=== PATIENT | male | born 1955 | race Caucasian/White ===

== ENCOUNTER → 2017-07-14 08:04 | Outpatient (CLI) | payer MEDICAID, SELFPAY ==
[2017-07-14 09:25] LABS: ALB/GLOB Ratio 0.9 RATIO (0.9-2.4); AST(SGOT) 22 U/L (15-37); Alanine Aminotransfer ALT/SGPT 31 U/L (16-61); Albumin, Serum 3.3 g/dL (3.2-5.0); Alkaline Phosphatase 125 U/L (45-117); Anion Gap 9 (5-15); BUN 17 mg/dL (7-18); BUN/Creat Ratio 11.1 RATIO (10-20); Calcium,Total 8.9 mg/dL (8.5-10.1); Chloride 98 mmol/L (98-107); Creatinine, Serum 1.53 mg/dL (0.70-1.30); EST Glomerular Filtration Rate 49 mL/min (>60); Est Glom Filt Rate - Afr Amer 59 mL/min (>60); Globulin 3.6 g/dL (2.2-4.2); Glucose 82 mg/dL (70-110); Potassium 4.2 mmol/L (3.5-5.1); Protein, Total 6.9 g/dL (6.4-8.2); Sodium Level 136 mmol/L (136-145)
== END ==
PROVIDERS: Family Provider Family Medicine; PCP Family Medicine
DX: E89.0 Postprocedural hypothyroidism (principal)
CPT/HCPCS: 36415; 80053

== ENCOUNTER 2017-11-16 00:10 | Observation (INO) | payer MEDICAID, SELFPAY ==
[2017-11-16] VITALS (11 sets, daily range): BP systolic 93–139; BP diastolic 61–97; PULSE 54–94; RESP 14–18; TEMP 36.4–36.9; O2SAT 96–99; BMI 43.7; BMI 42.7
--- NOTE | 2017-11-16 00:45 | RAD_ITS ---
STUDY: X-RAY - LEFT TIBIA AND FIBULA REASON FOR EXAM: Male, 62 years old. Patient fell TECHNIQUE: 4 view(s) of the tibia and fibula were obtained. COMPARISON: None. FINDINGS: A nondisplaced oblique fracture involving the proximal end of the fibula and a large 23 x 4 cm oval-shaped abnormal no abnormal density within the soft tissues in the lateral and medial two thirds of the leg. This may be a hematoma RAD/Tibia & Fibula 2 Views IMPRESSION: A nondisplaced fracture of the proximal shaft of the fibula. A 23 x 4 cm hematoma in the lateral and middle two thirds of the soft tissues of the leg Electronically Signed: Willy Griffin, at 1:29 EDT Tel , Service support ,
[2017-11-16] MEDS: Diphth,Pertuss(Acell),Tet Vac 0.5 ML Vial IM (01:01)
--- NOTE | 2017-11-16 01:16 | CT_ITS ---
STUDY: CT BRAIN WITHOUT CONTRAST REASON FOR EXAM: Male, 62 years old. Altered mental status status post fall RADIATION DOSAGE (If Supplied By Facility): CTDIvol = ( 44.99 ) mGy, DLP = ( 846.73 ) mGycm TECHNIQUE: Transaxial CT imaging of the brain was performed without administration of intravenous contrast material. Individualized dose optimization techniques were used for this CT. COMPARISON: None. FINDINGS: Normal soft tissue structures. Normal calvarium. There is mild moderate cerebral atrophy with widening of the extra-axial spaces and ventricular dilatation. There is mild bilateral periventricular and subcortical white matter hypoattenuation which is symmetric in distribution. Normal basal ganglia and thalami. Normal brainstem. Normal cerebellum. There is no intracranial hemorrhage. There are no findings of an acute ischemic infarction. There is moderate mucoperiosteal thickening of the paranasal sinuses. CT/Brain/Head without Contrast IMPRESSION: 1. No evidence of an acute intracranial abnormality. 2. Mild bilateral periventricular and subcortical white matter chronic small vessel disease with age appropriate cerebral atrophy. 3. Chronic paranasal sinus disease Electronically Signed: Ashok Frye MD at 2:07 EDT Tel , Service support ,
[2017-11-16 01:40] LABS: Absolute Lymphocyte Count 1.65 X10^3/ul (0.83-4.51); Absolute Neutrophil Count 12.6 X10^3/uL (2.0-7.7); Basophil# 0.01 X10^3/uL; Basophil% 0.1 % (0-1); Hematocrit 40.6 % (40-54); Hemoglobin 13.8 g/dl (13.0-16.5); Lymphocyte # 1.65 X10^3/ul (4.0); Lymphocyte % 11.5 % (19-41); Mean Corpuscular Hgb 30.1 pg (27.0-32.0); Mean Corpuscular Volume 88.6 fL (80-94); Mean Platelet Vol. 10.5 fl (6.2-12.0); Monocyte# 0.06 X10^3/uL; Monocyte% 0.4 % (0-10); Neutrophil # 12.59 X10^3/uL (2.7-7.7); Neutrophil % 87.8 % (47-70); Platelet Count 198 K/mm3 (150-450); RBC Distribution Width SD 42.3 fl (35.1-43.9); Red Blood Count 4.58 M/mm3 (4.6-6.2); White Blood Count 14.3 K/mm3 (4.4-11.0)
[2017-11-16 01:43] LABS: International Normalized Ratio 1.1; POSITIVE COUNT NO; POSITIVE DIFFERENTIAL NO; POSITIVE MORPHOLOGY NO; Prothrombin Time (Protime)PT. 13.8 SECONDS (11.7-14.9)
[2017-11-16 01:48] LABS: Anion Gap 10 (5-15); BUN 15 mg/dL (7-18); BUN/Creat Ratio 9.8 RATIO (10-20); Calcium,Total 8.7 mg/dL (8.5-10.1); Chloride 95 mmol/L (98-107); Creatinine, Serum 1.53 mg/dL (0.70-1.30); EST Glomerular Filtration Rate 49 mL/min (>60); Est Glom Filt Rate - Afr Amer 59 mL/min (>60); Estimated Creatinine Clearance 47.81 ml/min; Glucose 122 mg/dL (74-106); Potassium 4.2 mmol/L (3.5-5.1); Sodium Level 131 mmol/L (136-145)
--- NOTE | 2017-11-16 02:43 | ED.VISSUMM ---
- ER Visit Summary Date of Service: 11/16/17 Chief Complaint: [] Left leg pain History of Present Illness: The patient is a 62 M [] reports mechanical fall with immediate left leg pain and inability to ambulate. Patient seems slightly confused and denies hitting his head. Has obvious soft tissue swelling and blistering clearly visible as I enter the room for history and physical examination. Patient reports pain with ambulation however he does not want pain medication at this time. Patient is unsure of his tetanus status. Patient lives alone. Physical Examination: [] Afebrile, vital signs stable. Morbidly obese male no acute distress. Examination of the lower extremity reveals significant hematoma with skin blistering and breakdown on the lateral aspect of the leg. There is tenderness palpation across the tibia/fibula. Pelvis stable. There is no significant knee pain. There is no significant ankle or foot pain. Patient is neurovascularly intact distally. Good distal dorsalis pedis pulse in the left lower extremity. Remainder of exam is unremarkable. Test Results: [] X-rays of the left tibia/fibula reveal proximal fibular fracture. CT of the head negative. CBC, BMP reveal a white blood cell count 14.3. Sodium of 131. Creatinine 1.53. INR 1.1. Emergency Department Course and Treatment: [] Tetanus updated. Treatment Plan: [] Admission for functional decline, wound treatment and evaluation, physical therapy consult, evaluation by orthopedic surgery. Disposition: [] Admit to observation, stable. Impression: [] Left fibula fracture Inability ambulate Left lower extremity soft tissue hematoma with skin blistering This note was generated with [employer]an dictation software. It may contain incorrect words, spelling, and punctuation that were not noted in review of the chart prior to signing ED Disposition - Plan for ED Patient: Chief Complaint: Fall Referrals: Josh Bethea MD [Primary Care Provider] -
--- NOTE | 2017-11-16 03:00 | DT_ITS ---
This patient was seen during an EMR downtime November 17, 2017 - November 24, 2017. This patient may have a combination of paper and electronic documentation or all paper documentation. All documentation is viewable within the e-chart portion of [facility] for each patient visit.
--- NOTE | 2017-11-16 03:07 | PCM.HP.STD ---
Problem List (1) Cellulitis Status: Acute (2) Fracture, fibula Status: Acute (3) HTN (hypertension) Status: Chronic History of Present Illness Date of Admission: 11/16/17 Chief Complaint: Cellulitis The patient is a 62 year old male w/ h/o lower extremity edema, HTN, and CKD III admitted for cellulitis secondary to trauma. Pt had his left leg trapped and when he was trying to walk, he tripped and fall, injuring his left leg. He had dull aching pain with ambulation. Pain was moderate to severe. Pain was constant. he also has a hematoma on his left leg. He had draining blisters in his left leg. Nothing appeared improve the pain. He went to the ED for further evaluation. Past Medical History Past Medical History (Chronic Problems): Chronic Problems HTN (hypertension) (Chronic) Allergies Tetracyclines Allergy (Verified 11/16/17 00:10) Swelling Home Medications: Ambulatory Orders Medication Instructions Recorded Alendronate Sodium 70 mg PO QWEEK 10/23/13 Amiodarone HCl [Cordarone] 200 mg PO DAILY 10/23/13 Calcium Carbonate/Vitamin D3 1 each PO DAILY 10/23/13 [Calcium 500 + D Tablet] Metoprolol Tartrate [Lopressor 50 mg PO BID 10/23/13 (Beta Jaime)] Pravastatin [Pravachol] 20 mg PO QHS 10/23/13 Spironolactone [Aldactone] 25 mg PO BID 10/23/13 Aspirin [Aspirin, Baby] 81 mg PO QHS 11/16/17 Calcium Citrate/Vitamin D3 1 each PO DAILY 11/16/17 [Citracal-Vit D3 200 mg-250 Tab] Indapamide 1.5 mg PO DAILY 11/16/17 Levothyroxine Sodium [Synthroid] 125 mcg PO DAILY 11/16/17 Lives: Alone Smoking Status: Never smoker Tobacco Use: Non-smoker Alcohol: None - *Family History Maternal History Items: No pertinent history Review of Systems Constitutional: Denies: Chills, Fever, Weight Change HEENT: Denies: Head Aches, Sinus Congestion, Sinus Drainage Cardiovascular: Denies: Chest Pain, Palpitations Respiratory: Denies: Cough, Shortness of breath at rest, Sputum production Gastrointestinal: Denies: Abdominal Pain, Nausea, Vomiting Genitourinary: Denies: Dysuria Musculoskeletal: Denies: Joint Pain, Joint Tenderness Skin: Denies: Rash, Wounds Neurological: Denies: Numbness, Tingling, Focal weakness Psychiatric: Denies: Anxiety, Depression, Homicidal Ideations, Suicidal Ideations Hematologic/ Lymphatic: Denies: Easy Bruising, Easy Bleeding VTE Information - Inpt Only VTE Present on Admission: No VTE Mechan Device Prophylaxis: None VTE Pharm Prophylaxis ordered?: No Patient Problems: Active and Suspected Problems Cellulitis (Acute) Fracture, fibula (Acute) - Physical Exam General: Alert, Oriented x3, Cooperative HEENT: Atraumatic, PERRLA, EOMI, Normocephalic Neck: Supple, No JVD, Negative Carotid Bruits Lungs: Clear to auscultation, Normal air movement Cardiovascular: Regular rate, No murmurs Abdomen: Bowel Sounds Present, Soft, Non Tender Extremities: Capillary Refill Less than 3 Seconds, Edema, - - hematoma in the lateral and middle two thirds of the softtissues of the leg Skin: No rashes, No breakdown Musculoskeletal: No Tenderness to Palpation of Joints or Extremities Neurological: Cranial nerves II-XII grossly intact Psych/Mental Status: Normal Affect, Appropriate Vital Signs Temp Pulse Resp BP Pulse Ox 98.5 F 92 17 139/97 H 98 11/16/17 00:11 11/16/17 00:11 11/16/17 00:11 11/16/17 00:11 11/16/17 00:11 Assessment/Plan All Active Problems Cellulitis (Acute) Fracture, fibula (Acute) 62 year old male w/ h/o lower extremity edema, HTN, and CKD III admitted for cellulitis secondary to trauma. 1) Cellulitis: Probably triggered by trauma. Will start cefazolin. Will get wound care. Monitor. 2) Nondisplaced fracture of the proximal shaft of the fibula: Pain controlled. Consulted ortho. Monitor. 3) Hypervolemia hyponatremia: Will start lasix. Monitor.
[2017-11-16] MEDS: 0.9% Normal Saline 1,000 ML 75 ML IV (04:49)
[2017-11-16] MEDS: Cefazolin 1 GM/50 ML BAG IV ×3 (04:49→21:00)
[2017-11-16] MEDS: Levothyroxine 125 MCG Tablet PO (04:50)
[2017-11-16 05:27] LABS: Absolute Lymphocyte Count 0.89 X10^3/ul (0.83-4.51); Absolute Neutrophil Count 11.1 X10^3/uL (2.0-7.7); Basophil# 0.01 X10^3/uL; Basophil% 0.1 % (0-1); Hematocrit 37.5 % (40-54); Hemoglobin 12.9 g/dl (13.0-16.5); Lymphocyte # 0.89 X10^3/ul (4.0); Lymphocyte % 6.8 % (19-41); Mean Corp Hgb Conc 34.4 g/gl (32-36); Mean Corpuscular Volume 90.1 fL (80-94); Mean Platelet Vol. 11.5 fl (6.2-12.0); Monocyte# 1.06 X10^3/uL; Monocyte% 8.1 % (0-10); Neutrophil # 11.14 X10^3/uL (2.7-7.7); Neutrophil % 84.7 % (47-70); Platelet Count 190 K/mm3 (150-450); RBC Distribution Width CV 12.8 % (11.6-14.6); RBC Distribution Width SD 41.7 fl (35.1-43.9); Red Blood Count 4.16 M/mm3 (4.6-6.2); White Blood Count 13.1 K/mm3 (4.4-11.0)
[2017-11-16 05:40] LABS: POSITIVE COUNT NO; POSITIVE DIFFERENTIAL NO; POSITIVE MORPHOLOGY NO
[2017-11-16 05:41] LABS: Anion Gap 9 (5-15); BUN 15 mg/dL (7-18); BUN/Creat Ratio 10.6 RATIO (10-20); Calcium,Total 8.5 mg/dL (8.5-10.1); Chloride 95 mmol/L (98-107); Creatinine, Serum 1.41 mg/dL (0.70-1.30); EST Glomerular Filtration Rate 54 mL/min (>60); Est Glom Filt Rate - Afr Amer 65 mL/min (>60); Estimated Creatinine Clearance 51.88 ml/min; Glucose 113 mg/dL (74-106); Sodium Level 133 mmol/L (136-145)
--- NOTE | 2017-11-16 10:30 | RAD_ITS ---
STUDY: X-RAY - LEFT ANKLE REASON FOR EXAM: Male, 62 years old. Pain and swelling TECHNIQUE: 4 view(s) of the ankle. COMPARISON: None. FINDINGS: The bones are demineralized. Distal tibia and fibula otherwise unremarkable. Normal medial and lateral malleoli. Normal tibiotalar articulation and ankle mortise. Normal visualized talus. Calcaneal heel spurs. The visualized subtalar, talonavicular, calcaneocuboid and tarsal articulations are normal. There is generalized soft tissue swelling and vascular calcifications suggest underlying diabetes. RAD/Ankle min 3 Views IMPRESSION: Demineralization of the osseous structures without demonstrated fracture. However, there is diffuse soft tissue swelling and induration of the soft tissues which suggests there may be an occult injury. Consider further evaluation with CT or MRI. Induration of the soft tissues suggests cellulitis or other inflammatory process. Vascular calcifications suggest underlying diabetes Calcaneal spurs Electronically Signed: Chaim Caldwell MD at 11:44 EDT , Service support ,
[2017-11-16] MEDS: Metoprolol Tartrate 50 MG Tablet PO ×2 (10:38→21:00)
[2017-11-16] MEDS: oxyCODONE 5 MG Tablet PO (10:39)
[2017-11-16] MEDS: Indapamide 2.5 MG Tablet 1.25 MG PO (10:43)
[2017-11-16] MEDS: Calcium Carb/Vitamin D 1 TABLET Tablet PO (10:43)
[2017-11-16] MEDS: Spironolactone 25 MG Tablet PO ×2 (10:43→21:00)
[2017-11-16 11:11] LABS: Bedside Glucose 79 mg/dL (70-110)
--- NOTE | 2017-11-16 11:42 | NURSING ---
Dr Kidd in the room at this time and gave this RN a verbal order to discontinue the IV fluids at this time.
--- NOTE | 2017-11-16 11:48 | PCM.CONS.GEN ---
Reason for Consult Date of Consultation: 11/16/17 Reason for Consultation: Left leg injury. Requested by Dr. Kidd History of Present Illness: The patient is a 62 year old M with history of hypertension, denies diabetes. On multiple medications presents to the emergency department last night after falling down. Patient denies any syncopal episodes. He denies any loss of consciousness or hitting his head. He states after he fell and twisted his leg he had severe pain in his left knee laterally. Pain was worse with weightbearing. He is 8 out of 10 with weightbearing 0 or 1 out of 10 while resting in bed with head elevated. He was transferred to the floor with out immobilization. He does have noted hematoma over the lateral leg where most of his pain is located. Also has associated hematoma down by the ankle both mostly laterally. Denies ankle pain during our initial encounter but reports pain during examination. Denies any numbness and tingling distally. Patient takes aspirin on a daily basis every evening. Past Medical History Past Medical History (Chronic Problems): Chronic Problems HTN (hypertension) (Chronic) Allergies Tetracyclines Allergy (Verified 11/16/17 00:10) Swelling Home Medications: Ambulatory Orders Medication Instructions Recorded Alendronate Sodium 70 mg PO QWEEK 10/23/13 Amiodarone HCl [Cordarone] 200 mg PO DAILY 10/23/13 Calcium Carbonate/Vitamin D3 1 each PO DAILY 10/23/13 [Calcium 500 + D Tablet] Metoprolol Tartrate [Lopressor 50 mg PO BID 10/23/13 (Beta Jaime)] Spironolactone [Aldactone] 25 mg PO BID 10/23/13 Aspirin [Aspirin, Baby] 81 mg PO QHS 11/16/17 Atorvastatin Calcium [Lipitor] 20 mg PO QHS 11/16/17 Calcium Citrate/Vitamin D3 1 each PO DAILY 11/16/17 [Citracal-Vit D3 200 mg-250 Tab] Indapamide 1.25 mg PO DAILY 11/16/17 Levothyroxine Sodium [Synthroid] 125 mcg PO DAILY 11/16/17 Surgical History: - - carpal tunnel release (R ) Lives: Alone Smoking Status: Never smoker Tobacco Use: Non-smoker Alcohol: None - *Family History Maternal History Items: No pertinent history Review of Systems Constitutional: Denies: Chills, Fever, Weight Change HEENT: Denies: Head Aches, Sinus Congestion, Sinus Drainage Cardiovascular: Denies: Chest Pain, Palpitations Respiratory: Denies: Cough, Shortness of breath at rest, Sputum production Gastrointestinal: Denies: Abdominal Pain, Nausea, Vomiting Genitourinary: Denies: Dysuria Musculoskeletal: Reports: - - See HPI Skin: Denies: Rash, Wounds Neurological: Denies: Numbness, Tingling, Focal weakness Psychiatric: Denies: Anxiety, Depression, Homicidal Ideations, Suicidal Ideations Hematologic/ Lymphatic: Denies: Easy Bruising, Easy Bleeding Patient Problems: Active and Suspected Problems Cellulitis (Acute) Fracture, fibula (Acute) Objective: Left tib-fib x-rays show a spiral proximal fibular fracture with minimal displacement. Left ankle fractures with stress view show well aligned ankle fracture there does not seem to be significant increase in medial clear space with stress view the ankle. No bony ankle fractures are noted. - Physical Exam General: Alert, Oriented x3, Cooperative Extremities: - - Left lower extremity: Patient has notable ecchymosis over the lateral leg. There is an area of eschar already developing proximally which is 3 cm x 3 cm. There are some superficial serous blistering. Over this hematoma mild tension on the skin. Compartments are all soft and supple. Patient demonstrates sensation intact light touch SP/DP/sural/tibial/saphenous nerve distribution. Motor is intact dorsiflexion EHL and plantar flexion. There is tenderness palpation over the medial and lateral ankle with ecchymosis over the lateral ankle. There is significant tenderness palpation over the fibular head. Vital Signs Temp Pulse Resp BP Pulse Ox 97.8 F 80 16 100/71 97 11/16/17 08:43 11/16/17 10:38 11/16/17 08:43 11/16/17 08:43 11/16/17 08:43 Oxygen Delivery Method Room Air Weight: 280 lb 13.903 oz Body Mass Index (BMI) 42.7 Intake and Output for Last 24 Hours 11/14/17 11/15/17 11/16/17 23:59 23:59 23:59 Intake Total 1265 / 1265 Output Total 275 / 275 Balance 990 / 990 Laboratory Tests Past 24 Hrs 11/16/17 11/16/17 04:55 04:55 WBC 13.1 H RBC 4.16 L Hgb 12.9 L Hct 37.5 L MCV 90.1 MCH 31.0 MCHC 34.4 RDW 12.8 RDW Differential 41.7 Plt Count 190 MPV 11.5 Immature Gran % (Auto) 0.300 Neut % (Auto) 84.7 H Lymph % (Auto) 6.8 L [place] % (Auto) 8.1 Eos % (Auto) 0.0 Baso % (Auto) 0.1 Absolute Neuts (auto) 11.1 H Absolute Lymphs (auto) 0.89 Total Counted Not Reportable Sodium 133 L Potassium 4.0 Chloride 95 L Carbon Dioxide 29.0 Anion Gap 9 BUN 15 Creatinine 1.41 H Estim Creat Clear Calc 51.88 Est GFR (MDRD) Af Amer 65 Est GFR (MDRD) Non-Af 54 L BUN/Creatinine Ratio 10.6 Glucose 113 H Calcium 8.5 POC Glucose 11/16/17 11:07 POC Glucose 79 Assessment/Plan All Active Problems Cellulitis (Acute) Fracture, fibula (Acute) 1. Left proximal fibular fracture 2. Left ankle sprain 3. Left leg hematoma with superficial blistering At this time I discussed treatment options with the patient. Based on his severe pain with weightbearing I placed the patient in the well-padded splint and recommended nonoperative treatment. Ankle radiographs do not reveal significant ankle or syndesmosis injury. Patient's was split anteriorly so that wound care can monitor the skin on a daily basis. We will consult wound care for management of the superficial blisters. I recommended the patient proceed with aggressive ice and elevation with nonweightbearing on the left lower extremity and follow-up in the office in 2 weeks for repeat radiographs. Patient should have tib-fib and ankle radiographs in the office. Patient states that he knows who is done surgery on him in the past and request follow-up with him. 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 [facility] Office:
[2017-11-16 13:01] LABS: Hemoglobin A1c 5.4 % (4.2-6.3)
--- NOTE | 2017-11-16 13:03 | PCM.PN.HOSP ---
Patient Problems: Active and Suspected Problems Cellulitis (Acute) Fracture, fibula (Acute) Subjective: Patient was seen and examined. No new complaints. Pain is fairly controlled. Seen by orthopedics, splint to be placed. History of hypercalcemia leading to osteoporosis, on bisphosphonate Objective: Physical Exam General: Alert, Oriented x3, Cooperative, obese, not pale no jaundice HEENT: Atraumatic, PERRLA, EOMI, Normocephalic Neck: Supple, No JVD, Negative Carotid Bruits Lungs: Clear to auscultation, Normal air movement Cardiovascular: Regular rate, No murmurs Abdomen: Bowel Sounds Present, Soft, Non Tender Extremities: Capillary Refill Less than 3 Seconds, Edema, - - hematoma in the lateral and middle two thirds of the soft tissues of the leg, left lower extremity is swollen than right Skin: No rashes, No breakdown Musculoskeletal: No Tenderness to Palpation of Joints or Extremities Neurological: Cranial nerves II-XII grossly intact Psych/Mental Status: Normal Affect, Appropriate Vitals/I&O's: Vital Signs Temp Pulse Resp BP Pulse Ox 97.8 F 80 16 100/71 97 11/16/17 08:43 11/16/17 10:38 11/16/17 08:43 11/16/17 08:43 11/16/17 08:43 Oxygen Delivery Method Room Air Weight: 127.4 kg Body Mass Index (BMI) 42.7 Intake and Output for Last 24 Hours 11/14/17 11/15/17 11/16/17 23:59 23:59 23:59 Intake Total 1265 / 1265 Output Total 275 / 275 Balance 990 / 990 Laboratory Results 11/16/17 04:55: WBC 13.1 H, RBC 4.16 L, Hgb 12.9 L, Hct 37.5 L, MCV 90.1, MCH 31.0, MCHC 34.4, RDW 12.8, RDW Differential 41.7, Plt Count 190, MPV 11.5, Immature Gran % (Auto) 0.300, Neut % (Auto) 84.7 H, Lymph % (Auto) 6.8 L, [place] % (Auto) 8.1, Eos % (Auto) 0.0, Baso % (Auto) 0.1, Absolute Neuts (auto) 11.1 H, Absolute Lymphs (auto) 0.89, Total Counted Not Reportable 11/16/17 04:55: Sodium 133 L, Potassium 4.0, Chloride 95 L, Carbon Dioxide 29.0, Anion Gap 9, BUN 15, Creatinine 1.41 H, Estim Creat Clear Calc 51.88, Est GFR (MDRD) Af Amer 65, Est GFR (MDRD) Non-Af 54 L, BUN/Creatinine Ratio 10.6, Glucose 113 H, Calcium 8.5 11/16/17 04:55: Hemoglobin A1c 5.4 11/16/17 11:07: POC Glucose 79 Current Medications Alendronate Sodium (Fosamax) 70 mg PO QWEEK@0600 [facility] Amiodarone HCl (Cordarone) 200 mg PO DAILY@1500 [facility] Calcium/Vitamin D (Os-Alex 500mg + D) 1 tablet PO DAILY [facility] Last Admin: 11/16/17 10:43 Dose: 1 tablet Cefazolin Sodium () 1 gm in 50 mls @ 150 mls/hr IV Q8 [facility] Last Admin: 11/16/17 04:49 Dose: 150 mls/hr Indapamide (Lozol) 1.25 mg PO DAILY [facility] Last Admin: 11/16/17 10:43 Dose: 1.25 mg Levothyroxine Sodium (Synthroid) 125 mcg PO DAILY@0600 [facility] Last Admin: 11/16/17 04:50 Dose: 125 mcg Magnesium Hydroxide (Milk Of Magnesia) 30 ml PO DAILY PRN PRN PRN Reason: Constipation Metoprolol Tartrate (Lopressor (Beta Jaime)) 50 mg PO BID [facility] Last Admin: 11/16/17 10:38 Dose: 50 mg Nutritional Formula (Lactose Free) (Ensure Enlive) 120 ml PO 4X/DAY [facility] Last Admin: 11/16/17 12:15 Dose: Not Given Oxycodone HCl (Oxyir) 5 mg PO Q4H PRN PRN PRN Reason: Moderate Pain (pain scale 4-5) Last Admin: 11/16/17 10:39 Dose: 5 mg Pravastatin Sodium (Pravachol) 20 mg PO QHS [facility] Sodium Chloride () 5 - 30 ml IV UD PRN PRN Reason: SALINE FLUSH Spironolactone (Aldactone) 25 mg PO BID [facility] Last Admin: 11/16/17 10:43 Dose: 25 mg Medical Necessity - Tobacco Use Smoking Status: Never smoker Tobacco Use: Non-smoker Assessment/Plan All Active Problems Cellulitis (Acute) Fracture, fibula (Acute) 62 year old male with hypertension, CKD III admitted for cellulitis secondary to trauma. 1. Cellulitis, skin tears secondary to trauma, underlyimg hematoma, no sepsis, present on admission, continue cefazolin for now, will get wound care involved 2. Nondisplaced fracture of the proximal shaft of the fibula, traumatic fracture, pain is controlled, orthopedics consulted, status post splint by orthopedics. 3. 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 Osteoporosis, on bisphosphonates and vitamin D 5. Hypertension, controlled, continue with home medication 6. DT prophylaxis with SCDs -and has hematoma in the left lower extremity Code Visit Inpatient E&M: 99983 Subs Hosp L2
[2017-11-16] MEDS: Amiodarone 200 MG Tablet PO (14:27)
[2017-11-16] MEDS: Alendronate Sodium 70 MG Tablet PO (14:27)
--- NOTE | 2017-11-16 17:39 | NURSING ---
patient up in the chair at this time. will apply SCD to right leg when he gets back in bed.
[2017-11-16] MEDS: 0.9% NaCl Peripheral Flush Adult/Peds IV (21:00)
[2017-11-16] MEDS: Pravastatin 20 MG Tablet PO (21:00)
--- NOTE | 2017-11-16 23:18 | CPS ---
Pt complained that BiPAP is too loud and that his mask is more comfortable at home. Pt also stated that no one was available to bring in his home unit. This [employer] DEPARTMENT MANAGER adjusted mask to get leak down to 9. These are his home settings. Patient decided not to wear BiPAP at this time stating he would not be able to sleep with the noise.
[2017-11-17 03:00] VITALS: BP 88/60; PULSE 86; RESP 16; TEMP 36.6; O2SAT 96
[2017-11-17 04:15] VITALS: BP 92/55; PULSE 83; RESP 16; TEMP 36.6; O2SAT 98
[2017-11-20 16:21] LABS: Absolute Neutrophil Count 4.3 X10^3/uL (2.0-7.7); Basophil% 0.4 % (0-1); Eosinophils% 1.6 % (0-5); Hematocrit 33.6 % (40-54); Hemoglobin 11.2 g/dl (13.0-16.5); Lymphocyte # 1.33 X10^3/ul (4.0); Lymphocyte % 19.7 % (19-41); Mean Corp Hgb Conc 33.3 g/gl (32-36); Mean Corpuscular Hgb 30.7 pg (27.0-32.0); Mean Corpuscular Volume 92.1 fL (80-94); Mean Platelet Vol. 12.6 fl (6.2-12.0); Monocyte% 14.4 % (0-10); Neutrophil # 4.31 X10^3/uL (2.7-7.7); Neutrophil % 63.9 % (47-70); POSITIVE COUNT NO; POSITIVE DIFFERENTIAL NO; POSITIVE MORPHOLOGY NO; Platelet Count 130 K/mm3 (150-450); RBC Distribution Width CV 13.1 % (11.6-14.6); RBC Distribution Width SD 42.7 fl (35.1-43.9); Red Blood Count 3.65 M/mm3 (4.6-6.2); White Blood Count 6.8 K/mm3 (4.4-11.0)
[2017-11-20 16:22] LABS: Absolute Lymphocyte Count 1.33 X10^3/ul (0.83-4.51); Basophil# 0.03 X10^3/uL; Eosinophil# 0.11 X10^3/uL; Monocyte# 0.97 X10^3/uL
--- NOTE | 2017-11-25 11:02 | PCM.DC.SUM ---
Discharge Date and Diagnosis Date of Admission: 11/16/17 Date of Discharge: 11/19/17 - Primary Discharge Diagnosis #1 proximal fibular [id number] to osteoporosis #2 left lower leg hematoma secondary to fall with trauma #3 chronic kidney disease stage III secondary to hypertension #4 hypertension #5 chronic hypoxic respiratory failure secondary to COPD #6 COPD #7 obstructive sleep apnea #8 left ankle sprain - Secondary Discharge Diagnosis Chronic Problems HTN (hypertension) (Chronic) Hospital Course and Treatment Operations: None Procedures: None Summary of Care Provided: The patient is a 62 year old M who was seen in the emergency room at [facility] after sustaining a fall at home and becoming trapped in between the wall and his commode with his leg caught in between this area. Patient was brought to the emergency room for evaluation, workup in the emergency room showed the patient have a proximal fibular fracture and hematoma of the left lower leg. Patient was admitted to [facility], he was nonweightbearing was seen by PT and OT, he was also seen by orthopedic surgery who recommended nonweightbearing on the left leg. Due to the patient's debility, it was felt beneficial for the patient to be placed in a snf facility at the time of discharge from the hospital here for further rehab. Patient agreed. On 11/19/17, patient was seen and examined and felt to be in stable condition for discharge to a local extended care facility for further longterm Medications: Medications to take at Discharge Alendronate Sodium 70 mg PO QWEEK 10/23/13 Amiodarone HCl [Cordarone] 200 mg PO DAILY 10/23/13 Calcium Carbonate/Vitamin D3 [Calcium 500 + D Tablet] 1 each PO DAILY 10/23/13 Metoprolol Tartrate [Lopressor (Beta Jaime)] 50 mg PO BID 10/23/13 Spironolactone [Aldactone] 25 mg PO BID 10/23/13 Aspirin [Aspirin, Baby] 81 mg PO QHS 11/16/17 Atorvastatin Calcium [Lipitor] 20 mg PO QHS 11/16/17 Calcium Citrate/Vitamin D3 [Citracal-Vit D3 200 mg-250 Tab] 1 each PO DAILY 11/16/17 Indapamide 1.25 mg PO DAILY 11/16/17 Levothyroxine Sodium [Synthroid] 125 mcg PO DAILY 11/16/17 Primary Care Physician: Josh Bethea MD [Primary Care Provider] - Disposition: Senior Living facility Minutes spent on discharge:: 35 Patient Condition:: Stable Medical Necessity - Tobacco Use Smoking Status: Never smoker Tobacco Use: Non-smoker Meaningful Use Info Meaningful Use Diagnoses (Choose all that apply): None applicable Code Visit OBSV E&M: 23550 Observation care discharge
--- NOTE | 2017-11-25 11:13 | DS.PCM_ITS ---
Discharge Date and Diagnosis Date of Admission: 11/16/17 Date of Discharge: 11/19/17 - Primary Discharge Diagnosis #1 proximal fibular [id number] to osteoporosis #2 left lower leg hematoma secondary to fall with trauma #3 chronic kidney disease stage III secondary to hypertension #4 hypertension #5 chronic hypoxic respiratory failure secondary to COPD #6 COPD #7 obstructive sleep apnea #8 left ankle sprain - Secondary Discharge Diagnosis Chronic Problems HTN (hypertension) (Chronic) Hospital Course and Treatment Operations: None Procedures: None Summary of Care Provided: The patient is a 62 year old M who was seen in the emergency room at [facility] after sustaining a fall at home and becoming trapped in between the wall and his commode with his leg caught in between this area. Patient was brought to the emergency room for evaluation, workup in the emergency room showed the patient have a proximal fibular fracture and hematoma of the left lower leg. Patient was admitted to [facility], he was nonweightbearing was seen by PT and OT, he was also seen by orthopedic surgery who recommended nonweightbearing on the left leg. Due to the patient's debility , it was felt beneficial for the patient to be placed in a penitentiary facility at the time of discharge from the hospital here for further rehab. Patient agreed. On 11/19/17, patient was seen and examined and felt to be in stable condition for discharge to a local extended care facility for further alf Medications: Medications to take at Discharge Alendronate Sodium 70 mg PO QWEEK 10/23/13 Amiodarone HCl [Cordarone] 200 mg PO DAILY 10/23/13 Calcium Carbonate/Vitamin D3 [Calcium 500 + D Tablet] 1 each PO DAILY 10/23/13 Metoprolol Tartrate [Lopressor (Beta Jaime)] 50 mg PO BID 10/23/13 Spironolactone [Aldactone] 25 mg PO BID 10/23/13 Aspirin [Aspirin, Baby] 81 mg PO QHS 11/16/17 Atorvastatin Calcium [Lipitor] 20 mg PO QHS 11/16/17 Calcium Citrate/Vitamin D3 [Citracal-Vit D3 200 mg-250 Tab] 1 each PO DAILY 08/31 Indapamide 1.25 mg PO DAILY 11/16/17 Levothyroxine Sodium [Synthroid] 125 mcg PO DAILY 11/16/17 Primary Care Physician: Josh Bethea MD [Primary Care Provider] - Disposition: Longterm facility Minutes spent on discharge:: 35 Patient Condition:: Stable Medical Necessity - Tobacco Use Smoking Status: Never smoker Tobacco Use: Non-smoker Meaningful Use Info Meaningful Use Diagnoses (Choose all that apply): None applicable Code Visit OBSV E&M: 34525 Observation care discharge
[2017-11-26 14:54] LABS: Anion Gap 8 (5-15); BUN 12 mg/dL (7-18); BUN/Creat Ratio 9.6 RATIO (10-20); Calcium,Total 8.3 mg/dL (8.5-10.1); Chloride 96 mmol/L (98-107); Creatinine, Serum 1.25 mg/dL (0.70-1.30); EST Glomerular Filtration Rate 62 mL/min (>60); Est Glom Filt Rate - Afr Amer 75 mL/min (>60); Estimated Creatinine Clearance 58.52 ml/min; Glucose 86 mg/dL (74-106); Sodium Level 135 mmol/L (136-145)
== END 2017-11-19 11:00 | disposition home or self-care (01) ==
LOC: ED 01:14 → PCU 03:01
PROVIDERS: Admitting Provider Internal Medicine; Emergency Provider Emergency Medicine; Family Provider Family Medicine; PCP Family Medicine; Visit Provider Internal Medicine
DX: M80.862A Other osteoporosis with current pathological fracture, left lower leg, initial encounter for fracture (principal); S80.12XA Contusion of left lower leg, initial encounter; S93.402A Sprain of unspecified ligament of left ankle, initial encounter; L03.116 Cellulitis of left lower limb; I12.9 Hypertensive chronic kidney disease with stage 1 through stage 4 chronic kidney disease, or unspecified chronic kidney disease; N18.3 Chronic kidney disease, stage 3 (moderate); J96.11 Chronic respiratory failure with hypoxia; J44.9 Chronic obstructive pulmonary disease, unspecified; G47.33 Obstructive sleep apnea (adult) (pediatric); E66.01 Morbid (severe) obesity due to excess calories; Z68.41 Body mass index [BMI] 40.0-44.9, adult; E78.5 Hyperlipidemia, unspecified; E87.70 Fluid overload, unspecified; E87.1 Hypo-osmolality and hyponatremia; Z23 Encounter for immunization; Z79.82 Long term (current) use of aspirin; Z79.899 Other long term (current) drug therapy; W18.11XA Fall from or off toilet without subsequent striking against object, initial encounter; Y93.89 Activity, other specified; Y92.002 Bathroom of unspecified non-institutional (private) residence as the place of occurrence of the external cause; Y99.8 Other external cause status
CPT/HCPCS: 29515; 36415; 70450; 73590; 73610; 80048; 82962; 83036; 85025; 85610; 90715; 94002; 96361; 96365; 96366; 96367; 97110; 97162; 97166; 97530; 97802; 99218; 99285; J7030; J7040; A4216; G0378

== ENCOUNTER → 2018-02-02 11:38 | Outpatient (CLI) | payer MEDICAID, SELFPAY ==
[2018-02-02 13:33] LABS: Prealbumin 12.9 mg/dL (20.0-40.0)
== END ==
PROVIDERS: Family Provider Family Medicine; PCP Family Medicine; Visit Provider Internal Medicine
DX: S81.802A Unspecified open wound, left lower leg, initial encounter (principal)
CPT/HCPCS: 36415; 84134

== ENCOUNTER → 2018-02-12 09:57 | Outpatient (CLI) | payer OTHER, SELFPAY ==
[2018-02-12 11:01] LABS: ALB/GLOB Ratio 0.8 RATIO (0.9-2.4); AST(SGOT) 12 U/L (15-37); Alanine Aminotransfer ALT/SGPT 13 U/L (16-61); Albumin, Serum 2.6 g/dL (3.2-5.0); Alkaline Phosphatase 104 U/L (45-117); Anion Gap 10 (5-15); BUN 6 mg/dL (7-18); BUN/Creat Ratio 4.8 RATIO (10-20); Calcium,Total 8.4 mg/dL (8.5-10.1); Chloride 101 mmol/L (98-107); Creatinine, Serum 1.25 mg/dL (0.70-1.30); EST Glomerular Filtration Rate 62 mL/min (>60); Est Glom Filt Rate - Afr Amer 75 mL/min (>60); Globulin 3.3 g/dL (2.2-4.2); Glucose 103 mg/dL (74-106); Potassium 3.9 mmol/L (3.5-5.1); Protein, Total 5.9 g/dL (6.4-8.2); Sodium Level 135 mmol/L (136-145); Thyroid Stim Hormone (TSH) 1.75 uIU/mL (0.358-3.74)
[2018-02-13 09:04] LABS: PTHIN 61.8 pg/mL (18.4-80.1)
[2018-02-13 09:07] LABS: Vitamin D,25 Hydroxy 50.8 ng/mL (29.95-100.01)
== END ==
PROVIDERS: Family Provider Family Medicine; PCP Family Medicine; Visit Provider Internal Medicine Endocrinology, Diabetes & Metabolism
DX: E89.0 Postprocedural hypothyroidism (principal); E21.1 Secondary hyperparathyroidism, not elsewhere classified; E55.9 Vitamin D deficiency, unspecified
CPT/HCPCS: 36415; 80053; 82306; 83970; 84443

== ENCOUNTER 2018-02-13 11:00 | Outpatient (RCR) | payer OTHER, SELFPAY ==
[2018-01-28 10:34] VITALS: BP 119/71; PULSE 62; RESP 16; TEMP 36.9; BMI 35.7
--- NOTE | 2018-01-28 11:40 | PCM.WC.HP ---
(1) Wound of left lower extremity Status: Acute Current Visit: Yes Code(s): S81.802A - Unspecified open wound, left lower leg, initial encounter Comment: Post debridement/hematoma evacuation. (2) Cellulitis Status: Acute Current Visit: No Code(s): L03.90 - Cellulitis, unspecified History of Present Illness Date of Service: 01/28/18 Chief Complaint: Left lower extremity wound - Delayed healing. History of Wound: Mr. Chauhan is a 62yo with PMH as stated above who presented here due to delayed healing of his left lower extremity wound. Said to have developed a large hematoma after a fall and subsequent fibular fracture. Initially managed in the hospital ( [place] ) for left lower extremity cellulitis and was discharged to a [facility]. At the [facility], he Incision and drainge of the hematoma with subsequent wound vac for 7 days. Since discontinuing the wound vac, he has applied a collagen dressing to the wound. He was recently discharged from the [facility] and plan is to get [facility] however, this has not been established. He feels well otherwise and denies chills, fever, nausea, vomitting or any change in his bowel habit. Past Medical History Past Medical History: Chronic Problems HTN (hypertension) (Chronic) Surgical History: - - carpal tunnel release (R ) Allergies/Adverse Reactions: Allergies Tetracyclines Allergy (Verified 01/28/18 11:01) Swelling Home Medications: Ambulatory Orders Medication Instructions Recorded Alendronate Sodium 70 mg PO QWEEK 10/23/13 Amiodarone HCl [Cordarone] 200 mg PO DAILY 10/23/13 Calcium Carbonate/Vitamin D3 1 each PO DAILY 10/23/13 [Calcium 500 + D Tablet] Metoprolol Tartrate [Lopressor 25 mg PO BID 10/23/13 (Beta Jaime)] Spironolactone [Aldactone] 25 mg PO BID 10/23/13 Aspirin [Aspirin, Baby] 81 mg PO QHS 11/16/17 Atorvastatin Calcium [Lipitor] 20 mg PO QHS 11/16/17 Calcium Citrate/Vitamin D3 1 each PO DAILY 11/16/17 [Citracal-Vit D3 200 mg-250 Tab] Indapamide 1.25 mg PO DAILY 11/16/17 Levothyroxine Sodium [Synthroid] 125 mcg PO DAILY 11/16/17 Omeprazole [Prilosec] 20 mg PO DAILY PRN 01/28/18 Ondansetron HCl [Zofran] 4 mg PO Q8H PRN 01/28/18 Oxycodone [Oxyir] 5 mg PO Q4H PRN PRN 01/28/18 Potassium Chloride [Klor-Con M20] 20 meq PO DAILY 01/28/18 Sennosides/Docusate Sodium [Senna 2 each PO DAILY 01/28/18 Plus Tablet] - Family History Maternal No pertinent history Smoking Status: Never smoker Review of Systems Constitutional: Denies: Anorexia, Malaise, Weakness Eyes: Denies: Pain, Redness HEENT: Denies: Difficulty Hearing, Difficulty Swallowing Cardiovascular: Denies: Chest Pain, Chest Tightness Respiratory: Denies: Cough, Hemoptysis Gastrointestinal: Denies: Abdominal Pain, Hematemesis, Vomiting Skin: Denies: Dryness, Jaundice - Physical Exam Vital Signs Temp Pulse Resp BP 98.4 F 62 16 119/71 01/28/18 10:34 01/28/18 10:34 01/28/18 10:34 01/28/18 10:34 General: Alert, Oriented x3, Cooperative, No apparent distress HEENT: Atraumatic Oral: Moist Mucosa Neck: Supple, No JVD Lungs: Clear to auscultation, Normal air movement Cardiovascular: Regular rate, Regular Rhythm Abdomen: Soft, Non Tender, Obese Extremities: No cyanosis, Edema Skin: Ulcer/ Wound Wound Measurements and Assessment WC - Nurse 1 - General Ulcer Measurement Start: 01/28/18 10:34 Freq: Status: Active Protocol: Activity Type Activity Date Activity User E-Sign Co-Sign Detail Recorded Client Recorded Date Recorded By Document 01/28/18 10:34 [facility] [id number] 01/28/18 10:54 [facility] 01/28/18 10:34 Wound Center Nurse 1 [Ulcer Assessment] 1. L LATERAL LOWER EXTREMITY -Combined with other wound No -Current Size (cm) - Length 13.2 -Current Size (cm) - Width 3.1 -Current Size (cm) - Depth 0.1 -Total Square Cm 40.92 -Photo Taken Yes -Tunneling No -Undermining/Tunneling No -Circular Undermining No -Classification - Thickness Full Thickness without Exposed Support Structure -Exudate Amt Large (67-100%) -Exudate Type Serosanguineous -Wound Margin Fibrotic Scar, Thickened Scar -Granulation Amt Large (67-100%) -Granulation Quality Red -Slough/Fibrin No -Necrosis Amt Medium (34-66%) -Necrotic Tissue Type Adherent Slough -Structure Exposed N/A -Texture (Kirstie-wound Skin Appearance) Assessed -Moisture (Kirstie-wound Skin Appearance Assessed ) -Color (Kirstie-wound Skin Appearance) Hemosiderin Staining -Temperature (Kirstie-wound Skin No Abnormality Appearance) (Pt Warm) -Tenderness on Palpation (Kirstie-wound No Skin Appearance) -Ulcer Cleansing Rinsed/ Irrigated with Saline -Foul Odor after Cleansing No -Anesthetic Used 4% Lidocaine Solution [Edema Assessment] -Lower Limb Edema Present Yes -Right Calf (cm) 40.7 -Right Ankle (cm) 24 -Left Calf (cm) 41 -Left Ankle (cm) 23.4 WC - Nurse 2 - General Ulcer CM Notes Start: 01/28/18 10:34 Freq: Status: Active Protocol: Activity Type Activity Date Activity User E-Sign Co-Sign Detail Recorded Client Recorded Date Recorded By Document 01/28/18 11:28 [id number] 01/28/18 11:38 01/28/18 11:28 Wound Center Nurse 2 [Procedure/Treatment] 1. L LATERAL LOWER EXTREMITY -Time 11:29 -Correct Patient Yes -Correct Side, Site, Position Yes -Correct Procedure Yes -Procedure Performed Yes -Type of Procedure Debridement -Clinical Debridement Subcutaneous -Post Debridement Size (cm) - Length 14.5 -Post Debridement Size (cm) - Width 5.0 -Post Debridement Size (cm) - Depth 0.1 -Total Square Cm 72.50 -Wound/Ulcer Outcome Not Healed -Ulcer Cleansing Rinsed/ Irrigated with Saline -Foul Odor after Cleansing No -Bioengineered Tissue No -Bleeding Controlled with Pressure -Treatment Response Procedure Tolerated Well [See Physician Procedure note for Specifics] Pain Scale: 0-10 Numeric [Pain] -Is Patient Pain Free? Yes Musculoskeletal: No Muscle Wasting Neurological: Cranial nerves II-XII grossly intact Psych/Mental Status: Normal Affect Debridement Note Post-Debridement Measurements/Treatment WC - Nurse 2 - General Ulcer CM Notes Start: 01/28/18 10:34 Freq: Status: Active Protocol: Activity Type Activity Date Activity User E-Sign Co-Sign Detail Recorded Client Recorded Date Recorded By Document 01/28/18 11:28 [id number] 01/28/18 11:38 01/28/18 11:28 Wound Center Nurse 2 1. L LATERAL LOWER EXTREMITY -Time 11:29 -Correct Patient Yes -Correct Side, Site, Position Yes -Correct Procedure Yes -Procedure Performed Yes -Type of Procedure Debridement -Clinical Debridement Subcutaneous -Post Debridement Size (cm) - Length 14.5 -Post Debridement Size (cm) - Width 5.0 -Post Debridement Size (cm) - Depth 0.1 -Total Square Cm 72.50 -Wound/Ulcer Outcome Not Healed -Ulcer Cleansing Rinsed/ Irrigated with Saline -Foul Odor after Cleansing No -Bioengineered Tissue No -Bleeding Controlled with Pressure -Treatment Response Procedure Tolerated Well Pain Scale: 0-10 Numeric Is Patient Pain Free? Yes Wound debrided: Left lower extremity ( lateral ) Wound Grade/Stage: Stage II Type of Debridement: Excisional debridement Anesthesia Used: 4% Lidocaine Solution Depth: Down to and including healthy tissue, in the subcutaneous layer Percentage of wound debrided: 100 Instrument Used: 7mm curette Tissue Removed: Slough and devitalized tissue Severity: Fat Layer Exposed Amount of bleeding with debridement: Mild Bleeding Controlled with: Pressure Patient tolerated procedure well Assessment/Plan Active Problems Wound of left lower extremity (Acute) Post debridement/hematoma evacuation. Assessment: Left lower extremity wound post I and D with delayed healing. Plan: Debridement done as documented above. Procedure was well-tolerated. Vascular and venous studies ordered. Prealbumin also ordered. Fibracol daily with Adaptic over top. Single layer Tubigrip for edema management. Advised to increase protein intake and also take protein supplements. Elevate lower extremity when seated in bed. He was asked to come in with his sister tomorrow for education on wound change. Arrangements also been made for home health care. All his questions were answered and he was asked to call with any further questions or concerns. Follow-up in 1 week. This note was generated with [employer] dictation software. It may contain incorrect words, spelling, and punctuation that were not noted in checking the note before signing.
--- NOTE | 2018-01-28 11:46 | HP.PCM_ITS ---
(1) Wound of left lower extremity Status: Acute Current Visit: Yes Code(s): S81.802A - Unspecified open wound , left lower leg, initial encounter Comment: Post debridement/hematoma evacuation. (2) Cellulitis Status: Acute Current Visit: No Code(s): L03.90 - Cellulitis, unspecified History of Present Illness Date of Service: 01/28/18 Chief Complaint: Left lower extremity wound - Delayed healing. History of Wound: Mr. Chauhan is a 62yo with PMH as stated above who presented here due to delayed healing of his left lower extremity wound. Said to have developed a large hematoma after a fall and subsequent fibular fracture. Initially managed in the hospital ( [place] ) for left lower extremity cellulitis and was discharged to a [facility]. At the [facility], he Incision and drainge of the hematoma with subsequent wound vac for 7 days. Since discontinuing the wound vac, he has applied a collagen dressing to the wound. He was recently discharged from the [facility] and plan is to get [facility] however, this has not been established. He feels well otherwise and denies chills, fever, nausea, vomitting or any change in his bowel habit. Past Medical History Past Medical History: Chronic Problems HTN (hypertension) (Chronic) Surgical History: - - carpal tunnel release (R ) Allergies/Adverse Reactions: Allergies Tetracyclines Allergy (Verified 01/28/18 11:01) Swelling Home Medications: Ambulatory Orders Medication Instructions Recorded Alendronate Sodium 70 mg PO QWEEK 10/23/13 Amiodarone HCl [Cordarone] 200 mg PO DAILY 10/23/13 Calcium Carbonate/Vitamin D3 1 each PO DAILY 10/23/13 [Calcium 500 + D Tablet] Metoprolol Tartrate [Lopressor 25 mg PO BID 10/23/13 (Beta Jaime)] Spironolactone [Aldactone] 25 mg PO BID 10/23/13 Aspirin [Aspirin, Baby] 81 mg PO QHS 11/16/17 Atorvastatin Calcium [Lipitor] 20 mg PO QHS 11/16/17 Calcium Citrate/Vitamin D3 1 each PO DAILY 11/16/17 [Citracal-Vit D3 200 mg-250 Tab] Indapamide 1.25 mg PO DAILY 11/16/17 Levothyroxine Sodium [Synthroid] 125 mcg PO DAILY 11/16/17 Omeprazole [Prilosec] 20 mg PO DAILY PRN 01/28/18 Ondansetron HCl [Zofran] 4 mg PO Q8H PRN 01/28/18 Oxycodone [Oxyir] 5 mg PO Q4H PRN PRN 01/28/18 Potassium Chloride [Klor-Con M20] 20 meq PO DAILY 01/28/18 Sennosides/Docusate Sodium [Senna 2 each PO DAILY 01/28/18 Plus Tablet] - Family History Maternal No pertinent history Smoking Status: Never smoker Review of Systems Constitutional: Denies: Anorexia, Malaise, Weakness Eyes: Denies: Pain, Redness HEENT: Denies: Difficulty Hearing, Difficulty Swallowing Cardiovascular: Denies: Chest Pain, Chest Tightness Respiratory: Denies: Cough, Hemoptysis Gastrointestinal: Denies: Abdominal Pain, Hematemesis, Vomiting Skin: Denies: Dryness, Jaundice - Physical Exam Vital Signs Temp Pulse Resp BP 98.4 F 62 16 119/71 01/28/18 10:34 01/28/18 10:34 01/28/18 10:34 01/28/18 10:34 General: Alert, Oriented x3, Cooperative, No apparent distress HEENT: Atraumatic Oral: Moist Mucosa Neck: Supple, No JVD Lungs: Clear to auscultation, Normal air movement Cardiovascular: Regular rate, Regular Rhythm Abdomen: Soft, Non Tender, Obese Extremities: No cyanosis, Edema Skin: Ulcer/ Wound Wound Measurements and Assessment WC - Nurse 1 - General Ulcer Measurement Start: 01/28/18 10:34 Freq: Status: Active Protocol: Activity Type Activity Date Activity User E-Sign Co-Sign Detail Recorded Client Recorded Date Recorded By Document 01/28/18 10:34 [facility] [id number] 01/28/18 10:54 [facility] 01/28/18 10:34 Wound Center Nurse 1 [Ulcer Assessment] 1. L LATERAL LOWER EXTREMITY -Combined with other wound No -Current Size (cm) - Length 13.2 -Current Size (cm) - Width 3.1 -Current Size (cm) - Depth 0.1 -Total Square Cm 40.92 -Photo Taken Yes -Tunneling No -Undermining/Tunneling No -Circular Undermining No -Classification - Thickness Full Thickness without Exposed Support Structure -Exudate Amt Large (67-100%) -Exudate Type Serosanguineous -Wound Margin Fibrotic Scar, Thickened Scar -Granulation Amt Large (67-100%) -Granulation Quality Red -Slough/Fibrin No -Necrosis Amt Medium (34-66%) -Necrotic Tissue Type Adherent Slough -Structure Exposed N/A -Texture (Kirstie-wound Skin Appearance) Assessed -Moisture (Kirstie-wound Skin Appearance Assessed ) -Color (Kirstie-wound Skin Appearance) Hemosiderin Staining -Temperature (Kirstie-wound Skin No Abnormality Appearance) (Pt Warm) -Tenderness on Palpation (Kirstie-wound No Skin Appearance) -Ulcer Cleansing Rinsed/ Irrigated with Saline -Foul Odor after Cleansing No -Anesthetic Used 4% Lidocaine Solution [Edema Assessment] -Lower Limb Edema Present Yes -Right Calf (cm) 40.7 -Right Ankle (cm) 24 -Left Calf (cm) 41 -Left Ankle (cm) 23.4 WC - Nurse 2 - General Ulcer CM Notes Start: 01/28/18 10:34 Freq: Status: Active Protocol: Activity Type Activity Date Activity User E-Sign Co-Sign Detail Recorded Client Recorded Date Recorded By Document 01/28/18 11:28 [id number] 01/28/18 11:38 01/28/18 11:28 Wound Center Nurse 2 [Procedure/Treatment] 1. L LATERAL LOWER EXTREMITY -Time 11:29 -Correct Patient Yes -Correct Side, Site, Position Yes -Correct Procedure Yes -Procedure Performed Yes -Type of Procedure Debridement -Clinical Debridement Subcutaneous -Post Debridement Size (cm) - Length 14.5 -Post Debridement Size (cm) - Width 5.0 -Post Debridement Size (cm) - Depth 0.1 -Total Square Cm 72.50 -Wound/Ulcer Outcome Not Healed -Ulcer Cleansing Rinsed/ Irrigated with Saline -Foul Odor after Cleansing No -Bioengineered Tissue No -Bleeding Controlled with Pressure -Treatment Response Procedure Tolerated Well [See Physician Procedure note for Specifics] Pain Scale: 0-10 Numeric [Pain] -Is Patient Pain Free? Yes Musculoskeletal: No Muscle Wasting Neurological: Cranial nerves II-XII grossly intact Psych/Mental Status: Normal Affect Debridement Note Post-Debridement Measurements/Treatment WC - Nurse 2 - General Ulcer CM Notes Start: 01/28/18 10:34 Freq: Status: Active Protocol: Activity Type Activity Date Activity User E-Sign Co-Sign Detail Recorded Client Recorded Date Recorded By Document 01/28/18 11:28 [id number] 01/28/18 11:38 01/28/18 11:28 Wound Center Nurse 2 1. L LATERAL LOWER EXTREMITY -Time 11:29 -Correct Patient Yes -Correct Side, Site, Position Yes -Correct Procedure Yes -Procedure Performed Yes -Type of Procedure Debridement -Clinical Debridement Subcutaneous -Post Debridement Size (cm) - Length 14.5 -Post Debridement Size (cm) - Width 5.0 -Post Debridement Size (cm) - Depth 0.1 -Total Square Cm 72.50 -Wound/Ulcer Outcome Not Healed -Ulcer Cleansing Rinsed/ Irrigated with Saline -Foul Odor after Cleansing No -Bioengineered Tissue No -Bleeding Controlled with Pressure -Treatment Response Procedure Tolerated Well Pain Scale: 0-10 Numeric Is Patient Pain Free? Yes Wound debrided: Left lower extremity ( lateral ) Wound Grade/Stage: Stage II Type of Debridement: Excisional debridement Anesthesia Used: 4% Lidocaine Solution Depth: Down to and including healthy tissue, in the subcutaneous layer Percentage of wound debrided: 100 Instrument Used: 7mm curette Tissue Removed: Slough and devitalized tissue Severity: Fat Layer Exposed Amount of bleeding with debridement: Mild Bleeding Controlled with: Pressure Patient tolerated procedure well Assessment/Plan Active Problems Wound of left lower extremity (Acute) Post debridement/hematoma evacuation. Assessment: Left lower extremity wound post I and D with delayed healing. Plan: Debridement done as documented above. Procedure was well-tolerated. Vascular and venous studies ordered. Prealbumin also ordered. Fibracol daily with Adaptic over top. Single layer Tubigrip for edema management. Advised to increase protein intake and also take protein supplements. Elevate lower extremity when seated in bed. He was asked to come in with his sister tomorrow for education on wound change. Arrangements also been made for home health care. All his questions were answered and he was asked to call with any further questions or concerns. Follow-up in 1 week. This note was generated with [employer] dictation software. It may contain incorrect words, spelling, and punctuation that were not noted in checking the note before signing.
[2018-01-29 13:47] VITALS: BP 98/55; PULSE 56; RESP 20; TEMP 36.6; BMI 35.7
[2018-02-04 12:28] VITALS: BP 118/70; PULSE 62; RESP 18; TEMP 36.2; BMI 35.7
--- NOTE | 2018-02-04 12:51 | PCM.WC.PN ---
(1) Wound of left lower extremity Status: Acute Current Visit: Yes Code(s): S81.802A - Unspecified open wound, left lower leg, initial encounter Comment: Post debridement/hematoma evacuation. (2) Cellulitis Status: Acute Current Visit: No Code(s): L03.90 - Cellulitis, unspecified Type of Wound Date of Service: 02/04/18 Chief Complaint: Left lower extremity wound - Delayed healing. History of Wound: Mr. Chauhan is a 62yo with PMH as stated above who presented here due to delayed healing of his left lower extremity wound. Said to have developed a large hematoma after a fall and subsequent fibular fracture. Initially managed in the hospital ( [place] ) for left lower extremity cellulitis and was discharged to a [facility]. At the [facility], he Incision and drainge of the hematoma with subsequent wound vac for 7 days. Since discontinuing the wound vac, he has applied a collagen dressing to the wound. He was recently discharged from the [facility] and plan is to get [facility] however, this has not been established. He feels well otherwise and denies chills, fever, nausea, vomitting or any change in his bowel habit. Progress of Wound: Stable. No new complaints at this time. - Physical Exam Vital Signs Temp Pulse Resp BP 97.1 F L 62 18 118/70 02/04/18 12:28 02/04/18 12:28 02/04/18 12:28 02/04/18 12:28 General: Alert, Oriented x3, Cooperative, No apparent distress HEENT: Atraumatic Oral: Moist Mucosa Lungs: Normal air movement Extremities: No cyanosis, Edema Skin: Ulcer/ Wound Wound Measurements and Assessment WC - Nurse 1 - General Ulcer Measurement Start: 01/28/18 10:34 Freq: Status: Active Protocol: Activity Type Activity Date Activity User E-Sign Co-Sign Detail Recorded Client Recorded Date Recorded By Document 02/04/18 12:28 RB [id number] 02/04/18 12:34 RB 02/04/18 12:28 Wound Center Nurse 1 [Ulcer Assessment] 1. L LATERAL LOWER EXTREMITY -Combined with other wound No -Current Size (cm) - Length 13.5 -Current Size (cm) - Width 4 -Current Size (cm) - Depth 0.2 -Total Square Cm 54.0 -Photo Taken No -Tunneling No -Undermining/Tunneling No -Circular Undermining No -Classification - Thickness Full Thickness without Exposed Support Structure -Exudate Amt Small (1-33%) -Exudate Type Serosanguineous -Wound Margin Thickened & Rolled Under -Granulation Amt Large (67-100%) -Granulation Quality [place] Red -Slough/Fibrin Yes -Necrosis Amt Small (1-33%) -Necrotic Tissue Type Adherent Slough -Structure Exposed N/A -Texture (Kirstie-wound Skin Appearance) Assessed -Moisture (Kirstie-wound Skin Appearance Assessed ) -Color (Kirstie-wound Skin Appearance) Assessed -Temperature (Kirstie-wound Skin No Abnormality Appearance) (Pt Warm) -Tenderness on Palpation (Kirstie-wound No Skin Appearance) -Ulcer Cleansing Rinsed/ Irrigated with Saline -Foul Odor after Cleansing No -Anesthetic Used 4% Lidocaine Solution [Edema Assessment] -Lower Limb Edema Present Yes -Left Calf (cm) 45.5 -Left Ankle (cm) 27.6 Musculoskeletal: No Muscle Wasting Neurological: Cranial nerves II-XII grossly intact Psych/Mental Status: Normal Affect Debridement Note Post-Debridement Measurements/Treatment WC - Nurse 2 - General Ulcer CM Notes Start: 01/28/18 10:34 Freq: Status: Active Protocol: Activity Type Activity Date Activity User E-Sign Co-Sign Detail Recorded Client Recorded Date Recorded By Document 01/28/18 11:28 [id number] 01/28/18 11:38 01/28/18 11:28 Wound Center Nurse 2 1. L LATERAL LOWER EXTREMITY -Time 11:29 -Correct Patient Yes -Correct Side, Site, Position Yes -Correct Procedure Yes -Procedure Performed Yes -Type of Procedure Debridement -Clinical Debridement Subcutaneous -Post Debridement Size (cm) - Length 14.5 -Post Debridement Size (cm) - Width 5.0 -Post Debridement Size (cm) - Depth 0.1 -Total Square Cm 72.50 -Wound/Ulcer Outcome Not Healed -Ulcer Cleansing Rinsed/ Irrigated with Saline -Foul Odor after Cleansing No -Bioengineered Tissue No -Bleeding Controlled with Pressure -Treatment Response Procedure Tolerated Well Pain Scale: 0-10 Numeric Is Patient Pain Free? Yes Wound debrided: Left lower extremity Wound Grade/Stage: Stage III Type of Debridement: Excisional debridement Anesthesia Used: 4% Lidocaine Solution Depth: Down to and including healthy tissue, in the subcutaneous layer Percentage of wound debrided: 100 Instrument Used: 7mm curette Tissue Removed: Slough and devitalized tissue Severity: Fat Layer Exposed Amount of bleeding with debridement: Mild Bleeding Controlled with: Pressure Patient tolerated procedure well Assessment/Plan Active Problems Wound of left lower extremity (Acute) Post debridement/hematoma evacuation. Assessment: Left lower extremity wound post I and D with delayed healing. Plan: Debridement done as documented above. Procedure was well tolerated. Continue Fibracol daily with Adaptic over top. Single layer Tubigrip for edema management for now. Low prealbumin. Premier drinks BID to TID. Yet to get home health, doing his dressing himself now. Hopefully home health tomorrow. Elevate lower extremity when seated in bed. All his questions were answered and he was asked to call with any further questions or concerns. Follow-up in 1 week. This note was generated with [employer] dictation software. It may contain incorrect words, spelling, and punctuation that were not noted in checking the note before signing.
--- NOTE | 2018-02-04 12:55 | PN.PCM_ITS ---
(1) Wound of left lower extremity Status: Acute Current Visit: Yes Code(s): S81.802A - Unspecified open wound , left lower leg, initial encounter Comment: Post debridement/hematoma evacuation. (2) Cellulitis Status: Acute Current Visit: No Code(s): L03.90 - Cellulitis, unspecified Type of Wound Date of Service: 02/04/18 Chief Complaint: Left lower extremity wound - Delayed healing. History of Wound: Mr. Chauhan is a 62yo with PMH as stated above who presented here due to delayed healing of his left lower extremity wound. Said to have developed a large hematoma after a fall and subsequent fibular fracture. Initially managed in the hospital ( [place] ) for left lower extremity cellulitis and was discharged to a [facility]. At the [facility], he Incision and drainge of the hematoma with subsequent wound vac for 7 days. Since discontinuing the wound vac, he has applied a collagen dressing to the wound. He was recently discharged from the [facility] and plan is to get [facility] however, this has not been established. He feels well otherwise and denies chills, fever, nausea, vomitting or any change in his bowel habit. Progress of Wound: Stable. No new complaints at this time. - Physical Exam Vital Signs Temp Pulse Resp BP 97.1 F L 62 18 118/70 02/04/18 12:28 02/04/18 12:28 02/04/18 12:28 02/04/18 12:28 General: Alert, Oriented x3, Cooperative, No apparent distress HEENT: Atraumatic Oral: Moist Mucosa Lungs: Normal air movement Extremities: No cyanosis, Edema Skin: Ulcer/ Wound Wound Measurements and Assessment WC - Nurse 1 - General Ulcer Measurement Start: 01/28/18 10:34 Freq: Status: Active Protocol: Activity Type Activity Date Activity User E-Sign Co-Sign Detail Recorded Client Recorded Date Recorded By Document 02/04/18 12:28 RB [id number] 02/04/18 12:34 RB 02/04/18 12:28 Wound Center Nurse 1 [Ulcer Assessment] 1. L LATERAL LOWER EXTREMITY -Combined with other wound No -Current Size (cm) - Length 13.5 -Current Size (cm) - Width 4 -Current Size (cm) - Depth 0.2 -Total Square Cm 54.0 -Photo Taken No -Tunneling No -Undermining/Tunneling No -Circular Undermining No -Classification - Thickness Full Thickness without Exposed Support Structure -Exudate Amt Small (1-33%) -Exudate Type Serosanguineous -Wound Margin Thickened & Rolled Under -Granulation Amt Large (67-100%) -Granulation Quality [place] Red -Slough/Fibrin Yes -Necrosis Amt Small (1-33%) -Necrotic Tissue Type Adherent Slough -Structure Exposed N/A -Texture (Kirstie-wound Skin Appearance) Assessed -Moisture (Kirstie-wound Skin Appearance Assessed ) -Color (Kirstie-wound Skin Appearance) Assessed -Temperature (Kirstie-wound Skin No Abnormality Appearance) (Pt Warm) -Tenderness on Palpation (Kirstie-wound No Skin Appearance) -Ulcer Cleansing Rinsed/ Irrigated with Saline -Foul Odor after Cleansing No -Anesthetic Used 4% Lidocaine Solution [Edema Assessment] -Lower Limb Edema Present Yes -Left Calf (cm) 45.5 -Left Ankle (cm) 27.6 Musculoskeletal: No Muscle Wasting Neurological: Cranial nerves II-XII grossly intact Psych/Mental Status: Normal Affect Debridement Note Post-Debridement Measurements/Treatment WC - Nurse 2 - General Ulcer CM Notes Start: 01/28/18 10:34 Freq: Status: Active Protocol: Activity Type Activity Date Activity User E-Sign Co-Sign Detail Recorded Client Recorded Date Recorded By Document 01/28/18 11:28 [id number] 01/28/18 11:38 01/28/18 11:28 Wound Center Nurse 2 1. L LATERAL LOWER EXTREMITY -Time 11:29 -Correct Patient Yes -Correct Side, Site, Position Yes -Correct Procedure Yes -Procedure Performed Yes -Type of Procedure Debridement -Clinical Debridement Subcutaneous -Post Debridement Size (cm) - Length 14.5 -Post Debridement Size (cm) - Width 5.0 -Post Debridement Size (cm) - Depth 0.1 -Total Square Cm 72.50 -Wound/Ulcer Outcome Not Healed -Ulcer Cleansing Rinsed/ Irrigated with Saline -Foul Odor after Cleansing No -Bioengineered Tissue No -Bleeding Controlled with Pressure -Treatment Response Procedure Tolerated Well Pain Scale: 0-10 Numeric Is Patient Pain Free? Yes Wound debrided: Left lower extremity Wound Grade/Stage: Stage III Type of Debridement: Excisional debridement Anesthesia Used: 4% Lidocaine Solution Depth: Down to and including healthy tissue, in the subcutaneous layer Percentage of wound debrided: 100 Instrument Used: 7mm curette Tissue Removed: Slough and devitalized tissue Severity: Fat Layer Exposed Amount of bleeding with debridement: Mild Bleeding Controlled with: Pressure Patient tolerated procedure well Assessment/Plan Active Problems Wound of left lower extremity (Acute) Post debridement/hematoma evacuation. Assessment: Left lower extremity wound post I and D with delayed healing. Plan: Debridement done as documented above. Procedure was well tolerated. Continue Fibracol daily with Adaptic over top. Single layer Tubigrip for edema management for now. Low prealbumin. Premier drinks BID to TID. Yet to get home health, doing his dressing himself now. Hopefully home health tomorrow. Elevate lower extremity when seated in bed. All his questions were answered and he was asked to call with any further questions or concerns. Follow-up in 1 week. This note was generated with [employer] dictation software. It may contain incorrect words, spelling, and punctuation that were not noted in checking the note before signing.
[2018-02-12 10:37] VITALS: BP 110/68; PULSE 68; RESP 16; TEMP 36.6; BMI 35.7
--- NOTE | 2018-02-12 11:06 | PCM.WC.PN ---
(1) Wound of left lower extremity Status: Acute Current Visit: Yes Code(s): S81.802A - Unspecified open wound, left lower leg, initial encounter Comment: Post debridement/hematoma evacuation. (2) Cellulitis Status: Acute Current Visit: No Code(s): L03.90 - Cellulitis, unspecified Type of Wound Date of Service: 02/12/18 Chief Complaint: Left lower extremity wound - Delayed healing. History of Wound: Mr. Chauhan is a 62yo with PMH as stated above who presented here due to delayed healing of his left lower extremity wound. Said to have developed a large hematoma after a fall and subsequent fibular fracture. Initially managed in the hospital ( [place] ) for left lower extremity cellulitis and was discharged to a [facility]. At the [facility], he Incision and drainge of the hematoma with subsequent wound vac for 7 days. Since discontinuing the wound vac, he has applied a collagen dressing to the wound. He was recently discharged from the [facility] and plan is to get [facility] however, this has not been established. He feels well otherwise and denies chills, fever, nausea, vomitting or any change in his bowel habit. Progress of Wound: Stable. No new complaints at this time. Compression not properly applied. - Physical Exam Vital Signs Temp Pulse Resp BP 98 F 68 16 110/68 02/12/18 10:37 02/12/18 10:37 02/12/18 10:37 02/12/18 10:37 General: Alert, Oriented x3, Cooperative, No apparent distress HEENT: Atraumatic Oral: Moist Mucosa Neck: Supple Lungs: Normal air movement Abdomen: Non Tender Extremities: No cyanosis, Edema Skin: Ulcer/ Wound Wound Measurements and Assessment WC - Nurse 1 - General Ulcer Measurement Start: 01/28/18 10:34 Freq: Status: Active Protocol: Activity Type Activity Date Activity User E-Sign Co-Sign Detail Recorded Client Recorded Date Recorded By Document 02/12/18 10:37 [facility] [id number] 02/12/18 10:49 [facility] 02/12/18 10:37 Wound Center Nurse 1 [Ulcer Assessment] 1. L LATERAL LOWER EXTREMITY -Combined with other wound No -Current Size (cm) - Length 14.3 -Current Size (cm) - Width 4.3 -Current Size (cm) - Depth 0.1 -Total Square Cm 61.49 -Photo Taken No -Epithelialization Small 1-33% -Tunneling No -Undermining/Tunneling No -Circular Undermining No -Exudate Amt Medium (34-66%) -Exudate Type Serosanguineous -Wound Margin Distinct, Outline Attached -Granulation Amt Large (67-100%) -Granulation Quality Red -Slough/Fibrin Yes -Necrosis Amt Small (1-33%) -Necrotic Tissue Type Adherent Slough -Texture (Kirstie-wound Skin Appearance) Scarring -Moisture (Kirstie-wound Skin Appearance Assessed ) -Color (Kirstie-wound Skin Appearance) Erythema -Temperature (Kirstie-wound Skin No Abnormality Appearance) (Pt Warm) -Tenderness on Palpation (Kirstie-wound No Skin Appearance) -Ulcer Cleansing Rinsed/ Irrigated with Saline -Foul Odor after Cleansing No -Anesthetic Used 4% Lidocaine Solution [Edema Assessment] -Lower Limb Edema Present Yes -Right Calf (cm) 45.5 -Right Ankle (cm) 26.9 -Left Calf (cm) 45.5 -Left Ankle (cm) 25 WC - Nurse 2 - General Ulcer CM Notes Start: 01/28/18 10:34 Freq: Status: Active Protocol: Activity Type Activity Date Activity User E-Sign Co-Sign Detail Recorded Client Recorded Date Recorded By Document 02/12/18 10:56 MW [id number] 02/12/18 11:01 MW 02/12/18 10:56 Wound Center Nurse 2 [Procedure/Treatment] 1. L LATERAL LOWER EXTREMITY -Time 10:56 -Correct Patient Yes -Correct Side, Site, Position Yes -Correct Procedure Yes -Procedure Performed Yes -Type of Procedure Debridement -Clinical Debridement Subcutaneous -Post Debridement Size (cm) - Length 13.5 -Post Debridement Size (cm) - Width 4.7 -Post Debridement Size (cm) - Depth 0.3 -Total Square Cm 63.45 -Wound/Ulcer Outcome Not Healed -Ulcer Cleansing Rinsed/ Irrigated with Saline -Foul Odor after Cleansing No -Bioengineered Tissue No -Bleeding Controlled with Pressure -Treatment Response Procedure Tolerated Well [See Physician Procedure note for Specifics] Pain Scale: 0-10 Numeric [Pain] -Is Patient Pain Free? Yes Musculoskeletal: No Muscle Wasting Neurological: Cranial nerves II-XII grossly intact Psych/Mental Status: Normal Affect Debridement Note Post-Debridement Measurements/Treatment WC - Nurse 2 - General Ulcer CM Notes Start: 01/28/18 10:34 Freq: Status: Active Protocol: Activity Type Activity Date Activity User E-Sign Co-Sign Detail Recorded Client Recorded Date Recorded By Document 01/28/18 11:28 CS [id number] 01/28/18 11:38 CS Document 02/04/18 12:48 MW [id number] 02/04/18 12:51 MW Document 02/12/18 10:56 MW [id number] 02/12/18 11:01 MW 01/28/18 02/04/18 02/12/18 11:28 12:48 10:56 Wound Center Nurse 2 1. L LATERAL LOWER EXTREMITY -Time 11:29 12:49 10:56 -Correct Patient Yes Yes Yes -Correct Side, Site, Position Yes Yes Yes -Correct Procedure Yes Yes Yes -Procedure Performed Yes Yes Yes -Type of Procedure Debridement Debridement Debridement -Clinical Debridement Subcutaneous Subcutaneous Subcutaneous -Post Debridement Size (cm) - Length 14.5 13.0 13.5 -Post Debridement Size (cm) - Width 5.0 4.5 4.7 -Post Debridement Size (cm) - Depth 0.1 0.1 0.3 -Total Square Cm 72.50 58.50 63.45 -Wound/Ulcer Outcome Not Healed Not Healed Not Healed -Ulcer Cleansing Rinsed/ Rinsed/ Rinsed/ Irrigated with Irrigated with Irrigated with Saline Saline Saline -Foul Odor after Cleansing No No No -Bioengineered Tissue No No No -Bleeding Controlled with Pressure Pressure Pressure -Treatment Response Procedure Procedure Procedure Tolerated Well Tolerated Well Tolerated Well Pain Scale: 0-10 Numeric Is Patient Pain Free? Yes Yes Yes Wound debrided: Left lower extremity Wound Grade/Stage: Stage II Type of Debridement: Excisional debridement Anesthesia Used: 4% Lidocaine Solution Depth: Down to and including healthy tissue, in the subcutaneous layer Percentage of wound debrided: 100 Instrument Used: 5mm curette Tissue Removed: Slough and devitalized tissue Severity: Fat Layer Exposed Amount of bleeding with debridement: Mild Bleeding Controlled with: Pressure Patient tolerated procedure well Assessment/Plan Active Problems Wound of left lower extremity (Acute) Post debridement/hematoma evacuation. Assessment: Left lower extremity wound post I and D with delayed healing. Plan: Debridement done as documented above. Procedure was well tolerated. Continue Fibracol daily with Adaptic over top. Been having problems with compression, will switch to surepress for now. yet to have his vascular studies done. Low prealbumin. Premier drinks BID to TID. Elevate lower extremity when seated and in bed. All his questions were answered and he was asked to call with any further questions or concerns. Follow-up in 1 week. This note was generated with [employer] software. It may contain incorrect words, spelling, and punctuation that were not noted in checking the note before signing.
--- NOTE | 2018-02-16 18:22 | LEAS ---
Arterial Study - Arterial Study Arterial Study: This is a 62-year-old male with a lower extremity chronic wound. Suspecting the presence of atherosclerotic peripheral arterial occlusive disease, the patient was brought to the noninvasive vascular laboratory at this time for the purpose of bilateral noninvasive lower extremity arterial assessment. Doppler signal assessment was used to evaluate the pulses at ankle level bilaterally. On the right, the posterior tibial pulse was triphasic. The right dorsalis pedis pulse was biphasic. The left posterior tibial pulse was monophasic. The left dorsalis pedis pulse was biphasic. Segmental limb pressures were obtained bilaterally. The right calf pressure was measured at 233 mmHg. The right ankle pressure, as determined by posterior tibial pulse, could not be determined due to the noncompressibility of the vasculature. The right ankle pressure, as determined by dorsalis pedis pulse, was measured at 182 mmHg. The right digital pressure was measured at 115 mmHg. The left calf pressure was measured at 195 mmHg. The left ankle pressure, as determined by posterior tibial pulse, was measured at 201 mmHg. The left ankle pressure, as determined by dorsalis pedis pulse, could not be determined due to the noncompressibility of the vasculature. The left digital pressure was measured at 99 mmHg. Pulse-volume recordings were obtained bilaterally and segmentally. Waveform amplitudes appeared to be satisfactory at all levels bilaterally, including low thigh, calf, ankle, and digital levels. Resting ankle-brachial indices were calculated bilaterally. The resting right ankle-brachial index was calculated to be 1.49. The resting left ankle-brachial index was calculated to be 1.65. Digital-brachial indices were calculated bilaterally. The right digital-brachial index was calculated to be 0.94. The left digital-brachial index was calculated to be 0.81. Impression: Based upon the findings of this resting noninvasive lower extremity arterial study, there is evidence of arterial calcification in the lower extremities bilaterally. Resting ankle-brachial indices are supra-normal bilaterally, consistent with arterial calcification rendering the arterial tree relatively noncompressible. However, digital-brachial indices are bilaterally normal, suggesting relatively normal arterial perfusion at digital level bilaterally. Clinical correlation is advised.
== END 2018-02-13 23:59 ==
LOC: CVS 11:00
PROVIDERS: Family Provider Family Medicine; PCP Family Medicine; Visit Provider Internal Medicine
DX: I73.9 Peripheral vascular disease, unspecified (principal); S80.12XA Contusion of left lower leg, initial encounter; W19.XXXA Unspecified fall, initial encounter; R60.0 Localized edema; Z79.899 Other long term (current) drug therapy; Z79.82 Long term (current) use of aspirin
CPT/HCPCS: 11042; 11045; 93923; 93970; 99204; 99211; 99212; G0463

== ENCOUNTER → 2018-03-02 13:33 | Outpatient (CLI) | payer OTHER, SELFPAY | PROVIDERS: Family Provider Family Medicine; PCP Family Medicine | DX: N18.3 Chronic kidney disease, stage 3 (moderate) (principal); E77.8 Other disorders of glycoprotein metabolism ==

== ENCOUNTER → 2018-03-04 13:27 | Outpatient (CLI) | payer OTHER, SELFPAY ==
[2018-03-04 14:01] LABS: 24 Hour Urine Protein 153.4 mg/24HR (<150 MG/24HR); 24HR. UA Prot. Total Volume 2475 mL; 24HR. Urine Creatinine 1.61 g/24 HR (0.90-2.10); Urine Protein (24 Hour) 6.2 mg/dL (<11.9)
== END ==
PROVIDERS: Family Provider Family Medicine; PCP Family Medicine
DX: N18.3 Chronic kidney disease, stage 3 (moderate) (principal); E77.8 Other disorders of glycoprotein metabolism
CPT/HCPCS: 81050; 82570; 84156

== ENCOUNTER 2018-03-11 09:45 | Outpatient (RCR) | payer OTHER, SELFPAY ==
[2018-02-14 01:41] VITALS: BP 110/68; PULSE 68; RESP 16; TEMP 36.6
[2018-02-19 11:35] VITALS: BP 127/67; PULSE 63; RESP 18; TEMP 36.4
--- NOTE | 2018-02-19 12:11 | PCM.WC.PN ---
(1) Wound of left lower extremity Status: Acute Current Visit: Yes Code(s): S81.802A - Unspecified open wound, left lower leg, initial encounter Comment: Post debridement/hematoma evacuation. Type of Wound Date of Service: 02/19/18 Chief Complaint: Left lower extremity wound - Delayed healing. History of Wound: Mr. Chauhan is a 62yo with PMH as stated above who presented here due to delayed healing of his left lower extremity wound. Said to have developed a large hematoma after a fall and subsequent fibular fracture. Initially managed in the hospital ( [place] ) for left lower extremity cellulitis and was discharged to a [facility]. At the [facility], he Incision and drainge of the hematoma with subsequent wound vac for 7 days. Since discontinuing the wound vac, he has applied a collagen dressing to the wound. He was recently discharged from the [facility] and plan is to get [facility] however, this has not been established. He feels well otherwise and denies chills, fever, nausea, vomitting or any change in his bowel habit. Progress of Wound: No new complaints. Improperly applied compression. - Physical Exam Vital Signs Temp Pulse Resp BP 97.5 F L 63 18 127/67 H 02/19/18 11:35 02/19/18 11:35 02/19/18 11:35 02/19/18 11:35 General: Alert, Oriented x3, Cooperative, No apparent distress HEENT: Atraumatic Oral: Moist Mucosa Neck: Supple Lungs: Normal air movement Abdomen: Non Tender, Obese Extremities: No cyanosis, Edema Skin: Ulcer/ Wound Wound Measurements and Assessment WC - Nurse 1 - General Ulcer Measurement Start: 02/19/18 11:35 Freq: Status: Active Protocol: Activity Type Activity Date Activity User E-Sign Co-Sign Detail Recorded Client Recorded Date Recorded By Document 02/19/18 11:35 [facility] [id number] 02/19/18 11:46 [facility] 02/19/18 11:35 Wound Center Nurse 1 [Ulcer Assessment] 1. L LATERAL LOWER EXTREMITY -Combined with other wound No -Current Size (cm) - Length 13.9 -Current Size (cm) - Width 4.6 -Current Size (cm) - Depth 0.2 -Total Square Cm 63.94 -Photo Taken No -Epithelialization Small 1-33% -Tunneling No -Undermining/Tunneling No -Circular Undermining No -Exudate Amt Large (67-100%) -Exudate Type Serosanguineous -Wound Margin Distinct, Outline Attached -Granulation Amt Large (67-100%) -Granulation Quality Red -Slough/Fibrin Yes -Necrosis Amt Small (1-33%) -Necrotic Tissue Type Adherent Slough -Texture (Kirstie-wound Skin Appearance) Scarring -Moisture (Kirstie-wound Skin Appearance Assessed ) -Color (Kirstie-wound Skin Appearance) Erythema -Temperature (Kirstie-wound Skin No Abnormality Appearance) (Pt Warm) -Tenderness on Palpation (Kirstie-wound No Skin Appearance) -Ulcer Cleansing Wound Cleanser -Foul Odor after Cleansing No -Anesthetic Used 4% Lidocaine Solution [Edema Assessment] -Lower Limb Edema Present Yes -Right Calf (cm) 45.5 -Right Ankle (cm) 26.8 -Left Calf (cm) 42.2 -Left Ankle (cm) 25 WC - Nurse 2 - General Ulcer CM Notes Start: 02/19/18 11:35 Freq: Status: Active Protocol: Activity Type Activity Date Activity User E-Sign Co-Sign Detail Recorded Client Recorded Date Recorded By Document 02/19/18 11:58 MW [id number] 02/19/18 12:05 MW 02/19/18 11:58 Wound Center Nurse 2 [Procedure/Treatment] 1. L LATERAL LOWER EXTREMITY -Time 11:59 -Correct Patient Yes -Correct Side, Site, Position Yes -Correct Procedure Yes -Procedure Performed Yes -Type of Procedure Debridement -Clinical Debridement Subcutaneous -Post Debridement Size (cm) - Length 13.8 -Post Debridement Size (cm) - Width 4.0 -Post Debridement Size (cm) - Depth 0.2 -Total Square Cm 55.20 -Wound/Ulcer Outcome Not Healed -Ulcer Cleansing Rinsed/ Irrigated with Saline -Foul Odor after Cleansing No -Bioengineered Tissue No -Bleeding Controlled with Pressure -Treatment Response Procedure Tolerated Well [See Physician Procedure note for Specifics] Pain Scale: 0-10 Numeric [Pain] -Is Patient Pain Free? Yes Musculoskeletal: No Muscle Wasting Neurological: Cranial nerves II-XII grossly intact Psych/Mental Status: Normal Affect Debridement Note Post-Debridement Measurements/Treatment WC - Nurse 2 - General Ulcer CM Notes Start: 02/19/18 11:35 Freq: Status: Active Protocol: Activity Type Activity Date Activity User E-Sign Co-Sign Detail Recorded Client Recorded Date Recorded By Document 02/19/18 11:58 MW [id number] 02/19/18 12:05 MW 02/19/18 11:58 Wound Center Nurse 2 1. L LATERAL LOWER EXTREMITY -Time 11:59 -Correct Patient Yes -Correct Side, Site, Position Yes -Correct Procedure Yes -Procedure Performed Yes -Type of Procedure Debridement -Clinical Debridement Subcutaneous -Post Debridement Size (cm) - Length 13.8 -Post Debridement Size (cm) - Width 4.0 -Post Debridement Size (cm) - Depth 0.2 -Total Square Cm 55.20 -Wound/Ulcer Outcome Not Healed -Ulcer Cleansing Rinsed/ Irrigated with Saline -Foul Odor after Cleansing No -Bioengineered Tissue No -Bleeding Controlled with Pressure -Treatment Response Procedure Tolerated Well Pain Scale: 0-10 Numeric Is Patient Pain Free? Yes Wound debrided: Right lower extremity wound. Wound Grade/Stage: Stage III Type of Debridement: Excisional debridement Anesthesia Used: 4% Lidocaine Solution Depth: Down to and including healthy tissue, in the subcutaneous layer Percentage of wound debrided: 100 Instrument Used: 7mm curette Tissue Removed: Slough and devitalized tissue Severity: Fat Layer Exposed Amount of bleeding with debridement: Mild Bleeding Controlled with: Pressure Patient tolerated procedure well Assessment/Plan Active Problems Wound of left lower extremity (Acute) Post debridement/hematoma evacuation. Assessment: Left lower extremity wound post I and D with delayed healing. Plan: Debridement done as documented above. Procedure was well tolerated. Continue Fibracol daily with Adaptic over top. Still having problems applying compression. Vascular studies with supra normal OLY suggestive of calcifications. Will switch to light 3M wraps. Follow up on Friday for a nurse visit. Low prealbumin. Premier drinks BID to TID. Elevate lower extremity when seated and in bed. All his questions were answered and he was asked to call with any further questions or concerns. Follow-up in 1 week. This note was generated with mediaBunkeration software. It may contain incorrect words, spelling, and punctuation that were not noted in checking the note before signing.
--- NOTE | 2018-02-19 12:16 | PN.PCM_ITS ---
(1) Wound of left lower extremity Status: Acute Current Visit: Yes Code(s): S81.802A - Unspecified open wound , left lower leg, initial encounter Comment: Post debridement/hematoma evacuation. Type of Wound Date of Service: 02/19/18 Chief Complaint: Left lower extremity wound - Delayed healing. History of Wound: Mr. Chauhan is a 62yo with PMH as stated above who presented here due to delayed healing of his left lower extremity wound. Said to have developed a large hematoma after a fall and subsequent fibular fracture. Initially managed in the hospital ( [place] ) for left lower extremity cellulitis and was discharged to a [facility]. At the [facility], he Incision and drainge of the hematoma with subsequent wound vac for 7 days. Since discontinuing the wound vac, he has applied a collagen dressing to the wound. He was recently discharged from the [facility] and plan is to get [facility] however, this has not been established. He feels well otherwise and denies chills, fever, nausea, vomitting or any change in his bowel habit. Progress of Wound: No new complaints. Improperly applied compression. - Physical Exam Vital Signs Temp Pulse Resp BP 97.5 F L 63 18 127/67 H 02/19/18 11:35 02/19/18 11:35 02/19/18 11:35 02/19/18 11:35 General: Alert, Oriented x3, Cooperative, No apparent distress HEENT: Atraumatic Oral: Moist Mucosa Neck: Supple Lungs: Normal air movement Abdomen: Non Tender, Obese Extremities: No cyanosis, Edema Skin: Ulcer/ Wound Wound Measurements and Assessment WC - Nurse 1 - General Ulcer Measurement Start: 02/19/18 11:35 Freq: Status: Active Protocol: Activity Type Activity Date Activity User E-Sign Co-Sign Detail Recorded Client Recorded Date Recorded By Document 02/19/18 11:35 [facility] [id number] 02/19/18 11:46 [facility] 02/19/18 11:35 Wound Center Nurse 1 [Ulcer Assessment] 1. L LATERAL LOWER EXTREMITY -Combined with other wound No -Current Size (cm) - Length 13.9 -Current Size (cm) - Width 4.6 -Current Size (cm) - Depth 0.2 -Total Square Cm 63.94 -Photo Taken No -Epithelialization Small 1-33% -Tunneling No -Undermining/Tunneling No -Circular Undermining No -Exudate Amt Large (67-100%) -Exudate Type Serosanguineous -Wound Margin Distinct, Outline Attached -Granulation Amt Large (67-100%) -Granulation Quality Red -Slough/Fibrin Yes -Necrosis Amt Small (1-33%) -Necrotic Tissue Type Adherent Slough -Texture (Kirstie-wound Skin Appearance) Scarring -Moisture (Kirstie-wound Skin Appearance Assessed ) -Color (Kirstie-wound Skin Appearance) Erythema -Temperature (Kirstie-wound Skin No Abnormality Appearance) (Pt Warm) -Tenderness on Palpation (Kirstie-wound No Skin Appearance) -Ulcer Cleansing Wound Cleanser -Foul Odor after Cleansing No -Anesthetic Used 4% Lidocaine Solution [Edema Assessment] -Lower Limb Edema Present Yes -Right Calf (cm) 45.5 -Right Ankle (cm) 26.8 -Left Calf (cm) 42.2 -Left Ankle (cm) 25 WC - Nurse 2 - General Ulcer CM Notes Start: 02/19/18 11:35 Freq: Status: Active Protocol: Activity Type Activity Date Activity User E-Sign Co-Sign Detail Recorded Client Recorded Date Recorded By Document 02/19/18 11:58 MW [id number] 02/19/18 12:05 MW 02/19/18 11:58 Wound Center Nurse 2 [Procedure/Treatment] 1. L LATERAL LOWER EXTREMITY -Time 11:59 -Correct Patient Yes -Correct Side, Site, Position Yes -Correct Procedure Yes -Procedure Performed Yes -Type of Procedure Debridement -Clinical Debridement Subcutaneous -Post Debridement Size (cm) - Length 13.8 -Post Debridement Size (cm) - Width 4.0 -Post Debridement Size (cm) - Depth 0.2 -Total Square Cm 55.20 -Wound/Ulcer Outcome Not Healed -Ulcer Cleansing Rinsed/ Irrigated with Saline -Foul Odor after Cleansing No -Bioengineered Tissue No -Bleeding Controlled with Pressure -Treatment Response Procedure Tolerated Well [See Physician Procedure note for Specifics] Pain Scale: 0-10 Numeric [Pain] -Is Patient Pain Free? Yes Musculoskeletal: No Muscle Wasting Neurological: Cranial nerves II-XII grossly intact Psych/Mental Status: Normal Affect Debridement Note Post-Debridement Measurements/Treatment WC - Nurse 2 - General Ulcer CM Notes Start: 02/19/18 11:35 Freq: Status: Active Protocol: Activity Type Activity Date Activity User E-Sign Co-Sign Detail Recorded Client Recorded Date Recorded By Document 02/19/18 11:58 MW [id number] 02/19/18 12:05 MW 02/19/18 11:58 Wound Center Nurse 2 1. L LATERAL LOWER EXTREMITY -Time 11:59 -Correct Patient Yes -Correct Side, Site, Position Yes -Correct Procedure Yes -Procedure Performed Yes -Type of Procedure Debridement -Clinical Debridement Subcutaneous -Post Debridement Size (cm) - Length 13.8 -Post Debridement Size (cm) - Width 4.0 -Post Debridement Size (cm) - Depth 0.2 -Total Square Cm 55.20 -Wound/Ulcer Outcome Not Healed -Ulcer Cleansing Rinsed/ Irrigated with Saline -Foul Odor after Cleansing No -Bioengineered Tissue No -Bleeding Controlled with Pressure -Treatment Response Procedure Tolerated Well Pain Scale: 0-10 Numeric Is Patient Pain Free? Yes Wound debrided: Right lower extremity wound. Wound Grade/Stage: Stage III Type of Debridement: Excisional debridement Anesthesia Used: 4% Lidocaine Solution Depth: Down to and including healthy tissue, in the subcutaneous layer Percentage of wound debrided: 100 Instrument Used: 7mm curette Tissue Removed: Slough and devitalized tissue Severity: Fat Layer Exposed Amount of bleeding with debridement: Mild Bleeding Controlled with: Pressure Patient tolerated procedure well Assessment/Plan Active Problems Wound of left lower extremity (Acute) Post debridement/hematoma evacuation. Assessment: Left lower extremity wound post I and D with delayed healing. Plan: Debridement done as documented above. Procedure was well tolerated. Continue Fibracol daily with Adaptic over top. Still having problems applying compression. Vascular studies with supra normal OLY suggestive of calcifications. Will switch to light 3M wraps. Follow up on Friday for a nurse visit. Low prealbumin. Premier drinks BID to TID. Elevate lower extremity when seated and in bed. All his questions were answered and he was asked to call with any further questions or concerns. Follow-up in 1 week. This note was generated with Fonmatch[employer] software. It may contain incorrect words, spelling, and punctuation that were not noted in checking the note before signing.
[2018-02-23 14:22] VITALS: BP 146/59; PULSE 62; RESP 16; TEMP 36.6
[2018-02-26 09:44] VITALS: BP 125/67; PULSE 59; RESP 18; TEMP 36.3
--- NOTE | 2018-02-26 10:31 | PN.PCM_ITS ---
(1) Wound of left lower extremity Status: Acute Current Visit: Yes Code(s): S81.802A - Unspecified open wound , left lower leg, initial encounter Comment: Post debridement/hematoma evacuation. Type of Wound Date of Service: 02/26/18 Chief Complaint: Left lower extremity wound - Delayed healing. History of Wound: Mr. Chauhan is a 62yo with PMH as stated above who presented here due to delayed healing of his left lower extremity wound. Said to have developed a large hematoma after a fall and subsequent fibular fracture. Initially managed in the hospital ( [place] ) for left lower extremity cellulitis and was discharged to a [facility]. At the [facility], he Incision and drainge of the hematoma with subsequent wound vac for 7 days. Since discontinuing the wound vac, he has applied a collagen dressing to the wound. He was recently discharged from the [facility] and plan is to get [facility] however, this has not been established. He feels well otherwise and denies chills, fever, nausea, vomitting or any change in his bowel habit. Progress of Wound: Stable. Tolerated compression well in the past week. - Physical Exam Vital Signs Temp Pulse Resp BP 97.3 F L 59 L 18 125/67 H 02/26/18 09:44 02/26/18 09:44 02/26/18 09:44 02/26/18 09:44 General: Alert, Oriented x3, Cooperative, No apparent distress HEENT: Atraumatic Oral: Moist Mucosa Neck: Supple Lungs: Normal air movement Abdomen: Soft, Non Tender, Obese Skin: Ulcer/ Wound Wound Measurements and Assessment WC - Nurse 1 - General Ulcer Measurement Start: 02/19/18 11:35 Freq: Status: Active Protocol: Activity Type Activity Date Activity User E-Sign Co-Sign Detail Recorded Client Recorded Date Recorded By Document 02/23/18 14:22 [facility] [id number] 02/23/18 14:24 [facility] Document 02/26/18 09:52 [id number] 02/26/18 09:57 02/23/18 02/26/18 14:22 09:52 Wound Center Nurse 1 [Ulcer Assessment] 1. L LATERAL LOWER EXTREMITY -Combined with other wound No No -Current Size (cm) - Length 13.2 -Current Size (cm) - Width 4.0 -Current Size (cm) - Depth 0.1 -Total Square Cm 52.80 -Date of Last Picture (Recall this 02/26/18 field) -Photo Taken No Yes -Epithelialization Small 1-33% None Present -Tunneling No No -Undermining/Tunneling No No -Circular Undermining No No -Classification - Thickness Full Thickness without Exposed Support Structure -Change in Wound Grade/Stage No Query Text:If change please identify the Stage/Grade in the comment (ie. S2 G3) -Exudate Amt Large (67-100%) Large (67-100%) -Exudate Type Serosanguineous Serosanguineous -Wound Margin Distinct, Distinct, Outline Outline Attached Attached -Granulation Amt Large (67-100%) Large (67-100%) -Granulation Quality Red Red -Slough/Fibrin No Yes -Necrosis Amt None Present (0 None Present (0 %) %) -Necrotic Tissue Type Adherent Slough -Structure Exposed None/Limited to Skin Breakdown -Texture (Kirstie-wound Skin Appearance) Scarring No Abnormality -Moisture (Kirstie-wound Skin Appearance Assessed No Abnormality ) Dry/Scaly -Color (Kirstie-wound Skin Appearance) Assessed No Abnormality -Temperature (Kirstie-wound Skin No Abnormality No Abnormality Appearance) (Pt Warm) (Pt Warm) -Tenderness on Palpation (Kirstie-wound No Yes Skin Appearance) -Ulcer Cleansing Wound Cleanser Rinsed/ Irrigated with Saline -Foul Odor after Cleansing No No -Anesthetic Used 4% Lidocaine Solution 5% Lidocaine Gel [Edema Assessment] -Lower Limb Edema Present Yes Yes -Right Calf (cm) 38.6 36.5 -Right Ankle (cm) 24 23.5 -Left Calf (cm) 38.5 38.7 -Left Ankle (cm) 23.5 24.0 WC - Nurse 2 - General Ulcer CM Notes Start: 02/19/18 11:35 Freq: Status: Active Protocol: Activity Type Activity Date Activity User E-Sign Co-Sign Detail Recorded Client Recorded Date Recorded By Document 02/26/18 10:26 MW [id number] 02/26/18 10:27 MW 02/26/18 10:26 Wound Center Nurse 2 [Procedure/Treatment] 1. L LATERAL LOWER EXTREMITY -Time 10:27 -Correct Patient Yes -Correct Side, Site, Position Yes -Correct Procedure Yes -Procedure Performed Yes -Type of Procedure Debridement -Clinical Debridement Subcutaneous -Post Debridement Size (cm) - Length 13.0 -Post Debridement Size (cm) - Width 4.0 -Post Debridement Size (cm) - Depth 0.1 -Total Square Cm 52.00 -Wound/Ulcer Outcome Not Healed -Ulcer Cleansing Rinsed/ Irrigated with Saline -Foul Odor after Cleansing No -Bioengineered Tissue No -Bleeding Controlled with Pressure -Treatment Response Procedure Tolerated Well [See Physician Procedure note for Specifics] Pain Scale: 0-10 Numeric [Pain] -Is Patient Pain Free? Yes Musculoskeletal: No Muscle Wasting Neurological: Cranial nerves II-XII grossly intact Psych/Mental Status: Normal Affect Debridement Note Post-Debridement Measurements/Treatment WC - Nurse 2 - General Ulcer CM Notes Start: 02/19/18 11:35 Freq: Status: Active Protocol: Activity Type Activity Date Activity User E-Sign Co-Sign Detail Recorded Client Recorded Date Recorded By Document 02/19/18 11:58 MW [id number] 02/19/18 12:05 MW Document 02/26/18 10:26 MW [id number] 02/26/18 10:27 MW 02/19/18 02/26/18 11:58 10:26 Wound Center Nurse 2 1. L LATERAL LOWER EXTREMITY -Time 11:59 10:27 -Correct Patient Yes Yes -Correct Side, Site, Position Yes Yes -Correct Procedure Yes Yes -Procedure Performed Yes Yes -Type of Procedure Debridement Debridement -Clinical Debridement Subcutaneous Subcutaneous -Post Debridement Size (cm) - Length 13.8 13.0 -Post Debridement Size (cm) - Width 4.0 4.0 -Post Debridement Size (cm) - Depth 0.2 0.1 -Total Square Cm 55.20 52.00 -Wound/Ulcer Outcome Not Healed Not Healed -Ulcer Cleansing Rinsed/ Rinsed/ Irrigated with Irrigated with Saline Saline -Foul Odor after Cleansing No No -Bioengineered Tissue No No -Bleeding Controlled with Pressure Pressure -Treatment Response Procedure Procedure Tolerated Well Tolerated Well Pain Scale: 0-10 Numeric Is Patient Pain Free? Yes Yes Wound debrided: Left lower extremity Wound Grade/Stage: Stage III Type of Debridement: Excisional debridement Anesthesia Used: 4% Lidocaine Solution Depth: Down to and including healthy tissue, in the subcutaneous layer Percentage of wound debrided: 100 Instrument Used: 7mm curette Tissue Removed: Slough and devitalized tissue Severity: Fat Layer Exposed Amount of bleeding with debridement: Mild Bleeding Controlled with: Pressure Patient tolerated procedure well Assessment/Plan Active Problems Wound of left lower extremity (Acute) Post debridement/hematoma evacuation. Assessment: Left lower extremity wound post I and D with delayed healing. Plan: Debridement done as documented above. Procedure was well tolerated. Continue Fibracol with Adaptic over top. Leave in for a week. Continue light 3M wraps. Follow up in 1 week. Low prealbumin. Premier drinks BID to TID. Elevate lower extremity when seated and in bed. All his questions were answered and he was asked to call with any further questions or concerns. Follow-up in 1 week. This note was generated with Ideapod dictation software. It may contain incorrect words, spelling, and punctuation that were not noted in checking the note before signing.
[2018-03-05 10:49] VITALS: BP 124/70; PULSE 84; RESP 16; TEMP 36.3
--- NOTE | 2018-03-05 11:33 | PN.PCM_ITS ---
(1) Wound of left lower extremity Status: Acute Current Visit: Yes Code(s): S81.802A - Unspecified open wound , left lower leg, initial encounter Comment: Post debridement/hematoma evacuation. Type of Wound Date of Service: 03/05/18 Chief Complaint: Left lower extremity wound - Delayed healing. History of Wound: Mr. Chauhan is a 62yo with PMH as stated above who presented here due to delayed healing of his left lower extremity wound. Said to have developed a large hematoma after a fall and subsequent fibular fracture. Initially managed in the hospital ( [place] ) for left lower extremity cellulitis and was discharged to a [place]. At the [place], he Incision and drainge of the hematoma with subsequent wound vac for 7 days. Since discontinuing the wound vac, he has applied a collagen dressing to the wound. He was recently discharged from the [place] and plan is to get [facility] however, this has not been established. He feels well otherwise and denies chills, fever, nausea, vomitting or any change in his bowel habit. Progress of Wound: Improving. - Physical Exam Vital Signs Temp Pulse Resp BP 97.3 F L 84 16 124/70 H 03/05/18 10:49 03/05/18 10:49 03/05/18 10:49 03/05/18 10:49 General: Alert, Oriented x3, Cooperative, No apparent distress HEENT: Atraumatic Oral: Moist Mucosa Neck: Supple Lungs: Normal air movement Abdomen: Non Tender Extremities: No cyanosis, Edema Skin: Ulcer/ Wound Wound Measurements and Assessment WC - Nurse 1 - General Ulcer Measurement Start: 02/19/18 11:35 Freq: Status: Active Protocol: Activity Type Activity Date Activity User E-Sign Co-Sign Detail Recorded Client Recorded Date Recorded By Document 03/05/18 10:49 [facility] [id number] 03/05/18 11:01 [facility] 03/05/18 10:49 Wound Center Nurse 1 [Ulcer Assessment] 1. L LATERAL LOWER EXTREMITY -Combined with other wound No -Current Size (cm) - Length 13.2 -Current Size (cm) - Width 3.7 -Current Size (cm) - Depth 0.1 -Total Square Cm 48.84 -Photo Taken No -Epithelialization Small 1-33% -Tunneling No -Undermining/Tunneling No -Circular Undermining No -Exudate Amt Large (67-100%) -Exudate Type Serosanguineous -Wound Margin Distinct, Outline Attached -Granulation Amt Large (67-100%) -Granulation Quality Red -Slough/Fibrin Yes -Necrosis Amt Small (1-33%) -Necrotic Tissue Type Adherent Slough -Texture (Kirstie-wound Skin Appearance) Scarring -Moisture (Kirstie-wound Skin Appearance Dry/Scaly ) -Color (Kirstie-wound Skin Appearance) Hemosiderin Staining -Temperature (Kirstie-wound Skin No Abnormality Appearance) (Pt Warm) -Tenderness on Palpation (Kirstie-wound No Skin Appearance) -Ulcer Cleansing Wound Cleanser -Foul Odor after Cleansing No -Anesthetic Used 4% Lidocaine Solution [Edema Assessment] -Lower Limb Edema Present Yes -Right Calf (cm) 36.5 -Right Ankle (cm) 23.3 -Left Calf (cm) 34.7 -Left Ankle (cm) 22 WC - Nurse 2 - General Ulcer CM Notes Start: 02/19/18 11:35 Freq: Status: Active Protocol: Activity Type Activity Date Activity User E-Sign Co-Sign Detail Recorded Client Recorded Date Recorded By Document 03/05/18 11:19 MW [id number] 03/05/18 11:25 MW 03/05/18 11:19 Wound Center Nurse 2 [Procedure/Treatment] 1. L LATERAL LOWER EXTREMITY -Time 11:21 -Correct Patient Yes -Correct Side, Site, Position Yes -Correct Procedure Yes -Procedure Performed Yes -Type of Procedure Debridement -Clinical Debridement Subcutaneous -Post Debridement Size (cm) - Length 13.0 -Post Debridement Size (cm) - Width 3.5 -Post Debridement Size (cm) - Depth 0.1 -Total Square Cm 45.50 -Wound/Ulcer Outcome Not Healed -Ulcer Cleansing Rinsed/ Irrigated with Saline -Foul Odor after Cleansing No -Bioengineered Tissue No -Bleeding Controlled with Pressure -Treatment Response Procedure Tolerated Well [See Physician Procedure note for Specifics] Pain Scale: 0-10 Numeric [Pain] -Is Patient Pain Free? Yes Musculoskeletal: No Muscle Wasting Neurological: Cranial nerves II-XII grossly intact Psych/Mental Status: Normal Affect Debridement Note Post-Debridement Measurements/Treatment WC - Nurse 2 - General Ulcer CM Notes Start: 02/19/18 11:35 Freq: Status: Active Protocol: Activity Type Activity Date Activity User E-Sign Co-Sign Detail Recorded Client Recorded Date Recorded By Document 02/19/18 11:58 MW [id number] 02/19/18 12:05 MW Document 02/26/18 10:26 MW [id number] 02/26/18 10:27 MW Document 03/05/18 11:19 MW [id number] 03/05/18 11:25 MW 02/19/18 02/26/18 03/05/18 11:58 10:26 11:19 Wound Center Nurse 2 1. L LATERAL LOWER EXTREMITY -Time 11:59 10:27 11:21 -Correct Patient Yes Yes Yes -Correct Side, Site, Position Yes Yes Yes -Correct Procedure Yes Yes Yes -Procedure Performed Yes Yes Yes -Type of Procedure Debridement Debridement Debridement -Clinical Debridement Subcutaneous Subcutaneous Subcutaneous -Post Debridement Size (cm) - Length 13.8 13.0 13.0 -Post Debridement Size (cm) - Width 4.0 4.0 3.5 -Post Debridement Size (cm) - Depth 0.2 0.1 0.1 -Total Square Cm 55.20 52.00 45.50 -Wound/Ulcer Outcome Not Healed Not Healed Not Healed -Ulcer Cleansing Rinsed/ Rinsed/ Rinsed/ Irrigated with Irrigated with Irrigated with Saline Saline Saline -Foul Odor after Cleansing No No No -Bioengineered Tissue No No No -Bleeding Controlled with Pressure Pressure Pressure -Treatment Response Procedure Procedure Procedure Tolerated Well Tolerated Well Tolerated Well Pain Scale: 0-10 Numeric Is Patient Pain Free? Yes Yes Yes Wound debrided: Left lower extremity Wound Grade/Stage: Stage III Type of Debridement: Excisional debridement Anesthesia Used: 4% Lidocaine Solution Depth: Down to and including healthy tissue, in the subcutaneous layer Percentage of wound debrided: 100 Instrument Used: 7mm curette Tissue Removed: Slough and devitalized tissue Severity: Fat Layer Exposed Amount of bleeding with debridement: Mild Bleeding Controlled with: Pressure Patient tolerated procedure well Assessment/Plan Active Problems Wound of left lower extremity (Acute) Post debridement/hematoma evacuation. Assessment: Left lower extremity wound post I and D with delayed healing. Plan: Improving wound. Debridement done as documented above. Procedure was well tolerated. Continue Fibracol with Adaptic over top. Leave in for a week. Continue light 3M wraps. Follow up in 1 week. Low prealbumin. Premier drinks BID to TID. Elevate lower extremity when seated and in bed. All his questions were answered and he was asked to call with any further questions or concerns. Follow-up in 1 week. This note was generated with [employer] dictation software. It may contain incorrect words, spelling, and punctuation that were not noted in checking the note before signing.
[2018-03-11 09:36] VITALS: BP 96/57; PULSE 80; RESP 18; TEMP 36.6
--- NOTE | 2018-03-11 10:10 | PCM.WC.PN ---
(1) Wound of left lower extremity Status: Acute Current Visit: Yes Code(s): S81.802A - Unspecified open wound, left lower leg, initial encounter Comment: Post debridement/hematoma evacuation. Type of Wound Chief Complaint: Left lower extremity wound - Delayed healing. History of Wound: Mr. Chauhan is a 62yo with PMH as stated above who presented here due to delayed healing of his left lower extremity wound. Said to have developed a large hematoma after a fall and subsequent fibular fracture. Initially managed in the hospital ( [place] ) for left lower extremity cellulitis and was discharged [place]. At the [place], he Incision and drainge of the hematoma with subsequent wound vac for 7 days. Since discontinuing the wound vac, he has applied a collagen dressing to the wound. He was recently discharged from the [place] and plan is to get [facility] however, this has not been established. He feels well otherwise and denies chills, fever, nausea, vomitting or any change in his bowel habit. Progress of Wound: Improving. - Physical Exam Vital Signs Temp Pulse Resp BP 97.8 F 80 18 96/57 L 03/11/18 09:36 03/11/18 09:36 03/11/18 09:36 03/11/18 09:36 General: Alert, Oriented x3, Cooperative, No apparent distress HEENT: Atraumatic Oral: Moist Mucosa Neck: Supple Lungs: Normal air movement Cardiovascular: Regular rate Abdomen: Non Tender Extremities: No cyanosis, Edema Skin: Ulcer/ Wound Wound Measurements and Assessment WC - Nurse 1 - General Ulcer Measurement Start: 02/19/18 11:35 Freq: Status: Active Protocol: Activity Type Activity Date Activity User E-Sign Co-Sign Detail Recorded Client Recorded Date Recorded By Document 03/11/18 09:36 [id number] 03/11/18 09:47 03/11/18 09:36 Wound Center Nurse 1 [Ulcer Assessment] 1. L LATERAL LOWER EXTREMITY -Combined with other wound No -Current Size (cm) - Length 12.5 -Current Size (cm) - Width 3.1 -Current Size (cm) - Depth 0.1 -Total Square Cm 38.75 -Photo Taken No -Epithelialization None Present -Tunneling No -Undermining/Tunneling No -Circular Undermining No -Exudate Amt Large (67-100%) -Exudate Type Sanguineous -Wound Margin Distinct, Outline Attached -Granulation Amt Large (67-100%) -Granulation Quality Red -Slough/Fibrin Yes -Necrosis Amt None Present (0 %) -Necrotic Tissue Type Adherent Slough -Structure Exposed None/Limited to Skin Breakdown -Texture (Kirstie-wound Skin Appearance) Assessed Scarring -Moisture (Kirstie-wound Skin Appearance No Abnormality ) Assessed -Color (Kirstie-wound Skin Appearance) No Abnormality Assessed -Temperature (Kirstie-wound Skin No Abnormality Appearance) (Pt Warm) -Tenderness on Palpation (Kirstie-wound Yes Skin Appearance) -Ulcer Cleansing Wound Cleanser -Foul Odor after Cleansing No -Anesthetic Used 4% Lidocaine Solution [Edema Assessment] -Lower Limb Edema Present Yes -Right Calf (cm) 41 -Right Ankle (cm) 25 -Left Calf (cm) 34.8 -Left Ankle (cm) 24 WC - Nurse 2 - General Ulcer CM Notes Start: 02/19/18 11:35 Freq: Status: Active Protocol: Activity Type Activity Date Activity User E-Sign Co-Sign Detail Recorded Client Recorded Date Recorded By Document 03/11/18 09:55 MW [id number] 03/11/18 09:56 MW 03/11/18 09:55 Wound Center Nurse 2 [Procedure/Treatment] 1. L LATERAL LOWER EXTREMITY -Time 09:55 -Correct Patient Yes -Correct Side, Site, Position Yes -Correct Procedure Yes -Procedure Performed Yes -Type of Procedure Debridement -Clinical Debridement Subcutaneous -Post Debridement Size (cm) - Length 12.5 -Post Debridement Size (cm) - Width 3.0 -Post Debridement Size (cm) - Depth 0.1 -Total Square Cm 37.50 -Wound/Ulcer Outcome Not Healed -Ulcer Cleansing Rinsed/ Irrigated with Saline -Foul Odor after Cleansing No -Bioengineered Tissue No -Bleeding Controlled with Pressure -Treatment Response Procedure Tolerated Well [See Physician Procedure note for Specifics] Pain Scale: 0-10 Numeric [Pain] -Is Patient Pain Free? Yes Musculoskeletal: No Muscle Wasting Neurological: Cranial nerves II-XII grossly intact Psych/Mental Status: Normal Affect Debridement Note Post-Debridement Measurements/Treatment WC - Nurse 2 - General Ulcer CM Notes Start: 02/19/18 11:35 Freq: Status: Active Protocol: Activity Type Activity Date Activity User E-Sign Co-Sign Detail Recorded Client Recorded Date Recorded By Document 02/19/18 11:58 MW [id number] 02/19/18 12:05 MW Document 02/26/18 10:26 MW [id number] 02/26/18 10:27 MW Document 03/05/18 11:19 MW [id number] 03/05/18 11:25 MW Document 03/11/18 09:55 MW [id number] 03/11/18 09:56 MW 02/19/18 02/26/18 03/05/18 11:58 10:26 11:19 Wound Center Nurse 2 1. L LATERAL LOWER EXTREMITY -Time 11:59 10:27 11:21 -Correct Patient Yes Yes Yes -Correct Side, Site, Position Yes Yes Yes -Correct Procedure Yes Yes Yes -Procedure Performed Yes Yes Yes -Type of Procedure Debridement Debridement Debridement -Clinical Debridement Subcutaneous Subcutaneous Subcutaneous -Post Debridement Size (cm) - Length 13.8 13.0 13.0 -Post Debridement Size (cm) - Width 4.0 4.0 3.5 -Post Debridement Size (cm) - Depth 0.2 0.1 0.1 -Total Square Cm 55.20 52.00 45.50 -Wound/Ulcer Outcome Not Healed Not Healed Not Healed -Ulcer Cleansing Rinsed/ Rinsed/ Rinsed/ Irrigated with Irrigated with Irrigated with Saline Saline Saline -Foul Odor after Cleansing No No No -Bioengineered Tissue No No No -Bleeding Controlled with Pressure Pressure Pressure -Treatment Response Procedure Procedure Procedure Tolerated Well Tolerated Well Tolerated Well Pain Scale: 0-10 Numeric Is Patient Pain Free? Yes Yes Yes 03/11/18 09:55 Wound Center Nurse 2 1. L LATERAL LOWER EXTREMITY -Time 09:55 -Correct Patient Yes -Correct Side, Site, Position Yes -Correct Procedure Yes -Procedure Performed Yes -Type of Procedure Debridement -Clinical Debridement Subcutaneous -Post Debridement Size (cm) - Length 12.5 -Post Debridement Size (cm) - Width 3.0 -Post Debridement Size (cm) - Depth 0.1 -Total Square Cm 37.50 -Wound/Ulcer Outcome Not Healed -Ulcer Cleansing Rinsed/ Irrigated with Saline -Foul Odor after Cleansing No -Bioengineered Tissue No -Bleeding Controlled with Pressure -Treatment Response Procedure Tolerated Well Pain Scale: 0-10 Numeric Is Patient Pain Free? Yes Wound debrided: Left lower extremity Wound Grade/Stage: Stage III Type of Debridement: Excisional debridement Anesthesia Used: 4% Lidocaine Solution Depth: Down to and including healthy tissue, in the subcutaneous layer Percentage of wound debrided: 100 Instrument Used: 7mm curette Tissue Removed: Slough and devitalized tissue Severity: Fat Layer Exposed Amount of bleeding with debridement: Mild Bleeding Controlled with: Pressure Patient tolerated procedure well Assessment/Plan Active Problems Wound of left lower extremity (Acute) Post debridement/hematoma evacuation. Assessment: Left lower extremity wound post I and D with delayed healing. Plan: Improving wound. Debridement done as documented above. Procedure was well tolerated. Continue Fibracol with Adaptic over top. Leave in for a week. Continue light 3M wraps. Follow up in 1 week. Low prealbumin. Premier drinks BID to TID. Elevate lower extremity when seated and in bed. All his questions were answered and he was asked to call with any further questions or concerns. Follow-up in 1 week. This note was generated with [employer] dictation software. It may contain incorrect words, spelling, and punctuation that were not noted in checking the note before signing.
== END 2018-03-15 23:59 ==
LOC: WC 09:45
PROVIDERS: Family Provider Family Medicine; PCP Family Medicine; Visit Provider Internal Medicine
DX: S80.12XA Contusion of left lower leg, initial encounter (principal); W19.XXXA Unspecified fall, initial encounter
CPT/HCPCS: 11042; 11045; 29581; 99213; G0463

== ENCOUNTER → 2018-03-12 10:16 | Outpatient (CLI) | payer OTHER, SELFPAY ==
--- NOTE | 2018-03-12 10:17 | RAD_ITS ---
STUDY: X-RAY - LEFT WRIST REASON FOR EXAM: Lump at the radial posterior surface. TECHNIQUE: 3 view(s) of the wrist were obtained. COMPARISON: None. FINDINGS: Normal visualized distal radius and ulna. There is joint space narrowing of the radiocarpal compartment. Normal distal radioulnar articulation. 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 Normal carpometacarpal articulation of the thumb. Normal second through fifth carpometacarpal articulations. Normal visualized metacarpal bones. There is a small ossicle adjacent to the radial styloid process. 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 Electronically Signed: Brad Mera MD at 15:42 EDT Tel , Service support ,
== END ==
PROVIDERS: Family Provider Family Medicine; PCP Family Medicine; Referring Provider Orthopaedic Surgery; Visit Provider Orthopaedic Surgery
DX: M25.532 Pain in left wrist (principal)
CPT/HCPCS: 73110

== ENCOUNTER → 2018-03-24 10:04 | Outpatient (CLI) | payer OTHER, SELFPAY ==
--- NOTE | 2018-03-24 10:06 | CT_ITS ---
STUDY: CT OF THE LEFT WRIST WITHOUT CONTRAST REASON FOR EXAM: Male, 62 years old. Left wrist pain. RADIATION DOSAGE (If Supplied By Facility): CTDIvol = ( 20.42 ) mGy, DLP = ( 455.57 ) mGycm. Individualized dose optimization techniques were used for this CT.? TECHNIQUE: Contiguous axial images of the left wrist were obtained without contrast. Coronal and sagittal reconstruction and bone and soft tissue algorithm images were provided for interpretation. COMPARISON: Radiographs of the left wrist dated March 12, 2018 FINDINGS: There is generalized osteopenia. There is moderate arthrosis of the radiocarpal articulation, the radial ulnar joint and the intercarpal articulations. There is loss of substance and fragmentation of the lunate which may be secondary to avascular necrosis. There is minimal soft tissue ossification adjacent to the radial styloid. There is mild arthrosis of the first carpometacarpal joint. CT/Extremity Upper without Contra IMPRESSION: Osteopenia with osteoarthritic changes as described. 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 Electronically Signed: Isaac Alarcon MD at 14:12 EDT , Service support ,
== END ==
PROVIDERS: Family Provider Family Medicine; PCP Family Medicine; Referring Provider Orthopaedic Surgery; Visit Provider Orthopaedic Surgery
DX: S62.12 Fracture of lunate [semilunar] (principal); Z87.81 Personal history of (healed) traumatic fracture
CPT/HCPCS: 73200

== ENCOUNTER → 2018-04-01 15:30 | Outpatient (CLI) | payer OTHER, SELFPAY ==
--- NOTE | 2018-04-01 15:35 | RAD_ITS ---
STUDY: X-RAY CHEST REASON FOR EXAM: Male, 62 years old. Shortness of breath. Preoperative evaluation. TECHNIQUE: PA and lateral views of the chest. COMPARISON: Comparison is made with prior examination May 09, 2010. FINDINGS: Mild degree of increased linear markings at the lung bases suggestive of atelectasis and/or scarring. There is blunting of the left costophrenic angle. Mild pleural thickening along the lateral wall of the left hemithorax most likely secondary to prior trauma. There is mild cardiac enlargement. Normal mediastinum and liss. Normal visualized pulmonary arteries. There is atherosclerotic tortuosity of the aortic arch and descending thoracic aorta. There is demineralization of the osseous structures. Multilevel disc space narrowing and degeneration. Normal visualized ribs, clavicles, and shoulders. There is no demonstrated abnormality of the visualized soft tissue structures of the upper abdomen. RAD/Chest PA and Lateral IMPRESSION: Mild degree of increased markings at the lung bases suggestive of vertebral linear scarring. There is blunting of the left costophrenic angle. Electronically Signed: Jose Alberto Wing MD at 10:36 EDT Tel [phone], Service support ,
== END ==
PROVIDERS: Family Provider Family Medicine; PCP Family Medicine; Referring Provider Nurse Practitioner Family; Visit Provider Nurse Practitioner Family
DX: R06.02 Shortness of breath (principal)
CPT/HCPCS: 71046

== ENCOUNTER → 2018-04-07 13:43 | Outpatient (CLI) | payer OTHER, SELFPAY ==
--- NOTE | 2018-04-07 14:29 | ECHOD_ITS ---
Reason For Study: [facility] Procedure This was a 2D Doppler, Color Flow transthoracic echocardiogram. The study was technically difficult. Due to body habitus. Exam performed in department. Left Ventricle Moderate eccentric left ventricular hypertrophy. The estimated ejection fraction is 65 %. Stage 1 diastolic dysfunction. No regional wall motion abnormalities noted. Right Ventricle Normal size and thickness. Normal systolic function. Atria The left atrium is severely enlarged. Normal right atrium. Normal atrial septum. Mitral Valve The mitral valve is structurally normal. No prolapse or stenosis seen. Mild (1+) mitral valve insufficiency. Tricuspid Valve Normal tricuspid valve. Mild (1+) tricuspid valve insufficiency. Right ventricular systolic pressure estimated to be 49 mmHg. Moderate pulmonary hypertension. Aortic Valve Trisinus/trileaflet aortic valve. Mild diffuse aortic valve thickening. Mild (1+) aortic valve insufficiency. Pulmonic Valve Normal pulmonic valve. Great Vessels Mildly dilated aortic root. Normal arch. Normal inferior vena cava. Inferior vena cava collapse with sniff. Pericardium/Pleural No pericardial effusion. MMode/2D Measurements & Calculations LVIDd: 4.5 cm IVSd: 1.9 cm LVOT diam: 2.5 cm LVIDs: 3.4 cm LVPWd: 1.3 cm LVOT area: 5.0 cm2 RVDd: 3.5 cm FS: 23.7 % Ao root diam: 4.3 cm LAV(MOD-bp): 181.4 ml LA A4 area: 42.4 cm2 LAV(MOD-bp) Indexed: 80.0 ml/m2 LAV(MOD-sp2): 175.1 ml LAV(MOD-sp4): 190.0 ml RA A4 area: 27.2 cm2 Doppler Measurements & Calculations MV E max fermin: 107.6 cm/sec MV V2 max: 120.4 cm/sec Ao V2 max: 121.5 cm/sec MV A max fermin: 20.5 cm/sec MV max P.8 mmHg Ao max P.9 mmHg MV E/A: 5.3 MV V2 mean: 46.3 cm/sec Ao V2 mean: 83.1 cm/sec MV mean P.2 mmHg Ao mean P.0 mmHg MV V2 VTI: 39.3 cm Ao V2 VTI: 27.4 cm MVA(VTI): 3.4 cm2 SAGAR(I,D): 4.9 cm2 SAGAR(V,D): 4.4 cm2 AI max fermin: 367.9 cm/sec LV V1 max: 107.3 cm/sec MR max fermin: 503.3 cm/sec AI max P.2 mmHg LV V1 max P.6 mmHg MR max P.3 mmHg AI dec slope: 103.8 cm/sec2 LV V1 mean P.4 mmHg AI P1/2t: 1038 msec LV V1 mean: 73.1 cm/sec LV V1 VTI: 26.8 cm SV(LVOT): 133.6 ml PA V2 max: 69.5 cm/sec TR max fermin: 290.4 cm/sec TR max P.7 mmHg Interpretation Summary The estimated ejection fraction is 65 %. Stage 1 diastolic dysfunction. The left atrium is severely enlarged. Mild (1+) mitral valve insufficiency. Right ventricular systolic pressure estimated to be 49 mmHg. Moderate pulmonary hypertension. Mild (1+) aortic valve insufficiency. Mildly dilated aortic root. There is no comparison study available. Ordering Physician: BOY Hancock Referring Physician: Josh Bethea Performed By: Ava Chino, CANELO, RVT
== END ==
PROVIDERS: Family Provider Family Medicine; PCP Family Medicine; Referring Provider Nurse Practitioner Family; Visit Provider Nurse Practitioner Family
DX: I42.1 Obstructive hypertrophic cardiomyopathy (principal)
CPT/HCPCS: 93306

== ENCOUNTER 2018-04-09 09:30 | Outpatient (RCR) | payer OTHER, SELFPAY ==
[2018-03-16 01:15] VITALS: BP 96/57; PULSE 80; RESP 18; TEMP 36.6
[2018-03-19 09:26] VITALS: BP 125/77; PULSE 69; RESP 18; TEMP 36.8
--- NOTE | 2018-03-19 10:07 | PCM.WC.PN ---
(1) Wound of left lower extremity Status: Chronic Current Visit: Yes Code(s): S81.802A - Unspecified open wound, left lower leg, initial encounter Comment: Post debridement/hematoma evacuation. Type of Wound Chief Complaint: Left lower extremity wound - Delayed healing. History of Wound: Mr. Chauhan is a 62yo with PMH as stated above who presented here due to delayed healing of his left lower extremity wound. Said to have developed a large hematoma after a fall and subsequent fibular fracture. Initially managed in the hospital ( [facility] ) for left lower extremity cellulitis and was [place] the [place], he Incision and drainge of the hematoma with subsequent wound vac for 7 days. Since discontinuing the wound vac, he has applied a collagen dressing to the wound. He was recently discharged from the [place] and plan is to get [facility] however, this has not been established. He feels well otherwise and denies chills, fever, nausea, vomitting or any change in his bowel habit. Progress of Wound: Improving. - Physical Exam Vital Signs Temp Pulse Resp BP 98.2 F 69 18 125/77 H 03/19/18 09:26 10 09:26 03/19/18 09:26 03/19/18 09:26 General: Alert, Oriented x3, Cooperative, No apparent distress HEENT: Atraumatic Oral: Moist Mucosa Neck: Supple Lungs: Normal air movement Abdomen: Non Tender Extremities: No cyanosis, Edema Skin: Ulcer/ Wound Wound Measurements and Assessment WC - Nurse 1 - General Ulcer Measurement Start: 03/19/18 09:26 Freq: Status: Active Protocol: Activity Type Activity Date Activity User E-Sign Co-Sign Detail Recorded Client Recorded Date Recorded By Document 03/19/18 09:26 RB [id number] 03/19/18 09:40 RB 03/19/18 09:26 Wound Center Nurse 1 [Ulcer Assessment] 1. L LATERAL LOWER EXTREMITY -Combined with other wound No -Current Size (cm) - Length 12 -Current Size (cm) - Width 2.5 -Current Size (cm) - Depth 0.1 -Total Square Cm 30.0 -Photo Taken No -Tunneling No -Undermining/Tunneling No -Circular Undermining No -Exudate Amt Medium (34-66%) -Exudate Type Serosanguineous -Wound Margin Distinct, Outline Attached -Granulation Amt Large (67-100%) -Granulation Quality Hyper- granulation Red -Slough/Fibrin Yes -Necrosis Amt Small (1-33%) -Necrotic Tissue Type Adherent Slough -Structure Exposed N/A -Texture (Kirstie-wound Skin Appearance) Assessed -Moisture (Kirstie-wound Skin Appearance Assessed ) -Color (Kirstie-wound Skin Appearance) Assessed Hemosiderin Staining -Temperature (Kirstie-wound Skin No Abnormality Appearance) (Pt Warm) -Tenderness on Palpation (Kirstie-wound No Skin Appearance) -Ulcer Cleansing Wound Cleanser -Foul Odor after Cleansing No -Anesthetic Used 4% Lidocaine Solution [Edema Assessment] -Lower Limb Edema Present Yes -Right Calf (cm) 39.5 -Right Ankle (cm) 22.6 -Left Calf (cm) 35.5 -Left Ankle (cm) 21 WC - Nurse 2 - General Ulcer CM Notes Start: 03/19/18 09:26 Freq: Status: Active Protocol: Activity Type Activity Date Activity User E-Sign Co-Sign Detail Recorded Client Recorded Date Recorded By Document 03/19/18 09:59 MW [id number] 03/19/18 10:01 MW 03/19/18 09:59 Wound Center Nurse 2 [Procedure/Treatment] 1. L LATERAL LOWER EXTREMITY -Time 09:59 -Correct Patient Yes -Correct Side, Site, Position Yes -Correct Procedure Yes -Procedure Performed Yes -Type of Procedure Debridement -Clinical Debridement Subcutaneous -Post Debridement Size (cm) - Length 11.0 -Post Debridement Size (cm) - Width 2.5 -Post Debridement Size (cm) - Depth 0.1 -Total Square Cm 27.50 -Wound/Ulcer Outcome Not Healed -Ulcer Cleansing Rinsed/ Irrigated with Saline -Foul Odor after Cleansing No -Bioengineered Tissue No -Bleeding Controlled with Pressure -Treatment Response Procedure Tolerated Well [See Physician Procedure note for Specifics] Pain Scale: 0-10 Numeric [Pain] -Is Patient Pain Free? Yes Musculoskeletal: No Muscle Wasting Neurological: Cranial nerves II-XII grossly intact Psych/Mental Status: Normal Affect Debridement Note Post-Debridement Measurements/Treatment WC - Nurse 2 - General Ulcer CM Notes Start: 03/19/18 09:26 Freq: Status: Active Protocol: Activity Type Activity Date Activity User E-Sign Co-Sign Detail Recorded Client Recorded Date Recorded By Document 10/04/18 09:59 MW [id number] 03/19/18 10:01 MW 03/19/18 09:59 Wound Center Nurse 2 1. L LATERAL LOWER EXTREMITY -Time 09:59 -Correct Patient Yes -Correct Side, Site, Position Yes -Correct Procedure Yes -Procedure Performed Yes -Type of Procedure Debridement -Clinical Debridement Subcutaneous -Post Debridement Size (cm) - Length 11.0 -Post Debridement Size (cm) - Width 2.5 -Post Debridement Size (cm) - Depth 0.1 -Total Square Cm 27.50 -Wound/Ulcer Outcome Not Healed -Ulcer Cleansing Rinsed/ Irrigated with Saline -Foul Odor after Cleansing No -Bioengineered Tissue No -Bleeding Controlled with Pressure -Treatment Response Procedure Tolerated Well Pain Scale: 0-10 Numeric Is Patient Pain Free? Yes Wound debrided: Left lower extremity Wound Grade/Stage: Stage III Type of Debridement: Excisional debridement Anesthesia Used: 4% Lidocaine Solution Depth: Down to and including healthy tissue, in the subcutaneous layer Percentage of wound debrided: 100 Instrument Used: 7mm curette Tissue Removed: Slough and devitalized tissue Severity: Fat Layer Exposed Amount of bleeding with debridement: Mild Bleeding Controlled with: Pressure Patient tolerated procedure well Assessment/Plan Active Problems Wound of left lower extremity (Chronic) Post debridement/hematoma evacuation. Assessment: Left lower extremity wound post I and D with delayed healing. Plan: Improving wound. Debridement done as documented above. Procedure was well tolerated. Continue Fibracol with Adaptic over top. Leave in for a week. Continue light 3M wraps. Follow up in 1 week. Low prealbumin. Premier drinks BID to TID. Elevate lower extremity when seated and in bed. All his questions were answered and he was asked to call with any further questions or concerns. Follow-up in 1 week. This note was generated with [employer] dictation software. It may contain incorrect words, spelling, and punctuation that were not noted in checking the note before signing.
--- NOTE | 2018-03-19 10:10 | PN.PCM_ITS ---
(1) Wound of left lower extremity Status: Chronic Current Visit: Yes Code(s): S81.802A - Unspecified open wound, left lower leg, initial encounter Comment: Post debridement/hematoma evacuation. Type of Wound Chief Complaint: Left lower extremity wound - Delayed healing. History of Wound: Mr. Chauhan is a 62yo with PMH as stated above who presented here due to delayed healing of his left lower extremity wound. Said to have developed a large hematoma after a fall and subsequent fibular fracture. Initially managed in the hospital ( [place] ) for left lower extremity cellulitis and was discharged to a AL. At the AL, he Incision and drainge of the hematoma with subsequent wound vac for 7 days. Since discontinuing the wound vac, he has applied a collagen dressing to the wound. He was recently discharged from the AL and plan is to get [facility] however, this has not been established. He feels well otherwise and denies chills, fever, nausea, vomitting or any change in his bowel habit. Progress of Wound: Improving. - Physical Exam Vital Signs Temp Pulse Resp BP 98.2 F 69 18 125/77 H 03/19/18 09:26 10 09:26 03/19/18 09:26 03/19/18 09:26 General: Alert, Oriented x3, Cooperative, No apparent distress HEENT: Atraumatic Oral: Moist Mucosa Neck: Supple Lungs: Normal air movement Abdomen: Non Tender Extremities: No cyanosis, Edema Skin: Ulcer/ Wound Wound Measurements and Assessment WC - Nurse 1 - General Ulcer Measurement Start: 03/19/18 09:26 Freq: Status: Active Protocol: Activity Type Activity Date Activity User E-Sign Co-Sign Detail Recorded Client Recorded Date Recorded By Document 03/19/18 09:26 RB [id number] 03/19/18 09:40 RB 03/19/18 09:26 Wound Center Nurse 1 [Ulcer Assessment] 1. L LATERAL LOWER EXTREMITY -Combined with other wound No -Current Size (cm) - Length 12 -Current Size (cm) - Width 2.5 -Current Size (cm) - Depth 0.1 -Total Square Cm 30.0 -Photo Taken No -Tunneling No -Undermining/Tunneling No -Circular Undermining No -Exudate Amt Medium (34-66%) -Exudate Type Serosanguineous -Wound Margin Distinct, Outline Attached -Granulation Amt Large (67-100%) -Granulation Quality Hyper- granulation Red -Slough/Fibrin Yes -Necrosis Amt Small (1-33%) -Necrotic Tissue Type Adherent Slough -Structure Exposed N/A -Texture (Kirstie-wound Skin Appearance) Assessed -Moisture (Kirstie-wound Skin Appearance Assessed ) -Color (Kirstie-wound Skin Appearance) Assessed Hemosiderin Staining -Temperature (Kirstie-wound Skin No Abnormality Appearance) (Pt Warm) -Tenderness on Palpation (Kirstie-wound No Skin Appearance) -Ulcer Cleansing Wound Cleanser -Foul Odor after Cleansing No -Anesthetic Used 4% Lidocaine Solution [Edema Assessment] -Lower Limb Edema Present Yes -Right Calf (cm) 39.5 -Right Ankle (cm) 22.6 -Left Calf (cm) 35.5 -Left Ankle (cm) 21 WC - Nurse 2 - General Ulcer CM Notes Start: 03/19/18 09:26 Freq: Status: Active Protocol: Activity Type Activity Date Activity User E-Sign Co-Sign Detail Recorded Client Recorded Date Recorded By Document 03/19/18 09:59 MW [id number] 03/19/18 10:01 MW 03/19/18 09:59 Wound Center Nurse 2 [Procedure/Treatment] 1. L LATERAL LOWER EXTREMITY -Time 09:59 -Correct Patient Yes -Correct Side, Site, Position Yes -Correct Procedure Yes -Procedure Performed Yes -Type of Procedure Debridement -Clinical Debridement Subcutaneous -Post Debridement Size (cm) - Length 11.0 -Post Debridement Size (cm) - Width 2.5 -Post Debridement Size (cm) - Depth 0.1 -Total Square Cm 27.50 -Wound/Ulcer Outcome Not Healed -Ulcer Cleansing Rinsed/ Irrigated with Saline -Foul Odor after Cleansing No -Bioengineered Tissue No -Bleeding Controlled with Pressure -Treatment Response Procedure Tolerated Well [See Physician Procedure note for Specifics] Pain Scale: 0-10 Numeric [Pain] -Is Patient Pain Free? Yes Musculoskeletal: No Muscle Wasting Neurological: Cranial nerves II-XII grossly intact Psych/Mental Status: Normal Affect Debridement Note Post-Debridement Measurements/Treatment WC - Nurse 2 - General Ulcer CM Notes Start: 03/19/18 09:26 Freq: Status: Active Protocol: Activity Type Activity Date Activity User E-Sign Co-Sign Detail Recorded Client Recorded Date Recorded By Document 10/04/18 09:59 MW [id number] 03/19/18 10:01 MW 03/19/18 09:59 Wound Center Nurse 2 1. L LATERAL LOWER EXTREMITY -Time 09:59 -Correct Patient Yes -Correct Side, Site, Position Yes -Correct Procedure Yes -Procedure Performed Yes -Type of Procedure Debridement -Clinical Debridement Subcutaneous -Post Debridement Size (cm) - Length 11.0 -Post Debridement Size (cm) - Width 2.5 -Post Debridement Size (cm) - Depth 0.1 -Total Square Cm 27.50 -Wound/Ulcer Outcome Not Healed -Ulcer Cleansing Rinsed/ Irrigated with Saline -Foul Odor after Cleansing No -Bioengineered Tissue No -Bleeding Controlled with Pressure -Treatment Response Procedure Tolerated Well Pain Scale: 0-10 Numeric Is Patient Pain Free? Yes Wound debrided: Left lower extremity Wound Grade/Stage: Stage III Type of Debridement: Excisional debridement Anesthesia Used: 4% Lidocaine Solution Depth: Down to and including healthy tissue, in the subcutaneous layer Percentage of wound debrided: 100 Instrument Used: 7mm curette Tissue Removed: Slough and devitalized tissue Severity: Fat Layer Exposed Amount of bleeding with debridement: Mild Bleeding Controlled with: Pressure Patient tolerated procedure well Assessment/Plan Active Problems Wound of left lower extremity (Chronic) Post debridement/hematoma evacuation. Assessment: Left lower extremity wound post I and D with delayed healing. Plan: Improving wound. Debridement done as documented above. Procedure was well tolerated. Continue Fibracol with Adaptic over top. Leave in for a week. Continue light 3M wraps. Follow up in 1 week. Low prealbumin. Premier drinks BID to TID. Elevate lower extremity when seated and in bed. All his questions were answered and he was asked to call with any further questions or concerns. Follow-up in 1 week. This note was generated with [employer] dictation software. It may contain incorrect words, spelling, and punctuation that were not noted in checking the note before signing.
[2018-03-26 09:21] VITALS: RESP 18; TEMP 36.6
--- NOTE | 2018-03-26 10:29 | PCM.WC.PN ---
(1) Wound of left lower extremity Status: Chronic Current Visit: Yes Code(s): S81.802A - Unspecified open wound, left lower leg, initial encounter Comment: Post debridement/hematoma evacuation. Type of Wound Chief Complaint: Left lower extremity wound - Delayed healing. History of Wound: Mr. Chauhan is a 62yo with PMH as stated above who presented here due to delayed healing of his left lower extremity wound. Said to have developed a large hematoma after a fall and subsequent fibular fracture. Initially managed in the hospital ( [place] ) for left lower extremity cellulitis and was discharged to a [facility]. At the [facility], he Incision and drainge of the hematoma with subsequent wound vac for 7 days. Since discontinuing the wound vac, he has applied a collagen dressing to the wound. He was recently discharged from the [facility] and plan is to get [facility] however, this has not been established. He feels well otherwise and denies chills, fever, nausea, vomitting or any change in his bowel habit. Progress of Wound: Improving. - Physical Exam Vital Signs Temp Pulse Resp BP 98 F 69 18 125/77 H 03/26/18 09:21 10 09:26 03/26/18 09:21 10 09:26 General: Alert, Oriented x3, Cooperative, No apparent distress HEENT: Atraumatic Oral: Moist Mucosa Neck: Supple Lungs: Normal air movement Extremities: No clubbing Skin: Ulcer/ Wound Wound Measurements and Assessment WC - Nurse 1 - General Ulcer Measurement Start: 03/19/18 09:26 Freq: Status: Active Protocol: Activity Type Activity Date Activity User E-Sign Co-Sign Detail Recorded Client Recorded Date Recorded By Document 03/26/18 09:21 [facility] [id number] 03/26/18 09:34 [facility] 03/26/18 09:21 Wound Center Nurse 1 [Ulcer Assessment] 1. L LATERAL LOWER EXTREMITY -Combined with other wound No -Current Size (cm) - Length 11.2 -Current Size (cm) - Width 2.7 -Current Size (cm) - Depth 0.1 -Total Square Cm 30.24 -Date of Last Picture (Recall this 03/26/18 field) -Photo Taken Yes -Epithelialization Small 1-33% -Tunneling No -Undermining/Tunneling No -Circular Undermining No -Exudate Amt Large (67-100%) -Exudate Type Serosanguineous -Wound Margin Distinct, Outline Attached -Granulation Amt Large (67-100%) -Granulation Quality Hyper- granulation Red -Slough/Fibrin Yes -Necrosis Amt Small (1-33%) -Necrotic Tissue Type Adherent Slough -Texture (Kirstie-wound Skin Appearance) Scarring -Moisture (Kirstie-wound Skin Appearance Dry/Scaly ) -Color (Kirstie-wound Skin Appearance) Assessed -Temperature (Kirstie-wound Skin No Abnormality Appearance) (Pt Warm) -Tenderness on Palpation (Kirstie-wound No Skin Appearance) -Ulcer Cleansing Wound Cleanser -Foul Odor after Cleansing No -Anesthetic Used 4% Lidocaine Solution [Edema Assessment] -Lower Limb Edema Present Yes -Right Calf (cm) 43 -Right Ankle (cm) 26.5 -Left Calf (cm) 35 -Left Ankle (cm) 22.1 WC - Nurse 2 - General Ulcer CM Notes Start: 03/19/18 09:26 Freq: Status: Active Protocol: Activity Type Activity Date Activity User E-Sign Co-Sign Detail Recorded Client Recorded Date Recorded By Document 03/26/18 10:13 MW [id number] 03/26/18 10:15 MW 03/26/18 10:13 Wound Center Nurse 2 [Procedure/Treatment] 1. L LATERAL LOWER EXTREMITY -Time 10:15 -Correct Patient Yes -Correct Side, Site, Position Yes -Correct Procedure Yes -Procedure Performed Yes -Type of Procedure Debridement -Clinical Debridement Subcutaneous -Post Debridement Size (cm) - Length 10.5 -Post Debridement Size (cm) - Width 2.3 -Post Debridement Size (cm) - Depth 0.1 -Total Square Cm 24.15 -Wound/Ulcer Outcome Not Healed -Ulcer Cleansing Rinsed/ Irrigated with Saline -Foul Odor after Cleansing No -Bioengineered Tissue No -Bleeding Controlled with Pressure -Treatment Response Procedure Tolerated Well [See Physician Procedure note for Specifics] Pain Scale: 0-10 Numeric [Pain] -Is Patient Pain Free? Yes Musculoskeletal: No Muscle Wasting Neurological: Cranial nerves II-XII grossly intact Psych/Mental Status: Normal Affect Debridement Note Post-Debridement Measurements/Treatment WC - Nurse 2 - General Ulcer CM Notes Start: 03/19/18 09:26 Freq: Status: Active Protocol: Activity Type Activity Date Activity User E-Sign Co-Sign Detail Recorded Client Recorded Date Recorded By Document 03/19/18 09:59 MW [id number] 03/19/18 10:01 MW Document 03/26/18 10:13 MW [id number] 03/26/18 10:15 MW 03/19/18 03/26/18 09:59 10:13 Wound Center Nurse 2 1. L LATERAL LOWER EXTREMITY -Time 09:59 10:15 -Correct Patient Yes Yes -Correct Side, Site, Position Yes Yes -Correct Procedure Yes Yes -Procedure Performed Yes Yes -Type of Procedure Debridement Debridement -Clinical Debridement Subcutaneous Subcutaneous -Post Debridement Size (cm) - Length 11.0 10.5 -Post Debridement Size (cm) - Width 2.5 2.3 -Post Debridement Size (cm) - Depth 0.1 0.1 -Total Square Cm 27.50 24.15 -Wound/Ulcer Outcome Not Healed Not Healed -Ulcer Cleansing Rinsed/ Rinsed/ Irrigated with Irrigated with Saline Saline -Foul Odor after Cleansing No No -Bioengineered Tissue No No -Bleeding Controlled with Pressure Pressure -Treatment Response Procedure Procedure Tolerated Well Tolerated Well Pain Scale: 0-10 Numeric Is Patient Pain Free? Yes Yes Wound debrided: Left lower extremity lateral Wound Grade/Stage: Stage III Type of Debridement: Excisional debridement Anesthesia Used: 4% Lidocaine Solution Depth: Down to and including healthy tissue, in the subcutaneous layer Percentage of wound debrided: 100 Instrument Used: 7mm curette Tissue Removed: Slough and devitalized tissue Severity: Fat Layer Exposed Amount of bleeding with debridement: Mild Bleeding Controlled with: Pressure Patient tolerated procedure well Assessment/Plan Active Problems Wound of left lower extremity (Chronic) Post debridement/hematoma evacuation. Assessment: Left lower extremity wound post I and D with delayed healing. Plan: Wound continues to show good improvement. Debridement done as documented above. Procedure was well tolerated. Continue Fibracol with Adaptic over top. Leave in for a week. Continue light 3M wraps. Follow up in 1 week for nurse visit to change the 3M's and Fibracol. And follow-up with me in 2 weeks. Low prealbumin. Premier drinks BID to TID. Elevate lower extremity when seated and in bed. All his questions were answered and he was asked to call with any further questions or concerns. Follow-up in 2 weeks. This note was generated with [employer] software. It may contain incorrect words, spelling, and punctuation that were not noted in checking the note before signing.
[2018-04-02 09:30] VITALS: BP 109/79; PULSE 50; RESP 16; TEMP 36.5
[2018-04-09 10:11] VITALS: BP 98/52; PULSE 42; RESP 18; TEMP 36.2
--- NOTE | 2018-04-09 11:22 | PN.PCM_ITS ---
(1) Wound of left lower extremity Status: Chronic Current Visit: Yes Code(s): S81.802A - Unspecified open wound, left lower leg, initial encounter Comment: Post debridement/hematoma evacuation. Type of Wound Chief Complaint: Left lower extremity wound - Delayed healing. History of Wound: Mr. Chauhan is a 62yo with PMH as stated above who presented here due to delayed healing of his left lower extremity wound. Said to have developed a large hematoma after a fall and subsequent fibular fracture. Initially managed in the hospital ( [facility] ) for left lower extremity cellulitis and was discharged to a [facility]. At the [facility], he Incision and drainge of the hematoma with subsequent wound vac for 7 days. Since discontinuing the wound vac, he has applied a collagen dressing to the wound. He was recently discharged from the [facility] and plan is to get [facility] however, this has not been established. He feels well otherwise and denies chills, fever, nausea, vomitting or any change in his bowel habit. Progress of Wound: Improving. - Physical Exam Vital Signs Temp Pulse Resp BP 97.1 F L 42 L 18 98/52 L 04/09/18 10:11 04/09/18 10:11 04/09/18 10:11 04/09/18 10:11 General: Alert, Oriented x3, Cooperative, No apparent distress HEENT: Atraumatic Oral: Moist Mucosa Neck: Supple Lungs: Normal air movement Abdomen: Non Tender Extremities: No cyanosis, Edema Skin: Ulcer/ Wound Wound Measurements and Assessment WC - Nurse 1 - General Ulcer Measurement Start: 03/19/18 09:26 Freq: Status: Active Protocol: Activity Type Activity Date Activity User E-Sign Co-Sign Detail Recorded Client Recorded Date Recorded By Document 04/09/18 10:11 AN [id number] 04/09/18 10:27 AN 04/09/18 10:11 Wound Center Nurse 1 [Ulcer Assessment] 1. L LATERAL LOWER EXTREMITY -Combined with other wound No -Current Size (cm) - Length 8.2 -Current Size (cm) - Width 2.0 -Current Size (cm) - Depth 0.1 -Total Square Cm 16.40 -Photo Taken No -Epithelialization Small 1-33% -Tunneling No -Undermining/Tunneling No -Classification - Thickness Full Thickness without Exposed Support Structure -Exudate Amt Medium (34-66%) -Exudate Type Serosanguineous -Wound Margin Distinct, Outline Attached -Granulation Amt Large (67-100%) -Granulation Quality Pale Red -Slough/Fibrin Yes -Necrosis Amt Small (1-33%) -Necrotic Tissue Type Adherent Slough -Structure Exposed Fat Layer Exposed -Texture (Kirstie-wound Skin Appearance) No Abnormality -Moisture (Kirstie-wound Skin Appearance No Abnormality ) -Color (Kirstie-wound Skin Appearance) No Abnormality -Temperature (Kirstie-wound Skin No Abnormality Appearance) (Pt Warm) -Tenderness on Palpation (Kirstie-wound Yes Skin Appearance) -Ulcer Cleansing Rinsed/ Irrigated with Saline -Foul Odor after Cleansing No -Anesthetic Used 4% Lidocaine Solution [Edema Assessment] -Left Calf (cm) 35 -Left Ankle (cm) 23 WC - Nurse 2 - General Ulcer CM Notes Start: 03/19/18 09:26 Freq: Status: Active Protocol: Activity Type Activity Date Activity User E-Sign Co-Sign Detail Recorded Client Recorded Date Recorded By Document 04/09/18 10:37 MW [id number] 04/09/18 10:41 MW 04/09/18 10:37 Wound Center Nurse 2 [Procedure/Treatment] 1. L LATERAL LOWER EXTREMITY -Time 10:38 -Correct Patient Yes -Correct Side, Site, Position Yes -Correct Procedure Yes -Procedure Performed Yes -Type of Procedure Debridement -Clinical Debridement Subcutaneous -Post Debridement Size (cm) - Length 7.7 -Post Debridement Size (cm) - Width 1.6 -Post Debridement Size (cm) - Depth 0.1 -Total Square Cm 12.32 -Wound/Ulcer Outcome Not Healed -Ulcer Cleansing Rinsed/ Irrigated with Saline -Foul Odor after Cleansing No -Bioengineered Tissue No -Bleeding Controlled with Pressure -Treatment Response Procedure Tolerated Well [See Physician Procedure note for Specifics] Pain Scale: 0-10 Numeric [Pain] -Is Patient Pain Free? Yes Musculoskeletal: No Muscle Wasting Neurological: Cranial nerves II-XII grossly intact Psych/Mental Status: Normal Affect Debridement Note Post-Debridement Measurements/Treatment WC - Nurse 2 - General Ulcer CM Notes Start: 03/19/18 09:26 Freq: Status: Active Protocol: Activity Type Activity Date Activity User E-Sign Co-Sign Detail Recorded Client Recorded Date Recorded By Document 03/19/18 09:59 MW [id number] 03/19/18 10:01 MW Document 10/11/18 10:13 MW [id number] 03/26/18 10:15 MW Document 04/09/18 10:37 MW [id number] 04/09/18 10:41 MW 03/19/18 03/26/18 04/09/18 09:59 10:13 10:37 Wound Center Nurse 2 1. L LATERAL LOWER EXTREMITY -Time 09:59 10:15 10:38 -Correct Patient Yes Yes Yes -Correct Side, Site, Position Yes Yes Yes -Correct Procedure Yes Yes Yes -Procedure Performed Yes Yes Yes -Type of Procedure Debridement Debridement Debridement -Clinical Debridement Subcutaneous Subcutaneous Subcutaneous -Post Debridement Size (cm) - Length 11.0 10.5 7.7 -Post Debridement Size (cm) - Width 2.5 2.3 1.6 -Post Debridement Size (cm) - Depth 0.1 0.1 0.1 -Total Square Cm 27.50 24.15 12.32 -Wound/Ulcer Outcome Not Healed Not Healed Not Healed -Ulcer Cleansing Rinsed/ Rinsed/ Rinsed/ Irrigated with Irrigated with Irrigated with Saline Saline Saline -Foul Odor after Cleansing No No No -Bioengineered Tissue No No No -Bleeding Controlled with Pressure Pressure Pressure -Treatment Response Procedure Procedure Procedure Tolerated Well Tolerated Well Tolerated Well Pain Scale: 0-10 Numeric Is Patient Pain Free? Yes Yes Yes Wound debrided: Left lower extremity Wound Grade/Stage: Stage III Type of Debridement: Excisional debridement Anesthesia Used: 4% Lidocaine Solution Depth: Down to and including healthy tissue Percentage of wound debrided: 100 Instrument Used: 7mm curette Tissue Removed: Slough and devitalized tissue Severity: Fat Layer Exposed Amount of bleeding with debridement: Mild Bleeding Controlled with: Pressure Patient tolerated procedure well Assessment/Plan Active Problems Wound of left lower extremity (Chronic) Post debridement/hematoma evacuation. Assessment: Left lower extremity wound post I and D with delayed healing. Plan: Wound continues to show good improvement. Debridement done as documented above. Procedure was well tolerated. Continue Fibracol with Adaptic over top. Leave in for a week. Continue light 3M wraps. Low prealbumin. Premier drinks BID to TID. Elevate lower extremity when seated and in bed. All his questions were answered and he was asked to call with any further questions or concerns. Follow-up in 1 week. This note was generated with Dragon dictation software. It may contain incorrect words, spelling, and punctuation that were not noted in checking the note before signing.
== END 2018-04-15 23:59 ==
LOC: WC 09:30
PROVIDERS: Family Provider Family Medicine; PCP Family Medicine; Visit Provider Internal Medicine
DX: S80.12XA Contusion of left lower leg, initial encounter (principal); W19.XXXA Unspecified fall, initial encounter
CPT/HCPCS: 11042; 11045; 29581; 99212; G0463

== ENCOUNTER 2018-05-14 09:15 | Outpatient (RCR) | payer OTHER, SELFPAY ==
[2018-04-16 01:16] VITALS: BP 98/52; PULSE 42; RESP 18; TEMP 36.2
[2018-04-16 09:59] VITALS: BP 107/60; PULSE 46; RESP 16; TEMP 36.6
--- NOTE | 2018-04-16 10:52 | PN.PCM_ITS ---
(1) Wound of left lower extremity Status: Chronic Current Visit: Yes Code(s): S81.802A - Unspecified open wound, left lower leg, initial encounter Comment: Post debridement/hematoma evacuation. Type of Wound Chief Complaint: Left lower extremity wound - Delayed healing. History of Wound: Mr. Chauhan is a 62yo with PMH as stated above who presented here due to delayed healing of his left lower extremity wound. Said to have developed a large hematoma after a fall and subsequent fibular fracture. Initially managed in the hospital ( [facility] ) for left lower extremity cellulitis and was discharged to a [facility]. At the [facility], he Incision and drainge of the hematoma with subsequent wound vac for 7 days. Since discontinuing the wound vac, he has applied a collagen dressing to the wound. He was recently discharged from the [facility] and plan is to get [facility] however, this has not been established. He feels well otherwise and denies chills, fever, nausea, vomitting or any change in his bowel habit. Progress of Wound: Improving. - Physical Exam Vital Signs Temp Pulse Resp BP 97.8 F 46 L 16 107/60 04/16/18 09:59 04/16/18 09:59 04/16/18 09:59 04/16/18 09:59 General: Alert, Oriented x3, Cooperative, No apparent distress HEENT: Atraumatic Oral: Moist Mucosa Neck: Supple Lungs: Normal air movement Abdomen: Non Tender, Obese Extremities: No cyanosis, Edema Skin: Ulcer/ Wound Wound Measurements and Assessment WC - Nurse 1 - General Ulcer Measurement Start: 04/16/18 09:58 Freq: Status: Active Protocol: Activity Type Activity Date Activity User E-Sign Co-Sign Detail Recorded Client Recorded Date Recorded By Document 04/16/18 09:59 [id number] 04/16/18 10:06 04/16/18 09:59 Wound Center Nurse 1 [Ulcer Assessment] 1. L LATERAL LOWER EXTREMITY -Combined with other wound No -Current Size (cm) - Length 7.8 -Current Size (cm) - Width 1.2 -Current Size (cm) - Depth 0.1 -Total Square Cm 9.36 -Photo Taken No -Epithelialization Small 1-33% -Tunneling No -Undermining/Tunneling No -Circular Undermining No -Exudate Amt Medium (34-66%) -Exudate Type Serous -Wound Margin Distinct, Outline Attached -Granulation Amt Large (67-100%) -Granulation Quality Red -Slough/Fibrin Yes -Necrosis Amt None Present (0 %) -Necrotic Tissue Type Adherent Slough -Structure Exposed None/Limited to Skin Breakdown -Texture (Kirstie-wound Skin Appearance) Assessed Scarring -Moisture (Kirstie-wound Skin Appearance No Abnormality ) Assessed -Color (Kirstie-wound Skin Appearance) No Abnormality Assessed -Temperature (Kirstie-wound Skin No Abnormality Appearance) (Pt Warm) -Tenderness on Palpation (Kirstie-wound Yes Skin Appearance) -Ulcer Cleansing Rinsed/ Irrigated with Saline -Foul Odor after Cleansing No -Anesthetic Used 4% Lidocaine Solution [Edema Assessment] -Lower Limb Edema Present No -Left Calf (cm) 35.5 -Left Ankle (cm) 22 WC - Nurse 2 - General Ulcer CM Notes Start: 04/16/18 09:58 Freq: Status: Active Protocol: Activity Type Activity Date Activity User E-Sign Co-Sign Detail Recorded Client Recorded Date Recorded By Document 04/16/18 10:22 MW [id number] 04/16/18 10:23 MW 04/16/18 10:22 Wound Center Nurse 2 [Procedure/Treatment] 1. L LATERAL LOWER EXTREMITY -Time 10:23 -Correct Patient Yes -Correct Side, Site, Position Yes -Correct Procedure Yes -Procedure Performed Yes -Type of Procedure Debridement -Clinical Debridement Subcutaneous -Post Debridement Size (cm) - Length 7.5 -Post Debridement Size (cm) - Width 1.5 -Post Debridement Size (cm) - Depth 0.1 -Total Square Cm 11.25 -Wound/Ulcer Outcome Not Healed -Ulcer Cleansing Rinsed/ Irrigated with Saline -Foul Odor after Cleansing No -Bioengineered Tissue No -Bleeding Controlled with Pressure -Treatment Response Procedure Tolerated Well [See Physician Procedure note for Specifics] Pain Scale: 0-10 Numeric [Pain] -Is Patient Pain Free? Yes Musculoskeletal: No Muscle Wasting Neurological: Cranial nerves II-XII grossly intact Psych/Mental Status: Normal Affect Debridement Note Post-Debridement Measurements/Treatment WC - Nurse 2 - General Ulcer CM Notes Start: 04/16/18 09:58 Freq: Status: Active Protocol: Activity Type Activity Date Activity User E-Sign Co-Sign Detail Recorded Client Recorded Date Recorded By Document 04/16/18 10:22 MW [id number] 04/16/18 10:23 MW 04/16/18 10:22 Wound Center Nurse 2 1. L LATERAL LOWER EXTREMITY -Time 10:23 -Correct Patient Yes -Correct Side, Site, Position Yes -Correct Procedure Yes -Procedure Performed Yes -Type of Procedure Debridement -Clinical Debridement Subcutaneous -Post Debridement Size (cm) - Length 7.5 -Post Debridement Size (cm) - Width 1.5 -Post Debridement Size (cm) - Depth 0.1 -Total Square Cm 11.25 -Wound/Ulcer Outcome Not Healed -Ulcer Cleansing Rinsed/ Irrigated with Saline -Foul Odor after Cleansing No -Bioengineered Tissue No -Bleeding Controlled with Pressure -Treatment Response Procedure Tolerated Well Pain Scale: 0-10 Numeric Is Patient Pain Free? Yes Wound debrided: Left lower extremity Wound Grade/Stage: Stage III Type of Debridement: Excisional debridement Anesthesia Used: 4% Lidocaine Solution Depth: Down to and including healthy tissue, in the subcutaneous layer Percentage of wound debrided: 100 Instrument Used: 7mm curette Tissue Removed: Devitalized tissue and biofilm Severity: Fat Layer Exposed Amount of bleeding with debridement: Mild Bleeding Controlled with: Pressure Patient tolerated procedure well Assessment/Plan Active Problems Wound of left lower extremity (Chronic) Post debridement/hematoma evacuation. Assessment: Left lower extremity wound post I and D with delayed healing. Plan: Wound continues to show good improvement. Debridement done as documented above. Procedure was well tolerated. Will switch to Promogran with Adaptic over top. Leave in for a week. Continue light 3M wraps. Low prealbumin. Premier drinks BID to TID. Elevate lower extremity when seated and in bed. All his questions were answered and he was asked to call with any further questions or concerns. Follow-up in 1 week. This note was generated with [employer] software. It may contain incorrect words, spelling, and punctuation that were not noted in checking the note before signing.
[2018-04-23 09:37] VITALS: BP 146/89; PULSE 51; RESP 16; TEMP 36.8
--- NOTE | 2018-04-23 11:27 | PCM.WC.PN ---
(1) Wound of left lower extremity Status: Chronic Current Visit: Yes Code(s): S81.802A - Unspecified open wound, left lower leg, initial encounter Comment: Post debridement/hematoma evacuation. Type of Wound Chief Complaint: Left lower extremity wound - Delayed healing. History of Wound: Mr. Chauhan is a 62yo with PMH as stated above who presented here due to delayed healing of his left lower extremity wound. Said to have developed a large hematoma after a fall and subsequent fibular fracture. Initially managed in the hospital ( [facility] ) for left lower extremity cellulitis and was discharged to a [facility]. At the [facility], he Incision and drainge of the hematoma with subsequent wound vac for 7 days. Since discontinuing the wound vac, he has applied a collagen dressing to the wound. He was recently discharged from the [facility] and plan is to get [facility] however, this has not been established. He feels well otherwise and denies chills, fever, nausea, vomitting or any change in his bowel habit. Progress of Wound: Improving. - Physical Exam Vital Signs Temp Pulse Resp BP 98.2 F 51 L 16 146/89 H 04/23/18 09:37 04/23/18 09:37 04/23/18 09:37 04/23/18 09:37 General: Alert, Oriented x3, Cooperative HEENT: Atraumatic Oral: Moist Mucosa Neck: Supple Lungs: Normal air movement Extremities: No cyanosis Skin: Ulcer/ Wound Wound Measurements and Assessment WC - Nurse 1 - General Ulcer Measurement Start: 04/16/18 09:58 Freq: Status: Active Protocol: Activity Type Activity Date Activity User E-Sign Co-Sign Detail Recorded Client Recorded Date Recorded By Document 04/23/18 09:37 [id number] 04/23/18 09:42 04/23/18 09:37 Wound Center Nurse 1 [Ulcer Assessment] 1. L LATERAL LOWER EXTREMITY -Combined with other wound No -Current Size (cm) - Length 7.5 -Current Size (cm) - Width 1.1 -Current Size (cm) - Depth 0.1 -Total Square Cm 8.25 -Date of Last Picture (Recall this 04/23/18 field) -Photo Taken Yes -Epithelialization Small 1-33% -Tunneling No -Undermining/Tunneling No -Circular Undermining No -Exudate Amt Medium (34-66%) -Exudate Type Serosanguineous -Wound Margin Distinct, Outline Attached -Granulation Amt Large (67-100%) -Granulation Quality [place] Red -Slough/Fibrin Yes -Necrosis Amt Small (1-33%) -Necrotic Tissue Type Adherent Slough -Texture (Kirstie-wound Skin Appearance) Assessed Scarring -Moisture (Kirstie-wound Skin Appearance Assessed ) Dry/Scaly -Color (Kirstie-wound Skin Appearance) No Abnormality Assessed -Temperature (Kirstie-wound Skin No Abnormality Appearance) (Pt Warm) -Tenderness on Palpation (Kirstie-wound No Skin Appearance) -Ulcer Cleansing Wound Cleanser -Foul Odor after Cleansing No -Anesthetic Used 4% Lidocaine Solution [Edema Assessment] -Left Calf (cm) 35.5 -Left Ankle (cm) 23.5 WC - Nurse 2 - General Ulcer CM Notes Start: 04/16/18 09:58 Freq: Status: Active Protocol: Activity Type Activity Date Activity User E-Sign Co-Sign Detail Recorded Client Recorded Date Recorded By Document 04/23/18 09:49 MW [id number] 04/23/18 09:53 MW 04/23/18 09:49 Wound Center Nurse 2 [Procedure/Treatment] 1. L LATERAL LOWER EXTREMITY -Time 09:49 -Correct Patient Yes -Correct Side, Site, Position Yes -Correct Procedure Yes -Procedure Performed Yes -Type of Procedure Debridement -Clinical Debridement Subcutaneous -Post Debridement Size (cm) - Length 7.5 -Post Debridement Size (cm) - Width 1.2 -Post Debridement Size (cm) - Depth 0.1 -Total Square Cm 9.00 -Wound/Ulcer Outcome Not Healed -Ulcer Cleansing Rinsed/ Irrigated with Saline -Foul Odor after Cleansing No -Bioengineered Tissue No -Bleeding Controlled with Pressure -Treatment Response Procedure Tolerated Well [See Physician Procedure note for Specifics] Pain Scale: 0-10 Numeric [Pain] -Is Patient Pain Free? Yes Musculoskeletal: No Muscle Wasting Neurological: Cranial nerves II-XII grossly intact Psych/Mental Status: Normal Affect Debridement Note Post-Debridement Measurements/Treatment WC - Nurse 2 - General Ulcer CM Notes Start: 04/16/18 09:58 Freq: Status: Active Protocol: Activity Type Activity Date Activity User E-Sign Co-Sign Detail Recorded Client Recorded Date Recorded By Document 04/16/18 10:22 MW [id number] 04/16/18 10:23 MW Document 04/23/18 09:49 MW [id number] 04/23/18 09:53 MW 04/16/18 04/23/18 10:22 09:49 Wound Center Nurse 2 1. L LATERAL LOWER EXTREMITY -Time 10:23 09:49 -Correct Patient Yes Yes -Correct Side, Site, Position Yes Yes -Correct Procedure Yes Yes -Procedure Performed Yes Yes -Type of Procedure Debridement Debridement -Clinical Debridement Subcutaneous Subcutaneous -Post Debridement Size (cm) - Length 7.5 7.5 -Post Debridement Size (cm) - Width 1.5 1.2 -Post Debridement Size (cm) - Depth 0.1 0.1 -Total Square Cm 11.25 9.00 -Wound/Ulcer Outcome Not Healed Not Healed -Ulcer Cleansing Rinsed/ Rinsed/ Irrigated with Irrigated with Saline Saline -Foul Odor after Cleansing No No -Bioengineered Tissue No No -Bleeding Controlled with Pressure Pressure -Treatment Response Procedure Procedure Tolerated Well Tolerated Well Pain Scale: 0-10 Numeric Is Patient Pain Free? Yes Yes Wound debrided: Left lower extremity Wound Grade/Stage: Stage III Type of Debridement: Excisional debridement Anesthesia Used: 4% Lidocaine Solution Depth: Down to and including healthy tissue, in the subcutaneous layer Percentage of wound debrided: 100 Instrument Used: 7mm curette Tissue Removed: Slough and devitalized tissue Severity: Fat Layer Exposed Amount of bleeding with debridement: Mild Bleeding Controlled with: Pressure Patient tolerated procedure well Assessment/Plan Active Problems Wound of left lower extremity (Chronic) Post debridement/hematoma evacuation. Assessment: Left lower extremity wound post I and D with delayed healing. Plan: Minimal improvement in the past week. Debridement done as documented above. Procedure was well tolerated. Continue Promogran with Adaptic over top. Leave in for a week. Continue light 3M wraps. Low prealbumin. Premier drinks BID to TID. Elevate lower extremity when seated and in bed. All his questions were answered and he was asked to call with any further questions or concerns. Follow-up in 1 week. This note was generated with [employer] software. It may contain incorrect words, spelling, and punctuation that were not noted in checking the note before signing.
[2018-04-30 09:36] VITALS: BP 126/73; PULSE 49; RESP 16; TEMP 36.3
--- NOTE | 2018-04-30 12:12 | PCM.WC.PN ---
(1) Wound of left lower extremity Status: Chronic Current Visit: Yes Code(s): S81.802A - Unspecified open wound, left lower leg, initial encounter Comment: Post debridement/hematoma evacuation. Type of Wound Chief Complaint: Left lower extremity wound - Delayed healing. History of Wound: Mr. Chauhan is a 62yo with PMH as stated above who presented here due to delayed healing of his left lower extremity wound. Said to have developed a large hematoma after a fall and subsequent fibular fracture. Initially managed in the hospital ( [place] ) for left lower extremity cellulitis and was [facility] to a [facility]. At the [place], he Incision and drainge of the hematoma with subsequent wound vac for 7 days. Since discontinuing the wound vac, he has applied a collagen dressing to the wound. He was recently discharged from the [place] and plan is to get [facility] however, this has not been established. He feels well otherwise and denies chills, fever, nausea, vomitting or any change in his bowel habit. Progress of Wound: Stable. No concerns at this time. - Physical Exam Vital Signs Temp Pulse Resp BP 97.3 F L 49 L 16 126/73 H 04/30/18 09:36 04/30/18 09:36 04/30/18 09:36 04/30/18 09:36 General: Alert, Oriented x3, Cooperative, No apparent distress HEENT: Atraumatic Oral: Moist Mucosa Neck: Supple Lungs: Normal air movement Skin: Ulcer/ Wound Wound Measurements and Assessment WC - Nurse 1 - General Ulcer Measurement Start: 04/16/18 09:58 Freq: Status: Active Protocol: Activity Type Activity Date Activity User E-Sign Co-Sign Detail Recorded Client Recorded Date Recorded By Document 04/30/18 09:36 [id number] 04/30/18 09:38 04/30/18 09:36 Wound Center Nurse 1 [Ulcer Assessment] 1. L LATERAL LOWER EXTREMITY -Combined with other wound No -Current Size (cm) - Length 7.4 -Current Size (cm) - Width 1.8 -Current Size (cm) - Depth 0.1 -Total Square Cm 13.32 -Photo Taken No -Epithelialization None Present -Tunneling No -Undermining/Tunneling No -Circular Undermining No -Exudate Amt Medium (34-66%) -Exudate Type Serosanguineous -Wound Margin Distinct, Outline Attached -Granulation Amt Medium (34-66%) -Granulation Quality Red -Slough/Fibrin Yes -Necrosis Amt None Present (0 %) -Necrotic Tissue Type Adherent Slough -Structure Exposed None/Limited to Skin Breakdown -Texture (Kirstie-wound Skin Appearance) Scarring -Moisture (Kirstie-wound Skin Appearance Assessed ) -Color (Kirstie-wound Skin Appearance) No Abnormality Assessed -Temperature (Kirstie-wound Skin No Abnormality Appearance) (Pt Warm) -Tenderness on Palpation (Kirstie-wound No Skin Appearance) -Ulcer Cleansing Wound Cleanser -Foul Odor after Cleansing No -Anesthetic Used 5% Lidocaine Gel [Edema Assessment] -Lower Limb Edema Present No -Left Calf (cm) 35.5 -Left Ankle (cm) 21.5 WC - Nurse 2 - General Ulcer CM Notes Start: 04/16/18 09:58 Freq: Status: Active Protocol: Activity Type Activity Date Activity User E-Sign Co-Sign Detail Recorded Client Recorded Date Recorded By Document 04/30/18 09:58 MW [id number] 04/30/18 10:01 MW 04/30/18 09:58 Wound Center Nurse 2 [Procedure/Treatment] 1. L LATERAL LOWER EXTREMITY -Time 09:58 -Correct Patient Yes -Correct Side, Site, Position Yes -Correct Procedure Yes -Procedure Performed Yes -Type of Procedure Debridement -Clinical Debridement Subcutaneous -Post Debridement Size (cm) - Length 7.0 -Post Debridement Size (cm) - Width 2.0 -Post Debridement Size (cm) - Depth 0.1 -Total Square Cm 14.00 -Wound/Ulcer Outcome Not Healed -Ulcer Cleansing Rinsed/ Irrigated with Saline -Foul Odor after Cleansing No -Bioengineered Tissue No -Bleeding Controlled with Pressure -Treatment Response Procedure Tolerated Well [See Physician Procedure note for Specifics] Pain Scale: 0-10 Numeric [Pain] -Is Patient Pain Free? Yes Musculoskeletal: No Muscle Wasting Neurological: Cranial nerves II-XII grossly intact Psych/Mental Status: Normal Affect Debridement Note Post-Debridement Measurements/Treatment WC - Nurse 2 - General Ulcer CM Notes Start: 04/16/18 09:58 Freq: Status: Active Protocol: Activity Type Activity Date Activity User E-Sign Co-Sign Detail Recorded Client Recorded Date Recorded By Document 04/16/18 10:22 MW [id number] 04/16/18 10:23 MW Document 04/23/18 09:49 MW [id number] 04/23/18 09:53 MW Document 04/30/18 09:58 MW [id number] 04/30/18 10:01 MW 04/16/18 04/23/18 04/30/18 10:22 09:49 09:58 Wound Center Nurse 2 1. L LATERAL LOWER EXTREMITY -Time 10:23 09:49 09:58 -Correct Patient Yes Yes Yes -Correct Side, Site, Position Yes Yes Yes -Correct Procedure Yes Yes Yes -Procedure Performed Yes Yes Yes -Type of Procedure Debridement Debridement Debridement -Clinical Debridement Subcutaneous Subcutaneous Subcutaneous -Post Debridement Size (cm) - Length 7.5 7.5 7.0 -Post Debridement Size (cm) - Width 1.5 1.2 2.0 -Post Debridement Size (cm) - Depth 0.1 0.1 0.1 -Total Square Cm 11.25 9.00 14.00 -Wound/Ulcer Outcome Not Healed Not Healed Not Healed -Ulcer Cleansing Rinsed/ Rinsed/ Rinsed/ Irrigated with Irrigated with Irrigated with Saline Saline Saline -Foul Odor after Cleansing No No No -Bioengineered Tissue No No No -Bleeding Controlled with Pressure Pressure Pressure -Treatment Response Procedure Procedure Procedure Tolerated Well Tolerated Well Tolerated Well Pain Scale: 0-10 Numeric Is Patient Pain Free? Yes Yes Yes Wound debrided: Left lower extremity Wound Grade/Stage: Stage III Type of Debridement: Excisional debridement Anesthesia Used: 4% Lidocaine Solution Depth: Down to and including healthy tissue, in the subcutaneous layer Percentage of wound debrided: 100 Instrument Used: 7mm curette Tissue Removed: Slough and devitalized tissue Severity: Fat Layer Exposed Amount of bleeding with debridement: Mild Bleeding Controlled with: Pressure Patient tolerated procedure well Assessment/Plan Active Problems Wound of left lower extremity (Chronic) Post debridement/hematoma evacuation. Assessment: Left lower extremity wound post I and D with delayed healing. Plan: No significant improvement in the past week. Wound appears to be stalling. Debridement done as documented above. Procedure was well tolerated. Continue Promogran with Adaptic over top. Leave in for a week. Continue light 3M wraps. Follow-up in 1 week for nurse visit to change wraps and dressing. If no significant improvement in 2 weeks we will consider switching to a skin substitute. Low prealbumin. Premier drinks BID to TID. Elevate lower extremity when seated and in bed. All his questions were answered and he was asked to call with any further questions or concerns. Follow-up in 2 weeks. This note was generated with [employer] dictation software. It may contain incorrect words, spelling, and punctuation that were not noted in checking the note before signing.
--- NOTE | 2018-04-30 12:15 | PN.PCM_ITS ---
(1) Wound of left lower extremity Status: Chronic Current Visit: Yes Code(s): S81.802A - Unspecified open wound, left lower leg, initial encounter Comment: Post debridement/hematoma evacuation. Type of Wound Chief Complaint: Left lower extremity wound - Delayed healing. History of Wound: Mr. Chauhan is a 62yo with PMH as stated above who presented here due to delayed healing of his left lower extremity wound. Said to have developed a large hematoma after a fall and subsequent fibular fracture. Initially managed in the hospital ( [place] ) for left lower extremity cellulitis and was discharged to a [place]. At the [place], he Incision and drainge of the hematoma with subsequent wound vac for 7 days. Since discontinuing the wound vac, he has applied a collagen dressing to the wound. He was recently discharged from the [place] and plan is to get [facility] however, this has not been established. He feels well otherwise and denies chills, fever, nausea, vomitting or any change in his bowel habit. Progress of Wound: Stable. No concerns at this time. - Physical Exam Vital Signs Temp Pulse Resp BP 97.3 F L 49 L 16 126/73 H 04/30/18 09:36 04/30/18 09:36 04/30/18 09:36 04/30/18 09:36 General: Alert, Oriented x3, Cooperative, No apparent distress HEENT: Atraumatic Oral: Moist Mucosa Neck: Supple Lungs: Normal air movement Skin: Ulcer/ Wound Wound Measurements and Assessment WC - Nurse 1 - General Ulcer Measurement Start: 04/16/18 09:58 Freq: Status: Active Protocol: Activity Type Activity Date Activity User E-Sign Co-Sign Detail Recorded Client Recorded Date Recorded By Document 04/30/18 09:36 [id number] 04/30/18 09:38 04/30/18 09:36 Wound Center Nurse 1 [Ulcer Assessment] 1. L LATERAL LOWER EXTREMITY -Combined with other wound No -Current Size (cm) - Length 7.4 -Current Size (cm) - Width 1.8 -Current Size (cm) - Depth 0.1 -Total Square Cm 13.32 -Photo Taken No -Epithelialization None Present -Tunneling No -Undermining/Tunneling No -Circular Undermining No -Exudate Amt Medium (34-66%) -Exudate Type Serosanguineous -Wound Margin Distinct, Outline Attached -Granulation Amt Medium (34-66%) -Granulation Quality Red -Slough/Fibrin Yes -Necrosis Amt None Present (0 %) -Necrotic Tissue Type Adherent Slough -Structure Exposed None/Limited to Skin Breakdown -Texture (Kirstie-wound Skin Appearance) Scarring -Moisture (Kirstie-wound Skin Appearance Assessed ) -Color (Kirstie-wound Skin Appearance) No Abnormality Assessed -Temperature (Kirstie-wound Skin No Abnormality Appearance) (Pt Warm) -Tenderness on Palpation (Kirstie-wound No Skin Appearance) -Ulcer Cleansing Wound Cleanser -Foul Odor after Cleansing No -Anesthetic Used 5% Lidocaine Gel [Edema Assessment] -Lower Limb Edema Present No -Left Calf (cm) 35.5 -Left Ankle (cm) 21.5 WC - Nurse 2 - General Ulcer CM Notes Start: 04/16/18 09:58 Freq: Status: Active Protocol: Activity Type Activity Date Activity User E-Sign Co-Sign Detail Recorded Client Recorded Date Recorded By Document 04/30/18 09:58 MW [id number] 04/30/18 10:01 MW 04/30/18 09:58 Wound Center Nurse 2 [Procedure/Treatment] 1. L LATERAL LOWER EXTREMITY -Time 09:58 -Correct Patient Yes -Correct Side, Site, Position Yes -Correct Procedure Yes -Procedure Performed Yes -Type of Procedure Debridement -Clinical Debridement Subcutaneous -Post Debridement Size (cm) - Length 7.0 -Post Debridement Size (cm) - Width 2.0 -Post Debridement Size (cm) - Depth 0.1 -Total Square Cm 14.00 -Wound/Ulcer Outcome Not Healed -Ulcer Cleansing Rinsed/ Irrigated with Saline -Foul Odor after Cleansing No -Bioengineered Tissue No -Bleeding Controlled with Pressure -Treatment Response Procedure Tolerated Well [See Physician Procedure note for Specifics] Pain Scale: 0-10 Numeric [Pain] -Is Patient Pain Free? Yes Musculoskeletal: No Muscle Wasting Neurological: Cranial nerves II-XII grossly intact Psych/Mental Status: Normal Affect Debridement Note Post-Debridement Measurements/Treatment WC - Nurse 2 - General Ulcer CM Notes Start: 04/16/18 09:58 Freq: Status: Active Protocol: Activity Type Activity Date Activity User E-Sign Co-Sign Detail Recorded Client Recorded Date Recorded By Document 04/16/18 10:22 MW [id number] 04/16/18 10:23 MW Document 04/23/18 09:49 MW [id number] 04/23/18 09:53 MW Document 04/30/18 09:58 MW [id number] 04/30/18 10:01 MW 04/16/18 04/23/18 04/30/18 10:22 09:49 09:58 Wound Center Nurse 2 1. L LATERAL LOWER EXTREMITY -Time 10:23 09:49 09:58 -Correct Patient Yes Yes Yes -Correct Side, Site, Position Yes Yes Yes -Correct Procedure Yes Yes Yes -Procedure Performed Yes Yes Yes -Type of Procedure Debridement Debridement Debridement -Clinical Debridement Subcutaneous Subcutaneous Subcutaneous -Post Debridement Size (cm) - Length 7.5 7.5 7.0 -Post Debridement Size (cm) - Width 1.5 1.2 2.0 -Post Debridement Size (cm) - Depth 0.1 0.1 0.1 -Total Square Cm 11.25 9.00 14.00 -Wound/Ulcer Outcome Not Healed Not Healed Not Healed -Ulcer Cleansing Rinsed/ Rinsed/ Rinsed/ Irrigated with Irrigated with Irrigated with Saline Saline Saline -Foul Odor after Cleansing No No No -Bioengineered Tissue No No No -Bleeding Controlled with Pressure Pressure Pressure -Treatment Response Procedure Procedure Procedure Tolerated Well Tolerated Well Tolerated Well Pain Scale: 0-10 Numeric Is Patient Pain Free? Yes Yes Yes Wound debrided: Left lower extremity Wound Grade/Stage: Stage III Type of Debridement: Excisional debridement Anesthesia Used: 4% Lidocaine Solution Depth: Down to and including healthy tissue, in the subcutaneous layer Percentage of wound debrided: 100 Instrument Used: 7mm curette Tissue Removed: Slough and devitalized tissue Severity: Fat Layer Exposed Amount of bleeding with debridement: Mild Bleeding Controlled with: Pressure Patient tolerated procedure well Assessment/Plan Active Problems Wound of left lower extremity (Chronic) Post debridement/hematoma evacuation. Assessment: Left lower extremity wound post I and D with delayed healing. Plan: No significant improvement in the past week. Wound appears to be stalling. Debridement done as documented above. Procedure was well tolerated. Continue Promogran with Adaptic over top. Leave in for a week. Continue light 3M wraps. Follow-up in 1 week for nurse visit to change wraps and dressing. If no significant improvement in 2 weeks we will consider switching to a skin substitute. Low prealbumin. Premier drinks BID to TID. Elevate lower extremity when seated and in bed. All his questions were answered and he was asked to call with any further questions or concerns. Follow-up in 2 weeks. This note was generated with [employer] dictation software. It may contain incorrect words, spelling, and punctuation that were not noted in checking the note before signing.
[2018-05-06 10:34] VITALS: BP 131/73; PULSE 60; RESP 18; TEMP 36.6
[2018-05-14 09:15] VITALS: BP 138/90; PULSE 50; RESP 16; TEMP 36.3
--- NOTE | 2018-05-14 09:37 | PN.PCM_ITS ---
(1) Wound of left lower extremity Status: Chronic Current Visit: Yes Code(s): S81.802A - Unspecified open wound, left lower leg, initial encounter Comment: Post debridement/hematoma evacuation. Type of Wound Chief Complaint: Left lower extremity wound - Delayed healing. History of Wound: Mr. Chauhan is a 62yo with PMH as stated above who presented here due to delayed healing of his left lower extremity wound. Said to have developed a large hematoma after a fall and subsequent fibular fracture. Initially managed in the hospital ( [place] ) for left lower extremity cellulitis and was discharged to a [place]. At the [place], he Incision and drainge of the hematoma with subsequent wound vac for 7 days. Since discontinuing the wound vac, he has applied a collagen dressing to the wound. He was recently discharged from the [place] and plan is to get [facility] however, this has not been established. He feels well otherwise and denies chills, fever, nausea, vomitting or any change in his bowel habit. Progress of Wound: Improving. - Physical Exam Vital Signs Temp Pulse Resp BP 97.3 F L 50 L 16 138/90 H 05/14/18 09:15 05/14/18 09:15 05/14/18 09:15 05/14/18 09:15 General: Alert, Oriented x3, Cooperative, No apparent distress HEENT: Atraumatic Oral: Moist Mucosa Neck: Supple Lungs: Normal air movement Abdomen: Non Tender Extremities: No cyanosis, Edema Skin: Ulcer/ Wound Wound Measurements and Assessment WC - Nurse 1 - General Ulcer Measurement Start: 04/16/18 09:58 Freq: Status: Active Protocol: Activity Type Activity Date Activity User E-Sign Co-Sign Detail Recorded Client Recorded Date Recorded By Document 05/14/18 09:15 [id number] 05/14/18 09:17 05/14/18 09:15 Wound Center Nurse 1 [Ulcer Assessment] 1. L LATERAL LOWER EXTREMITY -Combined with other wound No -Current Size (cm) - Length 5.1 -Current Size (cm) - Width 1.3 -Current Size (cm) - Depth 0.1 -Total Square Cm 6.63 -Date of Last Picture (Recall this 05/14/18 field) -Photo Taken Yes -Epithelialization Small 1-33% -Tunneling No -Undermining/Tunneling No -Circular Undermining No -Exudate Amt Medium (34-66%) -Exudate Type Serous -Wound Margin Distinct, Outline Attached -Granulation Amt Medium (34-66%) -Granulation Quality Red -Slough/Fibrin Yes -Necrosis Amt None Present (0 %) -Necrotic Tissue Type Adherent Slough -Structure Exposed None/Limited to Skin Breakdown -Texture (Kirstie-wound Skin Appearance) Assessed Scarring -Moisture (Kirstie-wound Skin Appearance Dry/Scaly ) -Color (Kirstie-wound Skin Appearance) No Abnormality Assessed -Temperature (Kirstie-wound Skin No Abnormality Appearance) (Pt Warm) -Tenderness on Palpation (Kirstie-wound No Skin Appearance) -Ulcer Cleansing SOAP -Foul Odor after Cleansing No -Anesthetic Used 5% Lidocaine Gel [Edema Assessment] -Lower Limb Edema Present No -Left Calf (cm) 34.5 -Left Ankle (cm) 23 WC - Nurse 2 - General Ulcer CM Notes Start: 04/16/18 09:58 Freq: Status: Active Protocol: Activity Type Activity Date Activity User E-Sign Co-Sign Detail Recorded Client Recorded Date Recorded By Document 05/14/18 09:27 MW [id number] 05/14/18 09:31 MW 05/14/18 09:27 Wound Center Nurse 2 [Procedure/Treatment] 1. L LATERAL LOWER EXTREMITY -Time 09:28 -Correct Patient Yes -Correct Side, Site, Position Yes -Correct Procedure Yes -Procedure Performed Yes -Type of Procedure Debridement -Clinical Debridement Subcutaneous -Post Debridement Size (cm) - Length 5.0 -Post Debridement Size (cm) - Width 2.0 -Post Debridement Size (cm) - Depth 0.1 -Total Square Cm 10.00 -Wound/Ulcer Outcome Not Healed -Ulcer Cleansing Rinsed/ Irrigated with Saline -Foul Odor after Cleansing No -Bioengineered Tissue No -Bleeding Controlled with Pressure -Offloading No -Treatment Response Procedure Tolerated Well [See Physician Procedure note for Specifics] Pain Scale: 0-10 Numeric [Pain] -Is Patient Pain Free? Yes Musculoskeletal: No Muscle Wasting Neurological: Cranial nerves II-XII grossly intact Psych/Mental Status: Normal Affect Debridement Note Post-Debridement Measurements/Treatment WC - Nurse 2 - General Ulcer CM Notes Start: 04/16/18 09:58 Freq: Status: Active Protocol: Activity Type Activity Date Activity User E-Sign Co-Sign Detail Recorded Client Recorded Date Recorded By Document 04/16/18 10:22 MW [id number] 04/16/18 10:23 MW Document 04/23/18 09:49 MW [id number] 04/23/18 09:53 MW Document 04/30/18 09:58 MW [id number] 04/30/18 10:01 MW Document 05/14/18 09:27 MW [id number] 05/14/18 09:31 MW 04/16/18 04/23/18 04/30/18 10:22 09:49 09:58 Wound Center Nurse 2 1. L LATERAL LOWER EXTREMITY -Time 10:23 09:49 09:58 -Correct Patient Yes Yes Yes -Correct Side, Site, Position Yes Yes Yes -Correct Procedure Yes Yes Yes -Procedure Performed Yes Yes Yes -Type of Procedure Debridement Debridement Debridement -Clinical Debridement Subcutaneous Subcutaneous Subcutaneous -Post Debridement Size (cm) - Length 7.5 7.5 7.0 -Post Debridement Size (cm) - Width 1.5 1.2 2.0 -Post Debridement Size (cm) - Depth 0.1 0.1 0.1 -Total Square Cm 11.25 9.00 14.00 -Wound/Ulcer Outcome Not Healed Not Healed Not Healed -Ulcer Cleansing Rinsed/ Rinsed/ Rinsed/ Irrigated with Irrigated with Irrigated with Saline Saline Saline -Foul Odor after Cleansing No No No -Bioengineered Tissue No No No -Bleeding Controlled with Pressure Pressure Pressure -Offloading -Treatment Response Procedure Procedure Procedure Tolerated Well Tolerated Well Tolerated Well Pain Scale: 0-10 Numeric Is Patient Pain Free? Yes Yes Yes 05/14/18 09:27 Wound Center Nurse 2 1. L LATERAL LOWER EXTREMITY -Time 09:28 -Correct Patient Yes -Correct Side, Site, Position Yes -Correct Procedure Yes -Procedure Performed Yes -Type of Procedure Debridement -Clinical Debridement Subcutaneous -Post Debridement Size (cm) - Length 5.0 -Post Debridement Size (cm) - Width 2.0 -Post Debridement Size (cm) - Depth 0.1 -Total Square Cm 10.00 -Wound/Ulcer Outcome Not Healed -Ulcer Cleansing Rinsed/ Irrigated with Saline -Foul Odor after Cleansing No -Bioengineered Tissue No -Bleeding Controlled with Pressure -Offloading No -Treatment Response Procedure Tolerated Well Pain Scale: 0-10 Numeric Is Patient Pain Free? Yes Wound debrided: Left lower extremity Wound Grade/Stage: Stage III Type of Debridement: Excisional debridement Anesthesia Used: 4% Lidocaine Solution Depth: Down to and including healthy tissue, in the subcutaneous layer Percentage of wound debrided: 100 Instrument Used: 7mm curette Tissue Removed: slough and devitalized tissue Severity: Fat Layer Exposed Amount of bleeding with debridement: Mild Bleeding Controlled with: Pressure Patient tolerated procedure well Assessment/Plan Active Problems Wound of left lower extremity (Chronic) Post debridement/hematoma evacuation. Assessment: Left lower extremity wound post I and D with delayed healing. Plan: Improving. Debridement done as documented above. Procedure was well tolerated. Continue Promogran with Adaptic over top. Leave in for a week. Continue light 3M wraps. Follow-up in 1 week for nurse visit. Low prealbumin. Premier drinks BID to TID. Elevate lower extremity when seated and in bed. All his questions were answered and he was asked to call with any further questions or concerns. Follow-up in 2 weeks with me. This note was generated with [employer] dictation software. It may contain incorrect words, spelling, and punctuation that were not noted in checking the note before signing.
== END 2018-05-15 23:59 ==
LOC: WC 09:15
PROVIDERS: Family Provider Family Medicine; PCP Family Medicine; Visit Provider Internal Medicine
DX: S80.12XA Contusion of left lower leg, initial encounter (principal); W19.XXXA Unspecified fall, initial encounter
CPT/HCPCS: 11042; 29581

== ENCOUNTER 2018-05-21 09:46 | Day surgery (SDC) | payer OTHER, SELFPAY ==
[2018-05-21 10:08] VITALS: BP 124/68; PULSE 48; RESP 16; TEMP 36.6; O2SAT 97; BMI 42.2
[2018-05-21] MEDS: Ciprofloxacin 0.3% 2.5ml Bottle 1 DRP (11:37)
--- NOTE | 2018-05-21 11:43 | DCINST_ITS ---
Discharge Diet: No Restrictions Discharge Activity: Return to Normal Activity Additional Activity Instructions:: Keep ears dry. Allergies/Adverse Reactions: Allergies Tetracyclines Allergy (Verified 05/15/18 08:32) Swelling Medications to take at Discharge Amiodarone HCl [Cordarone] 200 mg PO DAILY 10/23/13 Calcium Carbonate/Vitamin D3 [Calcium 500 + D Tablet] 1 ea PO DAILY 10/23/13 Metoprolol Tartrate [Lopressor (Beta Jaime)] 25 mg PO BID 10/23/13 Spironolactone [Aldactone] 25 mg PO BID 10/23/13 Aspirin [Aspirin, Baby] 81 mg PO QHS 11/16/17 Atorvastatin Calcium [Lipitor] 20 mg PO QHS 11/16/17 Indapamide 1.25 mg PO DAILY 11/16/17 Levothyroxine Sodium [Synthroid] 125 mcg PO DAILY 11/16/17 Potassium Chloride [Klor-Con M20] 20 meq PO UD 01/28/18 Mirtazapine [Remeron] 30 mg PO QHS 05/15/18 Primary Care Physician: Josh Bethea MD [Primary Care Provider] - Test Results: Test results from this visit will be discussed in further detail at your follow- up appointment, if applicable. Please Follow Up With: Thuan Martinez MD - [phone] When: 1-2 weeks.
[2018-05-21 11:54] VITALS: BP 122/66; BP 124/68; PULSE 49; RESP 14; TEMP 36.4; O2SAT 94
[2018-05-21 12:00] VITALS: BP 114/64; BP 124/68; PULSE 49; RESP 14; O2SAT 94
[2018-05-21 12:15] VITALS: BP 124/68; BP 136/77; PULSE 49; RESP 16; O2SAT 93
[2018-05-21 12:20] VITALS: BP 124/68; BP 132/78; PULSE 49; RESP 16; TEMP 36.8; O2SAT 97
--- NOTE | 2018-05-21 12:25 | PCM.OP.BLANK ---
Operative Report Date of Procedure: 05/21/18 Preoperative diagnosis: Right serous otitis media Postoperative diagnosis: Same with additional findings of foreign body in the middle ear space Procedure: Right myringotomy with subsequent removal of foreign body from middle ear followed by placement of tympanostomy tube Anesthesia: General per Nadine Roberts CRNA Details of procedure: The patient was transported to the operating room and placed on the OR table in the supine position. After the administration of adequate general mask anesthesia the patient was appropriately positioned and the right ear examined with the microscope. Examination revealed a dense opacified drum, partly due to previous surgical intervention. Middle ear fluid had been suspected clinically in previous office management. A myringotomy was created in the anterior inferior aspect and mucus was encountered and evacuated. Ciprofloxacin was rinsed through the middle ear and as additional suctioning was taking place it was evident that there was a blue colored object in the hypotympanum region. This floated up toward the myringotomy site and was identified as a previously placed tympanostomy tube. This was removed. Additional ciprofloxacin was rinsed through the middle ear and suctioned clear. A collar-button tube was then placed and the procedure terminated. The patient tolerated the procedure well, did not sustain any intraoperative anesthetic or surgical complication, was taken to the PACU where he was noted to be in satisfactory condition. Thuan Martinez MD
[2018-05-21 12:50] VITALS: BP 124/68
== END 2018-05-21 12:51 | disposition home or self-care (01) ==
LOC: SDC 09:47 → AC 09:48
PROVIDERS: Family Provider Family Medicine; PCP Family Medicine; Referring Provider Otolaryngology Otolaryngology/Facial Plastic Surgery; Visit Provider Otolaryngology Otolaryngology/Facial Plastic Surgery
PROC: (CPT 69436; principal; 2018-05-21 11:25)
DX: H65.21 Chronic serous otitis media, right ear (principal); H69.81 Other specified disorders of Eustachian tube, right ear; T16.9XXA Foreign body in ear, unspecified ear, initial encounter; I48.91 Unspecified atrial fibrillation; I10 Essential (primary) hypertension; G47.30 Sleep apnea, unspecified; E78.00 Pure hypercholesterolemia, unspecified; E05.00 Thyrotoxicosis with diffuse goiter without thyrotoxic crisis or storm; Z86.2 Personal history of diseases of the blood and blood-forming organs and certain disorders involving the immune mechanism; Z79.82 Long term (current) use of aspirin; Z79.899 Other long term (current) drug therapy
CPT/HCPCS: 00126; 69436; J2405

== ENCOUNTER 2018-06-12 10:00 | Outpatient (RCR) | payer OTHER, SELFPAY ==
[2018-05-16 01:06] VITALS: BP 138/90; PULSE 50; RESP 16; TEMP 36.3
[2018-05-20 09:39] VITALS: BP 147/98; PULSE 59; RESP 16; TEMP 35.7
[2018-05-28 09:26] VITALS: BP 161/91; PULSE 53; RESP 18; TEMP 37.2
--- NOTE | 2018-05-28 11:29 | PCM.WC.PN ---
(1) Wound of left lower extremity Status: Chronic Current Visit: Yes Code(s): S81.802A - Unspecified open wound, left lower leg, initial encounter Comment: Post debridement/hematoma evacuation. Type of Wound Chief Complaint: Left lower extremity wound - Delayed healing. History of Wound: Mr. Chauhan is a 62yo with PMH as stated above who presented here due to delayed healing of his left lower extremity wound. Said to have developed a large hematoma after a fall and subsequent fibular fracture. Initially managed in the hospital ( [facility] ) for left lower extremity cellulitis and was discharged to a [facility]. At the NE, he Incision and drainge of the hematoma with subsequent wound vac for 7 days. Since discontinuing the wound vac, he has applied a collagen dressing to the wound. He was recently discharged from the [facility] and plan is to get [facility] however, this has not been established. He feels well otherwise and denies chills, fever, nausea, vomitting or any change in his bowel habit. Progress of Wound: Improving. - Physical Exam Vital Signs Temp Pulse Resp BP 98.9 F 53 L 18 161/91 H 05/28/18 09:26 12 09:26 05/28/18 09:26 05/28/18 09:26 General: Alert, Oriented x3, Cooperative, No apparent distress HEENT: Atraumatic, Normocephalic Oral: Moist Mucosa Neck: Supple Lungs: Normal air movement Abdomen: Soft, Non Tender, Obese Extremities: No cyanosis, Edema Skin: Ulcer/ Wound Wound Measurements and Assessment WC - Nurse 1 - General Ulcer Measurement Start: 05/20/18 09:39 Freq: Status: Active Protocol: Activity Type Activity Date Activity User E-Sign Co-Sign Detail Recorded Client Recorded Date Recorded By Document 05/28/18 09:26 [id number] 05/28/18 09:37 RB 05/28/18 09:26 Wound Center Nurse 1 [Ulcer Assessment] 1. L LATERAL LOWER EXTREMITY -Combined with other wound No -Current Size (cm) - Length 5.3 -Current Size (cm) - Width 2 -Current Size (cm) - Depth 0.1 -Total Square Cm 10.6 -Tunneling No -Undermining/Tunneling No -Circular Undermining No -Classification - Thickness Full Thickness without Exposed Support Structure -Exudate Amt Medium (34-66%) -Exudate Type Serosanguineous -Wound Margin Distinct, Outline Attached -Granulation Amt Large (67-100%) -Granulation Quality Red -Slough/Fibrin Yes -Necrosis Amt Small (1-33%) -Necrotic Tissue Type Adherent Slough -Structure Exposed N/A -Texture (Kirstie-wound Skin Appearance) Assessed -Moisture (Kirstie-wound Skin Appearance Assessed ) -Color (Kirstie-wound Skin Appearance) Assessed -Temperature (Kirstie-wound Skin No Abnormality Appearance) (Pt Warm) -Tenderness on Palpation (Kirstie-wound No Skin Appearance) -Ulcer Cleansing Rinsed/ Irrigated with Saline -Foul Odor after Cleansing No -Anesthetic Used 5% Lidocaine Gel [Edema Assessment] -Lower Limb Edema Present Yes -Left Calf (cm) 35 -Left Ankle (cm) 22 WC - Nurse 2 - General Ulcer CM Notes Start: 05/20/18 09:39 Freq: Status: Active Protocol: Activity Type Activity Date Activity User E-Sign Co-Sign Detail Recorded Client Recorded Date Recorded By Document 05/28/18 09:49 MW [id number] 05/28/18 09:52 MW 05/28/18 09:49 Wound Center Nurse 2 [Procedure/Treatment] 1. L LATERAL LOWER EXTREMITY -Time 09:50 -Correct Patient Yes -Correct Side, Site, Position Yes -Correct Procedure Yes -Procedure Performed Yes -Type of Procedure Debridement -Clinical Debridement Subcutaneous -Post Debridement Size (cm) - Length 5.0 -Post Debridement Size (cm) - Width 1.5 -Post Debridement Size (cm) - Depth 0.1 -Total Square Cm 7.50 -Wound/Ulcer Outcome Not Healed -Ulcer Cleansing Rinsed/ Irrigated with Saline -Foul Odor after Cleansing No -Bioengineered Tissue No -Bleeding Controlled with Pressure -Offloading No -Treatment Response Procedure Tolerated Well [See Physician Procedure note for Specifics] Pain Scale: 0-10 Numeric [Pain] -Is Patient Pain Free? Yes Musculoskeletal: No Muscle Wasting Neurological: Cranial nerves II-XII grossly intact Psych/Mental Status: Normal Affect Debridement Note Post-Debridement Measurements/Treatment WC - Nurse 2 - General Ulcer CM Notes Start: 05/20/18 09:39 Freq: Status: Active Protocol: Activity Type Activity Date Activity User E-Sign Co-Sign Detail Recorded Client Recorded Date Recorded By Document 05/28/18 09:49 MW [id number] 05/28/18 09:52 MW 05/28/18 09:49 Wound Center Nurse 2 1. L LATERAL LOWER EXTREMITY -Time 09:50 -Correct Patient Yes -Correct Side, Site, Position Yes -Correct Procedure Yes -Procedure Performed Yes -Type of Procedure Debridement -Clinical Debridement Subcutaneous -Post Debridement Size (cm) - Length 5.0 -Post Debridement Size (cm) - Width 1.5 -Post Debridement Size (cm) - Depth 0.1 -Total Square Cm 7.50 -Wound/Ulcer Outcome Not Healed -Ulcer Cleansing Rinsed/ Irrigated with Saline -Foul Odor after Cleansing No -Bioengineered Tissue No -Bleeding Controlled with Pressure -Offloading No -Treatment Response Procedure Tolerated Well Pain Scale: 0-10 Numeric Is Patient Pain Free? Yes Wound debrided: Left Lower extremity Wound Grade/Stage: Stage III Type of Debridement: Excisional debridement Anesthesia Used: 4% Lidocaine Solution Depth: Down to and including healthy tissue, in the subcutaneous layer Percentage of wound debrided: 100 Instrument Used: 7mm curette Tissue Removed: Slough and devitalized tissue Severity: Fat Layer Exposed Bleeding Controlled with: Pressure Patient tolerated procedure well Assessment/Plan Active Problems Wound of left lower extremity (Chronic) Post debridement/hematoma evacuation. Assessment: Left lower extremity wound post I and D with delayed healing. Plan: Stable. Debridement done as documented above. Procedure was well tolerated. Continue Promogran with Adaptic over top. Leave in for a week. Continue light 3M wraps. Patient advised to increase his protein intake. He has not been taking this as directed. Elevate lower extremity when seated and in bed. All his questions were answered and he was asked to call with any further questions or concerns. Follow-up in 1 week. This note was generated with [employer] software. It may contain incorrect words, spelling, and punctuation that were not noted in checking the note before signing.
--- NOTE | 2018-05-28 11:32 | PN.PCM_ITS ---
(1) Wound of left lower extremity Status: Chronic Current Visit: Yes Code(s): S81.802A - Unspecified open wound, left lower leg, initial encounter Comment: Post debridement/hematoma evacuation. Type of Wound Chief Complaint: Left lower extremity wound - Delayed healing. History of Wound: Mr. Chauhan is a 62yo with PMH as stated above who presented here due to delayed healing of his left lower extremity wound. Said to have developed a large hematoma after a fall and subsequent fibular fracture. Initially managed in the hospital ( [facility] ) for left lower extremity cellulitis and was discharged to a [facility]. At the [facility], he Incision and drainge of the hematoma with subsequent wound vac for 7 days. Since discontinuing the wound vac, he has applied a collagen dressing to the wound. He was recently discharged from the [facility] and plan is to get [facility] however, this has not been established. He feels well otherwise and denies chills, fever, nausea, vomitting or any change in his bowel habit. Progress of Wound: Improving. - Physical Exam Vital Signs Temp Pulse Resp BP 98.9 F 53 L 18 161/91 H 05/28/18 09:26 12 09:26 05/28/18 09:26 05/28/18 09:26 General: Alert, Oriented x3, Cooperative, No apparent distress HEENT: Atraumatic, Normocephalic Oral: Moist Mucosa Neck: Supple Lungs: Normal air movement Abdomen: Soft, Non Tender, Obese Extremities: No cyanosis, Edema Skin: Ulcer/ Wound Wound Measurements and Assessment WC - Nurse 1 - General Ulcer Measurement Start: 05/20/18 09:39 Freq: Status: Active Protocol: Activity Type Activity Date Activity User E-Sign Co-Sign Detail Recorded Client Recorded Date Recorded By Document 05/28/18 09:26 [id number] 05/28/18 09:37 RB 05/28/18 09:26 Wound Center Nurse 1 [Ulcer Assessment] 1. L LATERAL LOWER EXTREMITY -Combined with other wound No -Current Size (cm) - Length 5.3 -Current Size (cm) - Width 2 -Current Size (cm) - Depth 0.1 -Total Square Cm 10.6 -Tunneling No -Undermining/Tunneling No -Circular Undermining No -Classification - Thickness Full Thickness without Exposed Support Structure -Exudate Amt Medium (34-66%) -Exudate Type Serosanguineous -Wound Margin Distinct, Outline Attached -Granulation Amt Large (67-100%) -Granulation Quality Red -Slough/Fibrin Yes -Necrosis Amt Small (1-33%) -Necrotic Tissue Type Adherent Slough -Structure Exposed N/A -Texture (Kirstie-wound Skin Appearance) Assessed -Moisture (Kirstie-wound Skin Appearance Assessed ) -Color (Kirstie-wound Skin Appearance) Assessed -Temperature (Kirstie-wound Skin No Abnormality Appearance) (Pt Warm) -Tenderness on Palpation (Kirstie-wound No Skin Appearance) -Ulcer Cleansing Rinsed/ Irrigated with Saline -Foul Odor after Cleansing No -Anesthetic Used 5% Lidocaine Gel [Edema Assessment] -Lower Limb Edema Present Yes -Left Calf (cm) 35 -Left Ankle (cm) 22 WC - Nurse 2 - General Ulcer CM Notes Start: 05/20/18 09:39 Freq: Status: Active Protocol: Activity Type Activity Date Activity User E-Sign Co-Sign Detail Recorded Client Recorded Date Recorded By Document 05/28/18 09:49 MW [id number] 05/28/18 09:52 MW 05/28/18 09:49 Wound Center Nurse 2 [Procedure/Treatment] 1. L LATERAL LOWER EXTREMITY -Time 09:50 -Correct Patient Yes -Correct Side, Site, Position Yes -Correct Procedure Yes -Procedure Performed Yes -Type of Procedure Debridement -Clinical Debridement Subcutaneous -Post Debridement Size (cm) - Length 5.0 -Post Debridement Size (cm) - Width 1.5 -Post Debridement Size (cm) - Depth 0.1 -Total Square Cm 7.50 -Wound/Ulcer Outcome Not Healed -Ulcer Cleansing Rinsed/ Irrigated with Saline -Foul Odor after Cleansing No -Bioengineered Tissue No -Bleeding Controlled with Pressure -Offloading No -Treatment Response Procedure Tolerated Well [See Physician Procedure note for Specifics] Pain Scale: 0-10 Numeric [Pain] -Is Patient Pain Free? Yes Musculoskeletal: No Muscle Wasting Neurological: Cranial nerves II-XII grossly intact Psych/Mental Status: Normal Affect Debridement Note Post-Debridement Measurements/Treatment WC - Nurse 2 - General Ulcer CM Notes Start: 05/20/18 09:39 Freq: Status: Active Protocol: Activity Type Activity Date Activity User E-Sign Co-Sign Detail Recorded Client Recorded Date Recorded By Document 05/28/18 09:49 MW [id number] 05/28/18 09:52 MW 05/28/18 09:49 Wound Center Nurse 2 1. L LATERAL LOWER EXTREMITY -Time 09:50 -Correct Patient Yes -Correct Side, Site, Position Yes -Correct Procedure Yes -Procedure Performed Yes -Type of Procedure Debridement -Clinical Debridement Subcutaneous -Post Debridement Size (cm) - Length 5.0 -Post Debridement Size (cm) - Width 1.5 -Post Debridement Size (cm) - Depth 0.1 -Total Square Cm 7.50 -Wound/Ulcer Outcome Not Healed -Ulcer Cleansing Rinsed/ Irrigated with Saline -Foul Odor after Cleansing No -Bioengineered Tissue No -Bleeding Controlled with Pressure -Offloading No -Treatment Response Procedure Tolerated Well Pain Scale: 0-10 Numeric Is Patient Pain Free? Yes Wound debrided: Left Lower extremity Wound Grade/Stage: Stage III Type of Debridement: Excisional debridement Anesthesia Used: 4% Lidocaine Solution Depth: Down to and including healthy tissue, in the subcutaneous layer Percentage of wound debrided: 100 Instrument Used: 7mm curette Tissue Removed: Slough and devitalized tissue Severity: Fat Layer Exposed Bleeding Controlled with: Pressure Patient tolerated procedure well Assessment/Plan Active Problems Wound of left lower extremity (Chronic) Post debridement/hematoma evacuation. Assessment: Left lower extremity wound post I and D with delayed healing. Plan: Stable. Debridement done as documented above. Procedure was well tolerated. Continue Promogran with Adaptic over top. Leave in for a week. Continue light 3M wraps. Patient advised to increase his protein intake. He has not been taking this as directed. Elevate lower extremity when seated and in bed. All his questions were answered and he was asked to call with any further questions or concerns. Follow-up in 1 week. This note was generated with [employer] software. It may contain incorrect words, spelling, and punctuation that were not noted in checking the note before signing.
[2018-06-03 10:48] VITALS: BP 142/104; PULSE 55; RESP 18; TEMP 36.4
--- NOTE | 2018-06-03 11:24 | PCM.WC.PN ---
(1) Wound of left lower extremity Status: Chronic Current Visit: Yes Code(s): S81.802A - Unspecified open wound, left lower leg, initial encounter Comment: Post debridement/hematoma evacuation. (2) PAD (peripheral artery disease) Status: Chronic Current Visit: Yes Code(s): I73.9 - Peripheral vascular disease, unspecified Type of Wound Chief Complaint: Left lower extremity wound - Delayed healing. History of Wound: Mr. Chauhan is a 62yo with PMH as stated above who presented here due to delayed healing of his left lower extremity wound. Said to have developed a large hematoma after a fall and subsequent fibular fracture. Initially managed in the hospital ( [facility] ) for left lower extremity cellulitis and was discharged to a [facility]. At the CT, he Incision and drainge of the hematoma with subsequent wound vac for 7 days. Since discontinuing the wound vac, he has applied a collagen dressing to the wound. He was recently discharged from the [place] and plan is to get [facility] however, this has not been established. He feels well otherwise and denies chills, fever, nausea, vomitting or any change in his bowel habit. Progress of Wound: He denies any complaints at this time, however the wound appears to be worsening. - Physical Exam Vital Signs Temp Pulse Resp BP 97.5 F L 55 L 18 142/104 H 06/03/18 10:48 06/03/18 10:48 06/03/18 10:48 06/03/18 10:48 General: Alert, Oriented x3, Cooperative, No apparent distress HEENT: Atraumatic Oral: Moist Mucosa Neck: Supple Lungs: Normal air movement Abdomen: Non Tender Extremities: No cyanosis, Edema Skin: Ulcer/ Wound Wound Measurements and Assessment - Nurse 1 - General Ulcer Measurement Start: 05/20/18 09:39 Freq: Status: Active Protocol: Activity Type Activity Date Activity User E-Sign Co-Sign Detail Recorded Client Recorded Date Recorded By Document 06/03/18 10:48 [id number] 06/03/18 10:49 06/03/18 10:48 Wound Center Nurse 1 [Ulcer Assessment] 1. L LATERAL LOWER EXTREMITY -Combined with other wound No -Current Size (cm) - Length 6.6 -Current Size (cm) - Width 2.1 -Current Size (cm) - Depth 0.1 -Total Square Cm 13.86 -Photo Taken No -Epithelialization Small 1-33% -Tunneling No -Undermining/Tunneling No -Circular Undermining No -Exudate Amt Medium (34-66%) -Exudate Type Serosanguineous -Wound Margin Distinct, Outline Attached -Granulation Amt Medium (34-66%) -Granulation Quality Red -Slough/Fibrin Yes -Necrosis Amt None Present (0 %) -Necrotic Tissue Type Adherent Slough -Structure Exposed None/Limited to Skin Breakdown -Texture (Kirstie-wound Skin Appearance) Scarring -Moisture (Kirstie-wound Skin Appearance Assessed ) Dry/Scaly -Color (Kirstie-wound Skin Appearance) No Abnormality Assessed -Temperature (Kirstie-wound Skin No Abnormality Appearance) (Pt Warm) -Tenderness on Palpation (Kirstie-wound No Skin Appearance) -Ulcer Cleansing Rinsed/ Irrigated with Saline -Foul Odor after Cleansing No -Anesthetic Used 5% Lidocaine Gel [Edema Assessment] -Lower Limb Edema Present No -Left Calf (cm) 36 -Left Ankle (cm) 22 WC - Nurse 2 - General Ulcer CM Notes Start: 05/20/18 09:39 Freq: Status: Active Protocol: Activity Type Activity Date Activity User E-Sign Co-Sign Detail Recorded Client Recorded Date Recorded By Document 06/03/18 11:01 MW [id number] 06/03/18 11:07 MW 06/03/18 11:01 Wound Center Nurse 2 [Procedure/Treatment] 1. L LATERAL LOWER EXTREMITY -Time 11:06 -Correct Patient Yes -Correct Side, Site, Position Yes -Correct Procedure Yes -Procedure Performed Yes -Type of Procedure Debridement -Clinical Debridement Subcutaneous -Post Debridement Size (cm) - Length 6.5 -Post Debridement Size (cm) - Width 1.5 -Post Debridement Size (cm) - Depth 0.1 -Total Square Cm 9.75 -Wound/Ulcer Outcome Not Healed -Ulcer Cleansing Rinsed/ Irrigated with Saline -Foul Odor after Cleansing No -Bioengineered Tissue No -Bleeding Controlled with Pressure -Offloading No -Treatment Response Procedure Tolerated Well [See Physician Procedure note for Specifics] Pain Scale: 0-10 Numeric [Pain] -Is Patient Pain Free? Yes Musculoskeletal: No Muscle Wasting Neurological: Cranial nerves II-XII grossly intact Psych/Mental Status: Normal Affect Debridement Note Post-Debridement Measurements/Treatment WC - Nurse 2 - General Ulcer CM Notes Start: 05/20/18 09:39 Freq: Status: Active Protocol: Activity Type Activity Date Activity User E-Sign Co-Sign Detail Recorded Client Recorded Date Recorded By Document 05/28/18 09:49 MW [id number] 05/28/18 09:52 MW Document 06/03/18 11:01 MW [id number] 06/03/18 11:07 MW 05/28/18 06/03/18 09:49 11:01 Wound Center Nurse 2 1. L LATERAL LOWER EXTREMITY -Time 09:50 11:06 -Correct Patient Yes Yes -Correct Side, Site, Position Yes Yes -Correct Procedure Yes Yes -Procedure Performed Yes Yes -Type of Procedure Debridement Debridement -Clinical Debridement Subcutaneous Subcutaneous -Post Debridement Size (cm) - Length 5.0 6.5 -Post Debridement Size (cm) - Width 1.5 1.5 -Post Debridement Size (cm) - Depth 0.1 0.1 -Total Square Cm 7.50 9.75 -Wound/Ulcer Outcome Not Healed Not Healed -Ulcer Cleansing Rinsed/ Rinsed/ Irrigated with Irrigated with Saline Saline -Foul Odor after Cleansing No No -Bioengineered Tissue No No -Bleeding Controlled with Pressure Pressure -Offloading No No -Treatment Response Procedure Procedure Tolerated Well Tolerated Well Pain Scale: 0-10 Numeric Is Patient Pain Free? Yes Yes Wound debrided: Left lower extremity Wound Grade/Stage: Stage III Type of Debridement: Excisional debridement Anesthesia Used: 4% Lidocaine Solution Depth: Down to and including healthy tissue, in the subcutaneous layer Percentage of wound debrided: 100 Instrument Used: 7mm curette Tissue Removed: Slough and devitalized tissue Severity: Fat Layer Exposed Amount of bleeding with debridement: Mild Bleeding Controlled with: Pressure Patient tolerated procedure well Assessment/Plan Active Problems Wound of left lower extremity (Chronic) Post debridement/hematoma evacuation. PAD (peripheral artery disease) (Chronic) Assessment: Left lower extremity wound post I and D with delayed healing. Peripheral arterial disease. Plan: Increased circumference of the wound with some pockets of significant slough. He denies increased tenderness or discharge. Debridement done as documented above. Procedure was well tolerated. Cultures taken. Switch to Fibracol with Adaptic over top. Change daily. Double layer Tubigrip for edema management. Increased protein intake recommended. Elevate lower extremity when seated and in bed. All his questions were answered and he was asked to call with any further questions or concerns. Follow-up in 1 week. This note was generated with [employer] dictation software. It may contain incorrect words, spelling, and punctuation that were not noted in checking the note before signing.
--- NOTE | 2018-06-03 11:27 | PN.PCM_ITS ---
(1) Wound of left lower extremity Status: Chronic Current Visit: Yes Code(s): S81.802A - Unspecified open wound, left lower leg, initial encounter Comment: Post debridement/hematoma evacuation. (2) PAD (peripheral artery disease) Status: Chronic Current Visit: Yes Code(s): I73.9 - Peripheral vascular disease, unspecified Type of Wound Chief Complaint: Left lower extremity wound - Delayed healing. History of Wound: Mr. Chauhan is a 62yo with PMH as stated above who presented here due to delayed healing of his left lower extremity wound. Said to have developed a large hematoma after a fall and subsequent fibular fracture. Initially managed in the hospital ( [place] ) for left lower extremity cellul itis and was [place] to a [facility]. At the [facility], he Incision and drainge of the hematoma with subsequent wound vac for 7 days. Since discontinuing the wound vac, he has applied a collagen dressing to the wound. He was recently discharged from the [facility] and plan is to get [facility] however, this has not been established. He feels well otherwise and denies chills, fever, nausea, vomitting or any change in his bowel habit. Progress of Wound: He denies any complaints at this time, however the wound appears to be worsening. - Physical Exam Vital Signs Temp Pulse Resp BP 97.5 F L 55 L 18 142/104 H 06/03/18 10:48 06/03/18 10:48 06/03/18 10:48 06/03/18 10:48 General: Alert, Oriented x3, Cooperative, No apparent distress HEENT: Atraumatic Oral: Moist Mucosa Neck: Supple Lungs: Normal air movement Abdomen: Non Tender Extremities: No cyanosis, Edema Skin: Ulcer/ Wound Wound Measurements and Assessment - Nurse 1 - General Ulcer Measurement Start: 05/20/18 09:39 Freq: Status: Active Protocol: Activity Type Activity Date Activity User E-Sign Co-Sign Detail Recorded Client Recorded Date Recorded By Document 06/03/18 10:48 [id number] 06/03/18 10:49 06/03/18 10:48 Wound Center Nurse 1 [Ulcer Assessment] 1. L LATERAL LOWER EXTREMITY -Combined with other wound No -Current Size (cm) - Length 6.6 -Current Size (cm) - Width 2.1 -Current Size (cm) - Depth 0.1 -Total Square Cm 13.86 -Photo Taken No -Epithelialization Small 1-33% -Tunneling No -Undermining/Tunneling No -Circular Undermining No -Exudate Amt Medium (34-66%) -Exudate Type Serosanguineous -Wound Margin Distinct, Outline Attached -Granulation Amt Medium (34-66%) -Granulation Quality Red -Slough/Fibrin Yes -Necrosis Amt None Present (0 %) -Necrotic Tissue Type Adherent Slough -Structure Exposed None/Limited to Skin Breakdown -Texture (Kirstie-wound Skin Appearance) Scarring -Moisture (Kirstie-wound Skin Appearance Assessed ) Dry/Scaly -Color (Kirstie-wound Skin Appearance) No Abnormality Assessed -Temperature (Kirstie-wound Skin No Abnormality Appearance) (Pt Warm) -Tenderness on Palpation (Kirstie-wound No Skin Appearance) -Ulcer Cleansing Rinsed/ Irrigated with Saline -Foul Odor after Cleansing No -Anesthetic Used 5% Lidocaine Gel [Edema Assessment] -Lower Limb Edema Present No -Left Calf (cm) 36 -Left Ankle (cm) 22 WC - Nurse 2 - General Ulcer CM Notes Start: 05/20/18 09:39 Freq: Status: Active Protocol: Activity Type Activity Date Activity User E-Sign Co-Sign Detail Recorded Client Recorded Date Recorded By Document 06/03/18 11:01 MW [id number] 06/03/18 11:07 MW 06/03/18 11:01 Wound Center Nurse 2 [Procedure/Treatment] 1. L LATERAL LOWER EXTREMITY -Time 11:06 -Correct Patient Yes -Correct Side, Site, Position Yes -Correct Procedure Yes -Procedure Performed Yes -Type of Procedure Debridement -Clinical Debridement Subcutaneous -Post Debridement Size (cm) - Length 6.5 -Post Debridement Size (cm) - Width 1.5 -Post Debridement Size (cm) - Depth 0.1 -Total Square Cm 9.75 -Wound/Ulcer Outcome Not Healed -Ulcer Cleansing Rinsed/ Irrigated with Saline -Foul Odor after Cleansing No -Bioengineered Tissue No -Bleeding Controlled with Pressure -Offloading No -Treatment Response Procedure Tolerated Well [See Physician Procedure note for Specifics] Pain Scale: 0-10 Numeric [Pain] -Is Patient Pain Free? Yes Musculoskeletal: No Muscle Wasting Neurological: Cranial nerves II-XII grossly intact Psych/Mental Status: Normal Affect Debridement Note Post-Debridement Measurements/Treatment WC - Nurse 2 - General Ulcer CM Notes Start: 05/20/18 09:39 Freq: Status: Active Protocol: Activity Type Activity Date Activity User E-Sign Co-Sign Detail Recorded Client Recorded Date Recorded By Document 05/28/18 09:49 MW [id number] 05/28/18 09:52 MW Document 06/03/18 11:01 MW [id number] 06/03/18 11:07 MW 05/28/18 06/03/18 09:49 11:01 Wound Center Nurse 2 1. L LATERAL LOWER EXTREMITY -Time 09:50 11:06 -Correct Patient Yes Yes -Correct Side, Site, Position Yes Yes -Correct Procedure Yes Yes -Procedure Performed Yes Yes -Type of Procedure Debridement Debridement -Clinical Debridement Subcutaneous Subcutaneous -Post Debridement Size (cm) - Length 5.0 6.5 -Post Debridement Size (cm) - Width 1.5 1.5 -Post Debridement Size (cm) - Depth 0.1 0.1 -Total Square Cm 7.50 9.75 -Wound/Ulcer Outcome Not Healed Not Healed -Ulcer Cleansing Rinsed/ Rinsed/ Irrigated with Irrigated with Saline Saline -Foul Odor after Cleansing No No -Bioengineered Tissue No No -Bleeding Controlled with Pressure Pressure -Offloading No No -Treatment Response Procedure Procedure Tolerated Well Tolerated Well Pain Scale: 0-10 Numeric Is Patient Pain Free? Yes Yes Wound debrided: Left lower extremity Wound Grade/Stage: Stage III Type of Debridement: Excisional debridement Anesthesia Used: 4% Lidocaine Solution Depth: Down to and including healthy tissue, in the subcutaneous layer Percentage of wound debrided: 100 Instrument Used: 7mm curette Tissue Removed: Slough and devitalized tissue Severity: Fat Layer Exposed Amount of bleeding with debridement: Mild Bleeding Controlled with: Pressure Patient tolerated procedure well Assessment/Plan Active Problems Wound of left lower extremity (Chronic) Post debridement/hematoma evacuation. PAD (peripheral artery disease) (Chronic) Assessment: Left lower extremity wound post I and D with delayed healing. Peripheral arterial disease. Plan: Increased circumference of the wound with some pockets of significant slough. He denies increased tenderness or discharge. Debridement done as documented above. Procedure was well tolerated. Cultures taken. Switch to Fibracol with Adaptic over top. Change daily. Double layer Tubigrip for edema management. Increased protein intake recommended. Elevate lower extremity when seated and in bed. All his questions were answered and he was asked to call with any further questions or concerns. Follow-up in 1 week. This note was generated with [employer] software. It may contain incorrect words, spelling, and punctuation that were not noted in checking the note before signing.
[2018-06-10 11:37] VITALS: BP 144/102; PULSE 84; RESP 16; TEMP 35.8
--- NOTE | 2018-06-10 12:08 | PCM.WC.PN ---
(1) Wound of left lower extremity Status: Chronic Current Visit: Yes Code(s): S81.802A - Unspecified open wound, left lower leg, initial encounter Comment: Post debridement/hematoma evacuation. (2) PAD (peripheral artery disease) Status: Chronic Current Visit: Yes Code(s): I73.9 - Peripheral vascular disease, unspecified Type of Wound Chief Complaint: Left lower extremity wound - Delayed healing. History of Wound: Mr. Chauhan is a 62yo with PMH as stated above who presented here due to delayed healing of his left lower extremity wound. Said to have developed a large hematoma after a fall and subsequent fibular fracture. Initially managed in the hospital ( [place] ) for left lower extremity cellulitis and was discharged to a [place]. At the [place], he Incision and drainge of the hematoma with subsequent wound vac for 7 days. Since discontinuing the wound vac, he has applied a collagen dressing to the wound. He was recently discharged from the [place] and plan is to get [facility] however, this has not been established. He feels well otherwise and denies chills, fever, nausea, vomitting or any change in his bowel habit. Progress of Wound: Culture grew MRSA. Cureently on Bactrim. No concerns. Worsening lower extremity swelling. - Physical Exam Vital Signs Temp Pulse Resp BP 96.4 F L 84 16 144/102 H 06/10/18 11:37 06/10/18 11:37 06/10/18 11:37 06/10/18 11:37 General: Alert, Oriented x3, Cooperative, No apparent distress HEENT: Atraumatic, Normocephalic Oral: Moist Mucosa Neck: Supple Lungs: Normal air movement Extremities: No cyanosis, Edema Skin: Ulcer/ Wound Wound Measurements and Assessment WC - Nurse 1 - General Ulcer Measurement Start: 05/20/18 09:39 Freq: Status: Active Protocol: Activity Type Activity Date Activity User E-Sign Co-Sign Detail Recorded Client Recorded Date Recorded By Document 06/10/18 11:37 [facility] [id number] 06/10/18 11:48 [facility] 06/10/18 11:37 Wound Center Nurse 1 [Ulcer Assessment] 1. L LATERAL LOWER EXTREMITY -Combined with other wound No -Current Size (cm) - Length 6.8 -Current Size (cm) - Width 2 -Current Size (cm) - Depth 0.2 -Total Square Cm 13.6 -Date of Last Picture (Recall this 06/10/18 field) -Photo Taken Yes -Epithelialization Small 1-33% -Tunneling No -Undermining/Tunneling No -Circular Undermining No -Classification - Thickness Full Thickness without Exposed Support Structure -Exudate Amt Medium (34-66%) -Exudate Type Serosanguineous -Wound Margin Distinct, Outline Attached -Granulation Amt Medium (34-66%) -Granulation Quality Red -Slough/Fibrin Yes -Necrosis Amt Medium (34-66%) -Necrotic Tissue Type Adherent Slough -Texture (Kirstie-wound Skin Appearance) Excoriation Scarring -Moisture (Kirstie-wound Skin Appearance Dry/Scaly ) -Color (Kirstie-wound Skin Appearance) Erythema Hemosiderin Staining -Temperature (Kirstie-wound Skin No Abnormality Appearance) (Pt Warm) -Tenderness on Palpation (Kirstie-wound No Skin Appearance) -Ulcer Cleansing Rinsed/ Irrigated with Saline -Foul Odor after Cleansing No -Anesthetic Used 4% Lidocaine Solution [Edema Assessment] -Lower Limb Edema Present Yes -Left Calf (cm) 43.5 -Left Ankle (cm) 23.5 WC - Nurse 2 - General Ulcer CM Notes Start: 05/20/18 09:39 Freq: Status: Active Protocol: Activity Type Activity Date Activity User E-Sign Co-Sign Detail Recorded Client Recorded Date Recorded By Document 06/10/18 11:58 SANDRITA [id number] 06/10/18 12:01 SANDRITA 06/10/18 11:58 Wound Center Nurse 2 [Procedure/Treatment] 1. L LATERAL LOWER EXTREMITY -Time 11:59 -Correct Patient Yes -Correct Side, Site, Position Yes -Correct Procedure Yes -Procedure Performed Yes -Type of Procedure Debridement -Clinical Debridement Subcutaneous -Post Debridement Size (cm) - Length 7.0 -Post Debridement Size (cm) - Width 2.3 -Post Debridement Size (cm) - Depth 0.1 -Total Square Cm 16.10 -Wound/Ulcer Outcome Not Healed -Ulcer Cleansing Rinsed/ Irrigated with Saline -Foul Odor after Cleansing No -Bioengineered Tissue No -Topical Lidocaine (%) 4 -Lidocaine (ml) 5 -Bleeding Controlled with Pressure Silver Nitrate SURGIFOAM -Offloading No -Treatment Response Procedure Tolerated Well [See Physician Procedure note for Specifics] Pain Scale: 0-10 Numeric [Pain] -Is Patient Pain Free? Yes Musculoskeletal: No Muscle Wasting Neurological: Cranial nerves II-XII grossly intact Psych/Mental Status: Normal Affect Debridement Note Post-Debridement Measurements/Treatment WC - Nurse 2 - General Ulcer CM Notes Start: 05/20/18 09:39 Freq: Status: Active Protocol: Activity Type Activity Date Activity User E-Sign Co-Sign Detail Recorded Client Recorded Date Recorded By Document 05/28/18 09:49 MW [id number] 05/28/18 09:52 MW Document 06/03/18 11:01 MW [id number] 06/03/18 11:07 MW Document 06/10/18 11:58 JS [id number] 06/10/18 12:01 JS 05/28/18 06/03/18 06/10/18 09:49 11:01 11:58 Wound Center Nurse 2 1. L LATERAL LOWER EXTREMITY -Time 09:50 11:06 11:59 -Correct Patient Yes Yes Yes -Correct Side, Site, Position Yes Yes Yes -Correct Procedure Yes Yes Yes -Procedure Performed Yes Yes Yes -Type of Procedure Debridement Debridement Debridement -Clinical Debridement Subcutaneous Subcutaneous Subcutaneous -Post Debridement Size (cm) - Length 5.0 6.5 7.0 -Post Debridement Size (cm) - Width 1.5 1.5 2.3 -Post Debridement Size (cm) - Depth 0.1 0.1 0.1 -Total Square Cm 7.50 9.75 16.10 -Wound/Ulcer Outcome Not Healed Not Healed Not Healed -Ulcer Cleansing Rinsed/ Rinsed/ Rinsed/ Irrigated with Irrigated with Irrigated with Saline Saline Saline -Foul Odor after Cleansing No No No -Bioengineered Tissue No No No -Topical Lidocaine (%) 4 -Lidocaine (ml) 5 -Bleeding Controlled with Pressure Pressure Pressure Silver Nitrate SURGIFOAM -Offloading No No No -Treatment Response Procedure Procedure Procedure Tolerated Well Tolerated Well Tolerated Well Pain Scale: 0-10 Numeric Is Patient Pain Free? Yes Yes Yes Wound debrided: Left lowrer extremity Wound Grade/Stage: Stage III Type of Debridement: Excisional debridement Anesthesia Used: 4% Lidocaine Solution Depth: Down to and including healthy tissue, in the subcutaneous layer Percentage of wound debrided: 100 Instrument Used: 7mm curette Tissue Removed: Slough and devitalized tissue Severity: Fat Layer Exposed Amount of bleeding with debridement: Mild Bleeding Controlled with: Pressure Patient tolerated procedure well Assessment/Plan Active Problems Wound of left lower extremity (Chronic) Post debridement/hematoma evacuation. PAD (peripheral artery disease) (Chronic) Assessment: Left lower extremity wound post I and D with delayed healing. Peripheral arterial disease. Plan: Increased circumference however, pockets and slough improved. Lower extremity swelling also worsened. Debridement done as documented above. Procedure was well tolerated. Continue Fibracol with Adaptic over top leave on for 3 days. 3 M wrap for edema management. Follow up on Friday for a [place] and a courtesy visit in 1 week. Increased protein intake recommended. Elevate lower extremity when seated and in bed. All his questions were answered and he was asked to call with any further questions or concerns. Follow-up with me in 2 weeks. This note was generated with [employer] dictation software. It may contain incorrect words, spelling, and punctuation that were not noted in checking the note before signing.
--- NOTE | 2018-06-10 12:12 | PN.PCM_ITS ---
(1) Wound of left lower extremity Status: Chronic Current Visit: Yes Code(s): S81.802A - Unspecified open wound, left lower leg, initial encounter Comment: Post debridement/hematoma evacuation. (2) PAD (peripheral artery disease) Status: Chronic Current Visit: Yes Code(s): I73.9 - Peripheral vascular disease, unspecified Type of Wound Chief Complaint: Left lower extremity wound - Delayed healing. History of Wound: Mr. Chauhan is a 62yo with PMH as stated above who presented here due to delayed healing of his left lower extremity wound. Said to have developed a large hematoma after a fall and subsequent fibular fracture. Initially managed in the hospital ( [place] ) for left lower extremity cellul itis and was discharged to a [place]. At the [place], he Incision and drainge of the hematoma with subsequent wound vac for 7 days. Since discontinuing the wound vac, he has applied a collagen dressing to the wound. He was recently discharged from the [place] and plan is to get [facility] however, this has not been established. He feels well otherwise and denies chills, fever, nausea, vomitting or any change in his bowel habit. Progress of Wound: Culture grew MRSA. Cureently on Bactrim. No concerns. Worsening lower extremity swelling. - Physical Exam Vital Signs Temp Pulse Resp BP 96.4 F L 84 16 144/102 H 06/10/18 11:37 06/10/18 11:37 06/10/18 11:37 06/10/18 11:37 General: Alert, Oriented x3, Cooperative, No apparent distress HEENT: Atraumatic, Normocephalic Oral: Moist Mucosa Neck: Supple Lungs: Normal air movement Extremities: No cyanosis, Edema Skin: Ulcer/ Wound Wound Measurements and Assessment WC - Nurse 1 - General Ulcer Measurement Start: 05/20/18 09:39 Freq: Status: Active Protocol: Activity Type Activity Date Activity User E-Sign Co-Sign Detail Recorded Client Recorded Date Recorded By Document 06/10/18 11:37 [facility] [id number] 06/10/18 11:48 [facility] 06/10/18 11:37 Wound Center Nurse 1 [Ulcer Assessment] 1. L LATERAL LOWER EXTREMITY -Combined with other wound No -Current Size (cm) - Length 6.8 -Current Size (cm) - Width 2 -Current Size (cm) - Depth 0.2 -Total Square Cm 13.6 -Date of Last Picture (Recall this 06/10/18 field) -Photo Taken Yes -Epithelialization Small 1-33% -Tunneling No -Undermining/Tunneling No -Circular Undermining No -Classification - Thickness Full Thickness without Exposed Support Structure -Exudate Amt Medium (34-66%) -Exudate Type Serosanguineous -Wound Margin Distinct, Outline Attached -Granulation Amt Medium (34-66%) -Granulation Quality Red -Slough/Fibrin Yes -Necrosis Amt Medium (34-66%) -Necrotic Tissue Type Adherent Slough -Texture (Kirstie-wound Skin Appearance) Excoriation Scarring -Moisture (Kirstie-wound Skin Appearance Dry/Scaly ) -Color (Kirstie-wound Skin Appearance) Erythema Hemosiderin Staining -Temperature (Kirstie-wound Skin No Abnormality Appearance) (Pt Warm) -Tenderness on Palpation (Kirstie-wound No Skin Appearance) -Ulcer Cleansing Rinsed/ Irrigated with Saline -Foul Odor after Cleansing No -Anesthetic Used 4% Lidocaine Solution [Edema Assessment] -Lower Limb Edema Present Yes -Left Calf (cm) 43.5 -Left Ankle (cm) 23.5 WC - Nurse 2 - General Ulcer CM Notes Start: 05/20/18 09:39 Freq: Status: Active Protocol: Activity Type Activity Date Activity User E-Sign Co-Sign Detail Recorded Client Recorded Date Recorded By Document 06/10/18 11:58 [email or web address] [id number] 06/10/18 12:01 SANDRITA 06/10/18 11:58 Wound Center Nurse 2 [Procedure/Treatment] 1. L LATERAL LOWER EXTREMITY -Time 11:59 -Correct Patient Yes -Correct Side, Site, Position Yes -Correct Procedure Yes -Procedure Performed Yes -Type of Procedure Debridement -Clinical Debridement Subcutaneous -Post Debridement Size (cm) - Length 7.0 -Post Debridement Size (cm) - Width 2.3 -Post Debridement Size (cm) - Depth 0.1 -Total Square Cm 16.10 -Wound/Ulcer Outcome Not Healed -Ulcer Cleansing Rinsed/ Irrigated with Saline -Foul Odor after Cleansing No -Bioengineered Tissue No -Topical Lidocaine (%) 4 -Lidocaine (ml) 5 -Bleeding Controlled with Pressure Silver Nitrate SURGIFOAM -Offloading No -Treatment Response Procedure Tolerated Well [See Physician Procedure note for Specifics] Pain Scale: 0-10 Numeric [Pain] -Is Patient Pain Free? Yes Musculoskeletal: No Muscle Wasting Neurological: Cranial nerves II-XII grossly intact Psych/Mental Status: Normal Affect Debridement Note Post-Debridement Measurements/Treatment WC - Nurse 2 - General Ulcer CM Notes Start: 05/20/18 09:39 Freq: Status: Active Protocol: Activity Type Activity Date Activity User E-Sign Co-Sign Detail Recorded Client Recorded Date Recorded By Document 05/28/18 09:49 MW [id number] 05/28/18 09:52 MW Document 06/03/18 11:01 MW [id number] 06/03/18 11:07 MW Document 06/10/18 11:58 JS [id number] 06/10/18 12:01 JS 05/28/18 06/03/18 06/10/18 09:49 11:01 11:58 Wound Center Nurse 2 1. L LATERAL LOWER EXTREMITY -Time 09:50 11:06 11:59 -Correct Patient Yes Yes Yes -Correct Side, Site, Position Yes Yes Yes -Correct Procedure Yes Yes Yes -Procedure Performed Yes Yes Yes -Type of Procedure Debridement Debridement Debridement -Clinical Debridement Subcutaneous Subcutaneous Subcutaneous -Post Debridement Size (cm) - Length 5.0 6.5 7.0 -Post Debridement Size (cm) - Width 1.5 1.5 2.3 -Post Debridement Size (cm) - Depth 0.1 0.1 0.1 -Total Square Cm 7.50 9.75 16.10 -Wound/Ulcer Outcome Not Healed Not Healed Not Healed -Ulcer Cleansing Rinsed/ Rinsed/ Rinsed/ Irrigated with Irrigated with Irrigated with Saline Saline Saline -Foul Odor after Cleansing No No No -Bioengineered Tissue No No No -Topical Lidocaine (%) 4 -Lidocaine (ml) 5 -Bleeding Controlled with Pressure Pressure Pressure Silver Nitrate SURGIFOAM -Offloading No No No -Treatment Response Procedure Procedure Procedure Tolerated Well Tolerated Well Tolerated Well Pain Scale: 0-10 Numeric Is Patient Pain Free? Yes Yes Yes Wound debrided: Left lowrer extremity Wound Grade/Stage: Stage III Type of Debridement: Excisional debridement Anesthesia Used: 4% Lidocaine Solution Depth: Down to and including healthy tissue, in the subcutaneous layer Percentage of wound debrided: 100 Instrument Used: 7mm curette Tissue Removed: Slough and devitalized tissue Severity: Fat Layer Exposed Amount of bleeding with debridement: Mild Bleeding Controlled with: Pressure Patient tolerated procedure well Assessment/Plan Active Problems Wound of left lower extremity (Chronic) Post debridement/hematoma evacuation. PAD (peripheral artery disease) (Chronic) Assessment: Left lower extremity wound post I and D with delayed healing. Peripheral arterial disease. Plan: Increased circumference however, pockets and slough improved. Lower extremity swelling also worsened. Debridement done as documented above. Procedure was well tolerated. Continue Fibracol with Adaptic over top leave on for 3 days. 3 M wrap for edema management. Follow up on Friday for a [place] and a courtesy visit in 1 week. Increased protein intake recommended. Elevate lower extremity when seated and in bed. All his questions were answered and he was asked to call with any further questions or concerns. Follow-up with me in 2 weeks. This note was generated with [employer] dictation software. It may contain incorrect words, spelling, and punctuation that were not noted in checking the note before signing.
[2018-06-12 10:11] VITALS: BP 109/78; PULSE 81; RESP 16; TEMP 36.4
== END 2018-06-15 23:59 ==
LOC: WC 10:00
PROVIDERS: Family Provider Family Medicine; PCP Family Medicine; Visit Provider Internal Medicine
DX: S80.12XA Contusion of left lower leg, initial encounter (principal); W19.XXXA Unspecified fall, initial encounter
CPT/HCPCS: 11042; 29581; 87070; 87075; 87077; 87186; 87205; 99212; 99213; G0463

== ENCOUNTER 2018-07-15 09:30 | Outpatient (RCR) | payer OTHER, SELFPAY ==
[2018-06-16 00:49] VITALS: BP 109/78; PULSE 81; RESP 16; TEMP 36.4
[2018-06-17 13:36] VITALS: BP 116/71; PULSE 93; RESP 18; TEMP 36.9; BMI 42.2
--- NOTE | 2018-06-17 16:13 | PN.PCM_ITS ---
(1) Ulcer of left lower extremity with fat layer exposed Status: Chronic Current Visit: Yes Code(s): L97.922 - Non-pressure chronic ulcer of unspecified part of left lower leg with fat layer exposed (2) Venous insufficiency Status: Chronic Current Visit: Yes Code(s): I87.2 - Venous insufficiency (chronic) (peripheral) (3) Malnutrition Status: Chronic Current Visit: Yes Code(s): E46 - Unspecified protein- calorie malnutrition (4) Delayed wound healing Status: Chronic Current Visit: Yes Code(s): T14.8XXD - Other injury of unspecified body region, subsequent encounter (5) Leg edema, left Status: Chronic Current Visit: Yes Code(s): R60.0 - Localized edema (6) PAD (peripheral artery disease) Status: Chronic Current Visit: Yes Code(s): I73.9 - Peripheral vascular disease, unspecified Type of Wound Date of Service: 06/17/18 Chief Complaint: Left lower extremity ulcer - Delayed healing. History of Wound: Mr. Chauhan is a 62 year old with PMH as stated above who presented here due to delayed healing of his left lower extremity wound. He denies chills, fever, nausea, vomitting or loss of appetite. He changes dressing as advised. He has 1 more day of Bactrim for treatment of MRSA. He denies ulcer or redness. Progress of Wound: stable - Physical Exam Vital Signs Temp Pulse Resp BP 98.4 F 93 18 116/71 06/17/18 13:36 06/17/18 13:36 06/17/18 13:36 06/17/18 13:36 General: Alert, Oriented x3, Cooperative Extremities: No cyanosis, Capillary Refill Less than 3 Seconds, No Calf Tenderness - Negative Jalen and Dykes sign bilateral, Edema, Peripheral Pulses Normal, Tenderness - Scant tenderness with ulcer manipulation and debridement left Skin: Ulcer/ Wound - No purulence, erythema, streaking, odor, infection, necrosis, deep tissue exposure. Peripheral skin is hairless and atrophic. The ulcer bed is granular and healthy in appearance today. Wound Measurements and Assessment WC - Nurse 1 - General Ulcer Measurement Start: 06/17/18 13:36 Freq: Status: Active Protocol: Activity Type Activity Date Activity User E-Sign Co-Sign Detail Recorded Client Recorded Date Recorded By Document 06/17/18 13:36 DV [id number] 06/17/18 13:49 06/17/18 13:36 Wound Center Nurse 1 [Ulcer Assessment] 1. L LATERAL LOWER EXTREMITY -Combined with other wound No -Current Size (cm) - Length 11.0 -Current Size (cm) - Width 2.0 -Current Size (cm) - Depth 0.1 -Total Square Cm 22.00 -Photo Taken No -Epithelialization Small 1-33% -Tunneling No -Undermining/Tunneling No -Circular Undermining No -Classification - Thickness Full Thickness without Exposed Support Structure -Exudate Amt Large (67-100%) -Exudate Type Serosanguineous -Wound Margin Flat & Intact -Granulation Amt Medium (34-66%) -Granulation Quality Red -Necrosis Amt Medium (34-66%) -Necrotic Tissue Type Adherent Slough -Structure Exposed None/Limited to Skin Breakdown -Texture (Kirstie-wound Skin Appearance) Assessed Scarring -Moisture (Kirstie-wound Skin Appearance Assessed ) Weeping -Color (Kirstie-wound Skin Appearance) Assessed Erythema -Temperature (Kirstie-wound Skin No Abnormality Appearance) (Pt Warm) -Tenderness on Palpation (Kirstie-wound Yes Skin Appearance) -Ulcer Cleansing Rinsed/ Irrigated with Saline -Foul Odor after Cleansing No -Anesthetic Used 4% Lidocaine Solution [Edema Assessment] -Lower Limb Edema Present No -Right Calf (cm) 38.1 -Right Ankle (cm) 23.0 -Left Calf (cm) 37.1 -Left Ankle (cm) 22.0 WC - Nurse 2 - General Ulcer CM Notes Start: 06/17/18 13:36 Freq: Status: Active Protocol: Activity Type Activity Date Activity User E-Sign Co-Sign Detail Recorded Client Recorded Date Recorded By Document 06/17/18 14:02 [id number] 06/17/18 14:05 MERY 06/17/18 14:02 Wound Center Nurse 2 [Procedure/Treatment] 1. L LATERAL LOWER EXTREMITY -Time 14:04 -Correct Patient Yes -Correct Side, Site, Position Yes -Correct Procedure Yes -Procedure Performed Yes -Type of Procedure Debridement -Clinical Debridement Subcutaneous -Post Debridement Size (cm) - Length 11.0 -Post Debridement Size (cm) - Width 2.1 -Post Debridement Size (cm) - Depth 0.1 -Total Square Cm 23.10 -Wound/Ulcer Outcome Not Healed -Ulcer Cleansing Rinsed/ Irrigated with Saline -Foul Odor after Cleansing No -Bioengineered Tissue No -Bleeding Controlled with Pressure -Offloading No -Treatment Response Procedure Tolerated Well [See Physician Procedure note for Specifics] Pain Scale: 0-10 Numeric [Pain] -Is Patient Pain Free? Yes Musculoskeletal: No Tenderness to Palpation of Joints or Extremities, Muscle Wasting, - - Compartments remain soft to palpate left lower extremity Neurological: Sensory exam intact to light touch and pain Psych/Mental Status: Normal Affect, Appropriate Debridement Note Post-Debridement Measurements/Treatment WC - Nurse 2 - General Ulcer CM Notes Start: 06/17/18 13:36 Freq: Status: Active Protocol: Activity Type Activity Date Activity User E-Sign Co-Sign Detail Recorded Client Recorded Date Recorded By Document 06/17/18 14:02 MERY [id number] 06/17/18 14:05 MERY 06/17/18 14:02 Wound Center Nurse 2 1. L LATERAL LOWER EXTREMITY -Time 14:04 -Correct Patient Yes -Correct Side, Site, Position Yes -Correct Procedure Yes -Procedure Performed Yes -Type of Procedure Debridement -Clinical Debridement Subcutaneous -Post Debridement Size (cm) - Length 11.0 -Post Debridement Size (cm) - Width 2.1 -Post Debridement Size (cm) - Depth 0.1 -Total Square Cm 23.10 -Wound/Ulcer Outcome Not Healed -Ulcer Cleansing Rinsed/ Irrigated with Saline -Foul Odor after Cleansing No -Bioengineered Tissue No -Bleeding Controlled with Pressure -Offloading No -Treatment Response Procedure Tolerated Well Pain Scale: 0-10 Numeric Is Patient Pain Free? Yes Wound debrided: leg Laterality: Left Type of Debridement: Excisional debridement Anesthesia Used: 5% Lidocaine Gel Depth: in the subcutaneous layer Percentage of wound debrided: 100 Instrument Used: #15 blade Tissue Removed: fibrous, devitalized subcutaneous, biofilm, slough Severity: Fat Layer Exposed Amount of bleeding with debridement: Mild Bleeding Controlled with: Pressure Patient tolerated procedure well Assessment/Plan Active Problems PAD (peripheral artery disease) (Chronic) Ulcer of left lower extremity with fat layer exposed (Chronic) Venous insufficiency (Chronic) Malnutrition (Chronic) Delayed wound healing (Chronic) Leg edema, left (Chronic) Assessment: Left lower extremity ulcer post I and D with delayed healing. Peripheral arterial disease. Delayed healing. Malnutrition suspected. Lower extremity with venous insufficiency. Arterial calcification Plan: I reviewed and discussed his case today. A chart review was performed. His etiology and treatment plan was discussed in detail. Subcutaneous excisional debridement was performed as noted in the clinical panel. He tolerated this well. Continue Fibracol with Adaptic over top leave on for 3 days. 3 M wrap for edema management. Increased protein intake recommended. He plans to use Premier nutritional supplementation. Elevate lower extremity when seated and in bed. I reviewed his venous reflux studies with Doppler exam which demonstrate bilateral venous incompetence. His noninvasive arterial studies also demonstrated elevated bilateral ankle-brachial indices and a left monophasic and biphasic waveform. There is calcification. I do recommend a vascular referral due to his delayed healing and he defers today. I also recommend consideration of advanced wound care product. Prior authorization for this has been initiated by Dr. Ribeiro and this is still pending. All his questions were answered and he was asked to call with any further questions or concerns. To follow-up with the wound healing center next week with Dr. Ribeiro or call sooner if there are any questions or concerns. I did answer all of his questions today.
[2018-06-19 09:54] VITALS: BP 125/83; PULSE 84; RESP 18; TEMP 36.2; BMI 42.2
[2018-06-24 09:13] VITALS: BP 118/77; PULSE 83; RESP 18; TEMP 36.4; BMI 42.2
--- NOTE | 2018-06-24 10:34 | PCM.WC.PN ---
(1) Delayed wound healing Status: Chronic Current Visit: Yes Code(s): T14.8XXD - Other injury of unspecified body region, subsequent encounter (2) Ulcer of left lower extremity with fat layer exposed Status: Chronic Current Visit: Yes Code(s): L97.922 - Non-pressure chronic ulcer of unspecified part of left lower leg with fat layer exposed (3) Venous insufficiency Status: Chronic Current Visit: Yes Code(s): I87.2 - Venous insufficiency (chronic) (peripheral) Type of Wound Chief Complaint: Left lower extremity ulcer - Delayed healing. History of Wound: Mr. Chauhan is a 62 year old with PMH as stated above who presented here due to delayed healing of his left lower extremity wound. He denies chills, fever, nausea, vomitting or loss of appetite. He changes dressing as advised. He has 1 more day of Bactrim for treatment of MRSA. He denies ulcer or redness. Progress of Wound: Improving. - Physical Exam Vital Signs Temp Pulse Resp BP 97.5 F L 83 18 118/77 06/24/18 09:13 06/24/18 09:13 06/24/18 09:13 06/24/18 09:13 General: Alert, Oriented x3, Cooperative, No apparent distress HEENT: Atraumatic, Normocephalic Oral: Moist Mucosa Neck: Supple Lungs: Normal air movement Abdomen: Non Tender Extremities: No cyanosis, Edema Skin: Ulcer/ Wound Wound Measurements and Assessment WC - Nurse 1 - General Ulcer Measurement Start: 06/17/18 13:36 Freq: Status: Active Protocol: Activity Type Activity Date Activity User E-Sign Co-Sign Detail Recorded Client Recorded Date Recorded By Document 06/24/18 09:13 [id number] 06/24/18 09:21 06/24/18 09:13 Wound Center Nurse 1 [Ulcer Assessment] 1. L LATERAL LOWER EXTREMITY -Combined with other wound No -Current Size (cm) - Length 6.6 -Current Size (cm) - Width 1.3 -Current Size (cm) - Depth 0.1 -Total Square Cm 8.58 -Date of Last Picture (Recall this 06/24/18 field) -Photo Taken Yes -Epithelialization Small 1-33% -Tunneling No -Undermining/Tunneling No -Circular Undermining No -Exudate Amt Large -Exudate Type Serosanguineous -Wound Margin Distinct, Outline Attached -Granulation Amt Large (67-100%) -Granulation Quality Red -Slough/Fibrin Yes -Necrosis Amt Medium (34-66%) -Necrotic Tissue Type Adherent Slough -Structure Exposed None/Limited to Skin Breakdown -Texture (Kirstie-wound Skin Appearance) Scarring -Moisture (Kirstie-wound Skin Appearance Dry/Scaly ) -Color (Kirstie-wound Skin Appearance) No Abnormality Assessed -Temperature (Kirstie-wound Skin No Abnormality Appearance) (Pt Warm) -Tenderness on Palpation (Kirstie-wound No Skin Appearance) -Ulcer Cleansing Rinsed/ Irrigated with Saline -Foul Odor after Cleansing No -Anesthetic Used 5% Lidocaine Gel [Edema Assessment] -Lower Limb Edema Present No -Left Calf (cm) 35.5 -Left Ankle (cm) 23 WC - Nurse 2 - General Ulcer CM Notes Start: 06/17/18 13:36 Freq: Status: Active Protocol: Activity Type Activity Date Activity User E-Sign Co-Sign Detail Recorded Client Recorded Date Recorded By Document 06/24/18 09:46 MW [id number] 06/24/18 09:54 MW 06/24/18 09:46 Wound Center Nurse 2 [Procedure/Treatment] 1. L LATERAL LOWER EXTREMITY -Time 09:47 -Correct Patient Yes -Correct Side, Site, Position Yes -Correct Procedure Yes -Procedure Performed Yes -Type of Procedure Debridement -Clinical Debridement Subcutaneous -Post Debridement Size (cm) - Length 6.5 -Post Debridement Size (cm) - Width 1.5 -Post Debridement Size (cm) - Depth 0.1 -Total Square Cm 9.75 -Wound/Ulcer Outcome Not Healed -Ulcer Cleansing Rinsed/ Irrigated with Saline -Foul Odor after Cleansing No -Bioengineered Tissue Yes -Type of bioengineered Tissue GRAFIX-Pime -Expiration Date 04/28/19 -Product Lot Number [id number] -Percent Used 100 -Other SALINE LOT # [id number] -Offloading No -Treatment Response Procedure Tolerated Well [See Physician Procedure note for Specifics] Pain Scale: 0-10 Numeric [Pain] -Is Patient Pain Free? Yes Musculoskeletal: No Muscle Wasting Neurological: Cranial nerves II-XII grossly intact Psych/Mental Status: Normal Affect Debridement Note Post-Debridement Measurements/Treatment WC - Nurse 2 - General Ulcer CM Notes Start: 06/17/18 13:36 Freq: Status: Active Protocol: Activity Type Activity Date Activity User E-Sign Co-Sign Detail Recorded Client Recorded Date Recorded By Document 06/17/18 14:02 MERY [id number] 06/17/18 14:05 Document 06/24/18 09:46 MW [id number] 06/24/18 09:54 MW 06/17/18 06/24/18 14:02 09:46 Wound Center Nurse 2 1. L LATERAL LOWER EXTREMITY -Time 14:04 09:47 -Correct Patient Yes Yes -Correct Side, Site, Position Yes Yes -Correct Procedure Yes Yes -Procedure Performed Yes Yes -Type of Procedure Debridement Debridement -Clinical Debridement Subcutaneous Subcutaneous -Post Debridement Size (cm) - Length 11.0 6.5 -Post Debridement Size (cm) - Width 2.1 1.5 -Post Debridement Size (cm) - Depth 0.1 0.1 -Total Square Cm 23.10 9.75 -Wound/Ulcer Outcome Not Healed Not Healed -Ulcer Cleansing Rinsed/ Rinsed/ Irrigated with Irrigated with Saline Saline -Foul Odor after Cleansing No No -Bioengineered Tissue No Yes -Type of bioengineered Tissue GRAFIX-Pime -Expiration Date 04/28/19 -Product Lot Number [id number] -Percent Used 100 -Bleeding Controlled with Pressure -Other SALINE LOT # [id number] -Offloading No No -Treatment Response Procedure Procedure Tolerated Well Tolerated Well Pain Scale: 0-10 Numeric Is Patient Pain Free? Yes Yes Wound debrided: Left lower extremity Wound Grade/Stage: Stage III Type of Debridement: Excisional debridement Anesthesia Used: 4% Lidocaine Solution Depth: Down to and including healthy tissue, in the subcutaneous layer Percentage of wound debrided: 100 Instrument Used: 3mm curette Tissue Removed: Slough and devitalized tissue Severity: Fat Layer Exposed Amount of bleeding with debridement: Mild Bleeding Controlled with: Pressure Patient tolerated procedure well Assessment/Plan Active Problems PAD (peripheral artery disease) (Chronic) Ulcer of left lower extremity with fat layer exposed (Chronic) Venous insufficiency (Chronic) Malnutrition (Chronic) Delayed wound healing (Chronic) Leg edema, left (Chronic) Assessment: Left lower extremity ulcer post I and D with delayed healing. Peripheral arterial disease. Delayed healing. Malnutrition suspected. Lower extremity with venous insufficiency. Arterial calcification Plan: He has completed his course of antibiotics and wound appears much turkey cleaner today. He however appears o have stalled over the last couple of week despite optimizing traditional wound care products including compression. Now approved for Grafix. Debridement done as documented above, procedure was well tolerated. Initial application of Grafix Mimedix done today using 100% of prouct. Moistened with saline and adaptic over top. Leave on for a week. Continue increased protein intake. Elevate lower extremity when sitted and in bed. Advised to call with any questions or concerns. Follow up in 1 week.
--- NOTE | 2018-06-24 10:42 | PN.PCM_ITS ---
(1) Delayed wound healing Status: Chronic Current Visit: Yes Code(s): T14.8XXD - Other injury of unspecified body region, subsequent encounter (2) Ulcer of left lower extremity with fat layer exposed Status: Chronic Current Visit: Yes Code(s): L97.922 - Non-pressure chronic ulcer of unspecified part of left lower leg with fat layer exposed (3) Venous insufficiency Status: Chronic Current Visit: Yes Code(s): I87.2 - Venous insufficiency (chronic) (peripheral) Type of Wound Chief Complaint: Left lower extremity ulcer - Delayed healing. History of Wound: Mr. Chauhan is a 62 year old with PMH as stated above who presented here due to delayed healing of his left lower extremity wound. He denies chills, fever, nausea, vomitting or loss of appetite. He changes dressing as advised. He has 1 more day of Bactrim for treatment of MRSA. He denies ulcer or redness. Progress of Wound: Improving. - Physical Exam Vital Signs Temp Pulse Resp BP 97.5 F L 83 18 118/77 06/24/18 09:13 06/24/18 09:13 06/24/18 09:13 06/24/18 09:13 General: Alert, Oriented x3, Cooperative, No apparent distress HEENT: Atraumatic, Normocephalic Oral: Moist Mucosa Neck: Supple Lungs: Normal air movement Abdomen: Non Tender Extremities: No cyanosis, Edema Skin: Ulcer/ Wound Wound Measurements and Assessment WC - Nurse 1 - General Ulcer Measurement Start: 06/17/18 13:36 Freq: Status: Active Protocol: Activity Type Activity Date Activity User E-Sign Co-Sign Detail Recorded Client Recorded Date Recorded By Document 06/24/18 09:13 [id number] 06/24/18 09:21 06/24/18 09:13 Wound Center Nurse 1 [Ulcer Assessment] 1. L LATERAL LOWER EXTREMITY -Combined with other wound No -Current Size (cm) - Length 6.6 -Current Size (cm) - Width 1.3 -Current Size (cm) - Depth 0.1 -Total Square Cm 8.58 -Date of Last Picture (Recall this 06/24/18 field) -Photo Taken Yes -Epithelialization Small 1-33% -Tunneling No -Undermining/Tunneling No -Circular Undermining No -Exudate Amt Large -Exudate Type Serosanguineous -Wound Margin Distinct, Outline Attached -Granulation Amt Large (67-100%) -Granulation Quality Red -Slough/Fibrin Yes -Necrosis Amt Medium (34-66%) -Necrotic Tissue Type Adherent Slough -Structure Exposed None/Limited to Skin Breakdown -Texture (Kirstie-wound Skin Appearance) Scarring -Moisture (Kirstie-wound Skin Appearance Dry/Scaly ) -Color (Kirstie-wound Skin Appearance) No Abnormality Assessed -Temperature (Kirstie-wound Skin No Abnormality Appearance) (Pt Warm) -Tenderness on Palpation (Kirstie-wound No Skin Appearance) -Ulcer Cleansing Rinsed/ Irrigated with Saline -Foul Odor after Cleansing No -Anesthetic Used 5% Lidocaine Gel [Edema Assessment] -Lower Limb Edema Present No -Left Calf (cm) 35.5 -Left Ankle (cm) 23 WC - Nurse 2 - General Ulcer CM Notes Start: 06/17/18 13:36 Freq: Status: Active Protocol: Activity Type Activity Date Activity User E-Sign Co-Sign Detail Recorded Client Recorded Date Recorded By Document 06/24/18 09:46 MW [id number] 06/24/18 09:54 MW 06/24/18 09:46 Wound Center Nurse 2 [Procedure/Treatment] 1. L LATERAL LOWER EXTREMITY -Time 09:47 -Correct Patient Yes -Correct Side, Site, Position Yes -Correct Procedure Yes -Procedure Performed Yes -Type of Procedure Debridement -Clinical Debridement Subcutaneous -Post Debridement Size (cm) - Length 6.5 -Post Debridement Size (cm) - Width 1.5 -Post Debridement Size (cm) - Depth 0.1 -Total Square Cm 9.75 -Wound/Ulcer Outcome Not Healed -Ulcer Cleansing Rinsed/ Irrigated with Saline -Foul Odor after Cleansing No -Bioengineered Tissue Yes -Type of bioengineered Tissue GRAFIX-Pime -Expiration Date 04/28/19 -Product Lot Number [id number] -Percent Used 100 -Other SALINE LOT # [id number] -Offloading No -Treatment Response Procedure Tolerated Well [See Physician Procedure note for Specifics] Pain Scale: 0-10 Numeric [Pain] -Is Patient Pain Free? Yes Musculoskeletal: No Muscle Wasting Neurological: Cranial nerves II-XII grossly intact Psych/Mental Status: Normal Affect Debridement Note Post-Debridement Measurements/Treatment WC - Nurse 2 - General Ulcer CM Notes Start: 06/17/18 13:36 Freq: Status: Active Protocol: Activity Type Activity Date Activity User E-Sign Co-Sign Detail Recorded Client Recorded Date Recorded By Document 06/17/18 14:02 MERY [id number] 06/17/18 14:05 Document 06/24/18 09:46 MW [id number] 06/24/18 09:54 MW 06/17/18 06/24/18 14:02 09:46 Wound Center Nurse 2 1. L LATERAL LOWER EXTREMITY -Time 14:04 09:47 -Correct Patient Yes Yes -Correct Side, Site, Position Yes Yes -Correct Procedure Yes Yes -Procedure Performed Yes Yes -Type of Procedure Debridement Debridement -Clinical Debridement Subcutaneous Subcutaneous -Post Debridement Size (cm) - Length 11.0 6.5 -Post Debridement Size (cm) - Width 2.1 1.5 -Post Debridement Size (cm) - Depth 0.1 0.1 -Total Square Cm 23.10 9.75 -Wound/Ulcer Outcome Not Healed Not Healed -Ulcer Cleansing Rinsed/ Rinsed/ Irrigated with Irrigated with Saline Saline -Foul Odor after Cleansing No No -Bioengineered Tissue No Yes -Type of bioengineered Tissue GRAFIX-Pime -Expiration Date 04/28/19 -Product Lot Number [id number] -Percent Used 100 -Bleeding Controlled with Pressure -Other SALINE LOT # [id number] -Offloading No No -Treatment Response Procedure Procedure Tolerated Well Tolerated Well Pain Scale: 0-10 Numeric Is Patient Pain Free? Yes Yes Wound debrided: Left lower extremity Wound Grade/Stage: Stage III Type of Debridement: Excisional debridement Anesthesia Used: 4% Lidocaine Solution Depth: Down to and including healthy tissue, in the subcutaneous layer Percentage of wound debrided: 100 Instrument Used: 3mm curette Tissue Removed: Slough and devitalized tissue Severity: Fat Layer Exposed Amount of bleeding with debridement: Mild Bleeding Controlled with: Pressure Patient tolerated procedure well Assessment/Plan Active Problems PAD (peripheral artery disease) (Chronic) Ulcer of left lower extremity with fat layer exposed (Chronic) Venous insufficiency (Chronic) Malnutrition (Chronic) Delayed wound healing (Chronic) Leg edema, left (Chronic) Assessment: Left lower extremity ulcer post I and D with delayed healing. Peripheral arterial disease. Delayed healing. Malnutrition suspected. Lower extremity with venous insufficiency. Arterial calcification Plan: He has completed his course of antibiotics and wound appears much hand glove cleaner today. He however appears o have stalled over the last couple of week despite optimizing traditional wound care products including compression. Now approved for Grafix. Debridement done as documented above, procedure was well tolerated. Initial application of Grafix Mimedix done today using 100% of prouct. Moistened with saline and adaptic over top. Leave on for a week. Continue increased protein intake. Elevate lower extremity when sitted and in bed. Advised to call with any questions or concerns. Follow up in 1 week.
[2018-07-01 09:32] VITALS: BP 127/81; PULSE 84; RESP 18; TEMP 36.7; BMI 42.2
--- NOTE | 2018-07-01 10:39 | PCM.WC.PN ---
(1) Delayed wound healing Status: Chronic Current Visit: Yes Code(s): T14.8XXD - Other injury of unspecified body region, subsequent encounter (2) Ulcer of left lower extremity with fat layer exposed Status: Chronic Current Visit: Yes Code(s): L97.922 - Non-pressure chronic ulcer of unspecified part of left lower leg with fat layer exposed (3) Venous insufficiency Status: Chronic Current Visit: Yes Code(s): I87.2 - Venous insufficiency (chronic) (peripheral) Type of Wound Chief Complaint: Left lower extremity ulcer - Delayed healing. History of Wound: Mr. Chauhan is a 62 year old with PMH as stated above who presented here due to delayed healing of his left lower extremity wound. He denies chills, fever, nausea, vomitting or loss of appetite. He changes dressing as advised. He has 1 more day of Bactrim for treatment of MRSA. He denies ulcer or redness. Progress of Wound: Improving. - Physical Exam Vital Signs Temp Pulse Resp BP 98.0 F 84 18 127/81 H 07/01/18 09:32 07/01/18 09:32 07/01/18 09:32 07/01/18 09:32 General: Alert, Oriented x3, Cooperative, No apparent distress HEENT: Atraumatic Oral: Moist Mucosa Neck: Supple Lungs: Normal air movement Abdomen: Non Tender Extremities: No cyanosis Skin: Ulcer/ Wound Wound Measurements and Assessment WC - Nurse 1 - General Ulcer Measurement Start: 06/17/18 13:36 Freq: Status: Active Protocol: Activity Type Activity Date Activity User E-Sign Co-Sign Detail Recorded Client Recorded Date Recorded By Document 07/01/18 09:32 [id number] 07/01/18 09:33 07/01/18 09:32 Wound Center Nurse 1 [Ulcer Assessment] 1. L LATERAL LOWER EXTREMITY -Combined with other wound No -Current Size (cm) - Length 8.1 -Current Size (cm) - Width 1.5 -Current Size (cm) - Depth 0.1 -Total Square Cm 12.15 -Photo Taken No -Epithelialization Small 1-33% -Tunneling No -Undermining/Tunneling No -Circular Undermining No -Exudate Amt Large -Exudate Type Sanguineous -Wound Margin Distinct, Outline Attached -Granulation Amt Large (67-100%) -Granulation Quality Red -Slough/Fibrin Yes -Necrosis Amt Small (1-33%) -Necrotic Tissue Type Adherent Slough -Structure Exposed None/Limited to Skin Breakdown -Texture (Kirstie-wound Skin Appearance) No Abnormality Assessed -Moisture (Kirstie-wound Skin Appearance Dry/Scaly ) -Color (Kirstie-wound Skin Appearance) No Abnormality Assessed -Temperature (Kirstie-wound Skin No Abnormality Appearance) (Pt Warm) -Tenderness on Palpation (Kirstie-wound No Skin Appearance) -Ulcer Cleansing Rinsed/ Irrigated with Saline -Foul Odor after Cleansing No -Anesthetic Used 4% Lidocaine Solution [Edema Assessment] -Lower Limb Edema Present No -Left Calf (cm) 34.5 -Left Ankle (cm) 21.8 WC - Nurse 2 - General Ulcer CM Notes Start: 06/17/18 13:36 Freq: Status: Active Protocol: Activity Type Activity Date Activity User E-Sign Co-Sign Detail Recorded Client Recorded Date Recorded By Document 07/01/18 09:45 MW [id number] 07/01/18 09:46 MW 07/01/18 09:45 Wound Center Nurse 2 [Procedure/Treatment] 1. L LATERAL LOWER EXTREMITY -Time 09:45 -Correct Patient Yes -Correct Side, Site, Position Yes -Correct Procedure Yes -Procedure Performed Yes -Type of Procedure Debridement -Clinical Debridement Subcutaneous -Post Debridement Size (cm) - Length 5.7 -Post Debridement Size (cm) - Width 1.1 -Post Debridement Size (cm) - Depth 0.1 -Total Square Cm 6.27 -Wound/Ulcer Outcome Not Healed -Ulcer Cleansing Rinsed/ Irrigated with Saline -Foul Odor after Cleansing No -Bioengineered Tissue Yes -Type of bioengineered Tissue GRAFIX-Pime -Expiration Date 05/05/19 -Product Lot Number [id number] -Percent Used 100 -Bleeding Controlled with Pressure -Other SALINE LOT # [id number] -Offloading No -Treatment Response Procedure Tolerated Well [See Physician Procedure note for Specifics] Pain Scale: 0-10 Numeric [Pain] -Is Patient Pain Free? Yes Musculoskeletal: No Muscle Wasting Neurological: Cranial nerves II-XII grossly intact Psych/Mental Status: Normal Affect Debridement Note Post-Debridement Measurements/Treatment WC - Nurse 2 - General Ulcer CM Notes Start: 06/17/18 13:36 Freq: Status: Active Protocol: Activity Type Activity Date Activity User E-Sign Co-Sign Detail Recorded Client Recorded Date Recorded By Document 06/17/18 14:02 [id number] 06/17/18 14:05 JF Document 06/24/18 09:46 MW [id number] 06/24/18 09:54 MW Document 07/01/18 09:45 MW [id number] 07/01/18 09:46 MW 06/17/18 06/24/18 07/01/18 14:02 09:46 09:45 Wound Center Nurse 2 1. L LATERAL LOWER EXTREMITY -Time 14:04 09:47 09:45 -Correct Patient Yes Yes Yes -Correct Side, Site, Position Yes Yes Yes -Correct Procedure Yes Yes Yes -Procedure Performed Yes Yes Yes -Type of Procedure Debridement Debridement Debridement -Clinical Debridement Subcutaneous Subcutaneous Subcutaneous -Post Debridement Size (cm) - Length 11.0 6.5 5.7 -Post Debridement Size (cm) - Width 2.1 1.5 1.1 -Post Debridement Size (cm) - Depth 0.1 0.1 0.1 -Total Square Cm 23.10 9.75 6.27 -Wound/Ulcer Outcome Not Healed Not Healed Not Healed -Ulcer Cleansing Rinsed/ Rinsed/ Rinsed/ Irrigated with Irrigated with Irrigated with Saline Saline Saline -Foul Odor after Cleansing No No No -Bioengineered Tissue No Yes Yes -Type of bioengineered Tissue GRAFIX-Pime GRAFIX-Pime -Expiration Date 04/28/19 05/05/19 -Product Lot Number [id number] -Percent Used 100 100 -Bleeding Controlled with Pressure Pressure -Other SALINE LOT # SALINE LOT # [id number] -Offloading No No No -Treatment Response Procedure Procedure Procedure Tolerated Well Tolerated Well Tolerated Well Pain Scale: 0-10 Numeric Is Patient Pain Free? Yes Yes Yes Wound debrided: Left lower extremity Wound Grade/Stage: Stage III Type of Debridement: Excisional debridement Anesthesia Used: 4% Lidocaine Solution Depth: Down to and including healthy tissue, in the subcutaneous layer Percentage of wound debrided: 100 Instrument Used: 3mm curette Tissue Removed: Slough and devitalized tissue Severity: Fat Layer Exposed Amount of bleeding with debridement: Mild Bleeding Controlled with: Pressure Patient tolerated procedure well Assessment/Plan Active Problems PAD (peripheral artery disease) (Chronic) Ulcer of left lower extremity with fat layer exposed (Chronic) Venous insufficiency (Chronic) Malnutrition (Chronic) Delayed wound healing (Chronic) Leg edema, left (Chronic) Assessment: Left lower extremity ulcer post I and D with delayed healing. Peripheral arterial disease. Delayed healing. Malnutrition suspected. Lower extremity with venous insufficiency. Arterial calcification Plan: Wound is improving. Debridement done as documented above, procedure was well tolerated. Second application of Grafix Mimedix done today using 100% of prouct. Moistened with saline and wound veil over top. Leave on for a week. Continue increased protein intake. Elevate lower extremity when sitted and in bed. Advised to call with any questions or concerns. Follow up in 1 week. This note was generated with [employer] software dictation software. It may contain incorrect words, spelling, and punctuation that were not noted in checking the note before signing.
[2018-07-08 09:38] VITALS: BP 134/74; PULSE 84; RESP 18; TEMP 35.5; BMI 42.2
--- NOTE | 2018-07-08 12:21 | PCM.WC.PN ---
(1) Delayed wound healing Status: Chronic Current Visit: Yes Code(s): T14.8XXD - Other injury of unspecified body region, subsequent encounter (2) Ulcer of left lower extremity with fat layer exposed Status: Chronic Current Visit: Yes Code(s): L97.922 - Non-pressure chronic ulcer of unspecified part of left lower leg with fat layer exposed (3) Venous insufficiency Status: Chronic Current Visit: Yes Code(s): I87.2 - Venous insufficiency (chronic) (peripheral) Type of Wound Chief Complaint: Left lower extremity ulcer - Delayed healing. History of Wound: Mr. Chauhan is a 62 year old with PMH as stated above who presented here due to delayed healing of his left lower extremity wound. He denies chills, fever, nausea, vomitting or loss of appetite. He changes dressing as advised. He has 1 more day of Bactrim for treatment of MRSA. He denies ulcer or redness. Progress of Wound: Stable. No concerns at this time. - Physical Exam Vital Signs Temp Pulse Resp BP 96 F L 84 18 134/74 H 07/08/18 09:38 07/08/18 09:38 07/08/18 09:38 07/08/18 09:38 General: Alert, Oriented x3, Cooperative, No apparent distress HEENT: Atraumatic, Normocephalic Oral: Moist Mucosa Neck: Supple Lungs: Normal air movement Abdomen: Non Tender, Obese Extremities: No cyanosis, Edema Skin: Ulcer/ Wound Wound Measurements and Assessment WC - Nurse 1 - General Ulcer Measurement Start: 06/17/18 13:36 Freq: Status: Active Protocol: Activity Type Activity Date Activity User E-Sign Co-Sign Detail Recorded Client Recorded Date Recorded By Document 07/08/18 09:38 [id number] 07/08/18 09:41 RB 07/08/18 09:38 Wound Center Nurse 1 [Ulcer Assessment] 1. L LATERAL LOWER EXTREMITY -Combined with other wound No -Current Size (cm) - Length 5.4 -Current Size (cm) - Width 1.5 -Current Size (cm) - Depth 0.1 -Total Square Cm 8.10 -Photo Taken No -Tunneling No -Undermining/Tunneling No -Circular Undermining No -Exudate Amt Medium -Exudate Type Serosanguineous -Wound Margin Distinct, Outline Attached -Granulation Amt Large (67-100%) -Granulation Quality [place] -Slough/Fibrin Yes -Necrosis Amt Small (1-33%) -Necrotic Tissue Type Adherent Slough -Structure Exposed N/A -Texture (Kirstie-wound Skin Appearance) Assessed -Moisture (Kirstie-wound Skin Appearance Dry/Scaly ) -Color (Kirstie-wound Skin Appearance) Assessed -Temperature (Kirstie-wound Skin No Abnormality Appearance) (Pt Warm) -Tenderness on Palpation (Kirstie-wound No Skin Appearance) -Ulcer Cleansing Wound Cleanser -Foul Odor after Cleansing No -Anesthetic Used 5% Lidocaine Gel [Edema Assessment] -Lower Limb Edema Present Yes -Left Calf (cm) 42 -Left Ankle (cm) 22.5 WC - Nurse 2 - General Ulcer CM Notes Start: 06/17/18 13:36 Freq: Status: Active Protocol: Activity Type Activity Date Activity User E-Sign Co-Sign Detail Recorded Client Recorded Date Recorded By Document 07/08/18 09:51 MW [id number] 07/08/18 09:58 MW 07/08/18 09:51 Wound Center Nurse 2 [Procedure/Treatment] 1. L LATERAL LOWER EXTREMITY -Time 09:51 -Correct Patient Yes -Correct Side, Site, Position Yes -Correct Procedure Yes -Procedure Performed Yes -Type of Procedure Debridement -Clinical Debridement Subcutaneous -Post Debridement Size (cm) - Length 5.3 -Post Debridement Size (cm) - Width 1.2 -Post Debridement Size (cm) - Depth 0.1 -Total Square Cm 6.36 -Wound/Ulcer Outcome Not Healed -Ulcer Cleansing Rinsed/ Irrigated with Saline -Foul Odor after Cleansing No -Bioengineered Tissue Yes -Type of bioengineered Tissue GRAFIX-Pime -Expiration Date 05/17/19 -Product Lot Number [id number] -Percent Used 100 -Bleeding Controlled with Pressure -Other SALINE LOT # [id number] -Offloading No -Treatment Response Procedure Tolerated Well [See Physician Procedure note for Specifics] Pain Scale: 0-10 Numeric [Pain] -Is Patient Pain Free? Yes Musculoskeletal: No Muscle Wasting Neurological: Cranial nerves II-XII grossly intact Psych/Mental Status: Normal Affect Debridement Note Post-Debridement Measurements/Treatment WC - Nurse 2 - General Ulcer CM Notes Start: 06/17/18 13:36 Freq: Status: Active Protocol: Activity Type Activity Date Activity User E-Sign Co-Sign Detail Recorded Client Recorded Date Recorded By Document 06/17/18 14:02 JF [id number] 06/17/18 14:05 JF Document 06/24/18 09:46 MW [id number] 06/24/18 09:54 MW Document 07/01/18 09:45 MW [id number] 07/01/18 09:46 MW Document 07/08/18 09:51 MW [id number] 07/08/18 09:58 MW 06/17/18 06/24/18 07/01/18 14:02 09:46 09:45 Wound Center Nurse 2 1. L LATERAL LOWER EXTREMITY -Time 14:04 09:47 09:45 -Correct Patient Yes Yes Yes -Correct Side, Site, Position Yes Yes Yes -Correct Procedure Yes Yes Yes -Procedure Performed Yes Yes Yes -Type of Procedure Debridement Debridement Debridement -Clinical Debridement Subcutaneous Subcutaneous Subcutaneous -Post Debridement Size (cm) - Length 11.0 6.5 5.7 -Post Debridement Size (cm) - Width 2.1 1.5 1.1 -Post Debridement Size (cm) - Depth 0.1 0.1 0.1 -Total Square Cm 23.10 9.75 6.27 -Wound/Ulcer Outcome Not Healed Not Healed Not Healed -Ulcer Cleansing Rinsed/ Rinsed/ Rinsed/ Irrigated with Irrigated with Irrigated with Saline Saline Saline -Foul Odor after Cleansing No No No -Bioengineered Tissue No Yes Yes -Type of bioengineered Tissue GRAFIX-Pime GRAFIX-Pime -Expiration Date 04/28/19 05/05/19 -Product Lot Number [id number] -Percent Used 100 100 -Bleeding Controlled with Pressure Pressure -Other SALINE LOT # SALINE LOT # [id number] -Offloading No No No -Treatment Response Procedure Procedure Procedure Tolerated Well Tolerated Well Tolerated Well Pain Scale: 0-10 Numeric Is Patient Pain Free? Yes Yes Yes 07/08/18 09:51 Wound Center Nurse 2 1. L LATERAL LOWER EXTREMITY -Time 09:51 -Correct Patient Yes -Correct Side, Site, Position Yes -Correct Procedure Yes -Procedure Performed Yes -Type of Procedure Debridement -Clinical Debridement Subcutaneous -Post Debridement Size (cm) - Length 5.3 -Post Debridement Size (cm) - Width 1.2 -Post Debridement Size (cm) - Depth 0.1 -Total Square Cm 6.36 -Wound/Ulcer Outcome Not Healed -Ulcer Cleansing Rinsed/ Irrigated with Saline -Foul Odor after Cleansing No -Bioengineered Tissue Yes -Type of bioengineered Tissue GRAFIX-Pime -Expiration Date 05/17/19 -Product Lot Number [id number] -Percent Used 100 -Bleeding Controlled with Pressure -Other SALINE LOT # [id number] -Offloading No -Treatment Response Procedure Tolerated Well Pain Scale: 0-10 Numeric Is Patient Pain Free? Yes Wound debrided: Left lower extremity Wound Grade/Stage: Stage III Type of Debridement: Excisional debridement Anesthesia Used: 4% Lidocaine Solution Depth: Down to and including healthy tissue, in the subcutaneous layer Percentage of wound debrided: 100 Instrument Used: 5mm curette Tissue Removed: Devitalized tissue and biofilm Severity: Fat Layer Exposed Amount of bleeding with debridement: Mild Bleeding Controlled with: Pressure Patient tolerated procedure well Assessment/Plan Active Problems PAD (peripheral artery disease) (Chronic) Ulcer of left lower extremity with fat layer exposed (Chronic) Venous insufficiency (Chronic) Malnutrition (Chronic) Delayed wound healing (Chronic) Leg edema, left (Chronic) Assessment: Left lower extremity ulcer post I and D with delayed healing. Peripheral arterial disease. Delayed healing. Malnutrition suspected. Lower extremity with venous insufficiency. Arterial calcification Plan: Stable wound. No significant change in the past week. Debridement done as documented above, procedure was well tolerated. Third application of Grafix Mimedix done today using 100% of prouct. Moistened with saline and wound veil over top. Leave on for a week. Continue increased protein intake. Elevate lower extremity when sitted and in bed. Advised to call with any questions or concerns. Follow up in 1 week. This note was generated with [employer] software. It may contain incorrect words, spelling, and punctuation that were not noted in checking the note before signing.
--- NOTE | 2018-07-08 12:24 | PN.PCM_ITS ---
(1) Delayed wound healing Status: Chronic Current Visit: Yes Code(s): T14.8XXD - Other injury of unspecified body region, subsequent encounter (2) Ulcer of left lower extremity with fat layer exposed Status: Chronic Current Visit: Yes Code(s): L97.922 - Non-pressure chronic ulcer of unspecified part of left lower leg with fat layer exposed (3) Venous insufficiency Status: Chronic Current Visit: Yes Code(s): I87.2 - Venous insufficiency (chronic) (peripheral) Type of Wound Chief Complaint: Left lower extremity ulcer - Delayed healing. History of Wound: Mr. Chauhan is a 62 year old with PMH as stated above who presented here due to delayed healing of his left lower extremity wound. He denies chills, fever, nausea, vomitting or loss of appetite. He changes dressing as advised. He has 1 more day of Bactrim for treatment of MRSA. He denies ulcer or redness. Progress of Wound: Stable. No concerns at this time. - Physical Exam Vital Signs Temp Pulse Resp BP 96 F L 84 18 134/74 H 07/08/18 09:38 07/08/18 09:38 07/08/18 09:38 07/08/18 09:38 General: Alert, Oriented x3, Cooperative, No apparent distress HEENT: Atraumatic, Normocephalic Oral: Moist Mucosa Neck: Supple Lungs: Normal air movement Abdomen: Non Tender, Obese Extremities: No cyanosis, Edema Skin: Ulcer/ Wound Wound Measurements and Assessment WC - Nurse 1 - General Ulcer Measurement Start: 06/17/18 13:36 Freq: Status: Active Protocol: Activity Type Activity Date Activity User E-Sign Co-Sign Detail Recorded Client Recorded Date Recorded By Document 07/08/18 09:38 [id number] 07/08/18 09:41 RB 07/08/18 09:38 Wound Center Nurse 1 [Ulcer Assessment] 1. L LATERAL LOWER EXTREMITY -Combined with other wound No -Current Size (cm) - Length 5.4 -Current Size (cm) - Width 1.5 -Current Size (cm) - Depth 0.1 -Total Square Cm 8.10 -Photo Taken No -Tunneling No -Undermining/Tunneling No -Circular Undermining No -Exudate Amt Medium -Exudate Type Serosanguineous -Wound Margin Distinct, Outline Attached -Granulation Amt Large (67-100%) -Granulation Quality [place] -Slough/Fibrin Yes -Necrosis Amt Small (1-33%) -Necrotic Tissue Type Adherent Slough -Structure Exposed N/A -Texture (Kirstie-wound Skin Appearance) Assessed -Moisture (Kirstie-wound Skin Appearance Dry/Scaly ) -Color (Kirstie-wound Skin Appearance) Assessed -Temperature (Kirstie-wound Skin No Abnormality Appearance) (Pt Warm) -Tenderness on Palpation (Kirstie-wound No Skin Appearance) -Ulcer Cleansing Wound Cleanser -Foul Odor after Cleansing No -Anesthetic Used 5% Lidocaine Gel [Edema Assessment] -Lower Limb Edema Present Yes -Left Calf (cm) 42 -Left Ankle (cm) 22.5 WC - Nurse 2 - General Ulcer CM Notes Start: 06/17/18 13:36 Freq: Status: Active Protocol: Activity Type Activity Date Activity User E-Sign Co-Sign Detail Recorded Client Recorded Date Recorded By Document 07/08/18 09:51 MW [id number] 07/08/18 09:58 MW 07/08/18 09:51 Wound Center Nurse 2 [Procedure/Treatment] 1. L LATERAL LOWER EXTREMITY -Time 09:51 -Correct Patient Yes -Correct Side, Site, Position Yes -Correct Procedure Yes -Procedure Performed Yes -Type of Procedure Debridement -Clinical Debridement Subcutaneous -Post Debridement Size (cm) - Length 5.3 -Post Debridement Size (cm) - Width 1.2 -Post Debridement Size (cm) - Depth 0.1 -Total Square Cm 6.36 -Wound/Ulcer Outcome Not Healed -Ulcer Cleansing Rinsed/ Irrigated with Saline -Foul Odor after Cleansing No -Bioengineered Tissue Yes -Type of bioengineered Tissue GRAFIX-Pime -Expiration Date 05/17/19 -Product Lot Number [id number] -Percent Used 100 -Bleeding Controlled with Pressure -Other SALINE LOT # [id number] -Offloading No -Treatment Response Procedure Tolerated Well [See Physician Procedure note for Specifics] Pain Scale: 0-10 Numeric [Pain] -Is Patient Pain Free? Yes Musculoskeletal: No Muscle Wasting Neurological: Cranial nerves II-XII grossly intact Psych/Mental Status: Normal Affect Debridement Note Post-Debridement Measurements/Treatment WC - Nurse 2 - General Ulcer CM Notes Start: 06/17/18 13:36 Freq: Status: Active Protocol: Activity Type Activity Date Activity User E-Sign Co-Sign Detail Recorded Client Recorded Date Recorded By Document 06/17/18 14:02 JF [id number] 06/17/18 14:05 JF Document 06/24/18 09:46 MW [id number] 06/24/18 09:54 MW Document 07/01/18 09:45 MW [id number] 07/01/18 09:46 MW Document 07/08/18 09:51 MW [id number] 07/08/18 09:58 MW 06/17/18 06/24/18 07/01/18 14:02 09:46 09:45 Wound Center Nurse 2 1. L LATERAL LOWER EXTREMITY -Time 14:04 09:47 09:45 -Correct Patient Yes Yes Yes -Correct Side, Site, Position Yes Yes Yes -Correct Procedure Yes Yes Yes -Procedure Performed Yes Yes Yes -Type of Procedure Debridement Debridement Debridement -Clinical Debridement Subcutaneous Subcutaneous Subcutaneous -Post Debridement Size (cm) - Length 11.0 6.5 5.7 -Post Debridement Size (cm) - Width 2.1 1.5 1.1 -Post Debridement Size (cm) - Depth 0.1 0.1 0.1 -Total Square Cm 23.10 9.75 6.27 -Wound/Ulcer Outcome Not Healed Not Healed Not Healed -Ulcer Cleansing Rinsed/ Rinsed/ Rinsed/ Irrigated with Irrigated with Irrigated with Saline Saline Saline -Foul Odor after Cleansing No No No -Bioengineered Tissue No Yes Yes -Type of bioengineered Tissue GRAFIX-Pime GRAFIX-Pime -Expiration Date 04/28/19 05/05/19 -Product Lot Number [id number] -Percent Used 100 100 -Bleeding Controlled with Pressure Pressure -Other SALINE LOT # SALINE LOT # [id number] -Offloading No No No -Treatment Response Procedure Procedure Procedure Tolerated Well Tolerated Well Tolerated Well Pain Scale: 0-10 Numeric Is Patient Pain Free? Yes Yes Yes 07/08/18 09:51 Wound Center Nurse 2 1. L LATERAL LOWER EXTREMITY -Time 09:51 -Correct Patient Yes -Correct Side, Site, Position Yes -Correct Procedure Yes -Procedure Performed Yes -Type of Procedure Debridement -Clinical Debridement Subcutaneous -Post Debridement Size (cm) - Length 5.3 -Post Debridement Size (cm) - Width 1.2 -Post Debridement Size (cm) - Depth 0.1 -Total Square Cm 6.36 -Wound/Ulcer Outcome Not Healed -Ulcer Cleansing Rinsed/ Irrigated with Saline -Foul Odor after Cleansing No -Bioengineered Tissue Yes -Type of bioengineered Tissue GRAFIX-Pime -Expiration Date 05/17/19 -Product Lot Number [id number] -Percent Used 100 -Bleeding Controlled with Pressure -Other SALINE LOT # [id number] -Offloading No -Treatment Response Procedure Tolerated Well Pain Scale: 0-10 Numeric Is Patient Pain Free? Yes Wound debrided: Left lower extremity Wound Grade/Stage: Stage III Type of Debridement: Excisional debridement Anesthesia Used: 4% Lidocaine Solution Depth: Down to and including healthy tissue, in the subcutaneous layer Percentage of wound debrided: 100 Instrument Used: 5mm curette Tissue Removed: Devitalized tissue and biofilm Severity: Fat Layer Exposed Amount of bleeding with debridement: Mild Bleeding Controlled with: Pressure Patient tolerated procedure well Assessment/Plan Active Problems PAD (peripheral artery disease) (Chronic) Ulcer of left lower extremity with fat layer exposed (Chronic) Venous insufficiency (Chronic) Malnutrition (Chronic) Delayed wound healing (Chronic) Leg edema, left (Chronic) Assessment: Left lower extremity ulcer post I and D with delayed healing. Peripheral arterial disease. Delayed healing. Malnutrition suspected. Lower extremity with venous insufficiency. Arterial calcification Plan: Stable wound. No significant change in the past week. Debridement done as documented above, procedure was well tolerated. Third application of Grafix Mimedix done today using 100% of prouct. Moistened with saline and wound veil over top. Leave on for a week. Continue increased protein intake. Elevate lower extremity when sitted and in bed. Advised to call with any questions or c oncerns. Follow up in 1 week. This note was generated with [employer] software. It may contain incorrect words, spelling, and punctuation that were not noted in checking the note before signing.
[2018-07-15 09:49] VITALS: BP 123/81; PULSE 89; RESP 18; TEMP 36.9; BMI 42.2
--- NOTE | 2018-07-15 11:45 | PN.PCM_ITS ---
(1) Delayed wound healing Status: Chronic Current Visit: Yes Code(s): T14.8XXD - Other injury of unspecified body region, subsequent encounter (2) Ulcer of left lower extremity with fat layer exposed Status: Chronic Current Visit: Yes Code(s): L97.922 - Non-pressure chronic ulcer of unspecified part of left lower leg with fat layer exposed (3) Venous insufficiency Status: Chronic Current Visit: Yes Code(s): I87.2 - Venous insufficiency (chronic) (peripheral) Type of Wound Chief Complaint: Left lower extremity ulcer - Delayed healing. History of Wound: Mr. Chauhan is a 62 year old with PMH as stated above who presented here due to delayed healing of his left lower extremity wound. He denies chills, fever, nausea, vomitting or loss of appetite. He changes dressing as advised. He has 1 more day of Bactrim for treatment of MRSA. He denies ulcer or redness. Progress of Wound: Stable. No concerns at this time. - Physical Exam Vital Signs Temp Pulse Resp BP 98.4 F 89 18 123/81 H 07/15/18 09:49 07/15/18 09:49 07/15/18 09:49 07/15/18 09:49 General: Alert, Oriented x3, Cooperative, No apparent distress HEENT: Atraumatic, Normocephalic Oral: Moist Mucosa Neck: Supple Lungs: Normal air movement Abdomen: Non Tender Extremities: No cyanosis, Edema Skin: Ulcer/ Wound Wound Measurements and Assessment WC - Nurse 1 - General Ulcer Measurement Start: 06/17/18 13:36 Freq: Status: Active Protocol: Activity Type Activity Date Activity User E-Sign Co-Sign Detail Recorded Client Recorded Date Recorded By Document 07/15/18 09:49 MW [id number] 07/15/18 10:01 MW 07/15/18 09:49 Wound Center Nurse 1 [Ulcer Assessment] 1. L LATERAL LOWER EXTREMITY -Combined with other wound No -Current Size (cm) - Length 5.2 -Current Size (cm) - Width 0.9 -Current Size (cm) - Depth 0.1 -Total Square Cm 4.68 -Date of Last Picture (Recall this 07/15/18 field) -Photo Taken Yes -Epithelialization Small 1-33% -Tunneling No -Undermining/Tunneling No -Circular Undermining No -Exudate Amt Small -Exudate Type Serosanguineous -Wound Margin Flat & Intact -Granulation Amt Large (67-100%) -Granulation Quality Red -Slough/Fibrin Yes -Necrosis Amt Small (1-33%) -Necrotic Tissue Type Adherent Slough -Structure Exposed N/A -Texture (Kirstie-wound Skin Appearance) No Abnormality Localized Edema Scarring -Moisture (Kirstie-wound Skin Appearance Assessed ) Dry/Scaly -Color (Kirstie-wound Skin Appearance) Assessed Rubor -Temperature (Kirstie-wound Skin No Abnormality Appearance) (Pt Warm) -Tenderness on Palpation (Kirstie-wound No Skin Appearance) -Ulcer Cleansing soap and water -Foul Odor after Cleansing No -Anesthetic Used 4% Lidocaine Solution [Edema Assessment] -Lower Limb Edema Present Yes -Left Calf (cm) 39.0 -Left Ankle (cm) 21.6 WC - Nurse 2 - General Ulcer CM Notes Start: 06/17/18 13:36 Freq: Status: Active Protocol: Activity Type Activity Date Activity User E-Sign Co-Sign Detail Recorded Client Recorded Date Recorded By Document 07/15/18 10:04 MW [id number] 07/15/18 10:15 MW 07/15/18 10:04 Wound Center Nurse 2 [Procedure/Treatment] 1. L LATERAL LOWER EXTREMITY -Time 10:05 -Correct Patient Yes -Correct Side, Site, Position Yes -Correct Procedure Yes -Procedure Performed Yes -Type of Procedure Debridement -Clinical Debridement Subcutaneous -Post Debridement Size (cm) - Length 5.0 -Post Debridement Size (cm) - Width 0.9 -Post Debridement Size (cm) - Depth 0.1 -Total Square Cm 4.50 -Wound/Ulcer Outcome Not Healed -Ulcer Cleansing Rinsed/ Irrigated with Saline -Foul Odor after Cleansing No -Bioengineered Tissue Yes -Type of bioengineered Tissue GRAFIX-Pime -Expiration Date 05/19/19 -Product Lot Number [id number] -Percent Used 100 -Saline Lot Number [id number] -Bleeding Controlled with Pressure -Offloading No -Treatment Response Procedure Tolerated Well [See Physician Procedure note for Specifics] Pain Scale: 0-10 Numeric [Pain] -Is Patient Pain Free? Yes Musculoskeletal: No Muscle Wasting Neurological: Cranial nerves II-XII grossly intact Psych/Mental Status: Normal Affect Debridement Note Post-Debridement Measurements/Treatment WC - Nurse 2 - General Ulcer CM Notes Start: 06/17/18 13:36 Freq: Status: Active Protocol: Activity Type Activity Date Activity User E-Sign Co-Sign Detail Recorded Client Recorded Date Recorded By Document 06/17/18 14:02 JF [id number] 06/17/18 14:05 JF Document 06/24/18 09:46 MW [id number] 06/24/18 09:54 MW Document 07/01/18 09:45 MW [id number] 07/01/18 09:46 MW Document 07/08/18 09:51 MW [id number] 07/08/18 09:58 MW Document 07/15/18 10:04 MW [id number] 07/15/18 10:15 MW 06/17/18 06/24/18 07/01/18 14:02 09:46 09:45 Wound Center Nurse 2 1. L LATERAL LOWER EXTREMITY -Time 14:04 09:47 09:45 -Correct Patient Yes Yes Yes -Correct Side, Site, Position Yes Yes Yes -Correct Procedure Yes Yes Yes -Procedure Performed Yes Yes Yes -Type of Procedure Debridement Debridement Debridement -Clinical Debridement Subcutaneous Subcutaneous Subcutaneous -Post Debridement Size (cm) - Length 11.0 6.5 5.7 -Post Debridement Size (cm) - Width 2.1 1.5 1.1 -Post Debridement Size (cm) - Depth 0.1 0.1 0.1 -Total Square Cm 23.10 9.75 6.27 -Wound/Ulcer Outcome Not Healed Not Healed Not Healed -Ulcer Cleansing Rinsed/ Rinsed/ Rinsed/ Irrigated with Irrigated with Irrigated with Saline Saline Saline -Foul Odor after Cleansing No No No -Bioengineered Tissue No Yes Yes -Type of bioengineered Tissue GRAFIX-Pime GRAFIX-Pime -Expiration Date 04/28/19 05/05/19 -Product Lot Number [id number] -Percent Used 100 100 -Saline Lot Number -Bleeding Controlled with Pressure Pressure -Other SALINE LOT # SALINE LOT # [id number] -Offloading No No No -Treatment Response Procedure Procedure Procedure Tolerated Well Tolerated Well Tolerated Well Pain Scale: 0-10 Numeric Is Patient Pain Free? Yes Yes Yes 07/08/18 07/15/18 09:51 10:04 Wound Center Nurse 2 1. L LATERAL LOWER EXTREMITY -Time 09:51 10:05 -Correct Patient Yes Yes -Correct Side, Site, Position Yes Yes -Correct Procedure Yes Yes -Procedure Performed Yes Yes -Type of Procedure Debridement Debridement -Clinical Debridement Subcutaneous Subcutaneous -Post Debridement Size (cm) - Length 5.3 5.0 -Post Debridement Size (cm) - Width 1.2 0.9 -Post Debridement Size (cm) - Depth 0.1 0.1 -Total Square Cm 6.36 4.50 -Wound/Ulcer Outcome Not Healed Not Healed -Ulcer Cleansing Rinsed/ Rinsed/ Irrigated with Irrigated with Saline Saline -Foul Odor after Cleansing No No -Bioengineered Tissue Yes Yes -Type of bioengineered Tissue GRAFIX-Pime GRAFIX-Pime -Expiration Date 05/17/19 05/19/19 -Product Lot Number [id number] -Percent Used 100 100 -Saline Lot Number [id number] -Bleeding Controlled with Pressure Pressure -Other SALINE LOT # [id number] -Offloading No No -Treatment Response Procedure Procedure Tolerated Well Tolerated Well Pain Scale: 0-10 Numeric Is Patient Pain Free? Yes Yes Wound debrided: Left lower extremity Wound Grade/Stage: Stage III Type of Debridement: Excisional debridement Anesthesia Used: 4% Lidocaine Solution Depth: Down to and including healthy tissue, in the subcutaneous layer Percentage of wound debrided: 100 Instrument Used: 5mm curette Tissue Removed: Devitalized tissue Severity: Fat Layer Exposed Amount of bleeding with debridement: Mild Bleeding Controlled with: Pressure Patient tolerated procedure well Assessment/Plan Active Problems PAD (peripheral artery disease) (Chronic) Ulcer of left lower extremity with fat layer exposed (Chronic) Venous insufficiency (Chronic) Malnutrition (Chronic) Delayed wound healing (Chronic) Leg edema, left (Chronic) Assessment: Left lower extremity ulcer post I and D with delayed healing. Peripheral arterial disease. Delayed healing. Malnutrition suspected. Lower extremity with venous insufficiency. Arterial calcification Plan: Slowly improving. Possibly because of underlying PAD. Debridement done as documented above, procedure was well tolerated. Fourth application of Grafix Mimedix done today using 100% of prouct. Moistened with saline and Adaptic over top. Leave on for a week. Continue increased protein intake. Elevate lower extremity when sitted and in bed. 3M wrap for edema management. Advised to call with any questions or concerns. Follow up in 1 week. This note was generated with [employer] software. It may contain incorrect words, spelling, and punctuation that were not noted in checking the note before signing.
== END 2018-07-16 23:59 ==
LOC: WC 09:30
PROVIDERS: Family Provider Family Medicine; PCP Family Medicine; Visit Provider Internal Medicine
DX: I73.9 Peripheral vascular disease, unspecified (principal); L97.822 Non-pressure chronic ulcer of other part of left lower leg with fat layer exposed; R60.0 Localized edema; I87.2 Venous insufficiency (chronic) (peripheral)
CPT/HCPCS: 11042; 11045; 15271; 29581; Q4133

== ENCOUNTER → 2018-08-05 15:49 | Outpatient (CLI) | payer OTHER, SELFPAY ==
[2018-08-05 10:24] VITALS: BMI 42.2
== END ==
PROVIDERS: Family Provider Family Medicine; PCP Family Medicine; Referring Provider Internal Medicine; Visit Provider Internal Medicine
DX: L97.929 Non-pressure chronic ulcer of unspecified part of left lower leg with unspecified severity (principal)
CPT/HCPCS: 87070; 87075; 87205

== ENCOUNTER 2018-08-12 09:30 | Outpatient (RCR) | payer OTHER, SELFPAY ==
[2018-07-17 01:09] VITALS: BP 123/81; PULSE 89; RESP 18; TEMP 36.9
[2018-07-22 09:25] VITALS: BP 148/109; PULSE 80; RESP 18; TEMP 36.2; BMI 42.2
--- NOTE | 2018-07-22 11:37 | PCM.WC.PN ---
(1) Delayed wound healing Status: Chronic Current Visit: Yes Code(s): T14.8XXD - Other injury of unspecified body region, subsequent encounter (2) PAD (peripheral artery disease) Status: Chronic Current Visit: Yes Code(s): I73.9 - Peripheral vascular disease, unspecified (3) Venous insufficiency Status: Chronic Current Visit: Yes Code(s): I87.2 - Venous insufficiency (chronic) (peripheral) (4) Wound of left lower extremity Status: Chronic Current Visit: Yes Code(s): S81.802A - Unspecified open wound, left lower leg, initial encounter Comment: Post debridement/hematoma evacuation. Type of Wound Chief Complaint: Left lower extremity ulcer - Delayed healing. History of Wound: Mr. Chauhan is a 62 year old with PMH as stated above who presented here due to delayed healing of his left lower extremity wound. He denies chills, fever, nausea, vomitting or loss of appetite. He changes dressing as advised. He has 1 more day of Bactrim for treatment of MRSA. He denies ulcer or redness. Progress of Wound: Improving. - Physical Exam Vital Signs Temp Pulse Resp BP 97.1 F L 80 18 148/109 H 07/22/18 09:25 02 09:25 07/22/18 09:25 07/22/18 09:25 General: Alert, Oriented x3, Cooperative, No apparent distress HEENT: Atraumatic, Normocephalic Oral: Moist Mucosa Neck: Supple Lungs: Normal air movement Abdomen: Non Tender, Obese Extremities: No cyanosis, Edema Skin: Ulcer/ Wound Wound Measurements and Assessment WC - Nurse 1 - General Ulcer Measurement Start: 07/22/18 09:25 Freq: Status: Active Protocol: Activity Type Activity Date Activity User E-Sign Co-Sign Detail Recorded Client Recorded Date Recorded By Document 07/22/18 09:25 AN [id number] 07/22/18 09:31 AN 07/22/18 09:25 Wound Center Nurse 1 [Ulcer Assessment] 1. L LATERAL LOWER EXTREMITY -Current Size (cm) - Length 4.3 -Current Size (cm) - Width 1.0 -Current Size (cm) - Depth 0.1 -Total Square Cm 4.30 -Photo Taken No -Epithelialization None Present -Tunneling No -Undermining/Tunneling No -Classification - Thickness Full Thickness without Exposed Support Structure -Exudate Amt Medium -Exudate Type Serosanguineous -Wound Margin Distinct, Outline Attached -Granulation Amt Large (67-100%) -Granulation Quality Red -Necrosis Amt Small (1-33%) -Necrotic Tissue Type Adherent Slough -Structure Exposed None/Limited to Skin Breakdown -Texture (Kirstie-wound Skin Appearance) Assessed Scarring -Moisture (Kirstie-wound Skin Appearance Assessed ) -Color (Kirstie-wound Skin Appearance) Assessed -Temperature (Kirstie-wound Skin No Abnormality Appearance) (Pt Warm) -Tenderness on Palpation (Kirstie-wound No Skin Appearance) -Ulcer Cleansing soap and water -Foul Odor after Cleansing No -Anesthetic Used 4% Lidocaine Solution [Edema Assessment] -Left Calf (cm) 37.5 -Left Ankle (cm) 21.5 WC - Nurse 2 - General Ulcer CM Notes Start: 07/22/18 09:25 Freq: Status: Active Protocol: Activity Type Activity Date Activity User E-Sign Co-Sign Detail Recorded Client Recorded Date Recorded By Document 07/22/18 10:34 MW [id number] 07/22/18 10:42 MW 07/22/18 10:34 Wound Center Nurse 2 [Procedure/Treatment] 1. L LATERAL LOWER EXTREMITY -Time 10:35 -Correct Patient Yes -Correct Side, Site, Position Yes -Correct Procedure Yes -Procedure Performed Yes -Type of Procedure Debridement -Clinical Debridement Subcutaneous -Post Debridement Size (cm) - Length 4.0 -Post Debridement Size (cm) - Width 0.8 -Post Debridement Size (cm) - Depth 0.1 -Total Square Cm 3.20 -Wound/Ulcer Outcome Not Healed -Ulcer Cleansing Rinsed/ Irrigated with Saline -Foul Odor after Cleansing No -Bioengineered Tissue Yes -Type of bioengineered Tissue GRAFIX-Pime -Expiration Date 05/29/19 -Product Lot Number [id number] -Percent Used 100 -Bleeding Controlled with Pressure -Other SALINE LOT# [id number] -Offloading No -Treatment Response Procedure Tolerated Well [See Physician Procedure note for Specifics] Pain Scale: 0-10 Numeric [Pain] -Is Patient Pain Free? Yes Musculoskeletal: No Muscle Wasting Neurological: Cranial nerves II-XII grossly intact Psych/Mental Status: Normal Affect Debridement Note Post-Debridement Measurements/Treatment WC - Nurse 2 - General Ulcer CM Notes Start: 07/22/18 09:25 Freq: Status: Active Protocol: Activity Type Activity Date Activity User E-Sign Co-Sign Detail Recorded Client Recorded Date Recorded By Document 07/22/18 10:34 MW [id number] 07/22/18 10:42 MW 07/22/18 10:34 Wound Center Nurse 2 1. L LATERAL LOWER EXTREMITY -Time 10:35 -Correct Patient Yes -Correct Side, Site, Position Yes -Correct Procedure Yes -Procedure Performed Yes -Type of Procedure Debridement -Clinical Debridement Subcutaneous -Post Debridement Size (cm) - Length 4.0 -Post Debridement Size (cm) - Width 0.8 -Post Debridement Size (cm) - Depth 0.1 -Total Square Cm 3.20 -Wound/Ulcer Outcome Not Healed -Ulcer Cleansing Rinsed/ Irrigated with Saline -Foul Odor after Cleansing No -Bioengineered Tissue Yes -Type of bioengineered Tissue GRAFIX-Pime -Expiration Date 05/29/19 -Product Lot Number [id number] -Percent Used 100 -Bleeding Controlled with Pressure -Other SALINE LOT# [id number] -Offloading No -Treatment Response Procedure Tolerated Well Pain Scale: 0-10 Numeric Is Patient Pain Free? Yes Wound debrided: Left lower extremity Wound Grade/Stage: Stage III Type of Debridement: Excisional debridement Anesthesia Used: 4% Lidocaine Solution Depth: Down to and including healthy tissue, in the subcutaneous layer Percentage of wound debrided: 100 Instrument Used: 3mm curette Tissue Removed: Biofilm, devitalized tissue Severity: Fat Layer Exposed Amount of bleeding with debridement: Mild Bleeding Controlled with: Pressure Patient tolerated procedure well Assessment/Plan Active Problems Wound of left lower extremity (Chronic) Post debridement/hematoma evacuation. PAD (peripheral artery disease) (Chronic) Venous insufficiency (Chronic) Delayed wound healing (Chronic) Assessment: Left lower extremity ulcer post I and D with delayed healing. Peripheral arterial disease. Delayed healing. Malnutrition suspected. Lower extremity with venous insufficiency. Arterial calcification Plan: Significant improvement in the past week. Debridement done as documented above, procedure was well tolerated. 5th application of Grafix Mimedix done today using 100% of prouct. Moistened with saline and Adaptic over top. Leave on for a week. Continue increased protein intake. Elevate lower extremity when sitted and in bed. 3M wrap for edema management. Advised to call with any questions or concerns. Follow up in 1 week. This note was generated with [employer] software. It may contain incorrect words, spelling, and punctuation that were not noted in checking the note before signing.
[2018-07-29 09:35] VITALS: BP 120/92; PULSE 84; RESP 16; TEMP 36.8; BMI 42.2
--- NOTE | 2018-07-29 10:17 | PN.PCM_ITS ---
(1) Delayed wound healing Status: Chronic Current Visit: Yes Code(s): T14.8XXD - Other injury of unspecified body region, subsequent encounter (2) PAD (peripheral artery disease) Status: Chronic Current Visit: Yes Code(s): I73.9 - Peripheral vascular disease, unspecified (3) Venous insufficiency Status: Chronic Current Visit: Yes Code(s): I87.2 - Venous insufficiency (chronic) (peripheral) (4) Wound of left lower extremity Status: Chronic Current Visit: Yes Code(s): S81.802A - Unspecified open wound, left lower leg, initial encounter Comment: Post debridement/hematoma evacuation. Type of Wound Chief Complaint: Left lower extremity ulcer - Delayed healing. History of Wound: Mr. Chauhan is a 62 year old with PMH as stated above who presented here due to delayed healing of his left lower extremity wound. He denies chills, fever, nausea, vomitting or loss of appetite. He changes dressing as advised. He has 1 more day of Bactrim for treatment of MRSA. He denies ulcer or redness. Progress of Wound: Improving. No new concerns at this time. - Physical Exam Vital Signs Temp Pulse Resp BP 98.2 F 84 16 120/92 H 07/29/18 09:35 07/29/18 09:35 07/29/18 09:35 07/29/18 09:35 General: Alert, Oriented x3, Cooperative, No apparent distress HEENT: Atraumatic, Normocephalic Oral: Moist Mucosa Neck: Supple Lungs: Normal air movement Abdomen: Non Tender, Obese Extremities: No cyanosis, Edema Skin: Ulcer/ Wound Wound Measurements and Assessment WC - Nurse 1 - General Ulcer Measurement Start: 07/22/18 09:25 Freq: Status: Active Protocol: Activity Type Activity Date Activity User E-Sign Co-Sign Detail Recorded Client Recorded Date Recorded By Document 07/29/18 09:35 [facility] [id number] 07/29/18 09:40 [facility] 07/29/18 09:35 Wound Center Nurse 1 [Ulcer Assessment] 1. L LATERAL LOWER EXTREMITY -Combined with other wound No -Current Size (cm) - Length 3.9 -Current Size (cm) - Width 0.7 -Current Size (cm) - Depth 0.1 -Total Square Cm 2.73 -Date of Last Picture (Recall this 07/29/18 field) -Photo Taken Yes -Epithelialization Small 1-33% -Tunneling No -Undermining/Tunneling No -Circular Undermining No -Exudate Amt Small -Exudate Type Serosanguineous -Wound Margin Flat & Intact -Granulation Amt Large (67-100%) -Granulation Quality Red -Slough/Fibrin Yes -Necrosis Amt Small (1-33%) -Necrotic Tissue Type Adherent Slough -Texture (Kirstie-wound Skin Appearance) Scarring -Moisture (Kirstie-wound Skin Appearance Dry/Scaly ) -Color (Kirstie-wound Skin Appearance) Assessed -Temperature (Kirstie-wound Skin No Abnormality Appearance) (Pt Warm) -Tenderness on Palpation (Kirstie-wound No Skin Appearance) -Ulcer Cleansing Wound Cleanser -Foul Odor after Cleansing No -Anesthetic Used 5% Lidocaine Gel [Edema Assessment] -Lower Limb Edema Present Yes -Left Calf (cm) 38.9 -Left Ankle (cm) 21.8 WC - Nurse 2 - General Ulcer CM Notes Start: 07/22/18 09:25 Freq: Status: Active Protocol: Activity Type Activity Date Activity User E-Sign Co-Sign Detail Recorded Client Recorded Date Recorded By Document 07/29/18 09:54 MW [id number] 07/29/18 10:02 MW 07/29/18 09:54 Wound Center Nurse 2 [Procedure/Treatment] 1. L LATERAL LOWER EXTREMITY -Time 09:55 -Correct Patient Yes -Correct Side, Site, Position Yes -Correct Procedure Yes -Procedure Performed Yes -Type of Procedure Debridement -Clinical Debridement Subcutaneous -Post Debridement Size (cm) - Length 3.7 -Post Debridement Size (cm) - Width 0.7 -Post Debridement Size (cm) - Depth 0.1 -Total Square Cm 2.59 -Wound/Ulcer Outcome Not Healed -Ulcer Cleansing Rinsed/ Irrigated with Saline -Foul Odor after Cleansing Yes -Bioengineered Tissue No -Type of bioengineered Tissue GRAFIX-Pime -Expiration Date 06/02/19 -Product Lot Number [id number] -Percent Used 100 -Saline Lot Number [id number] -Bleeding Controlled with Pressure -Offloading No -Treatment Response Procedure Tolerated Well [See Physician Procedure note for Specifics] Pain Scale: 0-10 Numeric [Pain] -Is Patient Pain Free? Yes Musculoskeletal: No Muscle Wasting Neurological: Cranial nerves II-XII grossly intact Psych/Mental Status: Normal Affect Debridement Note Post-Debridement Measurements/Treatment WC - Nurse 2 - General Ulcer CM Notes Start: 07/22/18 09:25 Freq: Status: Active Protocol: Activity Type Activity Date Activity User E-Sign Co-Sign Detail Recorded Client Recorded Date Recorded By Document 07/22/18 10:34 MW [id number] 07/22/18 10:42 MW Document 07/29/18 09:54 MW [id number] 07/29/18 10:02 MW 07/22/18 07/29/18 10:34 09:54 Wound Center Nurse 2 1. L LATERAL LOWER EXTREMITY -Time 10:35 09:55 -Correct Patient Yes Yes -Correct Side, Site, Position Yes Yes -Correct Procedure Yes Yes -Procedure Performed Yes Yes -Type of Procedure Debridement Debridement -Clinical Debridement Subcutaneous Subcutaneous -Post Debridement Size (cm) - Length 4.0 3.7 -Post Debridement Size (cm) - Width 0.8 0.7 -Post Debridement Size (cm) - Depth 0.1 0.1 -Total Square Cm 3.20 2.59 -Wound/Ulcer Outcome Not Healed Not Healed -Ulcer Cleansing Rinsed/ Rinsed/ Irrigated with Irrigated with Saline Saline -Foul Odor after Cleansing No Yes -Bioengineered Tissue Yes No -Type of bioengineered Tissue GRAFIX-Pime GRAFIX-Pime -Expiration Date 05/29/19 06/02/19 -Product Lot Number [id number] -Percent Used 100 100 -Saline Lot Number [id number] -Bleeding Controlled with Pressure Pressure -Other SALINE LOT# [id number] -Offloading No No -Treatment Response Procedure Procedure Tolerated Well Tolerated Well Pain Scale: 0-10 Numeric Is Patient Pain Free? Yes Yes Wound debrided: Left lower extremity Wound Grade/Stage: Stage III Type of Debridement: Excisional debridement Anesthesia Used: 4% Lidocaine Solution Depth: Down to and including healthy tissue, in the subcutaneous layer Percentage of wound debrided: 100 Instrument Used: 3mm curette Tissue Removed: Devitalized tissue and slough. Severity: Fat Layer Exposed Amount of bleeding with debridement: Mild Bleeding Controlled with: Pressure Patient tolerated procedure well Assessment/Plan Active Problems Wound of left lower extremity (Chronic) Post debridement/hematoma evacuation. PAD (peripheral artery disease) (Chronic) Venous insufficiency (Chronic) Delayed wound healing (Chronic) Assessment: Left lower extremity ulcer post I and D with delayed healing. Peripheral arterial disease. Delayed healing. Malnutrition suspected. Lower extremity with venous insufficiency. Arterial calcification Plan: Wound continues to improve. Debridement done as documented above, procedure was well tolerated. 6th application of Grafix Mimedix done today using 100% of prouct. Moistened with saline and Adaptic over top. Leave on for a week. Continue increased protein intake. Elevate lower extremity when sitted and in bed. 3M wrap for edema management. Advised to call with any questions or concerns. Follow up in 1 week. This note was generated with [email or web address] dictation software. It may contain incorrect words, spelling, and punctuation that were not noted in checking the note before signing.
[2018-08-05 10:24] VITALS: BP 136/92; PULSE 88; RESP 18; TEMP 37; BMI 42.2
--- NOTE | 2018-08-05 12:08 | PN.PCM_ITS ---
(1) Delayed wound healing Status: Chronic Current Visit: Yes Code(s): T14.8XXD - Other injury of unspecified body region, subsequent encounter (2) PAD (peripheral artery disease) Status: Chronic Current Visit: Yes Code(s): I73.9 - Peripheral vascular disease, unspecified (3) Venous insufficiency Status: Chronic Current Visit: Yes Code(s): I87.2 - Venous insufficiency (chronic) (peripheral) (4) Wound of left lower extremity Status: Chronic Current Visit: Yes Code(s): S81.802A - Unspecified open wound, left lower leg, initial encounter Comment: Post debridement/hematoma evacuation. Type of Wound Chief Complaint: Left lower extremity ulcer - Delayed healing. History of Wound: Mr. Chauhan is a 62 year old with PMH as stated above who presented here due to delayed healing of his left lower extremity wound. He denies chills, fever, nausea, vomitting or loss of appetite. He changes dressing as advised. He has 1 more day of Bactrim for treatment of MRSA. He denies ulcer or redness. Progress of Wound: Improving. No new concerns at this time. - Physical Exam Vital Signs Temp Pulse Resp BP 98.6 F 88 18 136/92 H 08/05/18 10:24 08/05/18 10:24 08/05/18 10:24 08/05/18 10:24 General: Alert, Oriented x3, Cooperative, No apparent distress HEENT: Atraumatic, Normocephalic Oral: Moist Mucosa Neck: Supple Lungs: Normal air movement Extremities: No cyanosis, Edema Skin: Ulcer/ Wound Wound Measurements and Assessment WC - Nurse 1 - General Ulcer Measurement Start: 07/22/18 09:25 Freq: Status: Active Protocol: Activity Type Activity Date Activity User E-Sign Co-Sign Detail Recorded Client Recorded Date Recorded By Document 08/05/18 10:24 [facility] [id number] 08/05/18 10:29 [facility] 08/05/18 10:24 Wound Center Nurse 1 [Ulcer Assessment] 1. L LATERAL LOWER EXTREMITY -Current Size (cm) - Length 3.8 -Current Size (cm) - Width 0.6 -Current Size (cm) - Depth 0.1 -Total Square Cm 2.28 -Epithelialization None Present -Tunneling No -Undermining/Tunneling No -Classification - Thickness Full Thickness without Exposed Support Structure -Exudate Amt Medium -Exudate Type Serosanguineous -Wound Margin Distinct, Outline Attached -Granulation Amt Medium (34-66%) -Granulation Quality Red -Slough/Fibrin Yes -Necrosis Amt Medium (34-66%) -Necrotic Tissue Type Adherent Slough -Structure Exposed None/Limited to Skin Breakdown -Texture (Kirstie-wound Skin Appearance) Assessed Localized Edema Scarring -Moisture (Kirstie-wound Skin Appearance Assessed ) -Color (Kirstie-wound Skin Appearance) Assessed Erythema -Temperature (Kirstie-wound Skin No Abnormality Appearance) (Pt Warm) -Tenderness on Palpation (Kirstie-wound No Skin Appearance) -Ulcer Cleansing Rinsed/ Irrigated with Saline -Foul Odor after Cleansing No -Anesthetic Used 4% Lidocaine Solution [Edema Assessment] -Left Calf (cm) 36.9 -Left Ankle (cm) 21.5 WC - Nurse 2 - General Ulcer CM Notes Start: 07/22/18 09:25 Freq: Status: Active Protocol: Activity Type Activity Date Activity User E-Sign Co-Sign Detail Recorded Client Recorded Date Recorded By Document 08/05/18 10:49 MW [id number] 08/05/18 11:01 MW 08/05/18 10:49 Wound Center Nurse 2 [Procedure/Treatment] 1. L LATERAL LOWER EXTREMITY -Time 10:55 -Correct Patient Yes -Correct Side, Site, Position Yes -Correct Procedure Yes -Procedure Performed Yes -Clinical Debridement Subcutaneous -Post Debridement Size (cm) - Length 3.4 -Post Debridement Size (cm) - Width 0.6 -Post Debridement Size (cm) - Depth 0.1 -Total Square Cm 2.04 -Wound/Ulcer Outcome Not Healed -Ulcer Cleansing Rinsed/ Irrigated with Saline -Foul Odor after Cleansing No -Bioengineered Tissue Yes -Type of bioengineered Tissue GRAFIX-Pime -Expiration Date 06/14/19 -Product Lot Number [id number] -Percent Used 100 -Saline Lot Number [id number] -Bleeding Controlled with Pressure -Offloading No -Treatment Response Procedure Tolerated Well [See Physician Procedure note for Specifics] Pain Scale: 0-10 Numeric [Pain] -Is Patient Pain Free? Yes Musculoskeletal: No Muscle Wasting Neurological: Cranial nerves II-XII grossly intact Psych/Mental Status: Normal Affect Debridement Note Post-Debridement Measurements/Treatment WC - Nurse 2 - General Ulcer CM Notes Start: 07/22/18 09:25 Freq: Status: Active Protocol: Activity Type Activity Date Activity User E-Sign Co-Sign Detail Recorded Client Recorded Date Recorded By Document 07/22/18 10:34 MW [id number] 07/22/18 10:42 MW Document 07/29/18 09:54 MW [id number] 07/29/18 10:02 MW Document 08/05/18 10:49 MW [id number] 08/05/18 11:01 MW 07/22/18 07/29/18 08/05/18 10:34 09:54 10:49 Wound Center Nurse 2 1. L LATERAL LOWER EXTREMITY -Time 10:35 09:55 10:55 -Correct Patient Yes Yes Yes -Correct Side, Site, Position Yes Yes Yes -Correct Procedure Yes Yes Yes -Procedure Performed Yes Yes Yes -Type of Procedure Debridement Debridement -Clinical Debridement Subcutaneous Subcutaneous Subcutaneous -Post Debridement Size (cm) - Length 4.0 3.7 3.4 -Post Debridement Size (cm) - Width 0.8 0.7 0.6 -Post Debridement Size (cm) - Depth 0.1 0.1 0.1 -Total Square Cm 3.20 2.59 2.04 -Wound/Ulcer Outcome Not Healed Not Healed Not Healed -Ulcer Cleansing Rinsed/ Rinsed/ Rinsed/ Irrigated with Irrigated with Irrigated with Saline Saline Saline -Foul Odor after Cleansing No Yes No -Bioengineered Tissue Yes No Yes -Type of bioengineered Tissue GRAFIX-Pime GRAFIX-Pime GRAFIX-Pime -Expiration Date 05/29/19 06/02/19 06/14/19 -Product Lot Number [id number] -Percent Used 100 100 100 -Saline Lot Number [id number] -Bleeding Controlled with Pressure Pressure Pressure -Other SALINE LOT# [id number] -Offloading No No No -Treatment Response Procedure Procedure Procedure Tolerated Well Tolerated Well Tolerated Well Pain Scale: 0-10 Numeric Is Patient Pain Free? Yes Yes Yes Wound debrided: Left lower extremity Wound Grade/Stage: Stage III Type of Debridement: Excisional debridement Anesthesia Used: 4% Lidocaine Solution Depth: Down to and including healthy tissue, in the subcutaneous layer Percentage of wound debrided: 100 Instrument Used: 3mm curette Tissue Removed: Devitalized tissue and slough Severity: Fat Layer Exposed Amount of bleeding with debridement: Mild Bleeding Controlled with: Pressure Patient tolerated procedure well Assessment/Plan Active Problems Wound of left lower extremity (Chronic) Post debridement/hematoma evacuation. PAD (peripheral artery disease) (Chronic) Venous insufficiency (Chronic) Delayed wound healing (Chronic) Assessment: Left lower extremity ulcer post I and D with delayed healing. Peripheral arterial disease. Delayed healing. Lower extremity with venous insufficiency. Arterial calcification Plan: Slowly improving. Debridement done as documented above, procedure was well tolerated. 7th application of Grafix Mimedix done today using 100% of prouct. Moistened with saline and Adaptic over top. Leave on for a week. Continue increased protein intake. Elevate lower extremity when sitted and in bed. 3M wrap for edema management. Cultures taken due to some periwound maceration/concern. Advised to call with any questions or concerns. Follow up in 1 week. This note was generated with [employer] dictation software. It may contain incorrect words, spelling, and punctuation that were not noted in checking the note before signing.
[2018-08-12 09:58] VITALS: BP 130/78; PULSE 81; RESP 18; TEMP 36.2; BMI 42.2
--- NOTE | 2018-08-12 10:51 | PCM.WC.PN ---
(1) Delayed wound healing Status: Chronic Current Visit: Yes Code(s): T14.8XXD - Other injury of unspecified body region, subsequent encounter (2) PAD (peripheral artery disease) Status: Chronic Current Visit: Yes Code(s): I73.9 - Peripheral vascular disease, unspecified (3) Venous insufficiency Status: Chronic Current Visit: Yes Code(s): I87.2 - Venous insufficiency (chronic) (peripheral) (4) Wound of left lower extremity Status: Chronic Current Visit: Yes Code(s): S81.802A - Unspecified open wound, left lower leg, initial encounter Comment: Post debridement/hematoma evacuation. Type of Wound Chief Complaint: Left lower extremity ulcer - Delayed healing. History of Wound: Mr. Chauhan is a 62 year old with PMH as stated above who presented here due to delayed healing of his left lower extremity wound. He denies chills, fever, nausea, vomitting or loss of appetite. He changes dressing as advised. He has 1 more day of Bactrim for treatment of MRSA. He denies ulcer or redness. Progress of Wound: Stable. No new concerns at this time. - Physical Exam Vital Signs Temp Pulse Resp BP 97.1 F L 81 18 130/78 H 08/12/18 09:58 08/12/18 09:58 08/12/18 09:58 08/12/18 09:58 General: Alert, Oriented x3, Cooperative, No apparent distress HEENT: Atraumatic, Normocephalic Oral: Moist Mucosa Neck: Supple Lungs: Normal air movement Abdomen: Non Tender, Obese Extremities: No cyanosis, Edema Skin: Ulcer/ Wound Wound Measurements and Assessment WC - Nurse 1 - General Ulcer Measurement Start: 07/22/18 09:25 Freq: Status: Active Protocol: Activity Type Activity Date Activity User E-Sign Co-Sign Detail Recorded Client Recorded Date Recorded By Document 08/12/18 09:58 DV [id number] 08/12/18 10:02 DV 08/12/18 09:58 Wound Center Nurse 1 [Ulcer Assessment] 1. L LATERAL LOWER EXTREMITY -Combined with other wound No -Current Size (cm) - Length 4.4 -Current Size (cm) - Width 1.0 -Current Size (cm) - Depth 0.1 -Total Square Cm 4.40 -Date of Last Picture (Recall this 08/12/18 field) -Photo Taken Yes -Epithelialization Small 1-33% -Tunneling No -Undermining/Tunneling No -Circular Undermining No -Exudate Amt Small -Exudate Type Serosanguineous -Wound Margin Flat & Intact -Granulation Amt Small (1-33%) -Granulation Quality Pale Red -Slough/Fibrin Yes -Necrosis Amt Medium (34-66%) -Necrotic Tissue Type Adherent Slough -Structure Exposed None/Limited to Skin Breakdown -Texture (Kirstie-wound Skin Appearance) Assessed Scarring -Moisture (Kirstie-wound Skin Appearance Assessed ) Weeping -Color (Kirstie-wound Skin Appearance) Assessed Erythema -Temperature (Kirstie-wound Skin No Abnormality Appearance) (Pt Warm) -Tenderness on Palpation (Kirstie-wound No Skin Appearance) -Ulcer Cleansing soap -Foul Odor after Cleansing No -Anesthetic Used 4% Lidocaine Solution [Edema Assessment] -Left Calf (cm) 39.0 -Left Ankle (cm) 27.2 WC - Nurse 2 - General Ulcer CM Notes Start: 07/22/18 09:25 Freq: Status: Active Protocol: Activity Type Activity Date Activity User E-Sign Co-Sign Detail Recorded Client Recorded Date Recorded By Document 08/12/18 10:25 MW [id number] 08/12/18 10:29 MW 08/12/18 10:25 Wound Center Nurse 2 [Procedure/Treatment] 1. L LATERAL LOWER EXTREMITY -Time 10:26 -Correct Patient Yes -Correct Side, Site, Position Yes -Correct Procedure Yes -Procedure Performed Yes -Type of Procedure Debridement -Clinical Debridement Subcutaneous -Post Debridement Size (cm) - Length 4.0 -Post Debridement Size (cm) - Width 0.5 -Post Debridement Size (cm) - Depth 0.1 -Total Square Cm 2.00 -Wound/Ulcer Outcome Not Healed -Ulcer Cleansing Rinsed/ Irrigated with Saline -Foul Odor after Cleansing No -Bioengineered Tissue No -Bleeding Controlled with Pressure -Offloading No -Treatment Response Procedure Tolerated Well [See Physician Procedure note for Specifics] Pain Scale: 0-10 Numeric [Pain] -Is Patient Pain Free? Yes Musculoskeletal: No Muscle Wasting Neurological: Cranial nerves II-XII grossly intact Psych/Mental Status: Normal Affect Debridement Note Post-Debridement Measurements/Treatment WC - Nurse 2 - General Ulcer CM Notes Start: 07/22/18 09:25 Freq: Status: Active Protocol: Activity Type Activity Date Activity User E-Sign Co-Sign Detail Recorded Client Recorded Date Recorded By Document 07/22/18 10:34 MW [id number] 07/22/18 10:42 MW Document 07/29/18 09:54 MW [id number] 07/29/18 10:02 MW Document 08/05/18 10:49 MW [id number] 08/05/18 11:01 MW Document 08/12/18 10:25 MW [id number] 08/12/18 10:29 MW 07/22/18 07/29/18 08/05/18 10:34 09:54 10:49 Wound Center Nurse 2 1. L LATERAL LOWER EXTREMITY -Time 10:35 09:55 10:55 -Correct Patient Yes Yes Yes -Correct Side, Site, Position Yes Yes Yes -Correct Procedure Yes Yes Yes -Procedure Performed Yes Yes Yes -Type of Procedure Debridement Debridement -Clinical Debridement Subcutaneous Subcutaneous Subcutaneous -Post Debridement Size (cm) - Length 4.0 3.7 3.4 -Post Debridement Size (cm) - Width 0.8 0.7 0.6 -Post Debridement Size (cm) - Depth 0.1 0.1 0.1 -Total Square Cm 3.20 2.59 2.04 -Wound/Ulcer Outcome Not Healed Not Healed Not Healed -Ulcer Cleansing Rinsed/ Rinsed/ Rinsed/ Irrigated with Irrigated with Irrigated with Saline Saline Saline -Foul Odor after Cleansing No Yes No -Bioengineered Tissue Yes No Yes -Type of bioengineered Tissue GRAFIX-Pime GRAFIX-Pime GRAFIX-Pime -Expiration Date 05/29/19 06/02/19 06/14/19 -Product Lot Number [id number] -Percent Used 100 100 100 -Saline Lot Number [id number] -Bleeding Controlled with Pressure Pressure Pressure -Other SALINE LOT# [id number] -Offloading No No No -Treatment Response Procedure Procedure Procedure Tolerated Well Tolerated Well Tolerated Well Pain Scale: 0-10 Numeric Is Patient Pain Free? Yes Yes Yes 08/12/18 10:25 Wound Center Nurse 2 1. L LATERAL LOWER EXTREMITY -Time 10:26 -Correct Patient Yes -Correct Side, Site, Position Yes -Correct Procedure Yes -Procedure Performed Yes -Type of Procedure Debridement -Clinical Debridement Subcutaneous -Post Debridement Size (cm) - Length 4.0 -Post Debridement Size (cm) - Width 0.5 -Post Debridement Size (cm) - Depth 0.1 -Total Square Cm 2.00 -Wound/Ulcer Outcome Not Healed -Ulcer Cleansing Rinsed/ Irrigated with Saline -Foul Odor after Cleansing No -Bioengineered Tissue No -Type of bioengineered Tissue -Expiration Date -Product Lot Number -Percent Used -Saline Lot Number -Bleeding Controlled with Pressure -Other -Offloading No -Treatment Response Procedure Tolerated Well Pain Scale: 0-10 Numeric Is Patient Pain Free? Yes Wound debrided: Lower extremity Wound Grade/Stage: Stage III Type of Debridement: Excisional debridement Anesthesia Used: 4% Lidocaine Solution Depth: Down to and including healthy tissue, in the subcutaneous layer Percentage of wound debrided: 100 Instrument Used: 3mm curette Tissue Removed: Slough and devitalized tissue Severity: Fat Layer Exposed Amount of bleeding with debridement: Mild Bleeding Controlled with: Pressure Patient tolerated procedure well Assessment/Plan Active Problems Wound of left lower extremity (Chronic) Post debridement/hematoma evacuation. PAD (peripheral artery disease) (Chronic) Venous insufficiency (Chronic) Delayed wound healing (Chronic) Assessment: Left lower extremity ulcer post I and D with delayed healing. Peripheral arterial disease. Delayed healing. Lower extremity with venous insufficiency. Arterial calcification Plan: Mild worsening noted this week. Debridement done as documented above, procedure was well tolerated. Grafix Mimedix not available this week. Not applied. Switch to Promogran with Adaptic over top. Change daily. Double layer Tubigrip for edema management. Continue increased protein intake. Elevate lower extremity when sitted and in bed. Cultures taken last week with no growth. Advised to call with any questions or concerns. Follow up in 1 week. This note was generated with [employer] software. It may contain incorrect words, spelling, and punctuation that were not noted in checking the note before signing.
--- NOTE | 2018-08-12 10:54 | PN.PCM_ITS ---
(1) Delayed wound healing Status: Chronic Current Visit: Yes Code(s): T14.8XXD - Other injury of unspecified body region, subsequent encounter (2) PAD (peripheral artery disease) Status: Chronic Current Visit: Yes Code(s): I73.9 - Peripheral vascular disease, unspecified (3) Venous insufficiency Status: Chronic Current Visit: Yes Code(s): I87.2 - Venous insufficiency (chronic) (peripheral) (4) Wound of left lower extremity Status: Chronic Current Visit: Yes Code(s): S81.802A - Unspecified open wound, left lower leg, initial encounter Comment: Post debridement/hematoma evacuation. Type of Wound Chief Complaint: Left lower extremity ulcer - Delayed healing. History of Wound: Mr. Chauhan is a 62 year old with PMH as stated above who presented here due to delayed healing of his left lower extremity wound. He denies chills, fever, nausea, vomitting or loss of appetite. He changes dressing as advised. He has 1 more day of Bactrim for treatment of MRSA. He denies ulcer or redness. Progress of Wound: Stable. No new concerns at this time. - Physical Exam Vital Signs Temp Pulse Resp BP 97.1 F L 81 18 130/78 H 08/12/18 09:58 08/12/18 09:58 08/12/18 09:58 08/12/18 09:58 General: Alert, Oriented x3, Cooperative, No apparent distress HEENT: Atraumatic, Normocephalic Oral: Moist Mucosa Neck: Supple Lungs: Normal air movement Abdomen: Non Tender, Obese Extremities: No cyanosis, Edema Skin: Ulcer/ Wound Wound Measurements and Assessment WC - Nurse 1 - General Ulcer Measurement Start: 07/22/18 09:25 Freq: Status: Active Protocol: Activity Type Activity Date Activity User E-Sign Co-Sign Detail Recorded Client Recorded Date Recorded By Document 08/12/18 09:58 DV [id number] 08/12/18 10:02 DV 08/12/18 09:58 Wound Center Nurse 1 [Ulcer Assessment] 1. L LATERAL LOWER EXTREMITY -Combined with other wound No -Current Size (cm) - Length 4.4 -Current Size (cm) - Width 1.0 -Current Size (cm) - Depth 0.1 -Total Square Cm 4.40 -Date of Last Picture (Recall this 08/12/18 field) -Photo Taken Yes -Epithelialization Small 1-33% -Tunneling No -Undermining/Tunneling No -Circular Undermining No -Exudate Amt Small -Exudate Type Serosanguineous -Wound Margin Flat & Intact -Granulation Amt Small (1-33%) -Granulation Quality Pale Red -Slough/Fibrin Yes -Necrosis Amt Medium (34-66%) -Necrotic Tissue Type Adherent Slough -Structure Exposed None/Limited to Skin Breakdown -Texture (Kirstie-wound Skin Appearance) Assessed Scarring -Moisture (Kirstie-wound Skin Appearance Assessed ) Weeping -Color (Kirstie-wound Skin Appearance) Assessed Erythema -Temperature (Kirstie-wound Skin No Abnormality Appearance) (Pt Warm) -Tenderness on Palpation (Kirstie-wound No Skin Appearance) -Ulcer Cleansing soap -Foul Odor after Cleansing No -Anesthetic Used 4% Lidocaine Solution [Edema Assessment] -Left Calf (cm) 39.0 -Left Ankle (cm) 27.2 WC - Nurse 2 - General Ulcer CM Notes Start: 07/22/18 09:25 Freq: Status: Active Protocol: Activity Type Activity Date Activity User E-Sign Co-Sign Detail Recorded Client Recorded Date Recorded By Document 08/12/18 10:25 MW [id number] 08/12/18 10:29 MW 08/12/18 10:25 Wound Center Nurse 2 [Procedure/Treatment] 1. L LATERAL LOWER EXTREMITY -Time 10:26 -Correct Patient Yes -Correct Side, Site, Position Yes -Correct Procedure Yes -Procedure Performed Yes -Type of Procedure Debridement -Clinical Debridement Subcutaneous -Post Debridement Size (cm) - Length 4.0 -Post Debridement Size (cm) - Width 0.5 -Post Debridement Size (cm) - Depth 0.1 -Total Square Cm 2.00 -Wound/Ulcer Outcome Not Healed -Ulcer Cleansing Rinsed/ Irrigated with Saline -Foul Odor after Cleansing No -Bioengineered Tissue No -Bleeding Controlled with Pressure -Offloading No -Treatment Response Procedure Tolerated Well [See Physician Procedure note for Specifics] Pain Scale: 0-10 Numeric [Pain] -Is Patient Pain Free? Yes Musculoskeletal: No Muscle Wasting Neurological: Cranial nerves II-XII grossly intact Psych/Mental Status: Normal Affect Debridement Note Post-Debridement Measurements/Treatment WC - Nurse 2 - General Ulcer CM Notes Start: 07/22/18 09:25 Freq: Status: Active Protocol: Activity Type Activity Date Activity User E-Sign Co-Sign Detail Recorded Client Recorded Date Recorded By Document 07/22/18 10:34 MW [id number] 07/22/18 10:42 MW Document 07/29/18 09:54 MW [id number] 07/29/18 10:02 MW Document 08/05/18 10:49 MW [id number] 08/05/18 11:01 MW Document 08/12/18 10:25 MW [id number] 08/12/18 10:29 MW 07/22/18 07/29/18 08/05/18 10:34 09:54 10:49 Wound Center Nurse 2 1. L LATERAL LOWER EXTREMITY -Time 10:35 09:55 10:55 -Correct Patient Yes Yes Yes -Correct Side, Site, Position Yes Yes Yes -Correct Procedure Yes Yes Yes -Procedure Performed Yes Yes Yes -Type of Procedure Debridement Debridement -Clinical Debridement Subcutaneous Subcutaneous Subcutaneous -Post Debridement Size (cm) - Length 4.0 3.7 3.4 -Post Debridement Size (cm) - Width 0.8 0.7 0.6 -Post Debridement Size (cm) - Depth 0.1 0.1 0.1 -Total Square Cm 3.20 2.59 2.04 -Wound/Ulcer Outcome Not Healed Not Healed Not Healed -Ulcer Cleansing Rinsed/ Rinsed/ Rinsed/ Irrigated with Irrigated with Irrigated with Saline Saline Saline -Foul Odor after Cleansing No Yes No -Bioengineered Tissue Yes No Yes -Type of bioengineered Tissue GRAFIX-Pime GRAFIX-Pime GRAFIX-Pime -Expiration Date 05/29/19 06/02/19 06/14/19 -Product Lot Number [id number] -Percent Used 100 100 100 -Saline Lot Number [id number] -Bleeding Controlled with Pressure Pressure Pressure -Other SALINE LOT# [id number] -Offloading No No No -Treatment Response Procedure Procedure Procedure Tolerated Well Tolerated Well Tolerated Well Pain Scale: 0-10 Numeric Is Patient Pain Free? Yes Yes Yes 08/12/18 10:25 Wound Center Nurse 2 1. L LATERAL LOWER EXTREMITY -Time 10:26 -Correct Patient Yes -Correct Side, Site, Position Yes -Correct Procedure Yes -Procedure Performed Yes -Type of Procedure Debridement -Clinical Debridement Subcutaneous -Post Debridement Size (cm) - Length 4.0 -Post Debridement Size (cm) - Width 0.5 -Post Debridement Size (cm) - Depth 0.1 -Total Square Cm 2.00 -Wound/Ulcer Outcome Not Healed -Ulcer Cleansing Rinsed/ Irrigated with Saline -Foul Odor after Cleansing No -Bioengineered Tissue No -Type of bioengineered Tissue -Expiration Date -Product Lot Number -Percent Used -Saline Lot Number -Bleeding Controlled with Pressure -Other -Offloading No -Treatment Response Procedure Tolerated Well Pain Scale: 0-10 Numeric Is Patient Pain Free? Yes Wound debrided: Lower extremity Wound Grade/Stage: Stage III Type of Debridement: Excisional debridement Anesthesia Used: 4% Lidocaine Solution Depth: Down to and including healthy tissue, in the subcutaneous layer Percentage of wound debrided: 100 Instrument Used: 3mm curette Tissue Removed: Slough and devitalized tissue Severity: Fat Layer Exposed Amount of bleeding with debridement: Mild Bleeding Controlled with: Pressure Patient tolerated procedure well Assessment/Plan Active Problems Wound of left lower extremity (Chronic) Post debridement/hematoma evacuation. PAD (peripheral artery disease) (Chronic) Venous insufficiency (Chronic) Delayed wound healing (Chronic) Assessment: Left lower extremity ulcer post I and D with delayed healing. Peripheral arterial disease. Delayed healing. Lower extremity with venous insufficiency. Arterial calcification Plan: Mild worsening noted this week. Debridement done as documented above, procedure was well tolerated. Grafix Mimedix not available this week. Not applied. Switch to Promogran with Adaptic over top. Change daily. Double layer Tubigrip for edema management. Continue increased protein intake. Elevate lower extremity when sitted and in bed. Cultures taken last week with no growth. Advised to call with any questions or concerns. Follow up in 1 week. This note was generated with [employer] software. It may contain incorrect words, spelling, and punctuation that were not noted in checking the note before signing.
== END 2018-08-13 23:59 ==
LOC: WC 09:30
PROVIDERS: Family Provider Family Medicine; PCP Family Medicine; Visit Provider Internal Medicine
DX: I73.9 Peripheral vascular disease, unspecified (principal); I87.2 Venous insufficiency (chronic) (peripheral); R60.0 Localized edema; L97.822 Non-pressure chronic ulcer of other part of left lower leg with fat layer exposed
CPT/HCPCS: 11042; 15271; 29581; Q4133

== ENCOUNTER → 2018-08-21 09:55 | Outpatient (CLI) | payer OTHER, SELFPAY ==
[2018-08-21 09:27] VITALS: BMI 42.2
[2018-08-21 11:33] LABS: PTHIN 63.5 pg/mL (18.4-80.1)
[2018-08-21 11:41] LABS: ALB/GLOB Ratio 0.9 RATIO (0.9-2.4); AST(SGOT) 20 U/L (15-37); Alanine Aminotransfer ALT/SGPT 27 U/L (16-61); Albumin, Serum 3.4 g/dL (3.2-5.0); Alkaline Phosphatase 121 U/L (45-117); Anion Gap 9 (5-15); BUN 11 mg/dL (7-18); BUN/Creat Ratio 8.4 RATIO (10-20); Chloride 101 mmol/L (98-107); Cholesterol 107 mg/dL (200); Creatinine, Serum 1.31 mg/dL (0.70-1.30); EST Glomerular Filtration Rate 59 mL/min (>60); Est Glom Filt Rate - Afr Amer 71 mL/min (>60); Globulin 3.8 g/dL (2.2-4.2); Glucose 88 mg/dL (74-106); High Density Lipoprotein 76 mg/dL; Potassium 4.2 mmol/L (3.5-5.1); Protein, Total 7.2 g/dL (6.4-8.2); Sodium Level 138 mmol/L (136-145); Thyroid Stim Hormone (TSH) 6.24 uIU/mL (0.358-3.74); Triglycerides 44 mg/dL; Very Low Density Lipoprotein 9 mg/dL (5-40)
== END ==
PROVIDERS: Family Provider Family Medicine; PCP Family Medicine; Referring Provider Internal Medicine Endocrinology, Diabetes & Metabolism; Visit Provider Internal Medicine Endocrinology, Diabetes & Metabolism
DX: E89.0 Postprocedural hypothyroidism (principal); E21.1 Secondary hyperparathyroidism, not elsewhere classified; E55.9 Vitamin D deficiency, unspecified; E78.2 Mixed hyperlipidemia
CPT/HCPCS: 36415; 80053; 80061; 82306; 83970; 84443

== ENCOUNTER 2018-09-09 09:30 | Outpatient (RCR) | payer OTHER, SELFPAY ==
[2018-08-14 00:56] VITALS: BP 130/78; PULSE 81; RESP 18; TEMP 36.2
[2018-08-19 09:32] VITALS: BP 151/91; PULSE 91; RESP 18; TEMP 37.1; BMI 42.2
[2018-08-21 09:27] VITALS: BP 132/65; PULSE 92; RESP 18; TEMP 37.1; BMI 42.2
[2018-08-26 10:00] VITALS: BP 128/90; PULSE 81; RESP 18; TEMP 36; BMI 42.2
--- NOTE | 2018-08-26 10:50 | PCM.WC.PN ---
(1) Delayed wound healing Status: Chronic Current Visit: Yes Code(s): T14.8XXD - Other injury of unspecified body region, subsequent encounter (2) PAD (peripheral artery disease) Status: Chronic Current Visit: Yes Code(s): I73.9 - Peripheral vascular disease, unspecified (3) Venous insufficiency Status: Chronic Current Visit: Yes Code(s): I87.2 - Venous insufficiency (chronic) (peripheral) (4) Wound of left lower extremity Status: Chronic Current Visit: Yes Code(s): S81.802A - Unspecified open wound, left lower leg, initial encounter Comment: Post debridement/hematoma evacuation. Type of Wound Chief Complaint: Left lower extremity ulcer - Delayed healing. History of Wound: Mr. Chauhan is a 62 year old with PMH as stated above who presented here due to delayed healing of his left lower extremity wound. He denies chills, fever, nausea, vomitting or loss of appetite. He changes dressing as advised. He has 1 more day of Bactrim for treatment of MRSA. He denies ulcer or redness. Progress of Wound: He has no new concerns today. Tolerated the 3M wraps. Denies increased drainage. - Physical Exam Vital Signs Temp Pulse Resp BP 96.8 F L 81 18 128/90 H 08/26/18 10:00 08/26/18 10:00 08/26/18 10:00 08/26/18 10:00 General: Alert, Oriented x3, Cooperative, No apparent distress HEENT: Atraumatic, Normocephalic Oral: Moist Mucosa Neck: Supple Lungs: Normal air movement Abdomen: Non Tender, Obese Extremities: No cyanosis, Edema Skin: Ulcer/ Wound Wound Measurements and Assessment WC - Nurse 1 - General Ulcer Measurement Start: 08/19/18 09:32 Freq: Status: Active Protocol: Activity Type Activity Date Activity User E-Sign Co-Sign Detail Recorded Client Recorded Date Recorded By Document 08/26/18 10:00 DV [id number] 08/26/18 10:11 DV 08/26/18 10:00 Wound Center Nurse 1 [Ulcer Assessment] 1. L LATERAL LOWER EXTREMITY -Combined with other wound No -Current Size (cm) - Length 9.5 -Current Size (cm) - Width 1.5 -Current Size (cm) - Depth 0.2 -Total Square Cm 14.25 -Photo Taken No -Epithelialization None Present -Tunneling No -Undermining/Tunneling No -Circular Undermining No -Classification - Thickness Full Thickness without Exposed Support Structure -Exudate Amt Large -Exudate Type Yellow/Green -Wound Margin Flat & Intact -Granulation Amt None Present (0 %) -Granulation Quality N/A -Slough/Fibrin Yes -Necrosis Amt Large (67-100%) -Necrotic Tissue Type Adherent Slough -Structure Exposed None/Limited to Skin Breakdown -Texture (Kirstie-wound Skin Appearance) Assessed -Moisture (Kirstie-wound Skin Appearance Assessed ) -Color (Kristie-wound Skin Appearance) Assessed -Temperature (Kirstie-wound Skin No Abnormality Appearance) (Pt Warm) -Tenderness on Palpation (Kirstie-wound Yes Skin Appearance) -Ulcer Cleansing soap -Foul Odor after Cleansing Yes -Anesthetic Used 5% Lidocaine Gel [Edema Assessment] -Lower Limb Edema Present Yes -Left Calf (cm) 36.6 -Left Ankle (cm) 23.0 WC - Nurse 2 - General Ulcer CM Notes Start: 08/19/18 09:32 Freq: Status: Active Protocol: Activity Type Activity Date Activity User E-Sign Co-Sign Detail Recorded Client Recorded Date Recorded By Document 08/26/18 10:19 MW [id number] 08/26/18 10:25 MW 08/26/18 10:19 Wound Center Nurse 2 [Procedure/Treatment] 1. L LATERAL LOWER EXTREMITY -Time 10:20 -Correct Patient Yes -Correct Side, Site, Position Yes -Correct Procedure Yes -Procedure Performed Yes -Type of Procedure Debridement -Clinical Debridement Subcutaneous -Post Debridement Size (cm) - Length 8.2 -Post Debridement Size (cm) - Width 1.5 -Post Debridement Size (cm) - Depth 0.1 -Total Square Cm 12.30 -Wound/Ulcer Outcome Not Healed -Ulcer Cleansing Rinsed/ Irrigated with Saline -Foul Odor after Cleansing No -Bioengineered Tissue No -Bleeding Controlled with Pressure -Offloading No -Treatment Response Procedure Tolerated Well [See Physician Procedure note for Specifics] Pain Scale: 0-10 Numeric [Pain] -Is Patient Pain Free? Yes Musculoskeletal: No Muscle Wasting Neurological: Cranial nerves II-XII grossly intact Psych/Mental Status: Normal Affect Debridement Note Post-Debridement Measurements/Treatment WC - Nurse 2 - General Ulcer CM Notes Start: 08/19/18 09:32 Freq: Status: Active Protocol: Activity Type Activity Date Activity User E-Sign Co-Sign Detail Recorded Client Recorded Date Recorded By Document 08/19/18 09:52 MW [id number] 08/19/18 10:01 MW Document 08/26/18 10:19 MW [id number] 08/26/18 10:25 MW 08/19/18 08/26/18 09:52 10:19 Wound Center Nurse 2 1. L LATERAL LOWER EXTREMITY -Time 09:53 10:20 -Correct Patient Yes Yes -Correct Side, Site, Position Yes Yes -Correct Procedure Yes Yes -Procedure Performed Yes Yes -Type of Procedure Debridement Debridement -Clinical Debridement Subcutaneous Subcutaneous -Post Debridement Size (cm) - Length 4.4 8.2 -Post Debridement Size (cm) - Width 0.7 1.5 -Post Debridement Size (cm) - Depth 0.1 0.1 -Total Square Cm 3.08 12.30 -Wound/Ulcer Outcome Not Healed Not Healed -Ulcer Cleansing Rinsed/ Rinsed/ Irrigated with Irrigated with Saline Saline -Foul Odor after Cleansing No No -Bioengineered Tissue Yes No -Type of bioengineered Tissue GRAFIX-Pime -Expiration Date 06/30/19 -Product Lot Number [id number] -Percent Used 100 -Saline Lot Number [id number] -Bleeding Controlled with Pressure Pressure -Offloading No No -Treatment Response Procedure Procedure Tolerated Well Tolerated Well Pain Scale: 0-10 Numeric Is Patient Pain Free? Yes Yes Wound debrided: Left lower extremity Wound Grade/Stage: Stage III Type of Debridement: Excisional debridement Anesthesia Used: 4% Lidocaine Solution Depth: Down to and including healthy tissue, in the subcutaneous layer Percentage of wound debrided: 100 Instrument Used: 5mm curette Tissue Removed: Slough and devitalized tissue Severity: Fat Layer Exposed Amount of bleeding with debridement: Mild Bleeding Controlled with: Pressure Patient tolerated procedure well Assessment/Plan Active Problems Wound of left lower extremity (Chronic) Post debridement/hematoma evacuation. PAD (peripheral artery disease) (Chronic) Venous insufficiency (Chronic) Delayed wound healing (Chronic) Assessment: Left lower extremity ulcer post I and D with delayed healing. Peripheral arterial disease. Delayed healing. Lower extremity with venous insufficiency. Arterial calcification Plan: Significantly worsened in the last week. Due to maceration he had a break from Grafix Mimedix 2 weeks ago. Continues to Promogran with Adaptic. Maceration improved and cultures were negative. The Grafix Mimedix was reapplied last week. Patient denies pain, increased discharge or discomfort. However wound has doubled in size. Also sloughing noted. Debridement done as documented above, procedure was well-tolerated. Cultures taken. We will go back to [facility] with [facility]. Leave in place until Friday. 3M wraps for edema management. Change on Friday. Increased protein intake again recommended. Elevate lower extremities when seated and in bed. His questions were answered and he was advised to call with any further questions or concerns. Follow-up in 1 week. Advised to call with any questions or concerns. Follow up in 1 week. This note was generated with [employer] dictation software. It may contain incorrect words, spelling, and punctuation that were not noted in checking the note before signing.
--- NOTE | 2018-08-26 10:55 | PN.PCM_ITS ---
(1) Delayed wound healing Status: Chronic Current Visit: Yes Code(s): T14.8XXD - Other injury of unspecified body region, subsequent encounter (2) PAD (peripheral artery disease) Status: Chronic Current Visit: Yes Code(s): I73.9 - Peripheral vascular disease, unspecified (3) Venous insufficiency Status: Chronic Current Visit: Yes Code(s): I87.2 - Venous insufficiency (chronic) (peripheral) (4) Wound of left lower extremity Status: Chronic Current Visit: Yes Code(s): S81.802A - Unspecified open wound, left lower leg, initial encounter Comment: Post debridement/hematoma evacuation. Type of Wound Chief Complaint: Left lower extremity ulcer - Delayed healing. History of Wound: Mr. Chauhan is a 62 year old with PMH as stated above who presented here due to delayed healing of his left lower extremity wound. He denies chills, fever, nausea, vomitting or loss of appetite. He changes dressing as advised. He has 1 more day of Bactrim for treatment of MRSA. He denies ulcer or redness. Progress of Wound: He has no new concerns today. Tolerated the 3M wraps. Denies increased drainage. - Physical Exam Vital Signs Temp Pulse Resp BP 96.8 F L 81 18 128/90 H 08/26/18 10:00 08/26/18 10:00 08/26/18 10:00 08/26/18 10:00 General: Alert, Oriented x3, Cooperative, No apparent distress HEENT: Atraumatic, Normocephalic Oral: Moist Mucosa Neck: Supple Lungs: Normal air movement Abdomen: Non Tender, Obese Extremities: No cyanosis, Edema Skin: Ulcer/ Wound Wound Measurements and Assessment WC - Nurse 1 - General Ulcer Measurement Start: 08/19/18 09:32 Freq: Status: Active Protocol: Activity Type Activity Date Activity User E-Sign Co-Sign Detail Recorded Client Recorded Date Recorded By Document 08/26/18 10:00 DV [id number] 08/26/18 10:11 DV 08/26/18 10:00 Wound Center Nurse 1 [Ulcer Assessment] 1. L LATERAL LOWER EXTREMITY -Combined with other wound No -Current Size (cm) - Length 9.5 -Current Size (cm) - Width 1.5 -Current Size (cm) - Depth 0.2 -Total Square Cm 14.25 -Photo Taken No -Epithelialization None Present -Tunneling No -Undermining/Tunneling No -Circular Undermining No -Classification - Thickness Full Thickness without Exposed Support Structure -Exudate Amt Large -Exudate Type Yellow/Green -Wound Margin Flat & Intact -Granulation Amt None Present (0 %) -Granulation Quality N/A -Slough/Fibrin Yes -Necrosis Amt Large (67-100%) -Necrotic Tissue Type Adherent Slough -Structure Exposed None/Limited to Skin Breakdown -Texture (Kirstie-wound Skin Appearance) Assessed -Moisture (Kirstie-wound Skin Appearance Assessed ) -Color (Kirstie-wound Skin Appearance) Assessed -Temperature (Kirstie-wound Skin No Abnormality Appearance) (Pt Warm) -Tenderness on Palpation (Kirstie-wound Yes Skin Appearance) -Ulcer Cleansing soap -Foul Odor after Cleansing Yes -Anesthetic Used 5% Lidocaine Gel [Edema Assessment] -Lower Limb Edema Present Yes -Left Calf (cm) 36.6 -Left Ankle (cm) 23.0 WC - Nurse 2 - General Ulcer CM Notes Start: 08/19/18 09:32 Freq: Status: Active Protocol: Activity Type Activity Date Activity User E-Sign Co-Sign Detail Recorded Client Recorded Date Recorded By Document 08/26/18 10:19 MW [id number] 08/26/18 10:25 MW 08/26/18 10:19 Wound Center Nurse 2 [Procedure/Treatment] 1. L LATERAL LOWER EXTREMITY -Time 10:20 -Correct Patient Yes -Correct Side, Site, Position Yes -Correct Procedure Yes -Procedure Performed Yes -Type of Procedure Debridement -Clinical Debridement Subcutaneous -Post Debridement Size (cm) - Length 8.2 -Post Debridement Size (cm) - Width 1.5 -Post Debridement Size (cm) - Depth 0.1 -Total Square Cm 12.30 -Wound/Ulcer Outcome Not Healed -Ulcer Cleansing Rinsed/ Irrigated with Saline -Foul Odor after Cleansing No -Bioengineered Tissue No -Bleeding Controlled with Pressure -Offloading No -Treatment Response Procedure Tolerated Well [See Physician Procedure note for Specifics] Pain Scale: 0-10 Numeric [Pain] -Is Patient Pain Free? Yes Musculoskeletal: No Muscle Wasting Neurological: Cranial nerves II-XII grossly intact Psych/Mental Status: Normal Affect Debridement Note Post-Debridement Measurements/Treatment WC - Nurse 2 - General Ulcer CM Notes Start: 08/19/18 09:32 Freq: Status: Active Protocol: Activity Type Activity Date Activity User E-Sign Co-Sign Detail Recorded Client Recorded Date Recorded By Document 08/19/18 09:52 MW [id number] 08/19/18 10:01 MW Document 08/26/18 10:19 MW [id number] 08/26/18 10:25 MW 08/19/18 08/26/18 09:52 10:19 Wound Center Nurse 2 1. L LATERAL LOWER EXTREMITY -Time 09:53 10:20 -Correct Patient Yes Yes -Correct Side, Site, Position Yes Yes -Correct Procedure Yes Yes -Procedure Performed Yes Yes -Type of Procedure Debridement Debridement -Clinical Debridement Subcutaneous Subcutaneous -Post Debridement Size (cm) - Length 4.4 8.2 -Post Debridement Size (cm) - Width 0.7 1.5 -Post Debridement Size (cm) - Depth 0.1 0.1 -Total Square Cm 3.08 12.30 -Wound/Ulcer Outcome Not Healed Not Healed -Ulcer Cleansing Rinsed/ Rinsed/ Irrigated with Irrigated with Saline Saline -Foul Odor after Cleansing No No -Bioengineered Tissue Yes No -Type of bioengineered Tissue GRAFIX-Pime -Expiration Date 06/30/19 -Product Lot Number [id number] -Percent Used 100 -Saline Lot Number [id number] -Bleeding Controlled with Pressure Pressure -Offloading No No -Treatment Response Procedure Procedure Tolerated Well Tolerated Well Pain Scale: 0-10 Numeric Is Patient Pain Free? Yes Yes Wound debrided: Left lower extremity Wound Grade/Stage: Stage III Type of Debridement: Excisional debridement Anesthesia Used: 4% Lidocaine Solution Depth: Down to and including healthy tissue, in the subcutaneous layer Percentage of wound debrided: 100 Instrument Used: 5mm curette Tissue Removed: Slough and devitalized tissue Severity: Fat Layer Exposed Amount of bleeding with debridement: Mild Bleeding Controlled with: Pressure Patient tolerated procedure well Assessment/Plan Active Problems Wound of left lower extremity (Chronic) Post debridement/hematoma evacuation. PAD (peripheral artery disease) (Chronic) Venous insufficiency (Chronic) Delayed wound healing (Chronic) Assessment: Left lower extremity ulcer post I and D with delayed healing. Peripheral arterial disease. Delayed healing. Lower extremity with venous insufficiency. Arterial calcification Plan: Significantly worsened in the last week. Due to maceration he had a break from Grafix Mimedix 2 weeks ago. Continues to Promogran with Adaptic. Maceration improved and cultures were negative. The Grafix Mimedix was reapplied last week. Patient denies pain, increased discharge or discomfort. However wound has doubled in size. Also sloughing noted. Debridement done as documented above, procedure was well-tolerated. Cultures taken. We will go back to [facility] with Ada[facility]. Leave in place until Friday. 3M wraps for edema management. Change on Friday. Increased protein intake again recommended. Elevate lower extremities when seated and in bed. His questions were answered and he was advised to call with any further questions or concerns. Follow-up in 1 week. Advised to call with any questions or concerns. Follow up in 1 week. This note was generated with [employer] dictation software. It may contain incorrect words, spelling, and punctuation that were not noted in checking the note before signing.
--- NOTE | 2018-08-26 12:27 | PCM.WC.PN ---
(1) Delayed wound healing Status: Chronic Current Visit: Yes Code(s): T14.8XXD - Other injury of unspecified body region, subsequent encounter (2) PAD (peripheral artery disease) Status: Chronic Current Visit: Yes Code(s): I73.9 - Peripheral vascular disease, unspecified (3) Venous insufficiency Status: Chronic Current Visit: Yes Code(s): I87.2 - Venous insufficiency (chronic) (peripheral) (4) Wound of left lower extremity Status: Chronic Current Visit: Yes Code(s): S81.802A - Unspecified open wound, left lower leg, initial encounter Comment: Post debridement/hematoma evacuation. Type of Wound Date of Service: 08/19/18 Chief Complaint: Left lower extremity ulcer - Delayed healing. History of Wound: Mr. Chauhan is a 62 year old with PMH as stated above who presented here due to delayed healing of his left lower extremity wound. He denies chills, fever, nausea, vomitting or loss of appetite. He changes dressing as advised. He has 1 more day of Bactrim for treatment of MRSA. He denies ulcer or redness. Progress of Wound: Maceration improved however significant lower extremity swelling. - Physical Exam Vital Signs Temp Pulse Resp BP 96.8 F L 81 18 128/90 H 08/26/18 10:00 08/26/18 10:00 08/26/18 10:00 08/26/18 10:00 General: Alert, Oriented x3, Cooperative, No apparent distress HEENT: Atraumatic, Normocephalic Oral: Moist Mucosa Neck: Supple Lungs: Normal air movement Abdomen: Non Tender Extremities: No cyanosis, Edema Skin: Ulcer/ Wound Wound Measurements and Assessment WC - Nurse 1 - General Ulcer Measurement Start: 08/19/18 09:32 Freq: Status: Active Protocol: Activity Type Activity Date Activity User E-Sign Co-Sign Detail Recorded Client Recorded Date Recorded By Document 08/26/18 10:00 DV [id number] 08/26/18 10:11 DV 08/26/18 10:00 Wound Center Nurse 1 [Ulcer Assessment] 1. L LATERAL LOWER EXTREMITY -Combined with other wound No -Current Size (cm) - Length 9.5 -Current Size (cm) - Width 1.5 -Current Size (cm) - Depth 0.2 -Total Square Cm 14.25 -Photo Taken No -Epithelialization None Present -Tunneling No -Undermining/Tunneling No -Circular Undermining No -Classification - Thickness Full Thickness without Exposed Support Structure -Exudate Amt Large -Exudate Type Yellow/Green -Wound Margin Flat & Intact -Granulation Amt None Present (0 %) -Granulation Quality N/A -Slough/Fibrin Yes -Necrosis Amt Large (67-100%) -Necrotic Tissue Type Adherent Slough -Structure Exposed None/Limited to Skin Breakdown -Texture (Kirstie-wound Skin Appearance) Assessed -Moisture (Kirstie-wound Skin Appearance Assessed ) -Color (Kirstie-wound Skin Appearance) Assessed -Temperature (Kirstie-wound Skin No Abnormality Appearance) (Pt Warm) -Tenderness on Palpation (Kirstie-wound Yes Skin Appearance) -Ulcer Cleansing soap -Foul Odor after Cleansing Yes -Anesthetic Used 5% Lidocaine Gel [Edema Assessment] -Lower Limb Edema Present Yes -Left Calf (cm) 36.6 -Left Ankle (cm) 23.0 WC - Nurse 2 - General Ulcer CM Notes Start: 08/19/18 09:32 Freq: Status: Active Protocol: Activity Type Activity Date Activity User E-Sign Co-Sign Detail Recorded Client Recorded Date Recorded By Document 08/26/18 10:19 MW [id number] 08/26/18 10:25 MW 08/26/18 10:19 Wound Center Nurse 2 [Procedure/Treatment] 1. L LATERAL LOWER EXTREMITY -Time 10:20 -Correct Patient Yes -Correct Side, Site, Position Yes -Correct Procedure Yes -Procedure Performed Yes -Type of Procedure Debridement -Clinical Debridement Subcutaneous -Post Debridement Size (cm) - Length 8.2 -Post Debridement Size (cm) - Width 1.5 -Post Debridement Size (cm) - Depth 0.1 -Total Square Cm 12.30 -Wound/Ulcer Outcome Not Healed -Ulcer Cleansing Rinsed/ Irrigated with Saline -Foul Odor after Cleansing No -Bioengineered Tissue No -Bleeding Controlled with Pressure -Offloading No -Treatment Response Procedure Tolerated Well [See Physician Procedure note for Specifics] Pain Scale: 0-10 Numeric [Pain] -Is Patient Pain Free? Yes Musculoskeletal: No Muscle Wasting Neurological: Cranial nerves II-XII grossly intact Psych/Mental Status: Normal Affect Debridement Note Post-Debridement Measurements/Treatment WC - Nurse 2 - General Ulcer CM Notes Start: 08/19/18 09:32 Freq: Status: Active Protocol: Activity Type Activity Date Activity User E-Sign Co-Sign Detail Recorded Client Recorded Date Recorded By Document 08/19/18 09:52 MW [id number] 08/19/18 10:01 MW Document 08/26/18 10:19 MW [id number] 08/26/18 10:25 MW 08/19/18 08/26/18 09:52 10:19 Wound Center Nurse 2 1. L LATERAL LOWER EXTREMITY -Time 09:53 10:20 -Correct Patient Yes Yes -Correct Side, Site, Position Yes Yes -Correct Procedure Yes Yes -Procedure Performed Yes Yes -Type of Procedure Debridement Debridement -Clinical Debridement Subcutaneous Subcutaneous -Post Debridement Size (cm) - Length 4.4 8.2 -Post Debridement Size (cm) - Width 0.7 1.5 -Post Debridement Size (cm) - Depth 0.1 0.1 -Total Square Cm 3.08 12.30 -Wound/Ulcer Outcome Not Healed Not Healed -Ulcer Cleansing Rinsed/ Rinsed/ Irrigated with Irrigated with Saline Saline -Foul Odor after Cleansing No No -Bioengineered Tissue Yes No -Type of bioengineered Tissue GRAWHITX-Pime -Expiration Date 06/30/19 -Product Lot Number [id number] -Percent Used 100 -Saline Lot Number [id number] -Bleeding Controlled with Pressure Pressure -Offloading No No -Treatment Response Procedure Procedure Tolerated Well Tolerated Well Pain Scale: 0-10 Numeric Is Patient Pain Free? Yes Yes Wound debrided: Left lower extremity Wound Grade/Stage: Stage III Type of Debridement: Excisional debridement Anesthesia Used: 4% Lidocaine Solution Depth: Down to and including healthy tissue, in the subcutaneous layer Percentage of wound debrided: 100 Instrument Used: 5mm curette Tissue Removed: Slough and devitalized tissue Severity: Fat Layer Exposed Amount of bleeding with debridement: Mild Bleeding Controlled with: Pressure Patient tolerated procedure well Assessment/Plan Active Problems Wound of left lower extremity (Chronic) Post debridement/hematoma evacuation. PAD (peripheral artery disease) (Chronic) Venous insufficiency (Chronic) Delayed wound healing (Chronic) Assessment: Left lower extremity ulcer post I and D with delayed healing. Peripheral arterial disease. Delayed healing. Lower extremity with venous insufficiency. Arterial calcification Plan: Maceration has significantly improved. However, patient presents with worsening edema. He has traditionally not done well with other forms of compression. Debridement done as documented above, procedure was well-tolerated. Due to improvement in maceration, will restart Grafix me medics and see how he does. Seventh application done using 100% of product. Covered with wound veil after moistening with saline. Leave in place for a week. 3M wraps for edema management. Follow-up on Friday to change wraps. Increased protein intake again recommended. Elevate lower extremities when seated and in bed. His questions were answered and he was advised to call with any further questions or concerns. Follow-up in 1 week. Advised to call with any questions or concerns. Follow up in 1 week. This note was generated with [employer] dictation software. It may contain incorrect words, spelling, and punctuation that were not noted in checking the note before signing.
--- NOTE | 2018-08-26 12:32 | PN.PCM_ITS ---
(1) Delayed wound healing Status: Chronic Current Visit: Yes Code(s): T14.8XXD - Other injury of unspecified body region, subsequent encounter (2) PAD (peripheral artery disease) Status: Chronic Current Visit: Yes Code(s): I73.9 - Peripheral vascular disease, unspecified (3) Venous insufficiency Status: Chronic Current Visit: Yes Code(s): I87.2 - Venous insufficiency (chronic) (peripheral) (4) Wound of left lower extremity Status: Chronic Current Visit: Yes Code(s): S81.802A - Unspecified open wound, left lower leg, initial encounter Comment: Post debridement/hematoma evacuation. Type of Wound Date of Service: 08/19/18 Chief Complaint: Left lower extremity ulcer - Delayed healing. History of Wound: Mr. Chauhan is a 62 year old with PMH as stated above who presented here due to delayed healing of his left lower extremity wound. He denies chills, fever, nausea, vomitting or loss of appetite. He changes dressing as advised. He has 1 more day of Bactrim for treatment of MRSA. He denies ulcer or redness. Progress of Wound: Maceration improved however significant lower extremity swelling. - Physical Exam Vital Signs Temp Pulse Resp BP 96.8 F L 81 18 128/90 H 08/26/18 10:00 08/26/18 10:00 08/26/18 10:00 08/26/18 10:00 General: Alert, Oriented x3, Cooperative, No apparent distress HEENT: Atraumatic, Normocephalic Oral: Moist Mucosa Neck: Supple Lungs: Normal air movement Abdomen: Non Tender Extremities: No cyanosis, Edema Skin: Ulcer/ Wound Wound Measurements and Assessment WC - Nurse 1 - General Ulcer Measurement Start: 08/19/18 09:32 Freq: Status: Active Protocol: Activity Type Activity Date Activity User E-Sign Co-Sign Detail Recorded Client Recorded Date Recorded By Document 08/26/18 10:00 DV [id number] 08/26/18 10:11 DV 08/26/18 10:00 Wound Center Nurse 1 [Ulcer Assessment] 1. L LATERAL LOWER EXTREMITY -Combined with other wound No -Current Size (cm) - Length 9.5 -Current Size (cm) - Width 1.5 -Current Size (cm) - Depth 0.2 -Total Square Cm 14.25 -Photo Taken No -Epithelialization None Present -Tunneling No -Undermining/Tunneling No -Circular Undermining No -Classification - Thickness Full Thickness without Exposed Support Structure -Exudate Amt Large -Exudate Type Yellow/Green -Wound Margin Flat & Intact -Granulation Amt None Present (0 %) -Granulation Quality N/A -Slough/Fibrin Yes -Necrosis Amt Large (67-100%) -Necrotic Tissue Type Adherent Slough -Structure Exposed None/Limited to Skin Breakdown -Texture (Kirstie-wound Skin Appearance) Assessed -Moisture (Kirstie-wound Skin Appearance Assessed ) -Color (Kirstie-wound Skin Appearance) Assessed -Temperature (Kirstie-wound Skin No Abnormality Appearance) (Pt Warm) -Tenderness on Palpation (Kirstie-wound Yes Skin Appearance) -Ulcer Cleansing soap -Foul Odor after Cleansing Yes -Anesthetic Used 5% Lidocaine Gel [Edema Assessment] -Lower Limb Edema Present Yes -Left Calf (cm) 36.6 -Left Ankle (cm) 23.0 WC - Nurse 2 - General Ulcer CM Notes Start: 08/19/18 09:32 Freq: Status: Active Protocol: Activity Type Activity Date Activity User E-Sign Co-Sign Detail Recorded Client Recorded Date Recorded By Document 08/26/18 10:19 MW [id number] 08/26/18 10:25 MW 08/26/18 10:19 Wound Center Nurse 2 [Procedure/Treatment] 1. L LATERAL LOWER EXTREMITY -Time 10:20 -Correct Patient Yes -Correct Side, Site, Position Yes -Correct Procedure Yes -Procedure Performed Yes -Type of Procedure Debridement -Clinical Debridement Subcutaneous -Post Debridement Size (cm) - Length 8.2 -Post Debridement Size (cm) - Width 1.5 -Post Debridement Size (cm) - Depth 0.1 -Total Square Cm 12.30 -Wound/Ulcer Outcome Not Healed -Ulcer Cleansing Rinsed/ Irrigated with Saline -Foul Odor after Cleansing No -Bioengineered Tissue No -Bleeding Controlled with Pressure -Offloading No -Treatment Response Procedure Tolerated Well [See Physician Procedure note for Specifics] Pain Scale: 0-10 Numeric [Pain] -Is Patient Pain Free? Yes Musculoskeletal: No Muscle Wasting Neurological: Cranial nerves II-XII grossly intact Psych/Mental Status: Normal Affect Debridement Note Post-Debridement Measurements/Treatment WC - Nurse 2 - General Ulcer CM Notes Start: 08/19/18 09:32 Freq: Status: Active Protocol: Activity Type Activity Date Activity User E-Sign Co-Sign Detail Recorded Client Recorded Date Recorded By Document 08/19/18 09:52 MW [id number] 08/19/18 10:01 MW Document 08/26/18 10:19 MW [id number] 08/26/18 10:25 MW 08/19/18 08/26/18 09:52 10:19 Wound Center Nurse 2 1. L LATERAL LOWER EXTREMITY -Time 09:53 10:20 -Correct Patient Yes Yes -Correct Side, Site, Position Yes Yes -Correct Procedure Yes Yes -Procedure Performed Yes Yes -Type of Procedure Debridement Debridement -Clinical Debridement Subcutaneous Subcutaneous -Post Debridement Size (cm) - Length 4.4 8.2 -Post Debridement Size (cm) - Width 0.7 1.5 -Post Debridement Size (cm) - Depth 0.1 0.1 -Total Square Cm 3.08 12.30 -Wound/Ulcer Outcome Not Healed Not Healed -Ulcer Cleansing Rinsed/ Rinsed/ Irrigated with Irrigated with Saline Saline -Foul Odor after Cleansing No No -Bioengineered Tissue Yes No -Type of bioengineered Tissue [id number]-Pime -Expiration Date 06/30/19 -Product Lot Number [id number] -Percent Used 100 -Saline Lot Number [id number] -Bleeding Controlled with Pressure Pressure -Offloading No No -Treatment Response Procedure Procedure Tolerated Well Tolerated Well Pain Scale: 0-10 Numeric Is Patient Pain Free? Yes Yes Wound debrided: Left lower extremity Wound Grade/Stage: Stage III Type of Debridement: Excisional debridement Anesthesia Used: 4% Lidocaine Solution Depth: Down to and including healthy tissue, in the subcutaneous layer Percentage of wound debrided: 100 Instrument Used: 5mm curette Tissue Removed: Slough and devitalized tissue Severity: Fat Layer Exposed Amount of bleeding with debridement: Mild Bleeding Controlled with: Pressure Patient tolerated procedure well Assessment/Plan Active Problems Wound of left lower extremity (Chronic) Post debridement/hematoma evacuation. PAD (peripheral artery disease) (Chronic) Venous insufficiency (Chronic) Delayed wound healing (Chronic) Assessment: Left lower extremity ulcer post I and D with delayed healing. Peripheral arterial disease. Delayed healing. Lower extremity with venous insufficiency. Arterial calcification Plan: Maceration has significantly improved. However, patient presents with worsening edema. He has traditionally not done well with other forms of compression. Debridement done as documented above, procedure was well- tolerated. Due to improvement in maceration, will restart [employer] and see how he does. Seventh application done using 100% of product. Covered with wound veil after moistening with saline. Leave in place for a week. 3M wraps for edema management. Follow-up on Friday to change wraps. Increased protein intake again recommended. Elevate lower extremities when seated and in bed. Hi s questions were answered and he was advised to call with any further questions or concerns. Follow-up in 1 week. Advised to call with any questions or concerns. Follow up in 1 week. This note was generated with [employer] dictation software. It may contain incorrect words, spelling, and punctuation that were not noted in checking the note before signing.
[2018-08-28 10:17] VITALS: BP 150/64; PULSE 98; RESP 18; TEMP 36.4; BMI 42.2
[2018-09-02 09:40] VITALS: BP 118/81; PULSE 73; RESP 18; TEMP 36.1; BMI 42.2
--- NOTE | 2018-09-02 11:53 | PCM.WC.PN ---
(1) Delayed wound healing Status: Chronic Current Visit: Yes Code(s): T14.8XXD - Other injury of unspecified body region, subsequent encounter (2) PAD (peripheral artery disease) Status: Chronic Current Visit: Yes Code(s): I73.9 - Peripheral vascular disease, unspecified (3) Venous insufficiency Status: Chronic Current Visit: Yes Code(s): I87.2 - Venous insufficiency (chronic) (peripheral) (4) Wound of left lower extremity Status: Chronic Current Visit: Yes Code(s): S81.802A - Unspecified open wound, left lower leg, initial encounter Comment: Post debridement/hematoma evacuation. Type of Wound Chief Complaint: Left lower extremity ulcer - Delayed healing. History of Wound: Mr. Chauhan is a 62 year old with PMH as stated above who presented here due to delayed healing of his left lower extremity wound. He denies chills, fever, nausea, vomitting or loss of appetite. He changes dressing as advised. He has 1 more day of Bactrim for treatment of MRSA. He denies ulcer or redness. Progress of Wound: No new concerns at this time. Started on antibiotics due to culture which grew Pseudomonas. - Physical Exam Vital Signs Temp Pulse Resp BP 96.9 F L 73 18 118/81 H 09/02/18 09:40 09/02/18 09:40 09/02/18 09:40 09/02/18 09:40 General: Alert, Oriented x3, Cooperative, No apparent distress HEENT: Atraumatic, Normocephalic Oral: Moist Mucosa Neck: Supple Lungs: Normal air movement Abdomen: Non Tender, Obese Extremities: No cyanosis Skin: Ulcer/ Wound Wound Measurements and Assessment WC - Nurse 1 - General Ulcer Measurement Start: 08/19/18 09:32 Freq: Status: Active Protocol: Activity Type Activity Date Activity User E-Sign Co-Sign Detail Recorded Client Recorded Date Recorded By Document 09/02/18 09:40 [facility] [id number] 09/02/18 09:47 [facility] 09/02/18 09:40 Wound Center Nurse 1 [Ulcer Assessment] 1. L LATERAL LOWER EXTREMITY -Combined with other wound No -Current Size (cm) - Length 8.2 -Current Size (cm) - Width 1.1 -Current Size (cm) - Depth 0.2 -Total Square Cm 9.02 -Photo Taken No -Epithelialization None Present -Tunneling No -Undermining/Tunneling No -Circular Undermining No -Exudate Amt Medium -Exudate Type Serosanguineous -Wound Margin Distinct, Outline Attached -Granulation Amt Medium (34-66%) -Granulation Quality Red -Slough/Fibrin Yes -Necrosis Amt Medium (34-66%) -Necrotic Tissue Type Adherent Slough -Texture (Kirstie-wound Skin Appearance) Scarring -Moisture (Kirstie-wound Skin Appearance Dry/Scaly ) -Color (Kirstie-wound Skin Appearance) Erythema -Temperature (Kirstie-wound Skin No Abnormality Appearance) (Pt Warm) -Tenderness on Palpation (Kirstie-wound No Skin Appearance) -Ulcer Cleansing Wound Cleanser -Foul Odor after Cleansing No -Anesthetic Used 5% Lidocaine Gel [Edema Assessment] -Lower Limb Edema Present Yes -Left Calf (cm) 36.1 -Left Ankle (cm) 23.1 WC - Nurse 2 - General Ulcer CM Notes Start: 08/19/18 09:32 Freq: Status: Active Protocol: Activity Type Activity Date Activity User E-Sign Co-Sign Detail Recorded Client Recorded Date Recorded By Document 09/02/18 10:08 MW [id number] 09/02/18 10:12 MW 09/02/18 10:08 Wound Center Nurse 2 [Procedure/Treatment] 1. L LATERAL LOWER EXTREMITY -Time 10:08 -Correct Patient Yes -Correct Side, Site, Position Yes -Correct Procedure Yes -Procedure Performed Yes -Type of Procedure Debridement -Clinical Debridement Subcutaneous -Post Debridement Size (cm) - Length 7.6 -Post Debridement Size (cm) - Width 1.1 -Post Debridement Size (cm) - Depth 0.1 -Total Square Cm 8.36 -Wound/Ulcer Outcome Not Healed -Ulcer Cleansing Rinsed/ Irrigated with Saline -Foul Odor after Cleansing No -Bioengineered Tissue No -Bleeding Controlled with Pressure -Offloading No -Treatment Response Procedure Tolerated Well [See Physician Procedure note for Specifics] Pain Scale: 0-10 Numeric [Pain] -Is Patient Pain Free? Yes Musculoskeletal: No Muscle Wasting Neurological: Cranial nerves II-XII grossly intact Psych/Mental Status: Normal Affect Debridement Note Post-Debridement Measurements/Treatment WC - Nurse 2 - General Ulcer CM Notes Start: 08/19/18 09:32 Freq: Status: Active Protocol: Activity Type Activity Date Activity User E-Sign Co-Sign Detail Recorded Client Recorded Date Recorded By Document 08/19/18 09:52 MW [id number] 08/19/18 10:01 MW Document 08/26/18 10:19 MW [id number] 08/26/18 10:25 MW Document 09/02/18 10:08 MW [id number] 09/02/18 10:12 MW 08/19/18 08/26/18 09/02/18 09:52 10:19 10:08 Wound Center Nurse 2 1. L LATERAL LOWER EXTREMITY -Time 09:53 10:20 10:08 -Correct Patient Yes Yes Yes -Correct Side, Site, Position Yes Yes Yes -Correct Procedure Yes Yes Yes -Procedure Performed Yes Yes Yes -Type of Procedure Debridement Debridement Debridement -Clinical Debridement Subcutaneous Subcutaneous Subcutaneous -Post Debridement Size (cm) - Length 4.4 8.2 7.6 -Post Debridement Size (cm) - Width 0.7 1.5 1.1 -Post Debridement Size (cm) - Depth 0.1 0.1 0.1 -Total Square Cm 3.08 12.30 8.36 -Wound/Ulcer Outcome Not Healed Not Healed Not Healed -Ulcer Cleansing Rinsed/ Rinsed/ Rinsed/ Irrigated with Irrigated with Irrigated with Saline Saline Saline -Foul Odor after Cleansing No No No -Bioengineered Tissue Yes No No -Type of bioengineered Tissue Valerie -Expiration Date 06/30/19 -Product Lot Number [id number] -Percent Used 100 -Saline Lot Number [id number] -Bleeding Controlled with Pressure Pressure Pressure -Offloading No No No -Treatment Response Procedure Procedure Procedure Tolerated Well Tolerated Well Tolerated Well Pain Scale: 0-10 Numeric Is Patient Pain Free? Yes Yes Yes Wound debrided: Left lower extremity Wound Grade/Stage: Stage III Type of Debridement: Excisional debridement Anesthesia Used: 5% Lidocaine Gel Depth: Down to and including healthy tissue, in the subcutaneous layer Percentage of wound debrided: 100 Instrument Used: 5mm curette Tissue Removed: Slough and devitalized tissue Severity: Fat Layer Exposed Amount of bleeding with debridement: Mild Bleeding Controlled with: Pressure Patient tolerated procedure well Assessment/Plan Active Problems Wound of left lower extremity (Chronic) Post debridement/hematoma evacuation. PAD (peripheral artery disease) (Chronic) Venous insufficiency (Chronic) Delayed wound healing (Chronic) Assessment: Left lower extremity ulcer post I and D with delayed healing. Peripheral arterial disease. Delayed healing. Lower extremity with venous insufficiency. Arterial calcification Plan: Wound improved. Periwound area also appears healthier. Currently on Omnicef due to culture which grew Pseudomonas. Debridement done as documented above, procedure was well-tolerated. Continue Promogran. Leave dressing in place for a week. 3M wraps for edema management. Increased protein intake again recommended. Elevate lower extremities when seated and in bed. His questions were answered and he was advised to call with any further questions or concerns. Follow-up in 1 week. This note was generated with [employer] dictation software. It may contain incorrect words, spelling, and punctuation that were not noted in checking the note before signing.
--- NOTE | 2018-09-02 11:58 | PN.PCM_ITS ---
(1) Delayed wound healing Status: Chronic Current Visit: Yes Code(s): T14.8XXD - Other injury of unspecified body region, subsequent encounter (2) PAD (peripheral artery disease) Status: Chronic Current Visit: Yes Code(s): I73.9 - Peripheral vascular disease, unspecified (3) Venous insufficiency Status: Chronic Current Visit: Yes Code(s): I87.2 - Venous insufficiency (chronic) (peripheral) (4) Wound of left lower extremity Status: Chronic Current Visit: Yes Code(s): S81.802A - Unspecified open wound, left lower leg, initial encounter Comment: Post debridement/hematoma evacuation. Type of Wound Chief Complaint: Left lower extremity ulcer - Delayed healing. History of Wound: Mr. Chahuan is a 62 year old with PMH as stated above who presented here due to delayed healing of his left lower extremity wound. He denies chills, fever, nausea, vomitting or loss of appetite. He changes dressing as advised. He has 1 more day of Bactrim for treatment of MRSA. He denies ulcer or redness. Progress of Wound: No new concerns at this time. Started on antibiotics due to culture which grew Pseudomonas. - Physical Exam Vital Signs Temp Pulse Resp BP 96.9 F L 73 18 118/81 H 09/02/18 09:40 09/02/18 09:40 09/02/18 09:40 09/02/18 09:40 General: Alert, Oriented x3, Cooperative, No apparent distress HEENT: Atraumatic, Normocephalic Oral: Moist Mucosa Neck: Supple Lungs: Normal air movement Abdomen: Non Tender, Obese Extremities: No cyanosis Skin: Ulcer/ Wound Wound Measurements and Assessment WC - Nurse 1 - General Ulcer Measurement Start: 08/19/18 09:32 Freq: Status: Active Protocol: Activity Type Activity Date Activity User E-Sign Co-Sign Detail Recorded Client Recorded Date Recorded By Document 09/02/18 09:40 [facility] [id number] 09/02/18 09:47 [facility] 09/02/18 09:40 Wound Center Nurse 1 [Ulcer Assessment] 1. L LATERAL LOWER EXTREMITY -Combined with other wound No -Current Size (cm) - Length 8.2 -Current Size (cm) - Width 1.1 -Current Size (cm) - Depth 0.2 -Total Square Cm 9.02 -Photo Taken No -Epithelialization None Present -Tunneling No -Undermining/Tunneling No -Circular Undermining No -Exudate Amt Medium -Exudate Type Serosanguineous -Wound Margin Distinct, Outline Attached -Granulation Amt Medium (34-66%) -Granulation Quality Red -Slough/Fibrin Yes -Necrosis Amt Medium (34-66%) -Necrotic Tissue Type Adherent Slough -Texture (Kirstie-wound Skin Appearance) Scarring -Moisture (Kirstie-wound Skin Appearance Dry/Scaly ) -Color (Kirstie-wound Skin Appearance) Erythema -Temperature (Kirstie-wound Skin No Abnormality Appearance) (Pt Warm) -Tenderness on Palpation (Kirstie-wound No Skin Appearance) -Ulcer Cleansing Wound Cleanser -Foul Odor after Cleansing No -Anesthetic Used 5% Lidocaine Gel [Edema Assessment] -Lower Limb Edema Present Yes -Left Calf (cm) 36.1 -Left Ankle (cm) 23.1 WC - Nurse 2 - General Ulcer CM Notes Start: 08/19/18 09:32 Freq: Status: Active Protocol: Activity Type Activity Date Activity User E-Sign Co-Sign Detail Recorded Client Recorded Date Recorded By Document 09/02/18 10:08 MW [id number] 09/02/18 10:12 MW 09/02/18 10:08 Wound Center Nurse 2 [Procedure/Treatment] 1. L LATERAL LOWER EXTREMITY -Time 10:08 -Correct Patient Yes -Correct Side, Site, Position Yes -Correct Procedure Yes -Procedure Performed Yes -Type of Procedure Debridement -Clinical Debridement Subcutaneous -Post Debridement Size (cm) - Length 7.6 -Post Debridement Size (cm) - Width 1.1 -Post Debridement Size (cm) - Depth 0.1 -Total Square Cm 8.36 -Wound/Ulcer Outcome Not Healed -Ulcer Cleansing Rinsed/ Irrigated with Saline -Foul Odor after Cleansing No -Bioengineered Tissue No -Bleeding Controlled with Pressure -Offloading No -Treatment Response Procedure Tolerated Well [See Physician Procedure note for Specifics] Pain Scale: 0-10 Numeric [Pain] -Is Patient Pain Free? Yes Musculoskeletal: No Muscle Wasting Neurological: Cranial nerves II-XII grossly intact Psych/Mental Status: Normal Affect Debridement Note Post-Debridement Measurements/Treatment WC - Nurse 2 - General Ulcer CM Notes Start: 08/19/18 09:32 Freq: Status: Active Protocol: Activity Type Activity Date Activity User E-Sign Co-Sign Detail Recorded Client Recorded Date Recorded By Document 08/19/18 09:52 MW [id number] 08/19/18 10:01 MW Document 08/26/18 10:19 MW [id number] 08/26/18 10:25 MW Document 09/02/18 10:08 MW [id number] 09/02/18 10:12 MW 08/19/18 08/26/18 09/02/18 09:52 10:19 10:08 Wound Center Nurse 2 1. L LATERAL LOWER EXTREMITY -Time 09:53 10:20 10:08 -Correct Patient Yes Yes Yes -Correct Side, Site, Position Yes Yes Yes -Correct Procedure Yes Yes Yes -Procedure Performed Yes Yes Yes -Type of Procedure Debridement Debridement Debridement -Clinical Debridement Subcutaneous Subcutaneous Subcutaneous -Post Debridement Size (cm) - Length 4.4 8.2 7.6 -Post Debridement Size (cm) - Width 0.7 1.5 1.1 -Post Debridement Size (cm) - Depth 0.1 0.1 0.1 -Total Square Cm 3.08 12.30 8.36 -Wound/Ulcer Outcome Not Healed Not Healed Not Healed -Ulcer Cleansing Rinsed/ Rinsed/ Rinsed/ Irrigated with Irrigated with Irrigated with Saline Saline Saline -Foul Odor after Cleansing No No No -Bioengineered Tissue Yes No No -Type of bioengineered Tissue Valerie -Expiration Date 06/30/19 -Product Lot Number [id number] -Percent Used 100 -Saline Lot Number [id number] -Bleeding Controlled with Pressure Pressure Pressure -Offloading No No No -Treatment Response Procedure Procedure Procedure Tolerated Well Tolerated Well Tolerated Well Pain Scale: 0-10 Numeric Is Patient Pain Free? Yes Yes Yes Wound debrided: Left lower extremity Wound Grade/Stage: Stage III Type of Debridement: Excisional debridement Anesthesia Used: 5% Lidocaine Gel Depth: Down to and including healthy tissue, in the subcutaneous layer Percentage of wound debrided: 100 Instrument Used: 5mm curette Tissue Removed: Slough and devitalized tissue Severity: Fat Layer Exposed Amount of bleeding with debridement: Mild Bleeding Controlled with: Pressure Patient tolerated procedure well Assessment/Plan Active Problems Wound of left lower extremity (Chronic) Post debridement/hematoma evacuation. PAD (peripheral artery disease) (Chronic) Venous insufficiency (Chronic) Delayed wound healing (Chronic) Assessment: Left lower extremity ulcer post I and D with delayed healing. Peripheral arterial disease. Delayed healing. Lower extremity with venous insufficiency. Arterial calcification Plan: Wound improved. Periwound area also appears healthier. Currently on Omnicef due to culture which grew Pseudomonas. Debridement done as documented above, procedure was well-tolerated. Continue Promogran. Leave dressing in place for a week. 3M wraps for edema management. Increased protein intake again recommended. Elevate lower extremities when seated and in bed. His questions were answered and he was advised to call with any further questions or concerns. Follow-up in 1 week. This note was generated with [employer] dictation software. It may contain incorrect words, spelling, and punctuation that were not noted in checking the note before signing.
[2018-09-09 09:39] VITALS: BP 113/75; PULSE 78; RESP 16; TEMP 36.1; BMI 42.2
--- NOTE | 2018-09-09 10:22 | PCM.WC.PN ---
(1) Delayed wound healing Status: Chronic Current Visit: Yes Code(s): T14.8XXD - Other injury of unspecified body region, subsequent encounter (2) PAD (peripheral artery disease) Status: Chronic Current Visit: Yes Code(s): I73.9 - Peripheral vascular disease, unspecified (3) Venous insufficiency Status: Chronic Current Visit: Yes Code(s): I87.2 - Venous insufficiency (chronic) (peripheral) (4) Wound of left lower extremity Status: Chronic Current Visit: Yes Code(s): S81.802A - Unspecified open wound, left lower leg, initial encounter Comment: Post debridement/hematoma evacuation. Type of Wound Chief Complaint: Left lower extremity ulcer - Delayed healing. History of Wound: Mr. Chauhan is a 62 year old with PMH as stated above who presented here due to delayed healing of his left lower extremity wound. He denies chills, fever, nausea, vomitting or loss of appetite. He changes dressing as advised. He has 1 more day of Bactrim for treatment of MRSA. He denies ulcer or redness. Progress of Wound: Foul smell noted from the wound per Nurse 1. Appears to have worsened as well. He denies any new concerns. - Physical Exam Vital Signs Temp Pulse Resp BP 97 F L 78 16 113/75 09/09/18 09:39 09/09/18 09:39 09/09/18 09:39 09/09/18 09:39 General: Alert, Oriented x3, Cooperative, No apparent distress HEENT: Atraumatic, Normocephalic Oral: Moist Mucosa Neck: Supple Lungs: Normal air movement Abdomen: Non Tender Extremities: No cyanosis Skin: Ulcer/ Wound Wound Measurements and Assessment WC - Nurse 1 - General Ulcer Measurement Start: 08/19/18 09:32 Freq: Status: Active Protocol: Activity Type Activity Date Activity User E-Sign Co-Sign Detail Recorded Client Recorded Date Recorded By Document 09/09/18 09:39 [facility] [id number] 09/09/18 09:47 [facility] 09/09/18 09:39 Wound Center Nurse 1 [Ulcer Assessment] 1. L LATERAL LOWER EXTREMITY -Combined with other wound No -Current Size (cm) - Length 8 -Current Size (cm) - Width 1.4 -Current Size (cm) - Depth 0.2 -Total Square Cm 11.2 -Date of Last Picture (Recall this 09/09/18 field) -Photo Taken Yes -Epithelialization None Present -Tunneling No -Undermining/Tunneling No -Circular Undermining No -Classification - Thickness Full Thickness without Exposed Support Structure -Exudate Amt Medium -Exudate Type Serosanguineous -Wound Margin Distinct, Outline Attached -Granulation Amt Medium (34-66%) -Granulation Quality Red -Slough/Fibrin Yes -Necrosis Amt Medium (34-66%) -Necrotic Tissue Type Adherent Slough -Texture (Kirstie-wound Skin Appearance) Assessed Scarring -Moisture (Kirstie-wound Skin Appearance Assessed ) Dry/Scaly -Color (Kirstie-wound Skin Appearance) Assessed Erythema -Temperature (Kirstie-wound Skin No Abnormality Appearance) (Pt Warm) -Tenderness on Palpation (Kirstie-wound No Skin Appearance) -Ulcer Cleansing Wound Cleanser -Foul Odor after Cleansing No -Anesthetic Used 4% Lidocaine Solution [Edema Assessment] -Lower Limb Edema Present Yes -Left Calf (cm) 36 -Left Ankle (cm) 22 WC - Nurse 2 - General Ulcer CM Notes Start: 08/19/18 09:32 Freq: Status: Active Protocol: Activity Type Activity Date Activity User E-Sign Co-Sign Detail Recorded Client Recorded Date Recorded By Document 09/09/18 10:07 MW [id number] 09/09/18 10:11 MW 09/09/18 10:07 Wound Center Nurse 2 [Procedure/Treatment] 1. L LATERAL LOWER EXTREMITY -Time 10:07 -Correct Patient Yes -Correct Side, Site, Position Yes -Correct Procedure Yes -Procedure Performed Yes -Type of Procedure Debridement -Clinical Debridement Subcutaneous -Post Debridement Size (cm) - Length 8.0 -Post Debridement Size (cm) - Width 1.2 -Post Debridement Size (cm) - Depth 0.1 -Total Square Cm 9.60 -Wound/Ulcer Outcome Not Healed -Ulcer Cleansing Rinsed/ Irrigated with Saline -Foul Odor after Cleansing No -Bioengineered Tissue No -Bleeding Controlled with Pressure -Offloading No -Treatment Response Procedure Tolerated Well [See Physician Procedure note for Specifics] Pain Scale: 0-10 Numeric [Pain] -Is Patient Pain Free? Yes Musculoskeletal: No Muscle Wasting Neurological: Cranial nerves II-XII grossly intact Psych/Mental Status: Normal Affect Debridement Note Post-Debridement Measurements/Treatment WC - Nurse 2 - General Ulcer CM Notes Start: 08/19/18 09:32 Freq: Status: Active Protocol: Activity Type Activity Date Activity User E-Sign Co-Sign Detail Recorded Client Recorded Date Recorded By Document 08/19/18 09:52 MW [id number] 08/19/18 10:01 MW Document 08/26/18 10:19 MW [id number] 08/26/18 10:25 MW Document 09/02/18 10:08 MW [id number] 09/02/18 10:12 MW Document 09/09/18 10:07 MW [id number] 09/09/18 10:11 MW 08/19/18 08/26/18 09/02/18 09:52 10:19 10:08 Wound Center Nurse 2 1. L LATERAL LOWER EXTREMITY -Time 09:53 10:20 10:08 -Correct Patient Yes Yes Yes -Correct Side, Site, Position Yes Yes Yes -Correct Procedure Yes Yes Yes -Procedure Performed Yes Yes Yes -Type of Procedure Debridement Debridement Debridement -Clinical Debridement Subcutaneous Subcutaneous Subcutaneous -Post Debridement Size (cm) - Length 4.4 8.2 7.6 -Post Debridement Size (cm) - Width 0.7 1.5 1.1 -Post Debridement Size (cm) - Depth 0.1 0.1 0.1 -Total Square Cm 3.08 12.30 8.36 -Wound/Ulcer Outcome Not Healed Not Healed Not Healed -Ulcer Cleansing Rinsed/ Rinsed/ Rinsed/ Irrigated with Irrigated with Irrigated with Saline Saline Saline -Foul Odor after Cleansing No No No -Bioengineered Tissue Yes No No -Type of bioengineered Tissue Valerie -Expiration Date 06/30/19 -Product Lot Number [id number] -Percent Used 100 -Saline Lot Number [id number] -Bleeding Controlled with Pressure Pressure Pressure -Offloading No No No -Treatment Response Procedure Procedure Procedure Tolerated Well Tolerated Well Tolerated Well Pain Scale: 0-10 Numeric Is Patient Pain Free? Yes Yes Yes 09/09/18 10:07 Wound Center Nurse 2 1. L LATERAL LOWER EXTREMITY -Time 10:07 -Correct Patient Yes -Correct Side, Site, Position Yes -Correct Procedure Yes -Procedure Performed Yes -Type of Procedure Debridement -Clinical Debridement Subcutaneous -Post Debridement Size (cm) - Length 8.0 -Post Debridement Size (cm) - Width 1.2 -Post Debridement Size (cm) - Depth 0.1 -Total Square Cm 9.60 -Wound/Ulcer Outcome Not Healed -Ulcer Cleansing Rinsed/ Irrigated with Saline -Foul Odor after Cleansing No -Bioengineered Tissue No -Type of bioengineered Tissue -Expiration Date -Product Lot Number -Percent Used -Saline Lot Number -Bleeding Controlled with Pressure -Offloading No -Treatment Response Procedure Tolerated Well Pain Scale: 0-10 Numeric Is Patient Pain Free? Yes Wound debrided: Left lower extremity Wound Grade/Stage: Stage III Type of Debridement: Excisional debridement Anesthesia Used: 4% Lidocaine Solution Depth: Down to and including healthy tissue, in the subcutaneous layer Percentage of wound debrided: 100 Instrument Used: 5mm curette Tissue Removed: Slough and devitalized tissue Severity: Fat Layer Exposed Amount of bleeding with debridement: Mild Bleeding Controlled with: Pressure Patient tolerated procedure well Assessment/Plan Active Problems Wound of left lower extremity (Chronic) Post debridement/hematoma evacuation. PAD (peripheral artery disease) (Chronic) Venous insufficiency (Chronic) Delayed wound healing (Chronic) Assessment: Left lower extremity ulcer post I and D with delayed healing. Peripheral arterial disease. Delayed healing. Lower extremity with venous insufficiency. Arterial calcification Plan: Foul smell per Nurse 1 and some worsening in the wound ciurcumference noted today. Currently on Omnicef due to culture which grew Pseudomonas. However most susceptible antibiotics with drug/drug interaction / IV route. Debridement done as documented above, procedure was well-tolerated. Will switch to daily wet to dry dressing with 0.25% Acetic acid. Circaid for edema management. Increased protein intake again recommended. Elevate lower extremities when seated and in bed. Not open to following up with Vascular surgery. Scheduled to follow up with his drum plater net month and will consider going on Xarelto. His questions were answered and he was advised to call with any further questions or concerns. Follow-up in 1 week. This note was generated with [employer] dictation software. It may contain incorrect words, spelling, and punctuation that were not noted in checking the note before signing.
--- NOTE | 2018-09-09 10:28 | PN.PCM_ITS ---
(1) Delayed wound healing Status: Chronic Current Visit: Yes Code(s): T14.8XXD - Other injury of unspecified body region, subsequent encounter (2) PAD (peripheral artery disease) Status: Chronic Current Visit: Yes Code(s): I73.9 - Peripheral vascular disease, unspecified (3) Venous insufficiency Status: Chronic Current Visit: Yes Code(s): I87.2 - Venous insufficiency (chronic) (peripheral) (4) Wound of left lower extremity Status: Chronic Current Visit: Yes Code(s): S81.802A - Unspecified open wound, left lower leg, initial encounter Comment: Post debridement/hematoma evacuation. Type of Wound Chief Complaint: Left lower extremity ulcer - Delayed healing. History of Wound: Mr. Chauhan is a 62 year old with PMH as stated above who presented here due to delayed healing of his left lower extremity wound. He denies chills, fever, nausea, vomitting or loss of appetite. He changes dressing as advised. He has 1 more day of Bactrim for treatment of MRSA. He denies ulcer or redness. Progress of Wound: Foul smell noted from the wound per Nurse 1. Appears to have worsened as well. He denies any new concerns. - Physical Exam Vital Signs Temp Pulse Resp BP 97 F L 78 16 113/75 09/09/18 09:39 09/09/18 09:39 09/09/18 09:39 09/09/18 09:39 General: Alert, Oriented x3, Cooperative, No apparent distress HEENT: Atraumatic, Normocephalic Oral: Moist Mucosa Neck: Supple Lungs: Normal air movement Abdomen: Non Tender Extremities: No cyanosis Skin: Ulcer/ Wound Wound Measurements and Assessment WC - Nurse 1 - General Ulcer Measurement Start: 08/19/18 09:32 Freq: Status: Active Protocol: Activity Type Activity Date Activity User E-Sign Co-Sign Detail Recorded Client Recorded Date Recorded By Document 09/09/18 09:39 [facility] [id number] 09/09/18 09:47 [facility] 09/09/18 09:39 Wound Center Nurse 1 [Ulcer Assessment] 1. L LATERAL LOWER EXTREMITY -Combined with other wound No -Current Size (cm) - Length 8 -Current Size (cm) - Width 1.4 -Current Size (cm) - Depth 0.2 -Total Square Cm 11.2 -Date of Last Picture (Recall this 09/09/18 field) -Photo Taken Yes -Epithelialization None Present -Tunneling No -Undermining/Tunneling No -Circular Undermining No -Classification - Thickness Full Thickness without Exposed Support Structure -Exudate Amt Medium -Exudate Type Serosanguineous -Wound Margin Distinct, Outline Attached -Granulation Amt Medium (34-66%) -Granulation Quality Red -Slough/Fibrin Yes -Necrosis Amt Medium (34-66%) -Necrotic Tissue Type Adherent Slough -Texture (Kirstie-wound Skin Appearance) Assessed Scarring -Moisture (Kirstie-wound Skin Appearance Assessed ) Dry/Scaly -Color (Kirstie-wound Skin Appearance) Assessed Erythema -Temperature (Kirstie-wound Skin No Abnormality Appearance) (Pt Warm) -Tenderness on Palpation (Kirstie-wound No Skin Appearance) -Ulcer Cleansing Wound Cleanser -Foul Odor after Cleansing No -Anesthetic Used 4% Lidocaine Solution [Edema Assessment] -Lower Limb Edema Present Yes -Left Calf (cm) 36 -Left Ankle (cm) 22 WC - Nurse 2 - General Ulcer CM Notes Start: 08/19/18 09:32 Freq: Status: Active Protocol: Activity Type Activity Date Activity User E-Sign Co-Sign Detail Recorded Client Recorded Date Recorded By Document 09/09/18 10:07 MW [id number] 09/09/18 10:11 MW 09/09/18 10:07 Wound Center Nurse 2 [Procedure/Treatment] 1. L LATERAL LOWER EXTREMITY -Time 10:07 -Correct Patient Yes -Correct Side, Site, Position Yes -Correct Procedure Yes -Procedure Performed Yes -Type of Procedure Debridement -Clinical Debridement Subcutaneous -Post Debridement Size (cm) - Length 8.0 -Post Debridement Size (cm) - Width 1.2 -Post Debridement Size (cm) - Depth 0.1 -Total Square Cm 9.60 -Wound/Ulcer Outcome Not Healed -Ulcer Cleansing Rinsed/ Irrigated with Saline -Foul Odor after Cleansing No -Bioengineered Tissue No -Bleeding Controlled with Pressure -Offloading No -Treatment Response Procedure Tolerated Well [See Physician Procedure note for Specifics] Pain Scale: 0-10 Numeric [Pain] -Is Patient Pain Free? Yes Musculoskeletal: No Muscle Wasting Neurological: Cranial nerves II-XII grossly intact Psych/Mental Status: Normal Affect Debridement Note Post-Debridement Measurements/Treatment WC - Nurse 2 - General Ulcer CM Notes Start: 08/19/18 09:32 Freq: Status: Active Protocol: Activity Type Activity Date Activity User E-Sign Co-Sign Detail Recorded Client Recorded Date Recorded By Document 08/19/18 09:52 MW [id number] 08/19/18 10:01 MW Document 08/26/18 10:19 MW [id number] 08/26/18 10:25 MW Document 09/02/18 10:08 MW [id number] 09/02/18 10:12 MW Document 09/09/18 10:07 MW [id number] 09/09/18 10:11 MW 08/19/18 08/26/18 09/02/18 09:52 10:19 10:08 Wound Center Nurse 2 1. L LATERAL LOWER EXTREMITY -Time 09:53 10:20 10:08 -Correct Patient Yes Yes Yes -Correct Side, Site, Position Yes Yes Yes -Correct Procedure Yes Yes Yes -Procedure Performed Yes Yes Yes -Type of Procedure Debridement Debridement Debridement -Clinical Debridement Subcutaneous Subcutaneous Subcutaneous -Post Debridement Size (cm) - Length 4.4 8.2 7.6 -Post Debridement Size (cm) - Width 0.7 1.5 1.1 -Post Debridement Size (cm) - Depth 0.1 0.1 0.1 -Total Square Cm 3.08 12.30 8.36 -Wound/Ulcer Outcome Not Healed Not Healed Not Healed -Ulcer Cleansing Rinsed/ Rinsed/ Rinsed/ Irrigated with Irrigated with Irrigated with Saline Saline Saline -Foul Odor after Cleansing No No No -Bioengineered Tissue Yes No No -Type of bioengineered Tissue Valerie -Expiration Date 06/30/19 -Product Lot Number [id number] -Percent Used 100 -Saline Lot Number [id number] -Bleeding Controlled with Pressure Pressure Pressure -Offloading No No No -Treatment Response Procedure Procedure Procedure Tolerated Well Tolerated Well Tolerated Well Pain Scale: 0-10 Numeric Is Patient Pain Free? Yes Yes Yes 09/09/18 10:07 Wound Center Nurse 2 1. L LATERAL LOWER EXTREMITY -Time 10:07 -Correct Patient Yes -Correct Side, Site, Position Yes -Correct Procedure Yes -Procedure Performed Yes -Type of Procedure Debridement -Clinical Debridement Subcutaneous -Post Debridement Size (cm) - Length 8.0 -Post Debridement Size (cm) - Width 1.2 -Post Debridement Size (cm) - Depth 0.1 -Total Square Cm 9.60 -Wound/Ulcer Outcome Not Healed -Ulcer Cleansing Rinsed/ Irrigated with Saline -Foul Odor after Cleansing No -Bioengineered Tissue No -Type of bioengineered Tissue -Expiration Date -Product Lot Number -Percent Used -Saline Lot Number -Bleeding Controlled with Pressure -Offloading No -Treatment Response Procedure Tolerated Well Pain Scale: 0-10 Numeric Is Patient Pain Free? Yes Wound debrided: Left lower extremity Wound Grade/Stage: Stage III Type of Debridement: Excisional debridement Anesthesia Used: 4% Lidocaine Solution Depth: Down to and including healthy tissue, in the subcutaneous layer Percentage of wound debrided: 100 Instrument Used: 5mm curette Tissue Removed: Slough and devitalized tissue Severity: Fat Layer Exposed Amount of bleeding with debridement: Mild Bleeding Controlled with: Pressure Patient tolerated procedure well Assessment/Plan Active Problems Wound of left lower extremity (Chronic) Post debridement/hematoma evacuation. PAD (peripheral artery disease) (Chronic) Venous insufficiency (Chronic) Delayed wound healing (Chronic) Assessment: Left lower extremity ulcer post I and D with delayed healing. Peripheral arterial disease. Delayed healing. Lower extremity with venous insufficiency. Arterial calcification Plan: Foul smell per Nurse 1 and some worsening in the wound ciurcumference noted today. Currently on Omnicef due to culture which grew Pseudomonas. However most susceptible antibiotics with drug/drug interaction / IV route. Debridement done as documented above, procedure was well-tolerated. Will switch to daily wet to dry dressing with 0.25% Acetic acid. Circaid for edema management. Increased protein intake again recommended. Elevate lower extremities when seated and in bed. Not open to following up with Vascular surgery. Scheduled to follow up with his web development consultant net month and will consider going on Xarelto. His questions were answered and he was advised to call with any further questions or concerns. Follow-up in 1 week. This note was generated with [employer] dictation software. It may contain incorrect words, spelling, and punctuation that were not noted in checking the note before signing.
== END 2018-09-13 23:59 ==
LOC: WC 09:30
PROVIDERS: Family Provider Family Medicine; PCP Family Medicine; Visit Provider Internal Medicine
DX: I73.9 Peripheral vascular disease, unspecified (principal); I87.2 Venous insufficiency (chronic) (peripheral); L97.822 Non-pressure chronic ulcer of other part of left lower leg with fat layer exposed; M79.89 Other specified soft tissue disorders
CPT/HCPCS: 11042; 15271; 29581; 87070; 87075; 87077; 87186; 87205; 99212; Q4133; G0463

== ENCOUNTER 2018-10-07 09:30 | Outpatient (RCR) | payer OTHER, SELFPAY ==
[2018-09-14 00:50] VITALS: BP 113/75; PULSE 78; RESP 16; TEMP 36.1
[2018-09-16 09:27] VITALS: BP 127/83; PULSE 86; RESP 18; TEMP 36.4; BMI 42.2
--- NOTE | 2018-09-16 12:46 | PCM.WC.PN ---
(1) Delayed wound healing Status: Chronic Current Visit: Yes Code(s): T14.8XXD - Other injury of unspecified body region, subsequent encounter (2) PAD (peripheral artery disease) Status: Chronic Current Visit: Yes Code(s): I73.9 - Peripheral vascular disease, unspecified (3) Venous insufficiency Status: Chronic Current Visit: Yes Code(s): I87.2 - Venous insufficiency (chronic) (peripheral) Type of Wound Chief Complaint: Left lower extremity ulcer - Delayed healing. History of Wound: Mr. Chauhan is a 62 year old with PMH as stated above who presented here due to delayed healing of his left lower extremity wound. He denies chills, fever, nausea, vomitting or loss of appetite. He changes dressing as advised. He has 1 more day of Bactrim for treatment of MRSA. He denies ulcer or redness. Progress of Wound: Wound appears stable cleaner today. No significant drainage. Periwound skin breakdown. - Physical Exam Vital Signs Temp Pulse Resp BP 97.5 F L 86 18 127/83 H 09/16/18 09:27 09/16/18 09:27 09/16/18 09:27 09/16/18 09:27 General: Alert, Oriented x3, Cooperative, No apparent distress HEENT: Atraumatic, Normocephalic Oral: Moist Mucosa Neck: Supple Lungs: Normal air movement Abdomen: Non Tender, Obese Extremities: No cyanosis, Edema Skin: Ulcer/ Wound Wound Measurements and Assessment WC - Nurse 1 - General Ulcer Measurement Start: 09/16/18 09:27 Freq: Status: Active Protocol: Activity Type Activity Date Activity User E-Sign Co-Sign Detail Recorded Client Recorded Date Recorded By Document 09/16/18 09:27 [facility] [id number] 09/16/18 09:35 [facility] 09/16/18 09:27 Wound Center Nurse 1 [Ulcer Assessment] 1. L LATERAL LOWER EXTREMITY -Combined with other wound No -Current Size (cm) - Length 8.4 -Current Size (cm) - Width 3.6 -Current Size (cm) - Depth 0.3 -Total Square Cm 30.24 -Date of Last Picture (Recall this 09/16/18 field) -Photo Taken Yes -Epithelialization None Present -Tunneling No -Undermining/Tunneling No -Circular Undermining No -Classification - Thickness Full Thickness without Exposed Support Structure -Exudate Amt Small -Exudate Type Serosanguineous -Wound Margin Distinct, Outline Attached -Granulation Amt Large (67-100%) -Granulation Quality Red -Slough/Fibrin Yes -Necrosis Amt Small (1-33%) -Necrotic Tissue Type Adherent Slough -Texture (Kirstie-wound Skin Appearance) Assessed Scarring -Moisture (Kirstie-wound Skin Appearance Assessed ) Dry/Scaly -Color (Kirstie-wound Skin Appearance) Assessed Erythema -Temperature (Kirstie-wound Skin No Abnormality Appearance) (Pt Warm) -Tenderness on Palpation (Kirstie-wound No Skin Appearance) -Ulcer Cleansing Rinsed/ Irrigated with Saline -Foul Odor after Cleansing No -Anesthetic Used 4% Lidocaine Solution [Edema Assessment] -Lower Limb Edema Present Yes -Left Calf (cm) 38.7 -Left Ankle (cm) 24.1 WC - Nurse 2 - General Ulcer CM Notes Start: 09/16/18 09:27 Freq: Status: Active Protocol: Activity Type Activity Date Activity User E-Sign Co-Sign Detail Recorded Client Recorded Date Recorded By Document 09/16/18 10:08 MW [id number] 09/16/18 10:15 MW 09/16/18 10:08 Wound Center Nurse 2 [Procedure/Treatment] 1. L LATERAL LOWER EXTREMITY -Time 10:09 -Correct Patient Yes -Correct Side, Site, Position Yes -Correct Procedure Yes -Procedure Performed Yes -Type of Procedure Debridement -Clinical Debridement Subcutaneous -Post Debridement Size (cm) - Length 8.3 -Post Debridement Size (cm) - Width 1.6 -Post Debridement Size (cm) - Depth 0.2 -Total Square Cm 13.28 -Wound/Ulcer Outcome Not Healed -Ulcer Cleansing Rinsed/ Irrigated with Saline -Foul Odor after Cleansing No -Bioengineered Tissue No [See Physician Procedure note for Specifics] Musculoskeletal: No Muscle Wasting Neurological: Cranial nerves II-XII grossly intact Psych/Mental Status: Normal Affect Debridement Note Post-Debridement Measurements/Treatment WC - Nurse 2 - General Ulcer CM Notes Start: 09/16/18 09:27 Freq: Status: Active Protocol: Activity Type Activity Date Activity User E-Sign Co-Sign Detail Recorded Client Recorded Date Recorded By Document 09/16/18 10:08 MW [id number] 09/16/18 10:15 MW 04/03/19 10:08 Wound Center Nurse 2 1. L LATERAL LOWER EXTREMITY -Time 10:09 -Correct Patient Yes -Correct Side, Site, Position Yes -Correct Procedure Yes -Procedure Performed Yes -Type of Procedure Debridement -Clinical Debridement Subcutaneous -Post Debridement Size (cm) - Length 8.3 -Post Debridement Size (cm) - Width 1.6 -Post Debridement Size (cm) - Depth 0.2 -Total Square Cm 13.28 -Wound/Ulcer Outcome Not Healed -Ulcer Cleansing Rinsed/ Irrigated with Saline -Foul Odor after Cleansing No -Bioengineered Tissue No Wound debrided: Left lower extremity Wound Grade/Stage: Stage III Type of Debridement: Excisional debridement Anesthesia Used: 4% Lidocaine Solution Depth: Down to and including healthy tissue, in the subcutaneous layer Percentage of wound debrided: 100 Instrument Used: 5mm curette Tissue Removed: Slough and devitalized tissue Severity: Fat Layer Exposed Amount of bleeding with debridement: Mild Bleeding Controlled with: Pressure Patient tolerated procedure well Assessment/Plan Active Problems PAD (peripheral artery disease) (Chronic) Venous insufficiency (Chronic) Delayed wound healing (Chronic) Assessment: Left lower extremity ulcer post I and D with delayed healing. Peripheral arterial disease. Delayed healing. Lower extremity with venous insufficiency. Arterial calcification Plan: Wound bed appears clean. No drainage or foul smell appreciated. Some surrounding skin breakdown. Aberrantly has been significantly wetting the gauze. Debridement done as documented above, procedure was well-tolerated. Continue daily wet to dry dressing with 0.25% Acetic acid. He however was advised to down pain and not soak the gauze. Apply damp gauze to wound surface only. Circaid for edema management. Increased protein intake again recommended. Elevate lower extremities when seated and in bed. Not open to following up with Vascular surgery. Scheduled to follow up with his metaphysicist next month and will consider going on Xarelto. His questions were answered and he was advised to call with any further questions or concerns. Follow-up in 1 week. This note was generated with [employer] software. It may contain incorrect words, spelling, and punctuation that were not noted in checking the note before signing.
--- NOTE | 2018-09-16 12:49 | PN.PCM_ITS ---
(1) Delayed wound healing Status: Chronic Current Visit: Yes Code(s): T14.8XXD - Other injury of unspecified body region, subsequent encounter (2) PAD (peripheral artery disease) Status: Chronic Current Visit: Yes Code(s): I73.9 - Peripheral vascular disease, unspecified (3) Venous insufficiency Status: Chronic Current Visit: Yes Code(s): I87.2 - Venous insufficiency (chronic) (peripheral) Type of Wound Chief Complaint: Left lower extremity ulcer - Delayed healing. History of Wound: Mr. Chauhan is a 62 year old with PMH as stated above who presented here due to delayed healing of his left lower extremity wound. He denies chills, fever, nausea, vomitting or loss of appetite. He changes dressing as advised. He has 1 more day of Bactrim for treatment of MRSA. He denies ulcer or redness. 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 No significant drainage. Periwound skin breakdown. - Physical Exam Vital Signs Temp Pulse Resp BP 97.5 F L 86 18 127/83 H 09/16/18 09:27 09/16/18 09:27 09/16/18 09:27 09/16/18 09:27 General: Alert, Oriented x3, Cooperative, No apparent distress HEENT: Atraumatic, Normocephalic Oral: Moist Mucosa Neck: Supple Lungs: Normal air movement Abdomen: Non Tender, Obese Extremities: No cyanosis, Edema Skin: Ulcer/ Wound Wound Measurements and Assessment WC - Nurse 1 - General Ulcer Measurement Start: 09/16/18 09:27 Freq: Status: Active Protocol: Activity Type Activity Date Activity User E-Sign Co-Sign Detail Recorded Client Recorded Date Recorded By Document 09/16/18 09:27 [facility] [id number] 09/16/18 09:35 [facility] 09/16/18 09:27 Wound Center Nurse 1 [Ulcer Assessment] 1. L LATERAL LOWER EXTREMITY -Combined with other wound No -Current Size (cm) - Length 8.4 -Current Size (cm) - Width 3.6 -Current Size (cm) - Depth 0.3 -Total Square Cm 30.24 -Date of Last Picture (Recall this 09/16/18 field) -Photo Taken Yes -Epithelialization None Present -Tunneling No -Undermining/Tunneling No -Circular Undermining No -Classification - Thickness Full Thickness without Exposed Support Structure -Exudate Amt Small -Exudate Type Serosanguineous -Wound Margin Distinct, Outline Attached -Granulation Amt Large (67-100%) -Granulation Quality Red -Slough/Fibrin Yes -Necrosis Amt Small (1-33%) -Necrotic Tissue Type Adherent Slough -Texture (Kirstie-wound Skin Appearance) Assessed Scarring -Moisture (Kirstie-wound Skin Appearance Assessed ) Dry/Scaly -Color (Kirstie-wound Skin Appearance) Assessed Erythema -Temperature (Kirstie-wound Skin No Abnormality Appearance) (Pt Warm) -Tenderness on Palpation (Kirstie-wound No Skin Appearance) -Ulcer Cleansing Rinsed/ Irrigated with Saline -Foul Odor after Cleansing No -Anesthetic Used 4% Lidocaine Solution [Edema Assessment] -Lower Limb Edema Present Yes -Left Calf (cm) 38.7 -Left Ankle (cm) 24.1 WC - Nurse 2 - General Ulcer CM Notes Start: 09/16/18 09:27 Freq: Status: Active Protocol: Activity Type Activity Date Activity User E-Sign Co-Sign Detail Recorded Client Recorded Date Recorded By Document 09/16/18 10:08 MW [id number] 09/16/18 10:15 MW 09/16/18 10:08 Wound Center Nurse 2 [Procedure/Treatment] 1. L LATERAL LOWER EXTREMITY -Time 10:09 -Correct Patient Yes -Correct Side, Site, Position Yes -Correct Procedure Yes -Procedure Performed Yes -Type of Procedure Debridement -Clinical Debridement Subcutaneous -Post Debridement Size (cm) - Length 8.3 -Post Debridement Size (cm) - Width 1.6 -Post Debridement Size (cm) - Depth 0.2 -Total Square Cm 13.28 -Wound/Ulcer Outcome Not Healed -Ulcer Cleansing Rinsed/ Irrigated with Saline -Foul Odor after Cleansing No -Bioengineered Tissue No [See Physician Procedure note for Specifics] Musculoskeletal: No Muscle Wasting Neurological: Cranial nerves II-XII grossly intact Psych/Mental Status: Normal Affect Debridement Note Post-Debridement Measurements/Treatment WC - Nurse 2 - General Ulcer CM Notes Start: 09/16/18 09:27 Freq: Status: Active Protocol: Activity Type Activity Date Activity User E-Sign Co-Sign Detail Recorded Client Recorded Date Recorded By Document 09/16/18 10:08 MW [id number] 09/16/18 10:15 MW 04/03/19 10:08 Wound Center Nurse 2 1. L LATERAL LOWER EXTREMITY -Time 10:09 -Correct Patient Yes -Correct Side, Site, Position Yes -Correct Procedure Yes -Procedure Performed Yes -Type of Procedure Debridement -Clinical Debridement Subcutaneous -Post Debridement Size (cm) - Length 8.3 -Post Debridement Size (cm) - Width 1.6 -Post Debridement Size (cm) - Depth 0.2 -Total Square Cm 13.28 -Wound/Ulcer Outcome Not Healed -Ulcer Cleansing Rinsed/ Irrigated with Saline -Foul Odor after Cleansing No -Bioengineered Tissue No Wound debrided: Left lower extremity Wound Grade/Stage: Stage III Type of Debridement: Excisional debridement Anesthesia Used: 4% Lidocaine Solution Depth: Down to and including healthy tissue, in the subcutaneous layer Percentage of wound debrided: 100 Instrument Used: 5mm curette Tissue Removed: Slough and devitalized tissue Severity: Fat Layer Exposed Amount of bleeding with debridement: Mild Bleeding Controlled with: Pressure Patient tolerated procedure well Assessment/Plan Active Problems PAD (peripheral artery disease) (Chronic) Venous insufficiency (Chronic) Delayed wound healing (Chronic) Assessment: Left lower extremity ulcer post I and D with delayed healing. Peripheral arterial disease. Delayed healing. Lower extremity with venous insufficiency. Arterial calcification Plan: Wound bed appears clean. No drainage or foul smell appreciated. Some surrounding skin breakdown. Aberrantly has been significantly wetting the gauze. Debridement done as documented above, procedure was well-tolerated. Continue daily wet to dry dressing with 0.25% Acetic acid. He however was advised to down pain and not soak the gauze. Apply damp gauze to wound surface only. Circaid for edema management. Increased protein intake again recommended. Elevate lower extremities when seated and in bed. Not open to following up with Vascular surgery. 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 His questions were answered and he was advised to call with any further questions or concerns. Follow-up in 1 week. This note was generated with [employer] software. It may contain incorrect words, spelling, and punctuation that were not noted in checking the note before signing.
[2018-09-23 09:32] VITALS: BP 118/85; PULSE 79; RESP 16; TEMP 36; BMI 42.2
--- NOTE | 2018-09-23 10:07 | PCM.WC.PN ---
(1) Delayed wound healing Status: Chronic Current Visit: Yes Code(s): T14.8XXD - Other injury of unspecified body region, subsequent encounter (2) PAD (peripheral artery disease) Status: Chronic Current Visit: Yes Code(s): I73.9 - Peripheral vascular disease, unspecified (3) Venous insufficiency Status: Chronic Current Visit: Yes Code(s): I87.2 - Venous insufficiency (chronic) (peripheral) Type of Wound Chief Complaint: Left lower extremity ulcer - Delayed healing. History of Wound: Mr. Chauhan is a 62 year old with PMH as stated above who presented here due to delayed healing of his left lower extremity wound. He denies chills, fever, nausea, vomitting or loss of appetite. He changes dressing as advised. He has 1 more day of Bactrim for treatment of MRSA. He denies ulcer or redness. Progress of Wound: No new concerns. Has used acetic acid over the last 2 - 3 weks due to concerns with Pseudomonasa infection. Was also on Omnicef. He denies any new concerns at this time. - Physical Exam Vital Signs Temp Pulse Resp BP 96.8 F L 79 16 118/85 H 09/23/18 09:32 09/23/18 09:32 09/23/18 09:32 09/23/18 09:32 General: Alert, Oriented x3, Cooperative, No apparent distress HEENT: Atraumatic, Normocephalic Oral: Moist Mucosa Neck: Supple Lungs: Normal air movement Abdomen: Non Tender, Obese Extremities: No cyanosis, Edema Skin: Ulcer/ Wound Wound Measurements and Assessment WC - Nurse 1 - General Ulcer Measurement Start: 09/16/18 09:27 Freq: Status: Active Protocol: Activity Type Activity Date Activity User E-Sign Co-Sign Detail Recorded Client Recorded Date Recorded By Document 09/23/18 09:32 [facility] [id number] 09/23/18 09:36 [facility] 09/23/18 09:32 Wound Center Nurse 1 [Ulcer Assessment] 1. L LATERAL LOWER EXTREMITY -Combined with other wound No -Current Size (cm) - Length 8.5 -Current Size (cm) - Width 3.9 -Current Size (cm) - Depth 0.1 -Total Square Cm 33.15 -Date of Last Picture (Recall this 09/23/18 field) -Photo Taken Yes -Epithelialization None Present -Tunneling No -Undermining/Tunneling No -Circular Undermining No -Exudate Amt Medium -Exudate Type Serosanguineous -Wound Margin Distinct, Outline Attached -Granulation Amt Large (67-100%) -Granulation Quality Red -Slough/Fibrin Yes -Necrosis Amt Small (1-33%) -Necrotic Tissue Type Adherent Slough -Texture (Kirstie-wound Skin Appearance) Assessed Scarring -Moisture (Kirstie-wound Skin Appearance Assessed ) Dry/Scaly -Color (Kirstie-wound Skin Appearance) Assessed -Temperature (Kirstie-wound Skin No Abnormality Appearance) (Pt Warm) -Tenderness on Palpation (Kirstie-wound No Skin Appearance) -Ulcer Cleansing Rinsed/ Irrigated with Saline -Foul Odor after Cleansing No -Anesthetic Used 4% Lidocaine Solution [Edema Assessment] -Lower Limb Edema Present Yes -Left Calf (cm) 38 -Left Ankle (cm) 23 WC - Nurse 2 - General Ulcer CM Notes Start: 09/16/18 09:27 Freq: Status: Active Protocol: Activity Type Activity Date Activity User E-Sign Co-Sign Detail Recorded Client Recorded Date Recorded By Document 09/23/18 09:42 MW [id number] 09/23/18 09:44 MW 09/23/18 09:42 Wound Center Nurse 2 [Procedure/Treatment] 1. L LATERAL LOWER EXTREMITY -Time 09:43 -Correct Patient Yes -Correct Side, Site, Position Yes -Correct Procedure Yes -Procedure Performed Yes -Type of Procedure Debridement -Clinical Debridement Subcutaneous -Post Debridement Size (cm) - Length 8.5 -Post Debridement Size (cm) - Width 3.8 -Post Debridement Size (cm) - Depth 0.2 -Total Square Cm 32.30 -Wound/Ulcer Outcome Not Healed -Ulcer Cleansing Rinsed/ Irrigated with Saline -Foul Odor after Cleansing No -Bioengineered Tissue No -Bleeding Controlled with Pressure -Offloading No -Treatment Response Procedure Tolerated Well [See Physician Procedure note for Specifics] Pain Scale: 0-10 Numeric [Pain] -Is Patient Pain Free? Yes Musculoskeletal: No Muscle Wasting Neurological: Cranial nerves II-XII grossly intact Psych/Mental Status: Normal Affect Debridement Note Post-Debridement Measurements/Treatment WC - Nurse 2 - General Ulcer CM Notes Start: 09/16/18 09:27 Freq: Status: Active Protocol: Activity Type Activity Date Activity User E-Sign Co-Sign Detail Recorded Client Recorded Date Recorded By Document 09/16/18 10:08 MW [id number] 09/16/18 10:15 MW Document 09/23/18 09:42 MW [id number] 09/23/18 09:44 MW 09/16/18 09/23/18 10:08 09:42 Wound Center Nurse 2 1. L LATERAL LOWER EXTREMITY -Time 10:09 09:43 -Correct Patient Yes Yes -Correct Side, Site, Position Yes Yes -Correct Procedure Yes Yes -Procedure Performed Yes Yes -Type of Procedure Debridement Debridement -Clinical Debridement Subcutaneous Subcutaneous -Post Debridement Size (cm) - Length 8.3 8.5 -Post Debridement Size (cm) - Width 1.6 3.8 -Post Debridement Size (cm) - Depth 0.2 0.2 -Total Square Cm 13.28 32.30 -Wound/Ulcer Outcome Not Healed Not Healed -Ulcer Cleansing Rinsed/ Rinsed/ Irrigated with Irrigated with Saline Saline -Foul Odor after Cleansing No No -Bioengineered Tissue No No -Bleeding Controlled with Pressure -Offloading No -Treatment Response Procedure Tolerated Well Pain Scale: 0-10 Numeric Is Patient Pain Free? Yes Wound debrided: Left Lower extremity Wound Grade/Stage: Stage III Type of Debridement: Excisional debridement Anesthesia Used: 4% Lidocaine Solution Depth: Down to and including healthy tissue, in the subcutaneous layer Percentage of wound debrided: 100 Instrument Used: 5mm curette Tissue Removed: Slough and devitalized tissue Severity: Fat Layer Exposed Amount of bleeding with debridement: Mild Bleeding Controlled with: Pressure Patient tolerated procedure well Assessment/Plan Active Problems PAD (peripheral artery disease) (Chronic) Venous insufficiency (Chronic) Delayed wound healing (Chronic) Assessment: Left lower extremity ulcer post I and D with delayed healing. Peripheral arterial disease. Delayed healing. Lower extremity with venous insufficiency. Arterial calcification Plan: Very good granulation tissue and wound looks much healthier. Increased circumference due to skin break down noted last week. Debridement done as documented above, procedure was well tolerated. I beleive it would be okay to switch to pomogran at this time with adaptic over top. 3M wrap for edema management. Follow up on Friday for a nurse visit. Will however try out on Epiifx now as he has a better wound base at this time. Initially did really well on Grafix prime but ? developed a reaction to the product after 6 applications. Subsequently became infected with pseudomonas which further caused worsening of his wound. Increased protein intake again recommended. Elevate lower extremities when seated and in bed. Not open to following up with Vascular surgery. 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 His questions were answered and he was advised to call with any further questions or concerns. Follow-up in 1 week with me. This note was generated with [employer] dictation software. It may contain incorrect words, spelling, and punctuation that were not noted in checking the note before signing.
--- NOTE | 2018-09-23 10:11 | PN.PCM_ITS ---
(1) Delayed wound healing Status: Chronic Current Visit: Yes Code(s): T14.8XXD - Other injury of unspecified body region, subsequent encounter (2) PAD (peripheral artery disease) Status: Chronic Current Visit: Yes Code(s): I73.9 - Peripheral vascular disease, unspecified (3) Venous insufficiency Status: Chronic Current Visit: Yes Code(s): I87.2 - Venous insufficiency (chronic) (peripheral) Type of Wound Chief Complaint: Left lower extremity ulcer - Delayed healing. History of Wound: Mr. Chauhan is a 62 year old with PMH as stated above who presented here due to delayed healing of his left lower extremity wound. He denies chills, fever, nausea, vomitting or loss of appetite. He changes dressing as advised. He has 1 more day of Bactrim for treatment of MRSA. He denies ulcer or redness. Progress of Wound: No new concerns. Has used acetic acid over the last 2 - 3 weks due to concerns with Pseudomonasa infection. Was also on Omnicef. He denies any new concerns at this time. - Physical Exam Vital Signs Temp Pulse Resp BP 96.8 F L 79 16 118/85 H 09/23/18 09:32 09/23/18 09:32 09/23/18 09:32 09/23/18 09:32 General: Alert, Oriented x3, Cooperative, No apparent distress HEENT: Atraumatic, Normocephalic Oral: Moist Mucosa Neck: Supple Lungs: Normal air movement Abdomen: Non Tender, Obese Extremities: No cyanosis, Edema Skin: Ulcer/ Wound Wound Measurements and Assessment WC - Nurse 1 - General Ulcer Measurement Start: 09/16/18 09:27 Freq: Status: Active Protocol: Activity Type Activity Date Activity User E-Sign Co-Sign Detail Recorded Client Recorded Date Recorded By Document 09/23/18 09:32 [facility] [id number] 09/23/18 09:36 [facility] 09/23/18 09:32 Wound Center Nurse 1 [Ulcer Assessment] 1. L LATERAL LOWER EXTREMITY -Combined with other wound No -Current Size (cm) - Length 8.5 -Current Size (cm) - Width 3.9 -Current Size (cm) - Depth 0.1 -Total Square Cm 33.15 -Date of Last Picture (Recall this 09/23/18 field) -Photo Taken Yes -Epithelialization None Present -Tunneling No -Undermining/Tunneling No -Circular Undermining No -Exudate Amt Medium -Exudate Type Serosanguineous -Wound Margin Distinct, Outline Attached -Granulation Amt Large (67-100%) -Granulation Quality Red -Slough/Fibrin Yes -Necrosis Amt Small (1-33%) -Necrotic Tissue Type Adherent Slough -Texture (Kirstie-wound Skin Appearance) Assessed Scarring -Moisture (Kirstie-wound Skin Appearance Assessed ) Dry/Scaly -Color (Kirstie-wound Skin Appearance) Assessed -Temperature (Kirstie-wound Skin No Abnormality Appearance) (Pt Warm) -Tenderness on Palpation (Kirstie-wound No Skin Appearance) -Ulcer Cleansing Rinsed/ Irrigated with Saline -Foul Odor after Cleansing No -Anesthetic Used 4% Lidocaine Solution [Edema Assessment] -Lower Limb Edema Present Yes -Left Calf (cm) 38 -Left Ankle (cm) 23 WC - Nurse 2 - General Ulcer CM Notes Start: 09/16/18 09:27 Freq: Status: Active Protocol: Activity Type Activity Date Activity User E-Sign Co-Sign Detail Recorded Client Recorded Date Recorded By Document 09/23/18 09:42 MW [id number] 09/23/18 09:44 MW 09/23/18 09:42 Wound Center Nurse 2 [Procedure/Treatment] 1. L LATERAL LOWER EXTREMITY -Time 09:43 -Correct Patient Yes -Correct Side, Site, Position Yes -Correct Procedure Yes -Procedure Performed Yes -Type of Procedure Debridement -Clinical Debridement Subcutaneous -Post Debridement Size (cm) - Length 8.5 -Post Debridement Size (cm) - Width 3.8 -Post Debridement Size (cm) - Depth 0.2 -Total Square Cm 32.30 -Wound/Ulcer Outcome Not Healed -Ulcer Cleansing Rinsed/ Irrigated with Saline -Foul Odor after Cleansing No -Bioengineered Tissue No -Bleeding Controlled with Pressure -Offloading No -Treatment Response Procedure Tolerated Well [See Physician Procedure note for Specifics] Pain Scale: 0-10 Numeric [Pain] -Is Patient Pain Free? Yes Musculoskeletal: No Muscle Wasting Neurological: Cranial nerves II-XII grossly intact Psych/Mental Status: Normal Affect Debridement Note Post-Debridement Measurements/Treatment WC - Nurse 2 - General Ulcer CM Notes Start: 09/16/18 09:27 Freq: Status: Active Protocol: Activity Type Activity Date Activity User E-Sign Co-Sign Detail Recorded Client Recorded Date Recorded By Document 09/16/18 10:08 MW [id number] 09/16/18 10:15 MW Document 09/23/18 09:42 MW [id number] 09/23/18 09:44 MW 09/16/18 09/23/18 10:08 09:42 Wound Center Nurse 2 1. L LATERAL LOWER EXTREMITY -Time 10:09 09:43 -Correct Patient Yes Yes -Correct Side, Site, Position Yes Yes -Correct Procedure Yes Yes -Procedure Performed Yes Yes -Type of Procedure Debridement Debridement -Clinical Debridement Subcutaneous Subcutaneous -Post Debridement Size (cm) - Length 8.3 8.5 -Post Debridement Size (cm) - Width 1.6 3.8 -Post Debridement Size (cm) - Depth 0.2 0.2 -Total Square Cm 13.28 32.30 -Wound/Ulcer Outcome Not Healed Not Healed -Ulcer Cleansing Rinsed/ Rinsed/ Irrigated with Irrigated with Saline Saline -Foul Odor after Cleansing No No -Bioengineered Tissue No No -Bleeding Controlled with Pressure -Offloading No -Treatment Response Procedure Tolerated Well Pain Scale: 0-10 Numeric Is Patient Pain Free? Yes Wound debrided: Left Lower extremity Wound Grade/Stage: Stage III Type of Debridement: Excisional debridement Anesthesia Used: 4% Lidocaine Solution Depth: Down to and including healthy tissue, in the subcutaneous layer Percentage of wound debrided: 100 Instrument Used: 5mm curette Tissue Removed: Slough and devitalized tissue Severity: Fat Layer Exposed Amount of bleeding with debridement: Mild Bleeding Controlled with: Pressure Patient tolerated procedure well Assessment/Plan Active Problems PAD (peripheral artery disease) (Chronic) Venous insufficiency (Chronic) Delayed wound healing (Chronic) Assessment: Left lower extremity ulcer post I and D with delayed healing. Peripheral arterial disease. Delayed healing. Lower extremity with venous insufficiency. Arterial calcification Plan: Very good granulation tissue and wound looks much healthier. Increased circumference due to skin break down noted last week. Debridement done as documented above, procedure was well tolerated. I beleive it would be okay to switch to pomogran at this time with adaptic over top. 3M wrap for edema management. Follow up on Friday for a nurse visit. Will however try out on Epiifx now as he has a better wound base at this time. Initially did really well on Grafix prime but ? developed a reaction to the product after 6 applications. Subsequently became infected with pseudomonas which further caused worsening of his wound. Increased protein intake again recommended. Elevate lower extremities when seated and in bed. Not open to following up with Vascular surgery. 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 His questions were answered and he was advised to call with any further questions or concerns. Follow-up in 1 week with me. This note was generated with [employer] dictation software. It may contain incorrect words, spelling, and punctuation that were not noted in checking the note before signing.
[2018-09-25 09:43] VITALS: BP 127/78; PULSE 75; RESP 18; TEMP 35.5; BMI 42.2
[2018-09-30 09:29] VITALS: BP 116/72; PULSE 81; RESP 18; TEMP 36.5; BMI 42.2
--- NOTE | 2018-09-30 09:56 | PCM.WC.PN ---
(1) Delayed wound healing Status: Chronic Current Visit: Yes Code(s): T14.8XXD - Other injury of unspecified body region, subsequent encounter (2) PAD (peripheral artery disease) Status: Chronic Current Visit: Yes Code(s): I73.9 - Peripheral vascular disease, unspecified (3) Venous insufficiency Status: Chronic Current Visit: Yes Code(s): I87.2 - Venous insufficiency (chronic) (peripheral) Type of Wound Chief Complaint: Left lower extremity ulcer - Delayed healing. History of Wound: Mr. Chauhan is a 62 year old with PMH as stated above who presented here due to delayed healing of his left lower extremity wound. He denies chills, fever, nausea, vomitting or loss of appetite. He changes dressing as advised. He has 1 more day of Bactrim for treatment of MRSA. He denies ulcer or redness. Progress of Wound: Stable. No new concerns at this time. - Physical Exam Vital Signs Temp Pulse Resp BP 97.7 F L 81 18 116/72 09/30/18 09:29 09/30/18 09:29 09/30/18 09:29 09/30/18 09:29 General: Alert, Oriented x3, Cooperative, No apparent distress HEENT: Atraumatic, Normocephalic Oral: Moist Mucosa Neck: Supple Lungs: Normal air movement Abdomen: Non Tender, Obese Extremities: No cyanosis, Edema Skin: Ulcer/ Wound Wound Measurements and Assessment WC - Nurse 1 - General Ulcer Measurement Start: 09/16/18 09:27 Freq: Status: Active Protocol: Activity Type Activity Date Activity User E-Sign Co-Sign Detail Recorded Client Recorded Date Recorded By Document 09/30/18 09:29 [facility] [id number] 09/30/18 09:33 [facility] 09/30/18 09:29 Wound Center Nurse 1 [Ulcer Assessment] 1. L LATERAL LOWER EXTREMITY -Combined with other wound No -Current Size (cm) - Length 8.4 -Current Size (cm) - Width 3.5 -Current Size (cm) - Depth 0.1 -Total Square Cm 29.40 -Photo Taken No -Epithelialization None Present -Tunneling No -Undermining/Tunneling No -Circular Undermining No -Classification - Thickness Full Thickness without Exposed Support Structure -Exudate Amt Medium -Exudate Type Serosanguineous -Wound Margin Distinct, Outline Attached -Granulation Amt Small (1-33%) -Granulation Quality Red -Slough/Fibrin Yes -Necrosis Amt Large (67-100%) -Necrotic Tissue Type Adherent Slough -Texture (Kirstie-wound Skin Appearance) Assessed Scarring -Moisture (Kirstie-wound Skin Appearance Assessed ) Dry/Scaly -Color (Kirstie-wound Skin Appearance) Assessed Erythema -Temperature (Kirstie-wound Skin No Abnormality Appearance) (Pt Warm) -Tenderness on Palpation (Kirstie-wound No Skin Appearance) -Ulcer Cleansing Wound Cleanser -Foul Odor after Cleansing No -Anesthetic Used 4% Lidocaine Solution [Edema Assessment] -Lower Limb Edema Present Yes -Left Calf (cm) 36.2 -Left Ankle (cm) 23 WC - Nurse 2 - General Ulcer CM Notes Start: 09/16/18 09:27 Freq: Status: Active Protocol: Activity Type Activity Date Activity User E-Sign Co-Sign Detail Recorded Client Recorded Date Recorded By Document 09/30/18 09:53 MW [id number] 09/30/18 09:55 MW 09/30/18 09:53 Wound Center Nurse 2 [Procedure/Treatment] 1. L LATERAL LOWER EXTREMITY -Time 09:53 -Correct Patient Yes -Correct Side, Site, Position Yes -Correct Procedure Yes -Procedure Performed Yes -Type of Procedure Debridement -Clinical Debridement Subcutaneous -Post Debridement Size (cm) - Length 8.5 -Post Debridement Size (cm) - Width 3.5 -Post Debridement Size (cm) - Depth 0.2 -Total Square Cm 29.75 -Wound/Ulcer Outcome Not Healed -Ulcer Cleansing Rinsed/ Irrigated with Saline -Foul Odor after Cleansing No -Bioengineered Tissue Yes -Type of bioengineered Tissue EPIFIX -Expiration Date 01/14/23 -Product Lot Number [id number] -Percent Used 100 -Saline Lot Number [id number] -Bleeding Controlled with Pressure -Offloading No -Treatment Response Procedure Tolerated Well [See Physician Procedure note for Specifics] Pain Scale: 0-10 Numeric [Pain] -Is Patient Pain Free? Yes Musculoskeletal: No Muscle Wasting Neurological: Cranial nerves II-XII grossly intact Psych/Mental Status: Normal Affect Debridement Note Post-Debridement Measurements/Treatment WC - Nurse 2 - General Ulcer CM Notes Start: 09/16/18 09:27 Freq: Status: Active Protocol: Activity Type Activity Date Activity User E-Sign Co-Sign Detail Recorded Client Recorded Date Recorded By Document 09/16/18 10:08 MW [id number] 09/16/18 10:15 MW Document 09/23/18 09:42 MW [id number] 09/23/18 09:44 MW Document 09/30/18 09:53 MW [id number] 09/30/18 09:55 MW 09/16/18 09/23/18 09/30/18 10:08 09:42 09:53 Wound Center Nurse 2 1. L LATERAL LOWER EXTREMITY -Time 10:09 09:43 09:53 -Correct Patient Yes Yes Yes -Correct Side, Site, Position Yes Yes Yes -Correct Procedure Yes Yes Yes -Procedure Performed Yes Yes Yes -Type of Procedure Debridement Debridement Debridement -Clinical Debridement Subcutaneous Subcutaneous Subcutaneous -Post Debridement Size (cm) - Length 8.3 8.5 8.5 -Post Debridement Size (cm) - Width 1.6 3.8 3.5 -Post Debridement Size (cm) - Depth 0.2 0.2 0.2 -Total Square Cm 13.28 32.30 29.75 -Wound/Ulcer Outcome Not Healed Not Healed Not Healed -Ulcer Cleansing Rinsed/ Rinsed/ Rinsed/ Irrigated with Irrigated with Irrigated with Saline Saline Saline -Foul Odor after Cleansing No No No -Bioengineered Tissue No No Yes -Type of bioengineered Tissue EPIFIX -Expiration Date 01/14/23 -Product Lot Number [id number] -Percent Used 100 -Saline Lot Number [id number] -Bleeding Controlled with Pressure Pressure -Offloading No No -Treatment Response Procedure Procedure Tolerated Well Tolerated Well Pain Scale: 0-10 Numeric Is Patient Pain Free? Yes Yes Wound debrided: Left lower extremity Wound Grade/Stage: Stage III Type of Debridement: Excisional debridement Anesthesia Used: 4% Lidocaine Solution Depth: Down to and including healthy tissue, in the subcutaneous layer Percentage of wound debrided: 100 Instrument Used: 5mm curette Tissue Removed: Slough and devitalized tissue Severity: Fat Layer Exposed Amount of bleeding with debridement: Mild Bleeding Controlled with: Pressure Patient tolerated procedure well Assessment/Plan Active Problems PAD (peripheral artery disease) (Chronic) Venous insufficiency (Chronic) Delayed wound healing (Chronic) Assessment: Left lower extremity ulcer post I and D with delayed healing. Peripheral arterial disease. Delayed healing. Lower extremity with venous insufficiency. Arterial calcification Plan: Stable wound. No new concerns at this time. Now approved for Epifix. Debridement done as documented above, procedure was well tolerated. Initial application of Epifix done using 100% of product. Adaptic and guaze over top. Leave in place x 1 week. Will definitely continue to require advanced wound care products such as Epifix. Initilally did well with traditional wound care product however plateaued after a while. Switched to Grafix and again did well however seemed to have developed a ? reaction and subsequent infection necessitating need to revert to acetic acid solution and then Pomogran. 3M wraps for edema management. Elevate lower extremities when seated and in bed. Not open to following up with Vascular surgery. Scheduled to follow up with his marine equipment research engineer next month and will consider going on Xarelto. Optimize nutrition. Continue protein supplements. His questions were answered and he was advised to call with any further questions or concerns. Follow-up in 1 week with me. This note was generated with [employer] dictation software. It may contain incorrect words, spelling, and punctuation that were not noted in checking the note before signing.
--- NOTE | 2018-09-30 10:05 | PN.PCM_ITS ---
(1) Delayed wound healing Status: Chronic Current Visit: Yes Code(s): T14.8XXD - Other injury of unspecified body region, subsequent encounter (2) PAD (peripheral artery disease) Status: Chronic Current Visit: Yes Code(s): I73.9 - Peripheral vascular disease, unspecified (3) Venous insufficiency Status: Chronic Current Visit: Yes Code(s): I87.2 - Venous insufficiency (chronic) (peripheral) Type of Wound Chief Complaint: Left lower extremity ulcer - Delayed healing. History of Wound: Mr. Chauhan is a 62 year old with PMH as stated above who presented here due to delayed healing of his left lower extremity wound. He denies chills, fever, nausea, vomitting or loss of appetite. He changes dressing as advised. He has 1 more day of Bactrim for treatment of MRSA. He denies ulcer or redness. Progress of Wound: Stable. No new concerns at this time. - Physical Exam Vital Signs Temp Pulse Resp BP 97.7 F L 81 18 116/72 09/30/18 09:29 09/30/18 09:29 09/30/18 09:29 09/30/18 09:29 General: Alert, Oriented x3, Cooperative, No apparent distress HEENT: Atraumatic, Normocephalic Oral: Moist Mucosa Neck: Supple Lungs: Normal air movement Abdomen: Non Tender, Obese Extremities: No cyanosis, Edema Skin: Ulcer/ Wound Wound Measurements and Assessment WC - Nurse 1 - General Ulcer Measurement Start: 09/16/18 09:27 Freq: Status: Active Protocol: Activity Type Activity Date Activity User E-Sign Co-Sign Detail Recorded Client Recorded Date Recorded By Document 09/30/18 09:29 [facility] [id number] 09/30/18 09:33 [facility] 09/30/18 09:29 Wound Center Nurse 1 [Ulcer Assessment] 1. L LATERAL LOWER EXTREMITY -Combined with other wound No -Current Size (cm) - Length 8.4 -Current Size (cm) - Width 3.5 -Current Size (cm) - Depth 0.1 -Total Square Cm 29.40 -Photo Taken No -Epithelialization None Present -Tunneling No -Undermining/Tunneling No -Circular Undermining No -Classification - Thickness Full Thickness without Exposed Support Structure -Exudate Amt Medium -Exudate Type Serosanguineous -Wound Margin Distinct, Outline Attached -Granulation Amt Small (1-33%) -Granulation Quality Red -Slough/Fibrin Yes -Necrosis Amt Large (67-100%) -Necrotic Tissue Type Adherent Slough -Texture (Kirstie-wound Skin Appearance) Assessed Scarring -Moisture (Kirstie-wound Skin Appearance Assessed ) Dry/Scaly -Color (Kirstie-wound Skin Appearance) Assessed Erythema -Temperature (Kirstie-wound Skin No Abnormality Appearance) (Pt Warm) -Tenderness on Palpation (Kirstie-wound No Skin Appearance) -Ulcer Cleansing Wound Cleanser -Foul Odor after Cleansing No -Anesthetic Used 4% Lidocaine Solution [Edema Assessment] -Lower Limb Edema Present Yes -Left Calf (cm) 36.2 -Left Ankle (cm) 23 WC - Nurse 2 - General Ulcer CM Notes Start: 09/16/18 09:27 Freq: Status: Active Protocol: Activity Type Activity Date Activity User E-Sign Co-Sign Detail Recorded Client Recorded Date Recorded By Document 09/30/18 09:53 MW [id number] 09/30/18 09:55 MW 09/30/18 09:53 Wound Center Nurse 2 [Procedure/Treatment] 1. L LATERAL LOWER EXTREMITY -Time 09:53 -Correct Patient Yes -Correct Side, Site, Position Yes -Correct Procedure Yes -Procedure Performed Yes -Type of Procedure Debridement -Clinical Debridement Subcutaneous -Post Debridement Size (cm) - Length 8.5 -Post Debridement Size (cm) - Width 3.5 -Post Debridement Size (cm) - Depth 0.2 -Total Square Cm 29.75 -Wound/Ulcer Outcome Not Healed -Ulcer Cleansing Rinsed/ Irrigated with Saline -Foul Odor after Cleansing No -Bioengineered Tissue Yes -Type of bioengineered Tissue EPIFIX -Expiration Date 01/14/23 -Product Lot Number [id number] -Percent Used 100 -Saline Lot Number [id number] -Bleeding Controlled with Pressure -Offloading No -Treatment Response Procedure Tolerated Well [See Physician Procedure note for Specifics] Pain Scale: 0-10 Numeric [Pain] -Is Patient Pain Free? Yes Musculoskeletal: No Muscle Wasting Neurological: Cranial nerves II-XII grossly intact Psych/Mental Status: Normal Affect Debridement Note Post-Debridement Measurements/Treatment WC - Nurse 2 - General Ulcer CM Notes Start: 09/16/18 09:27 Freq: Status: Active Protocol: Activity Type Activity Date Activity User E-Sign Co-Sign Detail Recorded Client Recorded Date Recorded By Document 09/16/18 10:08 MW [id number] 09/16/18 10:15 MW Document 09/23/18 09:42 MW [id number] 09/23/18 09:44 MW Document 09/30/18 09:53 MW [id number] 09/30/18 09:55 MW 09/16/18 09/23/18 09/30/18 10:08 09:42 09:53 Wound Center Nurse 2 1. L LATERAL LOWER EXTREMITY -Time 10:09 09:43 09:53 -Correct Patient Yes Yes Yes -Correct Side, Site, Position Yes Yes Yes -Correct Procedure Yes Yes Yes -Procedure Performed Yes Yes Yes -Type of Procedure Debridement Debridement Debridement -Clinical Debridement Subcutaneous Subcutaneous Subcutaneous -Post Debridement Size (cm) - Length 8.3 8.5 8.5 -Post Debridement Size (cm) - Width 1.6 3.8 3.5 -Post Debridement Size (cm) - Depth 0.2 0.2 0.2 -Total Square Cm 13.28 32.30 29.75 -Wound/Ulcer Outcome Not Healed Not Healed Not Healed -Ulcer Cleansing Rinsed/ Rinsed/ Rinsed/ Irrigated with Irrigated with Irrigated with Saline Saline Saline -Foul Odor after Cleansing No No No -Bioengineered Tissue No No Yes -Type of bioengineered Tissue EPIFIX -Expiration Date 01/14/23 -Product Lot Number [id number] -Percent Used 100 -Saline Lot Number [id number] -Bleeding Controlled with Pressure Pressure -Offloading No No -Treatment Response Procedure Procedure Tolerated Well Tolerated Well Pain Scale: 0-10 Numeric Is Patient Pain Free? Yes Yes Wound debrided: Left lower extremity Wound Grade/Stage: Stage III Type of Debridement: Excisional debridement Anesthesia Used: 4% Lidocaine Solution Depth: Down to and including healthy tissue, in the subcutaneous layer Percentage of wound debrided: 100 Instrument Used: 5mm curette Tissue Removed: Slough and devitalized tissue Severity: Fat Layer Exposed Amount of bleeding with debridement: Mild Bleeding Controlled with: Pressure Patient tolerated procedure well Assessment/Plan Active Problems PAD (peripheral artery disease) (Chronic) Venous insufficiency (Chronic) Delayed wound healing (Chronic) Assessment: Left lower extremity ulcer post I and D with delayed healing. Peripheral arterial disease. Delayed healing. Lower extremity with venous insufficiency. Arterial calcification Plan: Stable wound. No new concerns at this time. Now approved for Epifix. Debridement done as documented above, procedure was well tolerated. Initial application of Epifix done using 100% of product. Adaptic and guaze over top. Leave in place x 1 week. Will definitely continue to require advanced wound care products such as Epifix. Initilally did well with traditional wound care product however plateaued after a while. Switched to Grafix and again did well however seemed to have developed a ? reaction and subsequent infection necessitating need to revert to acetic acid solution and then Pomogran. 3M wraps for edema management. Elevate lower extremities when seated and in bed. Not open to following up with Vascular surgery. Scheduled to follow up with his cushion cover inspector next month and will consider going on Xarelto. Optimize nutrition. Continue protein supplements. His questions were answered and he was advised to call with any further questions or concerns. Follow-up in 1 week with me. This note was generated with [employer] dictation software. It may contain incorrect words, spelling, and punctuation that were not noted in checking the note before signing.
[2018-10-07 09:56] VITALS: BP 140/75; PULSE 110; RESP 18; TEMP 36.6; BMI 42.2
--- NOTE | 2018-10-07 11:06 | PN.PCM_ITS ---
(1) Delayed wound healing Status: Chronic Current Visit: Yes Code(s): T14.8XXD - Other injury of unspecified body region, subsequent encounter (2) PAD (peripheral artery disease) Status: Chronic Current Visit: Yes Code(s): I73.9 - Peripheral vascular disease, unspecified (3) Venous insufficiency Status: Chronic Current Visit: Yes Code(s): I87.2 - Venous insufficiency (chronic) (peripheral) Type of Wound Chief Complaint: Left lower extremity ulcer - Delayed healing. History of Wound: Mr. Chauhan is a 62 year old with PMH as stated above who presented here due to delayed healing of his left lower extremity wound. He denies chills, fever, nausea, vomitting or loss of appetite. He changes dressing as advised. He has 1 more day of Bactrim for treatment of MRSA. He denies ulcer or redness. Progress of Wound: Stable. No new concerns at this time. Has had 1 application of epifix. - Physical Exam Vital Signs Temp Pulse Resp BP 97.8 F 110 H 18 140/75 H 10/07/18 09:56 10/07/18 09:56 10/07/18 09:56 10/07/18 09:56 General: Alert, Oriented x3, Cooperative, No apparent distress HEENT: Atraumatic, Normocephalic Oral: Moist Mucosa Neck: Supple Lungs: Normal air movement Extremities: No cyanosis Skin: Ulcer/ Wound Wound Measurements and Assessment WC - Nurse 1 - General Ulcer Measurement Start: 09/16/18 09:27 Freq: Status: Active Protocol: Activity Type Activity Date Activity User E-Sign Co-Sign Detail Recorded Client Recorded Date Recorded By Document 10/07/18 09:56 MW [id number] 10/07/18 09:58 MW 10/07/18 09:56 Wound Center Nurse 1 [Ulcer Assessment] 1. L LATERAL LOWER EXTREMITY -Combined with other wound No -Current Size (cm) - Length 8.0 -Current Size (cm) - Width 3.0 -Current Size (cm) - Depth 0.1 -Total Square Cm 24.00 -Photo Taken No -Tunneling No -Undermining/Tunneling No -Circular Undermining No -Exudate Amt Medium -Exudate Type Yellow/Green -Wound Margin Flat & Intact -Granulation Amt Medium (34-66%) -Granulation Quality [place] -Slough/Fibrin Yes -Necrosis Amt Small (1-33%) -Necrotic Tissue Type Adherent Slough -Structure Exposed N/A -Texture (Kirstie-wound Skin Appearance) Assessed Localized Edema Scarring -Moisture (Kirstie-wound Skin Appearance Assessed ) Dry/Scaly -Color (Kirstie-wound Skin Appearance) Assessed -Temperature (Kirstie-wound Skin No Abnormality Appearance) (Pt Warm) -Tenderness on Palpation (Kirstie-wound No Skin Appearance) -Ulcer Cleansing soap and water -Foul Odor after Cleansing No -Anesthetic Used 4% Lidocaine Solution [Edema Assessment] -Lower Limb Edema Present Yes -Left Calf (cm) 38.0 -Left Ankle (cm) 23.9 WC - Nurse 2 - General Ulcer CM Notes Start: 09/16/18 09:27 Freq: Status: Active Protocol: Activity Type Activity Date Activity User E-Sign Co-Sign Detail Recorded Client Recorded Date Recorded By Document 10/07/18 10:03 MW [id number] 10/07/18 10:16 MW 10/07/18 10:03 Wound Center Nurse 2 [Procedure/Treatment] 1. L LATERAL LOWER EXTREMITY -Time 10:06 -Correct Patient Yes -Correct Side, Site, Position Yes -Correct Procedure Yes -Procedure Performed Yes -Type of Procedure Debridement -Clinical Debridement Subcutaneous -Post Debridement Size (cm) - Length 8.0 -Post Debridement Size (cm) - Width 3.0 -Post Debridement Size (cm) - Depth 0.1 -Total Square Cm 24.00 -Wound/Ulcer Outcome Not Healed -Ulcer Cleansing Rinsed/ Irrigated with Saline -Foul Odor after Cleansing No -Bioengineered Tissue Yes -Type of bioengineered Tissue EPIFIX -Expiration Date 01/14/23 -Product Lot Number [id number] -Percent Used 100 -Saline Lot Number [id number] -Bleeding Controlled with Pressure -Offloading No -Treatment Response Procedure Tolerated Well [See Physician Procedure note for Specifics] Pain Scale: 0-10 Numeric [Pain] -Is Patient Pain Free? Yes Musculoskeletal: No Muscle Wasting Neurological: Cranial nerves II-XII grossly intact Psych/Mental Status: Normal Affect Debridement Note Post-Debridement Measurements/Treatment WC - Nurse 2 - General Ulcer CM Notes Start: 09/16/18 09:27 Freq: Status: Active Protocol: Activity Type Activity Date Activity User E-Sign Co-Sign Detail Recorded Client Recorded Date Recorded By Document 09/16/18 10:08 MW [id number] 09/16/18 10:15 MW Document 09/23/18 09:42 MW [id number] 09/23/18 09:44 MW Document 09/30/18 09:53 MW [id number] 09/30/18 09:55 MW Document 10/07/18 10:03 MW [id number] 10/07/18 10:16 MW 09/16/18 09/23/18 09/30/18 10:08 09:42 09:53 Wound Center Nurse 2 1. L LATERAL LOWER EXTREMITY -Time 10:09 09:43 09:53 -Correct Patient Yes Yes Yes -Correct Side, Site, Position Yes Yes Yes -Correct Procedure Yes Yes Yes -Procedure Performed Yes Yes Yes -Type of Procedure Debridement Debridement Debridement -Clinical Debridement Subcutaneous Subcutaneous Subcutaneous -Post Debridement Size (cm) - Length 8.3 8.5 8.5 -Post Debridement Size (cm) - Width 1.6 3.8 3.5 -Post Debridement Size (cm) - Depth 0.2 0.2 0.2 -Total Square Cm 13.28 32.30 29.75 -Wound/Ulcer Outcome Not Healed Not Healed Not Healed -Ulcer Cleansing Rinsed/ Rinsed/ Rinsed/ Irrigated with Irrigated with Irrigated with Saline Saline Saline -Foul Odor after Cleansing No No No -Bioengineered Tissue No No Yes -Type of bioengineered Tissue EPIFIX -Expiration Date 01/14/23 -Product Lot Number [id number] -Percent Used 100 -Saline Lot Number [id number] -Bleeding Controlled with Pressure Pressure -Offloading No No -Treatment Response Procedure Procedure Tolerated Well Tolerated Well Pain Scale: 0-10 Numeric Is Patient Pain Free? Yes Yes 10/07/18 10:03 Wound Center Nurse 2 1. L LATERAL LOWER EXTREMITY -Time 10:06 -Correct Patient Yes -Correct Side, Site, Position Yes -Correct Procedure Yes -Procedure Performed Yes -Type of Procedure Debridement -Clinical Debridement Subcutaneous -Post Debridement Size (cm) - Length 8.0 -Post Debridement Size (cm) - Width 3.0 -Post Debridement Size (cm) - Depth 0.1 -Total Square Cm 24.00 -Wound/Ulcer Outcome Not Healed -Ulcer Cleansing Rinsed/ Irrigated with Saline -Foul Odor after Cleansing No -Bioengineered Tissue Yes -Type of bioengineered Tissue EPIFIX -Expiration Date 01/14/23 -Product Lot Number [id number] -Percent Used 100 -Saline Lot Number [id number] -Bleeding Controlled with Pressure -Offloading No -Treatment Response Procedure Tolerated Well Pain Scale: 0-10 Numeric Is Patient Pain Free? Yes Wound debrided: Left lower extremity Wound Grade/Stage: Stage III Type of Debridement: Excisional debridement Anesthesia Used: 4% Lidocaine Solution Depth: Down to and including healthy tissue, in the subcutaneous layer Percentage of wound debrided: 100 Instrument Used: 5mm curette Tissue Removed: Slough and devitalized tissue Severity: Fat Layer Exposed Amount of bleeding with debridement: Mild Bleeding Controlled with: Pressure Patient tolerated procedure well Assessment/Plan Active Problems PAD (peripheral artery disease) (Chronic) Venous insufficiency (Chronic) Delayed wound healing (Chronic) Assessment: Left lower extremity ulcer post I and D with delayed healing. Perip heral arterial disease. Delayed healing. Lower extremity with venous insufficiency. Arterial calcification Plan: Improving. No new concerns at this time. Debridement done as documented above, procedure was well tolerated. 2nd application of Epifix done using 100% of product. Adaptic and guaze over top. Leave in place x 1 week. Will definitely continue to require advanced wound care products such as Epifix. Initilally did well with traditional wound care product however plateaued after a while. Switched to Grafix and again did well however seemed to have developed a ? reaction and subsequent infection necessitating need to revert to acetic acid solution and then Pomogran. 3M wraps for edema management. Elevate lower extremities when seated and in bed. Not open to following up with Vascular surgery. Scheduled to follow up with his clinical molecular geneticist next month and will consider going on Xarelto. Optimize nutrition. Continue protein supplements. His questions were answered and he was advised to call with any further questions or concerns. Follow-up in 1 week with me. This note was generated with [email or web address] software. It may contain incorrect words, spelling, and punctuation that were not noted in checking the note before signing.
== END 2018-10-13 23:59 ==
LOC: WC 09:30
PROVIDERS: Family Provider Family Medicine; PCP Family Medicine; Visit Provider Internal Medicine
DX: I73.9 Peripheral vascular disease, unspecified (principal); I87.2 Venous insufficiency (chronic) (peripheral); Z86.14 Personal history of Methicillin resistant Staphylococcus aureus infection; L97.822 Non-pressure chronic ulcer of other part of left lower leg with fat layer exposed
CPT/HCPCS: 11042; 11045; 15271; 29581; 99213; Q4186; G0463

== ENCOUNTER 2018-11-13 11:30 | Outpatient (RCR) | payer OTHER, SELFPAY ==
[2018-10-14 00:59] VITALS: BP 140/75; PULSE 110; RESP 18; TEMP 36.6
[2018-10-14 09:32] VITALS: BP 133/93; PULSE 88; RESP 18; TEMP 36.1; BMI 42.2
--- NOTE | 2018-10-14 10:08 | PCM.WC.PN ---
(1) Delayed wound healing Status: Chronic Current Visit: Yes Code(s): T14.8XXD - Other injury of unspecified body region, subsequent encounter (2) PAD (peripheral artery disease) Status: Chronic Current Visit: Yes Code(s): I73.9 - Peripheral vascular disease, unspecified (3) Venous insufficiency Status: Chronic Current Visit: Yes Code(s): I87.2 - Venous insufficiency (chronic) (peripheral) (4) Wound of left lower extremity Status: Chronic Current Visit: Yes Code(s): S81.802A - Unspecified open wound, left lower leg, initial encounter Comment: Post debridement/hematoma evacuation. Type of Wound Chief Complaint: Left lower extremity ulcer - Delayed healing. History of Wound: Mr. Chauhan is a 62 year old with PMH as stated above who presented here due to delayed healing of his left lower extremity wound. He denies chills, fever, nausea, vomitting or loss of appetite. He changes dressing as advised. He has 1 more day of Bactrim for treatment of MRSA. He denies ulcer or redness. Progress of Wound: Stable. No new concerns at this time. Has had 2 applications of epifix. - Physical Exam Vital Signs Temp Pulse Resp BP 97.0 F L 88 18 133/93 H 10/14/18 09:32 10/14/18 09:32 10/14/18 09:32 10/14/18 09:32 General: Alert, Oriented x3, Cooperative HEENT: Atraumatic, Normocephalic Oral: Moist Mucosa Neck: Supple Lungs: Normal air movement Extremities: No cyanosis, Edema Skin: Ulcer/ Wound Wound Measurements and Assessment WC - Nurse 1 - General Ulcer Measurement Start: 10/14/18 09:32 Freq: Status: Active Protocol: Activity Type Activity Date Activity User E-Sign Co-Sign Detail Recorded Client Recorded Date Recorded By Document 10/14/18 09:32 RB [id number] 10/14/18 09:38 RB 10/14/18 09:32 Wound Center Nurse 1 [Ulcer Assessment] 1. L LATERAL LOWER EXTREMITY -Combined with other wound No -Current Size (cm) - Length 8.1 -Current Size (cm) - Width 2.8 -Current Size (cm) - Depth 0.1 -Total Square Cm 22.68 -Photo Taken No -Epithelialization Small 1-33% -Tunneling No -Undermining/Tunneling No -Circular Undermining No -Exudate Amt Medium -Exudate Type Serous -Wound Margin Flat & Intact -Granulation Amt Medium (34-66%) -Granulation Quality Pale Red -Slough/Fibrin Yes -Necrosis Amt Medium (34-66%) -Necrotic Tissue Type Adherent Slough -Structure Exposed None/Limited to Skin Breakdown -Texture (Kirstie-wound Skin Appearance) No Abnormality Assessed Scarring -Moisture (Kirstie-wound Skin Appearance Assessed ) Dry/Scaly -Color (Kirstie-wound Skin Appearance) No Abnormality Assessed -Temperature (Kirstie-wound Skin No Abnormality Appearance) (Pt Warm) -Ulcer Cleansing SOAP -Anesthetic Used 5% Lidocaine Gel [Edema Assessment] -Lower Limb Edema Present No -Left Calf (cm) 37.3 -Left Ankle (cm) 27.5 WC - Nurse 2 - General Ulcer CM Notes Start: 10/14/18 09:32 Freq: Status: Active Protocol: Activity Type Activity Date Activity User E-Sign Co-Sign Detail Recorded Client Recorded Date Recorded By Document 10/14/18 09:42 MW [id number] 10/14/18 09:55 MW 10/14/18 09:42 Wound Center Nurse 2 [Procedure/Treatment] 1. L LATERAL LOWER EXTREMITY -Time 09:42 -Correct Patient Yes -Correct Side, Site, Position Yes -Correct Procedure Yes -Procedure Performed Yes -Type of Procedure Debridement -Clinical Debridement Subcutaneous -Post Debridement Size (cm) - Length 7.7 -Post Debridement Size (cm) - Width 2.3 -Post Debridement Size (cm) - Depth 0.1 -Total Square Cm 17.71 -Wound/Ulcer Outcome Not Healed -Ulcer Cleansing Rinsed/ Irrigated with Saline -Foul Odor after Cleansing No -Bioengineered Tissue Yes -Type of bioengineered Tissue EPIFIX -Expiration Date 02/14/23 -Product Lot Number [id number] -Percent Used 100 -Saline Lot Number [id number] -Bleeding Controlled with Pressure -Offloading No -Treatment Response Procedure Tolerated Well [See Physician Procedure note for Specifics] Pain Scale: 0-10 Numeric [Pain] -Is Patient Pain Free? Yes Musculoskeletal: No Muscle Wasting Neurological: Cranial nerves II-XII grossly intact Psych/Mental Status: Normal Affect Debridement Note Post-Debridement Measurements/Treatment WC - Nurse 2 - General Ulcer CM Notes Start: 10/14/18 09:32 Freq: Status: Active Protocol: Activity Type Activity Date Activity User E-Sign Co-Sign Detail Recorded Client Recorded Date Recorded By Document 10/14/18 09:42 MW [id number] 10/14/18 09:55 MW 10/14/18 09:42 Wound Center Nurse 2 1. L LATERAL LOWER EXTREMITY -Time 09:42 -Correct Patient Yes -Correct Side, Site, Position Yes -Correct Procedure Yes -Procedure Performed Yes -Type of Procedure Debridement -Clinical Debridement Subcutaneous -Post Debridement Size (cm) - Length 7.7 -Post Debridement Size (cm) - Width 2.3 -Post Debridement Size (cm) - Depth 0.1 -Total Square Cm 17.71 -Wound/Ulcer Outcome Not Healed -Ulcer Cleansing Rinsed/ Irrigated with Saline -Foul Odor after Cleansing No -Bioengineered Tissue Yes -Type of bioengineered Tissue EPIFIX -Expiration Date 02/14/23 -Product Lot Number [id number] -Percent Used 100 -Saline Lot Number [id number] -Bleeding Controlled with Pressure -Offloading No -Treatment Response Procedure Tolerated Well Pain Scale: 0-10 Numeric Is Patient Pain Free? Yes Wound debrided: Left lower extremity Wound Grade/Stage: Stage III Type of Debridement: Excisional debridement Anesthesia Used: 4% Lidocaine Solution Depth: Down to and including healthy tissue, in the subcutaneous layer Percentage of wound debrided: 100 Instrument Used: 7mm curette Tissue Removed: Slough and devitalized tissue Severity: Fat Layer Exposed Amount of bleeding with debridement: Mild Bleeding Controlled with: Pressure Patient tolerated procedure well Assessment/Plan Active Problems Wound of left lower extremity (Chronic) Post debridement/hematoma evacuation. PAD (peripheral artery disease) (Chronic) Venous insufficiency (Chronic) Delayed wound healing (Chronic) Assessment: Left lower extremity ulcer post I and D with delayed healing. Peripheral arterial disease. Delayed healing. Lower extremity with venous insufficiency. Arterial calcification Plan: Improving. No new concerns at this time. Debridement done as documented above, procedure was well tolerated. 3rd application of Epifix done using 100% of product. Adaptic and guaze over top. Leave in place x 1 week. Will definitely continue to require advanced wound care products such as Epifix. Initilally did well with traditional wound care product however plateaued after a while. Switched to Grafix and again did well however seemed to have developed a ? reaction and subsequent infection necessitating need to revert to acetic acid solution and then Pomogran. 3M wraps for edema management. Elevate lower extremities when seated and in bed. Not open to following up with Vascular surgery. 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 Optimize nutrition. Continue protein supplements. His questions were answered and he was advised to call with any further questions or concerns. Follow-up in 1 week with me. This note was generated with [employer] dictation software. It may contain incorrect words, spelling, and punctuation that were not noted in checking the note before signing.
--- NOTE | 2018-10-14 10:11 | PN.PCM_ITS ---
(1) Delayed wound healing Status: Chronic Current Visit: Yes Code(s): T14.8XXD - Other injury of unspecified body region, subsequent encounter (2) PAD (peripheral artery disease) Status: Chronic Current Visit: Yes Code(s): I73.9 - Peripheral vascular disease, unspecified (3) Venous insufficiency Status: Chronic Current Visit: Yes Code(s): I87.2 - Venous insufficiency (chronic) (peripheral) (4) Wound of left lower extremity Status: Chronic Current Visit: Yes Code(s): S81.802A - Unspecified open wound, left lower leg, initial encounter Comment: Post debridement/hematoma evacuation. Type of Wound Chief Complaint: Left lower extremity ulcer - Delayed healing. History of Wound: Mr. Chauhan is a 62 year old with PMH as stated above who presented here due to delayed healing of his left lower extremity wound. He denies chills, fever, nausea, vomitting or loss of appetite. He changes dressing as advised. He has 1 more day of Bactrim for treatment of MRSA. He denies ulcer or redness. Progress of Wound: Stable. No new concerns at this time. Has had 2 applications of epifix. - Physical Exam Vital Signs Temp Pulse Resp BP 97.0 F L 88 18 133/93 H 10/14/18 09:32 10/14/18 09:32 10/14/18 09:32 10/14/18 09:32 General: Alert, Oriented x3, Cooperative HEENT: Atraumatic, Normocephalic Oral: Moist Mucosa Neck: Supple Lungs: Normal air movement Extremities: No cyanosis, Edema Skin: Ulcer/ Wound Wound Measurements and Assessment WC - Nurse 1 - General Ulcer Measurement Start: 10/14/18 09:32 Freq: Status: Active Protocol: Activity Type Activity Date Activity User E-Sign Co-Sign Detail Recorded Client Recorded Date Recorded By Document 10/14/18 09:32 RB [id number] 10/14/18 09:38 RB 10/14/18 09:32 Wound Center Nurse 1 [Ulcer Assessment] 1. L LATERAL LOWER EXTREMITY -Combined with other wound No -Current Size (cm) - Length 8.1 -Current Size (cm) - Width 2.8 -Current Size (cm) - Depth 0.1 -Total Square Cm 22.68 -Photo Taken No -Epithelialization Small 1-33% -Tunneling No -Undermining/Tunneling No -Circular Undermining No -Exudate Amt Medium -Exudate Type Serous -Wound Margin Flat & Intact -Granulation Amt Medium (34-66%) -Granulation Quality Pale Red -Slough/Fibrin Yes -Necrosis Amt Medium (34-66%) -Necrotic Tissue Type Adherent Slough -Structure Exposed None/Limited to Skin Breakdown -Texture (Kirstie-wound Skin Appearance) No Abnormality Assessed Scarring -Moisture (Kirstie-wound Skin Appearance Assessed ) Dry/Scaly -Color (Kirstie-wound Skin Appearance) No Abnormality Assessed -Temperature (Kirstie-wound Skin No Abnormality Appearance) (Pt Warm) -Ulcer Cleansing SOAP -Anesthetic Used 5% Lidocaine Gel [Edema Assessment] -Lower Limb Edema Present No -Left Calf (cm) 37.3 -Left Ankle (cm) 27.5 WC - Nurse 2 - General Ulcer CM Notes Start: 10/14/18 09:32 Freq: Status: Active Protocol: Activity Type Activity Date Activity User E-Sign Co-Sign Detail Recorded Client Recorded Date Recorded By Document 10/14/18 09:42 MW [id number] 10/14/18 09:55 MW 10/14/18 09:42 Wound Center Nurse 2 [Procedure/Treatment] 1. L LATERAL LOWER EXTREMITY -Time 09:42 -Correct Patient Yes -Correct Side, Site, Position Yes -Correct Procedure Yes -Procedure Performed Yes -Type of Procedure Debridement -Clinical Debridement Subcutaneous -Post Debridement Size (cm) - Length 7.7 -Post Debridement Size (cm) - Width 2.3 -Post Debridement Size (cm) - Depth 0.1 -Total Square Cm 17.71 -Wound/Ulcer Outcome Not Healed -Ulcer Cleansing Rinsed/ Irrigated with Saline -Foul Odor after Cleansing No -Bioengineered Tissue Yes -Type of bioengineered Tissue EPIFIX -Expiration Date 02/14/23 -Product Lot Number [id number] -Percent Used 100 -Saline Lot Number [id number] -Bleeding Controlled with Pressure -Offloading No -Treatment Response Procedure Tolerated Well [See Physician Procedure note for Specifics] Pain Scale: 0-10 Numeric [Pain] -Is Patient Pain Free? Yes Musculoskeletal: No Muscle Wasting Neurological: Cranial nerves II-XII grossly intact Psych/Mental Status: Normal Affect Debridement Note Post-Debridement Measurements/Treatment WC - Nurse 2 - General Ulcer CM Notes Start: 10/14/18 09:32 Freq: Status: Active Protocol: Activity Type Activity Date Activity User E-Sign Co-Sign Detail Recorded Client Recorded Date Recorded By Document 10/14/18 09:42 MW [id number] 10/14/18 09:55 MW 10/14/18 09:42 Wound Center Nurse 2 1. L LATERAL LOWER EXTREMITY -Time 09:42 -Correct Patient Yes -Correct Side, Site, Position Yes -Correct Procedure Yes -Procedure Performed Yes -Type of Procedure Debridement -Clinical Debridement Subcutaneous -Post Debridement Size (cm) - Length 7.7 -Post Debridement Size (cm) - Width 2.3 -Post Debridement Size (cm) - Depth 0.1 -Total Square Cm 17.71 -Wound/Ulcer Outcome Not Healed -Ulcer Cleansing Rinsed/ Irrigated with Saline -Foul Odor after Cleansing No -Bioengineered Tissue Yes -Type of bioengineered Tissue EPIFIX -Expiration Date 02/14/23 -Product Lot Number [id number] -Percent Used 100 -Saline Lot Number [id number] -Bleeding Controlled with Pressure -Offloading No -Treatment Response Procedure Tolerated Well Pain Scale: 0-10 Numeric Is Patient Pain Free? Yes Wound debrided: Left lower extremity Wound Grade/Stage: Stage III Type of Debridement: Excisional debridement Anesthesia Used: 4% Lidocaine Solution Depth: Down to and including healthy tissue, in the subcutaneous layer Percentage of wound debrided: 100 Instrument Used: 7mm curette Tissue Removed: Slough and devitalized tissue Severity: Fat Layer Exposed Amount of bleeding with debridement: Mild Bleeding Controlled with: Pressure Patient tolerated procedure well Assessment/Plan Active Problems Wound of left lower extremity (Chronic) Post debridement/hematoma evacuation. PAD (peripheral artery disease) (Chronic) Venous insufficiency (Chronic) Delayed wound healing (Chronic) Assessment: Left lower extremity ulcer post I and D with delayed healing. Peripheral arterial disease. Delayed healing. Lower extremity with venous insufficiency. Arterial calcification Plan: Improving. No new concerns at this time. Debridement done as documented above, procedure was well tolerated. 3rd application of Epifix done using 100% of product. Adaptic and guaze over top. Leave in place x 1 week. Will definitely continue to require advanced wound care products such as Epifix. Initilally did well with traditional wound care product however plateaued after a while. Switched to Grafix and again did well however seemed to have developed a ? reaction and subsequent infection necessitating need to revert to acetic acid solution and then Pomogran. 3M wraps for edema management. Elevate lower extremities when seated and in bed. Not open to following up with Vascular surgery. Scheduled to follow up with his four h [employer] agent next month and will consider going on Xarelto. Optimize nutrition. Continue protein supplements. His questions were answered and he was advised to call with any further questions or concerns. Follow-up in 1 week with me. This note was generated with [employer] dictation software. It may contain incorrect words, spelling, and punctuation that were not noted in checking the note before signing.
[2018-10-21 10:11] VITALS: BP 118/81; PULSE 79; RESP 18; TEMP 36.1; BMI 42.2
--- NOTE | 2018-10-21 11:04 | PCM.WC.PN ---
(1) Delayed wound healing Status: Chronic Current Visit: Yes Code(s): T14.8XXD - Other injury of unspecified body region, subsequent encounter (2) PAD (peripheral artery disease) Status: Chronic Current Visit: Yes Code(s): I73.9 - Peripheral vascular disease, unspecified (3) Venous insufficiency Status: Chronic Current Visit: Yes Code(s): I87.2 - Venous insufficiency (chronic) (peripheral) (4) Wound of left lower extremity Status: Chronic Current Visit: Yes Code(s): S81.802A - Unspecified open wound, left lower leg, initial encounter Comment: Post debridement/hematoma evacuation. Type of Wound Chief Complaint: Left lower extremity ulcer - Delayed healing. History of Wound: Mr. Chauhan is a 62 year old with PMH as stated above who presented here due to delayed healing of his left lower extremity wound. He denies chills, fever, nausea, vomitting or loss of appetite. He changes dressing as advised. He has 1 more day of Bactrim for treatment of MRSA. He denies ulcer or redness. Progress of Wound: 3 applications of Epifix so far. New areas of periwound masceration. wound circumference however improving. Has had 3 applications of Epifix so far. - Physical Exam Vital Signs Temp Pulse Resp BP 97 F L 79 18 118/81 H 10/21/18 10:11 10/21/18 10:11 10/21/18 10:11 10/21/18 10:11 General: Alert, Oriented x3, Cooperative, No apparent distress HEENT: Atraumatic, Normocephalic Oral: Moist Mucosa Neck: Supple Lungs: Normal air movement Abdomen: Non Tender, Obese Extremities: No cyanosis, Edema Skin: Ulcer/ Wound Wound Measurements and Assessment WC - Nurse 1 - General Ulcer Measurement Start: 10/14/18 09:32 Freq: Status: Active Protocol: Activity Type Activity Date Activity User E-Sign Co-Sign Detail Recorded Client Recorded Date Recorded By Document 10/21/18 10:11 [id number] [id number] 10/21/18 10:13 RB 10/21/18 10:11 Wound Center Nurse 1 [Ulcer Assessment] 1. L LATERAL LOWER EXTREMITY -Combined with other wound No -Current Size (cm) - Length 7.5 -Current Size (cm) - Width 2.5 -Current Size (cm) - Depth 0.1 -Total Square Cm 18.75 -Tunneling No -Undermining/Tunneling No -Circular Undermining No -Exudate Amt Medium -Exudate Type Serosanguineous -Wound Margin Distinct, Outline Attached -Granulation Amt Large (67-100%) -Granulation Quality Red -Slough/Fibrin Yes -Necrosis Amt Medium (34-66%) -Necrotic Tissue Type Adherent Slough -Structure Exposed N/A -Texture (Kirstie-wound Skin Appearance) Excoriation -Moisture (Kirstie-wound Skin Appearance Maceration ) -Color (Kirstie-wound Skin Appearance) Assessed -Temperature (Kirstie-wound Skin No Abnormality Appearance) (Pt Warm) -Tenderness on Palpation (Kirstie-wound No Skin Appearance) -Ulcer Cleansing Wound Cleanser -Foul Odor after Cleansing No -Anesthetic Used 4% Lidocaine Solution [Edema Assessment] -Lower Limb Edema Present Yes -Left Calf (cm) 36.5 -Left Ankle (cm) 23 WC - Nurse 2 - General Ulcer CM Notes Start: 10/14/18 09:32 Freq: Status: Active Protocol: Activity Type Activity Date Activity User E-Sign Co-Sign Detail Recorded Client Recorded Date Recorded By Document 10/21/18 10:43 MW [id number] 10/21/18 10:56 MW 10/21/18 10:43 Wound Center Nurse 2 [Procedure/Treatment] 1. L LATERAL LOWER EXTREMITY -Time 10:44 -Correct Patient Yes -Correct Side, Site, Position Yes -Correct Procedure Yes -Procedure Performed Yes -Type of Procedure Debridement -Clinical Debridement Subcutaneous -Post Debridement Size (cm) - Length 7.0 -Post Debridement Size (cm) - Width 2.0 -Post Debridement Size (cm) - Depth 0.1 -Total Square Cm 14.00 -Wound/Ulcer Outcome Not Healed -Ulcer Cleansing Rinsed/ Irrigated with Saline -Foul Odor after Cleansing No -Bioengineered Tissue Yes -Type of bioengineered Tissue EPIFIX -Expiration Date 02/14/23 -Product Lot Number [id number] -Percent Used 100 -Saline Lot Number [id number] -Bleeding Controlled with Pressure -Offloading No -Treatment Response Procedure Tolerated Well [See Physician Procedure note for Specifics] Pain Scale: 0-10 Numeric [Pain] -Is Patient Pain Free? Yes Musculoskeletal: No Muscle Wasting Neurological: Cranial nerves II-XII grossly intact Psych/Mental Status: Normal Affect Debridement Note Post-Debridement Measurements/Treatment WC - Nurse 2 - General Ulcer CM Notes Start: 10/14/18 09:32 Freq: Status: Active Protocol: Activity Type Activity Date Activity User E-Sign Co-Sign Detail Recorded Client Recorded Date Recorded By Document 10/14/18 09:42 MW [id number] 10/14/18 09:55 MW Document 10/21/18 10:43 MW [id number] 10/21/18 10:56 MW 10/14/18 10/21/18 09:42 10:43 Wound Center Nurse 2 1. L LATERAL LOWER EXTREMITY -Time 09:42 10:44 -Correct Patient Yes Yes -Correct Side, Site, Position Yes Yes -Correct Procedure Yes Yes -Procedure Performed Yes Yes -Type of Procedure Debridement Debridement -Clinical Debridement Subcutaneous Subcutaneous -Post Debridement Size (cm) - Length 7.7 7.0 -Post Debridement Size (cm) - Width 2.3 2.0 -Post Debridement Size (cm) - Depth 0.1 0.1 -Total Square Cm 17.71 14.00 -Wound/Ulcer Outcome Not Healed Not Healed -Ulcer Cleansing Rinsed/ Rinsed/ Irrigated with Irrigated with Saline Saline -Foul Odor after Cleansing No No -Bioengineered Tissue Yes Yes -Type of bioengineered Tissue EPIFIX EPIFIX -Expiration Date 02/14/23 02/14/23 -Product Lot Number [id number] -Percent Used 100 100 -Saline Lot Number [id number] -Bleeding Controlled with Pressure Pressure -Offloading No No -Treatment Response Procedure Procedure Tolerated Well Tolerated Well Pain Scale: 0-10 Numeric Is Patient Pain Free? Yes Yes Wound debrided: Left lower extremity Wound Grade/Stage: Stage III Type of Debridement: Excisional debridement Anesthesia Used: 4% Lidocaine Solution Depth: Down to and including healthy tissue, in the subcutaneous layer Percentage of wound debrided: 100 Instrument Used: 7mm curette Tissue Removed: Slough and devitalized tissue Severity: Fat Layer Exposed Amount of bleeding with debridement: Mild Bleeding Controlled with: Pressure Patient tolerated procedure well Assessment/Plan Active Problems Wound of left lower extremity (Chronic) Post debridement/hematoma evacuation. PAD (peripheral artery disease) (Chronic) Venous insufficiency (Chronic) Delayed wound healing (Chronic) Assessment: Left lower extremity ulcer post I and D with delayed healing. Peripheral arterial disease. Delayed healing. Lower extremity with venous insufficiency. Arterial calcification Plan: Improving however, has periwound masceration. Debridement done as documented above, procedure was well tolerated. 4th application of Epifix done using 100% of product. Wound veil and guaze over top. Leave in place x 1 week. Follow up on friday for a nurse visit to monitor drainage.Will definitely continue to require advanced wound care products such as Epifix. Initilally did well with traditional wound care product however plateaued after a while. Switched to Grafix and again did well however seemed to have developed a ? reaction and subsequent infection necessitating need to revert to acetic acid solution and then Pomogran. Circaid for edema management. Elevate lower extremities when seated and in bed. Not open to following up with Vascular surgery. On Xarelto for Afib. His questions were answered and he was advised to call with any further questions or concerns. Follow-up in 1 week with me. This note was generated with [employer] dictation software. It may contain incorrect words, spelling, and punctuation that were not noted in checking the note before signing.
--- NOTE | 2018-10-21 11:10 | PN.PCM_ITS ---
(1) Delayed wound healing Status: Chronic Current Visit: Yes Code(s): T14.8XXD - Other injury of unspecified body region, subsequent encounter (2) PAD (peripheral artery disease) Status: Chronic Current Visit: Yes Code(s): I73.9 - Peripheral vascular disease, unspecified (3) Venous insufficiency Status: Chronic Current Visit: Yes Code(s): I87.2 - Venous insufficiency (chronic) (peripheral) (4) Wound of left lower extremity Status: Chronic Current Visit: Yes Code(s): S81.802A - Unspecified open wound, left lower leg, initial encounter Comment: Post debridement/hematoma evacuation. Type of Wound Chief Complaint: Left lower extremity ulcer - Delayed healing. History of Wound: Mr. Chauhan is a 62 year old with PMH as stated above who presented here due to delayed healing of his left lower extremity wound. He denies chills, fever, nausea, vomitting or loss of appetite. He changes dressing as advised. He has 1 more day of Bactrim for treatment of MRSA. He denies ulcer or redness. Progress of Wound: 3 applications of Epifix so far. New areas of periwound masceration. wound circumference however improving. Has had 3 applications of Epifix so far. - Physical Exam Vital Signs Temp Pulse Resp BP 97 F L 79 18 118/81 H 10/21/18 10:11 10/21/18 10:11 10/21/18 10:11 10/21/18 10:11 General: Alert, Oriented x3, Cooperative, No apparent distress HEENT: Atraumatic, Normocephalic Oral: Moist Mucosa Neck: Supple Lungs: Normal air movement Abdomen: Non Tender, Obese Extremities: No cyanosis, Edema Skin: Ulcer/ Wound Wound Measurements and Assessment WC - Nurse 1 - General Ulcer Measurement Start: 10/14/18 09:32 Freq: Status: Active Protocol: Activity Type Activity Date Activity User E-Sign Co-Sign Detail Recorded Client Recorded Date Recorded By Document 10/21/18 10:11 [id number] [id number] 10/21/18 10:13 RB 10/21/18 10:11 Wound Center Nurse 1 [Ulcer Assessment] 1. L LATERAL LOWER EXTREMITY -Combined with other wound No -Current Size (cm) - Length 7.5 -Current Size (cm) - Width 2.5 -Current Size (cm) - Depth 0.1 -Total Square Cm 18.75 -Tunneling No -Undermining/Tunneling No -Circular Undermining No -Exudate Amt Medium -Exudate Type Serosanguineous -Wound Margin Distinct, Outline Attached -Granulation Amt Large (67-100%) -Granulation Quality Red -Slough/Fibrin Yes -Necrosis Amt Medium (34-66%) -Necrotic Tissue Type Adherent Slough -Structure Exposed N/A -Texture (Kirstie-wound Skin Appearance) Excoriation -Moisture (Kirstie-wound Skin Appearance Maceration ) -Color (Kirstie-wound Skin Appearance) Assessed -Temperature (Kirstie-wound Skin No Abnormality Appearance) (Pt Warm) -Tenderness on Palpation (Kirstie-wound No Skin Appearance) -Ulcer Cleansing Wound Cleanser -Foul Odor after Cleansing No -Anesthetic Used 4% Lidocaine Solution [Edema Assessment] -Lower Limb Edema Present Yes -Left Calf (cm) 36.5 -Left Ankle (cm) 23 WC - Nurse 2 - General Ulcer CM Notes Start: 10/14/18 09:32 Freq: Status: Active Protocol: Activity Type Activity Date Activity User E-Sign Co-Sign Detail Recorded Client Recorded Date Recorded By Document 10/21/18 10:43 MW [id number] 10/21/18 10:56 MW 10/21/18 10:43 Wound Center Nurse 2 [Procedure/Treatment] 1. L LATERAL LOWER EXTREMITY -Time 10:44 -Correct Patient Yes -Correct Side, Site, Position Yes -Correct Procedure Yes -Procedure Performed Yes -Type of Procedure Debridement -Clinical Debridement Subcutaneous -Post Debridement Size (cm) - Length 7.0 -Post Debridement Size (cm) - Width 2.0 -Post Debridement Size (cm) - Depth 0.1 -Total Square Cm 14.00 -Wound/Ulcer Outcome Not Healed -Ulcer Cleansing Rinsed/ Irrigated with Saline -Foul Odor after Cleansing No -Bioengineered Tissue Yes -Type of bioengineered Tissue EPIFIX -Expiration Date 02/14/23 -Product Lot Number [id number] -Percent Used 100 -Saline Lot Number [id number] -Bleeding Controlled with Pressure -Offloading No -Treatment Response Procedure Tolerated Well [See Physician Procedure note for Specifics] Pain Scale: 0-10 Numeric [Pain] -Is Patient Pain Free? Yes Musculoskeletal: No Muscle Wasting Neurological: Cranial nerves II-XII grossly intact Psych/Mental Status: Normal Affect Debridement Note Post-Debridement Measurements/Treatment WC - Nurse 2 - General Ulcer CM Notes Start: 10/14/18 09:32 Freq: Status: Active Protocol: Activity Type Activity Date Activity User E-Sign Co-Sign Detail Recorded Client Recorded Date Recorded By Document 10/14/18 09:42 MW [id number] 10/14/18 09:55 MW Document 10/21/18 10:43 MW [id number] 10/21/18 10:56 MW 10/14/18 10/21/18 09:42 10:43 Wound Center Nurse 2 1. L LATERAL LOWER EXTREMITY -Time 09:42 10:44 -Correct Patient Yes Yes -Correct Side, Site, Position Yes Yes -Correct Procedure Yes Yes -Procedure Performed Yes Yes -Type of Procedure Debridement Debridement -Clinical Debridement Subcutaneous Subcutaneous -Post Debridement Size (cm) - Length 7.7 7.0 -Post Debridement Size (cm) - Width 2.3 2.0 -Post Debridement Size (cm) - Depth 0.1 0.1 -Total Square Cm 17.71 14.00 -Wound/Ulcer Outcome Not Healed Not Healed -Ulcer Cleansing Rinsed/ Rinsed/ Irrigated with Irrigated with Saline Saline -Foul Odor after Cleansing No No -Bioengineered Tissue Yes Yes -Type of bioengineered Tissue EPIFIX EPIFIX -Expiration Date 02/14/23 02/14/23 -Product Lot Number [id number] -Percent Used 100 100 -Saline Lot Number [id number] -Bleeding Controlled with Pressure Pressure -Offloading No No -Treatment Response Procedure Procedure Tolerated Well Tolerated Well Pain Scale: 0-10 Numeric Is Patient Pain Free? Yes Yes Wound debrided: Left lower extremity Wound Grade/Stage: Stage III Type of Debridement: Excisional debridement Anesthesia Used: 4% Lidocaine Solution Depth: Down to and including healthy tissue, in the subcutaneous layer Percentage of wound debrided: 100 Instrument Used: 7mm curette Tissue Removed: Slough and devitalized tissue Severity: Fat Layer Exposed Amount of bleeding with debridement: Mild Bleeding Controlled with: Pressure Patient tolerated procedure well Assessment/Plan Active Problems Wound of left lower extremity (Chronic) Post debridement/hematoma evacuation. PAD (peripheral artery disease) (Chronic) Venous insufficiency (Chronic) Delayed wound healing (Chronic) Assessment: Left lower extremity ulcer post I and D with delayed healing. Peripheral arterial disease. Delayed healing. Lower extremity with venous insufficiency. Arterial calcification Plan: Improving however, has periwound masceration. Debridement done as documented above, procedure was well tolerated. 4th application of Epifix done using 100% of product. Wound veil and guaze over top. Leave in place x 1 week. Follow up on friday for a nurse visit to monitor drainage.Will definitely co ntinue to require advanced wound care products such as Epifix. Initilally did well with traditional wound care product however plateaued after a while. Switched to Grafix and again did well however seemed to have developed a ? reaction and subsequent infection necessitating need to revert to acetic acid solution and then Pomogran. Circaid for edema management. Elevate lower extremities when seated and in bed. Not open to following up with Vascular surgery. On Xarelto for Afib. His questions were answered and he was advised to call with any further questions or concerns. Follow-up in 1 week with me. This note was generated with [employer] dictation software. It may contain incorrect words, spelling, and punctuation that were not noted in checking the note before signing.
[2018-10-23 10:30] VITALS: BP 114/79; PULSE 85; RESP 18; TEMP 36.6; BMI 42.2
[2018-10-28 09:45] VITALS: BP 125/65; PULSE 76; RESP 18; TEMP 36.5; BMI 42.2
--- NOTE | 2018-10-28 11:00 | PCM.WC.PN ---
(1) Delayed wound healing Status: Chronic Current Visit: Yes Code(s): T14.8XXD - Other injury of unspecified body region, subsequent encounter (2) PAD (peripheral artery disease) Status: Chronic Current Visit: Yes Code(s): I73.9 - Peripheral vascular disease, unspecified (3) Venous insufficiency Status: Chronic Current Visit: Yes Code(s): I87.2 - Venous insufficiency (chronic) (peripheral) (4) Wound of left lower extremity Status: Chronic Current Visit: Yes Code(s): S81.802A - Unspecified open wound, left lower leg, initial encounter Comment: Post debridement/hematoma evacuation. Type of Wound Chief Complaint: Left lower extremity ulcer - Delayed healing. History of Wound: Mr. Chauhan is a 62 year old with PMH as stated above who presented here due to delayed healing of his left lower extremity wound. He denies chills, fever, nausea, vomitting or loss of appetite. He changes dressing as advised. He has 1 more day of Bactrim for treatment of MRSA. He denies ulcer or redness. Progress of Wound: 4 applications of Epifix so far. Perwound masceration has significantly improved. No new concerns at this time. - Physical Exam Vital Signs Temp Pulse Resp BP 97.7 F L 76 18 125/65 H 10/28/18 09:45 10/28/18 09:45 10/28/18 09:45 10/28/18 09:45 General: Alert, Oriented x3, Cooperative, No apparent distress HEENT: Atraumatic, Normocephalic Oral: Moist Mucosa Neck: Supple Lungs: Normal air movement Abdomen: Non Tender, Obese Extremities: No cyanosis Skin: Ulcer/ Wound Wound Measurements and Assessment WC - Nurse 1 - General Ulcer Measurement Start: 10/14/18 09:32 Freq: Status: Active Protocol: Activity Type Activity Date Activity User E-Sign Co-Sign Detail Recorded Client Recorded Date Recorded By Document 10/28/18 09:45 RB [id number] 10/28/18 09:52 RB 10/28/18 09:45 Wound Center Nurse 1 [Ulcer Assessment] 1. L LATERAL LOWER EXTREMITY -Combined with other wound No -Current Size (cm) - Length 7.3 -Current Size (cm) - Width 2 -Current Size (cm) - Depth 0.2 -Total Square Cm 14.6 -Tunneling No -Undermining/Tunneling No -Circular Undermining No -Exudate Amt Small -Exudate Type Serosanguineous -Wound Margin Distinct, Outline Attached -Granulation Amt Large (67-100%) -Granulation Quality [place] Red -Slough/Fibrin Yes -Necrosis Amt Small (1-33%) -Necrotic Tissue Type Adherent Slough -Structure Exposed N/A -Texture (Kirstie-wound Skin Appearance) Assessed -Moisture (Kirstie-wound Skin Appearance Dry/Scaly ) -Color (Kirstie-wound Skin Appearance) Assessed -Temperature (Kirstie-wound Skin No Abnormality Appearance) (Pt Warm) -Tenderness on Palpation (Kirstie-wound No Skin Appearance) -Ulcer Cleansing Wound Cleanser -Foul Odor after Cleansing No -Anesthetic Used 4% Lidocaine Solution [Edema Assessment] -Lower Limb Edema Present Yes -Left Calf (cm) 37 -Left Ankle (cm) 22 WC - Nurse 2 - General Ulcer CM Notes Start: 10/14/18 09:32 Freq: Status: Active Protocol: Activity Type Activity Date Activity User E-Sign Co-Sign Detail Recorded Client Recorded Date Recorded By Document 10/28/18 10:22 MW [id number] 10/28/18 10:26 MW 10/28/18 10:22 Wound Center Nurse 2 [Procedure/Treatment] 1. L LATERAL LOWER EXTREMITY -Time 10:23 -Correct Patient Yes -Correct Side, Site, Position Yes -Correct Procedure Yes -Procedure Performed Yes -Type of Procedure Debridement -Clinical Debridement Subcutaneous -Post Debridement Size (cm) - Length 7.0 -Post Debridement Size (cm) - Width 2.0 -Post Debridement Size (cm) - Depth 0.1 -Total Square Cm 14.00 -Wound/Ulcer Outcome Not Healed -Ulcer Cleansing Rinsed/ Irrigated with Saline -Foul Odor after Cleansing No -Bioengineered Tissue Yes -Type of bioengineered Tissue EPIFIX -Expiration Date 03/16/23 -Product Lot Number [id number] -Percent Used 100 -Saline Lot Number [id number] -Bleeding Controlled with Pressure -Offloading No -Treatment Response Procedure Tolerated Well [See Physician Procedure note for Specifics] Pain Scale: 0-10 Numeric [Pain] -Is Patient Pain Free? Yes Musculoskeletal: No Muscle Wasting Neurological: Cranial nerves II-XII grossly intact Psych/Mental Status: Normal Affect Debridement Note Post-Debridement Measurements/Treatment WC - Nurse 2 - General Ulcer CM Notes Start: 10/14/18 09:32 Freq: Status: Active Protocol: Activity Type Activity Date Activity User E-Sign Co-Sign Detail Recorded Client Recorded Date Recorded By Document 10/14/18 09:42 MW [id number] 10/14/18 09:55 MW Document 10/21/18 10:43 MW [id number] 10/21/18 10:56 MW Document 10/28/18 10:22 MW [id number] 10/28/18 10:26 MW 10/14/18 10/21/18 10/28/18 09:42 10:43 10:22 Wound Center Nurse 2 1. L LATERAL LOWER EXTREMITY -Time 09:42 10:44 10:23 -Correct Patient Yes Yes Yes -Correct Side, Site, Position Yes Yes Yes -Correct Procedure Yes Yes Yes -Procedure Performed Yes Yes Yes -Type of Procedure Debridement Debridement Debridement -Clinical Debridement Subcutaneous Subcutaneous Subcutaneous -Post Debridement Size (cm) - Length 7.7 7.0 7.0 -Post Debridement Size (cm) - Width 2.3 2.0 2.0 -Post Debridement Size (cm) - Depth 0.1 0.1 0.1 -Total Square Cm 17.71 14.00 14.00 -Wound/Ulcer Outcome Not Healed Not Healed Not Healed -Ulcer Cleansing Rinsed/ Rinsed/ Rinsed/ Irrigated with Irrigated with Irrigated with Saline Saline Saline -Foul Odor after Cleansing No No No -Bioengineered Tissue Yes Yes Yes -Type of bioengineered Tissue EPIFIX EPIFIX EPIFIX -Expiration Date 02/14/23 02/14/23 03/16/23 -Product Lot Number [id number] -Percent Used 100 100 100 -Saline Lot Number [id number] -Bleeding Controlled with Pressure Pressure Pressure -Offloading No No No -Treatment Response Procedure Procedure Procedure Tolerated Well Tolerated Well Tolerated Well Pain Scale: 0-10 Numeric Is Patient Pain Free? Yes Yes Yes Wound debrided: Left lower extremity Wound Grade/Stage: Stage III Type of Debridement: Excisional debridement Anesthesia Used: 4% Lidocaine Solution Depth: Down to and including healthy tissue, in the subcutaneous layer Percentage of wound debrided: 100 Instrument Used: 5mm curette Tissue Removed: Slough and devitalized tissue Severity: Fat Layer Exposed Amount of bleeding with debridement: Mild Bleeding Controlled with: Pressure Patient tolerated procedure well Assessment/Plan Active Problems Wound of left lower extremity (Chronic) Post debridement/hematoma evacuation. PAD (peripheral artery disease) (Chronic) Venous insufficiency (Chronic) Delayed wound healing (Chronic) Assessment: Left lower extremity ulcer post I and D with delayed healing. Peripheral arterial disease. Delayed healing. Lower extremity with venous insufficiency. Arterial calcification Plan: Perwound masceration with significant improvement. Debridement done as documented above, procedure was well tolerated. 5th application of Epifix done using 100% of product. Wound veil and guaze over top. Leave in place x 1 week. Follow up on friday for a nurse visit to monitor drainage.Will definitely continue to require advanced wound care products such as Epifix. Initilally did well with traditional wound care product however plateaued after a while. Switched to Grafix and again did well however seemed to have developed a ? reaction and subsequent infection necessitating need to revert to acetic acid solution and then Pomogran. Circaid for edema management. Elevate lower extremities when seated and in bed. Not open to following up with Vascular surgery. On Xarelto for Afib. His questions were answered and he was advised to call with any further questions or concerns. Follow-up in 1 week with me. This note was generated with [employer] software. It may contain incorrect words, spelling, and punctuation that were not noted in checking the note before signing.
--- NOTE | 2018-10-28 11:03 | PN.PCM_ITS ---
(1) Delayed wound healing Status: Chronic Current Visit: Yes Code(s): T14.8XXD - Other injury of unspecified body region, subsequent encounter (2) PAD (peripheral artery disease) Status: Chronic Current Visit: Yes Code(s): I73.9 - Peripheral vascular disease, unspecified (3) Venous insufficiency Status: Chronic Current Visit: Yes Code(s): I87.2 - Venous insufficiency (chronic) (peripheral) (4) Wound of left lower extremity Status: Chronic Current Visit: Yes Code(s): S81.802A - Unspecified open wound, left lower leg, initial encounter Comment: Post debridement/hematoma evacuation. Type of Wound Chief Complaint: Left lower extremity ulcer - Delayed healing. History of Wound: Mr. Chauhan is a 62 year old with PMH as stated above who presented here due to delayed healing of his left lower extremity wound. He denies chills, fever, nausea, vomitting or loss of appetite. He changes dressing as advised. He has 1 more day of Bactrim for treatment of MRSA. He denies ulcer or redness. Progress of Wound: 4 applications of Epifix so far. Perwound masceration has significantly improved. No new concerns at this time. - Physical Exam Vital Signs Temp Pulse Resp BP 97.7 F L 76 18 125/65 H 10/28/18 09:45 10/28/18 09:45 10/28/18 09:45 10/28/18 09:45 General: Alert, Oriented x3, Cooperative, No apparent distress HEENT: Atraumatic, Normocephalic Oral: Moist Mucosa Neck: Supple Lungs: Normal air movement Abdomen: Non Tender, Obese Extremities: No cyanosis Skin: Ulcer/ Wound Wound Measurements and Assessment WC - Nurse 1 - General Ulcer Measurement Start: 10/14/18 09:32 Freq: Status: Active Protocol: Activity Type Activity Date Activity User E-Sign Co-Sign Detail Recorded Client Recorded Date Recorded By Document 10/28/18 09:45 RB [id number] 10/28/18 09:52 RB 10/28/18 09:45 Wound Center Nurse 1 [Ulcer Assessment] 1. L LATERAL LOWER EXTREMITY -Combined with other wound No -Current Size (cm) - Length 7.3 -Current Size (cm) - Width 2 -Current Size (cm) - Depth 0.2 -Total Square Cm 14.6 -Tunneling No -Undermining/Tunneling No -Circular Undermining No -Exudate Amt Small -Exudate Type Serosanguineous -Wound Margin Distinct, Outline Attached -Granulation Amt Large (67-100%) -Granulation Quality [place] Red -Slough/Fibrin Yes -Necrosis Amt Small (1-33%) -Necrotic Tissue Type Adherent Slough -Structure Exposed N/A -Texture (Kirstie-wound Skin Appearance) Assessed -Moisture (Kirstie-wound Skin Appearance Dry/Scaly ) -Color (Kirstie-wound Skin Appearance) Assessed -Temperature (Kirstie-wound Skin No Abnormality Appearance) (Pt Warm) -Tenderness on Palpation (Kirstie-wound No Skin Appearance) -Ulcer Cleansing Wound Cleanser -Foul Odor after Cleansing No -Anesthetic Used 4% Lidocaine Solution [Edema Assessment] -Lower Limb Edema Present Yes -Left Calf (cm) 37 -Left Ankle (cm) 22 WC - Nurse 2 - General Ulcer CM Notes Start: 10/14/18 09:32 Freq: Status: Active Protocol: Activity Type Activity Date Activity User E-Sign Co-Sign Detail Recorded Client Recorded Date Recorded By Document 10/28/18 10:22 MW [id number] 10/28/18 10:26 MW 10/28/18 10:22 Wound Center Nurse 2 [Procedure/Treatment] 1. L LATERAL LOWER EXTREMITY -Time 10:23 -Correct Patient Yes -Correct Side, Site, Position Yes -Correct Procedure Yes -Procedure Performed Yes -Type of Procedure Debridement -Clinical Debridement Subcutaneous -Post Debridement Size (cm) - Length 7.0 -Post Debridement Size (cm) - Width 2.0 -Post Debridement Size (cm) - Depth 0.1 -Total Square Cm 14.00 -Wound/Ulcer Outcome Not Healed -Ulcer Cleansing Rinsed/ Irrigated with Saline -Foul Odor after Cleansing No -Bioengineered Tissue Yes -Type of bioengineered Tissue EPIFIX -Expiration Date 03/16/23 -Product Lot Number [id number] -Percent Used 100 -Saline Lot Number [id number] -Bleeding Controlled with Pressure -Offloading No -Treatment Response Procedure Tolerated Well [See Physician Procedure note for Specifics] Pain Scale: 0-10 Numeric [Pain] -Is Patient Pain Free? Yes Musculoskeletal: No Muscle Wasting Neurological: Cranial nerves II-XII grossly intact Psych/Mental Status: Normal Affect Debridement Note Post-Debridement Measurements/Treatment WC - Nurse 2 - General Ulcer CM Notes Start: 10/14/18 09:32 Freq: Status: Active Protocol: Activity Type Activity Date Activity User E-Sign Co-Sign Detail Recorded Client Recorded Date Recorded By Document 10/14/18 09:42 MW [id number] 10/14/18 09:55 MW Document 10/21/18 10:43 MW [id number] 10/21/18 10:56 MW Document 10/28/18 10:22 MW [id number] 10/28/18 10:26 MW 10/14/18 10/21/18 10/28/18 09:42 10:43 10:22 Wound Center Nurse 2 1. L LATERAL LOWER EXTREMITY -Time 09:42 10:44 10:23 -Correct Patient Yes Yes Yes -Correct Side, Site, Position Yes Yes Yes -Correct Procedure Yes Yes Yes -Procedure Performed Yes Yes Yes -Type of Procedure Debridement Debridement Debridement -Clinical Debridement Subcutaneous Subcutaneous Subcutaneous -Post Debridement Size (cm) - Length 7.7 7.0 7.0 -Post Debridement Size (cm) - Width 2.3 2.0 2.0 -Post Debridement Size (cm) - Depth 0.1 0.1 0.1 -Total Square Cm 17.71 14.00 14.00 -Wound/Ulcer Outcome Not Healed Not Healed Not Healed -Ulcer Cleansing Rinsed/ Rinsed/ Rinsed/ Irrigated with Irrigated with Irrigated with Saline Saline Saline -Foul Odor after Cleansing No No No -Bioengineered Tissue Yes Yes Yes -Type of bioengineered Tissue EPIFIX EPIFIX EPIFIX -Expiration Date 02/14/23 02/14/23 03/16/23 -Product Lot Number [id number] -Percent Used 100 100 100 -Saline Lot Number [id number] -Bleeding Controlled with Pressure Pressure Pressure -Offloading No No No -Treatment Response Procedure Procedure Procedure Tolerated Well Tolerated Well Tolerated Well Pain Scale: 0-10 Numeric Is Patient Pain Free? Yes Yes Yes Wound debrided: Left lower extremity Wound Grade/Stage: Stage III Type of Debridement: Excisional debridement Anesthesia Used: 4% Lidocaine Solution Depth: Down to and including healthy tissue, in the subcutaneous layer Percentage of wound debrided: 100 Instrument Used: 5mm curette Tissue Removed: Slough and devitalized tissue Severity: Fat Layer Exposed Amount of bleeding with debridement: Mild Bleeding Controlled with: Pressure Patient tolerated procedure well Assessment/Plan Active Problems Wound of left lower extremity (Chronic) Post debridement/hematoma evacuation. PAD (peripheral artery disease) (Chronic) Venous insufficiency (Chronic) Delayed wound healing (Chronic) Assessment: Left lower extremity ulcer post I and D with delayed healing. Peripheral arterial disease. Delayed healing. Lower extremity with venous insufficiency. Arterial calcification Plan: Perwound masceration with significant improvement. Debridement done as documented above, procedure was well tolerated. 5th application of Epifix done using 100% of product. Wound veil and guaze over top. Leave in place x 1 week. Follow up on friday for a nurse visit to monitor drainage.Will definitely continue to require advanced wound care products such as Epifix. Initilally did well with traditional wound care product however plateaued after a while. Switched to Grafix and again did well however seemed to have developed a ? reaction and subsequent infection necessitating need to revert to acetic acid solution and then Pomogran. Circaid for edema management. Elevate lower extremities when seated and in bed. Not open to following up with Vascular surgery. On Xarelto for Afib. His questions were answered and he was advised to call with any further questions or concerns. Follow-up in 1 week with me. This note was generated with [employer] software. It may contain incorrect words, spelling, and punctuation that were not noted in checking the note before signing.
[2018-10-30 09:13] VITALS: BP 120/76; PULSE 85; RESP 20; TEMP 36.1; BMI 42.2
[2018-11-04 09:30] VITALS: BP 127/91; PULSE 82; RESP 18; TEMP 36.2; BMI 42.2
--- NOTE | 2018-11-04 17:22 | PN.PCM_ITS ---
(1) Delayed wound healing Status: Chronic Current Visit: Yes Code(s): T14.8XXD - Other injury of unspecified body region, subsequent encounter (2) PAD (peripheral artery disease) Status: Chronic Current Visit: Yes Code(s): I73.9 - Peripheral vascular disease, unspecified (3) Venous insufficiency Status: Chronic Current Visit: Yes Code(s): I87.2 - Venous insufficiency (chronic) (peripheral) (4) Wound of left lower extremity Status: Chronic Current Visit: Yes Code(s): S81.802A - Unspecified open wound, left lower leg, initial encounter Comment: Post debridement/hematoma evacuation. Type of Wound Chief Complaint: Left lower extremity ulcer - Delayed healing. History of Wound: Mr. Chauhan is a 62 year old with PMH as stated above who presented here due to delayed healing of his left lower extremity wound. He denies chills, fever, nausea, vomitting or loss of appetite. He changes dressing as advised. He has 1 more day of Bactrim for treatment of MRSA. He denies ulcer or redness. Progress of Wound: 5 applications of Epifix so far. No new concerns at this time. - Physical Exam Vital Signs Temp Pulse Resp BP 97.2 F L 82 18 127/91 H 11/04/18 09:30 11/04/18 09:30 11/04/18 09:30 11/04/18 09:30 General: Alert, Oriented x3, Cooperative, No apparent distress HEENT: Atraumatic, Normocephalic Oral: Moist Mucosa Neck: Supple Lungs: Normal air movement Abdomen: Non Tender, Obese Extremities: No cyanosis, Edema Skin: Ulcer/ Wound Wound Measurements and Assessment WC - Nurse 1 - General Ulcer Measurement Start: 10/14/18 09:32 Freq: Status: Active Protocol: Activity Type Activity Date Activity User E-Sign Co-Sign Detail Recorded Client Recorded Date Recorded By Document 11/04/18 09:30 DL [id number] 11/04/18 09:45 DL 11/04/18 09:30 Wound Center Nurse 1 [Ulcer Assessment] 1. L LATERAL LOWER EXTREMITY -Current Size (cm) - Length 6.5 -Current Size (cm) - Width 1.8 -Current Size (cm) - Depth 0.2 -Total Square Cm 11.70 -Photo Taken Yes -Epithelialization Small 1-33% -Exudate Amt Small -Exudate Type Serosanguineous -Wound Margin Thickened -Granulation Amt Medium (34-66%) -Granulation Quality [place] -Necrosis Amt Medium (34-66%) -Necrotic Tissue Type Adherent Slough -Structure Exposed N/A -Texture (Kirstie-wound Skin Appearance) Excoriation Scarring -Moisture (Kirstie-wound Skin Appearance Dry/Scaly ) -Color (Kirstie-wound Skin Appearance) Hemosiderin Staining -Temperature (Kirstie-wound Skin No Abnormality Appearance) (Pt Warm) -Tenderness on Palpation (Kirstie-wound No Skin Appearance) -Ulcer Cleansing Wound Cleanser -Foul Odor after Cleansing No -Anesthetic Used 4% Lidocaine Solution [Edema Assessment] -Left Calf (cm) 41.5 -Left Ankle (cm) 21.4 WC - Nurse 2 - General Ulcer CM Notes Start: 10/14/18 09:32 Freq: Status: Active Protocol: Activity Type Activity Date Activity User E-Sign Co-Sign Detail Recorded Client Recorded Date Recorded By Document 11/04/18 09:55 MW [id number] 11/04/18 10:04 MW 11/04/18 09:55 Wound Center Nurse 2 [Procedure/Treatment] 1. L LATERAL LOWER EXTREMITY -Time 09:56 -Correct Patient Yes -Correct Side, Site, Position Yes -Correct Procedure Yes -Procedure Performed Yes -Type of Procedure Debridement -Clinical Debridement Subcutaneous -Post Debridement Size (cm) - Length 6.5 -Post Debridement Size (cm) - Width 1.7 -Post Debridement Size (cm) - Depth 0.1 -Total Square Cm 11.05 -Wound/Ulcer Outcome Not Healed -Ulcer Cleansing Rinsed/ Irrigated with Saline -Foul Odor after Cleansing No -Bioengineered Tissue Yes -Type of bioengineered Tissue EPIFIX -Expiration Date 03/16/23 -Product Lot Number [id number] -Percent Used 100 -Saline Lot Number [id number] -Bleeding Controlled with Pressure -Offloading No -Treatment Response Procedure Tolerated Well [See Physician Procedure note for Specifics] Pain Scale: 0-10 Numeric [Pain] -Is Patient Pain Free? Yes Musculoskeletal: No Muscle Wasting Neurological: Cranial nerves II-XII grossly intact Psych/Mental Status: Normal Affect Debridement Note Post-Debridement Measurements/Treatment WC - Nurse 2 - General Ulcer CM Notes Start: 10/14/18 09:32 Freq: Status: Active Protocol: Activity Type Activity Date Activity User E-Sign Co-Sign Detail Recorded Client Recorded Date Recorded By Document 10/14/18 09:42 MW [id number] 10/14/18 09:55 MW Document 10/21/18 10:43 MW [id number] 10/21/18 10:56 MW Document 10/28/18 10:22 MW [id number] 10/28/18 10:26 MW Document 11/04/18 09:55 MW [id number] 11/04/18 10:04 MW 10/14/18 10/21/18 10/28/18 09:42 10:43 10:22 Wound Center Nurse 2 1. L LATERAL LOWER EXTREMITY -Time 09:42 10:44 10:23 -Correct Patient Yes Yes Yes -Correct Side, Site, Position Yes Yes Yes -Correct Procedure Yes Yes Yes -Procedure Performed Yes Yes Yes -Type of Procedure Debridement Debridement Debridement -Clinical Debridement Subcutaneous Subcutaneous Subcutaneous -Post Debridement Size (cm) - Length 7.7 7.0 7.0 -Post Debridement Size (cm) - Width 2.3 2.0 2.0 -Post Debridement Size (cm) - Depth 0.1 0.1 0.1 -Total Square Cm 17.71 14.00 14.00 -Wound/Ulcer Outcome Not Healed Not Healed Not Healed -Ulcer Cleansing Rinsed/ Rinsed/ Rinsed/ Irrigated with Irrigated with Irrigated with Saline Saline Saline -Foul Odor after Cleansing No No No -Bioengineered Tissue Yes Yes Yes -Type of bioengineered Tissue EPIFIX EPIFIX EPIFIX -Expiration Date 02/14/23 02/14/23 03/16/23 -Product Lot Number [id number] -Percent Used 100 100 100 -Saline Lot Number [id number] -Bleeding Controlled with Pressure Pressure Pressure -Offloading No No No -Treatment Response Procedure Procedure Procedure Tolerated Well Tolerated Well Tolerated Well Pain Scale: 0-10 Numeric Is Patient Pain Free? Yes Yes Yes 11/04/18 09:55 Wound Center Nurse 2 1. L LATERAL LOWER EXTREMITY -Time 09:56 -Correct Patient Yes -Correct Side, Site, Position Yes -Correct Procedure Yes -Procedure Performed Yes -Type of Procedure Debridement -Clinical Debridement Subcutaneous -Post Debridement Size (cm) - Length 6.5 -Post Debridement Size (cm) - Width 1.7 -Post Debridement Size (cm) - Depth 0.1 -Total Square Cm 11.05 -Wound/Ulcer Outcome Not Healed -Ulcer Cleansing Rinsed/ Irrigated with Saline -Foul Odor after Cleansing No -Bioengineered Tissue Yes -Type of bioengineered Tissue EPIFIX -Expiration Date 03/16/23 -Product Lot Number [id number] -Percent Used 100 -Saline Lot Number [id number] -Bleeding Controlled with Pressure -Offloading No -Treatment Response Procedure Tolerated Well Pain Scale: 0-10 Numeric Is Patient Pain Free? Yes Wound debrided: Left lower extremity Wound Grade/Stage: Stage III Type of Debridement: Excisional debridement Anesthesia Used: 4% Lidocaine Solution Depth: Down to and including healthy tissue, in the subcutaneous layer Percentage of wound debrided: 100 Instrument Used: 5mm curette Tissue Removed: Slough and devitalized tissue Severity: Fat Layer Exposed Amount of bleeding with debridement: Mild Bleeding Controlled with: Pressure Patient tolerated procedure well Assessment/Plan Active Problems Wound of left lower extremity (Chronic) Post debridement/hematoma evacuation. PAD (peripheral artery disease) (Chronic) Venous insufficiency (Chronic) Delayed wound healing (Chronic) Assessment: Left lower extremity ulcer post I and D with delayed healing. Peripheral arterial disease. Delayed healing. Lower extremity with venous insufficiency. Arterial calcification Plan: Improving. No new concerns at this time. Debridement done as documented above, procedure was well tolerated. 6th application of Epifix done using 100% of product. Wound veil and guaze over top. Leave in place x 1 week. Follow up on friday for a nurse visit to monitor drainage.Will definitely continue to require advanced wound care products such as Epifix. Initilally did well with traditional wound care product however plateaued after a while. Switched to Grafix and again did well however seemed to have developed a ? reaction and subsequent infection necessitating need to revert to acetic acid solution and then Pomogran. Circaid for edema management. Elevate lower extremities when seated and in bed. Not open to following up with Vascular surgery. On Xarelto for Afib. His questions were answered and he was advised to call with any further questions or concerns. Follow-up in 1 week with me. This note was generated with [employer] software. It may contain incorrect words, spelling, and punctuation that were not noted in checking the note before signing.
[2018-11-06 11:09] VITALS: BP 128/76; PULSE 83; RESP 16; TEMP 35.9; BMI 42.2
[2018-11-11 10:04] VITALS: BP 130/77; PULSE 73; RESP 18; TEMP 35.7; BMI 42.2
--- NOTE | 2018-11-11 10:46 | PCM.WC.PN ---
(1) Delayed wound healing Status: Chronic Current Visit: Yes Code(s): T14.8XXD - Other injury of unspecified body region, subsequent encounter (2) PAD (peripheral artery disease) Status: Chronic Current Visit: Yes Code(s): I73.9 - Peripheral vascular disease, unspecified (3) Venous insufficiency Status: Chronic Current Visit: Yes Code(s): I87.2 - Venous insufficiency (chronic) (peripheral) (4) Wound of left lower extremity Status: Chronic Current Visit: Yes Code(s): S81.802A - Unspecified open wound, left lower leg, initial encounter Comment: Post debridement/hematoma evacuation. Type of Wound Chief Complaint: Left lower extremity ulcer - Delayed healing. History of Wound: Mr. Chauhan is a 62 year old with PMH as stated above who presented here due to delayed healing of his left lower extremity wound. He denies chills, fever, nausea, vomitting or loss of appetite. He changes dressing as advised. He has 1 more day of Bactrim for treatment of MRSA. He denies ulcer or redness. Progress of Wound: 6 applications of Epifix so far. Presents today with worsening lower extremity swelling. He states that he used his compression as recommended and also elevated his lower extremities. - Physical Exam Vital Signs Temp Pulse Resp BP 96.2 F L 73 18 130/77 H 11/11/18 10:04 11/11/18 10:04 11/11/18 10:04 11/11/18 10:04 General: Alert, Oriented x3, Cooperative, No apparent distress HEENT: Atraumatic, Normocephalic Oral: Moist Mucosa Neck: Supple Lungs: Normal air movement Abdomen: Obese Extremities: Edema Skin: Ulcer/ Wound Wound Measurements and Assessment WC - Nurse 1 - General Ulcer Measurement Start: 10/14/18 09:32 Freq: Status: Active Protocol: Activity Type Activity Date Activity User E-Sign Co-Sign Detail Recorded Client Recorded Date Recorded By Document 11/11/18 10:04 AMRIT [id number] 11/11/18 10:06 AMRIT 11/11/18 10:04 Wound Center Nurse 1 [Ulcer Assessment] 1. L LATERAL LOWER EXTREMITY -Combined with other wound No -Current Size (cm) - Length 7 -Current Size (cm) - Width 1.8 -Current Size (cm) - Depth 0.1 -Total Square Cm 12.6 -Tunneling No -Undermining/Tunneling No -Circular Undermining No -Exudate Amt Medium -Exudate Type Serosanguineous -Wound Margin Distinct, Outline Attached -Granulation Amt Large (67-100%) -Granulation Quality [place] Red -Slough/Fibrin Yes -Necrosis Amt Small (1-33%) -Necrotic Tissue Type Adherent Slough -Structure Exposed N/A -Texture (Kirstie-wound Skin Appearance) Assessed -Moisture (Kirstie-wound Skin Appearance Assessed ) -Color (Kirstie-wound Skin Appearance) Hemosiderin Staining -Temperature (Kirstie-wound Skin No Abnormality Appearance) (Pt Warm) -Tenderness on Palpation (Kirstie-wound No Skin Appearance) -Ulcer Cleansing Wound Cleanser -Foul Odor after Cleansing No -Anesthetic Used 4% Lidocaine Solution [Edema Assessment] -Lower Limb Edema Present Yes -Left Calf (cm) 39 -Left Ankle (cm) 24.5 WC - Nurse 2 - General Ulcer CM Notes Start: 10/14/18 09:32 Freq: Status: Active Protocol: Activity Type Activity Date Activity User E-Sign Co-Sign Detail Recorded Client Recorded Date Recorded By Document 11/11/18 10:24 MW [id number] 11/11/18 10:28 MW 11/11/18 10:24 Wound Center Nurse 2 [Procedure/Treatment] 1. L LATERAL LOWER EXTREMITY -Time 10:26 -Correct Patient Yes -Correct Side, Site, Position Yes -Correct Procedure Yes -Procedure Performed Yes -Type of Procedure Debridement -Clinical Debridement Subcutaneous -Post Debridement Size (cm) - Length 7.0 -Post Debridement Size (cm) - Width 2.0 -Post Debridement Size (cm) - Depth 0.1 -Total Square Cm 14.00 -Wound/Ulcer Outcome Not Healed -Ulcer Cleansing Rinsed/ Irrigated with Saline -Foul Odor after Cleansing No -Bioengineered Tissue Yes -Type of bioengineered Tissue EPIFIX -Expiration Date 03/16/23 -Product Lot Number [id number] -Percent Used 100 -Saline Lot Number [id number] -Bleeding Controlled with Pressure -Offloading No -Treatment Response Procedure Tolerated Well [See Physician Procedure note for Specifics] Pain Scale: 0-10 Numeric [Pain] -Is Patient Pain Free? Yes Musculoskeletal: No Muscle Wasting Neurological: Cranial nerves II-XII grossly intact Psych/Mental Status: Normal Affect Debridement Note Post-Debridement Measurements/Treatment WC - Nurse 2 - General Ulcer CM Notes Start: 10/14/18 09:32 Freq: Status: Active Protocol: Activity Type Activity Date Activity User E-Sign Co-Sign Detail Recorded Client Recorded Date Recorded By Document 10/14/18 09:42 MW [id number] 10/14/18 09:55 MW Document 10/21/18 10:43 MW [id number] 10/21/18 10:56 MW Document 10/28/18 10:22 MW [id number] 10/28/18 10:26 MW Document 11/04/18 09:55 MW [id number] 11/04/18 10:04 MW Document 11/11/18 10:24 MW [id number] 11/11/18 10:28 MW 10/14/18 10/21/18 10/28/18 09:42 10:43 10:22 Wound Center Nurse 2 1. L LATERAL LOWER EXTREMITY -Time 09:42 10:44 10:23 -Correct Patient Yes Yes Yes -Correct Side, Site, Position Yes Yes Yes -Correct Procedure Yes Yes Yes -Procedure Performed Yes Yes Yes -Type of Procedure Debridement Debridement Debridement -Clinical Debridement Subcutaneous Subcutaneous Subcutaneous -Post Debridement Size (cm) - Length 7.7 7.0 7.0 -Post Debridement Size (cm) - Width 2.3 2.0 2.0 -Post Debridement Size (cm) - Depth 0.1 0.1 0.1 -Total Square Cm 17.71 14.00 14.00 -Wound/Ulcer Outcome Not Healed Not Healed Not Healed -Ulcer Cleansing Rinsed/ Rinsed/ Rinsed/ Irrigated with Irrigated with Irrigated with Saline Saline Saline -Foul Odor after Cleansing No No No -Bioengineered Tissue Yes Yes Yes -Type of bioengineered Tissue EPIFIX EPIFIX EPIFIX -Expiration Date 02/14/23 02/14/23 03/16/23 -Product Lot Number [id number] -Percent Used 100 100 100 -Saline Lot Number [id number] -Bleeding Controlled with Pressure Pressure Pressure -Offloading No No No -Treatment Response Procedure Procedure Procedure Tolerated Well Tolerated Well Tolerated Well Pain Scale: 0-10 Numeric Is Patient Pain Free? Yes Yes Yes 11/04/18 11/11/18 09:55 10:24 Wound Center Nurse 2 1. L LATERAL LOWER EXTREMITY -Time 09:56 10:26 -Correct Patient Yes Yes -Correct Side, Site, Position Yes Yes -Correct Procedure Yes Yes -Procedure Performed Yes Yes -Type of Procedure Debridement Debridement -Clinical Debridement Subcutaneous Subcutaneous -Post Debridement Size (cm) - Length 6.5 7.0 -Post Debridement Size (cm) - Width 1.7 2.0 -Post Debridement Size (cm) - Depth 0.1 0.1 -Total Square Cm 11.05 14.00 -Wound/Ulcer Outcome Not Healed Not Healed -Ulcer Cleansing Rinsed/ Rinsed/ Irrigated with Irrigated with Saline Saline -Foul Odor after Cleansing No No -Bioengineered Tissue Yes Yes -Type of bioengineered Tissue EPIFIX EPIFIX -Expiration Date 03/16/23 03/16/23 -Product Lot Number [id number] -Percent Used 100 100 -Saline Lot Number [id number] -Bleeding Controlled with Pressure Pressure -Offloading No No -Treatment Response Procedure Procedure Tolerated Well Tolerated Well Pain Scale: 0-10 Numeric Is Patient Pain Free? Yes Yes Wound debrided: Left lower extremity Wound Grade/Stage: Stage III Type of Debridement: Excisional debridement Anesthesia Used: 4% Lidocaine Solution Depth: Down to and including healthy tissue, in the subcutaneous layer Percentage of wound debrided: 100 Instrument Used: 5mm curette Tissue Removed: Slough and devitalized tissue Severity: Fat Layer Exposed Amount of bleeding with debridement: Mild Bleeding Controlled with: Pressure Patient tolerated procedure well Assessment/Plan Active Problems Wound of left lower extremity (Chronic) Post debridement/hematoma evacuation. PAD (peripheral artery disease) (Chronic) Venous insufficiency (Chronic) Delayed wound healing (Chronic) Assessment: Left lower extremity ulcer post I and D with delayed healing. Peripheral arterial disease. Delayed healing. Lower extremity with venous insufficiency. Arterial calcification Plan: Worsening wound circumference noted. Likely due to worsening lower extremity edema. Debridement done as documented above, procedure was well tolerated. 7th application of Epifix done using 100% of product. Wound veil and guaze over top. Leave in place x 1 week. Will switch to 3M wrap for edema management due to worsening edema. Cultures also taken. Follow up on friday for a nurse visit to monitor drainage.Will definitely continue to require advanced wound care products such as Epifix. Initilally did well with traditional wound care product however plateaued after a while. Switched to Grafix and again did well however seemed to have developed a ? reaction and subsequent infection necessitating need to revert to acetic acid solution and then Pomogran. Strongly advised to Elevate lower extremities when seated and in bed. Not open to following up with Vascular surgery. On Xarelto for Afib. His questions were answered and he was advised to call with any further questions or concerns. Follow-up in 1 week with me. This note was generated with [employer] dictation software. It may contain incorrect words, spelling, and punctuation that were not noted in checking the note before signing.
--- NOTE | 2018-11-11 10:51 | PN.PCM_ITS ---
(1) Delayed wound healing Status: Chronic Current Visit: Yes Code(s): T14.8XXD - Other injury of unspecified body region, subsequent encounter (2) PAD (peripheral artery disease) Status: Chronic Current Visit: Yes Code(s): I73.9 - Peripheral vascular disease, unspecified (3) Venous insufficiency Status: Chronic Current Visit: Yes Code(s): I87.2 - Venous insufficiency (chronic) (peripheral) (4) Wound of left lower extremity Status: Chronic Current Visit: Yes Code(s): S81.802A - Unspecified open wound, left lower leg, initial encounter Comment: Post debridement/hematoma evacuation. Type of Wound Chief Complaint: Left lower extremity ulcer - Delayed healing. History of Wound: Mr. Chauhan is a 62 year old with PMH as stated above who presented here due to delayed healing of his left lower extremity wound. He denies chills, fever, nausea, vomitting or loss of appetite. He changes dressing as advised. He has 1 more day of Bactrim for treatment of MRSA. He denies ulcer or redness. Progress of Wound: 6 applications of Epifix so far. Presents today with worsening lower extremity swelling. He states that he used his compression as recommended and also elevated his lower extremities. - Physical Exam Vital Signs Temp Pulse Resp BP 96.2 F L 73 18 130/77 H 11/11/18 10:04 11/11/18 10:04 11/11/18 10:04 11/11/18 10:04 General: Alert, Oriented x3, Cooperative, No apparent distress HEENT: Atraumatic, Normocephalic Oral: Moist Mucosa Neck: Supple Lungs: Normal air movement Abdomen: Obese Extremities: Edema Skin: Ulcer/ Wound Wound Measurements and Assessment WC - Nurse 1 - General Ulcer Measurement Start: 10/14/18 09:32 Freq: Status: Active Protocol: Activity Type Activity Date Activity User E-Sign Co-Sign Detail Recorded Client Recorded Date Recorded By Document 11/11/18 10:04 AMRIT [id number] 11/11/18 10:06 AMRIT 11/11/18 10:04 Wound Center Nurse 1 [Ulcer Assessment] 1. L LATERAL LOWER EXTREMITY -Combined with other wound No -Current Size (cm) - Length 7 -Current Size (cm) - Width 1.8 -Current Size (cm) - Depth 0.1 -Total Square Cm 12.6 -Tunneling No -Undermining/Tunneling No -Circular Undermining No -Exudate Amt Medium -Exudate Type Serosanguineous -Wound Margin Distinct, Outline Attached -Granulation Amt Large (67-100%) -Granulation Quality [place] Red -Slough/Fibrin Yes -Necrosis Amt Small (1-33%) -Necrotic Tissue Type Adherent Slough -Structure Exposed N/A -Texture (Kirstie-wound Skin Appearance) Assessed -Moisture (Kirstie-wound Skin Appearance Assessed ) -Color (Kirstie-wound Skin Appearance) Hemosiderin Staining -Temperature (Kirtsie-wound Skin No Abnormality Appearance) (Pt Warm) -Tenderness on Palpation (Kirstie-wound No Skin Appearance) -Ulcer Cleansing Wound Cleanser -Foul Odor after Cleansing No -Anesthetic Used 4% Lidocaine Solution [Edema Assessment] -Lower Limb Edema Present Yes -Left Calf (cm) 39 -Left Ankle (cm) 24.5 WC - Nurse 2 - General Ulcer CM Notes Start: 10/14/18 09:32 Freq: Status: Active Protocol: Activity Type Activity Date Activity User E-Sign Co-Sign Detail Recorded Client Recorded Date Recorded By Document 11/11/18 10:24 MW [id number] 11/11/18 10:28 MW 11/11/18 10:24 Wound Center Nurse 2 [Procedure/Treatment] 1. L LATERAL LOWER EXTREMITY -Time 10:26 -Correct Patient Yes -Correct Side, Site, Position Yes -Correct Procedure Yes -Procedure Performed Yes -Type of Procedure Debridement -Clinical Debridement Subcutaneous -Post Debridement Size (cm) - Length 7.0 -Post Debridement Size (cm) - Width 2.0 -Post Debridement Size (cm) - Depth 0.1 -Total Square Cm 14.00 -Wound/Ulcer Outcome Not Healed -Ulcer Cleansing Rinsed/ Irrigated with Saline -Foul Odor after Cleansing No -Bioengineered Tissue Yes -Type of bioengineered Tissue EPIFIX -Expiration Date 03/16/23 -Product Lot Number [id number] -Percent Used 100 -Saline Lot Number [id number] -Bleeding Controlled with Pressure -Offloading No -Treatment Response Procedure Tolerated Well [See Physician Procedure note for Specifics] Pain Scale: 0-10 Numeric [Pain] -Is Patient Pain Free? Yes Musculoskeletal: No Muscle Wasting Neurological: Cranial nerves II-XII grossly intact Psych/Mental Status: Normal Affect Debridement Note Post-Debridement Measurements/Treatment WC - Nurse 2 - General Ulcer CM Notes Start: 10/14/18 09:32 Freq: Status: Active Protocol: Activity Type Activity Date Activity User E-Sign Co-Sign Detail Recorded Client Recorded Date Recorded By Document 10/14/18 09:42 MW [id number] 10/14/18 09:55 MW Document 10/21/18 10:43 MW [id number] 10/21/18 10:56 MW Document 10/28/18 10:22 MW [id number] 10/28/18 10:26 MW Document 11/04/18 09:55 MW [id number] 11/04/18 10:04 MW Document 11/11/18 10:24 MW [id number] 11/11/18 10:28 MW 10/14/18 10/21/18 10/28/18 09:42 10:43 10:22 Wound Center Nurse 2 1. L LATERAL LOWER EXTREMITY -Time 09:42 10:44 10:23 -Correct Patient Yes Yes Yes -Correct Side, Site, Position Yes Yes Yes -Correct Procedure Yes Yes Yes -Procedure Performed Yes Yes Yes -Type of Procedure Debridement Debridement Debridement -Clinical Debridement Subcutaneous Subcutaneous Subcutaneous -Post Debridement Size (cm) - Length 7.7 7.0 7.0 -Post Debridement Size (cm) - Width 2.3 2.0 2.0 -Post Debridement Size (cm) - Depth 0.1 0.1 0.1 -Total Square Cm 17.71 14.00 14.00 -Wound/Ulcer Outcome Not Healed Not Healed Not Healed -Ulcer Cleansing Rinsed/ Rinsed/ Rinsed/ Irrigated with Irrigated with Irrigated with Saline Saline Saline -Foul Odor after Cleansing No No No -Bioengineered Tissue Yes Yes Yes -Type of bioengineered Tissue EPIFIX EPIFIX EPIFIX -Expiration Date 02/14/23 02/14/23 03/16/23 -Product Lot Number [id number] -Percent Used 100 100 100 -Saline Lot Number [id number] -Bleeding Controlled with Pressure Pressure Pressure -Offloading No No No -Treatment Response Procedure Procedure Procedure Tolerated Well Tolerated Well Tolerated Well Pain Scale: 0-10 Numeric Is Patient Pain Free? Yes Yes Yes 11/04/18 11/11/18 09:55 10:24 Wound Center Nurse 2 1. L LATERAL LOWER EXTREMITY -Time 09:56 10:26 -Correct Patient Yes Yes -Correct Side, Site, Position Yes Yes -Correct Procedure Yes Yes -Procedure Performed Yes Yes -Type of Procedure Debridement Debridement -Clinical Debridement Subcutaneous Subcutaneous -Post Debridement Size (cm) - Length 6.5 7.0 -Post Debridement Size (cm) - Width 1.7 2.0 -Post Debridement Size (cm) - Depth 0.1 0.1 -Total Square Cm 11.05 14.00 -Wound/Ulcer Outcome Not Healed Not Healed -Ulcer Cleansing Rinsed/ Rinsed/ Irrigated with Irrigated with Saline Saline -Foul Odor after Cleansing No No -Bioengineered Tissue Yes Yes -Type of bioengineered Tissue EPIFIX EPIFIX -Expiration Date 03/16/23 03/16/23 -Product Lot Number [id number] -Percent Used 100 100 -Saline Lot Number [id number] -Bleeding Controlled with Pressure Pressure -Offloading No No -Treatment Response Procedure Procedure Tolerated Well Tolerated Well Pain Scale: 0-10 Numeric Is Patient Pain Free? Yes Yes Wound debrided: Left lower extremity Wound Grade/Stage: Stage III Type of Debridement: Excisional debridement Anesthesia Used: 4% Lidocaine Solution Depth: Down to and including healthy tissue, in the subcutaneous layer Percentage of wound debrided: 100 Instrument Used: 5mm curette Tissue Removed: Slough and devitalized tissue Severity: Fat Layer Exposed Amount of bleeding with debridement: Mild Bleeding Controlled with: Pressure Patient tolerated procedure well Assessment/Plan Active Problems Wound of left lower extremity (Chronic) Post debridement/hematoma evacuation. PAD (peripheral artery disease) (Chronic) Venous insufficiency (Chronic) Delayed wound healing (Chronic) Assessment: Left lower extremity ulcer post I and D with delayed healing. Peripheral arterial disease. Delayed healing. Lower extremity with venous insufficiency. Arterial calcification Plan: Worsening wound circumference noted. Likely due to worsening lower extremity edema. Debridement done as documented above, procedure was well to lerated. 7th application of Epifix done using 100% of product. Wound veil and guaze over top. Leave in place x 1 week. Will switch to 3M wrap for edema management due to worsening edema. Cultures also taken. Follow up on friday for a nurse visit to monitor drainage.Will definitely continue to require advanced wound care products such as Epifix. Initilally did well with traditional wound care product however plateaued after a while. Switched to Grafix and again did well however seemed to have developed a ? reaction and subsequent infection necessitating need to revert to acetic acid solution and then Pomogran. Strongly advised to Elevate lower extremities when seated and in bed. Not open to following up with Vascular surgery. On Xarelto for Afib. His questions were answered and he was advised to call with any further questions or concerns. Follow-up in 1 week with me. This note was generated with [employer] dictation software. It may contain incorrect words, spelling, and punctuation that were not noted in checking the note before signing.
[2018-11-13 11:37] VITALS: BP 125/80; PULSE 83; RESP 16; TEMP 36.6; BMI 42.2
== END 2018-11-13 23:59 ==
LOC: WC 11:30
PROVIDERS: Family Provider Family Medicine; PCP Family Medicine; Visit Provider Internal Medicine
DX: I73.9 Peripheral vascular disease, unspecified (principal); I87.2 Venous insufficiency (chronic) (peripheral); Z86.14 Personal history of Methicillin resistant Staphylococcus aureus infection; L97.822 Non-pressure chronic ulcer of other part of left lower leg with fat layer exposed; I48.91 Unspecified atrial fibrillation; Z79.01 Long term (current) use of anticoagulants; S80.12XS Contusion of left lower leg, sequela; X58.XXXS Exposure to other specified factors, sequela
CPT/HCPCS: 15271; 29581; 87070; 87075; 87077; 87186; 87205; 99212; Q4186; G0463

== ENCOUNTER 2018-12-11 11:00 | Outpatient (RCR) | payer OTHER, SELFPAY ==
[2018-11-14 00:45] VITALS: BP 125/80; PULSE 83; RESP 16; TEMP 36.6
[2018-11-18 09:31] VITALS: BP 149/79; PULSE 50; RESP 18; TEMP 35.9; BMI 42.2
--- NOTE | 2018-11-18 11:07 | PCM.WC.PN ---
(1) Ulcer of left lower extremity with fat layer exposed Status: Chronic Current Visit: Yes Code(s): L97.922 - Non-pressure chronic ulcer of unspecified part of left lower leg with fat layer exposed (2) PAD (peripheral artery disease) Status: Chronic Current Visit: Yes Code(s): I73.9 - Peripheral vascular disease, unspecified (3) Venous insufficiency Status: Chronic Current Visit: Yes Code(s): I87.2 - Venous insufficiency (chronic) (peripheral) (4) Delayed wound healing Status: Chronic Current Visit: Yes Code(s): T14.8XXD - Other injury of unspecified body region, subsequent encounter Type of Wound Chief Complaint: Left lower extremity ulcer - Delayed healing. History of Wound: Mr. Chauhan is a 62 year old with PMH as stated above who presented here due to delayed healing of his left lower extremity wound. He denies chills, fever, nausea, vomitting or loss of appetite. He changes dressing as advised. He has 1 more day of Bactrim for treatment of MRSA. He denies ulcer or redness. Progress of Wound: 7 applications of Epifix so far. Currently on antibiotics per culture and sensitivity - Physical Exam Vital Signs Temp Pulse Resp BP 96.6 F L 50 L 18 149/79 H 11/18/18 09:31 11/18/18 09:31 11/18/18 09:31 11/18/18 09:31 General: Alert, Oriented x3, Cooperative, No apparent distress HEENT: Atraumatic, Normocephalic Oral: Moist Mucosa Neck: Supple Lungs: Normal air movement Abdomen: Non Tender, Obese Extremities: No cyanosis, Edema Skin: Ulcer/ Wound Wound Measurements and Assessment WC - Nurse 1 - General Ulcer Measurement Start: 11/18/18 09:31 Freq: Status: Active Protocol: Activity Type Activity Date Activity User E-Sign Co-Sign Detail Recorded Client Recorded Date Recorded By Document 11/18/18 09:31 DL [id number] 11/18/18 09:37 DL 11/18/18 09:31 Wound Center Nurse 1 [Ulcer Assessment] 1. L LATERAL LOWER EXTREMITY -Current Size (cm) - Length 6 -Current Size (cm) - Width 1.8 -Current Size (cm) - Depth 0.2 -Total Square Cm 10.8 -Photo Taken No -Exudate Amt Small -Exudate Type Serosanguineous -Wound Margin Distinct, Outline Attached -Granulation Amt Large (67-100%) -Granulation Quality [place] Red -Necrosis Amt Small (1-33%) -Necrotic Tissue Type Adherent Slough -Structure Exposed N/A -Texture (Kirstie-wound Skin Appearance) Scarring -Moisture (Kirstie-wound Skin Appearance Dry/Scaly ) -Color (Kirstie-wound Skin Appearance) Hemosiderin Staining -Temperature (Kirstie-wound Skin No Abnormality Appearance) (Pt Warm) -Tenderness on Palpation (Kirstie-wound No Skin Appearance) -Ulcer Cleansing Wound Cleanser -Foul Odor after Cleansing No -Anesthetic Used 4% Lidocaine Solution [Edema Assessment] -Left Calf (cm) 35.3 -Left Ankle (cm) 22 WC - Nurse 2 - General Ulcer CM Notes Start: 11/18/18 09:31 Freq: Status: Active Protocol: Activity Type Activity Date Activity User E-Sign Co-Sign Detail Recorded Client Recorded Date Recorded By Document 11/18/18 10:13 MW [id number] 11/18/18 10:19 MW 11/18/18 10:13 Wound Center Nurse 2 [Procedure/Treatment] 1. L LATERAL LOWER EXTREMITY -Time 10:13 -Correct Patient Yes -Correct Side, Site, Position Yes -Correct Procedure Yes -Procedure Performed Yes -Type of Procedure Debridement -Clinical Debridement Subcutaneous -Post Debridement Size (cm) - Length 6.3 -Post Debridement Size (cm) - Width 1.7 -Post Debridement Size (cm) - Depth 0.1 -Total Square Cm 10.71 -Wound/Ulcer Outcome Not Healed -Ulcer Cleansing Rinsed/ Irrigated with Saline -Foul Odor after Cleansing No -Bioengineered Tissue Yes -Type of bioengineered Tissue EPIFIX -Expiration Date 03/16/23 -Product Lot Number [id number] -Percent Used 100 -Saline Lot Number [id number] -Bleeding Controlled with Pressure -Offloading No -Treatment Response Procedure Tolerated Well [See Physician Procedure note for Specifics] Pain Scale: 0-10 Numeric [Pain] -Is Patient Pain Free? Yes Musculoskeletal: No Muscle Wasting Neurological: Cranial nerves II-XII grossly intact Psych/Mental Status: Normal Affect Debridement Note Post-Debridement Measurements/Treatment WC - Nurse 2 - General Ulcer CM Notes Start: 11/18/18 09:31 Freq: Status: Active Protocol: Activity Type Activity Date Activity User E-Sign Co-Sign Detail Recorded Client Recorded Date Recorded By Document 11/18/18 10:13 MW [id number] 11/18/18 10:19 MW 11/18/18 10:13 Wound Center Nurse 2 1. L LATERAL LOWER EXTREMITY -Time 10:13 -Correct Patient Yes -Correct Side, Site, Position Yes -Correct Procedure Yes -Procedure Performed Yes -Type of Procedure Debridement -Clinical Debridement Subcutaneous -Post Debridement Size (cm) - Length 6.3 -Post Debridement Size (cm) - Width 1.7 -Post Debridement Size (cm) - Depth 0.1 -Total Square Cm 10.71 -Wound/Ulcer Outcome Not Healed -Ulcer Cleansing Rinsed/ Irrigated with Saline -Foul Odor after Cleansing No -Bioengineered Tissue Yes -Type of bioengineered Tissue EPIFIX -Expiration Date 03/16/23 -Product Lot Number [id number] -Percent Used 100 -Saline Lot Number [id number] -Bleeding Controlled with Pressure -Offloading No -Treatment Response Procedure Tolerated Well Pain Scale: 0-10 Numeric Is Patient Pain Free? Yes Wound debrided: Left lower extremity Wound Grade/Stage: Stage III Type of Debridement: Excisional debridement Depth: Down to and including healthy tissue, in the subcutaneous layer Percentage of wound debrided: 100 Instrument Used: 5mm curette Tissue Removed: slough and devitalized tissue Severity: Fat Layer Exposed Amount of bleeding with debridement: Mild Bleeding Controlled with: Pressure Patient tolerated procedure well Assessment/Plan Active Problems PAD (peripheral artery disease) (Chronic) Ulcer of left lower extremity with fat layer exposed (Chronic) Venous insufficiency (Chronic) Delayed wound healing (Chronic) Assessment: Left lower extremity ulcer post I and D with delayed healing. Peripheral arterial disease. Delayed healing. Lower extremity with venous insufficiency. Arterial calcification Plan: Improvement noted today. Currently on Ominicef. Debridement done as documented above, procedure was well tolerated. 8th application of Epifix done using 100% of product. Wound veil and guaze over top. Leave in place x 1 week. Continue 3M wrap for edema managemen. Follow up on friday for a nurse visit to monitor drainage.Will definitely continue to require advanced wound care products such as Epifix. Initilally did well with traditional wound care product however plateaued after a while. Switched to Grafix and again did well however seemed to have developed a ? reaction and subsequent infection necessitating need to revert to acetic acid solution and then Pomogran. Strongly advised to Elevate lower extremities when seated and in bed. Not open to following up with Vascular surgery. On Xarelto for Afib. His questions were answered and he was advised to call with any further questions or concerns. Follow-up in [address] Willson. This note was generated with [employer] dictation software. It may contain incorrect words, spelling, and punctuation that were not noted in checking the note before signing.
--- NOTE | 2018-11-18 11:12 | PN.PCM_ITS ---
(1) Ulcer of left lower extremity with fat layer exposed Status: Chronic Current Visit: Yes Code(s): L97.922 - Non-pressure chronic ulcer of unspecified part of left lower leg with fat layer exposed (2) PAD (peripheral artery disease) Status: Chronic Current Visit: Yes Code(s): I73.9 - Peripheral vascular disease, unspecified (3) Venous insufficiency Status: Chronic Current Visit: Yes Code(s): I87.2 - Venous insufficiency (chronic) (peripheral) (4) Delayed wound healing Status: Chronic Current Visit: Yes Code(s): T14.8XXD - Other injury of unspecified body region, subsequent encounter Type of Wound Chief Complaint: Left lower extremity ulcer - Delayed healing. History of Wound: Mr. Chauhan is a 62 year old with PMH as stated above who presented here due to delayed healing of his left lower extremity wound. He denies chills, fever, nausea, vomitting or loss of appetite. He changes dressing as advised. He has 1 more day of Bactrim for treatment of MRSA. He denies ulcer or redness. Progress of Wound: 7 applications of Epifix so far. Currently on antibiotics per culture and sensitivity - Physical Exam Vital Signs Temp Pulse Resp BP 96.6 F L 50 L 18 149/79 H 11/18/18 09:31 11/18/18 09:31 11/18/18 09:31 11/18/18 09:31 General: Alert, Oriented x3, Cooperative, No apparent distress HEENT: Atraumatic, Normocephalic Oral: Moist Mucosa Neck: Supple Lungs: Normal air movement Abdomen: Non Tender, Obese Extremities: No cyanosis, Edema Skin: Ulcer/ Wound Wound Measurements and Assessment WC - Nurse 1 - General Ulcer Measurement Start: 11/18/18 09:31 Freq: Status: Active Protocol: Activity Type Activity Date Activity User E-Sign Co-Sign Detail Recorded Client Recorded Date Recorded By Document 11/18/18 09:31 DL [id number] 11/18/18 09:37 DL 11/18/18 09:31 Wound Center Nurse 1 [Ulcer Assessment] 1. L LATERAL LOWER EXTREMITY -Current Size (cm) - Length 6 -Current Size (cm) - Width 1.8 -Current Size (cm) - Depth 0.2 -Total Square Cm 10.8 -Photo Taken No -Exudate Amt Small -Exudate Type Serosanguineous -Wound Margin Distinct, Outline Attached -Granulation Amt Large (67-100%) -Granulation Quality [place] Red -Necrosis Amt Small (1-33%) -Necrotic Tissue Type Adherent Slough -Structure Exposed N/A -Texture (Kirstie-wound Skin Appearance) Scarring -Moisture (Kirstie-wound Skin Appearance Dry/Scaly ) -Color (Kirstie-wound Skin Appearance) Hemosiderin Staining -Temperature (Kirstie-wound Skin No Abnormality Appearance) (Pt Warm) -Tenderness on Palpation (Kirstie-wound No Skin Appearance) -Ulcer Cleansing Wound Cleanser -Foul Odor after Cleansing No -Anesthetic Used 4% Lidocaine Solution [Edema Assessment] -Left Calf (cm) 35.3 -Left Ankle (cm) 22 WC - Nurse 2 - General Ulcer CM Notes Start: 11/18/18 09:31 Freq: Status: Active Protocol: Activity Type Activity Date Activity User E-Sign Co-Sign Detail Recorded Client Recorded Date Recorded By Document 11/18/18 10:13 MW [id number] 11/18/18 10:19 MW 11/18/18 10:13 Wound Center Nurse 2 [Procedure/Treatment] 1. L LATERAL LOWER EXTREMITY -Time 10:13 -Correct Patient Yes -Correct Side, Site, Position Yes -Correct Procedure Yes -Procedure Performed Yes -Type of Procedure Debridement -Clinical Debridement Subcutaneous -Post Debridement Size (cm) - Length 6.3 -Post Debridement Size (cm) - Width 1.7 -Post Debridement Size (cm) - Depth 0.1 -Total Square Cm 10.71 -Wound/Ulcer Outcome Not Healed -Ulcer Cleansing Rinsed/ Irrigated with Saline -Foul Odor after Cleansing No -Bioengineered Tissue Yes -Type of bioengineered Tissue EPIFIX -Expiration Date 03/16/23 -Product Lot Number [id number] -Percent Used 100 -Saline Lot Number [id number] -Bleeding Controlled with Pressure -Offloading No -Treatment Response Procedure Tolerated Well [See Physician Procedure note for Specifics] Pain Scale: 0-10 Numeric [Pain] -Is Patient Pain Free? Yes Musculoskeletal: No Muscle Wasting Neurological: Cranial nerves II-XII grossly intact Psych/Mental Status: Normal Affect Debridement Note Post-Debridement Measurements/Treatment WC - Nurse 2 - General Ulcer CM Notes Start: 11/18/18 09:31 Freq: Status: Active Protocol: Activity Type Activity Date Activity User E-Sign Co-Sign Detail Recorded Client Recorded Date Recorded By Document 11/18/18 10:13 MW [id number] 11/18/18 10:19 MW 11/18/18 10:13 Wound Center Nurse 2 1. L LATERAL LOWER EXTREMITY -Time 10:13 -Correct Patient Yes -Correct Side, Site, Position Yes -Correct Procedure Yes -Procedure Performed Yes -Type of Procedure Debridement -Clinical Debridement Subcutaneous -Post Debridement Size (cm) - Length 6.3 -Post Debridement Size (cm) - Width 1.7 -Post Debridement Size (cm) - Depth 0.1 -Total Square Cm 10.71 -Wound/Ulcer Outcome Not Healed -Ulcer Cleansing Rinsed/ Irrigated with Saline -Foul Odor after Cleansing No -Bioengineered Tissue Yes -Type of bioengineered Tissue EPIFIX -Expiration Date 03/16/23 -Product Lot Number [id number] -Percent Used 100 -Saline Lot Number [id number] -Bleeding Controlled with Pressure -Offloading No -Treatment Response Procedure Tolerated Well Pain Scale: 0-10 Numeric Is Patient Pain Free? Yes Wound debrided: Left lower extremity Wound Grade/Stage: Stage III Type of Debridement: Excisional debridement Depth: Down to and including healthy tissue, in the subcutaneous layer Percentage of wound debrided: 100 Instrument Used: 5mm curette Tissue Removed: slough and devitalized tissue Severity: Fat Layer Exposed Amount of bleeding with debridement: Mild Bleeding Controlled with: Pressure Patient tolerated procedure well Assessment/Plan Active Problems PAD (peripheral artery disease) (Chronic) Ulcer of left lower extremity with fat layer exposed (Chronic) Venous insufficiency (Chronic) Delayed wound healing (Chronic) Assessment: Left lower extremity ulcer post I and D with delayed healing. Peripheral arterial disease. Delayed healing. Lower extremity with venous insufficiency. Arterial calcification Plan: Improvement noted today. Currently on Ominicef. Debridement done as documented above, procedure was well tolerated. 8th application of Epifix done using 100% of product. Wound veil and guaze over top. Leave in place x 1 week. Continue 3M wrap for edema managemen. Follow up on friday for a nurse visit to monitor drainage.Will definitely continue to require advanced wound care products such as Epifix. Initilally did well with traditional wound care product however plateaued after a while. Switched to Grafix and again did well however seemed to have developed a ? reaction and subsequent infection necessitating need to revert to acetic acid solution and then Pomogran. Strongly advised to Elevate lower extremities when seated and in bed. Not open to following up with Vascular surgery. On Xarelto for Afib. His questions were answered and he was advised to call with any further questions or concerns. Follow-up in [address] Willson. This note was generated with [employer] dictation software. It may contain incorrect words, spelling, and punctuation that were not noted in checking the note before signing.
[2018-11-20 11:02] VITALS: BP 136/86; PULSE 89; RESP 18; TEMP 36.9; BMI 42.2
[2018-11-25 13:23] VITALS: BP 130/98; PULSE 81; RESP 18; TEMP 36.7; BMI 42.2
[2018-11-27 11:08] VITALS: BP 132/83; PULSE 85; RESP 16; TEMP 36.8; BMI 42.2
--- NOTE | 2018-11-27 18:40 | PCM.WC.HP ---
(1) HTN (hypertension) Status: Chronic Current Visit: Yes Qualifiers: Hypertension type: essential hypertension Qualified Code(s): I10 - Essential (primary) hypertension Code(s): I10 - Essential (primary) hypertension (2) PAD (peripheral artery disease) Status: Chronic Current Visit: Yes Code(s): I73.9 - Peripheral vascular disease, unspecified (3) Ulcer of left lower extremity with fat layer exposed Status: Chronic Current Visit: Yes Code(s): L97.922 - Non-pressure chronic ulcer of unspecified part of left lower leg with fat layer exposed (4) Venous insufficiency Status: Chronic Current Visit: Yes Code(s): I87.2 - Venous insufficiency (chronic) (peripheral) (5) Malnutrition Status: Chronic Current Visit: Yes Qualifiers: Malnutrition type: protein-calorie malnutrition Protein-calorie malnutrition severity: moderate Qualified Code(s): E44.0 - Moderate protein-calorie malnutrition Code(s): E46 - Unspecified protein-calorie malnutrition History of Present Illness Date of Service: 11/27/18 Chief Complaint: Left lower extremity ulcer - Delayed healing. History of Wound: Mr. Chauhan is a 62 year old with PMH as stated below who presented to the wound center due to delayed healing of his left lower extremity ulcer which occurred after he developed a large hematoma after a fall and subsequent fibular fracture. He underwent incision and drainge of the hematoma with subsequent wound vac treatment for 7 days after surgery. After discontinuing the wound vac, he had applied a collagen dressing to the wound. He has been seeing Dr. Ribeiro and has been undergoing application of Epifix to heal his ulcer. He has been taking cefdinir to treat positive wound culture of pseudomonas and has approx. 5 days left but continues to have erythema and drainage. He denies chills, fever, nausea, vomitting or loss of appetite. Past Medical History Past Medical History: Chronic Problems HTN (hypertension) (Chronic) Wound of left lower extremity (Chronic) Post debridement/hematoma evacuation. PAD (peripheral artery disease) (Chronic) Ulcer of left lower extremity with fat layer exposed (Chronic) Venous insufficiency (Chronic) Malnutrition (Chronic) Delayed wound healing (Chronic) Leg edema, left (Chronic) Surgical History: - - carpal tunnel release (R ) Allergies/Adverse Reactions: Allergies Tetracyclines Allergy (Verified 05/15/18 08:32) Swelling Home Medications: Ambulatory Orders Medication Instructions Recorded Amiodarone HCl [Cordarone] 200 mg PO DAILY 10/23/13 Calcium Carbonate/Vitamin D3 1 ea PO DAILY 10/23/13 [Calcium 500 + D Tablet] Metoprolol Tartrate [Lopressor 25 mg PO BID 10/23/13 (Beta Jaime)] Spironolactone [Aldactone] 25 mg PO BID 10/23/13 Aspirin [Aspirin, Baby] 81 mg PO QHS 11/16/17 Atorvastatin Calcium [Lipitor] 20 mg PO QHS 11/16/17 Indapamide 1.25 mg PO DAILY 11/16/17 Levothyroxine Sodium [Synthroid] 125 mcg PO DAILY 11/16/17 Potassium Chloride [Klor-Con M20] 20 meq PO UD 01/28/18 Mirtazapine [Remeron] 30 mg PO QHS 05/15/18 - Family History Maternal No pertinent history Smoking Status: Never smoker Tobacco Use: Non-smoker Alcohol: None Drugs: None Review of Systems Constitutional: Denies: Chills, Fever, Weight Change Eyes: Denies: Pain, Vision Change HEENT: Denies: Difficulty Hearing, Difficulty Swallowing, Sinus Congestion Cardiovascular: Denies: Chest Pain, Palpitations Respiratory: Denies: Cough, Shortness of Breath Gastrointestinal: Denies: Diarrhea, Nausea, Vomiting Genitourinary: Denies: Dysuria, Hematuria Skin: Reports: Wounds Endocrine: Denies: Heat/ Cold Intolerance, Polydipsia, Polyuria Hematologic/ Lymphatic: Denies: Easy Bruising, Easy Bleeding - Physical Exam Vital Signs Temp Pulse Resp BP 98.2 F 85 16 132/83 H 11/27/18 11:08 11/27/18 11:08 11/27/18 11:08 11/27/18 11:08 General: Alert, Oriented x3, Cooperative, No apparent distress HEENT: Atraumatic, Normocephalic Oral: Moist Mucosa Neck: Supple Lungs: Clear to auscultation Cardiovascular: Regular rate, Regular Rhythm Abdomen: Soft, Non Tender, Obese Extremities: Edema Skin: Ulcer/ Wound Wound Measurements and Assessment WC - Nurse 1 - General Ulcer Measurement Start: 11/18/18 09:31 Freq: Status: Active Protocol: Activity Type Activity Date Activity User E-Sign Co-Sign Detail Recorded Client Recorded Date Recorded By Document 11/25/18 13:23 RAUL [id number] 11/25/18 13:27 AN Document 11/27/18 11:08 [id number] 11/27/18 11:20 11/25/18 11/27/18 13:23 11:08 [Ulcer Assessment] 1. L LATERAL LOWER EXTREMITY -Combined with other wound No -Current Size (cm) - Length 5.7 -Current Size (cm) - Width 1.6 -Current Size (cm) - Depth 0.2 -Total Square Cm 9.12 -Photo Taken No -Epithelialization None Present -Tunneling No -Undermining/Tunneling No -Circular Undermining No -Exudate Amt Medium -Exudate Type Serosanguineous -Wound Margin Distinct, Outline Attached -Granulation Amt Medium (34-66%) -Granulation Quality Red -Slough/Fibrin Yes -Necrosis Amt None Present (0 %) -Structure Exposed None/Limited to Skin Breakdown -Texture (Kirstie-wound Skin Appearance) Excoriation -Moisture (Kirstie-wound Skin Appearance Weeping ) -Color (Kirstie-wound Skin Appearance) Erythema -Temperature (Kirstie-wound Skin No Abnormality Appearance) (Pt Warm) -Tenderness on Palpation (Kirstie-wound No Skin Appearance) -Foul Odor after Cleansing No -Anesthetic Used 5% Lidocaine Gel Wound Center Nurse 1 [Edema Assessment] -Lower Limb Edema Present Yes -Left Calf (cm) 36.5 37.5 -Left Ankle (cm) 22.6 23.8 WC - Nurse 2 - General Ulcer CM Notes Start: 11/18/18 09:31 Freq: Status: Active Protocol: Activity Type Activity Date Activity User E-Sign Co-Sign Detail Recorded Client Recorded Date Recorded By Document 11/27/18 12:03 CARLOS [id number] 11/27/18 12:11 CARLOS 11/27/18 12:03 Wound Center Nurse 2 [Procedure/Treatment] 1. L LATERAL LOWER EXTREMITY -Time 12:03 -Correct Patient Yes -Correct Side, Site, Position Yes -Correct Procedure Yes -Procedure Performed Yes -Type of Procedure Debridement -Clinical Debridement Subcutaneous -Post Debridement Size (cm) - Length 6.5 -Post Debridement Size (cm) - Width 1.8 -Post Debridement Size (cm) - Depth 0.2 -Total Square Cm 11.70 -Wound/Ulcer Outcome Not Healed -Ulcer Cleansing Rinsed/ Irrigated with Saline -Foul Odor after Cleansing No -Bioengineered Tissue Yes -Type of bioengineered Tissue EPIFIX -Expiration Date 03/16/23 -Product Lot Number [id number] -Percent Used 100 -Saline Lot Number [id number] -Topical Lidocaine (%) 5 -Bleeding Controlled with Pressure -Offloading No -Treatment Response Procedure Tolerated Well [See Physician Procedure note for Specifics] Pain Scale: 0-10 Numeric [Pain] -Is Patient Pain Free? Yes Psych/Mental Status: Normal Affect, Appropriate Debridement Note Post-Debridement Measurements/Treatment WC - Nurse 2 - General Ulcer CM Notes Start: 11/18/18 09:31 Freq: Status: Active Protocol: Activity Type Activity Date Activity User E-Sign Co-Sign Detail Recorded Client Recorded Date Recorded By Document 11/18/18 10:13 MW [id number] 11/18/18 10:19 MW Document 11/27/18 12:03 DV [id number] 11/27/18 12:11 DV 11/18/18 11/27/18 10:13 12:03 Wound Center Nurse 2 1. L LATERAL LOWER EXTREMITY -Time 10:13 12:03 -Correct Patient Yes Yes -Correct Side, Site, Position Yes Yes -Correct Procedure Yes Yes -Procedure Performed Yes Yes -Type of Procedure Debridement Debridement -Clinical Debridement Subcutaneous Subcutaneous -Post Debridement Size (cm) - Length 6.3 6.5 -Post Debridement Size (cm) - Width 1.7 1.8 -Post Debridement Size (cm) - Depth 0.1 0.2 -Total Square Cm 10.71 11.70 -Wound/Ulcer Outcome Not Healed Not Healed -Ulcer Cleansing Rinsed/ Rinsed/ Irrigated with Irrigated with Saline Saline -Foul Odor after Cleansing No No -Bioengineered Tissue Yes Yes -Type of bioengineered Tissue EPIFIX EPIFIX -Expiration Date 03/16/23 03/16/23 -Product Lot Number [id number] -Percent Used 100 100 -Saline Lot Number [id number] -Topical Lidocaine (%) 5 -Bleeding Controlled with Pressure Pressure -Offloading No No -Treatment Response Procedure Procedure Tolerated Well Tolerated Well Pain Scale: 0-10 Numeric Is Patient Pain Free? Yes Yes Wound debrided: left lateral LE Laterality: Left Type of Debridement: Excisional debridement Anesthesia Used: 4% Lidocaine Solution, 5% Lidocaine Gel Depth: Down to and including healthy tissue, in the subcutaneous layer Percentage of wound debrided: 100 Instrument Used: 5mm curette Tissue Removed: yellow slough, devitalized tissue Severity: Fat Layer Exposed Amount of bleeding with debridement: Mild Bleeding Controlled with: Compression and gauze Patient tolerated procedure well Assessment/Plan Active Problems HTN (hypertension) (Chronic) PAD (peripheral artery disease) (Chronic) Ulcer of left lower extremity with fat layer exposed (Chronic) Venous insufficiency (Chronic) Malnutrition (Chronic) Delayed wound healing (Chronic) Assessment: Left lower extremity ulcer post I and D with delayed healing. Peripheral arterial disease. Delayed healing. Lower extremity with venous insufficiency. Arterial calcification Plan: Ramón's ulcer was evaluated and debrided today. Minimal improvement noted today. Currently on Ominicef for positive wound culture. Will discontinue this and try ciprofloxacin to see if he has improvement. Subcutaneous debridement done as documented above, procedure was well tolerated. 9th application of Epifix done using 100% of product per display decorator guidelines. Wound veil and steri-strips used to secure. He was advised to leave this in place x 1 week and not to get it wet. Will continue 3M wrap for edema management. He will definitely continue to require advanced wound care product application such as Epifix. He was previously using Grafix and again did well however seemed to have developed a ? reaction and subsequent infection necessitating need to revert to acetic acid solution and then Promogran. Encouraged to elevate lower extremities when seated and in bed. He refuses referral with Vascular surgery. On Xarelto for Afib. His questions were answered and he was advised to call with any further questions or concerns. Follow-up in 1 week. This note was generated with [email or web address] software. It may contain incorrect words, spelling, and punctuation that were not noted in checking the note before signing.
--- NOTE | 2018-11-27 18:44 | HP.PCM_ITS ---
(1) HTN (hypertension) Status: Chronic Current Visit: Yes Qualifiers: Hypertension type: essential hypertension Qualified Code(s): I10 - Essential (primary) hypertension Code(s): I10 - Essential (primary) hypertension (2) PAD (peripheral artery disease) Status: Chronic Current Visit: Yes Code(s): I73.9 - Peripheral vascular disease, unspecified (3) Ulcer of left lower extremity with fat layer exposed Status: Chronic Current Visit: Yes Code(s): L97.922 - Non-pressure chronic ulcer of unspecified part of left lower leg with fat layer exposed (4) Venous insufficiency Status: Chronic Current Visit: Yes Code(s): I87.2 - Venous insufficiency (chronic) (peripheral) (5) Malnutrition Status: Chronic Current Visit: Yes Qualifiers: Malnutrition type: protein-calorie malnutrition Protein-calorie malnutrition severity: moderate Qualified Code(s): E44.0 - Moderate protein- calorie malnutrition Code(s): E46 - Unspecified protein-calorie malnutrition History of Present Illness Date of Service: 11/27/18 Chief Complaint: Left lower extremity ulcer - Delayed healing. History of Wound: Mr. Chauhan is a 62 year old with PMH as stated below who presented to the wound center due to delayed healing of his left lower extremity ulcer which occurred after he developed a large hematoma after a fall and subsequent fibular fracture. He underwent incision and drainge of the hematoma with subsequent wound vac treatment for 7 days after surgery. After discontinuing the wound vac, he had applied a collagen dressing to the wound. He has been seeing Dr. Ribeiro and has been undergoing application of Epifix to heal his ulcer. He has been taking cefdinir to treat positive wound culture of pseudomonas and has approx. 5 days left but continues to have erythema and drainage. He denies chills, fever, nausea, vomitting or loss of appetite. Past Medical History Past Medical History: Chronic Problems HTN (hypertension) (Chronic) Wound of left lower extremity (Chronic) Post debridement/hematoma evacuation. PAD (peripheral artery disease) (Chronic) Ulcer of left lower extremity with fat layer exposed (Chronic) Venous insufficiency (Chronic) Malnutrition (Chronic) Delayed wound healing (Chronic) Leg edema, left (Chronic) Surgical History: - - carpal tunnel release (R ) Allergies/Adverse Reactions: Allergies Tetracyclines Allergy (Verified 05/15/18 08:32) Swelling Home Medications: Ambulatory Orders Medication Instructions Recorded Amiodarone HCl [Cordarone] 200 mg PO DAILY 10/23/13 Calcium Carbonate/Vitamin D3 1 ea PO DAILY 10/23/13 [Calcium 500 + D Tablet] Metoprolol Tartrate [Lopressor 25 mg PO BID 10/23/13 (Beta Jaime)] Spironolactone [Aldactone] 25 mg PO BID 10/23/13 Aspirin [Aspirin, Baby] 81 mg PO QHS 11/16/17 Atorvastatin Calcium [Lipitor] 20 mg PO QHS 11/16/17 Indapamide 1.25 mg PO DAILY 11/16/17 Levothyroxine Sodium [Synthroid] 125 mcg PO DAILY 11/16/17 Potassium Chloride [Klor-Con M20] 20 meq PO UD 01/28/18 Mirtazapine [Remeron] 30 mg PO QHS 05/15/18 - Family History Maternal No pertinent history Smoking Status: Never smoker Tobacco Use: Non-smoker Alcohol: None Drugs: None Review of Systems Constitutional: Denies: Chills, Fever, Weight Change Eyes: Denies: Pain, Vision Change HEENT: Denies: Difficulty Hearing, Difficulty Swallowing, Sinus Congestion Cardiovascular: Denies: Chest Pain, Palpitations Respiratory: Denies: Cough, Shortness of Breath Gastrointestinal: Denies: Diarrhea, Nausea, Vomiting Genitourinary: Denies: Dysuria, Hematuria Skin: Reports: Wounds Endocrine: Denies: Heat/ Cold Intolerance, Polydipsia, Polyuria Hematologic/ Lymphatic: Denies: Easy Bruising, Easy Bleeding - Physical Exam Vital Signs Temp Pulse Resp BP 98.2 F 85 16 132/83 H 11/27/18 11:08 11/27/18 11:08 11/27/18 11:08 11/27/18 11:08 General: Alert, Oriented x3, Cooperative, No apparent distress HEENT: Atraumatic, Normocephalic Oral: Moist Mucosa Neck: Supple Lungs: Clear to auscultation Cardiovascular: Regular rate, Regular Rhythm Abdomen: Soft, Non Tender, Obese Extremities: Edema Skin: Ulcer/ Wound Wound Measurements and Assessment WC - Nurse 1 - General Ulcer Measurement Start: 11/18/18 09:31 Freq: Status: Active Protocol: Activity Type Activity Date Activity User E-Sign Co-Sign Detail Recorded Client Recorded Date Recorded By Document 11/25/18 13:23 RAUL [id number] 11/25/18 13:27 AN Document 11/27/18 11:08 [id number] 11/27/18 11:20 11/25/18 11/27/18 13:23 11:08 [Ulcer Assessment] 1. L LATERAL LOWER EXTREMITY -Combined with other wound No -Current Size (cm) - Length 5.7 -Current Size (cm) - Width 1.6 -Current Size (cm) - Depth 0.2 -Total Square Cm 9.12 -Photo Taken No -Epithelialization None Present -Tunneling No -Undermining/Tunneling No -Circular Undermining No -Exudate Amt Medium -Exudate Type Serosanguineous -Wound Margin Distinct, Outline Attached -Granulation Amt Medium (34-66%) -Granulation Quality Red -Slough/Fibrin Yes -Necrosis Amt None Present (0 %) -Structure Exposed None/Limited to Skin Breakdown -Texture (Kirstie-wound Skin Appearance) Excoriation -Moisture (Kirstie-wound Skin Appearance Weeping ) -Color (Kirstie-wound Skin Appearance) Erythema -Temperature (Kirstie-wound Skin No Abnormality Appearance) (Pt Warm) -Tenderness on Palpation (Kirstie-wound No Skin Appearance) -Foul Odor after Cleansing No -Anesthetic Used 5% Lidocaine Gel Wound Center Nurse 1 [Edema Assessment] -Lower Limb Edema Present Yes -Left Calf (cm) 36.5 37.5 -Left Ankle (cm) 22.6 23.8 WC - Nurse 2 - General Ulcer CM Notes Start: 11/18/18 09:31 Freq: Status: Active Protocol: Activity Type Activity Date Activity User E-Sign Co-Sign Detail Recorded Client Recorded Date Recorded By Document 11/27/18 12:03 CARLOS [id number] 11/27/18 12:11 CARLOS 11/27/18 12:03 Wound Center Nurse 2 [Procedure/Treatment] 1. L LATERAL LOWER EXTREMITY -Time 12:03 -Correct Patient Yes -Correct Side, Site, Position Yes -Correct Procedure Yes -Procedure Performed Yes -Type of Procedure Debridement -Clinical Debridement Subcutaneous -Post Debridement Size (cm) - Length 6.5 -Post Debridement Size (cm) - Width 1.8 -Post Debridement Size (cm) - Depth 0.2 -Total Square Cm 11.70 -Wound/Ulcer Outcome Not Healed -Ulcer Cleansing Rinsed/ Irrigated with Saline -Foul Odor after Cleansing No -Bioengineered Tissue Yes -Type of bioengineered Tissue EPIFIX -Expiration Date 03/16/23 -Product Lot Number [id number] -Percent Used 100 -Saline Lot Number [id number] -Topical Lidocaine (%) 5 -Bleeding Controlled with Pressure -Offloading No -Treatment Response Procedure Tolerated Well [See Physician Procedure note for Specifics] Pain Scale: 0-10 Numeric [Pain] -Is Patient Pain Free? Yes Psych/Mental Status: Normal Affect, Appropriate Debridement Note Post-Debridement Measurements/Treatment WC - Nurse 2 - General Ulcer CM Notes Start: 11/18/18 09:31 Freq: Status: Active Protocol: Activity Type Activity Date Activity User E-Sign Co-Sign Detail Recorded Client Recorded Date Recorded By Document 11/18/18 10:13 MW [id number] 11/18/18 10:19 MW Document 11/27/18 12:03 DV [id number] 11/27/18 12:11 DV 11/18/18 11/27/18 10:13 12:03 Wound Center Nurse 2 1. L LATERAL LOWER EXTREMITY -Time 10:13 12:03 -Correct Patient Yes Yes -Correct Side, Site, Position Yes Yes -Correct Procedure Yes Yes -Procedure Performed Yes Yes -Type of Procedure Debridement Debridement -Clinical Debridement Subcutaneous Subcutaneous -Post Debridement Size (cm) - Length 6.3 6.5 -Post Debridement Size (cm) - Width 1.7 1.8 -Post Debridement Size (cm) - Depth 0.1 0.2 -Total Square Cm 10.71 11.70 -Wound/Ulcer Outcome Not Healed Not Healed -Ulcer Cleansing Rinsed/ Rinsed/ Irrigated with Irrigated with Saline Saline -Foul Odor after Cleansing No No -Bioengineered Tissue Yes Yes -Type of bioengineered Tissue EPIFIX EPIFIX -Expiration Date 03/16/23 03/16/23 -Product Lot Number [id number] -Percent Used 100 100 -Saline Lot Number [id number] -Topical Lidocaine (%) 5 -Bleeding Controlled with Pressure Pressure -Offloading No No -Treatment Response Procedure Procedure Tolerated Well Tolerated Well Pain Scale: 0-10 Numeric Is Patient Pain Free? Yes Yes Wound debrided: left lateral LE Laterality: Left Type of Debridement: Excisional debridement Anesthesia Used: 4% Lidocaine Solution, 5% Lidocaine Gel Depth: Down to and including healthy tissue, in the subcutaneous layer Percentage of wound debrided: 100 Instrument Used: 5mm curette Tissue Removed: yellow slough, devitalized tissue Severity: Fat Layer Exposed Amount of bleeding with debridement: Mild Bleeding Controlled with: Compression and gauze Patient tolerated procedure well Assessment/Plan Active Problems HTN (hypertension) (Chronic) PAD (peripheral artery disease) (Chronic) Ulcer of left lower extremity with fat layer exposed (Chronic) Venous insufficiency (Chronic) Malnutrition (Chronic) Delayed wound healing (Chronic) Assessment: Left lower extremity ulcer post I and D with delayed healing. Peripheral arterial disease. Delayed healing. Lower extremity with venous insufficiency. Arterial calcification Plan: Ramón's ulcer was evaluated and debrided today. Minimal improvement noted today. Currently on Ominicef for positive wound culture. Will discontinue this and try ciprofloxacin to see if he has improvement. Subcutaneous debridement done as documented above, procedure was well tolerated. 9th application of Epifix done using 100% of product per clinical application manager guidelines. Wound veil and steri-strips used to secure. He was advised to leave this in place x 1 week and not to get it wet. Will continue 3M wrap for edema management. He will definitely continue to require advanced wound care product application such as Epifix. He was previously using Grafix and again did well however seemed to have developed a ? reaction and subsequent infection necessitating need to revert to acetic acid solution and then Promogran. Encouraged to elevate lower extremities when seated and in bed. He refuses referral with Vascular surgery. On Xarelto for Afib. His questions were answered and he was advised to call with any further questions or concerns. Follow-up in 1 week. This note was generated with [employer] software. It may contain incorrect words, spelling, and punctuation that were not noted in checking the note before signing.
[2018-12-01 15:15] VITALS: BP 113/79; PULSE 85; RESP 18; TEMP 37.2; BMI 42.2
[2018-12-04 08:43] VITALS: BP 136/89; PULSE 81; RESP 18; TEMP 36.4; BMI 42.2
--- NOTE | 2018-12-04 12:05 | PCM.WC.PN ---
(1) HTN (hypertension) Status: Chronic Current Visit: Yes Qualifiers: Hypertension type: essential hypertension Qualified Code(s): I10 - Essential (primary) hypertension Code(s): I10 - Essential (primary) hypertension (2) PAD (peripheral artery disease) Status: Chronic Current Visit: Yes Code(s): I73.9 - Peripheral vascular disease, unspecified (3) Ulcer of left lower extremity with fat layer exposed Status: Chronic Current Visit: Yes Code(s): L97.922 - Non-pressure chronic ulcer of unspecified part of left lower leg with fat layer exposed (4) Venous insufficiency Status: Chronic Current Visit: Yes Code(s): I87.2 - Venous insufficiency (chronic) (peripheral) (5) Malnutrition Status: Chronic Current Visit: Yes Qualifiers: Malnutrition type: protein-calorie malnutrition Protein-calorie malnutrition severity: moderate Qualified Code(s): E44.0 - Moderate protein-calorie malnutrition Code(s): E46 - Unspecified protein-calorie malnutrition Type of Wound Date of Service: 12/04/18 Chief Complaint: Left lower extremity ulcer - Delayed healing. History of Wound: Mr. Chauhan is a 62 year old with PMH as stated below who presented to the wound center due to delayed healing of his left lower extremity ulcer which occurred after he developed a large hematoma after a fall and subsequent fibular fracture. He underwent incision and drainge of the hematoma with subsequent wound vac treatment for 7 days after surgery. After discontinuing the wound vac, he had applied a collagen dressing to the wound. He denies chills, fever, nausea, vomitting or loss of appetite. Progress of Wound: Ramón is here today for follow up of nonhealing venous ulcer. He was given ciprofloxacin for treatment of positive wound cultures and has been tolerating and had improvement in his drainage. He tolerated Epifix #9 last week. He has had improvement in the size of his ulcer. Denies fever, chills, increased drainage or pain. - Physical Exam Vital Signs Temp Pulse Resp BP 97.5 F L 81 18 136/89 H 12/04/18 08:43 12/04/18 08:43 12/04/18 08:43 12/04/18 08:43 General: Alert, Oriented x3, Cooperative, No apparent distress HEENT: Atraumatic, Normocephalic Abdomen: Obese Skin: Ulcer/ Wound Wound Measurements and Assessment WC - Nurse 1 - General Ulcer Measurement Start: 11/18/18 09:31 Freq: Status: Active Protocol: Activity Type Activity Date Activity User E-Sign Co-Sign Detail Recorded Client Recorded Date Recorded By Document 12/04/18 08:43 RB [id number] 12/04/18 08:45 RB 12/04/18 08:43 Wound Center Nurse 1 [Ulcer Assessment] 1. L LATERAL LOWER EXTREMITY -Combined with other wound No -Current Size (cm) - Length 5.3 -Current Size (cm) - Width 1.4 -Current Size (cm) - Depth 0.1 -Total Square Cm 7.42 -Tunneling No -Undermining/Tunneling No -Circular Undermining No -Exudate Amt Small -Exudate Type Serosanguineous -Wound Margin Distinct, Outline Attached -Granulation Amt Medium (34-66%) -Granulation Quality [place],Red -Slough/Fibrin Yes -Necrosis Amt Small (1-33%) -Necrotic Tissue Type Adherent Slough -Structure Exposed N/A -Texture (Kirstie-wound Skin Appearance) Assessed, Scarring -Moisture (Kirstie-wound Skin Appearance Assessed ) -Color (Kirstie-wound Skin Appearance) Hemosiderin Staining -Temperature (Kirstie-wound Skin No Abnormality Appearance) (Pt Warm) -Tenderness on Palpation (Kirstie-wound No Skin Appearance) -Ulcer Cleansing Wound Cleanser -Foul Odor after Cleansing No -Anesthetic Used 5% Lidocaine Gel [Edema Assessment] -Lower Limb Edema Present Yes -Left Calf (cm) 35.7 -Left Ankle (cm) 23 WC - Nurse 2 - General Ulcer CM Notes Start: 11/18/18 09:31 Freq: Status: Active Protocol: Activity Type Activity Date Activity User E-Sign Co-Sign Detail Recorded Client Recorded Date Recorded By Document 12/04/18 09:02 AN [id number] 12/04/18 09:10 AN 12/04/18 09:02 Wound Center Nurse 2 [Procedure/Treatment] 1. L LATERAL LOWER EXTREMITY -Time 09:06 -Correct Patient Yes -Correct Side, Site, Position Yes -Correct Procedure Yes -Procedure Performed Yes -Type of Procedure Debridement -Clinical Debridement Subcutaneous -Post Debridement Size (cm) - Length 5.6 -Post Debridement Size (cm) - Width 1.5 -Post Debridement Size (cm) - Depth 0.2 -Total Square Cm 8.40 -Wound/Ulcer Outcome Not Healed -Ulcer Cleansing Rinsed/ Irrigated with Saline -Foul Odor after Cleansing No -Bioengineered Tissue Yes -Type of bioengineered Tissue EPIFIX -Expiration Date 03/16/23 -Product Lot Number [id number] -Percent Used 100 -Saline Lot Number [id number] -Bleeding Controlled with Pressure -Offloading No -Treatment Response Procedure Tolerated Well [See Physician Procedure note for Specifics] Pain Scale: 0-10 Numeric [Pain] -Is Patient Pain Free? Yes Psych/Mental Status: Normal Affect, Appropriate Debridement Note Post-Debridement Measurements/Treatment WC - Nurse 2 - General Ulcer CM Notes Start: 11/18/18 09:31 Freq: Status: Active Protocol: Activity Type Activity Date Activity User E-Sign Co-Sign Detail Recorded Client Recorded Date Recorded By Document 11/18/18 10:13 MW [id number] 11/18/18 10:19 MW Document 11/27/18 12:03 DV [id number] 11/27/18 12:11 DV Document 12/04/18 09:02 AN [id number] 12/04/18 09:10 AN 11/18/18 11/27/18 12/04/18 10:13 12:03 09:02 Wound Center Nurse 2 1. L LATERAL LOWER EXTREMITY -Time 10:13 12:03 09:06 -Correct Patient Yes Yes Yes -Correct Side, Site, Position Yes Yes Yes -Correct Procedure Yes Yes Yes -Procedure Performed Yes Yes Yes -Type of Procedure Debridement Debridement Debridement -Clinical Debridement Subcutaneous Subcutaneous Subcutaneous -Post Debridement Size (cm) - Length 6.3 6.5 5.6 -Post Debridement Size (cm) - Width 1.7 1.8 1.5 -Post Debridement Size (cm) - Depth 0.1 0.2 0.2 -Total Square Cm 10.71 11.70 8.40 -Wound/Ulcer Outcome Not Healed Not Healed Not Healed -Ulcer Cleansing Rinsed/ Rinsed/ Rinsed/ Irrigated with Irrigated with Irrigated with Saline Saline Saline -Foul Odor after Cleansing No No No -Bioengineered Tissue Yes Yes Yes -Type of bioengineered Tissue EPIFIX EPIFIX EPIFIX -Expiration Date 03/16/23 03/16/23 03/16/23 -Product Lot Number [id number] -Percent Used 100 100 100 -Saline Lot Number [id number] -Topical Lidocaine (%) 5 -Bleeding Controlled with Pressure Pressure Pressure -Offloading No No No -Treatment Response Procedure Procedure Procedure Tolerated Well Tolerated Well Tolerated Well Pain Scale: 0-10 Numeric Is Patient Pain Free? Yes Yes Yes Wound debrided: left lateral LE Laterality: Left Type of Debridement: Excisional debridement Anesthesia Used: 4% Lidocaine Solution, 5% Lidocaine Gel Depth: Down to and including healthy tissue, in the subcutaneous layer Percentage of wound debrided: 100 Instrument Used: 5mm curette Tissue Removed: yellow slough, devitalized tissue Severity: Fat Layer Exposed Amount of bleeding with debridement: Mild Bleeding Controlled with: Compression and gauze Patient tolerated procedure well Assessment/Plan Active Problems HTN (hypertension) (Chronic) PAD (peripheral artery disease) (Chronic) Ulcer of left lower extremity with fat layer exposed (Chronic) Venous insufficiency (Chronic) Malnutrition (Chronic) Delayed wound healing (Chronic) Assessment: Left lower extremity ulcer post I and D with delayed healing. Peripheral arterial disease. Delayed healing. Lower extremity with venous insufficiency. Arterial calcification Plan: Ramón's ulcer was evaluated and debrided today. Will complete ciprofloxacin. Subcutaneous debridement done as documented above, procedure was well tolerated. 10th application of Epifix done using 100% of product per hi teacher guidelines. Wound veil and steri-strips used to secure. He was advised to leave this in place x 1 week and not to get it wet. Will continue 3M wrap for edema management. He will definitely continue to require advanced wound care product application such as Epifix. He was previously using Grafix and again did well however seemed to have developed a ? reaction and subsequent infection necessitating need to revert to acetic acid solution and then Promogran. Encouraged to elevate lower extremities when seated and in bed. He refuses referral with Vascular surgery. On Xarelto for Afib. His questions were answered and he was advised to call with any further questions or concerns. Follow-up in 1 week. This note was generated with [employer] dictation software. It may contain incorrect words, spelling, and punctuation that were not noted in checking the note before signing.
[2018-12-09 10:11] VITALS: BP 127/87; PULSE 83; RESP 18; TEMP 36.6; BMI 42.2
--- NOTE | 2018-12-09 11:20 | EKG12_ITS ---
Test Reason : A-FIB Blood Pressure : / mmHG Vent. Rate : 078 BPM Atrial Rate : 075 BPM P-R Int : 000 ms QRS Dur : 130 ms QT Int : 440 ms P-R-T Axes : 000 024 070 degrees QTc Int : 501 ms Atrial fibrillation Non-specific intra-ventricular conduction block Nonspecific T wave abnormality , probably digitalis effect Abnormal ECG Confirmed by KIMBERLY KANG ([id number]), news copy editor SO MENEZES ([id number]) on 12/15/2018 11:51:07 AM Referred By: Isabelle Ribeiro Confirmed By:KIMBERLY KANG
[2018-12-09 12:25] LABS: ALB/GLOB Ratio 0.8 RATIO (0.9-2.4); AST(SGOT) 28 U/L (15-37); Alanine Aminotransfer ALT/SGPT 32 U/L (16-61); Albumin, Serum 3.3 g/dL (3.2-5.0); Alkaline Phosphatase 145 U/L (45-117); Anion Gap 5 (5-15); BUN 7 mg/dL (7-18); BUN/Creat Ratio 5.6 RATIO (10-20); Calcium,Total 8.8 mg/dL (8.5-10.1); Chloride 95 mmol/L (98-107); Creatinine, Serum 1.26 mg/dL (0.70-1.30); EST Glomerular Filtration Rate 61 mL/min (>60); Est Glom Filt Rate - Afr Amer 74 mL/min (>60); Globulin 3.9 g/dL (2.2-4.2); Glucose 91 mg/dL (74-106); Potassium 3.3 mmol/L (3.5-5.1); Protein, Total 7.2 g/dL (6.4-8.2); Sodium Level 130 mmol/L (136-145)
--- NOTE | 2018-12-09 20:03 | PCM.WC.PN ---
(1) Ulcer of left lower extremity with fat layer exposed Status: Chronic Current Visit: Yes Code(s): L97.922 - Non-pressure chronic ulcer of unspecified part of left lower leg with fat layer exposed (2) PAD (peripheral artery disease) Status: Chronic Current Visit: Yes Code(s): I73.9 - Peripheral vascular disease, unspecified (3) Venous insufficiency Status: Chronic Current Visit: Yes Code(s): I87.2 - Venous insufficiency (chronic) (peripheral) (4) Delayed wound healing Status: Chronic Current Visit: Yes Code(s): T14.8XXD - Other injury of unspecified body region, subsequent encounter Type of Wound Date of Service: 12/09/18 Chief Complaint: Left lower extremity ulcer - Delayed healing. History of Wound: Mr. Chauhan is a 62 year old with PMH as stated below who presented to the wound center due to delayed healing of his left lower extremity ulcer which occurred after he developed a large hematoma after a fall and subsequent fibular fracture. He underwent incision and drainge of the hematoma with subsequent wound vac treatment for 7 days after surgery. After discontinuing the wound vac, he had applied a collagen dressing to the wound. He denies chills, fever, nausea, vomitting or loss of appetite. Progress of Wound: No new concerns at this time. Has had 10 applications of epic so far. Also completed 10-day course of ciprofloxacin today. Also currently on amiodarone. Denies palpitations, chest pain or worsening shortness of breath. - Physical Exam Vital Signs Temp Pulse Resp BP 97.8 F 83 18 127/87 H 12/09/18 10:11 12/09/18 10:11 12/09/18 10:11 12/09/18 10:11 General: Alert, Oriented x3, Cooperative, No apparent distress HEENT: Atraumatic, Normocephalic Oral: Moist Mucosa Neck: Supple Lungs: Normal air movement Abdomen: Non Tender, Obese Extremities: No cyanosis Skin: Ulcer/ Wound Wound Measurements and Assessment WC - Nurse 1 - General Ulcer Measurement Start: 11/18/18 09:31 Freq: Status: Active Protocol: Activity Type Activity Date Activity User E-Sign Co-Sign Detail Recorded Client Recorded Date Recorded By Document 12/09/18 10:11 [facility] [id number] 12/09/18 10:19 [facility] 12/09/18 10:11 Wound Center Nurse 1 [Ulcer Assessment] 1. L LATERAL LOWER EXTREMITY -Combined with other wound No -Current Size (cm) - Length 4.7 -Current Size (cm) - Width 1.1 -Current Size (cm) - Depth 0.2 -Total Square Cm 5.17 -Photo Taken No -Epithelialization Small 1-33% -Tunneling No -Undermining/Tunneling No -Circular Undermining No -Wound Margin Distinct, Outline Attached -Granulation Amt Large (67-100%) -Granulation Quality Red -Slough/Fibrin Yes -Necrosis Amt Small (1-33%) -Necrotic Tissue Type Adherent Slough -Texture (Kirstie-wound Skin Appearance) Assessed, Scarring -Moisture (Kirstie-wound Skin Appearance Assessed,Dry/ ) Scaly -Color (Kirstie-wound Skin Appearance) Assessed, Erythema -Temperature (Kirstie-wound Skin No Abnormality Appearance) (Pt Warm) -Tenderness on Palpation (Kirstie-wound No Skin Appearance) -Ulcer Cleansing SOAP AND WATER -Foul Odor after Cleansing No -Anesthetic Used 4% Lidocaine Solution [Edema Assessment] -Lower Limb Edema Present Yes -Left Calf (cm) 35.5 -Left Ankle (cm) 22.6 WC - Nurse 2 - General Ulcer CM Notes Start: 11/18/18 09:31 Freq: Status: Active Protocol: Activity Type Activity Date Activity User E-Sign Co-Sign Detail Recorded Client Recorded Date Recorded By Document 12/09/18 10:31 MW [id number] 12/09/18 10:40 MW 12/09/18 10:31 Wound Center Nurse 2 [Procedure/Treatment] 1. L LATERAL LOWER EXTREMITY -Time 10:31 -Correct Patient Yes -Correct Side, Site, Position Yes -Correct Procedure Yes -Procedure Performed Yes -Type of Procedure Debridement -Clinical Debridement Subcutaneous -Post Debridement Size (cm) - Length 5.0 -Post Debridement Size (cm) - Width 1.0 -Post Debridement Size (cm) - Depth 0.1 -Total Square Cm 5.00 -Wound/Ulcer Outcome Not Healed -Ulcer Cleansing Rinsed/ Irrigated with Saline -Foul Odor after Cleansing No -Bioengineered Tissue Yes -Type of bioengineered Tissue EPIFIX -Expiration Date 03/16/23 -Product Lot Number [id number] -Percent Used 100 -Saline Lot Number [id number] -Bleeding Controlled with Pressure -Offloading No -Treatment Response Procedure Tolerated Well [See Physician Procedure note for Specifics] Pain Scale: 0-10 Numeric [Pain] -Is Patient Pain Free? Yes Musculoskeletal: No Muscle Wasting Neurological: Cranial nerves II-XII grossly intact Psych/Mental Status: Normal Affect Debridement Note Post-Debridement Measurements/Treatment WC - Nurse 2 - General Ulcer CM Notes Start: 11/18/18 09:31 Freq: Status: Active Protocol: Activity Type Activity Date Activity User E-Sign Co-Sign Detail Recorded Client Recorded Date Recorded By Document 11/18/18 10:13 MW [id number] 11/18/18 10:19 MW Document 11/27/18 12:03 DV [id number] 11/27/18 12:11 DV Document 12/04/18 09:02 AN [id number] 12/04/18 09:10 AN Document 12/09/18 10:31 MW [id number] 12/09/18 10:40 MW 11/18/18 11/27/18 12/04/18 10:13 12:03 09:02 Wound Center Nurse 2 1. L LATERAL LOWER EXTREMITY -Time 10:13 12:03 09:06 -Correct Patient Yes Yes Yes -Correct Side, Site, Position Yes Yes Yes -Correct Procedure Yes Yes Yes -Procedure Performed Yes Yes Yes -Type of Procedure Debridement Debridement Debridement -Clinical Debridement Subcutaneous Subcutaneous Subcutaneous -Post Debridement Size (cm) - Length 6.3 6.5 5.6 -Post Debridement Size (cm) - Width 1.7 1.8 1.5 -Post Debridement Size (cm) - Depth 0.1 0.2 0.2 -Total Square Cm 10.71 11.70 8.40 -Wound/Ulcer Outcome Not Healed Not Healed Not Healed -Ulcer Cleansing Rinsed/ Rinsed/ Rinsed/ Irrigated with Irrigated with Irrigated with Saline Saline Saline -Foul Odor after Cleansing No No No -Bioengineered Tissue Yes Yes Yes -Type of bioengineered Tissue EPIFIX EPIFIX EPIFIX -Expiration Date 03/16/23 03/16/23 03/16/23 -Product Lot Number [id number] -Percent Used 100 100 100 -Saline Lot Number [id number] -Topical Lidocaine (%) 5 -Bleeding Controlled with Pressure Pressure Pressure -Offloading No No No -Treatment Response Procedure Procedure Procedure Tolerated Well Tolerated Well Tolerated Well Pain Scale: 0-10 Numeric Is Patient Pain Free? Yes Yes Yes 12/09/18 10:31 Wound Center Nurse 2 1. L LATERAL LOWER EXTREMITY -Time 10:31 -Correct Patient Yes -Correct Side, Site, Position Yes -Correct Procedure Yes -Procedure Performed Yes -Type of Procedure Debridement -Clinical Debridement Subcutaneous -Post Debridement Size (cm) - Length 5.0 -Post Debridement Size (cm) - Width 1.0 -Post Debridement Size (cm) - Depth 0.1 -Total Square Cm 5.00 -Wound/Ulcer Outcome Not Healed -Ulcer Cleansing Rinsed/ Irrigated with Saline -Foul Odor after Cleansing No -Bioengineered Tissue Yes -Type of bioengineered Tissue EPIFIX -Expiration Date 03/16/23 -Product Lot Number [id number] -Percent Used 100 -Saline Lot Number [id number] -Topical Lidocaine (%) -Bleeding Controlled with Pressure -Offloading No -Treatment Response Procedure Tolerated Well Pain Scale: 0-10 Numeric Is Patient Pain Free? Yes Wound debrided: Left lower extremity Wound Grade/Stage: Stage III Type of Debridement: Excisional debridement Anesthesia Used: 4% Lidocaine Solution Depth: Down to and including healthy tissue, in the subcutaneous layer Percentage of wound debrided: 100 Instrument Used: 5mm curette Tissue Removed: Slough and devitalized tissue Severity: Fat Layer Exposed Amount of bleeding with debridement: Mild Bleeding Controlled with: Pressure Patient tolerated procedure well Assessment/Plan Active Problems HTN (hypertension) (Chronic) PAD (peripheral artery disease) (Chronic) Ulcer of left lower extremity with fat layer exposed (Chronic) Venous insufficiency (Chronic) Malnutrition (Chronic) Delayed wound healing (Chronic) Assessment: Left lower extremity ulcer post I and D with delayed healing. Peripheral arterial disease. Delayed healing. Lower extremity with venous insufficiency. Arterial calcification Plan: No new concerns at this time. Left lower extremity wound is improving. Completed a 10-day course of ciprofloxacin. Patient is also currently on amiodarone with risk for increased QT prolongation however, he denies palpitation, chest pain or worsening shortness of breath. Last EKG done was prior to ciprofloxacin administration. 11th application of Epifix done using 100% of product per carpenter inspector guidelines. Wound veil and steri-strips used to secure. He was advised to leave this in place x 1 week and not to get it wet. Will continue 3M wrap for edema management. He will definitely continue to require advanced wound care product application such as Epifix. He was previously using Grafix and again did well however seemed to have developed a ? reaction and subsequent infection necessitating need to revert to acetic acid solution and then Promogran. Encouraged to elevate lower extremities when seated and in bed. He refuses referral with Vascular surgery. On Xarelto for Afib. EKG and CMP ordered to monitor QT intervals and liver function respectively due to ciprofloxacin/amiodarone combo. Patient was informed of possible risk. His questions were answered and he was advised to call with any further questions or concerns. Follow-up in 1 week. This note was generated with [employer] dictation software. It may contain incorrect words, spelling, and punctuation that were not noted in checking the note before signing.
[2018-12-11 11:45] VITALS: BP 93/69; PULSE 91; RESP 18; TEMP 36.2; BMI 42.2
== END 2018-12-13 23:59 ==
LOC: WC 11:00
PROVIDERS: Family Provider Family Medicine; PCP Family Medicine; Referring Provider Internal Medicine; Visit Provider Internal Medicine
DX: I73.9 Peripheral vascular disease, unspecified (principal); I87.2 Venous insufficiency (chronic) (peripheral); L97.822 Non-pressure chronic ulcer of other part of left lower leg with fat layer exposed; Z86.14 Personal history of Methicillin resistant Staphylococcus aureus infection; I48.91 Unspecified atrial fibrillation; Z79.01 Long term (current) use of anticoagulants
CPT/HCPCS: 11042; 15271; 29581; 36415; 80053; 93005; 99212; Q4186; G0463

== ENCOUNTER → 2018-12-14 | Outpatient (CLI) | payer OTHER, SELFPAY ==
[2018-12-11 11:45] VITALS: BMI 42.2
[2018-12-14 09:10] LABS: ALB/GLOB Ratio 0.9 RATIO (0.9-2.4); AST(SGOT) 21 U/L (15-37); Alanine Aminotransfer ALT/SGPT 26 U/L (16-61); Albumin, Serum 3.3 g/dL (3.2-5.0); Alkaline Phosphatase 136 U/L (45-117); Anion Gap 6 (5-15); BUN 9 mg/dL (7-18); BUN/Creat Ratio 6.8 RATIO (10-20); Calcium,Total 8.9 mg/dL (8.5-10.1); Chloride 100 mmol/L (98-107); Creatinine, Serum 1.32 mg/dL (0.70-1.30); EST Glomerular Filtration Rate 58 mL/min (>60); Est Glom Filt Rate - Afr Amer 70 mL/min (>60); Globulin 3.7 g/dL (2.2-4.2); Glucose 85 mg/dL (74-106); Potassium 3.8 mmol/L (3.5-5.1); Sodium Level 134 mmol/L (136-145); Thyroid Stim Hormone (TSH) 1.18 uIU/mL (0.358-3.74)
== END | disposition home or self-care (01) ==
LOC: LAB 08:00
PROVIDERS: Family Provider Family Medicine; PCP Family Medicine; Referring Provider Internal Medicine Endocrinology, Diabetes & Metabolism; Visit Provider Internal Medicine Endocrinology, Diabetes & Metabolism
DX: E89.0 Postprocedural hypothyroidism (principal)
CPT/HCPCS: 36415; 80053; 84443

== ENCOUNTER 2019-01-11 13:15 | Outpatient (RCR) | payer OTHER, SELFPAY ==
[2018-12-14 00:31] VITALS: BP 93/69; PULSE 91; RESP 18; TEMP 36.2
[2018-12-16 09:14] VITALS: BP 151/91; PULSE 90; RESP 16; TEMP 36.2; BMI 42.2
--- NOTE | 2018-12-16 10:18 | PN.PCM_ITS ---
(1) Ulcer of left lower extremity with fat layer exposed Status: Chronic Current Visit: Yes Code(s): L97.922 - Non-pressure chronic ulcer of unspecified part of left lower leg with fat layer exposed (2) Venous insufficiency Status: Chronic Current Visit: Yes Code(s): I87.2 - Venous insufficiency (chronic) (peripheral) (3) PAD (peripheral artery disease) Status: Chronic Current Visit: Yes Code(s): I73.9 - Peripheral vascular disease, unspecified Type of Wound Date of Service: 12/16/18 Chief Complaint: Left lower extremity ulcer - Delayed healing. History of Wound: Mr. Chauhan is a 62 year old with PMH as stated below who presented to the wound center due to delayed healing of his left lower extremity ulcer which occurred after he developed a large hematoma after a fall and subsequent fibular fracture. He underwent incision and drainge of the hematoma with subsequent wound vac treatment for 7 days after surgery. After discontinuing the wound vac, he had applied a collagen dressing to the wound. He denies chills, fever, nausea, vomitting or loss of appetite. Progress of Wound: No new concerns at this time. Has had 11 applications of epic so far. - Physical Exam Vital Signs Temp Pulse Resp BP 97.1 F L 90 16 151/91 H 12/16/18 09:14 12/16/18 09:14 12/16/18 09:14 12/16/18 09:14 General: Alert, Oriented x3, Cooperative, No apparent distress HEENT: Atraumatic, Normocephalic Oral: Moist Mucosa Neck: Supple Abdomen: Obese Extremities: No cyanosis, Edema Skin: Ulcer/ Wound Wound Measurements and Assessment WC - Nurse 1 - General Ulcer Measurement Start: 12/16/18 09:14 Freq: Status: Active Protocol: Activity Type Activity Date Activity User E-Sign Co-Sign Detail Recorded Client Recorded Date Recorded By Document 12/16/18 09:14 [facility] [id number] 12/16/18 09:22 [facility] 12/16/18 09:14 Wound Center Nurse 1 [Ulcer Assessment] 1. L LATERAL LOWER EXTREMITY -Combined with other wound No -Current Size (cm) - Length 4.4 -Current Size (cm) - Width 0.9 -Current Size (cm) - Depth 0.1 -Total Square Cm 3.96 -Photo Taken No -Epithelialization Small 1-33% -Tunneling No -Undermining/Tunneling No -Circular Undermining No -Classification - Thickness Full Thickness without Exposed Support Structure -Exudate Amt Medium -Exudate Type Serosanguineous -Wound Margin Flat & Intact -Granulation Amt Medium (34-66%) -Granulation Quality Red -Slough/Fibrin Yes -Necrosis Amt Medium (34-66%) -Necrotic Tissue Type Adherent Slough -Structure Exposed None/Limited to Skin Breakdown -Texture (Kirstie-wound Skin Appearance) Assessed, Scarring -Moisture (Kirstie-wound Skin Appearance No Abnormality, ) Assessed -Color (Kirstie-wound Skin Appearance) Assessed, Erythema, Hemosiderin Staining -Temperature (Kirstie-wound Skin No Abnormality Appearance) (Pt Warm) -Tenderness on Palpation (Kirstie-wound No Skin Appearance) -Foul Odor after Cleansing No -Anesthetic Used 4% Lidocaine Solution [Edema Assessment] -Lower Limb Edema Present Yes -Left Calf (cm) 35.6 -Left Ankle (cm) 22.9 WC - Nurse 2 - General Ulcer CM Notes Start: 12/16/18 09:14 Freq: Status: Active Protocol: Activity Type Activity Date Activity User E-Sign Co-Sign Detail Recorded Client Recorded Date Recorded By Document 12/16/18 09:43 MW [id number] 12/16/18 09:51 MW 12/16/18 09:43 Wound Center Nurse 2 [Procedure/Treatment] 1. L LATERAL LOWER EXTREMITY -Time 09:47 -Correct Patient Yes -Correct Side, Site, Position Yes -Correct Procedure Yes -Procedure Performed Yes -Type of Procedure Debridement -Clinical Debridement Subcutaneous -Post Debridement Size (cm) - Length 4.5 -Post Debridement Size (cm) - Width 0.9 -Post Debridement Size (cm) - Depth 0.1 -Total Square Cm 4.05 -Wound/Ulcer Outcome Not Healed -Ulcer Cleansing Rinsed/ Irrigated with Saline -Foul Odor after Cleansing No -Bioengineered Tissue No -Type of bioengineered Tissue EPIFIX -Expiration Date 03/16/23 -Product Lot Number [id number] -Percent Used 100 -Saline Lot Number [id number] -Bleeding Controlled with Pressure -Offloading No -Treatment Response Procedure Tolerated Well [See Physician Procedure note for Specifics] Pain Scale: 0-10 Numeric [Pain] -Is Patient Pain Free? Yes Musculoskeletal: No Muscle Wasting Neurological: Cranial nerves II-XII grossly intact Psych/Mental Status: Normal Affect Debridement Note Post-Debridement Measurements/Treatment WC - Nurse 2 - General Ulcer CM Notes Start: 12/16/18 09:14 Freq: Status: Active Protocol: Activity Type Activity Date Activity User E-Sign Co-Sign Detail Recorded Client Recorded Date Recorded By Document 12/16/18 09:43 MW [id number] 12/16/18 09:51 MW 12/16/18 09:43 Wound Center Nurse 2 1. L LATERAL LOWER EXTREMITY -Time 09:47 -Correct Patient Yes -Correct Side, Site, Position Yes -Correct Procedure Yes -Procedure Performed Yes -Type of Procedure Debridement -Clinical Debridement Subcutaneous -Post Debridement Size (cm) - Length 4.5 -Post Debridement Size (cm) - Width 0.9 -Post Debridement Size (cm) - Depth 0.1 -Total Square Cm 4.05 -Wound/Ulcer Outcome Not Healed -Ulcer Cleansing Rinsed/ Irrigated with Saline -Foul Odor after Cleansing No -Bioengineered Tissue No -Type of bioengineered Tissue EPIFIX -Expiration Date 03/16/23 -Product Lot Number [id number] -Percent Used 100 -Saline Lot Number [id number] -Bleeding Controlled with Pressure -Offloading No -Treatment Response Procedure Tolerated Well Pain Scale: 0-10 Numeric Is Patient Pain Free? Yes Wound debrided: Left lower extremity Wound Grade/Stage: Stage III Type of Debridement: Excisional debridement Anesthesia Used: 4% Lidocaine Solution Depth: Down to and including healthy tissue, in the subcutaneous layer Percentage of wound debrided: 100 Instrument Used: 5mm curette Tissue Removed: slough and devitalized Severity: Fat Layer Exposed Amount of bleeding with debridement: Mild Bleeding Controlled with: Pressure Patient tolerated procedure well Assessment/Plan Active Problems PAD (peripheral artery disease) (Chronic) Ulcer of left lower extremity with fat layer exposed (Chronic) Venous insufficiency (Chronic) Assessment: Left lower extremity ulcer post I and D with delayed healing. Peripheral arterial disease. Delayed healing. Lower extremity with venous insufficiency. Arterial calcification Plan: No new concerns at this time. Left lower extremity wound/ulcer is improving. 12th application of Epifix done using 100% of product. Wound veil and steri-strips used to secure. He was advised to leave this in place for 1 week and not to get it wet. Hydrofera blue over top to help with drainage. Will continue 3M wrap for edema management. He will definitely continue to require advanced wound care product application such as Epifix. He was previously using Grafix and again did well however seemed to have developed a ? reaction and subsequent infection necessitating need to revert to acetic acid solution and then Promogran. Encouraged to elevate lower extremities when seated and in bed. He refuses referral to Vascular surgery. On Xarelto for Afib. His questions were answered and he was advised to call with any further questions or concerns. Follow-up in 1 week. This note was generated with [employer] dictation software. It may contain incorrect words, spelling, and punctuation that were not noted in checking the note before signing.
[2018-12-18 11:36] VITALS: BP 123/80; PULSE 90; RESP 18; TEMP 36.4; BMI 42.2
--- NOTE | 2018-12-24 11:56 | PCM.WC.PN ---
(1) Ulcer of left lower extremity with fat layer exposed Status: Chronic Current Visit: Yes Code(s): L97.922 - Non-pressure chronic ulcer of unspecified part of left lower leg with fat layer exposed (2) Venous insufficiency Status: Chronic Current Visit: Yes Code(s): I87.2 - Venous insufficiency (chronic) (peripheral) (3) PAD (peripheral artery disease) Status: Chronic Current Visit: Yes Code(s): I73.9 - Peripheral vascular disease, unspecified Type of Wound Date of Service: 12/24/18 Chief Complaint: Left lower extremity ulcer - Delayed healing. History of Wound: Mr. Chauhan is a 62 year old with PMH as stated below who presented to the wound center due to delayed healing of his left lower extremity ulcer which occurred after he developed a large hematoma after a fall and subsequent fibular fracture. He underwent incision and drainge of the hematoma with subsequent wound vac treatment for 7 days after surgery. After discontinuing the wound vac, he had applied a collagen dressing to the wound. He denies chills, fever, nausea, vomitting or loss of appetite. Progress of Wound: No new concerns at this time. Has had 12 applications of epic so far. - Physical Exam Vital Signs Temp Pulse Resp BP 97.5 F L 90 18 123/80 H 12/18/18 11:36 12/18/18 11:36 12/18/18 11:36 12/18/18 11:36 General: Alert, Oriented x3, Cooperative, No apparent distress HEENT: Atraumatic, Normocephalic Oral: Moist Mucosa Neck: Supple Lungs: Normal air movement Abdomen: Obese Extremities: No cyanosis Skin: Ulcer/ Wound Wound Measurements and Assessment WC - Nurse 2 - General Ulcer CM Notes Start: 12/16/18 09:14 Freq: Status: Active Protocol: Activity Type Activity Date Activity User E-Sign Co-Sign Detail Recorded Client Recorded Date Recorded By Document 12/24/18 10:09 MW [id number] 12/24/18 10:20 MW 12/24/18 10:09 Wound Center Nurse 2 [Procedure/Treatment] 1. L LATERAL LOWER EXTREMITY -Time 10:10 -Correct Patient Yes -Correct Side, Site, Position Yes -Correct Procedure Yes -Procedure Performed Yes -Type of Procedure Debridement -Clinical Debridement Subcutaneous -Post Debridement Size (cm) - Length 4.5 -Post Debridement Size (cm) - Width 0.8 -Post Debridement Size (cm) - Depth 0.1 -Total Square Cm 3.60 -Wound/Ulcer Outcome Not Healed -Ulcer Cleansing Rinsed/ Irrigated with Saline -Foul Odor after Cleansing No -Bioengineered Tissue Yes -Type of bioengineered Tissue EPIFIX -Expiration Date 03/16/23 -Product Lot Number [id number] -Percent Used 100 -Saline Lot Number [id number] -Bleeding Controlled with Pressure -Offloading No -Treatment Response Procedure Tolerated Well [See Physician Procedure note for Specifics] Pain Scale: 0-10 Numeric [Pain] -Is Patient Pain Free? Yes Musculoskeletal: No Muscle Wasting Psych/Mental Status: Normal Affect Debridement Note Post-Debridement Measurements/Treatment WC - Nurse 2 - General Ulcer CM Notes Start: 12/16/18 09:14 Freq: Status: Active Protocol: Activity Type Activity Date Activity User E-Sign Co-Sign Detail Recorded Client Recorded Date Recorded By Document 12/16/18 09:43 MW [id number] 12/16/18 09:51 MW Document 12/24/18 10:09 MW [id number] 12/24/18 10:20 MW 12/16/18 12/24/18 09:43 10:09 Wound Center Nurse 2 1. L LATERAL LOWER EXTREMITY -Time 09:47 10:10 -Correct Patient Yes Yes -Correct Side, Site, Position Yes Yes -Correct Procedure Yes Yes -Procedure Performed Yes Yes -Type of Procedure Debridement Debridement -Clinical Debridement Subcutaneous Subcutaneous -Post Debridement Size (cm) - Length 4.5 4.5 -Post Debridement Size (cm) - Width 0.9 0.8 -Post Debridement Size (cm) - Depth 0.1 0.1 -Total Square Cm 4.05 3.60 -Wound/Ulcer Outcome Not Healed Not Healed -Ulcer Cleansing Rinsed/ Rinsed/ Irrigated with Irrigated with Saline Saline -Foul Odor after Cleansing No No -Bioengineered Tissue No Yes -Type of bioengineered Tissue EPIFIX EPIFIX -Expiration Date 03/16/23 03/16/23 -Product Lot Number [id number] -Percent Used 100 100 -Saline Lot Number [id number] -Bleeding Controlled with Pressure Pressure -Offloading No No -Treatment Response Procedure Procedure Tolerated Well Tolerated Well Pain Scale: 0-10 Numeric Is Patient Pain Free? Yes Yes Wound debrided: Left lower extremity Wound Grade/Stage: Stage III Type of Debridement: Excisional debridement Anesthesia Used: 4% Lidocaine Solution Depth: Down to and including healthy tissue, in the subcutaneous layer Percentage of wound debrided: 100 Instrument Used: 5mm curette Tissue Removed: SLough and devitalized tissue Severity: Fat Layer Exposed Amount of bleeding with debridement: Mild Bleeding Controlled with: Pressure Patient tolerated procedure well Assessment/Plan Active Problems PAD (peripheral artery disease) (Chronic) Ulcer of left lower extremity with fat layer exposed (Chronic) Venous insufficiency (Chronic) Assessment: Left lower extremity ulcer post I and D with delayed healing. Peripheral arterial disease. Delayed healing. Lower extremity with venous insufficiency. Arterial calcification Plan: No new concerns at this time. Left lower extremity wound/ulcer is improving. 13th application of Epifix done using 100% of product. Adaptic and steri-strips used to secure. He was advised to leave this in place for 1 week and not to get it wet. Hydrofera blue over top to help with drainage. Will continue 3M wrap for edema management. He will definitely continue to require advanced wound care product application such as Epifix. He was previously using Grafix and again did well however seemed to have developed a ? reaction and subsequent infection necessitating need to revert to acetic acid solution and then Promogran. Encouraged to elevate lower extremities when seated and in bed. He refuses referral to Vascular surgery. On Xarelto for Afib. His questions were answered and he was advised to call with any further questions or concerns. Follow-up in 1 week. This note was generated with [employer] dictation software. It may contain incorrect words, spelling, and punctuation that were not noted in checking the note before signing.
[2018-12-28 12:57] VITALS: BP 109/53; PULSE 87; RESP 18; TEMP 36.4; BMI 42.2
[2018-12-31 09:49] VITALS: BP 96/67; PULSE 83; RESP 16; TEMP 36.4; BMI 42.2
--- NOTE | 2018-12-31 10:29 | PN.PCM_ITS ---
(1) Ulcer of left lower extremity with fat layer exposed Status: Chronic Current Visit: Yes Code(s): L97.922 - Non-pressure chronic ulcer of unspecified part of left lower leg with fat layer exposed (2) Venous insufficiency Status: Chronic Current Visit: Yes Code(s): I87.2 - Venous insufficiency (chronic) (peripheral) (3) PAD (peripheral artery disease) Status: Chronic Current Visit: Yes Code(s): I73.9 - Peripheral vascular disease, unspecified Type of Wound Date of Service: 12/31/18 Chief Complaint: Left lower extremity ulcer - Delayed healing. History of Wound: Mr. Chauhan is a 62 year old with PMH as stated below who presented to the wound center due to delayed healing of his left lower extremity ulcer which occurred after he developed a large hematoma after a fall and subsequent fibular fracture. He underwent incision and drainge of the hematoma with subsequent wound vac treatment for 7 days after surgery. After discontinuing the wound vac, he had applied a collagen dressing to the wound. He denies chills, fever, nausea, vomitting or loss of appetite. Progress of Wound: No new concerns at this time. Has had 13 applications of epifix so far. - Physical Exam Vital Signs Temp Pulse Resp BP 97.5 F L 83 16 96/67 12/31/18 09:49 12/31/18 09:49 12/31/18 09:49 12/31/18 09:49 General: Alert, Oriented x3, Cooperative, No apparent distress HEENT: Atraumatic, Normocephalic Oral: Moist Mucosa Neck: Supple Lungs: Normal air movement Abdomen: Non Tender, Obese Extremities: No cyanosis, Edema Skin: Ulcer/ Wound Wound Measurements and Assessment WC - Nurse 1 - General Ulcer Measurement Start: 12/16/18 09:14 Freq: Status: Active Protocol: Activity Type Activity Date Activity User E-Sign Co-Sign Detail Recorded Client Recorded Date Recorded By Document 12/28/18 12:57 DL [id number] 12/28/18 13:01 DL Document 12/31/18 09:49 CS [id number] 12/31/18 10:00 CS 12/28/18 12/31/18 12:57 09:49 Wound Center Nurse 1 [Ulcer Assessment] 1. L LATERAL LOWER EXTREMITY -Combined with other wound No -Current Size (cm) - Length 3.6 -Current Size (cm) - Width 1.0 -Current Size (cm) - Depth 0.1 -Total Square Cm 3.60 -Photo Taken No -Epithelialization Small 1-33% -Tunneling No -Undermining/Tunneling No -Circular Undermining No -Exudate Amt Small -Exudate Type Serosanguineous -Wound Margin Distinct, Outline Attached -Granulation Quality [place],Red -Slough/Fibrin Yes -Necrosis Amt Medium (34-66%) -Necrotic Tissue Type Adherent Slough -Structure Exposed None/Limited to Skin Breakdown -Texture (Kirstie-wound Skin Appearance) No Abnormality No Abnormality, Assessed -Moisture (Kirstie-wound Skin Appearance No Abnormality Maceration ) -Color (Kirstie-wound Skin Appearance) No Abnormality No Abnormality, Assessed -Temperature (Kirstie-wound Skin No Abnormality Appearance) (Pt Warm) -Tenderness on Palpation (Kirstie-wound No No Skin Appearance) -Ulcer Cleansing Rinsed/ Irrigated with Saline -Foul Odor after Cleansing No No -Anesthetic Used 4% Lidocaine Solution [Edema Assessment] -Lower Limb Edema Present Yes -Left Calf (cm) 42 -Left Ankle (cm) 21.5 WC - Nurse 2 - General Ulcer CM Notes Start: 12/16/18 09:14 Freq: Status: Active Protocol: Activity Type Activity Date Activity User E-Sign Co-Sign Detail Recorded Client Recorded Date Recorded By Document 12/31/18 10:11 MW [id number] 12/31/18 10:20 MW 12/31/18 10:11 Wound Center Nurse 2 [Procedure/Treatment] 1. L LATERAL LOWER EXTREMITY -Time 10:11 -Correct Patient Yes -Correct Side, Site, Position Yes -Correct Procedure Yes -Procedure Performed Yes -Type of Procedure Debridement -Clinical Debridement Subcutaneous -Post Debridement Size (cm) - Length 3.6 -Post Debridement Size (cm) - Width 0.8 -Post Debridement Size (cm) - Depth 0.1 -Total Square Cm 2.88 -Wound/Ulcer Outcome Not Healed -Ulcer Cleansing Rinsed/ Irrigated with Saline -Foul Odor after Cleansing No -Bioengineered Tissue Yes -Type of bioengineered Tissue EPIFIX -Expiration Date 03/16/23 -Product Lot Number [id number] -Percent Used 100 -Saline Lot Number [id number] -Bleeding Controlled with Pressure -Offloading No -Treatment Response Procedure Tolerated Well [See Physician Procedure note for Specifics] Pain Scale: 0-10 Numeric [Pain] -Is Patient Pain Free? Yes Musculoskeletal: No Muscle Wasting Neurological: Cranial nerves II-XII grossly intact Psych/Mental Status: Normal Affect Debridement Note Post-Debridement Measurements/Treatment WC - Nurse 2 - General Ulcer CM Notes Start: 12/16/18 09:14 Freq: Status: Active Protocol: Activity Type Activity Date Activity User E-Sign Co-Sign Detail Recorded Client Recorded Date Recorded By Document 12/16/18 09:43 MW [id number] 12/16/18 09:51 MW Document 12/24/18 10:09 MW [id number] 12/24/18 10:20 MW Document 12/31/18 10:11 MW [id number] 12/31/18 10:20 MW 12/16/18 12/24/18 12/31/18 09:43 10:09 10:11 Wound Center Nurse 2 1. L LATERAL LOWER EXTREMITY -Time 09:47 10:10 10:11 -Correct Patient Yes Yes Yes -Correct Side, Site, Position Yes Yes Yes -Correct Procedure Yes Yes Yes -Procedure Performed Yes Yes Yes -Type of Procedure Debridement Debridement Debridement -Clinical Debridement Subcutaneous Subcutaneous Subcutaneous -Post Debridement Size (cm) - Length 4.5 4.5 3.6 -Post Debridement Size (cm) - Width 0.9 0.8 0.8 -Post Debridement Size (cm) - Depth 0.1 0.1 0.1 -Total Square Cm 4.05 3.60 2.88 -Wound/Ulcer Outcome Not Healed Not Healed Not Healed -Ulcer Cleansing Rinsed/ Rinsed/ Rinsed/ Irrigated with Irrigated with Irrigated with Saline Saline Saline -Foul Odor after Cleansing No No No -Bioengineered Tissue No Yes Yes -Type of bioengineered Tissue EPIFIX EPIFIX EPIFIX -Expiration Date 03/16/23 03/16/23 03/16/23 -Product Lot Number [id number] -Percent Used 100 100 100 -Saline Lot Number [id number] -Bleeding Controlled with Pressure Pressure Pressure -Offloading No No No -Treatment Response Procedure Procedure Procedure Tolerated Well Tolerated Well Tolerated Well Pain Scale: 0-10 Numeric Is Patient Pain Free? Yes Yes Yes Wound debrided: Left lower extremity Wound Grade/Stage: Stage III Type of Debridement: Excisional debridement Anesthesia Used: 4% Lidocaine Solution Depth: Down to and including healthy tissue, in the subcutaneous layer Percentage of wound debrided: 100 Instrument Used: 3mm curette Tissue Removed: Slough and devitalized tissue Severity: Fat Layer Exposed Amount of bleeding with debridement: Mild Bleeding Controlled with: Pressure Patient tolerated procedure well Assessment/Plan Active Problems PAD (peripheral artery disease) (Chronic) Ulcer of left lower extremity with fat layer exposed (Chronic) Venous insufficiency (Chronic) Assessment: Left lower extremity ulcer post I and D with delayed healing. Peripheral arterial disease. Delayed healing. Lower extremity with venous insufficiency. Arterial calcification Plan: No new concerns at this time. Left lower extremity wound/ulcer is improving. 14th application of Epifix done using 100% of product. wound veil and steri-strips used to secure. He was advised to leave this in place for 1 week and not to get it wet. Hydrofera blue over top to help with drainage. Will continue 3M wrap for edema management. He will definitely continue to require advanced wound care product application such as Epifix. He was previously using Grafix and again did well however seemed to have developed a ? reaction and subsequent infection necessitating need to revert to acetic acid solution and then Promogran. Encouraged to elevate lower extremities when seated and in bed. He refuses referral to Vascular surgery. On Xarelto for Afib. His questions were answered and he was advised to call with any further questions or concerns. Follow-up in 1 week with me and on Friday for a nurse visit to change outer dressing. This note was generated with [employer] dictation software. It may contain incorrect words, spelling, and punctuation that were not noted in checking the note before signing.
[2019-01-04 12:39] VITALS: BP 135/72; PULSE 70; RESP 18; TEMP 37; BMI 42.2
[2019-01-07 10:13] VITALS: BP 130/76; PULSE 83; RESP 18; TEMP 36.2; BMI 42.2
--- NOTE | 2019-01-07 10:46 | PCM.WC.PN ---
(1) Ulcer of left lower extremity with fat layer exposed Status: Chronic Current Visit: Yes Code(s): L97.922 - Non-pressure chronic ulcer of unspecified part of left lower leg with fat layer exposed (2) Venous insufficiency Status: Chronic Current Visit: Yes Code(s): I87.2 - Venous insufficiency (chronic) (peripheral) (3) PAD (peripheral artery disease) Status: Chronic Current Visit: Yes Code(s): I73.9 - Peripheral vascular disease, unspecified Type of Wound Date of Service: 01/07/19 Chief Complaint: Left lower extremity ulcer - Delayed healing. History of Wound: Mr. Chauhan is a 62 year old with PMH as stated below who presented to the wound center due to delayed healing of his left lower extremity ulcer which occurred after he developed a large hematoma after a fall and subsequent fibular fracture. He underwent incision and drainge of the hematoma with subsequent wound vac treatment for 7 days after surgery. After discontinuing the wound vac, he had applied a collagen dressing to the wound. He denies chills, fever, nausea, vomitting or loss of appetite. Progress of Wound: No new concerns at this time. Has had 14 applications of epifix so far. - Physical Exam Vital Signs Temp Pulse Resp BP 97.1 F L 83 18 130/76 H 01/07/19 10:13 01/07/19 10:13 01/07/19 10:13 01/07/19 10:13 General: Alert, Oriented x3, Cooperative, No apparent distress HEENT: Atraumatic, Normocephalic Oral: Moist Mucosa Neck: Supple Lungs: Normal air movement Abdomen: Obese Extremities: No cyanosis Skin: Ulcer/ Wound Wound Measurements and Assessment WC - Nurse 1 - General Ulcer Measurement Start: 12/16/18 09:14 Freq: Status: Active Protocol: Activity Type Activity Date Activity User E-Sign Co-Sign Detail Recorded Client Recorded Date Recorded By Document 01/07/19 10:13 DV [id number] 01/07/19 10:24 DV 01/07/19 10:13 Wound Center Nurse 1 [Ulcer Assessment] 1. L LATERAL LOWER EXTREMITY -Combined with other wound No -Current Size (cm) - Length 3.5 -Current Size (cm) - Width 1.0 -Current Size (cm) - Depth 0.1 -Total Square Cm 3.50 -Photo Taken No -Epithelialization None Present -Tunneling No -Undermining/Tunneling No -Circular Undermining No -Classification - Thickness Full Thickness without Exposed Support Structure -Exudate Amt Large -Exudate Type Serosanguineous -Wound Margin Indistinct, Non -Visible -Granulation Amt None Present (0 %) -Granulation Quality N/A -Slough/Fibrin Yes -Necrosis Amt Large (67-100%) -Necrotic Tissue Type Adherent Slough -Structure Exposed None/Limited to Skin Breakdown -Texture (Kirstie-wound Skin Appearance) Assessed, Localized Edema ,Scarring,Rash -Moisture (Kirstie-wound Skin Appearance Assessed, ) Maceration, Weeping -Color (Kirstie-wound Skin Appearance) Assessed, Hemosiderin Staining, Mottled -Temperature (Kirstie-wound Skin No Abnormality Appearance) (Pt Warm) -Tenderness on Palpation (Kirstie-wound No Skin Appearance) -Foul Odor after Cleansing No -Anesthetic Used 5% Lidocaine Gel WC - Nurse 2 - General Ulcer CM Notes Start: 12/16/18 09:14 Freq: Status: Active Protocol: Activity Type Activity Date Activity User E-Sign Co-Sign Detail Recorded Client Recorded Date Recorded By Document 01/07/19 10:36 MW [id number] 01/07/19 10:44 MW 01/07/19 10:36 Wound Center Nurse 2 [Procedure/Treatment] -Time 10:37 -Correct Patient Yes -Correct Side, Site, Position Yes -Correct Procedure Yes -Procedure Performed Yes -Type of Procedure Debridement -Clinical Debridement Subcutaneous -Post Debridement Size (cm) - Length 3.5 -Post Debridement Size (cm) - Width 0.8 -Post Debridement Size (cm) - Depth 0.1 -Total Square Cm 2.80 -Wound/Ulcer Outcome Not Healed -Ulcer Cleansing Rinsed/ Irrigated with Saline -Foul Odor after Cleansing No -Bioengineered Tissue Yes -Type of bioengineered Tissue EPIFIX -Expiration Date 04/16/23 -Product Lot Number [id number] -Percent Used 100 -Saline Lot Number [id number] -Bleeding Controlled with Pressure -Offloading No -Treatment Response Procedure Tolerated Well [See Physician Procedure note for Specifics] Pain Scale: 0-10 Numeric [Pain] -Is Patient Pain Free? Yes Musculoskeletal: No Muscle Wasting Neurological: Cranial nerves II-XII grossly intact Psych/Mental Status: Normal Affect Debridement Note Post-Debridement Measurements/Treatment WC - Nurse 2 - General Ulcer CM Notes Start: 12/16/18 09:14 Freq: Status: Active Protocol: Activity Type Activity Date Activity User E-Sign Co-Sign Detail Recorded Client Recorded Date Recorded By Document 12/16/18 09:43 MW [id number] 12/16/18 09:51 MW Document 12/24/18 10:09 MW [id number] 12/24/18 10:20 MW Document 12/31/18 10:11 MW [id number] 12/31/18 10:20 MW Document 01/07/19 10:36 MW [id number] 01/07/19 10:44 MW 12/16/18 12/24/18 12/31/18 09:43 10:09 10:11 Wound Center Nurse 2 1. L LATERAL LOWER EXTREMITY -Time 09:47 10:10 10:11 -Correct Patient Yes Yes Yes -Correct Side, Site, Position Yes Yes Yes -Correct Procedure Yes Yes Yes -Procedure Performed Yes Yes Yes -Type of Procedure Debridement Debridement Debridement -Clinical Debridement Subcutaneous Subcutaneous Subcutaneous -Post Debridement Size (cm) - Length 4.5 4.5 3.6 -Post Debridement Size (cm) - Width 0.9 0.8 0.8 -Post Debridement Size (cm) - Depth 0.1 0.1 0.1 -Total Square Cm 4.05 3.60 2.88 -Wound/Ulcer Outcome Not Healed Not Healed Not Healed -Ulcer Cleansing Rinsed/ Rinsed/ Rinsed/ Irrigated with Irrigated with Irrigated with Saline Saline Saline -Foul Odor after Cleansing No No No -Bioengineered Tissue No Yes Yes -Type of bioengineered Tissue EPIFIX EPIFIX EPIFIX -Expiration Date 03/16/23 03/16/23 03/16/23 -Product Lot Number [id number] -Percent Used 100 100 100 -Saline Lot Number [id number] -Bleeding Controlled with Pressure Pressure Pressure -Offloading No No No -Treatment Response Procedure Procedure Procedure Tolerated Well Tolerated Well Tolerated Well Pain Scale: 0-10 Numeric Is Patient Pain Free? Yes Yes Yes 01/07/19 10:36 Wound Center Nurse 2 1. L LATERAL LOWER EXTREMITY -Time 10:37 -Correct Patient Yes -Correct Side, Site, Position Yes -Correct Procedure Yes -Procedure Performed Yes -Type of Procedure Debridement -Clinical Debridement Subcutaneous -Post Debridement Size (cm) - Length 3.5 -Post Debridement Size (cm) - Width 0.8 -Post Debridement Size (cm) - Depth 0.1 -Total Square Cm 2.80 -Wound/Ulcer Outcome Not Healed -Ulcer Cleansing Rinsed/ Irrigated with Saline -Foul Odor after Cleansing No -Bioengineered Tissue Yes -Type of bioengineered Tissue EPIFIX -Expiration Date 04/16/23 -Product Lot Number [id number] -Percent Used 100 -Saline Lot Number [id number] -Bleeding Controlled with Pressure -Offloading No -Treatment Response Procedure Tolerated Well Pain Scale: 0-10 Numeric Is Patient Pain Free? Yes Wound debrided: Left Lower extremity Wound Grade/Stage: Stage III Type of Debridement: Excisional debridement Anesthesia Used: 4% Lidocaine Solution Depth: Down to and including healthy tissue, in the subcutaneous layer Percentage of wound debrided: 100 Instrument Used: 3mm curette Tissue Removed: Slough and devitalized tissue Severity: Fat Layer Exposed Amount of bleeding with debridement: Mild Bleeding Controlled with: Pressure Patient tolerated procedure well Assessment/Plan Active Problems PAD (peripheral artery disease) (Chronic) Ulcer of left lower extremity with fat layer exposed (Chronic) Venous insufficiency (Chronic) Assessment: Left lower extremity ulcer post I and D with delayed healing. Peripheral arterial disease. Delayed healing. Lower extremity with venous insufficiency. Arterial calcification Plan: No new concerns at this time. No significnat chaneg in the past week. 15th application of Epifix done using 100% of product. wound veil and steri-strips used to secure. He was advised to leave this in place for 1 week and not to get it wet. Hydrofera blue over top to help with drainage. Will continue 3M wrap for edema management. He will definitely continue to require advanced wound care product application such as Epifix. He was previously using Grafix and again did well however seemed to have developed a ? reaction and subsequent infection necessitating need to revert to acetic acid solution and then Promogran. Encouraged to elevate lower extremities when seated and in bed. He refuses referral to Vascular surgery. On Xarelto for Afib. His questions were answered and he was advised to call with any further questions or concerns. Follow-up in 1 week with me and on Friday for a nurse visit to change outer dressing. This note was generated with [employer] dictation software. It may contain incorrect words, spelling, and punctuation that were not noted in checking the note before signing.
[2019-01-11 13:52] VITALS: BP 118/82; PULSE 84; RESP 18; TEMP 36.9; BMI 42.2
== END 2019-01-13 23:59 ==
LOC: WC 13:15
PROVIDERS: Family Provider Family Medicine; PCP Family Medicine; Referring Provider Internal Medicine; Visit Provider Internal Medicine
DX: I73.9 Peripheral vascular disease, unspecified (principal); I87.2 Venous insufficiency (chronic) (peripheral); L97.822 Non-pressure chronic ulcer of other part of left lower leg with fat layer exposed; I48.91 Unspecified atrial fibrillation; Z79.01 Long term (current) use of anticoagulants
CPT/HCPCS: 11042; 15271; 15274; 15275; 29581; 99211; 99212; Q4186; G0463

== ENCOUNTER 2019-02-11 10:15 | Outpatient (RCR) | payer OTHER, SELFPAY ==
[2019-01-14 00:36] VITALS: BP 118/82; PULSE 84; RESP 18; TEMP 36.9
[2019-01-14 09:41] VITALS: BP 137/91; PULSE 85; RESP 16; TEMP 37; BMI 42.2
--- NOTE | 2019-01-14 10:40 | PN.PCM_ITS ---
(1) PAD (peripheral artery disease) Status: Chronic Current Visit: Yes Code(s): I73.9 - Peripheral vascular disease, unspecified (2) Ulcer of left lower extremity with fat layer exposed Status: Chronic Current Visit: Yes Code(s): L97.922 - Non-pressure chronic ulcer of unspecified part of left lower leg with fat layer exposed (3) Venous insufficiency Status: Chronic Current Visit: Yes Code(s): I87.2 - Venous insufficiency (chronic) (peripheral) Type of Wound Date of Service: 01/14/19 Chief Complaint: Left lower extremity ulcer - Delayed healing. History of Wound: Mr. Chauhan is a 62 year old with PMH as stated below who presented to the wound center due to delayed healing of his left lower extremity ulcer which occurred after he developed a large hematoma after a fall and subsequent fibular fracture. He underwent incision and drainge of the hematoma with subsequent wound vac treatment for 7 days after surgery. After discontinuing the wound vac, he had applied a collagen dressing to the wound. He denies chills, fever, nausea, vomitting or loss of appetite. Progress of Wound: No new concerns at this time. Has had 15 applications of epifix so far. - Physical Exam Vital Signs Temp Pulse Resp BP 98.6 F 85 16 137/91 H 01/14/19 09:41 01/14/19 09:41 01/14/19 09:41 01/14/19 09:41 General: Alert, Oriented x3, Cooperative, No apparent distress HEENT: Atraumatic, Normocephalic Oral: Moist Mucosa Neck: Supple Lungs: Normal air movement Extremities: No cyanosis, Edema Skin: Ulcer/ Wound Wound Measurements and Assessment WC - Nurse 1 - General Ulcer Measurement Start: 01/14/19 09:40 Freq: Status: Active Protocol: Activity Type Activity Date Activity User E-Sign Co-Sign Detail Recorded Client Recorded Date Recorded By Document 01/14/19 09:41 [id number] 01/14/19 10:00 01/14/19 09:41 Wound Center Nurse 1 [Ulcer Assessment] 1. L LATERAL LOWER EXTREMITY -Combined with other wound No -Photo Taken No -Epithelialization Small 1-33% -Tunneling No -Undermining/Tunneling No -Circular Undermining No -Exudate Amt Small -Exudate Type Serosanguineous -Wound Margin Distinct, Outline Attached -Granulation Amt Medium (34-66%) -Granulation Quality Red -Slough/Fibrin Yes -Necrosis Amt Small (1-33%) -Necrotic Tissue Type Adherent Slough -Structure Exposed None/Limited to Skin Breakdown -Texture (Kirstie-wound Skin Appearance) Assessed, Localized Edema -Moisture (Kirstie-wound Skin Appearance Assessed, ) Maceration -Color (Kirstie-wound Skin Appearance) Assessed, Erythema -Temperature (Kirstie-wound Skin No Abnormality Appearance) (Pt Warm) -Tenderness on Palpation (Kirstie-wound No Skin Appearance) -Foul Odor after Cleansing No -Anesthetic Used 5% Lidocaine Gel [Edema Assessment] -Lower Limb Edema Present Yes -Left Calf (cm) 35.5 -Left Ankle (cm) 22 WC - Nurse 2 - General Ulcer CM Notes Start: 01/14/19 09:40 Freq: Status: Active Protocol: Activity Type Activity Date Activity User E-Sign Co-Sign Detail Recorded Client Recorded Date Recorded By Document 01/14/19 10:24 MW [id number] 01/14/19 10:27 MW 01/14/19 10:24 Wound Center Nurse 2 [Procedure/Treatment] 1. L LATERAL LOWER EXTREMITY -Time 10:25 -Correct Patient Yes -Correct Side, Site, Position Yes -Correct Procedure Yes -Procedure Performed Yes -Type of Procedure Debridement -Clinical Debridement Subcutaneous -Post Debridement Size (cm) - Length 3.0 -Post Debridement Size (cm) - Width 0.7 -Post Debridement Size (cm) - Depth 0.1 -Total Square Cm 2.10 -Wound/Ulcer Outcome Not Healed -Ulcer Cleansing Rinsed/ Irrigated with Saline -Foul Odor after Cleansing No -Bioengineered Tissue Yes -Type of bioengineered Tissue EPIFIX -Expiration Date 05/16/23 -Product Lot Number [id number] -Percent Used 100 -Saline Lot Number [id number] -Bleeding Controlled with Pressure -Offloading No -Treatment Response Procedure Tolerated Well [See Physician Procedure note for Specifics] Pain Scale: 0-10 Numeric [Pain] -Is Patient Pain Free? Yes Neurological: Cranial nerves II-XII grossly intact Psych/Mental Status: Normal Affect Debridement Note Post-Debridement Measurements/Treatment WC - Nurse 2 - General Ulcer CM Notes Start: 01/14/19 09:40 Freq: Status: Active Protocol: Activity Type Activity Date Activity User E-Sign Co-Sign Detail Recorded Client Recorded Date Recorded By Document 01/14/19 10:24 MW [id number] 01/14/19 10:27 MW 01/14/19 10:24 Wound Center Nurse 2 1. L LATERAL LOWER EXTREMITY -Time 10:25 -Correct Patient Yes -Correct Side, Site, Position Yes -Correct Procedure Yes -Procedure Performed Yes -Type of Procedure Debridement -Clinical Debridement Subcutaneous -Post Debridement Size (cm) - Length 3.0 -Post Debridement Size (cm) - Width 0.7 -Post Debridement Size (cm) - Depth 0.1 -Total Square Cm 2.10 -Wound/Ulcer Outcome Not Healed -Ulcer Cleansing Rinsed/ Irrigated with Saline -Foul Odor after Cleansing No -Bioengineered Tissue Yes -Type of bioengineered Tissue EPIFIX -Expiration Date 05/16/23 -Product Lot Number [id number] -Percent Used 100 -Saline Lot Number [id number] -Bleeding Controlled with Pressure -Offloading No -Treatment Response Procedure Tolerated Well Pain Scale: 0-10 Numeric Is Patient Pain Free? Yes Wound debrided: Left Leg Wound Grade/Stage: Stage III Type of Debridement: Excisional debridement Anesthesia Used: 4% Lidocaine Solution Depth: Down to and including healthy tissue, in the subcutaneous layer Percentage of wound debrided: 100 Instrument Used: 3mm curette Tissue Removed: Slough and devitalized tissue Severity: Fat Layer Exposed Amount of bleeding with debridement: Mild Bleeding Controlled with: Pressure Patient tolerated procedure well Assessment/Plan Active Problems PAD (peripheral artery disease) (Chronic) Ulcer of left lower extremity with fat layer exposed (Chronic) Venous insufficiency (Chronic) Assessment: Left lower extremity ulcer post I and D with delayed healing. Peripheral arterial disease. Delayed healing. Lower extremity with venous insufficiency. Arterial calcification Plan: Improving. No new concerns at this time. 15th application of Epifix done using 100% of product. Wound veil and steri-strips used to secure. He was advised to leave this in place for 1 week and not to get it wet. Hydrofera blue over top to help with drainage. Will continue 3M wrap for edema management. He will definitely continue to require advanced wound care product application such as Epifix. He was previously using Grafix and again did well however seemed to have developed a ? reaction and subsequent infection necessitating need to revert to acetic acid solution and then Promogran. Encouraged to elevate lower extremities when seated and in bed. He refuses referral to Vascular surgery. On Xarelto for Afib. His questions were answered and he was advised to call with any further questions or concerns. Follow-up in 1 week with me and on Friday for a nurse visit to change outer dressing. This note was generated with [employer] dictation software. It may contain incorrect words, spelling, and punctuation that were not noted in checking the note before signing.
[2019-01-18 14:42] VITALS: BP 93/67; PULSE 84; RESP 18; TEMP 36.6; BMI 42.2
[2019-01-21 12:08] VITALS: BP 123/64; PULSE 67; RESP 18; TEMP 36.6; BMI 42.2
--- NOTE | 2019-01-21 12:45 | PN.PCM_ITS ---
(1) PAD (peripheral artery disease) Status: Chronic Current Visit: Yes Code(s): I73.9 - Peripheral vascular disease, unspecified (2) Ulcer of left lower extremity with fat layer exposed Status: Chronic Current Visit: Yes Code(s): L97.922 - Non-pressure chronic ulcer of unspecified part of left lower leg with fat layer exposed (3) Venous insufficiency Status: Chronic Current Visit: Yes Code(s): I87.2 - Venous insufficiency (chronic) (peripheral) Type of Wound Date of Service: 01/21/19 Chief Complaint: Left lower extremity ulcer - Delayed healing. History of Wound: Mr. Chauhan is a 62 year old with PMH as stated below who presented to the wound center due to delayed healing of his left lower extremity ulcer which occurred after he developed a large hematoma after a fall and subsequent fibular fracture. He underwent incision and drainge of the hematoma with subsequent wound vac treatment for 7 days after surgery. After discontinuing the wound vac, he had applied a collagen dressing to the wound. He denies chills, fever, nausea, vomitting or loss of appetite. Progress of Wound: No new concerns at this time. Has had 16 applications of epifix so far. - Physical Exam Vital Signs Temp Pulse Resp BP 97.8 F 67 18 123/64 H 01/21/19 12:08 01/21/19 12:08 01/21/19 12:08 01/21/19 12:08 General: Alert, Oriented x3, Cooperative, No apparent distress HEENT: Atraumatic, Normocephalic Oral: Moist Mucosa Neck: Supple Lungs: Normal air movement Abdomen: Non Tender, Obese Extremities: No cyanosis, Edema Skin: Ulcer/ Wound Wound Measurements and Assessment WC - Nurse 1 - General Ulcer Measurement Start: 01/14/19 09:40 Freq: Status: Active Protocol: Activity Type Activity Date Activity User E-Sign Co-Sign Detail Recorded Client Recorded Date Recorded By Document 01/18/19 14:42 MW [id number] 01/18/19 14:46 MW Document 01/21/19 12:08 RB [id number] 01/21/19 12:10 RB 01/18/19 01/21/19 14:42 12:08 Wound Center Nurse 1 [Ulcer Assessment] 1. L LATERAL LOWER EXTREMITY -Combined with other wound No -Current Size (cm) - Length 3.7 -Current Size (cm) - Width 1 -Current Size (cm) - Depth 0.2 -Total Square Cm 3.7 -Tunneling No -Undermining/Tunneling No -Circular Undermining No -Exudate Amt None Present -Wound Margin Distinct, Outline Attached -Granulation Amt Medium (34-66%) -Granulation Quality [place] -Slough/Fibrin Yes -Necrosis Amt Medium (34-66%) -Necrotic Tissue Type Adherent Slough -Structure Exposed N/A -Texture (Kirstie-wound Skin Appearance) Assessed, Assessed, Localized Edema Scarring -Moisture (Kirstie-wound Skin Appearance Assessed,Dry/ Assessed ) Scaly -Color (Kirstie-wound Skin Appearance) No Abnormality, Assessed Assessed -Temperature (Kirstie-wound Skin No Abnormality Appearance) (Pt Warm) -Tenderness on Palpation (Kirstie-wound No Skin Appearance) -Ulcer Cleansing soap and water Wound Cleanser -Foul Odor after Cleansing No No -Anesthetic Used 5% Lidocaine Gel [Edema Assessment] -Lower Limb Edema Present Yes Yes -Left Calf (cm) 35.0 38.3 -Left Ankle (cm) 22.5 22.5 Musculoskeletal: No Muscle Wasting Neurological: Cranial nerves II-XII grossly intact Psych/Mental Status: Normal Affect Debridement Note Post-Debridement Measurements/Treatment WC - Nurse 2 - General Ulcer CM Notes Start: 01/14/19 09:40 Freq: Status: Active Protocol: Activity Type Activity Date Activity User E-Sign Co-Sign Detail Recorded Client Recorded Date Recorded By Document 01/14/19 10:24 MW [id number] 01/14/19 10:27 MW 01/14/19 10:24 Wound Center Nurse 2 1. L LATERAL LOWER EXTREMITY -Time 10:25 -Correct Patient Yes -Correct Side, Site, Position Yes -Correct Procedure Yes -Procedure Performed Yes -Type of Procedure Debridement -Clinical Debridement Subcutaneous -Post Debridement Size (cm) - Length 3.0 -Post Debridement Size (cm) - Width 0.7 -Post Debridement Size (cm) - Depth 0.1 -Total Square Cm 2.10 -Wound/Ulcer Outcome Not Healed -Ulcer Cleansing Rinsed/ Irrigated with Saline -Foul Odor after Cleansing No -Bioengineered Tissue Yes -Type of bioengineered Tissue EPIFIX -Expiration Date 05/16/23 -Product Lot Number [id number] -Percent Used 100 -Saline Lot Number [id number] -Bleeding Controlled with Pressure -Offloading No -Treatment Response Procedure Tolerated Well Pain Scale: 0-10 Numeric Is Patient Pain Free? Yes Wound debrided: Left lower extremity Wound Grade/Stage: Stage III Type of Debridement: Excisional debridement Anesthesia Used: 4% Lidocaine Solution Depth: Down to and including healthy tissue, in the subcutaneous layer Percentage of wound debrided: 100 Instrument Used: 3mm curette Tissue Removed: Slough and devitalized tissue Severity: Fat Layer Exposed Amount of bleeding with debridement: Mild Bleeding Controlled with: Pressure Patient tolerated procedure well Assessment/Plan Active Problems PAD (peripheral artery disease) (Chronic) Ulcer of left lower extremity with fat layer exposed (Chronic) Venous insufficiency (Chronic) Assessment: Left lower extremity ulcer post I and D with delayed healing. Peripheral arterial disease. Delayed healing. Lower extremity with venous insufficiency. Arterial calcification Plan: Stable.No new concerns at this time. 16th application of Epifix done using 100% of product. Wound veil and steri-strips used to secure. He was advised to leave this in place for 1 week and not to get it wet. Hydrofera blue over top to help with drainage. Will continue 3M wrap for edema management. He will definitely continue to require advanced wound care product application such as Epifix. He was previously using Grafix and again did well however seemed to have developed a ? reaction and subsequent infection necessitating need to revert to acetic acid solution and then Promogran. Encouraged to elevate lower extremities when seated and in bed. He refuses referral to Vascular surgery[facility] His questions were answered and he was advised to call with any further questions or concerns. Follow-up in 1 week with me and on Friday for a nurse visit to change outer dressing. This note was generated with [employer] dictation software. It may contain incorrect words, spelling, and punctuation that were not noted in checking the note before signing.
[2019-01-25 14:12] VITALS: BP 128/79; PULSE 87; RESP 18; TEMP 36.7; BMI 42.2
[2019-01-27 09:45] VITALS: BP 147/79; PULSE 93; RESP 20; TEMP 36.2; BMI 42.2
--- NOTE | 2019-01-27 10:26 | PN.PCM_ITS ---
(1) PAD (peripheral artery disease) Status: Chronic Current Visit: Yes Code(s): I73.9 - Peripheral vascular disease, unspecified (2) Ulcer of left lower extremity with fat layer exposed Status: Chronic Current Visit: Yes Code(s): L97.922 - Non-pressure chronic ulcer of unspecified part of left lower leg with fat layer exposed (3) Venous insufficiency Status: Chronic Current Visit: Yes Code(s): I87.2 - Venous insufficiency (chronic) (peripheral) Type of Wound Date of Service: 01/27/19 Chief Complaint: Left lower extremity ulcer - Delayed healing. History of Wound: Mr. Chauhan is a 62 year old with PMH as stated below who presented to the wound center due to delayed healing of his left lower extremity ulcer which occurred after he developed a large hematoma after a fall and subsequent fibular fracture. He underwent incision and drainge of the hematoma with subsequent wound vac treatment for 7 days after surgery. After discontinuing the wound vac, he had applied a collagen dressing to the wound. He denies chills, fever, nausea, vomitting or loss of appetite. Progress of Wound: No new concerns at this time. Has had 17 applications of epifix so far. - Physical Exam Vital Signs Temp Pulse Resp BP 97.1 F L 93 20 H 147/79 H 01/27/19 09:45 01/27/19 09:45 01/27/19 09:45 01/27/19 09:45 General: Alert, Oriented x3, Cooperative, No apparent distress HEENT: Atraumatic, Normocephalic Oral: Moist Mucosa Neck: Supple Abdomen: Non Tender, Obese Extremities: No cyanosis Skin: Ulcer/ Wound Wound Measurements and Assessment WC - Nurse 1 - General Ulcer Measurement Start: 01/14/19 09:40 Freq: Status: Active Protocol: Activity Type Activity Date Activity User E-Sign Co-Sign Detail Recorded Client Recorded Date Recorded By Document 01/27/19 09:45 DL [id number] 01/27/19 09:47 DL 01/27/19 09:45 Wound Center Nurse 1 [Ulcer Assessment] 1. L LATERAL LOWER EXTREMITY -Current Size (cm) - Length 3.5 -Current Size (cm) - Width 1.2 -Current Size (cm) - Depth 0.2 -Total Square Cm 4.20 -Photo Taken No -Exudate Amt Small -Exudate Type Serosanguineous -Wound Margin Distinct, Outline Attached -Granulation Amt Large (67-100%) -Granulation Quality Pale,[place] -Necrosis Amt Small (1-33%) -Necrotic Tissue Type Adherent Slough -Structure Exposed N/A -Texture (Kirstie-wound Skin Appearance) Scarring -Moisture (Kirstie-wound Skin Appearance Dry/Scaly ) -Color (Kirstie-wound Skin Appearance) Rubor -Temperature (Kirstie-wound Skin No Abnormality Appearance) (Pt Warm) -Tenderness on Palpation (Kirstie-wound No Skin Appearance) -Ulcer Cleansing Wound Cleanser -Foul Odor after Cleansing No -Anesthetic Used 5% Lidocaine Gel [Edema Assessment] -Left Calf (cm) 36.9 -Left Ankle (cm) 22.4 WC - Nurse 2 - General Ulcer CM Notes Start: 01/14/19 09:40 Freq: Status: Active Protocol: Activity Type Activity Date Activity User E-Sign Co-Sign Detail Recorded Client Recorded Date Recorded By Document 01/27/19 10:13 [id number] 01/27/19 10:15 MERY 01/27/19 10:13 Wound Center Nurse 2 [Procedure/Treatment] 1. L LATERAL LOWER EXTREMITY -Time 10:13 -Correct Patient Yes -Correct Side, Site, Position Yes -Correct Procedure Yes -Procedure Performed Yes -Type of Procedure Debridement -Clinical Debridement Subcutaneous -Post Debridement Size (cm) - Length 2.7 -Post Debridement Size (cm) - Width 0.5 -Post Debridement Size (cm) - Depth 0.1 -Total Square Cm 1.35 -Wound/Ulcer Outcome Not Healed -Ulcer Cleansing Rinsed/ Irrigated with Saline -Foul Odor after Cleansing No -Bioengineered Tissue Yes -Type of bioengineered Tissue EPIFIX -Expiration Date 06/16/23 -Product Lot Number [id number] -Percent Used 100 -Saline Lot Number [id number] -Bleeding Controlled with Pressure -Offloading No -Treatment Response Procedure Tolerated Well [See Physician Procedure note for Specifics] Pain Scale: 0-10 Numeric [Pain] -Is Patient Pain Free? Yes Musculoskeletal: No Muscle Wasting Neurological: Cranial nerves II-XII grossly intact Psych/Mental Status: Normal Affect Debridement Note Post-Debridement Measurements/Treatment WC - Nurse 2 - General Ulcer CM Notes Start: 08/01/19 09:40 Freq: Status: Active Protocol: Activity Type Activity Date Activity User E-Sign Co-Sign Detail Recorded Client Recorded Date Recorded By Document 01/14/19 10:24 MW [id number] 01/14/19 10:27 MW Document 01/21/19 12:36 MW [id number] 01/21/19 12:46 MW Document 01/27/19 10:13 [id number] 01/27/19 10:15 01/14/19 01/21/19 01/27/19 10:24 12:36 10:13 Wound Center Nurse 2 1. L LATERAL LOWER EXTREMITY -Time 10:25 12:37 10:13 -Correct Patient Yes Yes Yes -Correct Side, Site, Position Yes Yes Yes -Correct Procedure Yes Yes Yes -Procedure Performed Yes Yes Yes -Type of Procedure Debridement Debridement Debridement -Clinical Debridement Subcutaneous Subcutaneous Subcutaneous -Post Debridement Size (cm) - Length 3.0 3.0 2.7 -Post Debridement Size (cm) - Width 0.7 0.7 0.5 -Post Debridement Size (cm) - Depth 0.1 0.1 0.1 -Total Square Cm 2.10 2.10 1.35 -Wound/Ulcer Outcome Not Healed Not Healed Not Healed -Ulcer Cleansing Rinsed/ Rinsed/ Rinsed/ Irrigated with Irrigated with Irrigated with Saline Saline Saline -Foul Odor after Cleansing No No No -Bioengineered Tissue Yes Yes Yes -Type of bioengineered Tissue EPIFIX EPIFIX EPIFIX -Expiration Date 05/16/23 05/16/23 06/16/23 -Product Lot Number [id number] -Percent Used 100 100 100 -Saline Lot Number [id number] -Bleeding Controlled with Pressure Pressure Pressure -Offloading No No No -Treatment Response Procedure Procedure Procedure Tolerated Well Tolerated Well Tolerated Well Pain Scale: 0-10 Numeric Is Patient Pain Free? Yes Yes Yes Wound debrided: Left lower extremity Wound Grade/Stage: Stage III Type of Debridement: Excisional debridement Anesthesia Used: 4% Lidocaine Solution Depth: Down to and including healthy tissue, in the subcutaneous layer Percentage of wound debrided: 100 Instrument Used: 3mm curette Tissue Removed: Slough and devitalized tissue Severity: Fat Layer Exposed Amount of bleeding with debridement: Mild Bleeding Controlled with: Pressure Patient tolerated procedure well Assessment/Plan Active Problems PAD (peripheral artery disease) (Chronic) Ulcer of left lower extremity with fat layer exposed (Chronic) Venous insufficiency (Chronic) Assessment: Left lower extremity ulcer post I and D with delayed healing. Peripheral arterial disease. Delayed healing. Lower extremity with venous insufficiency. Arterial calcification Plan: Improving.No new concerns at this time. 18th application of Epifix done using 100% of product. Wound veil and steri-strips used to secure. He was advised to leave this in place for 1 week and not to get it wet. Hydrofera blue over top to help with drainage. Will continue 3M wrap for edema management. He will definitely continue to require advanced wound care product application such as Epifix. He was previously using Grafix and again did well however seemed to have developed a ? reaction and subsequent infection necessitating need to revert to acetic acid solution and then Promogran. Encouraged to elevate lower extremities when seated and in bed. He refuses referral to Vascular surgery. On Xarelto for Afib. His questions were answered and he was advised to call with any further questions or concerns. Follow-up in 1 week with me and on Friday for a nurse visit to change outer dressing. This note was generated with [employer] dictation software. It may contain incorrect words, spelling, and punctuation that were not noted in checking the note before signing.
[2019-02-01 14:26] VITALS: BP 123/84; PULSE 85; RESP 16; TEMP 36.3; BMI 42.2
[2019-02-04 10:15] VITALS: BP 110/74; PULSE 87; RESP 16; TEMP 36.2; BMI 42.2
--- NOTE | 2019-02-04 11:33 | PN.PCM_ITS ---
(1) PAD (peripheral artery disease) Status: Chronic Current Visit: Yes Code(s): I73.9 - Peripheral vascular disease, unspecified (2) Ulcer of left lower extremity with fat layer exposed Status: Chronic Current Visit: Yes Code(s): L97.922 - Non-pressure chronic ulcer of unspecified part of left lower leg with fat layer exposed (3) Venous insufficiency Status: Chronic Current Visit: Yes Code(s): I87.2 - Venous insufficiency (chronic) (peripheral) Type of Wound Date of Service: 02/04/19 Chief Complaint: Left lower extremity ulcer - Delayed healing. History of Wound: Mr. Chauhan is a 62 year old with PMH as stated below who presented to the wound center due to delayed healing of his left lower extremity ulcer which occurred after he developed a large hematoma after a fall and subsequent fibular fracture. He underwent incision and drainge of the hematoma with subsequent wound vac treatment for 7 days after surgery. After discontinuing the wound vac, he had applied a collagen dressing to the wound. He denies chills, fever, nausea, vomitting or loss of appetite. Progress of Wound: No new concerns at this time. Has had 18 applications of epifix so far. - Physical Exam Vital Signs Temp Pulse Resp BP 97.1 F L 87 16 110/74 02/04/19 10:15 02/04/19 10:15 02/04/19 10:15 02/04/19 10:15 General: Alert, Oriented x3, Cooperative, No apparent distress HEENT: Atraumatic, Normocephalic Oral: Moist Mucosa Neck: Supple Lungs: Normal air movement Abdomen: Non Tender, Obese Extremities: No cyanosis, Edema Skin: Ulcer/ Wound Wound Measurements and Assessment WC - Nurse 1 - General Ulcer Measurement Start: 01/14/19 09:40 Freq: Status: Active Protocol: Activity Type Activity Date Activity User E-Sign Co-Sign Detail Recorded Client Recorded Date Recorded By Document 02/01/19 14:26 MW [id number] 02/01/19 14:28 MW Document 02/04/19 10:15 MW [id number] 02/04/19 10:21 MW 02/01/19 02/04/19 14:26 10:15 Wound Center Nurse 1 [Ulcer Assessment] 1. L LATERAL LOWER EXTREMITY -Combined with other wound No -Current Size (cm) - Length 2.5 -Current Size (cm) - Width 0.5 -Current Size (cm) - Depth 0.1 -Total Square Cm 1.25 -Photo Taken No -Epithelialization Medium 34-66% -Tunneling No -Undermining/Tunneling No -Circular Undermining No -Exudate Amt Small -Exudate Type Serosanguineous -Wound Margin Flat & Intact -Granulation Amt Medium (34-66%) -Granulation Quality High [place] -Slough/Fibrin Yes -Necrosis Amt Small (1-33%) -Necrotic Tissue Type Adherent Slough -Structure Exposed N/A -Texture (Kirstie-wound Skin Appearance) Assessed, Assessed, Localized Edema Localized Edema ,Scarring -Moisture (Kirstie-wound Skin Appearance Assessed,Dry/ Assessed,Dry/ ) Scaly Scaly -Color (Kirstie-wound Skin Appearance) No Abnormality, No Abnormality, Assessed Assessed -Temperature (Kirstie-wound Skin No Abnormality No Abnormality Appearance) (Pt Warm) (Pt Warm) -Tenderness on Palpation (Kirstie-wound No Skin Appearance) -Ulcer Cleansing soap and water soap and water -Foul Odor after Cleansing No No -Anesthetic Used 5% Lidocaine Gel [Edema Assessment] -Lower Limb Edema Present Yes -Left Calf (cm) 38.5 -Left Ankle (cm) 22.5 WC - Nurse 2 - General Ulcer CM Notes Start: 01/14/19 09:40 Freq: Status: Active Protocol: Activity Type Activity Date Activity User E-Sign Co-Sign Detail Recorded Client Recorded Date Recorded By Document 02/04/19 10:47 MW [id number] 02/04/19 10:56 MW 02/04/19 10:47 Wound Center Nurse 2 [Procedure/Treatment] 1. L LATERAL LOWER EXTREMITY -Time 10:48 -Correct Patient Yes -Correct Side, Site, Position Yes -Correct Procedure Yes -Procedure Performed Yes -Type of Procedure Debridement -Clinical Debridement Subcutaneous -Post Debridement Size (cm) - Length 2.8 -Post Debridement Size (cm) - Width 0.6 -Post Debridement Size (cm) - Depth 0.1 -Total Square Cm 1.68 -Wound/Ulcer Outcome Not Healed -Ulcer Cleansing Rinsed/ Irrigated with Saline -Foul Odor after Cleansing No -Bioengineered Tissue No -Type of bioengineered Tissue EPIFIX -Expiration Date 06/16/23 -Product Lot Number [id number] -Percent Used 100 -Saline Lot Number [id number] -Bleeding Controlled with Pressure -Offloading No -Treatment Response Procedure Tolerated Well [See Physician Procedure note for Specifics] Pain Scale: 0-10 Numeric [Pain] -Is Patient Pain Free? Yes Musculoskeletal: No Muscle Wasting Neurological: Cranial nerves II-XII grossly intact Psych/Mental Status: Normal Affect Debridement Note Post-Debridement Measurements/Treatment WC - Nurse 2 - General Ulcer CM Notes Start: 01/14/19 09:40 Freq: Status: Active Protocol: Activity Type Activity Date Activity User E-Sign Co-Sign Detail Recorded Client Recorded Date Recorded By Document 01/14/19 10:24 MW [id number] 01/14/19 10:27 MW Document 01/21/19 12:36 MW [id number] 01/21/19 12:46 MW Document 01/27/19 10:13 JF [id number] 01/27/19 10:15 JF Document 02/04/19 10:47 MW [id number] 02/04/19 10:56 MW 01/14/19 01/21/19 01/27/19 10:24 12:36 10:13 Wound Center Nurse 2 1. L LATERAL LOWER EXTREMITY -Time 10:25 12:37 10:13 -Correct Patient Yes Yes Yes -Correct Side, Site, Position Yes Yes Yes -Correct Procedure Yes Yes Yes -Procedure Performed Yes Yes Yes -Type of Procedure Debridement Debridement Debridement -Clinical Debridement Subcutaneous Subcutaneous Subcutaneous -Post Debridement Size (cm) - Length 3.0 3.0 2.7 -Post Debridement Size (cm) - Width 0.7 0.7 0.5 -Post Debridement Size (cm) - Depth 0.1 0.1 0.1 -Total Square Cm 2.10 2.10 1.35 -Wound/Ulcer Outcome Not Healed Not Healed Not Healed -Ulcer Cleansing Rinsed/ Rinsed/ Rinsed/ Irrigated with Irrigated with Irrigated with Saline Saline Saline -Foul Odor after Cleansing No No No -Bioengineered Tissue Yes Yes Yes -Type of bioengineered Tissue EPIFIX EPIFIX EPIFIX -Expiration Date 05/16/23 05/16/23 06/16/23 -Product Lot Number [id number] -Percent Used 100 100 100 -Saline Lot Number [id number] -Bleeding Controlled with Pressure Pressure Pressure -Offloading No No No -Treatment Response Procedure Procedure Procedure Tolerated Well Tolerated Well Tolerated Well Pain Scale: 0-10 Numeric Is Patient Pain Free? Yes Yes Yes 02/04/19 10:47 Wound Center Nurse 2 1. L LATERAL LOWER EXTREMITY -Time 10:48 -Correct Patient Yes -Correct Side, Site, Position Yes -Correct Procedure Yes -Procedure Performed Yes -Type of Procedure Debridement -Clinical Debridement Subcutaneous -Post Debridement Size (cm) - Length 2.8 -Post Debridement Size (cm) - Width 0.6 -Post Debridement Size (cm) - Depth 0.1 -Total Square Cm 1.68 -Wound/Ulcer Outcome Not Healed -Ulcer Cleansing Rinsed/ Irrigated with Saline -Foul Odor after Cleansing No -Bioengineered Tissue No -Type of bioengineered Tissue EPIFIX -Expiration Date 06/16/23 -Product Lot Number [id number] -Percent Used 100 -Saline Lot Number [id number] -Bleeding Controlled with Pressure -Offloading No -Treatment Response Procedure Tolerated Well Pain Scale: 0-10 Numeric Is Patient Pain Free? Yes Wound debrided: Left lower extremity Wound Grade/Stage: Stage III Type of Debridement: Excisional debridement Anesthesia Used: 4% Lidocaine Solution Depth: Down to and including healthy tissue, in the subcutaneous layer Percentage of wound debrided: 100 Instrument Used: 3mm curette Tissue Removed: Slough and devitalized tissue Severity: Fat Layer Exposed Amount of bleeding with debridement: Mild Bleeding Controlled with: Pressure Patient tolerated procedure well Assessment/Plan Active Problems PAD (peripheral artery disease) (Chronic) Ulcer of left lower extremity with fat layer exposed (Chronic) Venous insufficiency (Chronic) Assessment: Left lower extremity ulcer post I and D with delayed healing. Peripheral arterial disease. Delayed healing. Lower extremity with venous insufficiency. Arterial calcification Plan: Stable. No new concerns at this time. application of Epifix done using 100% of product. Wound veil and steri-strips used to secure. He was advised to leave this in place for 1 week and not to get it wet. Hydrofera blue over top to help with drainage. Will continue 3M wrap for edema management. He will definitely continue to require advanced wound care product application such as Epifix. He was previously using Grafix and again did well however seemed to have developed a ? reaction and subsequent infection necessitating need to revert to acetic acid solution and then Promogran. Encouraged to elevate lower extremities when seated and in bed. He refuses referral to Vascular surgery. On Xarelto for Afib. His questions were answered and he was advised to call with any further questions or concerns. Follow-up in 1 week. This note was generated with [employer] dictation software. It may contain incorrect words, spelling, and punctuation that were not noted in checking the note before signing.
[2019-02-11 10:15] VITALS: BP 117/84; PULSE 83; RESP 18; TEMP 36.6; BMI 42.2
--- NOTE | 2019-02-11 11:29 | PN.PCM_ITS ---
(1) PAD (peripheral artery disease) Status: Chronic Current Visit: Yes Code(s): I73.9 - Peripheral vascular disease, unspecified (2) Ulcer of left lower extremity with fat layer exposed Status: Chronic Current Visit: Yes Code(s): L97.922 - Non-pressure chronic ulcer of unspecified part of left lower leg with fat layer exposed (3) Venous insufficiency Status: Chronic Current Visit: Yes Code(s): I87.2 - Venous insufficiency (chronic) (peripheral) Type of Wound Date of Service: 02/11/19 Chief Complaint: Left lower extremity ulcer - Delayed healing. History of Wound: Mr. Chauhan is a 62 year old with PMH as stated below who presented to the wound center due to delayed healing of his left lower extremity ulcer which occurred after he developed a large hematoma after a fall and subsequent fibular fracture. He underwent incision and drainge of the hematoma with subsequent wound vac treatment for 7 days after surgery. After discontinuing the wound vac, he had applied a collagen dressing to the wound. He denies chills, fever, nausea, vomitting or loss of appetite. Progress of Wound: No new concerns at this time. Has had 19 applications of epifix so far. - Physical Exam Vital Signs Temp Pulse Resp BP 98 F 83 18 117/84 H 02/11/19 10:15 02/11/19 10:15 02/11/19 10:15 02/11/19 10:15 General: Alert, Oriented x3, Cooperative, No apparent distress HEENT: Atraumatic, Normocephalic Oral: Moist Mucosa Neck: Supple Lungs: Normal air movement Abdomen: Non Tender, Obese Extremities: No cyanosis, Edema Skin: Ulcer/ Wound Wound Measurements and Assessment WC - Nurse 1 - General Ulcer Measurement Start: 01/14/19 09:40 Freq: Status: Active Protocol: Activity Type Activity Date Activity User E-Sign Co-Sign Detail Recorded Client Recorded Date Recorded By Document 02/11/19 10:15 DL [id number] 02/11/19 10:25 DL 02/11/19 10:15 Wound Center Nurse 1 [Ulcer Assessment] 1. L LATERAL LOWER EXTREMITY -Current Size (cm) - Length 2.7 -Current Size (cm) - Width 0.7 -Current Size (cm) - Depth 0.2 -Total Square Cm 1.89 -Photo Taken No -Exudate Amt Small -Exudate Type Serosanguineous -Wound Margin Distinct, Outline Attached -Granulation Amt Large (67-100%) -Granulation Quality Pale,Patriot -Necrosis Amt Small (1-33%) -Necrotic Tissue Type Adherent Slough -Structure Exposed N/A -Texture (Kirstie-wound Skin Appearance) Scarring -Moisture (Kirstie-wound Skin Appearance Dry/Scaly ) -Color (Kirstie-wound Skin Appearance) No Abnormality -Temperature (Kirstie-wound Skin No Abnormality Appearance) (Pt Warm) -Tenderness on Palpation (Kirstie-wound No Skin Appearance) -Ulcer Cleansing Wound Cleanser -Foul Odor after Cleansing No -Anesthetic Used 5% Lidocaine Gel [Edema Assessment] -Point of Measurement (cm from the 41 distal point) -Point of measurement (cm from the 22.1 medial instep) WC - Nurse 2 - General Ulcer CM Notes Start: 01/14/19 09:40 Freq: Status: Active Protocol: Activity Type Activity Date Activity User E-Sign Co-Sign Detail Recorded Client Recorded Date Recorded By Document 02/11/19 11:01 MW [id number] 02/11/19 11:03 MW 02/11/19 11:01 Wound Center Nurse 2 [Procedure/Treatment] 1. L LATERAL LOWER EXTREMITY -Time 11:02 -Correct Patient Yes -Correct Side, Site, Position Yes -Correct Procedure Yes -Procedure Performed Yes -Type of Procedure Debridement -Clinical Debridement Subcutaneous -Post Debridement Size (cm) - Length 2.6 -Post Debridement Size (cm) - Width 0.6 -Post Debridement Size (cm) - Depth 0.1 -Total Square Cm 1.56 -Wound/Ulcer Outcome Not Healed -Ulcer Cleansing Rinsed/ Irrigated with Saline -Foul Odor after Cleansing No -Bioengineered Tissue Yes -Type of bioengineered Tissue EPIFIX -Expiration Date 05/16/23 -Product Lot Number [id number] -Percent Used 100 -Saline Lot Number [id number] -Bleeding Controlled with Pressure -Offloading No -Treatment Response Procedure Tolerated Well [See Physician Procedure note for Specifics] Pain Scale: 0-10 Numeric [Pain] -Is Patient Pain Free? Yes Musculoskeletal: No Muscle Wasting Neurological: Cranial nerves II-XII grossly intact Psych/Mental Status: Normal Affect Debridement Note Post-Debridement Measurements/Treatment WC - Nurse 2 - General Ulcer CM Notes Start: 01/14/19 09:40 Freq: Status: Active Protocol: Activity Type Activity Date Activity User E-Sign Co-Sign Detail Recorded Client Recorded Date Recorded By Document 01/14/19 10:24 MW [id number] 01/14/19 10:27 MW Document 01/21/19 12:36 MW [id number] 01/21/19 12:46 MW Document 01/27/19 10:13 JF [id number] 01/27/19 10:15 JF Document 02/04/19 10:47 MW [id number] 02/04/19 10:56 MW Document 02/11/19 11:01 MW [id number] 02/11/19 11:03 MW 01/14/19 01/21/19 01/27/19 10:24 12:36 10:13 Wound Center Nurse 2 1. L LATERAL LOWER EXTREMITY -Time 10:25 12:37 10:13 -Correct Patient Yes Yes Yes -Correct Side, Site, Position Yes Yes Yes -Correct Procedure Yes Yes Yes -Procedure Performed Yes Yes Yes -Type of Procedure Debridement Debridement Debridement -Clinical Debridement Subcutaneous Subcutaneous Subcutaneous -Post Debridement Size (cm) - Length 3.0 3.0 2.7 -Post Debridement Size (cm) - Width 0.7 0.7 0.5 -Post Debridement Size (cm) - Depth 0.1 0.1 0.1 -Total Square Cm 2.10 2.10 1.35 -Wound/Ulcer Outcome Not Healed Not Healed Not Healed -Ulcer Cleansing Rinsed/ Rinsed/ Rinsed/ Irrigated with Irrigated with Irrigated with Saline Saline Saline -Foul Odor after Cleansing No No No -Bioengineered Tissue Yes Yes Yes -Type of bioengineered Tissue EPIFIX EPIFIX EPIFIX -Expiration Date 05/16/23 05/16/23 06/16/23 -Product Lot Number [id number] -Percent Used 100 100 100 -Saline Lot Number [id number] -Bleeding Controlled with Pressure Pressure Pressure -Offloading No No No -Treatment Response Procedure Procedure Procedure Tolerated Well Tolerated Well Tolerated Well Pain Scale: 0-10 Numeric Is Patient Pain Free? Yes Yes Yes 02/04/19 02/11/19 10:47 11:01 Wound Center Nurse 2 1. L LATERAL LOWER EXTREMITY -Time 10:48 11:02 -Correct Patient Yes Yes -Correct Side, Site, Position Yes Yes -Correct Procedure Yes Yes -Procedure Performed Yes Yes -Type of Procedure Debridement Debridement -Clinical Debridement Subcutaneous Subcutaneous -Post Debridement Size (cm) - Length 2.8 2.6 -Post Debridement Size (cm) - Width 0.6 0.6 -Post Debridement Size (cm) - Depth 0.1 0.1 -Total Square Cm 1.68 1.56 -Wound/Ulcer Outcome Not Healed Not Healed -Ulcer Cleansing Rinsed/ Rinsed/ Irrigated with Irrigated with Saline Saline -Foul Odor after Cleansing No No -Bioengineered Tissue No Yes -Type of bioengineered Tissue EPIFIX EPIFIX -Expiration Date 06/16/23 05/16/23 -Product Lot Number [id number] -Percent Used 100 100 -Saline Lot Number [id number] -Bleeding Controlled with Pressure Pressure -Offloading No No -Treatment Response Procedure Procedure Tolerated Well Tolerated Well Pain Scale: 0-10 Numeric Is Patient Pain Free? Yes Yes Wound debrided: Left lower extremity Wound Grade/Stage: Stage III Type of Debridement: Excisional debridement Anesthesia Used: 4% Lidocaine Solution Depth: Down to and including healthy tissue, in the subcutaneous layer Percentage of wound debrided: 100 Instrument Used: 3mm curette Tissue Removed: Slough and devitalized tissue Severity: Fat Layer Exposed Amount of bleeding with debridement: Mild Bleeding Controlled with: Pressure Patient tolerated procedure well Assessment/Plan Active Problems PAD (peripheral artery disease) (Chronic) Ulcer of left lower extremity with fat layer exposed (Chronic) Venous insufficiency (Chronic) Assessment: Left lower extremity ulcer post I and D with delayed healing. Peripheral arterial disease. Delayed healing. Lower extremity with venous insufficiency. Arterial calcification Plan: No significnat change in 3 weeks. No increased drainage, pain or erythema. 20th application of Epifix done using 100% of product. Wound veil and steri- strips used to secure. He was advised to leave this in place for 1 week and not to get it wet. Hydrofera blue over top to help with drainage. Will continue 3M wrap for edema management. He will definitely continue to require advanced wound care product application such as Epifix. He was previously using Grafix and again did well however seemed to have developed a ? reaction and subsequent infection necessitating need to revert to acetic acid solution and then Promogran. Has 2 more applications of Epifix and if ulcer is not healed, will continue with pomoigran with hydrofera blue until healed. Encouraged to elevate lower extremities when seated and in bed. He refuses referral to Vascular surgery. On Xarelto for Afib. His questions were answered and he was advised to call with any further questions or concerns. Follow-up in 1 week. This note was generated with [employer] dictation software. It may contain incorrect words, spelling, and punctuation that were not noted in checking the note before signing.
== END 2019-02-13 23:59 ==
LOC: WC 10:15
PROVIDERS: Family Provider Family Medicine; PCP Family Medicine; Referring Provider Internal Medicine; Visit Provider Internal Medicine
DX: I73.9 Peripheral vascular disease, unspecified (principal); I87.2 Venous insufficiency (chronic) (peripheral); L97.822 Non-pressure chronic ulcer of other part of left lower leg with fat layer exposed; Z79.01 Long term (current) use of anticoagulants; I48.91 Unspecified atrial fibrillation
CPT/HCPCS: 15271; 29581; 99212; 99213; Q4186; G0463

== ENCOUNTER 2019-03-15 13:00 | Outpatient (RCR) | payer OTHER, SELFPAY ==
[2019-02-14 00:31] VITALS: BP 117/84; PULSE 83; RESP 18; TEMP 36.6
[2019-02-18 10:24] VITALS: BP 119/79; PULSE 86; RESP 18; TEMP 36.2; BMI 42.2
--- NOTE | 2019-02-18 12:15 | PN.PCM_ITS ---
(1) Ulcer of left lower extremity with fat layer exposed Status: Chronic Current Visit: Yes Code(s): L97.922 - Non-pressure chronic ulcer of unspecified part of left lower leg with fat layer exposed (2) PAD (peripheral artery disease) Status: Chronic Current Visit: Yes Code(s): I73.9 - Peripheral vascular disease, unspecified (3) Venous insufficiency Status: Chronic Current Visit: Yes Code(s): I87.2 - Venous insufficiency (chronic) (peripheral) Type of Wound Date of Service: 02/18/19 Chief Complaint: Left lower extremity ulcer - Delayed healing. History of Wound: Mr. Chauhan is a 62 year old with PMH as stated below who presented to the wound center due to delayed healing of his left lower extremity ulcer which occurred after he developed a large hematoma after a fall and subsequent fibular fracture. He underwent incision and drainge of the hematoma with subsequent wound vac treatment for 7 days after surgery. After discontinuing the wound vac, he had applied a collagen dressing to the wound. He denies chills, fever, nausea, vomitting or loss of appetite. Progress of Wound: No new concerns at this time. Has had 20 applications of epifix so far. - Physical Exam Vital Signs Temp Pulse Resp BP 97.1 F L 86 18 119/79 02/18/19 10:24 02/18/19 10:24 02/18/19 10:24 02/18/19 10:24 General: Alert, Oriented x3, Cooperative, No apparent distress HEENT: Atraumatic, Normocephalic Oral: Moist Mucosa Neck: Supple Lungs: Normal air movement Extremities: No cyanosis, Edema Skin: Ulcer/ Wound Wound Measurements and Assessment WC - Nurse 1 - General Ulcer Measurement Start: 02/18/19 10:23 Freq: Status: Active Protocol: Activity Type Activity Date Activity User E-Sign Co-Sign Detail Recorded Client Recorded Date Recorded By Document 02/18/19 10:24 RB [id number] 02/18/19 10:26 RB 02/18/19 10:24 Wound Center Nurse 1 [Ulcer Assessment] 1. L LATERAL LOWER EXTREMITY -Combined with other wound No -Current Size (cm) - Length 3 -Current Size (cm) - Width 0.8 -Current Size (cm) - Depth 0.2 -Total Square Cm 2.4 -Tunneling No -Undermining/Tunneling No -Circular Undermining No -Exudate Amt Small -Exudate Type Serosanguineous -Wound Margin Flat & Intact -Granulation Amt Medium (34-66%) -Granulation Quality Faxon,Red -Slough/Fibrin Yes -Necrosis Amt Small (1-33%) -Necrotic Tissue Type Adherent Slough -Structure Exposed N/A -Texture (Kirstie-wound Skin Appearance) Scarring -Moisture (Kirstie-wound Skin Appearance Assessed ) -Color (Kirstie-wound Skin Appearance) Assessed -Temperature (Kirstie-wound Skin No Abnormality Appearance) (Pt Warm) -Tenderness on Palpation (Kirstie-wound No Skin Appearance) -Ulcer Cleansing Wound Cleanser -Foul Odor after Cleansing No -Anesthetic Used 5% Lidocaine Gel [Edema Assessment] -Lower Limb Edema Present Yes -Left Calf (cm) 41 -Left Ankle (cm) 23 WC - Nurse 2 - General Ulcer CM Notes Start: 02/18/19 10:23 Freq: Status: Active Protocol: Activity Type Activity Date Activity User E-Sign Co-Sign Detail Recorded Client Recorded Date Recorded By Document 02/18/19 10:53 MW [id number] 02/18/19 10:58 MW 02/18/19 10:53 Wound Center Nurse 2 [Procedure/Treatment] 1. L LATERAL LOWER EXTREMITY -Time 10:55 -Correct Patient Yes -Correct Side, Site, Position Yes -Correct Procedure Yes -Procedure Performed Yes -Type of Procedure Debridement -Clinical Debridement Subcutaneous -Post Debridement Size (cm) - Length 2.0 -Post Debridement Size (cm) - Width 0.5 -Post Debridement Size (cm) - Depth 0.1 -Total Square Cm 1.00 -Wound/Ulcer Outcome Not Healed -Ulcer Cleansing Rinsed/ Irrigated with Saline -Foul Odor after Cleansing No -Bioengineered Tissue Yes -Type of bioengineered Tissue EPIFIX -Expiration Date 06/16/23 -Product Lot Number [id number] -Percent Used 100 -Saline Lot Number [id number] -Bleeding Controlled with Pressure -Offloading No -Treatment Response Procedure Tolerated Well [See Physician Procedure note for Specifics] Pain Scale: 0-10 Numeric [Pain] -Is Patient Pain Free? Yes Musculoskeletal: No Muscle Wasting Neurological: Cranial nerves II-XII grossly intact Psych/Mental Status: Normal Affect Debridement Note Post-Debridement Measurements/Treatment WC - Nurse 2 - General Ulcer CM Notes Start: 02/18/19 10:23 Freq: Status: Active Protocol: Activity Type Activity Date Activity User E-Sign Co-Sign Detail Recorded Client Recorded Date Recorded By Document 02/18/19 10:53 MW [id number] 02/18/19 10:58 MW 02/18/19 10:53 Wound Center Nurse 2 1. L LATERAL LOWER EXTREMITY -Time 10:55 -Correct Patient Yes -Correct Side, Site, Position Yes -Correct Procedure Yes -Procedure Performed Yes -Type of Procedure Debridement -Clinical Debridement Subcutaneous -Post Debridement Size (cm) - Length 2.0 -Post Debridement Size (cm) - Width 0.5 -Post Debridement Size (cm) - Depth 0.1 -Total Square Cm 1.00 -Wound/Ulcer Outcome Not Healed -Ulcer Cleansing Rinsed/ Irrigated with Saline -Foul Odor after Cleansing No -Bioengineered Tissue Yes -Type of bioengineered Tissue EPIFIX -Expiration Date 06/16/23 -Product Lot Number [id number] -Percent Used 100 -Saline Lot Number [id number] -Bleeding Controlled with Pressure -Offloading No -Treatment Response Procedure Tolerated Well Pain Scale: 0-10 Numeric Is Patient Pain Free? Yes Wound debrided: Left Lower Extremity Wound Grade/Stage: Stage III Type of Debridement: Excisional debridement Anesthesia Used: 4% Lidocaine Solution Depth: Down to and including healthy tissue, in the subcutaneous layer Percentage of wound debrided: 100 Instrument Used: 3mm curette Tissue Removed: Slough and devitalized tissue Severity: Fat Layer Exposed Amount of bleeding with debridement: Mild Bleeding Controlled with: Pressure Patient tolerated procedure well Assessment/Plan Active Problems PAD (peripheral artery disease) (Chronic) Ulcer of left lower extremity with fat layer exposed (Chronic) Venous insufficiency (Chronic) Assessment: Left lower extremity ulcer post I and D with delayed healing. Peripheral arterial disease. Delayed healing. Lower extremity with venous insufficiency. Arterial calcification Plan: Improving. Debridement done as docuemented above. Procedure was well tolerated. 21st application of Epifix done using 100% of product. Wound veil and steri-strips used to secure. He was advised to leave this in place for 1 week and not to get it wet. Hydrofera blue over top to help with drainage. Will continue 3M wrap for edema management. He will definitely continue to require advanced wound care product application such as Epifix. He was previously using Grafix and again did well however seemed to have developed a ? reaction and subsequent infection necessitating need to revert to acetic acid solution and then Promogran. Has 2 more applications of Epifix and if ulcer is not healed, will continue with pomoigran with hydrofera blue until healed. Encouraged to elevate lower extremities when seated and in bed. He refuses referral to Vascular surgery. On Xarelto for Afib. His questions were answered and he was advised to call with any further questions or concerns. Follow-up in 1 week. This note was generated with [employer] dictation software. It may contain incorrect words, spelling, and punctuation that were not noted in checking the note before signing.
[2019-02-25 10:41] VITALS: BP 121/66; PULSE 76; RESP 16; TEMP 36; BMI 42.2
--- NOTE | 2019-02-25 11:14 | PCM.WC.PN ---
(1) Ulcer of left lower extremity with fat layer exposed Status: Chronic Current Visit: Yes Code(s): L97.922 - Non-pressure chronic ulcer of unspecified part of left lower leg with fat layer exposed (2) PAD (peripheral artery disease) Status: Chronic Current Visit: Yes Code(s): I73.9 - Peripheral vascular disease, unspecified (3) Venous insufficiency Status: Chronic Current Visit: Yes Code(s): I87.2 - Venous insufficiency (chronic) (peripheral) Type of Wound Date of Service: 02/25/19 Chief Complaint: Left lower extremity ulcer - Delayed healing. History of Wound: Mr. hCauhan is a 62 year old with PMH as stated below who presented to the wound center due to delayed healing of his left lower extremity ulcer which occurred after he developed a large hematoma after a fall and subsequent fibular fracture. He underwent incision and drainge of the hematoma with subsequent wound vac treatment for 7 days after surgery. After discontinuing the wound vac, he had applied a collagen dressing to the wound. He denies chills, fever, nausea, vomitting or loss of appetite. Progress of Wound: No new concerns at this time. Has had 21 applications of epifix so far. Improving ulcer. - Physical Exam Vital Signs Temp Pulse Resp BP 96.8 F L 76 16 121/66 H 02/25/19 10:41 02/25/19 10:41 02/25/19 10:41 02/25/19 10:41 General: Alert, Oriented x3, Cooperative, No apparent distress HEENT: Atraumatic, Normocephalic Oral: Moist Mucosa Neck: Supple Lungs: Normal air movement Extremities: No cyanosis, Edema Skin: Ulcer/ Wound Wound Measurements and Assessment WC - Nurse 1 - General Ulcer Measurement Start: 02/18/19 10:23 Freq: Status: Active Protocol: Activity Type Activity Date Activity User E-Sign Co-Sign Detail Recorded Client Recorded Date Recorded By Document 02/25/19 10:41 [facility] [id number] 02/25/19 10:51 [facility] 02/25/19 10:41 Wound Center Nurse 1 [Ulcer Assessment] 1. L LATERAL LOWER EXTREMITY -Combined with other wound No -Current Size (cm) - Length 1.9 -Current Size (cm) - Width 0.6 -Current Size (cm) - Depth 0.2 -Total Square Cm 1.14 -Date of Last Picture (Recall this 02/25/19 field) -Photo Taken Yes -Epithelialization Small 1-33% -Tunneling No -Undermining/Tunneling No -Circular Undermining No -Exudate Amt Medium -Exudate Type Serosanguineous -Wound Margin Distinct, Outline Attached -Granulation Amt Medium (34-66%) -Granulation Quality Red -Slough/Fibrin Yes -Necrosis Amt Small (1-33%) -Necrotic Tissue Type Adherent Slough -Texture (Kirstie-wound Skin Appearance) Assessed, Scarring -Moisture (Kirstie-wound Skin Appearance Assessed,Dry/ ) Scaly -Color (Kirstie-wound Skin Appearance) Assessed, Erythema -Temperature (Kirstie-wound Skin No Abnormality Appearance) (Pt Warm) -Tenderness on Palpation (Kirstie-wound No Skin Appearance) -Ulcer Cleansing SOAP AND WATER -Foul Odor after Cleansing No -Anesthetic Used 5% Lidocaine Gel [Edema Assessment] -Lower Limb Edema Present Yes -Left Calf (cm) 37.1 -Left Ankle (cm) 22.3 WC - Nurse 2 - General Ulcer CM Notes Start: 02/18/19 10:23 Freq: Status: Active Protocol: Activity Type Activity Date Activity User E-Sign Co-Sign Detail Recorded Client Recorded Date Recorded By Document 02/25/19 11:02 MW [id number] 02/25/19 11:11 MW 02/25/19 11:02 Wound Center Nurse 2 [Procedure/Treatment] 1. L LATERAL LOWER EXTREMITY -Time 11:08 -Correct Patient Yes -Correct Side, Site, Position Yes -Correct Procedure Yes -Procedure Performed Yes -Type of Procedure Debridement -Clinical Debridement Subcutaneous -Post Debridement Size (cm) - Length 1.7 -Post Debridement Size (cm) - Width 0.4 -Post Debridement Size (cm) - Depth 0.1 -Total Square Cm 0.68 -Wound/Ulcer Outcome Not Healed -Ulcer Cleansing Rinsed/ Irrigated with Saline -Foul Odor after Cleansing No -Bioengineered Tissue Yes -Type of bioengineered Tissue EPIFIX -Expiration Date 05/16/23 -Product Lot Number [id number] -Percent Used 100 -Saline Lot Number [id number] -Bleeding Controlled with Pressure -Offloading No -Treatment Response Procedure Tolerated Well [See Physician Procedure note for Specifics] Pain Scale: 0-10 Numeric [Pain] -Is Patient Pain Free? Yes Musculoskeletal: No Muscle Wasting Neurological: Cranial nerves II-XII grossly intact Psych/Mental Status: Normal Affect Debridement Note Post-Debridement Measurements/Treatment WC - Nurse 2 - General Ulcer CM Notes Start: 02/18/19 10:23 Freq: Status: Active Protocol: Activity Type Activity Date Activity User E-Sign Co-Sign Detail Recorded Client Recorded Date Recorded By Document 02/18/19 10:53 MW [id number] 02/18/19 10:58 MW Document 02/25/19 11:02 MW [id number] 02/25/19 11:11 MW 02/18/19 02/25/19 10:53 11:02 Wound Center Nurse 2 1. L LATERAL LOWER EXTREMITY -Time 10:55 11:08 -Correct Patient Yes Yes -Correct Side, Site, Position Yes Yes -Correct Procedure Yes Yes -Procedure Performed Yes Yes -Type of Procedure Debridement Debridement -Clinical Debridement Subcutaneous Subcutaneous -Post Debridement Size (cm) - Length 2.0 1.7 -Post Debridement Size (cm) - Width 0.5 0.4 -Post Debridement Size (cm) - Depth 0.1 0.1 -Total Square Cm 1.00 0.68 -Wound/Ulcer Outcome Not Healed Not Healed -Ulcer Cleansing Rinsed/ Rinsed/ Irrigated with Irrigated with Saline Saline -Foul Odor after Cleansing No No -Bioengineered Tissue Yes Yes -Type of bioengineered Tissue EPIFIX EPIFIX -Expiration Date 06/16/23 05/16/23 -Product Lot Number [id number] -Percent Used 100 100 -Saline Lot Number [id number] -Bleeding Controlled with Pressure Pressure -Offloading No No -Treatment Response Procedure Procedure Tolerated Well Tolerated Well Pain Scale: 0-10 Numeric Is Patient Pain Free? Yes Yes Wound debrided: Left Leg Wound Grade/Stage: Stage III Type of Debridement: Excisional debridement Anesthesia Used: 4% Lidocaine Solution Depth: Down to and including healthy tissue, in the subcutaneous layer Percentage of wound debrided: 100 Instrument Used: 3mm curette Tissue Removed: Slough and devitalized tissue Severity: Fat Layer Exposed Amount of bleeding with debridement: Mild Bleeding Controlled with: Pressure Patient tolerated procedure well Assessment/Plan Active Problems PAD (peripheral artery disease) (Chronic) Ulcer of left lower extremity with fat layer exposed (Chronic) Venous insufficiency (Chronic) Assessment: Left lower extremity ulcer post I and D with delayed healing. Peripheral arterial disease. Delayed healing. Lower extremity with venous insufficiency. Arterial calcification Plan: Improving. Debridement done as docuemented above. Procedure was well tolerated. Final application of Epifix done using 100% of product. Wound veil and steri-strips used to secure. He was advised to leave this in place for 1 week and not to get it wet. Hydrofera blue over top to help with drainage. Will continue 3M wrap for edema management. Follow-up in 1 week. If not totally healed, will start Pomogran and hydrofera blue. His questions were answered and he was advised to call with any questions or concerns. This note was generated with [employer] dictation software. It may contain incorrect words, spelling, and punctuation that were not noted in checking the note before signing.
[2019-03-04 09:59] VITALS: BP 124/77; PULSE 86; RESP 16; TEMP 36.6; BMI 42.2
--- NOTE | 2019-03-04 10:27 | PN.PCM_ITS ---
(1) Ulcer of left lower extremity with fat layer exposed Status: Chronic Current Visit: Yes Code(s): L97.922 - Non-pressure chronic ulcer of unspecified part of left lower leg with fat layer exposed (2) PAD (peripheral artery disease) Status: Chronic Current Visit: Yes Code(s): I73.9 - Peripheral vascular disease, unspecified (3) Venous insufficiency Status: Chronic Current Visit: Yes Code(s): I87.2 - Venous insufficiency (chronic) (peripheral) Type of Wound Date of Service: 03/04/19 Chief Complaint: Left lower extremity ulcer - Delayed healing. History of Wound: Mr. Chauhan is a 62 year old with PMH as stated below who presented to the wound center due to delayed healing of his left lower extremity ulcer which occurred after he developed a large hematoma after a fall and subsequent fibular fracture. He underwent incision and drainge of the hematoma with subsequent wound vac treatment for 7 days after surgery. After discontinuing the wound vac, he had applied a collagen dressing to the wound. He denies chills, fever, nausea, vomitting or loss of appetite. Progress of Wound: Improving ulcer. Has completed alocated epifix. No new cocnerns at this time. - Physical Exam Vital Signs Temp Pulse Resp BP 98 F 86 16 124/77 H 03/04/19 09:59 03/04/19 09:59 03/04/19 09:59 03/04/19 09:59 General: Alert, Oriented x3, Cooperative, No apparent distress HEENT: Atraumatic, Normocephalic Oral: Moist Mucosa Neck: Supple Lungs: Normal air movement Extremities: No cyanosis, Edema Skin: Ulcer/ Wound Wound Measurements and Assessment WC - Nurse 1 - General Ulcer Measurement Start: 02/18/19 10:23 Freq: Status: Active Protocol: Activity Type Activity Date Activity User E-Sign Co-Sign Detail Recorded Client Recorded Date Recorded By Document 03/04/19 09:59 [facility] [id number] 03/04/19 10:05 [facility] 03/04/19 09:59 Wound Center Nurse 1 [Ulcer Assessment] 1. L LATERAL LOWER EXTREMITY -Combined with other wound No -Current Size (cm) - Length 2.9 -Current Size (cm) - Width 0.8 -Current Size (cm) - Depth 0.1 -Total Square Cm 2.32 -Photo Taken No -Epithelialization None Present -Tunneling No -Undermining/Tunneling No -Circular Undermining No -Wound Margin Flat & Intact -Granulation Amt None Present (0 %) -Slough/Fibrin Yes -Necrosis Amt Large (67-100%) -Necrotic Tissue Type Adherent Slough -Texture (Kirstie-wound Skin Appearance) Assessed, Scarring -Moisture (Kirstie-wound Skin Appearance No Abnormality, ) Dry/Scaly -Color (Kirstie-wound Skin Appearance) Assessed -Temperature (Kirstie-wound Skin No Abnormality Appearance) (Pt Warm) -Tenderness on Palpation (Kirstie-wound No Skin Appearance) -Ulcer Cleansing SOAP AND WATER -Foul Odor after Cleansing No -Anesthetic Used 5% Lidocaine Gel [Edema Assessment] -Lower Limb Edema Present Yes -Left Calf (cm) 36.1 -Left Ankle (cm) 22.5 WC - Nurse 2 - General Ulcer CM Notes Start: 02/18/19 10:23 Freq: Status: Active Protocol: Activity Type Activity Date Activity User E-Sign Co-Sign Detail Recorded Client Recorded Date Recorded By Document 03/04/19 10:15 MW [id number] 03/04/19 10:17 MW 03/04/19 10:15 Wound Center Nurse 2 [Procedure/Treatment] 1. L LATERAL LOWER EXTREMITY -Time 10:17 -Correct Patient Yes -Correct Side, Site, Position Yes -Correct Procedure Yes -Procedure Performed Yes -Type of Procedure Debridement -Clinical Debridement Subcutaneous -Post Debridement Size (cm) - Length 1.5 -Post Debridement Size (cm) - Width 0.3 -Post Debridement Size (cm) - Depth 0.1 -Total Square Cm 0.45 -Wound/Ulcer Outcome Not Healed -Ulcer Cleansing Rinsed/ Irrigated with Saline -Foul Odor after Cleansing No -Bioengineered Tissue No -Bleeding Controlled with Pressure -Offloading No -Treatment Response Procedure Tolerated Well [See Physician Procedure note for Specifics] Pain Scale: 0-10 Numeric [Pain] -Is Patient Pain Free? Yes Musculoskeletal: No Muscle Wasting Neurological: Cranial nerves II-XII grossly intact Psych/Mental Status: Normal Affect Debridement Note Post-Debridement Measurements/Treatment WC - Nurse 2 - General Ulcer CM Notes Start: 02/18/19 10:23 Freq: Status: Active Protocol: Activity Type Activity Date Activity User E-Sign Co-Sign Detail Recorded Client Recorded Date Recorded By Document 02/18/19 10:53 MW [id number] 02/18/19 10:58 MW Document 02/25/19 11:02 MW [id number] 02/25/19 11:11 MW Document 03/04/19 10:15 MW [id number] 03/04/19 10:17 MW 02/18/19 02/25/19 03/04/19 10:53 11:02 10:15 Wound Center Nurse 2 1. L LATERAL LOWER EXTREMITY -Time 10:55 11:08 10:17 -Correct Patient Yes Yes Yes -Correct Side, Site, Position Yes Yes Yes -Correct Procedure Yes Yes Yes -Procedure Performed Yes Yes Yes -Type of Procedure Debridement Debridement Debridement -Clinical Debridement Subcutaneous Subcutaneous Subcutaneous -Post Debridement Size (cm) - Length 2.0 1.7 1.5 -Post Debridement Size (cm) - Width 0.5 0.4 0.3 -Post Debridement Size (cm) - Depth 0.1 0.1 0.1 -Total Square Cm 1.00 0.68 0.45 -Wound/Ulcer Outcome Not Healed Not Healed Not Healed -Ulcer Cleansing Rinsed/ Rinsed/ Rinsed/ Irrigated with Irrigated with Irrigated with Saline Saline Saline -Foul Odor after Cleansing No No No -Bioengineered Tissue Yes Yes No -Type of bioengineered Tissue EPIFIX EPIFIX -Expiration Date 06/16/23 05/16/23 -Product Lot Number [id number] -Percent Used 100 100 -Saline Lot Number [id number] -Bleeding Controlled with Pressure Pressure Pressure -Offloading No No No -Treatment Response Procedure Procedure Procedure Tolerated Well Tolerated Well Tolerated Well Pain Scale: 0-10 Numeric Is Patient Pain Free? Yes Yes Yes Wound debrided: Left Leg Wound Grade/Stage: Stage III Type of Debridement: Excisional debridement Anesthesia Used: 4% Lidocaine Solution Depth: Down to and including healthy tissue, in the subcutaneous layer Percentage of wound debrided: 100 Instrument Used: 3mm curette Tissue Removed: Slough and devitalized tissue Severity: Fat Layer Exposed Amount of bleeding with debridement: Mild Bleeding Controlled with: Pressure Patient tolerated procedure well Assessment/Plan Active Problems PAD (peripheral artery disease) (Chronic) Ulcer of left lower extremity with fat layer exposed (Chronic) Venous insufficiency (Chronic) Assessment: Left lower extremity ulcer post I and D with delayed healing. Peripheral arterial disease. Delayed healing. Lower extremity with venous insufficiency. Arterial calcification Plan: Improving. Debridement done as docuemented above. Procedure was well tolerated. Switch to Pomogram with hydrofera blue over top. Follow up on Friday for a nurse visit. Will continue 3M wrap for edema management. His questions were answered and he was advised to call with any questions or concerns. Follow up with me in 1 week. This note was generated with [employer] dictation software. It may contain incorrect words, spelling, and punctuation that were not noted in checking the note before signing.
[2019-03-08 15:26] VITALS: BP 124/86; PULSE 99; RESP 18; TEMP 36.7; BMI 42.2
[2019-03-11 09:41] VITALS: BP 116/89; PULSE 89; RESP 18; TEMP 36.3; BMI 42.2
--- NOTE | 2019-03-11 10:20 | PCM.WC.PN ---
(1) Ulcer of left lower extremity with fat layer exposed Status: Chronic Current Visit: Yes Code(s): L97.922 - Non-pressure chronic ulcer of unspecified part of left lower leg with fat layer exposed (2) PAD (peripheral artery disease) Status: Chronic Current Visit: Yes Code(s): I73.9 - Peripheral vascular disease, unspecified (3) Venous insufficiency Status: Chronic Current Visit: Yes Code(s): I87.2 - Venous insufficiency (chronic) (peripheral) Type of Wound Date of Service: 03/11/19 Chief Complaint: Left lower extremity ulcer - Delayed healing. History of Wound: Mr. Chauhan is a 62 year old with PMH as stated below who presented to the wound center due to delayed healing of his left lower extremity ulcer which occurred after he developed a large hematoma after a fall and subsequent fibular fracture. He underwent incision and drainge of the hematoma with subsequent wound vac treatment for 7 days after surgery. After discontinuing the wound vac, he had applied a collagen dressing to the wound. He denies chills, fever, nausea, vomitting or loss of appetite. Progress of Wound: He denies any cocnerns at this time. Some skin breakdown noted today. - Physical Exam Vital Signs Temp Pulse Resp BP 97.3 F L 89 18 116/89 H 03/11/19 09:41 03/11/19 09:41 03/11/19 09:41 03/11/19 09:41 General: Alert, Oriented x3, Cooperative, No apparent distress HEENT: Atraumatic, Normocephalic Oral: Moist Mucosa Neck: Supple Lungs: Normal air movement Extremities: No cyanosis Skin: Ulcer/ Wound Wound Measurements and Assessment WC - Nurse 1 - General Ulcer Measurement Start: 02/18/19 10:23 Freq: Status: Active Protocol: Activity Type Activity Date Activity User E-Sign Co-Sign Detail Recorded Client Recorded Date Recorded By Document 03/08/19 15:26 [id number] 03/08/19 15:31 Document 03/11/19 09:41 [id number] 03/11/19 09:42 CS 03/08/19 03/11/19 15:26 09:41 Wound Center Nurse 1 [Ulcer Assessment] 1. L LATERAL LOWER EXTREMITY -Combined with other wound No No -Current Size (cm) - Length 1.7 -Current Size (cm) - Width 0.2 -Current Size (cm) - Depth 0.1 -Total Square Cm 0.34 -Photo Taken No No -Epithelialization Medium 34-66% Small 1-33% -Tunneling No -Undermining/Tunneling No No -Circular Undermining No No -Classification - Thickness Partial Thickness -Exudate Amt Small Small -Exudate Type Purulent Serous -Wound Margin Distinct, Distinct, Outline Outline Attached Attached -Granulation Amt Medium (34-66%) Medium (34-66%) -Granulation Quality Pale Red -Slough/Fibrin Yes -Necrosis Amt Small (1-33%) None Present (0 %) -Necrotic Tissue Type Adherent Slough Adherent Slough -Structure Exposed None/Limited to None/Limited to Skin Breakdown Skin Breakdown -Texture (Kirstie-wound Skin Appearance) Assessed,Rash Assessed, Scarring -Moisture (Kirstie-wound Skin Appearance Assessed,Dry/ Dry/Scaly ) Scaly -Color (Kirstie-wound Skin Appearance) Assessed, No Abnormality Erythema -Temperature (Kirstie-wound Skin No Abnormality No Abnormality Appearance) (Pt Warm) (Pt Warm) -Tenderness on Palpation (Kirstie-wound No No Skin Appearance) -Ulcer Cleansing soap 7 water Rinsed/ Irrigated with Saline -Foul Odor after Cleansing No No -Anesthetic Used 4% Lidocaine Solution [Edema Assessment] -Lower Limb Edema Present Yes No -Left Calf (cm) 35 -Left Ankle (cm) 21.5 WC - Nurse 2 - General Ulcer CM Notes Start: 02/18/19 10:23 Freq: Status: Active Protocol: Activity Type Activity Date Activity User E-Sign Co-Sign Detail Recorded Client Recorded Date Recorded By Document 03/11/19 10:13 MW [id number] 03/11/19 10:17 MW 03/11/19 10:13 Wound Center Nurse 2 [Procedure/Treatment] 1. L LATERAL LOWER EXTREMITY -Time 10:13 -Correct Patient Yes -Correct Side, Site, Position Yes -Correct Procedure Yes -Procedure Performed Yes -Post Debridement Size (cm) - Length 1.5 -Post Debridement Size (cm) - Width 0.2 -Post Debridement Size (cm) - Depth 0.1 -Total Square Cm 0.30 -Wound/Ulcer Outcome Not Healed -Ulcer Cleansing Rinsed/ Irrigated with Saline -Foul Odor after Cleansing No -Bioengineered Tissue No -Bleeding Controlled with Pressure -Offloading No -Treatment Response Procedure Tolerated Well [See Physician Procedure note for Specifics] Pain Scale: 0-10 Numeric [Pain] -Is Patient Pain Free? Yes Musculoskeletal: No Muscle Wasting Neurological: Cranial nerves II-XII grossly intact Psych/Mental Status: Normal Affect Debridement Note Post-Debridement Measurements/Treatment WC - Nurse 2 - General Ulcer CM Notes Start: 02/18/19 10:23 Freq: Status: Active Protocol: Activity Type Activity Date Activity User E-Sign Co-Sign Detail Recorded Client Recorded Date Recorded By Document 02/18/19 10:53 MW [id number] 02/18/19 10:58 MW Document 02/25/19 11:02 MW [id number] 02/25/19 11:11 MW Document 03/04/19 10:15 MW [id number] 03/04/19 10:17 MW Document 03/11/19 10:13 MW [id number] 03/11/19 10:17 MW 02/18/19 02/25/19 03/04/19 10:53 11:02 10:15 Wound Center Nurse 2 1. L LATERAL LOWER EXTREMITY -Time 10:55 11:08 10:17 -Correct Patient Yes Yes Yes -Correct Side, Site, Position Yes Yes Yes -Correct Procedure Yes Yes Yes -Procedure Performed Yes Yes Yes -Type of Procedure Debridement Debridement Debridement -Clinical Debridement Subcutaneous Subcutaneous Subcutaneous -Post Debridement Size (cm) - Length 2.0 1.7 1.5 -Post Debridement Size (cm) - Width 0.5 0.4 0.3 -Post Debridement Size (cm) - Depth 0.1 0.1 0.1 -Total Square Cm 1.00 0.68 0.45 -Wound/Ulcer Outcome Not Healed Not Healed Not Healed -Ulcer Cleansing Rinsed/ Rinsed/ Rinsed/ Irrigated with Irrigated with Irrigated with Saline Saline Saline -Foul Odor after Cleansing No No No -Bioengineered Tissue Yes Yes No -Type of bioengineered Tissue EPIFIX EPIFIX -Expiration Date 06/16/23 05/16/23 -Product Lot Number [id number] -Percent Used 100 100 -Saline Lot Number [id number] -Bleeding Controlled with Pressure Pressure Pressure -Offloading No No No -Treatment Response Procedure Procedure Procedure Tolerated Well Tolerated Well Tolerated Well Pain Scale: 0-10 Numeric Is Patient Pain Free? Yes Yes Yes 03/11/19 10:13 Wound Center Nurse 2 1. L LATERAL LOWER EXTREMITY -Time 10:13 -Correct Patient Yes -Correct Side, Site, Position Yes -Correct Procedure Yes -Procedure Performed Yes -Type of Procedure -Clinical Debridement -Post Debridement Size (cm) - Length 1.5 -Post Debridement Size (cm) - Width 0.2 -Post Debridement Size (cm) - Depth 0.1 -Total Square Cm 0.30 -Wound/Ulcer Outcome Not Healed -Ulcer Cleansing Rinsed/ Irrigated with Saline -Foul Odor after Cleansing No -Bioengineered Tissue No -Type of bioengineered Tissue -Expiration Date -Product Lot Number -Percent Used -Saline Lot Number -Bleeding Controlled with Pressure -Offloading No -Treatment Response Procedure Tolerated Well Pain Scale: 0-10 Numeric Is Patient Pain Free? Yes Wound debrided: Left Leg Type of Debridement: Excisional debridement Anesthesia Used: 4% Lidocaine Solution Depth: Down to and including healthy tissue, in the subcutaneous layer Percentage of wound debrided: 100 Instrument Used: - - 1mm Tissue Removed: Slough and devitalized tissue Severity: Fat Layer Exposed Amount of bleeding with debridement: Mild Bleeding Controlled with: Pressure Patient tolerated procedure well Assessment/Plan Active Problems PAD (peripheral artery disease) (Chronic) Ulcer of left lower extremity with fat layer exposed (Chronic) Venous insufficiency (Chronic) Assessment: Left lower extremity ulcer post I and D with delayed healing. Peripheral arterial disease. Delayed healing. Lower extremity with venous insufficiency. Arterial calcification Plan: Stable. Debridement done as docuemented above. Procedure was well tolerated. Continue Pomogram with hydrofera blue over top. Follow up on Friday for a nurse visit. Will continue 3M wrap for edema management. His questions were answered and he was advised to call with any questions or concerns. Follow up with me in 1 week. This note was generated with [employer] [employer]) dictation software. It may contain incorrect words, spelling, and punctuation that were not noted in checking the note before signing.
[2019-03-15 13:24] VITALS: BP 118/64; PULSE 92; RESP 16; TEMP 36.4; BMI 42.2
== END 2019-03-15 23:59 ==
LOC: WC 13:00
PROVIDERS: Family Provider Family Medicine; PCP Family Medicine; Referring Provider Internal Medicine; Visit Provider Internal Medicine
DX: I73.9 Peripheral vascular disease, unspecified (principal); I87.2 Venous insufficiency (chronic) (peripheral); L97.822 Non-pressure chronic ulcer of other part of left lower leg with fat layer exposed; Z79.01 Long term (current) use of anticoagulants; I48.2 Chronic atrial fibrillation
CPT/HCPCS: 11042; 15271; 29581; 99212; Q4186; G0463

== ENCOUNTER 2019-03-25 10:15 | Outpatient (RCR) | payer OTHER, SELFPAY ==
[2019-03-16 00:34] VITALS: BP 118/64; PULSE 92; RESP 16; TEMP 36.4
[2019-03-18 11:45] VITALS: BP 111/83; PULSE 97; RESP 16; TEMP 36.1; BMI 42.2
--- NOTE | 2019-03-18 13:08 | PN.PCM_ITS ---
(1) Ulcer of left lower extremity with fat layer exposed Status: Chronic Current Visit: Yes Code(s): L97.922 - Non-pressure chronic ulcer of unspecified part of left lower leg with fat layer exposed (2) PAD (peripheral artery disease) Status: Chronic Current Visit: Yes Code(s): I73.9 - Peripheral vascular disease, unspecified (3) Venous insufficiency Status: Chronic Current Visit: Yes Code(s): I87.2 - Venous insufficiency (chronic) (peripheral) Type of Wound Date of Service: 03/18/19 Chief Complaint: Left lower extremity ulcer - Delayed healing. History of Wound: Mr. Chauhan is a 62 year old with PMH as stated below who presented to the wound center due to delayed healing of his left lower extremity ulcer which occurred after he developed a large hematoma after a fall and subsequent fibular fracture. He underwent incision and drainge of the hematoma with subsequent wound vac treatment for 7 days after surgery. After discontinuing the wound vac, he had applied a collagen dressing to the wound. He denies chills, fever, nausea, vomitting or loss of appetite. Progress of Wound: Improving. No new concerns at this time. - Physical Exam Vital Signs Temp Pulse Resp BP 96.9 F L 97 16 111/83 H 03/18/19 11:45 03/18/19 11:45 03/18/19 11:45 03/18/19 11:45 General: Alert, Oriented x3, Cooperative, No apparent distress HEENT: Atraumatic, Normocephalic Oral: Moist Mucosa Neck: Supple Lungs: Normal air movement Extremities: No cyanosis, Edema Skin: Ulcer/ Wound Wound Measurements and Assessment WC - Nurse 1 - General Ulcer Measurement Start: 03/18/19 11:45 Freq: Status: Active Protocol: Activity Type Activity Date Activity User E-Sign Co-Sign Detail Recorded Client Recorded Date Recorded By Document 03/18/19 11:45 [facility] [id number] 03/18/19 11:51 [facility] 03/18/19 11:45 Wound Center Nurse 1 [Ulcer Assessment] 1. L LATERAL LOWER EXTREMITY -Combined with other wound No -Current Size (cm) - Length 0.1 -Current Size (cm) - Width 0.1 -Current Size (cm) - Depth 0.1 -Total Square Cm 0.01 -Epithelialization Large 67-100% -Tunneling No -Undermining/Tunneling No -Circular Undermining No -Exudate Amt Small -Exudate Type Serous -Wound Margin Flat & Intact -Granulation Amt Small (1-33%) -Granulation Quality [place] -Slough/Fibrin Yes -Necrosis Amt Small (1-33%) -Necrotic Tissue Type Adherent Slough -Texture (Kirstie-wound Skin Appearance) Assessed, Scarring -Moisture (Kirstie-wound Skin Appearance Assessed,Dry/ ) Scaly -Color (Kirstie-wound Skin Appearance) Assessed, Hemosiderin Staining -Temperature (Kirstie-wound Skin No Abnormality Appearance) (Pt Warm) -Tenderness on Palpation (Kirstie-wound No Skin Appearance) -Ulcer Cleansing soap and water -Foul Odor after Cleansing No -Anesthetic Used 5% Lidocaine Gel [Edema Assessment] -Lower Limb Edema Present Yes -Left Calf (cm) 36 -Left Ankle (cm) 22.3 WC - Nurse 2 - General Ulcer CM Notes Start: 03/18/19 11:45 Freq: Status: Active Protocol: Activity Type Activity Date Activity User E-Sign Co-Sign Detail Recorded Client Recorded Date Recorded By Document 03/18/19 12:00 MW [id number] 03/18/19 12:04 MW 03/18/19 12:00 Wound Center Nurse 2 [Procedure/Treatment] 1. L LATERAL LOWER EXTREMITY -Time 12:00 -Correct Patient Yes -Correct Side, Site, Position Yes -Correct Procedure Yes -Procedure Performed Yes -Type of Procedure Debridement -Clinical Debridement Subcutaneous -Post Debridement Size (cm) - Length 0.3 -Post Debridement Size (cm) - Width 0.1 -Post Debridement Size (cm) - Depth 0.1 -Total Square Cm 0.03 -Wound/Ulcer Outcome Not Healed -Ulcer Cleansing Rinsed/ Irrigated with Saline -Foul Odor after Cleansing No -Bioengineered Tissue No -Bleeding Controlled with Pressure -Offloading No -Treatment Response Procedure Tolerated Well [See Physician Procedure note for Specifics] Pain Scale: 0-10 Numeric [Pain] -Is Patient Pain Free? Yes Musculoskeletal: No Muscle Wasting Neurological: Cranial nerves II-XII grossly intact Psych/Mental Status: Normal Affect Debridement Note Post-Debridement Measurements/Treatment WC - Nurse 2 - General Ulcer CM Notes Start: 03/18/19 11:45 Freq: Status: Active Protocol: Activity Type Activity Date Activity User E-Sign Co-Sign Detail Recorded Client Recorded Date Recorded By Document 03/18/19 12:00 MW [id number] 03/18/19 12:04 MW 03/18/19 12:00 Wound Center Nurse 2 1. L LATERAL LOWER EXTREMITY -Time 12:00 -Correct Patient Yes -Correct Side, Site, Position Yes -Correct Procedure Yes -Procedure Performed Yes -Type of Procedure Debridement -Clinical Debridement Subcutaneous -Post Debridement Size (cm) - Length 0.3 -Post Debridement Size (cm) - Width 0.1 -Post Debridement Size (cm) - Depth 0.1 -Total Square Cm 0.03 -Wound/Ulcer Outcome Not Healed -Ulcer Cleansing Rinsed/ Irrigated with Saline -Foul Odor after Cleansing No -Bioengineered Tissue No -Bleeding Controlled with Pressure -Offloading No -Treatment Response Procedure Tolerated Well Pain Scale: 0-10 Numeric Is Patient Pain Free? Yes Wound debrided: Left Leg Type of Debridement: Excisional debridement Anesthesia Used: 4% Lidocaine Solution Depth: Down to and including healthy tissue, in the subcutaneous layer Percentage of wound debrided: 100 Instrument Used: - Tissue Removed: Slough and devitalized tissue Severity: Fat Layer Exposed Amount of bleeding with debridement: Mild Bleeding Controlled with: Pressure Patient tolerated procedure well Assessment/Plan Active Problems PAD (peripheral artery disease) (Chronic) Ulcer of left lower extremity with fat layer exposed (Chronic) Venous insufficiency (Chronic) Assessment: Left lower extremity ulcer post I and D with delayed healing. Peripheral arterial disease. Delayed healing. Lower extremity with venous insufficiency. Arterial calcification Plan: Improving. Debridement done as docuemented above. Procedure was well tolerated. Continue Pomogram with hydrofera blue over top. Follow up on Friday for a nurse visit. Will continue 3M wrap for edema management. His questions were answered and he was advised to call with any questions or concerns. Follow up with me in 1 week. This note was generated with [employer] dictation software. It may contain incorrect words, spelling, and punctuation that were not noted in checking the note before signing.
[2019-03-22 14:45] VITALS: BP 112/73; PULSE 88; RESP 16; BMI 42.2
[2019-03-25 10:20] VITALS: BP 121/74; PULSE 81; RESP 18; TEMP 35.5; BMI 42.2
--- NOTE | 2019-03-25 10:56 | PN.PCM_ITS ---
(1) Ulcer of left lower extremity with fat layer exposed Status: Chronic Current Visit: Yes Code(s): L97.922 - Non-pressure chronic ulcer of unspecified part of left lower leg with fat layer exposed (2) PAD (peripheral artery disease) Status: Chronic Current Visit: Yes Code(s): I73.9 - Peripheral vascular disease, unspecified (3) Venous insufficiency Status: Chronic Current Visit: Yes Code(s): I87.2 - Venous insufficiency (chronic) (peripheral) Type of Wound Date of Service: 03/25/19 Chief Complaint: Left lower extremity ulcer - Delayed healing. History of Wound: Mr. Chauhan is a 62 year old with PMH as stated below who presented to the wound center due to delayed healing of his left lower extremity ulcer which occurred after he developed a large hematoma after a fall and subsequent fibular fracture. He underwent incision and drainge of the hematoma with subsequent wound vac treatment for 7 days after surgery. After discontinuing the wound vac, he had applied a collagen dressing to the wound. He denies chills, fever, nausea, vomitting or loss of appetite. Progress of Wound: Healed. No new concerns at this time. - Physical Exam Vital Signs Temp Pulse Resp BP 96 F L 81 18 121/74 H 03/25/19 10:20 03/25/19 10:20 03/25/19 10:20 03/25/19 10:20 General: Alert, Oriented x3, Cooperative, No apparent distress HEENT: Atraumatic, Normocephalic Oral: Moist Mucosa Neck: Supple Lungs: Normal air movement Abdomen: Non Tender, Obese Extremities: No cyanosis, Edema Wound Measurements and Assessment WC - Nurse 1 - General Ulcer Measurement Start: 03/18/19 11:45 Freq: Status: Active Protocol: Activity Type Activity Date Activity User E-Sign Co-Sign Detail Recorded Client Recorded Date Recorded By Document 03/22/19 14:45 BMF [id number] 03/22/19 14:46 BMF Document 03/25/19 10:20 DL [id number] 03/25/19 10:23 DL 03/22/19 03/25/19 14:45 10:20 [Ulcer Assessment] 1. L LATERAL LOWER EXTREMITY -Current Size (cm) - Length 0.1 -Current Size (cm) - Width 0.1 -Current Size (cm) - Depth 0.1 -Total Square Cm 0.01 -Photo Taken No -Exudate Amt None Present -Wound Margin Flat & Intact -Granulation Amt Large (67-100%) -Granulation Quality [place] -Necrosis Amt Small (1-33%) -Necrotic Tissue Type Adherent Slough -Structure Exposed N/A -Texture (Kirstie-wound Skin Appearance) Scarring -Moisture (Kirstie-wound Skin Appearance No Abnormality ) -Color (Kirstie-wound Skin Appearance) No Abnormality, Rubor -Temperature (Kirstie-wound Skin No Abnormality Appearance) (Pt Warm) -Tenderness on Palpation (Kirstie-wound No Skin Appearance) -Ulcer Cleansing Wound Cleanser -Foul Odor after Cleansing No -Anesthetic Used 5% Lidocaine Gel Wound Center Nurse 1 [Edema Assessment] -Lower Limb Edema Present Yes -Left Calf (cm) 35 34.5 -Left Ankle (cm) 22.3 21.8 WC - Nurse 2 - General Ulcer CM Notes Start: 03/18/19 11:45 Freq: Status: Active Protocol: Activity Type Activity Date Activity User E-Sign Co-Sign Detail Recorded Client Recorded Date Recorded By Document 03/25/19 10:44 MW [id number] 03/25/19 10:49 MW 03/25/19 10:44 Wound Center Nurse 2 [Procedure/Treatment] 1. L LATERAL LOWER EXTREMITY -Time 10:44 -Correct Patient Yes -Correct Side, Site, Position Yes -Correct Procedure Yes -Procedure Performed No -Clinical Debridement Selective -Post Debridement Size (cm) - Length 0 -Post Debridement Size (cm) - Width 0 -Post Debridement Size (cm) - Depth 0 -Total Square Cm 0 -Wound/Ulcer Outcome Healed- Epithelialized [See Physician Procedure note for Specifics] Pain Scale: 0-10 Numeric [Pain] -Is Patient Pain Free? Yes Musculoskeletal: No Muscle Wasting Neurological: Cranial nerves II-XII grossly intact Psych/Mental Status: Normal Affect Debridement Note Post-Debridement Measurements/Treatment - Nurse 2 - General Ulcer CM Notes Start: 03/18/19 11:45 Freq: Status: Active Protocol: Activity Type Activity Date Activity User E-Sign Co-Sign Detail Recorded Client Recorded Date Recorded By Document 03/18/19 12:00 MW [id number] 03/18/19 12:04 MW Document 03/25/19 10:44 MW [id number] 03/25/19 10:49 MW 03/18/19 03/25/19 12:00 10:44 Wound Center Nurse 2 1. L LATERAL LOWER EXTREMITY -Time 12:00 10:44 -Correct Patient Yes Yes -Correct Side, Site, Position Yes Yes -Correct Procedure Yes Yes -Procedure Performed Yes No -Type of Procedure Debridement -Clinical Debridement Subcutaneous Selective -Post Debridement Size (cm) - Length 0.3 0 -Post Debridement Size (cm) - Width 0.1 0 -Post Debridement Size (cm) - Depth 0.1 0 -Total Square Cm 0.03 0 -Wound/Ulcer Outcome Not Healed Healed- Epithelialized -Ulcer Cleansing Rinsed/ Irrigated with Saline -Foul Odor after Cleansing No -Bioengineered Tissue No -Bleeding Controlled with Pressure -Offloading No -Treatment Response Procedure Tolerated Well Pain Scale: 0-10 Numeric Is Patient Pain Free? Yes Yes No debridement was completed today Assessment/Plan Active Problems PAD (peripheral artery disease) (Chronic) Ulcer of left lower extremity with fat layer exposed (Chronic) Venous insufficiency (Chronic) Assessment: Left lower extremity ulcer post I and D with delayed healing. Peripheral arterial disease. Delayed healing. Lower extremity with venous insufficiency. Arterial calcification Plan: Healed. No debridement completed today. Adaptic over top x 2 weeks. Strongly encouraged to use his compression stockings, elevate his lower extremities and exercise as tolerated. Follow up with PCP. His questions were answered and he was advised to call with any questions or concerns. Discharged from the wound clinic. This note was generated with [employer] software. It may contain incorrect words, spelling, and punctuation that were not noted in checking the note before signing.
[2019-03-25 10:59] VITALS: BMI 42.2
== END 2019-04-15 23:59 ==
LOC: WC 10:15
PROVIDERS: Family Provider Family Medicine; PCP Family Medicine; Referring Provider Internal Medicine; Visit Provider Internal Medicine
DX: I73.9 Peripheral vascular disease, unspecified (principal); I87.2 Venous insufficiency (chronic) (peripheral); I48.20 Chronic atrial fibrillation, unspecified; Z79.01 Long term (current) use of anticoagulants; L97.822 Non-pressure chronic ulcer of other part of left lower leg with fat layer exposed
CPT/HCPCS: 11042; 29581; 99212; 99213; G0463

== ENCOUNTER → 2019-08-02 08:02 | Outpatient (CLI) | payer MEDICARE, SELFPAY ==
[2019-08-02 09:30] LABS: PTHIN 121.5 pg/mL (18.4-80.1)
[2019-08-02 09:31] LABS: ALB/GLOB Ratio 0.9 RATIO (0.9-2.4); AST(SGOT) 25 U/L (15-37); Alanine Aminotransfer ALT/SGPT 26 U/L (16-61); Albumin, Serum 3.4 g/dL (3.2-5.0); Alkaline Phosphatase 117 U/L (45-117); Anion Gap 8 (5-15); BUN 10 mg/dL (7-18); BUN/Creat Ratio 7.4 RATIO (10-20); Calcium,Total 8.8 mg/dL (8.5-10.1); Chloride 98 mmol/L (98-107); Cholesterol 106 mg/dL (200); Creatinine, Serum 1.35 mg/dL (0.70-1.30); EST Glomerular Filtration Rate 56 mL/min (>60); Est Glom Filt Rate - Afr Amer 68 mL/min (>60); Globulin 3.9 g/dL (2.2-4.2); Glucose 91 mg/dL (74-106); High Density Lipoprotein 68 mg/dL; Potassium 3.4 mmol/L (3.5-5.1); Protein, Total 7.3 g/dL (6.4-8.2); Sodium Level 137 mmol/L (136-145); Thyroid Stim Hormone (TSH) 2.29 uIU/mL (0.358-3.74); Triglycerides 55 mg/dL; Very Low Density Lipoprotein 11 mg/dL (5-40); Vitamin D,25 Hydroxy 67.8 ng/mL (29.95-100.01)
== END ==
PROVIDERS: PCP Family Medicine; Referring Provider Internal Medicine Endocrinology, Diabetes & Metabolism; Visit Provider Internal Medicine Endocrinology, Diabetes & Metabolism
DX: E89.0 Postprocedural hypothyroidism (principal); E78.2 Mixed hyperlipidemia; E21.1 Secondary hyperparathyroidism, not elsewhere classified; E55.9 Vitamin D deficiency, unspecified
CPT/HCPCS: 36415; 80053; 80061; 82306; 83970; 84443

== ENCOUNTER → 2019-08-06 07:38 | Outpatient (CLI) | payer MEDICARE, SELFPAY ==
[2019-08-06 08:49] LABS: Anion Gap 4 (5-15); BUN 9 mg/dL (7-18); BUN/Creat Ratio 6.5 RATIO (10-20); Calcium,Total 9.5 mg/dL (8.5-10.1); Chloride 99 mmol/L (98-107); Creatinine, Serum 1.39 mg/dL (0.70-1.30); EST Glomerular Filtration Rate 55 mL/min (>60); Est Glom Filt Rate - Afr Amer 66 mL/min (>60); Glucose 84 mg/dL (74-106); Magnesium 1.8 mg/dL (1.6-2.6); Potassium 3.9 mmol/L (3.5-5.1); Sodium Level 135 mmol/L (136-145)
== END ==
LOC: LAB.FUTURE 07:39 → LAB 13:48
PROVIDERS: PCP Family Medicine; Referring Provider Internal Medicine Endocrinology, Diabetes & Metabolism; Visit Provider Internal Medicine Endocrinology, Diabetes & Metabolism
DX: E89.0 Postprocedural hypothyroidism (principal); E83.42 Hypomagnesemia
CPT/HCPCS: 36415; 80048; 83735

== ENCOUNTER → 2019-11-15 07:29 | Outpatient (CLI) | payer MEDICARE, SELFPAY ==
[2019-11-15 09:09] LABS: ALB/GLOB Ratio 0.8 RATIO (0.9-2.4); AST(SGOT) 22 U/L (15-37); Alanine Aminotransfer ALT/SGPT 26 U/L (16-61); Albumin, Serum 3.3 g/dL (3.2-5.0); Alkaline Phosphatase 135 U/L (45-117); Anion Gap 10 (5-15); BUN 8 mg/dL (7-18); BUN/Creat Ratio 6.2 RATIO (10-20); Calcium,Total 9.2 mg/dL (8.5-10.1); Chloride 95 mmol/L (98-107); Cholesterol 94 mg/dL (200); EST Glomerular Filtration Rate 59 mL/min (>60); Est Glom Filt Rate - Afr Amer 71 mL/min (>60); Glucose 89 mg/dL (74-106); High Density Lipoprotein 59 mg/dL; Potassium 3.4 mmol/L (3.5-5.1); Protein, Total 7.3 g/dL (6.4-8.2); Sodium Level 133 mmol/L (136-145); Triglycerides 63 mg/dL; Very Low Density Lipoprotein 13 mg/dL (5-40)
[2019-11-15 11:07] LABS: PTHIN 114.9 pg/mL (18.4-80.1)
== END ==
PROVIDERS: PCP Family Medicine; Referring Provider Internal Medicine Endocrinology, Diabetes & Metabolism; Visit Provider Internal Medicine Endocrinology, Diabetes & Metabolism
DX: E89.0 Postprocedural hypothyroidism (principal); E78.2 Mixed hyperlipidemia; E21.1 Secondary hyperparathyroidism, not elsewhere classified
CPT/HCPCS: 36415; 80053; 80061; 83735; 83970

== ENCOUNTER → 2019-11-19 07:54 | Outpatient (CLI) | payer MEDICARE, SELFPAY ==
[2019-11-19 09:43] LABS: Anion Gap 9 (5-15); BUN 8 mg/dL (7-18); BUN/Creat Ratio 6.2 RATIO (10-20); Calcium,Total 9.1 mg/dL (8.5-10.1); Chloride 95 mmol/L (98-107); Creatinine, Serum 1.29 mg/dL (0.70-1.30); EST Glomerular Filtration Rate 59 mL/min (>60); Est Glom Filt Rate - Afr Amer 72 mL/min (>60); Glucose 79 mg/dL (74-106); Magnesium 2.2 mg/dL (1.6-2.6); Potassium 3.8 mmol/L (3.5-5.1); Sodium Level 133 mmol/L (136-145)
== END ==
PROVIDERS: PCP Family Medicine; Referring Provider Internal Medicine Endocrinology, Diabetes & Metabolism; Visit Provider Internal Medicine Endocrinology, Diabetes & Metabolism
DX: E89.0 Postprocedural hypothyroidism (principal); E83.42 Hypomagnesemia
CPT/HCPCS: 36415; 80048; 83735

== ENCOUNTER → 2019-12-28 07:34 | Outpatient (CLI) | payer MEDICARE, SELFPAY ==
[2019-12-28 08:34] LABS: ALB/GLOB Ratio 0.8 RATIO (0.9-2.4); AST(SGOT) 24 U/L (15-37); Alanine Aminotransfer ALT/SGPT 20 U/L (16-61); Albumin, Serum 3.2 g/dL (3.2-5.0); Alkaline Phosphatase 134 U/L (45-117); Anion Gap 7 (5-15); BUN 9 mg/dL (7-18); Calcium,Total 9.1 mg/dL (8.5-10.1); Chloride 98 mmol/L (98-107); Creatinine, Serum 1.29 mg/dL (0.70-1.30); EST Glomerular Filtration Rate 59 mL/min (>60); Est Glom Filt Rate - Afr Amer 72 mL/min (>60); Globulin 4.1 g/dL (2.2-4.2); Glucose 90 mg/dL (74-106); Magnesium 2.1 mg/dL (1.6-2.6); Potassium 3.8 mmol/L (3.5-5.1); Protein, Total 7.3 g/dL (6.4-8.2); Sodium Level 134 mmol/L (136-145); Thyroid Stim Hormone (TSH) 0.19 uIU/mL (0.358-3.74)
[2019-12-28 09:04] LABS: PTHIN 69.3 pg/mL (18.4-80.1); Vitamin D,25 Hydroxy 86.5 ng/mL
[2019-12-30 14:08] LABS: Alkaline Phosphatase, Serum 126 IU/L (39-117); Bone Fraction 11 % (12-68); Liver Fraction 89 % (13-88)
[2019-12-31 01:06] LABS: Intestinal Fraction 0 % (0-18)
== END ==
PROVIDERS: PCP Family Medicine
DX: E89.0 Postprocedural hypothyroidism (principal); E21.1 Secondary hyperparathyroidism, not elsewhere classified; E55.9 Vitamin D deficiency, unspecified; M85.89 Other specified disorders of bone density and structure, multiple sites
CPT/HCPCS: 36415; 80053; 82306; 83735; 83970; 84075; 84080; 84443

== ENCOUNTER → 2020-01-08 10:11 | Outpatient (CLI) | payer MEDICARE, SELFPAY ==
--- NOTE | 2020-01-08 10:12 | US_ITS ---
HISTORY: abn labs EXAMINATION: US gallbladder and right upper quadrant abdomen TECHNIQUE: Marcum scale and color doppler imaging was performed of the gallbladder and right upper quadrant abdomen COMPARISON: None FINDINGS: The gallbladder is adequately distended and shows no internal echoes, wall thickening, or pericholecystic edema. The common bile duct measures 0.5 cm in diameter which is normal. No intrahepatic biliary dilatation. Visualized portions of the liver are unremarkable. Incomplete visualization of the pancreas which is echogenic compatible with fatty change. The right kidney is visualized and is normal in size measuring 11.7 cm in length. The right kidney shows several small central echogenic foci suspicious for stones or possibly vascular calcifications. No hydronephrosis. No free fluid. US/Abdomen Limited IMPRESSION: 1. Normal gallbladder ultrasound. No biliary dilatation or acute disease identified. 2. The right kidney shows several small echogenic foci suspicious for small stones or vascular calcifications. No hydronephrosis. 3. Probable fatty atrophy of the pancreas. at 0811 Reported and signed by: Mars Arevalo MD Electronically Signed: Mars Arevalo, at 8:09 EDT Tel , Service support ,
== END ==
PROVIDERS: PCP Family Medicine; Referring Provider Internal Medicine Endocrinology, Diabetes & Metabolism; Visit Provider Internal Medicine Endocrinology, Diabetes & Metabolism
DX: R74.8 Abnormal levels of other serum enzymes (principal)
CPT/HCPCS: 76705

== ENCOUNTER → 2020-02-28 07:49 | Outpatient (CLI) | payer MEDICARE, SELFPAY ==
[2020-02-28 09:13] LABS: ALB/GLOB Ratio 0.8 RATIO (0.9-2.4); AST(SGOT) 22 U/L (15-37); Alanine Aminotransfer ALT/SGPT 24 U/L (16-61); Albumin, Serum 3.3 g/dL (3.2-5.0); Alkaline Phosphatase 124 U/L (45-117); Anion Gap 6 (5-15); BUN 11 mg/dL (7-18); BUN/Creat Ratio 7.7 RATIO (10-20); Calcium,Total 8.9 mg/dL (8.5-10.1); Chloride 101 mmol/L (98-107); Creatinine, Serum 1.42 mg/dL (0.70-1.30); EST Glomerular Filtration Rate 53 mL/min (>60); Est Glom Filt Rate - Afr Amer 64 mL/min (>60); Globulin 3.9 g/dL (2.2-4.2); Glucose 82 mg/dL (74-106); Potassium 3.7 mmol/L (3.5-5.1); Protein, Total 7.2 g/dL (6.4-8.2); Sodium Level 136 mmol/L (136-145); Thyroid Stim Hormone (TSH) 0.62 uIU/mL (0.358-3.74)
== END ==
PROVIDERS: PCP Family Medicine; Referring Provider Internal Medicine Endocrinology, Diabetes & Metabolism; Visit Provider Internal Medicine Endocrinology, Diabetes & Metabolism
DX: E89.0 Postprocedural hypothyroidism (principal); N20.0 Calculus of kidney
CPT/HCPCS: 36415; 80053; 84443

== ENCOUNTER → 2020-03-01 11:12 | Outpatient (CLI) | payer MEDICARE, SELFPAY | PROVIDERS: PCP Family Medicine | DX: N20.0 Calculus of kidney (principal); E89.0 Postprocedural hypothyroidism | CPT/HCPCS: 81050 ==

== ENCOUNTER → 2020-07-18 08:40 | Outpatient (CLI) | payer MEDICARE, SELFPAY ==
[2020-07-18 10:06] LABS: ALB/GLOB Ratio 0.9 RATIO (0.9-2.4); AST(SGOT) 18 U/L (15-37); Alanine Aminotransfer ALT/SGPT 19 U/L (16-61); Albumin, Serum 3.4 g/dL (3.2-5.0); Alkaline Phosphatase 139 U/L (45-117); Anion Gap 4 (5-15); BUN 10 mg/dL (7-18); BUN/Creat Ratio 6.8 RATIO (10-20); Calcium,Total 9.3 mg/dL (8.5-10.1); Chloride 101 mmol/L (98-107); Creatinine, Serum 1.47 mg/dL (0.70-1.30); EST Glomerular Filtration Rate 51 mL/min (>60); Est Glom Filt Rate - Afr Amer 62 mL/min (>60); Globulin 3.8 g/dL (2.2-4.2); Glucose 88 mg/dL (74-106); Potassium 3.8 mmol/L (3.5-5.1); Protein, Total 7.2 g/dL (6.4-8.2); Sodium Level 135 mmol/L (136-145); Thyroid Stim Hormone (TSH) 0.21 uIU/mL (0.358-3.74)
== END ==
PROVIDERS: PCP Family Medicine; Referring Provider Internal Medicine Endocrinology, Diabetes & Metabolism; Visit Provider Internal Medicine Endocrinology, Diabetes & Metabolism
DX: E89.0 Postprocedural hypothyroidism (principal)
CPT/HCPCS: 36415; 80053; 84443

== ENCOUNTER → 2020-11-08 08:23 | Outpatient (CLI) | payer MEDICARE, SELFPAY ==
[2020-11-08 09:53] LABS: PTHIN 83.8 pg/mL (18.4-80.1)
[2020-11-08 10:13] LABS: ALB/GLOB Ratio 0.8 RATIO (0.9-2.4); AST(SGOT) 21 U/L (15-37); Alanine Aminotransfer ALT/SGPT 21 U/L (16-61); Albumin, Serum 3.2 g/dL (3.2-5.0); Alkaline Phosphatase 102 U/L (45-117); Anion Gap 7 (5-15); BUN 12 mg/dL (7-18); BUN/Creat Ratio 9.8 RATIO (10-20); Chloride 98 mmol/L (98-107); Creatinine, Serum 1.23 mg/dL (0.70-1.30); EST Glomerular Filtration Rate 63 mL/min (>60); Est Glom Filt Rate - Afr Amer 76 mL/min (>60); Globulin 3.8 g/dL (2.2-4.2); Glucose 95 mg/dL (74-106); Magnesium 1.6 mg/dL (1.6-2.6); Potassium 3.6 mmol/L (3.5-5.1); Sodium Level 136 mmol/L (136-145)
[2020-11-09 12:36] LABS: Vitamin D,25 Hydroxy 76.2 ng/mL
== END ==
PROVIDERS: PCP Family Medicine; Visit Provider Internal Medicine Endocrinology, Diabetes & Metabolism
DX: E21.1 Secondary hyperparathyroidism, not elsewhere classified (principal); E89.0 Postprocedural hypothyroidism; E55.9 Vitamin D deficiency, unspecified
CPT/HCPCS: 36415; 80053; 82306; 83735; 83970; 84443

== ENCOUNTER → 2021-02-14 11:06 | Outpatient (CLI) | payer MEDICARE, SELFPAY ==
[2021-02-14 12:03] LABS: Thyroid Stim Hormone (TSH) 0.36 uIU/mL (0.358-3.74)
== END ==
PROVIDERS: PCP Family Medicine; Referring Provider Internal Medicine Endocrinology, Diabetes & Metabolism; Visit Provider Internal Medicine Endocrinology, Diabetes & Metabolism
DX: E89.0 Postprocedural hypothyroidism (principal)
CPT/HCPCS: 36415; 84443

== ENCOUNTER 2021-02-20 13:00 | Outpatient (RCR) | payer MEDICARE, SELFPAY ==
--- NOTE | 2020-12-25 13:59 | HP.PTEVAL_ITS ---
Patient's Visit Information YASMINE THOMAS is a 65 year old M referred to Physical Therapy by Dr. Josh Bethea MD with a diagnosis of weakness of B hips (needs help with walking, general deconditioning). Date of Evaluation: 12/25/20 Physical Therapist: KAMALA Cuello - Visit Plan Frequency: 2x /Week Duration: 2 Months Plan: 2X/ week for 6-8 weeks for LE Strength, progressive walking with good form and stride, endurance, sit to stand transfers, functional activities with HEP. HEP: bridges - Subjective Pt reports that he has severe weakness in his hips and legs and trouble walking. He just got body weakness from laying around the house. He lives in a one story home and not steps into the house. He has one step into the kitchen and he grabs a hold of the door. He is a furniture/wall walker and this has gotten worse and worse. He has a walker and only uses it in the evenings when he is severe. He uses a cane during the day. He reports that he does not struggle to get out of the chair at home. He lays at home in bed a lot and watches TV. He still drives. He gets his own groceries and makes it inside with his cane and uses the shopping cart as a walker. He has fallen at least once at home in the last 6 months and was able to get up on his own and pulled himself up onto the chair but it was hard for him to get up. He rates his balance as 2/10 (really bad) without a cane. He can stand still without a cane. He reports that he is getting sporatic sharp buttock pain when he walks short distances. Tylenol does not help him. - Objective Pt was pushed back to the dept in a wheelchair due to weakness. Gait: Walks 70 feet with a front wheeled walker with flexed trunk and good step length. He was a little SOB. Pt struggles to do a heel slide B. LE MMT: R hip flex 4/5 and L hip flex 4-/5, R knee ext 4/5 and L 4/5, B knee flex 4+/5, L hip abd 3-/5, and R hip abd 3-/5, Bridge 1/2 normal ROM X 10. SLR... pt struggles to do B. Pt is able to roll I on the mat table and go from sit to supine and vice versa Lynsey. Sit to stand: uses hands to get out of a chair. Pt transfers from the wheelchair to the mat table using his UE's and flexed trunk to furniture walk to the mat table. - Goals Goal 1:: I HEP Goal Time Frame: 6-8 Weeks Goal 2:: Increase B LE strength by 1/2 muscle grade( at the time of the eval: LE MMT: R hip flex 4/5 and L hip flex 4-/5, R knee ext 4/5 and L 4/5, B knee flex 4+/5, L hip abd 3-/5, and R hip abd 3-/5, Bridge 1/2 normal ROM X 10) Goal Time Frame: 6-8 Weeks Goal 3:: Be able to walk 200 feet with a rolling walker or least restrictice device with good stride length and upright posture with SBA Goal Time Frame: 6-8 Weeks Goal 4:: Be able to sit to stand X 10 without struggling and using 1 UE to stand Goal Time Frame: 6-8 Weeks Goal 5:: Be able to transfer from a chair to a mat table without having to furniture walk Goal Time Frame: 6-8 Weeks - Rehabilitation Potential Rehabilitation Potential: Good - Anticipated Interventions Patient/Client Instruction: Educate patient on: Condition, Plan of Care For the Purpose of:: To improve muscle performance and motor function, To improve ability to perform ADL's, To increase tolerance to activity/condition/position, To improve performance and independence with ADL's, To improve ability of physical actions for home/community/work/leisure, To improve gait and locomotor functions, To improve endurance, To improve balance, To improve safety with gait, To improve safety Therapeutic Exercise to Include: Strength training, Endurance training, Balance training, Postural training, Gait and locomotor training, Neuromotor development, Active ROM, Dynamic Lumbar Stabilization For the Purpose of:: To improve nutrient delivery to tissue, To improve muscle performance and motor function, To improve ability to perform ADL's, To increase tolerance to activity/condition/position, To improve performance and independence with ADL's, To improve ability of physical actions for h ome/community/work/leisure, To improve gait and locomotor functions, To improve health of tissue, To increase flexibility/ROM, To improve endurance, To improve balance, To improve safety with gait Functional Training to Include: Gait training For the Purpose of:: To improve gait and locomotor functions, To improve safety with gait Thank you for the opportunity to evaluate your patient. For Medicare and Medicare HMO plans, please review the plan of care and approve it. It will need to be FAXED BACK to us at [phone] for Medicare purposes. For Medicare only, by signing this I certify the plan of care. Please let me know if there are questions or concerns regarding this plan of care. Physician Signature:___ Date:
--- NOTE | 2021-01-22 13:24 | HP.PTREVAL ---
Dr. Josh Bethea MD, It has been my pleasure to treat YASMINE THOMAS over the last 9 visits for weakness of B hips (needs help with walking, general deconditioning). Please see the progress note below for an update on the physical therapy plan of care! Subjective: Pt has been able to use his cane more than his walker. He has to use a walker in the evenings. Pt reports that his SOB is ok. Pt still needs an AD to walk. He is doing minimal HEP. He is doing the bridgine and leg kicks at home. Pt is RTD on the Objective/Function: LE MMT: R hip flex 4/5 and L hip flex 4/5, R knee ext 4/5 and L 4/5, B knee flex 4+/5, L hip abd 3-/5, and R hip abd 3-/5, Bridge 3/4 normal ROM X 10). Gait: pt still likes to walk with slouched posture and he still attempts to grab furniture when transfering instead of standing straight up and turning body to square up to the chair. Plan Plan: Add yoon steps for functional carry-over to stepping into shower. May add some core/ back strengthening to help with posture with the walker or shopping cart. Continue 2X/ week for another 4 weeks for LE Strength, progressive walking with good form and stride, endurance, sit to stand transfers, functional activities with HEP. HEP: bridges Balance/Gait/Functional tests - Balance/Special Test Scores Lower Extremity Functional Score: 62 Goals Goal 1:: I HEP Goal Time Frame: 6-8 Weeks Goal Progress: Progressing Goal 2:: Increase B LE strength by 1/2 muscle grade( at the time of the eval: LE MMT: R hip flex 4/5 and L hip flex 4-/5, R knee ext 4/5 and L 4/5, B knee flex 4+/5, L hip abd 3-/5, and R hip abd 3-/5, Bridge 1/2 normal ROM X 10) Goal Time Frame: 6-8 Weeks Goal 3:: Be able to walk 200 feet with a rolling walker or least restrictice device with good stride length and upright posture with SBA Goal Time Frame: 6-8 Weeks Goal Progress: Progressing Goal 4:: Be able to sit to stand X 10 without struggling and using 1 UE to stand Goal Time Frame: 6-8 Weeks Goal Progress: Progressing Goal 5:: Be able to transfer from a chair to a mat table without having to furniture walk Goal Time Frame: 6-8 Weeks Goal Progress: Progressing Anticipated Interventions Patient/Client Instruction: Educate patient on: Condition, Plan of Care For the Purpose of:: To improve muscle performance and motor function, To improve ability to perform ADL's, To increase tolerance to activity/condition/position, To improve performance and independence with ADL's, To improve ability of physical actions for home/community/work/leisure, To improve gait and locomotor functions, To improve endurance, To improve balance, To improve safety with gait, To improve safety Therapeutic Exercise to Include: Strength training, Endurance training, Balance training, Postural training, Gait and locomotor training, Neuromotor development, Active ROM, Dynamic Lumbar Stabilization For the Purpose of:: To improve nutrient delivery to tissue, To improve muscle performance and motor function, To improve ability to perform ADL's, To increase tolerance to activity/condition/position, To improve performance and independence with ADL's, To improve ability of physical actions for home/community/work/leisure, To improve gait and locomotor functions, To improve health of tissue, To increase flexibility/ROM, To improve endurance, To improve balance, To improve safety with gait Functional Training to Include: Gait training For the Purpose of:: To improve gait and locomotor functions, To improve safety with gait Please do not hesitate to contact me at [phone] by phone or if you have questions or concerns regarding this new plan of care! Sincerely, Arlen Choi MPT
--- NOTE | 2021-02-20 13:33 | HP.PTDCSUM ---
It has been my pleasure to treat YASMINE THOMAS referred by Dr. Josh Bethea MD, with the diagnosis of weakness of B hips (needs help with walking, general deconditioning) for a total of 17 visit(s). Discharge Date: 02/20/21 Please see the following information for a summary of their discharge status. Subjective: Pt reports that he is still on the walker and has not had much improvement. Encouraged pt to continue with his HEP and talk with his Dr. The patient reports that he does not do exercises at home but he does know how to do bridges and leg kicks if he had too. Pt reports that he uses the cane when he goes to the store to get to the shopping cart. He feels that he can walk a little better with the walker now. He feels that his legs are about the same as far as strength goes. nicolas MCGARRY's Pain Intensity (Out of 10): 0 % Improvement: 20 Objective/Function: Small gains have been seen as outlined below: But feels he has made only minor improvement. LE MMT: R hip flex 4/5 and L hip flex 4-/5, R knee ext 4/5 and L 4/5, B knee flex 4+/5, L hip abd 3+/5, and R hip abd 3+/5, Bridge 1/2 normal ROM X 10). Pt still needs the walker to walk and has to lean on the walker to walk. His SOB is better. Sit to stand: Pt still needs B UE to get out of a chair and he does not stand up on first attempt everytime. Goal 1:: I HEP Goal Progress: Progressing Goal 2:: Increase B LE strength by 1/2 muscle grade( at the time of the eval: LE MMT: R hip flex 4/5 and L hip flex 4-/5, R knee ext 4/5 and L 4/5, B knee flex 4+/5, L hip abd 3-/5, and R hip abd 3-/5, Bridge 1/2 normal ROM X 10) Goal Progress: Progressing Goal 3:: Be able to walk 200 feet with a rolling walker or least restrictice device with good stride length and upright posture with SBA Goal Progress: Progressing Goal 4:: Be able to sit to stand X 10 without struggling and using 1 UE to stand Goal Progress: Progressing Goal 5:: Be able to transfer from a chair to a mat table without having to furniture walk Goal Progress: Progressing Plan: DC PT to HEP (if pt wants to do it) as he is stating no additional improvement. Discharge Comments: DC PT If there are questions or concerns regarding this patient's physical therapy, please feel free to call me at [phone]. Thank you for the referral of this patient. Sincerely, Arlen Choi, MPT Balance/Gait/Functional tests - Balance/Special Test Scores Lower Extremity Functional Score: 56
== END 2021-02-20 15:49 | disposition home or self-care (01) ==
LOC: PT 13:00
PROVIDERS: PCP Family Medicine; Referring Provider Family Medicine; Visit Provider Family Medicine
DX: R29.898 Other symptoms and signs involving the musculoskeletal system (principal)
CPT/HCPCS: 97110; 97162; 97530

== ENCOUNTER → 2021-04-04 07:53 | Outpatient (CLI) | payer MEDICARE, SELFPAY ==
[2021-04-04 10:16] LABS: ALB/GLOB Ratio 0.8 RATIO (0.9-2.4); AST(SGOT) 14 U/L (15-37); Alanine Aminotransfer ALT/SGPT 12 U/L (16-61); Alkaline Phosphatase 106 U/L (45-117); Anion Gap 7 (5-15); BUN 10 mg/dL (7-18); BUN/Creat Ratio 9.3 RATIO (10-20); Calcium,Total 9.2 mg/dL (8.5-10.1); Chloride 97 mmol/L (98-107); Creatinine, Serum 1.08 mg/dL (0.70-1.30); EST Glomerular Filtration Rate 73 mL/min (>60); Est Glom Filt Rate - Afr Amer 88 mL/min (>60); Glucose 77 mg/dL (74-106); Potassium 3.2 mmol/L (3.5-5.1); Sodium Level 134 mmol/L (136-145); Thyroid Stim Hormone (TSH) 0.53 uIU/mL (0.358-3.74)
[2021-04-04 12:10] LABS: PTHIN 42.1 pg/mL (18.4-80.1)
== END ==
PROVIDERS: PCP Family Medicine; Referring Provider Internal Medicine Endocrinology, Diabetes & Metabolism; Visit Provider Internal Medicine Endocrinology, Diabetes & Metabolism
DX: E89.0 Postprocedural hypothyroidism (principal); E21.1 Secondary hyperparathyroidism, not elsewhere classified
CPT/HCPCS: 36415; 80053; 83970; 84443

== ENCOUNTER → 2021-04-09 07:25 | Outpatient (CLI) | payer MEDICARE, SELFPAY ==
[2021-04-09 09:16] LABS: Anion Gap 8 (5-15); BUN 10 mg/dL (7-18); BUN/Creat Ratio 9.3 RATIO (10-20); Calcium,Total 9.2 mg/dL (8.5-10.1); Chloride 96 mmol/L (98-107); Creatinine, Serum 1.07 mg/dL (0.70-1.30); EST Glomerular Filtration Rate 73 mL/min (>60); Est Glom Filt Rate - Afr Amer 89 mL/min (>60); Glucose 84 mg/dL (74-106); Magnesium 1.9 mg/dL (1.6-2.6); Potassium 3.6 mmol/L (3.5-5.1); Sodium Level 134 mmol/L (136-145)
== END ==
PROVIDERS: PCP Family Medicine; Referring Provider Internal Medicine Endocrinology, Diabetes & Metabolism; Visit Provider Internal Medicine Endocrinology, Diabetes & Metabolism
DX: E21.1 Secondary hyperparathyroidism, not elsewhere classified (principal)
CPT/HCPCS: 36415; 80048; 83735

== ENCOUNTER 2021-07-25 07:17 | Outpatient (CLI) | payer MEDICARE, SELFPAY ==
[2021-07-25 08:40] LABS: ALB/GLOB Ratio 0.8 RATIO (0.9-2.4); AST(SGOT) 21 U/L (15-37); Alanine Aminotransfer ALT/SGPT 25 U/L (16-61); Albumin, Serum 3.3 g/dL (3.2-5.0); Alkaline Phosphatase 134 U/L (45-117); Anion Gap 8 (5-15); BUN 15 mg/dL (7-18); Calcium,Total 9.7 mg/dL (8.5-10.1); Chloride 99 mmol/L (98-107); EST Glomerular Filtration Rate 79 mL/min (>60); Est Glom Filt Rate - Afr Amer 96 mL/min (>60); Glucose 91 mg/dL (74-106); Potassium 3.4 mmol/L (3.5-5.1); Protein, Total 7.3 g/dL (6.4-8.2); Sodium Level 135 mmol/L (136-145); Thyroid Stim Hormone (TSH) 0.72 uIU/mL (0.358-3.74)
[2021-07-25 10:02] LABS: Vitamin D,25 Hydroxy 116.7 ng/mL
[2021-07-25 10:03] LABS: PTHIN 32.5 pg/mL (18.4-80.1)
== END 2021-07-25 23:59 | disposition home or self-care (01) ==
LOC: LAB 07:21
PROVIDERS: PCP Family Medicine; Referring Provider Internal Medicine Endocrinology, Diabetes & Metabolism; Visit Provider Internal Medicine Endocrinology, Diabetes & Metabolism
DX: E89.0 Postprocedural hypothyroidism (principal); E21.1 Secondary hyperparathyroidism, not elsewhere classified; E55.9 Vitamin D deficiency, unspecified
CPT/HCPCS: 36415; 80053; 82306; 83970; 84443

== ENCOUNTER → 2021-10-15 | Outpatient (CLI) | payer MEDICARE, SELFPAY ==
--- NOTE | 2021-10-15 15:45 | CT_ITS ---
STUDY: CT ABDOMEN AND PELVIS WITHOUT CONTRAST REASON FOR EXAM: Male, 66 years old. CALCULUS OF KIDNEY. Hematuria. RADIATION DOSAGE (If Supplied By Facility): CTDIvol = ( 19.51 ) mGy, DLP = ( 1018.82 ) mGycm TECHNIQUE: Transaxial images were obtained from the dome of the diaphragm to the symphysis pubis without oral contrast, and without intravenous contrast. Sagittal and coronal images were reconstructed. Individualized dose optimization techniques were used for this CT. COMPARISON: None. FINDINGS: Mild degree of increasing markings at the lung bases suggestive of bibasilar linear atelectasis and/or scarring. Mild degree of coronary artery calcification. Normal liver. Normal gallbladder and extrahepatic biliary system. Normal spleen. Normal pancreas. Normal bilateral adrenal glands. 2 mm calculus in the upper pole calyx of the right kidney. 2.5 mm calculus is seen in the mid pole calyx of the right kidney. There is a 3.4 cm x 2.4 cm cyst in the anterior medial aspect of the upper pole of the left kidney. There is evidence of a 1.2 cm hyperdense cyst in the peripheral lateral aspect of the upper pole of the left kidney. Normal visualized stomach. Normal small intestine. There are multiple colonic diverticula consistent with diverticulosis. The appendix is visualized and appears normal. There is scattered atherosclerotic calcification of the abdominal aorta, without a demonstrated aneurysm. Normal inferior vena cava. Normal retroperitoneum. There is a 4.2 mm calculus at the base of the bladder on the right side. This most likely is secondary to a recently passed calculus. The urinary bladder is empty and thus limiting its evaluation. There is a small umbilical hernia containing fat. Marked degree of joint space narrowing and osteoarthritis of both hip joints. Disc space narrowing and disc degeneration at the L4-L5 level. CT/Abdomen/Pelvis without Cont IMPRESSION: Left renal cysts. Nonobstructive right intrarenal calculi. 4.2 mm calculus is seen at the base of the bladder on the right side suggestive of a recently passed calculus. Electronically Signed: Jose Alberto Wing MD at 9:30 EDT ,
== END | disposition home or self-care (01) ==
LOC: CT 15:41
PROVIDERS: PCP Family Medicine; Visit Provider Urology
DX: N20.0 Calculus of kidney (principal)
CPT/HCPCS: 74176

== ENCOUNTER → 2021-11-15 | Outpatient (CLI) | payer MEDICARE, SELFPAY ==
[2021-11-15 09:54] LABS: Vitamin D,25 Hydroxy 96.4 ng/mL
[2021-11-15 10:08] LABS: ALB/GLOB Ratio 0.9 RATIO (0.9-2.4); AST(SGOT) 15 U/L (15-37); Alanine Aminotransfer ALT/SGPT 15 U/L (16-61); Albumin, Serum 3.1 g/dL (3.2-5.0); Alkaline Phosphatase 101 U/L (45-117); Anion Gap 7 (5-15); BUN 11 mg/dL (7-18); BUN/Creat Ratio 11.4 RATIO (10-20); Chloride 99 mmol/L (98-107); Creatinine, Serum 0.96 mg/dL (0.70-1.30); EST Glomerular Filtration Rate 83 mL/min (>60); Est Glom Filt Rate - Afr Amer 100 mL/min (>60); Globulin 3.6 g/dL (2.2-4.2); Glucose 92 mg/dL (74-106); Potassium 3.6 mmol/L (3.5-5.1); Protein, Total 6.7 g/dL (6.4-8.2); Sodium Level 134 mmol/L (136-145); Thyroid Stim Hormone (TSH) 1.42 uIU/mL (0.358-3.74)
== END | disposition home or self-care (01) ==
LOC: LAB 07:53
PROVIDERS: PCP Family Medicine; Referring Provider Internal Medicine Endocrinology, Diabetes & Metabolism; Visit Provider Internal Medicine Endocrinology, Diabetes & Metabolism
DX: E89.0 Postprocedural hypothyroidism (principal); E55.9 Vitamin D deficiency, unspecified
CPT/HCPCS: 36415; 80053; 82306; 84443

== ENCOUNTER 2022-05-06 12:11 | Outpatient (CLI) | payer MEDICARE, SELFPAY ==
--- NOTE | 2022-05-06 14:04 | NEURO_ITS ---
NCS and/or EMG Patient Report Ordering Doctor: Jay Wahl DATE OF SERVICE: 05/06/22 Indication: Two years of progressive lower extremity weakness and gait instability. Findings: Nerve conduction studies were performed in the left lower extremity. Examination of the right lower extremity was requested, but declined by the patient. The left peroneal motor study recording the extensor digitorum brevis showed a normal amplitude, normal distal latency and normal conduction velocity. No conduction block or focal slowing was present across the fibular neck. The left tibial motor study recording the abductor hallucis brevis showed a normal amplitude, normal distal latency and normal conduction velocity. The left sural sensory response was absent. The left superficial peroneal sensory response was absent. The left medial plantar sensory response was absent. The left radial sensory response recording over the extensor snuff box was obtained for comparison purposes and showed a normal amplitude, latency and conduction velocity. Limited needle EMG of the left lower extremity muscles was performed due to the patient being on therapeutic anticoagulation. No denervation was present in any muscle. The extensor hallucis longus revealed motor units that were slightly long duration and polyphasic. The other sampled muscles demonstrated normal motor unit morphology, activation, and recruitment patterns. Impression: This is an abnormal study. There is electrophysiologic evidence of consistent with a generalized, axonal, sensorimotor, peripheral neuropathy. Jimmy Orellana D.O. Multi Select Codes Neurology Neurology Interp Codes: 22515-52 [facility] [place] done w/nerv tst sarabia (interp) and [id number] [facility] tst 5-6 studies (interp)
== END 2022-05-06 23:59 | disposition home or self-care (01) ==
LOC: PSN 12:12
PROVIDERS: PCP Student in an Organized Health Care Education/Training Program; Referring Provider Student in an Organized Health Care Education/Training Program; Visit Provider Student in an Organized Health Care Education/Training Program
DX: R29.898 Other symptoms and signs involving the musculoskeletal system (principal); M51.36 Other intervertebral disc degeneration, lumbar region; M47.816 Spondylosis without myelopathy or radiculopathy, lumbar region; M79.606 Pain in leg, unspecified
CPT/HCPCS: 95885; 95909

== ENCOUNTER → 2022-07-09 | Outpatient (CLI) | payer MEDICARE, SELFPAY ==
[2022-07-09 09:55] LABS: ALB/GLOB Ratio 0.9 RATIO (0.9-2.4); AST(SGOT) 19 U/L (15-37); Alanine Aminotransfer ALT/SGPT 26 U/L (16-61); Albumin, Serum 3.5 g/dL (3.2-5.0); Alkaline Phosphatase 126 U/L (45-117); Anion Gap 10 (5-15); BUN 14 mg/dL (7-18); CPK Total, Creatine Kinase 53 U/L (39-308); Calcium,Total 10.1 mg/dL (8.5-10.1); Chloride 98 mmol/L (98-107); Creatinine, Serum 1.17 mg/dL (0.70-1.30); EST Glomerular Filtration Rate 66 mL/min (>60); Est Glom Filt Rate - Afr Amer 80 mL/min (>60); Glucose 94 mg/dL (74-106); Potassium 3.6 mmol/L (3.5-5.1); Protein, Total 7.5 g/dL (6.4-8.2); Sodium Level 136 mmol/L (136-145); Thyroid Stim Hormone (TSH) 0.84 uIU/mL (0.358-3.74)
== END | disposition home or self-care (01) ==
PROVIDERS: PCP Student in an Organized Health Care Education/Training Program; Referring Provider Internal Medicine Endocrinology, Diabetes & Metabolism; Visit Provider Internal Medicine Endocrinology, Diabetes & Metabolism
DX: E89.0 Postprocedural hypothyroidism (principal); E55.9 Vitamin D deficiency, unspecified; M85.89 Other specified disorders of bone density and structure, multiple sites
CPT/HCPCS: 36415; 80053; 82306; 82550; 84443

== ENCOUNTER 2022-08-13 07:28 | Outpatient (CLI) | payer MEDICARE, SELFPAY ==
[2022-08-13 08:33] LABS: Hemoglobin A1c 5.1 % (3.8-5.6)
[2022-08-13 08:36] LABS: CPK Total, Creatine Kinase 54 U/L (39-308); T4 Free Direct 2.11 ng/dL (0.76-1.46); Thyroid Stim Hormone (TSH) 0.26 uIU/mL (0.358-3.74); Vitamin B12 374 pg/mL (211-911)
[2022-08-15 00:06] LABS: Immunoglobulin A 169 mg/dL (61-437); Immunoglobulin G 1462 mg/dL (603-1613); Immunoglobulin M 84 mg/dL (20-172); PROEL- A/G Ratio 1.2 (0.7-1.7); PROEL- Albumin 3.5 g/dL (2.9-4.4); PROEL- Alpha-1 Globulin 0.3 g/dL (0.0-0.4); PROEL- Alpha-2 Globulin 0.6 g/dL (0.4-1.0); PROEL- Beta Globulin 0.8 g/dL (0.7-1.3); PROEL- Gamma Globulin 1.3 g/dL (0.4-1.8); PROEL- TOTAL PROTEIN 6.5 g/dL (6.0-8.5)
[2022-08-15 16:09] LABS: RNP Ab 0.2 AI (0.0-0.9); Smith Ab <0.2 AI (0.0-0.9)
[2022-08-15 18:40] LABS: Methylmalonic Acid Bld 1290 nmol/L (0-378)
[2022-08-15 18:55] LABS: Copper, Serum or Plasma 125 ug/dL (69-132); Immunofixation Result, Serum Comment: (.)
== END 2022-08-13 23:59 | disposition home or self-care (01) ==
LOC: LAB 07:29
PROVIDERS: PCP Student in an Organized Health Care Education/Training Program; Referring Provider Psychiatry & Neurology Neurology; Visit Provider Psychiatry & Neurology Neurology
DX: R26.9 Unspecified abnormalities of gait and mobility (principal); E89.0 Postprocedural hypothyroidism
CPT/HCPCS: 36415; 82525; 82550; 82607; 82746; 82784; 83036; 83921; 84165; 84439; 84443; 86235; 86334

== ENCOUNTER → 2022-11-07 | Outpatient (CLI) | payer MEDICARE, SELFPAY ==
--- NOTE | 2022-11-07 09:25 | NM_ITS ---
CLINICAL: 67-year-old male with history of first lumbar vertebral radiographic abnormality. WHOLE BODY 99m Tc MDP RADIONUCLIDE BONE SCINTIGRAPHY COMPARISON: None available FINDINGS: Following the intravenous administration of 26.7 mCi of 99m Tc MDP, whole body bone images reveal: 1. Increased radiopharmaceutical concentration is defined in the bilateral ribs to include the right posterior first and ninth, left posterior lateral 11th, left posterior fourth ribs, the proximal sternum, the left coracoid process. 2 . Enhanced uptake is noted in the glenohumeral compartment of the left shoulder, and visualized right wrist, the patellofemoral compartments of both knees, diffusely apparent in the bilateral hip articulations. 3. The remaining skeletal structures are scintigraphically unremarkable with normal-appearing renal images and urinary bladder activity identified. NM/Bone Scan Whole Body IMPRESSION: 1. The increase in radiopharmaceutical defined in the bilateral ribs, the coracoid process on the left may be further investigated with plain film radiography. 2. Degenerative arthritis is defined in the left shoulder, the visualized right wrist, the patellofemoral compartment of both knees, the right and left shoulder articulations. 3. Large articulation synovitis appears evident in the right-left hip articulations as defined above. 4. Meticulous attention paid to the lumbar spine demonstrates no definitive scintigraphic abnormalities on the present examination. Electronically Signed: Ruy Verduzco, at 23:15 EDT ,
== END | disposition home or self-care (01) ==
LOC: NM 09:21
PROVIDERS: PCP Student in an Organized Health Care Education/Training Program; Referring Provider Internal Medicine Hematology & Oncology; Visit Provider Internal Medicine Hematology & Oncology
DX: M89.9 Disorder of bone, unspecified (principal)
CPT/HCPCS: 78306; A9503

== ENCOUNTER → 2022-11-12 | Outpatient (CLI) | payer MEDICARE, SELFPAY ==
--- NOTE | 2022-11-12 15:55 | RAD_ITS ---
INDICATION: Follow-up abnormal bone scan EXAMINATION/TECHNIQUE: X-RAY - XR Ribs Bilateral 3 Views COMPARISON: Whole-body bone scan 11/07/2022 FINDINGS: SOFT TISSUES: No soft tissue swelling or gas. BONES: No displaced fracture. No sclerotic or destructive changes observed. Degenerative changes of the bilateral shoulders. VISUALIZED LUNGS: Clear. No pneumothorax. RAD/Ribs Roman Min 4V w/PA Chest IMPRESSION: No acute or destructive rib abnormality to correlate with the bone scan findings. Degenerative changes of the bilateral shoulders. Electronically Signed: Kade Ashby MD at 17:44 EDT ,
--- NOTE | 2022-11-12 15:55 | RAD_ITS ---
EXAM: XR STERNUM, 2 OR MORE VIEWS CLINICAL INDICATION: F/U bone scan. TECHNIQUE: Lateral and oblique views of the sternum. COMPARISON: No relevant prior studies available. FINDINGS: BONES/JOINTS: No acute fracture. No subluxation. No sclerotic or destructive changes observed. SOFT TISSUES: Unremarkable. No soft tissue swelling or gas. No radiopaque foreign body. RAD/Sternum min 2 Views IMPRESSION: Negative sternum. Electronically Signed: Randall Bonilla MD at 3:15 EDT ,
--- NOTE | 2022-11-12 16:26 | RAD_ITS ---
EXAM: XR CHEST, 2 VIEWS CLINICAL INDICATION: F/U bone scan. Abnormal uptake in the ribs. TECHNIQUE: Frontal and lateral views of the chest. COMPARISON: 04/01/2018. FINDINGS: LUNGS AND PLEURAL SPACES: Scarring left lung base unchanged. No pneumothorax. No effusion. HEART: Unremarkable. Cardiac silhouette not enlarged. MEDIASTINUM: Central airways and mediastinal contour are unremarkable. BONES/JOINTS: Unremarkable. SOFT TISSUES: Unremarkable. RAD/Chest PA and Lateral IMPRESSION: 1. Scarring left lung base unchanged. 2. No acute cardiopulmonary abnormality. 3. No rib lesions identified. Electronically Signed: Randall Bonilla MD at 2:45 EDT ,
== END | disposition home or self-care (01) ==
LOC: RAD 15:53
PROVIDERS: PCP Student in an Organized Health Care Education/Training Program; Referring Provider Internal Medicine Hematology & Oncology; Visit Provider Internal Medicine Hematology & Oncology
DX: M89.9 Disorder of bone, unspecified (principal)
CPT/HCPCS: 71046; 71111; 71120

== ENCOUNTER → 2023-01-22 | Outpatient (CLI) | payer MEDICARE, SELFPAY ==
[2023-01-22 12:58] LABS: Hematocrit 38.2 % (40-54); Hemoglobin 12.5 g/dL (13.0-16.5); Mean Corp Hgb Conc 32.7 g/dL (32-36); Mean Corpuscular Hgb 31.2 pg (27.0-32.0); Mean Corpuscular Volume 95.3 fL (80-94); Mean Platelet Vol. 11.1 fl (6.2-12.0); Platelet Count 169 K/mm3 (150-450); RBC Distribution Width CV 12.8 % (11.6-14.6); RBC Distribution Width SD 44.7 fl (35.1-43.9); Red Blood Count 4.01 M/mm3 (4.6-6.2)
[2023-01-22 13:18] LABS: Vitamin D,25 Hydroxy 84.9 ng/mL
[2023-01-22 13:19] LABS: Vitamin B12 > 2000 pg/mL (211-911)
[2023-01-22 13:24] LABS: ALB/GLOB Ratio 0.9 RATIO (0.9-2.4); AST(SGOT) 15 U/L (15-37); Alanine Aminotransfer ALT/SGPT 15 U/L (16-61); Albumin, Serum 3.4 g/dL (3.2-5.0); Alkaline Phosphatase 138 U/L (45-117); Anion Gap 7 (5-15); BUN 14 mg/dL (7-18); BUN/Creat Ratio 11.6 RATIO (10-20); Calcium,Total 9.1 mg/dL (8.5-10.1); Chloride 103 mmol/L (98-107); Cholesterol 105 mg/dL (200); Creatinine, Serum 1.21 mg/dL (0.70-1.30); EST Glomerular Filtration Rate 63 mL/min (>60); Est Glom Filt Rate - Afr Amer 77 mL/min (>60); Globulin 3.7 g/dL (2.2-4.2); Glucose 85 mg/dL (74-106); High Density Lipoprotein 63 mg/dL; Magnesium 1.8 mg/dL (1.6-2.6); Potassium 3.4 mmol/L (3.5-5.1); Protein, Total 7.1 g/dL (6.4-8.2); Sodium Level 138 mmol/L (136-145); Thyroid Stim Hormone (TSH) 0.49 uIU/mL (0.358-3.74); Triglycerides 43 mg/dL; Very Low Density Lipoprotein 9 mg/dL (5-40)
== END | disposition home or self-care (01) ==
LOC: PAVLAB 12:20
PROVIDERS: Internal Medicine Endocrinology, Diabetes & Metabolism; PCP Student in an Organized Health Care Education/Training Program; Referring Provider Physician Assistant; Visit Provider Physician Assistant
DX: E89.0 Postprocedural hypothyroidism (principal); E78.2 Mixed hyperlipidemia; E55.9 Vitamin D deficiency, unspecified
CPT/HCPCS: 36415; 80053; 80061; 82306; 82607; 83735; 84443; 85027

== ENCOUNTER → 2023-02-11 | Outpatient (CLI) | payer MEDICARE, SELFPAY ==
--- NOTE | 2023-02-11 13:39 | MRI_ITS ---
EXAM: MR LUMBAR SPINE WITHOUT AND WITH INTRAVENOUS CONTRAST CLINICAL INDICATION: F/U LESION L1 [facility] TECHNIQUE: Multiplanar and multisequence MR images of the lumbar spine without and with intravenous contrast. CONTRAST: IV 20 ml CLARISCAN COMPARISON: MR Lumbar Spine dated 08/08/2022 FINDINGS: VERTEBRAE: Fat-containing lesions within the L1, L2 and L3 vertebral bodies and and left L1 facet again noted suggestive of hemangiomata, unchanged from prior MR study. Vertebral body heights are preserved. Normal vertebral bodies and posterior elements. Normal alignment. No spondylolisthesis. There is preservation of the normal lumbar lordosis. SPINAL CORD: Normal. Normal position and signal intensity of the conus medullaris. SOFT TISSUES: 2.5 cm left renal cyst again noted. DISCS/SPINAL CANAL/NEURAL FORAMINA: L1-L2: Normal. Normal disc height and morphology. Normal spinal canal and lateral recesses. Normal neuroforamina. L2-L3: Mild disc space narrowing mild disc bulging and posterior ligamentous hypertrophy results in no significant spinal or neural foraminal stenosis. L3-L4: No significant disc space narrowing. No disc protrusion. Mild ligamentous hypertrophy and facet arthropathy with mild impression on the thecal sac and mild to moderate narrowing of the right neural foramen. L4-L5: Mild disc space narrowing mild central disc protrusion, ligamentous hypertrophy and facet arthropathy results in mild compression of the thecal sac and moderate right and mild left neural foraminal narrowing. Incidentally noted is a posterior synovial cyst arising from the left facet. L5-S1: Mild disc space narrowing mild disc protrusion and moderate facet arthropathy results in moderate narrowing of the neural foramina. No significant compression of the thecal sac. Synovial cyst arising from the left L5-S1 facet extends into the foramen. MRI/Spine Lumbar W/WO Contrast IMPRESSION: Multilevel disc degeneration facet arthropathy without significant spinal stenosis. Multilevel neural foraminal stenoses as described. Stable vertebral body hemangiomata. No abnormal contrast enhancement. Electronically Signed: Sea Neal MD at 20:14 EDT ,
== END | disposition home or self-care (01) ==
LOC: MRI 13:24
PROVIDERS: PCP Student in an Organized Health Care Education/Training Program; Referring Provider Internal Medicine Hematology & Oncology; Visit Provider Internal Medicine Hematology & Oncology
DX: M89.9 Disorder of bone, unspecified (principal)
CPT/HCPCS: 72158; A9575

== ENCOUNTER → 2023-04-04 | Outpatient (CLI) | payer MEDICARE, SELFPAY ==
--- NOTE | 2023-04-04 13:37 | CT_ITS ---
INDICATION: Hemoptysis EXAMINATION: CT CHEST WITHOUT CONTRAST - CT Chest W/O Contrast Injection TECHNIQUE: Helically acquired images were obtained of the chest. A radiation dose optimization technique was used for this scan. IV Contrast dosage and agent: None. RADIATION DOSAGE (If Supplied By Facility): CTDIvol = ( 11.09 ) mGy, DLP = ( 374.75 ) mGycm COMPARISON: No relevant prior comparison study available FINDINGS: LUNGS, PLEURA AND LARGE AIRWAYS: Mild stranding in the left lower lung likely due to scarring. Mild bullous changes in the right lower lung. No focal consolidation is seen. No evidence of pulmonary nodules. No pleural effusion or thickening. No pneumothorax. THYROID: 9 mm calcified right lobe thyroid nodule. HEART AND PERICARDIUM: Mild cardiomegaly. No pericardial effusion. CORONARY ARTERIES: Coronary artery calcification are seen. VESSELS: Thoracic aorta is not dilated. MEDIASTINUM AND JOHNNIE: No mediastinal or hilar adenopathy. Esophagus is unremarkable. No hiatal hernia. UPPER ABDOMEN: No acute pathology. BONES: No suspicious lytic or blastic abnormality. Degenerative changes of the spine. CT/Chest without Contrast IMPRESSION: 1. Mild emphysematous and chronic changes in the lower lungs. 2. No mass, adenopathy or acute pulmonary infiltrate. 3. Mild cardiomegaly. Electronically Signed: Collins Woodall MD at 15:14 EDT ,
== END | disposition home or self-care (01) ==
LOC: CT 13:36
PROVIDERS: PCP Student in an Organized Health Care Education/Training Program; Referring Provider Internal Medicine Pulmonary Disease; Visit Provider Internal Medicine Pulmonary Disease
DX: R04.2 Hemoptysis (principal); J44.9 Chronic obstructive pulmonary disease, unspecified
CPT/HCPCS: 71250

== ENCOUNTER → 2023-06-05 | Outpatient (CLI) | payer MEDICARE, SELFPAY ==
[2023-06-05 08:01] LABS: Absolute Lymphocyte Count 1.36 X10^3/uL (0.83-4.51); Absolute Neutrophil Count 3.9 X10^3/uL (2.0-7.7); Basophil# 0.06 X10^3/uL; Eosinophil# 0.19 X10^3/uL; Hematocrit 37.3 % (40-54); Hemoglobin 11.8 g/dL (13.0-16.5); Lymphocyte # 1.36 X10^3/ul (0.83-4.51); Lymphocyte % 21.7 % (19-41); Mean Corp Hgb Conc 31.6 g/dL (32-36); Mean Corpuscular Hgb 31.1 pg (27.0-32.0); Mean Corpuscular Volume 98.2 fL (80-94); Mean Platelet Vol. 11.3 fl (6.2-12.0); Monocyte# 0.72 X10^3/uL; Monocyte% 11.5 % (0-10); NRBC Flagged by Analyzer 0 % (0-5); Neutrophil % 62.3 % (47-70); Platelet Count 153 K/mm3 (150-450); RBC Distribution Width CV 14.4 % (11.6-14.6); RBC Distribution Width SD 51.8 fl (35.1-43.9); White Blood Count 6.3 K/mm3 (4.4-11.0)
[2023-06-05 08:35] LABS: AST(SGOT) 13 U/L (15-37); Alanine Aminotransfer ALT/SGPT 14 U/L (16-61); Albumin, Serum 3.1 g/dL (3.2-5.0); Alkaline Phosphatase 89 U/L (45-117); Anion Gap 8 (5-15); BUN 11 mg/dL (7-18); BUN/Creat Ratio 11.2 RATIO (10-20); Calcium,Total 9.6 mg/dL (8.5-10.1); Chloride 104 mmol/L (98-107); Creatinine, Serum 0.98 mg/dL (0.70-1.30); EST Glomerular Filtration Rate 81 mL/min (>60); Est Glom Filt Rate - Afr Amer 98 mL/min (>60); Globulin 3.2 g/dL (2.2-4.2); Glucose 84 mg/dL (74-106); Protein, Total 6.3 g/dL (6.4-8.2); Sodium Level 140 mmol/L (136-145)
== END | disposition home or self-care (01) ==
PROVIDERS: PCP Student in an Organized Health Care Education/Training Program; Visit Provider Internal Medicine Endocrinology, Diabetes & Metabolism
DX: E89.0 Postprocedural hypothyroidism (principal); E21.1 Secondary hyperparathyroidism, not elsewhere classified; R74.8 Abnormal levels of other serum enzymes
CPT/HCPCS: 36415; 80053; 85025

== ENCOUNTER 2023-06-18 17:17 | Emergency (ER) | payer MEDICARE, SELFPAY ==
[2023-06-18 17:18] VITALS: BP 104/65; PULSE 105; RESP 18; TEMP 36.4; O2SAT 98
--- OUTSIDE RECORDS SUMMARY | 2023-06-18 18:01 | XMS RPT_ITS | CCD ---
Author Name Unknown Address [address] [place] [address] Organization [facility] Care Team Providers Care Regulatory Technician Name Role Phone ANNELIESE QUIÑONES Unavailable [facility] Unavailable Unavailable KIRT BETHEA Unavailable Unavailable ANNELIESE QUIÑONES JR Unavailable Unav ailable Gabriele Bethea Primary Care Provider [phone] GABRIELE BETHEA MD Primary Care Physician ([phone] ) RUSTAM ISRAEL, DR BONILLA Primary Care Physician ([phone]) MEDINA THOMPSON MD Attending Unavailable RUSTAM ISRAEL, DR BONILLA Primary Care Unavailable RUSTAM ISRAEL, DR BONILLA Attending Unavailable RUSTAM ISRAEL, DR BONILLA Primary Care Unavailable RUSTAM ISRAEL, DR BONILLA Attending Unavailable RUSTAM ISRAEL, DR BONILLA Primary Care Unavailable Allergies Allergy Classification Reported Allergen(s) Allergy Type Date of Onset Reaction(s) Facility (9 sources) Tetracycline; Translations: [TETRACYCLINE] Drug Allergy 10-20-2008 [facility] Repository Medications Current Medications Medication Drug Class(es) Dates Sig (Normalized) Sig (Original) Albuterol (1 source) beta2-Adrenergic Agonist Start: 02-14-2022 End: 08-13-2022 Ventolin HFA MDI (90 mcg/inh) inhalation aerosol 2 puff(s), Inhalation, q4h, PRN Shortness of breath or wheezing, use with spacer chamber. PHARMACY PLEASE DISPENSE SPACER. Okay to substitute alternative brand if needed for insurance., # 1 EA, 5 Refill(s), Pharmacy: [facility]/pharmacy #[id number], 170.2, cm, .. Start Date: 02/14/22 Stop Date: 08/13/22 Status: Ordered Anoro Ellipta 62.5 mcg-25 mcg/inh inhalation powder (1 source) Start: 02-14-2022 End: 08-13-2022 take 1 dose by inhalation once daily Anoro Ellipta 62.5 mcg-25 mcg/inh inhalation powder Dose = 1 puff(s), Inhalation, qDay, # 1 EA, 5 Refill(s), Pharmacy: [facility]/pharmacy #[id number], 170.2, cm, 02/14/22 13:23:00 EDT, Height Start Date: 02/14/22 Stop Date: 08/13/22 Status: Ordered atorvastatin 20 mg oral tablet (3 sources) HMG-CoA Reductase Inhibitor Start: 07-28-2019 atorvastatin 20 mg oral tablet Dose : 20 mg = 1 tab(s), Oral, qDay, # 90 tab(s), 0 Refill(s) Start Date: 07/28/19 Status: Ordered calcitriol 0.05866 mg oral capsule (6 sources) Vitamin D3 Analog Start: 09-25-2015 calcitriol 0.25 mcg oral capsule Dose : 0.25 mcg = 1 cap(s), Oral, Daily Start Date: 09/25/15 Status: Ordered calcium gluconate 650 mg oral tablet (6 sources) Start: 09-17-2019 calcium gluconate 650 mg oral tablet Dose : 650 mg = 1 tab(s), Oral, Daily, # 100 tab(s), 0 Refill(s) Start Date: 09/17/19 Status: Ordered 24 hr dilTIAZem hydrochloride 120 mg extended release oral capsule (6 sources) Calcium Channel Jaime Start: 05-04-2021 Cardizem CD 120 mg/24 hours oral capsule, extended release Dose : 120 mg = 1 cap(s), Oral, qDay, # 30 cap(s), 11 Refill(s), Pharmacy: [facility]/pharmacy #[id number], 172.7, cm, 05/04/21 10:36:00 EST, Height, kg, 05/04/21 10:36:00 EST, Dosing Weight Start Date: 05/04/21 Status: Ordered Completed/Discontinued Medications Medication Drug Class(es) Dates Sig (Normalized) Sig (Original) alendronic acid 70 mg oral tablet (1 source) Bisphosphonate Start: 10-20-2008 alendronate sodium(FOSAMAX 70 MG TAB) Indications: Thrombocytopenia, unspecified (HCC) Take once per week in the morning with a full glass of water, on an empty stomach, and do not take anything else by mouth or lie down for the next 30 minutes. 0 10/20/2008 Active Problems Active Problems Problem Classification Problem Date Documented Date Episodic/Chronic Calculus of urinary tract (3 sources) History of calculus of kidney 01-08-2022 Episodic Cardiac dysrhythmias (6 sources) Permanent atrial fibrillation 09-17-2019 Chronic Chronic obstructive pulmonary disease and bronchiectasis (1 source) Chronic obstructive lung disease 02-14-2022 Chronic Coagulation and hemorrhagic disorders (1 source) Idiopathic thrombocytopenic purpura; Translations: [ITP (idiopathic thrombocytopenic purpura)] Onset: 10-04-2009 10-04-2009 Chronic Congestive heart failure; nonhypertensive (5 sources) Heart failure with normal ejection fraction 05-04-2021 Chronic Deficiency and other anemia (2 sources) Nutritional anemia, unspecified; Translations: [Nutritional anemia, unspecified] Onset: 04-25-2023 Episodic Disorders of lipid metabolism (6 sources) Mixed hyperlipidemia 09-17-2019 Chronic Essential hypertension (6 sources) Essential hypertension 09-17-2019 Chronic Heart valve disorders (6 sources) Non-rheumatic mitral regurgitation 09-17-2019 Chronic Nonspecific chest pain (6 sources) Chest pain 03-28-2021 Episodic Nutritional deficiencies (2 sources) Deficiency of other specified B group vitamins; Translations: [Deficiency of other specified B group vitamins] Onset: 04-25-2023 Episodic Osteoarthritis (6 sources) Primary osteoarthritis, left wrist; Translations: [Arthritis] Onset: 04-28-2018 02-02-2021 Chronic Other bone disease and musculoskeletal deformities (1 source) 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[place]], left hand; Translations: [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[place]), left hand] Onset: 04-28-2018 Chronic Other bone disease and musculoskeletal deformities (1 source) Osteochondritis of the carpal lunate; Translations: [[place]'s disease, left] Onset: 04-28-2018 04-28-2018 Chronic Other circulatory disease (2 sources) Wheeze - rhonchi 01-08-2022 Episodic Other circulatory disease (2 sources) Hypotension, unspecified; Translations: [Hypotension, unspecified] Onset: 04-25-2023 Episodic Other connective tissue disease (3 sources) Muscle weakness of limb 01-08-2022 Episodic Other connective tissue disease (3 sources) Pain in lower limb 01-08-2022 Episodic Other lower respiratory disease (2 sources) Air trapping 01-09-2022 Episodic Other lower respiratory disease (1 source) Restrictive lung disease 02-14-2022 Episodic Other non-traumatic joint disorders (1 source) Arthritis of hip 02-14-2022 Chronic Other non-traumatic joint disorders (1 source) Arthritis of left wrist; Translations: [Arthritis of left wrist] Onset: 04-28-2018 04-28-2018 Other nutritional; endocrine; and metabolic disorders (6 sources) Morbid obesity 09-17-2019 Chronic Other nutritional; endocrine; and metabolic disorders (2 sources) Other disorders of bilirubin metabolism; Translations: [Other disorders of bilirubin metabolism] Onset: 04-25-2023 Chronic Other nutritional; endocrine; and metabolic disorders (6 sources) H/O: endocrine disorder 09-27-2020 Episodic Kirstie-; endo-; and myocarditis; cardiomyopathy (except that caused by tuberculosis or sexually transmitted disease) (6 sources) Idiopathic hypertrophic subaortic stenosis 09-17-2019 Chronic Pleurisy; pneumothorax; pulmonary collapse (2 sources) Pleural effusion 01-09-2022 Episodic Residual codes; unclassified (6 sources) Obstructive sleep apnea syndrome 09-17-2019 Chronic Residual codes; unclassified (6 sources) Edema 07-22-2019 Episodic Residual codes; unclassified (6 sources) Edema of lower extremity 07-28-2019 Episodic Rheumatoid arthritis and related disease (1 source) Arthropathy of lumbar facet joint 02-14-2022 Chronic Spondylosis; intervertebral disc disorders; other back problems (1 source) Degeneration of lumbar intervertebral disc 02-14-2022 Chronic Thyroid disorders (6 sources) Hypothyroidism 07-22-2019 Chronic Unclassified (1 source) Unknown / UNK(Unknown) Onset: 04-28-2018 Past or Other Problems Problem Classification Problem Date Documented Date Episodic/Chronic Deficiency and other anemia (1 source) Iron deficiency anemia; Translations: [FREEMAN (iron deficiency anemia)] Onset: 11-15-2010 11-15-2010 Episodic Other screening for suspected conditions (not mental disorders or infectious disease) (1 source) Platelet count below reference range; Translations: [Thrombocytopenia, unspecified] Onset: 10-20-2008 10-20-2008 Episodic Unclassified (1 source) 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[place]), left hand Onset: 04-28-2018 Results Test Name Value Interpretation Reference Range Facil ity Encounters Encounter Date Encounter Type Care Provider Facility Start: 04-25-2023 End: 04-30-[address] CHAD EASTON DO Facility:[facility] Start: 11-04-2022 End: 11-05-[address] CHAD EASTON DO Facility:[facility] Start: 08-08-2022 End: 08-09-2022 ambulatory MEDINA THOMPSON MD Facility:[facility] Start: 02-25-2022 End: 02-25-[address] HAILEY GUERRERO MD [facility] Start: 02-05-2022 End: 02-05-2022 Patient encounter procedure HARPREET JOHNSON ASSEMBLER PRODUCTION LINE-BUZZ[employer] OPERATOR HELPER [facility] Start: 01-08-2022 End: 01-08-[address] CHAD EASTON DO [facility] Start: 08-09-2021 End: 08-13-2021 Outreach Lab GABRIELE BETHEA MD [facility] Start: 06-27-2021 End: 06-27-[address] HAILEY GUERRERO MD [facility] Start: 04-12-2021 End: 04-12-2021 Patient encounter procedure MCKENZIE IRVING ASSEMBLER PRODUCTION LINE-BUZZSAW OPERATOR HELPER [facility] Start: 04-28-2018 End: 04-28-2018 Patient encounter procedure ANNELIESE QUIÑONES Facility:[facility] Start: 10-21-2008 End: 10-21-2008 Patient encounter procedure Byron Ramey Work Phone: [facility] Start: 10-21-2008 Results Only Byron Hoffman Sandra merino Work Phone: [facility] Procedures Date Procedure Procedure Detail Performing Clinician Start: 04-12-[address] HAILEY GUERRERO MD Start: 03-21-[address] CANDIS GUERRERO MD Plan of Treatment Date Care Activity Detail Author Start: 02-15-2020 Influenza vaccination INFLUENZA (#1) [facility] Start: 2019 ADVANCE DIRECTIVE DISCUSSION ADVANCE DIRECTIVE DISCUSSION [facility] Start: 2019 PNEUMOVAX AGE 65 AND OVER WITH 5YR LOOKBACK (#1) PNEUMOVAX AGE 65 AND OVER WITH 5YR LOOKBACK (#1) [facility] Start: 12-22-2011 DIABETES SCREEN DIABETES SCREEN [facility] Start: 2009 PROSTATE CANCER SCRE ENING DISCUSSION PROSTATE CANCER SCREENING DISCUSSION [facility] Start: 2004 SHINGRIX VACCINE (1 of 2) PAREKH GRIX VACCINE (1 of 2) [facility] Start: 2004 Tuberculosis screening COLOREC GREGORY CANCER SCREENING,SEE MODIFIER [facility] Start: 1989 LIPID SCREEN LIPID SCREEN [facility] Start: 1973 Urine microalbumin profile DTAP,TDAP ,TD (1 - Tdap) [facility] Immunizations Immunization Date Immunization Notes Care Provider [facility] 05-08-2021 influenza, high dose seasonal, preservative-free; Translations: [Fluad Quadrivalent PF ] DR HAILEY GUERRERO MD [facility] 12-07-2020 SARS-CoV-2 (COVID-19 ) [id number] vaccine GABRIELE BETHEA MD [facility] Payers Date Payer Category Payer Private Health Insurance [id number] 1955 Unknown [id number] 1955 Unknown [id number] 1955 Unknown [id number] 1955 Unknown [id number] Unknown [id number] Social History Date Type Detail Facility Start: 10-20-2008 End: 07-22-2019 Tobacco smoking status NHIS Never smoker [facility] Start: 10-20-2008 Alcohol intake Not Asked [facility] Sex Assigned At Not on file [facility] Sex Assigned At Male [facility] Clinical Notes 01-08-2022 LaboratoryLaboratoryLaboratoryLaboratoryLaboratoryLaboratory Note Date & Type Note Facility 01-08-2022 Note ORIGINAL EXAMINATION: TWO XRAY VIEWS OF THE CHEST01/08/2022 3:28 pm COMPARISON: 08/13/2019 HISTORY: ORDERING SYSTEM PROVIDED HISTORY: Reason for Exam: Abnormal breath sounds FINDINGS: The heart is borderline in size.The left diaphragm is elevated. There is probably discoid atelectasis in the right lung base. Trace pleural effusions or pleural thickening noted bilaterally. Background of hyperinflation noted. No aggressive osseous lesions identified.Degenerative changes seen in the spine. IMPRESSION: Asymmetric elevation of the left diaphragm. There is trace pleural fluid or pleural thickening bilaterally. Suspect a background of COPD Interpreted by: Denny Dyer MD Preliminary Report By: Denny Dyer MD Electronically signed By Denny Dyer MD Dictated Date: 01/08/2022 10:06:27 PM Prelim Date: 01/08/2022 10:07:46 PM Sign Date: 01/08/2022 10:07:46 PM Ordering Provider: CHAD EASTON [facility] 01-08-2022 Note ORIGINAL EXAMINATION: TWO XRAY VIEWS OF THE CHEST01/08/2022 3:28 pm COMPARISON: 08/13/2019 HISTORY: ORDERING SYSTEM PROVIDED HISTORY: Reason for Exam: Abnormal breath sounds FINDINGS: The heart is borderline in size.The left diaphragm is elevated. There is probably discoid atelectasis in the right lung base. Trace pleural effusions or pleural thickening noted bilaterally. Background of hyperinflation noted. No aggressive osseous lesions identified.Degenerative changes seen in the spine. IMPRESSION: Asymmetric elevation of the left diaphragm. There is trace pleural fluid or pleural thickening bilaterally. Suspect a background of COPD Interpreted by: Denny Dyer MD Preliminary Report By: Denny Dyer MD Electronically signed By Denny Dyer MD Dictated Date: 01/08/2022 10:06:27 PM Prelim Date: 01/08/2022 10:07:46 PM Sign Date: 01/08/2022 10:07:46 PM Ordering Provider: CHAD EASTON [facility] Evaluation + Plan note Future Appointments Appointment Date:05/03/2021 01:15:00 PM Scheduled Provider:GABRIELE BETHEA MD Location:[facility] Appointment Type:PC OV Appointment Date:05/04/2021 10:15:00 AM Scheduled Provider: Location:[facility] Appointment Type:CV OV Future Scheduled TestsComplete Blood Count 11/27/20Complete Metabolic Panel 11/27/20 [facility] Evaluation + Plan note Future Appointments Appointment Date:08/03/2021 02:00:00 PM Scheduled Provider:GABRIELE BETHEA MD Location:[facility] Appointment Type:PC OV Appointment Date:08/10/2021 10:00:00 AM Scheduled Provider: Location:[facility] Appointment Type:CV OV Future Scheduled TestsComplete Blood Count 11/27/20Complete Metabolic Panel 11/27/20 [facility] Evaluation + Plan note Future Appointments Appointment Date:11/08/2021 03:00:00 PM Scheduled Provider:GABRIELE BETHEA MD Location:[facility] Appointment Type:PC OV Future Scheduled TestsUrinalysis 08/09/21N-Terminal proBNP 02/07/22Complete Blood Count 11/27/20Complete Metabolic Panel 11/27/20 [facility] Evaluation + Plan note Future Appointments Appointment Date:02/13/2022 01:00:00 PM Scheduled Provider: Location:[facility] Appointment Type:CV OV Appointment Date:02/14/2022 01:30:00 PM Scheduled Provider:CHAD EASTON DO Location:[facility] Appointment Type:PC OV Follow Up Future Scheduled TestsUrinalysis 2N-Terminal proBNP 02/07/22 [facility] Evaluation + Plan note Future Appointments Appointment Date:02/14/2022 01:30:00 PM Scheduled Provider:CHAD EASTON DO Location:[facility] Appointment Type:PC OV Follow Up Appointment Date:02/25/2022 02:00:00 PM Scheduled Provider: Location:[facility] Appointment Type:CV Procedure - AOH Echo Appointment Date:03/15/2022 11:30:00 AM Scheduled Provider: Location:[facility] Appointment Type:CV OV Future Scheduled TestsUrinalysis 08/09/21N-Terminal proBNP 02/07/22 [facility] Evaluation + Plan note Future Appointments Appointment Date:03/15/2022 11:30:00 AM Scheduled Provider: Location:[facility] Appointment Type:CV OV Appointment Date:03/21/2022 02:00:00 PM Scheduled Provider:CHAD EASTON DO Location:[facility] Appointment Type:PC OV Follow Up Future Scheduled TestsUrinalysis 08/09/21N-Terminal proBNP 02/07/22 [facility] Hospital course Narrative No data available for this section [facility] Hospital Discharge instructions No data available for this section [facility] Progress note No data available for this section [facility] Summary Purpose Family History No Family History Records FoundNo Family History Records FoundNo Family History Records Found Advance Directives No Advanced Directives Records FoundNo Advanced Directives Records FoundNo Advanced Directives Records Found Additional Source Comments (unrecognized sect ion and content) No Status Records FoundNo Status Records FoundNo Status Records Found INFORMATION SOURCE (unrecogn ized section and content) DATE CREATED AUTHOR AUTHOR'S ORGANMAURICE ATION 05/24/2018 [facility] DATE CREATED AUTHOR AUTHOR'S ORGANMAURICE ATION 05/05/2023 [facility] ([place] Source Comments (unrecognize d section and content) In the event this informatio n is protected by the Federal Confidentiality of Alcohol and Drug Abuse Patient Records regulations: The Federal rules restrict any use of the information to criminally investigate or prosecute any alcohol or drug abuse patient.[facility] Care Team (unrecognized sect ion and content) Care Team Personnel Name: GABRIELE BETHEA MD Position: P4 Physician - Primary Care Med Service: Active Provider Member Role: Primary Care Physician Address: Address: [address] [place] [address] Care Team Related Persons Name: SACHA COLUNGA Care Team Personnel Name: CHAD EASTON DO Position: P4 Physician - Primary Care Member Role: Primary Care Physician Address: Address: [address] [place] [address] Care Team Related Persons Name: SACHA COLUNGA Care Team Personnel Name: CHAD EASTON DO Position: P4 Physician - Primary Care Med Service: Active Provider Member Role: Primary Care Physician Address: Address: [address] [place] [address] Care Team Related Persons Name: SACHA COLUNGA FOR RECORDS PERTAINING TO PATIENTS WHO ARE OR HAVE BEEN ENROLLED IN A CHEMICAL DEPENDENCY/SUBSTANCEABUSE PROGRAM, SOME INFORMATION MAY BE OMITTED. This clinical summary was aggregated from multiple sources. Caution should be exercised in using it in the provision of clinical care. This summary normalizes information from multiple sources, and as a consequence, information in this document may materially change the coding, format and clinical context of patient data. In addition, data may be omitted in some cases. CLINICAL DECISIONS SHOULD BE BASED ON THE PRIMARY CLINICAL RECORDS. [facility] [facility]. provides no warranty or guarantee of the accuracy or completeness of information in this document.
--- NOTE | 2023-06-18 18:18 | ED.VIS.LOWEX ---
HPI History of Present Illness Chief Complaint: Wound Check Detail of Chief Complaint: Bleeding from biopsy site right popliteal fossa Informant: patient Occured/Mechanism Comment: Biopsy site right popliteal fossa yesterday Onset/Context/Timing Context: Gradual Onset Timing: Continuous Location: Right popliteal fossa Current Severity: Mild Maximum Severity: Mild Worsened by: Patient on anticoagulant Xarelto Associated Symptoms Associated Symptoms: Negative for Parasthesia, Weakness or Loss of Funtion Narrative Narrative: Patient is a 59-year-old man. Patient had biopsy by his doctor yesterday. States it was a large fleshy tumor. He contacted his physician. She he was instructed to go to the nearest emergency room because he was bleeding. He denies orthostatic symptoms. He has no complaint of paresthesia, anesthesia or motor weakness. He denies pain. He denies fever or chills. Tetanus Immunization: 5-10 years Prior similar symptoms: No PFSH PFSH Medical History (HFpEF) heart failure with preserved ejection fraction Arthritis of left hip Bone lesion Bone lesion COPD (chronic obstructive pulmonary disease) Edema Hyperinflation of lungs Hyperlipidemia Hyperparathyroidism Hypothyroidism Idiopathic hypertrophic subaortic stenosis Lesion of lumbar spine Lumbar degenerative disc disease Lumbar facet arthropathy Lumbar radiculopathy Nephrolithiasis Nonrheumatic mitral valve regurgitation Observed sleep apnea Peripheral neuropathy Permanent atrial fibrillation Pleural effusion Restrictive lung disease Home Medications spironolactone 25 mg tablet 25 mg PO BID diuretic 10/23/13 [History Last Taken 11/15/17] atorvastatin 20 mg tablet 20 mg PO QHS cholesterol 11/16/17 [History Last Taken 11/15/17] levothyroxine 125 mcg tablet 125 mcg PO DAILY thyroid 11/16/17 [History Last Taken 05/21/18 09:30 125 MCG] albuterol sulfate 90 mcg/actuation aerosol inhaler 2 puff inhalation Q4H PRN 10/24/22 [History Last Taken Unknown] calcitriol 0.25 mcg capsule 0.25 mcg PO DAILY 10/24/22 [History Last Taken Unknown] calcium gluconate 60 mg calcium (650 mg) tablet 60 mg PO DAILY 10/24/22 [History Last Taken Unknown] cyanocobalamin (vitamin B-12) 1,000 mcg tablet 1,000 mcg PO DAILY 10/24/22 [History Last Taken Unknown] indapamide 1.25 mg tablet 1.25 mg PO QAM 10/24/22 [History Last Taken Unknown] lidocaine HCl 4 % topical cream (Aspercreme (lidocaine HCl)) 1 applic topical TID PRN 10/24/22 [History Last Taken Unknown] magnesium oxide 400 mg (241.3 mg magnesium) tablet 400 mg PO DAILY 10/24/22 [History Last Taken Unknown] metoprolol tartrate 100 mg tablet 100 mg PO BID 10/24/22 [History Last Taken Unknown] potassium chloride 10 mEq tablet,extended release 10 meq PO DAILY 10/24/22 [History Last Taken Unknown] rivaroxaban 20 mg tablet (Xarelto) mg PO DAILY 10/24/22 [History Last Taken Unknown] umeclidinium 62.5 mcg-vilanterol 25 mcg/actuation powdr for inhalation (Anoro Ellipta) 1 inh inhalation DAILY 10/24/22 [History Last Taken Unknown] zolpidem 10 mg tablet (Ambien) 10 mg PO QHS PRN 10/24/22 [History Last Taken Unknown] ibandronate 150 mg tablet 150 mg PO QMONTH 11/12/22 [History Last Taken Unknown] Allergy/AdvReac Type Severity Reaction Status Date / Time Tetracyclines Allergy Swelling Verified 06/18/23 17:18 Family History Father Myocardial infarction Surgical History History of transesophageal echocardiography (JAMEE) Hx of cardiovascular stress test Hx of echocardiogram Hx of tonsillectomy Social History current occupational status: retired Smoking Status: Never smoker alcohol intake: never substance use type: does not use caffeine: Yes Type: carbonated beverages ROS ROS ED Constitutional Constitutional ED: Denies chills, fever(s), subjective, sweats or weight loss Musculoskeletal Musculoskeletal: Denies arthralgias, back pain or myalgias Integumentary Reports other Details: Wound right popliteal fossa Endocrine Endocrinology: Denies polydipsia, polyphagia or polyuria Hematologic/Lymphatic Hematologic/Lymphatic: Reports easy bleeding and easy bruising EXAM Physical Exam Const Vital Signs: 01/03/24 17:18 Temperature 97.6 F L Temperature Source Temporal Pulse Rate 105 H Respiratory Rate 18 Blood Pressure 104/65 Blood Pressure Mean 78 Pulse Ox 98 Oxygen Delivery Method Room Air Positive well nourished, well developed and obese General Appearance ED: well developed and NAD Nutritional Appearance: obese HEENT HEENT Narrative: HEENT is grossly normal. Eyes Eyes Narrative: Conjunctive is pink. Resp normal respiratory effort Cardio regular rate, S1 normal heart sound, S2 normal heart sound and no murmurs GI non-tender, non-distended and no masses Extremity Extremity Narrative: Patient has an area of 3 x 8 mm size that is oozing blood. This is the biopsy site. There is no evidence infection i.e. erythema, warmth, induration or lymphangitis. There is no popliteal lymphadenopathy. There is no purulent drainage. General Extremety ED: Negative for weight-bearing difficulty General Extremity: Negative for weight-bearing difficulty Neuro oriented x3, CN's II-XII intact bilaterally and moves all extremities Skin Skin Narrative: Open wound, biopsy site, right popliteal fossa. Biopsy was performed yesterday. MDM MDM MDM Narrative Medical decision making narrative: Postop/biopsy site bleeding due to anticoagulant, Xarelto Discharge Plan Triage Chief Complaint: Wound Check ED Provider: Michael Christy Dx/Rx/DC Orders Clinical Impression: Postoperative hemorrhage from incision, Leg edema, left, HTN (hypertension), PAD (peripheral artery disease), Venous insufficiency, Anticoagulant long-term use Instructions: ED Post Op Wound Check, Bleeding Prescriptions: No Action albuterol sulfate 90 mcg/actuation HFA aerosol inhaler 2 puff inhalation Q4H PRN calcitriol 0.25 mcg capsule 0.25 mcg PO DAILY calcium gluconate 60 mg calcium (650 mg) tablet 60 mg PO DAILY cyanocobalamin (vitamin B-12) 1,000 mcg tablet 1,000 mcg PO DAILY indapamide 1.25 mg tablet 1.25 mg PO QAM lidocaine HCl [Aspercreme (lidocaine HCl)] 4 % cream 1 applic topical TID PRN magnesium oxide 400 mg (241.3 mg magnesium) tablet 400 mg PO DAILY metoprolol tartrate 100 mg tablet 100 mg PO BID potassium chloride 10 mEq tablet extended release 10 meq PO DAILY Xarelto 20 mg tablet PO DAILY Patient Comments: TAKE 1 TABLET BY MOUTH EVERY DAY EVENING MEAL Anoro Ellipta 62.5-25 mcg/actuation blister with device 1 inh inhalation DAILY zolpidem [Ambien] 10 mg tablet 10 mg PO QHS PRN ibandronate 150 mg tablet 150 mg PO QMONTH spironolactone 25 MG tablet 25 mg PO BID levothyroxine 125 MCG tablet 125 mcg PO DAILY atorvastatin 20 tablet 20 mg PO QHS Patient Comments: Primary Care Provider: Jay Wahl Referrals: Jay Wahl DO [Primary Care Provider] - 1-2 Days if not improving Activity Restrictions/Additional Instructions: Do not remove dressing for 24 hours. Disposition Disposition: Home, Self Care
== END 2023-06-18 18:38 | disposition home or self-care (01) ==
PROVIDERS: Emergency Provider Emergency Medicine; PCP Student in an Organized Health Care Education/Training Program; Visit Provider Emergency Medicine
DX: L76.22 Postprocedural hemorrhage of skin and subcutaneous tissue following other procedure (principal); J44.9 Chronic obstructive pulmonary disease, unspecified; I11.0 Hypertensive heart disease with heart failure; I50.9 Heart failure, unspecified; I73.9 Peripheral vascular disease, unspecified; I87.2 Venous insufficiency (chronic) (peripheral); Z79.01 Long term (current) use of anticoagulants; R60.0 Localized edema; E78.5 Hyperlipidemia, unspecified; E03.9 Hypothyroidism, unspecified
CPT/HCPCS: 99282

== ENCOUNTER 2023-06-26 12:57 | Inpatient (IN) | payer MEDICARE, SELFPAY ==
[2023-06-26 12:58] VITALS: BP 132/106; PULSE 98; RESP 16; TEMP 36.3; O2SAT 96
[2023-06-26 14:23] LABS: Absolute Lymphocyte Count 0.67 X10^3/uL (0.83-4.51); Absolute Neutrophil Count 9.4 X10^3/uL (2.0-7.7); Basophil# 0.01 X10^3/uL; Basophil% 0.1 % (0-1); Eosinophil# 0.01 X10^3/uL; Eosinophils% 0.1 % (0-5); Hematocrit 37.4 % (40-54); Hemoglobin 12.2 g/dL (13.0-16.5); Lymphocyte # 0.67 X10^3/ul (0.83-4.51); Mean Corp Hgb Conc 32.6 g/dL (32-36); Mean Corpuscular Hgb 30.4 pg (27.0-32.0); Mean Corpuscular Volume 93.3 fL (80-94); Mean Platelet Vol. 11.6 fl (6.2-12.0); Monocyte# 0.99 X10^3/uL; Monocyte% 8.9 % (0-10); NRBC Flagged by Analyzer 0 % (0-5); Neutrophil # 9.36 X10^3/uL (2.7-7.7); Neutrophil % 84.3 % (47-70); Platelet Count 207 K/mm3 (150-450); RBC Distribution Width CV 13.9 % (11.6-14.6); Red Blood Count 4.01 M/mm3 (4.6-6.2); White Blood Count 11.1 K/mm3 (4.4-11.0)
--- NOTE | 2023-06-26 14:34 | RAD_ITS ---
STUDY: X-RAY LEFT FOOT, LEFT GREAT TOE REASON FOR EXAM: Male, 67 years old. Reported osteomyelitis left great toe TECHNIQUE: 3 view(s) of the toe were obtained. COMPARISON: None. FINDINGS: Normal visualized metatarsus. Normal metatarsophalangeal (M.T.P) joint. Normal interphalangeal joints. Erosive changes are seen in the distal portion of the distal phalanx of the great toe suggestive of osteomyelitis. Soft tissue swelling. RAD/Toe(s) Min 2 Views IMPRESSION: Erosive changes are seen in the distal portion of the distal pharynx of the great toe suggestive of osteomyelitis. Soft tissue swelling. Electronically Signed: Jose Alberto Wing MD at 15:01 EST ,
[2023-06-26 14:35] VITALS: BP 122/69; PULSE 99; RESP 18; TEMP 37.1; O2SAT 96; BMI 33.2
[2023-06-26 14:35] LABS: Anion Gap 7 (5-15); BUN 16 mg/dL (7-18); BUN/Creat Ratio 11.5 RATIO (10-20); Calcium,Total 9.5 mg/dL (8.5-10.1); Chloride 100 mmol/L (98-107); Creatinine, Serum 1.39 mg/dL (0.70-1.30); EST Glomerular Filtration Rate 54 mL/min (>60); Est Glom Filt Rate - Afr Amer 65 mL/min (>60); Glucose 94 mg/dL (74-106); Potassium 3.9 mmol/L (3.5-5.1); Sodium Level 136 mmol/L (136-145)
--- NOTE | 2023-06-26 14:36 | ED.VIS.LOWEX ---
HPI History of Present Illness Chief Complaint: Wound Detail of Chief Complaint: Because of wound left great toe and osteomyelitis of great toe Informant: patient Occured/Mechanism Comment: Patient had x-rays yesterday at outside facility that were reportedly revealed osteomyelitis. Patient does not know which bones. Onset/Context/Timing Onset: - (Unknown) Context: - (Unknown) Quality of Pain: - (Pain left great toe) Location: Left great toe Current Severity: Mild Maximum Severity: Moderate Worsened by: Palpation Relieved by: Nothing Associated Symptoms Associated Symptoms: Positive for - (Bilateral lymphedema on loop diuretic and potassium sparing diuretic); Negative for Parasthesia, Weakness or Loss of Funtion Narrative Narrative: Patient is a 67-year-old male with history of hypothyroidism, hyper tension, lymphedema and is on long-term anticoagulant. Uncertain why he is on the terminal carman anticoagulant. Tetanus Immunization: Unknown Prior similar symptoms: No Recent Illness/Hospitalization: Yes [facility] Medical History (Updated 06/26/23 @ 18:[address] Randall Lorenzo, DPAlfredo) (HFpEF) heart failure with preserved ejection fraction Arthritis of left hip Asthma Atrial fibrillation BiPAP (biphasic positive airway pressure) dependence Bone lesion Chronic anemia Chronic pain CKD (chronic kidney disease), stage II COPD (chronic obstructive pulmonary disease) Hyperlipidemia Hyperparathyroidism Hypothyroidism Idiopathic hypertrophic subaortic stenosis Lesion of lumbar spine Lumbar degenerative disc disease Lumbar facet arthropathy Lumbar radiculopathy Nephrolithiasis Nonrheumatic mitral valve regurgitation Observed sleep apnea Peripheral neuropathy Permanent atrial fibrillation Restrictive lung disease Sleep apnea Home Medications spironolactone 25 mg tablet 25 mg PO BID diuretic 10/23/13 [History Last Taken 11/15/17] levothyroxine 125 mcg tablet 125 mcg PO DAILY thyroid 11/16/17 [History Last Taken 05/21/18 09:30 125 MCG] albuterol sulfate 90 mcg/actuation aerosol inhaler 2 puff inhalation Q4H PRN shortness of breath or wheezing 10/24/22 [History Last Taken Unknown] calcitriol 0.25 mcg capsule 0.25 mcg PO DAILY 10/24/22 [History Last Taken Unknown] calcium gluconate 60 mg calcium (650 mg) tablet 60 mg PO DAILY 10/24/22 [History Last Taken Unknown] cyanocobalamin (vitamin B-12) 1,000 mcg tablet 1,000 mcg PO DAILY 10/24/22 [History Last Taken Unknown] lidocaine HCl 4 % topical cream (Aspercreme (lidocaine HCl)) 1 applic topical TID PRN pain 10/24/22 [History Last Taken Unknown] magnesium oxide 400 mg (241.3 mg magnesium) tablet 400 mg PO DAILY 10/24/22 [History Last Taken Unknown] metoprolol tartrate 100 mg tablet 50 mg PO BID 10/24/22 [History Last Taken Unknown] potassium chloride 10 mEq tablet,extended release 20 meq PO DAILY 10/24/22 [History Last Taken Unknown] rivaroxaban 20 mg tablet (Xarelto) 20 mg PO DAILY 10/24/22 [History Last Taken Unknown] ibandronate 150 mg tablet 150 mg PO QMONTH 11/12/22 [History Last Taken Unknown] diltiazem HCl 120 mg capsule,extended release 24 hr 120 mg PO DAILY 06/26/23 [History Last Taken Unknown] trazodone 100 mg tablet 100 mg PO QHS 06/26/23 [History Last Taken Unknown] Allergy/AdvReac Type Severity Reaction Status Date / Time Tetracyclines Allergy Swelling Verified 06/26/23 12:59 Family History (Updated 06/26/23 @ 16:[address] Crystal Emerson MD) Father Myocardial infarction CAD (coronary artery disease) Heart disease Hypertension Mother Hypertension Diabetes Surgical History History of lung surgery History of surgery on lower extremity History of transesophageal echocardiography (JAMEE) Hx of cardiovascular stress test Hx of echocardiogram Hx of tonsillectomy Social History (Updated 06/26/23 @ 16:[address] Crystal Emerson MD) household members: none current occupational status: retired Smoking Status: Never smoker alcohol intake: never substance use type: does not use caffeine: Yes Type: carbonated beverages ROS ROS ED Constitutional Constitutional ED: Denies chills, fever(s), subjective, sweats or weight loss Eyes Eyes: Denies blurry vision, change in vision or diplopia ENT ENT ED: Denies ear pain, rhinorrhea or sore throat Cardiovascular Cardiovascular: Denies chest pain, orthopnea, palpitations, paroxysmal nocturnal dyspnea or racing heartbeat Respiratory/Chest Respiratory/Chest: Denies cough, dyspnea, dyspnea on exertion, orthopnea or paroxysmal nocturnal dyspnea Gastrointestinal Gastrointestinal: Denies abdominal pain, nausea or vomiting Genitourinary Genitourinary ED: Denies dysuria, hematuria or urinary frequency Musculoskeletal Musculoskeletal: Denies arthralgias, back pain, myalgias or neck pain Integumentary Reports rash Neurologic Neurologic: Reports weakness Hematologic/Lymphatic Hematologic/Lymphatic: Reports easy bruising EXAM Physical Exam Const Vital Signs: 06/26/23 12:58 06/26/23 14:35 Temperature 97.4 F L 98.7 F Temperature Source Temporal Oral Pulse Rate 98 99 Respiratory Rate 16 18 Blood Pressure 132/106 H 122/69 H Blood Pressure Mean 114 86 Pulse Ox 96 96 Oxygen Delivery Method Room Air Room Air Positive well nourished, well developed, obese and unkempt General Appearance ED: unkempt and well developed Nutritional Appearance: obese HEENT HEENT Narrative: Head is atraumatic and normocephalic. Ears normal. Nares patent. Posterior pharynx is normal. Eyes PERRL Eyes Narrative: Extraocular muscles are intact. Sclera is anicteric. Conjunctive is inked. Neck full ROM and supple Chest Wall inspection of chest normal and palpation of chest normal Resp normal respiratory effort, no retractions and clear to auscultation bilaterally Cardio regular rate, regular rhythm, S1 normal heart sound, S2 normal heart sound and no murmurs GI non-tender, non-distended and no masses Auscultation: hypoactive bowel sounds Palpation: soft Extremity Negative for normal to inspection Extremity Narrative: Has bilateral lymphedema greater left. There is dermatologic changes consistent with venous stasis dermatitis. Patient has 2 abrasions. There is no evidence infection of the abrasions of the distal left leg. Patient does have stigmata of peripheral arterial disease with absent hair on his toes. DP pulse is diminished. Capillary refill is 2 to 3 seconds. He does have slight thickening of his toenails. Patient has dried blood on all of his toes. He states the blood is from a lesion on his left great toe. There is slight erythema of the left great toe. There is no induration or warmth. There is no lymphangitis. There is no popliteal or inguinal lymphadenopathy. General Extremety ED: Yes edema General Extremity: edema Neuro oriented x3 and CN's II-XII intact bilaterally Psych mental status grossly normal Appearance: unkempt Skin No no wounds Skin Narrative: And has multiple bruises. He is on Xarelto. Rashes: no rashes Sepsis Attestation Date exam was performed: 06/26/23 Time exam was performed: 14:30 Possible Source of Sepsis: Bone/joint Sepsis Organ Dysfunction Criteria Present: Lactic Acid > 2 mmol/L Fluid Resuscitation Reason for lesser fluid bolus:: Other (Since patient is not hypotensive and lactate is not greater than 4 fluid bolus is not indicated.) MDM MDM MDM Narrative Medical decision making narrative: Since there is concern for osteomyelitis imaging was repeated since access is not available for review and interpretation has not been released. Will obtain CBC, basic metabolic panel as well as CRP and sed rate. Patient has seen Dr. Kevin Junior, talent development specialist. He has been paged. Lab Data Attestation: I reviewed the patient's lab results. Lab results narrative: Count is slightly elevated with shift. There is no bandemia. Basic metabolic panel is remarked for an elevated creatinine of 1.39 with an estimated GFR of 54. Lactate is elevated 2.2. Since lactate is elevated we will get blood cultures prior to administration of antibiotics. Since patient is not diabetic he was treated with Unasyn and vancomycin. Labs: Laboratory Results - last 24 hr 06/26/23 14:00 WBC 11.1 H RBC 4.01 L Hgb 12.2 L Hct 37.4 L MCV 93.3 MCH 30.4 MCHC 32.6 RDW Std Deviation 48.0 H RDW Coeff of Loretta 13.9 Plt Count 207 MPV 11.6 Immature Gran % (Auto) 0.600 Neut % (Auto) 84.3 H Lymph % (Auto) 6.0 L Hancock % (Auto) 8.9 Eos % (Auto) 0.1 Baso % (Auto) 0.1 Absolute Neuts (auto) 9.4 H Absolute Lymphs (auto) 0.67 L Nucleated RBC % 0 ESR 6 Sodium 136 Potassium 3.9 Chloride 100 Carbon Dioxide 29.0 Anion Gap 7 BUN 16 Creatinine 1.39 H Est GFR (MDRD) Af Amer 65 Est GFR (MDRD) Non-Af 54 L BUN/Creatinine Ratio 11.5 Glucose 94 Lactic Acid 2.2 H* Calcium 9.5 C-React Prot Ext Range < 2.90 Radiography Chest X-Ray - ED: Read by ED Physician (X-ray of the left great toe reveals evidence of osteomyelitis with destruction of the distal aspect of the distal phalanx of the left great toe. This is seen best on the oblique view. Independent reviewed interpreted by me at 1451) Diagnostic Testing: Clinical Impression(s) from Imaging Studies Toe X-Ray 06/26/23 14:34 IMPRESSION: Erosive changes are seen in the distal portion of the distal pharynx of the great toe suggestive of osteomyelitis. Soft tissue swelling. Electronically Signed: Jose Alberto Wing MD at 15:01 EST , Management Discussion w/another healthcare provider: Hospitalist and Dry Wall Nailer (Podiatry) Discharge Plan Dx/Rx/DC Orders Clinical Impression: Creatinine elevation, Osteomyelitis of great toe of left foot, PAD (peripheral artery disease), Acidosis, lactic, Anticoagulant long-term use, Venous insufficiency, Anemia in chronic illness, Leukocytosis Disposition Disposition: Acute Care Hospital [facility] Discharge Date/Time: 06/26/23 16:31
[2023-06-26 14:53] LABS: Lactic Acid 2.2 mmol/L (0.4-1.9)
[2023-06-26 15:15] LABS: Erythrocyte Sedimentation Rate 6 mm/hr (0-20)
--- NOTE | 2023-06-26 15:18 | HP.PCM.HOS_ITS ---
HPI - General General Date of Admission: 06/26/23 Date of Service: 06/26/23 Chief Complaint: L great toe wound. HPI Narrative The patient is a 67 y/o M w/ PMHx: HFpEF, COPD, HTN, HLD, Chronic AF, Restrictive lung disease, OPAL, Chronic peripheral neuropathy, Hypothyroidism, CKD stage [] who presents to the [facility] ED on 06/26/23 with history of ongoing left great toe wound with plain films at outside facility revealing osteomyelitis the day prior with chronic bilateral lymphedema complicating her presentation with referral to ED given concerning findings on film. Workup in the ED included T 98.7, heart rate 99, BP 122/69, respiratory rate 18, 96% on room air, CBC with a BC 11.1, hemoglobin 12.2, platelet 207 with left shift and lymphopenia, BMP with BUN/creatinine 16/1.39, lactic acid 2.2, CRP and ESR pending upon requested evaluation of patient, plain film of left foot with noted erosive changes are seen in the distal portion of the distal pharynx of the great toe suggestive of osteomyelitis, soft tissue swelling. [facility] Medical History (HFpEF) heart failure with preserved ejection fraction Arthritis of left hip Bone lesion Bone lesion COPD (chronic obstructive pulmonary disease) Edema Hyperinflation of lungs Hyperlipidemia Hyperparathyroidism Hypothyroidism Idiopathic hypertrophic subaortic stenosis Lesion of lumbar spine Lumbar degenerative disc disease Lumbar facet arthropathy Lumbar radiculopathy Nephrolithiasis Nonrheumatic mitral valve regurgitation Observed sleep apnea Peripheral neuropathy Permanent atrial fibrillation Pleural effusion Restrictive lung disease Home Medications spironolactone 25 mg tablet 25 mg PO BID diuretic 10/23/13 [History Last Taken 11/15/17] levothyroxine 125 mcg tablet 125 mcg PO DAILY thyroid 11/16/17 [History Last Taken 05/21/18 09:30 125 MCG] albuterol sulfate 90 mcg/actuation aerosol inhaler 2 puff inhalation Q4H PRN s hortness of breath or wheezing 10/24/22 [History Last Taken Unknown] calcitriol 0.25 mcg capsule 0.25 mcg PO DAILY 10/24/22 [History Last Taken Unknown] calcium gluconate 60 mg calcium (650 mg) tablet 60 mg PO DAILY 10/24/22 [History Last Taken Unknown] cyanocobalamin (vitamin B-12) 1,000 mcg tablet 1,000 mcg PO DAILY 10/24/22 [History Last Taken Unknown] lidocaine HCl 4 % topical cream (Aspercreme (lidocaine HCl)) 1 applic topical TID PRN pain 10/24/22 [History Last Taken Unknown] magnesium oxide 400 mg (241.3 mg magnesium) tablet 400 mg PO DAILY 10/24/22 [History Last Taken Unknown] metoprolol tartrate 100 mg tablet 50 mg PO BID 10/24/22 [History Last Taken Unknown] potassium chloride 10 mEq tablet,extended release 20 meq PO DAILY 10/24/22 [History Last Taken Unknown] rivaroxaban 20 mg tablet (Xarelto) 20 mg PO DAILY 10/24/22 [History Last Taken Unknown] ibandronate 150 mg tablet 150 mg PO QMONTH 11/12/22 [History Last Taken Unknown] diltiazem HCl 120 mg capsule,extended release 24 hr 120 mg PO DAILY 06/26/23 [History Last Taken Unknown] trazodone 100 mg tablet 100 mg PO QHS 06/26/23 [History Last Taken Unknown] Allergy/AdvReac Type Severity Reaction Status Date / Time Tetracyclines Allergy Swelling Verified 06/26/23 12:59 Family History Father Myocardial infarction Surgical History History of transesophageal echocardiography (JAMEE) Hx of cardiovascular stress test Hx of echocardiogram Hx of tonsillectomy Social History current occupational status: retired Smoking Status: Never smoker alcohol intake: never substance use type: does not use caffeine: Yes Type: carbonated beverages Vital Signs Vital Signs Vital Signs: 06/26/23 12:58 06/26/23 14:35 Temperature 97.4 F L 98.7 F Temperature Source Temporal Oral Pulse Rate 98 99 Respiratory Rate 16 18 Blood Pressure 132/106 H 122/69 H Blood Pressure Mean 114 86 Pulse Ox 96 96 Oxygen Delivery Method Room Air Room Air Weight Weight: 218 lb 4.122 oz Body Mass Index (BMI) 33.2 Results Lab / Micro Data 06/26/23 14:00 06/26/23 14:00 Labs: Laboratory Results - last 24 hr 06/26/23 14:00: WBC 11.1 H, RBC 4.01 L, Hgb 12.2 L, Hct 37.4 L, MCV 93.3, MCH 30.4, MCHC 32.6, RDW Std Deviation 48.0 H, RDW Coeff of Loretta 13.9, Plt Count 207, MPV 11.6, Immature Gran % (Auto) 0.600, Neut % (Auto) 84.3 H, Lymph % (Auto) 6.0 L, Karnes % (Auto) 8.9, Eos % (Auto) 0.1, Baso % (Auto) 0.1, Absolute Neuts (auto) 9.4 H, Absolute Lymphs (auto) 0.67 L, Nucleated RBC % 0, ESR 6, Sodium 136, Potassium 3.9, Chloride 100, Carbon Dioxide 29.0, Anion Gap 7, BUN 16, Creatinine 1.39 H, Est GFR (MDRD) Af Amer 65, Est GFR (MDRD) Non-Af 54 L, BUN/Creatinine Ratio 11.5, Glucose 94, Lactic Acid 2.2 H*, Calcium 9.5 Imagaing Radiology Impression Toe X-Ray 06/26/23 14:34 IMPRESSION: Erosive changes are seen in the distal portion of the distal pharynx of the great toe suggestive of osteomyelitis. Soft tissue swelling. Electronically Signed: Jose Alberto Wing MD at 15:01 EST ,
--- NOTE | 2023-06-26 15:18 | PCM.HP.STD ---
HPI - General General Date of Admission: 06/26/23 Date of Service: 06/26/23 Chief Complaint: L great toe wound. HPI Narrative The patient is a 67 y/o M w/ PMHx: BL LE Chronic lymphedema, Chronic anemia, Obesity, Hypothyroidism, HFpEF, COPD, HTN, HLD, Chronic AF, Restrictive lung disease, OPAL, Chronic peripheral neuropathy, Hypothyroidism, CKD stage II per GFR trending who presents to the [facility] ED on 06/26/23 with history of ongoing left great toe wound with PCP evaluation with plain film obtained per his physician at the [facility] with evidence of osteomyelitis with referral to the ED given concerns. Patient does have chronic bilateral lymphedema and states this is unchanged. He denies any specific pain to the left great toe but notes when he walks he has bilateral hip pain secondary to severe osteoarthritis. Workup in the ED included T 98.7, heart rate 99, BP 122/69, respiratory rate 18, 96% on room air, CBC with a BC 11.1, hemoglobin 12.2, platelet 207 with left shift and lymphopenia, BMP with BUN/creatinine 16/1.39, lactic acid 2.2, CRP and ESR pending upon requested evaluation of patient, plain film of left foot with noted erosive changes are seen in the distal portion of the distal pharynx of the great toe suggestive of osteomyelitis, soft tissue swelling. In the ED patient ministered IV Unasyn and IV vancomycin. ED discussed case with podiatry Dr. Lorenzo. [facility] Medical History (Updated 06/26/23 @ 16:[address] Crystal Emerson MD) (HFpEF) heart failure with preserved ejection fraction Arthritis of left hip Bone lesion Chronic anemia CKD (chronic kidney disease), stage II COPD (chronic obstructive pulmonary disease) Hyperlipidemia Hyperparathyroidism Hypothyroidism Idiopathic hypertrophic subaortic stenosis Lesion of lumbar spine Lumbar degenerative disc disease Lumbar facet arthropathy Lumbar radiculopathy Nephrolithiasis Nonrheumatic mitral valve regurgitation Observed sleep apnea Peripheral neuropathy Permanent atrial fibrillation Restrictive lung disease Home Medications spironolactone 25 mg tablet 25 mg PO BID diuretic 10/23/13 [History Last Taken 11/15/17] levothyroxine 125 mcg tablet 125 mcg PO DAILY thyroid 11/16/17 [History Last Taken 05/21/18 09:30 125 MCG] albuterol sulfate 90 mcg/actuation aerosol inhaler 2 puff inhalation Q4H PRN shortness of breath or wheezing 10/24/22 [History Last Taken Unknown] calcitriol 0.25 mcg capsule 0.25 mcg PO DAILY 10/24/22 [History Last Taken Unknown] calcium gluconate 60 mg calcium (650 mg) tablet 60 mg PO DAILY 10/24/22 [History Last Taken Unknown] cyanocobalamin (vitamin B-12) 1,000 mcg tablet 1,000 mcg PO DAILY 10/24/22 [History Last Taken Unknown] lidocaine HCl 4 % topical cream (Aspercreme (lidocaine HCl)) 1 applic topical TID PRN pain 10/24/22 [History Last Taken Unknown] magnesium oxide 400 mg (241.3 mg magnesium) tablet 400 mg PO DAILY 10/24/22 [History Last Taken Unknown] metoprolol tartrate 100 mg tablet 50 mg PO BID 10/24/22 [History Last Taken Unknown] potassium chloride 10 mEq tablet,extended release 20 meq PO DAILY 10/24/22 [History Last Taken Unknown] rivaroxaban 20 mg tablet (Xarelto) 20 mg PO DAILY 10/24/22 [History Last Taken Unknown] ibandronate 150 mg tablet 150 mg PO QMONTH 11/12/22 [History Last Taken Unknown] diltiazem HCl 120 mg capsule,extended release 24 hr 120 mg PO DAILY 06/26/23 [History Last Taken Unknown] trazodone 100 mg tablet 100 mg PO QHS 06/26/23 [History Last Taken Unknown] Allergy/AdvReac Type Severity Reaction Status Date / Time Tetracyclines Allergy Swelling Verified 06/26/23 12:59 Family History (Updated 06/26/23 @ 16:[address] Crystal Emerson MD) Father Myocardial infarction CAD (coronary artery disease) Heart disease Hypertension Mother Hypertension Diabetes Surgical History (Updated 06/26/23 @ 16:[address] Crystal Emerson MD) History of lung surgery History of surgery on lower extremity History of transesophageal echocardiography (JAMEE) Hx of cardiovascular stress test Hx of echocardiogram Hx of tonsillectomy Social History (Updated 06/26/23 @ 16:[address] Crystal Emerson MD) household members: none current occupational status: retired Smoking Status: Never smoker alcohol intake: never substance use type: does not use caffeine: Yes Type: carbonated beverages ROS ROS Narrative Admission Review of Systems: CONSTITUTIONAL: No weight loss, fever, chills, + weakness or fatigue. HEENT: Eyes: No visual loss, blurred vision, double vision or yellow sclerae. Ears, Nose, Throat: No hearing loss, sneezing, congestion, runny nose or sore throat. SKIN: No rash or itching, lesions, wounds except + for very staged ecchymoses, abrasions and recent left great toe distal tip wound. CARDIOVASCULAR: No chest pain, chest pressure or chest discomfort, palpitations, edema, orthopnea, syncopal events. RESPIRATORY: No shortness of breath, cough or sputum, wheezing, hemoptysis. GASTROINTESTINAL: No anorexia, nausea, vomiting or diarrhea, abdominal pain, melena, BRBPR. GENITOURINARY: No dysuria, frequency, urgency or retention. NEUROLOGICAL: No headache, dizziness, syncope, paralysis, ataxia, numbness or tingling in the extremities, focal weakness, change in bowel or bladder control, seizure. MUSCULOSKELETAL: + muscle, back pain, joint pain or stiffness. HEMATOLOGIC: + Anemia, easy bleeding/bruising. LYMPHATICS: No enlarged nodes. No history of splenectomy. PSYCHIATRIC: No history of depression or anxiety. ENDOCRINOLOGIC: No reports of sweating, cold or heat intolerance. No polyuria or polydipsia. ALLERGIES: No history of asthma, hives, eczema or rhinitis. Vital Signs Vital Signs Vital Signs: 06/26/23 12:58 06/26/23 14:35 Temperature 97.4 F L 98.7 F Temperature Source Temporal Oral Pulse Rate 98 99 Respiratory Rate 16 18 Blood Pressure 132/106 H 122/69 H Blood Pressure Mean 114 86 Pulse Ox 96 96 Oxygen Delivery Method Room Air Room Air Weight Weight: 218 lb 4.122 oz Body Mass Index (BMI) 33.2 Physical Exam Narrative Physical Examination: General: Awake, alert, oriented x 3 and cooperative, seated upright in the ED bed, denies any pain in his toe, notes pain primarily with walking in his hips secondary to severe arthritis. Skin: Normal color, normal turgor, no icterus, no cyanosis except for very staged ecchymoses, bilateral lower extremity venous stasis skin changes, distal left toe small wounds but no drainage and no marked erythema. HEENT: AT/NC, EOMI, PERRLA, MMM, no carotid bruits or JVD noted. Lungs: Mildly diminished, greater bases, appropriate effort, no rales, ronchi or wheezing. Heart: Irregular; no gallop, rub audible. Abdomen: Soft, obese, NTTP, ND, mildly hyperactive BS, no appreciated HSM. Extremities: No cyanosis, no clubbing, significant pedal to proximal lower extremity chronic lymphedema, see skin. Neurological: Patient awake, alert, oriented as noted, cognitive function intact; pupils equally reactive to light and accommodation, cranial nerves grossly normal, moving all 4 extremities, no focal deficits, strength moderately to severely globally decreased primarily secondary to underlying comorbidities. Psychiatric: Affect appears normal, no acute evidence of depressive or anxiety feelings. Results Lab / Micro Data 06/26/23 14:00 06/26/23 14:00 Labs: Laboratory Results - last 24 hr 06/26/23 14:00: WBC 11.1 H, RBC 4.01 L, Hgb 12.2 L, Hct 37.4 L, MCV 93.3, MCH 30.4, MCHC 32.6, RDW Std Deviation 48.0 H, RDW Coeff of Loretta 13.9, Plt Count 207, MPV 11.6, Immature Gran % (Auto) 0.600, Neut % (Auto) 84.3 H, Lymph % (Auto) 6.0 L, [place] % (Auto) 8.9, Eos % (Auto) 0.1, Baso % (Auto) 0.1, Absolute Neuts (auto) 9.4 H, Absolute Lymphs (auto) 0.67 L, Nucleated RBC % 0, ESR 6, Sodium 136, Potassium 3.9, Chloride 100, Carbon Dioxide 29.0, Anion Gap 7, BUN 16, Creatinine 1.39 H, Est GFR (MDRD) Af Amer 65, Est GFR (MDRD) Non-Af 54 L, BUN/Creatinine Ratio 11.5, Glucose 94, Lactic Acid 2.2 H*, Calcium 9.5 Imagaing Radiology Impression Toe X-Ray 06/26/23 14:34 IMPRESSION: Erosive changes are seen in the distal portion of the distal pharynx of the great toe suggestive of osteomyelitis. Soft tissue swelling. Electronically Signed: Jose Alberto Wing MD at 15:01 EST , Assessment & Plan Assessment/Plan (1) Osteomyelitis of great toe of left foot: PLAN: Plan The patient is a 67 y/o M w/ PMHx: BL LE Chronic lymphedema, Chronic anemia, Obesity, Hypothyroidism, HFpEF, COPD, HTN, HLD, Chronic AF, Restrictive lung disease, OPAL, Chronic peripheral neuropathy, Hypothyroidism, CKD stage II per GFR trending who presents to the [facility] ED on 06/26/23 with history of ongoing left great toe wound with PCP evaluation with plain film obtained per his physician at the [facility] with evidence of osteomyelitis with referral to the ED given concerns. #1. Left great toe wound with acute osteomyelitis: Will admit to [facility], maintain on IV vancomycin and Zosyn, given no discharge and a dry wound will not pursue cultures at this time but likely podiatry will send pathology once debridement is performed, ESR and CRP pending upon requested evaluation of patient, plan repeat CBC in AM, continue affected extremity elevation above heart when seated and in bed, OLY/PVRs requested, n.p.o. status after midnight in case of operative intervention needs. #2. PAD: Reported history, per report no history of any peripheral angioplasty or stenting, holding Xarelto temporarily as noted with resumption immediately once able, requesting OLY/PVR as noted, adding low-dose statin, continue hypertensive regimen. #3. Chronic Kidney Disease Stage II primarily per GFR trending however GFR mildly reduced today but previously primarily 60-80 range: Admission BUN/Cr 16/1.39, baseline renal function 0.9-1.2, repeat BMP in AM. #4. Chronic AF: We will continue to home with all end of regimen, holding home Xarelto with last dose the evening prior. #5. Chronic COPD/restrictive lung disease: From current list not on any chronic regimen, PRN albuterol, HOB, IS parameters. #6. Chronic peripheral neuropathy: Likely plays a significant role in patient's injury as noted above, not on any chronic regimen but if necessary could consider adding low-dose gabapentin. #7. HFpEF: Most recent echocardiogram noted 04/07/2018 with EF 65%, stage I diastolic dysfunction, severely enlarged LA, mild MVI, RVSP 49 mmHg with moderate pulmonary hypertension, mild ATIF, mildly dilated aortic root. Given history will only judiciously hydrate as needed. Temporarily holding patient home Xarelto as noted, continue metoprolol, spironolactone, not on ENRIQUE inhibitor/ARB, not on statin therapy. #8. Hypertension: Continue home regimen including diltiazem, spironolactone, metoprolol, PRN hydralazine. #9. Hyperlipidemia: Not on regimen, adding low-dose statin given presentation history, encourage continued outpatient follow-up. #10. Hypothyroidism: We will continue patient home levothyroxine regimen. #11. Chronic normocytic anemia: Admission hemoglobin 12.2, MCV 93.3, baseline hemoglobin 11-12, stable, continue to trend. #12. Obesity: Weight loss and lifestyle changes encouraged. #13. OPAL: CPAP nightly. #14. DVT prophylaxis: Will temporally hold patient home Xarelto regimen with last dose 06/25/2023 per podiatry request for possible operative needs. Resume once amenable. #15. CODE status: Patient HCPOA and living will are not in place but he notes his sister Mei would be his decision-maker if he was unable. Discussed CODE status at length including difference between FULL code, DNR-CCA and DNR-CC status. Following discussions about the differences in these status, requested Full Code status. Advanced Care Planning Face to Face Time: 16 minutes. Charges/Coding Visit Charges Inpatient E&M: 54157 Init Hosp L3 Procedures Hospitalists Procedures: 58682 Advncd Care Plan 30 Min
[2023-06-26] MEDS: Ampicillin/Sulbactam 3 GM in 0.9% Normal Saline (100mL MB+) 100 ML IV (15:33)
--- NOTE | 2023-06-26 15:34 | NURSING ---
MED SURG WHITE OSTEOMYELITIS LEFT GREAT TOE
[2023-06-26 15:51] LABS: CRP < 2.90 mg/L (0.0-3.0)
[2023-06-26] MEDS: Vancomycin HCl 2,000 MG in 0.9% Normal Saline (500mL Bag) 500 ML 250 MG IV (16:20)
[2023-06-26 16:30] VITALS: BP 96/66; PULSE 103; RESP 17; TEMP 37.1; O2SAT 99
--- OUTSIDE RECORDS SUMMARY | 2023-06-26 16:36 | XMS RPT_ITS | CCD ---
Author Name Unknown Address [address] [place] [address] Organization [facility] Care Team Providers Care Chuck Wagon Driver Name Role Phone ANNELIESE QUIÑONES Unavailable [facility] Unavailable Unavailable KIRT BETHEA Unavailable Unavailable ANNELIESE QUIÑONES JR Unavailable Unav ailable Gabriele Bethea Primary Care Provider [phone] MARCY MOCTEZUMA, GABRIELE Jiménez Primary Care Physician [phone] RUSTAM ISRAEL, DR BONILLA Primary Care Physician [phone] RUSTAM ISRAEL, DR BONILLA Primary Care Unavailable ROMAR DO, DR BONILLA Attending Unavailable ROMAR DO, DR BONILLA Attending Unavailable ROMAR DO, DR BONILLA Primary Care Unavailable ROMAR DO, DR BONILLA Attending Unavailable ROMAR DO, DR BONILLA Primary Care Unavailable ROMAR DO, DR BONILLA Attending Unavailable ROMAR DO, DR BONILLA Primary Care Unavailable ROMAR DO, DR BONILLA Primary Care Unavailable MEDINA THOMPSON MD Attending Unavailable Allergies Allergy Classification Reported Allergen(s) Allergy Type Date of Onset Reaction(s) Facility (11 sources) Tetracycline; Translations: [TETRACYCLINE] Drug Allergy 10-20-2008 [facility] Repository Medications Current Medications Medication Drug Class(es) Dates Sig (Normalized) Sig (Original) acetaminophen 325 mg / HYDROcodone bitartrate 5 mg oral tablet (2 sources) Opioid Agonist Start: 06-17-2023 take 1 tablet by mouth every six hours as needed for pain acetaminophen-hydr ocodone 325 mg-5 mg oral tablet Dose = 1 tab(s), Oral, q6h, PRN for pain, # 12 tab(s), 0 Refill(s), 95.2 Start Date: 06/17/23 Status: Ordered Anoro Ellipta 62.5 mcg-25 mcg/inh inhalation powder (1 source) Start: 02-14-2022 End: 08-13-2022 take 1 dose by inhalation once daily Anoro Ellipta 62.5 mcg-25 mcg/inh inhalation powder Dose = 1 puff(s), Inhalation, qDay, # 1 EA, 5 Refill(s), Pharmacy: [facility]/pharmacy #[id number], 170.2, cm, 02/14/22 13:23:00 EDT, Height Start Date: 02/14/22 Stop Date: 08/13/22 Status: Ordered atorvastatin 20 mg oral tablet (3 sources) HMG-CoA Reductase Inhibitor Start: 07-28-2019 atorvastatin 20 mg oral tablet Dose : 20 mg = 1 tab(s), Oral, qDay, # 90 tab(s), 0 Refill(s) Start Date: 07/28/19 Status: Ordered calcitriol 0.58826 mg oral capsule (8 sources) Vitamin D3 Analog Start: 09-25-2015 calcitriol 0.25 mcg oral capsule Dose : 0.25 mcg = 1 cap(s), Oral, Daily Start Date: 09/25/15 Status: Ordered calcium gluconate 650 mg oral tablet (8 sources) Start: 09-17-2019 calcium gluconate 650 mg oral tablet Dose : 650 mg = 1 tab(s), Oral, Daily, # 100 tab(s), 0 Refill(s) Start Date: 09/17/19 Status: Ordered 24 hr dilTIAZem hydrochloride 120 mg extended release oral capsule (8 sources) Calcium Channel Jaime Start: 12-23-2022 Cardizem CD 120 mg/24 hours oral capsule, extended release Dose : 120 mg = 1 cap(s), Oral, qDay, # 30 cap(s), 5 Refill(s), Pharmacy: [facility], 170.2, cm, 12/23/22 13:00:00 EDT, Height Start Date: 12/23/22 Status: Ordered Completed/Discontinued Medications Medication Drug Class(es) Dates Sig (Normalized) Sig (Original) Albuterol (3 sources) beta2-Adrenergic Agonist Start: 10-17-2022 End: 04-15-2023 take 2 puff(s) by inhalation every four hours as needed for wheezing Ventolin HFA MDI (90 mcg/inh) inhalation aerosol 2 puff(s), Inhalation, q4h, PRN Shortness of breath or wheezing, use with spacer chamber. Okay to substitute alternative brand if needed for insurance., # 1 EA, 5 Refill(s), Pharmacy: [facility], 170.2, cm, 10/17/22 14:33:00 EDT, Height, kg, 10/17/22 14:33:00 EDT, Dosing Weight Start Date: 10/17/22 Stop Date: 04/15/23 Status: Ordered Problems Active Problems Problem Classification Problem Date Documented Date Episodic/Chronic Calculus of urinary tract (5 sources) History of calculus of kidney 01-08-2022 Episodic Cardiac dysrhythmias (8 sources) Permanent atrial fibrillation 09-17-2019 Chronic Chronic obstructive pulmonary disease and bronchiectasis (3 sources) Chronic obstructive lung disease 02-14-2022 Chronic Coagulation and hemorrhagic disorders (1 source) Idiopathic thrombocytopenic purpura; Translations: [ITP (idiopathic thrombocytopenic purpura)] Onset: 0 10-04-2009 Chronic Congestive heart failure; nonhypertensive (9 sources) Heart failure with normal ejection fraction; Translations: [Unspecified diastolic (congestive) heart failure] Onset: 4 05-04-2021 Chronic Deficiency and other anemia (2 sources) Anemia 01-16-2023 Episodic Deficiency and other anemia (4 sources) Nutritional anemia 11-11-2022 Episodic Deficiency and other anemia (2 sources) Folate deficiency anemia, unspecified; Translations: [Folate deficiency anemia, unspecified] Onset: 4 Episodic Deficiency and other anemia (2 sources) Nutritional anemia, unspecified; Translations: [Nutritional anemia, unspecified] Onset: 3 Episodic Disorders of lipid metabolism (8 sources) Mixed hyperlipidemia 09-17-2019 Chronic E Codes: Fall (2 sources) Fall in home 07-03-2022 Essential hypertension (8 sources) Essential hypertension 09-17-2019 Chronic Heart valve disorders (8 sources) Non-rheumatic mitral regurgitation 09-17-2019 Chronic Neoplasms of unspecified nature or uncertain behavior (2 sources) Neoplasm of uncertain behavior of skin; Translations: [Neoplasm of uncertain behavior of skin] Onset: 4 Episodic Nonspecific chest pain (8 sources) Chest pain 03-28-2021 Episodic Nutritional deficiencies (6 sources) Cobalamin deficiency; Translations: [Folic acid deficiency] Onset: 3 10-21-2022 Episodic Osteoarthritis (6 sources) Primary osteoarthritis, left wrist; Translations: [Arthritis] Onset: 8 02-02-2021 Chronic Other acquired deformities (2 sources) Lesion of lumbar spine 10-17-2022 Episodic Other and unspecified benign neoplasm (2 sources) Melanocytic nevi, unspecified; Translations: [Melanocytic nevi, unspecified] Onset: 4 Episodic Other bone disease and musculoskeletal deformities (1 source) 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[place]], left hand; Translations: [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[place]), left hand] Onset: 8 Chronic Other bone disease and musculoskeletal deformities (1 source) Osteochondritis of the carpal lunate; Translations: [[place]'s disease, left] Onset: 8 04-28-2018 Chronic Other circulatory disease (2 sources) Wheeze - rhonchi 01-08-2022 Episodic Other circulatory disease (2 sources) Low blood pressure 04-18-2023 Episodic Other circulatory disease (2 sources) Hypotension, unspecified; Translations: [Hypotension, unspecified] Onset: 3 Episodic Other connective tissue disease (5 sources) Muscle weakness of limb 01-08-2022 Episodic Other connective tissue disease (5 sources) Pain in lower limb 01-08-2022 Episodic Other lower respiratory disease (4 sources) Air trapping 01-09-2022 Episodic Other lower respiratory disease (3 sources) Restrictive lung disease 02-14-2022 Episodic Other lower respiratory disease (2 sources) Hemoptysis 01-16-2023 Episodic Other nervous system disorders (2 sources) Peripheral nerve disease 05-21-2022 Chronic Other non-traumatic joint disorders (3 sources) Arthritis of hip 02-14-2022 Chronic Other non-traumatic joint disorders (2 sources) Shoulder pain 03-25-2022 Episodic Other non-traumatic joint disorders (1 source) Arthritis of left wrist; Translations: [Arthritis of left wrist] Onset: 8 04-28-2018 Other nutritional; endocrine; and metabolic disorders (8 sources) Morbid obesity 09-17-2019 Chronic Other nutritional; endocrine; and metabolic disorders (2 sources) Hyperbilirubinemia 04-21-2023 Chronic Other nutritional; endocrine; and metabolic disorders (2 sources) Other disorders of bilirubin metabolism; Translations: [Other disorders of bilirubin metabolism] Onset: 3 Chronic Other nutritional; endocrine; and metabolic disorders (8 sources) H/O: endocrine disorder 09-27-2020 Episodic Other screening for suspected conditions (not mental disorders or infectious disease) (5 sources) Platelet count below reference range; Translations: [Suspected malignant pigmented skin lesion] Onset: 9 10-20-2008 Episodic Kirstie-; endo-; and myocarditis; cardiomyopathy (except that caused by tuberculosis or sexually transmitted disease) (8 sources) Idiopathic hypertrophic subaortic stenosis 09-17-2019 Chronic Pleurisy; pneumothorax; pulmonary collapse (6 sources) Pleural effusion; Translations: [Bilateral pleural effusion] 01-09-2022 Episodic Residual codes; unclassified (8 sources) Obstructive sleep apnea syndrome 09-17-2019 Chronic Residual codes; unclassified (8 sources) Edema 07-22-2019 Episodic Residual codes; unclassified (8 sources) Edema of lower extremity 07-28-2019 Episodic Residual codes; unclassified (2 sources) Peripheral edema 06-19-2023 Episodic Residual codes; unclassified (2 sources) Edema, unspecified; Translations: [Edema, unspecified] Onset: 4 Episodic Rheumatoid arthritis and related disease (3 sources) Arthropathy of lumbar facet joint 02-14-2022 Chronic Spondylosis; intervertebral disc disorders; other back problems (3 sources) Degeneration of lumbar intervertebral disc 02-14-2022 Chronic Thyroid disorders (10 sources) Hypothyroidism; Translations: [Thyroid nodule] 07-22-2019 Chronic Unclassified (1 source) Unknown / UNK(Unknown) Onset: 8 Past or Other Problems Problem Classification Problem Date Documented Date Episodic/Chronic Deficiency and other anemia (1 source) Iron deficiency anemia; Translations: [FREEMAN (iron deficiency anemia)] Onset: 11-15-2010 11-15-2010 Episodic Unclassified (1 source) 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[place]), left hand Onset: 04-28-2018 Results Test Name Value Interpretation Reference Range Facil ity Encounters Encounter Date Encounter Type Care Provider Facility Start: 06-19-2023 End: 06-24-[address] CHAD EASTON DO Facility:B Start: 06-19-2023 End: 06-23-[address] CHAD EASTON DO [facility] Start: 06-17-2023 End: 06-22-[address] CHAD EASTON DO Facility:[facility] Start: 06-17-2023 End: 06-21-[address] CHAD EASTON DO [facility] Start: 04-25-2023 End: 04-30-[address] CHAD EASTON DO Facility:[facility] Start: 11-04-2022 End: 11-05-[address] CHAD EASTON DO Facility:[facility] Start: 08-08-2022 End: 08-09-[address] CHAD EASTON DO Facility:[facility] Start: 02-25-2022 End: 02-25-[address] HAILEY GUERRERO MD [facility] Start: 02-05-2022 End: 02-05-2022 Patient encounter procedure HARPREET GUTIERREZ [facility] Start: 01-08-2022 End: 01-08-[address] CHAD EASTON DO [facility] Start: 08-09-2021 End: 08-13-2021 Outreach Lab GABRIELE BETHEA MD 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 Start: 04-28-2018 End: 04-28-2018 Patient encounter procedure ANNELIESE QUIÑONES Facility:[facility] Start: 10-21-2008 End: 10-21-2008 Patient encounter procedure Byron Ramey Work Phone: [facility] Start: 10-21-2008 Results Only Byron Hoffman Sandra merino Work Phone: [facility] Procedures Date Procedure Procedure Detail Performing Clinician Start: 02-25-[address] YANIRA EASTON DO Plan of Treatment Date Care Activity Detail Author Start: 02-15-2020 Influenza vaccination INFLUENZA (#1) [facility] Start: 2019 ADVANCE DIRECTIVE DISCUSSION ADVANCE DIRECTIVE DISCUSSION [facility] Start: 2019 PNEUMOVAX AGE 65 AND OVER WITH 5YR LOOKBACK (#1) PNEUMOVAX AGE 65 AND OVER WITH 5YR LOOKBACK (#1) [facility] Start: 12-22-2011 DIABETES SCREEN DIABETES SCREEN [facility] Start: 2009 PROSTATE CANCER SCRE ENING DISCUSSION PROSTATE CANCER SCREENING DISCUSSION [facility] Start: 2004 SHINGRIX VACCINE (1 of 2) PAREKH GRIX VACCINE (1 of 2) [facility] Start: 2004 Tuberculosis screening COLOREC GREGORY CANCER SCREENING,SEE MODIFIER [facility] Start: 1989 LIPID SCREEN LIPID SCREEN [facility] Start: 1973 Urine microalbumin profile DTAP,TDAP ,TD (1 - Tdap) [facility] Immunizations Immunization Date Immunization Notes Care Provider Fa pedrito 04-18-2023 influenza, high dose seasonal, preservative-free; Translations: [Fluad Quadrivalent PF ] DR CHAD EASTON DO [facility] 07-03-2022 Pneumococcal conjuga te PCV20, polysaccharide [id number] conjugate, adjuvant, PF; Translations: [Prevnar 20] DR CHAD EASTON DO [facility] 03-21-2022 SARSCoV2 mRNA(rpypygdkphc28g+)biv al vac; Translations: [Pfizer-BioNTech COVID-19 (12y+) Bivalent Booster Vaccine PF] DR CHAD EASTON DO [facility] 03-21-2022 influenza, high dose seasonal, preservative-free DR CHAD EASTON DO [facility] 05-08-2021 influenza, high dose seasonal, preservative-free; Translations: [Fluad Quadrivalent PF ] DR HAILEY GUERRERO MD [facility] 12-07-2020 SARS-CoV-2 (COVID-19 ) mRNA-1273 vaccine GABRIELE BETHEA MD [facility] Payers Date Payer Category Payer Private Health Insurance [id number] 1955 Unknown [id number] [id number] 1955 Unknown [id number] [id number] 1955 Unknown [id number] [id number] [id number] 1954 Unknown [id number] 2.16.8 [id number] 1954 Unknown [id number] 2.16.8 [id number] 1955 Unknown [id number] [id number] Unknown [id number] Social History Date Type Detail Facility Start: 10-20-2008 End: 07-22-2019 Tobacco smoking status AZIS Never smoker [facility] Start: 10-20-2008 Alcohol intake Not Asked [facility] Sex Assigned At Not on file [facility] Sex Assigned At Male [facility] Clinical Notes 01-08-2022 LaboratoryLaboratoryLaboratoryLaboratoryLaboratoryLaboratoryLaboratoryRadiology Note Date & Type Note Facility 01-08-2022 [...] 01/08/2022 10:07:46 PM Ordering Provider: CHAD EASTON [facility] 01-08-2022 Note ORIGINAL EXAMINATION: TWO XRAY [...] 01/08/2022 10:07:46 PM Ordering Provider: CHAD EASTON [facility] Evaluation + Plan note Future Appointments Appointment Date:05/03/2021 01:15:00 PM Scheduled Provider:GABRIELE BETHEA MD Location:[facility] Appointment Type:PC OV Appointment Date:05/04/2021 10:15:00 AM Scheduled Provider: Location:[facility] Appointment Type:CV OV Future Scheduled TestsComplete Blood Count 11/27/20Complete Metabolic Panel 11/27/[address] [facility] Evaluation + Plan note Future Appointments Appointment Date:08/03/2021 02:00:00 PM Scheduled Provider:GABRIELE BETHEA MD Location:[facility] Appointment Type:PC OV Appointment Date:08/10/2021 10:00:00 AM Scheduled Provider: Location:[facility] Appointment Type:CV OV Future Scheduled TestsComplete Blood Count 11/27/20Complete Metabolic Panel 11/27/[address] [facility] Evaluation + Plan note Future Appointments Appointment Date:11/08/2021 03:00:00 PM Scheduled Provider:GABRIELE BETHEA MD Location:[facility] Appointment Type:PC OV Future Scheduled TestsUrinalysis 08/09/21N-Terminal proBNP 02/07/22Complete Blood Count 11/27/20Complete Metabolic Panel 11/27/[address] [facility] Evaluation + Plan note Future Appointments Appointment Date:02/13/2022 01:00:00 PM Scheduled Provider: Location:[facility] Appointment Type:CV OV Appointment Date:02/14/2022 01:30:00 PM Scheduled Provider:CHAD EASTON DO Location:[facility] Appointment Type:PC OV Follow Up Future Scheduled TestsUrinalysis 08/09/21N-Terminal proBNP 02/07/[address] [facility] Evaluation + Plan note Future Appointments Appointment Date:02/14/2022 01:30:00 PM Scheduled Provider:CHAD EASTON DO Location:[facility] Appointment Type:PC OV Follow Up Appointment Date:02/25/2022 02:00:00 PM Scheduled Provider: Location:[facility] Appointment Type:CV Procedure - AOH Echo Appointment Date:03/15/2022 11:30:00 AM Scheduled Provider: [facility] Appointment Type:CV OV Future Scheduled TestsUrinalysis 08/09/21N-Terminal proBNP 02/07/[address] [facility] Evaluation + Plan note Future Appointments Appointment Date:03/15/2022 11:30:00 AM Scheduled Provider: Location:[facility] Appointment Type:CV OV Appointment Date:03/21/2022 02:00:00 PM Scheduled Provider:CHAD EASTON DO Location:[facility] Appointment Type:PC OV Follow Up Future Scheduled TestsUrinalysis 08/09/21N-Terminal proBNP 02/07/[address] [facility] Evaluation + Plan note Future Appointments Appointment Date:06/25/2023 01:00:00 PM Scheduled Provider:CHAD EASTON DO Location:[facility] Appointment Type:PC OV Appointment Date:07/08/2023 02:00:00 PM Scheduled Provider:CHAD EASTON DO Location:[facility] Appointment Type:PC Wellness Medicare Appointment Date:08/25/2023 01:00:00 PM Scheduled Provider:MCKENZIE IRVING Location:[facility] Appointment Type:CV OV Future Scheduled TestsComplete Blood Count 06/19/23US Thyroid 06/19/[address] [facility] Hospital course Narrative No data available for this section [facility] Hospital Discharge instructions No data available for this section [facility] Progress note No data available for this section [facility] Summary Purpose Family History No Family History Records FoundNo Family History Records Found No data available for this section No data available for this section No Family History Records Found Advance Directives No Advanced Directives Records FoundNo Advanced Directives Records FoundNo Advanced Directives Records Found Additional Source Comments (unrecognized sect ion and content) No Status Records FoundNo Status Records FoundNo Status Records Found INFORMATION SOURCE (unrecogn ized section and content) DATE CREATED AUTHOR AUTHOR'S ORGANIZ ATION 05/24/2018 [facility] DATE CREATED AUTHOR AUTHOR'S ORGANIZ ATION 06/24/2023 [facility] ([place]) Source Comments (unrecognize d section and content) In the event this informatio n is protected by the Federal Confidentiality of Alcohol and Drug Abuse Patient Records regulations: The Federal rules restrict any use of the information to criminally investigate or prosecute any alcohol or drug abuse patient.[facility] Care Team (unrecognized sect ion and content) Care Team Personnel Name: GABRIELE BETHEA MD Position: P4 Physician - Primary Care Med Service: Active Provider Member Role: Primary Care Physician Address: Address: [address] [place] [address] Care Team Related Persons Name: SACHA COLUNGA Care Team Personnel Name: CHAD EASTON DO Position: P4 Physician - Primary Care Member Role: Primary Care Physician Address: Address: [address] [place] [address] Care Team Related Persons Name: SACHA COLUNGA Care Team Personnel Name: CHAD EASTON DO Position: P4 Physician - Primary Care Med Service: Active Provider Member Role: Primary Care Physician Address: Address: [address] [place] [address] Care Team Related Persons Name: SACHA COLUNGA Patient Care team informatio n (unrecognized section and content) Care Team Personnel Name: CHAD EASTON DO Position: P4 Physician - Primary Care Member Role: Primary Care Physician Address: Address: [address] [place] [address] Care Team Related Persons Name: SACHA COLUNGA Care Team Personnel Name: RUSTAM CHADOG ISRAEL Position: P4 Physician - Primary Care Member Role: Primary Care Physician Address: Address: [address] [place] [address] Care Team Related Persons Name: SACHA COLUNGA [...] BE BASED ON THE PRIMARY CLINICAL RECORDS. [facility] [employer] provides no warranty or guarantee of the accuracy or completeness of information in this document.
--- NOTE | 2023-06-26 16:50 | ART_ITS ---
Reason For Study: Osteo Lt Great Toe Procedure A bilateral lower extremity continuous wave Doppler with analog waveform analysis and ankle brachial indexes. Left Segmental Pressures Left posterior tibial artery = >254mmHg. Left dorsalis pedis artery = >254mmHg. Left digit = 81 mmHg. Right Segmental Pressures Right brachial= 94mmHg. Right posterior tibial artery = >254mmHg. Right dorsalis pedis artery = >254mmHg. Right digit = 82 mmHg. Indices The right ankle brachial index by the posterior tibial artery is NC. The right ankle brachial index by the dorsalis pedis is NC. The right digital-brachial index is 0.87. The left ankle brachial index by the posterior tibial artery is NC. The left ankle brachial index by the dorsalis pedis is NC. The left digital-brachial index is 0.86. VL/Ankle Brachial Index Interpretation Summary Right OLY not able to be obtained due to non-compressible vessels. TBI and Dopp ler/PVR waveforms of the right leg normal at rest. Left OLY not able to be obtained due to non-compressible vessels. TBI and Doppl er/PVR waveforms of the left leg normal at rest. Ordering Physician: Crystal Emerson Referring Physician: Jay Wahl Performed By: Mally Olvera RDCS/RVT
[2023-06-26 17:04] VITALS: BP 102/59; PULSE 104; RESP 16; TEMP 36.6; O2SAT 94; BMI 32.6
--- NOTE | 2023-06-26 17:57 | PCM.RX.CS ---
Consult Antibiotic Management Pharmacy has been consulted to manage selected antibiotic: Vancomycin Type of Intervention Type of Consult: New start Suspected Infection Suspected Infection: Osteomyelitis Prior Doses of Antibiotics Prior Doses of Antibiotics Received/Current Regimen: Vancomycin 2000 mg IV given 06/26 @ 1620 Labs Labs: Sodium 136 mmol/L (136-145) 06/26/23 14:00 Potassium 3.9 mmol/L (3.5-5.1) 06/26/23 14:00 Chloride 100 mmol/L (98-107) 06/26/23 14:00 Carbon Dioxide 29.0 mmol/L (21.0-32.0) 06/26/23 14:00 Anion Gap 7 (5-15) 06/26/23 14:00 BUN 16 mg/dL (7-18) 06/26/23 14:00 Creatinine 1.39 mg/dL (0.70-1.30) H 06/26/23 14:00 Est GFR (MDRD) Af Amer 65 mL/min (>60) 06/26/23 14:00 Est GFR (MDRD) Non-Af 54 mL/min (>60) L 06/26/23 14:00 BUN/Creatinine Ratio 11.5 RATIO (10-20) 06/26/23 14:00 Glucose 94 mg/dL (74-106) 06/26/23 14:00 Dosing Weight Weight used for dosin.5 kg Estimated Creatinine Clearance Estimated Creatinine Clearance: ~57 Goal Trough Goal Trough: 15-20 mcg/mL Pharmacy Plan for Drug Dosing Pharmacy Plan for Drug Dosing: Vancomycin 2000 mg IV x1 followed by 1000 mg Q12H based on weight and renal function Pharmacy Service will continue to monitor and adjust dosing as required. Follow-Up Labs Follow-Up Labs: Trough: Vancomycin Date/Time Labs Ordered Labs to be done on [date and time ordered]: 06/28/23 @ [id number]
[2023-06-26 18:11] LABS: Reflex Lactate? Y
--- NOTE | 2023-06-26 18:13 | PCM.CONS.GEN ---
Assessment & Plan Assessment/Plan (1) IGTN (ingrowing toe nail): (2) Cellulitis of left toe: (3) Chronic pain of toe of left foot: (4) PAD (peripheral artery disease): (5) Venous insufficiency: (6) Anticoagulant long-term use: (7) HTN (hypertension): QUALIFIERS: Hypertension type: essential hypertension Qualified Code(s): I10 - Essential (primary) hypertension PLAN: Plan Patient seen and evaluated I examined the left hallux which does demonstrate nail spicule present with localized rubor without purulent drainage. Labial tissue of the lateral border of the left hallux nail does overgrow causing embedding of nail spicule with pain to palpation at the distal lateral border. WBC. 11.1, ESR 6, CRP < 2.90. Currently on IV Unasyn and vancomycin Radiographs reviewed demonstrating some erosive changes of the distal phalanx of the left hallux suggestive of osteomyelitis. I have independently reviewed these radiographic images and do feel these are erosive changes however highly suspect of pressure changes secondary to hammertoe type deformity of the left hallux. Given review of diagnostic data, radiographic imaging, and physical exam findings, I do not feel patient has acute osteomyelitis of the distal phalanx. No dressings applied to digit at this time. I discussed all options with the patient this evening consisting of slant back procedure to remove offending nail border vs temporary nail avulsion of the lateral border vs matrixectomy on the lateral border of the left hallux nail. Discussed with patient that I will return with a nail nipper to remove the offending nail border tomorrow. And we will continue to monitor. Patient is in agreement with this plan. Given history of peripheral vascular disease will obtain LEAS for further evaluation of healing potential in preparation for matrixectomy of the lateral border of the left hallux. Medicine team currently following for medical management, they are appreciated. At this time plan is to remove the offending border of the ingrown toenail and would recommend patient receive matrixectomy of the offending nail border in outpatient setting. Podiatry will continue to follow. Randall Lorenzo Jr. D.P.M. [facility] [phone] HPI Consult Data Date of Consult: 06/26/23 HPI Narrative Reason for Consultation: Cellulitis left hallux HPI Narrative: YASMINE THOMAS, is a 67 M with PMHx of chronic peripheral neuropathy, CKD stage II, COPD, HTN, HLD, HFpEF, hypothyroidism, bilateral lower extremity chronic lymphedema, chronic anemia, obesity, and PVD. He presents to [facility] on 04/16/2024 with complaint of left hallux pain and redness about the nail and distal hallux. He reports seeing PCP for left great toe wound and had radiographs obtained by physician at [facility] demonstrating evidence of osteomyelitis and was referred to the ED. He states that he did see Dr. Junior a few weeks ago for a nail debridement and now has some pain to the lateral aspect of the hallux nail border with an irregular skin fold and localized redness of the distal hallux. He denies any specific pain at rest to the left hallux however does note that if pressed upon or walking in shoe gear toe does get sore. Workup in ED was performed with plain film radiograph demonstrating erosive bone changes of the distal portion of the left hallux suggestive of osteomyelitis with some soft tissue swelling. WBC 11.1, ESR 6, CRP < 2.90, BP 122/69, respiratory rate 18, O2 sat 96% on room air. He was empirically started on Unasyn and vancomycin. He was consulted to podiatry for further evaluation and workup for suspected osteomyelitis. [facility] Medical History (Updated 06/26/23 @ 18:[address] Randall Lorenzo DPM) (HFpEF) heart failure with preserved ejection fraction Arthritis of left hip Asthma Atrial fibrillation BiPAP (biphasic positive airway pressure) dependence Bone lesion Chronic anemia Chronic pain CKD (chronic kidney disease), stage II COPD (chronic obstructive pulmonary disease) Hyperlipidemia Hyperparathyroidism Hypothyroidism Idiopathic hypertrophic subaortic stenosis Lesion of lumbar spine Lumbar degenerative disc disease Lumbar facet arthropathy Lumbar radiculopathy Nephrolithiasis Nonrheumatic mitral valve regurgitation Observed sleep apnea Peripheral neuropathy Permanent atrial fibrillation Restrictive lung disease Sleep apnea Home Medications spironolactone 25 mg tablet 25 mg PO BID diuretic 10/23/13 [History Last Taken 11/15/17] levothyroxine 125 mcg tablet 125 mcg PO DAILY thyroid 11/16/17 [History Last Taken 05/21/18 09:30 125 MCG] albuterol sulfate 90 mcg/actuation aerosol inhaler 2 puff inhalation Q4H PRN shortness of breath or wheezing 10/24/22 [History Last Taken Unknown] calcitriol 0.25 mcg capsule 0.25 mcg PO DAILY 10/24/22 [History Last Taken Unknown] calcium gluconate 60 mg calcium (650 mg) tablet 60 mg PO DAILY 10/24/22 [History Last Taken Unknown] cyanocobalamin (vitamin B-12) 1,000 mcg tablet 1,000 mcg PO DAILY 10/24/22 [History Last Taken Unknown] lidocaine HCl 4 % topical cream (Aspercreme (lidocaine HCl)) 1 applic topical TID PRN pain 10/24/22 [History Last Taken Unknown] magnesium oxide 400 mg (241.3 mg magnesium) tablet 400 mg PO DAILY 10/24/22 [History Last Taken Unknown] metoprolol tartrate 100 mg tablet 50 mg PO BID 10/24/22 [History Last Taken Unknown] potassium chloride 10 mEq tablet,extended release 20 meq PO DAILY 10/24/22 [History Last Taken Unknown] rivaroxaban 20 mg tablet (Xarelto) 20 mg PO DAILY 10/24/22 [History Last Taken Unknown] ibandronate 150 mg tablet 150 mg PO QMONTH 11/12/22 [History Last Taken Unknown] diltiazem HCl 120 mg capsule,extended release 24 hr 120 mg PO DAILY 06/26/23 [History Last Taken Unknown] trazodone 100 mg tablet 100 mg PO QHS 06/26/23 [History Last Taken Unknown] Allergy/AdvReac Type Severity Reaction Status Date / Time Tetracyclines Allergy Swelling Verified 06/26/23 12:59 Family History (Updated 06/26/23 @ 16:[address] Crystal Emerson MD) Father Myocardial infarction CAD (coronary artery disease) Heart disease Hypertension Mother Hypertension Diabetes Surgical History History of lung surgery History of surgery on lower extremity History of transesophageal echocardiography (JAMEE) Hx of cardiovascular stress test Hx of echocardiogram Hx of tonsillectomy Social History (Updated 06/26/23 @ 16:[address] Crystal Emerson MD) household members: none current occupational status: retired Smoking Status: Never smoker alcohol intake: never substance use type: does not use caffeine: Yes Type: carbonated beverages ROS Constitutional Constitutional: Denies body ache(s), chills, fatigue or fever(s) Eyes Eyes: Denies diplopia, eye pain or loss of vision ENT HEENT: Denies dysphagia, nasal congestion, nasal discharge or sore throat Cardiovascular Cardiovascular: Denies chest pain, cold extremities or palpitations Respiratory/Chest Respiratory/Chest: Denies chest congestion, cough, dyspnea or wheezing Gastrointestinal Gastrointestinal: Denies abdominal pain, constipation, diarrhea, nausea or vomiting Genitourinary Genitourinary: Denies dysuria, hematuria, urinary frequency, urinary hesitancy, urinary incontinence or urinary urgency Musculoskeletal Musculoskeletal: Denies joint pain, joint stiffness or joint swelling Integumentary Integumentary: Denies jaundice, lesions, pruritus or rash Neurologic Neurologic: Denies dizziness, numbness or seizures Psychiatric Psychiatric: Denies anxiety or depression Endocrine Endocrinology: Denies cold intolerance, heat intolerance, polydipsia or polyuria Hematologic/Lymphatic Hematologic/Lymphatic: Reports anemia, easy bleeding and easy bruising Allergic/Immunologic Allergic/Immunologic: Denies rhinitis, hives, urticaria or wheezing Physical Exam Const alert, oriented x3 and no apparent distress General Appearance: cooperative HEENT normocephalic Eyes Eyes Narrative: Wears glasses General Eye: normal appearance of both eyes Neck General: normal visual inspection Lymph Lymphatic: no lymphadenopathy noted and no lymphedema noted Resp normal respiratory effort Cardio regular rate and regular rhythm Extremity normal capillary refill, no joint enlargement, no calf tenderness and no pedal edema Extremity Narrative: DP and PT pulses palpable bilateral. CFT less than 3 seconds to digits bilateral. Bilateral proximal lower extremity and pedal edema noted. Dermatological: There is localized rubor about the distal left hallux without increased temperature versus surrounding digits. There is various points of resolving ecchymosis to the distal hallux with skin peeling. Left hallux nail is thickened and incurvated with lateral border nail spicule present with pain to palpation of site. There is a skin fold covering the nail spicule consistent with ingrown toenail. No purulent drainage, no malodor, no palpable fluctuance/bogginess noted, no visible abscess formation, no lymphangitic streaking. Musculoskeletal: Muscle strength 5 of 5 age-appropriate. There is decreased range of motion of of the ankle joint with the knee extended without pain or crepitus. Full, smooth, pain-free range of motion of the subtalar joint, midtarsal joint, and first metatarsophalangeal joint. There is some pain to palpation at the distal lateral border of the left hallux at the site of ingrown toenail. Skin no rashes or lesions noted, skin turgor normal and no jaundice Neuro moves all extremities Lab / Micro Data 06/26/23 14:00 06/26/23 14:00 Labs: Laboratory Results - last 24 hr 06/26/23 14:00: WBC 11.1 H, RBC 4.01 L, Hgb 12.2 L, Hct 37.4 L, MCV 93.3, MCH 30.4, MCHC 32.6, RDW Std Deviation 48.0 H, RDW Coeff of Loretta 13.9, Plt Count 207, MPV 11.6, Immature Gran % (Auto) 0.600, Neut % (Auto) 84.3 H, Lymph % (Auto) 6.0 L, [place] % (Auto) 8.9, Eos % (Auto) 0.1, Baso % (Auto) 0.1, Absolute Neuts (auto) 9.4 H, Absolute Lymphs (auto) 0.67 L, Nucleated RBC % 0, ESR 6, Sodium 136, Potassium 3.9, Chloride 100, Carbon Dioxide 29.0, Anion Gap 7, BUN 16, Creatinine 1.39 H, Est GFR (MDRD) Af Amer 65, Est GFR (MDRD) Non-Af 54 L, BUN/Creatinine Ratio 11.5, Glucose 94, Lactic Acid 2.2 H*, Calcium 9.5, C-React Prot Ext Range < 2.90 Imagaing Radiology Impression Toe X-Ray 06/26/23 14:34 IMPRESSION: Erosive changes are seen in the distal portion of the distal pharynx of the great toe suggestive of osteomyelitis. Soft tissue swelling. Electronically Signed: Jose Alberto Wing MD at 15:01 EST ,
[2023-06-26 19:10] LABS: Lactic Acid 1.1 mmol/L (0.4-1.9)
--- NOTE | 2023-06-26 21:17 | CPS ---
Pt refused PAP therapy for the night.
[2023-06-26 21:30] VITALS: BP 98/60; PULSE 72; RESP 18; TEMP 36.6; O2SAT 96
[2023-06-26] MEDS: Spironolactone 25 MG Tablet PO (22:03)
[2023-06-26] MEDS: traZODone 100 MG Tablet PO (22:03)
[2023-06-26 22:05] VITALS: PULSE 97
[2023-06-26] MEDS: Metoprolol Tartrate 50 MG Tablet PO (22:05)
[2023-06-26] MEDS: Atorvastatin Calcium 20 MG Tablet PO (22:07)
[2023-06-26] MEDS: Piperacil/Tazobactam 3.375 GM in 0.9% Normal Saline (50mL MB+) 50 ML IV (22:11)
[2023-06-27] MEDS: Vancomycin IV 1,000 MG/200 ML BAG 200 MG IV ×2 (04:29→17:40)
[2023-06-27 04:30] VITALS: BP 94/70; PULSE 100; RESP 16; TEMP 36.8; O2SAT 97
[2023-06-27 05:18] LABS: Absolute Lymphocyte Count 0.92 X10^3/uL (0.83-4.51); Basophil# 0.01 X10^3/uL; Basophil% 0.1 % (0-1); Eosinophil# 0.01 X10^3/uL; Eosinophils% 0.1 % (0-5); Hematocrit 32.1 % (40-54); Hemoglobin 10.3 g/dL (13.0-16.5); Lymphocyte # 0.92 X10^3/ul (0.83-4.51); Lymphocyte % 13.7 % (19-41); Mean Corp Hgb Conc 32.1 g/dL (32-36); Mean Corpuscular Hgb 30.4 pg (27.0-32.0); Mean Corpuscular Volume 94.7 fL (80-94); Mean Platelet Vol. 12.2 fl (6.2-12.0); Monocyte# 0.76 X10^3/uL; Monocyte% 11.3 % (0-10); NRBC Flagged by Analyzer 0 % (0-5); Neutrophil # 4.97 X10^3/uL (2.7-7.7); Neutrophil % 74.4 % (47-70); Platelet Count 158 K/mm3 (150-450); RBC Distribution Width CV 14.1 % (11.6-14.6); Red Blood Count 3.39 M/mm3 (4.6-6.2); White Blood Count 6.7 K/mm3 (4.4-11.0)
[2023-06-27 05:43] LABS: ALB/GLOB Ratio 1.1 RATIO (0.9-2.4); AST(SGOT) 17 U/L (15-37); Alanine Aminotransfer ALT/SGPT 15 U/L (16-61); Albumin, Serum 2.9 g/dL (3.2-5.0); Alkaline Phosphatase 61 U/L (45-117); Anion Gap 6 (5-15); BUN 12 mg/dL (7-18); BUN/Creat Ratio 10.7 RATIO (10-20); Calcium,Total 8.3 mg/dL (8.5-10.1); Chloride 104 mmol/L (98-107); Cholesterol 92 mg/dL (200); Creatinine, Serum 1.12 mg/dL (0.70-1.30); EST Glomerular Filtration Rate 69 mL/min (>60); Est Glom Filt Rate - Afr Amer 84 mL/min (>60); Estimated Creatinine Clearance 71.47 ml/min; Globulin 2.7 g/dL (2.2-4.2); Glucose 82 mg/dL (74-106); High Density Lipoprotein 52 mg/dL; Potassium 3.9 mmol/L (3.5-5.1); Protein, Total 5.6 g/dL (6.4-8.2); Sodium Level 138 mmol/L (136-145); Triglycerides 28 mg/dL; Very Low Density Lipoprotein 6 mg/dL (5-40)
[2023-06-27] MEDS: Levothyroxine 125 MCG Tablet PO (05:47)
[2023-06-27] MEDS: Piperacil/Tazobactam 3.375 GM in 0.9% Normal Saline (50mL MB+) 50 ML IV ×3 (05:47→22:48)
[2023-06-27 06:00] VITALS: BMI 32.9
[2023-06-27 09:07] LABS: Hemoglobin A1c 4.6 % (3.8-5.6)
[2023-06-27 09:52] VITALS: BP 99/68; PULSE 70; RESP 16; TEMP 36.7; O2SAT 95
[2023-06-27 09:57] VITALS: PULSE 70
[2023-06-27] MEDS: Magnesium Chloride 64 MG Delay Rel.Tablet 128 MG PO (09:57)
[2023-06-27] MEDS: Metoprolol Tartrate 50 MG Tablet PO ×2 (09:57→20:19)
[2023-06-27] MEDS: Potassium Chloride Oral Tablet 20 MEQ PO (09:57)
[2023-06-27] MEDS: Calcitriol 0.25 MCG Capsule PO (09:59)
--- NOTE | 2023-06-27 10:31 | PN.HOSP_ITS ---
Reason for Visit Reason for Visit: Diagnoses Other chronic pain (06/26/23) Essential (primary) hypertension (06/26/23) Peripheral vascular disease, unspecified (06/26/23) Venous insufficiency (chronic) (peripheral) (06/26/23) Cellulitis of left toe (06/26/23) Ingrowing nail (06/26/23) Pain in left toe(s) (06/26/23) Osteomyelitis, unspecified (06/26/23) detention (current) use of anticoagulants (06/26/23) Objective Data Objective Data Vital Signs: Vital Signs Temp Pulse Resp BP Pulse Ox O2 Del Method O2 Flow Rate 98.1 F 70 16 99/68 95 Room Air 2 06/27/23 09:52 06/27/23 09:57 06/27/23 09:52 06/27/23 09:52 06/27/23 09:52 06/27/23 09:52 06/27/23 09:52 Oxygen Flow Rate (L/min) 2 Oxygen Delivery Method Room Air Weight: 217 lb 5 oz Body Mass Index (BMI) 32.9 Intake & Output: Intake and Output for Last 24 Hours 06/25/23 06/26/23 06/27/23 23:59 23:59 23:59 Intake Total 652 / 652 300 / 300 Balance 652 / 652 300 / 300 Lab / Micro Data 06/27/23 04:05 06/27/23 04:05 Labs: Laboratory Results - last 24 hr 06/26/23 14:00: WBC 11.1 H, RBC 4.01 L, Hgb 12.2 L, Hct 37.4 L, MCV 93.3, MCH 30.4, MCHC 32.6, RDW Std Deviation 48.0 H, RDW Coeff of Loretta 13.9, Plt Count 207, MPV 11.6, Immature Gran % (Auto) 0.600, Neut % (Auto) 84.3 H, Lymph % (Auto) 6.0 L, Williams % (Auto) 8.9, Eos % (Auto) 0.1, Baso % (Auto) 0.1, Absolute Neuts (auto) 9.4 H, Absolute Lymphs (auto) 0.67 L, Nucleated RBC % 0, ESR 6, Sodium 136, Potassium 3.9, Chloride 100, Carbon Dioxide 29.0, Anion Gap 7, BUN 16, Creatinine 1.39 H, Est GFR (MDRD) Af Amer 65, Est GFR (MDRD) Non-Af 54 L, BUN/Creatinine Ratio 11.5, Glucose 94, Lactic Acid 2.2 H*, Calcium 9.5, C-React Prot Ext Range < 2.90 06/26/23 18:32: Lactic Acid 1.1 06/27/23 04:05: WBC 6.7, RBC 3.39 L, Hgb 10.3 L, Hct 32.1 L, MCV 94.7 H, MCH 30.4, MCHC 32.1, RDW Std Deviation 49.0 H, RDW Coeff of Loretta 14.1, Plt Count 158, MPV 12.2 H, Immature Gran % (Auto) 0.400, Neut % (Auto) 74.4 H, Lymph % (Auto) 13.7 L, Williams % (Auto) 11.3 H, Eos % (Auto) 0.1, Baso % (Auto) 0.1, Absolute Neuts (auto) 5.0, Absolute Lymphs (auto) 0.92, Nucleated RBC % 0, Sodium 138, Potassium 3.9, Chloride 104, Carbon Dioxide 28.0, Anion Gap 6, BUN 12, Creatinine 1.12, Estim Creat Clear Calc 71.47, Est GFR (MDRD) Af Amer 84, Est GFR (MDRD) Non-Af 69, BUN/Creatinine Ratio 10.7, Glucose 82, Hemoglobin A1c 4.6, Calcium 8.3 L, Total Bilirubin 0.70, AST 17, ALT 15 L, Alkaline Phosphatase 61, Total Protein 5.6 L, Albumin 2.9 L, Globulin 2.7, Albumin/Globulin Ratio 1.1, Triglycerides 28, Cholesterol 92, LDL Cholesterol 34, VLDL Cholesterol 6, HDL Cholesterol 52 Radiography Diagnostic Testing: Radiology Impression Toe X-Ray 06/26/23 14:34 IMPRESSION: Erosive changes are seen in the distal portion of the distal pharynx of the great toe suggestive of osteomyelitis. Soft tissue swelling. Physical Exam Narrative Seen and examined. Patient has left great toe osteomyelitis. Complain of mild pain. No open ulcer but chronic pain and cellulitis. Ingrowing toenail. Physical exam: General: Alert, Oriented x3, Cooperative, obesity grade 3 BMI 33.0 kg/m? HEENT: Atraumatic, PERRLA, EOMI, Normocephalic Oral: No Gingival or Mucosal Lesions/ Ulcerations Neck: Supple, No JVD, Negative Carotid Bruits Lungs: Air entry diminished in bilateral lung bases. No crepitation/rhonchi Cardiovascular: Regular rate, Regular Rhythm, Normal S1, Normal S2, No murmurs Abdomen: Bowel Sounds Present, Soft, Non Tender, Non-Distended : No renal angle tenderness. No suprapubic tenderness. Extremities: No edema, Capillary Refill Less than 3 Seconds Skin: No rashes, No breakdown Musculoskeletal: Mild tenderness present over left great toe. Ingrown toenail of left hallux. Tenderness present over left toenail but no open ulcer. Neurological: Cranial nerves II-XII grossly intact, DTR 2+/4. Bilateral peripheral neuropathy bilateral feet. Position sense and gross sensation to touch and temperature absent in toes and feet Psych/Mental Status: Normal Affect, Appropriate. Assessment & Plan Assessment/Plan (1) Osteomyelitis of great toe of left foot: PLAN: Plan The patient is a 67 y/o M came to ED for left great toe wound and he states there is osteomyelitis. Patient had x-ray day before ED visit in outside facility was not reported osteomyelitis. Patient also had bilateral lymphedema, on diuretics. Chronic peripheral neuropathy. #1. Left great toe wound with acute osteomyelitis: Patient is admitted on MedSurg floor. Labs reviewed. X-ray done in ED is shows bony erosive changes, suggestive of osteomyelitis of distal portion of left great toe. Soft tissue swelling. Rocael wrap bandage and leg elevation. ESR and CRP normal. Lactic acid is mildly elevated. Patient's did not had fever or other criteria for SIRS or qSOFA score and does not qualify for sepsis. Sepsis ruled out. Vascular study, OLY pending. On IV antibiotics. Rubbing Bed Operator is consulted.On IV vancomycin and Zosyn. A1c 4.6. Diabetes or prediabetes ruled out #2. PAD: Reported history, per report no history of any peripheral angioplasty or stenting, holding Xarelto temporarily as noted with resumption immediately once able, requesting OLY/PVR as noted, adding low-dose statin, continue hyperte nsive regimen. #3. Chronic Kidney Disease Stage II primarily per GFR trending however GFR mildly reduced today but previously primarily 60-80 range: Admission BUN/Cr 16/1.39, baseline renal function 0.9-1.2, repeat BUN and creatinine normal 05/16.12. #4. Chronic AF: We will continue to home with all end of regimen, holding home Xarelto with last dose the evening prior. #5. Chronic COPD/restrictive lung disease: From current list not on any chronic regimen, PRN albuterol, HOB, IS parameters. #6. Chronic peripheral neuropathy: Likely plays a significant role in patient's injury as noted above, not on any chronic regimen but if necessary could consider adding low-dose gabapentin. #7. HFpEF: Most recent echocardiogram noted 04/07/2018 with EF 65%, stage I diastolic dysfunction, severely enlarged LA, mild MVI, RVSP 49 mmHg with moderate pulmonary hypertension, mild ATIF, mildly dilated aortic root. Given history will only judiciously hydrate as needed. Temporarily holding patient home Xarelto as noted, continue metoprolol, spironolactone, not on ROCAEL inhibitor/ARB, not on statin therapy. #8. Hypertension: Continue home regimen including diltiazem, spironolactone, metoprolol, PRN hydralazine. #9. History of dyslipidemia : Fasting profile shows LDL in normal range HDL normal. #10. Hypothyroidism: continue patient home levothyroxine regimen. #11. Chronic normocytic anemia: Admission hemoglobin 12.2, MCV 93.3, baseline hemoglobin 11-12, stable, continue to trend. #12. Obesity: Weight loss and lifestyle changes encouraged. #13. OPAL: CPAP nightly. #14. DVT prophylaxis: Will temporally hold patient home Xarelto regimen with last dose 06/25/2023 per podiatry request for possible operative needs. Resume once amenable. #15. CODE status: Patient HCPOA and living will are not in place but he notes his sister Mei would be his decision-maker if he was unable. Discussed CODE status at length including difference between FULL code, DNR-CCA and DNR-CC stat us. Following discussions about the differences in these status, requested Full Code status. Advanced Care Planning Face to Face Time: 16 minutes. 06/26/23 14:00: WBC 11.1 H, RBC 4.01 L, Hgb 12.2 L, Hct 37.4 L, MCV 93.3, MCH 30.4, MCHC 32.6, RDW Std Deviation 48.0 H, RDW Coeff of Loretta 13.9, Plt Count 207, MPV 11.6, Immature Gran % (Auto) 0.600, Neut % (Auto) 84.3 H, Lymph % (Auto) 6.0 L, Williams % (Auto) 8.9, Eos % (Auto) 0.1, Baso % (Auto) 0.1, Absolute Neuts (auto) 9.4 H, Absolute Lymphs (auto) 0.67 L, Nucleated RBC % 0, ESR 6, Sodium 136, Potassium 3.9, Chloride 100, Carbon Dioxide 29.0, Anion Gap 7, BUN 16, Creatinine 1.39 H, Est GFR (MDRD) Af Amer 65, Est GFR (MDRD) Non-Af 54 L, BUN/Creatinine Ratio 11.5, Glucose 94, Lactic Acid 2.2 H*, Calcium 9.5, C-React Prot Ext Range < 2.90 06/26/23 18:32: Lactic Acid 1.1 06/27/23 04:05: WBC 6.7, RBC 3.39 L, Hgb 10.3 L, Hct 32.1 L, MCV 94.7 H, MCH 30.4, MCHC 32.1, RDW Std Deviation 49.0 H, RDW Coeff of Loretta 14.1, Plt Count 158, MPV 12.2 H, Immature Gran % (Auto) 0.400, Neut % (Auto) 74.4 H, Lymph % (Auto) 13.7 L, Williams % (Auto) 11.3 H, Eos % (Auto) 0.1, Baso % (Auto) 0.1, Absolute Neuts (auto) 5.0, Absolute Lymphs (auto) 0.92, Nucleated RBC % 0, Sodium 138, Potassium 3.9, Chloride 104, Carbon Dioxide 28.0, Anion Gap 6, BUN 12, Creatinine 1.12, Estim Creat Clear Calc 71.47, Est GFR (MDRD) Af Amer 84, Est GFR (MDRD) Non-Af 69, BUN/Creatinine Ratio 10.7, Glucose 82, Hemoglobin A1c 4.6, Calcium 8.3 L, Total Bilirubin 0.70, AST 17, ALT 15 L, Alkaline Phosphatase 61, Total Protein 5.6 L, Albumin 2.9 L, Globulin 2.7, Albumin/Globulin Ratio 1.1, Triglycerides 28, Cholesterol 92, LDL Cholesterol 34, VLDL Cholesterol 6, HDL Cholesterol 52 Charges/Coding Visit Charges Inpatient E&M: 43992 Subs Hosp L2
--- NOTE | 2023-06-27 13:15 | CASEMGMT ---
SHAI PRIETO Assessment Face to Face with patient for initial transition planning/care coordination assessment. SHAI PRIETO introduced self and role at [facility], pt voices understanding. Pt is A&Ox4 and is resting comfortably in the chair and is calm. Care providers, pharmacy, and demographics verified. Admitting dx: Lt Great Toe Osteomyelitis LACE Strata: 3 PCP: [facility] Specialists: Pt states he sees a compliance officer at [facility] in [place]. Pt also states he sees A Neurologist (Marcell Thompson) at the same facility. Pt also sees Dr. Junior. Pt also sees Dr. Dalton Clarke (Endocrinology). Pt sees Dr. Maxwell for his eyes. Dr. Arevalo (ENT) Preferred Pharmacy: [facility] Insurance: SHARLENE VENEGAS Prescription Benefit: Yes LNOK: Mira Mcmahon (Sister) Living Arrangements: Pt lives alone in a condo with one step to enter. Pt states that he has no issues using the step and feels safe at home alone. ADLs/IADLs: States independent with ADLs and IADLs. Transportation: Pt drives. Pt sister will drive pt home after DC. DME: Shower chair. Toilet Grab bars. Wheeled walker since 2020. HHC/SNF: Denies HHC. Pt states he was atr [facility] for 2 months for PT after a leg fracture. Pt states this was around 6 years ago. Pt also states that he was going to outpt therapy through [facility] for 2 months for strengthening in 2020. Pt denies outpt therapy needs at this time. Pt?s goal: DC Home alone Plan: DC home alone via his sister with no additional home going needs at this time. Christian Miller RN, CM
--- NOTE | 2023-06-27 13:17 | CON.PCM.ID_ITS ---
Assessment & Plan Assessment/Plan (1) IGTN (ingrowing toe nail): (2) Cellulitis of left toe: PLAN: Toenail removed this AM by Dr. Lorenzo. ESR and CRP normal. Low suspicion for actual osteo. Ok for home with 5 days augmentin. Will follow as needed, thank you HPI Consult Data Date of Consult: 06/27/23 HPI Narrative Reason for Consultation: osteo HPI Narrative: YASMINE THOMAS, is a 67 M with h/o PAD, htn, presented with 1-2 months of L 1st toe mild soreness, redness. No fever, no drainage, no recent abx. Follows with Dr. Junior. Came to ED. Pain worse with walking. Xray with ? osteo, admitted on vanc/zosyn. Podiatry removed ingrown toenail this AM. Full ROS performed and neg except as noted above. [facility] Medical History (HFpEF) heart failure with preserved ejection fraction Arthritis of left hip Asthma Atrial fibrillation BiPAP (biphasic positive airway pressure) dependence Bone lesion Chronic anemia Chronic pain CKD (chronic kidney disease), stage II COPD (chronic obstructive pulmonary disease) Hyperlipidemia Hyperparathyroidism Hypothyroidism Idiopathic hypertrophic subaortic stenosis Lesion of lumbar spine Lumbar degenerative disc disease Lumbar facet arthropathy Lumbar radiculopathy Nephrolithiasis Nonrheumatic mitral valve regurgitation Observed sleep apnea Peripheral neuropathy Permanent atrial fibrillation Restrictive lung disease Sleep apnea Home Medications spironolactone 25 mg tablet 25 mg PO BID diuretic 10/23/13 [History Last Taken 11/15/17] levothyroxine 125 mcg tablet 125 mcg PO DAILY thyroid 11/16/17 [History Last Taken 05/21/18 09:30 125 MCG] albuterol sulfate 90 mcg/actuation aerosol inhaler 2 puff inhalation Q4H PRN shortness of breath or wheezing 10/24/22 [History Last Taken Unknown] calcitriol 0.25 mcg capsule 0.25 mcg PO DAILY 10/24/22 [History Last Taken Unknown] calcium gluconate 60 mg calcium (650 mg) tablet 60 mg PO DAILY 10/24/22 [History Last Taken Unknown] cyanocobalamin (vitamin B-12) 1,000 mcg tablet 1,000 mcg PO DAILY 10/24/22 [History Last Taken Unknown] lidocaine HCl 4 % topical cream (Aspercreme (lidocaine HCl)) 1 applic topical TID PRN pain 10/24/22 [History Last Taken Unknown] magnesium oxide 400 mg (241.3 mg magnesium) tablet 400 mg PO DAILY 10/24/22 [History Last Taken Unknown] metoprolol tartrate 100 mg tablet 50 mg PO BID 10/24/22 [History Last Taken Unknown] potassium chloride 10 mEq tablet,extended release 20 meq PO DAILY 10/24/22 [History Last Taken Unknown] rivaroxaban 20 mg tablet (Xarelto) 20 mg PO DAILY 10/24/22 [History Last Taken Unknown] ibandronate 150 mg tablet 150 mg PO QMONTH 11/12/22 [History Last Taken Unknown] diltiazem HCl 120 mg capsule,extended release 24 hr 120 mg PO DAILY 06/26/23 [H istory Last Taken Unknown] trazodone 100 mg tablet 100 mg PO QHS 06/26/23 [History Last Taken Unknown] amoxicillin 875 mg-potassium clavulanate 125 mg tablet 1 tab PO BID #10 tabs 06/27/23 [Rx Last Taken Unknown] Allergy/AdvReac Type Severity Reaction Status Date / Time Tetracyclines Allergy Swelling Verified 06/26/23 12:59 Family History (Updated 06/26/23 @ 16:[address] Crystal Emerson MD) Father Myocardial infarction CAD (coronary artery disease) Heart disease Hypertension Mother Hypertension Diabetes Surgical History History of lung surgery History of surgery on lower extremity History of transesophageal echocardiography (JAMEE) Hx of cardiovascular stress test Hx of echocardiogram Hx of tonsillectomy Social History (Updated 06/26/23 @ 16:[address] Crystal Emerson MD) household members: none current occupational status: retired Smoking Status: Never smoker alcohol intake: never substance use type: does not use caffeine: Yes Type: carbonated beverages Physical Exam Const alert, oriented x3 and no apparent distress General Appearance: cooperative HEENT normocephalic and head/scalp atraumatic Eyes PERRL and EOMs intact bilaterally Neck supple and No nodes Resp normal air movement and clear to auscultation bilaterally Cardio regular rate and regular rhythm GI soft to palpation, non-tender and non-distended Extremity General Extremity: edema Skin Skin Narrative: L 1st toe with mild swelling, redness. Neuro CN's II-XII intact bilaterally Lab / Micro Data Attestation: I reviewed the patient's lab results. 06/27/23 04:05 06/27/23 04:05 Labs: Laboratory Results - last 24 hr 06/26/23 14:00: WBC 11.1 H, RBC 4.01 L, Hgb 12.2 L, Hct 37.4 L, MCV 93.3, MCH 30.4, MCHC 32.6, RDW Std Deviation 48.0 H, RDW Coeff of Loretta 13.9, Plt Count 207, MPV 11.6, Immature Gran % (Auto) 0.600, Neut % (Auto) 84.3 H, Lymph % (Auto) 6.0 L, Stoddard % (Auto) 8.9, Eos % (Auto) 0.1, Baso % (Auto) 0.1, Absolute Neuts (auto) 9.4 H, Absolute Lymphs (auto) 0.67 L, Nucleated RBC % 0, ESR 6, Sodium 136, Potassium 3.9, Chloride 100, Carbon Dioxide 29.0, Anion Gap 7, BUN 16, Creatinine 1.39 H, Est GFR (MDRD) Af Amer 65, Est GFR (MDRD) Non-Af 54 L, BUN/Creatinine Ratio 11.5, Glucose 94, Lactic Acid 2.2 H*, Calcium 9.5, C-React Prot Ext Range < 2.90 06/26/23 18:32: Lactic Acid 1.1 06/27/23 04:05: WBC 6.7, RBC 3.39 L, Hgb 10.3 L, Hct 32.1 L, MCV 94.7 H, MCH 30.4, MCHC 32.1, RDW Std Deviation 49.0 H, RDW Coeff of Loretta 14.1, Plt Count 158, MPV 12.2 H, Immature Gran % (Auto) 0.400, Neut % (Auto) 74.4 H, Lymph % (Auto) 1 3.7 L, Stoddard % (Auto) 11.3 H, Eos % (Auto) 0.1, Baso % (Auto) 0.1, Absolute Neuts (auto) 5.0, Absolute Lymphs (auto) 0.92, Nucleated RBC % 0, Sodium 138, Potassium 3.9, Chloride 104, Carbon Dioxide 28.0, Anion Gap 6, BUN 12, Creatinine 1.12, Estim Creat Clear Calc 71.47, Est GFR (MDRD) Af Amer 84, Est GFR (MDRD) Non-Af 69, BUN/Creatinine Ratio 10.7, Glucose 82, Hemoglobin A1c 4.6, Calcium 8.3 L, Total Bilirubin 0.70, AST 17, ALT 15 L, Alkaline Phosphatase 61, Total Protein 5.6 L, Albumin 2.9 L, Globulin 2.7, Albumin/Globulin Ratio 1.1, Triglycerides 28, Cholesterol 92, LDL Cholesterol 34, VLDL Cholesterol 6, HDL Cholesterol 52 Imagaing Radiology Impression Toe X-Ray 06/26/23 14:34 IMPRESSION: Erosive changes are seen in the distal portion of the distal pharynx of the great toe suggestive of osteomyelitis. Soft tissue swelling. Electronically Signed: Jose Alberto Wing MD at 15:01 EST ,
[2023-06-27 14:21] VITALS: BP 93/47; PULSE 117; RESP 15; TEMP 36.6; O2SAT 98
--- NOTE | 2023-06-27 14:23 | PCM.PROGNOTE ---
Subjective Subjective Patient seen early this afternoon resting bedside in chair with feet elevated. Denies pain to the feet. States only has pain if toe is pressed on in the corner of his ingrown. He denies constitutional symptoms. Denies further complaints. Objective Data Objective Data Vital Signs: Vital Signs Temp Pulse Resp BP Pulse Ox O2 Del Method O2 Flow Rate 98.1 F 70 16 99/68 95 Room Air 2 06/27/23 09:52 06/27/23 09:57 06/27/23 09:52 06/27/23 09:52 06/27/23 09:52 06/27/23 10:00 06/27/23 09:52 Oxygen Flow Rate (L/min) 2 Oxygen Delivery Method Room Air Weight: 98.571 kg Body Mass Index (BMI) 32.9 Intake & Output: Intake and Output for Last 24 Hours 06/25/23 06/26/23 06/27/23 23:59 23:59 23:59 Intake Total 652 / 652 300 / 300 Balance 652 / 652 300 / 300 Lab / Micro Data 06/27/23 04:05 06/27/23 04:05 Labs: Laboratory Results - last 24 hr 06/26/23 14:00: WBC 11.1 H, RBC 4.01 L, Hgb 12.2 L, Hct 37.4 L, MCV 93.3, MCH 30.4, MCHC 32.6, RDW Std Deviation 48.0 H, RDW Coeff of Loretta 13.9, Plt Count 207, MPV 11.6, Immature Gran % (Auto) 0.600, Neut % (Auto) 84.3 H, Lymph % (Auto) 6.0 L, Mathews % (Auto) 8.9, Eos % (Auto) 0.1, Baso % (Auto) 0.1, Absolute Neuts (auto) 9.4 H, Absolute Lymphs (auto) 0.67 L, Nucleated RBC % 0, ESR 6, Sodium 136, Potassium 3.9, Chloride 100, Carbon Dioxide 29.0, Anion Gap 7, BUN 16, Creatinine 1.39 H, Est GFR (MDRD) Af Amer 65, Est GFR (MDRD) Non-Af 54 L, BUN/Creatinine Ratio 11.5, Glucose 94, Lactic Acid 2.2 H*, Calcium 9.5, C-React Prot Ext Range < 2.90 06/26/23 18:32: Lactic Acid 1.1 06/27/23 04:05: WBC 6.7, RBC 3.39 L, Hgb 10.3 L, Hct 32.1 L, MCV 94.7 H, MCH 30.4, MCHC 32.1, RDW Std Deviation 49.0 H, RDW Coeff of Loretta 14.1, Plt Count 158, MPV 12.2 H, Immature Gran % (Auto) 0.400, Neut % (Auto) 74.4 H, Lymph % (Auto) 13.7 L, Mathews % (Auto) 11.3 H, Eos % (Auto) 0.1, Baso % (Auto) 0.1, Absolute Neuts (auto) 5.0, Absolute Lymphs (auto) 0.92, Nucleated RBC % 0, Sodium 138, Potassium 3.9, Chloride 104, Carbon Dioxide 28.0, Anion Gap 6, BUN 12, Creatinine 1.12, Estim Creat Clear Calc 71.47, Est GFR (MDRD) Af Amer 84, Est GFR (MDRD) Non-Af 69, BUN/Creatinine Ratio 10.7, Glucose 82, Hemoglobin A1c 4.6, Calcium 8.3 L, Total Bilirubin 0.70, AST 17, ALT 15 L, Alkaline Phosphatase 61, Total Protein 5.6 L, Albumin 2.9 L, Globulin 2.7, Albumin/Globulin Ratio 1.1, Triglycerides 28, Cholesterol 92, LDL Cholesterol 34, VLDL Cholesterol 6, HDL Cholesterol 52 Radiography Diagnostic Testing: Radiology Impression Toe X-Ray 06/26/23 14:34 IMPRESSION: Erosive changes are seen in the distal portion of the distal pharynx of the great toe suggestive of osteomyelitis. Soft tissue swelling. Electronically Signed: Jose Alberto Wing MD at 15:01 EST , Physical Exam Const alert, oriented x3 and no apparent distress General Appearance: cooperative HEENT normocephalic Eyes Eyes Narrative: Wears glasses General Eye: normal appearance of both eyes Neck General: normal visual inspection Lymph Lymphatic: no lymphadenopathy noted and no lymphedema noted Resp normal respiratory effort Cardio regular rate and regular rhythm Extremity normal capillary refill, no joint enlargement, no calf tenderness and no pedal edema Extremity Narrative: DP and PT pulses palpable bilateral. CFT less than 3 seconds to digits bilateral. Bilateral proximal lower extremity and pedal edema noted. Dermatological: There is localized rubor about the distal left hallux without increased temperature versus surrounding digits, this is improving on antibiotics. There is various points of resolving ecchymosis to the distal hallux with skin peeling. Left hallux nail is thickened and incurvated with lateral border nail spicule present with pain to palpation of site. There is a skin fold covering the nail spicule consistent with ingrown toenail. No purulent drainage, no malodor, no palpable fluctuance/bogginess noted, no visible abscess formation, no lymphangitic streaking. Musculoskeletal: Muscle strength 5 of 5 age-appropriate. There is decreased range of motion of of the ankle joint with the knee extended without pain or crepitus. Full, smooth, pain-free range of motion of the subtalar joint, midtarsal joint, and first metatarsophalangeal joint. There is some pain to palpation at the distal lateral border of the left hallux at the site of ingrown toenail. Skin no rashes or lesions noted, skin turgor normal and no jaundice Neuro moves all extremities Assessment & Plan Assessment/Plan (1) IGTN (ingrowing toe nail): (2) Cellulitis of left toe: (3) Chronic pain of toe of left foot: (4) PAD (peripheral artery disease): (5) Venous insufficiency: (6) Anticoagulant long-term use: (7) HTN (hypertension): QUALIFIERS: Hypertension type: essential hypertension Qualified Code(s): I10 - Essential (primary) hypertension PLAN: Plan Patient seen and evaluated I examined the left hallux which does demonstrate nail spicule present with localized rubor without purulent drainage. Labial tissue of the lateral border of the left hallux nail does overgrow causing embedding of nail spicule with pain to palpation at the distal lateral border. WBC. currently 6.4, decreased from 11.1, ESR 6, CRP < 2.90. Currently on IV Unasyn and vancomycin Radiographs reviewed demonstrating some erosive changes of the distal phalanx of the left hallux suggestive of osteomyelitis. I have independently reviewed these radiographic images and do feel these are erosive changes however highly suspect of pressure changes secondary to hammertoe type deformity of the left hallux. Given review of diagnostic data, radiographic imaging, and physical exam findings, I do not feel patient has acute osteomyelitis of the distal phalanx. No dressings applied to digit at this time. I discussed all options with the patient this evening consisting of slant back procedure to remove offending nail border vs temporary nail avulsion of the lateral border vs matrixectomy on the lateral border of the left hallux nail. Patient elects to undergo slant back avulsion of the offending nail border at this time. States that he will consider matrixectomy as outpatient in office setting. Following verbal permission a slant back nail avulsion of the lateral border of the left hallux nail was performed without use of local anesthetic to patient tolerance. Offending border was removed with presence of nail spicule which was embedded in the distal aspect of the labial tissue along the nail groove secondary to severe incurvation of nail. Following removal of the offending nail border patient did have immediate relief of pain. Site was inspected with no evidence of remaining spicules present. There is no evidence of ulceration or other wounds along the labial tissue or nail groove or at the distal portion of the left hallux. Dry sterile dressing was applied to the digit. Given history of peripheral vascular disease will obtain LEAS for further evaluation of healing potential in preparation for matrixectomy of the lateral border of the left hallux. Medicine team currently following for medical management, they are appreciated. Offending nail border of the ingrown toenail has been removed and patient will continue to follow with Dr. Junior in office to undergo matrixectomy of the offending nail border of the left hallux to discourage recidivism of his chronic ingrown toenail secondary to severe incurvation of the nail. At this time patient is stable with offending nail border removed and may be discharged home. He will be placed on 5-day oral Augmentin per ID recommendation and will follow-up in office with Dr. Junior. Podiatry to sign off Randall Lorenzo Jr. D.P.M. [facility] [phone]
[2023-06-27 20:02] VITALS: BP 139/117; PULSE 117; RESP 18; TEMP 36.7; O2SAT 98
[2023-06-27 20:19] VITALS: PULSE 117
[2023-06-27] MEDS: Atorvastatin Calcium 20 MG Tablet PO (20:19)
[2023-06-27] MEDS: Spironolactone 25 MG Tablet PO (20:19)
[2023-06-27] MEDS: traZODone 100 MG Tablet PO (22:48)
[2023-06-28 04:22] VITALS: BP 94/78; PULSE 83; RESP 18; TEMP 36.4; O2SAT 97
[2023-06-28 04:58] LABS: Absolute Lymphocyte Count 1.03 X10^3/uL (0.83-4.51); Basophil# 0.03 X10^3/uL; Basophil% 0.5 % (0-1); Eosinophil# 0.07 X10^3/uL; Eosinophils% 1.2 % (0-5); Hematocrit 34.7 % (40-54); Lymphocyte # 1.03 X10^3/ul (0.83-4.51); Lymphocyte % 17.4 % (19-41); Mean Corp Hgb Conc 31.7 g/dL (32-36); Mean Corpuscular Hgb 30.7 pg (27.0-32.0); Mean Corpuscular Volume 96.9 fL (80-94); Mean Platelet Vol. 11.3 fl (6.2-12.0); Monocyte# 0.75 X10^3/uL; Monocyte% 12.7 % (0-10); NRBC Flagged by Analyzer 0 % (0-5); Neutrophil % 67.5 % (47-70); Platelet Count 159 K/mm3 (150-450); RBC Distribution Width SD 50.3 fl (35.1-43.9); Red Blood Count 3.58 M/mm3 (4.6-6.2); White Blood Count 5.9 K/mm3 (4.4-11.0)
[2023-06-28 05:11] LABS: Anion Gap 2 (5-15); BUN 7 mg/dL (7-18); BUN/Creat Ratio 6.4 RATIO (10-20); Calcium,Total 8.5 mg/dL (8.5-10.1); Chloride 109 mmol/L (98-107); Creatinine, Serum 1.09 mg/dL (0.70-1.30); EST Glomerular Filtration Rate 71 mL/min (>60); Est Glom Filt Rate - Afr Amer 86 mL/min (>60); Estimated Creatinine Clearance 73.82 ml/min; Glucose 91 mg/dL (74-106); Potassium 4.3 mmol/L (3.5-5.1); Sodium Level 141 mmol/L (136-145)
[2023-06-28 05:14] LABS: Vancomycin, Trough Level 18.8 ug/mL (5.0-15.0)
--- NOTE | 2023-06-28 05:26 | PCM.RX.CS ---
Consult Antibiotic Management Pharmacy has been consulted to manage selected antibiotic: Vancomycin Type of Intervention Type of Consult: Follow-up Labs Labs: Sodium 141 mmol/L (136-145) 06/28/23 04:42 Potassium 4.3 mmol/L (3.5-5.1) 06/28/23 04:42 Chloride 109 mmol/L (98-107) H 06/28/23 04:42 Carbon Dioxide 30.0 mmol/L (21.0-32.0) 06/28/23 04:42 Anion Gap 2 (5-15) L 06/28/23 04:42 BUN 7 mg/dL (7-18) 06/28/23 04:42 Creatinine 1.09 mg/dL (0.70-1.30) 06/28/23 04:42 Est GFR (MDRD) Af Amer 86 mL/min (>60) 06/28/23 04:42 Est GFR (MDRD) Non-Af 71 mL/min (>60) 06/28/23 04:42 BUN/Creatinine Ratio 6.4 RATIO (10-20) L 06/28/23 04:42 Glucose 91 mg/dL (74-106) 06/28/23 04:42 Vancomycin Trough 18.8 ug/mL (5.0-15.0) H 06/28/23 04:42 Goal Trough Goal Trough: 15-20 mcg/mL Pharmacy Plan for Drug Dosing Pharmacy Plan for Drug Dosing: Pharmacy Service will continue to monitor and adjust dosing as required. TROUGH 18.8 @ 11 HOURS. NO CHANGES, FOLLOW UP TROUGH IN 2 DAYS Follow-Up Labs Follow-Up Labs: Trough: Vancomycin Date/Time Labs Ordered Labs to be done on [date and time ordered]: 06/30 @ 8437
[2023-06-28] MEDS: Vancomycin IV 1,000 MG/200 ML BAG 200 MG IV (05:34)
[2023-06-28 06:00] VITALS: BMI 32.8
[2023-06-28] MEDS: Levothyroxine 125 MCG Tablet PO (06:43)
[2023-06-28] MEDS: Piperacil/Tazobactam 3.375 GM in 0.9% Normal Saline (50mL MB+) 50 ML IV ×2 (06:43→13:19)
[2023-06-28 07:47] VITALS: O2SAT 91
[2023-06-28 08:04] VITALS: BP 125/91; PULSE 87; RESP 17; TEMP 36.8; O2SAT 97
[2023-06-28 09:27] VITALS: BP 125/91; PULSE 87
[2023-06-28] MEDS: Spironolactone 25 MG Tablet PO (09:27)
[2023-06-28] MEDS: Metoprolol Tartrate 50 MG Tablet PO (09:27)
[2023-06-28] MEDS: dilTIAZem CD 120 MG Capsule PO (09:27)
[2023-06-28] MEDS: Potassium Chloride Oral Tablet 20 MEQ PO (09:27)
[2023-06-28] MEDS: Calcitriol 0.25 MCG Capsule PO (09:28)
[2023-06-28] MEDS: Magnesium Chloride 64 MG Delay Rel.Tablet 128 MG PO (09:28)
--- NOTE | 2023-06-28 11:14 | DCINST_ITS ---
Discharge Instructions Diet Discharge Diet: 2000 mg Sodium Diet Activity Discharge Activity: Return to Normal Activity Weight Bearing Status: Weight bearing as tolerated Dressing / Incision Call your doctor if you observe: Fever of 101 or Higher, Coldness, Increased Pain, Numbness or Tingling, Change in Color, Inability to urinate, Inability to have a bowel movement, Shortness of breath, Dizziness, Fainting spells, Swelling in the ankles, Chest pain, Prolonged hiccupping, Increased palpitations (irregular heartbeat) and Calf discomfort Follow Up Care When: IN 2 WEEKS Test Results: Test results from this visit will be discussed in further detail at your follow- up appointment, if applicable. Discharge Plan Admission Admit Date/Time: 06/26/23 15:19 Primary Reason for Your Visit: Left ingrown toenail with subcutis infecti on/localized cellulitis Attending Provider: Behzad Glez Primary Care Provider: Jay Wahl Consulting Providers: Radnall Lorenzo; Crystal Emerson; Hunter Mcdermott Discharge Orders/Prescriptions Prescriptions: New amoxicillin-pot clavulanate 875-125 mg tablet 1 tab PO BID Qty: 10 0RF atorvastatin 20 mg Tablet 20 mg PO QHS 30 Days Qty: 30 2RF sennosides-docusate sodium [Stool Softener-Stimulant Laxat] 8.6-50 mg Tablet 2 tab PO BID PRN PRN (Reason: Constipation) Qty: 0 0RF Continued albuterol sulfate 90 mcg/actuation HFA aerosol inhaler 2 puff inhalation Q4H PRN (Reason: shortness of breath or wheezing) calcitriol 0.25 mcg capsule 0.25 mcg PO DAILY calcium gluconate 60 mg calcium (650 mg) tablet 60 mg PO DAILY cyanocobalamin (vitamin B-12) 1,000 mcg tablet 1,000 mcg PO DAILY lidocaine HCl [Aspercreme (lidocaine HCl)] 4 % cream 1 applic topical TID PRN (Reason: pain) magnesium oxide 400 mg (241.3 mg magnesium) tablet 400 mg PO DAILY metoprolol tartrate 100 mg tablet 50 mg PO BID potassium chloride 10 mEq tablet extended release 20 meq PO DAILY Xarelto 20 mg tablet 20 mg PO DAILY Patient Comments: TAKE 1 TABLET BY MOUTH EVERY DAY EVENING MEAL ibandronate 150 mg tablet 150 mg PO QMONTH spironolactone 25 MG tablet 25 mg PO BID levothyroxine 125 MCG tablet 125 mcg PO DAILY trazodone 100 mg tablet 100 mg PO QHS Patient Comments: TAKE 1 TO 2 TABLETS BY MOUTH AT BEDTIME diltiazem HCl 120 mg capsule,extended release 24hr 120 mg PO DAILY Patient Comments: TAKE ONE CAPSULE BY MOUTH ONCE DAILY Referrals / Follow Up: Jay Wahl DO [Primary Care Provider] - Randall Lorenzo DPM [Med Staff - Active Staff] - Within 2 Weeks Disposition Disposition (needs filled in before D/C Order can be placed): Home, Self Care
[2023-06-28 14:00] VITALS: BP 91/53; PULSE 94; RESP 16; TEMP 36.6; O2SAT 94
--- NOTE | 2023-06-28 16:06 | PCM.PN.HOSP ---
Reason for Visit Reason for Visit: Diagnoses Other chronic pain (06/26/23) Essential (primary) hypertension (06/26/23) Peripheral vascular disease, unspecified (06/26/23) Venous insufficiency (chronic) (peripheral) (06/26/23) Cellulitis of left toe (06/26/23) Ingrowing nail (06/26/23) Pain in left toe(s) (06/26/23) Osteomyelitis, unspecified (06/26/23) [facility] (current) use of anticoagulants (06/26/23) Objective Data Objective Data Vital Signs: Vital Signs Temp Pulse Resp BP Pulse Ox O2 Del Method O2 Flow Rate 97.9 F 94 16 91/53 L 94 Room Air 2 06/28/23 14:00 06/28/23 14:00 06/28/23 14:00 06/28/23 14:00 06/28/23 14:00 06/28/23 14:00 06/27/23 09:52 Oxygen Flow Rate (L/min) 2 Oxygen Delivery Method Room Air Weight: 216 lb 7.903 oz Body Mass Index (BMI) 32.8 Intake & Output: Intake and Output for Last 24 Hours 06/26/23 06/27/23 06/28/23 23:59 23:59 23:59 Intake Total 652 / 652 550 / 550 300 / 300 Balance 652 / 652 550 / 550 300 / 300 Lab / Micro Data 06/28/23 04:42 06/28/23 04:42 Labs: Laboratory Results - last 24 hr 06/28/23 04:42: WBC 5.9, RBC 3.58 L, Hgb 11.0 L, Hct 34.7 L, MCV 96.9 H, MCH 30.7, MCHC 31.7 L, RDW Std Deviation 50.3 H, RDW Coeff of Loretta 14.0, Plt Count 159, MPV 11.3, Immature Gran % (Auto) 0.700, Neut % (Auto) 67.5, Lymph % (Auto) 17.4 L, Whitley % (Auto) 12.7 H, Eos % (Auto) 1.2, Baso % (Auto) 0.5, Absolute Neuts (auto) 4.0, Absolute Lymphs (auto) 1.03, Nucleated RBC % 0 Sodium 141, Potassium 4.3, Chloride 109 H, Carbon Dioxide 30.0, Anion Gap 2 L, BUN 7, Creatinine 1.09, Estim Creat Clear Calc 73.82, Est GFR (MDRD) Af Amer 86, Est GFR (MDRD) Non-Af 71, BUN/Creatinine Ratio 6.4 L, Glucose 91, Calcium 8.5, Vancomycin Trough 18.8 H Micro: Microbiology 06/26/23 15:24 Blood Culture (Wb) - Anticubital Left Blood Culture - Preliminary No growth in 48 hours. Physical Exam Narrative Seen and examined. Patient is doing fine. No fever. Patient has left great toe osteomyelitis. Complain of mild pain. No open ulcer but chronic pain and cellulitis. Ingrowing toenail. Physical exam: General: Alert, Oriented x3, Cooperative, obesity grade 3 BMI 33.0 kg/m? HEENT: Atraumatic, PERRLA, EOMI, Normocephalic Oral: No Gingival or Mucosal Lesions/ Ulcerations Neck: Supple, No JVD, Negative Carotid Bruits Lungs: Air entry diminished in bilateral lung bases. No crepitation/rhonchi Cardiovascular: Regular rate, Regular Rhythm, Normal S1, Normal S2, No murmurs Abdomen: Bowel Sounds Present, Soft, Non Tender, Non-Distended : No renal angle tenderness. No suprapubic tenderness. Extremities: No edema, Capillary Refill Less than 3 Seconds Skin: No rashes, No breakdown Musculoskeletal: Mild tenderness present over left great toe. Ingrown toenail of left hallux. Tenderness present over left toenail but no open ulcer. Neurological: Cranial nerves II-XII grossly intact, DTR 2+/4. Bilateral peripheral neuropathy bilateral feet. Position sense and gross sensation to touch and temperature absent in toes and feet Psych/Mental Status: Normal Affect, Appropriate. Assessment & Plan Assessment/Plan (1) Osteomyelitis of great toe of left foot: PLAN: Plan The patient is a 67 y/o M came to ED for left great toe wound and he states there is osteomyelitis. Patient had x-ray day before ED visit in outside facility was not reported osteomyelitis. Patient also had bilateral lymphedema, on diuretics. Chronic peripheral neuropathy. #1. Left great toe wound with acute osteomyelitis: Patient is admitted on MedSur floor. Labs reviewed. X-ray done in ED is shows bony erosive changes, suggestive of osteomyelitis of distal portion of left great toe. Soft tissue swelling. Rocael wrap bandage and leg elevation. ESR and CRP normal. Lactic acid is mildly elevated. Patient's did not had fever or other criteria for SIRS or qSOFA score and does not qualify for sepsis. Sepsis ruled out. Vascular study, OLY pending. On IV antibiotics. Matrix Inspector is consulted.On IV vancomycin and Zosyn. A1c 4.6. Diabetes or prediabetes ruled out 07/15 Blood cultures are negative. Patient evaluated by ID.Low suspicion for actual osteomyelitis. ID recommended discharge home on Augmentin for 5 days. See #2. PAD: Reported history, per report no history of any peripheral angioplasty or stenting, holding Xarelto temporarily as noted with resumption immediately once able, requesting OLY/PVR as noted, adding low-dose statin, continue hypertensive regimen. #3. Chronic Kidney Disease Stage II primarily per GFR trending however GFR mildly reduced today but previously primarily 60-80 range: Admission BUN/Cr 16/1.39, baseline renal function 0.9-1.2, repeat BUN and creatinine normal /.12. #4. Chronic AF: We will continue to home with all end of regimen, holding home Xarelto with last dose the evening prior. #5. Chronic COPD/restrictive lung disease: From current list not on any chronic regimen, PRN albuterol, HOB, IS parameters. #6. Chronic peripheral neuropathy: Likely plays a significant role in patient's injury as noted above, not on any chronic regimen but if necessary could consider adding low-dose gabapentin. #7. HFpEF: Most recent echocardiogram noted 04/07/2018 with EF 65%, stage I diastolic dysfunction, severely enlarged LA, mild MVI, RVSP 49 mmHg with moderate pulmonary hypertension, mild ATIF, mildly dilated aortic root. Given history will only judiciously hydrate as needed. Temporarily holding patient home Xarelto as noted, continue metoprolol, spironolactone, not on ROCAEL inhibitor/ARB, not on statin therapy. #8. Hypertension: Continue home regimen including diltiazem, spironolactone, metoprolol, PRN hydralazine. #9. History of dyslipidemia : Fasting profile shows LDL in normal range HDL normal. #10. Hypothyroidism: continue patient home levothyroxine regimen. #11. Chronic normocytic anemia: Admission hemoglobin 12.2, MCV 93.3, baseline hemoglobin 11-12, stable, continue to trend. #12. Obesity: Weight loss and lifestyle changes encouraged. #13. OPAL: CPAP nightly. #14. DVT prophylaxis: Will temporally hold patient home Xarelto regimen with last dose 06/25/2023 per podiatry request for possible operative needs. Resume once amenable. #15. CODE status: Patient HCPOA and living will are not in place but he notes his sister Mei would be his decision-maker if he was unable. Discussed CODE status at length including difference between FULL code, DNR-CCA and DNR-CC status. Following discussions about the differences in these status, requested Full Code status. 06/26/23 14:00: WBC 11.1 H, RBC 4.01 L, Hgb 12.2 L, Hct 37.4 L, MCV 93.3, MCH 30.4, MCHC 32.6, RDW Std Deviation 48.0 H, RDW Coeff of Loretta 13.9, Plt Count 207, MPV 11.6, Immature Gran % (Auto) 0.600, Neut % (Auto) 84.3 H, Lymph % (Auto) 6.0 L, Whitley % (Auto) 8.9, Eos % (Auto) 0.1, Baso % (Auto) 0.1, Absolute Neuts (auto) 9.4 H, Absolute Lymphs (auto) 0.67 L, Nucleated RBC % 0, ESR 6, Sodium 136, Potassium 3.9, Chloride 100, Carbon Dioxide 29.0, Anion Gap 7, BUN 16, Creatinine 1.39 H, Est GFR (MDRD) Af Amer 65, Est GFR (MDRD) Non-Af 54 L, BUN/Creatinine Ratio 11.5, Glucose 94, Lactic Acid 2.2 H*, Calcium 9.5, C-React Prot Ext Range < 2.90 06/26/23 18:32: Lactic Acid 1.1 06/27/23 04:05: WBC 6.7, RBC 3.39 L, Hgb 10.3 L, Hct 32.1 L, MCV 94.7 H, MCH 30.4, MCHC 32.1, RDW Std Deviation 49.0 H, RDW Coeff of Loretta 14.1, Plt Count 158, MPV 12.2 H, Immature Gran % (Auto) 0.400, Neut % (Auto) 74.4 H, Lymph % (Auto) 13.7 L, Whitley % (Auto) 11.3 H, Eos % (Auto) 0.1, Baso % (Auto) 0.1, Absolute Neuts (auto) 5.0, Absolute Lymphs (auto) 0.92, Nucleated RBC % 0, Sodium 138, Potassium 3.9, Chloride 104, Carbon Dioxide 28.0, Anion Gap 6, BUN 12, Creatinine 1.12, Estim Creat Clear Calc 71.47, Est GFR (MDRD) Af Amer 84, Est GFR (MDRD) Non-Af 69, BUN/Creatinine Ratio 10.7, Glucose 82, Hemoglobin A1c 4.6, Calcium 8.3 L, Total Bilirubin 0.70, AST 17, ALT 15 L, Alkaline Phosphatase 61, Total Protein 5.6 L, Albumin 2.9 L, Globulin 2.7, Albumin/Globulin Ratio 1.1, Triglycerides 28, Cholesterol 92, LDL Cholesterol 34, VLDL Cholesterol 6, HDL Cholesterol 52
--- NOTE | 2023-06-28 16:18 | PCM.DC.SUM ---
Providers Date of Admission: 06/26/23 Date of Discharge: 06/28/23 Primary Care Physician: Dr. Jay Wahl, Consultations 06/26/23 16:50 Consult: Infectious Disease Routine Consulting Provider: Hunter Mcdermott Reason for Consult: Diabetic foot wound EMERGENT Consult: No Notified: Yes Date Notified: 06/26/23 Time Notified: 16:25 Method of Notification: Text Consult: Podiatry Routine Consulting Provider: Randall Lorenzo Reason for Consult: L great toe wound, osteo EMERGENT Consult: No Notified: Yes Date Notified: 06/26/23 Time Notified: 16:22 Method of Notification: ED Physician Initiated Reason For Visit: L GREAT TOE OSTEOMYELITIS Diagnosis Discharge Diagnosis (1) Osteomyelitis of great toe of left foot: Status: Acute Code(s): M86.9 - Osteomyelitis, unspecified Plan The patient is a 67 y/o M came to ED for left great toe wound and he states there is osteomyelitis. Patient had x-ray day before ED visit in outside facility was not reported osteomyelitis. Patient also had bilateral lymphedema, on diuretics. Chronic peripheral neuropathy. #1. Left great toe wound with acute osteomyelitis: Patient is admitted on MedSurg floor. Labs reviewed. X-ray done in ED is shows bony erosive changes, suggestive of osteomyelitis of distal portion of left great toe. Soft tissue swelling. Rocael wrap bandage and leg elevation. ESR and CRP normal. Lactic acid is mildly elevated. Patient's did not had fever or other criteria for SIRS or qSOFA score and does not qualify for sepsis. Sepsis ruled out. Vascular study, OLY pending. On IV antibiotics. Picking Machine Operator is consulted.On IV vancomycin and Zosyn. A1c 4.6. Diabetes or prediabetes ruled out 06/28 Blood cultures are negative. Patient evaluated by ID.Low suspicion for actual osteomyelitis. ID recommended discharge home on Augmentin for 5 days. Prescription given by ID. #2. PAD: Reported history, per report no history of any peripheral angioplasty or stenting, continue Xarelto. Prescription given for atorvastatin 20 mg daily. Maintain blood pressure. #3. Chronic Kidney Disease Stage II primarily per GFR trending however GFR mildly reduced today but previously primarily 60-80 range: Admission BUN/Cr 16/1.39, baseline renal function 0.9-1.2, repeat BUN and creatinine normal 12/1.12. #4. Chronic AF: We will continue to home with all end of regimen, holding home Xarelto with last dose the evening prior. #5. Chronic COPD/restrictive lung disease: From current list not on any chronic regimen, PRN albuterol, HOB, IS parameters. #6. Chronic peripheral neuropathy: Likely plays a significant role in patient's injury as noted above, not on any chronic regimen but if necessary could consider adding low-dose gabapentin. #7. HFpEF: Most recent echocardiogram noted 04/07/2018 with EF 65%, stage I diastolic dysfunction, severely enlarged LA, mild MVI, RVSP 49 mmHg with moderate pulmonary hypertension, mild ATIF, mildly dilated aortic root. Given history will only judiciously hydrate as needed. Temporarily holding patient home Xarelto as noted, continue metoprolol, spironolactone, not on ROCAEL inhibitor/ARB, not on statin therapy. #8. Hypertension: Continue home regimen including diltiazem, spironolactone, metoprolol, PRN hydralazine. #9. History of dyslipidemia : Fasting profile shows LDL in normal range HDL normal. #10. Hypothyroidism: continue patient home levothyroxine regimen. #11. Chronic normocytic anemia: Admission hemoglobin 12.2, MCV 93.3, baseline hemoglobin 11-12, stable, continue to trend. #12. Obesity: Weight loss and lifestyle changes encouraged. #13. OPAL: CPAP nightly. #14. DVT prophylaxis: Will temporally hold patient home Xarelto regimen with last dose 06/25/2023 per podiatry request for possible operative needs. Resume once amenable. #15. CODE status: Patient HCPOA and living will are not in place but he notes his sister Mei would be his decision-maker if he was unable. Discussed CODE status at length including difference between FULL code, DNR-CCA and DNR-CC status. Following discussions about the differences in these status, requested Full Code status. Discharge medication reconciliation done. Discharge follow-up instructions completed. Discharge process discussed with the patient and all questions were answered to patient's satisfaction. Follow with PCP in 1 to 2 weeks Total time spent, exact 35 minutes on discharge meds reconciliation, examination, coordination of care with nurses and ancillary staff, review of imaging and blood test and discussion with the patient on follow-up instructions. 06/26/23 14:00: WBC 11.1 H, RBC 4.01 L, Hgb 12.2 L, Hct 37.4 L, MCV 93.3, MCH 30.4, MCHC 32.6, RDW Std Deviation 48.0 H, RDW Coeff of Loretta 13.9, Plt Count 207, MPV 11.6, Immature Gran % (Auto) 0.600, Neut % (Auto) 84.3 H, Lymph % (Auto) 6.0 L, [place] % (Auto) 8.9, Eos % (Auto) 0.1, Baso % (Auto) 0.1, Absolute Neuts (auto) 9.4 H, Absolute Lymphs (auto) 0.67 L, Nucleated RBC % 0, ESR 6, Sodium 136, Potassium 3.9, Chloride 100, Carbon Dioxide 29.0, Anion Gap 7, BUN 16, Creatinine 1.39 H, Est GFR (MDRD) Af Amer 65, Est GFR (MDRD) Non-Af 54 L, BUN/Creatinine Ratio 11.5, Glucose 94, Lactic Acid 2.2 H*, Calcium 9.5, C-React Prot Ext Range < 2.90 06/26/23 18:32: Lactic Acid 1.1 06/27/23 04:05: WBC 6.7, RBC 3.39 L, Hgb 10.3 L, Hct 32.1 L, MCV 94.7 H, MCH 30.4, MCHC 32.1, RDW Std Deviation 49.0 H, RDW Coeff of Loretta 14.1, Plt Count 158, MPV 12.2 H, Immature Gran % (Auto) 0.400, Neut % (Auto) 74.4 H, Lymph % (Auto) 13.7 L, [place] % (Auto) 11.3 H, Eos % (Auto) 0.1, Baso % (Auto) 0.1, Absolute Neuts (auto) 5.0, Absolute Lymphs (auto) 0.92, Nucleated RBC % 0, Sodium 138, Potassium 3.9, Chloride 104, Carbon Dioxide 28.0, Anion Gap 6, BUN 12, Creatinine 1.12, Estim Creat Clear Calc 71.47, Est GFR (MDRD) Af Amer 84, Est GFR (MDRD) Non-Af 69, BUN/Creatinine Ratio 10.7, Glucose 82, Hemoglobin A1c 4.6, Calcium 8.3 L, Total Bilirubin 0.70, AST 17, ALT 15 L, Alkaline Phosphatase 61, Total Protein 5.6 L, Albumin 2.9 L, Globulin 2.7, Albumin/Globulin Ratio 1.1, Triglycerides 28, Cholesterol 92, LDL Cholesterol 34, VLDL Cholesterol 6, HDL Cholesterol 52 Medications at Discharge Home Medications spironolactone 25 mg tablet 25 mg PO BID diuretic 10/23/13 levothyroxine 125 mcg tablet 125 mcg PO DAILY thyroid 11/16/17 albuterol sulfate 90 mcg/actuation aerosol inhaler 2 puff inhalation Q4H PRN shortness of breath or wheezing 10/24/22 calcitriol 0.25 mcg capsule 0.25 mcg PO DAILY 10/24/22 calcium gluconate 60 mg calcium (650 mg) tablet 60 mg PO DAILY 10/24/22 cyanocobalamin (vitamin B-12) 1,000 mcg tablet 1,000 mcg PO DAILY 10/24/22 lidocaine HCl 4 % topical cream (Aspercreme (lidocaine HCl)) 1 applic topical TID PRN pain 10/24/22 magnesium oxide 400 mg (241.3 mg magnesium) tablet 400 mg PO DAILY 10/24/22 metoprolol tartrate 100 mg tablet 50 mg PO BID 10/24/22 potassium chloride 10 mEq tablet,extended release 20 meq PO DAILY 10/24/22 rivaroxaban 20 mg tablet (Xarelto) 20 mg PO DAILY 10/24/22 ibandronate 150 mg tablet 150 mg PO QMONTH 11/12/22 diltiazem HCl 120 mg capsule,extended release 24 hr 120 mg PO DAILY 06/26/23 trazodone 100 mg tablet 100 mg PO QHS 06/26/23 amoxicillin 875 mg-potassium clavulanate 125 mg tablet 1 tab PO BID #10 tabs 06/27/23 atorvastatin 20 mg tablet 20 mg PO QHS 30 days #30 tabs 06/28/23 sennosides 8.6 mg-docusate sodium 50 mg tablet (Stool Softener-Stimulant Laxative) 2 tab PO BID PRN PRN Constipation #0 tabs 06/28/23 Physical Exam Narrative Seen and examined. Patient is doing fine. No fever. No open ulcer but chronic pain and cellulitis. Ingrowing toenail/Localized cellulitis. Clinically low suspicion for osteomyelitis. Physical exam: General: Alert, Oriented x3, Cooperative, obesity grade 3 BMI 33.0 kg/m? HEENT: Atraumatic, PERRLA, EOMI, Normocephalic Oral: No Gingival or Mucosal Lesions/ Ulcerations Neck: Supple, No JVD, Negative Carotid Bruits Lungs: Air entry diminished in bilateral lung bases. No crepitation/rhonchi Cardiovascular: Regular rate, Regular Rhythm, Normal S1, Normal S2, No murmurs Abdomen: Bowel Sounds Present, Soft, Non Tender, Non-Distended : No renal angle tenderness. No suprapubic tenderness. Extremities: No edema, Capillary Refill Less than 3 Seconds Skin: Mild redness under the left great toenail, localized cellulitis. Improving. Musculoskeletal: Mild tenderness present over left great toe. Ingrown toenail of left hallux. Tenderness present over left toenail but no open ulcer. Neurological: Cranial nerves II-XII grossly intact, DTR 2+/4. Bilateral peripheral neuropathy bilateral feet. Position sense and gross sensation to touch and temperature absent in toes and feet Psych/Mental Status: Normal Affect, Appropriate. Weight / BMI Weight Weight: 216 lb 7.903 oz Body Mass Index (BMI) 32.8 ABG / Lab / Microbiology Data 06/28/23 04:42 06/28/23 04:42 Laboratory: Laboratory Results - last 24 hr 06/28/23 04:42: WBC 5.9, RBC 3.58 L, Hgb 11.0 L, Hct 34.7 L, MCV 96.9 H, MCH 30.7, MCHC 31.7 L, RDW Std Deviation 50.3 H, RDW Coeff of Loretta 14.0, Plt Count 159, MPV 11.3, Immature Gran % (Auto) 0.700, Neut % (Auto) 67.5, Lymph % (Auto) 17.4 L, [place] % (Auto) 12.7 H, Eos % (Auto) 1.2, Baso % (Auto) 0.5, Absolute Neuts (auto) 4.0, Absolute Lymphs (auto) 1.03, Nucleated RBC % 0, Sodium 141, Potassium 4.3, Chloride 109 H, Carbon Dioxide 30.0, Anion Gap 2 L, BUN 7, Creatinine 1.09, Estim Creat Clear Calc 73.82, Est GFR (MDRD) Af Amer 86, Est GFR (MDRD) Non-Af 71, BUN/Creatinine Ratio 6.4 L, Glucose 91, Calcium 8.5, Vancomycin Trough 18.8 H Microbiology: Microbiology 06/26/23 15:24 Blood Culture (Wb) - Anticubital Left Blood Culture - Preliminary No growth in 48 hours. D/C Instructions Discharge Diet: 2000 mg Sodium Diet Weight Bearing Status: Weight bearing as tolerated Call your doctor if you observe: Fever of 101 or Higher, Coldness, Increased Pain, Numbness or Tingling, Change in Color, Inability to urinate, Inability to have a bowel movement, Shortness of breath, Dizziness, Fainting spells, Swelling in the ankles, Chest pain, Prolonged hiccupping, Increased palpitations (irregular heartbeat) and Calf discomfort When: IN 2 WEEKS Meaningful Use Info Meaningful Use Diagnoses (Choose all that apply): None applicable Discharge Plan Admission Admit Date/Time: 06/26/23 15:19 Primary Reason for Your Visit: Left ingrown toenail with subcutis infection/localized cellulitis Attending Provider: Behzad Glez Primary Care Provider: Jay Wahl Consulting Providers: Randall Lorenzo; Crystal Emerson; Hunter Mcdermott Discharge Orders/Prescriptions Prescriptions: New amoxicillin-pot clavulanate 875-125 mg tablet 1 tab PO BID Qty: 10 0RF atorvastatin 20 mg Tablet 20 mg PO QHS 30 Days Qty: 30 2RF sennosides-docusate sodium [Stool Softener-Stimulant Laxat] 8.6-50 mg Tablet 2 tab PO BID PRN PRN (Reason: Constipation) Qty: 0 0RF Continued albuterol sulfate 90 mcg/actuation HFA aerosol inhaler 2 puff inhalation Q4H PRN (Reason: shortness of breath or wheezing) calcitriol 0.25 mcg capsule 0.25 mcg PO DAILY calcium gluconate 60 mg calcium (650 mg) tablet 60 mg PO DAILY cyanocobalamin (vitamin B-12) 1,000 mcg tablet 1,000 mcg PO DAILY lidocaine HCl [Aspercreme (lidocaine HCl)] 4 % cream 1 applic topical TID PRN (Reason: pain) magnesium oxide 400 mg (241.3 mg magnesium) tablet 400 mg PO DAILY metoprolol tartrate 100 mg tablet 50 mg PO BID potassium chloride 10 mEq tablet extended release 20 meq PO DAILY Xarelto 20 mg tablet 20 mg PO DAILY Patient Comments: TAKE 1 TABLET BY MOUTH EVERY DAY EVENING MEAL ibandronate 150 mg tablet 150 mg PO QMONTH spironolactone 25 MG tablet 25 mg PO BID levothyroxine 125 MCG tablet 125 mcg PO DAILY trazodone 100 mg tablet 100 mg PO QHS Patient Comments: TAKE 1 TO 2 TABLETS BY MOUTH AT BEDTIME diltiazem HCl 120 mg capsule,extended release 24hr 120 mg PO DAILY Patient Comments: TAKE ONE CAPSULE BY MOUTH ONCE DAILY Referrals / Follow Up: Jay Wahl DO [Primary Care Provider] - Randall Lorenzo DPM [Med Staff - Active Staff] - Within 2 Weeks Disposition Disposition (needs filled in before D/C Order can be placed): Home, Self Care Charges/Coding Visit Charges Inpatient E&M: 27125 Disch Hosp >30min
[2023-06-28 16:34] VITALS: BP 93/56; PULSE 65; RESP 18; TEMP 36.9; O2SAT 96
[2023-06-28] MEDS: Amox/Clavulanate 875 MG Tablet PO (17:56)
== END 2023-06-28 18:00 | disposition home or self-care (01) | DRG 603 ==
LOC: ED 15:32 → MS3 16:21
PROVIDERS: Admitting Provider Family Medicine; Emergency Provider Emergency Medicine; PCP Student in an Organized Health Care Education/Training Program; Visit Provider Internal Medicine
DX: L03.032 Cellulitis of left toe (principal); E87.20 Acidosis, unspecified; I48.20 Chronic atrial fibrillation, unspecified; I13.0 Hypertensive heart and chronic kidney disease with heart failure and stage 1 through stage 4 chronic kidney disease, or unspecified chronic kidney disease; I50.32 Chronic diastolic (congestive) heart failure; D63.8 Anemia in other chronic diseases classified elsewhere; E03.9 Hypothyroidism, unspecified; G62.9 Polyneuropathy, unspecified; I73.9 Peripheral vascular disease, unspecified; J44.9 Chronic obstructive pulmonary disease, unspecified; L60.0 Ingrowing nail; N18.2 Chronic kidney disease, stage 2 (mild); I89.0 Lymphedema, not elsewhere classified; I87.2 Venous insufficiency (chronic) (peripheral); G47.33 Obstructive sleep apnea (adult) (pediatric); E78.5 Hyperlipidemia, unspecified; M20.42 Other hammer toe(s) (acquired), left foot; S91.102A Unspecified open wound of left great toe without damage to nail, initial encounter; Z79.01 Long term (current) use of anticoagulants; G89.29 Other chronic pain
CPT/HCPCS: 36415; 73660; 80048; 80053; 80061; 80202; 83036; 83605; 85025; 85652; 86140; 87040; 93922; 94668; 97110; 97116; 97162; 97166; 97535; 97802; 99252; 99284; J7040; J7050; A4216; G0463; J0295

== ENCOUNTER 2023-08-05 13:05 | Day surgery (SDC) | payer MEDICARE, SELFPAY ==
[2023-08-05] VITALS (10 sets, daily range): BP systolic 96–128; BP diastolic 69–99; PULSE 93–120; RESP 12–20; TEMP 36.2–36.6; O2SAT 97–100; BMI 31.9
[2023-08-05] MEDS: Lactated Ringers 1,000 ML 15 ML IV (13:41)
--- NOTE | 2023-08-05 14:03 | HP.PCM_ITS ---
HPI - General General Date of Admission: 08/05/23 Date of Service: 08/05/23 HPI Narrative YASMINE THOMAS, is a 68 M who presentsToday for screening colonoscopy. He had a colonoscopy proximately 14 years ago and that was normal. He has a past medical history of hypertension.He also has a history of anemia chronic disease and past history of osteomyelitis. He is not having any problems at this time. He denies any chest pain or shortness of breath. All other 16 review of systems are negative except as per past mentioned HPI. [facility] Medical History (Updated 07/30/23 @ 13:48 by Kendal Da Silva) (HFpEF) heart failure with preserved ejection fraction Anemia Arthritis Arthritis of left hip Asthma Atrial fibrillation BiPAP (biphasic positive airway pressure) dependence Bone lesion Cancer Cardiology follow-up encounter Chronic anemia Chronic cough Chronic pain Chronic pain of toe of left foot CKD (chronic kidney disease), stage II COPD (chronic obstructive pulmonary disease) High cholesterol History of atrial fibrillation History of edema History of stress test Hx of colonic polyps Hyperlipidemia Hyperparathyroidism Hypothyroidism Idiopathic hypertrophic subaortic stenosis Lesion of lumbar spine Low iron Lumbar degenerative disc disease Lumbar facet arthropathy Lumbar radiculopathy MRSA infection Nephrolithiasis Non-smoker Nonrheumatic mitral valve regurgitation Observed sleep apnea Peripheral neuropathy Permanent atrial fibrillation Restrictive lung disease Sleep apnea Thyroid disease Walker as ambulation aid Wears glasses Home Medications spironolactone 25 mg tablet 25 mg PO BID diuretic 10/23/13 [History Last Taken 11/15/17] levothyroxine 125 mcg tablet 125 mcg PO DAILY thyroid 11/16/17 [History Last Taken 05/21/18 09:30 125 MCG] albuterol sulfate 90 mcg/actuation aerosol inhaler 2 puff inhalation Q4H PRN shortness of breath or wheezing 10/24/22 [History Last Taken Unknown] calcitriol 0.25 mcg capsule 0.25 mcg PO DAILY 10/24/22 [History Last Taken Unknown] calcium gluconate 60 mg calcium (650 mg) tablet 60 mg PO DAILY 10/24/22 [History Last Taken Unknown] cyanocobalamin (vitamin B-12) 1,000 mcg tablet 1,000 mcg PO DAILY 10/24/22 [History Last Taken Unknown] magnesium oxide 400 mg (241.3 mg magnesium) tablet 400 mg PO DAILY 10/24/22 [History Last Taken Unknown] metoprolol tartrate 100 mg tablet 50 mg PO BID 10/24/22 [History Last Taken 08/05/23] potassium chloride 10 mEq tablet,extended release 20 meq PO DAILY 10/24/22 [History Last Taken Unknown] rivaroxaban 20 mg tablet (Xarelto) 20 mg PO DAILY 10/24/22 [History Last Taken 08/01/23] ibandronate 150 mg tablet 150 mg PO QMONTH 11/12/22 [History Last Taken Unknown] diltiazem HCl 120 mg capsule,extended release 24 hr 120 mg PO DAILY 06/26/23 [History Last Taken Unknown] trazodone 100 mg tablet 100 mg PO QHS 06/26/23 [History Last Taken Unknown] atorvastatin 20 mg tablet 20 mg PO QHS 30 days #30 tabs 06/28/23 [Rx Last Taken Unknown] sennosides 8.6 mg-docusate sodium 50 mg tablet (Stool Softener-Stimulant Laxative) 2 tab PO BID PRN PRN Constipation #0 tabs 06/28/23 [Rx Last Taken Unknown] fluticasone fur. 200 mcg-umeclid 62.5 mcg-vilant 25 mcg inhalat.powder (Trelegy Ellipta) 1 inh inhalation DAILY 07/10/23 [History Last Taken Unknown] torsemide 20 mg tablet 20 mg PO BID 07/30/23 [History Last Taken Unknown] Allergy/AdvReac Type Severity Reaction Status Date / Time Tetracyclines Allergy Swelling Verified 08/05/23 13:35 Family History Father Myocardial infarction CAD (coronary artery disease) Heart disease Hypertension Mother Hypertension Diabetes Surgical History (Updated 07/30/23 @ 13:48 by Kendal Da Silva) History of cardiac catheterization History of lung surgery History of surgery on lower extremity History of transesophageal echocardiography (JAMEE) Hx of cardiovascular stress test Hx of colonoscopy Hx of echocardiogram Hx of tonsillectomy Social History household members: none current occupational status: retired Smoking Status: Never smoker alcohol intake: never substance use type: does not use caffeine: Yes Type: carbonated beverages ROS Constitutional Constitutional: Denies body ache(s), chills, fatigue or fever(s) Eyes Eyes: Denies diplopia, eye pain or loss of vision ENT HEENT: Denies dysphagia, nasal congestion, nasal discharge or sore throat Cardiovascular Cardiovascular: Denies chest pain, cold extremities or palpitations Respiratory/Chest Respiratory/Chest: Denies chest congestion, cough, dyspnea or wheezing Gastrointestinal Gastrointestinal: Denies abdominal pain, constipation, diarrhea, nausea or vomiting Genitourinary Genitourinary: Denies dysuria, hematuria, urinary frequency, urinary hesitancy, urinary incontinence or urinary urgency Musculoskeletal Musculoskeletal: Denies joint pain, joint stiffness or joint swelling Integumentary Integumentary: Denies jaundice, lesions, pruritus or rash Neurologic Neurologic: Denies dizziness, numbness or seizures Psychiatric Psychiatric: Denies anxiety or depression Endocrine Endocrinology: Denies cold intolerance, heat intolerance, polydipsia or polyuria Hematologic/Lymphatic Hematologic/Lymphatic: Reports anemia, easy bleeding and easy bruising Allergic/Immunologic Allergic/Immunologic: Denies rhinitis, hives, urticaria or wheezing Vital Signs Vital Signs Vital Signs: 08/05/23 13:36 08/05/23 13:36 Temperature 97.1 F L Temperature Source Temporal Pulse Rate 93 Respiratory Rate 16 Respiratory Pattern Normal Blood Pressure 107/76 Blood Pressure Mean 86 Blood Pressure Source Monitor Blood Pressure Position Semi-Fowlers Blood Pressure Location Right Arm Pulse Ox 98 Oxygen Delivery Method Room Air Weight Weight: 210 lb Body Mass Index (BMI) 31.9 Physical Exam Const alert, oriented x3, no apparent distress, healthy appearing and well nourished General Appearance: cooperative, comfortable, well kempt and well developed Orientation / Consciousness: awake and oriented to person HEENT Head and Scalp: normocephalic and atraumatic Face and Sinus: normal facial exam Mouth: oral and palatal mucosa normal Eyes General Eye: normal appearance of both eyes Neck full ROM Lymph Lymphatic: no lymphadenopathy noted Chest inspection of chest normal Resp normal respiratory effort and no use of accessory muscles Cardio regular rate and regular rhythm GI normal to inspection, nondistended, normoactive bowel sounds, soft to palpation, non-tender, non-distended and no masses Auscultation: normoactive bowel sounds Palpation: soft Percussion: normal to percussion Rectal Exam: visual inspection normal and normal sphincter tone no CVA tenderness Back/Spine no CVA tenderness and normal ROM Extremity normal to inspection Peripheral Pulses: Yes pulses 2+ throughout Skin no rashes or lesions noted General Skin Exam: no breakdown, elasticity normal and turgor normal Neuro oriented x3 Motor Exam: strength 5/5 throughout Psych mental status grossly normal Appearance: grossly normal Attitude: calm Activity / Motor Behavior: appropriate eye contact Speech: normal speech Thought Process: normal thought process Thought Content: normal thought content Attention / Concentration: attention grossly intact Memory / Cognition: memory grossly intact Insight: insight good Judgement: judgement good Assessment & Plan Assessment/Plan (1) Encounter for screening for malignant neoplasm of colon: PLAN: He was explained alternatives, benefits, risk including not withstanding bleeding, infection, sepsis, perforation, need for emergent surgery and . He will have an ASA of 3.
--- NOTE | 2023-08-05 14:15 | COLBX_PTH ---
PATHOLOGY RESULTS PATIENT: YASMINE THOMAS LOC: EN U#:[id number] AGE/SX: 68/M ROOM: RE08/05/[address]: Dr. Rashad Bronson DO : 1955 BED: DIS: 08/05/2023 SPEC #: [id number] RECD: 08/06/23 08:02 STATUS: CHA MARCO #: [id number] FEDERICO: 08/05/23 14:[address]: Rashad Bronson DEPT: SURGICAL PATHOLOGY RECD BY: Haritha Barlow ENTERED: 08/06/23 08:03 SP TYPE: COLON BX OTHR DR: Dr. Jay Wahl DO Tissues: Ascending colon Procedures: Surgery Specimen Level IV HEADER OPERATION: Colonoscopy - open access with biopsy PRE-OP DIAGNOSIS: Screening TISSUE SUBMITTED: Ascending colon polyp MICROSCOPIC DIAGNOSIS Ascending colon polyp, biopsy: Fragments of tubular adenoma. AM:freida 08/07/2023 MICROSCOPIC DESCRIPTION Slides are reviewed. GROSS DESCRIPTION Received in fixative is one container labeled with the patient's name and designated ascending colon polyp. The specimen consists of two irregular fragments of light kumar soft tissue that in aggregate measure 0.6 x 0.3 x 0.1 cm. The specimen is totally submitted in one cassette. / SJ:rg 08/06/2023 TC:5 CPT: 83423
--- NOTE | 2023-08-05 14:30 | OP.CCLET_ITS ---
08/05/2023 Jay Wahl Do Re : Colonoscopy procedure for Ramón Chauhan Dear Maryuri This procedure was performed on Saturday, August 05, 2023. My impressions and recommendations are as follows: Impressions : - One 5 mm polyp in the ascending colon, removed with a cold snare. Resected and retrieved. - Diverticulosis in the recto-sigmoid colon and in the sigmoid colon. - The examination was otherwise normal on direct and retroflexion views. Recommendations : - Discharge patient to home. - Resume previous diet. - Continue present medications. - Await pathology results. - Repeat colonoscopy in 5 years for surveillance. My findings are described in the full procedure note, which is enclosed. If I can be of further assistance, please feel free to contact me at . Sincerely, Rashad Bronson, 08/05/2023 2:29:28 PM This report has been signed electronically.
--- NOTE | 2023-08-05 14:30 | OP.COLON_ITS ---
Patient Name: Ramón Chauhan Procedure Date: 08/05/2023 1:55 PM Date of : 1955 Age: 68 Procedure: Colonoscopy Indications: Screening for colorectal malignant neoplasm Providers: Rashad Bronson DO Referring MD: Jay Wahl Do Medicines: Monitored Anesthesia Care Patient Profile: This is a 68 year old male. Refer to note in patient chart for documentation of history and physical. Last Colonoscopy: more than 10 years ago. Complications: No immediate complications. Procedure: Pre-Anesthesia Assessment: - Prior to the procedure, a History and Physical was performed, and patient medications and allergies were reviewed. The risks and benefits of the procedure and the sedation options and risks were discussed with the patient. All questions were answered and informed consent was obtained. Patient identification and proposed procedure were verified by the physician. Mental Status Examination: normal. CV Examination: normal. Prophylactic Antibiotics: The patient does not require prophylactic antibiotics. Prior Anticoagulants: The patient has taken no anticoagulant or antiplatelet agents. After reviewing the risks and benefits, the patient was deemed in satisfactory condition to undergo the procedure. The anesthesia plan was to use monitored anesthesia care (MAC). Immediately prior to administration of medications, the patient was re-assessed for adequacy to receive sedatives. The heart rate, respiratory rate, oxygen saturations, blood pressure, adequacy of pulmonary ventilation, and response to care were monitored throughout the procedure. The physical status of the patient was re-assessed after the procedure. After I obtained informed consent, the scope was passed under direct vision. Throughout the procedure, the patient's blood pressure, pulse, and oxygen saturations were monitored continuously. The Colonoscope was introduced through the anus and advanced to the cecum, identified by appendiceal orifice and ileocecal valve. The colonoscopy was performed without difficulty. The patient tolerated the procedure well. The quality of the bowel preparation was adequate. The ileocecal valve, appendiceal orifice, and rectum were photographed. Scope In: 2:10:21 PM Scope Withdrawal Time 0 hours 12 minutes 25 seconds Scope Out: 2:26:53 PM Total Procedure Duration Time 0 hours 16 minutes 32 seconds Findings: The perianal and digital rectal examinations were normal. A 5 mm polyp was found in the ascending colon. The polyp was sessile. The polyp was removed with a cold snare. Resection and retrieval were complete. Verification of patient identification for the specimen was done. Estimated blood loss was minimal. A few small-mouthed diverticula were found in the recto-sigmoid colon and sigmoid colon. The exam was otherwise without abnormality on direct and retroflexion views. Impression: - One 5 mm polyp in the ascending colon, removed with a cold snare. Resected and retrieved. - Diverticulosis in the recto-sigmoid colon and in the sigmoid colon. - The examination was otherwise normal on direct and retroflexion views. Recommendation: - Discharge patient to home. - Resume previous diet. - Continue present medications. - Await pathology results. - Repeat colonoscopy in 5 years for surveillance. Procedure Code(s): --- Professional --- 59905, Colonoscopy, flexible; with removal of tumor(s), polyp(s), or other lesion(s) by snare technique CPT copyright 2021 [employer]. All rights reserved. The codes documented in this report are preliminary and upon auditing coder review may be revised to meet current compliance requirements. Rashad Bronson DO 08/05/2023 2:29:28 PM This report has been signed electronically. Number of Addenda: 0 Note Initiated On: 08/05/2023 1:55 PM
[2023-08-05] MEDS: ESMOLOL 100 MG/10 ML IV ×2 (15:02→15:15)
--- OUTSIDE RECORDS SUMMARY | 2023-08-05 17:42 | XMS RPT_ITS | CCD ---
Author Name Unknown Address [address] [place] [address] Organization [facility] Care Team Providers Care Obstetrics Gynecology Physician Name Role Phone ANNELIESE QUIÑONES Unavailable IMCA Unavailable Unavailable KIRT BETHEA Unavailable Unavailable ANNELIESE QUIÑONES JR Unavailable Unav ailable Gabriele Bethea Primary Care Provider [phone] GABRIELE BETHEA MD Primary Care Physician [phone] ROMAR DO, DR BONILLA Primary Care Physician [phone] ROMAR DO, DR BONILLA Primary Care Unavailable [...] Care Unavailable MEDINA THOMPSON MD Attending Unavailable ROMAR DO, DR BONILLA Primary Care Unavailable ROMAR DO, DR BONILLA Attending Unavailable Allergies Allergy Classification Reported Allergen(s) Allergy Type Date of Onset Reaction(s) Facility (14 sources) Tetracycline; Translations: [TETRACYCLINE] Drug Allergy 10-20-2008 Swelling [facility] Repository Medications Current Medications Medication Drug Class(es) Dates Sig (Normalized) Sig (Original) acetaminophen 325 mg / HYDROcodone bitartrate 5 mg oral tablet (5 sources) Opioid Agonist Start: 06-17-2023 take 1 tablet by mouth every six hours as needed for pain acetaminophen-hydr ocodone 325 mg-5 mg oral tablet Dose = 1 tab(s), Oral, q6h, PRN for pain, # 12 tab(s), 0 Refill(s), 95.2 Start Date: 06/17/23 Status: Ordered amoxicillin 875 mg / clavulanate 125 mg oral tablet (2 sources) Penicillin-class Antibacterial Start: 07-03-2023 End: 07-17-2023 take 1 tablet by mouth every twelve hours at mealtime amoxicillin-clavul anate 875 mg-125 mg oral tablet 1 tab(s), Oral, q12h, with food or milk, X 14 day(s), # 28 tab(s), 0 Refill(s), 07/17/23 12:39:00 PM EST, Pharmacy: [facility]/pharmacy #[id number], 170.2, cm, 07/03/23 11:23:00 EST, Height, 99.7, kg, 07/03/23 11:23:00 EST, Dosing Weight Start Date: 07/03/23 Stop Date: 07/17/23 Status: Ordered Anoro Ellipta 62.5 mcg-25 mcg/inh inhalation powder (1 source) Start: 02-14-2022 End: 08-13-2022 take 1 dose by inhalation once daily Anoro Ellipta 62.5 mcg-25 mcg/inh inhalation powder Dose = 1 puff(s), Inhalation, qDay, # 1 EA, 5 Refill(s), Pharmacy: [facility]/pharmacy #[id number], 170.2, cm, 02/14/22 13:23:00 EDT, Height Start Date: 02/14/22 Stop Date: 08/13/22 Status: Ordered atorvastatin 20 mg oral tablet (5 sources) HMG-CoA Reductase Inhibitor Start: 07-03-2023 take 1 tablet by mouth once daily atorvastatin 20 mg oral tablet TAKE 1 TABLET BY MOUTH EVERY DAY FOR BEDTIME Start Date: 07/03/23 Status: Ordered Completed/Discontinued Medications Medication Drug Class(es) Dates Sig (Normalized) Sig (Original) Albuterol (6 sources) beta2-Adrenergic Agonist Start: 10-17-2022 End: 04-15-2023 take 2 puff(s) by inhalation every four hours as needed for wheezing Ventolin HFA MDI (90 mcg/inh) inhalation aerosol 2 puff(s), Inhalation, q4h, PRN Shortness of breath or wheezing, use with spacer chamber. Okay to substitute alternative brand if needed for insurance., # 1 EA, 5 Refill(s), Pharmacy: [facility], 170.2, cm, 10/17/22 14:33:00 EDT, Height, kg, 10/17/22 14:33:00 EDT, Dosing Weight Start Date: 10/17/22 Stop Date: 04/15/23 Status: Ordered Problems Active Problems Problem Classification Problem Date Documented Date Episodic/Chronic Calculus of urinary tract (8 sources) History of calculus of kidney 01-08-2022 Episodic Cardiac dysrhythmias (11 sources) Permanent atrial fibrillation 09-17-2019 Chronic Chronic obstructive pulmonary disease and bronchiectasis (6 sources) Chronic obstructive lung disease 02-14-2022 Chronic Coagulation and hemorrhagic disorders (1 source) Idiopathic thrombocytopenic purpura; Translations: [ITP (idiopathic thrombocytopenic purpura)] Onset: 0 10-04-2009 Chronic Congestive heart failure; nonhypertensive (12 sources) Heart failure with normal ejection fraction; Translations: [Unspecified diastolic (congestive) heart failure] Onset: 4 05-04-2021 Chronic Deficiency and other anemia (3 sources) Anemia 01-16-2023 Episodic Deficiency and other anemia (10 sources) Nutritional anemia 11-11-2022 Episodic Deficiency and other anemia (2 sources) Folate deficiency anemia, unspecified; Translations: [Folate deficiency anemia, unspecified] Onset: 4 Episodic Deficiency and other anemia (2 sources) Nutritional anemia, unspecified; Translations: [Nutritional anemia, unspecified] Onset: 3 Episodic Disorders of lipid metabolism (11 sources) Mixed hyperlipidemia 09-17-2019 Chronic E Codes: Fall (5 sources) Fall in home 07-03-2022 Essential hypertension (11 sources) Essential hypertension 09-17-2019 Chronic Heart valve disorders (11 sources) Non-rheumatic mitral regurgitation 09-17-2019 Chronic Neoplasms of unspecified nature or uncertain behavior (2 sources) Neoplasm of uncertain behavior of skin; Translations: [Neoplasm of uncertain behavior of skin] Onset: 4 Episodic Nonspecific chest pain (11 sources) Chest pain 03-28-2021 Episodic Nutritional deficiencies (12 sources) Cobalamin deficiency; Translations: [Folic acid deficiency] Onset: 4 10-21-2022 Episodic Osteoarthritis (6 sources) Primary osteoarthritis, left wrist; Translations: [Arthritis] Onset: 8 02-02-2021 Chronic Other acquired deformities (5 sources) Lesion of lumbar spine 10-17-2022 Episodic Other aftercare (2 sources) Long-term current use of anticoagulant 06-29-2023 Episodic Other and unspecified benign neoplasm (2 sources) Dysplastic nevus of trunk 06-30-2023 Episodic Other and unspecified benign neoplasm (2 [...] - rhonchi 01-08-2022 Episodic Other circulatory disease (5 sources) Low blood pressure 04-18-2023 Episodic Other circulatory disease (2 sources) Hypotension, unspecified; Translations: [Hypotension, unspecified] Onset: 3 Episodic Other connective tissue disease (8 sources) Muscle weakness of limb 01-08-2022 Episodic Other connective tissue disease (8 sources) Pain in lower limb 01-08-2022 Episodic Other lower respiratory disease (7 sources) Air trapping 01-09-2022 Episodic Other lower respiratory disease (6 sources) Restrictive lung disease 02-14-2022 Episodic Other lower respiratory disease (5 sources) Hemoptysis 01-16-2023 Episodic Other nervous system disorders (5 sources) Peripheral nerve disease 05-21-2022 Chronic Other non-traumatic joint disorders (6 sources) Arthritis of hip 02-14-2022 Chronic Other non-traumatic joint disorders (5 sources) Shoulder pain 03-25-2022 Episodic Other non-traumatic joint disorders (1 source) Arthritis of left wrist; Translations: [Arthritis of left wrist] Onset: 8 04-28-2018 Other nutritional; endocrine; and metabolic disorders (11 sources) Morbid obesity 09-17-2019 Chronic Other nutritional; endocrine; and metabolic disorders (5 sources) Hyperbilirubinemia 04-21-2023 Chronic Other nutritional; endocrine; and metabolic disorders (2 sources) Other disorders of bilirubin metabolism; Translations: [Other disorders of bilirubin metabolism] Onset: 3 Chronic Other nutritional; endocrine; and metabolic disorders (11 sources) H/O: endocrine disorder 09-27-2020 Episodic Other screening for suspected conditions (not mental disorders or infectious disease) (8 sources) Platelet count below reference range; Translations: [Suspected malignant pigmented skin lesion] Onset: 9 10-20-2008 Episodic Kirstie-; endo-; and myocarditis; cardiomyopathy (except that caused by tuberculosis or sexually transmitted disease) (11 sources) Idiopathic hypertrophic subaortic stenosis 09-17-2019 Chronic Pleurisy; pneumothorax; pulmonary collapse (12 sources) Pleural effusion; Translations: [Bilateral pleural effusion] 01-09-2022 Episodic Residual codes; unclassified (11 sources) Obstructive sleep apnea syndrome 09-17-2019 Chronic Residual codes; unclassified (11 sources) Edema 07-22-2019 Episodic Residual codes; unclassified (11 sources) Edema of lower extremity 07-28-2019 Episodic Residual codes; unclassified (5 sources) Peripheral edema 06-19-2023 Episodic Residual codes; unclassified (2 sources) Edema, unspecified; Translations: [Edema, unspecified] Onset: 4 Episodic Rheumatoid arthritis and related disease (6 sources) Arthropathy of lumbar facet joint 02-14-2022 Chronic Skin and subcutaneous tissue infections (2 sources) Local infection of the skin and subcutaneous tissue, unspecified; Translations: [Local infection of the skin and subcutaneous tissue, unspecified] Onset: 4 Episodic Spondylosis; intervertebral disc disorders; other back problems (6 sources) Degeneration of lumbar intervertebral disc 02-14-2022 Chronic Thyroid disorders (16 sources) Hypothyroidism; Translations: [Thyroid nodule] 07-22-2019 Chronic [...] Date Encounter Type Care Provider Facility Start: 07-10-2023 End: 07-11-[address] CHAD EASTON DO Facility:[facility] Start: 07-10-2023 End: 07-10-[address] CHAD EASTON DO [facility] Start: 07-03-2023 End: 07-08-[address] CHAD EASTON DO Facility:[facility] Start: 07-03-2023 End: 07-07-[address] CHAD AESTON DO [facility] Start: 06-25-2023 End: 06-26-[address] CHAD EASTON DO Facility:[facility] Start: 06-25-2023 End: 06-25-[address] CHAD EASTON DO [facility] Start: 06-19-2023 End: 06-24-[address] CHAD EASTON DO Facility:[facility] Start: 06-19-2023 End: 06-23-[address] CHAD EASTON DO [facility] Start: 06-17-2023 End: 06-22-[address] CHAD EASTON DO Facility:[facility] Start: 06-17-2023 End: 06-21-[address] CHAD EASTON DO [facility] Start: 04-25-2023 End: 04-30-[address] CHAD EASTON DO Facility:[facility] Start: 11-04-2022 End: 11-05-[address] CHAD EASTON DO Facility:[facility] Start: 08-08-2022 End: 08-09-[address] CHAD EASTON DO Facility:[facility] Start: 02-25-2022 End: 02-25-[address] HAILEY GUERRERO MD [facility] Start: 02-05-2022 End: 02-05-2022 Patient encounter procedure HARPREET BOSSERS LUGGAGE ATTENDANT-FORESTRY EXTENSION SPECIALIST [facility] Start: 01-08-2022 End: 01-08-[address] CHAD EASTON DO [facility] Start: 08-09-2021 End: 08-13-2021 Outreach Lab GABRIELE BETHEA MD [facility] Start: 06-27-2021 End: 06-27-[address] HAILEY GUERRERO MD [facility] Start: 04-12-2021 End: 04-12-2021 Patient encounter procedure MCKENZIE IRVING LUGGAGE ATTENDANT-FORESTRY EXTENSION SPECIALIST [facility] Start: 04-28-2018 End: 04-28-2018 Patient encounter procedure ANNELIESE QUIÑONES Facility:[facility] Start: 10-21-2008 End: 10-21-2008 Patient encounter procedure Byron Ramey Work Phone: [facility] Start: 10-21-2008 Results Only Byron merino Work Phone: [facility] Procedures Date Procedure Procedure Detail Performing Clinician Start: 02-25-[address] YANIRA EASTON DO Plan of Treatment Date Care Activity Detail Author Start: 02-15-2020 Influenza vaccination INFLUENZA (#1) [facility] Start: 2019 ADVANCE DIRECTIVE DISCUSSION ADVANCE DIRECTIVE DISCUSSION [facility] Start: 2019 PNEUMOVAX AGE 65 AND OVER WITH 5YR LOOKBACK (#1) PNEUMOVAX AGE 65 AND OVER WITH 5YR LOOKBACK (#1) [facility] Start: 12-22-2011 DIABETES SCREEN DIABETES SCREEN [facility] Start: 2009 PROSTATE CANCER SCRE ENING DISCUSSION PROSTATE CANCER SCREENING DISCUSSION [facility] Start: 2004 SHINGRIX VACCINE (1 of 2) PAREKH GRIX VACCINE (1 of 2) [facility] Start: 2004 Tuberculosis screening COLOREC GREGORY CANCER SCREENING,SEE MODIFIER [facility] Start: 1989 LIPID SCREEN LIPID SCREEN [facility] Start: 1973 Urine microalbumin profile DTAP,TDAP ,TD (1 - Tdap) [facility] Immunizations Immunization Date Immunization Notes Care Provider [facility] 04-18-2023 influenza, high dose seasonal, preservative-free; Translations: [Fluad Quadrivalent PF ] DR CHAD EASTON DO [facility] 07-03-2022 Pneumococcal conjuga te PCV20, polysaccharide [id number] conjugate, adjuvant, PF; Translations: [Prevnar 20] DR CHAD EASTON DO [facility] 03-21-2022 SARSCoV2 mRNA(uxxojejnplx42l+)biv al vac; Translations: [[employer] COVID-19 (12y+) Bivalent Booster Vaccine PF] DR CHAD EASTON DO [facility] 03-21-2022 influenza, high dose seasonal, preservative-free DR CHAD EASTON DO [facility] 05-08-2021 influenza, high dose seasonal, preservative-free; Translations: [Fluad Quadrivalent PF ] DR HAILEY GUERRERO MD [facility] 12-07-2020 SARS-CoV-2 (COVID-19 ) [id number] vaccine GABRIELE BETHEA MD [facility] Payers Date Payer Category Payer Private Health Insurance [id number] 1955 Unknown [id number] 2.16.8 [id number] 1955 Unknown [id number] 2.16.8 [id number] 1954 Unknown [id number] 2.16.8 [id number] 1954 Unknown [id number] 2.16.8 [id number] 1954 Unknown [id number] 2.16.8 [id number] 1954 Unknown [id number] 2.16.8 [id number] 1954 Unknown [id number] 2.16.8 [id number] 1954 Unknown [id number] 2.16.8 [id number] 1955 Unknown [id number] 2.16.8 [id number] Unknown [id number] Social History Date Type Detail Facility Start: 10-20-2008 End: 07-22-2019 Tobacco smoking status MAIS Never smoker [facility] Start: 10-20-2008 Alcohol intake Not Asked [facility] Sex Assigned At Not on file [facility] Sex Assigned At Male [facility] Clinical Notes 01-08-2022 to 07-05-2023 LaboratoryLaboratoryLaboratoryLaboratoryLaboratoryLaboratoryLaboratoryRadiologyL aboratoryRadiologyLaboratoryRadiologyLaboratory Note Date & Type Note Facility 07-05-2023 Note . MICRO - Microbiology PROCEDURE: Culture Wound Aerobic with Gram Stain [*1] SOURCE: Abscess BODY SITE: Toe COLLECTED DATE/TIME: 07/03/2023 12:27 EST RECEIVED DATE/TIME: 07/03/2023 21:13 EST START DATE/TIME: 07/03/2023 21:14 EST FREE TEXT SOURCE: FINAL REPORTS Final Report [] Verified Date/Time/Personnel: 07/05/2023 08:56 EST Rare normal skin cricket present. Sensitivity testing not indicated. PRELIMINARY REPORTS Preliminary Report [] Verified Date/Time/Personnel: 07/04/2023 12:02 EST No growth to date STAINS GS [] Verified Date/Time/Personnel: 07/03/2023 21:43 EST 1+ Gram Positive Cocci Rare Gram Positive Rods Performing Locations *1: This test was performed at: [address], [facility] , [facility] ([place]) 01-08-2022 Note ORIGINAL EXAMINATION: TWO XRAY VIEWS [...] 01/08/2022 10:07:46 PM Ordering Provider: CHAD EASTON [facility] 01-08-2022 Note ORIGINAL EXAMINATION: TWO XRAY [...] 01/08/2022 10:07:46 PM Ordering Provider: CHAD EASTON [facility] Evaluation + Plan note Future Appointments Appointment Date:05/03/2021 01:15:00 PM Scheduled Provider:GABRIELE BETHEA MD Location:[facility] Appointment Type:PC OV Appointment Date:05/04/2021 10:15:00 AM Scheduled Provider: Location:[facility] Appointment Type:CV OV Future Scheduled TestsComplete Blood Count 11/27/20Complete Metabolic Panel 11/27/20 [facility] Evaluation + Plan note Future Appointments Appointment Date:08/03/2021 02:00:00 PM Scheduled Provider:GABRIELE BETHEA MD Location:[facility] Appointment Type:PC OV Appointment Date:08/10/2021 10:00:00 AM Scheduled Provider: Location:[facility] Appointment Type:CV OV Future Scheduled TestsComplete Blood Count 11/27/20Complete Metabolic Panel 11/27/20 [facility] Evaluation + Plan note Future Appointments Appointment Date:11/08/2021 03:00:00 PM Scheduled Provider:GABRIELE BETHEA MD Location:[facility] Appointment Type:PC OV Future Scheduled TestsUrinalysis 08/09/21N-Terminal proBNP 02/07/22Complete Blood Count 11/27/20Complete Metabolic Panel 11/27/20 [facility] Evaluation + Plan note Future Appointments Appointment Date:02/13/2022 01:00:00 PM Scheduled Provider: [facility] App[facility] Type:CV OV Appointment Date:02/14/2022 01:30:00 PM Scheduled Provider:CHAD EASTON DO Location:[facility] Appointment Type:PC OV Follow Up Future Scheduled TestsUrinalysis 08/09/21N-Terminal proBNP 02/07/22 [facility] Evaluation + Plan note Future Appointments Appointment Date:02/14/2022 01:30:00 PM Scheduled Provider:CHAD EASTON DO Location:[facility] Appointment Type:PC OV Follow Up Appointment Date:02/25/2022 02:00:00 PM Scheduled Provider: Location:[facility] Appointment Type:CV Procedure - AOH Echo Appointment Date:03/15/2022 11:30:00 AM Scheduled Provider: Location:[facility] Appointment Type:CV OV Future Scheduled TestsUrinalysis 08/09/21N-Terminal proBNP 02/07/22 [facility] Evaluation + Plan note Future Appointments Appointment Date:03/15/2022 11:30:00 AM Scheduled Provider: [facility] App[facility] Type:CV OV Appointment Date:03/21/2022 02:00:00 PM Scheduled Provider:CHAD EASTON DO Location:[facility] Appointment Type:PC OV Follow Up Future Scheduled TestsUrinalysis 08/09/21N-Terminal proBNP 02/07/22 [facility] Evaluation + Plan note Future Appointments Appointment Date:06/25/2023 01:00:00 PM Scheduled Provider:CHAD EASTON DO Location:[facility] Appointment Type:PC OV Appointment Date:07/08/2023 02:00:00 PM Scheduled Provider:CHAD EASTON DO Location:[facility] Appointment Type:PC Wellness Medicare Appointment Date:08/25/2023 01:00:00 PM Scheduled Provider:MCKENZIE IRVING Location:[facility] Appointment Type:CV OV Future Scheduled TestsComplete Blood Count 06/19/23US Thyroid 06/19/23 [facility] Evaluation + Plan note Future Appointments Appointment Date:06/27/2023 01:15:00 PM Scheduled Provider: Location:[facility] Appointment Type:PC Nurse Appointment Date:07/08/2023 02:00:00 PM Scheduled Provider:CHAD EASTON DO Location:[facility] Appointment Type: Wellness Medicare Appointment Date:08/25/2023 01:00:00 PM Scheduled Provider:MCKENZIE IRVING Location:[facility] Appointment Type:CV OV Future Scheduled TestsComplete Blood Count 06/19/23US Thyroid 06/19/23 [facility] Evaluation + Plan note Future Appointments Appointment Date:07/09/2023 03:30:00 PM Scheduled Provider:ELHAM MORALES Location:[facility] Appointment Type: OV Hospital Follow-Up Appointment Date:07/10/2023 01:00:00 PM Scheduled Provider: Location:[facility] Appointment Type:US Thyroid Appointment Date:07/23/2023 11:30:00 AM Scheduled Provider:CHAD EASTON DO Location:[facility] Appointment Type:PC Wellness Medicare Appointment Date:08/25/2023 01:00:00 PM Scheduled Provider:MCKENZIE IRVING Location:[facility] Appointment Type:CV OV Future Scheduled TestsBasic Metabolic Panel 06/30/23Clostridium difficile toxin A and B (PCR) (AO) 07/03/23Complete Blood Count 06/30/23US Thyroid 07/10/23 [facility] Evaluation + Plan note Future Appointments Appointment Date:2023 01:30:00 PM Scheduled Provider:MCKENZIE IRVING Location:[facility] Appointment Type:CV OV Appointment Date:07/23/2023 11:30:00 AM Scheduled Provider:CHAD EASTON DO Location:[facility] Appointment Type:PC Wellness Medicare Future Scheduled TestsBasic Metabolic Panel 06/30/23Clostridium difficile toxin A and B (PCR) (AO) 07/03/23Complete Blood Count 06/30/23 [facility] Hospital course Narrative No data available for this section [facility] Hospital Discharge instructions No data available for this section [facility] Progress note No data available for this section [facility] Summary Purpose Family History No Family [...] CREATED AUTHOR AUTHOR'S ORGANIZ ATION 05/24/2018 [facility] DATE CREATED AUTHOR AUTHOR'S ORGANIZ ATION 07/12/2023 [facility] ([place]) Source Comments (unrecognize d section and content) In the event this informatio n is protected by the Federal Confidentiality of Alcohol and Drug Abuse Patient Records regulations: The Federal rules restrict any use of the information to criminally investigate or prosecute any alcohol or drug abuse patient.[facility] Care Team (unrecognized sect ion and content) Care Team Personnel Name: GABRIELE BETHEA MD Position: P4 Physician - Primary Care Med Service: Active Provider Member Role: Primary Care Physician Address: Address: [address] [place] [address]- Care Team Related Persons Name: CRISTINE SACHA Care Team Personnel Name: CHAD EASTON DO Position: P4 Physician - Primary Care Member Role: Primary Care Physician Address: Address: [address] [place] [address]- Care Team Related Persons Name: SHELLY COLUNGARICIA Care Team Personnel Name: CHAD EASTON DO Position: P4 Physician - Primary Care Med Service: Active Provider Member Role: Primary Care Physician Address: Address: [address] [place] [address] Care Team Related Persons Name: ANGELAMIRSACHA Patient Care team informatio n (unrecognized section and content) Care Team Personnel Name: CHAD EASTON DO Position: P4 Physician - Primary Care Member Role: Primary Care Physician Address: Address: [address] [place] [address]- Care Team Related Persons Name: CRISTINE SACHA Care Team Personnel Name: CHAD EASTON DO Position: P4 Physician - Primary Care Member Role: Primary Care Physician Address: Address: [address] [place] [address]- Care Team Related Persons Name: CRISTINE SACHA Care Team Personnel Name: CHAD EASTON DO Position: P4 Physician - Primary Care Member Role: Primary Care Physician Address: Address: [address] [place] [address]- Care Team Related Persons Name: NISSAVINAY SACHA Care Team Personnel Name: CHAD EASTON DO Position: P4 Physician - Primary Care Member Role: Primary Care Physician Address: Address: [address] [place] [address] Care Team Related Persons Name: CRISTINE SACHA Care Team Personnel Name: CHAD EASTON DO Position: P4 Physician - Primary Care Member Role: Primary Care Physician Address: Address: [address] [place] [address]- Care Team Related Persons Name: SACHA COLUNGA [...] BE BASED ON THE PRIMARY CLINICAL RECORDS. [facility]. provides no warranty or guarantee of the accuracy or completeness of information in this document.
== END 2023-08-05 16:42 | disposition home or self-care (01) ==
LOC: EN 13:09 → AC 13:13
PROVIDERS: PCP Student in an Organized Health Care Education/Training Program; Referring Provider Student in an Organized Health Care Education/Training Program; Visit Provider Internal Medicine Gastroenterology
PROC: 0DJD8ZZ Inspection of Lower Intestinal Tract, Via Natural or Artificial Opening Endoscopic (ICD-10-PCS; CPT 45378; principal; 2023-08-05 14:10)
DX: Z12.11 Encounter for screening for malignant neoplasm of colon (principal); J44.9 Chronic obstructive pulmonary disease, unspecified; I13.0 Hypertensive heart and chronic kidney disease with heart failure and stage 1 through stage 4 chronic kidney disease, or unspecified chronic kidney disease; I50.30 Unspecified diastolic (congestive) heart failure; I48.21 Permanent atrial fibrillation; E78.00 Pure hypercholesterolemia, unspecified; Z79.51 Long term (current) use of inhaled steroids; K63.5 Polyp of colon; Z79.01 Long term (current) use of anticoagulants; N18.2 Chronic kidney disease, stage 2 (mild); K57.30 Diverticulosis of large intestine without perforation or abscess without bleeding; Z79.899 Other long term (current) drug therapy; E03.9 Hypothyroidism, unspecified
CPT/HCPCS: 45385; 88305; J7120; J2405

== ENCOUNTER → 2023-08-19 | Outpatient (CLI) | payer MEDICARE, SELFPAY ==
--- NOTE | 2023-08-19 15:37 | MRI_ITS ---
STUDY: MRI LEFT FOREFOOT WITHOUT CONTRAST REASON FOR EXAM: Male, 68 years old. GREAT TOE OSTEOMYELITIS TECHNIQUE: Standardized fat and water weighted pulse sequences were obtained in all 3 orthogonal planes. COMPARISON: Left foot radiographs dated 06/26/2023. FINDINGS: There is increased STIR marrow signal in the tuft of the distal phalanx of the great toe (sagittal STIR series 4 images 17-18), concerning for early developing osteomyelitis. Normal bone marrow of the remainder of the phalanges, metatarsals, and visualized distal tarsal row, without fracture, periostitis, erosions or reactive bone edema. There is a bipartite tibial hallux sesamoid. Normal joint spaces, without effusions. There are no extraarticular fluid collections. Normal visualized Lisfranc joints and normal Lisfranc ligament. Normal intermetatarsal spaces without intermetatarsal (Kemp) neuroma or bursitis. Normal visualized extensor digitorum longus, extensor hallucis longus, flexor digitorum brevis and flexor hallucis longus tendons. Normal visualized plantar fascia without fasciitis, fibromatosis or tear. Intact intrinsic muscles of the foot. There is moderate to severe subcutaneous soft tissue edema along the dorsum of the foot. There is no discrete fluid collection or drainable abscess. MRI/Lower Ext/No Jt/w/o IMPRESSION: Increased STIR marrow signal in the tuft of the distal phalanx of the great toe, concerning for early developing osteomyelitis. Moderate to severe subcutaneous soft tissue edema along the dorsum of the foot. Electronically Signed: Darius Browning MD at 9:08 EST ,
== END | disposition home or self-care (01) ==
LOC: MRI 15:29
PROVIDERS: PCP Student in an Organized Health Care Education/Training Program; Referring Provider Podiatrist; Visit Provider Podiatrist
DX: M86.9 Osteomyelitis, unspecified (principal)
CPT/HCPCS: 73718

== ENCOUNTER → 2023-09-04 | Outpatient (CLI) | payer MEDICARE, SELFPAY ==
[2023-09-04 11:10] LABS: CRP < 2.90 mg/L (0.0-3.0)
[2023-09-04 11:11] LABS: Erythrocyte Sedimentation Rate 5 mm/hr (0-20)
[2023-09-04 11:14] LABS: Absolute Lymphocyte Count 1.36 X10^3/uL (0.83-4.51); Absolute Neutrophil Count 4.2 X10^3/uL (2.0-7.7); Basophil# 0.07 X10^3/uL; Basophil% 1.1 % (0-1); Eosinophil# 0.12 X10^3/uL; Eosinophils% 1.8 % (0-5); Hematocrit 39.1 % (40-54); Hemoglobin 12.3 g/dL (13.0-16.5); Lymphocyte # 1.36 X10^3/ul (0.83-4.51); Lymphocyte % 20.5 % (19-41); Mean Corp Hgb Conc 31.5 g/dL (32-36); Mean Corpuscular Hgb 29.3 pg (27.0-32.0); Mean Corpuscular Volume 93.1 fL (80-94); Mean Platelet Vol. 12.1 fl (6.2-12.0); Monocyte# 0.87 X10^3/uL; Monocyte% 13.1 % (0-10); NRBC Flagged by Analyzer 0 % (0-5); Neutrophil # 4.18 X10^3/uL (2.7-7.7); Platelet Count 156 K/mm3 (150-450); RBC Distribution Width CV 13.1 % (11.6-14.6); RBC Distribution Width SD 44.6 fl (35.1-43.9); White Blood Count 6.6 K/mm3 (4.4-11.0)
[2023-09-06 11:56] LABS: AST(SGOT) 27 U/L (15-37); Alanine Aminotransfer ALT/SGPT 19 U/L (16-61); Albumin, Serum 3.4 g/dL (3.2-5.0); Alkaline Phosphatase 105 U/L (45-117); Anion Gap 7 (5-15); BUN 13 mg/dL (7-18); BUN/Creat Ratio 11.1 RATIO (10-20); Calcium,Total 9.4 mg/dL (8.5-10.1); Chloride 102 mmol/L (98-107); Creatinine, Serum 1.17 mg/dL (0.70-1.30); EST Glomerular Filtration Rate 66 mL/min (>60); Est Glom Filt Rate - Afr Amer 80 mL/min (>60); Globulin 3.4 g/dL (2.2-4.2); Glucose 86 mg/dL (74-106); Potassium 4.1 mmol/L (3.5-5.1); Protein, Total 6.8 g/dL (6.4-8.2); Sodium Level 138 mmol/L (136-145)
== END | disposition home or self-care (01) ==
LOC: PAVLAB 10:05
PROVIDERS: PCP Student in an Organized Health Care Education/Training Program; Referring Provider Podiatrist; Visit Provider Podiatrist
DX: M86.372 Chronic multifocal osteomyelitis, left ankle and foot (principal)
CPT/HCPCS: 36415; 80053; 85025; 85652; 86140

== ENCOUNTER → 2023-11-25 | Outpatient (CLI) | payer MEDICARE, SELFPAY ==
[2023-11-25 12:23] LABS: PTHIN 52.4 pg/mL (18.4-80.1)
[2023-11-25 12:27] LABS: Vitamin D,25 Hydroxy 86.3 ng/mL
[2023-11-25 12:34] LABS: ALB/GLOB Ratio 0.9 RATIO (0.9-2.4); AST(SGOT) 17 U/L (15-37); Alanine Aminotransfer ALT/SGPT 15 U/L (16-61); Albumin, Serum 3.4 g/dL (3.2-5.0); Alkaline Phosphatase 99 U/L (45-117); Anion Gap 5 (5-15); BUN 13 mg/dL (7-18); Calcium,Total 9.6 mg/dL (8.5-10.1); Chloride 99 mmol/L (98-107); Cholesterol 99 mg/dL (200); Creatinine, Serum 1.08 mg/dL (0.70-1.30); EST Glomerular Filtration Rate 72 mL/min (>60); Est Glom Filt Rate - Afr Amer 87 mL/min (>60); Globulin 3.6 g/dL (2.2-4.2); Glucose 90 mg/dL (74-106); High Density Lipoprotein 55 mg/dL; Magnesium 1.9 mg/dL (1.6-2.6); Potassium 3.6 mmol/L (3.5-5.1); Sodium Level 134 mmol/L (136-145); Thyroid Stim Hormone (TSH) 0.46 uIU/mL (0.358-3.74); Triglycerides 43 mg/dL; Very Low Density Lipoprotein 9 mg/dL (5-40)
== END | disposition home or self-care (01) ==
LOC: PAVLAB 11:19
PROVIDERS: PCP Student in an Organized Health Care Education/Training Program; Referring Provider Internal Medicine Endocrinology, Diabetes & Metabolism; Visit Provider Internal Medicine Endocrinology, Diabetes & Metabolism
DX: E89.0 Postprocedural hypothyroidism (principal); E78.2 Mixed hyperlipidemia; E55.9 Vitamin D deficiency, unspecified; E21.1 Secondary hyperparathyroidism, not elsewhere classified
CPT/HCPCS: 36415; 80053; 80061; 82306; 83735; 83970; 84443

== ENCOUNTER → 2024-06-02 | Outpatient (CLI) | payer MEDICARE, SELFPAY ==
[2024-06-02 15:24] LABS: Amphetamine Urine VISTA NEGATIVE (<1000 ng/mL); Barbiturate Urine VISTA NEGATIVE (< 200 ng/mL); Benzodiazepine Urine VISTA NEGATIVE (< 200 ng/mL); Cocaine Urine VISTA NEGATIVE (< 300 ng/mL); Ecstacy Urine VISTA POSITIVE (< 500 ng/mL); Methadone Urine VISTA NEGATIVE (< 300 ng/mL); PCP Urine VISTA NEGATIVE (< 25 ng/mL); THC Urine VISTA NEGATIVE (< 50 ng/mL); Vista UDS pH Range 7
== END | disposition home or self-care (01) ==
LOC: LAB 14:26
PROVIDERS: PCP Student in an Organized Health Care Education/Training Program; Referring Provider Anesthesiology Pain Medicine; Visit Provider Anesthesiology Pain Medicine
DX: F11.20 Opioid dependence, uncomplicated (principal)
CPT/HCPCS: 80307

== ENCOUNTER → 2024-06-04 | Outpatient (CLI) | payer MEDICARE, SELFPAY ==
[2024-06-04 12:02] LABS: AST(SGOT) 13 U/L (15-37); Alanine Aminotransfer ALT/SGPT 9 U/L (16-61); Albumin, Serum 3.1 g/dL (3.2-5.0); Alkaline Phosphatase 86 U/L (45-117); Anion Gap 7 (5-15); BUN 13 mg/dL (7-18); BUN/Creat Ratio 17.4 RATIO (10-20); Calcium,Total 9.2 mg/dL (8.5-10.1); Chloride 107 mmol/L (98-107); Creatinine, Serum 0.75 mg/dL (0.70-1.30); EST Glomerular Filtration Rate 110 mL/min (>60); Est Glom Filt Rate - Afr Amer 133 mL/min (>60); Globulin 3.1 g/dL (2.2-4.2); Glucose 79 mg/dL (74-106); Magnesium 1.8 mg/dL (1.6-2.6); Potassium 3.9 mmol/L (3.5-5.1); Protein, Total 6.2 g/dL (6.4-8.2); Sodium Level 137 mmol/L (136-145)
== END | disposition home or self-care (01) ==
LOC: LAB 10:58
PROVIDERS: PCP Student in an Organized Health Care Education/Training Program; Referring Provider Internal Medicine Endocrinology, Diabetes & Metabolism; Visit Provider Internal Medicine Endocrinology, Diabetes & Metabolism
DX: E89.0 Postprocedural hypothyroidism (principal); E21.1 Secondary hyperparathyroidism, not elsewhere classified
CPT/HCPCS: 36415; 80053; 83735; 84443

== ENCOUNTER → 2024-08-17 | Outpatient (CLI) | payer MEDICARE, SELFPAY ==
--- NOTE | 2024-08-17 12:37 | MRI_ITS ---
PROCEDURE: MRI ABD WITH AND W/O CONTRAST REASON FOR EXAM: Liver hemangioma, rule out HCC TECHNIQUE: Multiplanar, multisequence MRI of the upper abdomen without and with intravenous gadolinium-based contrast. CONTRAST: 19 mL Clariscan COMPARISON: 01/08/2020. FINDINGS: Variable overall mild motion limitation. Note that some abdominal viscera are partially imaged on some sequences as the exam was optimized for assessment of the liver. Lung bases: Cardiomegaly. Liver: Normal signal characteristics. Mildly lobulated contours without overt serosal nodularity. 1.5 cm lesion in the subcapsular aspect of segment VII demonstrates enhancement pattern typical for hemangioma, similar in size to 10/15/2021 (series 5 image 8). T2 bright nonenhancing 1.9 cm lesion in the subcapsular aspect of segment demonstrates no definite enhancement on the early arterial and early portal venous phases, but demonstrates possible subtle motion degraded peripheral discontinuous nodular enhancement on more delayed portal venous imaging although assessment is limited on(series 5, image 14). This may have increased in size slightly from 1.5 cm on 10/15/2021. Serpiginous T1 dark foci in the subcapsular aspect of segment IVB demonstrates flow voids with enhancement similar to vasculature and appears to connect a prominent branch of the middle hepatic vein with a prominent branch of the left portal vein, consistent with an intrahepatic vascular shunt, 1.8 cm maximally in the axial plane (series 5 image 14). This was probably present previously. Few other punctate T2 bright foci present, difficult to characterize definitively due to tiny size but likely to reflect cysts or hemangiomas. Biliary: Unremarkable. Pancreas: Unremarkable. Spleen: Unremarkable. Adrenals: Unremarkable. Kidneys: Scattered simple and presumed hemorrhagic/proteinaceous cysts, evaluation of intrinsically T1 bright presumed hemorrhagic/proteinaceous cysts is limited in the absence of subtraction imaging to confirm lack of true enhancement on postcontrast imaging. A complex T1 isointense cystic lesion of the upper pole of the right kidney is largely nonenhancing measuring 1.4 x 1.6 cm but demonstrates a thin enhancing internal septation as well as a possible 5-6 mm mural nodule. Note that the kidneys are incompletely imaged on some sequences including postcontrast imaging as the exam was optimized for evaluation of the liver as above. Peritoneum / Retroperitoneum: Unremarkable.. Lymph Nodes: Unremarkable. Major Vessels: As above. Otherwise unremarkable. Bones: 1.0 cm T2 bright enhancing lesion within the L1 vertebral body the left aspect of the, included only on some sequences, probably corresponding to a likely hemangioma on previous CT. Mild lumbar levoscoliosis. Severe degenerative changes of the hips with paralabral cysts and likely right hip joint effusion, minimally and not well evaluated. MRI/MRI Abd WITH and W/O Contrast IMPRESSION: 1. No definite suspicious hepatic lesion identified. 1.5 cm definite and 1.9 c m probable hemangiomas are present, the latter perhaps minimally enlarged from 10/15/2021, further suggesting a benign/indolen t etiology although evaluation is mildly motion limited. 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 This can occur in the setting of her cirrhosis or may be congenital or posttraumatic/postprocedural. Given cardiomegaly, this could conceivably be hemodynamically significant. 2. Indeterminate 1.6 cm somewhat complex cystic right upper pole renal lesion w hich is best considered Bosniak III. Recommend urology consultation, and at a minimum, follow-up renal protocol CT/MRI in 3-6 months for more optimal evaluation and to evaluate short interval stability. The above probable hemangioma can also be evaluated for interval change at that time. 3. Additional description as above. Reading Location: [facility]
== END | disposition home or self-care (01) ==
PROVIDERS: PCP Student in an Organized Health Care Education/Training Program; Referring Provider Internal Medicine; Visit Provider Internal Medicine
DX: E80.6 Other disorders of bilirubin metabolism (principal); D18.03 Hemangioma of intra-abdominal structures
CPT/HCPCS: 74183; A9575; A4216

== ENCOUNTER → 2024-11-30 | Outpatient (CLI) | payer MEDICARE, SELFPAY ==
[2024-11-30 15:20] LABS: ALB/GLOB Ratio 1.3 RATIO (0.9-2.4); AST(SGOT) 21 U/L (<=37); Alanine Aminotransfer ALT/SGPT 12 U/L (<=46); Albumin, Serum 3.8 g/dL (3.4-4.8); Alkaline Phosphatase 96 U/L (40-129); Anion Gap 11 (5-15); BUN 13 mg/dL (4-19); BUN/Creat Ratio 11.5 RATIO (10-20); Calcium,Total 9.6 mg/dL (7.6-11.0); Chloride 96 mmol/L (98-108); EST Glomerular Filtration Rate 72 (>60); Globulin 2.9 g/dL (2.2-4.2); Glucose 87 mg/dL (70-99); Magnesium 2.1 mg/dL (1.5-2.2); Potassium 3.1 mmol/L (3.3-5.1); Protein, Total 6.7 g/dL (5.9-8.4); Sodium Level 140 mmol/L (133-145); Total Bilirubin 1.05 mg/dL (0.00-1.30); Vitamin D,25 Hydroxy 38.2 ng/mL (30-100)
== END | disposition home or self-care (01) ==
LOC: LAB 07:48
PROVIDERS: PCP Student in an Organized Health Care Education/Training Program; Referring Provider Internal Medicine Endocrinology, Diabetes & Metabolism; Visit Provider Internal Medicine Endocrinology, Diabetes & Metabolism
DX: E89.0 Postprocedural hypothyroidism (principal); E55.9 Vitamin D deficiency, unspecified; E83.42 Hypomagnesemia
CPT/HCPCS: 36415; 80053; 82306; 83735; 83970; 84443

== ENCOUNTER → 2024-12-30 | Outpatient (CLI) | payer MEDICARE, SELFPAY ==
[2024-12-30] VITALS (16 sets, daily range): BP systolic 91–128; BP diastolic 45–80; PULSE 75–89; RESP 8–20; TEMP 36.2; O2SAT 87–100; BMI 27.3
--- NOTE | 2024-12-30 08:58 | CT_ITS ---
EXAM: CT-guided biopsy of a right lower lobe nodule adjacent to the right lobe of the liver. CLINICAL HISTORY: Nodular density in the right lower lobe adjacent to the dome of the right lobe of the liver. COMPARISON: Prior CT scan dated November 15, 2024. TECHNIQUE: The patient was in the slightly right anterior oblique position. The procedure as well as the benefits and possible complications including infection, bleeding and pneumothorax were explained to the patient and the patient's . Informed consent was obtained. Conscious sedation was performed. 2 mg of Versed and 50 mcg of fentanyl intravenously. Conscious sedation was started at 10:24 a.m. and terminated at 10:50 a.m.. The patient was independently monitored by the department nurse. The overlying skin was prepped and draped in the usual sterile fashion. Following local anesthetic application, a 20 gauge biopsy needle was placed into the nodule. 6 core biopsies were obtained. The pathologist deemed the specimen adequate. Dose report: CTDI L volume: 19.5 mGy. DLP: 458.94. FINDINGS: Successful CT-guided core biopsies of the right lower lobe nodule adjacent to the right lobe of the liver. The patient tolerated the procedure well. CT/Biopsy/Inj or Needle Placement IMPRESSION: Successful CT-guided core biopsies of the right lower lobe pulmonary nodule adj acent of the right lobe of the liver. The patient tolerated the procedure well. No immediate complication is noted. Reading Location: [place] [address]
[2024-12-30 09:11] LABS: Hematocrit 37.4 % (40-54); Hemoglobin 12.4 g/dL (13.0-16.5); Immature Granulocytes Count 0.010 X10^3/uL (0.0-0.0); Mean Corp Hgb Conc 33.2 g/dL (32-36); Mean Corpuscular Volume 93.0 fL (80-94); Mean Platelet Vol. 10.9 fl (6.2-12.0); NRBC Flagged by Analyzer 0 % (0-5); Platelet Count 136 K/mm3 (150-450); RBC Distribution Width CV 13.5 % (11.6-14.6); RBC Distribution Width SD 46.1 fl (35.1-43.9); Red Blood Count 4.02 M/mm3 (4.6-6.2); White Blood Count 4.2 K/mm3 (4.4-11.0)
[2024-12-30 09:23] LABS: Prothrombin Time (Protime)PT. 15.6 SECONDS (11.7-14.9)
[2024-12-30 09:24] LABS: Partial Thromboplast Time 32.0 Seconds (24.1-36.2)
[2024-12-30] MEDS: Midazolam 2 MG/2 ML Syringe IV (10:24)
[2024-12-30] MEDS: 0.9% Normal Saline (250mL Bag) 250 ML 15 ML IV (10:24)
[2024-12-30] MEDS: fentaNYL 100 MCG/2 ML Ampul IV (10:29)
--- NOTE | 2024-12-30 10:30 | ASPIGT_PTH ---
PATIENT: YASMINE THOMAS LOC: [place] U#:[id number] AGE/SX: 69/M ROOM: RE12/30/[address]: Dr. Sukhjinder Pinto MD : [id number] BED: DIS: 12/30/2024 SPEC #: [id number] RECD: 12/30/24 11:32 STATUS: CHA RELourdes #: [id number] FEDER[place]: 12/30/24 10:[address]: Sukhjinder Pinto DEPT: SURGICAL PATHOLOGY RECD BY: Janice Odom ENTERED: 12/30/24 11:32 SP TYPE: ASP RAD OTHR DR: Dr. Jay Wahl DO Tissues: Liver, NOS Procedures: FNA Specimen Adequacy Special Stain Group II Surgery Specimen Level IV Imprint (control) HEADER OPERATION: CT Guided Liver/Lung Mass PRE-OP DIAGNOSIS: Right Liver/Lung Mass TISSUE SUBMITTED: Right Liver Lung Mass Biopsy Cores x6 MICROSCOPIC DIAGNOSIS A. Liver/Lung, right, mass, CT-guided core biopsy: - Two cores of fibrous tissue with mild acute inflammation, abundant old blood pigment, and hemorrhagic necrosis. - Multiple cores of blood clot. - No evidence of neoplasia is seen in these sections (deeper sections examined). COMMENT The specimen is evaluated at the time of CT by Dr. White. (passes/cores 1 & 2 in formalin container prior to evaluation). Immediate Evaluation = #3 - Blood, Debris #4 - Blood, Debris #5 - Adequate #6 - Adequate MICROSCOPIC DESCRIPTION Slides are reviewed. GROSS DESCRIPTION A. Received in formalin labeled with the patient's name and date of . Designated as liver/lung BX is a 0.5 x 0.3 x <0.1 cm aggregate of red-brown threadlike tissue cores. Entirely submitted in 2 cassettes. IL 12/30/2024 CPT: 10476,29189
[2024-12-30] MEDS: Lidocaine 2% (20 ml mdv) 20 ML Vial INFILT (10:40)
--- NOTE | 2024-12-30 10:55 | RAD_ITS ---
EXAM: AP inspiration expiration views. CLINICAL HISTORY: Status post biopsy of a right lower lobe lesion. COMPARISON: Prior study dated November 15, 2024. TECHNIQUE: AP inspiration expiration views were obtained. FINDINGS: No evidence of pneumothorax on the immediate post right lung biopsy radiographs. RAD/Chest Insp/Exp 2 View IMPRESSION: No pneumothorax on the immediate post right lung biopsy radiographs. The patient is asymptomatic. Reading Location: [facility]
--- NOTE | 2024-12-30 12:15 | RAD_ITS ---
EXAM: AP inspiration expiration views. CLINICAL HISTORY: Status post right lung biopsy. COMPARISON: Prior study done earlier in the day. TECHNIQUE: AP inspiration expiration views were obtained 2 hours following the right lung biopsy. FINDINGS: No evidence of pneumothorax. The patient is asymptomatic. RAD/Chest Insp/Exp 2 View IMPRESSION: No evidence of pneumothorax on the 2 hour post right lung biopsy radiographs. Reading Location: [place] [address]
== END | disposition home or self-care (01) ==
LOC: CT 08:46
PROVIDERS: Radiology Diagnostic Radiology; PCP Student in an Organized Health Care Education/Training Program; Referring Provider Internal Medicine Hematology & Oncology; Visit Provider Internal Medicine Hematology & Oncology
DX: Z01.818 Encounter for other preprocedural examination (principal); R91.8 Other nonspecific abnormal finding of lung field; R16.0 Hepatomegaly, not elsewhere classified
CPT/HCPCS: 32408; 47000; 36415; 71046; 77012; 85025; 85610; 85730; 88172; 88305; 88313; 99156

== ENCOUNTER → 2025-02-15 | Outpatient (CLI) | payer MEDICARE, SELFPAY ==
[2025-02-15 16:07] LABS: PSA,Total - Annual Screen 0.26 ng/mL (0.02-4.00)
== END | disposition home or self-care (01) ==
LOC: LAB 15:07
PROVIDERS: PCP Student in an Organized Health Care Education/Training Program; Referring Provider Urology; Visit Provider Urology
DX: Z12.5 Encounter for screening for malignant neoplasm of prostate (principal)
CPT/HCPCS: 36415; 84153; G0103

== ENCOUNTER → 2025-04-18 | Outpatient (CLI) | payer MEDICARE, SELFPAY ==
--- NOTE | 2025-04-18 12:18 | CT_ITS ---
PROCEDURE: CHEST WITH CONTRAST 04/18/2025 REASON FOR EXAM: ARROYO CT 11/15/24 RLL LESION F/U, IV CONTRAST TECHNIQUE: Procedure Code: CTCHW Modality: CT Procedure: CHEST WITH CONTRAST Coronal and Sagittal reconstruction series were provided. CONTRAST: VOLUME: mL One or more dose reduction techniques were used (e.g., Automated exposure control, adjustment of the mA and/or kV according to patient size, use of iterative reconstruction technique). RADIATION DOSE SUMMARY: CTDlvol: 35.36 mGy DLP: 602.83 mGycm COMPARISON: 11/15/2024 FINDINGS: A previously noted well-defined soft tissue mass in the right lung base is decreased significantly in size since the previous study. On today's examination that measures 2.5 x 1.8 cm, on the previous study it measured approximately 4.9 by 3.4 cm. Chronic interstitial changes noted elsewhere in both lung todd with nonspecific pleural thickening but there is no organized infiltrate, or effusion, no new suspicious noncalcified mass or nodule. The soft tissue windows show a normal-appearing thyroid gland. No suspicious axillary, mediastinal or perihilar adenopathy. The thoracic aorta tapers normally. There are calcified coronary vessels. Limited cuts through the upper abdomen do not show a suspicious abnormality, there is fatty infiltration of the liver and simple renal cysts are noted. There is however a isodense to left kidney exophytic mass off the upper pole of the left kidney which is incompletely defined measuring 2 point 2 cm. Consider dedicated renal ultrasound or further evaluation of the abdomen and pelvis with CT. Bony structures show degenerative change CT/Chest WITH Contrast IMPRESSION: Coronary artery calcification (CAC) is is present A previously noted soft tissue mass along the right lung base has decreased sig nificantly in size since the previous study, on the previous study measured 4.9 x 3.4 cm, on today's examination and measures 2 .5 x 1.8 cm. Chronic interstitial changes in both lung todd with nonspecific pleural thick ening in both hemithoraces, no organized infiltrate or effusion Fatty liver Incompletely evaluated isodense to left kidney exophytic mass off the upper dariela e of the left kidney. Consider dedicated ultrasound or CT or MRI for further evaluation Reading Location: [address]
[2025-04-18 12:55] LABS: Hematocrit 39.1 % (40-54); Hemoglobin 12.7 g/dL (13.0-16.5); Immature Granulocytes Count 0.030 X10^3/uL (0.0-0.0); Mean Corp Hgb Conc 32.5 g/dL (32-36); Mean Corpuscular Volume 94.9 fL (80-94); Mean Platelet Vol. 11.4 fl (6.2-12.0); NRBC Flagged by Analyzer 0 % (0-5); Platelet Count 120 K/mm3 (150-450); RBC Distribution Width CV 14.1 % (11.6-14.6); RBC Distribution Width SD 49.1 fl (35.1-43.9); Red Blood Count 4.12 M/mm3 (4.6-6.2); White Blood Count 6.6 K/mm3 (4.4-11.0)
== END | disposition home or self-care (01) ==
PROVIDERS: PCP Student in an Organized Health Care Education/Training Program; Referring Provider Internal Medicine Hematology & Oncology; Visit Provider Internal Medicine Hematology & Oncology
DX: R91.8 Other nonspecific abnormal finding of lung field (principal); D63.8 Anemia in other chronic diseases classified elsewhere
CPT/HCPCS: 36415; 71260; 85025; Q9967

== ENCOUNTER → 2025-06-03 | Outpatient (CLI) | payer MEDICARE, SELFPAY ==
--- OUTSIDE RECORDS SUMMARY | 2025-06-03 10:57 | XMS RPT_ITS | CCD ---
Author Organization [facility] Care Team Providers Care Garageman Name Role Phone STEVE QUIÑONES Unavailable IMCA Unavailable Unavailable KIRT VIDAL Unavailable Unavailable STEVE QUIÑONES JR Unavailable Unav ailable Gabriele Vidal Primary Care Provider [phone] GABRIELE VIDAL MD Primary Care Physician [phone] DR JAY EASTON DO Primary Care Physician [phone] Dr. Jay Easton Primary Care Provider [phone] Dr. Jay Easton Referring Provider Dr. Jay Easton Other Provider Dr. Be Orellana Attending Provider Dr. Jay Easton Primary Care Provider [phone] Joan Laureano Attending Provider Unavailabl e Dr. Jay Easton Referring Provider Dr. Sukhjinder Pinto Attending Provider Dr. Jay Easton Primary Care Provider [phone] Dr. Jay Easton Referring Provider [phone] Sukhjinder Pinto Attending Provider Dr. Jay Easton Primary Care Provider [phone] Jay Easton Referring Provider [phone] Sukhjinder Pinto Attending Provider Dr. Jay Easton Primary Care Provider [phone] Michael Christy Emergency Provider Dr. Crystal Emerson Admit Provider Dr. Crystal Emerson Other Provider Dr. Erick Lorenzo Other Provider Dr. Behzad Glez Attending Provider Dr. Behzad Glez Other Provider Dr. Sera Mcdermott Other Provider [phone] Dr. Jay Easton Primary Care Provider [phone] Dr. Elsa Nelson Attending Provider [phone] Crystal Emerson Referring Provider Melva Serrano Attending Provider Unavailable Dr. Jay Easton Referring Provider Friend, Dr. Solorzano Attending Provider [phone] Friend, Dr. Solorzano Other Provider [phone] Dr. Jay Easton Primary Care Provider [phone] Dr. Elsa Nelson Attending Provider [phone] Crystal Emerson Referring Provider Dr. Michael Christy Emergency Provider Dr. Crystal Emerson Admit Provider Dr. Crystal Emerson Other Provider Dr. Erick Lorenzo Other Provider Dr. Behzad Glez Attending Provider Dr. Behzad Glez Other Provider Dr. Sera Mcdermott Other Provider [phone] Melva Serrano Attending Provider Unavailable Dr. Jay Easton Referring Provider Friend, Dr. Solorzano Attending Provider [phone] Friend, Dr. Solorzano Other Provider [phone] SRIDEVI GUTIERREZ, KASSANDRA Attending JAY Manjarrez Primary Care Unavailable JAY EASTON Primary Care Unavailable JAY EASTON Attending Unavailable JAY EASTON Attending Unavailable ROMJAY FINLEY Primary Care Unavailable MCKENZIE SAMSON Attending Unavailab le ROMAR, JAY Primary Care Unavailable ROMAR, JAY Attending Unavailable ROMAR, JAY Primary Care Unavailable SRIDEVI RESIDENTIAL SALES REP-RIVET CATCHER, KASSANDRA Attending Unavai lable ROMAR, JAY Primary Care Unavailable ROMAR, JAY Attending Unavailable ROMAR, JAY Primary Care Unavailable ROMAR, JAY Attending Unavailable ROMAR, JAY Primary Care Unavailable ROMAR, JAY Attending Unavailable ROMAR, JAY Primary Care Unavailable ROMAR, JAY Attending Unavailable ROMAR, JAY Primary Care Unavailable ROMAR, JAY Attending Unavailable ROMAR, JAY Primary Care Unavailable ROMAR, JAY Attending Unavailable ROMAR, JAY Primary Care Unavailable ROMAR, JAY Attending Unavailable ROMAR, JAY Primary Care Unavailable Romar , Dr. Thompson Primary Care Provider [phone] Elyssa MOCTEZUMA, Dr. Wharton Attending Provider Elyssa MOCTEZUMA, Dr. Wharton Referring Provider Tricia ISRAEL, Dr. Hoffman Attending Provider Tricia ISRAEL, Dr. Hoffman Referring Provider Rustam ISRAEL, Dr. Thompson Referring Provider [phone] Newton MOCTEZUMA, Dr. Wen Attending Provider Newton MOCTEZUMA, Dr. Wen Referring Provider Tricia ISRAEL, Dr. Hoffman Other Provider RUSTAM ISRAEL, DR THOMPSON Primary Care Unavailable HARVEY RESIDENTIAL SALES REP-RIVET CATCHER, EDWIN Lynn Attending Reza Easton DO, Dr. Thompson Primary Care Provider [phone] Newton MOCTEZUMA, Dr. Wen Attending Provider Tricia ISRAEL, Dr. Hoffman Attending Provider Tricia ISRAEL, Dr. Hoffman Referring Provider Rustam ISRAEL, Dr. Thompson Referring Provider [phone] Millie MOCTEZUMA, Dr. Slaughter Attending Provider Rustam ISRAEL, Dr. Thompson Primary Care Provider [phone] Millie MOCTEZUMA, Dr. Slaughter Referring Provider Newton MOCTEZUMA, Dr. Wen Attending Provider Rustam ISRAEL, Dr. Thompson Primary Care Physician Wietelorena ISRAEL, Dr. Hoffman Attending Physician Millie MOCTEZUMA, Dr. Slaughter Attending Physician Newton MOCTEZUMA, Dr. Wen Attending Physician Mellisa MOCTEZUMA, Dr. Sami Kruger Attending Physician Mellisa MOCTEZUMA, Dr. Sami Kruger Referring Provider [phone] ROMAR DO, DR THOMPSON Primary Care Unavailable ROMAR DO, DR THOMPSON Attending Unavailable ROMAR DO, DR THOMPSON Primary Care Unavailable ROMAR DO, DR THOMPSON Attending Unavailable ROMAR DO, DR THOMPSON Primary Care Unavailable CESAR MOCTEZUMA, DR HAILEY Taylor Attending Unavailable ROMAR DO, DR THOMPSON Primary Care Unavailable ROMAR DO, DR THOMPSON Attending Unavailable CESAR MOCTEZUMA, DR HAILEY Taylor Attending Unavailable ROMAR DO, DR THOMPSON Primary Care Unavailable ROMAR DO, DR THOMPSON Attending Unavailable ROMAR DO, DR THOMPSON Primary Care Unavailable ROMAR DO, DR THOMPSON Attending Unavailable ROMAR DO, DR THOMPSON Primary Care Unavailable ROMAR DO, DR THOMPSON Attending Unavailable ROMAR DO, DR THOMPSON Primary Care Unavailable CRYSTAL WALDRON PA-C Attending Unavaila ble ROMAR DO, DR THOMPSON Primary Care Unavailable ROMAR DO, DR THOMPSON Primary Care Unavailable WIETECHA DO, DALTON Pham Attending Unavailable ROMAR DO, DR THOMPSON Primary Care Unavailable ROMAR DO, DR THOMPSON Attending Unavailable ROMAR DO, DR THOMPSON Primary Care Unavailable ROMAR DO, DR THOMPSON Attending Unavailable ROMAR DO, DR THOMPSON Primary Care Unavailable CESAR MOCTEZUMA, DR HAILEY Taylor Attending Unavailable ROMAR DO, DR THOMPSON Attending Unavailable ROMAR DO, DR THOMPSON Primary Care Unavailable ROMAR DO, DR THOMPSON Attending Unavailable ROMAR DO, DR THOMPSON Primary Care Unavailable Jay Easton Primary Care Unavailable MellisaSami Referring Unavailable Mellisa, Sami Kruger Attending Unavailable Jay Easton Primary Care Unavailable Dalton Clarke Attending Unavailable Jay Easton Primary Care Unavailable Sukhjinder Pinto Referring Unavailable Sukhjinder Pinto Attending Unavailable Romar, Jay Primary Care Unavailable Basali, Ayman Referring Unavailable Basali, Ayman Attending Unavailable Romar, Jay Primary Care Unavailable Romar, Jay Referring Unavailable Isckarus, Mansour Attending Unavailable Romar, Jay Primary Care Unavailable Romar, Jay Referring Unavailable Isckarus, Mansour Attending Unavailable Romar, Jay Referring Unavailable Newton, Behzad Attending Unavailable Romar, Jay Primary Care Unavailable Wietecha, Dalton Referring Unavailable Wietecha, Dalton Attending Unavailable Romar, Jay Primary Care Unavailable Romar, Jay Primary Care Unavailable Newton, Behzad Referring Unavailable Newton, Behzad Attending Unavailable Wietecha, Dalton Consulting Unavailable Romar, Jay Primary Care Unavailable Romar, Jay Referring Unavailable Isckarus, Mansour Attending Unavailable Romar, Jay Primary Care Unavailable Romar, Jay Referring Unavailable Newton, Behzad Attending Unavailable Romar, Jay Primary Care Unavailable Isckarus, Mansour Referring Unavailable Isckarus, Mansour Attending Unavailable Romar, Jay Primary Care Unavailable Isckarus, Mansour Referring Unavailable Isckarus, Mansour Attending Unavailable Romar, Jay Primary Care Unavailable Wietecha, Dalton Referring Unavailable Wietecha, Dalton Attending Unavailable Allergies Allergy Classification Reported Allergen(s) Allergy Type Date of Onset Reaction(s) Facility (20 sources) Tetracycline; Translations: [TETRACYCLINE] Drug Allergy 9 [facility] Repository (18 sources) Tetracyclines Allergy to substance [address] [facility] (1 source) Tetracyclines Drug allergy (disorder) 5 [facility] Repository Medications Current Medications Medication Drug Class(es) Dates Sig (Normalized) Sig (Original) Tylenol (19 sources) Start: 04-15-2024 Tylenol Oral, PRN as needed for pain, 0 Refill(s) Start Date: 04/15/24 Status: Ordered Medication Dispense Status: Completed Total Allowed Fills: 1 Fills Dispensed: 0 Start: 04-15-2024 Tylenol Oral, PRN as needed for pain, 0 Refill(s) Start Date: 04/15/24 Status: Ordered Repeat number: 1 Start: 04-15-2024 Tylenol Oral, PRN as needed for pain, 0 Refill(s) Start Date: 04/15/24 Status: Ordered Start: 11-20-2023 take 2 capsules by m outh every six hours as needed for pain Start: 11-12-2023 acetaminophen 500 mg oral tablet Dose : 1,000 mg = 2 tab(s), Oral, TID, PRN pain or fever, 0 Refill(s) Start Date: 11/12/23 Status: Ordered acetaminophen 325 mg / HYDRO codone bitartrate 5 mg oral tablet (20 sources) Opioid Agonist Start: 11-20-2023 Start: 06-17-2023 take 1 tablet by taya th every six hours as needed for pain acetaminophen-hydrocodone 325 mg-5 mg or al tablet Dose = 1 tab(s), Oral, q6h, PRN for pain, # 12 tab(s), 0 Refill(s), 95.2 Start Date: 06/17/23 Status: Ordered Medication Dispense Status: Completed Quantity: 12.0 Unit: tab(s) Total Allowed Fills: 1 Fills Dispensed: 0 amoxicillin 875 mg / clavulanate 125 mg oral tablet (3 sources) Penicillin-class Antibacterial Start: 07-03-2023 End: 07-17-2023 take 1 tablet by mouth every twelve hours at mealtime amoxicillin-clavulanate 875 mg-125 mg oral tablet 1 tab(s), Oral, q12h, with food or milk, X 14 day(s), # 28 tab(s), 0 Refill(s), 07/17/23 12:39:00 PM EST, Pharmacy: [facility]/pharmacy #[id number], 170.2, cm, 07/03/23 11:23:00 EST, Height, 99.7, kg, 07/03/23 11:23:00 EST, Dosing Weight Start Date: 07/03/23 Stop Date: 07/17/23 Status: Ordered Start: 06-27-2023 take 1 tablet by taya th twice daily Amoxicillin-Pot Clavulanate Active 1 TABLET PO TWICE A DAY June 27, 2023 12:00am Anoro Ellipta 62.5 mcg-25 mcg/inh inhalation powder (1 source) Start: 02-14-2022 End: 08-13-2022 take 1 dose by inhalation once daily Anoro Ellipta 62.5 mcg-25 mcg/inh inhalation powder Dose = 1 puff(s), Inhalation, qDay, # 1 EA, 5 Refill(s), Pharmacy: [facility]/pharmacy #[id number], 170.2, cm, 02/14/22 13:23:00 EDT, Height Start Date: 02/14/22 Stop Date: 08/13/22 Status: Ordered calcitriol 0.92029 mg oral capsule (20 sources) Vitamin D3 Analog Start: 10-24-2022 take 1 capsule by mouth once daily Start: 09-25-2015 calcitriol 0.2 5 mcg oral capsule Dose : 0.25 mcg = 1 cap(s), Oral, Daily Start Date: 09/25/15 Status: Ordered Medication Dispense Status: Completed Total Allowed Fills: 1 Fills Dispensed: 0 calcium gluconate 650 mg ora l tablet (20 sources) Start: 10-24-2022 take 1 tablet by taya th once daily Start: 09-17-2019 calcium glucon ate 650 mg oral tablet Dose : 650 mg = 1 tab(s), Oral, Daily, # 100 tab(s), 0 Refill(s) Start Date: 09/17/19 Status: Ordered Medication Dispense Status: Completed Quantity: 100.0 Unit: tab(s) Total Allowed Fills: 1 Fills Dispensed: 0 carvedilol 6.25 mg oral tablet (3 sources) alpha-Adrenergic Jaime, beta-Adrenergic Jaime Start: 04-11-2025 carvedilol 6.25 mg oral tablet Dose : 6.25 mg = 1 tab(s), Oral, BID, # 180 tab(s), 3 Refill(s), Pharmacy: [facility], 172.7, cm, 04/11/25 13:35:00 EDT, Height, kg, 04/11/25 13:35:00 EDT, Dosing Weight Start Date: 04/11/25 Status: Ordered Medication Dispense Status: Completed Quantity: 180.0 Unit: tab(s) Total Allowed Fills: 4 Fills Dispensed: 0 Start: 02-25-2025 carvedilol 3.1 25 mg oral tablet Dose : 3.125 mg = 1 tab(s), Oral, BID, # 60 tab(s), 1 Refill(s), Pharmacy: [facility], 172.7, cm, 02/24/25 13:54:00 EDT, Height, kg, 02/24/25 13:54:00 EDT, Dosing Weight Start Date: 02/25/25 Status: Ordered Medication Dispense Status: Completed Quantity: 60.0 Unit: tab(s) Total Allowed Fills: 2 Fills Dispensed: 0 clobetasol propionate 0.0005 mg/mg topical ointment (7 sources) Corticosteroid Start: 05-11-2024 clobetasol 0.0 5% topical ointment 0 Refill(s), 89.5 Start Date: 05/11/24 Status: Ordered Medication Dispense Status: Completed Total Allowed Fills: 1 Fills Dispensed: 0 DME MISCellaneous (3 sources) Start: 09-01-2024 DME MISCellane ous See Instructions, Bilateral knee high compression hose medium 15-20, Dx: R60.9, # 1 EA, 0 Refill(s), Peripheral edema, 83.8 Start Date: 09/01/24 Status: Ordered Quantity: 1.0 Unit: EA Repeat number: 1 Indications: Edema, unspecified; Start: 02-14-2022 DME MISCellane ous See Instructions, spacer chamber, Dx: J44.9, # 1 EA, 0 Refill(s), Pharmacy: [facility]/pharmacy #[id number], 170.2, cm, 02/14/22 13:23:00 EDT, Height, 102 Start Date: 02/14/22 Status: Ordered empagliflozin 10 mg oral tablet (9 sources) Sodium-Glucose Cotransporter 2 Inhibitor Start: 04-11-2025 Jardiance 10 mg oral tablet Dose : 10 mg = 1 tab(s), Oral, qAM, # 90 tab(s), 3 Refill(s), Pharmacy: [facility], 172.7, cm, 04/11/25 13:35:00 EDT, Height, kg, 04/11/25 13:35:00 EDT, Dosing Weight Start Date: 04/11/25 Status: Ordered Medication Dispense Status: Completed Quantity: 90.0 Unit: tab(s) Total Allowed Fills: 4 Fills Dispensed: 0 Start: 12-13-2024 Jardiance 10 m g oral tablet Dose : 10 mg = 1 tab(s), Oral, qAM, # 90 tab(s), 0 Refill(s), Pharmacy: [facility], 172.7, cm, 12/01/24 14:55:00 EDT, Height, kg, 12/01/24 14:55:00 EDT, Dosing Weight Start Date: 01/19/25 Status: Ordered Medication Dispense Status: Completed Quantity: 90.0 Unit: tab(s) Total Allowed Fills: 1 Fills Dispensed: 0 famotidine 20 mg oral tablet (1 source) Histamine-2 Receptor Antagonist Start: 06-10-2024 End: 12-07-2024 famotidine 20 mg oral tablet Dose : 20 mg = 1 tab(s), Oral, BID, PRN Reflux, avoid eating and drinking for 10 minutes after each dose, # 180 tab(s), 1 Refill(s), Pharmacy: [facility], 172.1, cm, 06/10/24 13:23:00 EST, Height, kg, 06/10/24 13:23:00 EST, Dosing Weight Start Date: 06/10/24 Stop Date: 12/07/24 Status: Ordered Quantity: 180.0 Unit: tab(s) Repeat number: 2 FeroSul 325 mg (65 mg elemental iron) oral tablet (6 sources) Start: 02-24-2025 End: 08-23-2025 FeroSul 325 mg (65 mg elemental iron) oral tablet Dose : 325 mg = 1 tab(s), Oral, Mon/Fri/Fri, may take with food to minimize abdominal discomfort, # 39 tab(s), 1 Refill(s), Pharmacy: [facility], 172.7, cm, 02/24/25 13:54:00 EDT, Height, kg, 02/24/25 13:54:00 EDT, Dosing Weight Start Date: 02/24/25 Stop Date: 08/23/25 Status: Ordered Medication Dispense Status: Completed Quantity: 39.0 Unit: tab(s) Total Allowed Fills: 2 Fills Dispensed: 0 Start: 12-01-2024 End: 03-01-2025 FeroSul 325 mg (65 mg elemen juan iron) oral tablet Dose : 325 mg = 1 tab(s), Oral, Mon/Fri/Fri, may take with food to minimize abdominal discomfort, # 39 tab(s), 0 Refill(s), Pharmacy: [facility], 172.7, cm, 12/01/24 14:55:00 EDT, Height, kg, 12/01/24 14:55:00 EDT, Dosing Weight Start Date: 12/01/24 Stop Date: 03/01/25 Status: Ordered Medication Dispense Status: Completed Quantity: 39.0 Unit: tab(s) Total Allowed Fills: 1 Fills Dispensed: 0 Start: 09-09-2024 End: 12-08-2024 FeroSul 325 mg (65 mg elemen juan iron) oral tablet Dose : 325 mg = 1 tab(s), Oral, Mon/Fri/Fri, may take with food to minimize abdominal discomfort, # 39 tab(s), 0 Refill(s), Pharmacy: [facility], 172, cm, 09/01/24 13:32:00 EDT, Height, kg, 09/01/24 13:32:00 EDT, Dosing Weight Start Date: 09/09/24 Stop Date: 12/08/24 Status: Ordered Quantity: 39.0 Unit: tab(s) Repeat number: 1 ferrous sulfate 325 mg oral tablet (11 sources) Start: 12-30-2024 Start: 06-24-2024 End: 09-22-2024 ferrous sulfate 325 mg (65 m g elemental iron) oral tablet Dose : 325 mg = 1 tab(s), Oral, Mon/Fri/Fri, may take with food to minimize abdominal discomfort, # 39 tab(s), 0 Refill(s), Pharmacy: [facility], 172.1, cm, 06/10/24 13:23:00 EST, Height, kg, 06/10/24 13:23:00 EST, Dosing Weight Start Date: 06/24/24 Stop Date: 09/22/24 Status: Ordered Quantity: 39.0 Unit: tab(s) Repeat number: 1 Start: 02-10-2024 End: 05-10-2024 ferrous sulfate 325 mg (65 m g elemental iron) oral tablet Dose : 325 mg = 1 tab(s), Oral, Mon/Fri/Fri, may take with food to minimize abdominal discomfort, # 39 tab(s), 0 Refill(s), Pharmacy: [facility], 170.2, cm, 02/10/24 13:36:00 EDT, Height, kg, 02/10/24 13:17:00 EDT, Dosing Weight Start Date: 02/10/24 Stop Date: 05/10/24 Status: Ordered Swooxyqduca-Dntwxzsdm-Nqdkqx er (10 sources) Start: 07-10-2023 Start: 07-10-2023 Fluticasone-Um eclidin-Vilanter (Trelegy Ellipta) 200-62.5-25 mcg blister with device Active 1 NMA INHALATION DAILY July 10, 2023 1:00am Start: 07-10-2023 Fluticasone-Um eclidin-Vilanter (Trelegy Ellipta) 200-62.5-25 mcg blister with device Active 1 INH INHALATION DAILY July 10, 2023 1:00am Start: 07-10-2023 Fluticasone-Um eclidin-Vilanter (Trelegy Ellipta) 200-62.5-25 mcg blister with device Active 1 INH INHALATION DAILY July 10, 2023 12:00am ibandronic acid 150 mg oral tablet (20 sources) Bisphosphonate Start: 10-17-2022 ibandronate 15 0 mg oral tablet Dose : 150 mg = 1 tab(s), Oral, qmonth, # 1 tab(s), 0 Refill(s) Start Date: 10/17/22 Status: Ordered Medication Dispense Status: Completed Quantity: 1.0 Unit: tab(s) Total Allowed Fills: 1 Fills Dispensed: 0 Icy Hot Advanced Pain Relief (8 sources) Start: 05-04-2024 apply 1 dose topically three times daily as needed for pain Icy Hot Advanced Pain Relief Topical, TID, PRN pain, 0 Refill(s) Start Date: 05/04/24 Status: Ordered Medication Dispense Status: Completed Total Allowed Fills: 1 Fills Dispensed: 0 Start: 05-04-2024 Icy Hot Advanc ed Pain Relief Topical, TID, PRN pain, 0 Refill(s) Start Date: 05/04/24 Status: Ordered Repeat number: 1 Start: 05-04-2024 Icy Hot Advanc ed Pain Relief Topical, TID, PRN pain, 0 Refill(s) Start Date: 05/04/24 Status: Ordered levothyroxine sodium 0.112 mg oral tablet (20 sources) l-Thyroxine Start: 09-09-2024 levothyroxine 112 mcg (0.112 mg) oral tablet Dose : 112 mcg = 1 tab(s), Oral, qDay, # 90 tab(s), 0 Refill(s) Start Date: 09/09/24 Status: Ordered Medication Dispense Status: Completed Quantity: 90.0 Unit: tab(s) Total Allowed Fills: 1 Fills Dispensed: 0 Start: 12-11-2023 Start: 09-27-2020 levothyroxine 125 mcg (0.125 mg) oral tablet Dose : 125 mcg = 1 tab(s), Oral, qDay, # 90 tab(s), 0 Refill(s) Start Date: 09/27/20 Status: Ordered Quantity: 90.0 Unit: tab(s) Repeat number: 1 Start: 11-16-2017 End: 12-11-2023 take 1 tablet by mouth once daily Levothyroxine 125 MCG tablet Discontinued 125 ug PO DAILY November 16, 2017 12:00am December 11, 2023 2:03pm thyroid lidocaine hydrochloride 40 mg/ml topical cream (9 sources) Antiarrhythmic, Amide Local Anesthetic Start: 10-24-2022 Lidocaine Hcl (Aspercreme (Lidocaine Hcl)) 4 % cream Active 1 APPLIC TOPICAL THREE TIMES A DAY October 23, 2022 11:00pm Start: 01-08-2022 End: 01-22-2022 lidocaine 4% topical cream A pply 1 soto, Topical, TID, PRN as needed for pain, Apply thin layer to affected area as needed, not to exceed 3 applications in 24 hours, # 30 gram(s), 1 Refill(s), Pharmacy: [facility] #[id number], Cream, 170.2, cm, 01/08/22 13:51:00 EDT, Height, 106 Start Date: 01/08/22 Stop Date: 01/22/22 Status: Ordered magnesium oxide 400 mg oral tablet (20 sources) Start: 09-27-2020 End: 05-25-2025 magnesium oxide 400 mg oral tablet Dose : 400 mg = 1 tab(s), Oral, qDay, # 90 tab(s), 0 Refill(s), Pharmacy: [facility], 172.7, cm, 02/24/25 13:54:00 EDT, Height, kg, 02/24/25 13:54:00 EDT, Dosing Weight Start Date: 02/24/25 Stop Date: 05/25/25 Status: Ordered Medication Dispense Status: Completed Quantity: 90.0 Unit: tab(s) Total Allowed Fills: 1 Fills Dispensed: 0 metoprolol tartrate 50 mg oral tablet (20 sources) beta-Adrenergic Jaime Start: 09-02-2024 take 1 tablet by mouth twice daily Start: 03-23-2024 metoprolol tar trate 50 mg oral tablet Dose : 50 mg = 1 tab(s), Oral, BID, # 60 tab(s), 3 Refill(s) Start Date: 03/23/24 Status: Ordered Quantity: 60.0 Unit: tab(s) Repeat number: 4 Start: 01-26-2024 Metoprolol Tar trate 75 mg oral tablet Dose : 75 mg = 1 tab(s), Oral, BID, # 180 tab(s), 1 Refill(s), Pharmacy: [facility], 170.2, cm, 11/12/23 13:25:00 EDT, Height, kg, 11/12/23 13:25:00 EDT, Dosing Weight Start Date: 01/26/24 Status: Ordered Start: 12-11-2023 End: 12-30-2024 Metoprolol Tartrate 100 mg t ablet Discontinued 75 mg PO TWICE A DAY December 11, 2023 2:03pm December 30, 2024 9:48am Start: 08-25-2023 Metoprolol Tar trate 75 mg oral tablet Dose : 75 mg = 1 tab(s), Oral, BID, # 180 tab(s), 1 Refill(s), Pharmacy: [facility], 170.2, cm, 08/25/23 13:01:00 EDT, Height, kg, 08/25/23 13:01:00 EDT, Dosing Weight Start Date: 08/25/23 Status: Ordered Start: 08-12-2023 Metoprolol Tar trate 50 mg oral tablet Dose : 50 mg = 1 tab(s), Oral, BID, # 180 tab(s), 2 Refill(s), Pharmacy: [facility], 170.2, cm, 07/21/23 13:25:00 EST, Height, kg, 07/21/23 13:25:00 EST, Dosing Weight Start Date: 08/12/23 Status: Ordered Start: 11-25-2022 Metoprolol Tar trate 50 mg oral tablet Dose : 50 mg = 1 tab(s), Oral, BID, # 180 tab(s), 2 Refill(s), Pharmacy: [facility], 170.2, cm, 11/25/22 13:01:00 EDT, Height Start Date: 11/25/22 Status: Ordered Start: 10-24-2022 End: 12-11-2023 Metoprolol Tartrate 100 mg t ablet Discontinued 50 mg PO TWICE A DAY October 24, 2022 12:00am December 11, 2023 2:03pm Start: 10-24-2022 take 50 mg by mouth twice daily Metoprolol Tartrate Active 50 MG PO TWICE A DAY October 24, 2022 12:00am Start: 10-24-2022 take 100 mg by mouth twice daily Metoprolol Tartrate Active 100 MG PO TWICE A DAY October 23, 2022 11:00pm Start: 05-04-2021 Metoprolol Tar trate 100 mg oral tablet Dose : 100 mg = 1 tab(s), Oral, BID, # 180 tab(s), 3 Refill(s), Pharmacy: [facility] #[id number], 172.7, cm, 05/04/21 10:36:00 EST, Height, kg, 05/04/21 10:36:00 EST, Dosing Weight Start Date: 05/04/21 Status: Ordered Start: 09-27-2020 Metoprolol Tar trate 100 mg oral tablet Dose : 100 mg = 1 tab(s), Oral, BID, # 180 tab(s), 3 Refill(s), Pharmacy: [facility], 172.7, cm, 09/27/20 11:58:00 EDT, Height, kg, 09/27/20 11:58:00 EDT, Dosing Weight Start Date: 09/27/20 Status: Ordered Start: 10-23-2013 End: 10-24-2022 Metoprolol Tartrate 50 MG ta blet Discontinued 25 mg PO TWICE A DAY October 23, 2013 12:00am October 24, 2022 11:22am bp Start: 10-23-2013 End: 10-24-2022 take 25 mg by mouth twice daily Metoprolol Tartrate Discontinued 25 MG PO TWICE A DAY October 23, 2013 12:00am October 24, 2022 11:22am [facility] Medication (8 sources) Start: 05-04-2024 [facility] Refresh Optical Solution TID PRN Dry Eyes, 0 Refill(s), 89.5 Start Date: 05/04/24 Status: Ordered Medication Dispense Status: Completed Total Allowed Fills: 1 Fills Dispensed: 0 Start: 05-04-2024 [facility] Medicatio n Refresh Optical Solution TID PRN Dry Eyes, 0 Refill(s), 89.5 Start Date: 05/04/24 Status: Ordered Repeat number: 1 Start: 05-04-2024 [facility] Medicatio n Refresh Optical Solution TID PRN Dry Eyes, 0 Refill(s), 89.5 Start Date: 05/04/24 Status: Ordered nystatin 400853 unt/ml oral suspension (1 source) Polyene Antifungal Start: 08-14-2023 End: 08-24-2023 take 1 dose by mouth four times daily nystatin 100,000 units/mL oral suspension Dose : 600,000 unit(s) = 6 mL, Oral, QID, swish in mouth and retain in mouth as long as possible before swallowing, X 10 day(s), # 240 mL, 0 Refill(s), 08/24/23 3:13:00 PM EDT, Pharmacy: [facility], 170.2, cm, 08/14/23 13:50:00 EST, Height, kg, 08/14/23 13:50:00 EST, Dosing Weight Start Date: 08/14/23 Stop Date: 08/24/23 Status: Ordered omeprazole 40 mg delayed release oral capsule (4 sources) Proton Pump Inhibitor Start: 03-31-2024 End: 06-29-2024 omeprazole 40 mg oral delayed release capsule Dose : 40 mg = 1 cap(s), Oral, qDayAC, # 90 cap(s), 0 Refill(s), Pharmacy: [facility], 172.7, cm, 03/31/24 14:11:00 EDT, Height, kg, 03/31/24 13:52:00 EDT, Dosing Weight Start Date: 03/31/24 Stop Date: 06/29/24 Status: Ordered polyethylene glycol 3350 96118 mg powder for oral solution (8 sources) Osmotic Laxative Start: 05-04-2024 MiraLax oral powder for reconstitution gram(s) =, Oral, qDay, Per packet directions PRN constipation, 0 Refill(s) Start Date: 05/04/24 Status: Ordered Medication Dispense Status: Completed Total Allowed Fills: 1 Fills Dispensed: 0 Probiotic (4 sources) Start: 05-04-2024 Probiotic 0 Refill(s) Start Date: 05/04/24 Status: Ordered Repeat number: 1 Start: 05-04-2024 Probiotic 0 Re fill(s) Start Date: 05/04/24 Status: Ordered spironolactone 25 mg oral tablet (20 sources) Aldosterone Antagonist Start: 10-23-2013 spironolactone 25 mg oral tablet Dose : 12.5 mg = 0.5 tab(s), Oral, BID, # 180 tab(s), 3 Refill(s), Pharmacy: [facility], 172, cm, 09/01/24 13:32:00 EDT, Height, kg, 09/01/24 13:32:00 EDT, Dosing Weight Start Date: 09/02/24 Status: Ordered Medication Dispense Status: Completed Quantity: 180.0 Unit: tab(s) Total Allowed Fills: 4 Fills Dispensed: 0 sulfamethoxazole 800 mg / trimethoprim 160 mg oral tablet (6 sources) Dihydrofolate Reductase Inhibitor Antibacterial, Sulfonamide Antimicrobial Start: 08-06-2023 End: 08-20-2023 take 1 tablet by mouth every twelve hours Bactrim DS 800 mg-160 mg oral tablet Dose = 1 tab(s), Oral, q12h, X 14 day(s), # 28 tab(s), 0 Refill(s), Pharmacy: [facility] [id number], 170.2, cm, 07/21/23 13:25:00 EST, Height, 101.3, kg, 07/21/23 13:25:00 EST, Dosing Weight Start Date: 08/06/23 Stop Date: 08/20/23 Status: Ordered Start: 06-17-2023 End: 06-27-2023 take 1 tablet by mouth every twelve hours sulfamethoxazole-trimethoprim 800 mg-160 mg oral tablet Dose = 1 tab(s), Oral, q12h, drink plenty of fluids, X 10 day(s), # 20 tab(s), 0 Refill(s), Pharmacy: [facility], 170.2, cm, 06/17/23 13:04:00 EST, Height, 104, kg, 06/17/23 13:04:00 EST, Dosing Weight Start Date: 06/17/23 Stop Date: 06/27/23 Status: Ordered torsemide 20 mg oral tablet (20 sources) Loop Diuretic Start: 04-19-2025 torsemide 20 m g oral tablet Dose : 20 mg = 1 tab(s), Oral, qDay, # 90 tab(s), 1 Refill(s), Pharmacy: [facility], 172.7, cm, 04/11/25 13:35:00 EDT, Height, kg, 04/11/25 13:35:00 EDT, Dosing Weight Start Date: 04/19/25 Status: Ordered Medication Dispense Status: Completed Quantity: 90.0 Unit: tab(s) Total Allowed Fills: 2 Fills Dispensed: 0 Start: 12-11-2023 torsemide 20 m g oral tablet Dose : 20 mg = 1 tab(s), Oral, qDay, # 30 tab(s), 0 Refill(s), Pharmacy: [facility], 172, cm, 09/01/24 13:32:00 EDT, Height, kg, 09/01/24 13:32:00 EDT, Dosing Weight Start Date: 09/08/24 Status: Ordered Medication Dispense Status: Completed Quantity: 30.0 Unit: tab(s) Total Allowed Fills: 1 Fills Dispensed: 0 Start: 2023 End: 12-11-2023 take 1 tablet by mouth twice daily Torsemide 20 mg tablet Discontinued 20 mg PO TWICE A DAY July 30, 2023 1:00am December 11, 2023 2:03pm Start: 06-19-2023 torsemide 20 m g oral tablet Dose : 20 mg = 1 tab(s), Oral, Daily, # 30 tab(s), 0 Refill(s), Pharmacy: [facility], 170.2, cm, 06/19/23 13:31:00 EST, Height, kg, 06/19/23 13:31:00 EST, Dosing Weight Start Date: 06/19/23 Status: Ordered traZODone hydrochloride 100 mg oral tablet (20 sources) Serotonin Reuptake Inhibitor Start: 01-16-2023 take 1-2 tablets by mouth at bedtime traZODone 100 mg oral tablet TAKE 1 TO 2 TABLETS BY MOUTH AT BEDTIME Start Date: 01/16/23 Status: Ordered Medication Dispense Status: Completed Total Allowed Fills: 1 Fills Dispensed: 0 tumeric (4 sources) Start: 12-30-2024 Start: 12-30-2024 tumeric Active December 30, 2024 12:00am vitamin b12 0.25 mg oral tablet (20 sources) Vitamin B12 Start: 08-18-2023 cyanocobalamin 250 mcg oral tablet Dose : 250 mcg = 1 tab(s), Oral, Daily, # 90 tab(s), 3 Refill(s), Pharmacy: [facility], 170.2, cm, 08/14/23 13:50:00 EST, Height, kg, 08/14/23 13:50:00 EST, Dosing Weight Start Date: 08/18/23 Status: Ordered Start: 07-29-2023 End: 01-25-2024 cyanocobalamin 500 mcg subli ngual tablet Dose : 500 mcg = 1 tab(s), Sublingual, qDay, dissolve under the tongue, # 90 tab(s), 1 Refill(s), Pharmacy: [facility], 170.2, cm, 07/21/23 13:25:00 EST, Height, kg, 07/21/23 13:25:00 EST, Dosing Weight Start Date: 07/29/23 Stop Date: 01/25/24 Status: Ordered Start: 04-28-2023 End: 07-27-2023 cyanocobalamin 500 mcg subli ngual tablet Dose : 500 mcg = 1 tab(s), Sublingual, qDay, dissolve under the tongue, # 90 tab(s), 0 Refill(s), Pharmacy: [facility], 170.2, cm, 04/18/23 14:38:00 EDT, Height, kg, 04/18/23 14:27:00 EDT, Dosing Weight Start Date: 04/28/23 Stop Date: 07/27/23 Status: Ordered Start: 10-24-2022 End: 01-17-2025 take 1 tablet by mouth once daily Cyanocobalamin (Vitamin B-12) 1,000 mcg tablet Discontinued 1000 ug PO DAILY October 24, 2022 12:00am January 17, 2025 11:45am On Hold: Order Completed Vitamin C 1000 mg oral table t (8 sources) Start: 05-04-2024 Vitamin C 1000 mg oral tablet Dose : 1,000 mg = 1 tab(s), Oral, qDay, 0 Refill(s) Start Date: 05/04/24 Status: Ordered Medication Dispense Status: Completed Total Allowed Fills: 1 Fills Dispensed: 0 Start: 05-04-2024 Vitamin C 1000 mg oral tablet Dose : 1,000 mg = 1 tab(s), Oral, qDay, 0 Refill(s) Start Date: 05/04/24 Status: Ordered Repeat number: 1 Start: 05-04-2024 Vitamin C 1000 mg oral tablet Dose : 1,000 mg = 1 tab(s), Oral, qDay, 0 Refill(s) Start Date: 05/04/24 Status: Ordered Completed/Discontinued Medications Medication Drug Class(es) Dates Sig (Normalized) Sig (Original) Albuterol (20 sources) beta2-Adrenergic Agonist Start: 09-23-2024 End: 03-22-2025 take 2 puff(s) by inhalation every four hours as needed for wheezing Ventolin HFA MDI (90 mcg/inh) inhalation aerosol 2 puff(s), Inhalation, q4h, PRN Shortness of breath or wheezing, use with spacer chamber. Okay to substitute alternative brand if needed for insurance., # 1 EA, 5 Refill(s), Pharmacy: [facility], 172, cm, 09/01/24 13:32:00 EDT, Height, kg, 09/01/24 13:32:00 EDT, Dosing Weight Start Date: 09/23/24 Stop Date: 03/22/25 Status: Ordered Medication Dispense Status: Completed Quantity: 1.0 Unit: EA Total Allowed Fills: 6 Fills Dispensed: 0 Start: 09-23-2024 End: 03-22-2025 take 2 puff(s) by inhalation every four hours as needed for wheezing Ventolin HFA MDI (90 mcg/inh) inhalation aerosol 2 puff(s), Inhalation, q4h, PRN Shortness of breath or wheezing, use with spacer chamber. Okay to substitute alternative brand if needed for insurance., # 1 EA, 5 Refill(s), Pharmacy: [facility], 172, cm, 09/01/24 13:32:00 EDT, Height, kg, 09/01/24 13:32:00 EDT, Dosing Weight Start Date: 09/23/24 Stop Date: 03/22/25 Status: Ordered Quantity: 1.0 Unit: EA Repeat number: 6 Start: 01-29-2024 End: 07-27-2024 take 2 puff(s) by inhalation every four hours as needed for wheezing Ventolin HFA MDI (90 mcg/inh) inhalation aerosol 2 puff(s), Inhalation, q4h, PRN Shortness of breath or wheezing, use with spacer chamber. Okay to substitute alternative brand if needed for insurance., # 1 EA, 5 Refill(s), Pharmacy: [facility], 170.2, cm, 11/12/23 13:25:00 EDT, Height, kg, 11/12/23 13:25:00 EDT, Dosing Weight Start Date: 01/29/24 Stop Date: 07/27/24 Status: Ordered Quantity: 1.0 Unit: EA Repeat number: 6 Start: 01-29-2024 End: 07-27-2024 take 2 puff(s) by inhalation every four hours as needed for wheezing Ventolin HFA MDI (90 mcg/inh) inhalation aerosol 2 puff(s), Inhalation, q4h, PRN Shortness of breath or wheezing, use with spacer chamber. Okay to substitute alternative brand if needed for insurance., # 1 EA, 5 Refill(s), Pharmacy: [facility], 170.2, cm, 11/12/23 13:25:00 EDT, Height, kg, 11/12/23 13:25:00 EDT, Dosing Weight Start Date: 01/29/24 Stop Date: 07/27/24 Status: Ordered Start: 10-24-2022 Start: 10-24-2022 take 1 puff(s) by in halation every four hours Albuterol Sulfate Active 2 PUFF INHALATION Q4H October 24, 2022 12:00am Start: 10-17-2022 End: 04-15-2023 take 2 puff(s) by inhalation every four hours as needed for wheezing Ventolin HFA MDI (90 mcg/inh) inhalation aerosol 2 puff(s), Inhalation, q4h, PRN Shortness of breath or wheezing, use with spacer chamber. Okay to substitute alternative brand if needed for insurance., # 1 EA, 5 Refill(s), Pharmacy: [facility], 170.2, cm, 10/17/22 14:33:00 EDT, Height, kg, 10/17/22 14:33:00 EDT, Dosing Weight Start Date: 10/17/22 Stop Date: 04/15/23 Status: Ordered Start: 02-14-2022 End: 08-13-2022 Ventolin HFA MDI (90 mcg/inh ) inhalation aerosol 2 puff(s), Inhalation, q4h, PRN Shortness of breath or wheezing, use with spacer chamber. PHARMACY PLEASE DISPENSE SPACER. Okay to substitute alternative brand if needed for insurance., # 1 EA, 5 Refill(s), Pharmacy: [facility] [id number], 170.2, cm, ... Start Date: 02/14/22 Stop Date: 08/13/22 Status: Ordered alendronic acid 70 mg oral tablet (1 source) Bisphosphonate Start: 10-20-2008 alendronate sodium(FOSAMAX 70 MG TAB) Indications: Thrombocytopenia, unspecified (HCC) Take once per week in the morning with a full glass of water, on an empty stomach, and do not take anything else by mouth or lie down for the next 30 minutes. 0 10/20/2008 Active Comment on above: Take once per week i n the morning with a full glass of water, on an empty stomach, and do not take anything else by mouth or lie down for the next 30 minutes. amiodarone hydrochloride 200 mg oral tablet (18 sources) Antiarrhythmic Start: 10-23-2013 End: 10-24-2022 take 1 tablet by mouth once daily Amiodarone 200 MG tablet Discontinued 200 mg PO DAILY October 23, 2013 12:00am October 24, 2022 11:37am afib aspirin 81 mg chewable tablet (18 sources) Platelet Aggregation Inhibitor, Nonsteroidal Anti-inflammatory Drug Start: 11-16-2017 End: 10-24-2022 take 1 tablet by mouth at bedtime Aspirin 81 MG tablet,chewable Discontinued 81 mg PO AT BEDTIME November 16, 2017 12:00am October 24, 2022 11:36am heart [facility] atorvastatin 20 mg oral tablet (20 sources) HMG-CoA Reductase Inhibitor Start: 06-28-2023 End: 12-11-2023 take 1 tablet by mouth at bedtime Atorvastatin 20 mg Tablet Discontinued 20 mg PO AT BEDTIME 30 30 June 28, 2023 1:00am December 11, 2023 2:02pm Start: 11-16-2017 End: 06-26-2023 take 1 tablet by mouth at bedtime Atorvastatin 20 tablet Discontinued 20 mg PO AT BEDTIME November 16, 2017 12:00am June 26, 2023 3:38pm cholesterol Brompheniramine (1 source) Start: 10-20-2008 brompheniramin e maleate(LODRANE 24 EXTENDED RELEASE 12 MG 24 HR CAP) Indications: Thrombocytopenia, unspecified (HCC) as necessary 0 10/20/2008 Active Comment on above: as necessary Calcium (1 source) Phosphate Binder, Calcium Start: 10-20-2008 CALCIUM 500 MG TAB Indications: Thrombocytopenia, unspecified (HCC) 600mg each day 0 10/20/2008 Active Comment on above: 600mg each day calcium carbonate 1250 mg / cholecalciferol 0.01 mg oral tablet (18 sources) Vitamin D Start: 10-23-2013 End: 10-24-2022 Calcium Carbonate-Vitamin D3 1 EACH tablet Discontinued 1 NMA PO DAILY October 23, 2013 12:00am October 24, 2022 11:36am vitamin Start: 10-23-2013 End: 10-24-2022 Calcium Carbonate-Vitamin D3 Discontinued 1 EACH PO DAILY October 23, 2013 12:00am October 24, 2022 11:36am cefdinir 300 mg oral capsule (20 sources) Cephalosporin Antibacterial Start: 11-13-2018 End: 11-23-2018 take 1 capsule by mouth twice daily Cefdinir 300 mg capsule Discontinued 300 mg PO TWICE A DAY 20 10 0 November 13, 2018 12:00am November 22, 2018 12:00am November 23, 2018 12:08am Start: 08-28-2018 End: 09-02-2018 take 1 capsule by mouth every twelve hours Cefdinir 300 mg capsule Discontinued 300 mg PO Q12H 20 5 0 August 28, 2018 12:00am September 01, 2018 12:00am September 02, 2018 12:08am diclofenac sodium 0.01 mg/mg topical gel (20 sources) Nonsteroidal Anti-inflammatory Drug Start: 01-18-2025 End: 03-19-2025 apply 2 doses topically four times daily as needed for pain diclofenac 1% topical gel 2 = gram(s), Topical, QID, PRN Pain, apply 2 g to affected area up to 4 times daily. not to exceed 16 grams/day, # 100 gram(s), 1 Refill(s), Pharmacy: [facility], Gel, 172.7, cm, 12/01/24 14:55:00 EDT, Height, 81.3, kg, 12/01/24 14:55:00 EDT, Dosing Weight Start Date: 01/18/25 Stop Date: 03/19/25 Status: Ordered Medication Dispense Status: Completed Quantity: 100.0 Unit: g Total Allowed Fills: 2 Fills Dispensed: 0 Start: 04-22-2024 End: 06-21-2024 diclofenac 1% topical gel 2 = gram(s), Topical, QID, PRN Pain, apply 2 g to affected area up to 4 times daily. not to exceed 16 grams/day, # 100 gram(s), 1 Refill(s), Pharmacy: [facility], Gel, 172.7, cm, 03/31/24 14:11:00 EDT, Height, 89.5, kg, 03/31/24 13:52:00 EDT, Dosing Weight Start Date: 04/22/24 Stop Date: 06/21/24 Status: Ordered Quantity: 100.0 Unit: g Repeat number: 2 Start: 11-20-2023 Start: 11-12-2023 End: 01-11-2024 diclofenac 1% topical gel 2 = gram(s), Topical, QID, PRN Pain, apply 2 g to affected area up to 4 times daily. not to exceed 16 grams/day, # 100 gram(s), 1 Refill(s), Pharmacy: [facility], Gel, 170.2, cm, 11/12/23 13:25:00 EDT, Height, 94.63, kg, 11/12/23 13:25:00 EDT, Dosing Weight Start Date: 11/12/23 Stop Date: 01/11/24 Status: Ordered 24 hr dilTIAZem hydrochloride 120 mg extended release oral capsule (20 sources) Calcium Channel Jaime Start: 12-23-2022 End: 11-20-2023 take 1 capsule by mouth once daily Diltiazem Hcl 120 mg capsule,extended release 24hr Discontinued 120 mg PO DAILY June 26, 2023 1:00am November 20, 2023 4:44pm Start: 05-04-2021 Cardizem CD 12 0 mg/24 hours oral capsule, extended release Dose : 120 mg = 1 cap(s), Oral, qDay, # 30 cap(s), 11 Refill(s), Pharmacy: [facility] [place] #[id number], 172.7, cm, 05/04/21 10:36:00 EST, Height, kg, 05/04/21 10:36:00 EST, Dosing Weight Start Date: 05/04/21 Status: Ordered Start: 05-04-2021 Cardizem CD 12 0 mg/24 hours oral capsule, extended release Dose : 120 mg = 1 cap(s), Oral, qDay, # 30 cap(s), 11 Refill(s), Pharmacy: [facility] [place]/[facility]acy #[id number], 172.7, cm, 05/04/21 10:36:00 EST, Height, kg, 05/04/21 10:36:00 EST, Dosing Weight Start Date: 05/04/21 Status: Ordered Start: 03-28-2021 Cardizem CD 12 0 mg/24 hours oral capsule, extended release Dose : 120 mg = 1 cap(s), Oral, qDay, # 30 cap(s), 3 Refill(s), Pharmacy: [facility] [place]acy #[id number], 170.2, cm, 03/28/21 10:28:00 EDT, Height, kg, 03/28/21 10:28:00 EDT, Dosing Weight Start Date: 03/28/21 Status: Ordered docusate sodium 50 mg / sennosides, prison 8.6 mg oral tablet (11 sources) Start: 06-28-2023 End: 12-30-2024 Sennosides-Docusate Sodium (Stool Softener-Stimulant Laxat) 8.6-50 mg Tablet Discontinued 2 {tbl} PO TWICE DAILY NEEDED as needed for Constipation 0 0 June 28, 2023 1:00am December 30, 2024 9:53am fluticasone propionate 0.05 mg/actuat metered dose nasal spray (1 source) Corticosteroid Start: 10-20-2008 FLUTICASONE 50 MCG/ACTUATION NASAL SPRAY, SUSP Take two(2) puffs twice daily via spacer then rinse and gargle mouth with water. 0 10/20/2008 Active Comment on above: Take two(2) puffs tw ice daily via spacer then rinse and gargle mouth with water. fluticasone furoate 0.1 MG/ACTUAT / umeclidinium 0.0625 MG/ACTUAT / vilanterol 0.025 MG/ACTUAT Dry Powder Inhaler (20 sources) Anticholinergic, Corticosteroid, beta2-Adrenergic Agonist Start: 09-23-2024 End: 03-22-2025 take 1 dose by mouth once daily fluticasone/umeclidinium /vilanterol 100 mcg-62.5 mcg-25 mcg/inh inhalation powder Dose = 1 puff(s), Inhalation, qDay, at the same time every day. Following administration, rinse mouth with water after use (do not swallow)., # 1 EA, 5 Refill(s), Pharmacy: [facility], 172, cm, 09/01/24 13:32:00 EDT, Height, kg, 09/01/24 13:32:00 EDT, Dosing Weight Start Date: 09/23/24 Stop Date: 03/22/25 Status: Ordered Medication Dispense Status: Completed Quantity: 1.0 Unit: EA Total Allowed Fills: 6 Fills Dispensed: 0 Start: 09-23-2024 End: 03-22-2025 take 1 dose by mouth once daily fluticasone/umeclidinium/vilanterol 100 mcg-62.5 mcg-25 mcg/inh inhalation powder Dose = 1 puff(s), Inhalation, qDay, at the same time every day. Following administration, rinse mouth with water after use (do not swallow)., # 1 EA, 5 Refill(s), Pharmacy: [facility], 172, cm, 09/01/24 13:32:00 EDT, Height, kg, 09/01/24 13:32:00 EDT, Dosing Weight Start Date: 09/23/24 Stop Date: 03/22/25 Status: Ordered Quantity: 1.0 Unit: EA Repeat number: 6 Start: 03-31-2024 End: 06-29-2024 take 1 dose by mouth once daily fluticasone/umeclidinium/vilanterol 100 mcg-62.5 mcg-25 mcg/inh inhalation powder Dose = 1 puff(s), Inhalation, qDay, at the same time every day. Following administration, rinse mouth with water after use (do not swallow)., # 30 EA, 2 Refill(s), Pharmacy: [facility], 172.7, cm, 03/31/24 14:11:00 EDT, Height, kg, 03/31/24 13:52:00 EDT, Dosing Weight Start Date: 03/31/24 Stop Date: 06/29/24 Status: Ordered Quantity: 30.0 Unit: EA Repeat number: 3 Start: 03-31-2024 End: 06-29-2024 take 1 dose by mouth once daily fluticasone/umeclidinium/vilanterol 100 mcg-62.5 mcg-25 mcg/inh inhalation powder Dose = 1 puff(s), Inhalation, qDay, at the same time every day. Following administration, rinse mouth with water after use (do not swallow)., # 30 EA, 2 Refill(s), Pharmacy: [facility], 172.7, cm, 03/31/24 14:11:00 EDT, Height, kg, 03/31/24 13:52:00 EDT, Dosing Weight Start Date: 03/31/24 Stop Date: 06/29/24 Status: Ordered Start: 01-23-2024 End: 04-22-2024 take 1 dose by mouth once daily fluticasone/umeclidinium/vilanterol 100 mcg-62.5 mcg-25 mcg/inh inhalation powder Dose = 1 puff(s), Inhalation, qDay, at the same time every day. Following administration, rinse mouth with water after use (do not swallow)., # 30 EA, 2 Refill(s), Pharmacy: [facility], 170.2, cm, 11/12/23 13:25:00 EDT, Height, kg, 11/12/23 13:25:00 EDT, Dosing Weight Start Date: 01/23/24 Stop Date: 04/22/24 Status: Ordered Start: 06-06-2023 End: 12-03-2023 take 1 dose by mouth once daily fluticasone/umeclidinium/vilanterol 100 mcg-62.5 mcg-25 mcg/inh inhalation powder Dose = 1 puff(s), Inhalation, qDay, at the same time every day. Following administration, rinse mouth with water after use (do not swallow)., # 30 EA, 5 Refill(s), Pharmacy: [facility], 170.2, cm, 04/18/23 14:38:00 EDT, Height, kg, 04/18/23 14:27:00 EDT, Dosing Weight Start Date: 06/06/23 Stop Date: 12/03/23 Status: Ordered folic acid 1 mg oral tablet (9 sources) Start: 04-28-2023 End: 10-25-2023 folic acid 1 mg oral tablet Dose : 1 mg = 1 tab(s), Oral, qDay, # 90 tab(s), 1 Refill(s), Pharmacy: [facility], 170.2, cm, 04/18/23 14:38:00 EDT, Height, kg, 04/18/23 14:27:00 EDT, Dosing Weight Start Date: 04/28/23 Stop Date: 10/25/23 Status: Ordered indapamide 1.25 mg oral tablet (20 sources) Thiazide-like Diuretic Start: 11-16-2017 End: 06-26-2023 take 1 tablet by mouth once daily in the morning Indapamide 1.25 mg tablet Discontinued 1.25 mg PO EVERY MORNING October 24, 2022 12:00am June 26, 2023 3:40pm Lactobacillus acidophilus (5 sources) Start: 07-01-2023 End: 07-31-2023 take 1 tablet by mouth once daily lactobacillus acidophilus oral tablet Dose = 1 tab(s), Oral, qDay, # 30 tab(s), 0 Refill(s), Pharmacy: [facility] [place]acy #[id number], 170.2, cm, 06/25/23 13:43:00 EST, Height, kg, 06/25/23 13:02:00 EST, Dosing Weight Start Date: 07/01/23 Stop Date: 07/31/23 Status: Ordered mirtazapine 30 mg oral tablet (18 sources) Start: 05-15-2018 End: 10-24-2022 take 1 tablet by mouth at bedtime Mirtazapine 30 MG tablet Discontinued 30 mg PO AT BEDTIME May 15, 2018 1:00am October 24, 2022 11:36am microencapsulated potassium chloride 15 meq extended release oral tablet (20 sources) Start: 01-18-2025 End: 02-17-2025 potassium chloride 15 mEq oral tablet, extended release Dose : 15 mEq = 1 tab(s), Oral, BID, do not crush or chew. with a full glass of water, # 60 tab(s), 0 Refill(s), Pharmacy: [facility], 172.7, cm, 12/01/24 14:55:00 EDT, Height, kg, 12/01/24 14:55:00 EDT, Dosing Weight Start Date: 01/18/25 Stop Date: 02/17/25 Status: Ordered Medication Dispense Status: Completed Quantity: 60.0 Unit: tab(s) Total Allowed Fills: 1 Fills Dispensed: 0 Start: 02-04-2023 potassium chlo ride 20 mEq oral tablet, extended release Dose : 20 mEq = 1 tab(s), Oral, qDay, Take with food, # 30 tab(s), 0 Refill(s) Start Date: 02/04/23 Status: Ordered Quantity: 30.0 Unit: tab(s) Repeat number: 1 Start: 10-24-2022 take 2 tablets by mo uth once daily Start: 10-24-2022 take 20 mEq by mouth once rosas y Potassium Chloride Active 20 MEQ PO DAILY October 24, 2022 12:00am Start: 10-24-2022 take 10 mEq by mouth once rosas y Potassium Chloride Active 10 MEQ PO DAILY October 23, 2022 11:00pm Start: 09-17-2019 take 1 capsule by [facility] once daily potassium chloride 10 mEq oral capsule, extended release TAKE 1 CAPSULE BY MOUTH EVERY DAY Start Date: 09/17/19 Status: Ordered Start: 09-17-2019 take 1 capsule by mo [facility] once daily potassium chloride 10 mEq oral capsule, extended release TAKE 1 CAPSULE BY MOUTH EVERY DAY Start Date: 09/17/19 Status: Ordered Start: 01-28-2018 End: 10-24-2022 Potassium Chloride 20 MEQ ta blet,ER particles/crystals Discontinued 20 meq PO DIRECTED January 28, 2018 12:00am October 24, 2022 11:34am rivaroxaban 20 mg oral tablet (20 sources) Factor Xa Inhibitor Start: 10-24-2022 End: 03-13-2025 take 1 tablet by mouth once daily Xarelto 20 mg oral tablet 1 tab(s), Oral, qDay, # 90 tab(s), 3 Refill(s), Pharmacy: [facility], 170.2, cm, 02/10/24 13:36:00 EDT, Height, 90.4, kg, 02/10/24 13:17:00 EDT, Dosing Weight Start Date: 03/18/24 Stop Date: 03/13/25 Status: Ordered Medication Dispense Status: Completed Quantity: 90.0 Unit: tab(s) Total Allowed Fills: 4 Fills Dispensed: 0 Start: 07-04-2021 End: 06-29-2022 take 1 tablet by mouth once daily Xarelto 20 mg oral tablet 1 tab(s), Oral, qDay, # 90 tab(s), 3 Refill(s), Pharmacy: [facility] [id number], 172.7, cm, 08/10/21 9:56:00 EST, Height, 109.7, kg, 08/10/21 9:56:00 EST, Dosing Weight Start Date: 10/15/21 Status: Ordered Start: 12-13-2020 Xarelto 20 mg oral tablet Dose : 20 mg = 1 tab(s), Oral, Daily, # 30 tab(s), 11 Refill(s), Pharmacy: [facility] [id number], 172.7, cm, 12/11/20 13:57:00 EDT, Height, 120.4, kg, 12/11/20 13:57:00 EDT, Dosing Weight Start Date: 12/13/20 Status: Ordered 7 actuat umeclidinium 0.0625 mg/actuat / vilanterol 0.025 mg/actuat dry powder inhaler (16 sources) Anticholinergic, beta2-Adrenergic Agonist Start: 10-24-2022 End: 06-26-2023 Umeclidinium-Vilanterol (Anoro Ellipta) 62.5-25 mcg/actuation blister with device Discontinued 1 NMA INHALATION DAILY October 24, 2022 12:00am June 26, 2023 3:41pm Start: 10-24-2022 End: 06-26-2023 Umeclidinium-Vilanterol (Ano ro Ellipta) 62.5-25 mcg/actuation blister with device Discontinued 1 INH INHALATION DAILY October 24, 2022 12:00am June 26, 2023 3:41pm zolpidem tartrate 10 mg oral tablet (20 sources) gamma-Aminobutyric Acid-ergic Agonist Start: 10-24-2022 End: 06-26-2023 take 1 tablet by mouth at bedtime as needed Zolpidem (Ambien) 10 mg tablet Discontinued 10 mg PO AT BEDTIME as needed October 24, 2022 12:00am June 26, 2023 3:41pm Start: 04-07-2020 Ambien 10 mg o ral tablet Dose : 10 mg = 1 tab(s), Oral, qHS, PRN as needed for sleep, 0 Refill(s), 130.5 Start Date: 04/07/20 Status: Ordered Problems Active Problems Problem Classification Problem Date Documented Da te Episodic/Chronic Administrative/social admission (13 sources) Food insecurity 02-10-2024 Episodic Calculus of urinary tract (20 sources) History of calculus of kidney 01-08-2022 Episodic Cardiac dysrhythmias (20 sources) Permanent atrial fibrillation; Translations: [Atrial fibrillation] 09-17-2019 Chronic Chronic obstructive pulmonary disease and bronchiectasis (20 sources) Chronic obstructive lung disease 02-14-2022 Chronic Chronic ulcer of skin (18 sources) Ulcer of lower extremity; Translations: [Non-pressure chronic ulcer of unspecified part of left lower leg with fat layer exposed] 03-18-2019 Chronic Coagulation and hemorrhagic disorders (8 sources) Idiopathic thrombocytopenic purpura; Translations: [Thrombocytopenic disorder] Onset: 0 10-04-2009 Chronic Complications of surgical procedures or medical care (2 sources) Postprocedural hypothyroidism; Translations: [Postprocedural hypothyroidism] Onset: Chronic Complications of surgical procedures or medical care (12 sources) Postoperative hemorrhage; Translations: [Postoperative hemorrhage from incision] 06-26-2023 Episodic Congestive heart failure; nonhypertensive (20 sources) Heart failure with normal ejection fraction; Translations: [Unspecified diastolic (congestive) heart failure] Onset: 4 05-04-2021 Chronic Deficiency and other anemia (19 sources) Anemia of chronic disease; Translations: [Anemia in other chronic diseases classified elsewhere] 06-26-2023 Chronic Deficiency and other anemia (7 sources) Anemia in other chronic diseases classified elsewhere; Translations: [Anemia of other chronic disease] Onset: 5 06-26-2023 Chronic Deficiency and other anemia (14 sources) Iron deficiency anemia; Translations: [FREEMAN (iron deficiency anemia)] Onset: 1 11-15-2010 Episodic Deficiency and other anemia (18 sources) Anemia 01-16-2023 Episodic Deficiency and other anemia (20 sources) Nutritional anemia 11-11-2022 Episodic Deficiency and other anemia (2 sources) Iron deficiency anemia, unspecified; Translations: [Iron deficiency anemia, unspecified] Onset: Episodic Diseases of white blood cells (17 sources) Leukocytosis; Translations: [Elevated white blood cell count, unspecified] 06-26-2023 Chronic Disorders of lipid metabolism (20 sources) Mixed hyperlipidemia 09-17-2019 Chronic E Codes: Fall (20 sources) Fall in home 07-03-2022 Esophageal disorders (11 sources) Gastroesophageal reflux disease 03-31-2024 Chronic Essential hypertension (20 sources) Essential hypertension; Translations: [Hypertensive disorder] Onset: 4 09-17-2019 Chronic Fluid and electrolyte disorders (20 sources) Lactic acidosis; Translations: [Lactic acidosis] Onset: 4 06-26-2023 Episodic Fracture of lower limb (18 sources) Fracture of fibula; Translations: [Unspecified fracture of shaft of unspecified fibula, initial encounter for closed fracture] 11-27-2018 Episodic Heart valve disorders (20 sources) Non-rheumatic mitral regurgitation 09-17-2019 Chronic Hepatitis (3 sources) Nonalcoholic steatohepatitis 02-28-2025 Chronic Infective arthritis and osteomyelitis (except that caused by tuberculosis or sexually transmitted disease) (17 sources) Osteomyelitis of forefoot; Translations: [Osteomyelitis, unspecified] 06-26-2023 Chronic Malaise and fatigue (9 sources) Asthenia 04-13-2024 Episodic Mycoses (14 sources) Candidiasis of mouth 08-18-2023 Episodic Nonspecific chest pain (20 sources) Chest pain 03-28-2021 Episodic Nutritional deficiencies (19 sources) Undernutrition; Translations: [Unspecified protein-calorie malnutrition] Onset: 5 12-16-2018 Chronic Nutritional deficiencies (20 sources) Cobalamin deficiency; Translations: [Folic acid deficiency] Onset: 3 10-21-2022 Episodic Open wounds of extremities (18 sources) Disorder of lower extremity; Translations: [Unspecified open wound, left lower leg, initial encounter] 11-27-2018 Episodic Comment on above: Post debridement/hem atoma evacuation. 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; Translations: [Long-term (current) use of anticoagulants] 06-26-2023 Episodic Other and unspecified benign neoplasm (19 sources) Dysplastic nevus of trunk 06-30-2023 Episodic Other and unspecified benign neoplasm (17 sources) Hemangioma of liver; Translations: [Hemangioma of intra-abdominal structures] 06-10-2024 Episodic Other bone disease and musculoskeletal deformities (1 source) 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[place]], left hand; Translations: [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kien[place]ock), left hand] Onset: 8 Chronic Other bone disease and musculoskeletal deformities (1 source) Osteochondritis of the carpal lunate; Translations: [[place]ock's disease, left] Onset: 8 04-28-2018 Chronic Other bone disease and musculoskeletal deformities (20 sources) Disorder of bone, unspecified; Translations: [Bone lesion] 10-28-2022 Episodic Other circulatory disease (2 sources) Wheeze - rhonchi 01-08-2022 Episodic Other circulatory disease (20 sources) Low blood pressure 04-18-2023 Episodic Other connective tissue disease (20 sources) Muscle weakness of limb 01-08-2022 Episodic Other connective tissue disease (20 sources) Pain in lower limb 01-08-2022 Episodic Other connective tissue disease (11 sources) Chronic pain of left foot; Translations: [Pain in left toe(s)] 06-26-2023 Episodic Other connective tissue disease (1 source) Pain in left toe(s); Translations: [Pain in limb] 06-28-2023 Episodic Other connective tissue disease (2 sources) Pain in leg, unspecified; Translations: [Pain in leg, unspecified] Onset: Episodic Other connective tissue disease (1 source) Musculoskeletal test abnormal; Translations: [Other symptoms and signs involving the musculoskeletal system] Episodic Other diseases of veins and lymphatics (18 sources) Vascular insufficiency; Translations: [Venous insufficiency (chronic) (peripheral)] 03-18-2019 Episodic Other diseases of veins and lymphatics (5 sources) Venous insufficiency (chronic) (peripheral); Translations: [Venous (peripheral) insufficiency, unspecified] 06-26-2023 Episodic Other endocrine disorders (1 source) Secondary hyperparathyroidism, not elsewhere classified; Translations: [Secondary hyperparathyroidism, not elsewhere classified] Onset: Chronic Other gastrointestinal disorders (7 sources) Adrenal mass 06-10-2024 Episodic Other injuries and conditions due to external causes (18 sources) Delayed healing of wound; Translations: [Other injury of unspecified body region, subsequent encounter] 12-16-2018 Episodic Other liver diseases (11 sources) Steatosis of liver 03-29-2024 Chronic Other liver diseases (12 sources) Cirrhosis of liver; Translations: [Unspecified cirrhosis of liver] 07-12-2024 Chronic Other liver diseases (1 source) Unspecified cirrhosis of liver; Translations: [Unspecified cirrhosis of liver] Onset: 5 Chronic Other liver diseases (8 sources) Liver mass 04-26-2024 Episodic Other lower respiratory disease (20 sources) Air trapping 01-09-2022 Episodic Other lower respiratory disease (20 sources) Restrictive lung disease 02-14-2022 Episodic Other lower respiratory disease (20 sources) Hemoptysis 01-16-2023 Episodic Other lower respiratory disease (13 sources) Other nonspecific abnormal finding of lung field; Translations: [Mass of lower lobe of right lung] Onset: 5 12-13-2024 Episodic Other lower respiratory disease (4 sources) Lung mass 12-05-2024 Episodic Other nervous system disorders (20 sources) Peripheral nerve disease 05-21-2022 Chronic Other nervous system disorders (1 source) Chronic pain; Translations: [Other chronic pain] Chronic Other nervous system disorders (1 source) Walking disability; Translations: [Difficulty in walking, not elsewhere classified] Chronic Other non-traumatic joint disorders (20 sources) Arthritis of hip 02-14-2022 Chronic Other non-traumatic joint disorders (20 sources) Shoulder pain 03-25-2022 Episodic Other non-traumatic joint disorders (1 source) Arthritis of left wrist; Translations: [Arthritis of left wrist] Onset: 8 04-28-2018 Other nutritional; endocrine; and metabolic disorders (20 sources) Morbid obesity 09-17-2019 Chronic Other nutritional; endocrine; and metabolic disorders (20 sources) Hyperbilirubinemia; Translations: [Other disorders of bilirubin metabolism] 04-21-2023 Chronic Other nutritional; endocrine; and metabolic disorders (5 sources) Other disorders of bilirubin metabolism; Translations: [Other disorders of bilirubin metabolism] Onset: 4 Chronic Other nutritional; endocrine; and metabolic disorders (7 sources) Hypomagnesemia; Translations: [Hypomagnesemia] Onset: 5 10-19-2024 Chronic Other nutritional; endocrine; and metabolic disorders (2 sources) Hypomagnesemia; Translations: [Hypomagnesemia] Onset: 5 Chronic Other nutritional; endocrine; and metabolic disorders (20 sources) H/O: endocrine disorder 09-27-2020 Episodic Other nutritional; endocrine; and metabolic disorders (14 sources) Decrease in appetite 08-18-2023 Episodic Other nutritional; endocrine; and metabolic disorders (13 sources) Unexplained weight loss 02-10-2024 Episodic Other nutritional; endocrine; and metabolic disorders (2 sources) Abnormal weight loss; Translations: [Abnormal weight loss] Onset: 4 Episodic Other nutritional; endocrine; and metabolic disorders (6 sources) Overweight in adulthood with body mass index of 25 or more but less than 30 09-23-2024 Episodic Other screening for suspected conditions (not mental disorders or infectious disease) (20 sources) Platelet count below reference range; Translations: [Suspected malignant pigmented skin lesion] Onset: 9 10-20-2008 Episodic Other skin disorders (11 sources) Ingrowing toenail; Translations: [Ingrowing nail] 06-26-2023 Episodic Other skin disorders (4 sources) Ingrowing nail; Translations: [Ingrowing nail] 06-28-2023 Episodic Kirstie-; endo-; and myocarditis; cardiomyopathy (except that caused by tuberculosis or sexually transmitted disease) (20 sources) Idiopathic hypertrophic subaortic stenosis 09-17-2019 Chronic Peripheral and visceral atherosclerosis (20 sources) Peripheral vascular disease, unspecified; Translations: [Peripheral arterial disease] 03-18-2019 Chronic Pleurisy; pneumothorax; pulmonary collapse (20 sources) Pleural effusion; Translations: [Bilateral pleural effusion] 01-09-2022 Episodic Residual codes; unclassified (20 sources) Obstructive sleep apnea syndrome 09-17-2019 Chronic Residual codes; unclassified (13 sources) Edema 07-22-2019 Episodic Residual codes; unclassified (20 sources) Edema of lower extremity 07-28-2019 Episodic Residual codes; unclassified (18 sources) Edema of left lower limb; Translations: [Localized edema] 11-27-2018 Episodic Residual codes; unclassified (20 sources) Peripheral edema 06-19-2023 Episodic Residual codes; unclassified (2 sources) Edema, unspecified; Translations: [Edema, unspecified] Onset: 4 Episodic Residual codes; unclassified (7 sources) Creatinine level - finding 06-26-2023 Episodic Residual codes; unclassified (3 sources) Localized edema; Translations: [Localized edema] Onset: 5 Episodic Rheumatoid arthritis and related disease (20 sources) Arthropathy of lumbar facet joint 02-14-2022 Chronic Skin and subcutaneous tissue infections (20 sources) Cellulitis; Translations: [Cellulitis, unspecified] Onset: 4 11-27-2018 Episodic Spondylosis; intervertebral disc disorders; other back problems (20 sources) Degeneration of lumbar intervertebral disc 02-14-2022 Chronic Spondylosis; intervertebral disc disorders; other back problems (20 sources) Lumbago with sciatica; Translations: [Radicular syndrome of lower limbs] 11-12-2023 Episodic Substance-related disorders (1 source) Opioid dependence, uncomplicated; Translations: [Opioid dependence, uncomplicated] Onset: 5 Chronic Thyroid disorders (20 sources) Hypothyroidism; Translations: [Thyroid nodule] 07-22-2019 Chronic Unclassified (1 source) Unknown / UNK(Unknown) Onset: 8 Unclassified (6 sources) Creatinine level - finding; Translations: [High creatinine] 07-06-2023 Unclassified (15 sources) For resuscitation 08-14-2023 Past or Other Problems Problem Classification Problem Date Documented Date Episodic/Chronic Deficiency and other anemia (2 sources) Folate deficiency anemia, unspecified; Translations: [Folate deficiency anemia, unspecified] Onset: 06-19-2023 Episodic Deficiency and other anemia (2 sources) Nutritional anemia, unspecified; Translations: [Nutritional anemia, unspecified] Onset: 04-25-2023 Episodic Deficiency and other anemia (2 sources) Anemia, unspecified; Translations: [Anemia, unspecified] Onset: 10-19-2024 Episodic Neoplasms of unspecified nature or uncertain behavior (2 sources) Neoplasm of uncertain behavior of skin; Translations: [Neoplasm of uncertain behavior of skin] Onset: 06-17-2023 Episodic Other and unspecified benign neoplasm (2 sources) Melanocytic nevi, unspecified; Translations: [Melanocytic nevi, unspecified] Onset: 06-17-2023 Episodic Other circulatory disease (2 sources) Hypotension, unspecified; Translations: [Hypotension, unspecified] Onset: 04-25-2023 Episodic Unclassified (1 source) 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 [address] OFFICE VISIT Date of Service: 04/26/25956 MR#: [id number] Acct: [id number] Name: RAMÓN THOMAS Rep #: [id number] : 1955 From: Sukhjinder Pinto MD Age/Sex: 69/M [place] [facility] [place]: Signed HPI Subjective Date of Service 04/26/25 Chief Complaint Right lung lesion and anemia History of Present Illness 69-year-old male with multiple chronic medical problems including chronic back pain with sciatica, history of osteomyelitis of the left big toe treated with several months of antibiotics in early 2023, history of folic acid and B12 deficiencies, chronic atrial fibrillation, COPD, history of cardiac failure, history of hyperparathyroidism, history of nephrolithiasis, dyslipidemia, hypotension, hypothyroidism, obesity, valvular heart disease, obstructive sleep apnea, degenerative joint disease. There is also a history of an abnormal MRI appearance of L1 that was followed up with serial MRI imaging concluded to be a benign stable lesion most likely hemangioma. Patient referred in consultation in November 2023 for a normocytic anemia that did not respond to supplementation with folic acid and B12. The patient reports occasional minor rectal bleeding attributed to hemorrhoids when constipated, he had a screening colonoscopy in July 2023 showing diverticular disease, a benign polyp was removed. He was referred back in consultation November 2024 for the incidental finding of right lower lobe pleural-based lung mass when he had an MRI of the abdomen and the mass was visualized prompting a CT of the chest. The patient is a never smoker. November 15, 2024 CT chest ([facility]): Soft tissue and attenuation mass in the right lower thorax appears to be pleural-based. No thoracic lymphadenopathy. December 30, 2024 liver/Lung, right, mass, CT-guided core biopsy: - Two cores of fibrous tissue with mild acute inflammation, abundant old blood pigment, and hemorrhagic necrosis. - Multiple cores of blood clot. - No evidence of neoplasia is seen in these sections (deeper sections examined). April 18, [address]: IMPRESSION: Coronary artery calcification (CAC) is is present A previously noted soft tissue mass along the right lung base has decreased significantly in size since the previous study, on the previous study measured 4.9 x 3.4 cm, on today's examination and measures 2.5 x 1.8 cm. Chronic interstitial changes in both lung todd with nonspecific pleural thickening in both hemithoraces, no organized infiltrate or effusion Fatty liver Incompletely evaluated isodense to left kidney exophytic mass off the upper pole of the left kidney. [facility] Medical History Thrombocytopenia Wears glasses MRSA infection Cancer Thyroid disease Walker as ambulation aid Arthritis Low iron Anemia High cholesterol Chronic cough Non-smoker History of stress test History of atrial fibrillation Cardiology follow-up encounter History of edema Hx of colonic polyps Chronic pain of toe of left foot Chronic pain BiPAP (biphasic positive airway pressure) dependence Sleep apnea Asthma Atrial fibrillation Chronic anemia CKD (chronic kidney disease), stage II Bone lesion Lumbar radiculopathy Restrictive lung disease Permanent atrial fibrillation Peripheral neuropathy Observed sleep apnea Nonrheumatic mitral valve regurgitation Lumbar facet arthropathy Lumbar degenerative disc disease Idiopathic hypertrophic subaortic stenosis Hypothyroidism Hyperlipidemia Nephrolithiasis Hyperparathyroidism Arthritis of left hip (HFpEF) heart failure with preserved ejection fraction COPD (chronic obstructive pulmonary disease) Lesion of lumbar spine Surgical History History of cardiac catheterization Hx of colonoscopy History of lung surgery History of surgery on lower extremity Hx of tonsillectomy History of transesophageal echocardiography (JAMEE) Hx of cardiovascular stress test Hx of echocardiogram Family History Father Myocardial infarction CAD (coronary artery disease) Heart disease Hypertension Mother Hypertension Diabetes Social History household members: none current occupational status: retired Smoking Status: Never smoker alcohol intake: never substance use type: does not use caffeine: Yes Type: carbonated beverages ROS Constitutional Constitutional: Reports systems reviewed and no addt'l complaints, except as documented; Denies fever(s) or weight loss Cardiovascular Cardiovascular: Denies chest pain Respiratory/Chest Respiratory/Chest: D (more content not included)... Normal [facility] .Auto Diffon 04-20-2025 Basophil, Absolute 0.1 10 3/mcL Normal 0.0-0.3 [facility] Comment on above: Performed By: #### A DIFF, ANEU, CBC #### [address] [address] Basophils/100 WBC (Bld) 1.1 % Normal 0.0-2.5 [facility] Comment on above: Performed By: #### A DIFF, ANEU, CBC #### [address] [address] Eosinophil, Absolute 0.2 10 3/mcL Normal 0.0-0.7 [facility] Comment on above: Performed By: #### A DIFF, ANEU, CBC #### [address] [address] Eosinophils/100 WBC (Bld) 3.7 % Normal 0.0-6.0 [facility] Comment on above: Performed By: #### A DIFF, ANEU, CBC #### [address] [address] Lymphocyte, Absolute 0.9 10 3/mcL Normal 0.9-4.3 [facility] Comment on above: Performed By: #### A DIFF, ANEU, CBC #### [address] [address] Lymphocytes/100 WBC (Bld) 16.9 % Low 20.0-40.0 [facility] Comment on above: Performed By: #### A DIFF, ANEU, CBC #### [address] [address] Monocyte, Absolute 0.5 10 3/mcL Normal 0.1-1.4 [facility] Comment on above: Performed By: #### A DIFF, ANEU, CBC #### [address] [address] Monocytes/100 WBC (Bld) 9.9 % Normal 2.0-13.0 [facility] Comment on above: Performed By: #### A DIFF, ANEU, CBC #### [address] [address] Neutrophils/100 WBC (Bld) 68.4 % Normal 50.0-75.0 [facility] Comment on above: Performed By: #### A DIFF, ANEU, CBC #### [address] [address] .GFRon 04-20-2025 Estimated Glomerular Filtration Rate 63 ml/min/1.73sqm Normal [facility] Comment on above: Result Comment: Stages of Chronic Kidney Disease (CKD) Stage Description eGFR(ml/min/1.73 sq.m.) CKD 1 Normal kidney function or >=90 normal kindney function with possible kidney damage (ex. Proteinuria) CKD 2 Kidney damage with mild loss 60-89 of kidney function CKD 3a Mild to moderate loss of kidney 45-59 function CKD 3b Moderate to severe loss of 30-44 of kindey function CKD 4 Severe loss of kidney function 15-29 CKD 5 Kidney failure <15 Note: (go live 2024) the eGFR calculation was updated to the 2020 CKD-EPI creatinine equation without a race factor to calculate the eGFR results. Performed By: #### A DIFF, ANEU, CBC #### [address] [address] .NEUABSon 04-20-2025 Neutrophil, Absolute 3.7 10 3/mcL Normal 2.3-8.1 [facility] Comment on above: Performed By: #### A DIFF, ANEU, CBC #### [address] [address] BMPon 04-20-2025 BUN/Creatinine Ratio 13 ratio Normal 7-27 [facility] Comment on above: Performed By: #### A DIFF, ANEU, CBC #### [address] [address] Calcium [Mass/Vol] 9.1 mg/dL Normal 8.4-10.2 [facility] Comment on above: Performed By: #### A DIFF, ANEU, CBC #### [address] [place], [place] [address] Chloride [Moles/Vol] 103 mmol/L Normal 98-107 [facility] Comment on above: Performed By: #### A DIFF, ANEU, CBC #### [address] [address] CO2 [Moles/Vol] 31 mmol/L Normal 23-31 [facility] Comment on above: Performed By: #### A DIFF, ANEU, CBC #### [address] [address] Creatinine [Mass/Vol] 1.23 mg/dL High 0.67-1.17 [facility] Comment on above: Performed By: #### A DIFF, ANEU, CBC #### [address] [address] Electrolyte Balance 6.0 mEq/L Normal 4.0-15.[address] [facility] Comment on above: Performed By: #### A DIFF, ANEU, CBC #### [address] [address] Glucose [Mass/Vol] 81 mg/dL Low 83-110 [facility] Comment on above: Performed By: #### A DIFF, ANEU, CBC #### [address] [address] Potassium [Moles/Vol] 3.8 mmol/L Normal 3.5-5.1 [facility] Comment on above: Performed By: #### A DIFF, ANEU, CBC #### [address] [address] Sodium [Moles/Vol] 140 mmol/L Normal 136-145 [facility] Comment on above: Performed By: #### A DIFF, ANEU, CBC #### [address] [address] Urea nitrogen [Mass/Vol] 16 mg/dL Normal 7-18 [facility] Comment on above: Performed By: #### A DIFF, ANEU, CBC #### [address] [address] CBCon 04-20-2025 Erythrocyte distribution width (RBC) [Ratio] 15.0 % Normal 11.5-15.5 [facility] Comment on above: Performed By: #### A DIFF, ANEU, CBC #### [address] [address] Hematocrit (Bld) [Volume fraction] 38.1 % Low 40.0-52.0 [facility] Comment on above: Performed By: #### A DIFF, ANEU, CBC #### [address] [address] Hgb 12.7 G/dL Low 13.0-17.5 [facility] Comment on above: Performed By: #### A DIFF, ANEU, CBC #### [address] [address] MCH (RBC) [Entitic mass] 31.2 pg Normal 27.0-33.0 [facility] Comment on above: Performed By: #### A DIFF, ANEU, CBC #### [address] [address] MCHC 33.4 G/dL Normal 32.0-36.0 [facility] Comment on above: Performed By: #### A DIFF, ANEU, CBC #### [address] [address] MCV (RBC) [Entitic vol] 93.2 fL Normal 81.0-100.0 [facility] Comment on above: Performed By: #### A DIFF, ANEU, CBC #### [address] [address] Platelet 109 10 3/mcL Low 150-450 [facility] Comment on above: Performed By: #### A DIFF, ANEU, CBC #### [address] [address] Platelet mean volume (Bld) [Entitic vol] 9.9 fL Normal 6.4-10.5 [facility] Comment on above: Performed By: #### A DIFF, ANEU, CBC #### [address] [address] RBC 4.09 10 6/mcL Low 4.50-6.00 [facility] Comment on above: Performed By: #### A DIFF, ANEU, CBC #### [address] [address] [place], [place] [address] WBC 5.4 10 3/mcL Normal 4.5-10.8 [facility] Comment on above: Performed By: #### A DIFF, ANEU, CBC #### [address] [place], [place] [address] LABORATORYOrdered By: SYSTEM SYSTEM on 04-20-2025 Basophils (Bld) [#/Vol] 0.1 103/mcL Normal 0.0 - 0.3 10^3/mcL AO Workflow SS Basophils/100 WBC (Bld) 1.1 % Normal 0.0 - 2.5 % AO Workflow SS Calcium [Mass/Vol] 9.1 mg/dL Normal 8.4 - 10. 2 mg/dL AO ADM SS Chloride [Moles/Vol] 103 mmol/L Normal 98 - 10 7 mmol/L AO ADM SS CO2 [Moles/Vol] 31 mmol/L Normal 23 - 31 mmol/L AO ADM SS Creatinine [Mass/Vol] 1.23 mg/dL High 0.67 - 1.17 mg/dL AO ADM SS Electrolyte Balance 6.0 mEq/L Normal 4.0 - 15 .0 mEq/L AO ADM SS Eosinophil, Absolute 0.2 103/mcL Normal 0.0 - 0 .7 10^3/mcL AO Workflow SS Eosinophils/100 WBC (Bld) 3.7 % Normal 0. 0 - 6.0 % AO Workflow SS Erythrocyte distribution width (RBC) [Ratio] 15.0 % Normal 11.5 - 15.5 % AO Workflow SS GLOMERULAR FILTRATION RATE/1.73 SQ M.PREDICTED:ARVRAT:PT:SER/P LAS/BLD:QN:CREATININE-BASED FORMULA (CKD-EPI 2020) 63 ml/min/1.73sqm Invalid Interpretation Code AO Chemistry S Comment on above: Interpretive Data: Stages of Chronic Kidney Disease (CKD) Stage Description eGFR(ml/min/1.73 sq.m.) CKD 1 Normal kidney function or >=90 normal kindney function with possible kidney damage (ex. Proteinuria) CKD 2 Kidney damage with mild loss 60-89 of kidney function CKD 3a Mild to moderate loss of kidney 45-59 function CKD 3b Moderate to severe loss of 30-44 of kindey function CKD 4 Severe loss of kidney function 15-29 CKD 5 Kidney failure <15 Note: (go live 2024) the eGFR calculation was updated to the 2020 CKD-EPI creatinine equation without a race factor to calculate the eGFR results. Glucose [Mass/Vol] 81 mg/dL Low 83 - 110 mg/dL AO ADM SS Hematocrit (Bld) [Volume fraction] 38.1 % Low 40.0 - 52.0 % AO Workflow SS Hemoglobin (Bld) [Mass/Vol] 12.7 G/dL Low 13.0 - 17.5 G/dL AO Workflow SS Lymphocytes (Bld) [#/Vol] 0.9 103/mcL Normal 0. 9 - 4.3 10^3/mcL AO Workflow SS Lymphocytes/100 WBC (Bld) 16.9 % Low 20 .0 - 40.0 % AO Workflow SS MCH (RBC) [Entitic mass] 31.2 pg Normal 27. 0 - 33.0 pg AO Workflow SS MCHC 33.4 G/dL Normal 32.0 - 36.0 G/dL AO Workflow SS MCV (RBC) [Entitic vol] 93.2 fL Normal 81.0 - 100.0 fL AO Workflow SS Monocytes (Bld) [#/Vol] 0.5 103/mcL Normal 0.1 - 1.4 10^3/mcL AO Workflow SS Monocytes/100 WBC (Bld) 9.9 % Normal 2.0 - 13.0 % AO Workflow SS Natriuretic peptide.B prohormone N-Terminal [Mass/Vol] 1418 pg/mL High 0 - 125 pg/mL AO ADM SS Comment on above: Interpretive Data: N T-proBNP results of less than 300 pg/mL effectively rules out acute congestive heart failure with 99% negative predictive value. Neutrophils (Bld) [#/Vol] 3.7 103/mcL Normal 2. 3 - 8.1 10^3/mcL AO Workflow SS Neutrophils/100 WBC (Bld) 68.4 % Normal 50 .0 - 75.0 % AO Workflow SS Platelet mean volume (Bld) [Entitic vol] 9.9 fL Normal 6.4 - 10.5 fL AO Workflow SS Platelets (Bld) [#/Vol] 109 103/mcL Low 150 - 450 10^3/mcL AO Workflow SS Potassium [Moles/Vol] 3.8 mmol/L Normal 3.5 - 5.1 mmol/L AO ADM SS RBC (Bld) [#/Vol] 4.09 106/mcL Low 4.50 - 6.00 10^6/mcL AO Workflow SS Sodium [Moles/Vol] 140 mmol/L Normal 136 - 145 mmol/L AO ADM SS Urea nitrogen [Mass/Vol] 16 mg/dL Normal 7 - 18 mg/dL AO ADM SS Urea nitrogen/Creatinine [Mass ratio] 13 ratio Normal 7 - 27 ratio AO ADM SS WBC (Bld) [#/Vol] 5.4 103/mcL Normal 4.5 - 10.8 10^3/mcL AO Workflow SS PBNPon 04-20-2025 Natriuretic peptide B (Bld) [Mass/Vol] 1418 pg/mL High 0-125 [facility] Comment on above: Result Comment: NT-p roBNP results of less than 300 pg/mL effectively rules out acute congestive heart failure with 99% negative predictive value. Performed By: #### A DIFF, ANEU, CBC #### [facility] [address], [place] [address] CBC W/Diff, Automatedon Absolute Lymph 1.28 X10 3/uL Normal 0.83-4.51 [facility] Comment on above: Order Comment: PT ON LY WANTED ISCKARUS LABS, DID NOT DRAW EXTRA DO TO PT NOT WANTING MORE TUBES DRAWN Performed By: #### L 100.0100 #### [facility] [address] [place], [place], [id number] (473) Absolute Neut 4.3 X10 3/uL Normal 2.0-7.7 [facility] Comment on above: Order Comment: PT ON LY WANTED ISCKARUS LABS, DID NOT DRAW EXTRA DO TO PT NOT WANTING MORE TUBES DRAWN Performed By: #### L 100.0100 #### [facility] [address] [place], [address] Basophils/100 WBC (Bld) 0.9 % Normal 0-1 [facility] Comment on above: Order Comment: PT ON LY WANTED ISCKARUS LABS, DID NOT DRAW EXTRA DO TO PT NOT WANTING MORE TUBES DRAWN Performed By: #### L 100.0100 #### [facility] [address] [place], [address] Eosinophils/100 WBC (Bld) 3.9 % Normal 0-5 [facility] Comment on above: Order Comment: PT ON LY WANTED ISCKARUS LABS, DID NOT DRAW EXTRA DO TO PT NOT WANTING MORE TUBES DRAWN Performed By: #### L 100.0100 #### [facility] [address] [place], [address] Erythrocyte distribution width (RBC) [Ratio] 14.1 % Normal 11.6-14.6 [facility] Comment on above: Order Comment: PT ON LY WANTED ISCKARUS LABS, DID NOT DRAW EXTRA DO TO PT NOT WANTING MORE TUBES DRAWN Performed By: #### L 100.0100 #### [facility] [address] [place], [address] Hematocrit (Bld) [Volume fraction] 39.1 % Low 40-54 [facility] Comment on above: Order Comment: PT ON LY WANTED ISCKARUS LABS, DID NOT DRAW EXTRA DO TO PT NOT WANTING MORE TUBES DRAWN Performed By: #### L 100.0100 #### [facility] [address] [place], [address] Hemoglobin (Bld) [Mass/Vol] 12.7 g/dL Low 13.0-16. 5 [facility] Comment on above: Order Comment: PT ON LY WANTED ISCKARUS LABS, DID NOT DRAW EXTRA DO TO PT NOT WANTING MORE TUBES DRAWN Performed By: #### L 100.0100 #### [facility] [address] [place], [address] IG% 0.500 Normal 0.0-0.9 [facility] Comment on above: Order Comment: PT ON LY WANTED ISCKARUS LABS, DID NOT DRAW EXTRA DO TO PT NOT WANTING MORE TUBES DRAWN Result Comment: IG% - Immature Granulocytes (promyelocytes, myelocytes and metamyelocytes) > 1% indicates that a LEFT SHIFT is Present. Performed By: #### L 100.0100 #### [facility] [address] [place], [address] Lymphocytes/100 WBC (Bld) 19.3 % Normal 19-41 [facility] Comment on above: Order Comment: PT ON LY WANTED ISCKARUS LABS, DID NOT DRAW EXTRA DO TO PT NOT WANTING MORE TUBES DRAWN Performed By: #### L 100.0100 #### [facility] [address] [place], [address] MCH (RBC) [Entitic mass] 30.8 pg Normal 27.0-32.0 [facility] Comment on above: Order Comment: PT ON LY WANTED ISCKARUS LABS, DID NOT DRAW EXTRA DO TO PT NOT WANTING MORE TUBES DRAWN Performed By: #### L 100.0100 #### [facility] [address] [place], [address] MCHC (RBC) [Mass/Vol] 32.5 g/dL Normal 32-36 [facility] Comment on above: Order Comment: PT ON LY WANTED ISCKARUS LABS, DID NOT DRAW EXTRA DO TO PT NOT WANTING MORE TUBES DRAWN Performed By: #### L 100.0100 #### [facility] [address] [place], [address] MCV (RBC) [Entitic vol] 94.9 fL High 80-94 [facility] Comment on above: Order Comment: PT ON LY WANTED ISCKARUS LABS, DID NOT DRAW EXTRA DO TO PT NOT WANTING MORE TUBES DRAWN Performed By: #### L 100.0100 #### [facility] [address] [place], [address] Monocytes/100 WBC (Bld) 10.6 % High 0-10 [facility] Comment on above: Order Comment: PT ON LY WANTED ISCKARUS LABS, DID NOT DRAW EXTRA DO TO PT NOT WANTING MORE TUBES DRAWN Performed By: #### L 100.0100 #### [facility] [address] [place], [address] Neutrophils/100 WBC (Bld) 64.8 % Normal 47-70 [facility] Comment on above: Order Comment: PT ON LY WANTED ISCKARUS LABS, DID NOT DRAW EXTRA DO TO PT NOT WANTING MORE TUBES DRAWN Performed By: #### L 100.0100 #### [facility] [address] [place], [address] Nucleated RBC (Bld) [#/Vol] 0 10*3/uL Normal 0-5 [facility] Comment on above: Order Comment: PT ON LY WANTED ISCKARUS LABS, DID NOT DRAW EXTRA DO TO PT NOT WANTING MORE TUBES DRAWN Performed By: #### L 100.0100 #### [facility] [address] [place], [address] Platelet mean volume (Bld) [Entitic vol] 11.4 fL Normal 6.2-12.0 [facility] Comment on above: Order Comment: PT ON LY WANTED ISCKARUS LABS, DID NOT DRAW EXTRA DO TO PT NOT WANTING MORE TUBES DRAWN Performed By: #### L 100.0100 #### [facility] [address] [place], [address] Platelets (Bld) [#/Vol] 120 10*3/uL Low 150-450 [facility] Comment on above: Order Comment: PT ON LY WANTED ISCKARUS LABS, DID NOT DRAW EXTRA DO TO PT NOT WANTING MORE TUBES DRAWN Performed By: #### L 100.0100 #### [facility] [address] [place], [address] RBC (Bld) [#/Vol] 4.12 10*6/uL Low 4.6-6.2 [facility] Comment on above: Order Comment: PT ON LY WANTED ISCKARUS LABS, DID NOT DRAW EXTRA DO TO PT NOT WANTING MORE TUBES DRAWN Performed By: #### L 100.0100 #### [facility] [address] [place], [address] RDW SD 49.1 fl High 35.1-43.9 [facility] Comment on above: Order Comment: PT ON LY WANTED ISCKARUS LABS, DID NOT DRAW EXTRA DO TO PT NOT WANTING MORE TUBES DRAWN Performed By: #### L 100.0100 #### [facility] [address] [place], [address] WBC (Bld) [#/Vol] 6.6 10*3/uL Normal 4.4-11.0 [facility] Comment on above: Order Comment: PT ON LY WANTED ISCKARUS LABS, DID NOT DRAW EXTRA DO TO PT NOT WANTING MORE TUBES DRAWN Performed By: #### L 100.0100 #### [facility] [address] [place], [address] Chest WITH Contraston 2024 Chest WITH Contrast [facility] Imaging Services [address] [place] [address] Chest WITH Contrast MR#: [id number] Acct: [id number] Name: RAMÓN THOMAS Rep #: [id number] : 1955 M 69 From: Chaim Caldwell MD PCP: Dr. Jay Easton, DO Status: REG CLI Study: Chest WITH Contrast Date of Exam: 04/18/25 Exam# [id number] Ordering Dr: Sukhjinder Pinto MD PROCEDURE: CHEST WITH CONTRAST 04/18/2025 REASON FOR EXAM: JUST[facility] CT 11/15/24 RLL LESION F/U, IV CONTRAST TECHNIQUE: Procedure Code: CTCHW Modality: CT Procedure: CHEST WITH CONTRAST Coronal and Sagittal reconstruction series were provided. CONTRAST: VOLUME: mL One or more dose reduction techniques were used (e.g., Automated exposure control, adjustment of the mA and/or kV according to patient size, use of iterative reconstruction technique). RADIATION DOSE SUMMARY: CTDlvol: 35.36 mGy DLP: 602.83 mGycm COMPARISON: 11/15/2024 FINDINGS: A previously noted well-defined soft tissue mass in the right lung base is decreased significantly in size since the previous study. On today's examination that measures 2.5 x 1.8 cm, on the previous study it measured approximately 4.9 by 3.4 cm. Chronic interstitial changes noted elsewhere in both lung todd with nonspecific pleural thickening but there is no organized infiltrate, or effusion, no new suspicious noncalcified mass or nodule. The soft tissue windows show a normal-appearing thyroid gland. No suspicious axillary, mediastinal or perihilar adenopathy. The thoracic aorta tapers normally. There are calcified coronary vessels. Limited cuts through the upper abdomen do not show a suspicious abnormality, there is fatty infiltration of the liver and simple renal cysts are noted. There is however a isodense to left kidney exophytic mass off the upper pole of the left kidney which is incompletely defined measuring 2 point 2 cm. Consider dedicated renal ultrasound or further evaluation of the abdomen and pelvis with CT. Bony structures show degenerative change CT/Chest WITH Contrast IMPRESSION: Coronary artery calcification (CAC) is is present A previously noted soft tissue mass along the right lung base has decreased significantly in size since the previous study, on the previous study measured 4.9 x 3.4 cm, on today's examination and measures 2.5 x 1.8 cm. Chronic interstitial changes in both lung todd with nonspecific pleural thickening in both hemithoraces, no organized infiltrate or effusion Fatty liver Incompletely evaluated isodense to left kidney exophytic mass off the upper pole of the left kidney. Consider dedicated ultrasound or CT or MRI for further evaluation Reading Location: [address] CC: Dr. Jay Easton DO; Dr. Sukhjinder Pinto MD Rn Physician Office: Signed Normal [facility] PSA,Total - Annual Screenon 02-15-2025 PSA,TOT SCREEN 0.26 ng/mL Normal 0.02-4.00 [facility] Comment on above: Order Comment: JUST WANTING MELLISA ORDER Result Comment: This test was performed using the [employer] tPSA method. Measured values of a patient??sample can vary depending on the testing procedure used. PSA values determined on patient samples by different testing procedures cannot be used interchangeably. If there is a change in PSA assays while monitoring therapy, sequential testing should be performed to confirm baseline values. Performed By: #### L 501.9910 #### [facility] [place], [address] Melquiades 01-25-2025 Potassium [Moles/Vol] 3.9 mmol/L Normal 3.5-5.[address] [facility] Comment on above: Performed By: #### A DIFF, ANEU, CBC #### [facility] [address], [place] [address] LABORATORYOrdered By: SYSTEM SYSTEM on 01-25-2025 Potassium [Moles/Vol] 3.9 mmol/L Normal 3.5 - 5.1 mmol/L AO ADM SS Gastroenterology Visit Repor ton 01-18-2025 Gastroenterology Visit Report [facility] [address] [place] [address] OFFICE VISIT Date of Service: 01/18/25 MR#: [id number] Acct: [id number] Name: RAMÓN THOMAS Rep #: [id number] : 1955 Provider: Dr. Behzad baker MD Age/Sex: 69/M [place] [facility] [place]: Signed Intake Vital Signs 07/12/24 13:44 01/17/25 11:41 01/18/25 10:47 Height 5 ft 8 in 5 ft 8 in 5 ft 8 in Weight: 191 lb 195 lb BMI 29.0 29.6 BP 110/75 112/75 Blood Pressure Location Rt brachial Rt brachial Position Sitting Sitting Respiration 14 Pulse 80 75 Pulse Source Monitor Temp 97.6 F L Pulse Oximetry (%) 97 98 Oxygen Delivery Method room air room air Intake Visit Reasons: POST MRI Chief Complaint: Right lung lesion and anemia Allergies Tetracyclines Allergy (Verified 01/17/25 11:44) Swelling Have you fallen in the past year?: No PFSH Medical History Thrombocytopenia Wears glasses MRSA infection Cancer Thyroid disease Walker as ambulation aid Arthritis Low iron Anemia High cholesterol Chronic cough Non-smoker History of stress test History of atrial fibrillation Cardiology follow-up encounter History of edema Hx of colonic polyps Chronic pain of toe of left foot Chronic pain BiPAP (biphasic positive airway pressure) dependence Sleep apnea Asthma Atrial fibrillation Chronic anemia CKD (chronic kidney disease), stage II Bone lesion Lumbar radiculopathy Restrictive lung disease Permanent atrial fibrillation Peripheral neuropathy Observed sleep apnea Nonrheumatic mitral valve regurgitation Lumbar facet arthropathy Lumbar degenerative disc disease Idiopathic hypertrophic subaortic stenosis Hypothyroidism Hyperlipidemia Nephrolithiasis Hyperparathyroidism Arthritis of left hip (HFpEF) heart failure with preserved ejection fraction COPD (chronic obstructive pulmonary disease) Lesion of lumbar spine Surgical History History of cardiac catheterization Hx of colonoscopy History of lung surgery History of surgery on lower extremity Hx of tonsillectomy History of transesophageal echocardiography (JAMEE) Hx of cardiovascular stress test Hx of echocardiogram Family History Father Myocardial infarction CAD (coronary artery disease) Heart disease Hypertension Mother Hypertension Diabetes Social History household members: none current occupational status: retired Smoking Status: Never smoker alcohol intake: never substance use type: does not use caffeine: Yes Type: carbonated beverages HPI HPI Chief Complaint: Right lung lesion and anemia Details: RAMÓN THOMAS, is a 69 M who presents to the office today for follow up. OV 04.09.- referred for hyperbilirubinemia. Denies abdominal pain, jaundice, recent upper or lower GI bleed, nausea or vomiting, itching or confusion/ US elastography 11.02.06 at [facility] Results scanned in OV 07.12.25- Patient well since last visit. States his PCP ordered elastography in April that was concerning for liver mass. Follow up MRI showed multiple hemangiomas. Is not currently having any GI concerns. Denies abdominal pain, nausea, vomiting, dizziness, confusion. Will have occasional constipation but otherwise BMs are normal. OV 8..25- Previously saw Oncology regarding right lower lobe pleural based lung mass seen on MRI. Underwent CT guided bx 12/30. CT-guided biopsy showed no evidence of malignancy but rather reported inflammation fibrosis or old pigment or hemorrhagic necrosis. Sometimes he has black stool which he attributes to iron supplement Denies abdominal pain, dizziness, weakness or confusion. Reports lower leg edema. 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 Does not have any GI concerns. ROS Const Constitutional: No fatigue, fever(s) or weight change Eyes Eyes: No blurry vision or change in vision ENT ENT: No difficulty swallowing Resp Respiratory: No shortness of breath or wheezing Cardio Cardiology: Positive for leg pain with exertion Gastro GI: No abdominal pain, belching, bloating, change in bowel habits, change in stool character, coffee ground emesis, constipation, cramping, diarrhea, heartburn, difficulty swallowing, feeling full early, excessive flatus, incontinent of stools, Vomiting blood/hematemesis, Blood in stool, loose stools, Black,tarry stools, nausea/dyspepsia, pain with swallowing, vomiting or other Genitourinary Male: No difficulty urinating or burning urination Musc Musculoskeletal: Positive for abnormal gait, joint pain, joint swelling, stiffnes (more content not included)... Normal [facility] Absolute lymphocyte countOrd ered By: [facility] Millie on 01-17-2025 Lymphocytes Auto (Unsp spec) [#/Vol] 1.41 10*3/uL 0.83-4.51 [facility] Absolute neutrophil countOrd ered By: [facility] 01-17-2025 Neutrophils (Bld) [#/Vol] 4.4 10*3/uL 2.0-7.7 [facility] Automated lymphocyte count a s percentage of total leukocytesOrdered By: [facility] Pinto on 01-17-2025 Lymphocytes/100 WBC Auto (Unsp spec) 21.1 % 19-41 [facility] Basophil percentageOrdered B y: Sukhjinder Pinto on 01-17-2025 Basophils/100 WBC (Bld) 1.2 % High 0-1 [facility] CBC W/Diff, Automatedon Absolute Lymph 1.41 X10 3/uL Normal 0.83-4.51 [facility] Comment on above: Performed By: #### L 100.0100, L300.4310, L300.3900 #### [facility] [address] [place], [address] Absolute Neut 4.4 X10 3/uL Normal 2.0-7.7 [facility] Comment on above: Performed By: #### L 100.0100, L300.4310, L300.3900 #### [facility] [address] [place], [address] Basophils/100 WBC (Bld) 1.2 % High 0-1 [facility] Comment on above: Performed By: #### L 100.0100, L300.4310, L300.3900 #### [facility] [address] [place], [address] Eosinophils/100 WBC (Bld) 1.5 % Normal 0-5 [facility] Comment on above: Performed By: #### L 100.0100, L300.4310, L300.3900 #### [facility] [address] [place], [address] Erythrocyte distribution width (RBC) [Ratio] 13.6 % Normal 11.6-14.6 [facility] Comment on above: Performed By: #### L 100.0100, L300.4310, L300.3900 #### [facility] [address] [place], [address] Hematocrit (Bld) [Volume fraction] 40.8 % Normal 40-54 [facility] Comment on above: Performed By: #### L 100.0100, L300.4310, L300.3900 #### [facility] [address] [place], [address] Hemoglobin (Bld) [Mass/Vol] 13.4 g/dL Normal 13.0-16. 5 [facility] Comment on above: Performed By: #### L 100.0100, L300.4310, L300.3900 #### [facility] [address] [place], [address] IG% 0.400 Normal 0.0-0.9 [facility] Comment on above: Result Comment: IG% - Immature Granulocytes (promyelocytes, myelocytes and metamyelocytes) > 1% indicates that a LEFT SHIFT is Present. Performed By: #### L 100.0100, L300.4310, L300.3900 #### [facility] [address] [place], [address] Lymphocytes/100 WBC (Bld) 21.1 % Normal 19-41 [facility] Comment on above: Performed By: #### L 100.0100, L300.4310, L300.3900 #### [facility] [address] [place], [address] MCH (RBC) [Entitic mass] 30.8 pg Normal 27.0-32.0 [facility] Comment on above: Performed By: #### L 100.0100, L300.4310, L300.3900 #### [facility] [address] [place], [address] MCHC (RBC) [Mass/Vol] 32.8 g/dL Normal 32-36 [facility] Comment on above: Performed By: #### L 100.0100, L300.4310, L300.3900 #### [facility] [address] [place], [address] MCV (RBC) [Entitic vol] 93.8 fL Normal 80-94 [facility] Comment on above: Performed By: #### L 100.0100, L300.4310, L300.3900 #### [facility] [address] [place], [address] Monocytes/100 WBC (Bld) 9.9 % Normal 0-10 [facility] Comment on above: Performed By: #### L 100.0100, L300.4310, L300.3900 #### [facility] [address] [place], [address] Neutrophils/100 WBC (Bld) 65.9 % Normal 47-70 [facility] Comment on above: Performed By: #### L 100.0100, L300.4310, L300.3900 #### [facility] [address] [place], [address] Nucleated RBC (Bld) [#/Vol] 0 10*3/uL Normal 0-5 [facility] Comment on above: Performed By: #### L 100.0100, L300.4310, L300.3900 #### [facility] [address] [place], [address] Platelet mean volume (Bld) [Entitic vol] 11.1 fL Normal 6.2-12.0 [facility] Comment on above: Performed By: #### L 100.0100, L300.4310, L300.3900 #### [facility] [address] [place], [address] Platelets (Bld) [#/Vol] 108 10*3/uL Low 150-450 [facility] Comment on above: Performed By: #### L 100.0100, L300.4310, L300.3900 #### [facility] [address] [place], [address] RBC (Bld) [#/Vol] 4.35 10*6/uL Low 4.6-6.2 [facility] Comment on above: Performed By: #### L 100.0100, L300.4310, L300.3900 #### [facility] [address] [place], [address] RDW SD 46.5 fl High 35.1-43.9 [facility] Comment on above: Performed By: #### L 100.0100, L300.4310, L300.3900 #### [facility] [address] [place], [address] WBC (Bld) [#/Vol] 6.7 10*3/uL Normal 4.4-11.0 [facility] Comment on above: Performed By: #### L 100.0100, L300.4310, L300.3900 #### [facility] [address] [place], [place], [address] Eosinophil percentageOrdered By: Mary Katenettie Pinto on 01-17-2025 Eosinophils/100 WBC (Bld) 1.5 % 0-5 [facility] Erythrocyte distribution wid th ratioOrdered By: [facility] Millie on 01-17-2025 Erythrocyte distribution width (RBC) [Ratio] 13.6 % 11.6-14.6 [facility] Erythrocyte distribution wid th standard deviationOrdered By: [facility] Pinto on 01-17-2025 Erythrocyte distribution width (RBC) [Ratio] 46.5 fl High 35.1-43.9 [facility] Ferritinon 01-17-2025 Ferritin [Mass/Vol] 63 ng/mL Normal 37-417 [facility] Comment on above: Performed By: #### L 100.0100, L300.4310, L300.3900 #### [facility] [address] [facility] [place], [place], [id number] Hematocrit Auto (Bld) [Volum e fraction]Ordered By: [facility] Pinto on 01-17-2025 Hematocrit (Bld) [Volume fraction] 40.8 % 40-54 [facility] Hemoglobin measurementOrdere d By: Mary Katenettie Pinto on 01-17-2025 Hemoglobin (Bld) [Mass/Vol] 13.4 g/dL 13.0-16. 5 [facility] Immature granulocytes/100 WB C Auto (Bld)Ordered By: Sukhjinder Pinto on 01-17-2025 Immature granulocytes/100 WBC (Bld) 0.400 % 0.0-0.9 [facility] Comment on above: IG% - Immature Granu locytes (promyelocytes, myelocytes and metamyelocytes) > 1% indicates that a LEFT SHIFT is Present. Immature platelet percentage Ordered By: [facility] Pinto on 01-17-2025 Platelets reticulated/100 platelets Auto (Bld) 3.2 % 1.0-7.9 [facility] Comment on above: Low PLT + Low IPF finn ggest a bone marrow production disorderLow PLT + high IPF suggests peripheral destruction(e.g.ITP, TTP, HIT, DIC, autoimmune) or bone marrow recoveryTrending of serial IPF measurements is recommended when evaluating for bone marrow responesValue above normal range indicates an increase in RBC cellular response from bone marrow. Iron measurement (mass/mass) Ordered By: Sukhjinder Pinto on 01-17-2025 Iron (Unsp spec) [Mass/Mass] 85 ug/dL 65-175 [facility] Iron+Iron Binding Capacityon 01-17-2025 Iron [Mass/Vol] 85 ug/dL Normal 65-175 [facility] Comment on above: Performed By: #### L 100.0100, L300.4310, L300.3900 #### [facility] [address] [place], [address] IRON SATURATION 29.0 Normal 9-55 [facility] Comment on above: Performed By: #### L 100.0100, L300.4310, L300.3900 #### [facility] [address] [place], [address] TIBC 291 ug/dL Normal 250-450 [facility] Comment on above: Performed By: #### L 100.0100, L300.4310, L300.3900 #### [facility] [address] [place], [address] UIBC 206 ug/dL Low 228-428 [facility] Comment on above: Performed By: #### L 100.0100, L300.4310, L300.3900 #### [facility] [address] [place], [address] MCV (mean corpuscular volume ) determinationOrdered By: Sukhjinder Pinto on 01-17-2025 MCV (RBC) [Entitic vol] 93.8 fL 80-94 [facility] Mean corpuscular hemoglobin (MCH) determinationOrdered By: Sukhjinder Pinto on 01-17-2025 MCH (RBC) [Entitic mass] 30.8 pg 27.0-32.0 [facility] Mean corpuscular hemoglobin concentration (MCHC) determinationOrdered By: Sukhjinder Pinto on 01-17-2025 MCHC (RBC) [Mass/Vol] 32.8 g/dL 32-36 [facility] Mean platelet volume determi nationOrdered By: Sukhjinder Pinto on 01-17-2025 Platelet mean volume (Bld) [Entitic vol] 11.1 fL 6.2-12.0 [facility] Monocyte percentageOrdered B y: Sukhjinder Pinto on 01-17-2025 Monocytes/100 WBC (Bld) 9.9 % 0-10 [facility] Neutrophil percentageOrdered By: Sukhjinder Pinto on 01-17-2025 Neutrophils/100 WBC (Bld) 65.9 % 47-70 [facility] No Panel InformationOrdered By: Sukhjinder Pinto on 01-17-2025 Unsaturated Iron Binding Capacity 206 ug/dL Low 228-428 [facility] Nucleated red blood cell per centageOrdered By: Sukhjinder Pinto on 01-17-2025 Nucleated RBC/100 WBC (Bld) [Ratio] 0 % 0-5 [facility] Oncology Visit Reporton Oncology Visit Report [facility] [address] [place] [address] OFFICE VISIT Date of Service: 01/17/25 1141 MR#: [id number] Acct: [id number] Name: RAMÓN THOMAS Rep #: [id number] : 1955 From: Sukhjinder Pinto MD Age/Sex: 69/M Location[place] [facility] [place] Status: Signed HPI Subjective Date of Service 01/17/25 Chief Complaint Right lung lesion and anemia History of Present Illness 69-year-old male with multiple chronic medical problems including chronic back pain with sciatica, history of osteomyelitis of the left big toe treated with several months of antibiotics in early 2023, history of folic acid and B12 deficiencies, chronic atrial fibrillation, COPD, history of cardiac failure, history of hyperparathyroidism, history of nephrolithiasis, dyslipidemia, hypotension, hypothyroidism, obesity, valvular heart disease, obstructive sleep apnea, degenerative joint disease. There is also a history of an abnormal MRI appearance of L1 that was followed up with serial MRI imaging concluded to be a benign stable lesion most likely hemangioma. Patient referred in consultation in November 2023 for a normocytic anemia that did not respond to supplementation with folic acid and B12. The patient reports occasional minor rectal bleeding attributed to hemorrhoids when constipated, he had a screening colonoscopy in July 2023 showing diverticular disease, a benign polyp was removed. He was referred back in consultation November 2024 for the incidental finding of right lower lobe pleural-based lung mass when he had an MRI of the abdomen and the mass was visualized prompting a fourth CT of the chest. The patient is a never smoker. November 15, 2024 CT chest ([facility]): Soft tissue and attenuation mass in the right lower thorax appears to be pleural-based. No thoracic lymphadenopathy. December 30, 2024 liver/Lung, right, mass, CT-guided core biopsy: - Two cores of fibrous tissue with mild acute inflammation, abundant old blood pigment, and hemorrhagic necrosis. - Multiple cores of blood clot. - No evidence of neoplasia is seen in these sections (deeper sections examined). [facility] Medical History (Updated 01/17/25 @ 12:[address] Sukhjinder Pinto MD) Thrombocytopenia Wears glasses MRSA infection Cancer Thyroid disease Walker as ambulation aid Arthritis Low iron Anemia High cholesterol Chronic cough Non-smoker History of stress test History of atrial fibrillation Cardiology follow-up encounter History of edema Hx of colonic polyps Chronic pain of toe of left foot Chronic pain BiPAP (biphasic positive airway pressure) dependence Sleep apnea Asthma Atrial fibrillation Chronic anemia CKD (chronic kidney disease), stage II Bone lesion Lumbar radiculopathy Restrictive lung disease Permanent atrial fibrillation Peripheral neuropathy Observed sleep apnea Nonrheumatic mitral valve regurgitation Lumbar facet arthropathy Lumbar degenerative disc disease Idiopathic hypertrophic subaortic stenosis Hypothyroidism Hyperlipidemia Nephrolithiasis Hyperparathyroidism Arthritis of left hip (HFpEF) heart failure with preserved ejection fraction COPD (chronic obstructive pulmonary disease) Lesion of lumbar spine Surgical History History of cardiac catheterization Hx of colonoscopy History of lung surgery History of surgery on lower extremity Hx of tonsillectomy History of transesophageal echocardiography (JAMEE) Hx of cardiovascular stress test Hx of echocardiogram Family History Father Myocardial infarction CAD (coronary artery disease) Heart disease Hypertension Mother Hypertension Diabetes Social History household members: none current occupational status: retired Smoking Status: Never smoker alcohol intake: never substance use type: does not use caffeine: Yes Type: carbonated beverages ROS ROS Narrative Seizure 138 2024 Intake Vital Signs 07/12/24 13:44 12/13/24 14:49 01/17/25 11:41 Height 5 ft 8 in 5 ft 8 in 5 ft 8 in Weight: 86.636 kg BMI 29.0 BP 110/75 Blood Pressure Location Rt brachial Position Sitting Respiration 14 Pulse 80 Pulse Source Monitor Temp 97.6 F L Temperature Source Temporal Artery Pulse Oximetry (%) 97 Oxygen Delivery Method room air Intake 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 Normal [facility] Platelet countOrdered By: Sandra Pinto on 01-17-2025 Platelets (Bld) [#/Vol] 108 10*3/uL Low 150-450 [facility] RBC Auto (Bld) [#/Vol]Ordere d By: Sukhjinder Pinto on 01-17-2025 RBC (Bld) [#/Vol] 4.35 10*6/uL Low 4.6-6.2 [facility] Retic Panelon 01-17-2025 IM RET FRACTION 4.80 Normal 3.00-15.90 [facility] Comment on above: Performed By: #### L 100.0100, L300.4310, L300.3900 #### [facility] [address] [place], [address] IPF 3.2 Normal 1.0-7.9 [facility] Comment on above: Result Comment: Low PLT + Low IPF suggest a bone marrow production disorder Low PLT + high IPF suggests peripheral destruction (e.g.ITP, TTP, HIT, DIC, autoimmune) or bone marrow recovery Trending of serial IPF measurements is recommended when evaluating for bone marrow respones Value above normal range indicates an increase in RBC cellular response from bone marrow. Performed By: #### L 100.0100, L300.4310, L300.3900 #### [facility] [address] [place], [address] RET-HE 35.1 pg High 30-35 [facility] Comment on above: Performed By: #### L 100.0100, L300.4310, L300.3900 #### [facility] [address] [place], [address] Retic Count 1.09 Normal 0.5-1.5 [facility] Comment on above: Performed By: #### L 100.0100, L300.4310, L300.3900 #### [facility] [address] [place], [address] Reticulocyte hemoglobin equi valent (RET-He) measurementOrdered By: Sukhjinder Pinto on 01-17-2025 Hemoglobin (Reticulocytes) [Entitic mass] 35.1 pg High 30-35 [facility] Reticulocytes Auto (Bld) [#/ Vol]Ordered By: Sukhjinder Pinto on 01-17-2025 Reticulocytes/100 RBC (Bld) 1.09 % 0.5-1.5 [facility] Serum or plasma ferritin airam surement (mass/volume)Ordered By: Sukhjinder Pinto on 01-17-2025 Ferritin [Mass/Vol] 63 ng/mL 37-417 [facility] Serum or plasma iron saturat ion measurement (mass fraction)Ordered By: Sukhjinder Pinto on 01-17-2025 Iron saturation [Mass fraction] 29.0 % 9-55 [facility] Vitamin B12on 01-17-2025 Cobalamin (Vitamin B12) [Mass/Vol] 588 pg/mL Normal 180-914 [facility] Comment on above: Performed By: #### L 100.0100, L300.4310, L300.3900 #### [facility] [address] [place], [address] Vitamin B12 ser/plasOrdered By: Sukhjinder Pinto on 01-17-2025 Cobalamin (Vitamin B12) [Mass/Vol] 588 pg/mL 180-914 [facility] White blood cell (WBC) count Ordered By: Sukhjinder Pinto on 01-17-2025 WBC (Bld) [#/Vol] 6.7 10*3/uL 4.4-11.0 [facility] Surgical pathology reportOrd ered By: Cindy White on 01-03-2025 Surgical pathology study [facility] Absolute lymphocyte countOrd ered By: Jose Alberto Wing on 12-30-2024 Lymphocytes Auto (Unsp spec) [#/Vol] 1.12 10*3/uL 0.83-4.51 [facility] Absolute neutrophil countOrd ered By: Jose Alberto Wing on 12-30-2024 Neutrophils (Bld) [#/Vol] 2.5 10*3/uL 2.0-7.7 [facility] Activated partial thrombopla stin time (aPTT) in platelet poor plasma by coagulation aOrdered By: Jose Alberto Wing on 12-30-2024 aPTT Coag (PPP) [Time] 32.0 s 24.1-36.2 [facility] Automated lymphocyte count a s percentage of total leukocytesOrdered By: Jose Alberto Wing on 12-30-2024 Lymphocytes/100 WBC Auto (Unsp spec) 26.7 % 19-41 [facility] Basophil percentageOrdered B y: Jose Alberto Wing on 12-30-2024 Basophils/100 WBC (Bld) 1.2 % High 0-1 [facility] Biopsy/Inj or Needle Placeme nton 12-30-2024 Biopsy/Inj or Needle Placement [facility] Imaging Services [address] [place], [place] [address] Biopsy/Inj or Needle Placement MR#: [id number] Acct: [id number] Name: RAMÓN THOMAS Rep #: [id number] : 1955 M 69 From: Jose Alberto araiza MD PCP: Dr. Jay Easton, DO Status: REG CLI Study: Biopsy/Inj or Needle Placement Date of Exam: 0 12/30/24 Exam# [id number] Ordering Dr: Sukhjinder Pinto MD EXAM: CT-guided biopsy of a right lower lobe nodule adjacent to the right lobe of the liver. CLINICAL HISTORY: Nodular density in the right lower lobe adjacent to the dome of the right lobe of the liver. COMPARISON: Prior CT scan dated November 15, 2024. TECHNIQUE: The patient was in the slightly right anterior oblique position. The procedure as well as the benefits and possible complications including infection, bleeding and pneumothorax were explained to the patient and the patient's . Informed consent was obtained. Conscious sedation was performed. 2 mg of Versed and 50 mcg of fentanyl intravenously. Conscious sedation was started at 10:24 a.m. and terminated at 10:50 a.m.. The patient was independently monitored by the department nurse. The overlying skin was prepped and draped in the usual sterile fashion. Following local anesthetic application, a 20 gauge biopsy needle was placed into the nodule. 6 core biopsies were obtained. The pathologist deemed the specimen adequate. Dose report: CTDI L volume: 19.5 mGy. DLP: 458.94. FINDINGS: Successful CT-guided core biopsies of the right lower lobe nodule adjacent to the right lobe of the liver. The patient tolerated the procedure well. CT/Biopsy/Inj or Needle Placement IMPRESSION: Successful CT-guided core biopsies of the right lower lobe pulmonary nodule adjacent of the right lobe of the liver. The patient tolerated the procedure well. No immediate complication is noted. Reading Location: [place] [address] CC: Dr. Jay Easton DO; Dr. Sukhjinder Pinto MD Rn Physician Office: Signed Normal [facility] CBC W/Diff, Automatedon 12-14 Absolute Lymph 1.12 X10 3/uL Normal 0.83-4.51 [facility] Comment on above: Performed By: #### L 100.0100, L300.4310, L300.3900 #### [facility] [address] [place], [address] Absolute Neut 2.5 X10 3/uL Normal 2.0-7.7 [facility] Comment on above: Performed By: #### L 100.0100, L300.4310, L300.3900 #### [facility] [address] [place], [address] Basophils/100 WBC (Bld) 1.2 % High 0-1 [facility] Comment on above: Performed By: #### L 100.0100, L300.4310, L300.3900 #### [facility] [address] [place], [address] Eosinophils/100 WBC (Bld) 1.7 % Normal 0-5 [facility] Comment on above: Performed By: #### L 100.0100, L300.4310, L300.3900 #### [facility] [address] [place], [address] Erythrocyte distribution width (RBC) [Ratio] 13.5 % Normal 11.6-14.6 [facility] Comment on above: Performed By: #### L 100.0100, L300.4310, L300.3900 #### [facility] [address] [place], [address] Hematocrit (Bld) [Volume fraction] 37.4 % Low 40-54 [facility] Comment on above: Performed By: #### L 100.0100, L300.4310, L300.3900 #### [facility] [address] [place], [address] Hemoglobin (Bld) [Mass/Vol] 12.4 g/dL Low 13.0-16. 5 [facility] Comment on above: Performed By: #### L 100.0100, L300.4310, L300.3900 #### [facility] [address] [place], [address] IG% 0.200 Normal 0.0-0.9 [facility] Comment on above: Result Comment: IG% - Immature Granulocytes (promyelocytes, myelocytes and metamyelocytes) > 1% indicates that a LEFT SHIFT is Present. Performed By: #### L 100.0100, L300.4310, L300.3900 #### [facility] [address] [place], [address] Lymphocytes/100 WBC (Bld) 26.7 % Normal 19-41 [facility] Comment on above: Performed By: #### L 100.0100, L300.4310, L300.3900 #### [facility] [address] [place], [address] MCH (RBC) [Entitic mass] 30.8 pg Normal 27.0-32.0 [facility] Comment on above: Performed By: #### L 100.0100, L300.4310, L300.3900 #### [facility] [address] [place], [address] MCHC (RBC) [Mass/Vol] 33.2 g/dL Normal 32-36 [facility] Comment on above: Performed By: #### L 100.0100, L300.4310, L300.3900 #### [facility] [address] [place], [address] MCV (RBC) [Entitic vol] 93.0 fL Normal 80-94 [facility] Comment on above: Performed By: #### L 100.0100, L300.4310, L300.3900 #### [facility] [address] [place], [address] Monocytes/100 WBC (Bld) 11.2 % High 0-10 [facility] Comment on above: Performed By: #### L 100.0100, L300.4310, L300.3900 #### [facility] [address] [place], [address] Neutrophils/100 WBC (Bld) 59.0 % Normal 47-70 [facility] Comment on above: Performed By: #### L 100.0100, L300.4310, L300.3900 #### [facility] [address] [place], [address] Nucleated RBC (Bld) [#/Vol] 0 10*3/uL Normal 0-5 [facility] Comment on above: Performed By: #### L 100.0100, L300.4310, L300.3900 #### [facility] [address] [place], [address] Platelet mean volume (Bld) [Entitic vol] 10.9 fL Normal 6.2-12.0 [facility] Comment on above: Performed By: #### L 100.0100, L300.4310, L300.3900 #### [facility] [address] [place], [address] Platelets (Bld) [#/Vol] 136 10*3/uL Low 150-450 [facility] Comment on above: Performed By: #### L 100.0100, L300.4310, L300.3900 #### [facility] [address] [place], [address] RBC (Bld) [#/Vol] 4.02 10*6/uL Low 4.6-6.2 [facility] Comment on above: Performed By: #### L 100.0100, L300.4310, L300.3900 #### [facility] [address] [place], [address] RDW SD 46.1 fl High 35.1-43.9 [facility] Comment on above: Performed By: #### L 100.0100, L300.4310, L300.3900 #### [facility] [address] [place], [address] WBC (Bld) [#/Vol] 4.2 10*3/uL Low 4.4-11.0 [facility] Comment on above: Performed By: #### L 100.0100, L300.4310, L300.3900 #### [facility] [address] [place], [address] Chest Insp/Exp 2 Viewon 12-14 Chest Insp/Exp 2 View [facility] Imaging Services [address] [place] [address] Chest Insp/Exp 2 View MR#: [id number] Acct: [id number] Name: RAMÓN THOMAS Sandi Rep #: [id number] : 1955 M 69 From: Jose Alberto araiza MD PCP: Dr. Jay Easton DO Status: REG CLI Study: Chest Insp/Exp 2 View Date of Exam: 12/30/24 Exam# [id number] Ordering Dr: Jose Alberto Wing EXAM: AP inspiration expiration views. CLINICAL HISTORY: Status post right lung biopsy. COMPARISON: Prior study done earlier in the day. TECHNIQUE: AP inspiration expiration views were obtained 2 hours following the right lung biopsy. FINDINGS: No evidence of pneumothorax. The patient is asymptomatic. RAD/Chest Insp/Exp 2 View IMPRESSION: No evidence of pneumothorax on the 2 hour post right lung biopsy radiographs. Reading Location: [facility] CC: Dr. Jose Alberto Wing MD; Dr. Jay Easton DO Rn Physician Office: Signed Normal [facility] Chest Insp/Exp 2 View [facility] Imaging [facility] [address] [place] [address] Chest Insp/Exp 2 View MR#: [id number] Acct: [id number] Name: RAMÓN THOMAS Rep #: [id number] : 1955 M 69 From: Jose Alberto araiza MD PCP: Dr. Jay Easton DO Status: REG CLI Study: Chest Insp/Exp 2 View Date of Exam: 12/30/24 Exam# [id number] Ordering Dr: Jose Alberto Wing EXAM: AP inspiration expiration views. CLINICAL HISTORY: Status post biopsy of a right lower lobe lesion. COMPARISON: Prior study dated November 15, 2024. TECHNIQUE: AP inspiration expiration views were obtained. FINDINGS: No evidence of pneumothorax on the immediate post right lung biopsy radiographs. RAD/Chest Insp/Exp 2 View IMPRESSION: No pneumothorax on the immediate post right lung biopsy radiographs. The patient is asymptomatic. Reading Location: [place] [address] CC: Dr. Jose Alberto Wing MD; Dr. Jay Easton DO Rn Physician Office: Signed Normal [facility] Eosinophil percentageOrdered By: Jose Alberto Wing on 12-30-2024 Eosinophils/100 WBC (Bld) 1.7 % 0-5 [facility] Erythrocyte distribution wid th ratioOrdered By: Jose Alberto Wing on 12-30-2024 Erythrocyte distribution width (RBC) [Ratio] 13.5 % 11.6-14.6 [facility] Erythrocyte distribution wid th standard deviationOrdered By: Jose Alberto Wing on 12-30-2024 Erythrocyte distribution width (RBC) [Ratio] 46.1 fl High 35.1-43.9 [facility] Hematocrit Auto (Bld) [Volum e fraction]Ordered By: Jose Alberto Wing on 12-30-2024 Hematocrit (Bld) [Volume fraction] 37.4 % Low 40-54 [facility] Hemoglobin measurementOrdere d By: Jose Alberto Wing on 12-30-2024 Hemoglobin (Bld) [Mass/Vol] 12.4 g/dL Low 13.0-16. 5 [facility] Immature granulocytes/100 WB C Auto (Bld)Ordered By: Jose Alberto Wing on 12-30-2024 Immature granulocytes/100 WBC (Bld) 0.200 % 0.0-0.9 [facility] Comment on above: IG% - Immature Granu locytes (promyelocytes, myelocytes and metamyelocytes) > 1% indicates that a LEFT SHIFT is Present. International normalized rat io (INR) calculationOrdered By: Jose Alberto Wing on 12-30-2024 INR Coag (Bld) [Relative time] 1.2 {INR} [facility] MCV (mean corpuscular volume ) determinationOrdered By: Jose Alberto Wing on 12-30-2024 MCV (RBC) [Entitic vol] 93.0 fL 80-94 [facility] Mean corpuscular hemoglobin (MCH) determinationOrdered By: Jose Albertofredy Wing on 12-30-2024 MCH (RBC) [Entitic mass] 30.8 pg 27.0-32.0 [facility] Mean corpuscular hemoglobin concentration (MCHC) determinationOrdered By: Jose Albertofredy Wing on 12-30-2024 MCHC (RBC) [Mass/Vol] 33.2 g/dL 32-36 [facility] Mean platelet volume determi nationOrdered By: Jose Alberto Wing on 12-30-2024 Platelet mean volume (Bld) [Entitic vol] 10.9 fL 6.2-12.0 [facility] Monocyte percentageOrdered B y: Jose Alberto Wing on 12-30-2024 Monocytes/100 WBC (Bld) 11.2 % High 0-10 [facility] Neutrophil percentageOrdered By: Jose Albertofredy Wing on 12-30-2024 Neutrophils/100 WBC (Bld) 59.0 % 47-70 [facility] Nucleated red blood cell per centageOrdered By: Jose Albertofredy Wing on 12-30-2024 Nucleated RBC/100 WBC (Bld) [Ratio] 0 % 0-5 [facility] Partial Thromboplast Timeon 12-30-2024 aPTT Coag (Bld) [Time] 32.0 s Normal 24.1-36.2 [facility] Comment on above: Performed By: #### L 100.0100, L300.4310, L300.3900 #### [facility] [address] [place], [place], [id number] Platelet countOrdered By: Joesph Wing on 12-30-2024 Platelets (Bld) [#/Vol] 136 10*3/uL Low 150-450 [facility] Prothrombin Time w/INRon INR Coag (PPP) [Relative time] 1.2 {INR} Normal [facility] Comment on above: Performed By: #### L 100.0100, L300.4310, L300.3900 #### [facility] [address] [place], [place], [address] PT Coag (PPP) [Time] 15.6 s High 11.7-14.[address] [facility] Comment on above: Performed By: #### L 100.0100, L300.4310, L300.3900 #### [facility] [address] [place], [place], [address] Prothrombin timeOrdered By: Jose Alberto Wing on 12-30-2024 PT Coag (PPP) [Time] 15.6 s High 11.7-14.[address] [facility] RBC Auto (Bld) [#/Vol]Ordere d By: Jose Alberto Wing on 12-30-2024 RBC (Bld) [#/Vol] 4.02 10*6/uL Low 4.6-6.2 [facility] Special Stain Group IIon Special Stain Group II ----- ---- Patient Age/Sex Location Account Attending Physician ---- MARTHARAMÓN L 69/M CT [id number] Dr. Sukhjinder Pinto MD ---- Specimen: [id number] Received: 12/30/24 Status: CHA Reyes Num: [id number] Spec Type: ASP RAD Subm Dr: Dr. Sukhjinder Pinto MD HEADER OPERATION: CT Guided Liver/Lung Mass PRE-OP DIAGNOSIS: Right Liver/Lung Mass TISSUE SUBMITTED: Right Liver Lung Mass Biopsy Cores x6 ---- MICROSCOPIC DIAGNOSIS A. Liver/Lung, right, mass, CT-guided core biopsy: - Two cores of fibrous tissue with mild acute inflammation, abundant old blood pigment, and hemorrhagic necrosis. - Multiple cores of blood clot. - No evidence of neoplasia is seen in these sections (deeper sections examined). COMMENT The specimen is evaluated at the time of CT by Dr. White. (passes/cores 1 2 in formalin container prior to evaluation). Immediate Evaluation = #3 - Blood, Debris #4 - Blood, Debris #5 - Adequate #6 - Adequate MICROSCOPIC DESCRIPTION Slides are reviewed. GROSS DESCRIPTION A. Received in formalin labeled with the patient's name and date of . Designated as liver/lung BX is a 0.5 x 0.3 x <0.1 cm aggregate of red-brown threadlike tissue cores. Entirely submitted in 2 cassettes. [place] 12/30/2024 CPT: 75013,99149 ---- Patient Age/Sex Location Account Attending Physician ---- RAMÓN THOMAS 69/M CT [id number] Dr. Sukhjinder Pinto MD ---- Signed (signature on file) Dr. Cindy White MD 01/03/25 1054 ---- Normal [facility] Comment on above: Performed By: #### L 100.0100, L300.4310, L300.3900 #### [facility] [address] [place], [address] White blood cell (WBC) count Ordered By: Jose Alberto Wing on 12-30-2024 WBC (Bld) [#/Vol] 4.2 10*3/uL Low 4.4-11.0 [facility] Oncology Visit Reporton 11-16 Oncology Visit Report [facility] [address] [place] [address] OFFICE VISIT Date of Service: 12/13/24 1438 MR#: [id number] Acct: [id number] Name: RAMÓN THOMAS Rep #: [id number] : 1955 From: Sukhjinder Pinto MD Age/Sex: 69/M Location[facility] Status: Signed HPI Subjective Date of Service 12/13/24 Chief Complaint Anemia History of Present Illness 69-year-old male with multiple chronic medical problems including chronic back pain with sciatica, history of osteomyelitis of the left big toe treated with several months of antibiotics in early 2023, history of folic acid and B12 deficiencies, chronic atrial fibrillation, COPD, history of cardiac failure, history of hyperparathyroidism, history of nephrolithiasis, dyslipidemia, hypotension, hypothyroidism, obesity, valvular heart disease, obstructive sleep apnea, degenerative joint disease. There is also a history of an abnormal MRI appearance of L1 that was followed up with serial MRI imaging concluded to be a benign stable lesion most likely hemangioma. Patient referred in consultation in November 2023 for a normocytic anemia that did not respond to supplementation with folic acid and B12. The patient reports occasional minor rectal bleeding attributed to hemorrhoids when constipated, he had a screening colonoscopy in July 2023 showing diverticular disease, a benign polyp was removed. He was referred back in consultation November 2024 for the incidental finding of right lower lobe pleural-based lung mass when he had an MRI of the abdomen and the mass was visualized prompting a fourth CT of the chest. The patient is a never smoker. November 15, 2024 CT chest ([facility]): Soft tissue and attenuation mass in the right lower thorax appears to be pleural-based. No thoracic lymphadenopathy. [facility] Medical History Wears glasses MRSA infection Cancer Thyroid disease Walker as ambulation aid Arthritis Low iron Anemia High cholesterol Chronic cough Non-smoker History of stress test History of atrial fibrillation Cardiology follow-up encounter History of edema Hx of colonic polyps Chronic pain of toe of left foot Chronic pain BiPAP (biphasic positive airway pressure) dependence Sleep apnea Asthma Atrial fibrillation Chronic anemia CKD (chronic kidney disease), stage II Bone lesion Lumbar radiculopathy Restrictive lung disease Permanent atrial fibrillation Peripheral neuropathy Observed sleep apnea Nonrheumatic mitral valve regurgitation Lumbar facet arthropathy Lumbar degenerative disc disease Idiopathic hypertrophic subaortic stenosis Hypothyroidism Hyperlipidemia Nephrolithiasis Hyperparathyroidism Arthritis of left hip (HFpEF) heart failure with preserved ejection fraction COPD (chronic obstructive pulmonary disease) Lesion of lumbar spine Surgical History History of cardiac catheterization Hx of colonoscopy History of lung surgery History of surgery on lower extremity Hx of tonsillectomy History of transesophageal echocardiography (JAMEE) Hx of cardiovascular stress test Hx of echocardiogram Family History Father Myocardial infarction CAD (coronary artery disease) Heart disease Hypertension Mother Hypertension Diabetes Social History household members: none current occupational status: retired Smoking Status: Never smoker alcohol intake: never substance use type: does not use caffeine: Yes Type: carbonated beverages ROS Constitutional Constitutional: Denies anorexia, fever(s), night sweats or weight loss Eyes Eyes: Reports systems reviewed and no addt'l complaints, except as documented ENT HEENT: Reports systems reviewed and no addt'l complaints, except as documented; Denies mouth lesions Cardiovascular Cardiovascular: Reports systems reviewed and no addt'l complaints, except as documented and edema; Denies chest pain Respiratory/Chest Respiratory/Chest: Reports systems reviewed and no addt'l complaints, except as documented; Denies cough, dyspnea or hemoptysis Gastrointestinal Gastrointestinal: Reports systems reviewed and no addt'l complaints, except as documented and hemorrhoids; Denies change in bowel habits or hematochezia Genitourinary Genitourinary: Reports systems reviewed and no addt'l complaints, except as documented; Denies hematuria Musculoskeletal Musculoskeletal: Reports systems reviewed and no addt'l complaints, except as documented, back pain, difficulty walking and other Details: Chronic back pain with sciatica Integumentary Integumentary: Reports systems reviewed and no addt'l complaints, except as documented; Denies bleedi (more content not included)... Normal [facility] Anion gap in Serum or Plasma Ordered By: Dalton Clarke on 11-30-2024 Anion gap [Moles/Vol] 11 mmol/L 5-15 [facility] BUN/creatinine ratioOrdered By: Dalton Clarke on 11-30-2024 Urea nitrogen/Creatinine [Mass ratio] 11.5 mg/mg 10-20 [facility] Bilirubin, totalOrdered By: Dalton Clarke on 11-30-2024 Bilirubin [Mass/Vol] 1.05 mg/dL 0.00-1.[address] [facility] Carbon dioxide, total [Moles /volume] in Central venous bloodOrdered By: Dalton Clarke on 11-30-2024 CO2 [Moles/Vol] 33.0 mmol/L High 21.0-32.0 [facility] Chloride assayOrdered By: Ovidio Clarke on 11-30-2024 Chloride [Moles/Vol] 96 mmol/L Low 98-[address] [facility] Comprehensive Metabolic Prof ilon 11-30-2024 Albumin [Mass/Vol] 3.8 g/dL Normal 3.4-4.8 [facility] Comment on above: Order Comment: PT KE PT QUESTIONING MY ABILITY TO PERFORM VEINIPUNCTURE, I ASSURED THE PT I HAVE BEEN DOING THIS A LONG TIME AND AM VERY CAPABLE OF PREFORMING COLLECTION. PT KEPT MAKING COMMENTS, I STUCK PT 1X IN LEFT AC PER REQUEST OF PT AND TOOK HIM BACK OUT FOR A VOULENTEER TO WHEEL TO THE MAIN ENTRANCE-SWRIGHT Performed By: #### L 501.5200, L506.1008, L501.9579, L500.4050 #### [facility] [address] [place], [address] Albumin/Globulin [Mass ratio] 1.3 {ratio} Normal 0.9-2.4 [facility] Comment on above: Order Comment: PT KE PT QUESTIONING MY ABILITY TO PERFORM VEINIPUNCTURE, I ASSURED THE PT I HAVE BEEN DOING THIS A LONG TIME AND AM VERY CAPABLE OF PREFORMING COLLECTION. PT KEPT MAKING COMMENTS, I STUCK PT 1X IN LEFT AC PER REQUEST OF PT AND TOOK HIM BACK OUT FOR A VOULENTEER TO WHEEL TO THE MAIN ENTRANCE-SWRIGHT Performed By: #### L 501.5200, L506.1001, [id number], [id number] #### [facility] [address] [place], [address] ALK PHOS 96 U/L Normal 40-129 [facility] Comment on above: Order Comment: PT KE PT QUESTIONING MY ABILITY TO PERFORM VEINIPUNCTURE, I ASSURED THE PT I HAVE BEEN DOING THIS A LONG TIME AND AM VERY CAPABLE OF PREFORMING COLLECTION. PT KEPT MAKING COMMENTS, I STUCK PT 1X IN LEFT AC PER REQUEST OF PT AND TOOK HIM BACK OUT FOR A VOULENTEER TO WHEEL TO THE MAIN ENTRANCE-SWRIGHT Performed By: #### L [id number], L506.1001, [id number], L500.4050 #### [facility] [address] [place], [address] ALT [Catalytic activity/Vol] 12 U/L Normal <=46 [facility] Comment on above: Order Comment: PT KE PT QUESTIONING MY ABILITY TO PERFORM VEINIPUNCTURE, I ASSURED THE PT I HAVE BEEN DOING THIS A LONG TIME AND AM VERY CAPABLE OF PREFORMING COLLECTION. PT KEPT MAKING COMMENTS, I STUCK PT 1X IN LEFT AC PER REQUEST OF PT AND TOOK HIM BACK OUT FOR A VOULENTEER TO WHEEL TO THE MAIN ENTRANCE-SWRIGHT Performed By: #### L 501.5200, L506.1001, [id number], [id number] #### [facility] [address] [place], [address] AST [Catalytic activity/Vol] 21 U/L Normal <=37 [facility] Comment on above: Order Comment: PT KE PT QUESTIONING MY ABILITY TO PERFORM VEINIPUNCTURE, I ASSURED THE PT I HAVE BEEN DOING THIS A LONG TIME AND AM VERY CAPABLE OF PREFORMING COLLECTION. PT KEPT MAKING COMMENTS, I STUCK PT 1X IN LEFT AC PER REQUEST OF PT AND TOOK HIM BACK OUT FOR A VOULENTEER TO WHEEL TO THE MAIN ENTRANCE-SWRIGHT Performed By: #### L 501.5200, L506.1001, [id number], [id number] #### [facility] [address] [place], [address] Bilirubin [Mass/Vol] 1.05 mg/dL Normal 0.00-1.[address] [facility] Comment on above: Order Comment: PT KE PT QUESTIONING MY ABILITY TO PERFORM VEINIPUNCTURE, I ASSURED THE PT I HAVE BEEN DOING THIS A LONG TIME AND AM VERY CAPABLE OF PREFORMING COLLECTION. PT KEPT MAKING COMMENTS, I STUCK PT 1X IN LEFT AC PER REQUEST OF PT AND TOOK HIM BACK OUT FOR A VOULENTEER TO WHEEL TO THE MAIN ENTRANCE-SWRIGHT Performed By: #### L [id number], L506.1001, [id number], [id number] #### [facility] [address] [place], [address] BUN/CRE 11.5 RATIO Normal 10-20 [facility] Comment on above: Order Comment: PT KE PT QUESTIONING MY ABILITY TO PERFORM VEINIPUNCTURE, I ASSURED THE PT I HAVE BEEN DOING THIS A LONG TIME AND AM VERY CAPABLE OF PREFORMING COLLECTION. PT KEPT MAKING COMMENTS, I STUCK PT 1X IN LEFT AC PER REQUEST OF PT AND TOOK HIM BACK OUT FOR A VOULENTEER TO WHEEL TO THE [facility] ENTR[facility] Performed By: #### L [id number], L506.1001, [id number], [id number] #### [facility] [address] [place], [address] Calcium [Mass/Vol] 9.6 mg/dL Normal 7.6-11.0 [facility] Comment on above: Order Comment: PT KE PT QUESTIONING MY ABILITY TO PERFORM VEINIPUNCTURE, I ASSURED THE PT I HAVE BEEN DOING THIS A LONG TIME AND AM VERY CAPABLE OF PREFORMING COLLECTION. PT KEPT MAKING COMMENTS, I STUCK PT 1X IN LEFT AC PER REQUEST OF PT AND TOOK HIM BACK OUT FOR A VOULENTEER TO WHEEL TO THE MAIN ENTRANCE-SWRIGHT Performed By: #### L 501.5200, L506.1001, [id number], [id number] #### [facility] [address] [place], [address] Chloride [Moles/Vol] 96 mmol/L Low 98-[address] [facility] Comment on above: Order Comment: PT KE PT QUESTIONING MY ABILITY TO PERFORM VEINIPUNCTURE, I ASSURED THE PT I HAVE BEEN DOING THIS A LONG TIME AND AM VERY CAPABLE OF PREFORMING COLLECTION. PT KEPT MAKING COMMENTS, I STUCK PT 1X IN LEFT AC PER REQUEST OF PT AND TOOK HIM BACK OUT FOR A VOULENTEER TO WHEEL TO THE [facility] ENTR[facility] Performed By: #### L 501.5200, L506.1001, [id number], [id number] #### [facility] [address] [place], [address] CO2 [Moles/Vol] 33.0 mmol/L High 21.0-32.0 [facility] Comment on above: Order Comment: PT KE PT QUESTIONING MY ABILITY TO PERFORM VEINIPUNCTURE, I ASSURED THE PT I HAVE BEEN DOING THIS A LONG TIME AND AM VERY CAPABLE OF PREFORMING COLLECTION. PT KEPT MAKING COMMENTS, I STUCK PT 1X IN LEFT AC PER REQUEST OF PT AND TOOK HIM BACK OUT FOR A VOULENTEER TO WHEEL TO THE MAIN ENTRANCE[facility] Performed By: #### L 501.5200, L506.1001, [id number], [id number] #### [facility] [address] [place], [address] Creatinine [Mass/Vol] 1.10 mg/dL Normal 0.70-1.20 [facility] Comment on above: Order Comment: PT KE PT QUESTIONING MY ABILITY TO PERFORM VEINIPUNCTURE, I ASSURED THE PT I HAVE BEEN DOING THIS A LONG TIME AND AM VERY CAPABLE OF PREFORMING COLLECTION. PT KEPT MAKING COMMENTS, I STUCK PT 1X IN LEFT AC PER REQUEST OF PT AND TOOK HIM BACK OUT FOR A VOULENTEER TO WHEEL TO THE MAIN ENTRANCE-SWRIGHT Performed By: #### L 501.5200, L506.1001, [id number], [id number] #### [facility] [address] [place], [address] GAP 11 Normal 5-15 [facility] Comment on above: Order Comment: PT KE PT QUESTIONING MY ABILITY TO PERFORM VEINIPUNCTURE, I ASSURED THE PT I HAVE BEEN DOING THIS A LONG TIME AND AM VERY CAPABLE OF PREFORMING COLLECTION. PT KEPT MAKING COMMENTS, I STUCK PT 1X IN LEFT AC PER REQUEST OF PT AND TOOK HIM BACK OUT FOR A VOULENTEER TO WHEEL TO THE [facility] ENTRANCE[facility] Performed By: #### L [id number], L506.1001, [id number], L500.4050 #### [facility] [address] [place], [place], [address] GFR/1.73 sq M.predicted among non-blacks MDRD (S/P/Bld) [Vol rate/Area] 72 mL/min/{1.73_m2} Normal >60 [facility] Comment on above: Order Comment: PT KE PT QUESTIONING MY ABILITY TO PERFORM VEINIPUNCTURE, I ASSURED THE PT I HAVE BEEN DOING THIS A LONG TIME AND AM VERY CAPABLE OF PREFORMING COLLECTION. PT KEPT MAKING COMMENTS, I STUCK PT 1X IN LEFT AC PER REQUEST OF PT AND TOOK HIM BACK OUT FOR A VOULENTEER TO WHEEL TO THE MAIN ENTRANCE-[facility] Result Comment: mL/m in/1.73m2 CKD-EPI Creatinine Equation (2020) Performed By: #### L 501.5200, L506.1001, L501.9520, L500.4050 #### [facility] [address] [place], [address] Globulin (S) [Mass/Vol] 2.9 g/dL Normal 2.2-4.2 [facility] Comment on above: Order Comment: PT KE PT QUESTIONING MY ABILITY TO PERFORM VEINIPUNCTURE, I ASSURED THE PT I HAVE BEEN DOING THIS A LONG TIME AND AM VERY CAPABLE OF PREFORMING COLLECTION. PT KEPT MAKING COMMENTS, I STUCK PT 1X IN LEFT AC PER REQUEST OF PT AND TOOK HIM BACK OUT FOR A VOULENTEER TO WHEEL TO THE MAIN ENTRANCE-SWRIGHT Performed By: #### L 501.5200, L506.1001, L501.9520, L500.4050 #### [facility] [address] [place], [address] Glucose [Mass/Vol] 87 mg/dL Normal 70-99 [facility] Comment on above: Order Comment: PT KE PT QUESTIONING MY ABILITY TO PERFORM VEINIPUNCTURE, I ASSURED THE PT I HAVE BEEN DOING THIS A LONG TIME AND AM VERY CAPABLE OF PREFORMING COLLECTION. PT KEPT MAKING COMMENTS, I STUCK PT 1X IN LEFT AC PER REQUEST OF PT AND TOOK HIM BACK OUT FOR A VOULENTEER TO WHEEL TO THE [facility] ENTRANCE[facility] Performed By: #### L 501.5200, L506.1001, L501.9520, L500.4050 #### [facility] [address] [place], [address] Potassium [Moles/Vol] 3.1 mmol/L Low 3.3-5.1 [facility] Comment on above: Order Comment: PT KE PT QUESTIONING MY ABILITY TO PERFORM VEINIPUNCTURE, I ASSURED THE PT I HAVE BEEN DOING THIS A LONG TIME AND AM VERY CAPABLE OF PREFORMING COLLECTION. PT KEPT MAKING COMMENTS, I STUCK PT 1X IN LEFT AC PER REQUEST OF PT AND TOOK HIM BACK OUT FOR A VOULENTEER TO WHEEL TO THE MAIN ENTRANCE-SWRIGHT Performed By: #### L 501.5200, L506.1001, L501.9520, L500.4050 #### [facility] [address] [place], [address] Sodium [Moles/Vol] 140 mmol/L Normal 133-145 [facility] Comment on above: Order Comment: PT KE PT QUESTIONING MY ABILITY TO PERFORM VEINIPUNCTURE, I ASSURED THE PT I HAVE BEEN DOING THIS A LONG TIME AND AM VERY CAPABLE OF PREFORMING COLLECTION. PT KEPT MAKING COMMENTS, I STUCK PT 1X IN LEFT AC PER REQUEST OF PT AND TOOK HIM BACK OUT FOR A VOULENTEER TO WHEEL TO THE MAIN ENTRANCE-SWRIGHT Performed By: #### L 501.5200, L506.1001, L501.9520, L500.4050 #### [facility] [address] [place], [address] T PROT 6.7 g/dL Normal 5.9-8.4 [facility] Comment on above: Order Comment: PT KE PT QUESTIONING MY ABILITY TO PERFORM VEINIPUNCTURE, I ASSURED THE PT I HAVE BEEN DOING THIS A LONG TIME AND AM VERY CAPABLE OF PREFORMING COLLECTION. PT KEPT MAKING COMMENTS, I STUCK PT 1X IN LEFT AC PER REQUEST OF PT AND TOOK HIM BACK OUT FOR A VOULENTEER TO WHEEL TO THE MAIN ENTRANCE-SWRIGHT Performed By: #### L 501.5200, L506.1001, L501.9520, L500.4050 #### [facility] [address] [place], [address] Urea nitrogen [Mass/Vol] 13 mg/dL Normal 4-19 [facility] Comment on above: Order Comment: PT KE PT QUESTIONING MY ABILITY TO PERFORM VEINIPUNCTURE, I ASSURED THE PT I HAVE BEEN DOING THIS A LONG TIME AND AM VERY CAPABLE OF PREFORMING COLLECTION. PT KEPT MAKING COMMENTS, I STUCK PT 1X IN LEFT AC PER REQUEST OF PT AND TOOK HIM BACK OUT FOR A VOULENTEER TO WHEEL TO THE MAIN ENTRANCE-SWRIGHT Performed By: #### L 501.5200, L506.1001, L501.9520, L500.4050 #### [facility] [address] [place], [address] Glomerular filtration rate ( GFR) estimation/1.73 sq m using serum, plasma, or whole bOrdered By: Dalton Clarke on 11-30-2024 GFR/1.73 sq M.predicted among non-blacks MDRD (S/P/Bld) [Vol rate/Area] 72 mL/min/{1.73_m2} >60 [facility] Comment on above: mL/min/1.73m2 CKD-EP I Creatinine Equation (2020) Laboratory - Chemistry and C hemistry - challengeOrdered By: Dalton Clarke on 11-30-2024 AST [Catalytic activity/Vol] 21 U/L <38 [facility] Magnesiumon 11-30-2024 Magnesium [Mass/Vol] 2.1 mg/dL Normal 1.5-2.[address] [facility] Comment on above: Order Comment: PT KE PT QUESTIONING MY ABILITY TO PERFORM VEINIPUNCTURE, I ASSURED THE PT I HAVE BEEN DOING THIS A LONG TIME AND AM VERY CAPABLE OF PREFORMING COLLECTION. PT KEPT MAKING COMMENTS, I STUCK PT 1X IN LEFT AC PER REQUEST OF PT AND TOOK HIM BACK OUT FOR A VOULENTEER TO WHEEL TO THE MAIN ENTRANCE-SWRIGHT Performed By: #### L 501.5200, L506.1001, L501.9520, L500.4050 #### [facility] [address] [place], [address] Magnesium measurement (mass/ volume)Ordered By: Dalton Clarke on 11-30-2024 Magnesium (Unsp spec) [Mass/Vol] 2.1 mg/dL 1.5-2.2 [facility] Potassium measurement (mass/ volume)Ordered By: Dalton Clarke on 11-30-2024 Potassium (Unsp spec) [Mass/Vol] 3.1 mmol/L Low 3.3-5.1 [facility] Serum creatinine measurement (mass/volume)Ordered By: Dalton Clarke on 11-30-2024 Creatinine [Mass/Vol] 1.10 mg/dL 0.70-1.20 [facility] Serum globulin measurementOr dered By: Dalton Clarke on 11-30-2024 Globulin (S) [Mass/Vol] 2.9 g/dL 2.2-4.2 [facility] Serum glucose measurement (m ass/volume)Ordered By: Dalton Clarke on 11-30-2024 Glucose [Mass/Vol] 87 mg/dL 70-99 [facility] Serum or plasma alanine bland otransferase (ALT) measurementOrdered By: Dalton Clarke on 11-30-2024 ALT [Catalytic activity/Vol] 12 U/L <47 [facility] Serum or plasma albumin gilma urement (mass/volume)Ordered By: Dalton Clarke on 11-30-2024 Albumin [Mass/Vol] 3.8 g/dL 3.4-4.8 [facility] Serum or plasma albumin/glob ulin mass ratioOrdered By: Dalton Clarke on 11-30-2024 Albumin/Globulin [Mass ratio] 1.3 {ratio} 0.9-2.4 [facility] Serum or plasma alkaline misha sphatase measurementOrdered By: Daltonrenetta Clarke on 11-30-2024 ALP [Catalytic activity/Vol] 96 U/L 40-129 [facility] Serum or plasma calcium gilma urement (mass/volume)Ordered By: Dalton Clarke on 11-30-2024 Calcium [Mass/Vol] 9.6 mg/dL 7.6-11.0 [facility] Serum or plasma urea nitroge n measurement (mass/volume)Ordered By: Dalton Clarke on 11-30-2024 Urea nitrogen [Mass/Vol] 13 mg/dL 4-19 [facility] Sodium levelOrdered By: Deo Clarke on 11-30-2024 Sodium [Moles/Vol] 140 mmol/L 133-145 [facility] TSH DL <= 0.005 mIU/L QnOrde red By: Dalton Clarke on 11-30-2024 TSH Qn 1.350 uIU/mL 0.300-4.20 0 [facility] Thyroid Stim Hormone (TSH)on 11-30-2024 TSH 1.350 uIU/mL Normal 0.300-4.20 0 [facility] Comment on above: Order Comment: PT KE PT QUESTIONING MY ABILITY TO PERFORM VEINIPUNCTURE, I ASSURED THE PT I HAVE BEEN DOING THIS A LONG TIME AND AM VERY CAPABLE OF PREFORMING COLLECTION. PT KEPT MAKING COMMENTS, I STUCK PT 1X IN LEFT AC PER REQUEST OF PT AND TOOK HIM BACK OUT FOR A VOULENTEER TO WHEEL TO THE MAIN ENTRANCE-SWRIGHT Performed By: #### L 501.5200, L506.1001, L501.9520, L500.7960 #### [facility] [address] [place], [place], [address] Total proteinOrdered By: Devonte Clarke on 11-30-2024 Protein [Mass/Vol] 6.7 g/dL 5.9-8.4 [facility] Vitamin D,25 Hydroxyon 11-30 Vitamin D 25-OH 38.2 ng/mL Normal 30-100 [facility] Comment on above: Order Comment: PT KE PT QUESTIONING MY ABILITY TO PERFORM VEINIPUNCTURE, I ASSURED THE PT I HAVE BEEN DOING THIS A LONG TIME AND AM VERY CAPABLE OF PREFORMING COLLECTION. PT KEPT MAKING COMMENTS, I STUCK PT 1X IN LEFT AC PER REQUEST OF PT AND TOOK HIM BACK OUT FOR A VOULENTEER TO WHEEL TO THE MAIN ENTRANCE-SWRIGHT Result Comment: Diana min D Status Deficiency: <20 ng/mL (50nmol/L) Insufficiency: 20-30 ng/mL (50-75 nmol/L) Sufficiency: 30-100 ng/mL (75-250 nmol/L) Toxicity: >100 ng/mL (>250 nmol/L) Performed By: #### L 501.5200, L506.1001, L501.9520, L500.4050 #### [facility] [address] [place], [place], [address] CT THORAX W/ CONTRASTon 06-0 CT THORAX W/ CONTRAST ORIGINAL EXAMINATION: CT CHEST WITH CONTRAST 11/15/2024 2:48 pm HISTORY: ORDERING SYSTEM PROVIDED HISTORY: Reason for Exam: right lower lobe mass seen on MRI liver pt denies any chest complaints,f/u abn mri TECHNIQUE Multiple-row detector helical CT examination of the thorax with IV contrast. Axial, sagittal, and coronal reconstructed images. This exam was performed according to the departmental dose-optimization program which includes automated exposure control, adjustment of the mA and/or kV according to patient size and/or use of iterative reconstruction technique. COMPARISON None FINDINGS The heart is normal in size. Moderate coronary artery calcifications seen. No pericardial effusion. The great vessels are normal in caliber. No lymphadenopathy identified. A soft tissue mass is seen along the right major fissure near the level of the diaphragm, measuring at least 4.3 cm in the long axis. The lesion is smoothly marginated. There is no pneumothorax or pleural fluid. No endotracheal or endobronchial lesions seen. No aggressive osseous lesions identified. Multilevel degenerative changes identified in the spine. Chronic left rib deformities. A cyst projecting off of the anteromedial right kidney is 24 Hounsfield units, previously evaluated with. There is a complex hyperattenuating lesion projecting off the posterior and lateral left kidney measuring 98 Hounsfield units likely a hemorrhagic cyst correlate with prior high. IMPRESSION Soft tissue attenuation mass in the lower right thorax appears to be pleural based. This lesion has a broad differential diagnosis including a fibrous tumor pleura. Other neoplasms associated with the pleura or the adjacent right lower lobe could appear similar. Consider tissue sampling or PET-CT for further evaluation No thoracic lymphadenopathy Atherosclerosis with coronary artery calcifications. Cardiomegaly The findings were sent to the Radiology Results Communication Center at 2:02 pm on 11/17/2024 to be communicated to a licensed caregiver. Interpreted by: Denny Dyer MD Preliminary Report By: Denny Dyer MD Electronically signed By Denny Dyer MD Dictated Date: 11/17/2024 1:54:28 PM Prelim Date: 11/17/2024 2:04:55 PM Sign Date: 11/17/2024 2:04:55 PM Ordering Provider: EDWIN Richardson [facility] LIVER 11-01-2024 MRI LIVER ORIGINAL EXAMINATION: MRI OF THE ABDOMEN LIMITED WITH CONTRAST, 11/01/2024 11:32 am TECHNIQUE: Multiplanar multisequence MRI of the abdomen limited was performed with the administration of intravenous contrast. COMPARISON: 05/10/2024 HISTORY: ORDERING SYSTEM PROVIDED HISTORY: Reason for Exam: liver mass ?hemangioma, rule out malignancy, fatty liver FINDINGS: The liver demonstrates prominent dropout of signal on chemical shift imaging compatible with hepatic steatosis. There is mild nodularity of the hepatic capsule suggesting cirrhosis. The spleen is normal in size. A few scattered hepatic lesions within the posterior right hepatic lobe appears stable demonstrating peripheral nodular enhancement with incomplete fill-in and are favored to represent hemangiomas. Stable anterior left hepatic lobe serpiginous enhancing abnormality with connection to the medial ranch of the left portal vein and middle hepatic vein. There may be an additional similar lesion seen at the inferior aspect of the right hepatic lobe (10:48), similar to prior. Subcentimeter scattered cysts are also noted. No new suspicious hepatic lesion is identified. The portal vein, splenic vein, and SMV appears patent. Stable right 0.9 cm adrenal adenoma. Bilateral renal cysts including a few hemorrhagic/proteinace ous cyst appears similar to prior. Additional stable left 3.2 cm left renal cyst with layering hypointensity similar to prior. Elevation of left hemidiaphragm. Cardiomegaly noted. Small right pleural effusion. There is a new diffusion restricting heterogeneous T2 hyperintense 5.3 cm right lower lobe masslike intensity (1:17). No additional contributory abnormality. IMPRESSION: Cirrhotic liver with mild underlying hepatic steatosis. Stable benign-appearing hepatic lesions including left hepatic lobe intrahepatic portal to hepatic venous shunts. No suspicious hepatic lesion. New 5.3 cm right lower lobe mass highly suspicious for neoplasm. Small right pleural effusion. Further evaluation with dedicated CT chest with IV contrast is recommended. I have personally reviewed the images of this examination and agree with the resident's findings and interpretations. Interpreted by: Erick Pride MD Preliminary Report By: Loli Rico Electronically signed By Erick Pride MD Dictated Date: 11/01/2024 1:14:32 PM Prelim Date: 11/01/2024 1:51:01 PM Sign Date: 11/01/2024 1:51:01 PM Ordering Provider: JAY Richardson [facility] .Auto Diffon 10-19-2024 Basophil, Absolute 0.0 10 3/mcL Normal 0.0-0.3 [facility] Comment on above: Performed By: #### A DIFF, ANEU, CBC #### [address] [address] Basophils/100 WBC (Bld) 0.2 % Normal 0.0-2.5 [facility] Comment on above: Performed By: #### A DIFF, ANEU, CBC #### [address] [address] Eosinophil, Absolute 0.0 10 3/mcL Normal 0.0-0.7 [facility] Comment on above: Performed By: #### A DIFF, ANEU, CBC #### [address] [place] [address] Eosinophils/100 WBC (Bld) 0.0 % Normal 0.0-6.0 [facility] Comment on above: Performed By: #### A DIFF, ANEU, CBC #### [address] [address] Lymphocyte, Absolute 0.8 10 3/mcL Low 0.9-4.3 [facility] Comment on above: Performed By: #### A DIFF, ANEU, CBC #### [address] [address] Lymphocytes/100 WBC (Bld) 10.7 % Low 20.0-40.0 [facility] Comment on above: Performed By: #### A DIFF, ANEU, CBC #### [address] [address] Monocyte, Absolute 0.8 10 3/mcL Normal 0.1-1.4 [facility] Comment on above: Performed By: #### A DIFF, ANEU, CBC #### [address] [address] Monocytes/100 WBC (Bld) 11.2 % Normal 2.0-13.0 [facility] Comment on above: Performed By: #### A DIFF, ANEU, CBC #### [address] [address] Neutrophils/100 WBC (Bld) 77.9 % High 50.0-75.0 [facility] Comment on above: Performed By: #### A DIFF, ANEU, CBC #### [address] [address] .GFRon 10-19-2024 Estimated Glomerular Filtration Rate 89 ml/min/1.73sqm Normal [facility] Comment on above: Result Comment: Stages of Chronic Kidney Disease (CKD) Stage Description eGFR(ml/min/1.73 sq.m.) CKD 1 Normal kidney function or >=90 normal kindney function with possible kidney damage (ex. Proteinuria) CKD 2 Kidney damage with mild loss 60-89 of kidney function CKD 3a Mild to moderate loss of kidney 45-59 function CKD 3b Moderate to severe loss of 30-44 of kindey function CKD 4 Severe loss of kidney function 15-29 CKD 5 Kidney failure <15 Note: (go live 2024) the eGFR calculation was updated to the 2020 CKD-EPI creatinine equation without a race factor to calculate the eGFR results. Performed By: #### A DIFF, ANEU, CBC #### [place] [id number] .NEUABSon 10-19-2024 Neutrophil, Absolute 5.9 10 3/mcL Normal 2.3-8.1 [facility] Comment on above: Performed By: #### A DIFF, ANEU, CBC #### [place] [address] CBCon 10-19-2024 Erythrocyte distribution width (RBC) [Ratio] 14.9 % Normal 11.5-15.5 [facility] Comment on above: Performed By: #### A DIFF, ANEU, CBC #### [place] [address] Hematocrit (Bld) [Volume fraction] 38.3 % Low 40.0-52.0 [facility] Comment on above: Performed By: #### A DIFF, ANEU, CBC #### [place] [address] Hgb 12.7 G/dL Low 13.0-17.5 [facility] Comment on above: Performed By: #### A DIFF, ANEU, CBC #### [place] [address] MCH (RBC) [Entitic mass] 31.2 pg Normal 27.0-33.0 [facility] Comment on above: Performed By: #### A DIFF, ANEU, CBC #### [place] [address] MCHC 33.2 G/dL Normal 32.0-36.0 [facility] Comment on above: Performed By: #### A DIFF, ANEU, CBC #### [place] [address] MCV (RBC) [Entitic vol] 94.1 fL Normal 81.0-100.0 [facility] Comment on above: Performed By: #### A DIFF, ANEU, CBC #### [address] [address] Platelet 102 10 3/mcL Low 150-450 [facility] Comment on above: Performed By: #### A DIFF, ANEU, CBC #### [address] [address] Platelet mean volume (Bld) [Entitic vol] 11.1 fL High 6.4-10.5 [facility] Comment on above: Performed By: #### A DIFF, ANEU, CBC #### [address] [address] RBC 4.07 10 6/mcL Low 4.50-6.00 [facility] Comment on above: Performed By: #### A DIFF, ANEU, CBC #### [address] [address] WBC 7.6 10 3/mcL Normal 4.5-10.8 [facility] Comment on above: Performed By: #### A DIFF, ANEU, CBC #### [address] [address] CMPon 10-19-2024 Albumin Level 3.3 G/dL Low 3.4-4.8 [facility] Comment on above: Performed By: #### A DIFF, ANEU, CBC #### [address] [address] Albumin/Globulin [Mass ratio] 1.0 {ratio} Low 1.1-2.5 [facility] Comment on above: Performed By: #### A DIFF, ANEU, CBC #### [address] [address] ALP [Catalytic activity/Vol] 88 U/L Normal 40-135 [facility] Comment on above: Performed By: #### A DIFF, ANEU, CBC #### [address] [address] ALT [Catalytic activity/Vol] 18 U/L Normal 16-63 [facility] Comment on above: Performed By: #### A DIFF, ANEU, CBC #### [address] [address] AST [Catalytic activity/Vol] 17 U/L Normal 10-40 [facility] Comment on above: Performed By: #### A DIFF, ANEU, CBC #### [address] [address] Bili Total 1.6 mg/dL High 0.2-1.0 [facility] Comment on above: Result Comment: Use of this assay is not recommended for patients undergoing treatment with eltrombopag due to the potential for falsely elevated results. Performed By: #### A DIFF, ANEU, CBC #### [address] [address] BUN/Creatinine Ratio 16 ratio Normal 7-27 [facility] Comment on above: Performed By: #### A DIFF, ANEU, CBC #### [address] [address] Calcium [Mass/Vol] 9.9 mg/dL Normal 8.4-10.2 [facility] Comment on above: Performed By: #### A DIFF, ANEU, CBC #### [address] [address] Chloride [Moles/Vol] 105 mmol/L Normal 98-107 [facility] Comment on above: Performed By: #### A DIFF, ANEU, CBC #### [address] [address] CO2 [Moles/Vol] 33 mmol/L High 23-31 [facility] Comment on above: Performed By: #### A DIFF, ANEU, CBC #### [address] [address] Creatinine [Mass/Vol] 0.92 mg/dL Normal 0.67-1.17 [facility] Comment on above: Performed By: #### A DIFF, ANEU, CBC #### [address] [address] Electrolyte Balance 4.0 mEq/L Normal 4.0-15.[address] [facility] Comment on above: Performed By: #### A DIFF, ANEU, CBC #### [address] [address] Globulin 3.4 G/dL Normal 2.7-4.4 [facility] Comment on above: Performed By: #### A DIFF, ANEU, CBC #### [address] [address] Glucose [Mass/Vol] 85 mg/dL Normal 83-110 [facility] Comment on above: Performed By: #### A DIFF, ANEU, CBC #### [address] [address] Potassium [Moles/Vol] 4.2 mmol/L Normal 3.5-5.1 [facility] Comment on above: Performed By: #### A DIFF, ANEU, CBC #### [address] [address] Sodium [Moles/Vol] 142 mmol/L Normal 136-145 [facility] Comment on above: Performed By: #### A DIFF, ANEU, CBC #### [address] [address] Total Protein 6.7 G/dL Normal 6.4-8.2 [facility] Comment on above: Performed By: #### A DIFF, ANEU, CBC #### [address] [address] Urea nitrogen [Mass/Vol] 15 mg/dL Normal 7-18 [facility] Comment on above: Performed By: #### A DIFF, ANEU, CBC #### [address] [address] LABORATORYOrdered By: SYSTEM SYSTEM on 10-19-2024 Albumin BCP dye [Mass/Vol] 3.3 G/dL Low 3 .4 - 4.8 G/dL AO ADM SS Albumin/Globulin [Mass ratio] 1.0 {ratio} Low 1.1 - 2.5 ratio AO ADM SS ALP [Catalytic activity/Vol] 88 U/L Normal 40 - 135 U/L AO ADM SS ALT With P-5'-P [Catalytic activity/Vol] 18 U/L Normal 16 - 63 U/L AO ADM SS AST With P-5'-P [Catalytic activity/Vol] 17 U/L Normal 10 - 40 U/L AO ADM SS Basophils (Bld) [#/Vol] 0.0 103/mcL Normal 0.0 - 0.3 10^3/mcL AO Workflow SS Basophils/100 WBC (Bld) 0.2 % Normal 0.0 - 2.5 % AO Workflow SS Bilirubin [Mass/Vol] 1.6 mg/dL High 0.2 - 1 .0 mg/dL AO ADM SS Comment on above: Interpretive Data: U se of this assay is not recommended for patients undergoing treatment with eltrombopag due to the potential for falsely elevated results. Calcium [Mass/Vol] 9.9 mg/dL Normal 8.4 - 10. 2 mg/dL AO ADM SS Chloride [Moles/Vol] 105 mmol/L Normal 98 - 10 7 mmol/L AO ADM SS CO2 [Moles/Vol] 33 mmol/L High 23 - 31 mmol/L AO ADM SS Creatinine [Mass/Vol] 0.92 mg/dL Normal 0.67 - 1.17 mg/dL AO ADM SS Electrolyte Balance 4.0 mEq/L Normal 4.0 - 15 .0 mEq/L AO ADM SS Eosinophil, Absolute 0.0 103/mcL Normal 0.0 - 0 .7 10^3/mcL AO Workflow SS Eosinophils/100 WBC (Bld) 0.0 % Normal 0. 0 - 6.0 % AO Workflow SS Erythrocyte distribution width (RBC) [Ratio] 14.9 % Normal 11.5 - 15.5 % AO Workflow SS Estimated Glomerular Filtration Rate 89 ml/min/1.73sqm Invalid Interpretation Code [facility] Comment on above: Interpretive Data: Stages of Chronic Kidney Disease (CKD) Stage Description eGFR(ml/min/1.73 sq.m.) CKD 1 Normal kidney function or >=90 normal kindney function with possible kidney damage (ex. Proteinuria) CKD 2 Kidney damage with mild loss 60-89 of kidney function CKD 3a Mild to moderate loss of kidney 45-59 function CKD 3b Moderate to severe loss of 30-44 of kindey function CKD 4 Severe loss of kidney function 15-29 CKD 5 Kidney failure <15 Note: (go live 2024) the eGFR calculation was updated to the 2020 CKD-EPI creatinine equation without a race factor to calculate the eGFR results. Globulin 3.4 G/dL Normal 2.7 - 4.4 G/dL AO ADM SS Glucose [Mass/Vol] 85 mg/dL Normal 83 - 110 mg/dL AO ADM SS Hematocrit (Bld) [Volume fraction] 38.3 % Low 40.0 - 52.0 % AO Workflow SS Hemoglobin (Bld) [Mass/Vol] 12.7 G/dL Low 13.0 - 17.5 G/dL AO Workflow SS Lymphocytes (Bld) [#/Vol] 0.8 103/mcL Low 0. 9 - 4.3 10^3/mcL AO Workflow SS Lymphocytes/100 WBC (Bld) 10.7 % Low 20 .0 - 40.0 % AO Workflow SS Magnesium [Mass/Vol] 2.0 mg/dL Normal 1.8 - 2 .4 mg/dL AO ADM SS MCH (RBC) [Entitic mass] 31.2 pg Normal 27. 0 - 33.0 pg AO Workflow SS MCHC 33.2 G/dL Normal 32.0 - 36.0 G/dL AO Workflow SS MCV (RBC) [Entitic vol] 94.1 fL Normal 81.0 - 100.0 fL AO Workflow SS Monocytes (Bld) [#/Vol] 0.8 103/mcL Normal 0.1 - 1.4 10^3/mcL AO Workflow SS Monocytes/100 WBC (Bld) 11.2 % Normal 2.0 - 13.0 % AO Workflow SS Natriuretic peptide.B prohormone N-Terminal [Mass/Vol] 2674 pg/mL High 0 - 125 pg/mL AO ADM SS Comment on above: Interpretive Data: N T-proBNP results of less than 300 pg/mL effectively rules out acute congestive heart failure with 99% negative predictive value. Neutrophils (Bld) [#/Vol] 5.9 103/mcL Normal 2. 3 - 8.1 10^3/mcL AO Workflow SS Neutrophils/100 WBC (Bld) 77.9 % High 50 .0 - 75.0 % AO Workflow SS Platelet mean volume (Bld) [Entitic vol] 11.1 fL High 6.4 - 10.5 fL AO Workflow SS Platelets (Bld) [#/Vol] 102 103/mcL Low 150 - 450 10^3/mcL AO Workflow SS Potassium [Moles/Vol] 4.2 mmol/L Normal 3.5 - 5.1 mmol/L AO ADM SS Protein [Mass/Vol] 6.7 G/dL Normal 6.4 - 8.2 G/dL AO ADM SS RBC (Bld) [#/Vol] 4.07 106/mcL Low 4.50 - 6.00 10^6/mcL AO Workflow SS Sodium [Moles/Vol] 142 mmol/L Normal 136 - 145 mmol/L AO ADM SS Urea nitrogen [Mass/Vol] 15 mg/dL Normal 7 - 18 mg/dL AO ADM SS Urea nitrogen/Creatinine [Mass ratio] 16 ratio Normal 7 - 27 ratio AO ADM SS WBC (Bld) [#/Vol] 7.6 103/mcL Normal 4.5 - 10.8 10^3/mcL AO Workflow SS MGon 10-19-2024 Magnesium [Mass/Vol] 2.0 mg/dL Normal 1.8-2.4 [facility] Comment on above: Performed By: #### A DIFF, ANEU, CBC #### [address] [address] PBNPon 10-19-2024 Natriuretic peptide B (Bld) [Mass/Vol] 2674 pg/mL High 0-125 [facility] Comment on above: Result Comment: NT-p roBNP results of less than 300 pg/mL effectively rules out acute congestive heart failure with 99% negative predictive value. Performed By: #### A DIFF, ANEU, CBC #### [address] [address] HCVon 09-02-2024 Hep C Ab Non-Reactive Normal Non-Reacti ve [facility] Comment on above: Performed By: #### A DIFF, ANEU, CBC #### [address] [address] Hep C Ab Int Normal [facility] Comment on above: Result Comment: Nonr eactive: Samples with a value < 0.80 are considered nonreactive (negative) for antibodies to HCV. A negative test result does not exclude the possibility of exposure to or infection with HCV. HCV antibodies may be undetectable in some stages of the infection and in some clinical conditions. See Interp Performed By: #### A DIFF, ANEU, CBC #### [address] [address] .Auto Diffon 09-01-2024 Basophil, Absolute 0.1 10 3/mcL Normal 0.0-0.2 [facility] Comment on above: Performed By: #### A DIFF, ANEU, CBC #### [address] [address] Basophils/100 WBC (Bld) 0.9 % Normal 0.0-2.5 [facility] Comment on above: Performed By: #### A DIFF, ANEU, CBC #### [address] [address] Eosinophil, Absolute 0.0 10 3/mcL Normal 0.0-0.7 [facility] Comment on above: Performed By: #### A DIFF, ANEU, CBC #### [address] [address] Eosinophils/100 WBC (Bld) 0.2 % Normal 0.0-7.0 [facility] Comment on above: Performed By: #### A DIFF, ANEU, CBC #### [address] [address] Lymphocyte, Absolute 1.0 10 3/mcL Normal 0.9-4.3 [facility] Comment on above: Performed By: #### A DIFF, ANEU, CBC #### [address] [address] Lymphocytes/100 WBC (Bld) 14.0 % Low 20.0-40.0 [facility] Comment on above: Performed By: #### A DIFF, ANEU, CBC #### [address] [address] Monocyte, Absolute 0.6 10 3/mcL Normal 0.1-1.4 [facility] Comment on above: Performed By: #### A DIFF, ANEU, CBC #### [address] [address] Monocytes/100 WBC (Bld) 9.4 % Normal 2.0-13.0 [facility] Comment on above: Performed By: #### A DIFF, ANEU, CBC #### [place] [address] [place], [place] [address] Neutrophils/100 WBC (Bld) 75.5 % High 50.0-75.0 [facility] Comment on above: Performed By: #### A DIFF, ANEU, CBC #### [address] [address] .GFRon 09-01-2024 Estimated Glomerular Filtration Rate 81 ml/min/1.73sqm Normal [facility] Comment on above: Result Comment: Stages of Chronic Kidney Disease (CKD) Stage Description eGFR(ml/min/1.73 sq.m.) CKD 1 Normal kidney function or >=90 normal kindney function with possible kidney damage (ex. Proteinuria) CKD 2 Kidney damage with mild loss 60-89 of kidney function CKD 3a Mild to moderate loss of kidney 45-59 function CKD 3b Moderate to severe loss of 30-44 of kindey function CKD 4 Severe loss of kidney function 15-29 CKD 5 Kidney failure <15 Note: (go live 2024) the eGFR calculation was updated to the 2020 CKD-EPI creatinine equation without a race factor to calculate the eGFR results. Performed By: #### H CV1 #### [place] [address] #### MG, CMP, PSA, GFR, ADIFF, PBNP, CBC, LIPID, ANEU #### [place] [address] [place], [place] [address] .NEUABSon 09-01-2024 Neutrophil, Absolute 5.1 10 3/mcL Normal 2.3-8.1 [facility] Comment on above: Performed By: #### A DIFF, ANEU, CBC #### [place] [address] [place], [place] [address] CBCon 09-01-2024 Erythrocyte distribution width (RBC) [Ratio] 14.6 % Normal 11.5-15.5 [facility] Comment on above: Performed By: #### A DIFF, ANEU, CBC #### [address] [address] Hematocrit (Bld) [Volume fraction] 36.9 % Low 40.0-52.0 [facility] Comment on above: Performed By: #### A DIFF, ANEU, CBC #### [address] [address] Hgb 12.4 G/dL Low 13.0-17.5 [facility] Comment on above: Performed By: #### A DIFF, ANEU, CBC #### [address] [address] MCH (RBC) [Entitic mass] 31.2 pg Normal 27.0-33.0 [facility] Comment on above: Performed By: #### A DIFF, ANEU, CBC #### [place] [address] MCHC 33.7 G/dL Normal 32.0-36.0 [facility] Comment on above: Performed By: #### A DIFF, ANEU, CBC #### [address] [address] MCV (RBC) [Entitic vol] 92.5 fL Normal 81.0-100.0 [facility] Comment on above: Performed By: #### A DIFF, ANEU, CBC #### [address] [address] Platelet 114 10 3/mcL Low 150-450 [facility] Comment on above: Performed By: #### A DIFF, ANEU, CBC #### [address] [address] Platelet mean volume (Bld) [Entitic vol] 10.7 fL High 6.4-10.5 [facility] Comment on above: Performed By: #### A DIFF, ANEU, CBC #### [address] [address] RBC 3.99 10 6/mcL Low 4.50-6.00 [facility] Comment on above: Performed By: #### A DIFF, ANEU, CBC #### [address] [address] WBC 6.8 10 3/mcL Normal 4.5-10.8 [facility] Comment on above: Performed By: #### A DIFF, ANEU, CBC #### [address] [address] CMPon 09-01-2024 Albumin Level 3.5 G/dL Normal 3.4-4.8 [facility] Comment on above: Performed By: #### H CV1 #### [place] [address] #### MG, CMP, PSA, GFR, ADIFF, PBNP, CBC, LIPID, ANEU #### [address] [address] Albumin/Globulin [Mass ratio] 1.1 {ratio} Normal 1.1-2.5 [facility] Comment on above: Performed By: #### H CV1 #### [place] [address] #### MG, CMP, PSA, GFR, ADIFF, PBNP, CBC, LIPID, ANEU #### [address] [address] ALP [Catalytic activity/Vol] 98 U/L Normal 40-135 [facility] Comment on above: Performed By: #### H CV1 #### [place] [address] #### MG, CMP, PSA, GFR, ADIFF, PBNP, CBC, LIPID, ANEU #### [address] [address] ALT [Catalytic activity/Vol] 11 U/L Low 16-63 [facility] Comment on above: Performed By: #### H CV1 #### [place] [address] #### MG, CMP, PSA, GFR, ADIFF, PBNP, CBC, LIPID, ANEU #### [address] [address] AST [Catalytic activity/Vol] 16 U/L Normal 10-40 [facility] Comment on above: Performed By: #### H CV1 #### [place] [address] #### MG, CMP, PSA, GFR, ADIFF, PBNP, CBC, LIPID, ANEU #### [address] [address] Bili Total 2.0 mg/dL High 0.2-1.0 [facility] Comment on above: Result Comment: Use of this assay is not recommended for patients undergoing treatment with eltrombopag due to the potential for falsely elevated results. Performed By: #### H CV1 #### [place] [address] #### MG, CMP, PSA, GFR, ADIFF, PBNP, CBC, LIPID, ANEU #### [address] [address] BUN/Creatinine Ratio 15 ratio Normal 7-27 [facility] Comment on above: Performed By: #### H CV1 #### [place] [address] #### MG, CMP, PSA, GFR, ADIFF, PBNP, CBC, LIPID, ANEU #### [address] [address] Calcium [Mass/Vol] 9.2 mg/dL Normal 8.4-10.2 [facility] Comment on above: Performed By: #### H CV1 #### [place] [address] #### MG, CMP, PSA, GFR, ADIFF, PBNP, CBC, LIPID, ANEU #### [address] [address] Chloride [Moles/Vol] 105 mmol/L Normal 98-107 [facility] Comment on above: Performed By: #### H CV1 #### [place] [address] #### MG, CMP, PSA, GFR, ADIFF, PBNP, CBC, LIPID, ANEU #### [address] [address] CO2 [Moles/Vol] 29 mmol/L Normal 23-31 [facility] Comment on above: Performed By: #### H CV1 #### [place] [address] #### MG, CMP, PSA, GFR, ADIFF, PBNP, CBC, LIPID, ANEU #### [address] [address] Creatinine [Mass/Vol] 1.00 mg/dL Normal 0.70-1.30 [facility] Comment on above: Result Comment: Test ing performed on Siemens Dimension EXL analyzer using a modified kinetic Daniel technique. Performed By: #### H CV1 #### [place] [address] #### MG, CMP, PSA, GFR, ADIFF, PBNP, CBC, LIPID, ANEU #### [address] [address] Electrolyte Balance 8.0 mEq/L Normal 4.0-15.[address] [facility] Comment on above: Performed By: #### H CV1 #### [place] [address] #### MG, CMP, PSA, GFR, ADIFF, PBNP, CBC, LIPID, ANEU #### [address] [address] Globulin 3.1 G/dL Normal 1.5-3.8 [facility] Comment on above: Performed By: #### H CV1 #### [place] [address] #### MG, CMP, PSA, GFR, ADIFF, PBNP, CBC, LIPID, ANEU #### [address] [address] Glucose [Mass/Vol] 83 mg/dL Normal 83-110 [facility] Comment on above: Performed By: #### H CV1 #### [place] [address] #### MG, CMP, PSA, GFR, ADIFF, PBNP, CBC, LIPID, ANEU #### [address] [address] Potassium [Moles/Vol] 4.0 mmol/L Normal 3.5-5.1 [facility] Comment on above: Performed By: #### H CV1 #### [place] [address] #### MG, CMP, PSA, GFR, ADIFF, PBNP, CBC, LIPID, ANEU #### [address] [address] Sodium [Moles/Vol] 142 mmol/L Normal 136-145 [facility] Comment on above: Performed By: #### H CV1 #### [place] [address] #### MG, CMP, PSA, GFR, ADIFF, PBNP, CBC, LIPID, ANEU #### [address] [address] Total Protein 6.6 G/dL Normal 6.4-8.2 [facility] Comment on above: Performed By: #### H CV1 #### [place] [address] #### MG, CMP, PSA, GFR, ADIFF, PBNP, CBC, LIPID, ANEU #### [address] [address] Urea nitrogen [Mass/Vol] 15 mg/dL Normal 7-18 [facility] Comment on above: Performed By: #### H CV1 #### [place] [address] #### MG, CMP, PSA, GFR, ADIFF, PBNP, CBC, LIPID, ANEU #### [address] [address] LIPIDon 09-01-2024 Cholesterol [Mass/Vol] 107 mg/dL Normal 0-200 [facility] Comment on above: Result Comment: Chol esterol Reference Interval: Less than 200 Desirable 200-239 Borderline high risk 240 and above High risk Performed By: #### A DIFF, ANEU, CBC #### [address] [address] Cholesterol in HDL [Mass/Vol] 62 mg/dL High 40-60 [facility] Comment on above: Performed By: #### A DIFF, ANEU, CBC #### [address] [address] Cholesterol in LDL [Mass/Vol] 40 mg/dL Normal 0-130 [facility] Comment on above: Performed By: #### A DIFF, ANEU, CBC #### [address] [address] Triglyceride [Mass/Vol] 26 mg/dL Normal 0-150 [facility] Comment on above: Result Comment: Trig lyceride Reference Interval: Less than 150 Normal 150-199 Borderline high risk 200-499 High risk 500 or higher Very high risk Performed By: #### A DIFF, ANEU, CBC #### [address] [address] MGon 09-01-2024 Magnesium [Mass/Vol] 1.6 mg/dL Low 1.8-2.4 [facility] Comment on above: Performed By: #### H CV1 #### [place] [address] #### MG, CMP, PSA, GFR, ADIFF, PBNP, CBC, LIPID, ANEU #### [address] [address] PBNPon 09-01-2024 Natriuretic peptide B (Bld) [Mass/Vol] 2378 pg/mL High 0-125 [facility] Comment on above: Result Comment: NT-p roBNP results of less than 300 pg/mL effectively rules out acute congestive heart failure with 99% negative predictive value. Performed By: #### H CV1 #### [place] [address] #### MG, CMP, PSA, GFR, ADIFF, PBNP, CBC, LIPID, ANEU #### [address] [address] PSAon 09-01-2024 Prostate Specific Antigen 0.31 ng/mL Normal 0.00-4.00 [facility] Comment on above: Performed By: #### A DIFF, ANEU, CBC #### [facility] [address] [place], [place] [address] Magnetic resonance imaging r eportOrdered By: Von Nñuez on 08-18-2024 Study report [facility] Imaging Services [address] [place] [address] MRI Abd WITH and W/O Contrast MR#: [id number] Acct: [id number] Name: RAMÓN THOMAS Rep #: [id number] : 1955 M 69 From: Anjana Nuñez MD PCP: Dr. Jay Easton, DO Status: REG CLI Study:MRI Abd WITH and W/O Contrast Date of E xam: 08/17/24 Exam# [id number] Ordering Dr: Unique Glez MD PROCEDURE: MRI ABD WITH AND W/O CONTRAST REASON FOR EXAM: Liver hemangioma, rule out HCC TECHNIQUE: Multiplanar, multisequence MRI of the upper abdomen without and with intravenousgadolinium- based contrast. CONTRAST: 19 mL Clariscan COMPARISON: 01/08/2020. FINDINGS: Variable overall mild motion limitation. Note that some abdominal viscera are partially imaged on some sequences as the exam was optimized for assessment of the liver. Lung bases: Cardiomegaly. Liver: Normal signal characteristics. Mildly lobulated contours without overt serosal nodularity. 1.5 cm lesion in the subcapsular aspect of segment VII demonstrates enhancement pattern typical for hemangioma, similar in size to 10/15/2021 (series 5 image 8). T2 bright nonenhancing 1.9 cm lesion in the subcapsular aspect of segment demonstrates no definite enhancement on the early arterial and early portal venous phases, but demonstrates possible subtle motion degraded peripheral discontinuous nodular enhancement on more delayed portal venous imaging although assessment islimited on(series 5, image 14). This may have increased in size slightly from 1.5 cm on 10/15/2021. Serpiginous T1 dark foci in the subcapsular aspect of segment IVB demonstrates flow voids with enhancement similar to vasculature and appears to connect a prominent branch of the middle hepatic vein with a prominent branch of the left portal vein, consistent with an intrahepatic vascular shunt, 1.8 cm maximally in the axial plane (series 5 image 14). This was probably present previously. Few other punctate T2 bright foci present, difficult to characterize definitively due to tiny size but likely to reflect cysts or hemangiomas. Biliary: Unremarkable. Pancreas: Unremarkable. Spleen: Unremarkable. Adrenals: Unremarkable. Kidneys: Scattered simple and presumed hemorrhagic/proteinace ous cysts, evaluation of intrinsically T1 bright presumed hemorrhagic/proteinace ous cysts is limited in the absence of subtraction imagingto confirm lack of true enhancement on postcontrast imaging. A complex T1 isointense cystic lesion of the upper pole of the right kidney is largely nonenhancing measuring 1.4 x 1.6 cm but demonstrates a thin enhancing internal septation as well as a possible 5-6 mm mural nodule. Note that the kidneys are incompletely imaged on some sequences including postcontrast imaging as the exam was optimized for evaluation of the liver as above. Peritoneum / Retroperitoneum: Unremarkable.. Lymph Nodes: Unremarkable. Major Vessels: As above. Otherwise unremarkable. Bones: 1.0 cm T2 bright enhancing lesion within the L1 vertebral body the left aspect of the, included only on some sequences, probably corresponding to a likely hemangioma on previous CT. Mild lumbar levoscoliosis. Severe degenerative changes of the hips with paralabral cysts and likely right hip joint effusion, minimally and not well evaluated. MRI/MRI Abd WITH and W/O Contrast IMPRESSION: 1. No definite suspicious hepatic lesion identified. 1.5 cm definite and 1.9 cmprobable hemangiomas are present, the latter perhaps minimally enlarged from 10/15/2021, further suggesting a benign/indolentetiolog y although evaluation is mildly motion limited. 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 This can occur in the setting of her cirrhosis or may be congenital or posttraumatic/postproc edural. Given cardiomegaly, this could conceivably be hemodynamically significant. 2. Indeterminate 1.6 cm somewhat complex cystic right upper pole renal lesion which is best considered Bosniak III. Recommend urology consultation, and at a minimum, follow-up renal protocol CT/MRI in 3-6 months for more optimal evaluation and to evaluate short interval stability. The above probable hemangioma can also be evaluated for interval change at that time. 3. Additional description as above. Reading Location: [id number] CC: Dr. Jay Easton DO; Dr. Behzad Glez MD ~ Rn Physician Office: Signed [facility] MRI Abd WITH and W/O Contras ton 08-17-2024 MRI Abd WITH and W/O Contrast [facility] Imaging Services [address] [place] [address] MRI Abd WITH and W/O Contrast MR#: [id number] Acct: [id number] Name: RAMÓN THOMAS Rep #: [id number] : 1955 M 69 From: [place]ez MD PCP: Dr. Jay Easton DO Status: REG CLI Study: MRI Abd WITH and W/O Contrast Date of Exam: Exam# [id number] Ordering Dr: Behzad Glez MD PROCEDURE: MRI ABD WITH AND W/O CONTRAST REASON FOR EXAM: Liver hemangioma, rule out HCC TECHNIQUE: Multiplanar, multisequence MRI of the upper abdomen without and with intravenous gadolinium-based contrast. CONTRAST: 19 mL Clariscan COMPARISON: 01/08/2020. FINDINGS: Variable overall mild motion limitation. Note that some abdominal viscera are partially imaged on some sequences as the exam was optimized for assessment of the liver. Lung bases: Cardiomegaly. Liver: Normal signal characteristics. Mildly lobulated contours without overt serosal nodularity. 1.5 cm lesion in the subcapsular aspect of segment VII demonstrates enhancement pattern typical for hemangioma, similar in size to 10/15/2021 (series 5 image 8). T2 bright nonenhancing 1.9 cm lesion in the subcapsular aspect of segment demonstrates no definite enhancement on the early arterial and early portal venous phases, but demonstrates possible subtle motion degraded peripheral discontinuous nodular enhancement on more delayed portal venous imaging although assessment is limited on(series 5, image 14). This may have increased in size slightly from 1.5 cm on 10/15/2021. Serpiginous T1 dark foci in the subcapsular aspect of segment IVB demonstrates flow voids with enhancement similar to vasculature and appears to connect a prominent branch of the middle hepatic vein with a prominent branch of the left portal vein, consistent with an intrahepatic vascular shunt, 1.8 cm maximally in the axial plane (series 5 image 14). This was probably present previously. Few other punctate T2 bright foci present, difficult to characterize definitively due to tiny size but likely to reflect cysts or hemangiomas. Biliary: Unremarkable. Pancreas: Unremarkable. Spleen: Unremarkable. Adrenals: Unremarkable. Kidneys: Scattered simple and presumed hemorrhagic/proteinace ous cysts, evaluation of intrinsically T1 bright presumed hemorrhagic/proteinace ous cysts is limited in the absence of subtraction imaging to confirm lack of true enhancement on postcontrast imaging. A complex T1 isointense cystic lesion of the upper pole of the right kidney is largely nonenhancing measuring 1.4 x 1.6 cm but demonstrates a thin enhancing internal septation as well as a possible 5- 6 mm mural nodule. Note that the kidneys are incompletely imaged on some sequences including postcontrast imaging as the exam was optimized for evaluation of the liver as above. Peritoneum / Retroperitoneum: Unremarkable.. Lymph Nodes: Unremarkable. Major Vessels: As above. Otherwise unremarkable. Bones: 1.0 cm T2 bright enhancing lesion within the L1 vertebral body the left aspect of the, included only on some sequences, probably corresponding to a likely hemangioma on previous CT. Mild lumbar levoscoliosis. Severe degenerative changes of the hips with paralabral cysts and likely right hip joint effusion, minimally and not well evaluated. MRI/MRI Abd WITH and W/O Contrast IMPRESSION: 1. No definite suspicious hepatic lesion identified. 1.5 cm definite and 1.9 cm probable hemangiomas are present, the latter perhaps minimally enlarged from 10/15/2021, further suggesting a benign/indolent etiology although evaluation is mildly motion limited. 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 This can occur in the setting of her cirrhosis or may be congenital or posttraumatic/postproc edural. Given cardiomegaly, this could conceivably be hemodynamically significant. 2. Indeterminate 1.6 cm somewhat complex cystic right upper pole renal lesion which is best considered Bosniak III. Recommend urology consultation, and at a minimum, follow-up renal protocol CT/MRI in 3-6 months for more optimal evaluation and to evaluate short interval stability. The above probable hemangioma can also be evaluated for interval change at that time. 3. Additional description as above. Reading Location: [id number] CC: Dr. Jay Easton DO; Dr. Behzad Glez MD Rn Physician Office: Signed Normal [facility] RENINon 07-16-2024 Renin Activity 0.304 ng/mL/hr Normal 0.167-5.38 0 [facility] Comment on above: Result Comment: This test was developed and its performance characteristics determined by [employer]. It has not been cleared or approved by the Food and Drug Administration. Performed At: [facility] [id number] Sherman Aguirre MD Ph:[phone] Performed By: #### A RODRIGUEZ FELIPE, CBC #### [address] [address] ALDOSon 07-15-2024 Aldosterone. 7.2 ng/dL Normal 0.0-30.0 [facility] Comment on above: Result Comment: This test was developed and its performance characteristics determined by [facility]. It has not been cleared or approved by the Food and Drug Administration. Performed At: [facility] [id number] Sherman Aguirre MD Ph:[phone] Performed By: #### A DESTINEE ANEU, CBC #### [address] [address] Gastroenterology Visit Repor ton 07-12-2024 Gastroenterology Visit Report [facility] [address] [place] [address] OFFICE VISIT Date of Service: 07/12/24 MR#: [id number] Acct: [id number] Name: THOMASRAMÓN Sandi Rep #: [id number] : 1955 Provider: Dr. Behzad baker MD Age/Sex: 68/M Location: [facility] Status: Signed Intake Vital Signs 12/25/23 15:25 07/12/24 13:44 Height 5 ft 8 in 5 ft 8 in Weight: 195 lb BMI 29.6 BP 96/64 Blood Pressure Location Rt brachial Position Sitting Pulse 49 L Pulse Oximetry (%) 92 Oxygen Delivery Method room air Intake Visit Reasons: 3 M FU Allergies Tetracyclines Allergy (Verified 07/12/24 13:36) Swelling Medications ???Medication ???Instructions ???Recorded ???Confirmed ???Type spironolactone 25 mg tablet 25 mg PO BID diuretic 10/23/13 07/12/24 History albuterol sulfate 90 mcg/actuation 2 puff inhalation Q4H PRN 10/24/22 07/12/24 History aerosol inhaler shortness of breath or wheezing calcitriol 0.25 mcg capsule 0.25 mcg PO DAILY 10/24/22 07/12/24 History calcium gluconate 60 mg calcium 60 mg PO DAILY 10/24/22 07/12/24 History (650 mg) tablet cyanocobalamin (vitamin B-12) 1,000 mcg PO DAILY 10/24/22 07/12/24 History 1,000 mcg tablet magnesium oxide 400 mg (241.3 mg 400 mg PO DAILY 10/24/22 07/12/24 History magnesium) tablet potassium chloride 10 mEq 20 meq PO DAILY 10/24/22 07/12/24 History tablet,extended release rivaroxaban 20 mg tablet (Xarelto) 20 mg PO DAILY 10/24/22 07/12/24 History ibandronate 150 mg tablet 150 mg PO QMONTH 11/12/22 07/12/24 History trazodone 100 mg tablet 100 mg PO QHS 06/26/23 07/12/24 History sennosides 8.6 mg-docusate sodium 2 tab PO BID PRN PRN Constipation 06/28/23 07/12/24 Rx 50 mg tablet (Stool #0 tabs Softener-Stimulant Laxative) fluticasone fur. 200 mcg-umeclid 1 inh inhalation DAILY 07/10/23 07/12/24 History 62.5 mcg-vilant 25 mcg inhalat.powder (Trelegy Ellipta) acetaminophen 500 mg capsule 1,000 mg PO Q6H PRN 11/20/23 07/12/24 History diclofenac sodium 1 % topical gel 2 g topical ONCE 11/20/23 07/12/24 History (Arthritis Pain (diclofenac)) hydrocodone-acetaminop hen 5-325mg 1 tab PO QHS PRN 11/20/23 07/12/24 History 5mg-325mg levothyroxine 125 mcg tablet 112 mcg PO DAILY thyroid 12/11/23 07/12/24 History metoprolol tartrate 100 mg tablet 75 mg PO BID 12/11/23 07/12/24 History torsemide 20 mg tablet 20 mg PO DAILY 12/11/23 07/12/24 History Have you fallen in the past year?: No PFSH Medical History Wears glasses MRSA infection Cancer Thyroid disease Walker as ambulation aid Arthritis Low iron Anemia High cholesterol Chronic cough Non-smoker History of stress test History of atrial fibrillation Cardiology follow-up encounter History of edema Hx of colonic polyps Chronic pain of toe of left foot Chronic pain BiPAP (biphasic positive airway pressure) dependence Sleep apnea Asthma Atrial fibrillation Chronic anemia CKD (chronic kidney disease), stage II Bone lesion Lumbar radiculopathy Restrictive lung disease Permanent atrial fibrillation Peripheral neuropathy Observed sleep apnea Nonrheumatic mitral valve regurgitation Lumbar facet arthropathy Lumbar degenerative disc disease Idiopathic hypertrophic subaortic stenosis Hypothyroidism Hyperlipidemia Nephrolithiasis Hyperparathyroidism Arthritis of left hip (HFpEF) heart failure with preserved ejection fraction COPD (chronic obstructive pulmonary disease) Lesion of lumbar spine Surgical History History of cardiac catheterization Hx of colonoscopy History of lung surgery History of surgery on lower extremity Hx of tonsillectomy History of transesophageal echocardiography (JAMEE) Hx of cardiovascular stress test Hx of echocardiogram Family History Father Myocardial infarction CAD (coronary artery disease) Heart disease Hypertension Mother Hypertension Diabetes Social History household members: none current occupational status: retired Smoking Status: Never smoker alcohol intake: never substance use type: does not use caffeine: Yes Type: carbonated beverages HPI HPI Details: RAMÓN THOMAS, is a 68 M who presents to the office today for follow up. OV 04.09.24- referred for hyperbilirubinemia. Denies abdominal pain, jaundice, recent upper or lower GI bleed, nausea or vomiting, itching or confusion. OV 07.12.24- Patient well since last visit. States his PCP ordered elastography in April that was concerning for liver mass. Follow up MRI showed multiple hemangiomas. Is not currently having any GI (more content not included)... Normal [facility] .GFRon 07-09-2024 GFR 104 ml/min/1.73sqm Normal [facility] Comment on above: Result Comment: GFR Population mean for , Non- Americans Ages 20-29 = 116 mL/min/1.73 sq.m. Ages 30-39 = 107 mL/min/1.73 sq.m. Ages 40-49 = 99 mL/min/1.73 sq.m. Ages 50-59 = 93 mL/min/1.73 sq.m. Ages 60-69 = 85 mL/min/1.73 sq.m. Ages 70+ = 75 mL/min/1.73 sq.m. Chronic Kidney Disease: Less than 60 mL/min/1.73 square meters End Stage Renal Disease: Less than 15 mL/min/1.73 square meters Performed By: #### C MP, VIDH, MG, GFR, TSH ####[facility] [place] [id number]#### PTH ####[place] [address] GFR Non- 86 ml/min/1.73sqm [facility] Comment on above: Result Comment: GFR Population mean for , Non- Americans Ages 20-29 = 116 mL/min/1.73 sq.m. Ages 30-39 = 107 mL/min/1.73 sq.m. Ages 40-49 = 99 mL/min/1.73 sq.m. Ages 50-59 = 93 mL/min/1.73 sq.m. Ages 60-69 = 85 mL/min/1.73 sq.m. Ages 70+ = 75 mL/min/1.73 sq.m. Chronic Kidney Disease: Less than 60 mL/min/1.73 square meters End Stage Renal Disease: Less than 15 mL/min/1.73 square meters Performed By: #### C MP, VIDH, MG, GFR, TSH ####[place] [address] [place], [place] [address]#### PTH ####[address] [address] CMPon 07-09-2024 ALT [Catalytic activity/Vol] 11 U/L Low 16-63 [facility] Comment on above: Performed By: #### C MP, VIDH, MG, GFR, TSH ####[place] [address]#### PTH ####[place] [address] Albumin Level 3.3 G/dL Low 3.4-4.8 [facility] Comment on above: Performed By: #### C MP, VIDH, MG, GFR, TSH ####[place] [address]#### PTH ####[place] [address] Albumin/Globulin [Mass ratio] 1.1 {ratio} Normal 1.1-2.5 [facility] Comment on above: Performed By: #### C MP, VIDH, MG, GFR, TSH ####[place] [address]#### PTH ####[place] [address] ALP [Catalytic activity/Vol] 95 U/L Normal 40-135 [facility] Comment on above: Performed By: #### C MP, VIDH, MG, GFR, TSH ####[place] [address]#### PTH ####[place] [address] AST [Catalytic activity/Vol] 19 U/L Normal 10-40 [facility] Comment on above: Performed By: #### C MP, VIDH, MG, GFR, TSH ####[place] [address]#### PTH ####[place] [address] Bili Total 1.6 mg/dL High 0.2-1.0 [facility] Comment on above: Result Comment: Use of this assay is not recommended for patients undergoing treatment with eltrombopag due to the potential for falsely elevated results. Performed By: #### C MP, VIDH, MG, GFR, TSH ####[place] [address]#### PTH ####[place] [address] BUN/Creatinine Ratio 22 ratio Normal 7-27 [facility] Comment on above: Performed By: #### C MP, VIDH, MG, GFR, TSH ####[place] [address]#### PTH ####[place] [address] Calcium [Mass/Vol] 9.0 mg/dL Normal 8.4-10.2 [facility] Comment on above: Performed By: #### C MP, VIDH, MG, GFR, TSH ####[place] [address]#### PTH ####[place] [address] Chloride [Moles/Vol] 102 mmol/L Normal 98-107 [facility] Comment on above: Performed By: #### C MP, VIDH, MG, GFR, TSH ####[place] [address]#### PTH ####[place] [address] CO2 [Moles/Vol] 27 mmol/L Normal 23-31 [facility] Comment on above: Performed By: #### C MP, VIDH, MG, GFR, TSH ####[place] [address]#### PTH ####[place] [address] Creatinine [Mass/Vol] 0.88 mg/dL Normal 0.70-1.30 [facility] Comment on above: Result Comment: Test ing performed on Siemens Dimension EXL analyzer using a modified kinetic Daniel technique. Performed By: #### C MP, VIDH, MG, GFR, TSH ####[place] [address]#### PTH ####[place] [address] Electrolyte Balance 6.0 mEq/L Normal 4.0-15.[address] [facility] Comment on above: Performed By: #### C MP, VIDH, MG, GFR, TSH ####[place] [address]#### PTH ####[place] [address] Globulin 2.9 G/dL Normal [facility] Comment on above: Performed By: #### C MP, VIDH, MG, GFR, TSH ####[place] [address]#### PTH ####[place] [address] Glucose [Mass/Vol] 80 mg/dL Low 83-110 [facility] Comment on above: Performed By: #### C MP, VIDH, MG, GFR, TSH ####[place] [address]#### PTH ####[place] [address] Potassium [Moles/Vol] 3.8 mmol/L Normal 3.5-5.1 [facility] Comment on above: Performed By: #### C MP, VIDH, MG, GFR, TSH ####[place] [address]#### PTH ####[place] [address] Sodium [Moles/Vol] 135 mmol/L Low 136-145 [facility] Comment on above: Performed By: #### C MP, VIDH, MG, GFR, TSH ####[place] [address]#### PTH ####[place] [id number] Total Protein 6.2 G/dL Low 6.4-8.2 [facility] Comment on above: Performed By: #### C MP, VIDH, MG, GFR, TSH ####[place] [address]#### PTH ####[place] [address] Urea nitrogen [Mass/Vol] 19 mg/dL High 7-18 [facility] Comment on above: Performed By: #### C MP, VIDH, MG, GFR, TSH ####[place] [address]#### PTH ####[place] [address] DHEASon 07-09-2024 DHEA-SO4 21.98 mcg/dL Low 34.50-568. 90 [facility] Comment on above: Result Comment: No te - New Reference Range in effect 20 Performed By: #### A DIFF, ANEU, CBC #### [place] [address] MGon 07-09-2024 Magnesium [Mass/Vol] 1.7 mg/dL Low 1.8-2.4 [facility] Comment on above: Performed By: #### C MP, VIDH, MG, GFR, TSH ####[place] [address]#### PTH ####[place] [address] PTHon 07-09-2024 PTH, Intact 52.0 pg/mL Normal 18.5-88.0 [facility] Comment on above: Performed By: #### C MP, VIDH, MG, GFR, TSH ####[place] [address]#### PTH ####[place] [address] TSHon 07-09-2024 TSH Qn 2.53 m[IU]/L Normal 0.36-3.74 [facility] Comment on above: Performed By: #### C MP, VIDH, MG, GFR, TSH ####[place] [address] [place], [place] [address]#### PTH ####[address] [address] VIDHon 07-09-2024 Vit. D 25-Hydroxy 35.0 ng/mL Normal [facility] Comment on above: Result Comment: Inte rpretive Values Based on Total 25(OH) Vitamin D: Deficient <20 ng/mL Insufficient 20 - <30 ng/mL Sufficient 30-100 ng/mL Performed By: #### C MP, VIDH, MG, GFR, TSH ####[place] [address] [place], [place] [address]#### PTH ####[address] [address] Miscellaneous Lab Procedureo n 06-08-2024 MISC LAB TEST Normal [facility] Comment on above: Order Comment: [id number] Result Comment: [id number] 6+OXYCODONE-BUND (ng/mL) DRUG RESULT SCREEN CUTOFF ____ Amphetamines,Urine Negative ng/mL 1000 Amphetamine test includes Amphetamine and Methamphetamine. Barbiturates Negative ng/mL 200 Benzodiazepines Negative ng/mL 200 Cannabinoid Negative ng/mL 20 Cocaine (Metab) Negative ng/mL 300 Opiates Negative ng/mL 300 Opiates test includes Codeine, Morphine, Hydromorphone, Hydrocodone. Oxycodone/Oxymorphone,Urine Negative ng/mL 300 Test includes Oxycodone and Oxymorphone. TESTING PERFORMED AT [facility]. ORIGINAL REPORT ON FILE IN LAB CONTAINS ADDITIONAL TEST SITE INFORMATION. Performed By: #### L 100.0100, L300.4310, L300.3900 #### [facility] [address] [place], [address] Albumin to globulin ratioOrd ered By: Dalton Clarke on 06-04-2024 Albumin/Globulin [Mass ratio] 1.0 {ratio} Normal 0.9-2.4 [facility] Comment on above: Performed By: #### L 100.0100, L300.4310, L300.3900 #### [facility] [address] [place], [address] Bilirubin, totalOrdered By: Dalton Clarke on 06-04-2024 Bilirubin [Mass/Vol] 1.70 mg/dL High 0.20-1.[address] [facility] Comment on above: For patients on eltr ombopag therapy, use of Dimension [place] TBIL is not recommended. Result Comment: For patients on eltrombopag therapy, use of Dimension [place] TBIL is not recommended. Performed By: #### L 100.0100, L300.4310, L300.3900 #### [facility] [address] [place], [place], [address] Blood urea nitrogen (BUN)/cr eatinine ratioOrdered By: Dalton Clarke on 06-04-2024 Urea nitrogen/Creatinine [Mass ratio] 17.4 mg/mg 04-04 [facility] Carbon dioxide measurementOr dered By: Dalton Clarke on 06-04-2024 CO2 [Moles/Vol] 23.0 mmol/L Normal 21.0-32.0 [facility] Comment on above: Performed By: #### L 100.0100, L300.4310, L300.3900 #### [facility] [address] [place], [address] Chloride measurementOrdered By: Dalton Clarke on 06-04-2024 Chloride [Moles/Vol] 107 mmol/L Normal 98-[address] [facility] Comment on above: Performed By: #### L 100.0100, L300.4310, L300.3900 #### [facility] [address] [place], [address] Comprehensive Metabolic Prof sneha 06-04-2024 ALK P 86 U/L Normal 45-117 [facility] Comment on above: Performed By: #### L 100.0100, L300.4310, L300.3900 #### [facility] [address] [place], [address] BUN/CRE 17.4 RATIO Normal 10-20 [facility] Comment on above: Performed By: #### L 100.0100, L300.4310, L300.3900 #### [facility] [address] [place], [address] CA,Total 9.2 mg/dL Normal 8.5-10.1 [facility] Comment on above: Performed By: #### L 100.0100, L300.4310, L300.3900 #### [facility] [address] [place], [address] EST GFR - AA 133 mL/min Normal >60 [facility] Comment on above: Result Comment: Afri can [place] GFR Calc Performed By: #### L 100.0100, L300.4310, L300.3900 #### [facility] [address] [place], [address] GAP 7 Normal 5-15 [facility] Comment on above: Performed By: #### L 100.0100, L300.4310, L300.3900 #### [facility] [address] [place], [address] GFR/1.73 sq M.predicted among non-blacks MDRD (S/P/Bld) [Vol rate/Area] 110 mL/min/{1.73_m2} Normal >60 [facility] Comment on above: Result Comment: Non- GFR Calc Performed By: #### L 100.0100, L300.4310, L300.3900 #### [facility] [address] [place], [address] T PROT 6.2 g/dL Low 6.4-8.2 [facility] Comment on above: Performed By: #### L 100.0100, L300.4310, L300.3900 #### [facility] [address] [place], [address] Comprehensive Metabolic Prof ilOrdered By: Dalton Clarke on 06-04-2024 AST [Catalytic activity/Vol] 13 U/L Low 15-37 [facility] Comment on above: Performed By: #### L 100.0100, L300.4310, L300.3900 #### [facility] [address] [place], [address] Estimated glomerular filtrat ion rate (GFR) AmericanOrdered By: Dalton Clarke on 06-04-2024 Estimated GFR (MDRD) Amer 133 mL/min >60 [facility] Comment on above: GFR Calc Glomerular filtration rate ( GFR) estimationOrdered By: Dalton Clarke on 06-04-2024 Estimated GFR (MDRD) Non-Af Amer 110 mL/min >60 [facility] Comment on above: Non- GFR Calc Glucose measurementOrdered B y: Dalton Clarke on 06-04-2024 Glucose [Mass/Vol] 79 mg/dL Normal 74-106 [facility] Comment on above: Performed By: #### L 100.0100, L300.4310, L300.3900 #### [facility] [address] [place], [address] Magnesium measurementOrdered By: Dalton Clarke on 06-04-2024 Magnesium [Mass/Vol] 1.8 mg/dL Normal 1.6-2.[address] [facility] Comment on above: Performed By: #### L 100.0100, L300.4310, L300.3900 #### [facility] [address] [place], [address] Potassium measurementOrdered By: Dalton Clarke on 06-04-2024 Potassium [Moles/Vol] 3.9 mmol/L Normal 3.5-5.1 [facility] Comment on above: Performed By: #### L 100.0100, L300.4310, L300.3900 #### [facility] [address] [place], [address] Serum anion gap measurementO rdered By: Dalton Clarke on 06-04-2024 Anion gap [Moles/Vol] 7 mmol/L 5-15 [facility] Serum globulin measurementOr dered By: Dalton Clarke on 06-04-2024 Globulin (S) [Mass/Vol] 3.1 g/dL Normal 2.2-4.2 [facility] Comment on above: Performed By: #### L 100.0100, L300.4310, L300.3900 #### [facility] [address] [place], [address] Serum or plasma alanine bland otransferase (ALT) measurementOrdered By: Dalton Clarke on 06-04-2024 ALT [Catalytic activity/Vol] 9 U/L Low 16-61 [facility] Comment on above: Performed By: #### L 100.0100, L300.4310, L300.3900 #### [facility] [address] [place], [address] Serum or plasma albumin gilma urement (mass/volume)Ordered By: Dalton Clarke on 06-04-2024 Albumin [Mass/Vol] 3.1 g/dL Low 3.2-5.0 [facility] Comment on above: Performed By: #### L 100.0100, L300.4310, L300.3900 #### [facility] [address] [place], [address] Serum or plasma alkaline misha sphatase measurementOrdered By: Dalton Clarke on 06-04-2024 ALP [Catalytic activity/Vol] 86 U/L 45-117 [facility] Serum or plasma calcium gilma urement (mass/volume)Ordered By: Dalton Clarke on 06-04-2024 Calcium [Mass/Vol] 9.2 mg/dL 8.5-10.1 [facility] Serum or plasma creatinine m easurement (mass/volume)Ordered By: Dalton Clarke on 06-04-2024 Creatinine [Mass/Vol] 0.75 mg/dL Normal 0.70-1.30 [facility] Comment on above: The validity of the calculated GFR & GFRAA in patients over 70 years has not been determined. Clinical correlation is essential. Result Comment: The validity of the calculated GFR GFRAA in patients over 70 years has not been determined. Clinical correlation is essential. Performed By: #### L 100.0100, L300.4310, L300.3900 #### [facility] [address] [place], [address] Serum or plasma urea nitroge n measurement (mass/volume)Ordered By: Dalton Clarke on 06-04-2024 Urea nitrogen [Mass/Vol] 13 mg/dL Normal 7-18 [facility] Comment on above: Performed By: #### L 100.0100, L300.4310, L300.3900 #### [facility] [address] [place], [address] Sodium levelOrdered By: Deo Clarke on 06-04-2024 Sodium [Moles/Vol] 137 mmol/L Normal 136-145 [facility] Comment on above: Performed By: #### L 100.0100, L300.4310, L300.3900 #### [facility] [address] [place], [address] TSH QnOrdered By: Dalton donald on 06-04-2024 Thyroid Stimulating Hormone (TSH) 3.560 uIU/mL 0.358-3.74 0 [facility] Thyroid Stim Hormone (TSH)on 06-04-2024 TSH 3.560 uIU/mL Normal 0.358-3.74 0 [facility] Comment on above: Performed By: #### L 100.0100, L300.4310, L300.3900 #### [facility] [place] [address], [address] Total proteinOrdered By: Devonte Clarke on 06-04-2024 Protein [Mass/Vol] 6.2 g/dL Low 6.4-8.2 [facility] Methadone, urineOrdered By: Akiko Bergeron on 06-02-2024 Urine Methadone Screen Negative < 300 ng/mL [facility] Miscellaneous procedureOrder ed By: Akiko Bergeron on 06-02-2024 Miscellaneous Test See comment [facility] Comment on above: [id number] 6+OXYCODONE-B UND (ng/mL) DRUG RESULT SCREEN CUTOFF____ Amphetamines,Urine Negative ng/mL 1000 Amphetamine test includes Amphetamine and Methamphetamine.Barbiturates Negative ng/mL 200Benzodiazepines Negative ng/mL 200Cannabinoid Negative ng/mL 20Cocaine (Metab) Negative ng/mL 300Opiates Negative ng/mL 300 Opiates test includes Codeine, Morphine, Hydromorphone, Hydrocodone. Oxycodone/Oxymorphone,Urine Negative ng/mL 300 Test includes Oxycodone and Oxymorphone. TESTING PERFORMED AT [facility]. ORIGINAL REPORT ON FILE IN LAB CONTAINS ADDITIONAL TEST SITE INFORMATION. No Panel InformationOrdered By: Akiko Bergeron on 06-02-2024 Urine Drug Screen Comment [facility] Comment on above: CONFIRMATORY TESTING FOR ALL POSITIVE URINE DRUG SCREENRESULTS WILL ONLY BE SENT OUT UPON PHYSICIAN ORDER. [facility]IST[facility] Urine Drug Screen methods provide only preliminaryanalytical test results. A more specific alternate chemicalmethod must be used in order to obtain a confirmedanalytical result. Gas chromatography/mass spectrometery(GC/MS) is the preferred confirmatory method. Clinicalconsideration and professional judgement should be appliedto any drug of abuse test result, particularly whenpreliminary positive results are used. URINE TCA TESTING MUST BE ORDERED SEPARATELY. USE TESTMNEMONIC: [facility]CA Quantitative urine opiates m easurementOrdered By: Akiko Bergeron on 06-02-2024 Opiates Ql (U) Positive High < 300 ng/mL [facility] Urine Drug Screen (VISTA)on 06-02-2024 AMPHETAMINES Negative Normal <1000 ng/mL [facility] Comment on above: Order Comment: run l [id number] Performed By: #### L 100.0100, L300.4310, L300.3900 #### [facility] [address] [place], [address] BARBITIURATES Negative Normal < 200 ng/mL [facility] Comment on above: Order Comment: run l [id number] Performed By: #### L 100.0100, L300.4310, L300.3900 #### [facility] [address] [place], [address] BENZODIAZIPINE Negative Normal < 200 ng/mL [facility] Comment on above: Order Comment: run l [id number] Performed By: #### L 100.0100, L300.4310, L300.3900 #### [facility] [address] [place], [address] COCAINE Negative Normal < 300 ng/mL [facility] Comment on above: Order Comment: run l [id number] Performed By: #### L 100.0100, L300.4310, L300.3900 #### [facility] [address] [place], [address] ECSTACY Positive Abnormal < 500 ng/mL [facility] Comment on above: Order Comment: run l [id number] Performed By: #### L 100.0100, L300.4310, L300.3900 #### [facility] [address] [place], [address] METHADONE Negative Normal < 300 ng/mL [facility] Comment on above: Order Comment: run l [id number] Performed By: #### L 100.0100, L300.4310, L300.3900 #### [facility] [address] [place], [address] OPIATES Positive Abnormal < 300 ng/mL [facility] Comment on above: Order Comment: run l [id number] Performed By: #### L 100.0100, L300.4310, L300.3900 #### [facility] [address] [place], [address] PCP Negative Normal < 25 ng/mL [facility] Comment on above: Order Comment: run l [id number] Performed By: #### L 100.0100, L300.4310, L300.3900 #### [facility] [address] [place], [address] THC Negative Normal < 50 ng/mL [facility] Comment on above: Order Comment: run l [id number] Performed By: #### L 100.0100, L300.4310, L300.3900 #### [facility] [address] [place], [address] VISTA UDS PH 7 Normal [facility] Comment on above: Order Comment: run l [id number] Performed By: #### L 100.0100, L300.4310, L300.3900 #### [facility] [place] [address], [address] Urine amphetamine measuremen tOrdered By: Akiko Bergeron on 06-02-2024 Amphetamines Ql (U) Negative <1000 ng/mL [facility] Urine barbiturates measureme ntOrdered By: Akiko Bergeron on 06-02-2024 Urine Barbiturates Screen Negative < 200 ng/mL [facility] Urine benzodiazepine levelOr dered By: Akiko Bergeron on 06-02-2024 Benzodiazepines Ql (U) Negative < 200 ng/mL [facility] Urine cocaine levelOrdered B y: Akiko Bergeron on 06-02-2024 Cocaine Ql (U) Negative < 300 ng/mL [facility] Urine [id number] abinol (THC) measurementOrdered By: Akiko Bergeron on 06-02-2024 Cannabinoids Screen Ql (U) Negative < 50 ng/m L [facility] Urine methylenedioxymethamph etamine (MDMA) measurementOrdered By: Akiko Bergeron on 06-02-2024 MDMA (Ecstasy) Screen Positive High < 500 ng/mL [facility] Urine phencyclidine (PCP) de tectionOrdered By: Akiko Bergeron on 06-02-2024 Phencyclidine Ql (U) Negative < 25 ng/mL [facility] MRI LIVERon 05-11-2024 MRI LIVER ORIGINAL EXAMINATION: MRI LIVER WITH AND WITHOUT IV CONTRAST CLINICAL STATEMENT: Liver mass on elastography, rule out malignancy, fatty liver TECHNIQUE: Multiplanar multisequence MRI of the abdomen limited was performed with and without administration of intravenous contrast. COMPARISON: 02/23/2024, 04/23/2024, and 08/08/2022 HISTORY: Reason for exam: Liver mass on elastography, rule out malignancy, fatty liver FINDINGS: Motion artifact obscures some evaluation. Chemical shift imaging demonstrates no significant signal change. The liver demonstrates a dysmorphic appearance. There is a 1.1 cm T1 hypointense/T2 hyperintense segment 7 hepatic lesion which demonstrates progressive nodular enhancement with near complete fill-in on delayed images. There is an additional 1.8 cm lesion within segment 6 of the right hepatic lobe demonstrating similar characteristics. Within the lateral right hepatic lobe, there is a poorly evaluated T1 hypointense lesion which is suspected to demonstrate enhancement best appreciated on portal venous sequence. There appears to be a portal vein and hepatic vein extending into the lesion. 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 An additional lesion within the anterior liver on series 10 of image 35 is only appreciated on portal venous sequence appears to represent a small cyst. The gallbladder is present, no filling defects are evident. No biliary ductal dilation is demonstrated. The spleen, pancreas, and left adrenal gland demonstrate no suspicious lesion. 0.9 cm right adrenal gland nodule appears to demonstrate signal loss on out of phase images consistent with a fatty adenoma. The kidneys enhance symmetrically. There is no hydronephrosis. Bilateral renal cysts including a small hemorrhagic/proteinace ous cyst on the left. There is an additional 3.2 cm left layering milk of calcium cyst. No pathologically enlarged lymph nodes are demonstrated. There is no focal dilation of the abdominal aorta. The proximal portal veins, hepatic veins, SMV and splenic vein are patent. Mild cardiomegaly. There are stable nodular enhancing L1 and L3 vertebral body lesions. IMPRESSION: Motion degraded exam. Dysmorphic liver. There are a few hepatic lesions which appear to represent atypical hemangiomas within the right hepatic lobe. An additional anterior right hepatic lobe lesion possibly represents a small hemangioma versus vascular malformation as seen on prior ultrasound. Consider 6-12 month MRI liver protocol follow-up to document stability. Stable nodular enhancing L1 and L3 vertebral body lesions favoring hemangiomas. I have personally reviewed the images of this examination and agree with the resident's findings and interpretations. Interpreted by: Edward Tate MD Preliminary Report By: Loli Rico Electronically signed By Edward Tate MD Dictated Date: 05/11/2024 8:08:53 AM Prelim Date: 05/11/2024 4:19:53 PM Sign Date: 05/11/2024 4:19:53 PM Ordering Provider: JAY Richardson [facility] US ELASTOGRAPHY LIVER W/ABD LTDon 04-23-2024 US ELASTOGRAPHY LIVER W/ABD LTD ORIGINAL EXAMINATION: LIVER ELASTOGRAPHY [id number]/8/2024 1:27 pm RUQ Limited ultrasound abdomen and Hepatic elastography COMPARISON: 02/23/2024 HISTORY: ORDERING SYSTEM PROVIDED HISTORY: Reason for Exam: moderate fatty liver, rule out cirrhosis, All images are recorded and archived. FINDINGS: There is hyperechogenicity of the liver are with a macronodular contour. The liver is normal in size.. A 2.0 x 1.9 x 2.0 cm hyperechoic lesion is seen within the right hepatic lobe. This is not seen on the prior exam. In the setting of no known malignancy, this may represent hepatic hemangioma. There is no intra or extrahepatic bile duct dilatation. The common duct is not well visualized on this exam, and is therefore likely not dilated. The gallbladder is normally distended without calculus, wall thickening or tenderness. The gallbladder wall measures 1.6 mm. The visualized pancreas is normal in size. It is hyperechogenic, likely indicative fatty infiltration. No ascites is seen in the Torres's pouch. The right kidney shows no pelvocaliectasis. The right kidney measures 12.3 x 4.7 x 5.3. There is a 1.2 x 1.1 x 1.0 cm simple renal cyst within the lower pole. There is a 0.6 x 0.6 x 0.5 cm echogenic focus near the midpole which may represent a nonshadowing calculi versus a milk of calcium cyst. The visualized aorta appears normal. There is IVC prominence. Elastography of the liver was performed in the right lobe. Median velocity: 1.87 m/s IQR/median ratio: 9.5% (Value less than or equal to 15% should be seen to ensure exam adequacy.) IMPRESSION: Macronodular contour and fatty infiltration of the liver. There is a roughly 2 cm hyperechoic lesion seen within the right hepatic lobe, which is not appreciated on prior exams. If warranted clinically, further advanced imaging could be considered Liver elastography indicates moderate to severe risk of clinically significant liver fibrosis. Shear Wave Liver Elastography-liver fibrosis staging Median Velocity: Recommendation: 1.35-1.66 m/s (5.48 kPa - 8.29 kPa) Normal to mild risk of clinically significant liver fibrosis : METAVIR Stage F1 1.66-1.77 m/s (8.29 kPa - 9.40 kPa) Ebiz-ki-gkrdhbfu risk of clinically significant liver fibrosis. (METAVIR Stage F2) 1.77-1.99 m/s (9.40 kPa - 11.9 kPa) Moderate to severe risk of clinically significant liver fibrosis (METAVIR Stage F3) > 1.99 m/s (> 11.9 kPa) Advanced Fibrosis and/or Cirrhosis: (METAVIR Stage F4) I have personally reviewed the images of this examination and agree with the resident's findings and interpretation. Interpreted by: Denny Purdy DO Preliminary Report By: Romina Pichardo Electronically signed By Denny Purdy DO Dictated Date: 04/23/2024 1:37:02 PM Prelim Date: 04/23/2024 2:03:48 PM Sign Date: 04/23/2024 2:03:48 PM Ordering Provider: JAY Richardson [facility] .Auto Diffon 02-10-2024 Basophil, Absolute 0.1 10 3/mcL Normal 0.0-0.2 [facility] ([place]) Comment on above: Performed By: #### C MP, LIP, ANEU, GFR, CBC, ADIFF, PBNP, TSHR, BILAI ####[facility] [place], [place] [address] Basophils/100 WBC (Bld) 0.8 % Normal 0.0-2.5 A [facility] ([place]) Comment on above: Performed By: #### C MP, LIP, ANEU, GFR, CBC, ADIFF, PBNP, TSHR, BILAI ####[facility] [place], [place] [address] Eosinophil, Absolute 0.0 10 3/mcL Normal 0.0-0.4 [facility] ([place]) Comment on above: Performed By: #### C MP, LIP, ANEU, GFR, CBC, ADIFF, PBNP, TSHR, BILAI ####[facility] [address] [place], [place] [address] Eosinophils/100 WBC (Bld) 0.5 % Normal 0.0-7.0 [facility] ([place]) Comment on above: Performed By: #### C MP, LIP, ANEU, GFR, CBC, ADIFF, PBNP, TSHR, BILAI ####[facility] [address] [place], [place] [address] Lymphocyte, Absolute 1.0 10 3/mcL Normal 0.8-3.9 [facility] ([place]) Comment on above: Performed By: #### C MP, LIP, ANEU, GFR, CBC, ADIFF, PBNP, TSHR, BILAI ####[facility] [address] [place], [place] [address] Lymphocytes/100 WBC (Bld) 14.5 % Normal 10.0-50.0 [facility] ([place]) Comment on above: Performed By: #### C MP, LIP, ANEU, GFR, CBC, ADIFF, PBNP, TSHR, BILAI ####[facility] [address] [place], [place] [address] Monocyte, Absolute 0.6 10 3/mcL Normal 0.2-1.0 [facility] ([place]) Comment on above: Performed By: #### C MP, LIP, ANEU, GFR, CBC, ADIFF, PBNP, TSHR, BILAI ####[facility] [address] [place], [place] [address] Monocytes/100 WBC (Bld) 9.1 % Normal 1.7-13.0 A [facility] ([place]) Comment on above: Performed By: #### C MP, LIP, ANEU, GFR, CBC, ADIFF, PBNP, TSHR, BILAI ####[facility] [address] [place], [place] [address] Neutrophils/100 WBC (Bld) 75.1 % Normal 37.0-80.0 [facility] ([place]) Comment on above: Performed By: #### C MP, LIP, ANEU, GFR, CBC, ADIFF, PBNP, TSHR, BILAI ####[facility] [address] [place], [place] [address] .GFRon 02-10-2024 GFR 91 ml/min/1.73sqm Normal [facility] ([place]) Comment on above: Result Comment: GFR Population mean for , Non- Americans Ages 20-29 = 116 mL/min/1.73 sq.m. Ages 30-39 = 107 mL/min/1.73 sq.m. Ages 40-49 = 99 mL/min/1.73 sq.m. Ages 50-59 = 93 mL/min/1.73 sq.m. Ages 60-69 = 85 mL/min/1.73 sq.m. Ages 70+ = 75 mL/min/1.73 sq.m. Chronic Kidney Disease: Less than 60 mL/min/1.73 square meters End Stage Renal Disease: Less than 15 mL/min/1.73 square meters Performed By: #### C MP, LIP, ANEU, GFR, CBC, ADIFF, PBNP, TSHR, BILAI ####[facility] [place], [place] [address] GFR Non- 75 ml/min/1.73sqm Normal [facility] ([place]) Comment on above: Result Comment: GFR Population mean for , Non- Americans Ages 20-29 = 116 mL/min/1.73 sq.m. Ages 30-39 = 107 mL/min/1.73 sq.m. Ages 40-49 = 99 mL/min/1.73 sq.m. Ages 50-59 = 93 mL/min/1.73 sq.m. Ages 60-69 = 85 mL/min/1.73 sq.m. Ages 70+ = 75 mL/min/1.73 sq.m. Chronic Kidney Disease: Less than 60 mL/min/1.73 square meters End Stage Renal Disease: Less than 15 mL/min/1.73 square meters Performed By: #### C MP, LIP, ANEU, GFR, CBC, ADIFF, PBNP, TSHR, BILAI ####[facility] [place], [place] [address] .NEUABSon 02-10-2024 Neutrophil, Absolute 5.2 10 3/mcL Normal 2.9-6.2 [facility] ([place]) Comment on above: Performed By: #### C MP, LIP, ANEU, GFR, CBC, ADIFF, PBNP, TSHR, BILAI ####[facility] [place], [place] [address] BILAIon 02-10-2024 Bili Indirect 1.1 mg/dL Normal [facility] ([place]) Comment on above: Performed By: #### C MP, LIP, ANEU, GFR, CBC, ADIFF, PBNP, TSHR, BILAI ####[facility] [address] [place], [place] [address] Bili Direct 0.4 mg/dL High 0.0-0.2 [facility] ([place]) Comment on above: Result Comment: Use of this assay is not recommended for patients undergoing treatment with eltrombopag due to the potential for falsely elevated results. Performed By: #### C MP, LIP, ANEU, GFR, CBC, ADIFF, PBNP, TSHR, BILAI ####[facility] [address] [place], [place] [address] CBCon 02-10-2024 Erythrocyte distribution width (RBC) [Ratio] 14.2 % Normal 11.5-14.5 [facility] ([place]) Comment on above: Performed By: #### C MP, LIP, ANEU, GFR, CBC, ADIFF, PBNP, TSHR, BILAI ####[facility] [address] [place], [place] [address] Hematocrit (Bld) [Volume fraction] 36.6 % Low 42.0-52.0 [facility] ([place]) Comment on above: Performed By: #### C MP, LIP, ANEU, GFR, CBC, ADIFF, PBNP, TSHR, BILAI ####[facility] [address] [place], [place] [address] Hgb 12.3 G/dL Low 14.0-18.0 [facility] ([place]) Comment on above: Performed By: #### C MP, LIP, ANEU, GFR, CBC, ADIFF, PBNP, TSHR, BILAI ####[facility] [address] [place], [place] [address] MCH (RBC) [Entitic mass] 31.5 pg High 27.0-31.2 [facility] ([place]) Comment on above: Performed By: #### C MP, LIP, ANEU, GFR, CBC, ADIFF, PBNP, TSHR, BILAI ####[facility] [address] [place], [place] [address] MCHC 33.7 G/dL Normal 31.8-35.4 [facility] ([place]) Comment on above: Performed By: #### C MP, LIP, ANEU, GFR, CBC, ADIFF, PBNP, TSHR, BILAI ####[facility] [address] [place], [place] [address] MCV (RBC) [Entitic vol] 93.3 fL Normal 80.0-94.0 A [facility] ([place]) Comment on above: Performed By: #### C MP, LIP, ANEU, GFR, CBC, ADIFF, PBNP, TSHR, BILAI ####[facility] [address] [place], [place] [address] Platelet 148 10 3/mcL Normal 130-400 [facility] ([place]) Comment on above: Performed By: #### C MP, LIP, ANEU, GFR, CBC, ADIFF, PBNP, TSHR, BILAI ####[facility] [address] [place], [place] [address] Platelet mean volume (Bld) [Entitic vol] 9.8 fL Normal 7.4-10.4 [facility] ([place]) Comment on above: Performed By: #### C MP, LIP, ANEU, GFR, CBC, ADIFF, PBNP, TSHR, BILAI ####[facility] [address] [place], [place] [address] RBC 3.92 10 6/mcL Low 4.04-6.13 [facility] ([place]) Comment on above: Performed By: #### C MP, LIP, ANEU, GFR, CBC, ADIFF, PBNP, TSHR, BILAI ####[facility] [address] [place], [place] [address] WBC 7.0 10 3/mcL Normal 4.6-10.8 [facility] ([place]) Comment on above: Performed By: #### C MP, LIP, ANEU, GFR, CBC, ADIFF, PBNP, TSHR, BILAI ####[facility] [address] [place], [place] [address] CMPon 02-10-2024 Albumin Level 3.3 G/dL Low 3.4-4.8 [facility] ([place]) Comment on above: Performed By: #### C MP, LIP, ANEU, GFR, CBC, ADIFF, PBNP, TSHR, BILAI ####[facility] [place], [place] [address] Albumin/Globulin [Mass ratio] 1.2 {ratio} Normal 1.1-2.5 [facility] ([place]) Comment on above: Performed By: #### C MP, LIP, ANEU, GFR, CBC, ADIFF, PBNP, TSHR, BILAI ####[facility] [place], [place] [address] ALP [Catalytic activity/Vol] 90 U/L Normal 40-135 [facility] ([place]) Comment on above: Performed By: #### C MP, LIP, ANEU, GFR, CBC, ADIFF, PBNP, TSHR, BILAI ####[facility] [address] [place], [place] [address] ALT [Catalytic activity/Vol] 16 U/L Normal 16-63 [facility] ([place]) Comment on above: Performed By: #### C MP, LIP, ANEU, GFR, CBC, ADIFF, PBNP, TSHR, BILAI ####[facility] [address] [place], [place] [address] AST [Catalytic activity/Vol] 14 U/L Normal 10-40 [facility] ([place]) Comment on above: Performed By: #### C MP, LIP, ANEU, GFR, CBC, ADIFF, PBNP, TSHR, BILAI ####[facility] [address] [place], [place] [address] Bili Total 1.5 mg/dL High 0.2-1.0 [facility] ([place]) Comment on above: Result Comment: Use of this assay is not recommended for patients undergoing treatment with eltrombopag due to the potential for falsely elevated results. Performed By: #### C MP, LIP, ANEU, GFR, CBC, ADIFF, PBNP, TSHR, BILAI ####[facility] [address] [place], [place] [address] BUN/Creatinine Ratio 16 ratio Normal 7-27 [facility] ([place]) Comment on above: Performed By: #### C MP, LIP, ANEU, GFR, CBC, ADIFF, PBNP, TSHR, BILAI ####[facility] [address] [place], [place] [address] Calcium [Mass/Vol] 9.1 mg/dL Normal 8.4-10.2 [facility] ([place]) Comment on above: Performed By: #### C MP, LIP, ANEU, GFR, CBC, ADIFF, PBNP, TSHR, BILAI ####[facility] [address] [place], [place] [address] Chloride [Moles/Vol] 103 mmol/L Normal 98-107 [facility] ([place]) Comment on above: Performed By: #### C MP, LIP, ANEU, GFR, CBC, ADIFF, PBNP, TSHR, BILAI ####[facility] [address] [place] [id number] CO2 [Moles/Vol] 26 mmol/L Normal 23-31 [facility] ([place]) Comment on above: Performed By: #### C MP, LIP, ANEU, GFR, CBC, ADIFF, PBNP, TSHR, BILAI ####[facility] [address] [place], [place] [address] Creatinine [Mass/Vol] 0.99 mg/dL Normal 0.70-1.30 [facility] ([place]) Comment on above: Performed By: #### C MP, LIP, ANEU, GFR, CBC, ADIFF, PBNP, TSHR, BILAI ####[facility] [address] [place], [place] [address] Electrolyte Balance 9.0 mEq/L Normal 4.0-15.0 [facility] ([place]) Comment on above: Performed By: #### C MP, LIP, ANEU, GFR, CBC, ADIFF, PBNP, TSHR, BILAI ####[facility] [address] [place], [place] [address] Globulin 2.8 G/dL Normal [facility] ([place]) Comment on above: Performed By: #### C MP, LIP, ANEU, GFR, CBC, ADIFF, PBNP, TSHR, BILAI ####[facility] [address] [place], [place] [address] Glucose [Mass/Vol] 75 mg/dL Low 80-115 [facility] ([place]) Comment on above: Performed By: #### C MP, LIP, ANEU, GFR, CBC, ADIFF, PBNP, TSHR, BILAI ####[address] [place], [place] [address] Potassium [Moles/Vol] 4.3 mmol/L Normal 3.5-5.1 [facility] ([place]) Comment on above: Performed By: #### C MP, LIP, ANEU, GFR, CBC, ADIFF, PBNP, TSHR, BILAI ####[facility] [address] [place], [place] [address] Sodium [Moles/Vol] 138 mmol/L Normal 136-145 [facility] ([place]) Comment on above: Performed By: #### C MP, LIP, ANEU, GFR, CBC, ADIFF, PBNP, TSHR, BILAI ####[facility] [address] [place], [place] [address] Total Protein 6.1 G/dL Low 6.4-8.2 [facility] ([place]) Comment on above: Performed By: #### C MP, LIP, ANEU, GFR, CBC, ADIFF, PBNP, TSHR, BILAI ####[address] [place], [place] [address] Urea nitrogen [Mass/Vol] 16 mg/dL Normal 7-18 [facility] ([place]) Comment on above: Performed By: #### C MP, LIP, ANEU, GFR, CBC, ADIFF, PBNP, TSHR, BILAI ####[id number] [place], [place] [address] LABORATORYOrdered By: SYSTEM SYSTEM on 02-10-2024 Albumin BCP dye [Mass/Vol] 3.3 G/dL Low 3 .4 - 4.8 G/dL AO ADM SS Albumin/Globulin [Mass ratio] 1.2 {ratio} Normal 1.1 - 2.5 ratio AO ADM SS ALP [Catalytic activity/Vol] 90 U/L Normal 40 - 135 U/L AO ADM SS ALT With P-5'-P [Catalytic activity/Vol] 16 U/L Normal 16 - 63 U/L AO ADM SS AST With P-5'-P [Catalytic activity/Vol] 14 U/L Normal 10 - 40 U/L AO ADM SS Basophil, Absolute 0.1 103/mcL Normal 0.0 - 0.2 10^3/mcL AO Workflow SS Basophils/100 WBC (Bld) 0.8 % Normal 0.0 - 2.5 % AO Workflow SS Bilirubin.direct [Mass/Vol] 0.4 mg/dL High 0.0 - 0.2 mg/dL AO ADM SS Comment on above: Interpretive Data: U se of this assay is not recommended for patients undergoing treatment with eltrombopag due to the potential for falsely elevated results. Bilirubin.direct [Mass/Vol] 1.1 mg/dL Inva lid Interpretation Code AO Chemistry S Calcium [Mass/Vol] 9.1 mg/dL Normal 8.4 - 10. 2 mg/dL AO ADM SS Chloride [Moles/Vol] 103 mmol/L Normal 98 - 10 7 mmol/L AO ADM SS CO2 [Moles/Vol] 26 mmol/L Normal 23 - 31 mmol/L AO ADM SS Creatinine [Mass/Vol] 0.99 mg/dL Normal 0.70 - 1.30 mg/dL AO ADM SS Electrolyte Balance 9.0 mEq/L Normal 4.0 - 15 .0 mEq/L AO ADM SS Eosinophil, Absolute 0.0 103/mcL Normal 0.0 - 0 .4 10^3/mcL AO Workflow SS Eosinophils/100 WBC (Bld) 0.5 % Normal 0. 0 - 7.0 % AO Workflow SS Erythrocyte distribution width (RBC) [Ratio] 14.2 % Normal 11.5 - 14.5 % AO Workflow SS GFR/1.73 sq M.predicted among blacks MDRD (S/P/Bld) [Vol rate/Area] 91 ml/min/1.73sqm Invalid Interpretation Code AO Chemistry S Comment on above: Interpretive Data: GFR Population mean for , Non- Americans Ages 20-29 = 116 mL/min/1.73 sq.m. Ages 30-39 = 107 mL/min/1.73 sq.m. Ages 40-49 = 99 mL/min/1.73 sq.m. Ages 50-59 = 93 mL/min/1.73 sq.m. Ages 60-69 = 85 mL/min/1.73 sq.m. Ages 70+ = 75 mL/min/1.73 sq.m. Chronic Kidney Disease: Less than 60 mL/min/1.73 square meters End Stage Renal Disease: Less than 15 mL/min/1.73 square meters GFR/1.73 sq M.predicted among non-blacks MDRD (S/P/Bld) [Vol rate/Area] 75 ml/min/1.73sqm Invalid Interpretation Code AO Chemistry S Comment on above: Interpretive Data: GFR Population mean for , Non- Americans Ages 20-29 = 116 mL/min/1.73 sq.m. Ages 30-39 = 107 mL/min/1.73 sq.m. Ages 40-49 = 99 mL/min/1.73 sq.m. Ages 50-59 = 93 mL/min/1.73 sq.m. Ages 60-69 = 85 mL/min/1.73 sq.m. Ages 70+ = 75 mL/min/1.73 sq.m. Chronic Kidney Disease: Less than 60 mL/min/1.73 square meters End Stage Renal Disease: Less than 15 mL/min/1.73 square meters Globulin 2.8 G/dL Invalid Interpretation Code AO ADM SS Glucose [Mass/Vol] 75 mg/dL Low 80 - 115 mg/dL AO ADM SS Hematocrit (Bld) [Volume fraction] 36.6 % Low 42.0 - 52.0 % AO Workflow SS Hemoglobin (Bld) [Mass/Vol] 12.3 G/dL Low 14.0 - 18.0 G/dL AO Workflow SS Lipase [Catalytic activity/Vol] 19 U/L Normal 16 - 77 U/L AO ADM SS Lymphocyte, Absolute 1.0 103/mcL Normal 0.8 - 3 .9 10^3/mcL AO Workflow SS Lymphocytes/100 WBC (Bld) 14.5 % Normal 10 .0 - 50.0 % AO Workflow SS MCH (RBC) [Entitic mass] 31.5 pg High 27. 0 - 31.2 pg AO Workflow SS MCHC 33.7 G/dL Normal 31.8 - 35.4 G/dL AO Workflow SS MCV (RBC) [Entitic vol] 93.3 fL Normal 80.0 - 94.0 fL AO Workflow SS Monocyte, Absolute 0.6 103/mcL Normal 0.2 - 1.0 10^3/mcL AO Workflow SS Monocytes/100 WBC (Bld) 9.1 % Normal 1.7 - 13.0 % AO Workflow SS Natriuretic peptide.B prohormone N-Terminal [Mass/Vol] 1116 pg/mL High 0 - 125 pg/mL AO ADM SS Comment on above: Interpretive Data: N T-proBNP results of less than 300 pg/mL effectively rules out acute congestive heart failure with 99% negative predictive value. Neutrophil, Absolute 5.2 103/mcL Normal 2.9 - 6 .2 10^3/mcL AO Workflow SS Neutrophils/100 WBC (Bld) 75.1 % Normal 37 .0 - 80.0 % AO Workflow SS Platelet mean volume (Bld) [Entitic vol] 9.8 fL Normal 7.4 - 10.4 fL AO Workflow SS Platelets (Bld) [#/Vol] 148 103/mcL Normal 130 - 400 10^3/mcL AO Workflow SS Potassium [Moles/Vol] 4.3 mmol/L Normal 3.5 - 5.1 mmol/L AO ADM SS Protein [Mass/Vol] 6.1 G/dL Low 6.4 - 8.2 G/dL AO ADM SS RBC (Bld) [#/Vol] 3.92 106/mcL Low 4.04 - 6.13 10^6/mcL AO Workflow SS Sodium [Moles/Vol] 138 mmol/L Normal 136 - 145 mmol/L AO ADM SS TSH Qn 1.04 m[IU]/L Normal 0.36 - 3.74 mcIU/mL AO ADM SS Urea nitrogen [Mass/Vol] 16 mg/dL Normal 7 - 18 mg/dL AO ADM SS Urea nitrogen/Creatinine [Mass ratio] 16 ratio Normal 7 - 27 ratio AO ADM SS WBC (Bld) [#/Vol] 7.0 103/mcL Normal 4.6 - 10.8 10^3/mcL AO Workflow SS LIPon 02-10-2024 Lipase Level 19 U/L Normal 16-77 [facility] ([place]) Comment on above: Performed By: #### C MP, LIP, ANEU, GFR, CBC, ADIFF, PBNP, TSHR, BILAI ####[facility] [place] [id number] Laboratory - Chemistry and C hemistry - challengeOrdered By: SYSTEM SYSTEM on 02-10-2024 Bilirubin [Mass/Vol] 1.5 mg/dL High 0.2 - 1 .0 mg/dL AO ADM SS Comment on above: Interpretive Data: U se of this assay is not recommended for patients undergoing treatment with eltrombopag due to the potential for falsely elevated results. PBNPon 02-10-2024 Natriuretic peptide B (Bld) [Mass/Vol] 1116 pg/mL High 0-125 [facility] ([place]) Comment on above: Result Comment: NT-p roBNP results of less than 300 pg/mL effectively rules out acute congestive heart failure with 99% negative predictive value. Performed By: #### C MP, LIP, ANEU, GFR, CBC, ADIFF, PBNP, TSHR, BILAI ####[id number] [place], [place] [address] TSHRon 02-10-2024 TSH Qn 1.04 m[IU]/L Normal 0.36-3.74 [facility] ([place]) Comment on above: Performed By: #### C MP, LIP, ANEU, GFR, CBC, ADIFF, PBNP, TSHR, BILAI ####[id number] [place], [place] [address] Alanine aminotransferase (AL T) assayOrdered By: Sukhjinder Pinto on 12-11-2023 ALT [Catalytic activity/Vol] 15 U/L Low 16-61 [facility] Albumin Elph [Mass/Vol]Order ed By: Sukhjinder Pinto on 12-11-2023 Albumin [Mass/Vol] 3.4 g/dL 2.9-4.4 [facility] Albumin to globulin ratioOrd ered By: Sukhjinder Pinto on 12-11-2023 Albumin/Globulin [Mass ratio] 0.9 {ratio} 0.9-2.4 [facility] Alkaline phosphataseOrdered By: Sukhjinder iPnto on 12-11-2023 ALP [Catalytic activity/Vol] 83 U/L 45-117 [facility] Bilirubin, totalOrdered By: Sukhjinder Pinto on 12-11-2023 Bilirubin [Mass/Vol] 1.40 mg/dL High 0.20-1.[address] [facility] Comment on above: For patients on eltr ombopag therapy, use of Dimension Evangeline TBIL is not recommended. Blood urea nitrogen (BUN)/cr eatinine ratioOrdered By: Sukhjinder Pinto on 12-11-2023 Urea nitrogen/Creatinine [Mass ratio] 17.9 mg/mg 10-20 [facility] Carbon dioxide measurementOr dered By: Sukhjinder Pinto on 12-11-2023 CO2 [Moles/Vol] 30.0 mmol/L 21.0-32.0 [facility] Chloride measurementOrdered By: Sukhjinder Pinto on 12-11-2023 Chloride [Moles/Vol] 102 mmol/L 98-[address] [facility] Glomerular filtration rate ( GFR) estimationOrdered By: Sukhjinder Pinto on 12-11-2023 GFR/1.73 sq M.predicted among non-blacks MDRD (S/P/Bld) [Vol rate/Area] 84 mL/min/{1.73_m2} >60 [facility] Comment on above: Non- GFR Calc Glucose measurementOrdered B y: Sukhjinder Pinto on 12-11-2023 Glucose [Mass/Vol] 80 mg/dL 74-106 [facility] Interpretation of serum or p lasma protein pattern by immunofixation (narrative resultOrdered By: Sukhjinder Pinto on 12-11-2023 Protein Fractions Immunofixation Jeff [Interp] Not Observed g/dL Not Observed [facility] Iron measurement (mass/mass) Ordered By: Sukhjinder Pinto on 12-11-2023 Iron (Unsp spec) [Mass/Mass] 55 ug/dL Low 65-175 [facility] Laboratory - Chemistry and C hemistry - challengeOrdered By: Sukhjinder Pinto on 12-11-2023 AST [Catalytic activity/Vol] 14 U/L Low 15-37 [facility] No Panel InformationOrdered By: Sukhjinder Pinto on 12-11-2023 Addendum Document Comment . [facility] Comment on above: Protein electrophore sis scan will follow via computer,mail, or chicken buyer delivery.Performed at: [address] [id number] Director: Yaya Irving PhD, Phone: [phone] Potassium measurementOrdered By: Sukhjinder Pinto on 12-11-2023 Potassium [Moles/Vol] 3.3 mmol/L Low 3.5-5.1 [facility] Serum albumin measurementOrd ered By: Sukhjinder Pinto on 12-11-2023 Albumin [Mass/Vol] 3.2 g/dL 3.2-5.0 [facility] Serum anion gap measurementO rdered By: Sukhjinder Pinto on 12-11-2023 Anion gap [Moles/Vol] 5 mmol/L 5-15 [facility] Serum globulin measurement ( mass/volume)Ordered By: Sukhjinder Pinto on 12-11-2023 Globulin (S) [Mass/Vol] 2.8 g/dL 2.2-3.9 [facility] Serum or plasma IgA measurem ent (mass/volume)Ordered By: Sukhjinder Pinto on 12-11-2023 IgA [Mass/Vol] 160 mg/dL 61-437 [facility] Serum or plasma IgG measurem ent (mass/volume)Ordered By: Sukhjinder Pinto on 12-11-2023 IgG [Mass/Vol] 1193 mg/dL 603-1613 [facility] Serum or plasma alpha 1 glob ulin measurement by electrophoresis (mass/volume)Ordered By: Sukhjinder Pinto on 12-11-2023 Alpha 1 globulin Elph [Mass/Vol] 0.2 g/dL 0.0-0.4 [facility] Alpha 1 globulin Elph [Mass/Vol] 0.6 g/dL 0.4-1.0 [facility] Serum or plasma beta globuli n measurement by electrophoresis (mass/volume)Ordered By: Sukhjinder Pinto on 12-11-2023 Beta globulin Elph [Mass/Vol] 0.8 g/dL 0.7-1.3 [facility] Serum or plasma calcium gilma urement (mass/volume)Ordered By: Sukhjinder Pinto on 12-11-2023 Calcium [Mass/Vol] 9.2 mg/dL 8.5-10.1 [facility] Serum or plasma creatinine m easurement (mass/volume)Ordered By: Sukhjinder Pinto on 12-11-2023 Creatinine [Mass/Vol] 0.95 mg/dL 0.70-1.30 [facility] Comment on above: The validity of the calculated GFR & GFRAA in patients over 70 years has not been determined. Clinical correlation is essential. Serum or plasma gamma globul in measurement by electrophoresis (mass/volume)Ordered By: Sukhjinder Pinto on 12-11-2023 Gamma globulin Elph [Mass/Vol] 1.1 g/dL 0.4-1.8 [facility] Serum or plasma immunoelectr ophoresis interpretation (nominal result)Ordered By: Sukhjinder Pinto on 12-11-2023 Interpretation IEP [Interp] Comment: . [facility] Comment on above: Presence of monoclon al protein is unclear at this time. Suggestrepeat in 3 to 6 months if clinically indicated. Serum or plasma iron saturat ion measurement (mass fraction)Ordered By: Sukhjinder Pinto on 12-11-2023 Iron saturation [Mass fraction] 16.2 % 15.0-55.0 [facility] Serum or plasma protein gilma urement (mass/volume)Ordered By: Sukhjinder Pinto on 12-11-2023 Protein [Mass/Vol] 6.2 g/dL 6.0-8.5 [facility] Serum or plasma urea nitroge n measurement (mass/volume)Ordered By: Sukhjinder Pinto on 12-11-2023 Urea nitrogen [Mass/Vol] 17 mg/dL 7-18 [facility] Sodium levelOrdered By: Mary Kate Pinto on 12-11-2023 Sodium [Moles/Vol] 137 mmol/L 136-145 [facility] Total proteinOrdered By: Gray Pinto on 12-11-2023 Protein [Mass/Vol] 6.6 g/dL 6.4-8.2 [facility] LABORATORYOrdered By: Ioana Burrows on 11-12-2023 Albumin DL <= 20 mg/L (U) [Mass/Vol] 1599 mcg/dL Invalid Interpretation Code AO ADM SS Albumin/Creatinine DL <= 20 mg/L (U) [Mass ratio] 8 mcg/mg Normal 0 - 30 mcg/mg AO ADM SS Creatinine (U) [Mass/Vol] 203.9 mg/dL Normal 39 .0 - 259.0 mg/dL AO ADM SS MALBRon 11-12-2023 U Creatinine 203.9 mg/dL Normal 39.0-259.0 [facility] ([place]) Comment on above: Performed By: #### M ALBR ####[id number] [place], [place] [address] U Microalb 1599 mcg/dL Normal [facility] ([place]) Comment on above: Performed By: #### M ALBR ####[address] [place], [place] [address] U Ratio Alb/Cre 8 mcg/mg Normal 0-30 [facility] ([place]) Comment on above: Performed By: #### M ALBR ####[address] [place], [place] [address] Absolute lymphocyte countOrd ered By: Kevin Junior on 09-04-2023 Lymphocytes Auto (Unsp spec) [#/Vol] 1.36 10*3/uL 0.83-4.51 [facility] Automated lymphocyte count a s percentage of total leukocytesOrdered By: Kevin Junior on 09-04-2023 Lymphocytes/100 WBC Auto (Unsp spec) 20.5 % 19-41 [facility] Basophil percentageOrdered B y: Kevin Junior on 09-04-2023 Basophils/100 WBC (Bld) 1.1 % 0-1 [facility] Bilirubin [Mass/Vol] 0.90 mg/dL 0.20-1.[address] [facility] Comment on above: For patients on eltr ombopag therapy, use of Dimension Evangeline TBIL is not recommended. Chloride [Moles/Vol] 102 mmol/L 98-[address] [facility] Eosinophils/100 WBC (Bld) 1.8 % 0-5 [facility] Glucose [Mass/Vol] 86 mg/dL 74-106 [facility] Hemoglobin (Bld) [Mass/Vol] 12.3 g/dL 13.0-16. 5 [facility] Monocytes/100 WBC (Bld) 13.1 % 0-10 [facility] Neutrophils (Bld) [#/Vol] 4.2 10*3/uL 2.0-7.7 [facility] Neutrophils/100 WBC (Bld) 63.0 % 47-70 [facility] Potassium [Moles/Vol] 4.1 mmol/L 3.5-5.1 [facility] Protein [Mass/Vol] 6.8 g/dL 6.4-8.2 [facility] Sodium [Moles/Vol] 138 mmol/L 136-145 [facility] WBC (Bld) [#/Vol] 6.6 10*3/uL 4.4-11.0 [facility] Determination of erythrocyte mean corpuscular volume (MCV)Ordered By: Kevin Junior on 09-04-2023 MCV (RBC) [Entitic vol] 93.1 fL 80-94 [facility] Erythrocyte distribution wid th ratioOrdered By: Kevin Junior on 09-04-2023 Erythrocyte distribution width (RBC) [Ratio] 13.1 % 11.6-14.6 [facility] Erythrocyte distribution wid th standard deviationOrdered By: Keivn Junior on 09-04-2023 Erythrocyte distribution width (RBC) [Entitic vol] 44.6 fL 35.1-43.9 [facility] Erythrocyte sedimentation ra teOrdered By: Kevin Junior on 09-04-2023 ESR (Bld) [Velocity] 5 mm/h 0-[address] [facility] Hematocrit Auto (Bld) [Volum e fraction]Ordered By: Kevin Junior on 09-04-2023 Hematocrit (Bld) [Volume fraction] 39.1 % 40-54 [facility] Immature granulocytes/100 WB C Auto (Bld)Ordered By: Kevin Junior on 09-04-2023 Immature granulocytes/100 WBC (Bld) 0.500 % 0.0-0.9 [facility] Comment on above: IG% - Immature Granu locytes (promyelocytes, myelocytes and metamyelocytes) > 1% indicates that a LEFT SHIFT is Present. Laboratory - Chemistry and C hemistry - challengeOrdered By: Kevin Junior on 09-04-2023 Albumin/Globulin [Mass ratio] 1.0 {ratio} 0.9-2.4 [facility] ALP [Catalytic activity/Vol] 105 U/L 45-117 [facility] ALT [Catalytic activity/Vol] 19 U/L 16-61 [facility] CO2 [Moles/Vol] 29.0 mmol/L 21.0-32.0 [facility] Globulin (S) [Mass/Vol] 3.4 g/dL 2.2-4.2 [facility] Urea nitrogen/Creatinine [Mass ratio] 11.1 mg/mg 10-20 [facility] Laboratory - Hematology and Cell countsOrdered By: Kevin Junior on 09-04-2023 MCH (RBC) [Entitic mass] 29.3 pg 27.0-32.0 [facility] MCHC (RBC) [Mass/Vol] 31.5 g/dL 32-36 [facility] Nucleated RBC/100 WBC (Bld) [Ratio] 0 % 0-5 [facility] Platelet mean volume (Bld) [Entitic vol] 12.1 fL 6.2-12.0 [facility] Platelets (Bld) [#/Vol] 156 10*3/uL 150-450 [facility] No Panel InformationOrdered By: Kevin Junior on 09-04-2023 C-Reactive Protein Extended Range < 2.90 mg/L 0.0-3.0 [facility] Comment on above: C-Reactive Protein ( CRP) provides useful information for thediagnosis, therapy and monitoring of inflammatory processesand associated diseases. For the evaluation of Relative Riskfor Cardiovascular Disease, a High Sensitivity CRP (HSCRP)should be ordered. Estimated GFR (MDRD) Amer 80 mL/min >60 [facility] Comment on above: GFR Calc Estimated GFR (MDRD) Non-Af Amer 66 mL/min >60 [facility] Comment on above: Non- GFR Calc RBC Auto (Bld) [#/Vol]Ordere d By: Kevin Junior on 09-04-2023 RBC (Bld) [#/Vol] 4.20 10*6/uL 4.6-6.2 [facility] Serum or plasma calcium gilma urement (mass/volume)Ordered By: Kevin Junior on 09-04-2023 Calcium [Mass/Vol] 9.4 mg/dL 8.5-10.1 [facility] Serum or plasma creatinine m easurement (mass/volume)Ordered By: Kevin Junior on 09-04-2023 Creatinine [Mass/Vol] 1.17 mg/dL 0.70-1.30 [facility] Comment on above: The validity of the calculated GFR & GFRAA in patients over 70 years has not been determined. Clinical correlation is essential. Serum or plasma urea nitroge n measurement (mass/volume)Ordered By: Kevin Junior on 09-04-2023 Urea nitrogen [Mass/Vol] 13 mg/dL 7-18 [facility] Thin prep Papanicolaou smear with manual screeningOrdered By: Kevin Junior on 09-04-2023 Thin prep Papanicolaou smear with manual screening 3.4 g/dL 3.2-5.[address] [facility] Thin prep Papanicolaou smear with manual screening 27 U/L 15-[address] [facility] Thin prep Papanicolaou smear with manual screening 7 5-[address] [facility] PSAon 08-15-2023 Prostate Specific Antigen 0.44 ng/mL Normal 0.00-4.00 [facility] ([place]) Comment on above: Performed By: #### C MP, PSA, PBNP, GFR, CBC, ADIFF, ANEU ####[place] [address]#### B12 ####[address] [address] .Auto Diffon 08-14-2023 Basophil, Absolute 0.1 10 3/mcL Normal 0.0-0.2 [facility] ([place]) Comment on above: Performed By: #### C MP, PSA, PBNP, GFR, CBC, ADIFF, ANEU ####[place] [address]#### B12 ####[address] [address] Basophils/100 WBC (Bld) 0.7 % Normal 0.0-2.5 [facility] ([place]) Comment on above: Performed By: #### C MP, PSA, PBNP, GFR, CBC, ADIFF, ANEU ####[place] [id number]#### B12 ####[address] [address] Eosinophil, Absolute 0.1 10 3/mcL Normal 0.0-0.4 [facility] ([place]) Comment on above: Performed By: #### C MP, PSA, PBNP, GFR, CBC, ADIFF, ANEU ####[place] [address]#### B12 ####[address] [address] Eosinophils/100 WBC (Bld) 0.7 % Normal 0.0-7.0 [facility] ([place]) Comment on above: Performed By: #### C MP, PSA, PBNP, GFR, CBC, ADIFF, ANEU ####[place] [address]#### B12 ####[address] [address] Lymphocyte, Absolute 1.2 10 3/mcL Normal 0.8-3.9 [facility] ([place]) Comment on above: Performed By: #### C MP, PSA, PBNP, GFR, CBC, ADIFF, ANEU ####[place] [address]#### B12 ####[address] [address] Lymphocytes/100 WBC (Bld) 13.7 % Normal 10.0-50.0 [facility] ([place]) Comment on above: Performed By: #### C MP, PSA, PBNP, GFR, CBC, ADIFF, ANEU ####[place] [address]#### B12 ####[address] [address] Monocyte, Absolute 0.8 10 3/mcL Normal 0.2-1.0 [facility] ([place]) Comment on above: Performed By: #### C MP, PSA, PBNP, GFR, CBC, ADIFF, ANEU ####[place] [address]#### B12 ####[address] [address] Monocytes/100 WBC (Bld) 9.3 % Normal 1.7-13.0 A [facility] ([place]) Comment on above: Performed By: #### C MP, PSA, PBNP, GFR, CBC, ADIFF, ANEU ####[place] [id number]#### B12 ####[address] [address] Neutrophils/100 WBC (Bld) 75.6 % Normal 37.0-80.0 [facility] ([place]) Comment on above: Performed By: #### C MP, PSA, PBNP, GFR, CBC, ADIFF, ANEU ####[place] [address]#### B12 ####[address] [address] .GFRon 08-14-2023 GFR 49 ml/min/1.73sqm Normal [facility] ([place]) Comment on above: Result Comment: GFR Population mean for , Non- Americans Ages 20-29 = 116 mL/min/1.73 sq.m. Ages 30-39 = 107 mL/min/1.73 sq.m. Ages 40-49 = 99 mL/min/1.73 sq.m. Ages 50-59 = 93 mL/min/1.73 sq.m. Ages 60-69 = 85 mL/min/1.73 sq.m. Ages 70+ = 75 mL/min/1.73 sq.m. Chronic Kidney Disease: Less than 60 mL/min/1.73 square meters End Stage Renal Disease: Less than 15 mL/min/1.73 square meters Performed By: #### C MP, PSA, PBNP, GFR, CBC, ADIFF, ANEU ####[place] [id number] [place] [id number]#### B12 ####[address] [address] GFR Non- 40 ml/min/1.73sqm Normal [facility] ([place]) Comment on above: Result Comment: GFR Population mean for , Non- Americans Ages 20-29 = 116 mL/min/1.73 sq.m. Ages 30-39 = 107 mL/min/1.73 sq.m. Ages 40-49 = 99 mL/min/1.73 sq.m. Ages 50-59 = 93 mL/min/1.73 sq.m. Ages 60-69 = 85 mL/min/1.73 sq.m. Ages 70+ = 75 mL/min/1.73 sq.m. Chronic Kidney Disease: Less than 60 mL/min/1.73 square meters End Stage Renal Disease: Less than 15 mL/min/1.73 square meters Performed By: #### C MP, PSA, PBNP, GFR, CBC, ADIFF, ANEU ####[place] [address]#### B12 ####[place] [address] .NEUABSon 08-14-2023 Neutrophil, Absolute 6.5 10 3/mcL High 2.9-6.2 [facility] ([place]) Comment on above: Performed By: #### C MP, PSA, PBNP, GFR, CBC, ADIFF, ANEU ####[place] [address]#### B12 ####[place] [address] B12on 08-14-2023 Cobalamin (Vitamin B12) [Mass/Vol] 1746 pg/mL High 211-911 [facility] ([place]) Comment on above: Performed By: #### C MP, PSA, PBNP, GFR, CBC, ADIFF, ANEU ####[place] [address]#### B12 ####[place] [address] CBCon 08-14-2023 Erythrocyte distribution width (RBC) [Ratio] 13.7 % Normal 11.5-14.5 [facility] ([place]) Comment on above: Performed By: #### C MP, PSA, PBNP, GFR, CBC, ADIFF, ANEU ####[place] [address]#### B12 ####[place] [address] Hematocrit (Bld) [Volume fraction] 36.9 % Low 42.0-52.0 [facility] ([place]) Comment on above: Performed By: #### C MP, PSA, PBNP, GFR, CBC, ADIFF, ANEU ####[place] [address]#### B12 ####[place] [address] Hgb 12.5 G/dL Low 14.0-18.0 [facility] ([place]) Comment on above: Performed By: #### C MP, PSA, PBNP, GFR, CBC, ADIFF, ANEU ####[place] [address]#### B12 ####[place] [address] MCH (RBC) [Entitic mass] 30.6 pg Normal 27.0-31.2 [facility] ([place]) Comment on above: Performed By: #### C MP, PSA, PBNP, GFR, CBC, ADIFF, ANEU ####[place] [address]#### B12 ####[place] [address] MCHC 33.8 G/dL Normal 31.8-35.4 [facility] ([place]) Comment on above: Performed By: #### C MP, PSA, PBNP, GFR, CBC, ADIFF, ANEU ####[place] [address]#### B12 ####[place] [address] MCV (RBC) [Entitic vol] 90.6 fL Normal 80.0-94.0 A [facility] ([place]) Comment on above: Performed By: #### C MP, PSA, PBNP, GFR, CBC, ADIFF, ANEU ####[place] [address]#### B12 ####[place] [address] Platelet 163 10 3/mcL Normal 130-400 [facility] ([place]) Comment on above: Performed By: #### C MP, PSA, PBNP, GFR, CBC, ADIFF, ANEU ####[place] [address]#### B12 ####[place] [address] Platelet mean volume (Bld) [Entitic vol] 10.7 fL High 7.4-10.4 [facility] ([place]) Comment on above: Performed By: #### C MP, PSA, PBNP, GFR, CBC, ADIFF, ANEU ####[place] [address]#### B12 ####[place] [address] RBC 4.07 10 6/mcL Normal 4.04-6.13 [facility] ([place]) Comment on above: Performed By: #### C MP, PSA, PBNP, GFR, CBC, ADIFF, ANEU ####[place] [address]#### B12 ####[place] [address] WBC 8.6 10 3/mcL Normal 4.6-10.8 [facility] ([place]) Comment on above: Performed By: #### C MP, PSA, PBNP, GFR, CBC, ADIFF, ANEU ####[place] [address]#### B12 ####[place] [address] CMPon 08-14-2023 Albumin Level 3.4 G/dL Normal 3.4-4.8 [facility] ([place]) Comment on above: Performed By: #### C MP, PSA, PBNP, GFR, CBC, ADIFF, ANEU ####[place] [address]#### B12 ####[address] [address] Albumin/Globulin [Mass ratio] 1.0 {ratio} Low 1.1-2.5 [facility] ([place]) Comment on above: Performed By: #### C MP, PSA, PBNP, GFR, CBC, ADIFF, ANEU ####[place] [address]#### B12 ####[place] [address] ALP [Catalytic activity/Vol] 119 U/L Normal 40-135 [facility] ([place]) Comment on above: Performed By: #### C MP, PSA, PBNP, GFR, CBC, ADIFF, ANEU ####[place] [address]#### B12 ####[place] [address] ALT [Catalytic activity/Vol] 14 U/L Low 16-63 [facility] ([place]) Comment on above: Performed By: #### C MP, PSA, PBNP, GFR, CBC, ADIFF, ANEU ####[place] [address]#### B12 ####[place] [address] AST [Catalytic activity/Vol] 17 U/L Normal 10-40 [facility] ([place]) Comment on above: Performed By: #### C MP, PSA, PBNP, GFR, CBC, ADIFF, ANEU ####[place] [address]#### B12 ####[place] [address] Bili Total 0.7 mg/dL Normal 0.2-1.0 [facility] ([place]) Comment on above: Result Comment: Use of this assay is not recommended for patients undergoing treatment with eltrombopag due to the potential for falsely elevated results. Performed By: #### C MP, PSA, PBNP, GFR, CBC, ADIFF, ANEU ####[address] [address]#### B12 ####[address] [address] BUN/Creatinine Ratio 11 ratio Normal 7-27 [facility] ([place]) Comment on above: Performed By: #### C MP, PSA, PBNP, GFR, CBC, ADIFF, ANEU ####[place] [address]#### B12 ####[address] [address] Calcium [Mass/Vol] 9.5 mg/dL Normal 8.4-10.2 [facility] ([place]) Comment on above: Performed By: #### C MP, PSA, PBNP, GFR, CBC, ADIFF, ANEU ####[place] [address]#### B12 ####[address] [address] Chloride [Moles/Vol] 100 mmol/L Normal 98-107 [facility] ([place]) Comment on above: Performed By: #### C MP, PSA, PBNP, GFR, CBC, ADIFF, ANEU ####[place] [address]#### B12 ####[address] [address] CO2 [Moles/Vol] 27 mmol/L Normal 23-31 [facility] ([place]) Comment on above: Performed By: #### C MP, PSA, PBNP, GFR, CBC, ADIFF, ANEU ####[place] [address]#### B12 ####[address] [address] Creatinine [Mass/Vol] 1.69 mg/dL High 0.70-1.30 [facility] ([place]) Comment on above: Performed By: #### C MP, PSA, PBNP, GFR, CBC, ADIFF, ANEU ####[place] [address]#### B12 ####[address] [address] Electrolyte Balance 13.0 mEq/L Normal 4.0-15.0 [facility] ([place]) Comment on above: Performed By: #### C MP, PSA, PBNP, GFR, CBC, ADIFF, ANEU ####[place] [id number] [place] [address]#### B12 ####[place] [address] Globulin 3.3 G/dL Normal [facility] ([place]) Comment on above: Performed By: #### C MP, PSA, PBNP, GFR, CBC, ADIFF, ANEU ####[place] [address]#### B12 ####[place] [address] Glucose [Mass/Vol] 74 mg/dL Low 80-115 [facility] ([place]) Comment on above: Performed By: #### C MP, PSA, PBNP, GFR, CBC, ADIFF, ANEU ####[place] [address]#### B12 ####[place] [address] Potassium [Moles/Vol] 4.1 mmol/L Normal 3.5-5.1 [facility] ([place]) Comment on above: Performed By: #### C MP, PSA, PBNP, GFR, CBC, ADIFF, ANEU ####[place] [address]#### B12 ####[address] [address] Sodium [Moles/Vol] 140 mmol/L Normal 136-145 [facility] ([place]) Comment on above: Performed By: #### C MP, PSA, PBNP, GFR, CBC, ADIFF, ANEU ####[place] [address]#### B12 ####[address] [address] Total Protein 6.7 G/dL Normal 6.4-8.2 [facility] ([place]) Comment on above: Performed By: #### C MP, PSA, PBNP, GFR, CBC, ADIFF, ANEU ####[address] [place], [place] [address]#### B12 ####[place] [address] Urea nitrogen [Mass/Vol] 19 mg/dL High 7-18 [facility] ([place]) Comment on above: Performed By: #### C MP, PSA, PBNP, GFR, CBC, ADIFF, ANEU ####[address] [place] [address]#### B12 ####[place] [address] LABORATORYOrdered By: SYSTEM SYSTEM on 08-14-2023 Albumin BCP dye [Mass/Vol] 3.4 G/dL Normal 3 .4 - 4.8 G/dL AO ADM SS Albumin/Globulin [Mass ratio] 1.0 {ratio} Low 1.1 - 2.5 ratio AO ADM SS ALP [Catalytic activity/Vol] 119 U/L Normal 40 - 135 U/L AO ADM SS ALT With P-5'-P [Catalytic activity/Vol] 14 U/L Low 16 - 63 U/L AO ADM SS AST With P-5'-P [Catalytic activity/Vol] 17 U/L Normal 10 - 40 U/L AO ADM SS Basophil, Absolute 0.1 103/mcL Normal 0.0 - 0.2 10^3/mcL AO Workflow SS Basophils/100 WBC (Bld) 0.7 % Normal 0.0 - 2.5 % AO Workflow SS Bilirubin [Mass/Vol] 0.7 mg/dL Normal 0.2 - 1 .0 mg/dL AO ADM SS Comment on above: Interpretive Data: U se of this assay is not recommended for patients undergoing treatment with eltrombopag due to the potential for falsely elevated results. Calcium [Mass/Vol] 9.5 mg/dL Normal 8.4 - 10. 2 mg/dL AO ADM SS Chloride [Moles/Vol] 100 mmol/L Normal 98 - 10 7 mmol/L AO ADM SS CO2 [Moles/Vol] 27 mmol/L Normal 23 - 31 mmol/L AO ADM SS Cobalamin (Vitamin B12) [Mass/Vol] 1746 pg/mL High 211 - 911 pg/mL AH ADM SS Creatinine [Mass/Vol] 1.69 mg/dL High 0.70 - 1.30 mg/dL AO ADM SS Electrolyte Balance 13.0 mEq/L Normal 4.0 - 15 .0 mEq/L AO ADM SS Eosinophil, Absolute 0.1 103/mcL Normal 0.0 - 0 .4 10^3/mcL AO Workflow SS Eosinophils/100 WBC (Bld) 0.7 % Normal 0. 0 - 7.0 % AO Workflow SS Erythrocyte distribution width (RBC) [Ratio] 13.7 % Normal 11.5 - 14.5 % AO Workflow SS GFR/1.73 sq M.predicted among blacks MDRD (S/P/Bld) [Vol rate/Area] 49 ml/min/1.73sqm Invalid Interpretation Code AO Chemistry S Comment on above: Interpretive Data: GFR Population mean for , Non- Americans Ages 20-29 = 116 mL/min/1.73 sq.m. Ages 30-39 = 107 mL/min/1.73 sq.m. Ages 40-49 = 99 mL/min/1.73 sq.m. Ages 50-59 = 93 mL/min/1.73 sq.m. Ages 60-69 = 85 mL/min/1.73 sq.m. Ages 70+ = 75 mL/min/1.73 sq.m. Chronic Kidney Disease: Less than 60 mL/min/1.73 square meters End Stage Renal Disease: Less than 15 mL/min/1.73 square meters GFR/1.73 sq M.predicted among non-blacks MDRD (S/P/Bld) [Vol rate/Area] 40 ml/min/1.73sqm Invalid Interpretation Code AO Chemistry S Comment on above: Interpretive Data: GFR Population mean for , Non- Americans Ages 20-29 = 116 mL/min/1.73 sq.m. Ages 30-39 = 107 mL/min/1.73 sq.m. Ages 40-49 = 99 mL/min/1.73 sq.m. Ages 50-59 = 93 mL/min/1.73 sq.m. Ages 60-69 = 85 mL/min/1.73 sq.m. Ages 70+ = 75 mL/min/1.73 sq.m. Chronic Kidney Disease: Less than 60 mL/min/1.73 square meters End Stage Renal Disease: Less than 15 mL/min/1.73 square meters Globulin 3.3 G/dL Invalid Interpretation Code AO ADM SS Glucose [Mass/Vol] 74 mg/dL Low 80 - 115 mg/dL AO ADM SS Hematocrit (Bld) [Volume fraction] 36.9 % Low 42.0 - 52.0 % AO Workflow SS Hemoglobin (Bld) [Mass/Vol] 12.5 G/dL Low 14.0 - 18.0 G/dL AO Workflow SS Lymphocyte, Absolute 1.2 103/mcL Normal 0.8 - 3 .9 10^3/mcL AO Workflow SS Lymphocytes/100 WBC (Bld) 13.7 % Normal 10 .0 - 50.0 % AO Workflow SS MCH (RBC) [Entitic mass] 30.6 pg Normal 27. 0 - 31.2 pg AO Workflow SS MCHC 33.8 G/dL Normal 31.8 - 35.4 G/dL AO Workflow SS MCV (RBC) [Entitic vol] 90.6 fL Normal 80.0 - 94.0 fL AO Workflow SS Monocyte, Absolute 0.8 103/mcL Normal 0.2 - 1.0 10^3/mcL AO Workflow SS Monocytes/100 WBC (Bld) 9.3 % Normal 1.7 - 13.0 % AO Workflow SS Natriuretic peptide.B prohormone N-Terminal [Mass/Vol] 944 pg/mL High 0 - 125 pg/mL AO ADM SS Comment on above: Interpretive Data: N T-proBNP results of less than 300 pg/mL effectively rules out acute congestive heart failure with 99% negative predictive value. Neutrophil, Absolute 6.5 103/mcL High 2.9 - 6 .2 10^3/mcL AO Workflow SS Neutrophils/100 WBC (Bld) 75.6 % Normal 37 .0 - 80.0 % AO Workflow SS Platelet mean volume (Bld) [Entitic vol] 10.7 fL High 7.4 - 10.4 fL AO Workflow SS Platelets (Bld) [#/Vol] 163 103/mcL Normal 130 - 400 10^3/mcL AO Workflow SS Potassium [Moles/Vol] 4.1 mmol/L Normal 3.5 - 5.1 mmol/L AO ADM SS Protein [Mass/Vol] 6.7 G/dL Normal 6.4 - 8.2 G/dL AO ADM SS RBC (Bld) [#/Vol] 4.07 106/mcL Normal 4.04 - 6.13 10^6/mcL AO Workflow SS Sodium [Moles/Vol] 140 mmol/L Normal 136 - 145 mmol/L AO ADM SS Urea nitrogen [Mass/Vol] 19 mg/dL High 7 - 18 mg/dL AO ADM SS Urea nitrogen/Creatinine [Mass ratio] 11 ratio Normal 7 - 27 ratio AO ADM SS WBC (Bld) [#/Vol] 8.6 103/mcL Normal 4.6 - 10.8 10^3/mcL AO Workflow SS PBNPon 08-14-2023 Natriuretic peptide B (Bld) [Mass/Vol] 944 pg/mL High 0-125 [facility] ([place]) Comment on above: Result Comment: NT-p roBNP results of less than 300 pg/mL effectively rules out acute congestive heart failure with 99% negative predictive value. Performed By: #### C MP, PSA, PBNP, GFR, CBC, ADIFF, ANEU ####[facility] [place], [place] [address]#### B12 ####[place] [address] XR FOOT MINIMUM 3 VIEWS LEFT on 08-06-2023 XR FOOT MINIMUM 3 VIEWS LEFT ORIGINAL EXAMINATION: THREE XRAY VIEWS OF THE LEFT FOOT 08/06/2023 4:48 pm COMPARISON: Radiograph of the left foot June 25, 2023 HISTORY: ORDERING SYSTEM PROVIDED HISTORY: Reason for Exam: cellulitis of left great toe 2-3 months, rule out osteomyelitits FINDINGS: Suboptimal evaluation due to diffuse osteopenia. Compared to prior exam, on the lateral view of the distal tuft of the big toe appears to be thinner. Soft tissue swelling. Plantar calcaneal spurring peripheral artery calcifications. IMPRESSION: Suboptimal exam due to diffuse osteopenia. Compared to prior exam, on the lateral view of the distal tuft of the big toe appears to be thinner, could be projectional although given reported history could reflect sequelae of osteomyelitis. Interpreted by: Jakob Mcgraw Preliminary Report By: Jakob Mcgraw Electronically signed By Jakob Mcgraw Dictated Date: 08/06/2023 5:09:47 PM Prelim Date: 08/06/2023 5:14:09 PM Sign Date: 08/06/2023 5:14:09 PM Ordering Provider: KASSANDRA LAUREANO [facility] ([place]) US THYROIDon 07-15-2023 US THYROID ORIGINAL EXAMINATION: ULTRASOUND OF THE THYROID WITH COLOR DOPPLER FLOW EVALUATION07/10/2023 1:37 pm Ultrasound Thyroid COMPARISON: None HISTORY: ORDERING SYSTEM PROVIDED HISTORY: Reason for Exam: Per tech sheet: Patient did not have an upper CT although patient told physician regarding nodule since age 30s. History of I-131 treatment 35-40 years ago, on Synthroid since. FINDINGS: No thyroid tissue is identified. There is a 1.2 x 1.0 x 1.3 cm hypoechoic circumscribed lesion with smooth margins at the inferior margin of the right thyroid area. No other abnormal lesions are identified within the region of the thyroid area. IMPRESSION: No thyroid tissue identified. Indeterminate 1.3 cm hypoechoic lesion at the inferior margin of the right thyroid area, CT scan is recommended to further evaluate, this could relate to a lymph node, mass or residual thyroid. I have personally reviewed the images of this examination and agree with the resident's findings and interpretations. Interpreted by: Erick Lr MD Preliminary Report By: Loli Rico Electronically signed By Erick Lr MD Dictated Date: 07/15/2023 10:07:44 AM Prelim Date: 07/15/2023 10:34:30 AM Sign Date: 07/15/2023 10:34:30 AM Ordering Provider: JAY EASTON [facility] ([place]) No Panel Informationon 07-03 Culture Wound Aerobe Rare normal skin fl ora present. Sensitivity testing not indicated. [facility] Work Phone: GS 1+ Gram Positive Fozia ci Rare Gram Positive Rods [facility] Work Phone: Supplemental Reporton 2023 Supplemental Report . Pathology Reports Accession: Collected Date/Time: Received Date/Time: Pathologist: [id number] 06/17/2023 14:52 EST 06/19/2023 08:37 RAMA FLORES MD Supplemental Report SUPPLEMENTAL: Specimen B: Slides reviewed. The atypical melanocytic lesion is 0.3 millimeter away from the nearest circumferential margin, as measured on the HMB45 immunostain. Electronically Signed by Pathology Report verified by [facility] RAMA KIRBY Sign out Date: 06/30/2023 12:08 Performing Lab: [facility], [address] [place] [address] Pathology Dept Final Surgical Pathology Report DIAGNOSIS: A. SKIN, RIGHT POSTERIOR UPPER LEG, EXCISION: - FIBROEPITHELIAL POLYP B. 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 The atypical melanocytes at the dermoepidermal junction are strongly positive for HMB45, show a moderately elevated Ki-67 proliferation index, and show focal loss of p16. PRAME is focally positive. SOX10 highlights a few intraepidermal atypical melanocytes, raising the possibility of melanoma in situ. The lesion is very close to the excision edges. Conservative reexcision to ensure complete removal of this lesion is recommended. Intradepartmental consultation: Dr. Macias, who concurs. CLINICAL INFORMATION: SUSPICIOUS PIGMENTED SKIN LESION, SHAVING OF STALK Procedure: SUSPICIOUS PIGMENTED SKIN LESION, SHAVING OF STALK Preoperative diagnosis: SUSPICIOUS PIGMENTED SKIN LESION Postoperative diagnosis: SUSPICIOUS PIGMENTED SKIN LESION SPECIMEN: A RIGHT POSTERIOR UPPER LEG B MID BACK GROSS DESCRIPTION: A. Received in formalin, labeled with the patients name, Case # [id number], and back of right knee is a white lobulated portion of skin measuring 5.5 x 4.4 x 3.2 cm. The excision margin is inked black. RS -2 B. Received in formalin and undesignated on the container is a kumar fragment of skin measuring 0.2 x 0.1 by less than 0.1 cm. Possible excision margin inked black. TS -1 Dictated by SERA BOX MICROSCOPIC DESCRIPTION: The microscopic examination is performed, except in the case of Gross Only. Pathology Reports Accession: Collected Date/Time: Received Date/Time: Pathologist: [id number] 06/17/2023 14:52 EST 06/19/2023 08:37 RAMA FLORES MD Electronically Signed by Pathology Report verified by [facility] RAMA KIRBY Sign out Date: 06/26/2023 09:06 Performing Lab: [facility], [facility] [address] [place] [address] Pathology Dept Disclaimer If ancillary studies were utilized, the following Laboratory Developed Test (LDT) disclaimer will apply: Under CLIA requirements, [facility] is qualified to perform high complexity testing. For all ancillary stains, positive and negative controls stain appropriately. Performance characteristics of immunohistochemical and chromogenic in-situ hybridization tests have been determined by [facility]. These tests are used for clinical purposes, They should not be regarded as investigational or for research. Normal [facility] ([place]) Absolute lymphocyte countOrd ered By: Behzad Glez on 06-28-2023 Lymphocytes Auto (Unsp spec) [#/Vol] 1.03 10*3/uL 0.83-4.51 [facility] Basophil percentageOrdered B y: Behzad Glez on 06-28-2023 Basophils/100 WBC (Bld) 0.5 % 0-1 [facility] Chloride [Moles/Vol] 109 mmol/L 98-107 [facility] Eosinophils/100 WBC (Bld) 1.2 % 0-5 [facility] Glucose [Mass/Vol] 91 mg/dL 74-106 [facility] Neutrophils (Bld) [#/Vol] 4.0 10*3/uL 2.0-7.7 [facility] Neutrophils/100 WBC (Bld) 67.5 % 47-70 [facility] Potassium [Moles/Vol] 4.3 mmol/L 3.5-5.1 [facility] Sodium [Moles/Vol] 141 mmol/L 136-145 [facility] WBC (Bld) [#/Vol] 5.9 10*3/uL 4.4-11.0 [facility] Blood erythrocytes count (nu mber/volume)Ordered By: Behzad Glez on 06-28-2023 RBC (Bld) [#/Vol] 3.58 10*6/uL 4.6-6.2 [facility] Blood hemoglobin measurement (mass/volume)Ordered By: Behzad Glez on 06-28-2023 Hemoglobin (Bld) [Mass/Vol] 11.0 g/dL 13.0-16. 5 [facility] Blood lymphocytes/100 leukoc ytesOrdered By: Behzad Glez on 06-28-2023 Lymphocytes/100 WBC (Bld) 17.4 % 19-41 [facility] Blood monocytes/100 leukocyt esOrdered By: Behzad Glez on 06-28-2023 Monocytes/100 WBC (Bld) 12.7 % 0-10 [facility] Blood platelet mean volumeOr dered By: Behzad Glez on 06-28-2023 Platelet mean volume (Bld) [Entitic vol] 11.3 fL 6.2-12.0 [facility] Determination of erythrocyte mean corpuscular volume (MCV)Ordered By: Behzad Glez on 06-28-2023 MCV (RBC) [Entitic vol] 96.9 fL 80-94 [facility] Hematocrit Auto (Bld) [Volum e fraction]Ordered By: Behzad Glez on 06-28-2023 Hematocrit (Bld) [Volume fraction] 34.7 % 40-54 [facility] Laboratory - Chemistry and C hemistry - challengeOrdered By: Behzad Glez on 06-28-2023 CO2 [Moles/Vol] 30.0 mmol/L 21.0-32.0 [facility] Urea nitrogen/Creatinine [Mass ratio] 6.4 mg/mg 10-20 [facility] Laboratory - Hematology and Cell countsOrdered By: Behzad Glez on 06-28-2023 Erythrocyte distribution width (RBC) [Entitic vol] 50.3 fL 35.1-43.9 [facility] Erythrocyte distribution width (RBC) [Ratio] 14.0 % 11.6-14.6 [facility] Immature granulocytes/100 WBC (Bld) 0.700 % 0.0-0.9 [facility] Comment on above: IG% - Immature Granu locytes (promyelocytes, myelocytes and metamyelocytes) > 1% indicates that a LEFT SHIFT is Present. MCH (RBC) [Entitic mass] 30.7 pg 27.0-32.0 [facility] Nucleated RBC/100 WBC (Bld) [Ratio] 0 % 0-5 [facility] Auto (RBC) [Mass/Vol]Or dered By: Behzad Glez on 06-28-2023 MCHC (RBC) [Mass/Vol] 31.7 g/dL 32-36 [facility] No Panel InformationOrdered By: Behzad Glez on 06-28-2023 Estimated Creatinine Clearance Calc 73.82 ml/min [facility] Estimated GFR (MDRD) Amer 86 mL/min >60 [facility] Comment on above: GFR Calc Estimated GFR (MDRD) Non-Af Amer 71 mL/min >60 [facility] Comment on above: Non- GFR Calc Platelets bldOrdered By: Maryellen Glez on 06-28-2023 Platelets (Bld) [#/Vol] 159 10*3/uL 150-450 [facility] Serum or plasma calcium gilma urement (mass/volume)Ordered By: Behzad Glez on 06-28-2023 Calcium [Mass/Vol] 8.5 mg/dL 8.5-10.1 [facility] Serum or plasma creatinine m easurement (mass/volume)Ordered By: Behzad Glez on 06-28-2023 Creatinine [Mass/Vol] 1.09 mg/dL 0.70-1.30 [facility] Comment on above: The validity of the calculated GFR & GFRAA in patients over 70 years has not been determined. Clinical correlation is essential. Serum or plasma trough vanco mycin levelOrdered By: Crystal Emerson on 06-28-2023 Vancomycin trough [Mass/Vol] 18.8 ug/mL 5.0-15.0 [facility] Comment on above: VANCOMYCIN STANDARED DRUG THERAPY TROUGH LEVEL: 5.0 - 15.0 mg/L VANCOMYCIN HIGH INTENSITY THERAPY TROUGH LEVEL: 15.0 - 20.0 mg/L High Intensity therapy recommended for serious lifethreatening infections include:- Tnnzyktdap-Eqfcadtemozd-Adrwpusnk (Ventilator/Healtcare Associated)-Sepsis PLEASE CONTACT PHARMACY SERVICES (#[id number]) FOR INTERPRETATIONOF RESULTS. Serum or plasma urea nitroge n measurement (mass/volume)Ordered By: Behzad Glez on 06-28-2023 Urea nitrogen [Mass/Vol] 7 mg/dL 7-18 [facility] Thin prep Papanicolaou smear with manual screeningOrdered By: Behzad Glez on 06-28-2023 Thin prep Papanicolaou smear with manual screening 2 5-[address] [facility] Basophil percentageOrdered B y: Crystal Emerson on 06-27-2023 Bilirubin [Mass/Vol] 0.70 mg/dL 0.20-1.[address] [facility] Comment on above: For patients on eltr ombopag therapy, use of Dimension Evangeline TBIL is not recommended. Cholesterol [Mass/Vol] 92 mg/dL <200 [facility] Comment on above: <200 mg/dL Desirable 200-240 mg/dL Borderline >240 mg/dL High Risk Protein [Mass/Vol] 5.6 g/dL 6.4-8.2 [facility] Triglyceride [Mass/Vol] 28 mg/dL <199 [facility] Comment on above: The drugs N-Acetylcy steine and Metamizole may falsely depress this assay.Serum Triglycerides Reference Interval Normal <150 mg/dL Borderline high 150 - 199 mg/dL High 200 - 499 mg/dL Very High > or = 500 mg/dL Laboratory - Chemistry and C hemistry - challengeOrdered By: Crystal Emerson on 06-27-2023 ALP [Catalytic activity/Vol] 61 U/L 45-117 [facility] ALT [Catalytic activity/Vol] 15 U/L 16-61 [facility] Globulin (S) [Mass/Vol] 2.7 g/dL 2.2-4.2 [facility] Serum or plasma albumin gilma urement (mass/volume)Ordered By: Crystal Emerson on 06-27-2023 Albumin [Mass/Vol] 2.9 g/dL 3.2-5.0 [facility] Serum or plasma albumin/glob ulin mass ratioOrdered By: Crystal Emerson on 06-27-2023 Albumin/Globulin [Mass ratio] 1.1 {ratio} 0.9-2.4 [facility] Serum or plasma cholesterol in HDL measurement (mass/volume)Ordered By: Crystal Emerson on 06-27-2023 Cholesterol in HDL [Mass/Vol] 52 mg/dL >40 [facility] Comment on above: The drugs N-Acetylcy steine and Metamizole may falsely depress this assay. Reference Range HDL <40 mg/dL Low HDL Cholesterol HDL >or= 60 mg/dL High HDL Cholesterol Serum or plasma cholesterol in VLDL measurement (mass/volume)Ordered By: Crystal Emerson on 06-27-2023 Cholesterol in VLDL [Mass/Vol] 6 mg/dL 5-40 [facility] Serum or plasma low density lipoprotein (LDL) cholesterol measurement (mass/volume)Ordered By: Crystal Emerson on 06-27-2023 Cholesterol in LDL [Mass/Vol] 34 mg/dL 0-130 [facility] Thin prep Papanicolaou smear with manual screeningOrdered By: Crystal Emerson on 06-27-2023 Thin prep Papanicolaou smear with manual screening 17 U/L 15-[address] [facility] Whole blood hemoglobin A1c/t otal hemoglobin ratio (mass fraction)Ordered By: Crystal Emerson on 06-27-2023 HbA1c (Bld) [Mass fraction] 4.6 % 3.8-5.6 [facility] Comment on above: Normal < 5.7 % Predi abetic 5.7 - 6.4 % Diabetic >or= 6.5 % Please note range changes. Absolute lymphocyte countOrd ered By: ED PROVIDER on 06-26-2023 Lymphocytes Auto (Unsp spec) [#/Vol] 0.67 10*3/uL 0.83-4.51 [facility] Basophil percentageOrdered B y: Michael Christy on 06-26-2023 Lactate [Moles/Vol] 1.1 mmol/L 0.4-2.0 [facility] Lactate [Moles/Vol] 2.2 mmol/L 0.4-2.0 [facility] Comment on above: Critical Result(s) C alled at: 14:52:53 06/26/2023 by: Felipe Prescott. Rolando Bonilla RN (ER). Results read back by same. Basophil percentageOrdered B y: ED PROVIDER on 06-26-2023 Basophils/100 WBC (Bld) 0.1 % 0-1 [facility] Chloride [Moles/Vol] 100 mmol/L 98-[address] [facility] Eosinophils/100 WBC (Bld) 0.1 % 0-5 [facility] Glucose [Mass/Vol] 94 mg/dL 74-106 [facility] Neutrophils (Bld) [#/Vol] 9.4 10*3/uL 2.0-7.7 [facility] Neutrophils/100 WBC (Bld) 84.3 % 47-70 [facility] Potassium [Moles/Vol] 3.9 mmol/L 3.5-5.1 [facility] Sodium [Moles/Vol] 136 mmol/L 136-145 [facility] WBC (Bld) [#/Vol] 11.1 10*3/uL 4.4-11.0 [facility] Blood erythrocytes count (nu mber/volume)Ordered By: ED PROVIDER on 06-26-2023 RBC (Bld) [#/Vol] 4.01 10*6/uL 4.6-6.2 [facility] Blood hemoglobin measurement (mass/volume)Ordered By: ED PROVIDER on 06-26-2023 Hemoglobin (Bld) [Mass/Vol] 12.2 g/dL 13.0-16. 5 [facility] Blood lymphocytes/100 leukoc ytesOrdered By: ED PROVIDER on 06-26-2023 Lymphocytes/100 WBC (Bld) 6.0 % 19-41 [facility] Blood monocytes/100 leukocyt esOrdered By: ED PROVIDER on 06-26-2023 Monocytes/100 WBC (Bld) 8.9 % 0-10 [facility] Blood platelet mean volumeOr dered By: ED PROVIDER on 06-26-2023 Platelet mean volume (Bld) [Entitic vol] 11.6 fL 6.2-12.0 [facility] Determination of erythrocyte mean corpuscular volume (MCV)Ordered By: ED PROVIDER on 06-26-2023 MCV (RBC) [Entitic vol] 93.3 fL 80-94 [facility] Erythrocyte sedimentation ra teOrdered By: Michael Christy on 06-26-2023 ESR (Bld) [Velocity] 6 mm/h 0-[address] [facility] Final Surgical Pathology Rep mraitza 06-26-2023 Final Surgical Pathology Report . Pathology Reports Accession: Collected Date/Time: Received Date/Time: Pathologist: [id number] 06/17/2023 14:52 EST 06/19/2023 08:37 EST RAMA KIRBY MD Final Surgical Pathology Report DIAGNOSIS: A. SKIN, RIGHT POSTERIOR UPPER LEG, EXCISION: - FIBROEPITHELIAL POLYP B. 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 The atypical melanocytes at the dermoepidermal junction are strongly positive for HMB45, show a moderately elevated Ki-67 proliferation index, and show focal loss of p16. PRAME is focally positive. SOX10 highlights a few intraepidermal atypical melanocytes, raising the possibility of melanoma in situ. The lesion is very close to the excision edges. Conservative reexcision to ensure complete removal of this lesion is recommended. Intradepartmental consultation: Dr. Macias, who concurs. CLINICAL INFORMATION: SUSPICIOUS PIGMENTED SKIN LESION, SHAVING OF STALK Procedure: SUSPICIOUS PIGMENTED SKIN LESION, SHAVING OF STALK Preoperative diagnosis: SUSPICIOUS PIGMENTED SKIN LESION Postoperative diagnosis: SUSPICIOUS PIGMENTED SKIN LESION SPECIMEN: A RIGHT POSTERIOR UPPER LEG B MID BACK GROSS DESCRIPTION: A. Received in formalin, labeled with the patients name, Case # [id number], and back of right knee is a white lobulated portion of skin measuring 5.5 x 4.4 x 3.2 cm. The excision margin is inked black. RS -2 B. Received in formalin and undesignated on the container is a kumar fragment of skin measuring 0.2 x 0.1 by less than 0.1 cm. Possible excision margin inked black. TS -1 Dictated by SERA BOX MICROSCOPIC DESCRIPTION: The microscopic examination is performed, except in the case of Gross Only. Electronically Signed by Pathology Report verified by [facility] RAMA KIRBY Sign out Date: 06/26/2023 09:06 Performing Lab: [facility], [address] [place] [address] Pathology Dept Disclaimer If ancillary studies were utilized, the following Laboratory Developed Test (LDT) disclaimer will apply: Under CLIA requirements, [facility] is qualified to perform high complexity testing. For all ancillary stains, positive and negative controls stain appropriately. Performance characteristics of immunohistochemical and chromogenic in-situ Pathology Reports Accession: Collected Date/Time: Received Date/Time: Pathologist: [id number] 06/17/2023 14:52 EST 06/19/2023 08:37 RAMA FLORES MD Disclaimer hybridization tests have been determined by [facility]. These tests are used for clinical purposes, They should not be regarded as investigational or for research. Normal [facility] ([place]) Hematocrit Auto (Bld) [Volum e fraction]Ordered By: ED PROVIDER on 06-26-2023 Hematocrit (Bld) [Volume fraction] 37.4 % 40-54 [facility] - Chemistry and C hemistry - challengeOrdered By: ED PROVIDER on 06-26-2023 CO2 [Moles/Vol] 29.0 mmol/L 21.0-32.0 [facility] Urea nitrogen/Creatinine [Mass ratio] 11.5 mg/mg 10-20 [facility] - Hematology and Cell countsOrdered By: ED PROVIDER on 06-26-2023 Erythrocyte distribution width (RBC) [Entitic vol] 48.0 fL 35.1-43.9 [facility] Erythrocyte distribution width (RBC) [Ratio] 13.9 % 11.6-14.6 [facility] Immature granulocytes/100 WBC (Bld) 0.600 % 0.0-0.9 [facility] Comment on above: IG% - Immature Granu locytes (promyelocytes, myelocytes and metamyelocytes) > 1% indicates that a LEFT SHIFT is Present. MCH (RBC) [Entitic mass] 30.4 pg 27.0-32.0 [facility] Nucleated RBC/100 WBC (Bld) [Ratio] 0 % 0-5 [facility] - Microbiology an d Antimicrobial susceptibilityOrdered By: Michael Christy on 06-26-2023 Bacteria identified Cx Nom (Bld) No growth in 5 days. [facility] Bacteria identified Cx Nom (Bld) No growth in 5 days. [facility] MCHC Auto (RBC) [Mass/Vol]Or dered By: ED PROVIDER on 06-26-2023 MCHC (RBC) [Mass/Vol] 32.6 g/dL 32-36 [facility] No Panel InformationOrdered By: ED PROVIDER on 06-26-2023 Estimated GFR (MDRD) Amer 65 mL/min >60 [facility] Comment on above: GFR Calc Estimated GFR (MDRD) Non-Af Amer 54 mL/min >60 [facility] Comment on above: Non- GFR Calc Platelets bldOrdered By: ED PROVIDER on 06-26-2023 Platelets (Bld) [#/Vol] 207 10*3/uL 150-450 [facility] Serum or plasma C reactive p rotein measurement (mass/volume)Ordered By: Michael Christy on 06-26-2023 CRP [Mass/Vol] mg/L 0.0-3.0 [facility] Comment on above: C-Reactive Protein ( CRP) provides useful information for thediagnosis, therapy and monitoring of inflammatory processesand associated diseases. For the evaluation of Relative Riskfor Cardiovascular Disease, a High Sensitivity CRP (HSCRP)should be ordered. Serum or plasma calcium gilma urement (mass/volume)Ordered By: ED PROVIDER on 06-26-2023 Calcium [Mass/Vol] 9.5 mg/dL 8.5-10.1 [facility] Serum or plasma creatinine m easurement (mass/volume)Ordered By: ED PROVIDER on 06-26-2023 Creatinine [Mass/Vol] 1.39 mg/dL 0.70-1.30 [facility] Comment on above: The validity of the calculated GFR & GFRAA in patients over 70 years has not been determined. Clinical correlation is essential. Serum or plasma urea nitroge n measurement (mass/volume)Ordered By: ED PROVIDER on 06-26-2023 Urea nitrogen [Mass/Vol] 16 mg/dL 7-18 [facility] Thin prep Papanicolaou smear with manual screeningOrdered By: ED PROVIDER on 06-26-2023 Thin prep Papanicolaou smear with manual screening 7 5-[address] [facility] XR FOOT MINIMUM 3 VIEWS LEFT on 06-26-2023 XR FOOT MINIMUM 3 VIEWS LEFT ORIGINAL EXAMINATION: THREE XRAY VIEWS OF THE LEFT FOOT 06/26/2023 8:30 am COMPARISON: None. HISTORY: ORDERING SYSTEM PROVIDED HISTORY: Reason for Exam: left great toe wound, rule out osteomyelitis FINDINGS: There is is decreased radiographic bone mineral density. No visualized acute fracture or dislocation. Small calcaneal enthesophyte. Vascular calcifications are seen. There is moderate soft tissue swelling is seen of the forefoot. There is a soft tissue hypodensity seen of the distal tip of the great toe indicative of reported great toe wound. The distal tip of the tuft demonstrates decreased definition concerning for osteomyelitis. IMPRESSION: - Findings concerning for osteomyelitis of the distal tip of the great toe. Consider three-phase bone scan or MRI with IV contrast for further evaluation as clinically indicated. - Moderate soft tissue swelling of the forefoot. - Decreased radiographic bone mineral density. Interpreted by: Edward Tate MD Preliminary Report By: Edward Tate MD Electronically signed By Edward Tate MD Dictated Date: 06/26/2023 8:36:54 AM Prelim Date: 06/26/2023 8:39:18 AM Sign Date: 06/26/2023 8:39:18 AM Ordering Provider: JAY Richardson [facility] ([place]) .Auto Diffon 06-19-2023 Basophil, Absolute 0.0 10 3/mcL Normal 0.0-0.2 [facility] ([place]) Comment on above: Performed By: #### B 12, FOL #### [place] [address] #### LIPID, ADIFF, GFR, PBNP, BMP, ANEU, CBC #### [address] [address] Basophils/100 WBC (Bld) 0.6 % Normal 0.0-2.5 A [facility] ([place]) Comment on above: Performed By: #### B 12, FOL #### [place] [address] #### LIPID, ADIFF, GFR, PBNP, BMP, ANEU, CBC #### [address] [address] Eosinophil, Absolute 0.1 10 3/mcL Normal 0.0-0.4 [facility] ([place]) Comment on above: Performed By: #### B 12, FOL #### [place] [address] #### LIPID, ADIFF, GFR, PBNP, BMP, ANEU, CBC #### [address] [address] Eosinophils/100 WBC (Bld) 1.3 % Normal 0.0-7.0 [facility] ([place]) Comment on above: Performed By: #### B 12, FOL #### [place] [address] #### LIPID, ADIFF, GFR, PBNP, BMP, ANEU, CBC #### [address] [address] Lymphocyte, Absolute 0.6 10 3/mcL Low 0.8-3.9 [facility] ([place]) Comment on above: Performed By: #### B 12, FOL #### [place] [address] #### LIPID, ADIFF, GFR, PBNP, BMP, ANEU, CBC #### [address] [address] Lymphocytes/100 WBC (Bld) 7.6 % Low 10.0-50.0 [facility] ([place]) Comment on above: Performed By: #### B 12, FOL #### [place] [address] #### LIPID, ADIFF, GFR, PBNP, BMP, ANEU, CBC #### [address] [address] Monocyte, Absolute 0.8 10 3/mcL Normal 0.2-1.0 [facility] ([place]) Comment on above: Performed By: #### B 12, FOL #### [place] [address] #### LIPID, ADIFF, GFR, PBNP, BMP, ANEU, CBC #### [address] [address] Monocytes/100 WBC (Bld) 9.8 % Normal 1.7-13.0 A [facility] ([place]) Comment on above: Performed By: #### B 12, FOL #### [place] [address] #### LIPID, ADIFF, GFR, PBNP, BMP, ANEU, CBC #### [address] [address] Neutrophils/100 WBC (Bld) 80.7 % High 37.0-80.0 [facility] ([place]) Comment on above: Performed By: #### B 12, FOL #### [address] [address] #### LIPID, ADIFF, GFR, PBNP, BMP, ANEU, CBC #### [address] [address] .GFRon 06-19-2023 GFR Non- 71 ml/min/1.73sqm Normal [facility] ([place]) Comment on above: Result Comment: GFR Population mean for , Non- Americans Ages 20-29 = 116 mL/min/1.73 sq.m. Ages 30-39 = 107 mL/min/1.73 sq.m. Ages 40-49 = 99 mL/min/1.73 sq.m. Ages 50-59 = 93 mL/min/1.73 sq.m. Ages 60-69 = 85 mL/min/1.73 sq.m. Ages 70+ = 75 mL/min/1.73 sq.m. Chronic Kidney Disease: Less than 60 mL/min/1.73 square meters End Stage Renal Disease: Less than 15 mL/min/1.73 square meters Performed By: #### B 12, FOL #### [address] [address] #### LIPID, ADIFF, GFR, PBNP, BMP, ANEU, CBC #### [address] [address] GFR 86 ml/min/1.73sqm Normal [facility] ([place]) Comment on above: Result Comment: GFR Population mean for , Non- Americans Ages 20-29 = 116 mL/min/1.73 sq.m. Ages 30-39 = 107 mL/min/1.73 sq.m. Ages 40-49 = 99 mL/min/1.73 sq.m. Ages 50-59 = 93 mL/min/1.73 sq.m. Ages 60-69 = 85 mL/min/1.73 sq.m. Ages 70+ = 75 mL/min/1.73 sq.m. Chronic Kidney Disease: Less than 60 mL/min/1.73 square meters End Stage Renal Disease: Less than 15 mL/min/1.73 square meters Performed By: #### B 12, FOL #### [place] [address] #### LIPID, ADIFF, GFR, PBNP, BMP, ANEU, CBC #### [address] [address] .NEUABSon 06-19-2023 Neutrophil, Absolute 6.5 10 3/mcL High 2.9-6.2 [facility] ([place]) Comment on above: Performed By: #### B 12, FOL #### [place] [address] #### LIPID, ADIFF, GFR, PBNP, BMP, ANEU, CBC #### [address] [address] B12on 06-19-2023 Cobalamin (Vitamin B12) [Mass/Vol] 1369 pg/mL High 211-911 [facility] ([place]) Comment on above: Performed By: #### Christian 12, FOL ####[place] [address]#### LIPID, ADIFF, GFR, PBNP, BMP, ANEU, CBC ####[address] [address] BMPon 06-19-2023 BUN/Creatinine Ratio 10 ratio Normal 7-27 [facility] ([place]) Comment on above: Performed By: #### B 12, FOL #### [place] [address] #### LIPID, ADIFF, GFR, PBNP, BMP, ANEU, CBC #### [address] [address] Calcium [Mass/Vol] 8.7 mg/dL Normal 8.4-10.2 [facility] ([place]) Comment on above: Performed By: #### B 12, FOL #### [place] [address] #### LIPID, ADIFF, GFR, PBNP, BMP, ANEU, CBC #### [address] [address] Chloride [Moles/Vol] 103 mmol/L Normal 98-107 [facility] ([place]) Comment on above: Performed By: #### B 12, FOL #### [place] [address] #### LIPID, ADIFF, GFR, PBNP, BMP, ANEU, CBC #### [address] [address] CO2 [Moles/Vol] 26 mmol/L Normal 23-31 [facility] ([place]) Comment on above: Performed By: #### B 12, FOL #### [place] [address] #### LIPID, ADIFF, GFR, PBNP, BMP, ANEU, CBC #### [address] [address] Creatinine [Mass/Vol] 1.04 mg/dL Normal 0.70-1.30 [facility] ([place]) Comment on above: Performed By: #### B 12, FOL #### [place] [address] #### LIPID, ADIFF, GFR, PBNP, BMP, ANEU, CBC #### [address] [address] Electrolyte Balance 10.0 mEq/L Normal 4.0-15.0 [facility] ([place]) Comment on above: Performed By: #### B 12, FOL #### [place] [address] #### LIPID, ADIFF, GFR, PBNP, BMP, ANEU, CBC #### [address] [address] Glucose [Mass/Vol] 86 mg/dL Normal 80-115 [facility] ([place]) Comment on above: Performed By: #### B 12, FOL #### [place] [address] #### LIPID, ADIFF, GFR, PBNP, BMP, ANEU, CBC #### [address] [address] Potassium [Moles/Vol] 4.1 mmol/L Normal 3.5-5.1 [facility] ([place]) Comment on above: Performed By: #### B 12, FOL #### [place] [address] #### LIPID, ADIFF, GFR, PBNP, BMP, ANEU, CBC #### [address] [address] Sodium [Moles/Vol] 139 mmol/L Normal 136-145 [facility] ([place]) Comment on above: Performed By: #### B 12, FOL #### [place] [address] #### LIPID, ADIFF, GFR, PBNP, BMP, ANEU, CBC #### [address] [address] Urea nitrogen [Mass/Vol] 10 mg/dL Normal 7-18 [facility] ([place]) Comment on above: Performed By: #### B 12, FOL #### [place] [address] #### LIPID, ADIFF, GFR, PBNP, BMP, ANEU, CBC #### [address] [address] CBCon 06-19-2023 Erythrocyte distribution width (RBC) [Ratio] 14.9 % High 11.5-14.5 [facility] ([place]) Comment on above: Performed By: #### B 12, FOL #### [place] [address] #### LIPID, ADIFF, GFR, PBNP, BMP, ANEU, CBC #### [address] [address] Hematocrit (Bld) [Volume fraction] 35.0 % Low 42.0-52.0 [facility] ([place]) Comment on above: Performed By: #### B 12, FOL #### [place] [address] #### LIPID, ADIFF, GFR, PBNP, BMP, ANEU, CBC #### [address] [address] Hgb 11.8 G/dL Low 14.0-18.0 [facility] ([place]) Comment on above: Performed By: #### B 12, FOL #### [place] [address] #### LIPID, ADIFF, GFR, PBNP, BMP, ANEU, CBC #### [address] [address] MCH (RBC) [Entitic mass] 31.6 pg High 27.0-31.2 [facility] ([place]) Comment on above: Performed By: #### B 12, FOL #### [place] [address] #### LIPID, ADIFF, GFR, PBNP, BMP, ANEU, CBC #### [place] [address] MCHC 33.7 G/dL Normal 31.8-35.4 [facility] ([place]) Comment on above: Performed By: #### Christian 12, FOL #### [place] [address] #### LIPID, ADIFF, GFR, PBNP, BMP, ANEU, CBC #### [place] [address] MCV (RBC) [Entitic vol] 93.7 fL Normal 80.0-94.0 A [facility] ([place]) Comment on above: Performed By: #### Christian 12, FOL #### [place] [address] #### LIPID, ADIFF, GFR, PBNP, BMP, ANEU, CBC #### [place] [address] Platelet 145 10 3/mcL Normal 130-400 [facility] ([place]) Comment on above: Performed By: #### B 12, FOL #### [place] [address] #### LIPID, ADIFF, GFR, PBNP, BMP, ANEU, CBC #### [facility] [place] [address] [place], [place] [address] Platelet mean volume (Bld) [Entitic vol] 9.6 fL Normal 7.4-10.4 [facility] ([place]) Comment on above: Performed By: #### B 12, FOL #### [place] [address] #### LIPID, ADIFF, GFR, PBNP, BMP, ANEU, CBC #### [place] [address] RBC 3.73 10 6/mcL Low 4.04-6.13 [facility] ([place]) Comment on above: Performed By: #### Christian 12, FOL #### [place] [address] #### LIPID, ADIFF, GFR, PBNP, BMP, ANEU, CBC #### [place] [address] WBC 8.0 10 3/mcL Normal 4.6-10.8 [facility] ([place]) Comment on above: Performed By: #### Christian 12, FOL #### [place] [address] #### LIPID, ADIFF, GFR, PBNP, BMP, ANEU, CBC #### [place] [address] FOLon 06-19-2023 Folate 21.01 ng/mL Normal 5.38-24.00 [facility] ([place]) Comment on above: Performed By: #### Christian 12, FOL ####[place] [address]#### LIPID, ADIFF, GFR, PBNP, BMP, ANEU, CBC ####[place] [address] LABORATORYOrdered By: SYSTEM SYSTEM on 06-19-2023 Basophil, Absolute 0.0 103/mcL Normal 0.0 - 0.2 10^3/mcL AO Workflow SS Basophils/100 WBC (Bld) 0.6 % Normal 0.0 - 2.5 % AO Workflow SS Calcium [Mass/Vol] 8.7 mg/dL Normal 8.4 - 10. 2 mg/dL AO ADM SS Chloride [Moles/Vol] 103 mmol/L Normal 98 - 10 7 mmol/L AO ADM SS CO2 [Moles/Vol] 26 mmol/L Normal 23 - 31 mmol/L AO ADM SS Cobalamin (Vitamin B12) [Mass/Vol] 1369 pg/mL High 211 - 911 pg/mL ADM SS Creatinine [Mass/Vol] 1.04 mg/dL Normal 0.70 - 1.30 mg/dL AO ADM SS Electrolyte Balance 10.0 mEq/L Normal 4.0 - 15 .0 mEq/L AO ADM SS Eosinophil, Absolute 0.1 103/mcL Normal 0.0 - 0 .4 10^3/mcL AO Workflow SS Eosinophils/100 WBC (Bld) 1.3 % Normal 0. 0 - 7.0 % AO Workflow SS Erythrocyte distribution width (RBC) [Ratio] 14.9 % High 11.5 - 14.5 % AO Workflow SS Folate [Mass/Vol] 21.01 ng/mL Normal 5.38 - 24.00 ng/mL ADM SS GFR/1.73 sq M.predicted among blacks MDRD (S/P/Bld) [Vol rate/Area] 86 ml/min/1.73sqm Invalid Interpretation Code AO Chemistry S Comment on above: Interpretive Data: GFR Population mean for , Non- Americans Ages 20-29 = 116 mL/min/1.73 sq.m. Ages 30-39 = 107 mL/min/1.73 sq.m. Ages 40-49 = 99 mL/min/1.73 sq.m. Ages 50-59 = 93 mL/min/1.73 sq.m. Ages 60-69 = 85 mL/min/1.73 sq.m. Ages 70+ = 75 mL/min/1.73 sq.m. Chronic Kidney Disease: Less than 60 mL/min/1.73 square meters End Stage Renal Disease: Less than 15 mL/min/1.73 square meters GFR/1.73 sq M.predicted among non-blacks MDRD (S/P/Bld) [Vol rate/Area] 71 ml/min/1.73sqm Invalid Interpretation Code AO Chemistry S Comment on above: Interpretive Data: GFR Population mean for , Non- Americans Ages 20-29 = 116 mL/min/1.73 sq.m. Ages 30-39 = 107 mL/min/1.73 sq.m. Ages 40-49 = 99 mL/min/1.73 sq.m. Ages 50-59 = 93 mL/min/1.73 sq.m. Ages 60-69 = 85 mL/min/1.73 sq.m. Ages 70+ = 75 mL/min/1.73 sq.m. Chronic Kidney Disease: Less than 60 mL/min/1.73 square meters End Stage Renal Disease: Less than 15 mL/min/1.73 square meters Glucose [Mass/Vol] 86 mg/dL Normal 80 - 115 mg/dL AO ADM SS Hematocrit (Bld) [Volume fraction] 35.0 % Low 42.0 - 52.0 % AO Workflow SS Hemoglobin (Bld) [Mass/Vol] 11.8 G/dL Low 14.0 - 18.0 G/dL AO Workflow SS Lymphocyte, Absolute 0.6 103/mcL Low 0.8 - 3 .9 10^3/mcL AO Workflow SS Lymphocytes/100 WBC (Bld) 7.6 % Low 10 .0 - 50.0 % AO Workflow SS MCH (RBC) [Entitic mass] 31.6 pg High 27. 0 - 31.2 pg AO Workflow SS MCHC 33.7 G/dL Normal 31.8 - 35.4 G/dL AO Workflow SS MCV (RBC) [Entitic vol] 93.7 fL Normal 80.0 - 94.0 fL AO Workflow SS Monocyte, Absolute 0.8 103/mcL Normal 0.2 - 1.0 10^3/mcL AO Workflow SS Monocytes/100 WBC (Bld) 9.8 % Normal 1.7 - 13.0 % AO Workflow SS Natriuretic peptide.B prohormone N-Terminal [Mass/Vol] 843 pg/mL High 0 - 125 pg/mL AO ADM SS Comment on above: Interpretive Data: N T-proBNP results of less than 300 pg/mL effectively rules out acute congestive heart failure with 99% negative predictive value. Neutrophil, Absolute 6.5 103/mcL High 2.9 - 6 .2 10^3/mcL AO Workflow SS Neutrophils/100 WBC (Bld) 80.7 % High 37 .0 - 80.0 % AO Workflow SS Platelet mean volume (Bld) [Entitic vol] 9.6 fL Normal 7.4 - 10.4 fL AO Workflow SS Platelets (Bld) [#/Vol] 145 103/mcL Normal 130 - 400 10^3/mcL AO Workflow SS Potassium [Moles/Vol] 4.1 mmol/L Normal 3.5 - 5.1 mmol/L AO ADM SS RBC (Bld) [#/Vol] 3.73 106/mcL Low 4.04 - 6.13 10^6/mcL AO Workflow SS Sodium [Moles/Vol] 139 mmol/L Normal 136 - 145 mmol/L AO ADM SS Urea nitrogen [Mass/Vol] 10 mg/dL Normal 7 - 18 mg/dL AO ADM SS Urea nitrogen/Creatinine [Mass ratio] 10 ratio Normal 7 - 27 ratio AO ADM SS WBC (Bld) [#/Vol] 8.0 103/mcL Normal 4.6 - 10.8 10^3/mcL AO Workflow SS LABORATORYOrdered By: Elvira Hernandez on 06-19-2023 Cholesterol [Mass/Vol] 106 mg/dL Normal 0 - 2 00 mg/dL AO ADM SS Comment on above: Interpretive Data: C holesterol Reference Interval: Less than 200 Desirable 200-239 Borderline high risk 240 and above High risk Cholesterol in HDL [Mass/Vol] 61 mg/dL High 40 - 60 mg/dL AO ADM SS Cholesterol in LDL [Mass/Vol] 41 mg/dL Normal 0 - 130 mg/dL AO ADM SS Triglyceride [Mass/Vol] 22 mg/dL Normal 0 - 150 mg/dL AO ADM SS Comment on above: Interpretive Data: T riglyceride Reference Interval: Less than 150 Normal 150-199 Borderline high risk 200-499 High risk 500 or higher Very high risk LIPIDon 06-19-2023 Cholesterol [Mass/Vol] 106 mg/dL Normal 0-200 [facility] ([place]) Comment on above: Result Comment: Chol esterol Reference Interval: Less than 200 Desirable 200-239 Borderline high risk 240 and above High risk Performed By: #### Christian Santiago, CASSANDRA #### [address] [address] #### LIPID, ADIFF, GFR, PBNP, BMP, ANEU, CBC #### [place] [address] [place], [place] [address] Cholesterol in HDL [Mass/Vol] 61 mg/dL High 40-60 [facility] ([place]) Comment on above: Performed By: #### B 12, FOL #### [place] [address] #### LIPID, ADIFF, GFR, PBNP, BMP, ANEU, CBC #### [address] [address] Cholesterol in LDL [Mass/Vol] 41 mg/dL Normal 0-130 [facility] ([place]) Comment on above: Performed By: #### B 12, FOL #### [place] [address] #### LIPID, ADIFF, GFR, PBNP, BMP, ANEU, CBC #### [address] [address] Triglyceride [Mass/Vol] 22 mg/dL Normal 0-150 A [facility] ([place]) Comment on above: Result Comment: Trig lyceride Reference Interval: Less than 150 Normal 150-199 Borderline high risk 200-499 High risk 500 or higher Very high risk Performed By: #### B 12, FOL #### [place] [address] #### LIPID, ADIFF, GFR, PBNP, BMP, ANEU, CBC #### [address] [address] PBNPon 06-19-2023 Natriuretic peptide B (Bld) [Mass/Vol] 843 pg/mL High 0-125 [facility] ([place]) Comment on above: Result Comment: NT-p roBNP results of less than 300 pg/mL effectively rules out acute congestive heart failure with 99% negative predictive value. Performed By: #### B 12, FOL #### [place] [address] #### LIPID, ADIFF, GFR, PBNP, BMP, ANEU, CBC #### [address] [address] Absolute lymphocyte countOrd ered By: Dalton Clarke on 06-05-2023 Lymphocytes Auto (Unsp spec) [#/Vol] 1.36 10*3/uL 0.83-4.51 [facility] Basophil percentageOrdered B y: Dalton Clarke on 06-05-2023 Basophils/100 WBC (Bld) 1.0 % 0-1 [facility] Bilirubin [Mass/Vol] 0.90 mg/dL 0.20-1.[address] [facility] Comment on above: For patients on eltr ombopag therapy, use of Dimension Evangeline TBIL is not recommended. Chloride [Moles/Vol] 104 mmol/L 98-[address] [facility] Eosinophils/100 WBC (Bld) 3.0 % 0-5 [facility] Glucose [Mass/Vol] 84 mg/dL 74-106 [facility] Neutrophils (Bld) [#/Vol] 3.9 10*3/uL 2.0-7.7 [facility] Neutrophils/100 WBC (Bld) 62.3 % 47-70 [facility] Potassium [Moles/Vol] 4.0 mmol/L 3.5-5.1 [facility] Protein [Mass/Vol] 6.3 g/dL 6.4-8.2 [facility] Sodium [Moles/Vol] 140 mmol/L 136-145 [facility] WBC (Bld) [#/Vol] 6.3 10*3/uL 4.4-11.0 [facility] Blood erythrocytes count (nu mber/volume)Ordered By: Dalton Clarke on 06-05-2023 RBC (Bld) [#/Vol] 3.80 10*6/uL 4.6-6.2 [facility] Blood hemoglobin measurement (mass/volume)Ordered By: Dalton Clarke on 06-05-2023 Hemoglobin (Bld) [Mass/Vol] 11.8 g/dL 13.0-16. 5 [facility] Blood lymphocytes/100 leukoc ytesOrdered By: Dalton Clarke on 06-05-2023 Lymphocytes/100 WBC (Bld) 21.7 % 19-41 [facility] Blood monocytes/100 leukocyt esOrdered By: Dalton Clarke on 06-05-2023 Monocytes/100 WBC (Bld) 11.5 % 0-10 [facility] Blood platelet mean volumeOr dered By: Dalton Clarke on 06-05-2023 Platelet mean volume (Bld) [Entitic vol] 11.3 fL 6.2-12.0 [facility] Determination of erythrocyte mean corpuscular volume (MCV)Ordered By: Dalton Clarke on 06-05-2023 MCV (RBC) [Entitic vol] 98.2 fL 80-94 [facility] Hematocrit Auto (Bld) [Volum e fraction]Ordered By: Dalton Clarke on 06-05-2023 Hematocrit (Bld) [Volume fraction] 37.3 % 40-54 [facility] - Chemistry and C hemistry - challengeOrdered By: Dalton Clarke on 06-05-2023 ALP [Catalytic activity/Vol] 89 U/L 45-117 [facility] ALT [Catalytic activity/Vol] 14 U/L 16-61 [facility] CO2 [Moles/Vol] 28.0 mmol/L 21.0-32.0 [facility] Globulin (S) [Mass/Vol] 3.2 g/dL 2.2-4.2 [facility] Urea nitrogen/Creatinine [Mass ratio] 11.2 mg/mg 10-20 [facility] - Hematology and Cell countsOrdered By: Daltonrenetta Clarke on 06-05-2023 Erythrocyte distribution width (RBC) [Entitic vol] 51.8 fL 35.1-43.9 [facility] Erythrocyte distribution width (RBC) [Ratio] 14.4 % 11.6-14.6 [facility] Immature granulocytes/100 WBC (Bld) 0.500 % 0.0-0.9 [facility] Comment on above: IG% - Immature Granu locytes (promyelocytes, myelocytes and metamyelocytes) > 1% indicates that a LEFT SHIFT is Present. MCH (RBC) [Entitic mass] 31.1 pg 27.0-32.0 [facility] Nucleated RBC/100 WBC (Bld) [Ratio] 0 % 0-5 [facility] MCHC Auto (RBC) [Mass/Vol]Or dered By: Dalton Clarke on 06-05-2023 MCHC (RBC) [Mass/Vol] 31.6 g/dL 32-36 [facility] No Panel InformationOrdered By: Dalton Clarke on 06-05-2023 Estimated GFR (MDRD) Amer 98 mL/min >60 [facility] Comment on above: GFR Calc Estimated GFR (MDRD) Non-Af Amer 81 mL/min >60 [facility] Comment on above: Non- GFR Calc Platelets bldOrdered By: Devonte Clarke on 06-05-2023 Platelets (Bld) [#/Vol] 153 10*3/uL 150-450 [facility] Serum or plasma albumin gilma urement (mass/volume)Ordered By: Dalton Clarke on 06-05-2023 Albumin [Mass/Vol] 3.1 g/dL 3.2-5.0 [facility] Serum or plasma albumin/glob ulin mass ratioOrdered By: Dalton Clarke on 06-05-2023 Albumin/Globulin [Mass ratio] 1.0 {ratio} 0.9-2.4 [facility] Serum or plasma calcium gilma urement (mass/volume)Ordered By: Dalton Clarke on 06-05-2023 Calcium [Mass/Vol] 9.6 mg/dL 8.5-10.1 [facility] Serum or plasma creatinine m easurement (mass/volume)Ordered By: Dalton Clarke on 06-05-2023 Creatinine [Mass/Vol] 0.98 mg/dL 0.70-1.30 [facility] Comment on above: The validity of the calculated GFR & GFRAA in patients over 70 years has not been determined. Clinical correlation is essential. Serum or plasma urea nitroge n measurement (mass/volume)Ordered By: Dalton Clarke on 06-05-2023 Urea nitrogen [Mass/Vol] 11 mg/dL 7-18 [facility] Thin prep Papanicolaou smear with manual screeningOrdered By: Dalton Clarke on 06-05-2023 Thin prep Papanicolaou smear with manual screening 13 U/L 15-[address] [facility] Thin prep Papanicolaou smear with manual screening 8 5-[address] [facility] B12on 04-25-2023 Cobalamin (Vitamin B12) [Mass/Vol] 1991 pg/mL High 211-911 [facility] ([place]) Comment on above: Performed By: #### B 12, FOL #### [place] [address] #### LIPID, ADIFF, GFR, PBNP, BMP, ANEU, CBC #### [address] [address] BILAIon 04-25-2023 Bili Indirect 0.8 mg/dL Normal [facility] ([place]) Comment on above: Performed By: #### B 12, FOL #### [place] [address] #### LIPID, ADIFF, GFR, PBNP, BMP, ANEU, CBC #### [address] [address] Bili Direct 0.3 mg/dL High 0.0-0.2 [facility] ([place]) Comment on above: Result Comment: Use of this assay is not recommended for patients undergoing treatment with eltrombopag due to the potential for falsely elevated results. Performed By: #### B 12, FOL #### [place] [address] #### LIPID, ADIFF, GFR, PBNP, BMP, ANEU, CBC #### [address] [address] Bili Total 1.1 mg/dL High 0.2-1.0 [facility] ([place] Comment on above: Result Comment: Use of this assay is not recommended for patients undergoing treatment with eltrombopag due to the potential for falsely elevated results. Performed By: #### B 12, FOL #### [place] [address] #### LIPID, ADIFF, GFR, PBNP, BMP, ANEU, CBC #### [address] [address] Luis Miguel 04-25-2023 Ferritin [Mass/Vol] 64.0 ng/mL Normal 26.0-388.0 [facility] ([place]) Comment on above: Performed By: #### B 12, FOL #### [place] [address] #### LIPID, ADIFF, GFR, PBNP, BMP, ANEU, CBC #### [address] [address] FESon 04-25-2023 Iron [Mass/Vol] 67 ug/dL Normal 65-175 [facility] ([place]) Comment on above: Performed By: #### B 12, FOL #### [place] [address] #### LIPID, ADIFF, GFR, PBNP, BMP, ANEU, CBC #### [place] [id number] Iron Sat 21 % Normal [facility] ([place]) Comment on above: Performed By: #### B 12, FOL #### [place] [address] #### LIPID, ADIFF, GFR, PBNP, BMP, ANEU, CBC #### [place] [address] TIBC 323 mcg/dL Normal 250-450 [facility] ([place]) Comment on above: Performed By: #### B 12, FOL #### [place] [address] #### LIPID, ADIFF, GFR, PBNP, BMP, ANEU, CBC #### [place] [id number] FOL 04-25-2023 Folate 4.64 ng/mL Low 5.38-24.00 [facility] ([place]) Comment on above: Performed By: #### B 12, FOL #### [place] [address] #### LIPID, ADIFF, GFR, PBNP, BMP, ANEU, CBC #### [place] [id number] Basophil percentageOrdered B y: Dalton Clarke on 01-22-2023 Bilirubin [Mass/Vol] 1.10 mg/dL 0.20-1.[address] [facility] Comment on above: For patients on eltr ombopag therapy, use of Dimension Evangeline TBIL is not recommended. Chloride [Moles/Vol] 103 mmol/L 98-[address] [facility] Cholesterol [Mass/Vol] 105 mg/dL <200 [facility] Comment on above: <200 mg/dL Desirable 200-240 mg/dL Borderline >240 mg/dL High Risk Glucose [Mass/Vol] 85 mg/dL 74-106 [facility] Potassium [Moles/Vol] 3.4 mmol/L 3.5-5.1 [facility] Protein [Mass/Vol] 7.1 g/dL 6.4-8.2 [facility] Sodium [Moles/Vol] 138 mmol/L 136-145 [facility] Triglyceride [Mass/Vol] 43 mg/dL <199 [facility] Comment on above: The drugs N-Acetylcy steine and Metamizole may falsely depress this assay.Serum Triglycerides Reference Interval Normal <150 mg/dL Borderline high 150 - 199 mg/dL High 200 - 499 mg/dL Very High > or = 500 mg/dL Basophil percentageOrdered B y: Jay Easton on 01-22-2023 WBC (Bld) [#/Vol] 8.0 10*3/uL 4.4-11.0 [facility] Blood erythrocytes count (nu mber/volume)Ordered By: Jay Easton on 01-22-2023 RBC (Bld) [#/Vol] 4.01 10*6/uL 4.6-6.2 [facility] Blood hemoglobin measurement (mass/volume)Ordered By: Jay Easton on 01-22-2023 Hemoglobin (Bld) [Mass/Vol] 12.5 g/dL 13.0-16. 5 [facility] Blood platelet mean volumeOr dered By: Jay Easton on 01-22-2023 Platelet mean volume (Bld) [Entitic vol] 11.1 fL 6.2-12.0 [facility] Determination of erythrocyte mean corpuscular volume (MCV)Ordered By: Jay Easton on 01-22-2023 MCV (RBC) [Entitic vol] 95.3 fL 80-94 [facility] Hematocrit Auto (Bld) [Volum e fraction]Ordered By: Jay Easton on 01-22-2023 Hematocrit (Bld) [Volume fraction] 38.2 % 40-54 [facility] Laboratory - Chemistry and C hemistry - challengeOrdered By: Dalton Clarke on 01-22-2023 ALP [Catalytic activity/Vol] 138 U/L 45-117 [facility] ALT [Catalytic activity/Vol] 15 U/L 16-61 [facility] CO2 [Moles/Vol] 28.0 mmol/L 21.0-32.0 [facility] Globulin (S) [Mass/Vol] 3.7 g/dL 2.2-4.2 [facility] Magnesium [Mass/Vol] 1.8 mg/dL 1.6-2.[address] [facility] Urea nitrogen/Creatinine [Mass ratio] 11.6 mg/mg 10-20 [facility] Laboratory - Hematology and Cell countsOrdered By: Jay Easton on 01-22-2023 Erythrocyte distribution width (RBC) [Entitic vol] 44.7 fL 35.1-43.9 [facility] Erythrocyte distribution width (RBC) [Ratio] 12.8 % 11.6-14.6 [facility] MCH (RBC) [Entitic mass] 31.2 pg 27.0-32.0 [facility] MCHC Auto (RBC) [Mass/Vol]Or dered By: Jay Easton on 01-22-2023 MCHC (RBC) [Mass/Vol] 32.7 g/dL 32-36 [facility] No Panel InformationOrdered By: Dalton Clarke on 01-22-2023 Estimated GFR (MDRD) Amer 77 mL/min >60 [facility] Comment on above: GFR Calc Estimated GFR (MDRD) Non-Af Amer 63 mL/min >60 [facility] Comment on above: Non- GFR Calc Thyroid Stimulating Hormone (TSH) 0.49 uIU/mL 0.358-3.74 [facility] Vitamin D 25-Hydroxy 84.9 ng/mL [facility] Comment on above: Vitamin D 25(OH) Sta tus Range Deficiency <20 ng/mL (50nmol/L) Insufficiency 20 - 30 ng/mL (50 - 75 nmol/L) Sufficiency 30 - 100 ng/mL (75 - 250 nmol/L) Toxicity >100 ng/mL (>250 nmol/L) No Panel InformationOrdered By: Jay Easton on 01-22-2023 Vitamin B12 Level > 2000 pg/mL 211-911 [facility] Platelets bldOrdered By: Yanira Easton on 01-22-2023 Platelets (Bld) [#/Vol] 169 10*3/uL 150-450 [facility] Serum or plasma albumin gilma urement (mass/volume)Ordered By: Dalton Clarke on 01-22-2023 Albumin [Mass/Vol] 3.4 g/dL 3.2-5.0 [facility] Serum or plasma albumin/glob ulin mass ratioOrdered By: Dalton Clarke on 01-22-2023 Albumin/Globulin [Mass ratio] 0.9 {ratio} 0.9-2.4 [facility] Serum or plasma calcium gilma urement (mass/volume)Ordered By: Dalton Clarke on 01-22-2023 Calcium [Mass/Vol] 9.1 mg/dL 8.5-10.1 [facility] Serum or plasma cholesterol in HDL measurement (mass/volume)Ordered By: Dalton Clarke on 01-22-2023 Cholesterol in HDL [Mass/Vol] 63 mg/dL >40 [facility] Comment on above: The drugs N-Acetylcy steine and Metamizole may falsely depress this assay. Reference Range HDL <40 mg/dL Low HDL Cholesterol HDL >or= 60 mg/dL High HDL Cholesterol Serum or plasma cholesterol in VLDL measurement (mass/volume)Ordered By: Dalton Clarke on 01-22-2023 Cholesterol in VLDL [Mass/Vol] 9 mg/dL 5-40 [facility] Serum or plasma creatinine m easurement (mass/volume)Ordered By: Dalton Clarke on 01-22-2023 Creatinine [Mass/Vol] 1.21 mg/dL 0.70-1.30 [facility] Comment on above: The validity of the calculated GFR & GFRAA in patients over 70 years has not been determined. Clinical correlation is essential. Serum or plasma low density lipoprotein (LDL) cholesterol measurement (mass/volume)Ordered By: Dalton Clarke on 01-22-2023 Cholesterol in LDL [Mass/Vol] 33 mg/dL 0-130 [facility] Serum or plasma urea nitroge n measurement (mass/volume)Ordered By: Dalton Clarke on 01-22-2023 Urea nitrogen [Mass/Vol] 14 mg/dL 7-18 [facility] Thin prep Papanicolaou smear with manual screeningOrdered By: Dalton Clarke on 01-22-2023 Thin prep Papanicolaou smear with manual screening 15 U/L 15-[address] [facility] Thin prep Papanicolaou smear with manual screening 7 5-[address] [facility] No Panel InformationOrdered By: Dr. Pinto on 10-28-2022 Prostate Specific Antigen Screen 0.18 ng/mL 0.00-4.00 [facility] Comment on above: This test was perfor med using the TPSA assay method for [employer] chemistry system. Values obtained with differentassay methods cannot be used interchangably.When changing PSA assays in the course of monitoring apatient, additional sequential testing should be carriedout to confirm baseline values. Laboratory - Chemistry and C hemistry - challengeOrdered By: Dr. Thompson on 08-13-2022 Albumin [Mass/Vol] 3.5 g/dL 2.9-4.4 [facility] CK [Catalytic activity/Vol] 54 U/L 39-308 [facility] Cobalamin (Vitamin B12) [Mass/Vol] 374 pg/mL 211-911 [facility] Free T4 [Mass/Vol] 2.11 ng/dL 0.76-1.46 [facility] No Panel InformationOrdered By: Dr. Thompson on 08-13-2022 Addendum Document Comment . [facility] Comment on above: The SPE pattern appe ars unremarkable. Evidence ofmonoclonal protein is not apparent. Xlhcf-6-Pqrwpdlbr 0.3 g/dL 0.0-0.4 [facility] Oqlln-1-Gmxgfbgge 0.6 g/dL 0.4-1.0 [facility] Gamma Globulins 1.3 g/dL 0.4-1.8 [facility] TILE FINISHER Antibody 0.2 AI 0.0-0.9 [facility] Serum Immunofixation Comment: . [facility] Comment on above: Presence of monoclon al protein is unclear at this time. Suggestrepeat in 3 to 6 months if clinically indicated. Thyroid Stimulating Hormone (TSH) 0.26 uIU/mL 0.358-3.74 [facility] Protein Fractions Elph [Inte rp]Ordered By: Dr. Thompson on 08-13-2022 Protein Fractions [Interp] Comment . [facility] Comment on above: Protein electrophore sis scan will follow via computer,mail, or chicken buyer delivery. Serum Schmidt extractable nucl ear antibody detectionOrdered By: Dr. Thompson on 08-13-2022 Schmidt extractable nuclear Ab Ql (S) <0.2 AI 0.0-0.9 [facility] Serum albumin to globulin ra gardenia by protein electrophoresisOrdered By: Dr. Thompson on 08-13-2022 Albumin/Globulin Elph [Mass ratio] 1.2 0.7-1.7 [facility] Serum globulin measurement ( mass/volume)Ordered By: Dr. Thompson on 08-13-2022 Globulin (S) [Mass/Vol] 3.0 g/dL 2.2-3.9 [facility] Serum or plasma IgA measurem ent (mass/volume)Ordered By: Dr. Thompson on 08-13-2022 IgA [Mass/Vol] 169 mg/dL 61-437 [facility] Serum or plasma IgG measurem ent (mass/volume)Ordered By: Dr. Thompson on 08-13-2022 IgG [Mass/Vol] 1462 mg/dL 603-1613 [facility] Serum or plasma IgM measurem ent (mass/volume)Ordered By: Dr. Thompson on 08-13-2022 IgM [Mass/Vol] 84 mg/dL 20-172 [facility] Serum or plasma beta globuli n measurement by electrophoresis (mass/volume)Ordered By: Dr. Thompson on 08-13-2022 Beta globulin Elph [Mass/Vol] 0.8 g/dL 0.7-1.3 [facility] Serum or plasma folate measu rement (mass/volume)Ordered By: Dr. Thompson on 08-13-2022 Folate [Mass/Vol] 5.70 ng/mL 3.1-55.4 [facility] Serum or plasma methylmalona te measurement (moles/volume)Ordered By: Dr. Thompson on 08-13-2022 Methylmalonate [Moles/Vol] 1290 nmol/L 0-378 [facility] Comment on above: Performed at: [address] [id number] Director: Yaya Irving PhD, Phone: [phone] at: [email or web address] [id number] Director: Timothy Whitaker MD, Phone: [phone] Thin prep Papanicolaou smear with manual screeningOrdered By: Dr. Thompson on 08-13-2022 Thin prep Papanicolaou smear with manual screening See comment [facility] Comment on above: Result: Not Observed Thin prep Papanicolaou smear with manual screening 125 ug/dL 69-[address] [facility] Comment on above: Detection Limit = 5P erformed at: [facility] [id number] Director: Yaya Irving PhD, Phone: [phone] at: [email or web address] [id number] Director: Timothy Whitaker MD, Phone: [phone] Total protein bloodOrdered B y: Dr. Thompson on 08-13-2022 Protein [Mass/Vol] 6.5 g/dL 6.0-8.5 [facility] Whole blood hemoglobin A1c/t otal hemoglobin ratio (mass fraction)Ordered By: Dr. Thompson on 08-13-2022 HbA1c (Bld) [Mass fraction] 5.1 % 3.8-5.6 [facility] Comment on above: Normal < 5.7 % Predi abetic 5.7 - 6.4 % Diabetic >or= 6.5 % Please note range changes. Basophil percentageOrdered B y: Dr. Clarke on 07-09-2022 Bilirubin [Mass/Vol] 1.10 mg/dL 0.20-1.[address] [facility] Comment on above: For patients on eltr ombopag therapy, use of Dimension Evangeline TBIL is not recommended. Chloride [Moles/Vol] 98 mmol/L 98-[address] [facility] Glucose [Mass/Vol] 94 mg/dL 74-106 [facility] Potassium [Moles/Vol] 3.6 mmol/L 3.5-5.1 [facility] Protein [Mass/Vol] 7.5 g/dL 6.4-8.2 [facility] Sodium [Moles/Vol] 136 mmol/L 136-145 [facility] Laboratory - Chemistry and C hemistry - challengeOrdered By: Dr. Clarke on 07-09-2022 ALP [Catalytic activity/Vol] 126 U/L 45-117 [facility] ALT [Catalytic activity/Vol] 26 U/L 16-61 [facility] CK [Catalytic activity/Vol] 53 U/L 39-308 [facility] CO2 [Moles/Vol] 28.0 mmol/L 21.0-32.0 [facility] Globulin (S) [Mass/Vol] 4.0 g/dL 2.2-4.2 [facility] Urea nitrogen/Creatinine [Mass ratio] 12.0 mg/mg 10-20 [facility] No Panel InformationOrdered By: Dr. Clarke on 07-09-2022 Estimated GFR (MDRD) Amer 80 mL/min >60 [facility] Comment on above: GFR Calc Estimated GFR (MDRD) Non-Af Amer 66 mL/min >60 [facility] Comment on above: Non- GFR Calc Thyroid Stimulating Hormone (TSH) 0.84 uIU/mL 0.358-3.74 [facility] Vitamin D 25-Hydroxy 80.0 ng/mL [facility] Comment on above: Vitamin D 25(OH) Sta tus Range Deficiency <20 ng/mL (50nmol/L) Insufficiency 20 - 30 ng/mL (50 - 75 nmol/L) Sufficiency 30 - 100 ng/mL (75 - 250 nmol/L) Toxicity >100 ng/mL (>250 nmol/L) Serum or plasma albumin gilma urement (mass/volume)Ordered By: Dr. Clarke on 07-09-2022 Albumin [Mass/Vol] 3.5 g/dL 3.2-5.0 [facility] Serum or plasma albumin/glob ulin mass ratioOrdered By: Dr. Clarke on 07-09-2022 Albumin/Globulin [Mass ratio] 0.9 {ratio} 0.9-2.4 [facility] Serum or plasma calcium gilma urement (mass/volume)Ordered By: Dr. Clarke on 07-09-2022 Calcium [Mass/Vol] 10.1 mg/dL 8.5-10.1 [facility] Serum or plasma creatinine m easurement (mass/volume)Ordered By: Dr. Clarke on 07-09-2022 Creatinine [Mass/Vol] 1.17 mg/dL 0.70-1.30 [facility] Comment on above: The validity of the calculated GFR & GFRAA in patients over 70 years has not been determined. Clinical correlation is essential. Serum or plasma urea nitroge n measurement (mass/volume)Ordered By: Dr. Clarke on 07-09-2022 Urea nitrogen [Mass/Vol] 14 mg/dL 7-18 [facility] Thin prep Papanicolaou smear with manual screeningOrdered By: Dr. Clarke on 07-09-2022 Thin prep Papanicolaou smear with manual screening 19 U/L 15-[address] [facility] Thin prep Papanicolaou smear with manual screening 10 5-[address] [facility] No Panel Informationon 08-10 Culture Urine <10,000 cfu/ml. No Significant growth. Sensitivity not indicated. [facility] Work Phone: LABORATORYOrdered By: Chelo Hernandez on 06-27-2021 Basophil, Absolute 0.10 103/mcL Invalid Interpretation Code 0.00 - 0.19 10^3/mcL AO Auto Heme SS Basophils/100 WBC (Bld) 0.8 % Invalid Interpretation Code 0.0 - 2.5 % AO Auto Heme SS Eosinophil, Absolute 0.10 103/mcL Invalid Interpretation Code 0.00 - 0.40 10^3/mcL AO Auto Heme SS Eosinophils/100 WBC (Bld) 0.8 % Invali d Interpretation Code 0.0 - 7.0 % AO Auto Heme SS Erythrocyte distribution width (RBC) [Ratio] 14.0 % Invalid Interpretation Code 11.5 - 14.5 % AO Auto Heme SS Hematocrit (Bld) [Volume fraction] 43.7 % Invalid Interpretation Code 42.0 - 52.0 % AO Auto Heme SS Hemoglobin (Bld) [Mass/Vol] 15.0 G/dL Inva lid Interpretation Code 14.0 - 18.0 G/dL AO Auto Heme SS Lymphocyte, Absolute 1.40 103/mcL Invalid Interpretation Code 0.77 - 3.85 10^3/mcL AO Auto Heme SS Lymphocytes/100 WBC (Bld) 16.2 % Invali d Interpretation Code 10.0 - 50.0 % AO Auto Heme SS MCH (RBC) [Entitic mass] 32.4 pg Invalid Interpretation Code 27.0 - 31.2 pg AO Auto Heme SS MCHC (RBC) [Mass/Vol] 34.2 G/dL Invalid Interpretation Code 31.8 - 35.4 G/dL AO Auto Heme SS MCV (RBC) [Entitic vol] 94.6 fL Invalid Interpretation Code 80.0 - 94.0 fL AO Auto Heme SS Monocyte, Absolute 1.00 103/mcL Invalid Interpretation Code 0.15 - 1.00 10^3/mcL AO Auto Heme SS Monocytes/100 WBC (Bld) 11.5 % Invalid Interpretation Code 1.7 - 13.0 % AO Auto Heme SS Neutrophil, Absolute 6.10 103/mcL Invalid Interpretation Code 2.85 - 6.16 10^3/mcL AO Auto Heme SS Neutrophils/100 WBC (Bld) 70.7 % Invali d Interpretation Code 37.0 - 80.0 % AO Auto Heme SS Platelet mean volume (Bld) [Entitic vol] 9.3 fL Invalid Interpretation Code 7.4 - 10.4 fL AO Auto Heme SS Platelets (Bld) [#/Vol] 231 103/mcL Invalid Interpretation Code 130 - 400 10^3/mcL AO Auto Heme SS RBC (Bld) [#/Vol] 4.62 106/mcL Invalid Interpretation Code 4.04 - 6.13 10^6/mcL AO Auto Heme SS WBC (Bld) [#/Vol] 8.70 103/mcL Invalid Interpretation Code 4.60 - 10.80 10^3/mcL AO Auto Heme SS LABORATORYOrdered By: Elvira Hernandez on 06-27-2021 Natriuretic peptide.B prohormone N-Terminal [Mass/Vol] 1886 pg/mL Invalid Interpretation Code 0 - 125 pg/mL AO ADM SS CNOVon 04-28-2018 CNOV Office Visit ([id number]) RAMÓN THOMAS ([id number]) 1955 MDate Time Provider [id number]/13/18 10:30 AM STEVE QUIÑONES [id number] During your visit today, we recorded the following information about you: Respiration Weight Height 16/minute 115.7 kg 1.727 [employer] 04/28/2018 10:39 AM SignedREVIEW OF SYSTEMS:GENERAL:PAIN: Pain left wristCARDIOVASCULAR: Negative for chest pain, leg swelling and palpations.MSK: Negative for joint pain, swelling, back pain, muscle pain.SKIN: Negative for lesions, rash, itching, metal sensitivityNEURO: Negative for seizure, trauma, numbness/tingling of extremities.ENDOCRINE: Negative for Diabetes Type 1 and Type 2HEMATOLOGY: blood thinnerAnjulltano Quiñones MD 04/28/2018 10:39 AM [id number]/2018Name:Tejas Lynn MarthaDate of :1955History of Chief Complaint: Ramón is seeing me as a new patient today. Hecomplains of pain of the left wrist only when lifting/ use. This has been goingon for years. Patient is retired. Only has pain when lifting items, otherwiseno pain. Was told that he has a dislocated wrist. Has wrist cock up splint andwears when it is convenient. No numbness or tingling.PAST MEDICAL HISTORYDiagnosis Date- A-fib (HCC)- High cholesterol- Hx of heart disorder- Hypertension- HypothyroidPAST SURGICAL HISTORYProcedure Laterality Date- PAST SURGICAL HISTORY OF Bilateral CTR- PAST SURGICAL HISTORY OF chest- PAST SURGICAL HISTORY OF Right ulnar nerve- TONSILLECTOMY AND ADENOIDECTOMY HXSocial History Marital status: Single Spouse name: Years of education: Number of children:Occupational HistoryOccupation Employer CommentnoneSocial History Main Topics Smoking status: Never Smoker Smokeless tobacco: Never Used Alcohol use: NoALLERGIESAllergen Reactions- Tetracycline SwellingCurrent Outpatient Prescriptions:Levothyr oxine 137 mcg ORAL Cap Take one(1) tablet daily. Disp: Rfl: 0pravastatin 20 mg ORAL tablet Take one(1) tablet daily. Disp: Rfl: 0furosemide (LASIX) 80 mg ORAL tablet Take one(1) tablet daily. Disp: Rfl: 0metoprolol tartrate 50 mg ORAL tablet Take one(1) tablet two(2) times daily.Disp: Rfl: 0amiodarone 200 mg ORAL tablet Take one(1) tablet daily. Disp: Rfl: 0Cholecalciferol, Vitamin D3, 50,000 unit ORAL Cap one tab weekly Disp: Rfl: 0spironolactone (ALDACTONE) 25 mg ORAL tablet Take one(1) tablet daily. Disp:Rfl: 0COMPOUNDED PRESCRIPTION Pt uses CPAP at night Disp: Rfl: 0CALCIUM 500 MG TAB 600mg each day Disp: Rfl: 0brompheniramine maleate(LODRANE 24 EXTENDED RELEASE 12 MG 24 HR CAP) asnecessary Disp: Rfl: 0FLUTICASONE 50 MCG/ACTUATION NASAL SPRAY, SUSP Take two(2) puffs twice dailyvia spacer then rinse and gargle mouth with water. Disp: Rfl: 0warfarin (COUMADIN) 2.5 mg ORAL tablet Take as directed. Disp: Rfl: 0METFORMIN 500 MG TAB Take one(1) tablet daily. Disp: Rfl: 0alendronate sodium(FOSAMAX 70 MG TAB) Take once per week in the morning with afull glass of water, on an empty stomach, and do not take anything else bymouth or lie down for the next 30 minutes. Disp: Rfl: 0No current facility-administered medications for this visit.VITALSResp 16 Ht 172.7 cm (5' 8) Wt 115.7 kg (255 lb) BMI 38.77 kg/m?PHYSICAL EXAMINATION:General: he is a well developed, well nourished malePsyche: he is alert and oriented and cooperative to our examinationSkin: Skin condition is healthy without rashes or erythema.Cadiovascular : Palpable radial pulse with brisk cap refill distallyNeck: Supple with no JVDLymph: There is no palpable epitrochlearPulmonary: he has non labored breathing. There is no evidence of cyanosis.There is no clubbing of his fingernails. he has no pursed lips.Neuro: he is alert and oriented x3. There are no focal neurologic deficits. Seesensation exam below.Head: Normocephalic and atraumaticMusculoskele juan: There is no swelling or ecchymosis. There are no skinlacerations or abrasions. There are no Heberden's or Mauro's nodes. Thereis no boutonniere or swan-neck deformity of the fingers. There is no ulnardrift of the fingers. There is no intrinsic muscular atrophy. There is anegative shoulder sign over the thumb CMC joint. There is no dorsalsubluxation of the ulnar head. No real swelling. There is positive Watsonmaneuver. Minimal tenderness over redial carpal joint dorsally. DRUJ is stable.Sensation is intact. 30 degrees of wrist extension and 80 degrees of wristflexion. Makes a full composite fist with no issues.Imaging: PA lateral and oblique films of the left wrist shows collapse of thelunate consistent with Kienbock's disease. Significant arthrosis at the radiallunate joint and radial scaphoid.Assessment:1. Kienbock's disease, left2. Arthritis of left wristPlan:I have a hard time recommending something to correct the very mild symptomsthat the patient is experiencing. I have explained that this is major surgeryand that it would require a fusion of the wrist. I have explained that if hedecides to have it done now or in the future, that this is the only option torepair this. If symptoms worsen, call the office and we can proceed withsurgery if he wishes. Return to see me as needed. Continue using wrist brace.All of the patients questions have been answered to his satisfaction.--------- Scri be Attestation Statement:Scribe Statement: I, Ruddy Rivera, am scribing for, and in the presence ofMarisol Chaves: Ruddy Rivera Clinician Attestation Statement: The information in this document, created bythe medical staff director for me, accurately reflects the services I personallyperformed and the decisions made by me. I have reviewed and approved thisdocument for accuracy.Steve Quiñones, KYLERlelawrence note: This note has been produced using speech recognition software andmay contain errors related to that system including grammar, punctuation,spelling, gender and words and phrases that may be inappropriate.Referrin g Provider: SELF [200]Allergies As of Date: 04/28/2018 Noted Allergy ReactionTETRACYCLINE 10/20/2008 7 - SwellingDate Reviewed: 04/28/2018Reviewed by: Steve Quiñones Jr. - Fully AssessedReason for Visit: New Patient [172] Cmt: Left wristPrimary Visit Diagnosis:Kienbock's disease, left [M92.212] Other Visit Diagnosis:Arthritis of left wrist [M19.032]Prescriptions as of 04/28/2018 Sig: * LEVOTHYROXINE 137 MCG CAPSULE Take one(1) tablet daily. * PRAVASTATIN 20 MG TABLET Take one(1) tablet daily. * FUROSEMIDE 80 MG TABLET Take one(1) tablet daily. * METOPROLOL TARTRATE 50 MG TAB* Take one(1) tablet two(2) ana luisa* * AMIODARONE 200 MG TABLET Take one(1) tablet daily. * CHOLECALCIFEROL (VITAMIN D3) * one tab weekly * SPIRONOLACTONE 25 MG TABLET Take one(1) tablet daily. * COMPOUNDED PRESCRIPTION Pt uses CPAP at night * CALCIUM 500 MG TABLET 600mg each day * LODRANE ER 12 MG CAPSULE,EXTE* as necessary * FLUTICASONE 50 MCG/ACTUATION * Take two(2) puffs twice daily* * WARFARIN 2.5 MG TABLET Take as directed. * METFORMIN 500 MG TABLET Take one(1) tablet daily. 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 PROGRESSon 04-28-2018 Protein mass conc HNO ID: [id number]: Steve Quiñones Jr.Service: (none)Author Type: PhysicianType: Progress NotesFiled: 04/28/2018 10:39 AMNote Text:04/28/2018Name:Ra sofia Lynn TurnerDate of :1955History of Chief Complaint: Ramón is seeing me as a new patient today. Hecomplains of pain of the left wrist only when lifting/ use. This has beengoing on for years. Patient is retired. Only has pain when lifting items,otherwise no pain. Was told that he has a dislocated wrist. Has wrist cockup splint and wears when it is convenient. No numbness or tingling.PAST MEDICAL HISTORYDiagnosis Date- A-fib (HCC)- High cholesterol- Hx of heart disorder- Hypertension- HypothyroidPAST SURGICAL HISTORYProcedure Laterality Date- PAST SURGICAL HISTORY OF Bilateral CTR- PAST SURGICAL HISTORY OF chest- PAST SURGICAL HISTORY OF Right ulnar nerve- TONSILLECTOMY AND ADENOIDECTOMY HXSocial History Marital status: Single Spouse name: Years of education: Number of children:Occupational HistoryOccupation Employer CommentnoneSocial History Main Topics Smoking status: Never Smoker Smokeless tobacco: Never Used Alcohol use: NoALLERGIESAllergen Reactions- Tetracycline SwellingCurrent Outpatient Prescriptions:Levothyr oxine 137 mcg ORAL Cap Take one(1) tablet daily. Disp: Rfl: 0pravastatin 20 mg ORAL tablet Take one(1) tablet daily. Disp: Rfl: 0furosemide (LASIX) 80 mg ORAL tablet Take one(1) tablet daily. Disp: Rfl:0metoprolol tartrate 50 mg ORAL tablet Take one(1) tablet two(2) timesdaily. Disp: Rfl: 0amiodarone 200 mg ORAL tablet Take one(1) tablet daily. Disp: Rfl: 0Cholecalciferol, Vitamin D3, 50,000 unit ORAL Cap one tab weekly Disp:Rfl: 0spironolactone (ALDACTONE) 25 mg ORAL tablet Take one(1) tablet daily.Disp: Rfl: 0COMPOUNDED PRESCRIPTION Pt uses CPAP at night Disp: Rfl: 0CALCIUM 500 MG TAB 600mg each day Disp: Rfl: 0brompheniramine maleate(LODRANE 24 EXTENDED RELEASE 12 MG 24 HR CAP) asnecessary Disp: Rfl: 0FLUTICASONE 50 MCG/ACTUATION NASAL SPRAY, SUSP Take two(2) puffs twicedaily via spacer then rinse and gargle mouth with water. Disp: Rfl: 0warfarin (COUMADIN) 2.5 mg ORAL tablet Take as directed. Disp: Rfl: 0METFORMIN 500 MG TAB Take one(1) tablet daily. Disp: Rfl: 0alendronate sodium(FOSAMAX 70 MG TAB) Take once per week in the morningwith a full glass of water, on an empty stomach, and do not take anythingelse by mouth or lie down for the next 30 minutes. Disp: Rfl: 0No current facility-administered medications for this visit.VITALSResp 16 Ht 172.7 cm (5' 8) Wt 115.7 kg (255 lb) BMI 38.77 kg/m?PHYSICAL EXAMINATION:General: he is a well developed, well nourished malePsyche: he is alert and oriented and cooperative to our examinationSkin: Skin condition is healthy without rashes or erythema.Cadiovascular : Palpable radial pulse with brisk cap refill distallyNeck: Supple with no JVDLymph: There is no palpable epitrochlearPulmonary: he has non labored breathing. There is no evidence ofcyanosis. There is no clubbing of his fingernails. he has no pursed lips.Neuro: he is alert and oriented x3. There are no focal neurologicdeficits. See sensation exam below.Head: Normocephalic and atraumaticMusculoskele juan: There is no swelling or ecchymosis. There are no skinlacerations or abrasions. There are no Heberden's or Mauro's nodes.There is no boutonniere or swan-neck deformity of the fingers. There isno ulnar drift of the fingers. There is no intrinsic muscular atrophy.There is a negative shoulder sign over the thumb CMC joint. There is nodorsal subluxation of the ulnar head. No real swelling. There is positiveWatson maneuver. Minimal tenderness over redial carpal joint dorsally.DRUJ is stable. Sensation is intact. 30 degrees of wrist extension and 80degrees of wrist flexion. Makes a full composite fist with no issues.Imaging: PA lateral and oblique films of the left wrist shows collapse ofthe lunate consistent with Kienbock's disease. Significant arthrosis atthe radial lunate joint and radial scaphoid.Assessment:1. Kienbock's disease, left2. Arthritis of left wristPlan:I have a hard time recommending something to correct the very mildsymptoms that the patient is experiencing. I have explained that this ismajor surgery and that it would require a fusion of the wrist. I haveexplained that if he decides to have it done now or in the future, thatthis is the only option to repair this. If symptoms worsen, call theoffice and we can proceed with surgery if he wishes. Return to see me asneeded. Continue using wrist brace.All of the patients questions have been answered to his satisfaction.--------- Scri be Attestation Statement:Scribe Statement: I, Ruddy Rivera, am scribing for, and in the presence ofMarisol Chaves: Ruddy Rivera Clinician Attestation Statement: The information in this document, createdby the medical staff director for me, accurately reflects the services Ipersonally performed and the decisions made by me. I have reviewed andapproved this document for accuracy.Smith Chaves note: This note has been produced using speech recognition softwareand may contain errors related to that system including grammar,punctuation, spelling, gender and words and phrases that may beinappropriate. Normal [facility] Protein mass conc HNO ID: [id number]: Sushma Saldana TECHService: (none)Author Type: (none)Type: Progress NotesFiled: 04/28/2018 10:39 AMNote Text:REVIEW OF SYSTEMS:GENERAL:PAIN: Pain left wristCARDIOVASCULAR: Negative for chest pain, leg swelling and palpations.MSK: Negative for joint pain, swelling, back pain, muscle pain.SKIN: Negative for lesions, rash, itching, metal sensitivityNEURO: Negative for seizure, trauma, numbness/tingling of extremities.ENDOCRINE: Negative for Diabetes Type 1 and Type 2HEMATOLOGY: blood thinner Normal [facility] Otheron 10-25-2008 CONVERTED CLINICAL HISTORY OPERATIVE PRO CEDURE:: Bone marrow bx CLINICAL INFORMATION: 53 YOM with a given history of pancytopenia. CBC (10/21/08): WBC 3.5 (73.2% neutrophils, 18.1% lymphocytes, 4.2% monocytes, 2.8% eosinophils, and 1.7% basophils), RBC 3.76, hemoglobin 10.7, hematocrit 32.6, MCV 86.7, MCH 28.5, MCHC 32.8, RDW 16.7, and platelet count 5000. [facility] CONVERTED ELECTRONIC SIGNATURE ELSA BAUTISTA M.D., PATHOLOGIST (Electronic signature on file) Final Signed Out: 10/25/2008 14:09 [facility] CONVERTED FINAL DIAGNOSIS DIAGNOSIS: BONE MARROW, CORE BIOPSY AND ASPIRATE - MILDLY HYPERCELLULAR MARROW WITH MILD MATURATIONAL ABNORMALITIES. MYELODYSPLASIA CANNOT BE ENTIRELY EXCLUDED. STORAGE IRON ABSENT. SEE BELOW. SPECIMEN: BONE MARROW BIOPSY [facility] CONVERTED GROSS DESCRIPTION GROSS DESCRI PTION: Not applicable [facility] CONVERTED MICROSCOPIC DESCRIPTION MICROSCOPIC DESCRIPTION: The aspirate smears contain abundant trilineage hematopoiesis present for evaluation. Full maturation is identified in all cell lines. There are very mild and focal maturational abnormalities seen in all of the cell lines; however, the features are not felt to be diagnostic of definite myelodysplasia. Megakaryocytes are mildly increased. There is no evidence of atypical or malignant infiltrates identified. An iron-stained aspirate smear reveals no evidence of storage iron or increased ringed sideroblasts. The decalcified core biopsy is mildly hypercellular at approximately 75%. There is trilineage hematopoiesis present with a decreased myeloid to erythroid ratio due to predominantly to increased erythroid elements. Megakaryocytes are increased in number and do show focal clustering. A reticulin stain reveals no evidence of fibrosis. An iron stain reveals no evidence of storage iron present. A PAS stain is reviewed. In order to further evaluate this marrow, aspirate material was submitted for immunophenotyping by flow cytometry. Briefly, these results reveal unremarkable bone marrow elements with no abnormal myeloid maturation identified immunophenotypically. The overall features of the marrow suggest the possibility of an early or mild myelodysplasia. Aspirate material has been submitted for cytogenetic studies which will be useful in further clarifying this issue. These results will be reported separately. EDS/gpl [facility] CONVERTED ORDERING PROVIDER Ordering Pro vider: MEGHAN RMAEY [facility] Vital Signs Date Time Vital Sign Value Performing Clinician Faci michael 01-18-2025 10:47-0400 Body height 172.[address] Jay Easton DO Work Phone: [facility] 01-18-2025 10:47-0400 Body mass index (BMI) [Ratio] 29.6 kg/m2 Dr. Jay Easton DO Work Phone: [facility] 01-18-2025 10:47-0400 Body weight 88.[address] Jay Easton DO Work Phone: [facility] 01-18-2025 10:47-0400 Diastolic blood pressure 75 mm[Hg] Dr. Jay Easton DO Work Phone: [facility] 01-18-2025 10:47-0400 Heart rate 75 /min Dr. Jay Easton DO Work Phone: [facility] 01-18-2025 10:47-0400 SaO2% (BldA) [Mass fraction] 98 % Dr. Jay Easton DO Work Phone: [facility] 01-18-2025 10:47-0400 Systolic blood pressure 112 mm[Hg] Dr. Jay Easton DO Work Phone: [facility] 01-17-2025 11:41-0400 Body height 172.[address] Jay Easton DO Work Phone: [facility] 01-17-2025 11:41-0400 Body mass index (BMI) [Ratio] 29 kg/m2 Dr. Jay Easton DO Work Phone: [facility] 01-17-2025 11:41-0400 Body temperature 97.6 [degF] Dr. Jay Easton DO Work Phone: [facility] 01-17-2025 11:41-0400 Body weight 86.[address] Jay Easton DO Work Phone: [facility] 01-17-2025 11:41-0400 Diastolic blood pressure 75 mm[Hg] Dr. Jay Easton DO Work Phone: [facility] 01-17-2025 11:41-0400 Heart rate 80 /min Dr. Jay Easton DO Work Phone: [facility] 01-17-2025 11:41-0400 Respiratory rate 14 /min Dr. Jay Easton DO Work Phone: [facility] 01-17-2025 11:41-0400 SaO2% (BldA) [Mass fraction] 97 % Dr. Jay Easton DO Work Phone: [facility] 01-17-2025 11:41-0400 Systolic blood pressure 110 mm[Hg] Dr. Jay Easton DO Work Phone: [facility] 12-30-2024 13:04-0400 Diastolic blood pressure 75 mm[Hg] Dr. Jay Easton DO Work Phone: [facility] 12-30-2024 13:04-0400 Heart rate 81 /min Dr. Jay Easton DO Work Phone: [facility] 12-30-2024 13:04-0400 Respiratory rate 12 /min Dr. Jay Easton DO Work Phone: [facility] 12-30-2024 13:04-0400 SaO2% (BldA) [Mass fraction] 99 % Dr. Jay Easton DO Work Phone: [facility] 12-30-2024 13:04-0400 Systolic blood pressure 107 mm[Hg] Dr. Jay Easton DO Work Phone: [facility] 12-30-2024 11:03-0400 Inhaled oxygen flow rate 2 L/min Dr. Jay Easton DO Work Phone: [facility] 12-30-2024 09:57-0400 Body height 172.[address] Jay Easton DO Work Phone: [facility] 12-30-2024 09:57-0400 Body mass index (BMI) [Ratio] 27.3 kg/m2 Dr. Jay Easton DO Work Phone: [facility] 12-30-2024 09:57-0400 Body temperature 97.2 [degF] Dr. Jay Easton DO Work Phone: [facility] 12-30-2024 09:57-0400 Body weight 81.[address] Jay Easton DO Work Phone: [facility] 12-13-2024 14:49-0400 Body height 172.[address] Jay Easton DO Work Phone: [facility] 12-13-2024 14:49-0400 Body mass index (BMI) [Ratio] 28.8 kg/m2 Dr. Jay Easton DO Work Phone: [facility] 12-13-2024 14:49-0400 Body temperature 97.5 [degF] Dr. Jay Easton DO Work Phone: [facility] 12-13-2024 14:49-0400 Body weight 85.[address] Jay Easton DO Work Phone: [facility] 12-13-2024 14:49-0400 Diastolic blood pressure 78 mm[Hg] Dr. Jay Easton DO Work Phone: [facility] 12-13-2024 14:49-0400 Heart rate 84 /min Dr. Jay Easton DO Work Phone: [facility] 12-13-2024 14:49-0400 Respiratory rate 16 /min Dr. Jay Easton DO Work Phone: [facility] 12-13-2024 14:49-0400 SaO2% (BldA) [Mass fraction] 97 % Dr. Jay Easton DO Work Phone: [facility] 12-13-2024 14:49-0400 Systolic blood pressure 96 mm[Hg] Dr. Jay Easton DO Work Phone: [facility] 07-12-2024 13:44-0500 Body height 172.[address] Jay Easton DO Work Phone: [facility] 07-12-2024 13:44-0500 Body mass index (BMI) [Ratio] 29.6 kg/m2 Dr. Jay Easton DO Work Phone: [facility] 07-12-2024 13:44-0500 Body weight 88.[address] Jay Easton DO Work Phone: [facility] 07-12-2024 13:44-0500 Diastolic blood pressure 64 mm[Hg] Dr. Jay Easton DO Work Phone: [facility] 07-12-2024 13:44-0500 Heart rate 49 /min Dr. Jay Easton DO Work Phone: [facility] 07-12-2024 13:44-0500 SaO2% (BldA) [Mass fraction] 92 % Dr. Jay Easton DO Work Phone: [facility] 07-12-2024 13:44-0500 Systolic blood pressure 96 mm[Hg] Dr. Jay Easton DO Work Phone: [facility] 08-05-2023 16:02-0500 Body temperature 97.4 [degF] Dr. Jay Easton Work Phone: [facility] 08-05-2023 16:02-0500 Diastolic blood pressure 72 mm[Hg] Dr. Jay Easton Work Phone: [facility] 08-05-2023 16:02-0500 Heart rate 95 /min Dr. Jay Easton Work Phone: [facility] 08-05-2023 16:02-0500 Respiratory rate 18 /min Dr. Jay Easton Work Phone: [facility] 08-05-2023 16:02-0500 SaO2% (BldA) [Mass fraction] 97 % Dr. Jay Easton Work Phone: [facility] 08-05-2023 16:02-0500 Systolic blood pressure 109 mm[Hg] Dr. Jay Easton Work Phone: [facility] 08-05-2023 13:36-0500 Body height 172.[address] Jay Easton Work Phone: [facility] 08-05-2023 13:36-0500 Body mass index (BMI) [Ratio] 31.9 kg/m2 Dr. Jay Easton Work Phone: [facility] 08-05-2023 13:36-0500 Body weight 95.[address] Jay Easton Work Phone: [facility] 07-10-2023 09:34-0500 Body mass index (BMI) [Ratio] 33.4 kg/m2 Dr. Jay Easton Work Phone: [facility] 07-10-2023 09:34-0500 Body weight 99.[address] Jay Easton Work Phone: [facility] 06-28-2023 16:34-0500 Body temperature 98.5 [degF] Dr. Jay Easton Work Phone: [facility] 06-28-2023 16:34-0500 Diastolic blood pressure 56 mm[Hg] Dr. Jay Easton Work Phone: [facility] 06-28-2023 16:34-0500 Heart rate 65 /min Dr. Jay Easton Work Phone: [facility] 06-28-2023 16:34-0500 Respiratory rate 18 /min Dr. Jay Easton Work Phone: [facility] 06-28-2023 16:34-0500 SaO2% (BldA) [Mass fraction] 96 % Dr. Jay Easton Work Phone: [facility] 06-28-2023 16:34-0500 Systolic blood pressure 93 mm[Hg] Dr. Jay Easton Work Phone: [facility] 06-28-2023 06:00-0500 Body mass index (BMI) [Ratio] 32.8 kg/m2 Dr. Jay Easton Work Phone: [facility] 06-28-2023 06:00-0500 Body weight 98.[address] Jay Easton Work Phone: [facility] 06-27-2023 14:04-0500 Body height 172.[address] Jay Easton Work Phone: [facility] 06-27-2023 09:52-0500 Inhaled oxygen flow rate 2 L/min Dr. Jay Easton Work Phone: [facility] 06-26-2023 16:30-0500 Body temperature 98.8 [degF] [facility] 06-26-2023 16:30-0500 Diastolic blood pressure 66 mm[Hg] [facility] 06-26-2023 16:30-0500 Heart rate 103 /min [facility] 06-26-2023 16:30-0500 Respiratory rate 17 /min [facility] 06-26-2023 16:30-0500 SaO2% (BldA) [Mass fraction] 99 % [facility] 06-26-2023 16:30-0500 Systolic blood pressure 96 mm[Hg] [facility] 06-26-2023 14:35-0500 Body mass index (BMI) [Ratio] 33.2 kg/m2 [facility] 06-26-2023 14:35-0500 Body weight 99 kg [facility] 06-26-2023 12:58-0500 Body height 172.72 cm [facility] 06-18-2023 17:18-0500 Body temperature 97.6 [degF] [facility] 06-18-2023 17:18-0500 Diastolic blood pressure 65 mm[Hg] [facility] 06-18-2023 17:18-0500 Heart rate 105 /min [facility] 06-18-2023 17:18-0500 Respiratory rate 18 /min [facility] 06-18-2023 17:18-0500 SaO2% (BldA) [Mass fraction] 98 % [facility] 06-18-2023 17:18-0500 Systolic blood pressure 104 mm[Hg] [facility] 02-18-2023 13:28-0400 Body height 175.[address] Jay Easton Work Phone: [facility] 02-18-2023 13:28-0400 Body mass index (BMI) [Ratio] 32.1 kg/m2 Dr. Jay Easton Work Phone: [facility] 02-18-2023 13:28-0400 Body temperature 98.9 [degF] Dr. Jay Easton Work Phone: [facility] 02-18-2023 13:28-0400 Body weight 98.[address] Jay Easton Work Phone: [facility] 02-18-2023 13:28-0400 Diastolic blood pressure 61 mm[Hg] Dr. Jay Easton Work Phone: [facility] 02-18-2023 13:28-0400 Heart rate 86 /min Dr. Jay Easton Work Phone: [facility] 02-18-2023 13:28-0400 Respiratory rate 18 /min Dr. Jay Easton Work Phone: [facility] 02-18-2023 13:28-0400 SaO2% (BldA) [Mass fraction] 95 % Dr. Jay Easton Work Phone: [facility] 02-18-2023 13:28-0400 Systolic blood pressure 97 mm[Hg] Dr. Jay Easton Work Phone: [facility] 11-12-2022 15:01-0400 Body height 175.[address] Jay Easton Work Phone: [facility] 11-12-2022 15:00-0400 Body mass index (BMI) [Ratio] 34 kg/m2 Dr. Jay Easton Work Phone: [facility] 11-12-2022 15:00-0400 Body temperature 98.4 [degF] Dr. Jay Easton Work Phone: [facility] 11-12-2022 15:00-0400 Body weight 104.[address] Jay Easton Work Phone: [facility] 11-12-2022 15:00-0400 Diastolic blood pressure 42 mm[Hg] Dr. Jay Easton Work Phone: [facility] 11-12-2022 15:00-0400 Heart rate 71 /min Dr. Jay Easton Work Phone: [facility] 11-12-2022 15:00-0400 Respiratory rate 16 /min Dr. Jay Easton Work Phone: [facility] 11-12-2022 15:00-0400 SaO2% (BldA) [Mass fraction] 95 % Dr. Jay Easton Work Phone: [facility] 11-12-2022 15:00-0400 Systolic blood pressure 78 mm[Hg] Dr. Jay Easton Work Phone: [facility] 10-28-2022 14:59-0400 Body mass index (BMI) [Ratio] 33 kg/m2 Dr. Jay Easton Work Phone: [facility] 10-28-2022 14:59-0400 Body temperature 98.2 [degF] Dr. Jay Easton Work Phone: [facility] 10-28-2022 14:59-0400 Body weight 101.[address] Jay Easton Work Phone: [facility] 10-28-2022 14:59-0400 Diastolic blood pressure 64 mm[Hg] Dr. Jay Easton Work Phone: [facility] 10-28-2022 14:59-0400 Heart rate 72 /min Dr. Jay Easton Work Phone: [facility] 10-28-2022 14:59-0400 Respiratory rate 16 /min Dr. Jay Easton Work Phone: [facility] 10-28-2022 14:59-0400 SaO2% (BldA) [Mass fraction] 98 % Dr. Jay Easton Work Phone: [facility] 10-28-2022 14:59-0400 Systolic blood pressure 111 mm[Hg] Dr. Jay Easton Work Phone: [facility] Encounters Encounter Date Encounter Type Care Provider Facility Start: 04-26-2025 End: 04-26-2025 ambulatory Jay Easton [place]: 04-20-2025 End: 04-20-[address] JAY EASTON DO Facility[facility] Start: 04-20-2025 End: 04-20-[address] HAILEY GUERRERO MD [facility] Start: 04-18-2025 ambulatory Jay Easton Facility:[facility] Start: 04-12-[address] JAY EASTON DO [facility] ty:A Start: 04-12-2025 End: 04-12-[address] JAY EASTON DO [facility] Start: 04-12-2025 End: 04-12-[address] JAY EASTON DO [facility] Start: 03-28-2025 End: 03-28-[address] HAILEY GUERRERO MD [facility] Start: 03-28-2025 End: 03-28-[address] HAILEY GUERRERO MD [facility] Start: 03-13-[address] JAY Carroll ty:[facility] Start: 02-15-2025 End: 02-15-[address] Jay Easton DO Work Phone: -Laboratory Start: 02-15-2025 End: 02-15-[address] Sami Beckwith MD -Laboratory Work Phone: Start: 02-15-2025 End: 02-15-2025 ambulatory Jay Easton Facility:[facility] Start: 01-25-2025 End: 01-29-[address] JAY EASTON DO Facility:[facility] Start: 01-25-2025 End: 01-29-[address] JAY EASTON DO [facility] Start: 01-18-2025 End: 01-18-[address] Behzad Glez MD -[facility] Work Phone: Start: 01-18-2025 End: 01-18-[address] Jay Eatson DO Work Phone: [facility] Start: 01-17-[address] Horacio Pinto MD -[facility] Start: 01-17-2025 End: 01-17-[address] Sukhjinder Pinto MD -[facility] Work Phone: Start: 01-17-2025 End: 01-17-[address] Jay Easton DO Work Phone: -[facility] Start: 01-05-2025 Encounter for other preprocedural examination Sukhjinder Pinto [facility] Start: 12-30-2024 End: 12-30-[address] Jay Easton DO Work Phone: -[facility] Start: 12-30-2024 End: 12-30-[address] Sukhjinder Pinto MD -[facility] Work Phone: Start: 12-30-2024 End: 12-30-2024 ambulatory Jay Easton Facility:[facility] Start: 12-13-2024 End: 12-13-[address] Sukhjinder Pinto MD -[facility] Work Phone: Start: 12-13-2024 End: 12-13-[address] Jay Easton DO Work Phone: -[facility] Start: 12-06-2024 ambulatory Jay Easton Facility:[facility] Start: 11-30-2024 End: 11-30-[address] Jay Easton DO Work Phone: [facility] Work Phone: Start: 11-30-2024 End: 11-30-2024 Patient encounter procedure Dr. Dalton Clarke DO -Laboratory Work Phone: Start: 11-30-2024 End: 11-30-2024 ambulatory Jay Easton Facility:[facility] Start: 11-15-2024 End: 11-15-[address] JAY EASTON DO Facility:[facility] Start: 11-01-2024 End: 11-01-[address] JAY EASTON DO [facility] Start: 11-01-2024 End: 11-01-[address] JAY EASTON DO [facility] Start: 10-19-2024 End: 10-23-[address] JAY EASTON DO Facility[facility] Start: 10-19-2024 End: 10-23-[address] JAY EASTON DO [facility] Start: 09-01-2024 End: 09-01-[address] JAY EASTON DO [facility] Start: 08-17-2024 End: 10-13-[address] Jay Easton DO Work Phone: [facility] Work Phone: Start: 08-17-2024 End: 08-17-[address] Behzad Glez MD -[facility] Work Phone: Start: 08-17-2024 End: 08-17-2024 ambulatory Jay Easton Facility:[facility] Start: 07-12-2024 End: 07-12-[address] Behzad Glez MD -[facility] Work Phone: Start: 07-12-2024 End: 07-12-2024 ambulatory Jay Easton [facility] Start: 07-09-2024 End: 07-09-2024 ambulatory CRYSTAL WALDRON PA-C Facility:[facility] Start: 06-04-2024 End: 06-04-[address] Dalton Clarke DO -Laboratory Work Phone: Start: 06-04-2024 End: 06-04-2024 ambulatory Dalton Clarke Facility:[facility] Start: 06-02-2024 End: 06-02-[address] Akiko Bergeron MD -Laboratory Work Phone: Start: 06-02-2024 End: 06-02-2024 ambulatory Jay Easton Facility:[facility] Start: 05-10-2024 End: 05-10-[address] JAY EASTON DO Facility[facility] [place] Start: 05-10-2024 End: 05-10-[address] JAY EASTON DO [facility] Start: 04-23-2024 End: 04-23-[address] JAY EASTON DO Facility[facility] [place] Start: 04-23-2024 End: 04-23-[address] JAY EASTON DO [facility] Start: 04-15-2024 End: 05-25-[address] JAY EASTON DO Facility:[facility] Start: 04-12-2024 End: 07-08-[address] JAY EASTON DO [facility] Start: 04-02-2024 End: 04-02-[address] JAY EASTON DO [facility] Start: 03-31-2024 End: 03-31-[address] JAY EASTON DO [facility] Start: 02-23-2024 End: 02-23-[address] JAY EASTON DO [facility] Start: 02-18-2024 ambulatory JAY EASTON Facility:[facility] Start: 02-10-2024 End: 02-14-2024 ambulatory JAY EASTON Facility:[facility] Start: 02-10-2024 End: 02-14-[address] JAY EASTON DO [facility] Start: 11-12-2023 End: 11-16-2023 ambulatory JAY EASTON Facility:[facility] Start: 11-12-2023 End: 11-16-[address] JAY EASTON DO [facility] Start: 09-04-2023 End: 09-04-[address] Jay Easton Work Phone: [facility] Work Phone: Start: 09-04-2023 End: 09-04-[address] Jay Easton Work Phone: [facility] Start: 08-19-2023 End: 08-19-[address] Jay Easton Work Phone: [facility] Work Phone: Start: 08-19-2023 End: 08-19-[address] Jay Easton Work Phone: [facility] Work Phone: Start: 08-14-2023 End: 08-14-2023 ambulatory JAY EASTON Facility:[facility] Start: 08-14-2023 End: 08-14-[address] JAY EASTON DO [facility] Start: 08-13-2023 End: 08-13-2023 ambulatory MCKENZIE IRVING RESIDENTIAL SALES REP[employer]IVET C[employer]ER Facility:[facility] Start: 08-13-2023 End: 08-13-2023 Patient encounter procedure MCKENZIE IRVING RESIDENTIAL SALES REP-RIVET CATCHER [facility] Start: 08-06-2023 End: 08-06-2023 ambulatory KASSANDRA SRIDEVI RESIDENTIAL SALES REP-RIVET C[employer]ER Facility:[facility] Start: 08-06-2023 End: 08-06-2023 Patient encounter procedure KASSANDRA SRIDEVI RESIDENTIAL SALES REP-RIVET CATCHER [facility] Start: 08-06-2023 ambulatory KASSANDRA HOSTETLE R RESIDENTIAL SALES REP-RIVET CATCHER Facility:[facility] Start: 08-05-2023 Non-patient / Non-visit Dr. Keke Easton Work Phone: [facility] Start: 08-05-2023 End: 08-05-2023 Admission to same day surgery center Dr. Jay Easton Work Phone: [facility] Work Phone: Start: 08-05-2023 End: 08-05-[address] Jay Easton Work Phone: [facility] Work Phone: Start: 07-10-2023 End: 07-10-2023 ambulatory JAY EASTON Facility:[facility] Start: 07-10-2023 End: 07-10-[address] JAY EASTON DO [facility] Start: 07-10-2023 Non-patient / Non-visit Dr. Keke Easton Work Phone: [facility] Work Phone: Start: 07-03-2023 End: 07-07-2023 ambulatory JAY EASTON Facility:[facility] Start: 07-03-2023 End: 07-07-[address] JAY EASTON DO [facility] Start: 06-28-2023 Non-patient / Non-visit Dr. Keke Easton Work Phone: [facility] Work Phone: Start: 06-27-2023 Non-patient / Non-visit Dr. Keke Easton Work Phone: [facility] Work Phone: Start: 06-27-2023 Non-patient / Non-visit Dr. Keke Easton Work Phone: [facility] Start: 06-26-2023 End: 06-28-2023 Evaluation and management of inpatient [facility] Work Phone: Start: 06-25-2023 End: 06-25-2023 ambulatory JAY EASTON Facility:[facility] Start: 06-25-2023 End: 06-25-[address] JAY EASTON DO [facility] Start: 06-19-2023 End: 06-23-2023 ambulatory JAY EASTON Facility:[facility] Start: 06-19-2023 End: 06-23-[address] JAY EASTON DO [facility] Start: 06-18-2023 End: 06-18-2023 Emergency department patient visit [facility] Work Phone: Start: 06-17-2023 End: 06-21-2023 ambulatory JAY EASTON Facility:[facility] Start: 06-17-2023 End: 06-21-[address] JAY EASTON DO [facility] Start: 06-05-2023 End: 06-05-[address] Jay Easton Work Phone: [facility] Work Phone: Start: 06-05-2023 End: 06-05-[address] Jay Easton Work Phone: [facility] Work Phone: Start: 04-25-2023 End: 04-29-2023 ambulatory JAY EASTON Facility:[facility] Start: 04-04-2023 End: 04-04-[address] Jay Easton Work Phone: [facility] Work Phone: Start: 04-04-2023 End: 04-04-[address] Jay Easton Work Phone: [facility] Work Phone: Start: 02-18-2023 End: 02-18-[address] Jay Easton Work Phone: [facility] Work Phone: Start: 02-11-2023 End: 02-11-[address] Jay Easton Work Phone: [facility] Work Phone: Start: 02-11-2023 End: 02-11-[address] [facility] Work Phone: Start: 01-22-2023 End: 01-22-[address] Jay Easton Work Phone: [facility] Start: 11-12-2022 End: 11-12-[address] Jay Easton Work Phone: [facility], [facility] Start: 11-12-2022 End: 11-12-[address] Jay Easton Work Phone: [facility] Start: 11-07-2022 End: 11-07-[address] Jay Easton Work Phone: [facility] Work Phone: Start: 11-07-2022 End: 11-07-[address] [facility] East[facility] Start: 10-28-[address] Jay Easton Work Phone: [facility] Start: 10-28-2022 End: 10-28-[address] Jay Easton Work Phone: [facility] Start: 10-24-2022 Non-patient / Non-visit Dr. Keke Easton Work Phone: [facility] Start: 08-13-2022 End: 08-13-[address] Jay Easton Work Phone: [facility] Work Phone: Start: 08-13-2022 End: 08-13-[address] Jay Easton Work Phone: [facility] Start: 07-09-2022 End: 07-09-[address] Jay Easton Work Phone: [facility] Work Phone: Start: 07-09-2022 End: 07-09-[address] Jay Easton Work Phone: [facility] Start: 05-06-2022 Non-patient / Non-visit Dr. Keke Easton Work Phone: [facility] Start: 05-06-2022 End: 05-06-[address] Jay Easton Work Phone: [facility]/Neurology Start: 02-25-2022 End: 02-25-[address] HAILEY GUERRERO MD [facility] Start: 02-05-2022 End: 02-05-2022 Patient encounter procedure HARPREET JOHNSON RESIDENTIAL SALES REP-RIVET CATCHER [facility] Start: 01-08-2022 End: 01-08-[address]AY EASTON DO [facility] Start: 08-09-2021 End: 08-13-2021 Outreach Lab GABRIELE VIDAL MD [facility] Start: 06-27-2021 End: 06-27-[address] HAILEY GUERRERO MD [facility] Start: 04-12-2021 End: 04-12-2021 Patient encounter procedure MCKENZIE IRVING RESIDENTIAL SALES REP-[employer]IVET [employer]ER [facility] Start: 04-28-2018 End: 04-28-2018 Patient encounter procedure STEVE QUIÑONES Facility:[facility] Start: 10-21-2008 End: 10-21-2008 Patient encounter procedure Meghan Ramey Work Phone: [facility] Start: 10-21-2008 Results Only Meghan Ramey Work Phone: [facility] Procedures Date Procedure Procedure Detail Performing Clinician Start: 02-15-2025 Prostate specific an tigen measurement Dr. Jay Easton DO Work Phone: Comment on above: This test was perfor med using the [employer] tPSA method. Measured values of a patient sample can vary depending on the testing procedure used. PSA values determined on patient samples by different testing procedures cannot be used interchangeably. If there is a change in PSA assays while monitoring therapy, sequential testing should be performed to confirm baseline values. Start: 01-17-[address] e fraction Dr. Jay Easton DO Work Phone: Start: 01-17-2025 Total iron binding c apacity measurement Dr. Jay Easton DO Work Phone: Start: 12-30-2024 Plain chest X-ray Dr. Jessy Eatson DO Work Phone: Start: 12-30-2024 Plain chest X-ray Dr. Jessy Easton DO Work Phone: Start: 12-30-2024 Biopsy/Inj or Needle Placement Dr. Jay Easton DO Work Phone: Start: 11-30-2024 Vitamin D, 25-hydrox y measurement Dr. Jay Easton DO Work Phone: Comment on above: Vitamin D StatusDefi ciency: <20 ng/mL (50nmol/L)Insufficiency: 20-30 ng/mL (50-75 nmol/L)Sufficiency: 30-100 ng/mL (75-250 nmol/L)Toxicity: >100 ng/mL (>250 nmol/L) Start: 08-17-2024 MRI of abdomen with contrast Dr. Jay Easton DO Work Phone: Start: 12-11-2023 Albumin/Globulin ratio Dr. Jay Easton DO Work Phone: Start: 12-11-[address] Jay Easton DO Work Phone: Start: 12-11-[address] Jay Easton DO Work Phone: Start: 12-11-2023 Measurement of renal function Dr. Jay Easton DO Work Phone: Comment on above: GFR Calc Start: 12-11-2023 Total iron binding c apacity measurement Dr. Jay Easton DO Work Phone: Start: 08-19-2023 MRI of lower extremity Dr. Jay Easton Work Phone: Start: 08-05-[address] Jay leung Work Phone: Start: 06-26-2023 Plain X-ray of toe Start: 06-26-2023 Bacteria identified in Blood by Culture Dr. Jay Easton Work Phone: Start: 04-04-2023 CT of chest without contrast Dr. Jay Easton Work Phone: Start: 02-11-2023 MRI of lumbar spine with contrast Dr. Jay Easton Work Phone: Start: 11-12-2022 Plain chest X-ray Dr. Jessy Easton Work Phone: Start: 11-12-[address] Jay Easton Work Phone: Start: 11-12-2022 X-ray of chest posteroanterior view Dr. Jay Easton Work Phone: Start: 11-07-2022 Radionuclide whole b amira bone study Dr. Jay Easton Work Phone: Start: 02-25-[address] YANIRA EASTON DO Comment on above: Summary: 1. Left ventricle: The cavity size is normal. Wall thickness is increased. Systolic function is normal. The estimated ejection fraction is 60-65%. Wall motion is normal; there are no regional wall motion abnormalities. 2. Ventricular septum: Thickness is increased. The outflow septum has a sigmoid appearance. 3. Aortic valve: There is mild to moderate regurgitation. 4. Mitral valve: Systolic bowing without prolapse. There is moderate regurgitation. 5. Left atrium: The atrium is massively dilated. 6. Right ventricle: The RV systolic pressure by Doppler is 41 mm Hg. 7. Right atrium: The atrium is moderately to severely dilated. Recommendations: MR visually appears moderate. Quantification sugests severe (RV 57 ml; EROA 0.5 cm2). COuld be an overestimate but in setting of massive LA dilation, patient may benefit from further evaluation fo MR with JAMEE if clinically relevant. Start: 04-12-2021 Cardi[address]res s testing DR HAILEY GUERRERO MD Start: 03-21-[address] CANDIS GUERRERO MD Comment on above: EF 60-65% Start: 09-07-2020 Echocardiography PILY IRVING RESIDENTIAL SALES REP[employer]IV[employer] CATCHER Comment on above: EF 65%, moderate-sev ere MR Start: 09-08-2019 Transesophageal echocardiography MCKENZIE MARIA FERNANDA RESIDENTIAL SALES REP-RIVET CATCHER Start: 08-18-2019 Echocardiography PILY IRVING RESIDENTIAL SALES REP-[employer]IVET CATCHER Comment on above: EF 55-60% Start: 10-21-2008 CONVERTED BONE MARROW F vale Ramey Work Phone: Tonsillectomy MCKENZIE Berg PRN-RIVET CATCHER Plan of Treatment Date Care Activity Detail Author Start: 01-17-2025 [facility] Start: 12-30-2024 Biopsy liver needle percutaneous NEEDLE BIOPSY OF LIVER PERQ [facility] Start: 12-30-2024 CORE NDL BX LNG/MED PERQ CORE NDL BX LNG/MED PERQ [facility] Start: 12-30-2024 Following clinical pathway protocol [facility] Start: 12-30-2024 Catheterization of vein [facility] Start: 12-30-2024 Oxygen therapy [facility] Start: 12-30-2024 Patient discharge [facility] Start: 12-30-2024 Vital signs measurements [facility] Start: 08-05-2023 Colsc flx w/rmvl of tumor polyp lesion snare tq COLONOSCOPY W/LESION REMOVAL [facility] Start: 08-05-2023 Patient discharge [facility] Start: 06-28-2023 Patient discharge [facility] Start: 06-26-2023 End: 06-26-2023 Following clinical pathway protocol [facility] Start: 06-26-2023 Assessment of risk of venous thromboembolism [facility] Start: 06-26-2023 Consultation [facility] Start: 06-26-2023 Continuous positive airway pressure ventilation treatment [facility] Start: 06-26-2023 Elevation of affected extremity [facility] Start: 06-26-2023 Fall prevention [facility] Start: 06-26-2023 Inhalation therapy procedure [facility] Start: 06-26-2023 Insertion of catheter into peripheral vein [facility] Start: 06-26-2023 Introduction of urinary catheter [facility] Start: 06-26-2023 Measuring intake and output [facility] Start: 06-26-2023 Notification of physician [facility] Start: 06-26-2023 Oxygen therapy [facility] Start: 06-26-2023 Providing care according to standard [facility] Start: 06-26-2023 Provision of activity privileges [facility] Start: 06-26-2023 Referral to occupational therapist [facility] Start: 06-26-2023 Referral to diagnostic sales specialist [facility] Start: 06-26-2023 Referral to service [facility] Start: 06-26-2023 Wound care [facility] Start: 06-26-2023 [facility] Start: 06-26-2023 Verification routine [facility] Start: 06-26-2023 Hospital admission, emergency, from emergency room, medical nature [facility] Start: 06-26-2023 Admission procedure [facility] Start: 06-26-2023 [facility] Start: 06-26-2023 Bacteria identified in Blood by Culture Blood Culture [facility] Start: 06-26-2023 End: 06-26-2023 Blood culture [facility] Start: 06-26-2023 Patient referral to dietitian [facility] Start: 06-18-2023 [facility] Start: 02-15-2020 Influenza vaccination INFLUENZA (#1) [facility] Start: 2019 ADVANCE DIRECTIVE DISCUSSION ADVANCE DIRECTIVE DISCUSSION [facility] Start: 2019 PNEUMOVAX AGE 65 AND OVER WITH 5YR LOOKBACK (#1) PNEUMOVAX AGE 65 AND OVER WITH 5YR LOOKBACK (#1) [facility] Start: 12-22-2011 DIABETES SCREEN DIABETES SCREEN [facility] Start: 2009 PROSTATE CANCER SCREENING DISCUSSION PROSTATE CANCER SCREENING DISCUSSION [facility] Start: 2004 SHINGRIX VACCINE (1 of 2) SHINGRIX VACCINE (1 of 2) [facility] Start: 2004 Tuberculosis screening COLORECTAL CANCER SCREENING,SEE MODIFIER [facility] Start: 1989 LIPID SCREEN LIPID SCREEN [facility] Start: 1973 Urine microalbumin profile DTAP,TDAP,TD (1 - Tdap) [facility] Acute hepatitis 1999 panel - Serum [facility] CBC W Auto Different ial panel - Blood [facility] CBC W Auto Different ial panel - Blood [facility] Colonoscopy [facility] Comprehensive metabo lic 1999 panel - Serum or Plasma [facility] lic 1999 panel - Serum or Plasma [facility] CT Chest W contrast IV [facility] Hepatitis B virus finn rface IgG Ab [Presence] in Serum [facility] Iron [Mass/mass] in Unspecified specimen [facility] Iron saturation [Mas s Fraction] in Serum or Plasma [facility] Lipid 1996 panel - S major or Plasma [facility] Magnesium measurement [facility] MR Lumbar spine WO a nd W contrast IV [facility] Patient Education [facility] Work Phone: Patient referral [facility] Work Phone: Procedure [facility] Prothrombin time [facility] Prothrombin time [facility] Serum inorganic phos phate measurement [facility] Total iron binding c apacity measurement [facility] Immunizations Immunization Date Immunization Notes Care Provider Fa cility 03-10-2025 influenza, high dose seasonal, preservative-free; Translations: [Fluzone High-Dose PF Prefilled Syringe ] DR HAILEY GUERRERO MD [facility] 03-31-2024 influenza, high dose seasonal, preservative-free; Translations: [Fluad PF Prefilled Syringe ] DR JAY EASTON DO [facility] 04-18-2023 influenza, high dose seasonal, preservative-free; Translations: [Fluad Quadrivalent PF ] DR JAY EASTON DO [facility] 07-03-2022 Pneumococcal conjuga te PCV20, polysaccharide [id number] conjugate, adjuvant, PF; Translations: [Prevnar 20] DR JAY EASTON DO [facility] 03-21-2022 SARSCoV2 mRNA([id number]+)biv al vac; Translations: [[employer]Pub[employer]BioNTech COVID-19 (12y+) Bivalent Booster Vaccine PF] DR JAY EASTON DO [facility] 03-21-2022 influenza, high dose seasonal, preservative-free DR JAY EASTON DO [facility] 05-08-2021 influenza, high dose seasonal, preservative-free; Translations: [Fluad Quadrivalent PF ] DR HAILEY GUERRERO MD [facility] 12-07-2020 SARS-CoV-2 (COVID-19 ) mRNA-1273 vaccine GABRIELE VIDAL MD [facility] Comment on above: Result Comment: 2021: [id number] 11-09-2020 SARS-CoV-2 (COVID-19 ) mRNA-1273 vaccine GABRIELE VIDAL MD [facility] Comment on above: Result Comment: 2021: [id number] 03-10-2020 influenza virus vacc ine, unspecified formulation GABRIELE VIDAL MD [facility] 03-02-2019 influenza virus vacc ine, unspecified formulation GABRIELE VIDAL MD [facility] 03-09-2018 influenza virus vacc ine, unspecified formulation GABRIELE VIDAL MD [facility] 11-16-2017 tetanus toxoid, redu marci diphtheria toxoid, and acellular pertussis vaccine, adsorbed GABRIELE VIDAL MD [facility] 03-25-2017 influenza virus vacc ine, unspecified formulation GABRIELE VIDAL MD [facility] 04-16-2016 influenza virus vacc ine, unspecified formulation GABRIELE VIDAL MD [facility] 03-17-2015 influenza virus vacc ine, unspecified formulation GABRIELE VIDAL MD [facility] 10-19-2013 zoster vaccine, live DR JAY EASTON DO [facility] 11-17-2008 pneumococcal polysaccharide vaccine, [address] JAY EASTON DO [facility] Payers Date Payer Category Payer Private Health Insurance [id number] 2023 Medicare [id number] 2022 Self-pay [id number] 2022 Unknown [id number] 1954 Unknown [id number] 2.16.8 40.1.778417.3.579.2.278 1954 Unknown [id number] 2.16.8 40.1.125797.3.579.2.627 1954 Unknown [id number] 2.16.8 40.1.194735.3.579.2.627 1954 Unknown [id number] 2.16.8 40.1.229336.3.579.2.627 1954 Unknown [id number] 2.16.8 40.1.510631.3.579.2.627 1954 Unknown [id number] 2.16.8 40.1.450142.3.579.2.627 1954 Unknown [id number] 2.16.8 40.1.184656.3.579.2.627 1954 Unknown [id number] 2.16.8 40.1.799804.3.579.2.627 1954 Unknown [id number] 2.16.8 40.1.799146.3.579.2.627 1954 Unknown [id number] 2.16.8 40.1.154443.3.579.2.627 1954 Unknown [id number] 2.16.8 40.1.974595.3.579.2.627 1954 Unknown [id number] 2.16.8 40.1.495020.3.579.2.7 1954 Unknown [id number] 2.16.8 40.1.313914.3.579.2. 1954 Unknown [id number] 2.16.8 40.1.420243.3.579.2. 1954 Unknown [id number] 2.16.8 40.1.734701.3.579.2. 1954 Unknown [id number] 2.16. 840.1.717833.3.579.2. 1954 Unknown [id number] 2.16. 840.1.289630.3.579.2. 1954 Unknown [id number] 2.16. 840.1.819879.3.579.2. 1954 Unknown [id number] 2.16. 840.1.149636.3.579.2. 1954 Unknown [id number] 2.16. 840.1.292480.3.579.2. 1954 Unknown [id number] 2.16.8 40.1.423595.3.579.2. 1954 Unknown [id number] 2.16.8 40.1.036747.3.579.2. 1954 Unknown [id number] 2.16.8 40.1.424598.3.579.2. 1954 Unknown [id number] 2.16.8 40.1.277609.3.579.2. 1954 Unknown [id number] 2.16.8 40.1.155066.3.579.2. 1954 Unknown [id number] 2.16.8 40.1.209179.3.579.2. 1954 Unknown [id number] 2.16.8 40.1.398084.3.579.2.627 Unknown [id number] Unknown [id number] Unknown [id number] 2.16.8 40.1.663069.3.579.2.462 Unknown [id number] 2.16.8 40.1.092957.3.579.2.462 Unknown [id number] 2.16.8 40.1.193892.3.579.2.462 Unknown [id number] 2.16.8 40.1.429818.3.579.2.462 Unknown [id number] 2.16.8 40.1.200878.3.579.2.462 Unknown [id number] 2.16.8 40.1.906777.3.579.2.462 Unknown [id number] 2.16.8 40.1.875866.3.579.2.462 Unknown [id number] 2.16.8 40.1.575984.3.579.2.462 Unknown [id number] 2.16.8 40.1.315994.3.579.2.462 Unknown [id number] 2.16.8 40.1.000727.3.579.2.462 Unknown [id number] 2.16.8 40.1.678215.3.579.2.462 Unknown [id number] 2.16.8 40.1.626680.3.579.2.462 Unknown [id number] 2.16.8 40.1.487644.3.579.2.462 Unknown [id number] 2.16.8 40.1.214545.3.579.2.462 Social History Date Type Detail Facility Start: 10-20-2008 End: 04-07-2025 Tobacco smoking status [facility] Never smoker [facility] Start: 10-20-2008 Alcohol intake Not Asked Billy Freeman Sex Assigned At Not on file [facility] Start: 1955 Sex Assigned At Male A [facility] Start: 11-27-2018 End: 07-30-2023 Tobacco smoking status NHIS Unknown if ever smoked [facility] Start: 11-27-2018 None [facility] Start: 04-16-2019 Non-smoker [facility] Start: 11-16-2017 Alone [facility] Sexual O[facility] Start: 05-11-2019 End: 08-30-2024 Sex Male (finding) [facility] Sex Male [facility] Medical Equipment Procedure Code Equipment Code Equipment Origin al Text Equipment Identifier Dates TUBE, EAR COLLAR REI FDA Start: 05-21-2018 TUBE, EAR PARASOL.[email or web address] FDA Start: 05-21-2018 TUBE, EAR COLLAR REI FDA Start: 05-21-2018 TUBE, EAR PARASOL.[email or web address] FDA Start: 05-21-2018 TUBE, EAR COLLAR REI FDA Start: 05-21-2018 TUBE, EAR PARASOL.[email or web address] FDA Start: 05-21-2018 TUBE, EAR COLLAR REI FDA Start: 05-21-2018 TUBE, EAR PARASOL.[email or web address] FDA Start: 05-21-2018 TUBE, EAR COLLAR REI FDA Start: 05-21-2018 TUBE, EAR PARASOL.[email or web address] FDA Start: 05-21-2018 TUBE, EAR COLLAR REI FDA Start: 05-21-2018 TUBE, EAR PARASOL.[email or web address] FDA Start: 05-21-2018 TUBE, EAR COLLAR REI FDA Start: 05-21-2018 TUBE, EAR [email or web address] FDA Start: 05-21-2018 TUBE, EAR COLLAR REI FDA Start: 05-21-2018 TUBE, EAR [email or web address] FDA Start: 05-21-2018 TUBE, EAR COLLAR REI FDA Start: 05-21-2018 TUBE, EAR [email or web address] FDA Start: 05-21-2018 TUBE, EAR COLLAR REI FDA Start: 05-21-2018 TUBE, EAR PARASOL.[email or web address] FDA Start: 05-21-2018 TUBE, EAR COLLAR REI FDA Start: 05-21-2018 TUBE, EAR [email or web address] FDA Start: 05-21-2018 TUBE, EAR COLLAR REI FDA Start: 05-21-2018 TUBE, EAR [email or web address] FDA Start: 05-21-2018 TUBE, EAR COLLAR REI FDA Start: 05-21-2018 TUBE, EAR [email or web address] FDA Start: 05-21-2018 TUBE, EAR COLLAR REI FDA Start: 05-21-2018 TUBE, EAR [email or web address] FDA Start: 05-21-2018 TUBE, EAR COLLAR REI FDA Start: 05-21-2018 TUBE, EAR [email or web address] FDA Start: 05-21-2018 TUBE, EAR COLLAR REI FDA Start: 05-21-2018 TUBE, EAR [email or web address] FDA Start: 05-21-2018 TUBE, EAR COLLAR REI FDA Start: 05-21-2018 TUBE, EAR [email or web address] FDA Start: 05-21-2018 TUBE, EAR COLLAR REI FDA Start: 05-21-2018 TUBE, EAR [email or web address] FDA Start: 05-21-2018 Goals Date Patient Goal Desired Activity /State Functional Status Date Assessment Result Facility 12-30-2024 Functional status Activity Abili ty Standby Assist [facility] Work Phone: 04-12-2024 Functional Status Objective: Observation: Flexed trunk posture mod/severse Cardiovascular screen: BP:100/60, O2 at: 99% HR: 83 bpm Sensation: Grossly intact and symmetrical light touch. Reflexes: Quads R: 1+ L: 1+ Achilles R: 1+ L: 1+ Gait: flexed posture extreme leans heavily on walker. Requires wheelchair for in clinic ambulation. Flexibility: Hips grossly limited in ROM most notably flexion, ER and IR 5m walk test: 46 sec 0.11 m/sec Car transfers: requires min assist for leg placement into his vehicle and wheelchair to follow to allow him to get close to his car. Special Tests: Slump: - [facility] 06-28-2023 Functional status Ambulates [facility] Work Phone: Mental Status Date Assessment Result Facility 12-30-2024 Cognitive function Voice/Name [facility] Work Phone: 08-05-2023 Cognitive function Level Of Consciousness Drowsy [facility] Work Phone: 06-28-2023 Cognitive function Voice/Name [facility] Work Phone: Clinical Notes 03-17-2020 to 03-28-2025 Note Date & Type Note Facility 03-28-2025 Note Exam Date Time Procedure Performing Provider Status 03/28/25 3:29 PM Echocardiogram, Adult - CV RODNEY BLUM MD; Auth (Verified) [facility]08-04-2025 Progress [facility] [address] [place] [address] OFFICE VISIT Date of Service: 01/17/25 1141 MR#: [id number] Acct: [id number] Name: RAMÓN THOMAS Rep #: [id number] : 1955 From: Sukhjinder sandoval MD Age/Sex: 69/M Location[place] [facility] Status: Signed HPI Subjective Date of Service 01/17/25 Chief Complaint Right lung lesion and anemia History of Present Illness 69-year-old male with multiple chronic medical problems including chronic back pain with sciatica, history of osteomyelitis of the left big toe treated with several months of antibiotics in early 2023, history of folic acid and B12 deficiencies, chronic atrial fibrillation, COPD, history of cardiacfailure, history of hyperparathyroidism, history of nephrolithiasis, dyslipidemia, hypotension, hypothyroidism, obesity, valvular heart disease, obstructive sleep apnea, degenerative joint disease. There is also a history of an abnormal MRI appearance of L1 that was followed upwith serial MRI imaging concluded to be a benign stable lesion most likely hemangioma. Patient referred in consultation in November 2023 for a normocytic anemia that did not respond to supplementation with folic acid and B12. The patient reports occasional minor rectal bleeding attributed to hemorrhoids when constipated, hehad a screening colonoscopy in July 2023 showing diverticular disease, a benign polyp was removed. He was referred back in consultation November 2024 for the incidental finding of right lower lobe pleural-based lung mass when he had an MRI of the abdomen and the mass was visualized prompting a fourth CT of the chest. The patient is a never smoker. November 15, 2024 CT chest ([facility]): Soft tissue and attenuation mass in the right lower thorax appears to be pleural-based. No thoracic lymphadenopathy. December 30, 2024 liver/Lung, right, mass, CT-guided core biopsy: - Two cores of fibrous tissue with mild acute inflammation, abundant old blood pigment, and hemorrhagic necrosis. - Multiple cores of blood clot. - No evidence of neoplasia is seen in these sections (deeper sections examined). [facility] Medical History (Updated 01/17/25 @ 12:[address] Sukhjinder Pinto MD) Thrombocytopenia Wears glasses MRSA infection Cancer Thyroid disease Walker as ambulation aid Arthritis Low iron Anemia High cholesterol Chronic cough Non-smoker History of stress test History of atrial fibrillation Cardiology follow-up encounter History of edema Hx of colonic polyps Chronic pain of toe of left foot Chronic pain BiPAP (biphasic positive airway pressure) dependence Sleep apnea Asthma Atrial fibrillation Chronic anemia CKD (chronic kidney disease), stage II Bone lesion Lumbar radiculopathy Restrictive lung disease Permanent atrial fibrillation Peripheral neuropathy Observed sleep apnea Nonrheumatic mitral valve regurgitation Lumbar facet arthropathy Lumbar degenerative disc disease Idiopathic hypertrophic subaortic stenosis Hypothyroidism Hyperlipidemia Nephrolithiasis Hyperparathyroidism Arthritis of left hip (HFpEF) heart failure with preserved ejection fraction COPD (chronic obstructive pulmonary disease) Lesion of lumbar spine Surgical History History of cardiac catheterization Hx of colonoscopy History of lung surgery History of surgery on lower extremity Hx of tonsillectomy History of transesophageal echocardiography (JAMEE) Hx of cardiovascular stress test Hx of echocardiogram Family History Father Myocardial infarction CAD (coronary artery disease) Heart disease Hypertension Mother Hypertension Diabetes Social History household members: none current occupational status: retired Smoking Status: Never smoker alcohol intake: never substance use type: does not use caffeine: Yes Type: carbonated beverages ROS ROS Narrative Seizure 138 2024 Intake Vital Signs 07/12/24 13:44 12/13/24 14:49 01/17/25 11:41 Height 5 ft 8 in 5 ft 8 in 5 ft 8 in Weight: 86.636 kg BMI 29.0 BP 110/75 Blood Pressure Location Rt brachial Position Sitting Respiration 14 Pulse 80 Pulse Source Monitor Temp 97.6 F L Temperature Source Temporal Artery Pulse Oximetry (%) 97 Oxygen Delivery Method room air Intake Orchid Superintendent Required: No Accompanied by: Sister Is patient in pain?: No Allergies Tetracyclines Allergy (Verified 01/17/25 11:44) Swelling Medications ?Medication ?Instructions ?Recorded ?Confirmed ?Type spironolactone 25 mg tablet 25 mg PO BID diuretic 10/14 014 01/17/25 History albuterol sulfate 90 mcg/actuation 2 puff inhalation Q 4H PRN 10/24/22 01/17/25 History aerosol inhaler shortness of breath or wheez ing calcitriol 0.25 mcg capsule 0.25 mcg PO DAILY 10/24/22 01/17/25 History calcium gluconate 60 mg calcium 60 mg PO DAILY 3 01/17/25 History (650 mg) tablet magnesium oxide 400 mg (241.3 mg 400 mg PO DAILY 10/2401/17/25 History magnesium) tablet potassium chloride 10 mEq 20 meq PO DAILY 10/24/2210/08 History tablet,extended release rivaroxaban 20 mg tablet (Xarelto) 20 mg PO DAILY 10/1401/17/25 History ibandronate 150 mg tablet 150 mg PO QMONTH 11/12/22 History trazodone 100 mg tablet 100 mg PO QHS 06/26/2301/17 History fluticasone fur. 200 mcg-umeclid 1 inh inhalation ROSAS Y 07/10/23 01/17/25 History 62.5 mcg-vilant 25 mcg inhalat.powder (Trelegy Ellipta) acetaminophen 500 mg capsule 1,000 mg PO Q6H PRN pain 11/20/23 01/17/25 History diclofenac sodium 1 % topical gel 2 g topical ONCE 12/0701/17/25 History (Arthritis Pain (diclofenac)) hydrocodone-acetaminophen 5-325mg 1 tab PO QHS PRN kandi n 11/20/23 01/17/25 History 5mg-325mg levothyroxine 125 mcg tablet 112 mcg PO DAILY thyroid 12/11/23 01/17/25 History torsemide 20 mg tablet 20 mg PO DAILY 12/11/2310/08 History empagliflozin 10 mg tablet 10 mg PO QAM 12/13/2401/17 History (Jardiance) ferrous sulfate 325 mg (65 mg 325 mg PO 12/30/2401/17 History iron) tablet (FeroSul) metoprolol tartrate 50 mg tablet 50 mg PO BID 12/30/24 01/17/25 History tumeric 12/30/24 01/17/25 History Have you fallen in the past year?: No Central Venous Access Central Venous Access: No Laboratory Tests 01/22/23 06/26/23 06/27/23 12:41 14:00 04:05 Hgb 12.5 L 12.2 L 10.3 L Plt Count Iron Saturation Ferritin 06/28/23 09/04/23 12/11/23 04:42 10:40 14:40 Hgb 11.0 L 12.3 L 12.3 L Plt Count 164 Iron Saturation 16.2 Ferritin 26 12/30/24 01/17/25 08:51 10:47 Hgb 12.4 L 13.4 Plt Count 136 L 108 L Iron Saturation Ferritin Exam Physical Exam Narrative ECOG 2, seen in a wheelchair Const alert, oriented x3 and no apparent distress General Appearance: cooperative and comfortable Coding Level of Care Code Off vis,est,level 3 Exam Problem Focused Diagnoses Right lower lobe lung mass R91.8 Anemia in chronic illness D63.8 Thrombocytopenia D69.6 Assessment and Plan Assessment and Plan (1) Right lower lobe lung mass: Status: Acute (2) Anemia in chronic illness: Status: Chronic (3) Thrombocytopenia: Status: Chronic Plan 69-year-old male seen on consultation for anemia in November 2023 and the incidentalfinding of a right lower lobe lung/pleural-based mass on MRI then chest CT November 2024. A CT-guided biopsy showed no evidence of malignancy but rather reported acute inflammation, fibrosis, old blood pigment and hemorrhagic necrosis. The patient has multiple chronic medical problems on a long list of medicationswith a chronic mild normocytic anemia with a baseline hemoglobin around 12 g perDL most likely anemia of chronic diseaseand polypharmacy. He was started on anoral supplement of B12 and folic acid in 2022 with no notable improvement in hisanemia. His levels of B12 show no residual deficiency. He had worsening of his anemia at the beginning of 2023 when he was diagnosed and treated for osteomyelitis of the left big toe. This anemia has resolved since. Has a mild thrombocytopenia no further workup indicated. Chronic comorbid conditions:chronic back pain with sciatica, history of osteomyelitis of the left big toe treated with several months of antibiotics in early 2023, history of folic acid and B12 deficiencies, chronic atrial fibrillation, COPD, history of cardiac failure, history of hyperparathyroidism, history of nephrolithiasis, dyslipidemia, hypotension, hypothyroidism, obesity, valvular heart disease, obstructive sleep apnea, degenerative joint disease. Plan: 1-watchful for the right lower lobe lung lesion with serial CT over the course of 2 years and rebiopsy if there is progressive changes. 2.Anemia, improved with treatment of chronic infections and inflammation. No further recommendations. Patient was seen with family. Sukhjinder Pinto MD Public Works Inspector, [facility] Divisions of Medical Oncology & Hematology Department of Internal Medicine [place] [id number] This note was generated using a voice recognition system software. Although itwas reviewed by the author prior to finalization, it may still contain incorrectwords, spelling, and punctuation that were not noted when reviewing prior to saving. If a clinically significant typo or inaccurately typed phrase is noted, please notify the author. Clinical Quality Measures Falls Risk Screening/Assistive Devices Have you fallen in the past year?: No 01/17/25 1203 sanchez [email or web address]> Date _ Sukhjinder Pinto MD Cosigner Signature: Date (if applicable) CC: ~ [facility]08-04-2025 Progress note Author Sukhjinder Pinto [facility] Note Date/Time January 17, 2025 12: 03pm [place] [address] OFFICE VISIT Date of Service: 01/17/25 1141 MR#: [id number] Acct: [id number] Name: RAMÓN THOMAS Sandi Rep #: [id number] : 1955 From: Sukhjinder sandoval MD Age/Sex: 69/M Location[place] [facility] [place] Status: Signed HPI Subjective Date of Service 01/17/25 Chief Complaint Right lung lesion and anemia History of Present Illness 69-year-old male with multiple chronic medical problems including chronic back pain with sciatica, history of osteomyelitis of the left big toe treated with several months of antibiotics in early 2023, history of folic acid and B12 deficiencies, chronic atrial fibrillation, COPD, history of cardiac failure, history of hyperparathyroidism, history of nephrolithiasis, dyslipidemia, hypotension, hypothyroidism, obesity, valvular heart disease, obstructive sleep apnea, degenerative joint disease. There is also a history of an abnormal MRI appearance of L1 that was followed upwith serial MRI imaging concluded to be a benign stable lesion most likely hemangioma. Patient referred in consultation in November 2023 for a normocytic anemia that did not respond to supplementation with folic acid and B12. The patient reports occasional minor rectal bleeding attributed to hemorrhoids when constipated, he had a screening colonoscopy in July 2023 showing diverticular disease, a benign polyp was removed. He was referred back in consultation November 2024 for the incidental finding of right lower lobe pleural-based lung mass when he had an MRI of the abdomen and the mass was visualized prompting a fourth CT of the chest. The patient is a never smoker. November 15, 2024 CT chest ([facility]): Soft tissue and attenuation mass in the right lower thorax appears to be pleural-based. No thoracic lymphadenopathy. December 30, 2024 liver/Lung, right, mass, CT-guided core biopsy: - Two cores of fibrous tissue with mild acute inflammation, abundant old blood pigment, and hemorrhagic necrosis. - Multiple cores of blood clot. - No evidence of neoplasia is seen in these sections (deeper sections examined). [facility] Medical History (Updated 01/17/25 @ 12:[address] Sukhjinder Pinto MD) Thrombocytopenia Wears glasses MRSA infection Cancer Thyroid disease Walker as ambulation aid Arthritis Low iron Anemia High cholesterol Chronic cough Non-smoker History of stress test History of atrial fibrillation Cardiology follow-up encounter History of edema Hx of colonic polyps Chronic pain of toe of left foot Chronic pain BiPAP (biphasic positive airway pressure) dependence Sleep apnea Asthma Atrial fibrillation Chronic anemia CKD (chronic kidney disease), stage II Bone lesion Lumbar radiculopathy Restrictive lung disease Permanent atrial fibrillation Peripheral neuropathy Observed sleep apnea Nonrheumatic mitral valve regurgitation Lumbar facet arthropathy Lumbar degenerative disc disease Idiopathic hypertrophic subaortic stenosis Hypothyroidism Hyperlipidemia Nephrolithiasis Hyperparathyroidism Arthritis of left hip (HFpEF) heart failure with preserved ejection fraction COPD (chronic obstructive pulmonary disease) Lesion of lumbar spine Surgical History History of cardiac catheterization Hx of colonoscopy History of lung surgery History of surgery on lower extremity Hx of tonsillectomy History of transesophageal echocardiography (JAMEE) Hx of cardiovascular stress test Hx of echocardiogram Family History Father Myocardial infarction CAD (coronary artery disease) Heart disease Hypertension Mother Hypertension Diabetes Social History household members: none current occupational status: retired Smoking Status: Never smoker alcohol intake: never substance use type: does not use caffeine: Yes Type: carbonated beverages ROS ROS Narrative Seizure 138 2024 Intake Vital Signs 07/12/24 13:44 12/13/24 14:49 01/17/25 11:41 Height 5 ft 8 in 5 ft 8 in 5 ft 8 in Weight: 86.636 kg BMI 29.0 BP 110/75 Blood Pressure Location Rt brachial Position Sitting Respiration 14 Pulse 80 Pulse Source Monitor Temp 97.6 F L Temperature Source Temporal Artery Pulse Oximetry (%) 97 Oxygen Delivery Method room air Intake Orchid Superintendent Required: No Accompanied by: Sister Is patient in pain?: No Allergies Tetracyclines Allergy (Verified 01/17/25 11:44) Swelling Medications ?Medication ?Instructions ?Recorded ?Confirmed ?Type spironolactone 25 mg tablet 25 mg PO BID diuretic 10/14 001/17/25 History albuterol sulfate 90 mcg/actuation 2 puff inhalation Q 4H PRN 10/24/22 01/17/25 History aerosol inhaler shortness of breath or wheez ing calcitriol 0.25 mcg capsule 0.25 mcg PO DAILY 10/24/22 01/17/25 History calcium gluconate 60 mg calcium 60 mg PO DAILY 3 01/17/25 History (650 mg) tablet magnesium oxide 400 mg (241.3 mg 400 mg PO DAILY 10/2401/17/25 History magnesium) tablet potassium chloride 10 mEq 20 meq PO DAILY 10/24/2210/08 History tablet,extended release rivaroxaban 20 mg tablet (Xarelto) 20 mg PO DAILY 10/1401/17/25 History ibandronate 150 mg tablet 150 mg PO QMONTH 11/12/22 History trazodone 100 mg tablet 100 mg PO QHS 06/26/2301/17 History fluticasone fur. 200 mcg-umeclid 1 inh inhalation ROSAS Y 07/10/23 01/17/25 History 62.5 mcg-vilant 25 mcg inhalat.powder (Trelegy Ellipta) acetaminophen 500 mg capsule 1,000 mg PO Q6H PRN pain 11/20/23 01/17/25 History diclofenac sodium 1 % topical gel 2 g topical ONCE 12/0701/17/25 History (Arthritis Pain (diclofenac)) hydrocodone-acetaminophen 5-325mg 1 tab PO QHS PRN kandi n 11/20/23 01/17/25 History 5mg-325mg levothyroxine 125 mcg tablet 112 mcg PO DAILY thyroid 12/11/23 01/17/25 History torsemide 20 mg tablet 20 mg PO DAILY 12/11/2310/08 History empagliflozin 10 mg tablet 10 mg PO QAM 12/13/2401/17 History (Jardiance) ferrous sulfate 325 mg (65 mg 325 mg PO 12/30/2401/17 History iron) tablet (FeroSul) metoprolol tartrate 50 mg tablet 50 mg PO BID 12/30/24 01/17/25 History tumeric 12/30/24 01/17/25 History Have you fallen in the past year?: No Central Venous Access Central Venous Access: No Laboratory Tests 01/22/23 06/26/23 06/27/23 12:41 14:00 04:05 Hgb 12.5 L 12.2 L 10.3 L Plt Count Iron Saturation Ferritin 06/28/23 09/04/23 12/11/23 04:42 10:40 14:40 Hgb 11.0 L 12.3 L 12.3 L Plt Count 164 Iron Saturation 16.2 Ferritin 26 12/30/24 01/17/25 08:51 10:47 Hgb 12.4 L 13.4 Plt Count 136 L 108 L Iron Saturation Ferritin Exam Physical Exam Narrative ECOG 2, seen in a wheelchair Const alert, oriented x3 and no apparent distress General Appearance: cooperative and comfortable Coding Level of Care Code Off vis,est,level 3 Exam Problem Focused Diagnoses Right lower lobe lung mass R91.8 Anemia in chronic illness D63.8 Thrombocytopenia D69.6 Assessment and Plan Assessment and Plan (1) Right lower lobe lung mass: Status: Acute (2) Anemia in chronic illness: Status: Chronic (3) Thrombocytopenia: Status: Chronic Plan 69-year-old male seen on consultation for anemia in November 2023 and the incidentalfinding of a right lower lobe lung/pleural-based mass on MRI then chest CT November [address]24. A CT-guided biopsy showed no evidence of malignancy but rather reported acute inflammation, fibrosis, old blood pigment and hemorrhagic necrosis. The patient has multiple chronic medical problems on a long list of medicationswith a chronic mild normocytic anemia with a baseline hemoglobin around 12 g perDL most likely anemia of chronic disease and polypharmacy. He was started on anoral supplement of B12 and folic acid in 2022 with no notable improvement in hisanemia. His levels of B12 show no residual deficiency. He had worsening of his anemia at the beginning of 2023 when he was diagnosed and treated for osteomyelitis of the left big toe. This anemia has resolved since. Has a mild thrombocytopenia no further workup indicated. Chronic comorbid conditions:chronic back pain with sciatica, history of osteomyelitis of the left big toe treated with several months of antibiotics in early 2023, history of folic acid and B12 deficiencies, chronic atrial fibrillation, COPD, history of cardiac failure, history of hyperparathyroidism, history of nephrolithiasis, dyslipidemia, hypotension, hypothyroidism, obesity, valvular heart disease, obstructive sleep apnea, degenerative joint disease. Plan: 1-watchful for the right lower lobe lung lesion with serial CT over the course of 2 years and rebiopsy if there is progressive changes. 2.Anemia, improved with treatment of chronic infections and inflammation. No further recommendations. Patient was seen with family. Sukhjinder Pinto MD Public Works Inspector, [facility] Divisions of Medical Oncology & Hematology Department of Internal Medicine [facility] [place] [phone] This note was generated using a voice recognition system software. Although itwas reviewed by the author prior to finalization, it may still contain incorrectwords, spelling, and punctuation that were not noted when reviewing prior to saving. If a clinically significant typo or inaccurately typed phrase is noted, please notify the author. Clinical Quality Measures Falls Risk Screening/Assistive Devices Have you fallen in the past year?: No 01/17/25 1203 <Electronically signed by Sukhjinder bradford MD> Date _ Sukhjinder Pinto MD Cosigner Signature: Date (if applicable) CC: ~ [facility] Work Phone: [phone] Radiology Diagnostic study note [facility] Imaging Services [address] [place] [address] Chest Insp/Exp 2 View MR#: [id number] Acct: [id number] Name: RAMÓN THOMAS Rep #: [id number] : 1955 M 69 From: Jayjay Wing MD PCP: Dr. Jay Easton DO Status: REG CLI Study:Chest Insp/Exp 2 View Date of Exam: 12/30/24 Exam# [id number] Ordering Dr: Jose Alberto Landeros i, MD EXAM: AP inspiration expiration views. CLINICAL HISTORY: Status post right lung biopsy. COMPARISON: Prior study done earlier in the day. TECHNIQUE: AP inspiration expiration views were obtained 2 hours following the right lung biopsy. FINDINGS: No evidence of pneumothorax. The patient is asymptomatic. RAD/Chest Insp/Exp 2 View IMPRESSION: No evidence of pneumothorax on the 2 hour post right lung biopsy radiographs. Reading Location: [place] [address] CC: Dr. Jose Alberto Wing MD; Dr. Jay Easton DO ~ Rn Physician Office: Signed [facility]07-17-2025 Radiology Diagnostic study note [facility] Imaging Services [address] [place] [address] Biopsy/Inj or Needle Placement MR#: [id number] Acct: [id number] Name: RAMÓN THOMAS Rep #: [id number] : 1955 M 69 From: Jayjay Wing MD PCP: Dr. Jay Easton DO Status: REG CLI Study:Biopsy/Inj or Needle Placement Date of Exam: 12/30/24 Exam# [id number] Ordering Dr: Sukhjinder Pinto MD EXAM: CT-guided biopsy of a right lower lobe nodule adjacent to the right lobe of the liver. CLINICAL HISTORY: Nodular density in the right lower lobe adjacent to the dome of the right lobe of the liver. COMPARISON: Prior CT scan dated November 15, 2024. TECHNIQUE: The patient was in the slightly right anterior oblique position. The procedure as well as the benefits and possible complications including infection, bleeding and pneumothorax were explained to the patient and the patient's . Informed consent was obtained. Conscious sedation was performed. 2 mg of Versed and 50 mcg of fentanyl intravenously. Conscious sedation was started at 10:24 a.m. and terminated at 10:50 a.m.. The patient was independently monitored by the department nurse. The overlying skin was prepped and draped in the usual sterile fashion. Following local anesthetic application, a 20 gauge biopsy needle was placed into the nodule. 6 core biopsies were obtained. The pathologist deemed thespecimen adequate. Dose report: CTDI L volume: 19.5 mGy. DLP: 458.94. FINDINGS: Successful CT-guided core biopsies of the right lower lobe nodule adjacent to the right lobe of theliver. The patient tolerated the procedure well. CT/Biopsy/Inj or Needle Placement IMPRESSION: Successful CT-guided core biopsies of the right lower lobe pulmonary nodule adjacent of the right lobe of the liver. The patient tolerated the procedure well. No immediate complication is noted. Reading Location: [place] [address] CC: Dr. Jay Easton DO; Dr. Sukhjinder Pinto MD ~ Rn Physician Office: Signed [facility]07-17-2025 Radiology Diagnostic study note [facility] Imaging Services [address] [place] [address] Chest Insp/Exp 2 View MR#: [id number] Acct: [id number] Name: RAMÓN THOMAS Rep #: [id number] : 1955 M 69 From: Jayjay Wing MD PCP: Dr. Jay Easton DO Status: REG CLI Study:Chest Insp/Exp 2 View Date of Exam: 12/30/24 Exam# [id number] Ordering Dr: Jose Alberto Landeros i, MD EXAM: AP inspiration expiration views. CLINICAL HISTORY: Status post biopsy of a right lower lobe lesion. COMPARISON: Prior study dated November 15, 2024. TECHNIQUE: AP inspiration expiration views were obtained. FINDINGS: No evidence of pneumothorax on the immediate post right lung biopsy radiographs. RAD/Chest Insp/Exp 2 View IMPRESSION: No pneumothorax on the immediate post right lung biopsy radiographs. The patient is asymptomatic. Reading Location: [facility]--1 CC: Dr. Jose Alberto Wing MD; Dr. Jay Easton DO ~ Rn Physician Office: Signed [facility]06-30-2025 Evaluation note* Diagnosis Onset Date Resolution Status Admit Date Right lower lobe lung mass acute December 13, 2024 2:20pm Anemia in chronic illness chronic December 13, 2024 2:20pm [facility] Work Phone: 1(596) 829-539606-30-2025 Evaluation note* Diagnosis Onset Date Resolution Status Admit Date Right lower lobe lung mass acute December 13, 2024 2:20pm Anemia in chronic illness chronic December 13, 2024 2:20pm Right lower lobe lung mass acute January 17, 2025 10:42am Anemia in chronic illness chronic January 17, 2025 10:42am Thrombocytopenia chronic January 172024 10:42am [facility] Work Phone: 1([phone]) 840-876806-30-2025 Evaluation note* Diagnosis Onset Date Resolution Status Admit Date Right lower lobe lung mass acute December 13, 2024 2:20pm Anemia in chronic illness chronic December 13, 2024 2:20pm Right lower lobe lung mass acute January 17, 2025 10:42am Anemia in chronic illness chronic January 17, 2025 10:42am Thrombocytopenia chronic January 172024 10:42am Cirrhosis acute January 18 10:38am Hemangioma of liver chronic Augus t 2024 10:38am [facility] Work Phone: 1(355) 390-308205-19-2025 Note* Exam Date Time Procedure Performing Provider Status 11/01/24 11:30 AM MRI Liver SHAWNERICK Lazaro MD; Auth (Verified) [id number] ORIGINAL EXAMINATION: MRI OF THE ABDOMEN LIMITED WITH CONTRAST, 11/01/2024 11:32 am TECHNIQUE: Multiplanar multisequence MRI of the abdomen limited was performed with the administration of intravenous contrast. COMPARISON: 05/10/2024 HISTORY: ORDERING SYSTEM PROVIDED HISTORY: Reason for Exam: liver mass ?hemangioma, rule out malignancy, fatty liver FINDINGS: The liver demonstrates prominent dropout of signal on chemical shift imaging compatible with hepatic steatosis. There is mild nodularity of the hepatic capsule suggesting cirrhosis. The spleen is normal in size. A few scattered hepatic lesions within the posterior right hepatic lobe appears stable demonstrating peripheral nodular enhancement with incomplete fill-in and are favored to represent hemangiomas. Stable anterior left hepatic lobe serpiginous enhancing abnormality with connection to the medial ranch of the left portal vein and middle hepatic vein. There may be an additional similar lesion seen at the inferior aspect of the right hepatic lobe (10:48), similar to prior. Subcentimeter scattered cysts are also noted. No new suspicious hepatic lesion is identified. The portal vein, splenic vein, and SMV appears patent. Stable right 0.9 cm adrenal adenoma. Bilateral renal cysts including a few hemorrhagic/proteinaceous cyst appears similar to prior. Additional stable left 3.2 cm left renal cyst with layering hypointensity similar to prior. Elevation of left hemidiaphragm. Cardiomegaly noted. Small right pleural effusion. There is a new diffusion restricting heterogeneous T2 hyperintense 5.3 cm right lower lobe masslike intensity (1:17). No additional contributory abnormality. IMPRESSION: Cirrhotic liver with mild underlying hepatic steatosis. Stable benign-appearing hepatic lesions including left hepatic lobe intrahepatic portal to hepatic venous shunts. No suspicious hepatic lesion. New 5.3 cm right lower lobe mass highly suspicious for neoplasm. Small right pleural effusion. Further evaluation with dedicated CT chest with IV contrast is recommended. I have personally reviewed the images of this examination and agree with the resident's findings and interpretations. Interpreted by: Erick Pride MD Preliminary Report By: Loli Rico Electronically signed By Erick Pride MD Dictated Date: 11/01/2024 1:14:32 PM Prelim Date: 11/01/2024 1:51:01 PM Sign Date: 11/01/2024 1:51:01 PM Ordering Provider: JAY [facility]01-27-2025 Evaluation note* Diagnosis Onset Date Resolution Status Admit Date Hemangioma of liver chronic Janua ry 2024 1:20pm Hyperbilirubinemia chronic Januar y 2024 1:20pm [facility] Work Phone: 1([phone]) 299-414911-08-2024 Note ORIGINAL EXAMINATION: LIVER ELASTOGRAPHY UFIFJRKAFF12/8/2024 1:27 pm RUQ Limited ultrasound abdomen and Hepatic elastography COMPARISON: 02/23/2024 HISTORY: ORDERING SYSTEM PROVIDED HISTORY: Reason for Exam: moderate fatty liver, rule out cirrhosis, All images are recorded and archived. FINDINGS: There is hyperechogenicity of the liver are with a macronodular contour. The liver is normal in size.. A 2.0 x 1.9 x 2.0 cm hyperechoic lesion is seen within the right hepatic lobe. This is not seen on the prior exam. In the setting of no known malignancy, this may represent hepatic hemangioma. There is no intra or extrahepatic bile duct dilatation. The common duct is not well visualized on this exam, and is therefore likely not dilated. The gallbladder is normally distended without calculus, wall thickening or tenderness. The gallbladder wall measures 1.6 mm. The visualized pancreas is normal in size. It is hyperechogenic, likely indicative fatty infiltration. No ascites is seen in the Torres's pouch. The right kidney shows no pelvocaliectasis. The right kidney measures 12.3 x 4.7 x 5.3. There is a 1.2 x 1.1 x 1.0 cm simple renal cyst within the lower pole. There is a 0.6 x 0.6 x 0.5 cm echogenic focus near the midpole which may represent a nonshadowing calculi versus a milk of calcium cyst. The visualized aorta appears normal. There is IVC prominence. Elastography of the liver was performed in the right lobe. Median velocity: 1.87 m/s IQR/median ratio: 9.5% (Value less than or equal to 15% should be seen to ensure exam adequacy.) IMPRESSION: Macronodular contour and fatty infiltration of the liver. There is a roughly 2 cm hyperechoic lesion seen within the right hepatic lobe, which is not appreciated on prior exams. If warranted clinically, further advanced imaging could be considered Liver elastography indicates moderate to severe risk of clinically significant liver fibrosis. Shear Wave Liver Elastography-liver fibrosis staging Median Velocity: Recommendation: 1.35-1.66 m/s (5.48 kPa - 8.29 kPa) Normal to mild risk of clinically significant liver fibrosis : METAVIR Stage F1 1.66-1.77 m/s (8.29 kPa - 9.40 kPa) Ceaw-ec-vduhaoir risk of clinically significant liver fibrosis. (METAVIR Stage F2) 1.77-1.99 m/s (9.40 kPa - 11.9 kPa) Moderate to severe risk of clinically significant liver fibrosis (METAVIR Stage F3) > 1.99 m/s (> 11.9 kPa) Advanced Fibrosis and/or Cirrhosis: (METAVIR Stage F4) I have personally reviewed the images of this examination and agree with the resident's findings and interpretation. Interpreted by: Denny Purdy DO Preliminary Report By: Romina Pichardo Electronically signed By Denny Purdy DO Dictated Date: 04/23/2024 1:37:02 PM Prelim Date: 04/23/2024 2:03:48 PM Sign Date: 04/23/2024 2:03:48 PM Ordering Provider: [facility]02-25-2024 Note. MICRO - Microbiology PROCEDURE: Culture Wound Aerobic with Gram Stain [*1] SOURCE: Drainage BODY SITE: Toe COLLECTED DATE/TIME: 08/06/2023 10:18 EST RECEIVED DATE/TIME: 08/07/2023 15:55 EST START DATE/TIME: 08/07/2023 15:55 EST FREE TEXT SOURCE: FINAL REPORTS Final Report [] Verified Date/Time/Personnel: 08/10/2023 12:05 EST Moderate normal skin cricket present. Sensitivity testing not indicated. PRELIMINARY REPORTS Preliminary Report [] Verified Date/Time/Personnel: 08/09/2023 10:49 EST Moderate normal skin cricket present. Sensitivity testing not indicated. Final report to follow. Preliminary Report [] Verified Date/Time/Personnel: 08/08/2023 12:48 EST Culture results pending. STAINS GS [] Verified Date/Time/Personnel: 08/07/2023 16:17 EST 2+ Gram Positive Rods Rare Gram Positive Cocci Performing Locations *1: This test was performed at: [facility], [address] [place] [address], [facility] , [facility] ([place])08-06-2023 Note ORIGINAL EXAMINATION: THREE XRAY VIEWS OF THE LEFT FOOT 08/06/2023 4:48 pm COMPARISON: Radiograph of the left foot June 25, 2023 HISTORY: ORDERING SYSTEM PROVIDED HISTORY: Reason for Exam: cellulitis of left great toe 2-3 months, rule out osteomyelitits FINDINGS: Suboptimal evaluation due to diffuse osteopenia. Compared to prior exam, on the lateral view of the distal tuft of the big toe appears to be thinner. Soft tissue swelling. Plantar calcaneal spurring peripheral artery calcifications. IMPRESSION: Suboptimal exam due to diffuse osteopenia. Compared to prior exam, on the lateral view of the distal tuft of the big toe appears to be thinner, could be projectional although given reported history could reflect sequelae of osteomyelitis. Interpreted by: Jakob Mcgraw Preliminary Report By: Jakob Mcgraw Electronically signed By Jakob Mcgraw Dictated Date: 08/06/2023 5:09:47 PM Prelim Date: 08/06/2023 5:14:09 PM Sign Date: 08/06/2023 5:14:09 PM Ordering Provider: [facility]02-20-2024 History and physical note Author Rashad Friend [facility] August 05, 2023 2:06pm Note Date/Time August 05, 2023 2:06pm [facility] Medical Records Department [address] [place] [address] History & Physical Exam 08/05/23 1403 MR#: [id number] Acct: [id number] Name: RAMÓN THOMAS Rep #:[id number] : 1955 68 From: Rashad Friend DO PCP: Dr. Jay Easton, DO Status:REG [facility] Location: [place] [address] HPI - General General Date of Admission: 08/05/23 Date of Service: 08/05/23 HPI Narrative RAMÓN THOMAS, is a 68 M who presentsToday for screening colonoscopy. He had a colonoscopy proximately 14 years ago and that was normal. He has a past medicalhistory of hypertension.He also has a history of anemia chronic disease and pasthistory of osteomyelitis. He is not having any problems at this time. He denies any chest pain or shortness of breath. All other 16 review of systems are negative except as per past mentioned HPI. [facility] Medical History (Updated 07/30/23 @ 13:48 by Kendal Da Silva) (HFpEF) heart failure with preserved ejection fraction Anemia Arthritis Arthritis of left hip Asthma Atrial fibrillation BiPAP (biphasic positive airway pressure) dependence Bone lesion Cancer Cardiology follow-up encounter Chronic anemia Chronic cough Chronic pain Chronic pain of toe of left foot CKD (chronic kidney disease), stage II COPD (chronic obstructive pulmonary disease) High cholesterol History of atrial fibrillation History of edema History of stress test Hx of colonic polyps Hyperlipidemia Hyperparathyroidism Hypothyroidism Idiopathic hypertrophic subaortic stenosis Lesion of lumbar spine Low iron Lumbar degenerative disc disease Lumbar facet arthropathy Lumbar radiculopathy MRSA infection Nephrolithiasis Non-smoker Nonrheumatic mitral valve regurgitation Observed sleep apnea Peripheral neuropathy Permanent atrial fibrillation Restrictive lung disease Sleep apnea Thyroid disease Walker as ambulation aid Wears glasses Home Medications spironolactone 25 mg tablet 25 mg PO BID diuretic 10/23/13 [History Last Taken 11/15/17] levothyroxine 125 mcg tablet 125 mcg PO DAILY thyroid 11/16/17 [History Last Taken 05/21/18 09:30 125 MCG] albuterol sulfate 90 mcg/actuation aerosol inhaler 2 puff inhalation Q4H PRN shortness of breath or wheezing 10/24/22 [History Last Taken Unknown] calcitriol 0.25 mcg capsule 0.25 mcg PO DAILY 10/24/22 [History Last Taken Unknown] calcium gluconate 60 mg calcium (650 mg) tablet 60 mg PO DAILY 10/24/22 [History Last Taken Unknown] cyanocobalamin (vitamin B-12) 1,000 mcg tablet 1,000 mcg PO DAILY 10/24/22 [History Last Taken Unknown] magnesium oxide 400 mg (241.3 mg magnesium) tablet 400 mg PO DAILY 10/24/22 [History Last Taken Unknown] metoprolol tartrate 100 mg tablet 50 mg PO BID 10/24/22 [History Last Taken 08/05/23] potassium chloride 10 mEq tablet,extended release 20 meq PO DAILY 10/24/22 [History Last Taken Unknown] rivaroxaban 20 mg tablet (Xarelto) 20 mg PO DAILY 10/24/22 [History Last Taken 08/01/23] ibandronate 150 mg tablet 150 mg PO QMONTH 11/12/22 [History Last Taken Unknown] diltiazem HCl 120 mg capsule,extended release 24 hr 120 mg PO DAILY 06/26/23 [History Last Taken Unknown] trazodone 100 mg tablet 100 mg PO QHS 06/26/23 [History Last Taken Unknown] atorvastatin 20 mg tablet 20 mg PO QHS 30 days #30 tabs 06/28/23 [Rx Last Taken Unknown] sennosides 8.6 mg-docusate sodium 50 mg tablet (Stool Softener-Stimulant Laxative) 2 tab PO BID PRN PRN Constipation #0 tabs 06/28/23 [Rx Last Taken Unknown] fluticasone fur. 200 mcg-umeclid 62.5 mcg-vilant 25 mcg inhalat.powder (Trelegy Ellipta) 1 inh inhalation DAILY 07/10/23 [History Last Taken Unknown] torsemide 20 mg tablet 20 mg PO BID 07/30/23 [History Last Taken Unknown] Allergy/AdvReac Type Severity Reaction Status Date / Time Tetracyclines Allergy Swelling Verified 08/05/23 13:35 Family History Father Myocardial infarction CAD (coronary artery disease) Heart disease Hypertension Mother Hypertension Diabetes Surgical History (Updated 07/30/23 @ 13:48 by Kendal Da Silva) History of cardiac catheterization History of lung surgery History of surgery on lower extremity History of transesophageal echocardiography (JAMEE) Hx of cardiovascular stress test Hx of colonoscopy Hx of echocardiogram Hx of tonsillectomy Social History household members: none current occupational status: retired Smoking Status: Never smoker alcohol intake: never substance use type: does not use caffeine: Yes Type: carbonated beverages ROS Constitutional Constitutional: Denies body ache(s), chills, fatigue or fever(s) Eyes Eyes: Denies diplopia, eye pain or loss of vision ENT HEENT: Denies dysphagia, nasal congestion, nasal discharge or sore throat Cardiovascular Cardiovascular: Denies chest pain, cold extremities or palpitations Respiratory/Chest Respiratory/Chest: Denies chest congestion, cough, dyspnea or wheezing Gastrointestinal Gastrointestinal: Denies abdominal pain, constipation, diarrhea, nausea or vomiting Genitourinary Genitourinary: Denies dysuria, hematuria, urinary frequency, urinary hesitancy, urinary incontinence or urinary urgency Musculoskeletal Musculoskeletal: Denies joint pain, joint stiffness or joint swelling Integumentary Integumentary: Denies jaundice, lesions, pruritus or rash Neurologic Neurologic: Denies dizziness, numbness or seizures Psychiatric Psychiatric: Denies anxiety or depression Endocrine Endocrinology: Denies cold intolerance, heat intolerance, polydipsia or polyuria Hematologic/Lymphatic Hematologic/Lymphatic: Reports anemia, easy bleeding and easy bruising Allergic/Immunologic Allergic/Immunologic: Denies rhinitis, hives, urticaria or wheezing Vital Signs Vital Signs Vital Signs: 08/05/23 13:36 08/05/23 13:36 Temperature 97.1 F L Temperature Source Temporal Pulse Rate 93 Respiratory Rate 16 Respiratory Pattern Normal Blood Pressure 107/76 Blood Pressure Mean 86 Blood Pressure Source Monitor Blood Pressure Position Semi-Fowlers Blood Pressure Location Right Arm Pulse Ox 98 Oxygen Delivery Method Room Air Weight Weight: 210 lb Body Mass Index (BMI) 31.9 Physical Exam Const alert, oriented x3, no apparent distress, healthy appearing and well nourished General Appearance: cooperative, comfortable, well kempt and well developed Orientation / Consciousness: awake and oriented to person HEENT Head and Scalp: normocephalic and atraumatic Face and Sinus: normal facial exam Mouth: oral and palatal mucosa normal Eyes General Eye: normal appearance of both eyes Neck full ROM Lymph Lymphatic: no lymphadenopathy noted Chest inspection of chest normal Resp normal respiratory effort and no use of accessory muscles Cardio regular rate and regular rhythm GI normal to inspection, nondistended, normoactive bowel sounds, soft to palpation,non-tender, non-distended and no masses Auscultation: normoactive bowel sounds Palpation: soft Percussion: normal to percussion Rectal Exam: visual inspection normal and normal sphincter tone no CVA tenderness Back/Spine no CVA tenderness and normal ROM Extremity normal to inspection Peripheral Pulses: Yes pulses 2+ throughout Skin no rashes or lesions noted General Skin Exam: no breakdown, elasticity normal and turgor normal Neuro oriented x3 Motor Exam: strength 5/5 throughout Psych mental status grossly normal Appearance: grossly normal Attitude: calm Activity / Motor Behavior: appropriate eye contact Speech: normal speech Thought Process: normal thought process Thought Content: normal thought content Attention / Concentration: attention grossly intact Memory / Cognition: memory grossly intact Insight: insight good Judgement: judgement good Assessment & Plan Assessment/Plan (1) Encounter for screening for malignant neoplasm of colon: PLAN: He was explained alternatives, benefits, risk including not withstanding bleeding, infection, sepsis, perforation, need for emergent surgery and . He will have an ASA of 3. 08/05/23 1406 <Electronically signed by Rashad Bronson DO> Cosigner Signature (if applicable): CC: Dr. Jay Easton DO; Rashad Bronson DO~ Signed [facility] Work Phone: 1(203) 764-799202-20-2024 Procedure [facility] 08-05-2023 Procedure [facility]01-20-2024 Note. MICRO - Microbiology PROCEDURE: Culture Wound Aerobic [...] Locations *1: This test was performed at: [facility], [address] [place], [place] [address] ([place])06-28-2023 Discharge summary Author Behzad Glez [facility] June 28, 2023 4:20pm Note Date/Time June 28, 2023 4 :20pm [facility] Medical Records Department [address] [place] [address] Discharge Summary 06/28/23 1618 MR#: [id number] Acct: [id number] Name: RAMÓN THOMAS Rep #:[id number] : 1955 67 From: Behzad Baker PCP: Dr. Jay Easton DO Status:[facility] Date of Admission: 06/26/23 Date of Discharge: 06/28/23 Primary Care Physician: Dr. Jay Easton DO Consultations 06/26/23 16:50 Consult: Infectious Disease Routine Consulting Provider: Sera Mcdermott Reason for Consult: Diabetic foot wound EMERGENT Consult: No MD Notified: Yes Date Notified: 06/26/23 Time Notified: 16:25 Method of Notification: Text Consult: Podiatry Routine Consulting Provider: Erick Lorenzo Reason for Consult: L great toe wound, osteo EMERGENT Consult: No MD Notified: Yes Date Notified: 06/26/23 Time Notified: 16:22 Method of Notification: ED Physician Initiated Reason For Visit: L GREAT TOE OSTEOMYELITIS Diagnosis Discharge Diagnosis (1) Osteomyelitis of great toe of left foot: Status: Acute Code(s): M86.9 - Osteomyelitis, unspecified Plan The patient is a 67 y/o M came to ED for left great toe wound and he states there is osteomyelitis. Patient had x-ray day before ED visit in outside facility was not reported osteomyelitis. Patient also had bilateral lymphedema,on diuretics. Chronic peripheral neuropathy. #1. Left great toe wound with acute osteomyelitis: Patient is admitted on MedSurg floor. Labs reviewed. X-ray done in ED is shows bony erosive changes, suggestive of osteomyelitis of distal portion of left great toe. Soft tissue swelling. Enrique wrap bandage and leg elevation. ESR and CRP normal. Lactic acid is mildlyelevated. Patient's did not had fever or other criteria for SIRS or qSOFA scoreand does not qualify for sepsis. Sepsis ruled out. Vascular study, OLY pending. On IV antibiotics. [employer] is consulted.On IV vancomycin and Zosyn. A1c 4.6. Diabetes or prediabetes ruled out 06/28 Blood cultures are negative. Patient evaluated by ID.Low suspicion for actual osteomyelitis. ID recommended discharge home on Augmentin for 5 days. Prescription given by ID. #2. PAD: Reported history, per report no history of any peripheral angioplasty or stenting, continue Xarelto. Prescription given for atorvastatin 20 mg daily. Maintain blood pressure. #3. Chronic Kidney Disease Stage II primarily per GFR trending however GFR mildly reduced today but previously primarily 60-80 range: Admission BUN/Cr 16/1.39, baseline renal function 0.9-1.2, repeat BUN and creatinine normal . #4. Chronic AF: We will continue to home with all end of regimen, holding home Xarelto with last dose the evening prior. #5. Chronic COPD/restrictive lung disease: From current list not on any chronicregimen, PRN albuterol, HOB, IS parameters. #6. Chronic peripheral neuropathy: Likely plays a significant role in patient'sinjury as noted above, not on any chronic regimen but if necessary could consider adding low-dose gabapentin. #7. HFpEF: Most recent echocardiogram noted 04/07/2018 with EF 65%, stage I diastolic dysfunction, severely enlarged LA, mild MVI, RVSP 49 mmHg with moderate pulmonary hypertension, mild ATIF, mildly dilated aortic root. Given history will only judiciously hydrate as needed. Temporarily holding patient home Xarelto as noted, continue metoprolol, spironolactone, not on ENRIQUE inhibitor/ARB, not on statin therapy. #8. Hypertension: Continue home regimen including diltiazem, spironolactone, metoprolol, PRN hydralazine. #9. History of dyslipidemia : Fasting profile shows LDL in normal range HDL normal. #10. Hypothyroidism: continue patient home levothyroxine regimen. #11. Chronic normocytic anemia: Admission hemoglobin 12.2, MCV 93.3, baseline hemoglobin 11-12, stable, continue to trend. #12. Obesity: Weight loss and lifestyle changes encouraged. #13. OPAL: CPAP nightly. #14. DVT prophylaxis: Will temporally hold patient home Xarelto regimen with last dose 06/25/2023 per podiatry request for possible operative needs. Resume once amenable. #15. CODE status: Patient HCPOA and living will are not in place but he notes his sister Sacha would be his decision-maker if he was unable. Discussed CODEstatus at length including difference between FULL code, DNR-CCA and DNR-CC status. Following discussions about the differences in these status, requested Full Code status. Discharge medication reconciliation done. Discharge follow-up instructions completed. Discharge process discussed with the patient and all questions were answered to patient's satisfaction. Follow with PCP in 1 to 2 weeks Total time spent, exact 35 minutes on discharge meds reconciliation, examination, coordination of care with nurses and ancillary staff, review of imaging and blood test and discussion with the patient on follow-up instructions. 06/26/23 14:00: WBC 11.1 H, RBC 4.01 L, Hgb 12.2 L, Hct 37.4 L, MCV 93.3, MCH 30.4, MCHC 32.6, RDW Std Deviation 48.0 H, RDW Coeff of Loretta 13.9, Plt Count 207,MPV 11.6, Immature Gran % (Auto) 0.600, Neut % (Auto) 84.3 H, Lymph % (Auto) 6.0L, Blount % (Auto) 8.9, Eos % (Auto) 0.1, Baso % (Auto) 0.1, Absolute Neuts (auto)9.4 H, Absolute Lymphs (auto) 0.67 L, Nucleated RBC % 0, ESR 6, Sodium 136, Potassium 3.9, Chloride 100, Carbon Dioxide 29.0, Anion Gap 7, BUN 16, Creatinine 1.39 H, Est GFR (MDRD) Af Amer 65, Est GFR (MDRD) Non-Af 54 L, BUN/Creatinine Ratio 11.5, Glucose 94, Lactic Acid 2.2 H*, Calcium 9.5, C-React Prot Ext Range < 2.90 06/26/23 18:32: Lactic Acid 1.1 06/27/23 04:05: WBC 6.7, RBC 3.39 L, Hgb 10.3 L, Hct 32.1 L, MCV 94.7 H, MCH 30.4, MCHC 32.1, RDW Std Deviation 49.0 H, RDW Coeff of Loretta 14.1, Plt Count 158,MPV 12.2 H, Immature Gran % (Auto) 0.400, Neut % (Auto) 74.4 H, Lymph % (Auto) 13.7 L, Blount % (Auto) 11.3 H, Eos % (Auto) 0.1, Baso % (Auto) 0.1, Absolute Neuts (auto) 5.0, Absolute Lymphs (auto) 0.92, Nucleated RBC % 0, Sodium 138, Potassium 3.9, Chloride 104, Carbon Dioxide 28.0, Anion Gap 6, BUN 12, Creatinine 1.12, Estim Creat Clear Calc 71.47, Est GFR (MDRD) Af Amer 84, Est GFR (MDRD) Non-Af 69, BUN/Creatinine Ratio 10.7, Glucose 82, Hemoglobin A1c 4.6, Calcium 8.3 L, Total Bilirubin 0.70, AST 17, ALT 15 L, Alkaline [place]45, Total Protein 5.6 L, Albumin 2.9 L, Globulin 2.7, Albumin/Globulin Ratio 1.1, Triglycerides 28, Cholesterol 92, LDL Cholesterol 34, VLDL Cholesterol 6, HDL Cholesterol 52 Medications at Discharge Home Medications spironolactone 25 mg tablet 25 mg PO BID diuretic 10/23/13 levothyroxine 125 mcg tablet 125 mcg PO DAILY thyroid 11/16/17 albuterol sulfate 90 mcg/actuation aerosol inhaler 2 puff inhalation Q4H PRN shortness of breath or wheezing 10/24/22 calcitriol 0.25 mcg capsule 0.25 mcg PO DAILY 10/24/22 calcium gluconate 60 mg calcium (650 mg) tablet 60 mg PO DAILY 10/24/22 cyanocobalamin (vitamin B-12) 1,000 mcg tablet 1,000 mcg PO DAILY 10/24/22 lidocaine HCl 4 % topical cream (Aspercreme (lidocaine HCl)) 1 applic topical TID PRN pain 10/24/22 magnesium oxide 400 mg (241.3 mg magnesium) tablet 400 mg PO DAILY 10/24/22 metoprolol tartrate 100 mg tablet 50 mg PO BID 10/24/22 potassium chloride 10 mEq tablet,extended release 20 meq PO DAILY 10/24/22 rivaroxaban 20 mg tablet (Xarelto) 20 mg PO DAILY 10/24/22 ibandronate 150 mg tablet 150 mg PO QMONTH 11/12/22 diltiazem HCl 120 mg capsule,extended release 24 hr 120 mg PO DAILY 06/26/23 trazodone 100 mg tablet 100 mg PO QHS 06/26/23 amoxicillin 875 mg-potassium clavulanate 125 mg tablet 1 tab PO BID #10 tabs 06/27/23 atorvastatin 20 mg tablet 20 mg PO QHS 30 days #30 tabs 06/28/23 sennosides 8.6 mg-docusate sodium 50 mg tablet (Stool Softener-Stimulant Laxative) 2 tab PO BID PRN PRN Constipation #0 tabs 06/28/23 Physical Exam Narrative Seen and examined. Patient is doing fine. No fever. No open ulcer but chronic pain and cellulitis. Ingrowing toenail/Localized cellulitis. Clinically low suspicion for osteomyelitis. Physical exam: General: Alert, Oriented x3, Cooperative, obesity grade 3 BMI 33.0 kg/m? HEENT: Atraumatic, PERRLA, EOMI, Normocephalic Oral: No Gingival or Mucosal Lesions/ Ulcerations Neck: Supple, No JVD, Negative Carotid Bruits Lungs: Air entry diminished in bilateral lung bases. No crepitation/rhonchi Cardiovascular: Regular rate, Regular Rhythm, Normal S1, Normal S2, No murmurs Abdomen: Bowel Sounds Present, Soft, Non Tender, Non-Distended : No renal angle tenderness. No suprapubic tenderness. Extremities: No edema, Capillary Refill Less than 3 Seconds Skin: Mild redness under the left great toenail, localized cellulitis. Improving. Musculoskeletal: Mild tenderness present over left great toe. Ingrown toenail of left hallux. Tenderness present over left toenail but no open ulcer. Neurological: Cranial nerves II-XII grossly intact, DTR 2+/4. Bilateral peripheral neuropathy bilateral feet. Position sense and gross sensation to touch and temperature absent in toes and feet Psych/Mental Status: Normal Affect, Appropriate. Weight / BMI Weight Weight: 216 lb 7.903 oz Body Mass Index (BMI) 32.8 ABG / Lab / Microbiology Data 06/28/23 04:42 06/28/23 04:42 Laboratory: Laboratory Results - last 24 hr 06/28/23 04:42: WBC 5.9, RBC 3.58 L, Hgb 11.0 L, Hct 34.7 L, MCV 96.9 H, MCH 30.7, MCHC 31.7 L, RDW Std Deviation 50.3 H, RDW Coeff of Loretta 14.0, Plt Count 159, MPV 11.3, Immature Gran % (Auto) 0.700, Neut % (Auto) 67.5, Lymph % (Auto) 17.4 L, Blount % (Auto) 12.7 H, Eos % (Auto) 1.2, Baso % (Auto) 0.5, Absolute Neuts (auto) 4.0, Absolute Lymphs (auto) 1.03, Nucleated RBC % 0, Sodium 141, Potassium 4.3, Chloride 109 H, Carbon Dioxide 30.0, Anion Gap 2 L, BUN 7, Creatinine 1.09, Estim Creat Clear Calc 73.82, Est GFR (MDRD) Af Amer 86, Est GFR (MDRD) Non-Af 71, BUN/Creatinine Ratio 6.4 L, Glucose 91, Calcium 8.5, Vancomycin Trough 18.8 H Microbiology: Microbiology 06/26/23 15:24 Blood Culture (Wb) - Anticubital Left Blood Culture - Preliminary No growth in 48 hours. D/C Instructions Discharge Diet: 2000 mg Sodium Diet Weight Bearing Status: Weight bearing as tolerated Call your doctor if you observe: Fever of 101 or Higher, Coldness, Increased Pain, Numbness or Tingling, Change in Color, Inability to urinate, Inability to have a bowel movement, Shortness of breath, Dizziness, Fainting spells, Swellingin the ankles, Chest pain, Prolonged hiccupping, Increased palpitations (irregular heartbeat) and Calf discomfort When: IN 2 WEEKS Meaningful Use Info Meaningful Use Diagnoses (Choose all that apply): None applicable Discharge Plan Admission Admit Date/Time: 06/26/23 15:19 Primary Reason for Your Visit: Left ingrown toenail with subcutis infection/localized cellulitis Attending Provider: Behzad Glez Primary Care Provider: Jay Easton Consulting Providers: Erick Lorenzo; Crystal Emerson; Sera Mcdermott Discharge Orders/Prescriptions Prescriptions: New amoxicillin-pot clavulanate 875-125 mg tablet 1 tab PO BID Qty: 10 0RF atorvastatin 20 mg Tablet 20 mg PO QHS 30 Days Qty: 30 2RF sennosides-docusate sodium [Stool Softener-Stimulant Laxat] 8.6-50 mg Tablet 2 tab PO BID PRN PRN (Reason: Constipation) Qty: 0 0RF Continued albuterol sulfate 90 mcg/actuation HFA aerosol inhaler 2 puff inhalation Q4H PRN (Reason: shortness of breath or wheezing) calcitriol 0.25 mcg capsule 0.25 mcg PO DAILY calcium gluconate 60 mg calcium (650 mg) tablet 60 mg PO DAILY cyanocobalamin (vitamin B-12) 1,000 mcg tablet 1,000 mcg PO DAILY lidocaine HCl [Aspercreme (lidocaine HCl)] 4 % cream 1 applic topical TID PRN (Reason: pain) magnesium oxide 400 mg (241.3 mg magnesium) tablet 400 mg PO DAILY metoprolol tartrate 100 mg tablet 50 mg PO BID potassium chloride 10 mEq tablet extended release 20 meq PO DAILY Xarelto 20 mg tablet 20 mg PO DAILY Patient Comments: TAKE 1 TABLET BY MOUTH EVERY DAY EVENING MEAL ibandronate 150 mg tablet 150 mg PO QMONTH spironolactone 25 MG tablet 25 mg PO BID levothyroxine 125 MCG tablet 125 mcg PO DAILY trazodone 100 mg tablet 100 mg PO QHS Patient Comments: TAKE 1 TO 2 TABLETS BY MOUTH AT BEDTIME diltiazem HCl 120 mg capsule,extended release 24hr 120 mg PO DAILY Patient Comments: TAKE ONE CAPSULE BY MOUTH ONCE DAILY Referrals / Follow Up: Jay Easton DO [Primary Care Provider] - Erick Lorenzo DPM [Med Staff - Active Staff] - Within 2 Weeks Disposition Disposition (needs filled in before D/C Order can be placed): Home, Self Care Charges/Coding Visit Charges Inpatient E&M: 78265 Disch Hosp >30min 06/28/23 1620 <Electronically signed by Behzad Glez MD> Cosigner Signature (if applicable): CC: Dr. Jay Easton DO; Dr. Behzad Glez MD~ Signed [facility] Work Phone: 1(103) 327-905701-13-2024 Discharge summary Author Behzad Glez [facility] June 28, 2023 4:18pm Note Date/Time June 28, 2023 4 :15pm [facility] Medical Records Department [facility] [place] [address] [place] [address] Instructions for Home/Discharge Instructions 06/28/23 1114 MR#: [id number] Acct: [id number] Name: RAMÓN THOMAS Rep #:[id number] : 1955 67 From: Behzad Baker PCP: Dr. Jay Easton, DO Status:ADM IN Discharge Instructions Diet Discharge Diet: 2000 mg Sodium Diet Activity Discharge Activity: Return to Normal Activity Weight Bearing Status: Weight bearing as tolerated Dressing / Incision Call your doctor if you observe: Fever of 101 or Higher, Coldness, Increased Pain, Numbness or Tingling, Change in Color, Inability to urinate, Inability to have a bowel movement, Shortness of breath, Dizziness, Fainting spells, Swellingin the ankles, Chest pain, Prolonged hiccupping, Increased palpitations (irregular heartbeat) and Calf discomfort Follow Up Care When: IN 2 WEEKS Test Results: Test results from this visit will be discussed in further detail at your follow- up appointment, if applicable. Discharge Plan Admission Admit Date/Time: 06/26/23 15:19 Primary Reason for Your Visit: Left ingrown toenail with subcutis infection/localized cellulitis Attending Provider: Behzad Glez Primary Care Provider: Jay Easton Consulting Providers: Erick Lorenzo; Crystal Emerson; Sera Mcdermott Discharge Orders/Prescriptions Prescriptions: New amoxicillin-pot clavulanate 875-125 mg tablet 1 tab PO BID Qty: 10 0RF atorvastatin 20 mg Tablet 20 mg PO QHS 30 Days Qty: 30 2RF sennosides-docusate sodium [Stool Softener-Stimulant Laxat] 8.6-50 mg Tablet 2 tab PO BID PRN PRN (Reason: Constipation) Qty: 0 0RF Continued albuterol sulfate 90 mcg/actuation HFA aerosol inhaler 2 puff inhalation Q4H PRN (Reason: shortness of breath or wheezing) calcitriol 0.25 mcg capsule 0.25 mcg PO DAILY calcium gluconate 60 mg calcium (650 mg) tablet 60 mg PO DAILY cyanocobalamin (vitamin B-12) 1,000 mcg tablet 1,000 mcg PO DAILY lidocaine HCl [Aspercreme (lidocaine HCl)] 4 % cream 1 applic topical TID PRN (Reason: pain) magnesium oxide 400 mg (241.3 mg magnesium) tablet 400 mg PO DAILY metoprolol tartrate 100 mg tablet 50 mg PO BID potassium chloride 10 mEq tablet extended release 20 meq PO DAILY Xarelto 20 mg tablet 20 mg PO DAILY Patient Comments: TAKE 1 TABLET BY MOUTH EVERY DAY EVENING MEAL ibandronate 150 mg tablet 150 mg PO QMONTH spironolactone 25 MG tablet 25 mg PO BID levothyroxine 125 MCG tablet 125 mcg PO DAILY trazodone 100 mg tablet 100 mg PO QHS Patient Comments: TAKE 1 TO 2 TABLETS BY MOUTH AT BEDTIME diltiazem HCl 120 mg capsule,extended release 24hr 120 mg PO DAILY Patient Comments: TAKE ONE CAPSULE BY MOUTH ONCE DAILY Referrals / Follow Up: Jay Easton DO [Primary Care Provider] - Erick Lorenzo DPM [Med Staff - Active Staff] - Within 2 Weeks Disposition Disposition (needs filled in before D/C Order can be placed): Home, Self Care 06/28/23 1618<Electronically signed by Behzad Glez MD>Bezhad Glez MD CC: MANASA Lorenzo; Dr. Crystal Emerson MD; Dr. Jay Easton DO; Dr. Sera Mcdermott MD ~ Signed [facility] Work Phone: 1(714) 936-891401-13-2024 Consult note Author Hailey Peter [facility] June 28, 2023 5:27am Note Date/Time June 28, 2023 5 :27am [facility] Medical Records Department [address] [place] [address] Pharmacokinetic/Renal -Consult 06/28/2326 MR#: [id number] Acct: [id number] Name: MARTHARAMÓN L Rep #:[id number] : 1955 67 From: Hailey Ward od PCP: Dr. Jay Easton DO Status:ADM IN Y Location: [place] [address] Consult Antibiotic Management Pharmacy has been consulted to manage selected antibiotic: Vancomycin Type of Intervention Type of Consult: Follow-up Labs Labs: Sodium 141 mmol/L (136-145) 06/28/23 04:42 Potassium 4.3 mmol/L (3.5-5.1) 06/28/23 04:42 Chloride 109 mmol/L (98-107) H 06/28/23 04:42 Carbon Dioxide 30.0 mmol/L (21.0-32.0) 06/28/23 04:42 Anion Gap 2 (5-15) L 06/28/23 04:42 BUN 7 mg/dL (7-18) 06/28/23 04:42 Creatinine 1.09 mg/dL (0.70-1.30) 06/28/23 04:42 Est GFR (MDRD) Af Amer 86 mL/min (>60) 06/28/23 04:42 Est GFR (MDRD) Non-Af 71 mL/min (>60) 06/28/23 04:42 BUN/Creatinine Ratio 6.4 RATIO (10-20) L 06/28/23 04:42 Glucose 91 mg/dL (74-106) 06/28/23 04:42 Vancomycin Trough 18.8 ug/mL (5.0-15.0) H 06/28/23 04:42 Goal Trough Goal Trough: 15-20 mcg/mL Pharmacy Plan for Drug Dosing Pharmacy Plan for Drug Dosing: Pharmacy Service will continue to monitor and adjust dosing as required. TROUGH 18.8 @ 11 HOURS. NO CHANGES, FOLLOW UP TROUGH IN 2 DAYS Follow-Up Labs Follow-Up Labs: Trough: Vancomycin Date/Time Labs Ordered Labs to be done on [date and time ordered]: 06/30 @ 0430 06/28/23 0527 <Electronically signed by Hailey elise> Date _ Hailey Peter Cosigner Signature (if applicable): Date CC: ~ Signed [facility] Work Phone: 1(363) 801-855301-12-2024 Progress note Author Behzad Glez [facility] June 27, 2023 5:32pm Note Date/Time June 27, 2023 1 0:38am [facility] Medical Records Department [address] [place] [id number] Progress Note - Hospitalist 06/27/23 1031 MR#: [id number] Acct: [id number] Name: RAMÓN THOMAS Rep #:[id number] : 1955 67 From: Behzad Baker PCP: Dr. 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 (06/26/23) Objective Data Objective Data Vital Signs: Vital Signs Temp Pulse Resp BP Pulse Ox O2 Del Method O2 Flow Rate 98.1 F 70 16 99/68 95 Room Air 2 06/27/23 09:52 06/27/23 09:57 06/27/23 09:52 06/27/23 09:52 06/27/23 09:52 06/27/23 09:52 06/27/23 09:52 Oxygen Flow Rate (L/min) 2 Oxygen Delivery Method Room Air Weight: 217 lb 5 oz Body Mass Index (BMI) 32.9 Intake & Output: Intake and Output for Last 24 Hours 06/25/23 06/26/23 06/27/23 23:59 23:59 23:59 Intake Total 652 / 652 300 / 300 Balance 652 / 652 300 / 300 Lab / Micro Data 06/27/23 04:05 06/27/23 04:05 Labs: Laboratory Results - last 24 hr 06/26/23 14:00: WBC 11.1 H, RBC 4.01 L, Hgb 12.2 L, Hct 37.4 L, MCV 93.3, MCH 30.4, MCHC 32.6, RDW Std Deviation 48.0 H, RDW Coeff of Loretta 13.9, Plt Count 207,MPV 11.6, Immature Gran % (Auto) 0.600, Neut % (Auto) 84.3 H, Lymph % (Auto) 6.0L, Blount % (Auto) 8.9, Eos % (Auto) 0.1, Baso % (Auto) 0.1, Absolute Neuts (auto)9.4 H, Absolute Lymphs (auto) 0.67 L, Nucleated RBC % 0, ESR 6, Sodium 136, Potassium 3.9, Chloride 100, Carbon Dioxide 29.0, Anion Gap 7, BUN 16, Creatinine 1.39 H, Est GFR (MDRD) Af Amer 65, Est GFR (MDRD) Non-Af 54 L, BUN/Creatinine Ratio 11.5, Glucose 94, Lactic Acid 2.2 H*, Calcium 9.5, C-React Prot Ext Range < 2.90 06/26/23 18:32: Lactic Acid 1.1 06/27/23 04:05: WBC 6.7, RBC 3.39 L, Hgb 10.3 L, Hct 32.1 L, MCV 94.7 H, MCH 30.4, MCHC 32.1, RDW Std Deviation 49.0 H, RDW Coeff of Loretta 14.1, Plt Count 158,MPV 12.2 H, Immature Gran % (Auto) 0.400, Neut % (Auto) 74.4 H, Lymph % (Auto) 13.7 L, Blount % (Auto) 11.3 H, Eos % (Auto) 0.1, Baso % (Auto) 0.1, Absolute Neuts (auto) 5.0, Absolute Lymphs (auto) 0.92, Nucleated RBC % 0, Sodium 138, Potassium 3.9, Chloride 104, Carbon Dioxide 28.0, Anion Gap 6, BUN 12, Creatinine 1.12, Estim Creat Clear Calc 71.47, Est GFR (MDRD) Af Amer 84, Est GFR (MDRD) Non-Af 69, BUN/Creatinine Ratio 10.7, Glucose 82, Hemoglobin A1c 4.6, Calcium 8.3 L, Total Bilirubin 0.70, AST 17, ALT 15 L, Alkaline [id number], Total Protein 5.6 L, Albumin 2.9 L, Globulin 2.7, Albumin/Globulin Ratio 1.1, Triglycerides 28, Cholesterol 92, LDL Cholesterol 34, VLDL Cholesterol 6, HDL Cholesterol 52 Radiography Diagnostic Testing: Radiology Impression Toe X-Ray 06/26/23 14:34 IMPRESSION: Erosive changes are seen in the distal portion of the distal pharynx of the great toe suggestive of osteomyelitis. Soft tissue swelling. Physical Exam Narrative Seen and examined. Patient has left great toe osteomyelitis. Complain of mild pain. No open ulcerbut chronic pain and cellulitis. Ingrowing toenail. Physical exam: General: Alert, Oriented x3, Cooperative, obesity grade 3 BMI 33.0 kg/m? HEENT: Atraumatic, PERRLA, EOMI, Normocephalic Oral: No Gingival or Mucosal Lesions/ Ulcerations Neck: Supple, No JVD, Negative Carotid Bruits Lungs: Air entry diminished in bilateral lung bases. No crepitation/rhonchi Cardiovascular: Regular rate, Regular Rhythm, Normal S1, Normal S2, No murmurs Abdomen: Bowel Sounds Present, Soft, Non Tender, Non-Distended : No renal angle tenderness. No suprapubic tenderness. Extremities: No edema, Capillary Refill Less than 3 Seconds Skin: No rashes, No breakdown Musculoskeletal: Mild tenderness present over left great toe. Ingrown toenail of left hallux. Tenderness present over left toenail but no open ulcer. Neurological: Cranial nerves II-XII grossly intact, DTR 2+/4. Bilateral peripheral neuropathy bilateral feet. Position sense and gross sensation to touch and temperature absent in toes and feet Psych/Mental Status: Normal Affect, Appropriate. Assessment & Plan Assessment/Plan (1) Osteomyelitis of great toe of left foot: PLAN: Plan The patient is a 67 y/o M came to ED for left great toe wound and he states there is osteomyelitis. Patient had x-ray day before ED visit in outside facility was not reported osteomyelitis. Patient also had bilateral lymphedema,on diuretics. Chronic peripheral neuropathy. #1. Left great toe wound with acute osteomyelitis: Patient is admitted on MedSurg floor. Labs reviewed. X-ray done in ED is shows bony erosive changes, suggestive of osteomyelitis of distal portion of left great toe. Soft tissue swelling. Enrique wrap bandage and leg elevation. ESR and CRP normal. Lactic acid is mildlyelevated. Patient's did not had fever or other criteria for SIRS or qSOFA scoreand does not qualify for sepsis. Sepsis ruled out. Vascular study, OLY pending. On IV antibiotics. Long Filler [employer] is consulted.On IV vancomycin and Zosyn. A1c 4.6. Diabetes or prediabetes ruled out #2. PAD: Reported history, per report no history of any peripheral angioplasty or stenting, holding Xarelto temporarily as noted with resumption immediately once able, requesting OLY/PVR as noted, adding low-dose statin, continue hypertensive regimen. #3. Chronic Kidney Disease Stage II primarily per GFR trending however GFR mildly reduced today but previously primarily 60-80 range: Admission BUN/Cr 16/1.39, baseline renal function 0.9-1.2, repeat BUN and creatinine normal /.12. #4. Chronic AF: We will continue to home with all end of regimen, holding home Xarelto with last dose the evening prior. #5. Chronic COPD/restrictive lung disease: From current list not on any chronicregimen, PRN albuterol, HOB, IS parameters. #6. Chronic peripheral neuropathy: Likely plays a significant role in patient'sinjury as noted above, not on any chronic regimen but if necessary could consider adding low-dose gabapentin. #7. HFpEF: Most recent echocardiogram noted 04/07/2018 with EF 65%, stage I diastolic dysfunction, severely enlarged LA, mild MVI, RVSP 49 mmHg with moderate pulmonary hypertension, mild ATIF, mildly dilated aortic root. Given history will only judiciously hydrate as needed. Temporarily holding patient home Xarelto as noted, continue metoprolol, spironolactone, not on ENRIQUE inhibitor/ARB, not on statin therapy. #8. Hypertension: Continue home regimen including diltiazem, spironolactone, metoprolol, PRN hydralazine. #9. History of dyslipidemia : Fasting profile shows LDL in normal range HDL normal. #10. Hypothyroidism: continue patient home levothyroxine regimen. #11. Chronic normocytic anemia: Admission hemoglobin 12.2, MCV 93.3, baseline hemoglobin 11-12, stable, continue to trend. #12. Obesity: Weight loss and lifestyle changes encouraged. #13. OPAL: CPAP nightly. #14. DVT prophylaxis: Will temporally hold patient home Xarelto regimen with last dose 06/25/2023 per podiatry request for possible operative needs. Resume once amenable. #15. CODE status: Patient HCPOA and living will are not in place but he notes his sister Sacha would be his decision-maker if he was unable. Discussed CODEstatus at length including difference between FULL code, DNR-CCA and DNR-CC status. Following discussions about the differences in these status, requested Full Code status. Advanced Care Planning Face to Face Time: 16 minutes. 06/26/23 14:00: WBC 11.1 H, RBC 4.01 L, Hgb 12.2 L, Hct 37.4 L, MCV 93.3, MCH 30.4, MCHC 32.6, RDW Std Deviation 48.0 H, RDW Coeff of Loretta 13.9, Plt Count 207,MPV 11.6, Immature Gran % (Auto) 0.600, Neut % (Auto) 84.3 H, Lymph % (Auto) 6.0L, Blount % (Auto) 8.9, Eos % (Auto) 0.1, Baso % (Auto) 0.1, Absolute Neuts (auto)9.4 H, Absolute Lymphs (auto) 0.67 L, Nucleated RBC % 0, ESR 6, Sodium 136, Potassium 3.9, Chloride 100, Carbon Dioxide 29.0, Anion Gap 7, BUN 16, Creatinine 1.39 H, Est GFR (MDRD) Af Amer 65, Est GFR (MDRD) Non-Af 54 L, BUN/Creatinine Ratio 11.5, Glucose 94, Lactic Acid 2.2 H*, Calcium 9.5, C-React Prot Ext Range < 2.90 06/26/23 18:32: Lactic Acid 1.1 06/27/23 04:05: WBC 6.7, RBC 3.39 L, Hgb 10.3 L, Hct 32.1 L, MCV 94.7 H, MCH 30.4, MCHC 32.1, RDW Std Deviation 49.0 H, RDW Coeff of Loretta 14.1, Plt Count 158,MPV 12.2 H, Immature Gran % (Auto) 0.400, Neut % (Auto) 74.4 H, Lymph % (Auto) 13.7 L, Blount % (Auto) 11.3 H, Eos % (Auto) 0.1, Baso % (Auto) 0.1, Absolute Neuts (auto) 5.0, Absolute Lymphs (auto) 0.92, Nucleated RBC % 0, Sodium 138, Potassium 3.9, Chloride 104, Carbon Dioxide 28.0, Anion Gap 6, BUN 12, Creatinine 1.12, Estim Creat Clear Calc 71.47, Est GFR (MDRD) Af Amer 84, Est GFR (MDRD) Non-Af 69, BUN/Creatinine Ratio 10.7, Glucose 82, Hemoglobin A1c 4.6, Calcium 8.3 L, Total Bilirubin 0.70, AST 17, ALT 15 L, Alkaline [id number], Total Protein 5.6 L, Albumin 2.9 L, Globulin 2.7, Albumin/Globulin Ratio 1.1, Triglycerides 28, Cholesterol 92, LDL Cholesterol 34, VLDL Cholesterol 6, HDL Cholesterol 52 Charges/Coding Visit Charges Inpatient E&M: 06395 Subs Hosp L2 06/27/23 2072 <Electronically signed by Behzad Glez MD> Cosigner Signature (if applicable): CC: ~ Signed [facility] Work Phone: 1(539) 494-153501-12-2024 Progress note Author Erick Lorenzo [facility] June 27, 2023 2:32pm Note Date/Time June 27, 2023 2 :32pm [facility] Medical Records Department [address] [place] [address] Progress Note 06/27/23 1423 MR#: [id number] Acct: [id number] Name: RAMÓN THOMAS Rep #:[id number] : 1955 67 From: Erick lynn DPM PCP: Dr. Jay Easton, DO Status:[id number] Subjective Patient seen early this afternoon resting bedside in chair with feet elevated. Denies pain to the feet. States only has pain if toe is pressed on in the corner of his ingrown. He denies constitutional symptoms. Denies further complaints. Objective Data Objective Data Vital Signs: Vital Signs Temp Pulse Resp BP Pulse Ox O2 Del Method O2 Flow Rate 98.1 F 70 16 99/68 95 Room Air 2 06/27/23 09:52 06/27/23 09:57 06/27/23 09:52 06/27/23 09:52 06/27/23 09:52 06/27/23 10:00 06/27/23 09:52 Oxygen Flow Rate (L/min) 2 Oxygen Delivery Method Room Air Weight: 98.571 kg Body Mass Index (BMI) 32.9 Intake & Output: Intake and Output for Last 24 Hours 06/25/23 06/26/23 06/27/23 23:59 23:59 23:59 Intake Total 652 / 652 300 / 300 Balance 652 / 652 300 / 300 Lab / Micro Data 06/27/23 04:05 06/27/23 04:05 Labs: Laboratory Results - last 24 hr 06/26/23 14:00: WBC 11.1 H, RBC 4.01 L, Hgb 12.2 L, Hct 37.4 L, MCV 93.3, MCH 30.4, MCHC 32.6, RDW Std Deviation 48.0 H, RDW Coeff of Loretta 13.9, Plt Count 207,MPV 11.6, Immature Gran % (Auto) 0.600, Neut % (Auto) 84.3 H, Lymph % (Auto) 6.0L, Blount % (Auto) 8.9, Eos % (Auto) 0.1, Baso % (Auto) 0.1, Absolute Neuts (auto)9.4 H, Absolute Lymphs (auto) 0.67 L, Nucleated RBC % 0, ESR 6, Sodium 136, Potassium 3.9, Chloride 100, Carbon Dioxide 29.0, Anion Gap 7, BUN 16, Creatinine 1.39 H, Est GFR (MDRD) Af Amer 65, Est GFR (MDRD) Non-Af 54 L, BUN/Creatinine Ratio 11.5, Glucose 94, Lactic Acid 2.2 H*, Calcium 9.5, C-React Prot Ext Range < 2.90 06/26/23 18:32: Lactic Acid 1.1 06/27/23 04:05: WBC 6.7, RBC 3.39 L, Hgb 10.3 L, Hct 32.1 L, MCV 94.7 H, MCH 30.4, MCHC 32.1, RDW Std Deviation 49.0 H, RDW Coeff of Loretta 14.1, Plt Count 158,MPV 12.2 H, Immature Gran % (Auto) 0.400, Neut % (Auto) 74.4 H, Lymph % (Auto) 13.7 L, Blount % (Auto) 11.3 H, Eos % (Auto) 0.1, Baso % (Auto) 0.1, Absolute Neuts (auto) 5.0, Absolute Lymphs (auto) 0.92, Nucleated RBC % 0, Sodium 138, Potassium 3.9, Chloride 104, Carbon Dioxide 28.0, Anion Gap 6, BUN 12, Creatinine 1.12, Estim Creat Clear Calc 71.47, Est GFR (MDRD) Af Amer 84, Est GFR (MDRD) Non-Af 69, BUN/Creatinine Ratio 10.7, Glucose 82, Hemoglobin A1c 4.6,Calcium 8.3 L, Total Bilirubin 0.70, AST 17, ALT 15 L, Alkaline Phosphatase 61, Total Protein 5.6 L, Albumin 2.9 L, Globulin 2.7, Albumin/Globulin Ratio 1.1, Triglycerides 28, Cholesterol 92, LDL Cholesterol 34, VLDL Cholesterol 6, HDL Cholesterol 52 Radiography Diagnostic Testing: Radiology Impression Toe X-Ray 06/26/23 14:34 IMPRESSION: Erosive changes are seen in the distal portion of the distal pharynx of the great toe suggestive of osteomyelitis. Soft tissue swelling. Electronically Signed: Jose Alberto Wing MD at 15:01 EST , Physical Exam Const alert, oriented x3 and no apparent distress General Appearance: cooperative HEENT normocephalic Eyes Eyes Narrative: Wears glasses General Eye: normal appearance of both eyes Neck General: normal visual inspection Lymph Lymphatic: no lymphadenopathy noted and no lymphedema noted Resp normal respiratory effort Cardio regular rate and regular rhythm Extremity normal capillary refill, no joint enlargement, no calf tenderness and no pedal edema Extremity Narrative: DP and PT pulses palpable bilateral. CFT less than 3 seconds to digits bilateral. Bilateral proximal lower extremity and pedal edema noted. Dermatological: There is localized rubor about the distal left hallux without increased temperature versus surrounding digits, this is improving on antibiotics. There is various points of resolving ecchymosis to the distal hallux with skin peeling. Left hallux nail is thickened and incurvated with lateral border nail spicule present with pain to palpation of site. There is a skin fold covering the nail spicule consistent with ingrown toenail. No purulent drainage, no malodor, no palpable fluctuance/bogginess noted, no visible abscess formation, no lymphangitic streaking. Musculoskeletal: Muscle strength 5 of 5 age-appropriate. There is decreased range of motion of of the ankle joint with the knee extended without pain or crepitus. Full, smooth, pain-free range of motion of the subtalar joint, midtarsal joint, and first metatarsophalangeal joint. There is some pain to palpation at the distal lateral border of the left hallux at the site of ingrowntoenail. Skin no rashes or lesions noted, skin turgor normal and no jaundice Neuro moves all extremities Assessment & Plan Assessment/Plan (1) IGTN (ingrowing toe nail): (2) Cellulitis of left toe: (3) Chronic pain of toe of left foot: (4) PAD (peripheral artery disease): (5) Venous insufficiency: (6) Anticoagulant long-term use: (7) HTN (hypertension): QUALIFIERS: Hypertension type: essential hypertension Qualified Code(s): I10 - Essential (primary) hypertension PLAN: Plan Patient seen and evaluated I examined the left hallux which does demonstrate nail spicule present with localized rubor without purulent drainage. Labial tissue of the lateral border of the left hallux nail does overgrow causing embedding of nail spicule with pain to palpation at the distal lateral border. WBC. currently 6.4, decreased from 11.1, ESR 6, CRP < 2.90. Currently on IV Unasyn and vancomycin Radiographs reviewed demonstrating some erosive changes of the distal phalanx ofthe left hallux suggestive of osteomyelitis. I have independently reviewed these radiographic images and do feel these are erosive changes however highly suspect of pressure changes secondary to hammertoe type deformity of the left hallux. Given review of diagnostic data, radiographic imaging, and physical exam findings, I do not feel patient has acute osteomyelitis of the distal phalanx. No dressings applied to digit at this time. I discussed all options with the patient this evening consisting of slant back procedure to remove offending nail border vs temporary nail avulsion of the lateral border vs matrixectomy on the lateral border of the left hallux nail. Patient elects to undergo slant back avulsion of the offending nail border at this time. States that he will consider matrixectomy as outpatient in office setting. Following verbal permission a slant back nail avulsion of the lateral border of the left hallux nail was performed without use of local anesthetic to patient tolerance. Offending border was removed with presence of nail spicule which wasembedded in the distal aspect of the labial tissue along the nail groove secondary to severe incurvation of nail. Following removal of the offending nail border patient did have immediate relief of pain. Site was inspected with no evidence of remaining spicules present. There is no evidence of ulceration or other wounds along the labial tissue or nail groove or at the distal portion of the left hallux. Dry sterile dressing was applied to the digit. Given history of peripheral vascular disease will obtain LEAS for further evaluation of healing potential in preparation for matrixectomy of the lateral border of the left hallux. Medicine team currently following for medical management, they are appreciated. Offending nail border of the ingrown toenail has been removed and patient will continue to follow with Dr. Junior in office to undergo matrixectomy of the offending nail border of the left hallux to discourage recidivism of his chronicingrown toenail secondary to severe incurvation of the nail. At this time patient is stable with offending nail border removed and may be discharged home. He will be placed on 5-day oral Augmentin per ID recommendation and will follow-up in office with Dr. Junior. Podiatry to sign off Erick Lorenzo Jr. D.P.M. [facility] [phone] 06/27/23 1432 <Electronically signed by Erick Lorenzo DPAlfredo> Erick Hogan Signature (if applicable): CC: ~ Signed [facility] Work Phone: 1(218) 285-640301-12-2024 Consult note Author Sera Mcdermott [facility] June 27, 2023 1:20pm Note Date/Time June 27, 2023 1 :20pm [facility] Medical Records Department [address] [place] [address] Consultation - Infectious Dx 06/27/23 1317 MR#: [id number] Acct: [id number] Name: RAMÓN THOMAS Rep #:[id number] : 1955 67 From: Sera lazaro MD PCP: Dr. Jay Easton, DO Status:ADM [place] [facility] [id number] Assessment & Plan Assessment/Plan (1) IGTN (ingrowing toe nail): (2) Cellulitis of left toe: PLAN: Toenail removed this AM by Dr. Lorenzo. ESR and CRP normal. Low suspicion for actual osteo. Ok for home with 5 days augmentin. Will follow as needed, thank you HPI Consult Data Date of Consult: 06/27/23 HPI Narrative Reason for Consultation: osteo HPI Narrative: RAMÓN THOMAS, is a 67 M with h/o PAD, htn, presented with 1-2 months of L 1st toe mild soreness, redness. No fever, no drainage, no recent abx. Follows withDr. Junior. Came to ED. Pain worse with walking. Xray with ? osteo, admittedon vanc/zosyn. Podiatry removed ingrown toenail this AM. Full ROS performed and neg except as noted above. [facility] Medical History (HFpEF) heart failure with preserved ejection fraction Arthritis of left hip Asthma Atrial fibrillation BiPAP (biphasic positive airway pressure) dependence Bone lesion Chronic anemia Chronic pain CKD (chronic kidney disease), stage II COPD (chronic obstructive pulmonary disease) Hyperlipidemia Hyperparathyroidism Hypothyroidism Idiopathic hypertrophic subaortic stenosis Lesion of lumbar spine Lumbar degenerative disc disease Lumbar facet arthropathy Lumbar radiculopathy Nephrolithiasis Nonrheumatic mitral valve regurgitation Observed sleep apnea Peripheral neuropathy Permanent atrial fibrillation Restrictive lung disease Sleep apnea Home Medications spironolactone 25 mg tablet 25 mg PO BID diuretic 10/23/13 [History Last Taken 11/15/17] levothyroxine 125 mcg tablet 125 mcg PO DAILY thyroid 11/16/17 [History Last Taken 05/21/18 09:30 125 MCG] albuterol sulfate 90 mcg/actuation aerosol inhaler 2 puff inhalation Q4H PRN shortness of breath or wheezing 10/24/22 [History Last Taken Unknown] calcitriol 0.25 mcg capsule 0.25 mcg PO DAILY 10/24/22 [History Last Taken Unknown] calcium gluconate 60 mg calcium (650 mg) tablet 60 mg PO DAILY 10/24/22 [History Last Taken Unknown] cyanocobalamin (vitamin B-12) 1,000 mcg tablet 1,000 mcg PO DAILY 10/24/22 [History Last Taken Unknown] lidocaine HCl 4 % topical cream (Aspercreme (lidocaine HCl)) 1 applic topical TID PRN pain 10/24/22 [History Last Taken Unknown] magnesium oxide 400 mg (241.3 mg magnesium) tablet 400 mg PO DAILY 10/24/22 [History Last Taken Unknown] metoprolol tartrate 100 mg tablet 50 mg PO BID 10/24/22 [History Last Taken Unknown] potassium chloride 10 mEq tablet,extended release 20 meq PO DAILY 10/24/22 [History Last Taken Unknown] rivaroxaban 20 mg tablet (Xarelto) 20 mg PO DAILY 10/24/22 [History Last Taken Unknown] ibandronate 150 mg tablet 150 mg PO QMONTH 11/12/22 [History Last Taken Unknown] diltiazem HCl 120 mg capsule,extended release 24 hr 120 mg PO DAILY 06/26/23 [History Last Taken Unknown] trazodone 100 mg tablet 100 mg PO QHS 06/26/23 [History Last Taken Unknown] amoxicillin 875 mg-potassium clavulanate 125 mg tablet 1 tab PO BID #10 tabs 06/27/23 [Rx Last Taken Unknown] Allergy/AdvReac Type Severity Reaction Status Date / Time Tetracyclines Allergy Swelling Verified 06/26/23 12:59 Family History (Updated 06/26/23 @ 16:[address] Crystal Emerson MD) Father Myocardial infarction CAD (coronary artery disease) Heart disease Hypertension Mother Hypertension Diabetes Surgical History History of lung surgery History of surgery on lower extremity History of transesophageal echocardiography (JAMEE) Hx of cardiovascular stress test Hx of echocardiogram Hx of tonsillectomy Social History (Updated 06/26/23 @ 16:[address] Crystal Emerson MD) household members: none current occupational status: retired Smoking Status: Never smoker alcohol intake: never substance use type: does not use caffeine: Yes Type: carbonated beverages Physical Exam Const alert, oriented x3 and no apparent distress General Appearance: cooperative HEENT normocephalic and head/scalp atraumatic Eyes PERRL and EOMs intact bilaterally Neck supple and No nodes Resp normal air movement and clear to auscultation bilaterally Cardio regular rate and regular rhythm GI soft to palpation, non-tender and non-distended Extremity General Extremity: edema Skin Skin Narrative: L 1st toe with mild swelling, redness. Neuro CN's II-XII intact bilaterally Lab / Micro Data Attestation: I reviewed the patient's lab results. 06/27/23 04:05 06/27/23 04:05 Labs: Laboratory Results - last 24 hr 06/26/23 14:00: WBC 11.1 H, RBC 4.01 L, Hgb 12.2 L, Hct 37.4 L, MCV 93.3, MCH 30.4, MCHC 32.6, RDW Std Deviation 48.0 H, RDW Coeff of Loretta 13.9, Plt Count 207,MPV 11.6, Immature Gran % (Auto) 0.600, Neut % (Auto) 84.3 H, Lymph % (Auto) 6.0L, Blount % (Auto) 8.9, Eos % (Auto) 0.1, Baso % (Auto) 0.1, Absolute Neuts (auto)9.4 H, Absolute Lymphs (auto) 0.67 L, Nucleated RBC % 0, ESR 6, Sodium 136, Potassium 3.9, Chloride 100, Carbon Dioxide 29.0, Anion Gap 7, BUN 16, Creatinine 1.39 H, Est GFR (MDRD) Af Amer 65, Est GFR (MDRD) Non-Af 54 L, BUN/Creatinine Ratio 11.5, Glucose 94, Lactic Acid 2.2 H*, Calcium 9.5, C-React Prot Ext Range < 2.90 06/26/23 18:32: Lactic Acid 1.1 06/27/23 04:05: WBC 6.7, RBC 3.39 L, Hgb 10.3 L, Hct 32.1 L, MCV 94.7 H, MCH 30.4, MCHC 32.1, RDW Std Deviation 49.0 H, RDW Coeff of Loretta 14.1, Plt Count 158,MPV 12.2 H, Immature Gran % (Auto) 0.400, Neut % (Auto) 74.4 H, Lymph % (Auto) 13.7 L, Blount % (Auto) 11.3 H, Eos % (Auto) 0.1, Baso % (Auto) 0.1, Absolute Neuts (auto) 5.0, Absolute Lymphs (auto) 0.92, Nucleated RBC % 0, Sodium 138, Potassium 3.9, Chloride 104, Carbon Dioxide 28.0, Anion Gap 6, BUN 12, Creatinine 1.12, Estim Creat Clear Calc 71.47, Est GFR (MDRD) Af Amer 84, Est GFR (MDRD) Non-Af 69, BUN/Creatinine Ratio 10.7, Glucose 82, Hemoglobin A1c 4.6,Calcium 8.3 L, Total Bilirubin 0.70, AST 17, ALT 15 L, Alkaline Phosphatase 61, Total Protein 5.6 L, Albumin 2.9 L, Globulin 2.7, Albumin/Globulin Ratio 1.1, Triglycerides 28, Cholesterol 92, LDL Cholesterol 34, VLDL Cholesterol 6, HDL Cholesterol 52 Imagaing Radiology Impression Toe X-Ray 06/26/23 14:34 IMPRESSION: Erosive changes are seen in the distal portion of the distal pharynx of the great toe suggestive of osteomyelitis. Soft tissue swelling. Electronically Signed: Jose Alberto Wing MD at 15:01 EST , 06/27/23 1320 <Electronically signed by Sera Mcdermott MD> Cosigner Signature (if applicable): CC: MANASA Lorenzo; Dr. Crystal Emerson MD; Dr. Jay Easton DO; Dr. Sera Mcdermott MD~ Signed [facility] Work Phone: 1(702) 469-383901-12-2024 Discharge summary Author Michael [facility] June 27, 2023 10:02am Note Date/Time June 26, 2023 2 :44pm [facility] Medical Records Department [address] [place] [address] Emergency Department Summary 06/26/23 MR#: [id number] Acct: [id number] Name: RAMÓN THOMAS Rep #:[id number] : 1955 67 From: Michael Christy MD PCP: Dr. Jay Easton DO Status:ADM IN Location: [place] [id number] HPI History of Present Illness Chief Complaint: Wound Detail of Chief Complaint: Because of wound left great toe and osteomyelitis of great toe Informant: patient Occured/Mechanism Comment: Patient had x-rays yesterday at outside facility that were reportedly revealed osteomyelitis. Patient does not know which bones. Onset/Context/Timing Onset: - (Unknown) Context: - (Unknown) Quality of Pain: - (Pain left great toe) Location: Left great toe Current Severity: Mild Maximum Severity: Moderate Worsened by: Palpation Relieved by: Nothing Associated Symptoms Associated Symptoms: Positive for - (Bilateral lymphedema on loop diuretic and potassium sparing diuretic); Negative for Parasthesia, Weakness or Loss of Funtion Narrative Narrative: Patient is a 67-year-old male with history of hypothyroidism, hyper tension, lymphedema and is on long-term anticoagulant. Uncertain why he is on the medical terminologist anticoagulant. Tetanus Immunization: Unknown Prior similar symptoms: No Recent Illness/Hospitalization: Yes PFSH [facility] Medical History (Updated 06/26/23 @ 18:[address] Erick Lorenzo, DPM) (HFpEF) heart failure with preserved ejection fraction Arthritis of left hip Asthma Atrial fibrillation BiPAP (biphasic positive airway pressure) dependence Bone lesion Chronic anemia Chronic pain CKD (chronic kidney disease), stage II COPD (chronic obstructive pulmonary disease) Hyperlipidemia Hyperparathyroidism Hypothyroidism Idiopathic hypertrophic subaortic stenosis Lesion of lumbar spine Lumbar degenerative disc disease Lumbar facet arthropathy Lumbar radiculopathy Nephrolithiasis Nonrheumatic mitral valve regurgitation Observed sleep apnea Peripheral neuropathy Permanent atrial fibrillation Restrictive lung disease Sleep apnea Home Medications spironolactone 25 mg tablet 25 mg PO BID diuretic 10/23/13 [History Last Taken 11/15/17] levothyroxine 125 mcg tablet 125 mcg PO DAILY thyroid 11/16/17 [History Last Taken 05/21/18 09:30 125 MCG] albuterol sulfate 90 mcg/actuation aerosol inhaler 2 puff inhalation Q4H PRN shortness of breath or wheezing 10/24/22 [History Last Taken Unknown] calcitriol 0.25 mcg capsule 0.25 mcg PO DAILY 10/24/22 [History Last Taken Unknown] calcium gluconate 60 mg calcium (650 mg) tablet 60 mg PO DAILY 10/24/22 [History Last Taken Unknown] cyanocobalamin (vitamin B-12) 1,000 mcg tablet 1,000 mcg PO DAILY 10/24/22 [History Last Taken Unknown] lidocaine HCl 4 % topical cream (Aspercreme (lidocaine HCl)) 1 applic topical TID PRN pain 10/24/22 [History Last Taken Unknown] magnesium oxide 400 mg (241.3 mg magnesium) tablet 400 mg PO DAILY 10/24/22 [History Last Taken Unknown] metoprolol tartrate 100 mg tablet 50 mg PO BID 10/24/22 [History Last Taken Unknown] potassium chloride 10 mEq tablet,extended release 20 meq PO DAILY 10/24/22 [History Last Taken Unknown] rivaroxaban 20 mg tablet (Xarelto) 20 mg PO DAILY 10/24/22 [History Last Taken Unknown] ibandronate 150 mg tablet 150 mg PO QMONTH 11/12/22 [History Last Taken Unknown] diltiazem HCl 120 mg capsule,extended release 24 hr 120 mg PO DAILY 06/26/23 [History Last Taken Unknown] trazodone 100 mg tablet 100 mg PO QHS 06/26/23 [History Last Taken Unknown] Allergy/AdvReac Type Severity Reaction Status Date / Time Tetracyclines Allergy Swelling Verified 06/26/23 12:59 Family History (Updated 06/26/23 @ 16:[address] Crystal Emerson MD) Father Myocardial infarction CAD (coronary artery disease) Heart disease Hypertension Mother Hypertension Diabetes Surgical History History of lung surgery History of surgery on lower extremity History of transesophageal echocardiography (JAMEE) Hx of cardiovascular stress test Hx of echocardiogram Hx of tonsillectomy Social History (Updated 06/26/23 @ 16:[address] Crystal Emerson MD) household members: none current occupational status: retired Smoking Status: Never smoker alcohol intake: never substance use type: does not use caffeine: Yes Type: carbonated beverages ROS ROS ED Constitutional Constitutional ED: Denies chills, fever(s), subjective, sweats or weight loss Eyes Eyes: Denies blurry vision, change in vision or diplopia ENT ENT ED: Denies ear pain, rhinorrhea or sore throat Cardiovascular Cardiovascular: Denies chest pain, orthopnea, palpitations, paroxysmal nocturnaldyspnea or racing heartbeat Respiratory/Chest Respiratory/Chest: Denies cough, dyspnea, dyspnea on exertion, orthopnea or paroxysmal nocturnal dyspnea Gastrointestinal Gastrointestinal: Denies abdominal pain, nausea or vomiting Genitourinary Genitourinary ED: Denies dysuria, hematuria or urinary frequency Musculoskeletal Musculoskeletal: Denies arthralgias, back pain, myalgias or neck pain Integumentary Reports rash Neurologic Neurologic: Reports weakness Hematologic/Lymphatic Hematologic/Lymphatic: Reports easy bruising EXAM Physical Exam Const Vital Signs: 06/26/23 12:58 06/26/23 14:35 Temperature 97.4 F L 98.7 F Temperature Source Temporal Oral Pulse Rate 98 99 Respiratory Rate 16 18 Blood Pressure 132/106 H 122/69 H Blood Pressure Mean 114 86 Pulse Ox 96 96 Oxygen Delivery Method Room Air Room Air Positive well nourished, well developed, obese and unkempt General Appearance ED: unkempt and well developed Nutritional Appearance: obese HEENT HEENT Narrative: Head is atraumatic and normocephalic. Ears normal. Nares patent. Posterior pharynx is normal. Eyes PERRL Eyes Narrative: Extraocular muscles are intact. Sclera is anicteric. Conjunctive is inked. Neck full ROM and supple Chest Wall inspection of chest normal and palpation of chest normal Resp normal respiratory effort, no retractions and clear to auscultation bilaterally Cardio regular rate, regular rhythm, S1 normal heart sound, S2 normal heart sound and no murmurs GI non-tender, non-distended and no masses Auscultation: hypoactive bowel sounds Palpation: soft Extremity Negative for normal to inspection Extremity Narrative: Has bilateral lymphedema greater left. There is dermatologic changes consistentwith venous stasis dermatitis. Patient has 2 abrasions. There is no evidence infection of the abrasions of the distal left leg. Patient does have stigmata of peripheral arterial disease with absent hair on his toes. DP pulse is diminished. Capillary refill is 2 to 3 seconds. He does have slight thickeningof his toenails. Patient has dried blood on all of his toes. He states the blood is from a lesion on his left great toe. There is slight erythema of the left great toe. There is no induration or warmth. There is no lymphangitis. There is no popliteal or inguinal lymphadenopathy. General Extremety ED: Yes edema General Extremity: edema Neuro oriented x3 and CN's II-XII intact bilaterally Psych mental status grossly normal Appearance: unkempt Skin No no wounds Skin Narrative: And has multiple bruises. He is on Xarelto. Rashes: no rashes Sepsis Attestation Date exam was performed: 06/26/23 Time exam was performed: 14:30 Possible Source of Sepsis: Bone/joint Sepsis Organ Dysfunction Criteria Present: Lactic Acid > 2 mmol/L Fluid Resuscitation Reason for lesser fluid bolus:: Other (Since patient is not hypotensive and lactate is not greater than 4 fluid bolus is not indicated.) MDM MDM MDM Narrative Medical decision making narrative: Since there is concern for osteomyelitis imaging was repeated since access is not available for review and interpretation has not been released. Will obtain CBC, basic metabolic panel as well as CRP and sed rate. Patient has seen Dr. Kevin Junior, diagnostic sales specialist. He has been paged. Lab Data Attestation: I reviewed the patient's lab results. Lab results narrative: Count is slightly elevated with shift. There is no bandemia. Basic metabolic panel is remarked for an elevated creatinine of 1.39 with an estimated GFR of 54. Lactate is elevated 2.2. Since lactate is elevated we will get blood cultures prior to administration of antibiotics. Since patient is not diabetic he was treated with Unasyn and vancomycin. Labs: Laboratory Results - last 24 hr 06/26/23 14:00 WBC 11.1 H RBC 4.01 L Hgb 12.2 L Hct 37.4 L MCV 93.3 MCH 30.4 MCHC 32.6 RDW Std Deviation 48.0 H RDW Coeff of Loretta 13.9 Plt Count 207 MPV 11.6 Immature Gran % (Auto) 0.600 Neut % (Auto) 84.3 H Lymph % (Auto) 6.0 L Blount % (Auto) 8.9 Eos % (Auto) 0.1 Baso % (Auto) 0.1 Absolute Neuts (auto) 9.4 H Absolute Lymphs (auto) 0.67 L Nucleated RBC % 0 ESR 6 Sodium 136 Potassium 3.9 Chloride 100 Carbon Dioxide 29.0 Anion Gap 7 BUN 16 Creatinine 1.39 H Est GFR (MDRD) Af Amer 65 Est GFR (MDRD) Non-Af 54 L BUN/Creatinine Ratio 11.5 Glucose 94 Lactic Acid 2.2 H* Calcium 9.5 C-React Prot Ext Range < 2.90 Radiography Chest X-Ray - ED: Read by ED Physician (X-ray of the left great toe reveals evidence of osteomyelitis with destruction of the distal aspect of the distal phalanx of the left great toe. This is seen best on the oblique view. Independent reviewed interpreted by me at 1451) Diagnostic Testing: Clinical Impression(s) from Imaging Studies Toe X-Ray 06/26/23 14:34 IMPRESSION: Erosive changes are seen in the distal portion of the distal pharynx of the great toe suggestive of osteomyelitis. Soft tissue swelling. Electronically Signed: Jose Alberto Wing MD at 15:01 EST , Management Discussion w/another healthcare provider: Hospitalist and [employer] St[employer]utter (Podiatry) Discharge Plan Dx/Rx/DC Orders Clinical Impression: Creatinine elevation, Osteomyelitis of great toe of left foot, PAD (peripheral artery disease), Acidosis, lactic, Anticoagulant long-term use, Venous insufficiency, Anemia in chronic illness, Leukocytosis Disposition Disposition: Acute Care Hospital [facility] Discharge Date/Time: 06/26/23 16:31 What to do if you have Problems For any increased pain, shortness of breath, bleeding, nausea or vomiting, chestpain, or any unexpected problems, contact your Primary Care Provider. Call [facility] ([phone]) or report to the closest Emergency Room. Call 911 if necessary. 06/27/23 1002 <Electronically signed by Michael Christy MD> Cosigner Signature (if applicable): CC: Dr. Jay Easton, DO ~ Signed [facility] Work Phone: [phone]) 490-750301-11-2024 Consult note Author Crystal Emerson [facility] June 26, 2023 7:36pm Note Date/Time June 26, 2023 5 :57pm [facility] Medical Records Department [address] [facility] [place] [place] [address] Pharmacokinetic/Renal -Consult 06/26/23 1757 MR#: [id number] Acct: [id number] Name: RAMÓN THOMAS Rep #:[id number] : 1955 67 From: Walter Kenyon PCP: Dr. Jay Easton, Status:ADM IN Y Location: [place] [id number] Consult Antibiotic Management Pharmacy has been consulted to manage selected antibiotic: Vancomycin Type of Intervention Type of Consult: New start Suspected Infection Suspected Infection: Osteomyelitis Prior Doses of Antibiotics Prior Doses of Antibiotics Received/Current Regimen: Vancomycin 2000 mg IV given 06/26 @ 1620 Labs Labs: Sodium 136 mmol/L (136-145) 06/26/23 14:00 Potassium 3.9 mmol/L (3.5-5.1) 06/26/23 14:00 Chloride 100 mmol/L (98-107) 06/26/23 14:00 Carbon Dioxide 29.0 mmol/L (21.0-32.0) 06/26/23 14:00 Anion Gap 7 (5-15) 06/26/23 14:00 BUN 16 mg/dL (7-18) 06/26/23 14:00 Creatinine 1.39 mg/dL (0.70-1.30) H 06/26/23 14:00 Est GFR (MDRD) Af Amer 65 mL/min (>60) 06/26/23 14:00 Est GFR (MDRD) Non-Af 54 mL/min (>60) L 06/26/23 14:00 BUN/Creatinine Ratio 11.5 RATIO (10-20) 06/26/23 14:00 Glucose 94 mg/dL (74-106) 06/26/23 14:00 Dosing Weight Weight used for dosin.5 kg Estimated Creatinine Clearance Estimated Creatinine Clearance: ~57 Goal Trough Goal Trough: 15-20 mcg/mL Pharmacy Plan for Drug Dosing Pharmacy Plan for Drug Dosing: Vancomycin 2000 mg IV x1 followed by 1000 mg Q12H based on weight and renal function Pharmacy Service will continue to monitor and adjust dosing as required. Follow-Up Labs Follow-Up Labs: Trough: Vancomycin Date/Time Labs Ordered Labs to be done on [date and time ordered]: 06/28/23 @ 0430 06/26/23 2358 <Electronically signed by Walter lazaro> Date _ Walter Kenyon 06/26/23 1936 <Electronically signed by Crystal sue MD> Cosigner Signature (if applicable): Date Crystal Emerson MD CC: ~ Signed [facility] Work Phone: 1([phone]) 171-970501-11-2024 Consult note Author Erick Lorenzo [facility] June 26, 2023 6:54pm Note Date/Time June 26, 2023 6 :15pm [facility] Medical Records Department [address] [place] [address] Consultation 06/26/23 1813 MR#: [id number] Acct: [id number] Name: RAMÓN THOMAS Rep #:[id number] : 1955 67 From: Erick lynn DPM PCP: Dr. Jay Easton, DO Status:ADM IN Location: ID3 [id number] Assessment & Plan Assessment/Plan (1) IGTN (ingrowing toe nail): (2) Cellulitis of left toe: (3) Chronic pain of toe of left foot: (4) PAD (peripheral artery disease): (5) Venous insufficiency: (6) Anticoagulant long-term use: (7) HTN (hypertension): QUALIFIERS: Hypertension type: essential hypertension Qualified Code(s): I10 - Essential (primary) hypertension PLAN: Plan Patient seen and evaluated I examined the left hallux which does demonstrate nail spicule present with localized rubor without purulent drainage. Labial tissue of the lateral border of the left hallux nail does overgrow causing embedding of nail spicule with pain to palpation at the distal lateral border. WBC. 11.1, ESR 6, CRP < 2.90. Currently on IV Unasyn and vancomycin Radiographs reviewed demonstrating some erosive changes of the distal phalanx ofthe left hallux suggestive of osteomyelitis. I have independently reviewed these radiographic images and do feel these are erosive changes however highly suspect of pressure changes secondary to hammertoe type deformity of the left hallux. Given review of diagnostic data, radiographic imaging, and physical exam findings, I do not feel patient has acute osteomyelitis of the distal phalanx. No dressings applied to digit at this time. I discussed all options with the patient this evening consisting of slant back procedure to remove offending nail border vs temporary nail avulsion of the lateral border vs matrixectomy on the lateral border of the left hallux nail. Discussed with patient that I will return with a nail nipper to remove the offending nail border tomorrow. And we will continue to monitor. Patient is inagreement with this plan. Given history of peripheral vascular disease will obtain LEAS for further evaluation of healing potential in preparation for matrixectomy of the lateral border of the left hallux. Medicine team currently following for medical management, they are appreciated. At this time plan is to remove the offending border of the ingrown toenail and would recommend patient receive matrixectomy of the offending nail border in outpatient setting. Podiatry will continue to follow. Erick Lorenzo Jr. D.P.M. [facility] [phone] HPI Consult Data Date of Consult: 06/26/23 HPI Narrative Reason for Consultation: Cellulitis left hallux HPI Narrative: RAMÓN THOMAS, is a 67 M with PMHx of chronic peripheral neuropathy, CKD stage II, COPD, HTN, HLD, HFpEF, hypothyroidism, bilateral lower extremity chronic lymphedema, chronic anemia, obesity, and PVD. He presents to [facility] on 04/16/2024 with complaint of left hallux pain and redness about the nail and distal hallux. He reports seeing PCP for left great toe wound and had radiographs obtained by physician at [facility] demonstrating evidence of osteomyelitis and was referred to the ED. He states that he did see Dr. Junior a few weeks ago for a nail debridement and now has some pain to the lateral aspect of the hallux nail border with an irregular skin fold and localized redness of the distal hallux. He denies any specific pain at rest to the left hallux however does note that if pressed upon or walking in shoe gear toe does get sore. Workup in ED was performed with plain film radiograph demonstrating erosive bone changes of the distal portion of the left hallux suggestive of osteomyelitis with some soft tissue swelling. WBC 11.1, ESR 6, CRP < 2.90, BP 122/69, respiratory rate 18, O2 sat 96% on room air. He was empirically startedon Unasyn and vancomycin. He was consulted to podiatry for further evaluation and workup for suspected osteomyelitis. [facility] Medical History (Updated 06/26/23 @ 18:[address] Erick Lorenzo, DPAlfredo) (HFpEF) heart failure with preserved ejection fraction Arthritis of left hip Asthma Atrial fibrillation BiPAP (biphasic positive airway pressure) dependence Bone lesion Chronic anemia Chronic pain CKD (chronic kidney disease), stage II COPD (chronic obstructive pulmonary disease) Hyperlipidemia Hyperparathyroidism Hypothyroidism Idiopathic hypertrophic subaortic stenosis Lesion of lumbar spine Lumbar degenerative disc disease Lumbar facet arthropathy Lumbar radiculopathy Nephrolithiasis Nonrheumatic mitral valve regurgitation Observed sleep apnea Peripheral neuropathy Permanent atrial fibrillation Restrictive lung disease Sleep apnea Home Medications spironolactone 25 mg tablet 25 mg PO BID diuretic 10/23/13 [History Last Taken 11/15/17] levothyroxine 125 mcg tablet 125 mcg PO DAILY thyroid 11/16/17 [History Last Taken 05/21/18 09:30 125 MCG] albuterol sulfate 90 mcg/actuation aerosol inhaler 2 puff inhalation Q4H PRN shortness of breath or wheezing 10/24/22 [History Last Taken Unknown] calcitriol 0.25 mcg capsule 0.25 mcg PO DAILY 10/24/22 [History Last Taken Unknown] calcium gluconate 60 mg calcium (650 mg) tablet 60 mg PO DAILY 10/24/22 [History Last Taken Unknown] cyanocobalamin (vitamin B-12) 1,000 mcg tablet 1,000 mcg PO DAILY 10/24/22 [History Last Taken Unknown] lidocaine HCl 4 % topical cream (Aspercreme (lidocaine HCl)) 1 applic topical TID PRN pain 10/24/22 [History Last Taken Unknown] magnesium oxide 400 mg (241.3 mg magnesium) tablet 400 mg PO DAILY 10/24/22 [History Last Taken Unknown] metoprolol tartrate 100 mg tablet 50 mg PO BID 10/24/22 [History Last Taken Unknown] potassium chloride 10 mEq tablet,extended release 20 meq PO DAILY 10/24/22 [History Last Taken Unknown] rivaroxaban 20 mg tablet (Xarelto) 20 mg PO DAILY 10/24/22 [History Last Taken Unknown] ibandronate 150 mg tablet 150 mg PO QMONTH 11/12/22 [History Last Taken Unknown] diltiazem HCl 120 mg capsule,extended release 24 hr 120 mg PO DAILY 06/26/23 [History Last Taken Unknown] trazodone 100 mg tablet 100 mg PO QHS 06/26/23 [History Last Taken Unknown] Allergy/AdvReac Type Severity Reaction Status Date / Time Tetracyclines Allergy Swelling Verified 06/26/23 12:59 Family History (Updated 06/26/23 @ 16:[address] Crystal Emerson MD) Father Myocardial infarction CAD (coronary artery disease) Heart disease Hypertension Mother Hypertension Diabetes Surgical History History of lung surgery History of surgery on lower extremity History of transesophageal echocardiography (JAMEE) Hx of cardiovascular stress test Hx of echocardiogram Hx of tonsillectomy Social History (Updated 06/26/23 @ 16:[address] Crystal Emerson MD) household members: none current occupational status: retired Smoking Status: Never smoker alcohol intake: never substance use type: does not use caffeine: Yes Type: carbonated beverages ROS Constitutional Constitutional: Denies body ache(s), chills, fatigue or fever(s) Eyes Eyes: Denies diplopia, eye pain or loss of vision ENT HEENT: Denies dysphagia, nasal congestion, nasal discharge or sore throat Cardiovascular Cardiovascular: Denies chest pain, cold extremities or palpitations Respiratory/Chest Respiratory/Chest: Denies chest congestion, cough, dyspnea or wheezing Gastrointestinal Gastrointestinal: Denies abdominal pain, constipation, diarrhea, nausea or vomiting Genitourinary Genitourinary: Denies dysuria, hematuria, urinary frequency, urinary hesitancy, urinary incontinence or urinary urgency Musculoskeletal Musculoskeletal: Denies joint pain, joint stiffness or joint swelling Integumentary Integumentary: Denies jaundice, lesions, pruritus or rash Neurologic Neurologic: Denies dizziness, numbness or seizures Psychiatric Psychiatric: Denies anxiety or depression Endocrine Endocrinology: Denies cold intolerance, heat intolerance, polydipsia or polyuria Hematologic/Lymphatic Hematologic/Lymphatic: Reports anemia, easy bleeding and easy bruising Allergic/Immunologic Allergic/Immunologic: Denies rhinitis, hives, urticaria or wheezing Physical Exam Const alert, oriented x3 and no apparent distress General Appearance: cooperative HEENT normocephalic Eyes Eyes Narrative: Wears glasses General Eye: normal appearance of both eyes Neck General: normal visual inspection Lymph Lymphatic: no lymphadenopathy noted and no lymphedema noted Resp normal respiratory effort Cardio regular rate and regular rhythm Extremity normal capillary refill, no joint enlargement, no calf tenderness and no pedal edema Extremity Narrative: DP and PT pulses palpable bilateral. CFT less than 3 seconds to digits bilateral. Bilateral proximal lower extremity and pedal edema noted. Dermatological: There is localized rubor about the distal left hallux without increased temperature versus surrounding digits. There is various points of resolving ecchymosis to the distal hallux with skin peeling. Left hallux nail is thickened and incurvated with lateral border nail spicule present with pain to palpation of site. There is a skin fold covering the nail spicule consistentwith ingrown toenail. No purulent drainage, no malodor, no palpable fluctuance/bogginess noted, no visible abscess formation, no lymphangitic streaking. Musculoskeletal: Muscle strength 5 of 5 age-appropriate. There is decreased range of motion of of the ankle joint with the knee extended without pain or crepitus. Full, smooth, pain-free range of motion of the subtalar joint, midtarsal joint, and first metatarsophalangeal joint. There is some pain to palpation at the distal lateral border of the left hallux at the site of ingrowntoenail. Skin no rashes or lesions noted, skin turgor normal and no jaundice Neuro moves all extremities Lab / Micro Data 06/26/23 14:00 06/26/23 14:00 Labs: Laboratory Results - last 24 hr 06/26/23 14:00: WBC 11.1 H, RBC 4.01 L, Hgb 12.2 L, Hct 37.4 L, MCV 93.3, MCH 30.4, MCHC 32.6, RDW Std Deviation 48.0 H, RDW Coeff of Loretta 13.9, Plt Count 207,MPV 11.6, Immature Gran % (Auto) 0.600, Neut % (Auto) 84.3 H, Lymph % (Auto) 6.0L, Blount % (Auto) 8.9, Eos % (Auto) 0.1, Baso % (Auto) 0.1, Absolute Neuts (auto)9.4 H, Absolute Lymphs (auto) 0.67 L, Nucleated RBC % 0, ESR 6, Sodium 136, Potassium 3.9, Chloride 100, Carbon Dioxide 29.0, Anion Gap 7, BUN 16, Creatinine 1.39 H, Est GFR (MDRD) Af Amer 65, Est GFR (MDRD) Non-Af 54 L, BUN/Creatinine Ratio 11.5, Glucose 94, Lactic Acid 2.2 H*, Calcium 9.5, C-React Prot Ext Range < 2.90 Imagaing Radiology Impression Toe X-Ray 06/26/23 14:34 IMPRESSION: Erosive changes are seen in the distal portion of the distal pharynx of the great toe suggestive of osteomyelitis. Soft tissue swelling. Electronically Signed: Jose Alberto Wing MD at 15:01 EST , 06/26/23 1854 <Electronically signed by Erick Lorenzo DPM> Cosigner Signature (if applicable): CC: MANASA Lorenzo; Dr. Jay Easton, DO~ Signed [facility] Work Phone: 1(331) 482-705901-11-2024 History and physical note Author Crystal Emerson [facility] June 26, 2023 4:21pm Note Date/Time June 26, 2023 3 :19pm [facility] Medical Records Department [address] [place] [address] H&P Exam - Hospitalist 06/26/23 1518 MR#: [id number] Acct: [id number] Name: RAMÓN THOMAS Rep #:[id number] : 1955 67 From: Crystal Emerson MD PCP: Dr. Jay Easton, Status:REG ER Location: ED HPI - General General Date of Admission: 06/26/23 Date of Service: 06/26/23 Chief Complaint: L great toe wound. HPI Narrative The patient is a 67 y/o M w/ PMHx: BL LE Chronic lymphedema, Chronic anemia, Obesity, Hypothyroidism, HFpEF, COPD, HTN, HLD, Chronic AF, Restrictive lung disease, OPAL, Chronic peripheral neuropathy, Hypothyroidism, CKD stage II per GFR trending who presents to the [facility] ED on 06/26/23 with history of ongoing left great toe wound with PCP evaluation with plain film obtained per his physician at the [facility] with evidence of osteomyelitis with referral to the ED given concerns. Patient does have chronic bilateral lymphedema and states this is unchanged. He denies any specific pain to the left great toe but notes when he walks he has bilateral hip pain secondary to severe osteoarthritis. Workup inthe ED included T 98.7, heart rate 99, BP 122/69, respiratory rate 18, 96% on room air, CBC with a BC 11.1, hemoglobin 12.2, platelet 207 with left shift and lymphopenia, BMP with BUN/creatinine 16/1.39, lactic acid 2.2, CRP and ESR pending upon requested evaluation of patient, plain film of left foot with notederosive changes are seen in the distal portion of the distal pharynx of the great toe suggestive of osteomyelitis, soft tissue swelling. In the ED patient ministered IV Unasyn and IV vancomycin. ED discussed case with podiatry Dr. Lorenzo. [facility] Medical History (Updated 06/26/23 @ 16:[address] Crystal Emerson MD) (HFpEF) heart failure with preserved ejection fraction Arthritis of left hip Bone lesion Chronic anemia CKD (chronic kidney disease), stage II COPD (chronic obstructive pulmonary disease) Hyperlipidemia Hyperparathyroidism Hypothyroidism Idiopathic hypertrophic subaortic stenosis Lesion of lumbar spine Lumbar degenerative disc disease Lumbar facet arthropathy Lumbar radiculopathy Nephrolithiasis Nonrheumatic mitral valve regurgitation Observed sleep apnea Peripheral neuropathy Permanent atrial fibrillation Restrictive lung disease Home Medications spironolactone 25 mg tablet 25 mg PO BID diuretic 10/23/13 [History Last Taken 11/15/17] levothyroxine 125 mcg tablet 125 mcg PO DAILY thyroid 11/16/17 [History Last Taken 05/21/18 09:30 125 MCG] albuterol sulfate 90 mcg/actuation aerosol inhaler 2 puff inhalation Q4H PRN shortness of breath or wheezing 10/24/22 [History Last Taken Unknown] calcitriol 0.25 mcg capsule 0.25 mcg PO DAILY 10/24/22 [History Last Taken Unknown] calcium gluconate 60 mg calcium (650 mg) tablet 60 mg PO DAILY 10/24/22 [History Last Taken Unknown] cyanocobalamin (vitamin B-12) 1,000 mcg tablet 1,000 mcg PO DAILY 10/24/22 [History Last Taken Unknown] lidocaine HCl 4 % topical cream (Aspercreme (lidocaine HCl)) 1 applic topical TID PRN pain 10/24/22 [History Last Taken Unknown] magnesium oxide 400 mg (241.3 mg magnesium) tablet 400 mg PO DAILY 10/24/22 [History Last Taken Unknown] metoprolol tartrate 100 mg tablet 50 mg PO BID 10/24/22 [History Last Taken Unknown] potassium chloride 10 mEq tablet,extended release 20 meq PO DAILY 10/24/22 [History Last Taken Unknown] rivaroxaban 20 mg tablet (Xarelto) 20 mg PO DAILY 10/24/22 [History Last Taken Unknown] ibandronate 150 mg tablet 150 mg PO QMONTH 11/12/22 [History Last Taken Unknown] diltiazem HCl 120 mg capsule,extended release 24 hr 120 mg PO DAILY 06/26/23 [History Last Taken Unknown] trazodone 100 mg tablet 100 mg PO QHS 06/26/23 [History Last Taken Unknown] Allergy/AdvReac Type Severity Reaction Status Date / Time Tetracyclines Allergy Swelling Verified 06/26/23 12:59 Family History (Updated 06/26/23 @ 16:[address] Crystal Emerson MD) Father Myocardial infarction CAD (coronary artery disease) Heart disease Hypertension Mother Hypertension Diabetes Surgical History (Updated 06/26/23 @ 16:[address] Crystal Emerson MD) History of lung surgery History of surgery on lower extremity History of transesophageal echocardiography (JAMEE) Hx of cardiovascular stress test Hx of echocardiogram Hx of tonsillectomy Social History (Updated 06/26/23 @ 16:[address] Crystal Emerson MD) household members: none current occupational status: retired Smoking Status: Never smoker alcohol intake: never substance use type: does not use caffeine: Yes Type: carbonated beverages ROS ROS Narrative Admission Review of Systems: CONSTITUTIONAL: No weight loss, fever, chills, + weakness or fatigue. HEENT: Eyes: No visual loss, blurred vision, double vision or yellow sclerae. Ears, Nose, Throat: No hearing loss, sneezing, congestion, runny nose or sore throat. SKIN: No rash or itching, lesions, wounds except + for very staged ecchymoses, abrasions and recent left great toe distal tip wound. CARDIOVASCULAR: No chest pain, chest pressure or chest discomfort, palpitations,edema, orthopnea, syncopal events. RESPIRATORY: No shortness of breath, cough or sputum, wheezing, hemoptysis. GASTROINTESTINAL: No anorexia, nausea, vomiting or diarrhea, abdominal pain, melena, BRBPR. GENITOURINARY: No dysuria, frequency, urgency or retention. NEUROLOGICAL: No headache, dizziness, syncope, paralysis, ataxia, numbness or tingling in the extremities, focal weakness, change in bowel or bladder control,seizure. MUSCULOSKELETAL: + muscle, back pain, joint pain or stiffness. HEMATOLOGIC: + Anemia, easy bleeding/bruising. LYMPHATICS: No enlarged nodes. No history of splenectomy. PSYCHIATRIC: No history of depression or anxiety. ENDOCRINOLOGIC: No reports of sweating, cold or heat intolerance. No polyuria orpolydipsia. ALLERGIES: No history of asthma, hives, eczema or rhinitis. Vital Signs Vital Signs Vital Signs: 06/26/23 12:58 06/26/23 14:35 Temperature 97.4 F L 98.7 F Temperature Source Temporal Oral Pulse Rate 98 99 Respiratory Rate 16 18 Blood Pressure 132/106 H 122/69 H Blood Pressure Mean 114 86 Pulse Ox 96 96 Oxygen Delivery Method Room Air Room Air Weight Weight: 218 lb 4.122 oz Body Mass Index (BMI) 33.2 Physical Exam Narrative Physical Examination: General: Awake, alert, oriented x 3 and cooperative, seated upright in the ED bed, denies any pain in his toe, notes pain primarily with walking in his hips secondary to severe arthritis. Skin: Normal color, normal turgor, no icterus, no cyanosis except for very staged ecchymoses, bilateral lower extremity venous stasis skin changes, distal left toe small wounds but no drainage and no marked erythema. HEENT: AT/NC, EOMI, PERRLA, MMM, no carotid bruits or JVD noted. Lungs: Mildly diminished, greater bases, appropriate effort, no rales, ronchi orwheezing. Heart: Irregular; no gallop, rub audible. Abdomen: Soft, obese, NTTP, ND, mildly hyperactive BS, no appreciated HSM. Extremities: No cyanosis, no clubbing, significant pedal to proximal lower extremity chronic lymphedema, see skin. Neurological: Patient awake, alert, oriented as noted, cognitive function intact; pupils equally reactive to light and accommodation, cranial nerves grossly normal, moving all 4 extremities, no focal deficits, strength moderatelyto severely globally decreased primarily secondary to underlying comorbidities. Psychiatric: Affect appears normal, no acute evidence of depressive or anxiety feelings. Results Lab / Micro Data 06/26/23 14:00 06/26/23 14:00 Labs: Laboratory Results - last 24 hr 06/26/23 14:00: WBC 11.1 H, RBC 4.01 L, Hgb 12.2 L, Hct 37.4 L, MCV 93.3, MCH 30.4, MCHC 32.6, RDW Std Deviation 48.0 H, RDW Coeff of Loretta 13.9, Plt Count 207,MPV 11.6, Immature Gran % (Auto) 0.600, Neut % (Auto) 84.3 H, Lymph % (Auto) 6.0L, Blount % (Auto) 8.9, Eos % (Auto) 0.1, Baso % (Auto) 0.1, Absolute Neuts (auto)9.4 H, Absolute Lymphs (auto) 0.67 L, Nucleated RBC % 0, ESR 6, Sodium 136, Potassium 3.9, Chloride 100, Carbon Dioxide 29.0, Anion Gap 7, BUN 16, Creatinine 1.39 H, Est GFR (MDRD) Af Amer 65, Est GFR (MDRD) Non-Af 54 L, BUN/Creatinine Ratio 11.5, Glucose 94, Lactic Acid 2.2 H*, Calcium 9.5 Imagaing Radiology Impression Toe X-Ray 06/26/23 14:34 IMPRESSION: Erosive changes are seen in the distal portion of the distal pharynx of the great toe suggestive of osteomyelitis. Soft tissue swelling. Electronically Signed: Jose Alberto Wing MD at 15:01 EST , Assessment & Plan Assessment/Plan (1) Osteomyelitis of great toe of left foot: PLAN: Plan The patient is a 67 y/o M w/ PMHx: BL LE Chronic lymphedema, Chronic anemia, Obesity, Hypothyroidism, HFpEF, COPD, HTN, HLD, Chronic AF, Restrictive lung disease, OPAL, Chronic peripheral neuropathy, Hypothyroidism, CKD stage II per GFR trending who presents to the [facility] ED on 06/26/23 with history of ongoing left great toe wound with PCP evaluation with plain film obtained per his physician at the [facility] with evidence of osteomyelitis with referral to the ED given concerns. #1. Left great toe wound with acute osteomyelitis: Will admit to [facility], maintain on IV vancomycin and Zosyn, given no discharge and a dry wound will not pursue cultures at this time but likely podiatry will send pathology once debridement is performed, ESR and CRP pending upon requested evaluation of patient, plan repeat CBC in AM, continue affected extremity elevation above heart when seated and in bed, OLY/PVRs requested, n.p.o. status after midnight in case of operative intervention needs. #2. PAD: Reported history, per report no history of any peripheral angioplasty or stenting, holding Xarelto temporarily as noted with resumption immediately once able, requesting OLY/PVR as noted, adding low-dose statin, continue hypertensive regimen. #3. Chronic Kidney Disease Stage II primarily per GFR trending however GFR mildly reduced today but previously primarily 60-80 range: Admission BUN/Cr 16/1.39, baseline renal function 0.9-1.2, repeat BMP in AM. #4. Chronic AF: We will continue to home with all end of regimen, holding home Xarelto with last dose the evening prior. #5. Chronic COPD/restrictive lung disease: From current list not on any chronicregimen, PRN albuterol, HOB, IS parameters. #6. Chronic peripheral neuropathy: Likely plays a significant role in patient'sinjury as noted above, not on any chronic regimen but if necessary could consider adding low-dose gabapentin. #7. HFpEF: Most recent echocardiogram noted 04/07/2018 with EF 65%, stage I diastolic dysfunction, severely enlarged LA, mild MVI, RVSP 49 mmHg with moderate pulmonary hypertension, mild ATIF, mildly dilated aortic root. Given history will only judiciously hydrate as needed. Temporarily holding patient home Xarelto as noted, continue metoprolol, spironolactone, not on ENRIQUE inhibitor/ARB, not on statin therapy. #8. Hypertension: Continue home regimen including diltiazem, spironolactone, metoprolol, PRN hydralazine. #9. Hyperlipidemia: Not on regimen, adding low-dose statin given presentation history, encourage continued outpatient follow-up. #10. Hypothyroidism: We will continue patient home levothyroxine regimen. #11. Chronic normocytic anemia: Admission hemoglobin 12.2, MCV 93.3, baseline hemoglobin 11-12, stable, continue to trend. #12. Obesity: Weight loss and lifestyle changes encouraged. #13. OPAL: CPAP nightly. #14. DVT prophylaxis: Will temporally hold patient home Xarelto regimen with last dose 06/25/2023 per podiatry request for possible operative needs. Resume once amenable. #15. CODE status: Patient HCPOA and living will are not in place but he notes his sister Sacha would be his decision-maker if he was unable. Discussed CODEstatus at length including difference between FULL code, DNR-CCA and DNR-CC status. Following discussions about the differences in these status, requested Full Code status. Advanced Care Planning Face to Face Time: 16 minutes. Charges/Coding Visit Charges Inpatient E&M: 80537 Init Hosp L3 Procedures Hospitalists Procedures: 50324 Advncd Care Plan 30 Min 06/26/23 1621 <Electronically signed by Crystal Emerson MD> Cosigner Signature (if applicable): CC: Dr. Crystal Emerson MD; Dr. Jay Easton DO~ Signed [facility] Work Phone: 1(836) 849-536707-26-2022 Note ORIGINAL EXAMINATION: TWO XRAY VIEWS OF [...] Sign Date: 01/08/2022 10:07:46 PM Ordering Provider: JAY EASTON [facility]07-26-2022 Note ORIGINAL EXAMINATION: TWO XRAY VIEWS OF [...] Sign Date: 01/08/2022 10:07:46 PM [facility] Plan note Future Appointments Appointment Date:02/23/2024 01:00:00 PM Scheduled Provider: Location:[facility] Appointment Type:US Abdomen Limited Appointment Date:03/17/2024 01:00:00 PM Scheduled Provider:MCKENZIE IRVING Location:[facility] Appointment Type:CV OV Appointment Date:03/31/2024 02:00:00 PM Scheduled Provider:JAY EASTON DO Location:[facility] Appointment Type:PC OV Future Scheduled Tests Radiology* US Abdomen Limited 02/23/24 [facility] Evaluation + Plan note Future Appointments Appointment Date:05/03/2021 01:15:00 PM Scheduled Provider:GABRIELE VIDAL MD Location:[facility] Appointment Type:PC OV Appointment Date:05/04/2021 10:15:00 AM Scheduled Provider: Location:[facility] Appointment Type:CV OV Future Scheduled Tests Laboratory* Complete Blood Count 11/27/20 * Complete Metabolic Panel 11/27/20 [facility] Evaluation + Plan note Future Appointments Appointment Date:08/03/2021 02:00:00 PM Scheduled Provider:GABRIELE VIDAL MD Location:[facility] Appointment Type:PC OV Appointment Date:08/10/2021 10:00:00 AM Scheduled Provider: Location:[facility] Appointment Type:CV OV Future Scheduled Tests Laboratory* Complete Blood Count 11/27/20 * Complete Metabolic Panel 11/27/20 [facility] Evaluation + Plan note Future Appointments Appointment Date:11/08/2021 03:00:00 PM Scheduled Provider:GABRIELE VIDAL MD Location:[facility] Appointment Type:PC OV Future Scheduled Tests Laboratory* Urinalysis 08/09/21 * N-Terminal proBNP 02/07/22 * Complete Blood Count 11/27/20 * Complete Metabolic Panel 11/27/20 [facility] Evaluation + Plan note Future Appointments Appointment Date:02/13/2022 01:00:00 PM Scheduled Provider: [facility] Appointment Type:CV OV Appointment Date:02/14/2022 01:30:00 PM Scheduled Provider:JAY EASTON DO Location:[facility] Appointment Type:PC OV Follow Up Future Scheduled Tests Laboratory* Urinalysis 08/09/21 * N-Terminal proBNP 02/07/22 [facility] Evaluation + Plan note Future Appointments Appointment Date:02/14/2022 01:30:00 PM Scheduled Provider:JAY EASTON DO Location:[facility] Appointment Type:PC OV Follow Up Appointment Date:02/25/2022 02:00:00 PM Scheduled Provider: Location:[facility] Appointment Type:CV Procedure - AOH Echo Appointment Date:03/15/2022 11:30:00 AM Scheduled Provider: [facility] Appointment Type:CV OV Future Scheduled Tests Laboratory* Urinalysis 08/09/21 * N-Terminal proBNP 02/07/22 [facility] Evaluation + Plan note Future Appointments Appointment Date:03/15/2022 11:30:00 AM Scheduled Provider: [facility] Appointment Type:CV OV Appointment Date:03/21/2022 02:00:00 PM Scheduled Provider:JAY EASTON DO Location:[facility] Appointment Type:PC OV Follow Up Future Scheduled Tests Laboratory* Urinalysis 08/09/21 * N-Terminal proBNP 02/07/22 [facility] Evaluation + Plan note Future Appointments Appointment Date:06/25/2023 01:00:00 PM Scheduled Provider:JAY EASTON DO Location:[facility] Appointment Type:PC OV Appointment Date:07/08/2023 02:00:00 PM Scheduled Provider:JAY EASTON DO Location:[facility] Appointment Type: Wellness Medicare Appointment Date:08/25/2023 01:00:00 PM Scheduled Provider:MCKENZIE IRVING Location:[facility] Appointment Type:CV OV Future Scheduled Tests Laboratory* Complete Blood Count 06/19/23 Radiology* US Thyroid 06/19/23 [facility] Evaluation + Plan note Future Appointments Appointment Date:06/27/2023 01:15:00 PM Scheduled Provider: Location:[facility] Appointment Type:PC Nurse Appointment Date:07/08/2023 02:00:00 PM Scheduled Provider:JAY EASTON DO Location:[facility] Appointment Type: Wellness Medicare Appointment Date:08/25/2023 01:00:00 PM Scheduled Provider:MCKENZIE IRVING Location:[facility] Appointment Type:CV OV Future Scheduled Tests Laboratory* Complete Blood Count 06/19/23 Radiology* US Thyroid 06/19/23 [facility] Evaluation + Plan note Future Appointments Appointment Date:07/09/2023 03:30:00 PM Scheduled Provider:ELHAM MORALES Location:[facility] Appointment Type: OV Hospital Follow-Up Appointment Date:07/10/2023 01:00:00 PM Scheduled Provider: Location:[facility] Appointment Type:US Thyroid Appointment Date:07/23/2023 11:30:00 AM Scheduled Provider:JAY EASTON DO Location:[facility] Appointment Type: Wellness Medicare Appointment Date:08/25/2023 01:00:00 PM Scheduled Provider:MCKENZIE IRVING Location:[facility] Appointment Type:CV OV Future Scheduled Tests Laboratory* Basic Metabolic Panel 06/30/23 * Clostridium difficile toxin A and B (PCR) (AO) 07/03/23 * Complete Blood Count 06/30/23 Radiology* US Thyroid 07/10/23 [facility] Evaluation + Plan note Future Appointments Appointment Date:2023 01:30:00 PM Scheduled Provider:MCKENZIE IRVING Location:[facility] Appointment Type:CV OV Appointment Date:07/23/2023 11:30:00 AM Scheduled Provider:JAY EASTON DO Location:[facility] Appointment Type:PC Wellness Medicare Future Scheduled Tests Laboratory* Basic Metabolic Panel 06/30/23 * Clostridium difficile toxin A and B (PCR) (AO) 07/03/23 * Complete Blood Count 06/30/23 [facility] Evaluation + Plan note Future Appointments Appointment Date:08/13/2023 01:00:00 PM Scheduled Provider: Location:[facility] Appointment Type:Echo - Echocardiogram Adult Appointment Date:08/14/2023 02:00:00 PM Scheduled Provider:JAY EASTON DO Location:[facility] Appointment Type:PC Wellness Medicare Appointment Date:08/25/2023 01:00:00 PM Scheduled Provider:MCKENZIE IRVING Location:[facility] Appointment Type:CV OV Future Scheduled Tests Laboratory* Basic Metabolic Panel 06/30/23 * Basic Metabolic Panel 07/21/23 * Clostridium difficile toxin A and B (PCR) (AO) 07/03/23 * Complete Blood Count 06/30/23 * Culture Wound Aerobic with Gram Stain 08/06/23 [facility] Fittraluation + Plan note Future Appointments Appointment Date:08/14/2023 02:00:00 PM Scheduled Provider:JAY EASTON DO Location:[facility] Appointment Type:PC Wellness Medicare Appointment Date:08/25/2023 01:00:00 PM Scheduled Provider:MCKENZIE IRVING Location:[facility] Appointment Type:CV OV Future Scheduled Tests Laboratory* Basic Metabolic Panel 06/30/23 * Basic Metabolic Panel 07/21/23 * Clostridium difficile toxin A and B (PCR) (AO) 07/03/23 * Complete Blood Count 06/30/23 [facility] evaluation + Plan note Future Appointments Appointment Date:08/25/2023 01:00:00 PM Scheduled Provider:MCKENZIE IRVING Location:[facility] Appointment Type:CV OV Appointment Date:11/12/2023 01:30:00 PM Scheduled Provider:JAY EASTON DO Location:[facility] Appointment Type:PC OV Diagnostic Tests Pending * Prostate Specific Antigen 08/14/23 [facility] evaluation + Plan note Future Appointments Appointment Date:02/10/2024 01:30:00 PM Scheduled Provider:JAY EASTON DO Location:[facility] Appointment Type:PC OV Appointment Date:03/17/2024 01:00:00 PM Scheduled Provider:MCKENZIE IRVING Location:[facility] Appointment Type:CV OV Future Scheduled Tests Laboratory* Basic Metabolic Panel 08/28/23 * N-Terminal proBNP 08/28/23 [facility] evaluation + Plan note Future Appointments Appointment Date:03/17/2024 01:00:00 PM Scheduled Provider:MCKENZIE IRVING Location:[facility] Appointment Type:CV OV Appointment Date:03/31/2024 02:00:00 PM Scheduled Provider:JAY EASTON DO Location:[facility] Appointment Type:PC OV [facility] Evaluation + Plan note Future Appointments Appointment Date:06/03/2024 03:30:00 PM Scheduled Provider:JAY EASTON DO Location:[facility] Appointment Type:PC OV Future Scheduled Tests Laboratory* Protein Electrophoresis Urine 03/31/24 * Protein Electrophoresis Panel 03/31/24 Radiology* US Elastography Liver Only 03/29/24 [facility] Evaluation + Plan note Future Appointments Appointment Date:06/03/2024 03:30:00 PM Scheduled Provider:JAY EASTON DO Location:[facility] Appointment Type:PC OV Diagnostic Tests Pending * Protein Electrophoresis Panel 04/02/24 * Protein Electrophoresis Urine 04/02/24 Future Scheduled Tests Radiology* US Elastography Liver Only 03/29/24 [facility] Evaluation + Plan note Future Appointments Appointment Date:06/03/2024 03:30:00 PM Scheduled Provider:JAY EASTON DO Location:[facility] Appointment Type:PC OV [facility] evaluation + Plan note Future Appointments Appointment Date:08/12/2024 01:30:00 PM Scheduled Provider:JAY EASTON DO Location:[facility] Appointment Type:PC OV Appointment Date:09/01/2024 01:30:00 PM Scheduled Provider:JAY EASTON DO Location:[facility] Appointment Type:PC Wellness Medicare Future Scheduled Tests Radiology* MRI Liver 10/28/24 [facility] Evaluation + Plan note Future Appointments Appointment Date:10/26/2024 03:30:00 PM Scheduled Provider:JAY EASTON DO Location:[facility] Appointment Type:PC OV Appointment Date:11/01/2024 11:00:00 AM Scheduled Provider: Location:[facility] Appointment Type:MRI Liver Future Scheduled Tests Laboratory* Basic Metabolic Panel 03/26/25 * Complete Blood Count 03/26/25 * N-Terminal proBNP 03/26/25 Radiology* MRI Liver 11/01/24 [facility] Evaluation + Plan note Future Appointments Appointment Date:12/01/2024 03:00:00 PM Scheduled Provider:JAY EASTON DO Location:[facility] Appointment Type:PC OV Future Scheduled Tests Laboratory* Basic Metabolic Panel 03/26/25 * Complete Blood Count 03/26/25 * N-Terminal proBNP 03/26/25 [facility] evaluation + Plan note Future Appointments Appointment Date:02/24/2025 02:00:00 PM Scheduled Provider:JAY EASTON DO Location:[facility] Appointment Type:PC OV Appointment Date:03/28/2025 01:00:00 PM Scheduled Provider: Location:[facility] Appointment Type:Echo - Echocardiogram Adult Future Scheduled Tests Laboratory* Basic Metabolic Panel 12/04/24 * Basic Metabolic Panel 03/26/25 * Complete Blood Count 03/26/25 * N-Terminal proBNP 12/04/24 * N-Terminal proBNP 03/26/25 [facility] Evaluation + Plan note Future Appointments Appointment Date:04/07/2025 11:30:00 AM Scheduled Provider:TITA FRIAS DO Location:[facility] Appointment Type:PC OV Appointment Date:04/11/2025 01:45:00 PM Scheduled Provider:TONNY GUERRERO Location:[facility] Appointment Type:CV OV Future Scheduled Tests Laboratory* Basic Metabolic Panel 12/04/24 * Basic Metabolic Panel 03/26/25 * Complete Blood Count 03/26/25 * N-Terminal proBNP 12/04/24 * N-Terminal proBNP 03/26/25 [facility] Evaluation + Plan note Future Appointments Appointment Date:05/17/2025 11:00:00 AM Scheduled Provider: Location:[facility] Appointment Type:yyNM Inj Myocardial Spect PYP for Amyloi Appointment Date:05/17/2025 12:00:00 PM Scheduled Provider: Location:[facility] Appointment Type:yyNM Myocardial Spect PYP for Amyloidosi Appointment Date:05/17/2025 02:00:00 PM Scheduled Provider: Location:[facility] Appointment Type:yyNM Myocard Spect PYP for Amyloidosis S Appointment Date:06/02/2025 11:00:00 AM Scheduled Provider:JAY EASTON DO Location:[facility] Appointment Type:PC OV Future Scheduled Tests Laboratory* Free K+L Lt Chains,Qn,S 04/11/25 * Basic Metabolic Panel 04/11/25 * Basic Metabolic Panel 10/10/25 * Basic Metabolic Panel 12/04/24 * Basic Metabolic Panel 03/26/25 * Complete Blood Count 03/26/25 * LARON (serum) 04/11/25 * LARON (urine) 04/11/25 * N-Terminal proBNP 04/11/25 * N-Terminal proBNP 10/10/25 * N-Terminal proBNP 12/04/24 * N-Terminal proBNP 03/26/25 Radiology* NM Myocardial Spect PYP for Amyloidosis 05/17/25 [facility] Evaluation + Plan note Future Appointments Appointment Date:05/17/2025 11:00:00 AM Scheduled Provider: Location:[facility] Appointment Type:yyNM Inj Myocardial Spect PYP for Amyloi Appointment Date:05/17/2025 12:00:00 PM Scheduled Provider: Location:[facility] Appointment Type:yyNM Myocardial Spect PYP for Amyloidosi Appointment Date:05/17/2025 02:00:00 PM Scheduled Provider: Location:[facility] Appointment Type:yyNM Myocard Spect PYP for Amyloidosis S Appointment Date:06/02/2025 11:00:00 AM Scheduled Provider:JAY EASTON DO Location:[facility] Appointment Type:PC OV Future Scheduled Tests Laboratory* Free K+L Lt Chains,Qn,S 04/11/25 * Basic Metabolic Panel 10/10/25 * Basic Metabolic Panel 12/04/24 * Basic Metabolic Panel 03/26/25 * LARON (serum) 04/11/25 * LARON (urine) 04/11/25 * N-Terminal proBNP 10/10/25 * N-Terminal proBNP 12/04/24 * N-Terminal proBNP 03/26/25 Radiology* NM Myocardial Spect PYP for Amyloidosis 05/17/25 [facility] Evaluation noteNo assessment information available [facility] Work Phone: evaluation note* Diagnosis Onset Date Resolution Status Bone lesion acute Bone lesion acute [facility] Work Phone: evaluation note* Diagnosis Onset Date Resolution Status Bone lesion chronic [facility] Work Phone: evaluation note* Diagnosis Onset Date Resolution Status Acidosis, lactic acute Anticoagulant long-term use acute Creatinine elevation acute Leukocytosis acute Osteomyelitis of great toe of left foot acute Anemia in chronic illness ch ronic PAD (peripheral artery disease) chronic Venous insufficiency chronic [facility] Work Phone: Evaluation note* Diagnosis Onset Date Resolution Status Acidosis, lactic acute Anticoagulant long-term use acute Cellulitis of left toe acute Chronic pain of toe of left foot acute Creatinine elevation acute IGTN (ingrowing toe nail) ac [place] Leukocytosis acute Osteomyelitis of great toe of left foot acute Anemia in chronic illness ch ronic HTN (hypertension) chronic PAD (peripheral artery disease) chronic Venous insufficiency chronic [facility] Work Phone: Evaluation note* Diagnosis Onset Date Resolution Status Acidosis, lactic acute Anticoagulant long-term use acute Creatinine elevation acute IGTN (ingrowing toe nail) ac [place] Leukocytosis acute Osteomyelitis of great toe of left foot acute Anemia in chronic illness ch ronic HTN (hypertension) chronic PAD (peripheral artery disease) chronic Venous insufficiency chronic Cellulitis of left toe resol crystal Encounter for screening for malignant neoplasm of colon acute [facility] Work Phone: History and physical note Author Crystal Emerson [facility] June 26, 2023 4:21pm Note Date/Time June 26, 2023 3 :19pm [facility] Medical Records Department [address] [place] [address] H&P Exam - Hospitalist 06/26/23 1518 MR#: [id number] Acct: [id number] Name: RAMÓN THOMAS Rep #:[id number] : 1955 67 From: Crystal Emerson MD PCP: Dr. Jay Easton, DO Status:REG ER Location: ED HPI - General General Date of Admission: 06/26/23 Date of Service: 06/26/23 Chief Complaint: L great toe wound. HPI Narrative The patient is a 67 y/o M w/ PMHx: BL LE Chronic lymphedema, Chronic anemia, Obesity, Hypothyroidism, HFpEF, COPD, HTN, HLD, Chronic AF, Restrictive lung disease, OPAL, Chronic peripheral neuropathy, Hypothyroidism, CKD stage II per GFR trending who presents to the [facility] ED on 06/26/23 with history of ongoing left great toe wound with PCP evaluation with plain film obtained per his physician at the [facility] with evidence of osteomyelitis with referral to the ED given concerns. Patient does have chronic bilateral lymphedema and states this is unchanged. He denies any specific pain to the left great toe but notes when he walks he has bilateral hip pain secondary to severe osteoarthritis. Workup inthe ED included T 98.7, heart rate 99, BP 122/69, respiratory rate 18, 96% on room air, CBC with a BC 11.1, hemoglobin 12.2, platelet 207 with left shift and lymphopenia, BMP with BUN/creatinine 16/1.39, lactic acid 2.2, CRP and ESR pending upon requested evaluation of patient, plain film of left foot with notederosive changes are seen in the distal portion of the distal pharynx of the great toe suggestive of osteomyelitis, soft tissue swelling. In the ED patient ministered IV Unasyn and IV vancomycin. ED discussed case with podiatry Dr. Lorenzo. [facility] Medical History (Updated 06/26/23 @ 16:[address] Crystal Emerson MD) (HFpEF) heart failure with preserved ejection fraction Arthritis of left hip Bone lesion Chronic anemia CKD (chronic kidney disease), stage II COPD (chronic obstructive pulmonary disease) Hyperlipidemia Hyperparathyroidism Hypothyroidism Idiopathic hypertrophic subaortic stenosis Lesion of lumbar spine Lumbar degenerative disc disease Lumbar facet arthropathy Lumbar radiculopathy Nephrolithiasis Nonrheumatic mitral valve regurgitation Observed sleep apnea Peripheral neuropathy Permanent atrial fibrillation Restrictive lung disease Home Medications spironolactone 25 mg tablet 25 mg PO BID diuretic 10/23/13 [History Last Taken 11/15/17] levothyroxine 125 mcg tablet 125 mcg PO DAILY thyroid 11/16/17 [History Last Taken 05/21/18 09:30 125 MCG] albuterol sulfate 90 mcg/actuation aerosol inhaler 2 puff inhalation Q4H PRN shortness of breath or wheezing 10/24/22 [History Last Taken Unknown] calcitriol 0.25 mcg capsule 0.25 mcg PO DAILY 10/24/22 [History Last Taken Unknown] calcium gluconate 60 mg calcium (650 mg) tablet 60 mg PO DAILY 10/24/22 [History Last Taken Unknown] cyanocobalamin (vitamin B-12) 1,000 mcg tablet 1,000 mcg PO DAILY 10/24/22 [History Last Taken Unknown] lidocaine HCl 4 % topical cream (Aspercreme (lidocaine HCl)) 1 applic topical TID PRN pain 10/24/22 [History Last Taken Unknown] magnesium oxide 400 mg (241.3 mg magnesium) tablet 400 mg PO DAILY 10/24/22 [History Last Taken Unknown] metoprolol tartrate 100 mg tablet 50 mg PO BID 10/24/22 [History Last Taken Unknown] potassium chloride 10 mEq tablet,extended release 20 meq PO DAILY 10/24/22 [History Last Taken Unknown] rivaroxaban 20 mg tablet (Xarelto) 20 mg PO DAILY 10/24/22 [History Last Taken Unknown] ibandronate 150 mg tablet 150 mg PO QMONTH 11/12/22 [History Last Taken Unknown] diltiazem HCl 120 mg capsule,extended release 24 hr 120 mg PO DAILY 06/26/23 [History Last Taken Unknown] trazodone 100 mg tablet 100 mg PO QHS 06/26/23 [History Last Taken Unknown] Allergy/AdvReac Type Severity Reaction Status Date / Time Tetracyclines Allergy Swelling Verified 06/26/23 12:59 Family History (Updated 06/26/23 @ 16:[address] Crystal Emerson MD) Father Myocardial infarction CAD (coronary artery disease) Heart disease Hypertension Mother Hypertension Diabetes Surgical History (Updated 06/26/23 @ 16:[address] Crystal Emerson MD) History of lung surgery History of surgery on lower extremity History of transesophageal echocardiography (JAMEE) Hx of cardiovascular stress test Hx of echocardiogram Hx of tonsillectomy Social History (Updated 06/26/23 @ 16:[address] Crystal Emerson MD) household members: none current occupational status: retired Smoking Status: Never smoker alcohol intake: never substance use type: does not use caffeine: Yes Type: carbonated beverages ROS ROS Narrative Admission Review of Systems: CONSTITUTIONAL: No weight loss, fever, chills, + weakness or fatigue. HEENT: Eyes: No visual loss, blurred vision, double vision or yellow sclerae. Ears, Nose, Throat: No hearing loss, sneezing, congestion, runny nose or sore throat. SKIN: No rash or itching, lesions, wounds except + for very staged ecchymoses, abrasions and recent left great toe distal tip wound. CARDIOVASCULAR: No chest pain, chest pressure or chest discomfort, palpitations,edema, orthopnea, syncopal events. RESPIRATORY: No shortness of breath, cough or sputum, wheezing, hemoptysis. GASTROINTESTINAL: No anorexia, nausea, vomiting or diarrhea, abdominal pain, melena, BRBPR. GENITOURINARY: No dysuria, frequency, urgency or retention. NEUROLOGICAL: No headache, dizziness, syncope, paralysis, ataxia, numbness or tingling in the extremities, focal weakness, change in bowel or bladder control,seizure. MUSCULOSKELETAL: + muscle, back pain, joint pain or stiffness. HEMATOLOGIC: + Anemia, easy bleeding/bruising. LYMPHATICS: No enlarged nodes. No history of splenectomy. PSYCHIATRIC: No history of depression or anxiety. ENDOCRINOLOGIC: No reports of sweating, cold or heat intolerance. No polyuria orpolydipsia. ALLERGIES: No history of asthma, hives, eczema or rhinitis. Vital Signs Vital Signs Vital Signs: 06/26/23 12:58 06/26/23 14:35 Temperature 97.4 F L 98.7 F Temperature Source Temporal Oral Pulse Rate 98 99 Respiratory Rate 16 18 Blood Pressure 132/106 H 122/69 H Blood Pressure Mean 114 86 Pulse Ox 96 96 Oxygen Delivery Method Room Air Room Air Weight Weight: 218 lb 4.122 oz Body Mass Index (BMI) 33.2 Physical Exam Narrative Physical Examination: General: Awake, alert, oriented x 3 and cooperative, seated upright in the ED bed, denies any pain in his toe, notes pain primarily with walking in his hips secondary to severe arthritis. Skin: Normal color, normal turgor, no icterus, no cyanosis except for very staged ecchymoses, bilateral lower extremity venous stasis skin changes, distal left toe small wounds but no drainage and no marked erythema. HEENT: AT/NC, EOMI, PERRLA, MMM, no carotid bruits or JVD noted. Lungs: Mildly diminished, greater bases, appropriate effort, no rales, ronchi orwheezing. Heart: Irregular; no gallop, rub audible. Abdomen: Soft, obese, NTTP, ND, mildly hyperactive BS, no appreciated HSM. Extremities: No cyanosis, no clubbing, significant pedal to proximal lower extremity chronic lymphedema, see skin. Neurological: Patient awake, alert, oriented as noted, cognitive function intact; pupils equally reactive to light and accommodation, cranial nerves grossly normal, moving all 4 extremities, no focal deficits, strength moderatelyto severely globally decreased primarily secondary to underlying comorbidities. Psychiatric: Affect appears normal, no acute evidence of depressive or anxiety feelings. Results Lab / Micro Data 06/26/23 14:00 06/26/23 14:00 Labs: Laboratory Results - last 24 hr 06/26/23 14:00: WBC 11.1 H, RBC 4.01 L, Hgb 12.2 L, Hct 37.4 L, MCV 93.3, MCH 30.4, MCHC 32.6, RDW Std Deviation 48.0 H, RDW Coeff of Loretta 13.9, Plt Count 207,MPV 11.6, Immature Gran % (Auto) 0.600, Neut % (Auto) 84.3 H, Lymph % (Auto) 6.0L, Blount % (Auto) 8.9, Eos % (Auto) 0.1, Baso % (Auto) 0.1, Absolute Neuts (auto)9.4 H, Absolute Lymphs (auto) 0.67 L, Nucleated RBC % 0, ESR 6, Sodium 136, Potassium 3.9, Chloride 100, Carbon Dioxide 29.0, Anion Gap 7, BUN 16, Creatinine 1.39 H, Est GFR (MDRD) Af Amer 65, Est GFR (MDRD) Non-Af 54 L, BUN/Creatinine Ratio 11.5, Glucose 94, Lactic Acid 2.2 H*, Calcium 9.5 Imagaing Radiology Impression Toe X-Ray 06/26/23 14:34 IMPRESSION: Erosive changes are seen in the distal portion of the distal pharynx of the great toe suggestive of osteomyelitis. Soft tissue swelling. Electronically Signed: Jose Alberto Wing MD at 15:01 EST , Assessment & Plan Assessment/Plan (1) Osteomyelitis of great toe of left foot: PLAN: Plan The patient is a 67 y/o M w/ PMHx: BL LE Chronic lymphedema, Chronic anemia, Obesity, Hypothyroidism, HFpEF, COPD, HTN, HLD, Chronic AF, Restrictive lung disease, OPAL, Chronic peripheral neuropathy, Hypothyroidism, CKD stage II per GFR trending who presents to the [facility] ED on 06/26/23 with history of ongoing left great toe wound with PCP evaluation with plain film obtained per his physician at the [facility] with evidence of osteomyelitis with referral to the ED given concerns. #1. Left great toe wound with acute osteomyelitis: Will admit to [facility], maintain on IV vancomycin and Zosyn, given no discharge and a dry wound will not pursue cultures at this time but likely podiatry will send pathology once debridement is performed, ESR and CRP pending upon requested evaluation of patient, plan repeat CBC in AM, continue affected extremity elevation above heart when seated and in bed, OLY/PVRs requested, n.p.o. status after midnight in case of operative intervention needs. #2. PAD: Reported history, per report no history of any peripheral angioplasty or stenting, holding Xarelto temporarily as noted with resumption immediately once able, requesting OLY/PVR as noted, adding low-dose statin, continue hypertensive regimen. #3. Chronic Kidney Disease Stage II primarily per GFR trending however GFR mildly reduced today but previously primarily 60-80 range: Admission BUN/Cr 16/1.39, baseline renal function 0.9-1.2, repeat BMP in AM. #4. Chronic AF: We will continue to home with all end of regimen, holding home Xarelto with last dose the evening prior. #5. Chronic COPD/restrictive lung disease: From current list not on any chronicregimen, PRN albuterol, HOB, IS parameters. #6. Chronic peripheral neuropathy: Likely plays a significant role in patient'sinjury as noted above, not on any chronic regimen but if necessary could consider adding low-dose gabapentin. #7. HFpEF: Most recent echocardiogram noted 04/07/2018 with EF 65%, stage I diastolic dysfunction, severely enlarged LA, mild MVI, RVSP 49 mmHg with moderate pulmonary hypertension, mild ATIF, mildly dilated aortic root. Given history will only judiciously hydrate as needed. Temporarily holding patient home Xarelto as noted, continue metoprolol, spironolactone, not on ENRIQUE inhibitor/ARB, not on statin therapy. #8. Hypertension: Continue home regimen including diltiazem, spironolactone, metoprolol, PRN hydralazine. #9. Hyperlipidemia: Not on regimen, adding low-dose statin given presentation history, encourage continued outpatient follow-up. #10. Hypothyroidism: We will continue patient home levothyroxine regimen. #11. Chronic normocytic anemia: Admission hemoglobin 12.2, MCV 93.3, baseline hemoglobin 11-12, stable, continue to trend. #12. Obesity: Weight loss and lifestyle changes encouraged. #13. OPAL: CPAP nightly. #14. DVT prophylaxis: Will temporally hold patient home Xarelto regimen with last dose 06/25/2023 per podiatry request for possible operative needs. Resume once amenable. #15. CODE status: Patient HCPOA and living will are not in place but he notes his sister Sacha would be his decision-maker if he was unable. Discussed CODEstatus at length including difference between FULL code, DNR-CCA and DNR-CC status. Following discussions about the differences in these status, requested Full Code status. Advanced Care Planning Face to Face Time: 16 minutes. Charges/Coding Visit Charges Inpatient E&M: 89627 Init Hosp L3 Procedures Hospitalists Procedures: 53785 Advncd Care Plan 30 Min 06/26/23 1621 <Electronically signed by Crystal Emerson MD> Cosigner Signature (if applicable): CC: Dr. Crystal Emerson MD; Dr. Jay Easton, DO~ Signed [facility] Work Phone: Hospital course Narrative No data available for this section [facility] Hospital Discharge instructions No data available for this section [facility] Progress note No data available for this section [facility] Reason for referral (narrative)No reason for referral information availableWDayton [facility] Work Phone: Summary Purpose Family History No Family History Records Found Relationship Condition Age at Onset Recorded Date/T caleb Unknown Family History?No pertinent history Unkno wn November 16, 2017 11:19am Family History?No pertinent history Unkno wn November 27, 2018 5:55pm Relationship Condition Age at Onset Recorded Date/T caleb father Myocardial infarction Unknown Relationship Condition Age at Onset Recorded Date/T caleb father Myocardial infarction Unknown Coronary artery disease Unknown Cardiac disease Unknown Hypertension Unknown mother Hypertension Unknown Diabetes mellitus Unknown Advance Directives No Advanced Directives Records Found Advance Directive Response Recorded Date/ Time Living Will No May 15 018 8:41am Power of Duplicate Maker No May 15, 2018 8:41am Advance Directive Response Recorded Date/ Time Living Will No May 15 018 9:41am Power of Duplicate Maker No May 15, 2018 9:41am Advance Directive Response Recorded Date/ Time Living Will No June 26 2:35pm Power of Duplicate Maker No June 26, 2023 2:35pm Advance Directive Response Recorded Date/ Time Living Will No June 26 5:04pm Power of Duplicate Maker No June 26, 2023 5:04pm Advance Directive Response Recorded Date/ Time Living Will No July 30, 2 024 1:39pm Power of Duplicate Maker No July 30, 2023 1:39pm Advance Directive Response Recorded Date/ Time Living Will No July 30, 2 024 2:39pm Power of Duplicate Maker No July 30, 2023 2:39pm Advance Directive Response Recorded Date/ Time Living Will No May 15, 018 9:41am Do you have a Healthcare Power of Duplicate Maker? No May 15, 2018 9:41am Chief Complaint and Reason for Visit Chief Complaint BILAT LOWER EXT LEG PAIN WEAKNESS BILAT LOWER EXT LEG PAIN WEAKNESS Chief Complaint Amb Documentation NEW - BONE LESION BONE LESION REVIEW BONE SCAN Reason for Visit Bone lesion Bone lesion Chief Complaint Amb Documentation NEW - BONE LESION BONE LESION REVIEW BONE SCAN LESION ON MRI Reason for Visit Bone lesion Bone lesion Chief Complaint LESION ON MRI REVIEW MRI RESULTS - NO LABS Hemoptysis Reason for Visit Bone lesion Chief Complaint Hemoptysis WOUND BLEEDING L GREAT TOE OSTEOMYELITIS Reason for Visit Acidosis, lactic Anticoagulant long-term use Creatinine elevation Leukocytosis Osteomyelitis of great toe of left foot Anemia in chronic illness PAD (peripheral artery disease) Venous insufficiency Chief Complaint Hemoptysis WOUND BLEEDING L GREAT TOE OSTEOMYELITIS L GREAT TOE OSTEOMYELITIS L GREAT TOE OSTEOMYELITIS Reason for Visit Acidosis, lactic Anticoagulant long-term use Cellulitis of left toe Chronic pain of toe of left foot Creatinine elevation IGTN (ingrowing toe nail) Leukocytosis Osteomyelitis of great toe of left foot Anemia in chronic illness HTN (hypertension) PAD (peripheral artery disease) Venous insufficiency Chief Complaint WOUND BLEEDING L GREAT TOE OSTEOMYELITIS L GREAT TOE OSTEOMYELITIS L GREAT TOE OSTEOMYELITIS Amb Documentation Reason for Visit Acidosis, lactic Anticoagulant long-term use Creatinine elevation IGTN (ingrowing toe nail) Leukocytosis Osteomyelitis of great toe of left foot Anemia in chronic illness HTN (hypertension) PAD (peripheral artery disease) Venous insufficiency Cellulitis of left toe Encounter for screening for malignant neoplasm of colon Chief Complaint WOUND BLEEDING L GREAT TOE OSTEOMYELITIS L GREAT TOE OSTEOMYELITIS L GREAT TOE OSTEOMYELITIS Amb Documentation OSTEOMYELITIS Reason for Visit Acidosis, lactic Anticoagulant long-term use Creatinine elevation IGTN (ingrowing toe nail) Leukocytosis Osteomyelitis of great toe of left foot Anemia in chronic illness HTN (hypertension) PAD (peripheral artery disease) Venous insufficiency Cellulitis of left toe Encounter for screening for malignant neoplasm of colon Chief Complaint Admit Date 3 M FU July 12, 2024 1 :20pm LIVER HEMAGIOMA August 17, 2024 12:2 4pm Reason for Visit Admit Date Hemangioma of liver July 12, 2024 1 :20pm Hyperbilirubinemia July 12, 2024 1 :20pm Chief Complaint Admit Date LIVER HEMAGIOMA August 17, 2024 12:2 4pm Chief Complaint Admit Date LIVER HEMAGIOMA August 17, 2024 12:[address] SCAN FROM [place] December 13, 2 025 2:20pm Chief Complaint Admit Date REVIEW CT SCAN FROM [place] December 13, 2 025 2:20pm RIGHT LOWER LUNG MASS December 30, 2024 8: 44am Reason for Visit Admit Date Right lower lobe lung mass December 13 2:20pm Anemia in chronic illness December 13 2:20pm Chief Complaint Admit Date REVIEW CT SCAN FROM [place] December 13, 025 2:20pm RIGHT LOWER LUNG MASS December 30, 2024 8: 44am 1 YEAR LABS - REVIEW BIOPSY RESULTS [facility] 2024 10:42am 1 YEAR LABS January 17, 2025 10: 45am Reason for Visit Admit Date Right lower lobe lung mass December 13 2:20pm Anemia in chronic illness December 13 2:20pm Right lower lobe lung mass January 17 025 10:42am Anemia in chronic illness January 17 10:42am Thrombocytopenia January 17, 2025 10: 42am Chief Complaint Admit Date REVIEW CT SCAN FROM [place] December 13, 025 2:20pm RIGHT LOWER LUNG MASS December 30, 2024 8: 44am 1 YEAR LABS - REVIEW BIOPSY RESULTS [facility] 2024 10:42am 1 YEAR LABS January 17, 2025 10: 45am POST MRI January 18, 2025 10: 38am Reason for Visit Admit Date Right lower lobe lung mass December 13 2:20pm Anemia in chronic illness December 13 2:20pm Right lower lobe lung mass January 17 025 10:42am Anemia in chronic illness January 17 10:42am Thrombocytopenia January 17, 2025 10: 42am Cirrhosis January 18, 2025 10: 38am Hemangioma of liver January 18, 2025 10: 38am Additional Source Comments (unrecognized sect ion and content) No Status Records FoundNo Status Records FoundNo Status Records FoundNo Status Records FoundNo Status Records FoundNo Status Records FoundNo Status Records Found INFORMATION SOURCE (unrecogn ized section and content) DATE CREATED AUTHOR 05/24/2018 [facility] DATE CREATED AUTHOR AUTHOR'S ORGANIZ ATION 05/24/2018 [facility] DATE CREATED AUTHOR AUTHOR'S ORGANIZ ATION 02/19/2024 [facility] ([place]) DATE CREATED AUTHOR AUTHOR'S ORGANIZ ATION 11/18/2024 [facility] DATE CREATED AUTHOR AUTHOR'S ORGANIZ ATION 04/14/2025 [facility] DATE CREATED AUTHOR AUTHOR'S ORGANIZ ATION 04/22/2025 [facility] DATE CREATED AUTHOR AUTHOR'S ORGANIZ ATION 04/27/2025 [facility] Source Comments (unrecognize d section and content) In the event this informatio n is protected by the Federal Confidentiality of Alcohol and Drug Abuse Patient Records regulations: The Federal rules restrict any use of the information to criminally investigate or prosecute any alcohol or drug abuse patient.[facility] Care Team (unrecognized sect ion and content) Care Team Personnel Name: GABRIELE VIDAL MD Position: P4 Physician - Primary Care Med Service: Active Provider Member Role: Primary Care Physician Address: Address: [address] [place] [address]- Care Team Related Persons Name: SACHA COLUNGA Care Team Personnel Name: JAY EASTON DO Position: P4 Physician - Primary Care Member Role: Primary Care Physician Address: Address: [address] [place] [address] Care Team Related Persons Name: SACHA COLUNGA Care Team Personnel Name: JAY EASTON DO Position: P4 Physician - Primary Care Med Service: Active Provider Member Role: Primary Care Physician Address: Address: [address] [facility] [address] Care Team Related Persons Name: SACHA COLUNGA Care Teams (unrecognized sec tion and content) Team Status: Active Member Role Status Dates Dr. Gabriele Vidal MD Family Provider Active Dr. Jay Easton DO Primary Care Provider Active Team Status: Active Member Role Status Dates Dr. Jay Easton DO Primary Care Provide r, Referring Provider, Other Provider Active Dr. Be Orellana DO Attending Provider Active Team Status: Inactive Member Role Status Dates Dr. Dalton Clarke DO Attending Provider, Referring Provider Active Dr. Jay Easton DO Primary Care Provider Active Team Status: Inactive Member Role Status Dates Dr. Jay Easton DO Primary Care Provide r, Attending Provider, Referring Provider Active Team Status: Inactive Member Role Status Dates Dr. Jay Easton DO Primary Care Provider Active Dr. Marcell Thompson MD Attending Provider, Referring Pro vider Active Team Status: Inactive Member Role Status Dates Dr. Jay Easton DO Primary Care Provider, Referring P rovider Active Dr. Sukhjinder Pinto MD Attending Provider Active Team Status: Active Member Role Status Dates Dr. Jay Easton DO Primary Care Provider Active Joan Laureano Attending Provider Active Team Status: Active Member Role Status Dates Dr. Jay Easton DO Primary Care Provider Active Dr. Sukhjinder Pinto MD Attending Provider, Referrin g Provider Active Team Status: Inactive Member Role Status Dates Dr. Jay Easton DO Primary Care Provider Active Dr. Sukhjinder Pinto MD Attending Provider, Referrin g Provider Active Team Status: Inactive Member Role Status Dates Dr. Jay Easton DO Primary Care Provider Active FORD Benton Attending Provider, Referring Provid er Active Dr. Dalton Clarke , DO Other Provider Active Team Status: Inactive Member Role Status Dates Dr. Jay Easton DO Primary Care Provider Active Dr. Sera Burton MD Attending Provider, Referrin g Provider Active Team Status: Inactive Member Role Status Dates Dr. Jay Easton DO Primary Care Provider Active Dr. Dalton Clarke , DO Attending Provider Active Team Status: Inactive Member Role Status Dates Dr. Jay Romar , DO Primary Care Provider Active Dr. Michael Christy MD Attending Provider, Emergency Provi geraldo Active Team Status: Active Member Role Status Dates Dr. Jay Easton DO Primary Care Provider Active Dr. Michael Christy MD Emergency Provider Active Dr. Crystal Emerson MD Admit Provider, Attending Prov ider Active Team Status: Active Member Role Status Dates Dr. Jay Easton DO Primary Care Provider Active Dr. Micheal Christy MD Emergency Provider Active Dr. Crystal Emerson MD Admit Provider, Other Provider Active Dr. Erick Lorenzo DPM Other Provider Active Dr. Behzad Glez MD Attending Provider, Other Provi geraldo Active Dr. Sera Mcdermott MD Other Provider Active Team Status: Inactive Member Role Status Dates Dr. Jay Easton DO Primary Care Provider Active Dr. Michael Christy MD Emergency Provider Active Dr. Crystal Emerson MD Admit Provider, Other Provider Active Dr. Erick Lorenzo DPM Other Provider Active Dr. Behzad Glez MD Attending Provider Active Dr. Sera Mcdermott MD Other Provider Active Team Status: Active Member Role Status Dates Dr. Jay Easton DO Primary Care Provider Active Dr. Elsa Nelson MD Attending Provider Active Dr. Crystal Emerson MD Referring Provider Active Team Status: Active Member Role Status Dates Dr. Jay Easton DO Primary Care Provider Active Melva Serrano Attending Provider Active Team Status: Active Member Role Status Dates Dr. Jay Easton DO Primary Care Provider, Referring P rovider Active Dr. Rashad Bronson , DO Attending Provider, Other Prov ider Active Team Status: Inactive Member Role Status Dates Dr. Jay Easton DO Primary Care Provider, Referring P rovider Active Dr. Rashad Bronson , DO Attending Provider Active Team Status: Inactive Member Role Status Dates Dr. Jay Easton DO Primary Care Provider Active MINDY RushingM Attending Provider, Referrin g Provider Active Team Status: Active Member Role Status Dates Dr. Jay Easton DO Primary Care Provider Active Team Status: Inactive Member Role Status Dates Dr. Jay Easton DO Primary Care Provider Active Start: June 02, 2024 End: June 02, 2024 Dr. Akiko Bergeron MD Attending Provider Active Start: June 02, 2024 End: June 02, 2024 Dr. Akiko Bergeron MD Referring Provider Active Start: June 02, 2024 End: June 02, 2024 Team Status: Inactive Member Role Status Dates Dr. Jay Easton DO Primary Care Provider Active Start: June 04, 2024 End: June 04, 2024 Dr. Dalton Clarke DO Attending Provider Active Start: June 04, 2024 End: June 04, 2024 Dr. Dalton Clarke DO Referring Provider Active Start: June 04, 2024 End: June 04, 2024 Team Status: Inactive Member Role Status Dates Dr. Jay Easton DO Primary Care Provider Active Start: July 12, 2024 End: July 12, 2024 Dr. Jay Easton DO Referring Provider Active St art: July 12, 2024 End: July 12, 2024 Dr. Behzad Glez MD Attending Provider Active Start: July 12, 2024 End: July 12, 2024 Team Status: Inactive Member Role Status Dates Dr. Jay Easton DO Primary Care Provider Active Start: August 17, 2024 End: August 17, 2024 Dr. Behzad Glez MD Attending Provider Active Start: August 17, 2024 End: August 17, 2024 Dr. Behzad Glez MD Referring Provider Active Start: August 17, 2024 End: August 17, 2024 Dr. Dalton Clarke DO Other Provider Active St art: August 17, 2024 End: August 17, 2024 Team Status: Inactive Member Role Status Dates Dr. Jay Easton DO Primary Care Provider Active Start: November 30, 2024 End: November 30, 2024 Dr. Dalton Clarke DO Attending Provider Active Start: November 30, 2024 End: November 30, 2024 Dr. Dalton Clarke DO Referring Provider Active Start: November 30, 2024 End: November 30, 2024 Team Status: Active Member Role/Relationship Status Dates Dr. Jay Easton DO Primary Care Provider Active Team Status: Inactive Member Role/Relationship Status Dates Dr. Jay Easton DO Primary Care Provider Active Start: August 17, 2024 End: August 17, 2024 Dr. Behzad Glez MD Attending Provider Active Start: August 17, 2024 End: August 17, 2024 Dr. Behzad Glez MD Referring Provider Active Start: August 17, 2024 End: August 17, 2024 Dr. Dalton Clarke DO Other Provider Active St art: August 17, 2024 End: August 17, 2024 Team Status: Inactive Member Role/Relationship Status Dates Dr. Jay Easton DO Primary Care Provider Active Start: November 30, 2024 End: November 30, 2024 Dr. Dalton Clarke DO Attending Provider Active Start: November 30, 2024 End: November 30, 2024 Dr. Dalton Clarke DO Referring Provider Active Start: November 30, 2024 End: November 30, 2024 Team Status: Inactive Member Role/Relationship Status Dates Dr. Jay Easton DO Primary Care Provider Active Start: December 13, 2024 End: December 13, 2024 Dr. Jay Easton DO Referring Provider Active St art: December 13, 2024 End: December 13, 2024 Dr. Sukhjinder Pinto MD Attending Provider Active Start: December 13, 2024 End: December 13, 2024 Team Status: Inactive Member Role/Relationship Status Dates Dr. Jay Easton DO Primary Care Provider Active Start: November 30, 2024 End: November 30, 2024 Dr. Dalton Clarke DO Attending Provider Active Start: November 30, 2024 End: November 30, 2024 Dr. Dalton Clarke DO Referring Provider Active Start: November 30, 2024 End: November 30, 2024 Team Status: Inactive Member Role/Relationship Status Dates Dr. Jay Easton DO Primary Care Provider Active Start: December 13, 2024 End: December 13, 2024 Dr. Jay Easton DO Referring Provider Active St art: December 13, 2024 End: December 13, 2024 Dr. Sukhjinder Pinto MD Attending Provider Active Start: December 13, 2024 End: December 13, 2024 Team Status: Inactive Member Role/Relationship Status Dates Dr. Jay Easton DO Primary Care Provider Active Start: December 30, 2024 End: December 30, 2024 Dr. Sukhjinder Pinto MD Attending Provider Active Start: December 30, 2024 End: December 30, 2024 Dr. Sukhjinder Pinto MD Referring Provider Active Start: December 30, 2024 End: December 30, 2024 Team Status: Inactive Member Role/Relationship Status Dates Dr. Jay Easton DO Primary Care Provider Active Start: January 17, 2025 End: January 17, 2025 Dr. Jay Easton DO Referring Provider Active St art: January 17, 2025 End: January 17, 2025 Dr. Sukhjinder Pinto MD Attending Provider Active Start: January 17, 2025 End: January 17, 2025 Team Status: Active Member Role/Relationship Status Dates Dr. Jay Easton DO Primary Care Provider Active Start: January 17, 2025 Dr. Sukhjinder Pinto MD Attending Provider Active Start: January 17, 2025 Dr. Sukhjinder Pinto MD Referring Provider Active Start: January 17, 2025 Team Status: Inactive Member Role/Relationship Status Dates Dr. Jay Easton DO Primary Care Provider Active Start: January 18, 2025 End: January 18, 2025 Dr. Jay Easton DO Referring Provider Active St art: January 18, 2025 End: January 18, 2025 Dr. Behzad Glez MD Attending Provider Active Start: January 18, 2025 End: January 18, 2025 Team Status: Active Member Role/Relationship Status Dates Dr. Jay aEston DO Primary care physician Active Team Status: Inactive Member Role/Relationship Status Dates Dr. Jay Easton DO Primary care physician Active Start: November 30, 2024 End: November 30, 2024 Dr. Dalton Clarke DO Attending physician Active Start: November 30, 2024 End: November 30, 2024 Dr. Dalton Clarke DO Referring Provider Active Start: November 30, 2024 End: November 30, 2024 Team Status: Inactive Member Role/Relationship Status Dates Dr. Jay Easton DO Primary care physician Active Start: December 13, 2024 End: December 13, 2024 Dr. Jay Easton DO Referring Provider Active St art: December 13, 2024 End: December 13, 2024 Dr. Sukhjinder Pinto MD Attending physician Active Start: December 13, 2024 End: December 13, 2024 Team Status: Inactive Member Role/Relationship Status Dates Dr. Jay Easton DO Primary care physician Active Start: December 30, 2024 End: December 30, 2024 Dr. Sukhjinder Pinto MD Attending physician Active Start: December 30, 2024 End: December 30, 2024 Dr. Sukhjinder Pinto MD Referring Provider Active Start: December 30, 2024 End: December 30, 2024 Team Status: Inactive Member Role/Relationship Status Dates Dr. Jay Easton DO Primary care physician Active Start: January 17, 2025 End: January 17, 2025 Dr. Jay Easton DO Referring Provider Active St art: January 17, 2025 End: January 17, 2025 Dr. Sukhjinder Pinto MD Attending physician Active Start: January 17, 2025 End: January 17, 2025 Team Status: Active Member Role/Relationship Status Dates Dr. Jay Easton DO Primary care physician Active Start: January 17, 2025 Dr. Sukhjinder Pinto MD Attending physician Active Start: January 17, 2025 Dr. Sukhjinder Pinto MD Referring Provider Active Start: January 17, 2025 Team Status: Inactive Member Role/Relationship Status Dates Dr. Jay Easton DO Primary care physician Active Start: January 18, 2025 End: January 18, 2025 Dr. Jay Easton DO Referring Provider Active St art: January 18, 2025 End: January 18, 2025 Dr. Behzad Glez MD Attending physician Active Start: January 18, 2025 End: January 18, 2025 Team Status: Inactive Member Role/Relationship Status Dates Dr. Jay Easton DO Primary care physician Active Start: February 15, 2025 End: February 15, 2025 Dr. Sami Beckwith MD Attending physician Active Start: February 15, 2025 End: February 15, 2025 Dr. Sami Beckwith MD Referring Provider Active Start: February 15, 2025 End: February 15, 2025 Goals (unrecognized section and content) Goals may be documented in a n alternate section FOR RECORDS PERTAINING TO PATIENTS WHO ARE [...] BE BASED ON THE PRIMARY CLINICAL RECORDS. [facility] provides no warranty or guarantee of the accuracy or completeness of information in this document.
[2025-06-03 11:34] LABS: PTHIN 32 pg/mL (11-61)
[2025-06-03 11:43] LABS: AST(SGOT) 15 U/L (<=37); Alanine Aminotransfer ALT/SGPT 8 U/L (<=46); Albumin, Serum 3.6 g/dL (3.4-4.8); Alkaline Phosphatase 116 U/L (40-129); Anion Gap 8 (5-15); BUN 14 mg/dL (4-19); BUN/Creat Ratio 12.7 RATIO (10-20); Calcium,Total 9.2 mg/dL (7.6-11.0); Carbon Dioxide 28.8 mmol/L (21.0-32.0); Chloride 102 mmol/L (98-108); Globulin 2.8 g/dL (2.2-4.2); Glucose 90 mg/dL (70-99); Magnesium 2.1 mg/dL (1.5-2.2); Potassium 3.5 mmol/L (3.3-5.1)
== END | disposition home or self-care (01) ==
LOC: LAB 10:33
PROVIDERS: PCP Student in an Organized Health Care Education/Training Program; Referring Provider Internal Medicine Endocrinology, Diabetes & Metabolism; Visit Provider Internal Medicine Endocrinology, Diabetes & Metabolism
DX: E89.0 Postprocedural hypothyroidism (principal); E21.1 Secondary hyperparathyroidism, not elsewhere classified
CPT/HCPCS: 36415; 80053; 83735; 83970; 84443